=== PATIENT | male | born 1950 | race Caucasian/White ===

== ENCOUNTER 2017-06-17 11:08 | Observation (INO) | payer OTHER ==
[2017-06-17] MEDS ORDERED: LEVALBUTEROL 1.25 MG/3 ML NEB ONE (11:20)
[2017-06-17] MEDS ORDERED: FUROSEMIDE 40 MG/4 ML VIAL ONE (11:20)
[2017-06-17] MEDS ORDERED: NITROGLYCERIN 1 GM PKT TD ONE (11:33)
[2017-06-17 12:03] LABS: Absolute Lymphocytes (CBC) 1.6 K/uL (0.7-4.9); Absolute Neutrophil 8.3 K/uL (1.8-8.0); Basophils % 0.7 % (0-1.3); Eosinophils % 0.2 % (0-4.4); Hematocrit 31.6 % (39.6-49.0); Lymphocytes % 14.5 % (15.3-44.8); MCH 17.5 pg (27.0-35.0); MCV 60.8 fL (80-100); MPV 9.4 fL (7.6-11.3); Monocytes % 9.3 % (3.3-12.3); RBC Red Blood Cell Count 5.19 M/uL (4.33-5.43)
--- NOTE | 2017-06-17 12:09 | RAD REPORT ---
EXAM DESCRIPTION: RAD - Chest Single View - 06/17/2017 12:01 pm CLINICAL HISTORY: Cough, dyspnea COMPARISON: 05/03/2017 FINDINGS: Portable technique limits examination quality. Moderate pulmonary edema is present. The heart is moderately enlarged in size. Trace pleural fluid. N o displaced fractures. IMPRESSION: Moderate CHF/ volume overload.
--- NOTE | 2017-06-17 12:54 | EDPHYS ---
Physician Documentation [facility] Name: Mark Terrell Age: 66 yrs Sex: Male : 1950 Arrival Date: 06/17/2017 Time: 11:07 Bed 5 Private MD: ED Physician Ryan Vasquez HPI: 06/17 11:15 This 66 yrs old Male presents to ER via Unassigned with complaints of rn Breathing Difficulty. 11:15 The patient has shortness of breath at rest, with light activity. Onset: The rn symptoms/episode began/occurred 1 week(s) ago. Duration: The symptoms are continuous. The patient's shortness of breath is aggravated by exertion, light activity, supine position, talking, walking. Severity of symptoms: At their worst the symptoms were moderate in the emergency department the symptoms are unchanged. The patient has experienced similar episodes in the past. The patient has not recently seen a physician. States ran out of lasix 4-5 days ago, increased swelling and sob, also with COPD, no oxygen at home. . Historical: - Allergies: 11:17 Benadryl; sv 11:17 PENICILLINS; sv - Home Meds: 11:17 Albuterol Nebulizer [Active]; Lasix Oral [Active]; sv - PMHx: 11:17 Aneurysm; BRAIN; CHF; COPD; Hypertension; Prostate cancer; sv - Family history:: not pertinent. - Social history:: Smoking status: Patient uses tobacco products, smokes one pack cigarettes per day. - Hospitalizations: : No recent hospitalization is reported. ROS: 11:15 Constitutional: Negative for fever, chills, and weight loss, Eyes: Negative for injury, rn pain, redness, and discharge, Cardiovascular: Negative for chest pain, palpitations Respiratory: Negative for pleuritic chest pain Abdomen/GI: Negative for abdominal pain, nausea, vomiting, diarrhea, and constipation, Back: Negative for injury and pain, MS/Extremity: Negative for injury and deformity, Skin: Negative for injury, rash, and discoloration, Neuro: Negative for headache, numbness, tingling, and seizure. Exam: 11:15 Constitutional: This is a well developed, well nourished patient who is awake, alert, rn and in no acute distress. Sitting upright with mild tachypnea. Head/Face: Normocephalic, atraumatic. Eyes: Pupils equal round and reactive to light, extra-ocular motions intact. Lids and lashes normal. Conjunctiva and sclera are non-icteric and not injected. Cornea within normal limits. Periorbital areas with no swelling, redness, or edema. Neck: Trachea midline, no thyromegaly or masses palpated, and no cervical lymphadenopathy. Supple, full range of motion without nuchal rigidity, or vertebral point tenderness. No Meningismus. Cardiovascular: Regular rate and rhythm with a normal S1 and S2. No gallops, murmurs, or rubs. Normal PMI, no JVD. No pulse deficits. Respiratory: + coarse breath sounds bilateral bases R>L with faint wheezing, mild tachypnea Abdomen/GI: Soft, non-tender, with normal bowel sounds. No distension or tympany. No guarding or rebound. No evidence of tenderness throughout. MS/ Extremity: Pulses equal, no cyanosis. Neurovascular intact. Full, normal range of motion. Equal circumference. 3+ pitting edema to bilateral knees. Neuro: Awake and alert, GCS 15, oriented to person, place, time, and situation. Cranial nerves II-XII grossly intact. Motor strength 5/5 in all extremities. Sensory grossly intact. Cerebellar exam normal. Vital Signs: 11:11 BP 204 / 136; Pulse 98; Resp 18; Pulse Ox 96% on R/A; ag 11:15 Temp 98(O); sv 11:49 BP 182 / 125; Pulse 91; Resp 20; Pulse Ox 96% on R/A; sv 12:48 BP 171 / 110; Pulse 90; Resp 20; Pulse Ox 93% on R/A; mh5 13:42 BP 188 / 125; Pulse 99; Resp 18; Pulse Ox 100% ; sv 15:08 BP 198 / 104; Pulse 86; Resp 20; Pulse Ox 95% on R/A; sv MDM: 11:11 Patient medically screened. rn 12:52 Differential diagnosis: Anemia Anxiety Reaction Bronchitis CHF exacerbation, Chronic rn Obstructive Pulmonary Disease Myocardial Infarction Pneumothorax pulmonary edema, reactive airway disease. Data reviewed: vital signs, nurses notes, lab test result(s), EKG, radiologic studies, plain films, and as a result, I will admit patient. Counseling: I had a detailed discussion with the patient and/or guardian regarding: the historical points, exam findings, and any diagnostic results supporting the discharge/admit diagnosis, lab results, radiology results, the need for further work-up and treatment in the hospital. Response to treatment: the patient's symptoms have mildly improved after treatment, and as a result, I will admit patient. Admission orders: after a detailed discussion of the patient's condition and case, the admit orders are written by me. 06/17 11:12 Order name: Blood Culture Adult (2) rn 06/17 11:12 Order name: BMP rn 06/17 11:12 Order name: BNP rn 06/17 11:12 Order name: CBC with Diff rn 06/17 11:12 Order name: Troponin (emerg Dept Use Only) rn 06/17 11:39 Order name: Basic Metabolic Panel [facility] 06/17 11:12 Order name: XRAY CXR (1 view); Complete Time: 12:10 rn 06/17 11:39 Order name: Blood Culture [facility] 06/17 11:39 Order name: BNP B-Type Natriuretic Peptide [facility] 06/17 11:39 Order name: CBC with Automated Diff [facility] 06/17 11:39 Order name: Troponin (Emerg Dept Use Only); Complete Time: 12:41 EDMS 06/17 12:04 Order name: CBC Smear Scan [facility] 06/17 13:16 Order name: Manual Differential [facility] 06/17 11:12 Order name: EKG; Complete Time: 11:42 rn 06/17 11:12 Order name: Cardiac monitoring; Complete Time: 12:13 rn 06/17 11:12 Order name: EKG - Nurse/Tech; Complete Time: 12:13 rn 06/17 11:12 Order name: IV Saline Lock; Complete Time: 12:14 rn 06/17 11:12 Order name: Labs collected and sent; Complete Time: 12:14 rn 06/17 11:12 Order name: O2 Per Protocol; Complete Time: 12:14 rn 06/17 11:12 Order name: O2 Sat Monitoring; Complete Time: 12:14 rn Administered Medications: 11:32 Drug: Lasix 40 mg Route: IVP; Site: left antecubital; sv 12:13 Follow up: Response: No adverse reaction sv 11:32 Drug: Xopenex 1.25 mg Route: Inhalation; sv 11:32 Drug: Nitro-Bid Ointment 2 % 1 inches Route: Transdermal; Site: anterior chest wall; sv Disposition: 06/17/17 12:53 Hospitalization ordered by Bibi De León for Observation. Preliminary diagnosis are Unspecified combined systolic (congestive) and diastolic (congestive) heart failure, Chronic obstructive pulmonary disease with (acute) exacerbation, Dyspnea, unspecified. - Bed requested for Telemetry/MedSurg (observation). - Status is Observation. sv - Condition is Stable. - Problem is an acute exacerbation. - Symptoms have improved. UTI on Admission? No Signatures: Dispatcher [employer] EDMS Nati Marquez RN RN sv Woody, Diana, RN RN Ryan Vasquez MD MD corner bead operator: (The following items were deleted from the chart) 11:45 11:41 Chest Single View ordered. [facility]
--- NOTE | 2017-06-17 12:54 | ER ---
Nurse's Notes [facility] Name: Mark Terrell Age: 66 yrs Sex: Male : 1950 Arrival Date: 06/17/2017 Time: 11:07 Bed 5 Private MD: Diagnosis: Unspecified combined systolic (congestive) and diastolic (congestive) heart failure;Chronic obstructive pulmonary disease with (acute) exacerbation;Dyspnea, unspecified Presentation: 06/17 11:04 Presenting complaint: EMS states: c/o dyspnea. Pt has been out of Lasix for 4 days. 4+ sv pitting edema BLE. Rhonchi to right lung and left lung clear. A \\T\\ A treatment. BP 195/126 94% RA BS-195 Temp 98.7 20G L AC. Transition of care: patient was not received from another setting of care. Onset of symptoms was June 17, 2017. Care prior to arrival: Medication(s) given: Albuterol Neb x 1, Atrovent Neb x 1, IV initiated. 20 GA, in the right antecubital area, Glucose check: 195 Med neb given. 11:04 Method Of Arrival: EMS: [facility] sv 11:04 Acuity: ARIEL 2 sv Triage Assessment: 11:10 General: Appears uncomfortable, slender, Behavior is calm, cooperative, appropriate for sv age. Pain: Denies pain. EENT: No signs and/or symptoms were reported regarding the EENT system. Neuro: Level of Consciousness is awake, alert, obeys commands, Oriented to person, place, time, situation, Moves all extremities. Full function Speech is normal. Cardiovascular: Heart tones S1 S2 present Patient's skin is warm and dry. Pulses are 3+ in right radial artery and left radial artery Chest pain is denied. Respiratory: Reports shortness of breath at rest on exertion since "couple of days" cough that is non-productive, labored breathing Airway is patent Respiratory effort is even, labored, Respiratory pattern is symmetrical, tachypnea Breath sounds are coarse bilaterally. Onset: The symptoms/episode began/occurred "couple of days ago", the patient has moderate shortness of breath. GI: No signs and/or symptoms were reported involving the gastrointestinal system. Derm: Skin is normal. Historical: - Allergies: 11:17 Benadryl; sv 11:17 PENICILLINS; sv - Home Meds: 11:17 Albuterol Nebulizer [Active]; Lasix Oral [Active]; sv - PMHx: 11:17 Aneurysm; BRAIN; CHF; COPD; Hypertension; Prostate cancer; sv - Family history:: not pertinent. - Social history:: Smoking status: Patient uses tobacco products, smokes one pack cigarettes per day. - Hospitalizations: : No recent hospitalization is reported. Screenin:10 Abuse screen: Denies threats or abuse. Denies injuries from another. Nutritional sv screening: No deficits noted. Tuberculosis screening: No symptoms or risk factors identified. Fall Risk None identified. Assessment: 11:30 Reassessment: See triage assessment. sv 12:32 Reassessment: Patient appears in no apparent distress at this time. No changes from sv previously documented assessment. Patient and/or family updated on plan of care and expected duration. Pain level reassessed. Patient is alert, oriented x 3, equal unlabored respirations, skin warm/dry/pink. 13:23 Reassessment: Patient appears in no apparent distress at this time. No changes from sv previously documented assessment. Patient and/or family updated on plan of care and expected duration. Pain level reassessed. Patient is alert, oriented x 3, equal unlabored respirations, skin warm/dry/pink. 13:42 Reassessment: Dr De León at the bedside. sv 15:08 Reassessment: Patient appears in no apparent distress at this time. Patient and/or sv family updated on plan of care and expected duration. Pain level reassessed. Patient is alert, oriented x 3, equal unlabored respirations, skin warm/dry/pink. Angelique METZ to call back for report. Vital Signs: 11:11 BP 204 / 136; Pulse 98; Resp 18; Pulse Ox 96% on R/A; ag 11:15 Temp 98(O); sv 11:49 BP 182 / 125; Pulse 91; Resp 20; Pulse Ox 96% on R/A; sv 12:48 BP 171 / 110; Pulse 90; Resp 20; Pulse Ox 93% on R/A; mh5 13:42 BP 188 / 125; Pulse 99; Resp 18; Pulse Ox 100% ; sv 15:08 BP 198 / 104; Pulse 86; Resp 20; Pulse Ox 95% on R/A; sv ED Course: 11:04 Maintain EMS IV. Dressing intact. Good blood return noted. Site clean \\T\\ dry. Gauge \\T\\ sv site: 20G L AC. 11:07 Patient arrived in ED. sv 11:07 Nati Marquez RN is Primary Nurse. sv 11:07 Ryan Vasquez MD is Attending Physician. iw 11:10 Arm band placed on right wrist. sv 11:10 Patient has correct armband on for positive identification. Placed in gown. Bed in low sv position. Call light in reach. Side rails up X2. Pulse ox on. NIBP on. Door closed. Head of bed elevated. 11:16 Triage completed. sv 11:34 EKG done, by restoration technician. reviewed by Ryan Vasquez MD. vh 11:49 X-ray(s) taken. sv 11:54 X-ray completed. Portable x-ray completed in exam room. Patient tolerated procedure sw well. 11:57 XRAY CXR (1 view) In Process Unspecified. EDMS 12:53 Bibi De León MD is Hospitalizing Provider. rn 13:24 Awaiting bed assignment. sv 15:24 No provider procedures requiring assistance completed. Patient admitted, IV remains in sv place. intact. Administered Medications: 11:32 Drug: Lasix 40 mg Route: IVP; Site: left antecubital; sv 12:13 Follow up: Response: No adverse reaction sv 11:32 Drug: Xopenex 1.25 mg Route: Inhalation; sv 11:32 Drug: Nitro-Bid Ointment 2 % 1 inches Route: Transdermal; Site: anterior chest wall; sv Output: 12:02 Urine: 600ml (Voided); Total: 600ml. sv 12:48 Urine: 600ml (Voided); Total: 1200ml. ag 14:13 Urine: 800ml (Voided); Total: 2000ml. ag Outcome: 12:53 Decision to Hospitalize by Provider. rn 15:25 Admitted to Tele accompanied by tech, via stretcher, room 225, with chart, Report sv called to Angelique METZ 15:25 Condition: stable 15:25 Instructed on the need for admit. 15:36 Patient left the ED. sv Signatures: Dispatcher [employer] EDMS Nati Marquez RN RN sv Williams, Irene, RN RN iw Nieto, Roman, MD MD rn Harrell, Venessa Melissa Molina Shannon sw Martinez, Maria [facility] Corrections: (The following items were deleted from the chart) 13:23 11:04 Presenting complaint: EMS states: c/o dyspnea. Pt has been out of Lasix for 4 sv days. 4+ pitting edema BLE. Rhonchi to right lung and left lung clear. A \\T\\ A treatment. BP 195/126 94% RA BS-195 Temp 98.7 20G R AC sv 15:25 15:08 Reassessment: Patient appears in no apparent distress at this time. Patient sv and/or family updated on plan of care and expected duration. Pain level reassessed. Patient is alert, oriented x 3, equal unlabored respirations, skin warm/dry/pink. sv
[2017-06-17] MEDS ORDERED: ACETAMINOPHEN 500 MG TAB PO PRN (13:14)
[2017-06-17] MEDS ORDERED: ALBUTEROL 2.5 MG/3 ML NEB SOL NEB PRN (13:14)
[2017-06-17] MEDS ORDERED: ONDANSETRON 4 MG/2 ML VIAL IV PRN (13:14)
[2017-06-17] MEDS ORDERED: IPRATROPIUM BROM 0.5MG/2.5ML NEB PRN (13:14)
[2017-06-17 13:15] LABS: Platelet Estimate ADEQ
[2017-06-17 13:16] LABS: Anisocytosis 2+; Blood Morphology Comment NOTED (NOT SEEN); Elliptocytes 1+; Hypochromasia 2+
[2017-06-17 13:38] LABS: Potassium 3.6 mEq/L (3.6-5.0)
[2017-06-17] MEDS ORDERED: GLUCAGON 1 MG/VIAL IM PRN (14:21)
[2017-06-17] MEDS ORDERED: D50W 25 GM/50 ML SYRINGE IV PRN (14:21)
[2017-06-17] MEDS: INSULIN -REGULAR HUMAN 50 UNIT/0.5 ML ML SQ SCH ×2 (16:12→21:00)
[2017-06-17] MEDS: METHYLPREDNISOLONE 40 MG INJ IV SCH (16:12)
[2017-06-17] MEDS: FUROSEMIDE 40 MG/4 ML VIAL IV SCH (16:13)
--- NOTE | 2017-06-17 16:28 | EKG ---
Test Date: 2017-06-17 Test Time: 11:28:40 It Program Auditor: MARYELLEN MEASUREMENT RESULTS: Intervals: Rate: 90 MI: 142 QRSD: 112 QT: 416 QTc: 508 [place]: P: 80 MI: 142 QRS: 93 T: 49 INTERPRETIVE STATEMENTS: Sinus rhythm with occasional premature ventricular complexes Rightward axis Prolonged QT Abnormal ECG Compared to ECG 05/03/2017 06:32:45 Ventricular premature complex(es) now present Right-axis deviation now present Short MI interval no longer present Electronically Signed On 06-17-17 16:27:29 CDT by Jitendra Willams
[2017-06-17] MEDS ORDERED: ENOXAPARIN 40 MG/0.4 ML SQ SCH (17:00)
[2017-06-17 17:02] VITALS: BMI 26.9
[2017-06-17] MEDS: HYDRALAZINE HCL 20 MG/ML VIAL IV PRN ×2 (17:17→23:27)
[2017-06-17] MEDS ORDERED: POTASSIUM CL SA 10 MEQ TAB PO ONE (17:30)
[2017-06-17 18:24] LABS: Urine Appearance CLEAR; Urine Bilirubin NEGATIVE (NEG); Urine Blood TRACE (NEG); Urine Color YELLOW; Urine Glucose NEGATIVE (NEG); Urine Microscopic Reflex ORDER UMIC; Urine Protein TRACE (NEG); Urine Specific Gravity 1.015 (1.005-1.030); Urine Urobilinogen 0.2 mg/dL (0.2-1.0)
[2017-06-17 18:28] LABS: Urine Bacteria <20 /HPF (NONE SEEN); Urine Culture Reflex Order NOT NEEDED; Urine RBC <5 /HPF (NONE SEEN)
[2017-06-17] MEDS: METOPROLOL TAR 50 MG TAB PO SCH (20:24)
[2017-06-17] MEDS: MELATONIN 5 MG TABLET PO SCH (23:46)
[2017-06-18] MEDS: METHYLPREDNISOLONE 40 MG INJ IV SCH ×2 (01:00→09:16)
--- NOTE | 2017-06-18 01:12 | HP ---
Date of Admission: 06/17/2017 Primary Care Physician: HUMAIRA. Consultants: Dr. Porter, Cardiology. Code Status: Full. Chief Complaint: Shortness of breath. History Of Present Illness: The patient is a 66-year-old male with past medical history of COPD, congestive heart failure with EF 45%, systolic dysfunction, history of prostate cancer, hypertension, brain aneurysm, noncompliance, diabetes, and multiple other comorbid conditions, who was recently admitted to the [facility] and was diuresed for heart failure and discharged. The patient states that they were supposed to mail him his Lasix; however, he has run out over the past couple of weeks and since then has been short of breath. The patient also reports increased swelling of his legs. The patient denies any chest pain. The patient's symptoms are constant, moderate, and progressively worsening. The patient came into the ER for further evaluation. His stress of breath is improved with sitting up right. His workup revealed white count of 11. His chest x-ray showed moderate CHF, volume overload. The patient was then referred for admission. He was given Lasix 40 mg IV x1. When seen in the ER, the patient was awake, alert, and oriented x3, in some mild distress. Past Medical History: Diabetes, history of prostate cancer, hypertension, history of brain aneurysm, CHF, systolic dysfunction, COPD, noncompliance, coronary artery disease, GERD, anemia, and hyperlipidemia. Surgical History: Surgery for brain aneurysm, chronic stent x3 to LAD and RCA in February 2016, prostate surgery, toe surgery, right great toe when he was a child, and heart catheterization with 3 stents, LAD and RCA. Allergies: TO BENADRYL AND PENICILLIN. Medications: Reviewed. Social History: The patient smokes half a pack per day and previously was smoking 3 packs per day. The patient has been smoking for the past 50 years. No alcohol use or illicit drug use. The patient lives at home, states that there is a young couple that lives with him, mostly independent. Does not use any assistive ambulatory devices. Family History: Father had brain cancer. Mother had pancreatic cancer. Brother had lung cancer. Review of Systems: An 11-point system reviewed, negative except as per HPI. Physical Examination: Vital Signs: Temperature 98, heart rate 98, blood pressure 204/136, respirations 18, and O2 96% on room air. General: Awake, alert, and oriented x3, in some mild distress. Appears older than stated age, ill-appearing male. HEENT: Normocephalic, atraumatic. PERRLA. EOMI. Moist mucous membranes. Poor dentition. Oropharynx is clear. Conjunctivae anicteric. Neck: Supple. Trachea midline. CV: S1 and S2. Peripheral pulses are weak bilaterally. No murmurs. Respiratory: Diminished breath sounds. Some crackles heard at the bases. No wheezing. The patient is slightly tachypneic. No use of accessory muscles. Gastrointestinal: Abdomen is soft, nontender, and nondistended. Positive bowel sounds. No guarding or rigidity. Extremities: No clubbing, cyanosis. The patient does have lower extremity edema. Skin: No rashes. Normal skin turgor. Psych: Mood is okay. Affect is full. Insight and judgment are fair. Neuro: Cranial nerves 2-12 intact grossly. No focal neurological deficits. Strength is 5/5 in bilateral upper and lower extremities. Sensation intact to light touch. Laboratory Data: Sodium 137, potassium 2.6, chloride 108, CO2 20, BUN 14, creatinine 1.19, glucose 186, and calcium 8.5. Troponin 0.05. BNP 1652. WBC 11, H and H 9.1 and 31.6, and platelets 256, neutrophils 75%. Chest x-ray shows moderate CHF and volume overload, personally reviewed. Assessment: A 66-year-old male with; 1. Acute congestive heart failure exacerbation with systolic dysfunction. We will continue with congestive heart failure guidelines, IV diuresis with Lasix. We will consult Cardiology. The patient patient's last echocardiogram was in January of 2017. EF was 45-49%, showed ventricular hypertrophy and pulmonary hypertension. 2. Acute chronic obstructive pulmonary disease exacerbation. We will continue with breathing treatments and monitor oxygenation. 3. Mild elevation of troponin, likely secondary to above. 4. Microcytic hypochromic anemia, likely secondary to iron deficiency. The patient does need colonoscopy as an outpatient to rule out any sort of colon malignancy as a cause of this anemia. 5. Diabetes mellitus type 2 with hyperglycemia without long-term use of insulin. We will start him on sliding scale insulin. 6. History of prostate cancer. 7. Uncontrolled hypertension. We will resume home medications, use p.r.n. medications. 8. History of brain aneurysm, status post surgery. 9. Nicotine dependence with cigarette smoking, counseled. 10. Noncompliance. 11. Coronary artery disease, poarch artery and poarch heart, status post stents without angina. 12. Gastroesophageal reflux disease without esophagitis. Continue PPI. 13. Hyperlipidemia, statin. 14. GI and deep venous thrombosis prophylaxis addressed. Plan: Admit the patient to med-surg, place as observation. No living will or medical power of trust and estates attorney SCOTTY Voice ID: [id number] [email or web address]
[2017-06-18 02:19] VITALS: O2SAT 93
[2017-06-18 05:15] LABS: Absolute Lymphocytes (CBC) 1.1 K/uL (0.7-4.9); Absolute Monocytes 0.6 K/uL (0.1-1.3); Absolute Neutrophil 8.1 K/uL (1.8-8.0); Basophils % 0.3 % (0-1.3); Lymphocytes % 10.8 % (15.3-44.8); MCH 17.8 pg (27.0-35.0); MCV 60.5 fL (80-100); MPV 9.4 fL (7.6-11.3); Monocytes % 6.3 % (3.3-12.3); RBC Red Blood Cell Count 5.45 M/uL (4.33-5.43)
[2017-06-18 05:41] LABS: Potassium 4.9 mEq/L (3.6-5.0)
[2017-06-18] MEDS: HYDRALAZINE HCL 20 MG/ML VIAL IV PRN (05:55)
[2017-06-18] MEDS: INSULIN -REGULAR HUMAN 50 UNIT/0.5 ML ML SQ SCH (07:30)
[2017-06-18] MEDS ORDERED: CLOPIDOGREL 75 MG TABLET PO SCH (09:00)
[2017-06-18] MEDS ORDERED: ASPIRIN EC 81 MG TAB PO SCH (09:00)
[2017-06-18] MEDS ORDERED: LISINOPRIL 20 MG TAB PO SCH (09:00)
--- NOTE | 2017-06-18 09:09 | RAD REPORT ---
EXAM DESCRIPTION: RAD - Chest Pa And Lat (2 Views) - 06/18/2017 6:35 am CLINICAL HISTORY: CHF COMPARISON: 06/17/2017 FINDINGS: Since the prior study, the pulmonary edema pattern has significantly improved. Trace pleur al fluid persists. The heart is moderately enlarged in size. No displaced fractures. IMPRESSION: Significant improvement in CHF pattern since prior study.
[2017-06-18] MEDS: METOPROLOL TAR 50 MG TAB PO SCH (09:17)
[2017-06-18] MEDS: FUROSEMIDE 40 MG/4 ML VIAL IV SCH (09:17)
--- NOTE | 2017-06-18 14:37 | CON ---
Chief Complaint: Dyspnea. History Of Present Illness: Mr. Terrell spent several days in the hospital at the [facility] in [place]. Migel soliman was discharged. He was given some medicines for congestive heart failure. He was 1 of numerous ad missions, he has had for volume overload. He was given diuretics to take. He ran out of the [employer]. He does not have the means to purchase any thing, he was waiting on a mail order medicines to co me to his house. They never came, so he spent more than a week without any of the medicines he was d ischarged on, developed pulmonary edema, and came to our emergency room. This is one of numerous adm issions similar to this where Mr. Terrell be unable to obtain medicines and come to the ER for peg tannick as his only option. He is aware that some of the medicines he needs does cost a few dollars, b ut he says he has 90 cents to his name and cannot afford even 4-dollar prescriptions. Physical Examination: General: He is alert, oriented. He is breathing about 20 times per minute, not laboring. Lungs: Reveal some mild basilar crackles. Heart: Reveals a laterally displaced, apical impulse. There seems to be an S3 gallop. No significa nt murmur. Extremities: Diminished distal pulses. Laboratory Data: Chest x-ray reveals cardiomegaly, mild interstitial edema. His hemoglobin is just 9.7. He has had a troponin level of 0.04, which is not unusual with volume overload, cardiac strain conditions. I do not think it indicates an acute coronary syndrome. Recommendation: He is on no home medications. He should be on a low dose of a beta-vlad strong d iuretics, a low dose of an PAWEL inhibitor or angiotensin receptor vlad and aspirin and a statin. Migel soliman has a history of intracoronary stents, history of depressed ejection fraction. He is improving on the present medications being administered by Dr. De León. Thank you very much for your kind referral of Mr. Terrell. I will follow him with you. WAYNE/MARY ANN Voice ID: [id number] Report ID: [id number]
[2017-06-18 15:06] VITALS: BP 155/72; TEMP 98.4
--- NOTE | 2017-06-19 14:28 | DS ---
Date of Discharge: 06/18/2017 Appeals Referee: Dr. Porter with Cardiology. Discharge Diagnoses: 1. Acute congestive heart failure exacerbation, systolic dysfunction, EF 45-49 %. 2. Left ventricular hypertrophy. 3. Pulmonary hypertension. 4. Acute chronic obstructive pulmonary disease exacerbation. 5. Mild elevation of troponin. 6. Microcytic hypochromic anemia, likely secondary to iron deficiency. 7. Diabetes mellitus type 2 with hyperglycemia with long-term use of insulin. 8. History of prostate cancer. 9. Uncontrolled hypertension. 10. History of brain aneurysm status post surgery. 11. Nicotine dependence with cigarette smoking, counseled. 12. Noncompliance. 13. 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 14. Gastroesophageal reflux disease without esophagitis. 15. Hyperlipidemia, mixed. Hospital Course: The patient is a 66-year-old male who has had multiple admissions to the hospital for similar symptoms. The patient recently was discharged from the DC for similar symptoms of CHF. The patient came in with shortness of breath. He stated that he had run out of his Lasix and did not seek medical care to renew his medications. He stated that the DC was supposed to mail it to him, however, did not. The patient was found to have moderate CHF and volume overload on chest x-ray. His BNP was elevated at 1600. He was started on Lasix. He is also having some COPD exacerbation. He was started on breathing treatments and steroids. The patient's repeat chest x-ray showed significant improvement. He did have some mild troponin elevation, which was likely secondary to his CHF and COPD. The patient overall did well. His blood cultures remained negative. The patient has had an echocardiogram in January of 2017, therefore was not repeated. EF at that time was 45-49%. The patient was instructed to follow up with Cardiology on a regular basis. The patient was feeling better. His shortness of breath resolved. He was able to ambulate without any distress. The patient was discharged home. Medications: As per medication reconciliation list. Followup: Follow up with primary care physician in 2-3 days. Follow up with Cardiology, Dr. Willams in 2 weeks. Establish care with GI for outpatient screening colonoscopy. Return to ER for worsening condition. Medications: As per medication reconciliation list. Diet: Low-sodium fluid-restricted diet. Activity: Fall precautions. Physical Examination: General: Awake, alert, oriented, no acute distress. CV: S1, S2. No murmurs. Respiratory: Moving air well bilaterally. No wheezing. Abdomen: Soft, nontender, nondistended. Positive bowel sounds. Extremities: No clubbing, cyanosis. Trace pedal edema. Neurologic: Nonfocal. SA/MODL Voice ID: [id number] Report ID: [id number] [facility]
== END 2017-06-18 11:48 | disposition home or self-care (01) ==
LOC: ER 11:08 → ERHOLD 12:54 → 2ND 15:25
PROVIDERS: ADMIT Family Medicine; ATTEND Family Medicine
DX: I11.0 Hypertensive heart disease with heart failure (principal); I50.21 Acute systolic (congestive) heart failure; J44.1 Chronic obstructive pulmonary disease with (acute) exacerbation; I27.20 Pulmonary hypertension, unspecified; D50.9 Iron deficiency anemia, unspecified; E11.65 Type 2 diabetes mellitus with hyperglycemia; Z79.4 Long term (current) use of insulin; Z85.46 Personal history of malignant neoplasm of prostate; F17.210 Nicotine dependence, cigarettes, uncomplicated; Z91.19 Patient's noncompliance with other medical treatment and regimen; I25.10 Atherosclerotic heart disease of native coronary artery without angina pectoris; Z95.5 Presence of coronary angioplasty implant and graft; K21.9 Gastro-esophageal reflux disease without esophagitis; E78.2 Mixed hyperlipidemia; Z88.0 Allergy status to penicillin
CPT/HCPCS: 36415; 71045; 71046; 80048; 81003; 81015; 82962; 83880; 84484; 85025; 87040; 93005; 94760; 96374; 99285; G0378; J0360; J1650; J2920

== ENCOUNTER 2017-07-07 13:55 | Inpatient (IN) | payer OTHER ==
[2017-07-07] MEDS ORDERED: FUROSEMIDE 40 MG/4 ML VIAL ONE (14:06)
[2017-07-07] MEDS ORDERED: METHYLPREDNISOLONE 125 MG INJ ONE (14:06)
[2017-07-07] MEDS ORDERED: LEVALBUTEROL 1.25 MG/3 ML NEB ONE (14:06)
[2017-07-07] MEDS ORDERED: IPRATROPIUM BROM 0.5MG/2.5ML ONE (14:06)
[2017-07-07 14:34] LABS: Absolute Monocytes 1.9 K/uL (0.1-1.3); Absolute Neutrophil 16.6 K/uL (1.8-8.0); Basophils % 0.8 % (0-1.3); Eosinophils % 0.3 % (0-4.4); Hematocrit 31.6 % (39.6-49.0); Lymphocytes % 13.9 % (15.3-44.8); MCH 17.4 pg (27.0-35.0); MCV 60.8 fL (80-100); MPV 9.1 fL (7.6-11.3); Monocytes % 8.6 % (3.3-12.3)
[2017-07-07 14:40] LABS: Protime INR 1.74
[2017-07-07 14:43] LABS: Magnesium 1.8 mg/dL (1.8-2.5); Potassium 3.9 mEq/L (3.6-5.0)
[2017-07-07] MEDS ORDERED: Levofloxacin 750mg IV 750 MG/150 ML BAG IV ONE (15:10)
--- NOTE | 2017-07-07 15:14 | RAD REPORT ---
EXAM DESCRIPTION: RAD - Chest Single View - 07/07/2017 2:24 pm CLINICAL HISTORY: Dyspnea, shortness of breath COMPARISON: June 18 TECHNIQUE: AP portable chest image was obtained 1411 hours . FINDINGS: No focal consolidation or mass. Interstitial markings are prominent. Vasculature is increa sed over comparison. Heart size is also increased over the comparison. Heart and vascular changes are relatively mild and accentuated by the differences between current AP and prior PA technique. Trache a is midline. No measurable pleural effusion and no pneumothorax. No gross bony abnormality seen. No acute aortic findings suspected. IMPRESSION: Mild CHF/volume overload pattern.
--- NOTE | 2017-07-07 15:37 | EDPHYS ---
Physician Documentation [facility] Name: Mark Terrell Age: 66 yrs Sex: Male : 1950 Arrival Date: 07/07/2017 Time: 13:55 Bed 6 Private MD: ED Physician Ryan Vasquez HPI: 07/07 15:01 This 66 yrs old Male presents to ER via EMS with complaints of Chest Pain > rn 29 y/o. 15:01 The patient or guardian reports chest pain that is located primarily in the substernal rn area. Onset: yesterday. The pain does not radiate. Associated signs and symptoms: Pertinent positives: shortness of breath, Pertinent negatives: dizziness, lower extremity pain, lower extremity swelling, lightheadedness, nausea. The chest pain is described as a heaviness, a pressure, squeezing. Duration: The patient or guardian reports multiple episodes, that are intermittent. Modifying factors: The symptoms are alleviated by nothing. the symptoms are aggravated by nothing. Severity of pain: At its worst the pain was moderate in the emergency department the pain is unchanged. The patient has experienced similar episodes in the past. Reports sob, chest pain that began yesterday, feels like squeezing and tightness, non-radiating, intermittent but constant today. . Historical: - Allergies: 14:12 Benadryl; hb 14:12 PENICILLINS; hb - PMHx: 14:12 Aneurysm; BRAIN; Cancer; PROSTATE; CHF; COPD; Hypertension; Prostate Cancer; hb - Immunization history:: Adult Immunizations. - Family history:: not pertinent. - Social history:: Smoking status: Patient uses tobacco products, smokes one pack cigarettes per day. - Hospitalizations: : No recent hospitalization is reported. ROS: 15:01 Constitutional: Negative for fever, chills, and weight loss, Eyes: Negative for injury, rn pain, redness, and discharge, Neck: Negative for injury, pain, and swelling, Cardiovascular: + chest pain Respiratory: + sob Abdomen/GI: Negative for abdominal pain, nausea, vomiting, diarrhea, and constipation, MS/Extremity: Negative for injury and deformity, Skin: Negative for injury, rash, and discoloration, Neuro: Negative for headache, weakness, numbness, tingling, and seizure. Exam: 15:01 Constitutional: Thin male, + moderate tachypnea Head/Face: Normocephalic, atraumatic. rn Eyes: Pupils equal round and reactive to light, extra-ocular motions intact. Lids and lashes normal. Conjunctiva and sclera are non-icteric and not injected. Cornea within normal limits. Periorbital areas with no swelling, redness, or edema. ENT: dry MM Neck: Trachea midline, no thyromegaly or masses palpated, and no cervical lymphadenopathy. Supple, full range of motion without nuchal rigidity, or vertebral point tenderness. No Meningismus. Cardiovascular: tachycardic, regular Respiratory: + moderate tachypnea, + coarse bilateral breath sounds, faint exp wheezing bilaterally Abdomen/GI: Soft, non-tender, with normal bowel sounds. No distension or tympany. No guarding or rebound. No evidence of tenderness throughout. MS/ Extremity: Pulses equal, no cyanosis. Neurovascular intact. Full, normal range of motion. Equal circumference. Neuro: Awake and alert, GCS 15, oriented to person, place, time, and situation. Cranial nerves II-XII grossly intact. Motor strength 5/5 in all extremities. Sensory grossly intact. Vital Signs: 14:04 BP 157 / 97; Pulse 89; Resp 17; Temp 97.8; Pulse Ox 95% on 2 lpm NC; Weight 89.81 kg tw2 (R); Height 5 ft. 7 in. (170.18 cm); Pain 8/10; 15:14 BP 173 / 96; Pulse 81; Resp 18; Pulse Ox 96% on 2 lpm NC; jb1 16:29 BP 170 / 91; Pulse 90; Resp 18; Pulse Ox 95% on 2 lpm NC; tw2 14:04 Body Mass Index 31.01 (89.81 kg, 170.18 cm) tw2 MDM: 13:56 Patient medically screened. rn 15:35 Differential diagnosis: acute myocardial infarction, acute pericarditis, coronary rn artery disease chest wall pain, costochondritis, esophagitis, gastritis, pleurisy, pneumonia, pneumothorax, stable angina, unstable angina. The patient was given aspirin in the Emergency Department. Data reviewed: vital signs, nurses notes, lab test result(s), EKG, radiologic studies, plain films. 15:36 Counseling: I had a detailed discussion with the patient and/or guardian regarding: the rn historical points, exam findings, and any diagnostic results supporting the discharge/admit diagnosis, lab results, radiology results, the need for further work-up and treatment in the hospital. Admission orders: after a detailed discussion of the patient's condition and case, the admit orders are written by me. 07/07 14:02 Order name: Blood Culture Adult (2) rn 07/07 14:02 Order name: BMP; Complete Time: 14:44 rn 07/07 14:02 Order name: BNP; Complete Time: 15:29 rn 07/07 14:02 Order name: CBC with Diff rn 07/07 14:02 Order name: Magnesium; Complete Time: 14:44 rn 07/07 14:02 Order name: PT-INR; Complete Time: 14:44 rn 07/07 14:02 Order name: XRAY CXR (1 view); Complete Time: 15:29 rn 07/07 14:02 Order name: Ptt, Activated; Complete Time: 14:44 rn 07/07 14:02 Order name: Troponin (emerg Dept Use Only); Complete Time: 14:57 rn 07/07 16:39 Order name: Manual Differential EDMS 07/07 14:02 Order name: EKG; Complete Time: 14:03 rn 07/07 14:02 Order name: Cardiac monitoring; Complete Time: 14:11 rn 07/07 14:02 Order name: EKG - Nurse/Tech; Complete Time: 14:12 rn 07/07 14:02 Order name: IV Saline Lock; Complete Time: 14:12 rn 07/07 14:02 Order name: Labs collected and sent; Complete Time: 14:12 rn 07/07 14:02 Order name: O2 Per Protocol; Complete Time: 14:12 rn 07/07 14:02 Order name: O2 Sat Monitoring; Complete Time: 14:12 rn Administered Medications: 14:11 Drug: SOLU-Medrol 125 mg Route: IVP; Site: left antecubital; hb 15:00 Follow up: Response: No adverse reaction hb 14:11 Drug: Lasix 40 mg Route: IVP; Site: left antecubital; hb 15:00 Follow up: Response: No adverse reaction hb 14:11 Drug: Xopenex (3) 1.25 mg Route: Inhalation; hb 15:00 Follow up: Response: No adverse reaction hb 15:14 Drug: LevaQUIN 750 mg Volume: 150 ml; Route: IVPB; Infused Over: 90 mins; Site: right iw wrist; 16:40 Follow up: Response: No adverse reaction; IV Status: Completed infusion hb 15:38 Not Given (given by EMS VOLLEYBALL PLAYER): Aspirin Chewable Tablet 324 mg PO once; 81 mg tablets x 4 iw Disposition: 07/07/17 15:36 Hospitalization ordered by Dilma Michel for Inpatient Admission. Preliminary diagnosis are Unspecified combined systolic (congestive) and diastolic (congestive) heart failure, Non-ST elevation (NSTEMI) myocardial infarction, Dyspnea, unspecified, Chronic obstructive pulmonary disease with (acute) exacerbation. - Bed requested for Telemetry/MedSurg (Inpatient). - Status is Inpatient Admission. tw2 - Condition is Stable. - Problem is new. - Symptoms have improved. UTI on Admission? No Signatures: Dispatcher [employer] EDMS Lila Becker Irene, RN RN Ryan Vasquez MD MD rn Baxter, Heather, RN RN Ana M Wagner RN RN tw2 Corrections: (The following items were deleted from the chart) 16:19 15:36 Hospitalization Ordered by Dilma Michel MD for Inpatient Admission. Preliminary bd diagnosis is Unspecified combined systolic (congestive) and diastolic (congestive) heart failure; Non-ST elevation (NSTEMI) myocardial infarction; Dyspnea, unspecified; Chronic obstructive pulmonary disease with (acute) exacerbation. Bed requested for Telemetry/MedSurg (Inpatient). Status is Inpatient Admission. Condition is Stable. Problem is new. Symptoms have improved. UTI on Admission? No. rn 17:21 16:19 07/07/2017 15:36 Hospitalization Ordered by Dilma Michel MD for Inpatient tw2 Admission. Preliminary diagnosis is Unspecified combined systolic (congestive) and diastolic (congestive) heart failure; Non-ST elevation (NSTEMI) myocardial infarction; Dyspnea, unspecified; Chronic obstructive pulmonary disease with (acute) exacerbation. Bed requested for Telemetry/MedSurg (Inpatient). Status is Inpatient Admission. Condition is Stable. Problem is new. Symptoms have improved. UTI on Admission? No. bd
--- NOTE | 2017-07-07 15:37 | ER ---
Nurse's Notes [facility] Name: Mark Terrell Age: 66 yrs Sex: Male : 1950 Arrival Date: 07/07/2017 Time: 13:55 Bed 6 Private MD: Diagnosis: Unspecified combined systolic (congestive) and diastolic (congestive) heart failure;Non-ST elevation (NSTEMI) myocardial infarction;Dyspnea, unspecified;Chronic obstructive pulmonary disease with (acute) exacerbation Presentation: 07/07 13:56 Presenting complaint: EMS states: pt states yesterday he felt like somebody kicked him tw2 in the chest and he is still hurting today. 92% RA for him, hx; CHF, COPD, HTN, 160/105 which is good for him he usually runs in the 200's. Transition of care: patient was not received from another setting of care. Onset of symptoms was July 07, 2017. Care prior to arrival: IV initiated. 20 GA, in the left antecubital area. 13:56 Method Of Arrival: EMS: [facility] tw2 13:56 Acuity: ARIEL 3 tw2 14:00 Initial Sepsis Screen: Does the patient meet any 2 criteria? No. Patient's initial hb sepsis screen is negative. Does the patient have a suspected source of infection? No. Patient's initial sepsis screen is negative. Triage Assessment: 14:00 General: Appears distressed, uncomfortable, Behavior is cooperative. Pain: Pain hb currently is 8 out of 10 on a pain scale. EENT: No signs and/or symptoms were reported regarding the EENT system. Neuro: Level of Consciousness is awake, alert, obeys commands, Oriented to person, place, time, situation. Cardiovascular: Capillary refill < 3 seconds Patient's skin is warm and dry. Respiratory: Airway is patent Trachea midline Respiratory effort is even, unlabored, Respiratory pattern is regular, symmetrical, Breath sounds are clear bilaterally. GI: No signs and/or symptoms were reported involving the gastrointestinal system. : No signs and/or symptoms were reported regarding the genitourinary system. Derm: No signs and/or symptoms reported regarding the dermatologic system. Skin is pink, warm \T\ dry. Musculoskeletal: No signs and/or symptoms reported regarding the musculoskeletal system. Historical: - Allergies: 14:12 Benadryl; hb 14:12 PENICILLINS; hb - PMHx: 14:12 Aneurysm; BRAIN; Cancer; PROSTATE; CHF; COPD; Hypertension; Prostate Cancer; hb - Immunization history:: Adult Immunizations. - Family history:: not pertinent. - Social history:: Smoking status: Patient uses tobacco products, smokes one pack cigarettes per day. - Hospitalizations: : No recent hospitalization is reported. Screenin:22 Abuse screen: Denies threats or abuse. Denies injuries from another. Nutritional hb screening: No deficits noted. Tuberculosis screening: No symptoms or risk factors identified. Fall Risk None identified. Assessment: 14:05 General: SEE TRIAGE ASSESSMENT. hb 15:15 Reassessment: pt reports mild improvement in pain, respiration remain even and labored, iw 96% on 2 L NC, VSS, antibiotics infusing freely to right wrist. 16:29 Reassessment: Patient appears in no apparent distress at this time. No changes from tw2 previously documented assessment. Patient and/or family updated on plan of care and expected duration. Pain level reassessed. Patient is alert, oriented x 3, equal unlabored respirations, skin warm/dry/pink. 17:00 Reassessment: Patient appears in no apparent distress at this time. Patient and/or hb family updated on plan of care and expected duration. Pain level reassessed. Patient is alert, oriented x 3, equal unlabored respirations, skin warm/dry/pink. Vital Signs: 14:04 BP 157 / 97; Pulse 89; Resp 17; Temp 97.8; Pulse Ox 95% on 2 lpm NC; Weight 89.81 kg tw2 (R); Height 5 ft. 7 in. (170.18 cm); Pain 8/10; 15:14 BP 173 / 96; Pulse 81; Resp 18; Pulse Ox 96% on 2 lpm NC; jb1 16:29 BP 170 / 91; Pulse 90; Resp 18; Pulse Ox 95% on 2 lpm NC; tw2 14:04 Body Mass Index 31.01 (89.81 kg, 170.18 cm) tw2 ED Course: 13:55 Patient arrived in ED. tw2 13:56 Ryan Vasquez MD is Attending Physician. rn 14:00 Patient has correct armband on for positive identification. Placed in gown. Bed in low hb position. Call light in reach. Side rails up X2. electronic security technician on. Pulse ox on. BAKARIBP on. 14:04 Triage completed. tw2 14:10 Arm band placed on right wrist. hb 14:11 Meri Salcedo, RN is Primary Nurse. hb 14:14 Maintain EMS IV. Dressing intact. Good blood return noted. Site clean \T\ dry. Gauge \T\ hb site: 20g LEFT AC. 14:15 Inserted saline lock: 20 gauge in right forearm, using aseptic technique. Blood hb collected. 14:15 Initial lab(s) drawn, by me, sent to lab. First set of blood cultures drawn by me. hb 14:19 EKG done, by maintenance department technician. reviewed by Ryan Vasquez MD. at1 14:24 XRAY CXR (1 view) In Process Unspecified. EDMS 14:59 Notified ED physician of a critical lab result(s). trop=14.07. iw 15:36 Dilma Michel MD is Hospitalizing Provider. rn 17:15 No provider procedures requiring assistance completed. Patient admitted, IV remains in hb place. Oxygen administration via nasal cannula. Administered Medications: 14:11 Drug: SOLU-Medrol 125 mg Route: IVP; Site: left antecubital; hb 15:00 Follow up: Response: No adverse reaction hb 14:11 Drug: Lasix 40 mg Route: IVP; Site: left antecubital; hb 15:00 Follow up: Response: No adverse reaction hb 14:11 Drug: Xopenex (3) 1.25 mg Route: Inhalation; hb 15:00 Follow up: Response: No adverse reaction hb 15:14 Drug: LevaQUIN 750 mg Volume: 150 ml; Route: IVPB; Infused Over: 90 mins; Site: right iw wrist; 16:40 Follow up: Response: No adverse reaction; IV Status: Completed infusion hb 15:38 Not Given (given by EMS DEVELOPER ARCHITECT): Aspirin Chewable Tablet 324 mg PO once; 81 mg tablets x 4 iw Output: 16:29 Urine: 800ml (Voided); Total: 800ml. tw2 Outcome: 15:36 Decision to Hospitalize by Provider. rn 17:15 Admitted to Med/surg accompanied by venice, via stretcher, room 414, with chart. hb 17:15 Condition: stable 17:15 Instructed on the need for admit, Demonstrated understanding of instructions. 17:21 Patient left the ED. tw2 Signatures: Dispatcher [employer] EDMS Matthew Colón jb1 Sara Enrique RN RN iw Ryan Vasquez MD MD rn gonzales, Amanda, certified legal secretary specialist EKG Tat1 Meri Salcedo RN RN hb Wise, Tara, RN RN tw2 Corrections: (The following items were deleted from the chart) 19:08 19:07 General: Appears hb hb : 15:00 General: Appears distressed, uncomfortable, Behavior is cooperative, hb hb : 15:00 Pain: Pain currently is 8 out of 10 on a pain scale. hb hb : 15:00 EENT: No signs and/or symptoms were reported regarding the EENT system. hb : 15:00 Neuro: Level of Consciousness is awake, alert, obeys commands, Oriented to hb person, place, time, situation, hb : 15:00 Cardiovascular: Capillary refill < 3 seconds Patient's skin is warm and dry. hb : 15:00 Respiratory: Airway is patent Trachea midline Respiratory effort is even, hb unlabored, Respiratory pattern is regular, symmetrical, Breath sounds are clear bilaterally. hb : 15:00 GI: No signs and/or symptoms were reported involving the gastrointestinal system. hb : 15:00 : No signs and/or symptoms were reported regarding the genitourinary system. hb : 15:00 Derm: No signs and/or symptoms reported regarding the dermatologic system. Skin hb is pink, warm \T\ dry. hb : 15:00 Musculoskeletal: No signs and/or symptoms reported regarding the musculoskeletal hb system. hb
[2017-07-07] MEDS ORDERED: ONDANSETRON 4 MG/2 ML VIAL IV PRN (15:59)
[2017-07-07] MEDS ORDERED: ACETAMINOPHEN 500 MG TAB PO PRN (15:59)
[2017-07-07 16:38] LABS: Blood Morphology Comment NOTED (NOT SEEN); Hypochromasia 3+; Platelet Estimate ADEQ; Platelets, Giant 1; Polychromasia SLIGHT
--- NOTE | 2017-07-07 17:57 | EKG ---
Test Date: 2017-07-07 Test Time: 13:59:13 [facility] Dentist: AYSHA MEASUREMENT RESULTS: Intervals: Rate: 84 VA: 146 QRSD: 108 QT: 446 QTc: 527 [place]: P: 81 VA: 146 QRS: 80 T: 24 INTERPRETIVE STATEMENTS: Normal sinus rhythm Prolonged QT Abnormal ECG Compared to ECG 06/17/2017 11:28:40 Ventricular premature complex(es) no longer present Electronically Signed On 07-07-17 17:56:52 CDT by Jitendra Willams
[2017-07-07] MEDS ORDERED: ALBUTEROL INHALER 60 PUFF/8 GM IH PRN (18:39)
--- NOTE | 2017-07-07 18:43 | P.HP ---
Certification for Inpatient Patient admitted to: Inpatient With expected LOS: >2 Midnights Patient will require the following post-hospital care: None Practitioner: I am a practitioner with admitting privileges, knowledge of patient current condition, hospital course, and medical plan of care. Services: Services provided to patient in accordance with Admission requirements found in Title 42 Section 412.3 of the Code of Federal Regulations Patient History Date of Service: 07/08/17 Primary Care Provider: None Reason for admission: Chest Pain History of Present Illness: The patient is a 66-year-old male with past medical history of COPD, congestive heart failure with EF 45%, systolic dysfunction, history of prostate cancer, hypertension, brain aneurysm, noncompliance, diabetes, and multiple other comorbid conditions, who was recently admitted to the [facility] and was diuresed for heart failure and discharged. He is freqeunt flyer to the hospital due to non- compliance with medication. The patient states that they were supposed to mail him his Lasix; however, he cannot afford to pay 500 dollars and this has not filled his medication. He has been short of breath since then. The patient also reports increased swelling of his legs. The patient states he had some chest pain associated with SOB this time. The patient's symptoms are constant, moderate, and progressively worsening. The patient came into the ER for further evaluation. His stress of breath is improved with sitting up right. His workup revealed troponin of 14 and white count of 21. His chest x-ray showed moderate CHF, volume overload. The patient was then referred for admission. He was given Lasix 40 mg IV x1. When seen in the ER, the patient was awake, alert, and oriented x3, in some mild distress. Allergies diphenhydramine HCl [From Benadryl] Allergy (Mild, Verified 07/07/17 21:31) Hives Home Medications: Albuterol Inhaler [Ventolin Inhaler*] 2 puff IH Q6H PRN #1 hfa.aer.ad 06/18/17 Aspirin [Aspirin EC 81 MG] 81 mg PO DAILY #30 tablet. 06/18/17 Clopidogrel Bisulfate [Plavix*] 75 mg PO DAILY #30 tablet 06/18/17 Fluticasone/Salmeterol [Advair 250-50 Diskus] 1 each IH DAILY #30 disk.w.dev Furosemide [Lasix] 40 mg PO DAILY #30 tab 06/18/17 Lisinopril [Prinivil*] 20 mg PO DAILY #30 tab 06/18/17 Metoprolol Tartrate [Lopressor*] 50 mg PO BID #60 tab 06/18/17 Prednisone [Deltasone] 40 mg PO DAILY #5 tab 06/18/17 - Past Medical/Surgical History Has patient received pneumonia vaccine in the past: Yes Diabetic: Yes -: History of prostate cancer -: Hypertension -: History of brain aneurysm requiring surgery -: CHF, systolic dysfunction -: COPD -: Tobacco abuse -: Noncompliance -: Coronary disease, stents x3 to LAD/RCA(Feb 2016) -: Diabetes mellitus type 2 -: GERD -: anemia -: hyperlipidemia -: Prostate surgery -: Brain aneurysm surgery -: Toe surgery R. great toe/childhood -: Heart catheterization-3stents LAD/RCA Psychosocial/ Personal History: He is single, lives alone. He has no children. 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 - Family History Father -: Other (see notes) Notes: BRAIN CA Mother -: Other (see notes) Notes: PANCREATIC CANCER Brother -: Cancer Notes: lung cancer - Social History Smoking Status: Current every day smoker Alcohol use: No CD- Drugs: No Caffeine use: Yes Place of Residence: Home Review of Systems General: As per HPI Physical Examination - Vital Signs Temperature: 97.7 F Blood Pressure: 170/91 Pulse: 90 Respirations: 18 Pulse Ox (%): 96 - Physical Exam General: Alert, Oriented x3, Moderate distress HEENT: Atraumatic Neck: Supple, JVD distended Respiratory: Normal air movement, Crackles/rales Cardiovascular: Regular rate/rhythm, Normal S1 S2 Gastrointestinal: Normal bowel sounds, Soft and benign, Non-distended, No tenderness Musculoskeletal: No tenderness, Swelling Integumentary: No rashes Neurological: Normal gait, Normal speech, Normal strength at 5/5 x4 extr, Normal tone, Normal affect Lymphatics: No axilla or inguinal lymphadenopathy - Studies Laboratory Data (last 24 hrs) 07/07/17 14:15: PT 20.6 H, INR 1.74, APTT 28.3 07/07/17 14:15: WBC 21.6 H*, Hgb 9.1 L, Hct 31.6 L, Plt Count 272 07/07/17 14:15: B-Natriuretic Peptide 3733 H 07/07/17 14:15: Sodium 136, Potassium 3.9, BUN 16, Creatinine 1.25 H, Glucose 149 H, Magnesium 1.8 Assessment and Plan - Problems (Diagnosis) (1) CHF exacerbation Current Visit: No Status: Acute Plan: Acute Worsening -BNP elevated -IV lasix BID -Fluids restriction and 2g NA diet -Cards Consulted. Appreciate Reccs Qualifiers: Heart failure type: combined systolic and diastolic Qualified Code(s): I50.43 - Acute on chronic combined systolic (congestive) and diastolic ( congestive) heart failure (2) NSTEMI (non-ST elevated myocardial infarction) Onset Date: 02/17/17 Current Visit: No Status: Acute Plan: Troponin x1 elevated to 14. Higher than his baseline -Cards Consulted. -Asa, plavix and Lipitor (3) CAD (coronary artery disease) Current Visit: No Status: Chronic Qualifiers: Coronary Disease-Associated Artery/Lesion type: [place] artery [place] vs. transplanted heart: [place] heart Associated angina: with stable angina Qualified Code(s): I25.118 - Atherosclerotic heart disease of [place] coronary artery with other forms of angina pectoris (4) COPD (chronic obstructive pulmonary disease) Onset Date: 03/21/15 Current Visit: No Status: Chronic Qualifiers: COPD type: chronic bronchitis Chronic bronchitis type: mixed simple and mucopurulent Qualified Code(s): J41.8 - Mixed simple and mucopurulent chronic bronchitis (5) Chronic renal disease Onset Date: 03/31/17 Current Visit: No Status: Chronic Qualifiers: Chronic kidney disease stage: stage 3 (moderate) Qualified Code(s): N18.3 - Chronic kidney disease, stage 3 (moderate) (6) Hyperlipidemia Onset Date: 07/19/16 Current Visit: No Status: Chronic Qualifiers: Hyperlipidemia type: mixed hyperlipidemia Qualified Code(s): E78.2 - Mixed hyperlipidemia (7) Hypertension Onset Date: 02/05/16 Current Visit: No Status: Chronic Qualifiers: Hypertension type: essential hypertension Qualified Code(s): I10 - Essential (primary) hypertension (8) Nicotine dependence Onset Date: 04/03/17 Current Visit: No Status: Chronic Qualifiers: Nicotine product type: cigarettes Substance use status: unspecified nicotine-induced disorder Qualified Code(s): F17.219 - Nicotine dependence, cigarettes, with unspecified nicotine-induced disorders (9) Type 2 diabetes mellitus Onset Date: 12/10/16 Current Visit: No Status: Chronic Qualifiers: Diabetes mellitus assistant terminal manager insulin use: without assistant terminal manager use Diabetes mellitus complication status: with kidney complications Diabetes mellitus complication detail: with chronic kidney disease Chronic kidney disease stage : stage 3 (moderate) Qualified Code(s): E11.22 - Type 2 diabetes mellitus with diabetic chronic kidney disease; N18.3 - Chronic kidney disease, stage 3 ( moderate) (10) GERD (gastroesophageal reflux disease) Onset Date: 02/17/17 Current Visit: No Status: Chronic Qualifiers: Esophagitis presence: without esophagitis Qualified Code(s): K21.9 - Gastro -esophageal reflux disease without esophagitis (11) Noncompliance Onset Date: 03/18/16 Current Visit: No Status: Chronic Discharge Plan: Other Plan to discharge in: 48 Hours - Advance Directives Does patient have a Living Will: No Does patient have a Durable POA for Healthcare: No - Code Status/Comfort Care Code Status Assessed: Yes Critical Care: No
[2017-07-07 19:11] LABS: Urine Appearance CLEAR; Urine Bilirubin NEGATIVE (NEG); Urine Blood TRACE (NEG); Urine Color YELLOW; Urine Glucose NEGATIVE (NEG); Urine Protein TRACE (NEG); Urine Specific Gravity <=1.005 (1.005-1.030); Urine Urobilinogen 0.2 mg/dL (0.2-1.0)
[2017-07-07 19:30] LABS: Urine Microscopic Reflex ORDER UMIC
[2017-07-07 19:42] LABS: Urine Bacteria NONE SEEN /HPF (NONE SEEN); Urine Culture Reflex Order NOT NEEDED
[2017-07-07] MEDS: ATORVASTATIN 80 MG TAB PO SCH (21:31)
[2017-07-07] MEDS: METOPROLOL TAR 50 MG TAB PO SCH (21:31)
[2017-07-08 03:42] LABS: Absolute Lymphocytes (CBC) 1.4 K/uL (0.7-4.9); Absolute Monocytes 0.5 K/uL (0.1-1.3); Absolute Neutrophil 10.8 K/uL (1.8-8.0); Basophils % 0.1 % (0-1.3); Lymphocytes % 11.3 % (15.3-44.8); MCH 17.3 pg (27.0-35.0); MPV 9.1 fL (7.6-11.3); Monocytes % 3.9 % (3.3-12.3); RBC Red Blood Cell Count 5.42 M/uL (4.33-5.43)
[2017-07-08 04:01] LABS: Albumin 3.3 g/dL (3.2-5.5); Bilirubin Total 0.9 mg/dL (0.3-1.2); Potassium 4.9 mEq/L (3.6-5.0); Protein, Total 6.3 g/dL (6.0-8.3)
[2017-07-08] MEDS: ASPIRIN EC 81 MG TAB PO SCH (09:00)
[2017-07-08] MEDS: LISINOPRIL 20 MG TAB PO SCH (09:00)
[2017-07-08] MEDS: METOPROLOL TAR 50 MG TAB PO SCH ×2 (09:00→21:10)
[2017-07-08] MEDS: DULERA 100/5 (MOMETASONE/FORMOTEROL) INHALER IH SCH (09:00)
[2017-07-08] MEDS: FUROSEMIDE 40 MG/4 ML VIAL IV SCH ×3 (09:00→17:14)
[2017-07-08] MEDS: predniSONE 20 MG TAB PO SCH (09:00)
--- NOTE | 2017-07-08 11:55 | EKG ---
Test Date: 2017-07-08 Test Time: 08:53:24 Monotype Operator: MARYELLEN MEASUREMENT RESULTS: Intervals: Rate: 82 IN: 134 QRSD: 114 QT: 454 QTc: 530 [place]: P: 66 IN: 134 QRS: 62 T: -83 INTERPRETIVE STATEMENTS: Normal sinus rhythm Possible Inferior infarct, age undetermined ST & T wave abnormality, consider lateral ischemia Prolonged QT Abnormal ECG Compared to ECG 07/07/2017 13:59:13 Myocardial infarct finding now present ST (T wave) deviation now present Possible ischemia now present Electronically Signed On 07-08-17 11:54:02 CDT by Cyrus Porter
--- NOTE | 2017-07-08 17:44 | P.PN ---
Subjective Date of Service: 07/08/17 Primary Care Provider: None Chief Complaint: Chest Pain Patient seen and examined at bedside with RN. Chart reviewed. Case discussed with cardiology. Currently patient is scheduled for heart catheterization tomorrow. No complaints to offer states that he feels much better than before Review of Systems General: As per HPI Physical Examination - Vital Signs Temperature: 97.7 F Blood Pressure: 170/91 Pulse: 90 Respirations: 18 Pulse Ox (%): 96 - Physical Exam General: Alert, In no apparent distress HEENT: Atraumatic, PERRLA, EOMI Neck: Supple, JVD not distended Respiratory: Normal air movement, Crackles/rales Cardiovascular: Regular rate/rhythm, Normal S1 S2 Gastrointestinal: Normal bowel sounds, No tenderness Musculoskeletal: No tenderness Integumentary: No rashes Neurological: Normal speech, Normal tone, Normal affect Lymphatics: No axilla or inguinal lymphadenopathy - Studies Medications List Reviewed: Yes Assessment & Plan - Problems (Diagnosis) (1) CHF exacerbation Current Visit: No Status: Acute Plan: Acute Worsening -BNP elevated -IV lasix BID -Fluids restriction and 2g NA diet -Cards Consulted. Appreciate Reccs Qualifiers: Heart failure type: combined systolic and diastolic Qualified Code(s): I50.43 - Acute on chronic combined systolic (congestive) and diastolic ( congestive) heart failure (2) NSTEMI (non-ST elevated myocardial infarction) Onset Date: 02/17/17 Current Visit: No Status: Acute Plan: Troponin x1 elevated to 14. Higher than his baseline -Cards Consulted. Reccs appreciated -Cardiac Catherization saud -Asa, plavix and Lipitor (3) CAD (coronary artery disease) Current Visit: No Status: Chronic Qualifiers: Coronary Disease-Associated Artery/Lesion type: [place] artery [place] vs. transplanted heart: [place] heart Associated angina: with stable angina Qualified Code(s): I25.118 - Atherosclerotic heart disease of [place] coronary artery with other forms of angina pectoris (4) COPD (chronic obstructive pulmonary disease) Onset Date: 03/21/15 Current Visit: No Status: Chronic Qualifiers: COPD type: chronic bronchitis Chronic bronchitis type: mixed simple and mucopurulent Qualified Code(s): J41.8 - Mixed simple and mucopurulent chronic bronchitis (5) Chronic renal disease Onset Date: 03/31/17 Current Visit: No Status: Chronic Qualifiers: Chronic kidney disease stage: stage 3 (moderate) Qualified Code(s): N18.3 - Chronic kidney disease, stage 3 (moderate) (6) Hyperlipidemia Onset Date: 07/19/16 Current Visit: No Status: Chronic Qualifiers: Hyperlipidemia type: mixed hyperlipidemia Qualified Code(s): E78.2 - Mixed hyperlipidemia (7) Hypertension Onset Date: 02/05/16 Current Visit: No Status: Chronic Qualifiers: Hypertension type: essential hypertension Qualified Code(s): I10 - Essential (primary) hypertension (8) Nicotine dependence Onset Date: 04/03/17 Current Visit: No Status: Chronic Qualifiers: Nicotine product type: cigarettes Substance use status: unspecified nicotine-induced disorder Qualified Code(s): F17.219 - Nicotine dependence, cigarettes, with unspecified nicotine-induced disorders (9) Type 2 diabetes mellitus Onset Date: 12/10/16 Current Visit: No Status: Chronic Qualifiers: Diabetes mellitus long chain beamer insulin use: without residential use Diabetes mellitus complication status: with kidney complications Diabetes mellitus complication detail: with chronic kidney disease Chronic kidney disease stage : stage 3 (moderate) Qualified Code(s): E11.22 - Type 2 diabetes mellitus with diabetic chronic kidney disease; N18.3 - Chronic kidney disease, stage 3 ( moderate) (10) GERD (gastroesophageal reflux disease) Onset Date: 02/17/17 Current Visit: No Status: Chronic Qualifiers: Esophagitis presence: without esophagitis Qualified Code(s): K21.9 - Gastro -esophageal reflux disease without esophagitis (11) Noncompliance Onset Date: 03/18/16 Current Visit: No Status: Chronic
[2017-07-08] MEDS: ATORVASTATIN 80 MG TAB PO SCH (21:10)
[2017-07-09] MEDS ORDERED: HYDROCODONE/APAP 10/325 TAB PO ONE (03:53)
[2017-07-09 04:46] LABS: Absolute Lymphocytes (CBC) 3.2 K/uL (0.7-4.9); Absolute Monocytes 1.7 K/uL (0.1-1.3); Absolute Neutrophil 14.5 K/uL (1.8-8.0); Albumin 3.2 g/dL (3.2-5.5); Basophils % 0.2 % (0-1.3); Bilirubin Total 0.5 mg/dL (0.3-1.2); Hematocrit 32.1 % (39.6-49.0); Lymphocytes % 16.4 % (15.3-44.8); MCH 17.9 pg (27.0-35.0); MCV 60.6 fL (80-100); MPV 9.3 fL (7.6-11.3); Monocytes % 8.5 % (3.3-12.3); Potassium 5.1 mEq/L (3.6-5.0); RBC Red Blood Cell Count 5.29 M/uL (4.33-5.43)
[2017-07-09] MEDS ORDERED: NA CHLORIDE 0.9% 1,000 ML ONE (05:17)
[2017-07-09] MEDS: METOPROLOL TAR 50 MG TAB PO SCH ×2 (05:22→20:39)
[2017-07-09] MEDS: ASPIRIN EC 81 MG TAB PO SCH (05:22)
[2017-07-09] MEDS: LISINOPRIL 20 MG TAB PO SCH (05:24)
[2017-07-09] MEDS ORDERED: HEPA 1000U/500MLS 2,000 UNIT/1,000 ML BAG IV ONE (07:05)
[2017-07-09] MEDS ORDERED: LIDOCAINE 1% 20 ML MDV ONE (07:05)
[2017-07-09] MEDS ORDERED: ACETYLCYST 20% 800 MG/4 ML VIAL PO SCH (07:15)
[2017-07-09] MEDS ORDERED: HEPARIN 5000 UNIT/ML 1 ML VIAL ONE (08:00)
[2017-07-09] MEDS ORDERED: MIDAZOLAM HCL 2 MG/2 ML INJ ONE (08:01)
[2017-07-09] MEDS ORDERED: FENTANYL CITR 100 MCG/2 ML ONE (08:01)
[2017-07-09] MEDS ORDERED: NITROGLYCERIN 100 MCG/ML SYR (for cath lab use only) IV ONE (08:01)
[2017-07-09] MEDS ORDERED: NICARDIPINE HCL 25 MG/10 ML IV ONE (08:01)
[2017-07-09] MEDS ORDERED: NA CHLORIDE 0.9% 50 ML ONE (08:02)
[2017-07-09] MEDS ORDERED: ATROPINE SULF 1 MG/10 ML SYR IV ONE (08:02)
[2017-07-09] MEDS ORDERED: FLUMAZENIL 0.1 MG/ML (5 mL VIAL) IV ONE (08:14)
[2017-07-09] MEDS ORDERED: HEPA 1000U/500MLS 1,000 UNIT/500 ML BAG IV ONE (08:51)
[2017-07-09] MEDS ORDERED: PRASUGREL (EFFIENT) 10 MG TAB ONE (08:59)
[2017-07-09] MEDS: DULERA 100/5 (MOMETASONE/FORMOTEROL) INHALER IH SCH (09:00)
[2017-07-09] MEDS: FUROSEMIDE 40 MG/4 ML VIAL IV SCH (09:00)
[2017-07-09] MEDS: predniSONE 20 MG TAB PO SCH (09:00)
[2017-07-09] MEDS ORDERED: ALBUTEROL 2.5 MG/3 ML NEB SOL ONE (11:36)
[2017-07-09] MEDS ORDERED: IPRATROPIUM BROM 0.5MG/2.5ML ONE (11:37)
--- NOTE | 2017-07-09 11:37 | CON ---
Date of Consultation: 07/08/2017 History Of Present Illness: The patient is a 66-year-old, was admitted to Dr. Michel's service for ch est pain. Admission date was 07/07/2017. The patient was seen on 07/08/2017. Mr. Terrell is a 66- year-old, has a history of coronary artery disease, COPD, hypertension, dyslipidemia, nonadherence to therapy, approximately a year and half ago I put in RCA stent and LAD stent in him. Has had a coupl e of admissions to the hospital for COPD exacerbation. At this time, he comes in with chest pain [facility] for acute coronary syndrome, having troponin of 14 with BNP of 3733. His creatinine is 1.35. C hest x-rays showed some mild CHF and a white count of 21,000, most likely secondary to steroid therap y and pain, described chest pain radiating to the back and both shoulders. No nausea or vomiting. H e had diaphoresis and shortness of breath. Denied PND, orthopnea, pedal edema, palpitation, or synco pe. Past Medical History: As stated above. Allergies: NONE. Review of Systems: Negative. Social History: Positive for tobacco. Family History: Negative for heart disease. Medications: At home include prednisone, aspirin, Plavix, inhalers, Lasix, lisinopril, and metoprolo l. Physical Examination: General: He appeared in no acute distress. Vital Signs: His vital signs are stable. He was afebrile. HEENT: Negative. Neck: Supple without any bruit, lymphadenopathy, or thyromegaly. Chest: Clear to auscultation and percussion. Cardiac: Revealed a regular rhythm and rate with an S4 gallops. No murmurs or rubs. Abdomen: Benign. Extremities: Revealed trace edema. Diagnostic Data: As stated earlier. EKG is nonspecific. Impression And Plan: 1.Non-ST elevation myocardial infarction in a patient with history of coronary artery disease, statu s post LAD and RCA stent, elevated troponin, elevated BNP. He agrees to have a heart catheterization with possible intervention the next day. We will continue his present regimen otherwise. 2.Chronic obstructive pulmonary disease, on prednisone with elevated white count. 3.Nonadherence, noncompliance to therapy. 4.Hypertension. 5.Dyslipidemia. 6.We will continue to follow Mr. Terrell with Dr. Michel. NB/MARY ANN Voice ID: [id number] Report ID: [id number]
--- NOTE | 2017-07-09 13:50 | P.PN ---
Subjective Date of Service: 07/09/17 Primary Care Provider: None Chief Complaint: Chest Pain Patient seen and examined at bedside with RN. Chart reviewed. Case discussed with cardiology. Currently patient is scheduled for heart catheterization today. No complaints to offer states that he feels much better than before Review of Systems General: As per HPI Physical Examination - Vital Signs Temperature: 97.6 F Blood Pressure: 127/81 Pulse: 59 Respirations: 18 Pulse Ox (%): 98 - Physical Exam General: Alert, In no apparent distress HEENT: Atraumatic, PERRLA, EOMI Neck: Supple, JVD not distended Respiratory: Normal air movement, Crackles/rales Cardiovascular: Regular rate/rhythm, Normal S1 S2 Gastrointestinal: Normal bowel sounds, No tenderness Musculoskeletal: No tenderness Integumentary: No rashes Neurological: Normal speech, Normal tone, Normal affect Lymphatics: No axilla or inguinal lymphadenopathy - Studies Medications List Reviewed: Yes Assessment & Plan - Problems (Diagnosis) (1) CHF exacerbation Current Visit: No Status: Acute Plan: Acute Worsening. Resolved now. -Fluids restriction and 2g NA diet -Cards Consulted. Appreciate Reccs Qualifiers: Heart failure type: combined systolic and diastolic Qualified Code(s): I50.43 - Acute on chronic combined systolic (congestive) and diastolic ( congestive) heart failure (2) NSTEMI (non-ST elevated myocardial infarction) Onset Date: 02/17/17 Current Visit: No Status: Acute Plan: Troponin x1 elevated to 14. Higher than his baseline -Cards Consulted. Reccs appreciated -Cardiac Catherization today -Asa, plavix and Lipitor (3) CAD (coronary artery disease) Current Visit: No Status: Chronic Qualifiers: Coronary Disease-Associated Artery/Lesion type: [place] artery [place] vs. transplanted heart: [place] heart Associated angina: with stable angina Qualified Code(s): I25.118 - Atherosclerotic heart disease of [place] coronary artery with other forms of angina pectoris (4) COPD (chronic obstructive pulmonary disease) Onset Date: 03/21/15 Current Visit: No Status: Chronic Qualifiers: COPD type: chronic bronchitis Chronic bronchitis type: mixed simple and mucopurulent Qualified Code(s): J41.8 - Mixed simple and mucopurulent chronic bronchitis (5) Chronic renal disease Onset Date: 03/31/17 Current Visit: No Status: Chronic Qualifiers: Chronic kidney disease stage: stage 3 (moderate) Qualified Code(s): N18.3 - Chronic kidney disease, stage 3 (moderate) (6) Hyperlipidemia Onset Date: 07/19/16 Current Visit: No Status: Chronic Qualifiers: Hyperlipidemia type: mixed hyperlipidemia Qualified Code(s): E78.2 - Mixed hyperlipidemia (7) Hypertension Onset Date: 02/05/16 Current Visit: No Status: Chronic Qualifiers: Hypertension type: essential hypertension Qualified Code(s): I10 - Essential (primary) hypertension (8) Nicotine dependence Onset Date: 04/03/17 Current Visit: No Status: Chronic Qualifiers: Nicotine product type: cigarettes Substance use status: unspecified nicotine-induced disorder Qualified Code(s): F17.219 - Nicotine dependence, cigarettes, with unspecified nicotine-induced disorders (9) Type 2 diabetes mellitus Onset Date: 12/10/16 Current Visit: No Status: Chronic Qualifiers: Diabetes mellitus intermediate insulin use: without oil heaterman use Diabetes mellitus complication status: with kidney complications Diabetes mellitus complication detail: with chronic kidney disease Chronic kidney disease stage : stage 3 (moderate) Qualified Code(s): E11.22 - Type 2 diabetes mellitus with diabetic chronic kidney disease; N18.3 - Chronic kidney disease, stage 3 ( moderate) (10) GERD (gastroesophageal reflux disease) Onset Date: 02/17/17 Current Visit: No Status: Chronic Qualifiers: Esophagitis presence: without esophagitis Qualified Code(s): K21.9 - Gastro -esophageal reflux disease without esophagitis (11) Noncompliance Onset Date: 03/18/16 Current Visit: No Status: Chronic
--- NOTE | 2017-07-09 15:54 | ECHO ---
HEIGHT: 5 ft 7 in WEIGHT: 198 lb 0 oz DATE OF STUDY: 07/08/[address]: 2-DIMENSIONAL: YES M.MODE: YES DOPPLER: YES COLOR FLOW: YES TDS: NO PORTABLE: NO DEFINITY: NO BUBBLE STUDY: NO DIAGNOSIS: NON STEMI CARDIAC HISTORY: CATHERIZATION: YES SURGERY: NO PROSTHETIC VALVE: NO PACEMAKER: NO MEASUREMENTS (cm) DIASTOLIC (NORMALS) SYSTOLIC (NORMALS) IVSd 1.1 (0.6-1.2) LA Diam 4.4 (1.9-4.0) LVEF 30-35% LVIDd 6.0 (3.5-5.7) LVIDs 5.1 (2.0-3.5) %FS 13% LVPWd 1.2 (0.6-1.2) Ao Diam 3.1 (2.0-3.7) 2 DIMENSIONAL ASSESSMENT: RIGHT ATRIUM: DILATED LEFT ATRIUM: DILATED RIGHT VENTRICLE: NORMAL LEFT VENTRICLE: DILATED TRICUSPID VALVE: NORMAL MITRAL VALVE: NORMAL PULMONIC VALVE: NORMAL AORTIC VALVE: SCLEROTIC PERICARDIAL EFFUSION: NONE AORTIC ROOT: NORMAL LEFT VENTRICULAR WALL MOTION: GLOBAL HYPOKINESIS DOPPLER/COLOR FLOW: MILD MITRAL AND TRISCUSPID REGURGITATION. NO AORTIC STENOSIS OR AORTIC REGURGITATION. NORMAL RIGHT VENTRICULAR SYSTOLIC PRESSURE. COMMENTS: DEPRESSED LEFT VENTRICULAR EJECTION FRACTION. DILATED RIGHT ATRIUM, LEFT ATRIUM, AND LEFT VENTRICLE. AORTIC SCLEROSIS WITH NO AORTIC STENOSIS OR AORTIC REGURGITATION. MILD MITRAL AND TRICUSPID REGURGITATION. TECHNOLOGIST: ANTONIA NUNEZ
[2017-07-09] MEDS ORDERED: NITROGLYCERIN 0.4 MG/TAB SL PRN (16:56)
[2017-07-09] MEDS ORDERED: ACETAMINOPHEN 325 MG TABLET PO PRN (16:56)
[2017-07-09] MEDS ORDERED: NA CHLORIDE 0.9% 1,000 ML IV SCH (17:00)
[2017-07-09] MEDS ORDERED: FUROSEMIDE 40 MG/4 ML VIAL IV ONE (17:00)
--- NOTE | 2017-07-09 19:49 | OP ---
Surgeon: Jitendra Willams MD Procedures: Left heart catheterization, coronary angiogram, percutaneous coronary intervention, ball oon angioplasty of the right coronary artery in-stent restenosis, successful. Findings: The patient's LAD stent was widely patent. LAD had 50% lesions throughout it. The circum flex had 50% lesions throughout. The right coronary diffusely diseased in the mid to distal junction . There was an old stent. There is an 80% in-stent stenosis and just distal to the stenosis a 50% n arrowing. Because of Mr. Terrell's propensity to not take any of the medicines prescribed. I elect ed not to put another stent in there, but we did a balloon angioplasty and ended up with an excellent angiographic result. There is less than 10% residual stenosis of both lesions we treated in the rig ht coronary for in-stent and adjacent to the stent restenoses. There was no LV-gram done. Procedure In Detail: The patient was brought to the cath lab radiology technician in a fasting state, sedated with Versed and fentanyl. A right radial artery approach was used. He was prepared and draped in usual sterile fashion. The right radial artery was entered using a 21-gauge needle. A 0.021 inch guidewire used to cannulate the artery. We used a modified Seldinger technique to place a 6-[place] Terumo radial sh eath, flushed it, and gave a radial cocktail consisting of nicardipine, heparin, and nitroglycerin. We angiogramed all the coronary arteries using a TIG catheter. It was guided into position using flu oroscopy and a Glidewire with a short radius J-tip. At the end of the procedure, we made a decision to do an angioplasty of his right coronary, so he was loaded with Angiomax. The activated clotting t timo demonstrated to be more than 300 seconds. We used an exchange technique for each guide catheter we used. The Terumo [place] right catheter failed to engage the ostium and actually developed a twist. It was probably a faulty catheter. We then attempted to cannulate the artery with a 3DRC. This fa iled. Then we cannulated the ostium with an Amplatz AR2 with side holes. This was used to do the re st of the procedure. We used an Emerge 3.0 balloon. We loaded a [place] coronary guidewire into it, cross the lesions, dilated them multiple times up to 14 atmospheres. No stent was deployed mainly be cause we were very concerned that he would not be compliant with taking Plavix for more than a month, and secondarily because the lesion looked pretty good after the balloon angioplasty, so a stent was not clearly indicated. The angiographic result was excellent. At the end of the procedure, all cath eters, balloons, wires were withdrawn, angiograms were obtained, and the radial sheath was flushed, r emoved, and the arteriotomy closed with a TR band. Estimated Blood Loss: 20 cc. Hammer Mill Operator: Carol Bradley. Complications: None. SH/MODL Voice ID: [id number] Report ID: [id number]
[2017-07-09] MEDS: ATORVASTATIN 80 MG TAB PO SCH (20:39)
[2017-07-10 05:07] LABS: Absolute Lymphocytes (CBC) 2.8 K/uL (0.7-4.9); Absolute Monocytes 1.4 K/uL (0.1-1.3); Absolute Neutrophil 9.1 K/uL (1.8-8.0); Basophils % 0.5 % (0-1.3); Eosinophils % 3.4 % (0-4.4); Hematocrit 31.9 % (39.6-49.0); Lymphocytes % 20.1 % (15.3-44.8); MCH 17.6 pg (27.0-35.0); MPV 9.7 fL (7.6-11.3); Monocytes % 10.3 % (3.3-12.3); RBC Red Blood Cell Count 5.28 M/uL (4.33-5.43)
[2017-07-10 05:18] LABS: MCV 60.5 fL (80-100)
[2017-07-10] MEDS ORDERED: ALBUTEROL 2.5 MG/3 ML NEB SOL NEB PRN (05:21)
[2017-07-10 05:23] VITALS: BMI 27.3
[2017-07-10 05:54] LABS: Albumin 3.2 g/dL (3.2-5.5); Bilirubin Total 0.7 mg/dL (0.3-1.2)
[2017-07-10 08:04] VITALS: BP 158/89; TEMP 97
[2017-07-10] MEDS ORDERED: CLOPIDOGREL 75 MG TABLET PO SCH (09:00)
[2017-07-10 09:11] VITALS: O2SAT 94
[2017-07-10] MEDS: predniSONE 20 MG TAB PO SCH (10:01)
[2017-07-10] MEDS: METOPROLOL TAR 50 MG TAB PO SCH (10:01)
[2017-07-10] MEDS: LISINOPRIL 20 MG TAB PO SCH (10:02)
[2017-07-10] MEDS: ASPIRIN EC 81 MG TAB PO SCH (10:02)
[2017-07-10] MEDS: DULERA 100/5 (MOMETASONE/FORMOTEROL) INHALER IH SCH (10:03)
--- NOTE | 2017-07-10 14:13 | P.DS ---
Admission Date: 07/07/17 Discharge Date: 07/10/17 Primary Care Provider: Kacey Disposition: ROUTINE DISCHARGE Discharge Condition: GOOD Reason for Admission: Chest Pain Consultations: Cardiology Procedures: Heart Catherization with Balloon Angioplasty - Problems (1) CHF exacerbation Status: Acute Qualifiers: Heart failure type: combined systolic and diastolic Qualified Code(s): I50.43 - Acute on chronic combined systolic (congestive) and diastolic ( congestive) heart failure (2) NSTEMI (non-ST elevated myocardial infarction) Onset Date: 02/17/17 Status: Acute (3) CAD (coronary artery disease) Status: Chronic Qualifiers: Coronary Disease-Associated Artery/Lesion type: pokagon artery [place] vs. transplanted heart: pokagon heart Associated angina: with stable angina Qualified Code(s): I25.118 - Atherosclerotic heart disease of pokagon coronary artery with other forms of angina pectoris (4) COPD (chronic obstructive pulmonary disease) Onset Date: 03/21/15 Status: Chronic Qualifiers: COPD type: chronic bronchitis Chronic bronchitis type: mixed simple and mucopurulent Qualified Code(s): J41.8 - Mixed simple and mucopurulent chronic bronchitis (5) Chronic renal disease Onset Date: 03/31/17 Status: Chronic Qualifiers: Chronic kidney disease stage: stage 3 (moderate) Qualified Code(s): N18.3 - Chronic kidney disease, stage 3 (moderate) (6) Hyperlipidemia Onset Date: 07/19/16 Status: Chronic Qualifiers: Hyperlipidemia type: mixed hyperlipidemia Qualified Code(s): E78.2 - Mixed hyperlipidemia (7) Hypertension Onset Date: 02/05/16 Status: Chronic Qualifiers: Hypertension type: essential hypertension Qualified Code(s): I10 - Essential (primary) hypertension (8) Nicotine dependence Onset Date: 04/03/17 Status: Chronic Qualifiers: Nicotine product type: cigarettes Substance use status: unspecified nicotine-induced disorder Qualified Code(s): F17.219 - Nicotine dependence, cigarettes, with unspecified nicotine-induced disorders (9) Type 2 diabetes mellitus Onset Date: 12/10/16 Status: Chronic Qualifiers: Diabetes mellitus car cooper insulin use: without half-way use Diabetes mellitus complication status: with kidney complications Diabetes mellitus complication detail: with chronic kidney disease Chronic kidney disease stage : stage 3 (moderate) Qualified Code(s): E11.22 - Type 2 diabetes mellitus with diabetic chronic kidney disease; N18.3 - Chronic kidney disease, stage 3 ( moderate) (10) GERD (gastroesophageal reflux disease) Onset Date: 02/17/17 Status: Chronic Qualifiers: Esophagitis presence: without esophagitis Qualified Code(s): K21.9 - Gastro -esophageal reflux disease without esophagitis (11) Noncompliance Onset Date: 03/18/16 Status: Chronic Brief History of Present Illness: The patient is a 66-year-old male with past medical history of COPD, congestive heart failure with EF 45%, systolic dysfunction, history of prostate cancer, hypertension, brain aneurysm, noncompliance, diabetes, and multiple other comorbid conditions, who was recently admitted to the DC and was diuresed for heart failure and discharged. He is freqeunt flyer to the hospital due to non- compliance with medication. The patient states that they were supposed to mail him his Lasix; however, he cannot afford to pay 500 dollars and this has not filled his medication. He has been short of breath since then. The patient also reports increased swelling of his legs. The patient states he had some chest pain associated with SOB this time. The patient's symptoms are constant, moderate, and progressively worsening. The patient came into the ER for further evaluation. His stress of breath is improved with sitting up right. His workup revealed troponin of 14 and white count of 21. His chest x-ray showed moderate CHF, volume overload. The patient was then referred for admission. He was given Lasix 40 mg IV x1. When seen in the ER, the patient was awake, alert, and oriented x3, in some mild distress. Hospital Course: Overall during the hospital stay patient remained stable. Patient was initially admitted to the hospital for chest pain most likely secondary to NSTEMI. Patient had elevated troponin along with nonspecific ST changes. Cardiology was consulted who recommended the patient have a heart catheterization done here in the hospital. Patient was scheduled for heart catheterization and had a balloon angioplasty done here in the hospital as well. Patient tolerated the procedure well and had really good successful rate as well. Patient was then continued on all his home medications here in the hospital. Patient was doing much better. The 3 of hospitalization and thus was discharged home under stable condition. Patient had an no chest pain or shortness of breath and was ambulating well along with tolerating his diet well as well. It was educated extensively on medication compliance. All [facility] and patient was enrolled in a 4 dollar prescription plan. Patient was given the 1st 3 months supplies for free from the hospital and was asked to call the [facility] for refills for total of 70 dollars. Patient was told to take aspirin 81 mg, Plavix 75 mg, Lasix 40 mg, lisinopril for 20 mg, metoprolol 50 mg b.i.d. and simvastatin 40 mg daily. This 6 medications will be supplied from [facility] every 3 months. Vital Signs/Physical Exam: Temp Pulse Resp BP Pulse Ox 97.0 F 71 18 158/89 H 100 07/10/17 08:00 07/10/17 10:02 07/10/17 08:00 07/10/17 10:02 07/10/17 08:00 General: Alert, In no apparent distress HEENT: Atraumatic, PERRLA, EOMI Neck: Supple, JVD not distended Respiratory: Clear to auscultation bilaterally, Normal air movement Cardiovascular: Regular rate/rhythm, Normal S1 S2 Gastrointestinal: Normal bowel sounds, No tenderness Musculoskeletal: No tenderness Integumentary: No rashes Neurological: Normal speech, Normal tone, Normal affect Lymphatics: No axilla or inguinal lymphadenopathy Laboratory Data at Discharge: WBC 13.8 K/uL (4.3-10.9) H D 07/10/17 03:36 Hgb 9.3 g/dL (13.6-17.9) L 07/10/17 03:36 Hct 31.9 % (39.6-49.0) L 07/10/17 03:36 Plt Count 332 K/uL (152-406) 07/10/17 03:36 PT 20.6 SECONDS (9.5-12.5) H 07/07/17 14:15 INR 1.74 07/07/17 14:15 APTT 28.3 SECONDS (24.3-36.9) 07/07/17 14:15 Sodium 142 mEq/L (135-145) 07/10/17 03:36 Potassium 5.0 mEq/L (3.6-5.0) 07/10/17 03:36 BUN 30 mg/dL (6-20) H 07/10/17 03:36 Creatinine 1.45 mg/dL (0.61-1.24) H 07/10/17 03:36 Glucose 143 mg/dL (65-120) H 07/10/17 03:36 Magnesium 2.0 mg/dL (1.8-2.5) 07/08/17 03:33 Total Bilirubin 0.7 mg/dL (0.3-1.2) 07/10/17 03:36 AST 21 IU/L (10-42) 07/10/17 03:36 ALT 16 IU/L (10-60) 07/10/17 03:36 Alkaline Phosphatase 72 IU/L (42-121) 07/10/17 03:36 Troponin I 4.75 ng/mL (<0.03) H* 07/08/17 08:51 B-Natriuretic Peptide 3733 pg/ml (<=100) H 07/07/17 14:15 Home Medications: Albuterol Inhaler [Ventolin Inhaler*] 2 puff IH Q6H PRN #1 hfa.aer.ad 06/18/17 Clopidogrel Bisulfate [Plavix*] 75 mg PO DAILY #30 tablet 06/18/17 Fluticasone/Salmeterol [Advair 250-50 Diskus] 1 each IH DAILY #30 disk.w.dev Aspirin [Aspirin EC 81 MG] 81 mg PO DAILY #90 tablet. 07/10/17 Clopidogrel Bisulfate [Plavix*] 75 mg PO DAILY #90 tablet 07/10/17 Furosemide [Lasix*] 40 mg PO DAILY #90 tab 07/10/17 Lisinopril [Prinivil*] 20 mg PO DAILY 90 Days #30 tab 07/10/17 Metoprolol Tartrate [Lopressor*] 50 mg PO BID #180 tab 07/10/17 Simvastatin 40 mg PO DAILY #90 tablet 07/10/17 New Medications: Aspirin [Aspirin EC 81 MG] 81 mg PO DAILY #90 tablet. Clopidogrel Bisulfate [Plavix*] 75 mg PO DAILY #90 tablet Furosemide [Lasix*] 40 mg PO DAILY #90 tab Lisinopril [Prinivil*] 20 mg PO DAILY 90 Days #30 tab Metoprolol Tartrate [Lopressor*] 50 mg PO BID #180 tab Simvastatin 40 mg PO DAILY #90 tablet Patient Discharge Instructions: Please f/u with Dr Willams in the clinic in 1 to 2 weeks post discharge. You are to take the following medication. ASA daily. Plavix daily. Lisinopril daily. Lasix daily. Metoprolol Twice daily. Simvastatin Daily Diet: Regular Activity: Ad kim Followup: Jitendra Willams MD [ACTIVE - CAN ADMIT] -
--- NOTE | 2017-07-11 02:17 | PN ---
Date of Progress Note: 07/10/2017 Mr. Terrell had a heart catheterization yesterday and an angioplasty of an RCA in-stent restenosis. The patient did well overnight. There was no hematoma. There are no telemetry changes. No complai nts. The patient will be discharged today by Dr. Michel. We will see him in the office in the next 2 weeks. ZHEN/MARY ANN Voice ID: [id number] Report ID: [id number]
== END 2017-07-10 13:00 | disposition home or self-care (01) | DRG 250 ==
LOC: ER 13:55 → ERHOLD 15:37 → 4TH 16:43
PROVIDERS: ADMIT Family Medicine; ATTEND Family Medicine
PROC: 02703ZZ Dilation of Coronary Artery, One Artery, Percutaneous Approach (ICD-10-PCS; principal; 2017-07-09)
PROC: B201YZZ Plain Radiography of Multiple Coronary Arteries using Other Contrast (ICD-10-PCS; 2017-07-09)
DX: I21.4 Non-ST elevation (NSTEMI) myocardial infarction (principal); I50.41 Acute combined systolic (congestive) and diastolic (congestive) heart failure; I50.20 Unspecified systolic (congestive) heart failure; I13.0 Hypertensive heart and chronic kidney disease with heart failure and stage 1 through stage 4 chronic kidney disease, or unspecified chronic kidney disease; J44.9 Chronic obstructive pulmonary disease, unspecified; E11.9 Type 2 diabetes mellitus without complications; I25.10 Atherosclerotic heart disease of native coronary artery without angina pectoris; E11.22 Type 2 diabetes mellitus with diabetic chronic kidney disease; N18.3 Chronic kidney disease, stage 3 (moderate); E78.2 Mixed hyperlipidemia; F17.210 Nicotine dependence, cigarettes, uncomplicated; K21.9 Gastro-esophageal reflux disease without esophagitis; I25.119 Atherosclerotic heart disease of native coronary artery with unspecified angina pectoris; F17.200 Nicotine dependence, unspecified, uncomplicated; Z91.19 Patient's noncompliance with other medical treatment and regimen
CPT/HCPCS: 36415; 71045; 80048; 80053; 81003; 81015; 83735; 83880; 84484; 85025; 85347; 85610; 85730; 87040; 87086; 87088; 92920; 93005; 93306; 93454; 94640; 94760; 96365; 96375; 99285; C1725; C1893; J0583; J1644; J2250; J2930; J3010; J7030; J7512; J7606

== ENCOUNTER 2017-07-19 07:51 | Observation (INO) | payer OTHER ==
[2017-07-19] MEDS ORDERED: IPRATROPIUM BROM 0.5MG/2.5ML ONE (08:17)
[2017-07-19] MEDS ORDERED: ALBUTEROL 2.5 MG/3 ML NEB SOL ONE (08:17)
[2017-07-19 08:33] LABS: Protime INR 1.54
[2017-07-19 08:35] LABS: Absolute Lymphocytes (CBC) 2.6 K/uL (0.7-4.9); Absolute Monocytes 1.6 K/uL (0.1-1.3); Absolute Neutrophil 8.3 K/uL (1.8-8.0); Basophils % 0.9 % (0-1.3); Eosinophils % 3.3 % (0-4.4); Hematocrit 32.3 % (39.6-49.0); MPV 9.2 fL (7.6-11.3); Monocytes % 12.2 % (3.3-12.3); RBC Red Blood Cell Count 5.39 M/uL (4.33-5.43)
[2017-07-19 08:40] LABS: Magnesium 1.9 mg/dL (1.8-2.5); Potassium 3.7 mEq/L (3.6-5.0)
[2017-07-19] MEDS ORDERED: ENALAPRILAT 1.25 MG/ML VIAL IV ONE ×2 (09:45→11:03)
[2017-07-19] MEDS ORDERED: FUROSEMIDE 40 MG/4 ML VIAL ONE (09:45)
[2017-07-19] MEDS ORDERED: ASPIRIN 81 MG CHEWABLE TABLET ONE (09:45)
[2017-07-19 10:03] LABS: Anisocytosis 2+; Blood Morphology Comment NOTED (NOT SEEN); Hypochromasia 2+; Platelet Estimate ADEQ; Urine White Blood Cell Casts OK
[2017-07-19 10:04] LABS: Poikilocytosis 1+; Polychromasia 1+
[2017-07-19] MEDS ORDERED: ONDANSETRON 4 MG/2 ML VIAL IV PRN (10:06)
--- NOTE | 2017-07-19 10:13 | ER ---
Nurse's Notes [facility] Name: Mark Terrell Age: 66 yrs Sex: Male : 1950 Arrival Date: 07/19/2017 Time: 07:53 Bed 5 Private MD: Diagnosis: Systolic (congestive) heart failure Presentation: 07/19 07:53 Presenting complaint: EMS states: "heart racing since this morning around 0500". aa5 Transition of care: patient was not received from another setting of care. Onset of symptoms was July 19, 2017. Initial Sepsis Screen: Does the patient meet any 2 criteria? No. Patient's initial sepsis screen is negative. Does the patient have a suspected source of infection? No. Patient's initial sepsis screen is negative. Care prior to arrival: None. 07:53 Method Of Arrival: EMS: [facility] 07:53 Acuity: ARIEL 3 aa5 Triage Assessment: 08:02 General: Appears in no apparent distress. uncomfortable, Behavior is cooperative. Pain: jl7 Complains of pain in anterior aspect of left upper chest Pain does not radiate. Pain currently is 6 out of 10 on a pain scale. at worst was 9 out of 10 on a pain scale. Quality of pain is described as squeezing, Pain began 3 hours ago. Is intermittent, Also complains of shortness of breath. EENT: No signs and/or symptoms were reported regarding the EENT system. Neuro: Level of Consciousness is awake, alert, obeys commands, Oriented to person, place, time, situation. Cardiovascular: Patient's skin is warm and dry. Respiratory: Airway is patent Respiratory effort is even, unlabored, Respiratory pattern is regular, symmetrical, Breath sounds are clear bilaterally. GI: No signs and/or symptoms were reported involving the gastrointestinal system. : No signs and/or symptoms were reported regarding the genitourinary system. Derm: Skin is pink, warm \\T\\ dry. Musculoskeletal: No signs and/or symptoms reported regarding the musculoskeletal system. Historical: - Allergies: 07:55 Benadryl; aa5 07:55 PENICILLINS; aa5 - Home Meds: 08:12 simvastatin 40 mg Oral tab 1 tab once daily [Active]; furosemide 40 mg Oral tab 1 tab rv once daily [Active]; lisinopril 20 mg Oral tab 1 tab once daily [Active]; clopidogrel 75 mg oral tab 1 tab once daily [Active]; metoprolol tartrate 50 mg Oral tab 1 tab 2 times per day [Active]; aspirin 81 mg Oral TbEC 1 tab once daily [Active]; mometasone-formoterol inhalation 100mcg/5mcg inhalation [Active]; - PMHx: 07:55 Aneurysm; BRAIN; Cancer; PROSTATE; CHF; COPD; Hypertension; Prostate Cancer; Diabetes; aa5 08:02 Atrial Fib; jl7 - Immunization history:: Adult Immunizations up to date. - Social history:: Smoking status: Patient uses tobacco products, smokes one-half pack cigarettes per day. Screenin:06 Abuse screen: Denies threats or abuse. Denies injuries from another. Nutritional jl7 screening: No deficits noted. Tuberculosis screening: No symptoms or risk factors identified. Fall Risk IV access (20 points). Total Chiang Fall Scale indicates No Risk (0-24 pts). Assessment: 08:06 General: See triage assessment. jl7 08:43 Reassessment: Dr. Yoo notified of BP, ordered for pt to take home medications, wait jl7 one hour and recheck BP; administer ordered enalprilat if BP is still elevated. Home medications administered at this time. 09:40 Reassessment: Patient and/or family updated on plan of care and expected duration. Pain jl7 level reassessed. Patient is alert, oriented x 3, equal unlabored respirations, skin warm/dry/pink. 10:40 Reassessment: Patient and/or family updated on plan of care and expected duration. Pain jl7 level reassessed. Patient is alert, oriented x 3, equal unlabored respirations, skin warm/dry/pink. Vital Signs: 08:00 BP 166 / 125; Pulse 77; Resp 16 S; Temp 98(O); Pulse Ox 90% on R/A; Weight 85.73 kg jl7 (R); Height 5 ft. 11 in. (180.34 cm) (R); Pain 6/10; 08:15 BP 168 / 104; Pulse 75; Resp 16; Pulse Ox 98% on 2 lpm NC; jl7 08:42 BP 186 / 113; Pulse 78; Resp 16; Pulse Ox 96% on R/A; jl7 09:00 BP 185 / 96; Pulse 76; Resp 22; Pulse Ox 96% ; jl7 09:30 BP 163 / 116; Pulse 64; Resp 16; Pulse Ox 99% ; jl7 09:40 BP 167 / 110; Pulse 65; Resp 20; Pulse Ox 99% ; jl7 10:00 BP 170 / 109; Pulse 66; Resp 24; Pulse Ox 98% on 2 lpm NC; jl7 10:30 BP 162 / 111; Pulse 66; Resp 22; Pulse Ox 99% on 2 lpm NC; jl7 10:45 BP 171 / 104; Pulse 67; Resp 21; Pulse Ox 97% on 2 lpm NC; jl7 11:26 BP 153 / 98; Pulse 71; Resp 22; Pulse Ox 96% on 2 lpm NC; jl7 08:00 Body Mass Index 26.36 (85.73 kg, 180.34 cm) 7 ED Course: 07:53 Patient arrived in ED. aa5 07:54 Triage completed. aa5 07:54 Arm band placed on. aa5 08:00 Yaneth Bell, LASHAY is Primary Nurse. jl7 08:02 Inserted saline lock: 20 gauge in right antecubital area, using aseptic technique. rv 08:04 Placed in gown. Bed in low position. Call light in reach. Side rails up X 1. Cardiac rv monitor on. Pulse ox on. NIBP on. 08:12 Mike Yoo MD is Attending Physician. gs 08:19 X-ray completed. Portable x-ray completed in exam room. Patient tolerated procedure ml well. 08:19 Initial lab(s) drawn, by ED staff, sent to lab. EKG done, by ED staff, reviewed by jl7 Mike Yoo MD. 08:20 XRAY Chest (1 view) In Process Unspecified. EDMS 10:06 Bibi De León MD is Hospitalizing Provider. gs 11:47 No provider procedures requiring assistance completed. Patient admitted, IV remains in jl7 place. Administered Medications: 08:22 Drug: Albuterol 2.5 mg Route: Inhalation; rv 11:13 Follow up: Response: No adverse reaction jl7 08:22 Drug: AtroVENT Aerosol 0.5 mg Route: Inhalation; rv 11:14 Follow up: Response: No adverse reaction jl7 09:40 Drug: Aspirin Chewable Tablet 324 mg Route: PO; jl7 11:12 Follow up: Response: No adverse reaction jl7 09:41 Drug: Enalaprilat 1.25 mg Route: IV; Rate: calculated rate; Site: right antecubital; jl7 09:44 Follow up: IV Status: Completed infusion jl7 09:45 Drug: Lasix 40 mg Route: IVP; Site: right antecubital; jl7 11:12 Follow up: Urine output 400 ml; Response: No adverse reaction jl7 11:05 Drug: Enalaprilat 1.25 mg Route: IV; Rate: calculated rate; Site: right antecubital; jl7 11:09 Follow up: IV Status: Completed infusion jl7 Output: 11:12 Urine: 400ml; Total: 400ml. jl7 Outcome: 10:12 Decision to Hospitalize by Provider. 11:47 Admitted to Tele accompanied by tech, via wheelchair, room 420, with chart, Report jl7 called to LASHAY Powell 11:47 Condition: stable 11:47 Discharge instructions given to patient, Instructed on the need for admit, Demonstrated understanding of instructions. 11:59 Patient left the ED. jl7 Signatures: Dispatcher [employer] Annetta Briscoe Audri, RN RN aa5 Yaneth Bell RN RN jl7 Mike Yoo MD MD gs Vicente, Ronaldo RN RN rv Corrections: (The following items were deleted from the chart) 08:05 08:00 BP 166 / 125; Pulse 77bpm; Resp 16bpm; Spontaneous; Pulse Ox 90% RA; Temp 98F jl7 Oral; 85.73 kg Reported; Height 5 ft. 11 in. Reported; BMI: 26.3; jl7 08:46 08:42 Reassessment: jl7 jl
--- NOTE | 2017-07-19 10:13 | EDPHYS ---
Physician Documentation [facility] Name: Mark Terrell Age: 66 yrs Sex: Male : 1950 Arrival Date: 07/19/2017 Time: 07:53 Bed 5 Private MD: ED Physician Mike Yoo HPI: 07/19 09:44 This 66 yrs old Male presents to ER via EMS with complaints of Palpitations. gs 09:44 The patient presents with a history of irregular heart beat, heart racing. Context: The gs symptoms occur at rest. Onset: The symptoms/episode began/occurred acutely. Duration: The patient or guardian reports multiple episodes, that wax and wane. Modifying factors: The symptoms are aggravated by nothing. The symptoms are alleviated by nothing. Associated signs and symptoms: Pertinent positives: SOB. Severity of symptoms: At their worst the symptoms were severe in the emergency department the symptoms are unchanged. The patient has experienced similar episodes in the past, a few times. Historical: - Allergies: 07:55 Benadryl; aa5 07:55 PENICILLINS; aa5 - Home Meds: 08:12 simvastatin 40 mg Oral tab 1 tab once daily [Active]; furosemide 40 mg Oral tab 1 tab rv once daily [Active]; lisinopril 20 mg Oral tab 1 tab once daily [Active]; clopidogrel 75 mg oral tab 1 tab once daily [Active]; metoprolol tartrate 50 mg Oral tab 1 tab 2 times per day [Active]; aspirin 81 mg Oral TbEC 1 tab once daily [Active]; mometasone-formoterol inhalation 100mcg/5mcg inhalation [Active]; - PMHx: 07:55 Aneurysm; BRAIN; Cancer; PROSTATE; CHF; COPD; Hypertension; Prostate Cancer; Diabetes; aa5 08:02 Atrial Fib; jl7 - Immunization history:: Adult Immunizations up to date. - Social history:: Smoking status: Patient uses tobacco products, smokes one-half pack cigarettes per day. ROS: 09:44 All other systems are negative. gs Exam: 09:44 Head/Face: Normocephalic, atraumatic. Eyes: Pupils equal round and reactive to light, gs extra-ocular motions intact. Lids and lashes normal. Conjunctiva and sclera are non-icteric and not injected. Cornea within normal limits. Periorbital areas with no swelling, redness, or edema. ENT: Nares patent. No nasal discharge, no septal abnormalities noted. Tympanic membranes are normal and external auditory canals are clear. Oropharynx with no redness, swelling, or masses, exudates, or evidence of obstruction, uvula midline. Mucous membranes moist. Neck: Trachea midline, no thyromegaly or masses palpated, and no cervical lymphadenopathy. Supple, full range of motion without nuchal rigidity, or vertebral point tenderness. No Meningismus. Chest/axilla: Normal chest wall appearance and motion. Nontender with no deformity. No lesions are appreciated. 09:44 Abdomen/GI: Soft, non-tender, with normal bowel sounds. No distension or tympany. No guarding or rebound. No evidence of tenderness throughout. Back: No spinal tenderness. No costovertebral tenderness. Full range of motion. Skin: Warm, dry with normal turgor. Normal color with no rashes, no lesions, and no evidence of cellulitis. MS/ Extremity: Pulses equal, no cyanosis. Neurovascular intact. Full, normal range of motion. Neuro: Awake and alert, GCS 15, oriented to person, place, time, and situation. Cranial nerves II-XII grossly intact. Motor strength 5/5 in all extremities. Sensory grossly intact. Cerebellar exam normal. Normal gait. 09:44 Constitutional: The patient appears alert, awake. 09:44 Cardiovascular: Rate: normal, Rhythm: regular, Pulses: no pulse deficits are appreciated, Edema: is not appreciated. 09:44 ECG was reviewed by the Attending Physician. 09:44 Respiratory: mild respiratory distress is noted, Respirations: tachypnea, Breath sounds: rales, that are mild, are located in both bases. Vital Signs: 08:00 BP 166 / 125; Pulse 77; Resp 16 S; Temp 98(O); Pulse Ox 90% on R/A; Weight 85.73 kg jl7 (R); Height 5 ft. 11 in. (180.34 cm) (R); Pain 6/10; 08:15 BP 168 / 104; Pulse 75; Resp 16; Pulse Ox 98% on 2 lpm NC; jl7 08:42 BP 186 / 113; Pulse 78; Resp 16; Pulse Ox 96% on R/A; jl7 09:00 BP 185 / 96; Pulse 76; Resp 22; Pulse Ox 96% ; jl7 09:30 BP 163 / 116; Pulse 64; Resp 16; Pulse Ox 99% ; 7 09:40 BP 167 / 110; Pulse 65; Resp 20; Pulse Ox 99% ; 7 10:00 BP 170 / 109; Pulse 66; Resp 24; Pulse Ox 98% on 2 lpm NC; 7 10:30 BP 162 / 111; Pulse 66; Resp 22; Pulse Ox 99% on 2 lpm NC; 7 10:45 BP 171 / 104; Pulse 67; Resp 21; Pulse Ox 97% on 2 lpm NC; 7 11:26 BP 153 / 98; Pulse 71; Resp 22; Pulse Ox 96% on 2 lpm NC; 7 08:00 Body Mass Index 26.36 (85.73 kg, 180.34 cm) [facility] MDM: 08:12 Patient medically screened. 09:44 Data reviewed: vital signs, nurses notes, and as a result, I will admit patient. 07/19 08:13 Order name: Basic Metabolic Panel; Complete Time: 09:36 07/19 08:13 Order name: CBC with Diff 07/19 08:13 Order name: Magnesium; Complete Time: 09:36 07/19 08:13 Order name: PT-INR; Complete Time: 09:36 07/19 08:13 Order name: Troponin (emerg Dept Use Only); Complete Time: 09:36 07/19 08:13 Order name: BNP; Complete Time: 09:36 07/19 08:40 Order name: CBC Smear Scan [facility] 07/19 10:11 Order name: CBC with Automated Diff EDMS 07/19 10:11 Order name: CBC with Automated Diff EDMS 07/19 10:11 Order name: CBC with Automated Diff EDMS 07/19 10:11 Order name: CBC with Automated Diff EDMS 07/19 10:11 Order name: Comprehensive Metabolic Panel EDNM 07/19 10:11 Order name: Comprehensive Metabolic Panel EDMS 07/19 10:11 Order name: Comprehensive Metabolic Panel [facility] 07/19 08:13 Order name: XRAY Chest (1 view) 07/19 08:13 Order name: EKG; Complete Time: 08:14 07/19 08:13 Order name: Cardiac monitoring; Complete Time: 08:18 07/19 08:13 Order name: EKG - Nurse/Tech; Complete Time: 08:18 07/19 08:13 Order name: IV Saline Lock; Complete Time: 08:18 07/19 08:13 Order name: Labs collected and sent; Complete Time: 08:18 07/19 10:11 Order name: Physical Therapy Consult [facility] 07/19 10:11 Order name: Heart Healthy [facility] 07/19 10:11 Order name: Comprehensive Metabolic Panel [facility] 07/19 11:14 Order name: Urine Dipstick--Ancillary (enter results) 07/19 08:13 Order name: O2 Per Protocol; Complete Time: 08:18 07/19 08:13 Order name: O2 Sat Monitoring; Complete Time: 08:18 07/19 08:13 Order name: Urine Dipstick-Ancillary (obtain specimen); Complete Time: 11:35 gs EC:44 Rate is 78 beats/min. Rhythm is regular. LA interval is normal. QRS interval is gs prolonged. T waves are Flattened. Clinical impression: NSR w/ Non-specific ST/T Changes. Interpreted by me. Administered Medications: 08:22 Drug: Albuterol 2.5 mg Route: Inhalation; rv 11:13 Follow up: Response: No adverse reaction jl7 08:22 Drug: AtroVENT Aerosol 0.5 mg Route: Inhalation; rv 11:14 Follow up: Response: No adverse reaction jl7 09:40 Drug: Aspirin Chewable Tablet 324 mg Route: PO; jl7 11:12 Follow up: Response: No adverse reaction jl7 09:41 Drug: Enalaprilat 1.25 mg Route: IV; Rate: calculated rate; Site: right antecubital; jl7 09:44 Follow up: IV Status: Completed infusion jl7 09:45 Drug: Lasix 40 mg Route: IVP; Site: right antecubital; jl7 11:12 Follow up: Urine output 400 ml; Response: No adverse reaction jl7 11:05 Drug: Enalaprilat 1.25 mg Route: IV; Rate: calculated rate; Site: right antecubital; jl7 11:09 Follow up: IV Status: Completed infusion jl7 Disposition: 07/19/17 10:12 Hospitalization ordered by Bibi De León for Inpatient Admission. Preliminary diagnosis is Systolic (congestive) heart failure. - Bed requested for Telemetry/MedSurg (Inpatient). - Status is Inpatient Admission. jl7 - Condition is Stable. - Problem is an acute exacerbation. - Symptoms have improved. UTI on Admission? No Signatures: Dispatcher [employer] EDMS Shanthi Judd, RN RN aa5 Melissa Molina Jahala, RN RN jl7 Mike Yoo MD MD Andrew Souza RN RN rv Corrections: (The following items were deleted from the chart) 11:11 10:12 Hospitalization Ordered by Bibi De León MD for Inpatient Admission. Preliminary ag diagnosis is Systolic (congestive) heart failure. Bed requested for Telemetry/MedSurg (Inpatient). Status is Inpatient Admission. Condition is Stable. Problem is an acute exacerbation. Symptoms have improved. UTI on Admission? No. 11:59 11:11 07/19/2017 10:12 Hospitalization Ordered by Bibi De León MD for Inpatient jl7 Admission. Preliminary diagnosis is Systolic (congestive) heart failure. Bed requested for Telemetry/MedSurg (Inpatient). Status is Inpatient Admission. Condition is Stable. Problem is an acute exacerbation. Symptoms have improved. UTI on Admission? No. ag
--- NOTE | 2017-07-19 10:27 | RAD REPORT ---
EXAM DESCRIPTION: RAD - Chest Single View - 07/19/2017 8:21 am CLINICAL HISTORY: A arrhythmia, shortness of breath COMPARISON: July 07 TECHNIQUE: AP portable chest image was obtained 0819 hours . FINDINGS: Lung volumes are normal. No peripheral mass or consolidation. Cardiomegaly is similar to comparison. Vascular engorgement and interstitial thickening or edema again noted. Pattern is not substantially different. No peripheral mass or consolidation. No measurable pleural effusion and no p neumothorax. No gross bony abnormality seen. No acute aortic findings suspected. IMPRESSION: Mild failure/ volume overload pattern similar to July 07 imaging.
[2017-07-19 12:08] LABS: Urine Blood NEGATIVE (NEG); Urine Glucose NEGATIVE (NEG); Urine Protein 2+ (NEG); Urine Specific Gravity 1.015 (1.005-1.030)
[2017-07-19] MEDS ORDERED: HYDRALAZINE HCL 20 MG/ML VIAL IV PRN (12:14)
[2017-07-19 13:00] VITALS: BMI 27.6
[2017-07-19] MEDS ORDERED: DULERA 100/5 (MOMETASONE/FORMOTEROL) INHALER IH PRN (13:27)
--- NOTE | 2017-07-19 15:53 | HP ---
Date of Admission: 07/19/2017 Code Status: Full. Chief Complaint: Shortness of breath. History Of Present Illness: The patient is a 66-year-old male with past medical history of congestive heart failure, hypertension, history of brain aneurysm, COPD, tobacco abuse, noncompliance, heart disease with stents, diabetes, hyperlipidemia, comes in with shortness of breath. The patient was in his usual state of health, states that he has been eating nothing but Ramen noodles that was left over from when his house guests left and realizes that it has a significant amount of sodium in it. He is also noncompliant with this 1500 mL fluid restriction. The patient states that he has been compliant with his medications and has brought them with him. The patient does have some lower extremity swelling. Denies any chest pain, cough, sputum production, ill contacts or fever. Upon arrival to the ER, his vital signs showed a little bit of elevated blood pressure 156/125, and he was placed on 2 L of oxygen and improved to 98%. The patient was referred for admission for congestive heart failure. His symptoms are constant, moderate, progressively worsening, worsened with laying flat. When seen in the ER, he was awake, alert, oriented x3, in some mild distress. Past Medical History: Congestive heart failure, history of prostate cancer, hypertension, history of brain aneurysm requiring surgery, COPD, tobacco abuse, noncompliance, coronary artery disease status post stent to the LAD and RCA in 2016, diabetes mellitus type 2. GERD, anemia, hyperlipidemia. Surgical History: Prostate surgery, brain aneurysm surgery, toe surgery to the right great toe during childhood, heart catheterization with 3 stents in LAD and RCA. Allergies: TO DIPHENHYDRAMINE. Medications: List reviewed. Social History: The patient is a daily smoker. No alcohol use or illicit drug use. Lives at home by himself. Family History: Father had brain cancer. Mother had pancreatic cancer. Brother had lung cancer. Review of Systems: An 11-point system reviewed, negative except as per HPI. Physical Examination: Vital Signs: Temperature 98, heart rate 77, blood pressure 166/125, respirations 16, O2 90% on room air, improved to 98% on 2 L via nasal cannula. General: Awake, alert, oriented x3, in some mild respiratory distress, appears older than stated age male, somewhat unkempt, slightly ill appearing. HEENT: Normocephalic, atraumatic. PERRLA. EOMI. Poor dentition. Moist mucous membranes. Oropharynx is clear. Conjunctiva anicteric. Neck: Supple. No JVD. Trachea midline. CV: S1, S2. Peripheral pulses weak bilaterally. No murmurs. Respiratory: Diminished breath sounds. Some crackles are heard. No wheezing, stridor or use of accessory muscles. Gastrointestinal: Abdomen is soft, nontender, nondistended. Positive bowel sounds. No guarding or rigidity. Extremities: No clubbing, cyanosis, 2+ edema bilateral lower extremities. No calf tenderness. Neuro: Cranial nerves 2 through 12 intact grossly. No focal neurological deficit. Strength is 5/5 in bilateral upper and lower extremities. Sensation intact to light touch. Skin: No rashes. Normal skin turgor. Psych: Mood is okay. Affect is full. Insight and judgment are poor. Laboratory Data: Sodium 139, potassium 3.7, chloride 104, CO2 of 27, BUN 16, creatinine 1.44, glucose 135, calcium 8.7, magnesium 1.9. Troponin 0.09. BNP 2026. INR 1.54. WBC 13, H and H are 9.1 and 32.3, platelets 303, neutrophils 63%. Chest x-ray, mild failure, volume overload pattern similar to July 07 imaging. Assessment And Plan: A 66-year-old male with: 1. [place] systolic heart failure. We will continue with congestive heart failure guidelines with PAWEL inhibitor, beta vlad. We will diurese with Lasix 40 b.i.d. IV. We will obtain daily weights. Strict Is and Os, fluid restriction. The patient counseled on compliance with diet and he is told that he can no longer eat Ramen noodles, which are of very high sodium content. 2. Coronary artery disease. [place] artery and [place] heart, status post stent without angina. 3. Noncompliance, counseled. 4. Nicotine dependence with cigarette smoking, uncomplicated, counseled. 5. Chronic obstructive pulmonary disease, chronic bronchitis. We will continue with home medications. 6. History of brain aneurysm status post surgery. 7. Essential hypertension, stable. 8. History of prostate cancer. 9. Diabetes mellitus type 2. We will continue sliding scale insulin. 10. Gastroesophageal reflux disease without esophagitis. Continue PPI. 11. Chronic anemia of chronic disease. Monitor H and H. 12. Hyperlipidemia. 13. We will continue home medications. 14. Gastrointestinal and deep venous thrombosis prophylaxis with PPI and Lovenox. Plan: Admit the patient to Med-Surg, place as observation. 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
[2017-07-19] MEDS ORDERED: ENOXAPARIN 30 MG/0.3 ML SQ SCH (17:00)
[2017-07-19] MEDS: FUROSEMIDE 40 MG/4 ML VIAL IV SCH (17:32)
[2017-07-19] MEDS: ACETAMINOPHEN 500 MG TAB PO PRN (18:27)
[2017-07-19] MEDS: METOPROLOL TAR 50 MG TAB PO SCH (20:47)
[2017-07-19] MEDS: NICOTINE 14 MG/PAT TD SCH (20:47)
[2017-07-19] MEDS ORDERED: ATORVASTATIN 20 MG TAB PO SCH (21:00)
[2017-07-19] MEDS ORDERED: HOME MED 1 EA UNK (Simvastatin [Simvastatin] 40 MG) PO SCH (21:00)
[2017-07-19] MEDS ORDERED: TRAZODONE 50 MG TABLET PO ONE (21:00)
[2017-07-20] MEDS: ACETAMINOPHEN 500 MG TAB PO PRN ×2 (03:51→11:10)
[2017-07-20 05:47] LABS: Absolute Lymphocytes (CBC) 1.7 K/uL (0.7-4.9); Absolute Monocytes 1.4 K/uL (0.1-1.3); Absolute Neutrophil 9.1 K/uL (1.8-8.0); Basophils % 0.8 % (0-1.3); Lymphocytes % 13.6 % (15.3-44.8); MCH 17.1 pg (27.0-35.0); MCV 59.3 fL (80-100); MPV 9.1 fL (7.6-11.3); Monocytes % 10.8 % (3.3-12.3); RBC Red Blood Cell Count 5.23 M/uL (4.33-5.43)
[2017-07-20 05:50] LABS: Albumin 2.9 g/dL (3.2-5.5); Bilirubin Total 0.9 mg/dL (0.3-1.2); Potassium 3.8 mEq/L (3.6-5.0); Protein, Total 5.5 g/dL (6.0-8.3)
[2017-07-20 08:48] VITALS: TEMP 98
[2017-07-20] MEDS ORDERED: CLOPIDOGREL 75 MG TABLET PO SCH (09:00)
[2017-07-20] MEDS ORDERED: LISINOPRIL 20 MG TAB PO SCH (09:00)
[2017-07-20] MEDS ORDERED: ASPIRIN EC 81 MG TAB PO SCH (09:00)
[2017-07-20] MEDS ORDERED: D50W 25 GM/50 ML SYRINGE IV PRN (09:04)
[2017-07-20] MEDS ORDERED: GLUCAGON 1 MG/VIAL IM PRN (09:04)
[2017-07-20] MEDS: FUROSEMIDE 40 MG/4 ML VIAL IV SCH (09:04)
[2017-07-20] MEDS: NICOTINE 14 MG/PAT TD SCH (09:05)
[2017-07-20] MEDS: METOPROLOL TAR 50 MG TAB PO SCH (09:05)
--- NOTE | 2017-07-20 10:38 | EKG ---
Test Date: 2017-07-20 Test Time: 09:37:04 Entertainment Reporter: RASHARD MEASUREMENT RESULTS: Intervals: Rate: 66 PA: 156 QRSD: 112 QT: 472 QTc: 494 [place]: P: 69 PA: 156 QRS: 88 T: 36 INTERPRETIVE STATEMENTS: Normal sinus rhythm Minimal voltage criteria for LVH, may be normal variant Nonspecific ST and T wave abnormality Prolonged QT Abnormal ECG Compared to ECG 07/19/2017 08:13:57 Prolonged QT interval now present ST (T wave) deviation still present Electronically Signed On 07-20-17 10:38:11 CDT by Jitendra Willams
--- NOTE | 2017-07-20 10:44 | EKG ---
Test Date: 2017-07-19 Test Time: 08:13:57 Ton Cylinder Inspector: JUSTINO MEASUREMENT RESULTS: Intervals: Rate: 78 OK: 126 QRSD: 106 QT: 430 QTc: 490 [place]: P: 68 OK: 126 QRS: 76 T: 80 INTERPRETIVE STATEMENTS: Normal sinus rhythm Possible Left atrial enlargement Left ventricular hypertrophy Nonspecific ST and T wave abnormality Abnormal ECG Compared to ECG 07/08/2017 08:53:24 Left ventricular hypertrophy now present Myocardial infarct finding no longer present Possible ischemia no longer present Prolonged QT interval no longer present ST (T wave) deviation still present Electronically Signed On 07-20-17 10:43:48 CDT by Jitendra Willams
[2017-07-20] MEDS ORDERED: INSULIN -REGULAR HUMAN 50 UNIT/0.5 ML ML SQ SCH (11:30)
[2017-07-20 12:38] VITALS: BP 140/92
[2017-07-20 13:01] VITALS: O2SAT 100
--- NOTE | 2017-07-20 15:24 | DS ---
Date of Discharge: 07/20/2017 Admitting Diagnoses: 1.Acute on chronic systolic heart failure. 2.Coronary artery disease, [place] artery and [place] heart, status post stent without angina. 3.Noncompliance. 4.Nicotine dependence with cigarette smoking, uncomplicated. 5.Chronic obstructive pulmonary disease, chronic bronchitis. 6.History of brain aneurysm with status post surgery. 7.Essential hypertension. 8.History of prostate cancer. 9.Diabetes mellitus type 2. 10.Gastroesophageal reflux disease without esophagitis. 11.Anemia of chronic disease. 12.Hyperlipidemia. Discharge Diagnoses: 1.Jdwjh-tw-jgqpspn systolic heart failure, improved. 2.Coronary artery disease, [place] artery and [place] heart, status post stent without angina. 3.Noncompliance, counseled. 4.Hyperglycemia without diagnosis of diabetes. 5.Recommend diet and exercise modification. 6.Chronic obstructive pulmonary disease, chronic bronchitis, stable. 7.History of aneurysm, status post surgery. 8.Essential hypertension, stable. 9.History of prostate cancer. 10.Diabetes mellitus type 2. 11.Gastroesophageal reflux disease without esophagitis. 12.Anemia of chronic disease. 13.Hyperlipidemia. Hospital Course: The patient is a 66-year-old male with multiple recurrent episodes for CHF, who com es in again with similar symptoms of shortness of breath and no extremity edema. The patient for thi s time actually is on medications; however, has been noncompliant with his diet. The patient states that he had been eating nothing but Ramen noodles which have very high sodium content. The patient i s also noncompliant with his fluid restriction and drinks multiple cups of coffee per hour with every 7 pack of sugar. The patient was found to have a troponin of 0.09. No chest pain. No changes on E KG. BNP was 2026 and creatinine was 1.52, which is slightly above his baseline. The patient's white count was slightly elevated at 13, which improved. His UA was negative. His chest x-ray showed marla e mild failure volume overload pattern similar to previous and did not have any cough, fever, or chil ls. Did not suspect any pneumonia. The patient was treated with IV diuretics, started on CHF guidel [place], nicotine patch was put on. He also was started on nebulizer treatment. The patient was counse led regarding his diet restrictions. He voiced understanding. He was also counseled to discontinue smoking. The patient was then able to be weaned off oxygen. His room air saturations were 99% after ambulation. The patient was then cleared for discharge. Condition: Fair. Activity: As tolerated. Medications: As per medication reconciliation list. Followup: Follow up with primary care physician in 2-3 days. Follow up with horticulture instructor in 2-4 wee ks. Return to ER for worsening condition. Diet: Low-sodium fluid-restricted diet. Monitor blood glucose levels. Restrict high glycemic index foods. Medications: As per medication reconciliation list. Physical Examination: General: Awake, alert, oriented, no acute distress CV: S1, S2. Peripheral pulses present. Respiratory: Moving air well bilaterally. No wheezing. Abdomen: Abdomen is soft, nontender, nondistended. Positive bowel sounds. Extremities: No clubbing, cyanosis. Mild pedal edema. Neurologic: Nonfocal. The patient remains high risk for readmission due to his noncompliance. /MARY ANN Voice ID: [id number] Report ID: [id number]
[2017-07-21 15:48] LABS: A1c Component 0.49 mg/dL; Hemoglobin A1c 7.1 % (4-6.0)
== END 2017-07-20 13:51 | disposition home or self-care (01) ==
LOC: ER 07:51 → INTOOBSV 10:18 → ERHOLD 10:18 → 4TH 11:36
PROVIDERS: ADMIT Family Medicine; ATTEND Family Medicine
DX: I11.0 Hypertensive heart disease with heart failure (principal); I50.23 Acute on chronic systolic (congestive) heart failure; I25.10 Atherosclerotic heart disease of native coronary artery without angina pectoris; J44.9 Chronic obstructive pulmonary disease, unspecified; E78.5 Hyperlipidemia, unspecified; E11.9 Type 2 diabetes mellitus without complications; K21.9 Gastro-esophageal reflux disease without esophagitis; D64.9 Anemia, unspecified; F17.210 Nicotine dependence, cigarettes, uncomplicated; Z95.5 Presence of coronary angioplasty implant and graft; Z91.11 Patient's noncompliance with dietary regimen; Z85.46 Personal history of malignant neoplasm of prostate
CPT/HCPCS: 36415; 71045; 80048; 80053; 81003; 82962; 83036; 83735 ×2; 83880; 84484; 85025 ×2; 85610; 93005 ×2; 94760 ×3; 96374; 96375; 97163; 99285; G0378 ×2; J1650; J7606

== ENCOUNTER 2017-08-04 07:26 | Observation (INO) | payer OTHER ==
[2017-08-04] MEDS ORDERED: NA CHLORIDE 0.9% 1,000 ML ONE (07:40)
[2017-08-04] MEDS ORDERED: CLOPIDOGREL 75 MG TABLET ONE (08:14)
[2017-08-04] MEDS ORDERED: ASPIRIN 81 MG CHEWABLE TABLET ONE (08:14)
[2017-08-04] MEDS ORDERED: HYDRALAZINE HCL 20 MG/ML VIAL ONE (08:14)
[2017-08-04] MEDS ORDERED: HYDRALAZINE HCL 10 MG TABLET ONE (08:14)
[2017-08-04 08:15] LABS: Absolute Lymphocytes (CBC) 2.1 K/uL (0.7-4.9); Absolute Monocytes 1.2 K/uL (0.1-1.3); Absolute Neutrophil 5.6 K/uL (1.8-8.0); Basophils % 0.8 % (0-1.3); Hematocrit 33.7 % (39.6-49.0); Lymphocytes % 22.7 % (15.3-44.8); MCH 17.2 pg (27.0-35.0); MCV 59.4 fL (80-100); MPV 9.6 fL (7.6-11.3); Monocytes % 12.9 % (3.3-12.3); RBC Red Blood Cell Count 5.68 M/uL (4.33-5.43)
[2017-08-04] MEDS ORDERED: ENOXAPARIN 100 MG/ML SYR SQ ONE (08:15)
[2017-08-04 08:19] LABS: Protime INR 1.36
[2017-08-04 08:34] LABS: Potassium 4.4 mEq/L (3.6-5.0)
[2017-08-04 08:39] LABS: Albumin 3.8 g/dL (3.2-5.5); Bilirubin Total 0.8 mg/dL (0.3-1.2); CKMB Creatine Kinase MB 3.4 ng/ml (0.3-4.0); Magnesium 1.8 mg/dL (1.8-2.5)
[2017-08-04 08:40] LABS: Bilirubin Direct 0.2 mg/dL (0-0.2)
--- NOTE | 2017-08-04 08:54 | RAD REPORT ---
EXAM DESCRIPTION: RAD - Chest Single View - 08/04/2017 8:05 am CLINICAL HISTORY: Left-sided chest pain, dyspnea COMPARISON: July 19 TECHNIQUE: AP portable chest image was obtained 0800 hours . FINDINGS: No peripheral, focal mass or consolidation. Interstitial markings are prominent. Vasculatu re is mildly prominent. Cardiac silhouette is enlarged. Findings are similar to the prior study. Trac hea is midline. No measurable pleural effusion and no pneumothorax. No gross bony abnormality seen. N o acute aortic findings suspected. IMPRESSION: Mild CHF/volume overload pattern is present similar to the July 19 study.
[2017-08-04] MEDS ORDERED: ACETAMINOPHEN 325 MG TABLET ONE (09:05)
--- NOTE | 2017-08-04 09:48 | EKG ---
Test Date: 2017-08-04 Test Time: 07:42:10 Historical Manuscripts Curator: AYSHA MEASUREMENT RESULTS: Intervals: Rate: 84 MO: 150 QRSD: 116 QT: 408 QTc: 482 [place]: P: 84 MO: 150 QRS: 90 T: 45 INTERPRETIVE STATEMENTS: Normal sinus rhythm Left ventricular hypertrophy Nonspecific ST and T wave abnormality Abnormal ECG Compared to ECG 07/20/2017 09:37:04 no significant change from previous ECG Electronically Signed On 08-04-17 09:48:09 CDT by Jitendra Willams
--- NOTE | 2017-08-04 09:50 | EDPHYS ---
Physician Documentation [facility] Name: Mark Terrell Age: 66 yrs Sex: Male : 1950 Arrival Date: 08/04/2017 Time: 07:28 Bed 6 Private MD: None, None ED Physician Satish Catalan HPI: 08/04 07:57 This 66 yrs old Male presents to ER via Wheelchair with complaints of Chest mónica Pain, Shortness Of Breath. 07:57 The patient or guardian reports chest pain that is located primarily in the substernal mónica area. Onset: today, yesterday. The pain does not radiate. Associated signs and symptoms: Pertinent positives: abdominal pain. The chest pain is described as a pressure. Duration: The patient or guardian reports multiple episodes, with no pattern. Modifying factors: The symptoms are alleviated by nothing. Severity of pain: At its worst the pain was mild in the emergency department the pain is unchanged. Historical: - Allergies: 07:44 Benadryl; iw 07:44 PENICILLINS; iw - Home Meds: 08:05 Albuterol Inhl [Active]; aspirin 81 mg Oral TbEC 1 tab once daily [Active]; clopidogrel hb 75 mg Oral tab 1 tab once daily [Active]; furosemide 40 mg Oral tab 1 tab once daily [Active]; Lasix 20 mg oral tab once daily [Active]; metoprolol tartrate 50 mg Oral tab 1 tab 2 times per day [Active]; lisinopril 20 mg Oral tab 1 tab once daily [Active]; mometasone-formoterol 100mcg/5mcg inhalation [Active]; simvastatin 40 mg Oral tab 1 tab once daily [Active]; unk BP meds for High Blood Pressure [Active]; - PMHx: 07:44 Aneurysm; BRAIN; Atrial Fib; CHF; COPD; Hypertension; Prostate Cancer; iw 08:05 Cancer; PROSTATE; hb - PSHx: 07:44 prostate removed; Heart stents; iw - Immunization history:: Adult Immunizations unknown. - Ebola Screening: : Patient negative for fever greater than or equal to 101.5 degrees Fahrenheit, and additional compatible Ebola Virus Disease symptoms Patient denies exposure to infectious person Patient denies travel to an Ebola-affected area in the 21 days before illness onset No symptoms or risks identified at this time. - Family history:: not pertinent. - Social history:: Smoking status: Patient uses tobacco products, smokes one pack cigarettes per day. ROS: 07:57 Constitutional: Negative for fever, chills, and weight loss, Eyes: Negative for injury, mónica pain, redness, and discharge, ENT: Negative for injury, pain, and discharge, Neck: Negative for injury, pain, and swelling, Abdomen/GI: Negative for abdominal pain, nausea, vomiting, diarrhea, and constipation, Back: Negative for injury and pain, : Negative for injury, bleeding, discharge, and swelling, MS/Extremity: Negative for injury and deformity, Skin: Negative for injury, rash, and discoloration, Neuro: Negative for headache, weakness, numbness, tingling, and seizure, Psych: Negative for depression, anxiety, suicide ideation, homicidal ideation, and hallucinations, Allergy/Immunology: Negative for hives, rash, and allergies, Endocrine: Negative for neck swelling, polydipsia, polyuria, polyphagia, and marked weight changes. 07:57 Cardiovascular: Positive for chest pain. 07:57 Respiratory: Positive for cough, shortness of breath, at rest. Exam: 07:57 Constitutional: This is a well developed, well nourished patient who is awake, alert, mónica and in no acute distress. Head/Face: Normocephalic, atraumatic. Eyes: Pupils equal round and reactive to light, extra-ocular motions intact. Lids and lashes normal. Conjunctiva and sclera are non-icteric and not injected. Cornea within normal limits. Periorbital areas with no swelling, redness, or edema. ENT: Nares patent. No nasal discharge, no septal abnormalities noted. Tympanic membranes are normal and external auditory canals are clear. Oropharynx with no redness, swelling, or masses, exudates, or evidence of obstruction, uvula midline. Mucous membranes moist. Neck: Trachea midline, no thyromegaly or masses palpated, and no cervical lymphadenopathy. Supple, full range of motion without nuchal rigidity, or vertebral point tenderness. No Meningismus. Chest/axilla: Normal chest wall appearance and motion. Nontender with no deformity. No lesions are appreciated. Cardiovascular: Regular rate and rhythm with a normal S1 and S2. No gallops, murmurs, or rubs. Normal PMI, no JVD. No pulse deficits. Abdomen/GI: Soft, non-tender, with normal bowel sounds. No distension or tympany. No guarding or rebound. No evidence of tenderness throughout. Back: No spinal tenderness. No costovertebral tenderness. Full range of motion. Male : Normal genitalia with no discharge or lesions. Skin: Warm, dry with normal turgor. Normal color with no rashes, no lesions, and no evidence of cellulitis. MS/ Extremity: Pulses equal, no cyanosis. Neurovascular intact. Full, normal range of motion. Neuro: Awake and alert, GCS 15, oriented to person, place, time, and situation. Cranial nerves II-XII grossly intact. Motor strength 5/5 in all extremities. Sensory grossly intact. Cerebellar exam normal. Normal gait. Psych: Awake, alert, with orientation to person, place and time. Behavior, mood, and affect are within normal limits. 07:57 Respiratory: the patient does not display signs of respiratory distress. 08:05 Musculoskeletal/extremity: DVT Exam: No signs of deep vein thrombosis. no pain, no mónica swelling, no tenderness, negative Homans' sign noted on exam, no appreciated bluish discoloration, no erythema, no increased warmth. Vital Signs: 07:44 BP 179 / 117; Pulse 93; Resp 20 S; Temp 98.2; Pulse Ox 98% on R/A; Weight 85.73 kg (M); iw Height 5 ft. 11 in. (180.34 cm); Pain 8/10; 08:09 BP 178 / 109; Pulse 84; Resp 24; Pulse Ox 99% on 2 lpm NC; Pain 8/10; hb 08:49 BP 151 / 111; Pulse 89; Resp 20; Pulse Ox 100% on 2 lpm NC; jb1 09:32 BP 167 / 109; Pulse 81; Resp 18; Pulse Ox 99% on 2 lpm NC; hb 10:35 BP 172 / 103; Pulse 89; Resp 21; Pulse Ox 99% on 2 lpm NC; hb 11:30 BP 175 / 100; Pulse 88; Resp 19; Pulse Ox 98% on 2 lpm NC; hb 07:44 Body Mass Index 26.36 (85.73 kg, 180.34 cm) iw MDM: 07:34 Patient medically screened. [facility] 08:00 Data reviewed: vital signs, nurses notes, lab test result(s), EKG, radiologic studies, mónica plain films. 08/04 07:37 Order name: Basic Metabolic Panel; Complete Time: 09:47 mónica 08/04 07:37 Order name: BNP; Complete Time: 09:47 mónica 08/04 07:37 Order name: CBC with Diff [facility] 08/04 07:37 Order name: Ckmb; Complete Time: 09:47 mónica 08/04 07:37 Order name: CPK; Complete Time: 09:[address] [facility] 08/04 07:37 Order name: LFT's; Complete Time: 09:[address] [facility] 08/04 07:37 Order name: Magnesium; Complete Time: 09:[address] [facility] 08/04 07:37 Order name: PT-INR; Complete Time: 09:[address] [facility] 08/04 07:37 Order name: Ptt, Activated; Complete Time: 09:[address] [facility] 08/04 07:37 Order name: Troponin (emerg Dept Use Only); Complete Time: 09:[address] [facility] 08/04 07:37 Order name: Lipase; Complete Time: 09:[address] [facility] 08/04 07:37 Order name: Blood Culture Adult (2) [facility] 08/04 07:37 Order name: Urine Culture [facility] 08/04 08:54 Order name: CBC Smear Scan EDNM 08/04 07:37 Order name: XRAY Chest (1 view); Complete Time: 09:[address] [facility] 08/04 07:37 Order name: EKG; Complete Time: 07:[address] [facility] 08/04 07:37 Order name: Cardiac monitoring; Complete Time: 07:[address] [facility] 08/04 07:37 Order name: EKG - Nurse/Tech; Complete Time: 07:[address] [facility] 08/04 09:22 Order name: Urine Dipstick--Ancillary (enter results) bd 08/04 09:54 Order name: CONS Physician Consult EDNM 08/04 09:54 Order name: Echo with Doppler EDNM 08/04 09:57 Order name: Diet Regular; Complete Time: 09:57 hb 04 07:37 Order name: IV Saline Lock; Complete Time: 08:17 mónica 08/04 07:37 Order name: Labs collected and sent; Complete Time: 08:17 mónica 08/04 07:37 Order name: O2 Per Protocol; Complete Time: 07:38 mónica 08/04 07:37 Order name: O2 Sat Monitoring; Complete Time: 07:[address] [facility] 06/04 07:37 Order name: Urine Dipstick-Ancillary (obtain specimen); Complete Time: 09:23 mónica Administered Medications: Discontinued: NS 0.9% 1000 ml IV at 125 ml/hr continuous 07:45 Drug: NS 0.9% 1000 ml Route: IV; Rate: 125 ml/hr; Site: right antecubital; hb 08:16 Drug: hydrALAZINE 10 mg Route: PO; hb 09:00 Follow up: Response: No adverse reaction hb 08:16 Drug: hydrALAZINE 10 mg Route: IV; Rate: per protocol; Site: right antecubital; hb 08:16 Drug: Lovenox 1 mg/kg Route: Sub-Q; Site: abdomen; hb 09:00 Follow up: Response: No adverse reaction hb 08:16 Drug: PlaVIX 75 mg Route: PO; hb 09:00 Follow up: Response: No adverse reaction hb 08:17 Drug: Aspirin 162 mg Route: PO; hb 09:00 Follow up: Response: No adverse reaction hb 09:05 Drug: Tylenol 650 mg Route: PO; ph 09:58 Follow up: Response: No adverse reaction hb 09:57 Drug: Lasix 40 mg Route: IVP; Site: right antecubital; hb 10:30 Follow up: Response: No adverse reaction hb Disposition: 08/04/17 09:49 Hospitalization ordered by Dilma Michel for Observation. Preliminary diagnosis are Chest pain, unspecified, Unspecified combined systolic (congestive) and diastolic (congestive) heart failure, Chronic obstructive pulmonary disease with (acute) exacerbation. - Bed requested for Telemetry/MedSurg (observation). - Status is Observation. hb - Condition is Fair. - Problem is new. - Symptoms have improved. UTI on Admission? No Signatures: Dispatcher [employer] EDMS Lila Becker Corey, MD MD cha Williams, Irene, RN RN Sharon Luis RN RN Meri Salcedo RN RN Corrections: (The following items were deleted from the chart) 11:16 09:49 Hospitalization Ordered by Dilma Michel MD for Observation. Preliminary bd diagnosis is Chest pain, unspecified; Unspecified combined systolic (congestive) and diastolic (congestive) heart failure; Chronic obstructive pulmonary disease with (acute) exacerbation. Bed requested for Telemetry/MedSurg (observation). Status is Observation. Condition is Fair. Problem is new. Symptoms have improved. UTI on Admission? No. mónica 11:46 07:44 PMHx: Diabetes; iw iw 11:52 11:16 08/04/2017 09:49 Hospitalization Ordered by Dilma Michel MD for Observation. hb Preliminary diagnosis is Chest pain, unspecified; Unspecified combined systolic (congestive) and diastolic (congestive) heart failure; Chronic obstructive pulmonary disease with (acute) exacerbation. Bed requested for Telemetry/MedSurg (observation). Status is Observation. Condition is Fair. Problem is new. Symptoms have improved. UTI on Admission? No. bd
--- NOTE | 2017-08-04 09:50 | ER ---
Nurse's Notes [facility] Name: Mark Terrell Age: 66 yrs Sex: Male : 1950 Arrival Date: 08/04/2017 Time: 07:28 Bed 6 Private MD: None, None Diagnosis: Chest pain, unspecified;Unspecified combined systolic (congestive) and diastolic (congestive) heart failure;Chronic obstructive pulmonary disease with (acute) exacerbation Presentation: 08/04 07:40 Presenting complaint: Patient states: c/o left sided chest pain and difficulty iw breathing since 629 this morning, pt then rode his bicycle several miles to his friend's house to bring him to ER, pt 98% on RA. Transition of care: patient was not received from another setting of care. Onset of symptoms was August 04, 2017. Risk Assessment: Do you want to hurt yourself or someone else? Patient reports no desire to harm self or others. Initial Sepsis Screen: Does the patient meet any 2 criteria? No. Patient's initial sepsis screen is negative. Does the patient have a suspected source of infection? No. Patient's initial sepsis screen is negative. Care prior to arrival: None. 07:40 Method Of Arrival: Wheelchair iw 07:40 Acuity: ARIEL 3 iw Historical: - Allergies: 07:44 Benadryl; iw 07:44 PENICILLINS; iw - Home Meds: 08:05 Albuterol Inhl [Active]; aspirin 81 mg Oral TbEC 1 tab once daily [Active]; clopidogrel hb 75 mg Oral tab 1 tab once daily [Active]; furosemide 40 mg Oral tab 1 tab once daily [Active]; Lasix 20 mg oral tab once daily [Active]; metoprolol tartrate 50 mg Oral tab 1 tab 2 times per day [Active]; lisinopril 20 mg Oral tab 1 tab once daily [Active]; mometasone-formoterol 100mcg/5mcg inhalation [Active]; simvastatin 40 mg Oral tab 1 tab once daily [Active]; unk BP meds for High Blood Pressure [Active]; - PMHx: 07:44 Aneurysm; BRAIN; Atrial Fib; CHF; COPD; Hypertension; Prostate Cancer; iw 08:05 Cancer; PROSTATE; hb - PSHx: 07:44 prostate removed; Heart stents; iw - Immunization history:: Adult Immunizations unknown. - Ebola Screening: : Patient negative for fever greater than or equal to 101.5 degrees Fahrenheit, and additional compatible Ebola Virus Disease symptoms Patient denies exposure to infectious person Patient denies travel to an Ebola-affected area in the 21 days before illness onset No symptoms or risks identified at this time. - Family history:: not pertinent. - Social history:: Smoking status: Patient uses tobacco products, smokes one pack cigarettes per day. Screenin:46 Abuse screen: Denies threats or abuse. Denies injuries from another. Nutritional hb screening: No deficits noted. Tuberculosis screening: No symptoms or risk factors identified. Fall Risk None identified. Assessment: 08:01 General: Appears in no apparent distress. uncomfortable, Behavior is calm, cooperative. hb Pain: Complains of pain in chest Pain does not radiate. Pain currently is 8 out of 10 on a pain scale. Quality of pain is described as pressure, Pain began suddenly, 2 hours ago. Neuro: Level of Consciousness is awake, alert, obeys commands, Oriented to person, place, time, situation. Cardiovascular: Heart tones S1 S2 present Capillary refill < 3 seconds Patient's skin is warm and dry. Respiratory: Airway is patent Trachea midline Respiratory effort is even, mildly labored Breath sounds are diminished bilaterally. GI: No signs and/or symptoms were reported involving the gastrointestinal system. : No signs and/or symptoms were reported regarding the genitourinary system. EENT: No signs and/or symptoms were reported regarding the EENT system. Derm: No signs and/or symptoms reported regarding the dermatologic system. Skin is intact, is healthy with good turgor. Musculoskeletal: No signs and/or symptoms reported regarding the musculoskeletal system. 09:00 Reassessment: No changes from previously documented assessment. Patient and/or family hb updated on plan of care and expected duration. Pain level reassessed. 10:02 Reassessment: Respirations mildly labored, R22, SpO2 >96% on 2LNC. Dr. Catalan aware. Food tray ordered as requested. Admission ordered, awaiting room assignment at this time. 11:00 Reassessment: No changes from previously documented assessment. Patient and/or family hb updated on plan of care and expected duration. Pain level reassessed. Vital Signs: 07:44 BP 179 / 117; Pulse 93; Resp 20 S; Temp 98.2; Pulse Ox 98% on R/A; Weight 85.73 kg (M); iw Height 5 ft. 11 in. (180.34 cm); Pain 8/10; 08:09 BP 178 / 109; Pulse 84; Resp 24; Pulse Ox 99% on 2 lpm NC; Pain 8/10; hb 08:49 BP 151 / 111; Pulse 89; Resp 20; Pulse Ox 100% on 2 lpm NC; jb1 09:32 BP 167 / 109; Pulse 81; Resp 18; Pulse Ox 99% on 2 lpm NC; hb 10:35 BP 172 / 103; Pulse 89; Resp 21; Pulse Ox 99% on 2 lpm NC; hb 11:30 BP 175 / 100; Pulse 88; Resp 19; Pulse Ox 98% on 2 lpm NC; hb 07:44 Body Mass Index 26.36 (85.73 kg, 180.34 cm) iw ED Course: 07:28 Patient arrived in ED. mr 07:28 None, None is Private Physician. mr 07:34 Satish Catalan MD is Attending Physician. mónica 07:43 Triage completed. iw 07:44 Arm band placed on. iw 07:45 First set of blood cultures drawn by me. Inserted saline lock: 20 gauge in right hb antecubital area, using aseptic technique. Blood collected. 07:46 Patient has correct armband on for positive identification. Placed in gown. Bed in low hb position. Call light in reach. Side rails up X 1. alarm security or surveillance monitor on. Pulse ox on. NIBP on. 07:46 Oxygen administration via nasal cannula \T\ 2L/min. hb 07:58 Meri Salcedo, RN is Primary Nurse. hb 08:03 EKG done, by loom technician. reviewed by Satish Catalan MD. at1 08:05 XRAY Chest (1 view) In Process Unspecified. EDMS 09:22 Urine collected: clean catch specimen, cloudy, jonathan colored. jb1 09:49 Dilma Michel MD is Hospitalizing Provider. mónica 11:50 No provider procedures requiring assistance completed. Patient admitted, IV remains in hb place. Administered Medications: Discontinued: NS 0.9% 1000 ml IV at 125 ml/hr continuous 07:45 Drug: NS 0.9% 1000 ml Route: IV; Rate: 125 ml/hr; Site: right antecubital; hb 08:16 Drug: hydrALAZINE 10 mg Route: PO; hb 09:00 Follow up: Response: No adverse reaction hb 08:16 Drug: hydrALAZINE 10 mg Route: IV; Rate: per protocol; Site: right antecubital; hb 08:16 Drug: Lovenox 1 mg/kg Route: Sub-Q; Site: abdomen; hb 09:00 Follow up: Response: No adverse reaction hb 08:16 Drug: PlaVIX 75 mg Route: PO; hb 09:00 Follow up: Response: No adverse reaction hb 08:17 Drug: Aspirin 162 mg Route: PO; hb 09:00 Follow up: Response: No adverse reaction hb 09:05 Drug: Tylenol 650 mg Route: PO; ph 09:58 Follow up: Response: No adverse reaction hb 09:57 Drug: Lasix 40 mg Route: IVP; Site: right antecubital; hb 10:30 Follow up: Response: No adverse reaction hb Outcome: 09:49 Decision to Hospitalize by Provider. mónica 11:50 Admitted to Tele accompanied by tech, via wheelchair, room 402, with oxygen, with chart.hb 11:50 Condition: stable 11:50 Instructed on the need for admit, Demonstrated understanding of instructions. 11:52 Patient left the ED. hb Signatures: Dispatcher [employer] EDMS Matthew Colón jb1 Satish Catalan MD MD cha Rivera, Maria mr Williams, Irene, RN RN iw Liane chen, geospatial specialist EKG Tat1 Sharon Luis RN RN ph Baxter, Heather, RN RN hb Corrections: (The following items were deleted from the chart) 10:03 09:00 Reassessment: Patient appears in no apparent distress at this time. No changes hb from previously documented assessment. Patient and/or family updated on plan of care and expected duration. Pain level reassessed. Patient is alert, oriented x 3, equal unlabored respirations, skin warm/dry/pink. hb 11:46 07:44 PMHx: Diabetes; luciana chowdhury
[2017-08-04] MEDS ORDERED: FUROSEMIDE 40 MG/4 ML VIAL ONE (09:57)
[2017-08-04 10:00] LABS: Urine Blood TRACE (NEG); Urine Glucose NEGATIVE (NEG); Urine Protein 2+ (NEG); Urine Specific Gravity 1.025 (1.005-1.030); Urine pH 5.5 (5.0-7.0)
[2017-08-04] MEDS ORDERED: ONDANSETRON 4 MG/2 ML VIAL IV PRN (10:06)
[2017-08-04 10:12] LABS: Anisocytosis 3+; Blood Morphology Comment NOTED (NOT SEEN); Hypochromasia 3+; Platelet Estimate ADEQ; Poikilocytosis 2+; Urine White Blood Cell Casts OK
--- NOTE | 2017-08-04 11:10 | P.HP ---
Certification for Inpatient Patient admitted to: Observation With expected LOS: <2 Midnights Patient will require the following post-hospital care: None Practitioner: I am a practitioner with admitting privileges, knowledge of patient current condition, hospital course, and medical plan of care. Services: Services provided to patient in accordance with Admission requirements found in Title 42 Section 412.3 of the Code of Federal Regulations Patient History Date of Service: 08/04/17 Primary Care Provider: None Reason for admission: CHF exacerbation History of Present Illness: The patient is a 66-year-old male with past medical history of congestive heart failure, hypertension, history of brain aneurysm, COPD, tobacco abuse, noncompliance, heart disease with stents, diabetes, hyperlipidemia, comes in with shortness of breath and swelling in his LE. Patient has been admitted to the hospital frequently for similar symptoms in the past. Initially patient was noncompliant with medication due to cost of medication, however states now he takes medication as it was arranged for him at a lower cost. He states he was in his usual state of health, until this AM where he started feeling SOB. He biked to his friends house and was then brought to the ER for further care. Pt states that he has been eating Sonic and Ramen noodles since he was recently evacuated out of his Apartment and has no place to go and limited on the money to buy anything else. He is also noncompliant with this 1500 mL fluid restriction. The patient states that he has been compliant with his medications and has brought them with him to the motel he is in. The patient does have some lower extremity swelling as well. Denies any chest pain, cough, sputum production, ill contacts or fever. Upon arrival to the ER, his vital signs showed a elevated blood pressure 177/ 108 with O2 at 83%, he then was placed on 2 L of oxygen and improved to 98%. The patient was referred for admission for congestive heart failure. His symptoms are constant, moderate, progressively worsening, worsened with laying flat. When seen in the ER, he was awake, alert, oriented x3, in some mild distress. Allergies diphenhydramine HCl [From Benadryl] Allergy (Mild, Verified 07/07/17 21:31) Hives Home Medications: Aspirin [Aspirin EC 81 MG] 81 mg PO DAILY #90 tablet. 07/10/17 Clopidogrel Bisulfate [Plavix*] 75 mg PO DAILY #90 tablet 07/10/17 Furosemide [Lasix*] 40 mg PO DAILY #90 tab 07/10/17 Lisinopril [Prinivil*] 20 mg PO DAILY 90 Days #30 tab 07/10/17 Metoprolol Tartrate [Lopressor*] 50 mg PO BID #180 tab 07/10/17 Mometasone/Formoterol [Dulera 100 Mcg/5 Mcg Inhaler] 1 inh IH TIDP PRN 07/19/17 Simvastatin 40 mg PO BEDTIME 07/19/17 - Past Medical/Surgical History Diabetic: No -: History of prostate cancer -: Hypertension -: History of brain aneurysm requiring surgery -: CHF, systolic dysfunction -: COPD -: Tobacco abuse -: Noncompliance -: Coronary disease, stents x3 to LAD/RCA(Feb 2016) -: Diabetes mellitus type 2 -: GERD -: anemia -: hyperlipidemia -: Prostate surgery -: Brain aneurysm surgery -: Toe surgery R. great toe/childhood -: Heart catheterization-3stents LAD/RCA Psychosocial/ Personal History: He is single, lives alone. He has no children. 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 - Family History Father -: Cancer Notes: BRAIN CA Mother -: Cancer Notes: PANCREATIC CANCER Brother -: Cancer Notes: lung cancer - Social History Alcohol use: No CD- Drugs: No Caffeine use: Yes Review of Systems General: As per HPI Physical Examination - Physical Exam General: Alert, Oriented x3, Moderate distress HEENT: Atraumatic Neck: Supple, 2+ carotid pulse no bruit, JVD distended Respiratory: Normal air movement, Crackles/rales Cardiovascular: Regular rate/rhythm, Normal S1 S2 Gastrointestinal: Normal bowel sounds, Soft and benign, Non-distended, No tenderness Musculoskeletal: No tenderness, Swelling (1+ BL LE) Integumentary: No rashes Neurological: Normal speech, Normal strength at 5/5 x4 extr, Normal tone Lymphatics: No axilla or inguinal lymphadenopathy - Studies Laboratory Data (last 24 hrs) 08/04/17 07:45: PT 16.1 H, INR 1.36, APTT 28.7 08/04/17 07:45: WBC 9.3, Hgb 9.8 L, Hct 33.7 L, Plt Count 242 08/04/17 07:45: B-Natriuretic Peptide 2400 H 08/04/17 07:45: Sodium 138, Potassium 4.4, BUN 27 H, Creatinine 1.25 H, Glucose 137 H, Magnesium 1.8, Total Bilirubin 0.8, AST 19, ALT 14, Alkaline Phosphatase 88, Lipase 32 Assessment and Plan - Problems (Diagnosis) (1) CHF exacerbation Current Visit: No Status: Acute Plan: Acute on Chronic CHF exacerbation. -Recent ECHO in July 2017 with EF of 45% and dystolic dysfunction -On Metoprolol 50mg BID, Lisinopril 20mg daily and Lasix 40mg at home. -Will Start on IV lasix 40mg BID and continue BB and lisinopril at home dose. -Fluid restriction and Low sodium Diet. -Cardiology consulted. -Educated on Diet modification and need for compliance with Fluid restriction and diet. However patient voiced, it is financially not possible for patient to have diet modification as he eats whatever he can afford. Will get Social service consult to provide with resources for the patients. Qualifiers: Heart failure type: combined systolic and diastolic (2) CAD (coronary artery disease) Current Visit: No Status: Chronic Plan: Restart Home medication -Recent Stent placement after NSTEMI here in the hospital -On ASA and plavix. Will continue. Qualifiers: Coronary Disease-Associated Artery/Lesion type: [place] artery [place] vs. transplanted heart: [place] heart Associated angina: without angina Qualified Code(s): I25.10 - Atherosclerotic heart disease of [place] coronary artery without angina pectoris (3) COPD (chronic obstructive pulmonary disease) Onset Date: 03/21/15 Current Visit: No Status: Chronic Plan: PRN Nebs Qualifiers: COPD type: unspecified COPD Qualified Code(s): J44.9 - Chronic obstructive pulmonary disease, unspecified (4) Chronic renal disease Onset Date: 03/31/17 Current Visit: No Status: Chronic Plan: Currently stable. Qualifiers: Chronic kidney disease stage: stage 3 (moderate) (5) GERD (gastroesophageal reflux disease) Onset Date: 02/17/17 Current Visit: No Status: Chronic Plan: Restart Protonix Qualifiers: Esophagitis presence: without esophagitis (6) Hyperlipidemia Onset Date: 07/19/16 Current Visit: No Status: Chronic Plan: Restart home medication Simvastatin 40mg daily Qualifiers: Hyperlipidemia type: mixed hyperlipidemia (7) Hypertension Onset Date: 02/05/16 Current Visit: No Status: Chronic Plan: Restart Home medication -Currently Hypertensive due to volume overload. -Will recheck post Lasix Qualifiers: Hypertension type: essential hypertension (8) Nicotine dependence Onset Date: 04/03/17 Current Visit: No Status: Chronic Qualifiers: Nicotine product type: other Substance use status: in remission Qualified Code(s): F17.291 - Nicotine dependence, other tobacco product, in remission (9) Type 2 diabetes mellitus Onset Date: 12/10/16 Current Visit: No Status: Chronic Qualifiers: Diabetes mellitus adjunct faculty for medical terminology insulin use: without adjunct faculty for medical terminology use Diabetes mellitus complication status: without complication Qualified Code(s): E11.9 - Type 2 diabetes mellitus without complications (10) Noncompliance Onset Date: 03/18/16 Current Visit: No Status: Chronic Plan: Educated on Diet modification and need for compliance with Fluid restriction and diet. However patient voiced, it is financially not possible for patient to have diet modification as he eats whatever he can afford. Will get Social service consult to provide with resources for the patients. (11) Brain aneurysm Current Visit: No Status: Chronic Discharge Plan: Other Plan to discharge in: 48 Hours - Advance Directives Does patient have a Living Will: No Does patient have a Durable POA for Healthcare: No - Code Status/Comfort Care Code Status Assessed: Yes Critical Care: No
[2017-08-04] MEDS: FUROSEMIDE 40 MG/4 ML VIAL IV SCH (16:53)
--- NOTE | 2017-08-04 18:00 | CON ---
History Of Present Illness: Mr. Terrell is in our hospital with shortness of breath and chest pain. Mr. Terrell has a very depressed ejection fraction, chronic congestive heart failure, and he has c oronary heart disease. He has had several stents placed in his heart. Just a few weeks ago, he had a balloon angioplasty of the lesion just distal to his right coronary stent. He seemed to be doing w ell after that. When he went home, he had as usual some trouble getting his medications. He was kic ked out of his living place. 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 F or several nights, he slept in a wooded area. For the last 3 nights, he has been in a hotel room. H e has now run out of money and will not be able to stay there. Since being here in the hospital, he has had cardiac enzymes that are slightly elevated. He is feeling better. His hemoglobin is 9.8, cr eatinine 1.25, troponin 0.04, B-natriuretic peptide 2265. Physical Examination: General: Mr. Terrell appears to be older than his stated age, ill. He is alert, oriented, pleasant , not in distress. Lungs: Reveal some sparse basilar crackles. Heart: Reveals an S4 gallop. Abdomen: Soft. Extremities: Diminished distal pulses. Diagnostic Data: His electrocardiogram does not look significantly different from his older EKGs. Assessment And Plan: I believe he has stable CAD, CHF, may be slightly out of time thinking his layo ng situation has what made him have to come here. I think if we can get him back on his medicines an d there was some service that would provide for living quarters for him, perhaps he could be in [facility]. I am not sure, but he needs some kind of help, so he does not sleep in a wooded lot with medical problems like he has. WAYNE/MARY ANN Voice ID: [id number] Report ID: [id number]
[2017-08-04] MEDS: ATORVASTATIN 20 MG TAB PO SCH (20:44)
[2017-08-04] MEDS: METOPROLOL TAR 50 MG TAB PO SCH (20:44)
[2017-08-04] MEDS: ACETAMINOPHEN 500 MG TAB PO PRN (22:32)
[2017-08-05] MEDS ORDERED: MAGNESIUM SULFATE 1 gm IVPB 1 GM/100 ML BAG IV ONE
[2017-08-05] MEDS: ACETAMINOPHEN 500 MG TAB PO PRN (02:29)
[2017-08-05 04:59] LABS: Absolute Lymphocytes (CBC) 1.8 K/uL (0.7-4.9); Absolute Neutrophil 4.5 K/uL (1.8-8.0); Basophils % 1.2 % (0-1.3); Eosinophils % 9.7 % (0-4.4); Hematocrit 32.1 % (39.6-49.0); Lymphocytes % 21.6 % (15.3-44.8); MCH 17.3 pg (27.0-35.0); MPV 9.4 fL (7.6-11.3); Monocytes % 12.7 % (3.3-12.3); RBC Red Blood Cell Count 5.46 M/uL (4.33-5.43)
[2017-08-05 05:05] LABS: MCV 58.8 fL (80-100)
[2017-08-05 05:13] LABS: Albumin 3.4 g/dL (3.2-5.5); Potassium 4.2 mEq/L (3.6-5.0); Protein, Total 6.1 g/dL (6.0-8.3)
[2017-08-05 05:29] LABS: Phosphorus 4.1 mg/dL (2.5-4.3)
[2017-08-05] MEDS: FUROSEMIDE 40 MG/4 ML VIAL IV SCH ×2 (09:46→17:53)
[2017-08-05] MEDS: METOPROLOL TAR 50 MG TAB PO SCH ×2 (09:46→20:41)
[2017-08-05] MEDS: ASPIRIN EC 81 MG TAB PO SCH (09:46)
[2017-08-05] MEDS: LISINOPRIL 20 MG TAB PO SCH (09:46)
[2017-08-05] MEDS: CLOPIDOGREL 75 MG TABLET PO SCH (09:46)
--- NOTE | 2017-08-05 14:18 | P.PN ---
Subjective Date of Service: 08/05/17 Primary Care Provider: None Chief Complaint: CHF exacerbation Patient seen and examined at bedside with RN. Chart reviewed. Case discussed with cardiology. Currently patient is homeless and we are in process of finding placement for the patient at the [facility]. We a has been contacted awaiting information regarding [facility] placement for the patient. Review of Systems General: As per HPI Physical Examination - Vital Signs Temperature: 972 F Blood Pressure: 141/77 Pulse: 61 Respirations: 18 Pulse Ox (%): 98 - Physical Exam General: Alert, In no apparent distress HEENT: Atraumatic, PERRLA, EOMI Neck: Supple, JVD not distended Respiratory: Clear to auscultation bilaterally, Normal air movement Cardiovascular: Regular rate/rhythm, Normal S1 S2 Gastrointestinal: Normal bowel sounds, No tenderness Musculoskeletal: No tenderness Integumentary: No rashes Neurological: Normal speech, Normal tone, Normal affect Lymphatics: No axilla or inguinal lymphadenopathy - Studies Medications List Reviewed: Yes Assessment & Plan - Problems (Diagnosis) (1) CHF exacerbation Onset Date: 08/05/17 Current Visit: Yes Status: Acute Plan: Acute on Chronic CHF exacerbation. -Recent ECHO in July 2017 with EF of 45% and dystolic dysfunction -On Metoprolol 50mg BID, Lisinopril 20mg daily and Lasix 40mg at home. -Will Start on IV lasix 40mg BID and continue BB and lisinopril at home dose. -Fluid restriction and Low sodium Diet. -Cardiology consulted. -Educated on Diet modification and need for compliance with Fluid restriction and diet. However patient voiced, it is financially not possible for patient to have diet modification as he eats whatever he can afford. Social service consult to provide with resources for the patients. Qualifiers: Heart failure type: combined systolic and diastolic (2) CAD (coronary artery disease) Current Visit: No Status: Chronic Plan: Restart Home medication -Recent Stent placement after NSTEMI here in the hospital -On ASA and plavix. Will continue. Qualifiers: Coronary Disease-Associated Artery/Lesion type: [place] artery [place] vs. transplanted heart: [place] heart Associated angina: without angina Qualified Code(s): I25.10 - Atherosclerotic heart disease of [place] coronary artery without angina pectoris (3) COPD (chronic obstructive pulmonary disease) Onset Date: 03/21/15 Current Visit: No Status: Chronic Plan: PRN Nebs Qualifiers: COPD type: unspecified COPD Qualified Code(s): J44.9 - Chronic obstructive pulmonary disease, unspecified (4) Chronic renal disease Onset Date: 03/31/17 Current Visit: No Status: Chronic Plan: Currently stable. Qualifiers: Chronic kidney disease stage: stage 3 (moderate) (5) GERD (gastroesophageal reflux disease) Onset Date: 02/17/17 Current Visit: No Status: Chronic Plan: Restart Protonix Qualifiers: Esophagitis presence: without esophagitis (6) Hyperlipidemia Onset Date: 07/19/16 Current Visit: No Status: Chronic Plan: Restart home medication Simvastatin 40mg daily Qualifiers: Hyperlipidemia type: mixed hyperlipidemia (7) Hypertension Onset Date: 02/05/16 Current Visit: No Status: Chronic Plan: Restart Home medication -Currently Hypertensive due to volume overload. 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 However patient voiced, it is financially not possible for patient to have diet modification as he eats whatever he can afford. Will get Social service consult to provide with resources for the patients. (11) Brain aneurysm Onset Date: 08/05/17 Current Visit: Yes Status: Chronic Discharge Plan: Other Plan to discharge in: 48 Hours - Code Status/Comfort Care Code Status Assessed: Yes Critical Care: No
[2017-08-05 16:22] VITALS: O2SAT 96
[2017-08-05] MEDS: ATORVASTATIN 20 MG TAB PO SCH (20:41)
--- NOTE | 2017-08-05 23:58 | PN ---
Date of Progress Note: 08/05/2017 History: Mr. Terrell was seen by Dr. Willams yesterday for one of his multiple recurrent admissions to the hospital for CHF disease and COPD. Mr. Terrell actually he was living and works close to ___ 2003. Social work has been involved and I think the best I could do is refer him to the [facility]. He is stable from a cardiovascular standpoint and so he can leave the hospital whenever it is okay with Dr. Michel. I wish there was something more of can provide him they can avoid readmission to the hospital. No changes in his home therapy . ZHEN/MARY ANN Voice ID: [id number] Report ID: [id number]
[2017-08-06 06:09] VITALS: BMI 22.1
[2017-08-06 06:28] LABS: Absolute Lymphocytes (CBC) 2.2 K/uL (0.7-4.9); Absolute Monocytes 1.4 K/uL (0.1-1.3); Basophils % 1.1 % (0-1.3); Eosinophils % 10.1 % (0-4.4); Hematocrit 34.2 % (39.6-49.0); Lymphocytes % 26.1 % (15.3-44.8); MCH 17.2 pg (27.0-35.0); MCV 58.1 fL (80-100); MPV 9.6 fL (7.6-11.3); RBC Red Blood Cell Count 5.88 M/uL (4.33-5.43)
[2017-08-06 06:42] LABS: Albumin 3.4 g/dL (3.2-5.5); Bilirubin Total 0.8 mg/dL (0.3-1.2); Potassium 4.4 mEq/L (3.6-5.0)
[2017-08-06 07:16] LABS: Platelet Estimate ADEQ
[2017-08-06 07:17] LABS: Anisocytosis 2+; Blood Morphology Comment NOTED (NOT SEEN); Hypochromasia 2+; Poikilocytosis 2+; Target Cells 1+
[2017-08-06] MEDS: FUROSEMIDE 40 MG/4 ML VIAL IV SCH ×2 (09:14→17:31)
[2017-08-06] MEDS: ASPIRIN EC 81 MG TAB PO SCH (09:14)
[2017-08-06] MEDS: LISINOPRIL 20 MG TAB PO SCH (09:15)
[2017-08-06] MEDS: CLOPIDOGREL 75 MG TABLET PO SCH (09:15)
[2017-08-06] MEDS: METOPROLOL TAR 50 MG TAB PO SCH (09:15)
[2017-08-06 11:55] VITALS: TEMP 98.7
[2017-08-06 16:41] VITALS: BP 130/73
--- NOTE | 2017-08-14 13:00 | P.DS ---
Admission Date: 08/04/17 Discharge Date: 08/14/17 Primary Care Provider: Kacey Disposition: ROUTINE DISCHARGE Discharge Condition: GOOD Reason for Admission: CHF exacerbation Consultations: Cardiology - Problems (1) CHF exacerbation Onset Date: 08/05/17 Status: Acute Qualifiers: Heart failure type: combined systolic and diastolic (2) CAD (coronary artery disease) Status: Chronic Qualifiers: Coronary Disease-Associated Artery/Lesion type: [place] artery [place] vs. transplanted heart: [place] heart Associated angina: without angina Qualified Code(s): I25.10 - Atherosclerotic heart disease of [place] coronary artery without angina pectoris (3) COPD (chronic obstructive pulmonary disease) Onset Date: 03/21/15 Status: Chronic Qualifiers: COPD type: unspecified COPD Qualified Code(s): J44.9 - Chronic obstructive pulmonary disease, unspecified (4) Chronic renal disease Onset Date: 03/31/17 Status: Chronic Qualifiers: Chronic kidney disease stage: stage 3 (moderate) (5) GERD (gastroesophageal reflux disease) Onset Date: 02/17/17 Status: Chronic Qualifiers: Esophagitis presence: without esophagitis (6) Hyperlipidemia Onset Date: 07/19/16 Status: Chronic Qualifiers: Hyperlipidemia type: mixed hyperlipidemia (7) Hypertension Onset Date: 02/05/16 Status: Chronic Qualifiers: Hypertension type: essential hypertension (8) Nicotine dependence Onset Date: 04/03/17 Status: Chronic Qualifiers: Nicotine product type: other Substance use status: in remission Qualified Code(s): F17.291 - Nicotine dependence, other tobacco product, in remission (9) Type 2 diabetes mellitus Onset Date: 12/10/16 Status: Chronic Qualifiers: Diabetes mellitus [facility] insulin use: 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 Patient has been admitted to the hospital frequently for similar symptoms in the past. Initially patient was noncompliant with medication due to cost of medication, however states now he takes medication as it was arranged for him at a lower cost. He states he was in his usual state of health, until this AM where he started feeling SOB. He biked to his friends house and was then brought to the ER for further care. Pt states that he has been eating Sonic and Ramen noodles since he was recently evacuated out of his Apartment and has no place to go and limited on the money to buy anything else. He is also noncompliant with this 1500 mL fluid restriction. The patient states that he has been compliant with his medications and has brought them with him to the motel he is in. The patient does have some lower extremity swelling as well. Denies any chest pain, cough, sputum production, ill contacts or fever. Upon arrival to the ER, his vital signs showed a elevated blood pressure 177/ 108 with O2 at 83%, he then was placed on 2 L of oxygen and improved to 98%. The patient was referred for admission for congestive heart failure. His symptoms are constant, moderate, progressively worsening, worsened with laying flat. When seen in the ER, he was awake, alert, oriented x3, in some mild distress. Hospital Course: Overall during the hospital course patient remained stable The patient was initially admitted to the hospital for CHF exacerbation most likely secondary to noncompliance with diet. Patient is currently homeless thus it is hard for him to be compliant with diet modification required for CHF. Patient however does try it at his best. Was admitted for CHF exacerbation was given IV Lasix and had marked improvement in day 2. Patient was then discharged home under stable condition and was asked [facility] and see if they have any beds available there. Patient was also asked to compliant with fluid restriction of 1.2 L daily along with compliance with his medication. Vital Signs/Physical Exam: Temp Pulse Resp BP Pulse Ox 98.7 F 61 18 130/73 96 08/06/17 16:00 08/06/17 17:31 08/06/17 16:00 08/06/17 17:31 08/06/17 16:00 General: Alert, In no apparent distress HEENT: Atraumatic, PERRLA, EOMI Neck: Supple, JVD not distended Respiratory: Clear to auscultation bilaterally, Normal air movement Cardiovascular: Regular rate/rhythm, Normal S1 S2 Gastrointestinal: Normal bowel sounds, No tenderness Musculoskeletal: No tenderness Integumentary: No rashes Neurological: Normal speech, Normal tone, Normal affect Lymphatics: No axilla or inguinal lymphadenopathy Laboratory Data at Discharge: WBC 8.6 K/uL (4.3-10.9) 08/06/17 05:39 Hgb 10.1 g/dL (13.6-17.9) L 08/06/17 05:39 Hct 34.2 % (39.6-49.0) L 08/06/17 05:39 Plt Count 237 K/uL (152-406) 08/06/17 05:39 PT 16.1 SECONDS (9.5-12.5) H 08/04/17 07:45 INR 1.36 08/04/17 07:45 APTT 28.7 SECONDS (24.3-36.9) 08/04/17 07:45 Sodium 136 mEq/L (135-145) 08/06/17 05:39 Potassium 4.4 mEq/L (3.6-5.0) 08/06/17 05:39 BUN 22 mg/dL (6-20) H 08/06/17 05:39 Creatinine 1.50 mg/dL (0.61-1.24) H 08/06/17 05:39 Glucose 111 mg/dL (65-120) 08/06/17 05:39 Phosphorus 4.1 mg/dL (2.5-4.3) 08/05/17 04:12 Magnesium 2.0 mg/dL (1.8-2.5) 08/05/17 04:12 Total Bilirubin 0.8 mg/dL (0.3-1.2) 08/06/17 05:39 AST 16 IU/L (10-42) 08/06/17 05:39 ALT 12 IU/L (10-60) 08/06/17 05:39 Alkaline Phosphatase 69 IU/L (42-121) 08/06/17 05:39 B-Natriuretic Peptide 480 pg/ml (<=100) H 08/06/17 12:20 Lipase 32 U/L (22-51) 08/04/17 07:45 Home Medications: Aspirin [Aspirin EC 81 MG] 81 mg PO DAILY #90 tablet. 07/10/17 Clopidogrel Bisulfate [Plavix*] 75 mg PO DAILY #90 tablet 07/10/17 Furosemide [Lasix*] 40 mg PO DAILY #90 tab 07/10/17 Lisinopril [Prinivil*] 20 mg PO DAILY 90 Days #30 tab 07/10/17 Metoprolol Tartrate [Lopressor*] 50 mg PO BID #180 tab 07/10/17 Simvastatin 40 mg PO BEDTIME 07/19/17 Followup: Jitendra Willams MD [ACTIVE - CAN ADMIT] - (call office to make a follow up appointment in 2-3 weeks. )
== END 2017-08-06 20:25 | disposition home or self-care (01) ==
LOC: ER 07:26 → ERHOLD 09:52 → 4TH 11:40
PROVIDERS: ADMIT Family Medicine; ATTEND Family Medicine
DX: I13.0 Hypertensive heart and chronic kidney disease with heart failure and stage 1 through stage 4 chronic kidney disease, or unspecified chronic kidney disease (principal); I50.33 Acute on chronic diastolic (congestive) heart failure; N18.3 Chronic kidney disease, stage 3 (moderate); E11.22 Type 2 diabetes mellitus with diabetic chronic kidney disease; Z91.11 Patient's noncompliance with dietary regimen; Z59.0 Homelessness; J44.9 Chronic obstructive pulmonary disease, unspecified; I25.10 Atherosclerotic heart disease of native coronary artery without angina pectoris; K21.9 Gastro-esophageal reflux disease without esophagitis; E78.5 Hyperlipidemia, unspecified; F17.210 Nicotine dependence, cigarettes, uncomplicated; I67.1 Cerebral aneurysm, nonruptured; Z85.46 Personal history of malignant neoplasm of prostate
CPT/HCPCS: 36415; 71045; 80048; 80053; 80076; 81003; 82550; 82553; 82962; 83690; 83735; 83880; 84100; 84484; 85025; 85610; 85730; 87040; 87086; 87088; 93005; 96372; 96374; 96375; 99285; G0378; J0360; J1650; J3475; J7030

== ENCOUNTER 2017-08-16 06:31 | Emergency (ER) | payer OTHER ==
[2017-08-16] MEDS ORDERED: LEVALBUTEROL 1.25 MG/3 ML NEB ONE (06:49)
[2017-08-16] MEDS ORDERED: ASPIRIN 81 MG CHEWABLE TABLET ONE ×2 (06:49→06:50)
[2017-08-16] MEDS ORDERED: METOPROLOL TAR 50 MG TAB ONE (06:49)
[2017-08-16 07:11] LABS: Protime INR 1.17
[2017-08-16 07:19] LABS: Potassium 4.2 mEq/L (3.6-5.0)
[2017-08-16 07:20] LABS: Magnesium 1.8 mg/dL (1.8-2.5)
[2017-08-16 07:27] LABS: Absolute Lymphocytes (CBC) 2.5 K/uL (0.7-4.9); Eosinophils % 2.7 % (0-4.4)
[2017-08-16] MEDS ORDERED: NITROGLYCERIN 0.4 MG/TAB SL ONE (07:28)
[2017-08-16 07:44] LABS: Absolute Monocytes 1.3 K/uL (0.1-1.3); Basophils % 0.8 % (0-1.3); Hematocrit 30.9 % (39.6-49.0); Lymphocytes % 27.1 % (15.3-44.8); MCH 17.7 pg (27.0-35.0); MCV 58.6 fL (80-100); MPV 9.7 fL (7.6-11.3); Monocytes % 14.2 % (3.3-12.3); RBC Red Blood Cell Count 5.27 M/uL (4.33-5.43)
[2017-08-16 07:47] LABS: Platelet Estimate ADEQ; Urine White Blood Cell Casts OK
[2017-08-16 07:48] LABS: Anisocytosis 2+; Blood Morphology Comment NOTED (NOT SEEN); Hypochromasia 3+; Poikilocytosis 2+; Polychromasia 2+; Rouleau NOTED
--- NOTE | 2017-08-16 10:08 | EDPHYS ---
Physician Documentation [facility] Name: Mark Terrell Age: 66 yrs Sex: Male : 1950 Arrival Date: 08/16/2017 Time: 06:33 Bed 8 Private MD: ED Physician Jaylan Browne HPI: 08/16 08:59 This 66 yrs old Male presents to ER via EMS with complaints of Shortness Of jr8 Breath. 08:59 The patient has shortness of breath at rest. Onset: The symptoms/episode began/occurred jr8 acutely, today. Duration: The symptoms are continuous, and are unchanged since they started. The patient's shortness of breath is aggravated by walking. Associated signs and symptoms: Pertinent positives: chest pain. Severity of symptoms: At their worst the symptoms were mild in the emergency department the symptoms are unchanged. The patient has experienced similar episodes in the past, several times. The patient has not recently seen a physician. Historical: - Allergies: 06:37 Benadryl; tl2 06:37 PENICILLINS; tl2 - Home Meds: 06:37 Albuterol Inhl [Active]; aspirin 81 mg Oral TbEC 1 tab once daily [Active]; clopidogrel tl2 75 mg Oral tab 1 tab once daily [Active]; furosemide 40 mg Oral tab 1 tab once daily [Active]; Lasix 20 mg Oral tab once daily [Active]; lisinopril 20 mg Oral tab 1 tab once daily [Active]; metoprolol tartrate 50 mg Oral tab 1 tab 2 times per day [Active]; mometasone-formoterol 100mcg/5mcg inhalation [Active]; simvastatin 40 mg Oral tab 1 tab once daily [Active]; unk BP meds for High Blood Pressure [Active]; - PMHx: 06:37 Aneurysm; BRAIN; Atrial Fib; Cancer; PROSTATE; CHF; COPD; Hypertension; Prostate Cancer;tl2 - Immunization history:: Adult Immunizations up to date. - Social history:: Smoking status: Patient uses tobacco products, smokes one-half pack cigarettes per day. - Ebola Screening: : No symptoms or risks identified at this time. ROS: 08:59 Eyes: Negative for injury, pain, redness, and discharge, ENT: Negative for injury, jr8 pain, and discharge, Neck: Negative for injury, pain, and swelling, Abdomen/GI: Negative for abdominal pain, nausea, vomiting, diarrhea, and constipation, Back: Negative for injury and pain, MS/Extremity: Negative for injury and deformity, Skin: Negative for injury, rash, and discoloration, Neuro: Negative for headache, weakness, numbness, tingling, and seizure. 08:59 Cardiovascular: Positive for chest pain, Negative for edema, orthopnea, palpitations, paroxysmal nocturnal dyspnea. 08:59 Respiratory: Positive for shortness of breath. Exam: 08:59 Eyes: Pupils equal round and reactive to light, extra-ocular motions intact. Lids and jr8 lashes normal. Conjunctiva and sclera are non-icteric and not injected. Cornea within normal limits. Periorbital areas with no swelling, redness, or edema. ENT: Nares patent. No nasal discharge, no septal abnormalities noted. Tympanic membranes are normal and external auditory canals are clear. Oropharynx with no redness, swelling, or masses, exudates, or evidence of obstruction, uvula midline. Mucous membranes moist. Neck: Trachea midline, no thyromegaly or masses palpated, and no cervical lymphadenopathy. Supple, full range of motion without nuchal rigidity, or vertebral point tenderness. No Meningismus. Cardiovascular: Regular rate and rhythm with a normal S1 and S2. No gallops, murmurs, or rubs. Normal PMI, no JVD. No pulse deficits. Respiratory: Lungs have equal breath sounds bilaterally, clear to auscultation and percussion. No rales, rhonchi or wheezes noted. No increased work of breathing, no retractions or nasal flaring. Abdomen/GI: Soft, non-tender, with normal bowel sounds. No distension or tympany. No guarding or rebound. No evidence of tenderness throughout. Back: No spinal tenderness. No costovertebral tenderness. Full range of motion. Skin: Warm, dry with normal turgor. Normal color with no rashes, no lesions, and no evidence of cellulitis. MS/ Extremity: Pulses equal, no cyanosis. Neurovascular intact. Full, normal range of motion. Neuro: Awake and alert, GCS 15, oriented to person, place, time, and situation. Cranial nerves II-XII grossly intact. Motor strength 5/5 in all extremities. Sensory grossly intact. Cerebellar exam normal. Normal gait. Vital Signs: 06:35 BP 162 / 101; Pulse 82; Resp 17; Temp 98.4; Pulse Ox 98% on R/A; Weight 89.81 kg; tl2 Height 5 ft. 11 in. (180.34 cm); Pain 0/10; 07:28 BP 168 / 103; Pulse 72; Resp 18; Pulse Ox 98% on R/A; Pain 8/10; sg 07:49 BP 152 / 87; Pulse 56; Resp 17 S; Pulse Ox 98% on R/A; Pain 6/10; sg 08:30 BP 137 / 75; Pulse 69; Resp 17 S; Pulse Ox 98% on R/A; Pain 0/10; sg 09:03 BP 127 / 77; Pulse 66; Resp 16; Pulse Ox 98% on R/A; sg 06:35 Body Mass Index 27.62 (89.81 kg, 180.34 cm) tl2 MDM: 06:34 Patient medically screened. 8 10:02 Data reviewed: vital signs, nurses notes, lab test result(s), EKG, radiologic studies, jr8 plain films, and as a result, I will discharge patient. Data interpreted: Pulse oximetry: on room air is 98 %. Interpretation: normal. Counseling: I had a detailed discussion with the patient and/or guardian regarding: the historical points, exam findings, and any diagnostic results supporting the discharge/admit diagnosis, lab results, radiology results, the need for outpatient follow up, a family practitioner, to return to the emergency department if symptoms worsen or persist or if there are any questions or concerns that arise at home. 08/16 06:39 Order name: Basic Metabolic Panel; Complete Time: 07:48 08/16 06:39 Order name: BNP; Complete Time: 07:48 08/16 06:39 Order name: CBC with Diff; Complete Time: 07:49 08/16 06:39 Order name: Magnesium; Complete Time: 07:48 08/16 06:39 Order name: PT-INR; Complete Time: 07:48 08/16 06:39 Order name: Troponin (emerg Dept Use Only); Complete Time: 07:48 08/16 06:39 Order name: XRAY Chest (1 view); Complete Time: 10:24 08/16 06:39 Order name: EKG; Complete Time: 06:39 rust 08/16 07:47 Order name: CBC Smear Scan; Complete Time: 07:49 EDMO 08/16 09:20 Order name: Troponin (emerg Dept Use Only); Complete Time: 10:02 08/16 06:39 Order name: Cardiac monitoring; Complete Time: 06:48 rust 08/16 06:39 Order name: EKG - Nurse/Tech; Complete Time: 06:48 rust 08/16 06:39 Order name: IV Saline Lock; Complete Time: 06:48 rust 08/16 06:39 Order name: Labs collected and sent; Complete Time: 06:48 rust 08/16 06:39 Order name: O2 Per Protocol; Complete Time: 06:48 rust 08/16 06:39 Order name: O2 Sat Monitoring; Complete Time: 06:48 rust 08/16 08:25 Order name: Diet Regular; Complete Time: 08:26 ph Administered Medications: 06:49 Drug: Metoprolol 50 mg Route: PO; mg2 07:53 Follow up: Response: No adverse reaction; Blood pressure is lowered sg 06:50 Drug: Xopenex 1.25 mg Route: Inhalation; mg2 06:50 Drug: Aspirin Chewable Tablet 324 mg Route: PO; mg2 07:29 Follow up: Response: No adverse reaction sg 07:28 Drug: Nitroglycerin 0.4 mg Route: Sublingual; sg 07:52 Follow up: Response: No adverse reaction; Pain is decreased sg Disposition: 08/16/17 10:07 Discharged to Home. Impression: Chronic obstructive pulmonary disease with (acute) exacerbation, Chest pain, unspecified. - Condition is Stable. - Discharge Instructions: Nonspecific Chest Pain, Chronic Obstructive Pulmonary Disease. - Medication Reconciliation Form, Thank You Letter, Antibiotic Education, Prescription Opioid Use form. - Follow up: Private Physician; When: 2 - 3 days; Reason: Recheck today's complaints, Continuance of care, Re-evaluation by your physician. - Problem is new. - Symptoms have improved. Addendum: 08/18/2017 10:18 Co-signature as Attending Physician, Jaylan Browne MD I agree with the assessment and w a plan of care. Signatures: Dispatcher [employer] Keith Nelson RN RN sg Smirch, Shelby, RN RN Petar Camargo PA PA jr8 Nelia May RN RN tl2 Jaylan Browne MD MD wa Gardose, Michele, RN RN mg2 Corrections: (The following items were deleted from the chart) 08/16 10:07 10:07 08/16/2017 10:07 Discharged to Home. Impression: Chronic obstructive pulmonary jr8 disease with (acute) exacerbation. Condition is Stable. Forms are Medication Reconciliation Form, Thank You Letter, Antibiotic Education, Prescription Opioid Use. Follow up: Private Physician; When: 2 - 3 days; Reason: Recheck today's complaints, Continuance of care, Re-evaluation by your physician. Problem is new. Symptoms have improved. jr8 11:00 10:07 08/16/2017 10:07 Discharged to Home. Impression: Chronic obstructive pulmonary ss disease with (acute) exacerbation; Chest pain, unspecified. Condition is Stable. Forms are Medication Reconciliation Form, Thank You Letter, Antibiotic Education, Prescription Opioid Use. Follow up: Private Physician; When: 2 - 3 days; Reason: Recheck today's complaints, Continuance of care, Re-evaluation by your physician. Problem is new. Symptoms have improved. jr8
--- NOTE | 2017-08-16 10:08 | ER ---
Nurse's Notes [facility] Name: Mark Terrell Age: 66 yrs Sex: Male : 1950 Arrival Date: 08/16/2017 Time: 06:33 Bed 8 Private MD: Diagnosis: Chronic obstructive pulmonary disease with (acute) exacerbation;Chest pain, unspecified Presentation: 08/16 06:34 Presenting complaint: EMS states: Pt c/o shortness of breath. Pt is currently homeless tl2 and is non compliant with medications. Pt received neb treatment per EMS. Transition of care: patient was not received from another setting of care. Onset of symptoms was August 15, 2017. Risk Assessment: Do you want to hurt yourself or someone else? Patient reports no desire to harm self or others. Initial Sepsis Screen: Does the patient meet any 2 criteria? No. Patient's initial sepsis screen is negative. Does the patient have a suspected source of infection? No. Patient's initial sepsis screen is negative. Care prior to arrival: Medication(s) given: Albuterol Neb Atrovent Neb x 1. 06:34 Method Of Arrival: EMS: [facility] tl2 06:34 Acuity: ARIEL 3 tl2 Triage Assessment: 06:37 General: Appears in no apparent distress. comfortable, Behavior is calm, cooperative, tl2 appropriate for age. Pain: Denies pain. Respiratory: Reports shortness of breath Airway is patent Respiratory effort is even, unlabored, Respiratory pattern is tachypnea Onset: The symptoms/episode began/occurred yesterday, the patient has moderate shortness of breath. Historical: - Allergies: 06:37 Benadryl; tl2 06:37 PENICILLINS; tl2 - Home Meds: 06:37 Albuterol Inhl [Active]; aspirin 81 mg Oral TbEC 1 tab once daily [Active]; clopidogrel tl2 75 mg Oral tab 1 tab once daily [Active]; furosemide 40 mg Oral tab 1 tab once daily [Active]; Lasix 20 mg Oral tab once daily [Active]; lisinopril 20 mg Oral tab 1 tab once daily [Active]; metoprolol tartrate 50 mg Oral tab 1 tab 2 times per day [Active]; mometasone-formoterol 100mcg/5mcg inhalation [Active]; simvastatin 40 mg Oral tab 1 tab once daily [Active]; unk BP meds for High Blood Pressure [Active]; - PMHx: 06:37 Aneurysm; BRAIN; Atrial Fib; Cancer; PROSTATE; CHF; COPD; Hypertension; Prostate Cancer;tl2 - Immunization history:: Adult Immunizations up to date. - Social history:: Smoking status: Patient uses tobacco products, smokes one-half pack cigarettes per day. - Ebola Screening: : No symptoms or risks identified at this time. Screenin:36 Abuse screen: Denies threats or abuse. Denies injuries from another. Nutritional mg2 screening: No deficits noted. Tuberculosis screening: No symptoms or risk factors identified. Fall Risk None identified. Assessment: 06:34 General: Appears in no apparent distress. comfortable, Behavior is calm, cooperative. mg2 Pain: Denies pain. Neuro: Level of Consciousness is awake, alert, obeys commands, Oriented to person, place, time, situation. Cardiovascular: Capillary refill < 3 seconds. Respiratory: Airway is patent. GI: No signs and/or symptoms were reported involving the gastrointestinal system. : No signs and/or symptoms were reported regarding the genitourinary system. EENT: No signs and/or symptoms were reported regarding the EENT system. Derm: Skin is intact. Musculoskeletal: No signs and/or symptoms reported regarding the musculoskeletal system. 06:37 Respiratory: Breath sounds are clear bilaterally. mg2 06:37 Cardiovascular: Rhythm is regular. mg2 07:20 Reassessment: Patient appears in no apparent distress at this time. Patient and/or sg family updated on plan of care and expected duration. Pain level reassessed. Patient is alert, oriented x 3, equal unlabored respirations, skin warm/dry/pink. pt c/o substernal CP, nonradiating, a 10/10. Luis ADAMES notified, new orders received, pt medicated see EMAR. Vital Signs: 06:35 BP 162 / 101; Pulse 82; Resp 17; Temp 98.4; Pulse Ox 98% on R/A; Weight 89.81 kg; tl2 Height 5 ft. 11 in. (180.34 cm); Pain 0/10; 07:28 BP 168 / 103; Pulse 72; Resp 18; Pulse Ox 98% on R/A; Pain 8/10; sg 07:49 BP 152 / 87; Pulse 56; Resp 17 S; Pulse Ox 98% on R/A; Pain 6/10; sg 08:30 BP 137 / 75; Pulse 69; Resp 17 S; Pulse Ox 98% on R/A; Pain 0/10; sg 09:03 BP 127 / 77; Pulse 66; Resp 16; Pulse Ox 98% on R/A; sg 06:35 Body Mass Index 27.62 (89.81 kg, 180.34 cm) tl2 ED Course: 06:33 Patient arrived in ED. tl2 06:34 Petar Camargo PA is PHCP. jr8 06:34 Jaylan Browne MD is Attending Physician. jr8 06:36 Triage completed. tl2 06:36 Inserted saline lock: 20 gauge in right antecubital area, using aseptic technique. mg2 06:36 Arm band placed on right wrist. mg2 06:38 Patient has correct armband on for positive identification. Placed in gown. Bed in low mg2 position. Call light in reach. Side rails up X 1. Pulse ox on. NIBP on. 06:47 Sidney Kerr, LASHAY is Primary Nurse. mg2 07:03 XRAY Chest (1 view) In Process Unspecified. EDMS 07:20 Warm blanket given. Head of bed lowered. sg 08:36 Primary Nurse role handed off by Sidney Kerr RN sg 08:36 Keith Gonsalves, LASHAY is Primary Nurse. sg 10:45 No provider procedures requiring assistance completed. IV discontinued, intact, sg bleeding controlled, No redness/swelling at site. Pressure dressing applied. Administered Medications: 06:49 Drug: Metoprolol 50 mg Route: PO; mg2 07:53 Follow up: Response: No adverse reaction; Blood pressure is lowered sg 06:50 Drug: Xopenex 1.25 mg Route: Inhalation; mg2 06:50 Drug: Aspirin Chewable Tablet 324 mg Route: PO; mg2 07:29 Follow up: Response: No adverse reaction sg 07:28 Drug: Nitroglycerin 0.4 mg Route: Sublingual; sg 07:52 Follow up: Response: No adverse reaction; Pain is decreased sg Outcome: 10:07 Discharge ordered by . jr8 10:45 Discharged to Unknown pt reports being homeless, living in a tent like halfway for sg several months now 10:45 Condition: good 10:45 Discharge instructions given to patient, Instructed on discharge instructions, follow up and referral plans. safety practices, Demonstrated understanding of instructions, follow-up care, Prescriptions given X 11:00 Patient left the ED. ss Signatures: Dispatcher [employer] EDMS Keith Gonsalves RN RN Tayler Flynn RN RN Petar Camargo PA PA jr8 Nelia May RN RN tl2 Sidney Kerr RN RN mg2 Corrections: (The following items were deleted from the chart) 06:38 06:35 BP 162 / 101; Pulse 82bpm; Resp 17bpm; Pulse Ox 98% RA; mg2 tl2
--- NOTE | 2017-08-16 10:20 | RAD REPORT ---
EXAM DESCRIPTION: Neo Single View08/16/2017 7:05 am CLINICAL HISTORY: Shortness of breath COMPARISON: August 04 FINDINGS: Mild bilateral interstitial opacities are present within the lungs. . The heart is modera tely enlarged IMPRESSION: Mild CHF
[2017-08-16 11:10] VITALS: TEMP 98.4; O2SAT 98
[2017-08-16 11:15] VITALS: BP 127/77
--- NOTE | 2017-08-17 06:42 | EKG ---
Test Date: 2017-08-16 Test Time: 06:40:08 Technician Automated Equipment: MEASUREMENT RESULTS: Intervals: Rate: 82 RI: 150 QRSD: 116 QT: 416 QTc: 486 [place]: P: 64 RI: 150 QRS: 75 T: 50 INTERPRETIVE STATEMENTS: Normal sinus rhythm Possible Left atrial enlargement Left ventricular hypertrophy with QRS widening Prolonged QT Abnormal ECG Compared to ECG 08/04/2017 07:42:10 no significant change from previous ECG Electronically Signed On 08-17-17 06:42:11 CDT by Jitendra Willams
== END 2017-08-16 11:00 | disposition home or self-care (01) ==
LOC: ER 06:31
DX: J44.1 Chronic obstructive pulmonary disease with (acute) exacerbation (principal); F17.210 Nicotine dependence, cigarettes, uncomplicated; I10 Essential (primary) hypertension; I48.91 Unspecified atrial fibrillation; Z88.0 Allergy status to penicillin; Z88.8 Allergy status to other drugs, medicaments and biological substances; Z79.82 Long term (current) use of aspirin; Z85.46 Personal history of malignant neoplasm of prostate
CPT/HCPCS: 36415; 71045; 80048; 83735; 83880; 84484; 85025; 85610; 93005; 99284

== ENCOUNTER 2017-08-31 18:56 | Observation (INO) | payer OTHER ==
[2017-08-31] MEDS ORDERED: FUROSEMIDE 40 MG/4 ML VIAL ONE (19:23)
[2017-08-31 19:44] LABS: Absolute Neutrophil 6.6 K/uL (1.8-8.0)
[2017-08-31 19:45] LABS: Protime INR 1.69
[2017-08-31 19:56] LABS: Absolute Lymphocytes (CBC) 2.6 K/uL (0.7-4.9); Absolute Monocytes 1.5 K/uL (0.1-1.3); Basophils % 0.8 % (0-1.3); Eosinophils % 2.5 % (0-4.4); Hematocrit 32.9 % (39.6-49.0); Lymphocytes % 23.3 % (15.3-44.8); MCH 17.4 pg (27.0-35.0); MCV 58.2 fL (80-100); MPV 9.3 fL (7.6-11.3); Monocytes % 13.8 % (3.3-12.3); RBC Red Blood Cell Count 5.65 M/uL (4.33-5.43)
[2017-08-31 19:59] LABS: Albumin 3.4 g/dL (3.4-5.0); Bilirubin Direct 0.2 mg/dL (0-0.2); Bilirubin Total 0.7 mg/dL (0.2-1.0); Magnesium 2.1 mg/dL (1.8-2.4); Potassium 4.1 mmol/L (3.5-5.1); Protein, Total 6.9 g/dL (6.4-8.2)
[2017-08-31 20:21] LABS: Anisocytosis 2+; Blood Morphology Comment NOTED (NOT SEEN); Elliptocytes 1+; Hypochromasia 3+; Platelet Estimate ADEQ; Polychromasia 2+; Target Cells 1+; Urine White Blood Cell Casts OK
[2017-08-31] MEDS ORDERED: ALBUTEROL 2.5 MG/3 ML NEB SOL ONE (20:35)
--- NOTE | 2017-08-31 20:44 | RAD REPORT ---
EXAM DESCRIPTION: RAD - Chest Single View - 08/31/2017 8:15 pm CLINICAL HISTORY: DYSPNEA Chest pain. COMPARISON: Chest Single View dated 08/16/2017; Chest Single View dated 08/04/2017; Chest Single View d ated 07/19/2017; Chest Single View dated 07/07/2017 FINDINGS: Portable technique limits examination quality. Mild pulmonary edema is suspected. The heart is moderately enlarged in size. No displaced fractures. IMPRESSION: Mild CHF/ volume overload pattern.
[2017-08-31 20:56] LABS: Urine Blood TRACE (NEG); Urine Glucose NEGATIVE (NEG); Urine Protein 2+ (NEG)
[2017-08-31] MEDS ORDERED: NITROGLYCERIN 0.4 MG/TAB SL ONE (20:56)
--- NOTE | 2017-08-31 22:31 | EDPHYS ---
Physician Documentation [facility] Name: Mark Terrell Age: 66 yrs Sex: Male : 1950 Arrival Date: 08/31/2017 Time: 18:57 Bed 7 Private MD: ED Physician Mike Yoo HPI: 08/31 20:02 This 66 yrs old Male presents to ER via EMS with complaints of Shortness Of jr8 Breath. 20:02 The patient has shortness of breath at rest. Onset: The symptoms/episode began/occurred jr8 gradually, 2 day(s) ago, and became worse and became persistent. Duration: The symptoms are continuous. The patient's shortness of breath is aggravated by light activity, walking. Associated signs and symptoms: The patient has no apparent associated signs or symptoms. Severity of symptoms: At their worst the symptoms were moderate in the emergency department the symptoms have improved mildly. The patient has experienced similar episodes in the past, chronically. The patient has not recently seen a physician. Historical: - Allergies: 19:04 Benadryl; sv 19:04 PENICILLINS; sv - Home Meds: 19:04 Lasix 20 mg Oral tab once daily [Active]; Nitroglycerin SL [Active]; sv - PMHx: 19:04 Aneurysm; BRAIN; Atrial Fib; Cancer; PROSTATE; CHF; COPD; Hypertension; Prostate Cancer;sv - Immunization history:: Adult Immunizations unknown. - Ebola Screening: : No symptoms or risks identified at this time. - Social history:: Smoking status: Patient uses tobacco products, smokes one-half pack cigarettes per day. ROS: 20:02 ENT: Negative for injury, pain, and discharge, Neck: Negative for injury, pain, and jr8 swelling, Cardiovascular: Negative for chest pain, palpitations, and edema, Abdomen/GI: Negative for abdominal pain, nausea, vomiting, diarrhea, and constipation, Back: Negative for injury and pain, MS/Extremity: Negative for injury and deformity, Skin: Negative for injury, rash, and discoloration, Neuro: Negative for headache, weakness, numbness, tingling, and seizure. 20:02 Respiratory: Positive for dyspnea on exertion, shortness of breath. Exam: 20:02 Eyes: Pupils equal round and reactive to light, extra-ocular motions intact. Lids and jr8 lashes normal. Conjunctiva and sclera are non-icteric and not injected. Cornea within normal limits. Periorbital areas with no swelling, redness, or edema. ENT: Nares patent. No nasal discharge, no septal abnormalities noted. Tympanic membranes are normal and external auditory canals are clear. Oropharynx with no redness, swelling, or masses, exudates, or evidence of obstruction, uvula midline. Mucous membranes moist. Neck: Trachea midline, no thyromegaly or masses palpated, and no cervical lymphadenopathy. Supple, full range of motion without nuchal rigidity, or vertebral point tenderness. No Meningismus. Cardiovascular: Regular rate and rhythm with a normal S1 and S2. No gallops, murmurs, or rubs. Normal PMI, no JVD. No pulse deficits. Abdomen/GI: Soft, non-tender, with normal bowel sounds. No distension or tympany. No guarding or rebound. No evidence of tenderness throughout. Back: No spinal tenderness. No costovertebral tenderness. Full range of motion. Skin: Warm, dry with normal turgor. Normal color with no rashes, no lesions, and no evidence of cellulitis. MS/ Extremity: Pulses equal, no cyanosis. Neurovascular intact. Full, normal range of motion. Neuro: Awake and alert, GCS 15, oriented to person, place, time, and situation. Cranial nerves II-XII grossly intact. Motor strength 5/5 in all extremities. Sensory grossly intact. Cerebellar exam normal. Normal gait. 20:02 Respiratory: the patient does not display signs of respiratory distress, Respirations: tachypnea, that is mild, Breath sounds: decreased breath sounds, that are mild, are heard in the left posterior lower lobe, wheezing: expiratory that is mild, is heard in the right posterior upper lobe, right posterior middle lobe and right posterior lower lobe. Vital Signs: 19:00 BP 176 / 104; Pulse 85; Resp 25; Temp 97.8(O); Pulse Ox 97% on R/A; Weight 89.81 kg; sv Height 5 ft. 11 in. (180.34 cm); 20:36 BP 181 / 106; Pulse 84; Resp 28; Pulse Ox 99% on R/A; mt 21:00 BP 169 / 103; Pulse 85; Resp 29; Pulse Ox 97% on 2 lpm NC; lp1 21:35 BP 159 / 93; Pulse 98; Resp 21; Pulse Ox 96% on 2 lpm NC; lp1 22:00 BP 147 / 92; Pulse 83; Resp 27; Pulse Ox 98% on 2 lpm NC; lp1 23:00 BP 134 / 81; Pulse 80; Resp 21; Pulse Ox 97% on 2 lpm NC; lp1 23:30 BP 139 / 67; Pulse 78; Resp 26; Pulse Ox 96% on 2 lpm NC; lp1 09/01 00:39 BP 142 / 96; Pulse 80; Resp 26; Pulse Ox 97% on R/A; lp1 08/31 19:00 Body Mass Index 27.62 (89.81 kg, 180.34 cm) sv MDM: 08/31 18:57 Patient medically screened. jr8 22:29 Data reviewed: vital signs, nurses notes, lab test result(s), EKG, radiologic studies, jr8 plain films, and as a result, I will discharge patient. Data interpreted: Pulse oximetry: on room air is 94 %. Interpretation: acceptable. Counseling: I had a detailed discussion with the patient and/or guardian regarding: the historical points, exam findings, and any diagnostic results supporting the discharge/admit diagnosis, lab results, radiology results, the need for further work-up and treatment in the hospital. Physician consultation: Whit Fuentes MD was called at 22:30, was contacted at 22:30, regarding admission, to the telemetry unit. consult, patient's condition, and will see patient. 08/31 18:58 Order name: Basic Metabolic Panel [facility] 08/31 18:58 Order name: CBC with Diff [facility] 08/31 18:58 Order name: LFT's [facility] 08/31 18:58 Order name: Magnesium [facility] 08/31 18:58 Order name: NT PRO-BNP [facility] 08/31 18:58 Order name: PT-INR; Complete Time: 19:59 [facility] 08/31 18:58 Order name: Troponin (emerg Dept Use Only); Complete Time: 19:59 [facility] 08/31 18:58 Order name: Basic Metabolic Panel; Complete Time: 19:59 EDPR 08/31 18:58 Order name: CBC with Automated Diff; Complete Time: 20:47 EDMS 08/31 18:58 Order name: Liver (Hepatic) Function; Complete Time: 19:59 EDMS 08/31 18:58 Order name: Magnesium; Complete Time: 19:59 [facility] 08/31 18:58 Order name: NT PRO-BNP; Complete Time: 19:59 [facility] 08/31 20:16 Order name: CBC Smear Scan; Complete Time: 20:47 [facility] 08/31 20:19 Order name: Urine Dipstick--Ancillary (enter results); Complete Time: 21:03 08/31 18:58 Order name: XRAY Chest (1 view); Complete Time: 20:47 [facility] 08/31 18:58 Order name: EKG; Complete Time: 18:58 [facility] 08/31 18:58 Order name: Cardiac monitoring; Complete Time: 19:04 [facility] 08/31 18:58 Order name: EKG - Nurse/Tech; Complete Time: 19:04 [facility] 08/31 18:58 Order name: IV Saline Lock; Complete Time: 19:05 [facility] 08/31 18:58 Order name: Labs collected and sent; Complete Time: 19:05 [facility] 08/31 18:58 Order name: O2 Per Protocol; Complete Time: 19:05 [facility] 08/31 18:58 Order name: O2 Sat Monitoring; Complete Time: 19:05 [facility] 08/31 18:58 Order name: Urine Dipstick-Ancillary (obtain specimen); Complete Time: 20:08 [facility] Administered Medications: 19:27 Drug: Lasix 40 mg Route: IVP; Site: right forearm; lp1 20:38 Follow up: Urine output 600 ml lp1 20:38 Drug: Albuterol 2.5 mg Route: Inhalation; lp1 20:50 Drug: Albuterol 2.5 mg Route: Inhalation; lp1 20:59 Drug: Nitroglycerin 0.4 mg Route: Sublingual; lp1 21:52 Follow up: Response: Marked relief of symptoms lp1 21:15 Drug: Albuterol 2.5 mg Route: Inhalation; lp1 Disposition: 09/01 10:10 Co-signature as Attending Physician, Mike Yoo MD. Disposition: 08/31/17 22:30 Hospitalization ordered by Whit Fuentes for Observation. Preliminary diagnosis is Acute combined systolic (congestive) and diastolic (congestive) heart failure. - Bed requested for Telemetry/MedSurg (observation). - Status is Observation. lp1 - Condition is Stable. - Problem is new. - Symptoms have improved. UTI on Admission? No Signatures: Dispatcher [employer] EDMS Sri Bean RN LASHAY kl Nati Marquez RN Trisha Bran RN RN lp1 Petar Camargo PA PA jr8 Mike Yoo MD MD gs Corrections: (The following items were deleted from the chart) 00:08/31 22:30 Hospitalization Ordered by Whit Fuentes MD for Observation. Preliminary kl diagnosis is Acute combined systolic (congestive) and diastolic (congestive) heart failure. Bed requested for Telemetry/MedSurg (observation). Status is Observation. Condition is Stable. Problem is new. Symptoms have improved. UTI on Admission? No. jr8 09/01 01:04 00:22 08/31/2017 22:30 Hospitalization Ordered by Whit Fuentes MD for Observation. lp1 Preliminary diagnosis is Acute combined systolic (congestive) and diastolic (congestive) heart failure. Bed requested for Telemetry/MedSurg (observation). Status is Observation. Condition is Stable. Problem is new. Symptoms have improved. UTI on Admission? No. kl
--- NOTE | 2017-08-31 22:31 | ER ---
Nurse's Notes [facility] Name: Mark Terrell Age: 66 yrs Sex: Male : 1950 Arrival Date: 08/31/2017 Time: 18:57 Bed 7 Private MD: Diagnosis: Acute combined systolic (congestive) and diastolic (congestive) heart failure Presentation: 08/31 18:54 Presenting complaint: EMS states: SOB since yesterday. Pt was seen here in the ER sv yesterday for same complaint. Pt is homeless and was evicted from his home and his medications were thrown away. Pt given A\T\A treatment today by EMS 99% after. Pt was 93% on RA. BP 183/112. Transition of care: patient was not received from another setting of care. Onset of symptoms was August 30, 2017. Care prior to arrival: Medication(s) given: Albuterol Neb x 1, Atrovent Neb x 1. 18:54 Method Of Arrival: EMS: [facility] sv 18:54 Acuity: AREIL 3 sv 19:12 Risk Assessment: Do you want to hurt yourself or someone else? Patient reports no lp1 desire to harm self or others. Initial Sepsis Screen: Does the patient meet any 2 criteria? No. Patient's initial sepsis screen is negative. Does the patient have a suspected source of infection? No. Patient's initial sepsis screen is negative. Historical: - Allergies: 19:04 Benadryl; sv 19:04 PENICILLINS; sv - Home Meds: 19:04 Lasix 20 mg Oral tab once daily [Active]; Nitroglycerin SL [Active]; sv - PMHx: 19:04 Aneurysm; BRAIN; Atrial Fib; Cancer; PROSTATE; CHF; COPD; Hypertension; Prostate Cancer;sv - Immunization history:: Adult Immunizations unknown. - Ebola Screening: : No symptoms or risks identified at this time. - Social history:: Smoking status: Patient uses tobacco products, smokes one-half pack cigarettes per day. Screenin:12 Abuse screen: Denies threats or abuse. Denies injuries from another. Nutritional lp1 screening: No deficits noted. Tuberculosis screening: No symptoms or risk factors identified. Fall Risk None identified. Assessment: 19:09 General: Appears unkempt, Behavior is cooperative. Pain: Denies pain. Neuro: Level of lp1 Consciousness is awake, alert, obeys commands, Oriented to person, place, time, situation. Cardiovascular: Patient's skin is warm and dry. Rhythm is sinus rhythm. Respiratory: Reports shortness of breath cough that is Airway is patent Trachea midline Respiratory effort is even, labored, Respiratory pattern is regular, Breath sounds are coarse bilaterally. Onset: The symptoms/episode began/occurred gradually, the patient has moderate shortness of breath. GI: No signs and/or symptoms were reported involving the gastrointestinal system. : No signs and/or symptoms were reported regarding the genitourinary system. EENT: No signs and/or symptoms were reported regarding the EENT system. Derm: Skin is intact, with poor turgor Skin is dry, Skin is normal. Musculoskeletal: Circulation, motion, and sensation intact. 20:00 Reassessment: Patient appears in no apparent distress at this time. No changes from lp1 previously documented assessment. Patient and/or family updated on plan of care and expected duration. Pain level reassessed. 21:00 Reassessment: Patient resting, eyes closed. General: Appears in no apparent distress. lp1 22:00 Reassessment: Patient appears in no apparent distress at this time. Patient and/or lp1 family updated on plan of care and expected duration. Pain level reassessed. patient resting, eyes closed, Patient states feeling better. 23:00 Reassessment: Patient appears in no apparent distress at this time. No changes from lp1 previously documented assessment. 09/01 00:01 Reassessment: Patient and/or family updated on plan of care and expected duration. Pain lp1 level reassessed. Patient aware of waiting for room assignment. Vital Signs: 08/31 19:00 BP 176 / 104; Pulse 85; Resp 25; Temp 97.8(O); Pulse Ox 97% on R/A; Weight 89.81 kg; sv Height 5 ft. 11 in. (180.34 cm); 20:36 BP 181 / 106; Pulse 84; Resp 28; Pulse Ox 99% on R/A; mt 21:00 BP 169 / 103; Pulse 85; Resp 29; Pulse Ox 97% on 2 lpm NC; lp1 21:35 BP 159 / 93; Pulse 98; Resp 21; Pulse Ox 96% on 2 lpm NC; lp1 22:00 BP 147 / 92; Pulse 83; Resp 27; Pulse Ox 98% on 2 lpm NC; lp1 23:00 BP 134 / 81; Pulse 80; Resp 21; Pulse Ox 97% on 2 lpm NC; lp1 23:30 BP 139 / 67; Pulse 78; Resp 26; Pulse Ox 96% on 2 lpm NC; lp1 07 00:39 BP 142 / 96; Pulse 80; Resp 26; Pulse Ox 97% on R/A; lp1 08/31 19:00 Body Mass Index 27.62 (89.81 kg, 180.34 cm) sv ED Course: 08/31 18:57 Patient arrived in ED. sg 18:57 Petar Camargo PA is PHCP. jr8 18:57 Mike Yoo MD is Attending Physician. jr8 19:03 Triage completed. sv 19:08 Trisha Armando, LASHAY is Primary Nurse. lp1 19:08 Arm band placed on right wrist. lp1 19:08 Inserted saline lock: 20 gauge in right forearm, using aseptic technique. Blood lp1 collected. 19:12 Patient has correct armband on for positive identification. Placed in gown. Bed in low lp1 position. wood machine carver on. Pulse ox on. NIBP on. 20:11 X-ray completed. Portable x-ray completed in exam room. Patient tolerated procedure la2 well. 20:15 XRAY Chest (1 view) In Process Unspecified. EDMS 22:30 Whit Fuentes MD is Hospitalizing Provider. jr8 22:36 No provider procedures requiring assistance completed. Patient admitted, IV remains in lp1 place. Administered Medications: 19:27 Drug: Lasix 40 mg Route: IVP; Site: right forearm; lp1 20:38 Follow up: Urine output 600 ml lp1 20:38 Drug: Albuterol 2.5 mg Route: Inhalation; lp1 20:50 Drug: Albuterol 2.5 mg Route: Inhalation; lp1 20:59 Drug: Nitroglycerin 0.4 mg Route: Sublingual; lp1 21:52 Follow up: Response: Marked relief of symptoms lp1 21:15 Drug: Albuterol 2.5 mg Route: Inhalation; lp1 Output: 20:38 Urine: 600ml; Total: 600ml. lp1 20:39 Urine: 600ml (Voided); Total: 1200ml. lp1 21:09 Urine: 300ml (Voided); Total: 1500ml. lp1 21:48 Urine: 450ml (Voided); Total: 1950ml. lp1 09/01 00:09 Urine: 400ml (Voided); Total: 2350ml. lp1 00:30 Urine: 800ml (Voided); Total: 3150ml. lp1 Outcome: 08/31 22:30 Decision to Hospitalize by Provider. jr8 22:36 Condition: stable lp1 22:36 Instructed on the need for admit. 09/01 00:42 Admitted to Tele room 412, with oxygen, with chart, Report called to LASHAY Cunningham lp1 01:04 Patient left the ED. lp1 Signatures: Dispatcher [employer] EDNati Morin RN RN sv Gay, Steven, RN RN sg Pena, Laura, RN RN lp1 Petar Camargo, ROSANGELA Luciano, Mindy Richards mt Corrections: (The following items were deleted from the chart) 08/31 19:13 19:09 Respiratory: Airway is patent Trachea midline Respiratory effort is even, lp1 labored, Respiratory pattern is regular, Breath sounds are coarse bilaterally. Onset: The symptoms/episode began/occurred gradually, the patient has moderate shortness of breath lp1
[2017-08-31] MEDS ORDERED: HYDRALAZINE HCL 20 MG/ML VIAL IV PRN (23:25)
--- NOTE | 2017-08-31 23:32 | P.HP ---
Certification for Inpatient Patient admitted to: Observation With expected LOS: <2 Midnights Practitioner: I am a practitioner with admitting privileges, knowledge of patient current condition, hospital course, and medical plan of care. Services: Services provided to patient in accordance with Admission requirements found in Title 42 Section 412.3 of the Code of Federal Regulations Patient History Date of Service: 08/31/17 Reason for admission: CHF exacerbation History of Present Illness: Ms Terrell is a 66 years old male with multiple medical problems including COPD , chronic systolic CHF EF 30-35%, CAD, who start with progressive SOB since yesterday. He denied chest pain, nausea, vomiting, or dizziness. He is still smoking about 1ppd. He denied fever or chills. ER lab work remarkable for elevated BNP, CXR consistent with venous congestion. The patient is noncompliance with his medical treatment, he is homeless. Allergies diphenhydramine HCl [From Benadryl] Adverse Reaction (Verified 08/04/17 13:40) Hives Home medications list reviewed: Yes Home Medications: NK [No Home Meds] 08/31/17 - Past Medical/Surgical History Has patient received pneumonia vaccine in the past: Yes Diabetic: No -: History of prostate cancer -: Hypertension -: History of brain aneurysm requiring surgery -: CHF, systolic dysfunction -: COPD -: Tobacco abuse -: Noncompliance -: Coronary disease, stents x3 to LAD/RCA(Feb 2016) -: Diabetes mellitus type 2 -: GERD -: anemia -: hyperlipidemia -: Prostate surgery -: Brain aneurysm surgery -: Toe surgery R. great toe/childhood -: Heart catheterization-3stents LAD/RCA Psychosocial/ Personal History: He is single, lives alone. He has no children. 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 - Family History Father -: Cancer Notes: BRAIN CA Mother -: Cancer Notes: PANCREATIC CANCER Brother -: Cancer Notes: lung cancer - Social History Smoking Status: Current every day smoker Counseled patient to stop smoking for: less than 10 minutes Alcohol use: No CD- Drugs: No Caffeine use: Yes Place of Residence: Homeless Review of Systems 10-point ROS is otherwise unremarkable Physical Examination - Physical Exam General: Alert, In no apparent distress HEENT: Atraumatic, PERRLA, Mucous membr. moist/pink, EOMI, Sclerae nonicteric Neck: Supple, 2+ carotid pulse no bruit, No LAD, Without JVD or thyroid abnormality Respiratory: Diminished, Crackles/rales (bibasilar rales) Cardiovascular: Regular rate/rhythm, Normal S1 S2 Gastrointestinal: Normal bowel sounds, No tenderness Musculoskeletal: No tenderness, Swelling (lower extremity edema 1+ bilateral) Integumentary: No rashes Neurological: Normal speech, Normal strength at 5/5 x4 extr, Normal tone, Normal affect Lymphatics: No axilla or inguinal lymphadenopathy - Studies Laboratory Data (last 24 hrs) 08/31/17 19:05: PT 20.1 H, INR 1.69 08/31/17 19:05: WBC 11.1 H, Hgb 9.8 L, Hct 32.9 L, Plt Count 262 08/31/17 19:05: Sodium 141, Potassium 4.1, BUN 23 H, Creatinine 1.40 H, Glucose 133 H, Magnesium 2.1, Total Bilirubin 0.7, AST 27, ALT 26, Alkaline Phosphatase 112 Assessment and Plan - Problems (Diagnosis) (1) Acute on chronic systolic (congestive) heart failure Current Visit: Yes Status: Acute (2) CAD (coronary artery disease) Onset Date: 03/18/16 Current Visit: No Status: Chronic Qualifiers: Coronary Disease-Associated Artery/Lesion type: [place] artery [place] vs. transplanted heart: [place] heart Associated angina: without angina Qualified Code(s): I25.10 - Atherosclerotic heart disease of [place] coronary artery without angina pectoris (3) COPD (chronic obstructive pulmonary disease) Onset Date: 03/21/15 Current Visit: No Status: Chronic Qualifiers: COPD type: unspecified COPD Qualified Code(s): J44.9 - Chronic obstructive pulmonary disease, unspecified (4) Chronic renal disease Onset Date: 03/31/17 Current Visit: No Status: Chronic Qualifiers: Chronic kidney disease stage: stage 3 (moderate) (5) Noncompliance Onset Date: 03/18/16 Current Visit: No Status: Chronic (6) Type 2 diabetes mellitus Onset Date: 12/10/16 Current Visit: No Status: Chronic Qualifiers: Diabetes mellitus detention insulin use: without battery builder use Diabetes mellitus complication status: without complication Qualified Code(s): E11.9 - Type 2 diabetes mellitus without complications - Plan The patient will be admitted to the hospital due to acute on chronic CHF. He has COPD but there are no signs of acute exacerbation. Will order fluid restriction and IV diuretics. Encourage to be compliant with his medical treatment to avoid further admission. - Advance Directives Does patient have a Living Will: No Does patient have a Durable POA for Healthcare: No - Code Status/Comfort Care Code Status Assessed: Yes Code Status: Full Code
[2017-09-01] MEDS ORDERED: ACETAMINOPHEN 500 MG TAB PO PRN (00:53)
[2017-09-01] MEDS ORDERED: ALBUTEROL 2.5 MG/3 ML NEB SOL NEB PRN (00:53)
[2017-09-01] MEDS ORDERED: ONDANSETRON 4 MG/2 ML VIAL IV PRN (00:53)
[2017-09-01] MEDS ORDERED: IPRATROPIUM BROM 0.5MG/2.5ML NEB PRN (00:53)
[2017-09-01 01:35] VITALS: BMI 24.1
[2017-09-01 05:00] LABS: Absolute Lymphocytes (CBC) 2.5 K/uL (0.7-4.9); Absolute Monocytes 1.8 K/uL (0.1-1.3); Absolute Neutrophil 7.1 K/uL (1.8-8.0); Basophils % 0.8 % (0-1.3); Eosinophils % 2.8 % (0-4.4); Lymphocytes % 20.9 % (15.3-44.8); MCH 17.5 pg (27.0-35.0); MCV 58.1 fL (80-100); Monocytes % 15.3 % (3.3-12.3)
[2017-09-01 05:13] LABS: Potassium 3.4 mmol/L (3.5-5.1)
[2017-09-01] MEDS ORDERED: POTASSIUM 25 MEQ EFFERV TAB PO ONE (05:23)
--- NOTE | 2017-09-01 06:36 | EKG ---
Test Date: 2017-08-31 Test Time: 19:00:24 Rides Supervisor: AVELINO MEASUREMENT RESULTS: Intervals: Rate: 85 AR: 144 QRSD: 112 QT: 414 QTc: 492 [place]: P: 77 AR: 144 QRS: 85 T: 28 INTERPRETIVE STATEMENTS: Normal sinus rhythm Possible Left atrial enlargement Nonspecific ST abnormality Prolonged QT Abnormal ECG Compared to ECG 08/16/2017 06:40:08 ST (T wave) deviation now present Left ventricular hypertrophy no longer present Electronically Signed On 09-01-17 06:35:58 CDT by Jitendra Willams
[2017-09-01 08:12] VITALS: BP 158/102; TEMP 97.5
[2017-09-01] MEDS ORDERED: ENOXAPARIN 40 MG/0.4 ML SQ SCH (09:00)
[2017-09-01] MEDS ORDERED: FUROSEMIDE 40 MG/4 ML VIAL IV SCH (09:00)
[2017-09-01 11:05] VITALS: O2SAT 96
--- NOTE | 2017-09-01 14:33 | P.DS ---
Admission Date: 08/31/17 Discharge Date: 09/01/17 Disposition: ROUTINE DISCHARGE Discharge Condition: FAIR Reason for Admission: CHF exacerbation - Problems (1) Acute on chronic systolic (congestive) heart failure Onset Date: 09/01/17 Status: Acute (2) SOB (shortness of breath) Onset Date: 07/19/16 Status: Acute (3) Brain aneurysm Onset Date: 08/05/17 Status: Chronic (4) CAD (coronary artery disease) Status: Chronic Qualifiers: Coronary Disease-Associated Artery/Lesion type: [place] artery [place] vs. transplanted heart: [place] heart Associated angina: without angina Qualified Code(s): I25.10 - Atherosclerotic heart disease of [place] coronary artery without angina pectoris (5) GERD (gastroesophageal reflux disease) Onset Date: 02/17/17 Status: Chronic Qualifiers: Esophagitis presence: without esophagitis Qualified Code(s): K21.9 - Gastro -esophageal reflux disease without esophagitis (6) History of prostate cancer Status: Chronic (7) Hyperlipidemia Onset Date: 07/19/16 Status: Chronic Qualifiers: Hyperlipidemia type: mixed hyperlipidemia Qualified Code(s): E78.2 - Mixed hyperlipidemia (8) Hypertension Onset Date: 02/05/16 Status: Chronic Qualifiers: Hypertension type: essential hypertension Qualified Code(s): I10 - Essential (primary) hypertension (9) Nicotine dependence Onset Date: 04/03/17 Status: Chronic Qualifiers: Nicotine product type: other Substance use status: in remission Qualified Code(s): F17.291 - Nicotine dependence, other tobacco product, in remission (10) Noncompliance Onset Date: 03/18/16 Status: Chronic (11) Type 2 diabetes mellitus Onset Date: 12/10/16 Status: Chronic Qualifiers: Diabetes mellitus termite inspector insulin use: without [place] [facility] use Diabetes mellitus complication status: without complication Qualified Code(s): E11.9 - Type 2 diabetes mellitus without complications Brief History of Present Illness: From H and P Ms Terrell is a 66 years old male with multiple medical problems including COPD , chronic systolic CHF EF 30-35%, CAD, who start with progressive SOB since yesterday. He denied chest pain, nausea, vomiting, or dizziness. He is still smoking about 1ppd. He denied fever or chills. ER lab work remarkable for elevated BNP, CXR consistent with venous congestion. The patient is noncompliance with his medical treatment, he is homeless. Hospital Course: Patient is a 66-year-old male with past medical history of CHF who comes into the hospital multiple times for this same issue largely due to the fact that he is homeless and does not take his medications. Upon last to admission patient was graciously given his medications by the physician who care from however states that time he did not take his medications. Patient comes in again with shortness of breath related to his CHF. Patient was diuresed his oxygen levels improved he was able to be weaned off of oxygen. Patient was saturating 96% on room air. Patient's creatinine level normalized. Patient was counseled regarding compliance with his medications. Patient's symptoms improved his shortness of breath resolved. He was able to ambulate without difficulty. Patient was then cleared for discharge and was sent home in a stable condition Vital Signs/Physical Exam: Temp Pulse Resp BP Pulse Ox 97.5 F 74 18 158/102 H 100 09/01/17 08:00 09/01/17 08:49 09/01/17 08:00 09/01/17 08:49 09/01/17 08:00 General: Alert, In no apparent distress, Oriented x3 HEENT: Atraumatic, PERRLA, EOMI Neck: Supple, JVD not distended Respiratory: Clear to auscultation bilaterally, Normal air movement Cardiovascular: No edema, Regular rate/rhythm, Normal S1 S2 Gastrointestinal: Normal bowel sounds, Soft and benign, Non-distended, No tenderness Musculoskeletal: No clubbing, No tenderness Integumentary: No rashes, No erythema Neurological: Normal speech, Normal strength at 5/5 x4 extr, Normal tone, Normal affect Laboratory Data at Discharge: WBC 11.7 K/uL (4.3-10.9) H 09/01/17 04:40 Hgb 8.8 g/dL (13.6-17.9) L 09/01/17 04:40 Hct 29.0 % (39.6-49.0) L 09/01/17 04:40 Plt Count 224 K/uL (152-406) 09/01/17 04:40 PT 20.1 SECONDS (9.5-12.5) H 08/31/17 19:05 INR 1.69 08/31/17 19:05 Sodium 140 mmol/L (136-145) 09/01/17 04:40 Potassium 3.4 mmol/L (3.5-5.1) L 09/01/17 04:40 BUN 20 mg/dL (7-18) H 09/01/17 04:40 Creatinine 1.20 mg/dL (0.55-1.3) 09/01/17 04:40 Glucose 109 mg/dL (74-106) H 09/01/17 04:40 Magnesium 2.1 mg/dL (1.8-2.4) 08/31/17 19:05 Total Bilirubin 0.7 mg/dL (0.2-1.0) 08/31/17 19:05 AST 27 U/L (15-37) 08/31/17 19:05 ALT 26 U/L (12-78) 08/31/17 19:05 Alkaline Phosphatase 112 U/L (45-117) 08/31/17 19:05 Troponin I 0.03 ng/mL (0.0-0.045) 09/01/17 09:22 Home Medications: Aspirin [Aspirin EC 81 MG] 81 mg PO DAILY #30 tablet. 09/01/17 Clopidogrel Bisulfate [Plavix] 75 mg PO DAILY #30 tablet 09/01/17 Furosemide [Lasix] 40 mg PO DAILY #30 tab 09/01/17 Metoprolol Tartrate 50 mg PO BID #60 tablet 09/01/17 Potassium Chloride 20 meq PO DAILY #30 tab.er.prt 09/01/17 Simvastatin 40 mg PO DAILY #30 tablet 09/01/17 New Medications: Aspirin [Aspirin EC 81 MG] 81 mg PO DAILY #30 tablet. Clopidogrel Bisulfate [Plavix] 75 mg PO DAILY #30 tablet Furosemide [Lasix] 40 mg PO DAILY #30 tab Metoprolol Tartrate 50 mg PO BID #60 tablet Potassium Chloride 20 meq PO DAILY #30 tab.er.prt Simvastatin 40 mg PO DAILY #30 tablet Patient Discharge Instructions: f/up w PCP in 2-3 days. Return to ER for worsening condition Diet: Low sodium (1500ml Fluid restriction) Activity: Ad kim
== END 2017-09-01 12:15 | disposition home or self-care (01) ==
LOC: ER 18:56 → ERHOLD 22:40 → 4TH 09-01 00:47
PROVIDERS: ADMIT Internal Medicine; ATTEND Family Medicine
DX: I13.0 Hypertensive heart and chronic kidney disease with heart failure and stage 1 through stage 4 chronic kidney disease, or unspecified chronic kidney disease (principal); I50.23 Acute on chronic systolic (congestive) heart failure; I25.10 Atherosclerotic heart disease of native coronary artery without angina pectoris; K21.9 Gastro-esophageal reflux disease without esophagitis; Z85.46 Personal history of malignant neoplasm of prostate; E78.5 Hyperlipidemia, unspecified; J44.9 Chronic obstructive pulmonary disease, unspecified; F17.200 Nicotine dependence, unspecified, uncomplicated; Z59.0 Homelessness; Z91.14 Patient's other noncompliance with medication regimen; Z88.8 Allergy status to other drugs, medicaments and biological substances; E11.22 Type 2 diabetes mellitus with diabetic chronic kidney disease; N18.3 Chronic kidney disease, stage 3 (moderate); D64.9 Anemia, unspecified
CPT/HCPCS: 36415; 71045; 80048 ×2; 80076; 81003; 83735; 83880; 84484 ×3; 85025 ×2; 85610; 93005; 94760; 96374; 99285; G0378 ×2; J1650

== ENCOUNTER 2017-09-06 20:42 | Observation (INO) | payer OTHER ==
[2017-09-06 21:13] LABS: Absolute Lymphocytes (CBC) 2.6 K/uL (0.7-4.9); MPV 9.1 fL (7.6-11.3)
[2017-09-06 21:17] LABS: Protime INR 1.49
[2017-09-06 21:24] LABS: Absolute Neutrophil 5.6 K/uL (1.8-8.0); Basophils % 1.1 % (0-1.3); Hematocrit 32.5 % (39.6-49.0); Lymphocytes % 27.7 % (15.3-44.8); MCH 17.7 pg (27.0-35.0); MCV 59.6 fL (80-100); Monocytes % 10.4 % (3.3-12.3); RBC Red Blood Cell Count 5.45 M/uL (4.33-5.43)
--- NOTE | 2017-09-06 21:28 | RAD REPORT ---
EXAM DESCRIPTION: Neo Single View09/06/2017 9:09 pm CLINICAL HISTORY: Chest pain COMPARISON: August 31 FINDINGS: Mild bilateral interstitial lung opacities are present. . The heart is moderately enlarged IMPRESSION: Mild CHF
[2017-09-06 21:31] LABS: Albumin 3.4 g/dL (3.4-5.0); Bilirubin Direct 0.2 mg/dL (0-0.2); Bilirubin Total 0.8 mg/dL (0.2-1.0); CKMB Creatine Kinase MB 2.3 ng/mL (0.3-3.6); Magnesium 2.3 mg/dL (1.8-2.4); Protein, Total 6.7 g/dL (6.4-8.2)
[2017-09-06 21:43] LABS: Anisocytosis 2+; Blood Morphology Comment NOTED (NOT SEEN); Hypochromasia 3+; Platelet Estimate ADEQ; Poikilocytosis 2+; Polychromasia 1+; Urine White Blood Cell Casts OK
[2017-09-06] MEDS ORDERED: ALBUTEROL 2.5 MG/3 ML NEB SOL ONE (21:54)
[2017-09-06] MEDS ORDERED: IPRATROPIUM BROM 0.5MG/2.5ML ONE (21:54)
[2017-09-06] MEDS ORDERED: METOPROLOL TAR 50 MG TAB ONE (21:59)
[2017-09-06] MEDS ORDERED: ENOXAPARIN 80 MG/0.8 ML SQ ONE (22:00)
[2017-09-06] MEDS ORDERED: NITROGLYCERIN 0.4 MG/TAB SL ONE (22:00)
[2017-09-06] MEDS ORDERED: FUROSEMIDE 40 MG/4 ML VIAL ONE (22:00)
--- NOTE | 2017-09-06 23:12 | EDPHYS ---
Physician Documentation [facility] Name: Mark Terrell Age: 66 yrs Sex: Male : 1950 Arrival Date: 09/06/2017 Time: 20:48 Bed 16 Private MD: ED Physician Satish Catalan HPI: 09/06 21:45 This 66 yrs old Male presents to ER via EMS with complaints of Chest Pain. pm1 21:45 The patient or guardian reports chest pain that is located primarily in the anterior pm1 chest wall, left. 21:45 Onset: 2 hour(s) ago. The pain does not radiate. Associated signs and symptoms: pm1 Pertinent positives: palpitations, shortness of breath, Pertinent negatives: abdominal pain, cough, nausea, vomiting. The chest pain is described as aching. Duration: The patient or guardian reports a single episode, that is still ongoing. Modifying factors: The symptoms are alleviated by nothing. the symptoms are aggravated by nothing. EMS care prior to arrival includes: albuterol neb, aspirin. The patient has experienced similar episodes in the past, multiple times. The patient has been recently been admitted at [facility], was discharged last week, for similar complaints. Historical: - Allergies: 20:50 Benadryl; tl2 20:50 PENICILLINS; tl2 - Home Meds: 20:50 Lasix 20 mg Oral tab once daily [Active]; Nitroglycerin SL [Active]; tl2 - PMHx: 20:50 Aneurysm; BRAIN; Atrial Fib; Cancer; PROSTATE; CHF; COPD; Hypertension; Prostate Cancer;tl2 - Immunization history:: Adult Immunizations up to date. - Social history:: Smoking status: Patient uses tobacco products, smokes one pack cigarettes per day. - Ebola Screening: : No symptoms or risks identified at this time. ROS: 21:45 Constitutional: Negative for fever, chills, and weight loss, Eyes: Negative for injury, pm1 pain, redness, and discharge, ENT: Negative for injury, pain, and discharge, Neck: Negative for injury, pain, and swelling, Abdomen/GI: Negative for abdominal pain, nausea, vomiting, diarrhea, and constipation, Back: Negative for injury and pain. 21:45 MS/Extremity: Negative for injury and deformity, Skin: Negative for injury, rash, and discoloration, Neuro: Negative for headache, weakness, numbness, tingling, and seizure. 21:45 Cardiovascular: Positive for chest pain, Negative for edema, palpitations. 21:45 Respiratory: Positive for shortness of breath, Negative for wheezing. Exam: 21:45 Constitutional: This is a well developed, well nourished patient who is awake, alert, pm1 and in no acute distress. Head/Face: Normocephalic, atraumatic. Eyes: Pupils equal round and reactive to light, extra-ocular motions intact. Lids and lashes normal. Conjunctiva and sclera are non-icteric and not injected. Cornea within normal limits. Periorbital areas with no swelling, redness, or edema. ENT: Nares patent. No nasal discharge, no septal abnormalities noted. Tympanic membranes are normal and external auditory canals are clear. Oropharynx with no redness, swelling, or masses, exudates, or evidence of obstruction, uvula midline. Mucous membranes moist. Neck: Trachea midline, no thyromegaly or masses palpated, and no cervical lymphadenopathy. Supple, full range of motion without nuchal rigidity, or vertebral point tenderness. No Meningismus. Chest/axilla: Normal chest wall appearance and motion. Nontender with no deformity. No lesions are appreciated. Cardiovascular: Regular rate and rhythm with a normal S1 and S2. No gallops, murmurs, or rubs. No pulse deficits. 21:45 Abdomen/GI: Soft, non-tender, with normal bowel sounds. No distension or tympany. No guarding or rebound. No evidence of tenderness throughout. Back: No spinal tenderness. No costovertebral tenderness. Full range of motion. Skin: Warm, dry with normal turgor. Normal color with no rashes, no lesions, and no evidence of cellulitis. MS/ Extremity: Pulses equal, no cyanosis. Neurovascular intact. Full, normal range of motion. 21:45 Respiratory: the patient does not display signs of respiratory distress, Respirations: normal, Breath sounds: rhonchi, are heard diffusely. 21:45 Neuro: Orientation: is normal, Motor: is normal, moves all fours. 23:03 Respiratory: Lungs have equal breath sounds bilaterally, clear to auscultation and pm1 percussion. No rales, rhonchi or wheezes noted. No increased work of breathing, no retractions or nasal flaring. Vital Signs: 20:50 BP 169 / 92; Pulse 89; Resp 25; Pulse Ox 96% on R/A; Weight 86.18 kg; Height 6 ft. 0 tl2 in. (182.88 cm); Pain 5/10; 22:20 BP 183 / 120; Pulse 86; Resp 30; Pulse Ox 100% on Nebulizer Mask; tl2 23:22 BP 161 / 107; Pulse 73; Resp 27; Pulse Ox 99% on R/A; tl2 23:42 BP 157 / 95; Pulse 67; Resp 24; Pulse Ox 100% on R/A; tl2 20:50 Body Mass Index 25.77 (86.18 kg, 182.88 cm) tl2 MDM: 21:28 Patient medically screened. pm1 22:39 Data reviewed: vital signs. Data interpreted: Pulse oximetry: on room air is 100 %. pm1 Interpretation: normal. Counseling: I had a detailed discussion with the patient and/or guardian regarding: the historical points, exam findings, and any diagnostic results supporting the discharge/admit diagnosis, lab results, radiology results, the need for further work-up and treatment in the hospital. 22:39 ED course: chest pain 0/10. Resolved with nitro administered. pm1 23:26 Physician consultation: Jose Mason MD was called at 23:26, was contacted at 23:27, pm1 regarding admission, patient's condition, and will see patient. 09/06 20:57 Order name: Basic Met[facility] 09/06 20:57 Order name: CBC with Diff; Complete Time: 22:30 [facility] 09/06 20:57 Order name: Ckmb 2 09/06 20:57 Order name: CPK; Complete Time: 21:43 [facility] 09/06 20:57 Order name: LFT's; Complete Time: 21:43 [facility] 09/06 20:57 Order name: Magnesium; Complete Time: 21:43 [facility] 09/06 20:57 Order name: NT PRO-BNP; Complete Time: 21:43 [facility] 09/06 20:57 Order name: PT-INR; Complete Time: 21:29 [facility] 09/06 20:57 Order name: Ptt, Activated; Complete Time: 21:29 [facility] 09/06 20:57 Order name: Troponin (emerg Dept Use Only); Complete Time: 21:43 tl2 09/06 20:57 Order name: Basic Metabolic Panel; Complete Time: 21:43 EDMS 09/06 20:57 Order name: CKMB Creatine Kinase MB; Complete Time: 21:43 EDMS 09/06 21:27 Order name: CBC Smear Scan; Complete Time: 22:30 EDMS 09/06 22:51 Order name: Urine Dipstick--Ancillary (enter results); Complete Time: 01:38 rg2 09/06 20:57 Order name: XRAY Chest (1 view); Complete Time: 21:29 tl2 09/06 20:57 Order name: EKG; Complete Time: 20:57 tl2 09/06 20:57 Order name: Cardiac monitoring; Complete Time: 21:01 tl2 09/06 20:57 Order name: EKG - Nurse/Tech; Complete Time: 21:01 tl2 09/06 20:57 Order name: IV Saline Lock; Complete Time: 21:01 tl2 09/06 20:57 Order name: Labs collected and sent; Complete Time: 21:01 tl2 09/06 20:57 Order name: O2 Per Protocol; Complete Time: 21:01 tl2 09/06 20:57 Order name: O2 Sat Monitoring; Complete Time: 21:01 tl2 09/06 20:57 Order name: Urine Dipstick-Ancillary (obtain specimen); Complete Time: 22:50 tl2 Administered Medications: 22:13 Drug: Nitrostat 0.4 mg Route: Sublingual; tl2 22:50 Follow up: Response: No adverse reaction; Pain is decreased tl2 22:13 Drug: Lovenox 1 mg/kg Route: Sub-Q; Site: left lower abdomen; tl2 22:50 Follow up: Response: No adverse reaction tl2 22:13 Drug: Lasix 40 mg Route: IVP; Site: left antecubital; tl2 22:51 Follow up: Response: No adverse reaction; Marked relief of symptoms tl2 22:13 Drug: Lopressor (metoprolol TARTRATE) 50 mg Route: PO; tl2 22:51 Follow up: Response: No adverse reaction tl2 22:14 Drug: Albuterol - atroVENT (3:1) (2.5 mg - 0.5 mg) 3 ml Route: Nebulizer; tl2 22:50 Follow up: Response: No adverse reaction; Marked relief of symptoms tl2 Disposition: 09/06/17 23:11 Hospitalization ordered by Jose Mason for Observation. Preliminary diagnosis are Acute combined systolic (congestive) and diastolic (congestive) heart failure, Chest pain, unspecified. - Bed requested for Telemetry/MedSurg (observation). - Status is Observation. tl2 - Condition is Stable. - Problem is new. - Symptoms have improved. UTI on Admission? No Addendum: 09/08/2017 09:27 Co-signature as Attending Physician, Satish Catalan MD I agree with the assessment and c darnell plan of care. Signatures: Dispatcher [employer] EDMS Roseann Erickson RN RN Satish Catalan MD MD cha Marinas, Patrick, NP SHUTTLE FINAL INSPECTOR pm1 Nelia May RN RN tl2 Corrections: (The following items were deleted from the chart) 09/06 23:21 23:11 Hospitalization Ordered by Jose Mason MD for Inpatient Admission. Preliminary diagnosis is Acute combined systolic (congestive) and diastolic (congestive) heart failure; Chest pain, unspecified. Bed requested for Telemetry/MedSurg (Inpatient). Status is Inpatient Admission. Condition is Stable. Problem is new. Symptoms have improved. UTI on Admission? No. pm1 23:26 23:21 09/06/2017 23:11 Hospitalization Ordered by Jose Mason MD for Inpatient pm1 Admission. Preliminary diagnosis is Acute combined systolic (congestive) and diastolic (congestive) heart failure; Chest pain, unspecified. Bed requested for Telemetry/MedSurg (Inpatient). Status is Inpatient Admission. Condition is Stable. Problem is new. Symptoms have improved. UTI on Admission? No. mw 23:29 23:26 09/06/2017 23:11 Hospitalization Ordered by Jose Mason MD for Observation. mw Preliminary diagnosis is Acute combined systolic (congestive) and diastolic (congestive) heart failure; Chest pain, unspecified. Bed requested for Telemetry/MedSurg (observation). Status is Observation. Condition is Stable. Problem is new. Symptoms have improved. UTI on Admission? No. pm1 09/07 00:37 09/06 23:29 09/06/2017 23:11 Hospitalization Ordered by Jose Mason MD for tl2 Observation. Preliminary diagnosis is Acute combined systolic (congestive) and diastolic (congestive) heart failure; Chest pain, unspecified. Bed requested for Telemetry/MedSurg (observation). Status is Observation. Condition is Stable. Problem is new. Symptoms have improved. UTI on Admission? No. mw
--- NOTE | 2017-09-06 23:12 | ER ---
Nurse's Notes [facility] Name: Mark Terrell Age: 66 yrs Sex: Male : 1950 Arrival Date: 09/06/2017 Time: 20:48 Bed 16 Private MD: Diagnosis: Acute combined systolic (congestive) and diastolic (congestive) heart failure;Chest pain, unspecified Presentation: 09/06 20:48 Presenting complaint: EMS states: Pt was walking and had breathing difficulty, was tl2 going to get breathing treatment from EMS and developed chest pain so decided to be transported to ER. Transition of care: patient was not received from another setting of care. Onset of symptoms was September 06, 2017 at 20:00. Risk Assessment: Do you want to hurt yourself or someone else? Patient reports no desire to harm self or others. Initial Sepsis Screen: Does the patient meet any 2 criteria? No. Patient's initial sepsis screen is negative. Does the patient have a suspected source of infection? No. Patient's initial sepsis screen is negative. Care prior to arrival: Medication(s) given: Albuterol Neb x 3, ASA, 81 mg, x 4, Atrovent Neb x 1, IV initiated. 20 GA, in the left antecubital area. 20:48 Method Of Arrival: EMS: [facility] tl2 20:48 Acuity: ARIEL 3 tl2 Triage Assessment: 20:50 General: Appears in no apparent distress. uncomfortable, Behavior is calm, cooperative, tl2 appropriate for age. Pain: Complains of pain in chest Pain does not radiate. Neuro: Level of Consciousness is awake, alert, obeys commands, Oriented to person, place, time, situation. Cardiovascular: Chest pain is described as diffuse, quality is sharp, is located in anterior radiates. Respiratory: Reports shortness of breath cough that is Airway is patent Respiratory effort is even, unlabored, Respiratory pattern is regular, symmetrical, Breath sounds with wheezes bilaterally. GI: No signs and/or symptoms were reported involving the gastrointestinal system. Historical: - Allergies: 20:50 Benadryl; tl2 20:50 PENICILLINS; tl2 - Home Meds: 20:50 Lasix 20 mg Oral tab once daily [Active]; Nitroglycerin SL [Active]; tl2 - PMHx: 20:50 Aneurysm; BRAIN; Atrial Fib; Cancer; PROSTATE; CHF; COPD; Hypertension; Prostate Cancer;tl2 - Immunization history:: Adult Immunizations up to date. - Social history:: Smoking status: Patient uses tobacco products, smokes one pack cigarettes per day. - Ebola Screening: : No symptoms or risks identified at this time. Screenin:54 Abuse screen: Denies threats or abuse. Nutritional screening: No deficits noted. tl2 Tuberculosis screening: No symptoms or risk factors identified. Fall Risk None identified. Assessment: 20:54 General: see triage assessment. tl2 22:20 Reassessment: Patient appears in no apparent distress at this time. Patient and/or tl2 family updated on plan of care and expected duration. Pain level reassessed. Patient is alert, oriented x 3, equal unlabored respirations, skin warm/dry/pink. Pt states pain is gone and breathing is improving Patient states feeling better. 09/07 00:22 Reassessment: Report called to receiving nurse on second floor. ea 00:35 Reassessment: Patient appears in no apparent distress at this time. Patient and/or tl2 family updated on plan of care and expected duration. Pain level reassessed. Patient is alert, oriented x 3, equal unlabored respirations, skin warm/dry/pink. Pt stable and ready for transport to floor Patient states feeling better. Vital Signs: 07 20:50 BP 169 / 92; Pulse 89; Resp 25; Pulse Ox 96% on R/A; Weight 86.18 kg; Height 6 ft. 0 tl2 in. (182.88 cm); Pain 5/10; 22:20 BP 183 / 120; Pulse 86; Resp 30; Pulse Ox 100% on Nebulizer Mask; tl2 23:22 BP 161 / 107; Pulse 73; Resp 27; Pulse Ox 99% on R/A; tl2 23:42 BP 157 / 95; Pulse 67; Resp 24; Pulse Ox 100% on R/A; tl2 20:50 Body Mass Index 25.77 (86.18 kg, 182.88 cm) tl2 ED Course: 20:48 Patient arrived in ED. tl2 20:49 Triage completed. tl2 20:50 Arm band placed on right wrist. tl2 20:54 Patient has correct armband on for positive identification. color television console monitor on. Pulse tl2 ox on. NIBP on. 20:54 Maintain EMS IV. Dressing intact. Good blood return noted. Site clean \T\ dry. Gauge \T\ tl 2 site: 20 g L AC. Patient maintains SpO2 saturation greater than 95% on room air. 20:56 Nelia May RN is Primary Nurse. tl2 21:01 EKG done, by ED staff. cc 21:07 X-ray completed. Portable x-ray completed in exam room. Patient tolerated procedure la2 well. 21:09 XRAY Chest (1 view) In Process Unspecified. EDMS 21:28 jR Arnold NP is PHCP. pm1 21:28 Satish Catalan MD is Attending Physician. pm1 23:11 Jose Mason MD is Hospitalizing Provider. pm1 07 00:22 No provider procedures requiring assistance completed. Patient admitted, IV remains in ea place. Administered Medications: 07 22:13 Drug: Nitrostat 0.4 mg Route: Sublingual; tl2 22:50 Follow up: Response: No adverse reaction; Pain is decreased tl2 22:13 Drug: Lovenox 1 mg/kg Route: Sub-Q; Site: left lower abdomen; tl2 22:50 Follow up: Response: No adverse reaction tl2 22:13 Drug: Lasix 40 mg Route: IVP; Site: left antecubital; tl2 22:51 Follow up: Response: No adverse reaction; Marked relief of symptoms tl2 22:13 Drug: Lopressor (metoprolol TARTRATE) 50 mg Route: PO; tl2 22:51 Follow up: Response: No adverse reaction tl2 22:14 Drug: Albuterol - atroVENT (3:1) (2.5 mg - 0.5 mg) 3 ml Route: Nebulizer; tl2 22:50 Follow up: Response: No adverse reaction; Marked relief of symptoms tl2 Output: 22:51 Urine: 220ml (Voided); Total: 220ml. tl2 Outcome: 23:11 Decision to Hospitalize by Provider. pm1 09/07 00:00 Admitted to Med/surg accompanied by venice, room 214, Report called to Dany METZ. ea Condition: stable Instructed on the need for admit. 00:37 Patient left the ED. tl2 Signatures: Dispatcher [employer] [facility] Nevaeh Aguilar Rj Arnold NP WOOD SETTER pm1 Nelia May RN RN tl2 Ana Camacho RN RN ea Ardo[place], Leslie la2 Corrections: (The following items were deleted from the chart) 09/06 22:24 22:20 Pulse 86bpm; Resp 30bpm; Pulse Ox 100% Nebulizer Mask; tl2 tl2
[2017-09-06 23:45] LABS: Urine Blood NEGATIVE (NEG); Urine Glucose NEGATIVE (NEG); Urine Protein 2+ (NEG); Urine Specific Gravity 1.025 (1.005-1.030)
[2017-09-06] MEDS ORDERED: ONDANSETRON 4 MG/2 ML VIAL IV PRN (23:55)
[2017-09-06] MEDS ORDERED: ACETAMINOPHEN 500 MG TAB PO PRN (23:55)
[2017-09-07 00:59] VITALS: BMI 26.5
[2017-09-07] MEDS: IPRATROPIUM BROM 0.5MG/2.5ML NEB SCH ×4 (02:00→19:44)
[2017-09-07] MEDS: ALBUTEROL 2.5 MG/3 ML NEB SOL NEB SCH ×4 (02:00→19:44)
[2017-09-07 05:01] LABS: MCH 17.6 pg (27.0-35.0)
[2017-09-07 05:08] LABS: Absolute Lymphocytes (CBC) 2.4 K/uL (0.7-4.9); Absolute Monocytes 1.3 K/uL (0.1-1.3); Absolute Neutrophil 4.2 K/uL (1.8-8.0); Basophils % 0.7 % (0-1.3); Hematocrit 32.3 % (39.6-49.0); Lymphocytes % 29.4 % (15.3-44.8); MPV 9.3 fL (7.6-11.3); Monocytes % 15.8 % (3.3-12.3); RBC Red Blood Cell Count 5.44 M/uL (4.33-5.43)
[2017-09-07 05:09] LABS: MCV 59.4 fL (80-100)
[2017-09-07 05:16] LABS: Magnesium 2.2 mg/dL (1.8-2.4); Phosphorus 4.2 mg/dL (2.5-4.9); Potassium 3.7 mmol/L (3.5-5.1)
[2017-09-07] MEDS ORDERED: POTASSIUM 25 MEQ EFFERV TAB PO ONE (06:30)
--- NOTE | 2017-09-07 07:37 | P.HP ---
Certification for Inpatient Patient admitted to: Observation With expected LOS: <2 Midnights Patient will require the following post-hospital care: None Practitioner: I am a practitioner with admitting privileges, knowledge of patient current condition, hospital course, and medical plan of care. Services: Services provided to patient in accordance with Admission requirements found in Title 42 Section 412.3 of the Code of Federal Regulations Patient History Date of Service: 09/06/17 Reason for admission: Difficulty breathing/history of COPD/home less History of Present Illness: Patient is a 66-year-old gentleman who came into the hospital with difficulty breathing. Patient is had numerous admissions recently as he was kicked out of his trailer about a month ago. Since then he has been pretty much homeless. He had been using his nebulizer religiously; however, he has not been able to use his medications because he is apparently living in the [facility]. His social situation is leading to numerous admissions to the hospital. Hopefully we can figure out a good discharge plan otherwise he will continue to come back and to the emergency room for recurrent admissions. He was in severe respiratory distress was given IV diuretics and neb treatments. His clinical symptoms have improved. Will continue with current treatment with nebs, steroids, and diuresing him. Will get psychosocial rehabilitation counselor involved in his plan of care. Before slowly, we do not have a lot of options for homeless population in the [facility] area. Will talk with our psychosocial rehabilitation counselor and hopefully we can arrange for him to stay at a facility were he can take his nebulizers regularly Allergies diphenhydramine HCl [From Benadryl] Adverse Reaction (Verified 09/01/17 08:49) Hives Home Medications: Aspirin [Aspirin EC 81 MG] 81 mg PO DAILY #30 tablet.dr 09/01/17 Clopidogrel Bisulfate [Plavix] 75 mg PO DAILY #30 tablet 09/01/17 Furosemide [Lasix] 40 mg PO DAILY #30 tab 09/01/17 Potassium Chloride 20 meq PO DAILY #30 tab.er.prt 09/01/17 Simvastatin 40 mg PO DAILY #30 tablet 09/01/17 Metoprolol Tartrate 50 mg PO DAILY 09/07/17 Nitroglycerin [Nitrostat] 0.4 mg SL PRN PRN 09/07/17 - Past Medical/Surgical History Has patient received pneumonia vaccine in the past: Yes Diabetic: Yes -: History of prostate cancer -: Hypertension -: History of brain aneurysm requiring surgery -: CHF, systolic dysfunction -: COPD -: Tobacco abuse -: Noncompliance -: Coronary disease, stents x3 to LAD/RCA(Feb 2016) -: Diabetes mellitus type 2 -: GERD -: anemia -: hyperlipidemia -: Prostate surgery -: Brain aneurysm surgery -: Toe surgery R. great toe/childhood -: Heart catheterization-3stents LAD/RCA Psychosocial/ Personal History: He is single, lives alone. He has no children. 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 - Family History Father Medical History: Cancer Notes: brain CA Mother Medical History: Cancer Notes: PANCREATIC CANCER Brother Medical History: Cancer Notes: lung CA - Social History Smoking Status: Current every day smoker Alcohol use: No CD- Drugs: No Caffeine use: Yes Place of Residence: [facility] Review of Systems 10-point ROS is otherwise unremarkable Physical Examination - Vital Signs Temperature: 97.6 F Blood Pressure: 159/92 Pulse: 69 Respirations: 16 Pulse Ox (%): 97 - Physical Exam General: Alert, In no apparent distress, Oriented x3 HEENT: Atraumatic, PERRLA, Mucous membr. moist/pink, EOMI, Sclerae nonicteric Neck: Supple, 2+ carotid pulse no bruit, No LAD, Without JVD or thyroid abnormality Respiratory: Diminished, Crackles/rales, Expiratory wheezes Cardiovascular: Regular rate/rhythm, Normal S1 S2, No murmurs Gastrointestinal: Normal bowel sounds, Soft and benign, Non-distended, No tenderness Musculoskeletal: No clubbing, No swelling, No tenderness Integumentary: No rashes Neurological: Normal gait, Normal speech, Normal strength at 5/5 x4 extr, Normal tone, Sensation intact, Cranial nerves 3-12 intact, Normal affect Lymphatics: No axilla or inguinal lymphadenopathy - Studies Laboratory Data (last 24 hrs) 09/06/17 20:54: PT 17.6 H, INR 1.49, APTT 28.6 09/06/17 20:54: WBC 9.5 D, Hgb 9.6 L, Hct 32.5 L, Plt Count 251 09/06/17 20:54: Sodium 143, Potassium 4.0, BUN 18, Creatinine 1.50 H, Glucose 147 H, Magnesium 2.3, Total Bilirubin 0.8, AST 18, ALT 19, Alkaline Phosphatase 90 Assessment & Plan - Problems (Diagnosis) (1) Acute on chronic systolic (congestive) heart failure Onset Date: 09/01/17 Current Visit: No Status: Acute (2) COPD exacerbation Onset Date: 12/19/15 Current Visit: No Status: Acute (3) Dyspnea Onset Date: 06/18/17 Current Visit: No Status: Acute (4) Flash pulmonary edema Onset Date: 07/19/16 Current Visit: No Status: Acute (5) Hypoxemia Onset Date: 03/08/16 Current Visit: No Status: Acute (6) Asbestos exposure Current Visit: No Status: Chronic (7) CAD (coronary artery disease) Onset Date: 03/18/16 Current Visit: No Status: Chronic Qualifiers: (8) Chronic renal disease Onset Date: 03/31/17 Current Visit: No Status: Chronic Qualifiers: (9) History of prostate cancer Current Visit: No Status: Chronic (10) Hyperlipidemia Onset Date: 07/19/16 Current Visit: No Status: Chronic Qualifiers: (11) Hypertension Onset Date: 02/05/16 Current Visit: No Status: Chronic Qualifiers: (12) Tobacco abuse Onset Date: 02/05/16 Current Visit: No Status: Chronic (13) Type 2 diabetes mellitus Onset Date: 12/10/16 Current Visit: No Status: Chronic Qualifiers: - Plan 1. Hold IV antibiotics a less cultures are positive 2. Continue with diuresing patient 3. Repeat chest x-ray 4. Continue with nebs 5. O2 per protocol 6. Hep-Lock IV 7. Social work consultation for assistance with placement were he will be able to take his medications 8. GI and DVT prophylaxis Discharge Plan: Other Plan to discharge in: Greater than 2 days - Advance Directives Does patient have a Living Will: No Does patient have a Durable POA for Healthcare: No - Code Status/Comfort Care Code Status Assessed: Yes Code Status: Full Code Critical Care: No Time Spent Managing PTS Care (In Minutes): 50
[2017-09-07] MEDS: ENOXAPARIN 40 MG/0.4 ML SQ SCH (08:20)
--- NOTE | 2017-09-07 10:55 | EKG ---
Test Date: 2017-09-06 Test Time: 20:56:33 [place] Blind[place]ch: AURELIA MEASUREMENT RESULTS: Intervals: Rate: 86 KS: 146 QRSD: 108 QT: 426 QTc: 509 Buckner: P: 70 KS: 146 QRS: 71 T: 48 INTERPRETIVE STATEMENTS: Normal sinus rhythm Possible Left atrial enlargement Left ventricular hypertrophy Nonspecific ST and T wave abnormality Prolonged QT Abnormal ECG Compared to ECG 08/31/2017 19:00:24 Left ventricular hypertrophy now present ST (T wave) deviation still present Electronically Signed On 09-07-17 10:54:12 CDT by Jitendra Willams
[2017-09-07] MEDS ORDERED: NITROGLYCERIN 0.4 MG/TAB SL PRN (10:59)
[2017-09-07] MEDS: FUROSEMIDE 40 MG/4 ML VIAL IV SCH ×2 (11:11→16:44)
--- NOTE | 2017-09-07 11:43 | P.PN ---
Subjective Date of Service: 09/07/17 Chief Complaint: Difficulty breathing/history of COPD/home less Subjective: No new changes, No C/O voiced, Tolerating diet, Ambulating, Improving Patient seen and examined at bedside. Chart reviewed. Patient this morning continues to be short of breath on and states that he needs oxygen and has been having difficulty breathing as well. Patient was given Lasix in the ER however has not received the Lasix this morning. Patient is noncompliant with medication and has frequent admissions here in the hospital. Medications were per her chest by his provider for total of 3 months which he should be still having on toe office on questioning patient states that his medications are his stent that the chamorro but he has not been taking them. Patient also [facility] for any help in regards to placement. Review of Systems General: As per HPI Physical Examination - Vital Signs Temperature: 96.6 F Blood Pressure: 174/96 Pulse: 74 Respirations: 12 Pulse Ox (%): 97 - Physical Exam General: Alert, Oriented x3, Mild distress Neck: Supple, JVD distended Respiratory: Normal air movement, Crackles/rales Cardiovascular: Regular rate/rhythm, Normal S1 S2 Gastrointestinal: Normal bowel sounds, Soft and benign, Non-distended, No tenderness Musculoskeletal: No tenderness Integumentary: No rashes Neurological: Normal speech, Normal tone, Normal affect Lymphatics: No axilla or inguinal lymphadenopathy - Studies Laboratory Data (last 24 hrs) 09/06/17 20:54: PT 17.6 H, INR 1.49, APTT 28.6 09/06/17 20:54: WBC 9.5 D, Hgb 9.6 L, Hct 32.5 L, Plt Count 251 09/06/17 20:54: Sodium 143, Potassium 4.0, BUN 18, Creatinine 1.50 H, Glucose 147 H, Magnesium 2.3, Total Bilirubin 0.8, AST 18, ALT 19, Alkaline Phosphatase 90 Medications List Reviewed: Yes Assessment & Plan - Problems (Diagnosis) (1) Acute on chronic systolic (congestive) heart failure Onset Date: 09/01/17 Current Visit: No Status: Acute Plan: Acute on Chronic Systolic Failure due to Noncompliance with medication -IV lasix BID for now -Resume home medication -Fluid restriction and Low NA diet. -Repeat Lab in AM -DC in 24 hrs if better (2) CAD (coronary artery disease) Current Visit: No Status: Chronic Qualifiers: Coronary Disease-Associated Artery/Lesion type: [place] artery [place] vs. transplanted heart: [place]bud heart Associated angina: without angina Qualified Code(s): I25.10 - Atherosclerotic heart disease of [place] coronary artery without angina pectoris (3) COPD (chronic obstructive pulmonary disease) Onset Date: 03/21/15 Current Visit: No Status: Chronic Qualifiers: COPD type: unspecified COPD Qualified Code(s): J44.9 - Chronic obstructive pulmonary disease, unspecified (4) Chronic renal disease Onset Date: 03/31/17 Current Visit: No Status: Chronic Qualifiers: Chronic kidney disease stage: stage 3 (moderate) (5) Family history of brain aneurysm Current Visit: No Status: Chronic (6) GERD (gastroesophageal reflux disease) Onset Date: 02/17/17 Current Visit: No Status: Chronic Qualifiers: Esophagitis presence: without esophagitis Qualified Code(s): K21.9 - Gastro -esophageal reflux disease without esophagitis (7) History of prostate cancer Current Visit: No Status: Chronic (8) Hyperlipidemia Onset Date: 07/19/16 Current Visit: No Status: Chronic Qualifiers: Hyperlipidemia type: mixed hyperlipidemia (9) Hypertension Onset Date: 02/05/16 Current Visit: No Status: Chronic Qualifiers: Hypertension type: essential hypertension (10) Nicotine dependence Onset Date: 04/03/17 Current Visit: No Status: Chronic Qualifiers: Nicotine product type: other Substance use status: in remission Qualified Code(s): F17.291 - Nicotine dependence, other tobacco product, in remission (11) Type 2 diabetes mellitus Onset Date: 12/10/16 Current Visit: No Status: Chronic Qualifiers: Diabetes mellitus 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
--- NOTE | 2017-09-07 13:46 | RAD REPORT ---
EXAM DESCRIPTION: RAD - Chest Pa And Lat (2 Views) - 09/07/2017 1:22 pm CLINICAL HISTORY: sob Chest pain. COMPARISON: Chest Single View dated 09/06/2017; Chest Single View dated 08/31/2017; Chest Single View da clarita 08/16/2017; Chest Single View dated 08/04/2017 FINDINGS: The lungs are emphysematous but clear. The heart is mildly enlarged in size. No displaced fractures. IMPRESSION: COPD.
[2017-09-07] MEDS ORDERED: ATORVASTATIN 20 MG TAB PO SCH (21:00)
[2017-09-08] MEDS: IPRATROPIUM BROM 0.5MG/2.5ML NEB SCH ×2 (01:25→08:54)
[2017-09-08] MEDS: ALBUTEROL 2.5 MG/3 ML NEB SOL NEB SCH ×2 (01:25→08:54)
[2017-09-08 04:50] LABS: Potassium 4.1 mmol/L (3.5-5.1)
[2017-09-08 07:52] VITALS: BP 157/77; TEMP 97.3
[2017-09-08] MEDS ORDERED: POTASSIUM CL SA 10 MEQ TAB PO SCH (09:00)
[2017-09-08] MEDS ORDERED: ASPIRIN EC 81 MG TAB PO SCH (09:00)
[2017-09-08] MEDS ORDERED: HOME MED 1 EA UNK (Simvastatin [Simvastatin] 40 MG) PO SCH (09:00)
[2017-09-08] MEDS ORDERED: METOPROLOL TAR 50 MG TAB PO SCH (09:00)
[2017-09-08] MEDS ORDERED: CLOPIDOGREL 75 MG TABLET PO SCH (09:00)
[2017-09-08] MEDS: FUROSEMIDE 40 MG/4 ML VIAL IV SCH (09:00)
[2017-09-08 09:05] VITALS: O2SAT 98
[2017-09-08] MEDS: ENOXAPARIN 40 MG/0.4 ML SQ SCH (09:52)
--- NOTE | 2017-09-09 06:16 | DS ---
Admitting Diagnoses: 1. Acute on chronic systolic congestive heart failure. 2. Chronic obstructive pulmonary disease exacerbation. 3. Dyspnea. 4. Flash pulmonary edema. 5. Hypoxemia. 6. Asbestos exposure. 7. Coronary artery disease. 8. Chronic renal disease. 9. History of prostate cancer. 10. Hyperlipidemia. 11. Hypertension. 12. Type 2 diabetes mellitus. 13. Nicotine dependence. Discharge Diagnoses: 1. Acute on chronic systolic congestive heart failure. The patient is noncompliant, improved. 2. Coronary artery disease, [place] artery, and [place] heart without angina. 3. Chronic obstructive pulmonary disease with acute exacerbation, improved. 4. Chronic kidney disease, stage 3. 5. History of brain aneurysm. 6. Gastroesophageal reflux disease without esophagitis. 7. History of prostate cancer. 8. Mixed hyperlipidemia. 9. Essential hypertension. 10. Nicotine dependence with cigarette smoking, uncomplicated. 11. Type 2 diabetes mellitus without long-term use of insulin without any complications. 12. Noncompliance. Hospital Course: The patient is a 66-year-old male who has had numerous previous admissions for similar issues of difficulty breathing. The patient apparently is homeless, lives between a trailer and a tent. The patient [facility] go to the [facility] as [facility]. The patient was started on IV Lasix as well as breathing treatments. His condition improved. His vital signs remained stable. He was afebrile. He was saturating 97% on room air. The patient otherwise was doing well. Kidney function was around baseline. The patient's symptoms improved. He was then cleared for discharge and then sent home in stable condition. Activity: As tolerated. Medications: As per medication reconciliation list. Followup: Follow up with PCP at the [facility] in 2-3 days. Follow up with Cardiology in 2 weeks. Return to ER for worsening condition. Physical Examination: General: Awake, alert, oriented, no acute distress. CV: S1, S2. No murmurs. Respiratory: Moving air well bilaterally. No wheezing. Gastrointestinal: Abdomen is soft, nontender, and nondistended. Positive bowel sounds. Extremities: No clubbing, cyanosis, or edema. Neuro: Nonfocal. SA/MODL Voice ID: [id number] Report ID: [id number] [facility]ITAL[facility]
== END 2017-09-08 10:35 | disposition home or self-care (01) ==
LOC: ER 20:42 → ERHOLD 23:32 → 2ND 09-07 00:02
PROVIDERS: ADMIT Family Medicine; ATTEND Hospitalist
DX: I13.0 Hypertensive heart and chronic kidney disease with heart failure and stage 1 through stage 4 chronic kidney disease, or unspecified chronic kidney disease (principal); I50.23 Acute on chronic systolic (congestive) heart failure; N18.3 Chronic kidney disease, stage 3 (moderate); E11.22 Type 2 diabetes mellitus with diabetic chronic kidney disease; J44.1 Chronic obstructive pulmonary disease with (acute) exacerbation; I25.10 Atherosclerotic heart disease of native coronary artery without angina pectoris; K21.9 Gastro-esophageal reflux disease without esophagitis; Z85.46 Personal history of malignant neoplasm of prostate; E78.2 Mixed hyperlipidemia; F17.210 Nicotine dependence, cigarettes, uncomplicated; Z91.14 Patient's other noncompliance with medication regimen; Z59.0 Homelessness; Z79.82 Long term (current) use of aspirin; Z95.5 Presence of coronary angioplasty implant and graft
CPT/HCPCS: 36415 ×2; 71045; 71046; 80048 ×3; 80076; 81003; 82550; 82553; 83735 ×2; 83880 ×2; 84100; 84484 ×3; 85025 ×2; 85610; 85730; 93005; 94640 ×2; 96372; 96374; 99285; G0378 ×2; J1650 ×3

== ENCOUNTER 2017-09-18 14:33 | Observation (INO) | payer OTHER ==
[2017-09-18] MEDS ORDERED: IPRATROPIUM BROM 0.5MG/2.5ML ONE (15:03)
[2017-09-18] MEDS ORDERED: ALBUTEROL 2.5 MG/3 ML NEB SOL ONE (15:03)
[2017-09-18 15:08] LABS: Absolute Lymphocytes (CBC) 3.1 K/uL (0.7-4.9); Absolute Monocytes 1.3 K/uL (0.1-1.3); Absolute Neutrophil 3.3 K/uL (1.8-8.0); Basophils % 0.8 % (0-1.3); Eosinophils % 2.4 % (0-4.4); Lymphocytes % 39.1 % (15.3-44.8); MCH 17.5 pg (27.0-35.0); MCV 58.6 fL (80-100); MPV 8.8 fL (7.6-11.3); Monocytes % 16.4 % (3.3-12.3); RBC Red Blood Cell Count 5.29 M/uL (4.33-5.43)
[2017-09-18 15:12] LABS: Protime INR 1.51
--- NOTE | 2017-09-18 15:16 | RAD REPORT ---
EXAM DESCRIPTION: RAD - Chest Single View - 09/18/2017 3:06 pm CLINICAL HISTORY: SOB Chest pain. COMPARISON: Chest Pa And Lat (2 Views) dated 09/07/2017; Chest Single View dated 09/06/2017; Chest Singl e View dated 08/31/2017; Chest Single View dated 08/16/2017 FINDINGS: Portable technique limits examination quality. [id number] interstitial pulmonary edema. The is moderately enlarged in size. No displaced fract ures. IMPRESSION: Mild to moderate CHF/ volume overload pattern.
[2017-09-18 15:26] LABS: Albumin 3.5 g/dL (3.4-5.0); Bilirubin Direct 0.1 mg/dL (0-0.2); Bilirubin Total 0.4 mg/dL (0.2-1.0); CKMB Creatine Kinase MB 2.7 ng/mL (0.3-3.6); Magnesium 2.1 mg/dL (1.8-2.4); Potassium 3.8 mmol/L (3.5-5.1); Protein, Total 6.6 g/dL (6.4-8.2)
[2017-09-18] MEDS ORDERED: FUROSEMIDE 40 MG/4 ML VIAL ONE (15:29)
[2017-09-18] MEDS ORDERED: ASPIRIN 81 MG CHEWABLE TABLET ONE (16:14)
--- NOTE | 2017-09-18 16:17 | EDPHYS ---
Physician Documentation [facility] Name: Mark Terrell Age: 66 yrs Sex: Male : 1950 Arrival Date: 09/18/2017 Time: 14:39 Bed 13 Private MD: ED Physician Ryan Vasquez HPI: 09/18 14:44 This 66 yrs old Male presents to ER via EMS with complaints of Shortness Of jmm Breath, High Blood Pressure. 14:44 The patient has shortness of breath at rest, while exercising. Onset: The jmm symptoms/episode began/occurred today. Duration: The symptoms are continuous. Associated signs and symptoms: Pertinent positives: non-productive cough, Pertinent negatives:. The patient has experienced similar episodes in the past, several times. This is a 66 year old male with a history of CHF, COPD, A. fib, that presents to the ED with shortness of breath beginning earlier today. Patient believes he may have been over exerting himself while riding his bicycle. Patient denies chest pain. Denies fever. . Historical: - Allergies: 14:44 Benadryl; mb3 - Home Meds: 14:44 Lasix 20 mg Oral tab once daily [Active]; Nitroglycerin SL [Active]; mb3 - PMHx: 14:44 Aneurysm; BRAIN; Atrial Fib; Cancer; PROSTATE; CHF; COPD; Hypertension; Prostate Cancer;mb3 - PSHx: 14:44 brain anurism clip; mb3 - Immunization history:: Adult Immunizations up to date. - Social history:: Smoking status: Patient uses tobacco products, smokes one-half pack cigarettes per day. - Ebola Screening: : Patient denies travel to an Ebola-affected area in the 21 days before illness onset No symptoms or risks identified at this time. ROS: 14:44 Constitutional: Negative for fever, chills, and weight loss, Eyes: Negative for injury, jmm pain, redness, and discharge, ENT: Negative for injury, pain, and discharge. 14:44 Abdomen/GI: Negative for abdominal pain, nausea, vomiting, diarrhea, and constipation, Back: Negative for injury and pain, : Negative for injury, bleeding, discharge, and swelling, MS/Extremity: Negative for injury and deformity, Skin: Negative for injury, rash, and discoloration, Neuro: Negative for headache, weakness, numbness, tingling, and seizure. 14:44 Respiratory: Positive for shortness of breath. 14:44 All other systems are negative. Exam: 14:44 Head/Face: atraumatic. Chest/axilla: Normal chest wall appearance and motion. [facility] Cardiovascular: Regular rate and rhythm. No edema appreciated 14:44 Back: Normal ROM Skin: General appearance color normal MS/ Extremity: Moves all extremities, no obvious deformities appreciated, no edema noted to the lower extremities Neuro: Awake and alert, normal gait Psych: Behavior is normal, Mood is normal, Patient is cooperative and pleasant 14:44 Constitutional: The patient appears in no acute distress, alert, awake. 14:44 Respiratory: mild respiratory distress is noted, Respirations: labored breathing, that is mild, Breath sounds: decreased breath sounds, that are moderate. Vital Signs: 14:45 BP 185 / 115; Pulse 77; Resp 24; Temp 98.3; Pulse Ox 97% on R/A; Weight 89.81 kg; 3 Height 5 ft. 11 in. (180.34 cm); Pain 0/10; 16:47 BP 180 / 120; Pulse 85; Resp 20; Pulse Ox 93% on R/A; mb3 17:12 BP 195 / 97; Pulse 85; Resp 20; Pulse Ox 92% on R/A; mb3 17:53 BP 197 / 112; Pulse 80; Resp 20; Pulse Ox 95% on R/A; mb3 14:45 Body Mass Index 27.62 (89.81 kg, 180.34 cm) [facility] MDM: 15:02 Patient medically screened. [facility] 16:16 Data reviewed: vital signs, nurses notes, lab test result(s). [facility] 16:30 Data reviewed: EKG, radiologic studies, plain films. ED course: I discussed the patient [facility] with Petar Beltran PA-C whom accepted admission. Will see the patient in the ED. . 09/18 14:44 Order name: Basic Metabolic Panel [facility] 09/18 14:44 Order name: CBC with Diff; Complete Time: 15:55 [facility] 09/18 14:44 Order name: Ckmb [facility] 09/18 14:44 Order name: CPK [facility] 09/18 14:44 Order name: LFT's; Complete Time: 15:55 [facility] 09/18 14:44 Order name: Magnesium; Complete Time: 15:55 [facility] 09/18 14:44 Order name: NT PRO-BNP; Complete Time: 15:55 [facility] 09/18 14:44 Order name: PT-INR; Complete Time: 15:55 [facility] 09/18 14:44 Order name: Ptt, Activated; Complete Time: 15:55 [facility] 09/18 14:44 Order name: Troponin (emerg Dept Use Only); Complete Time: 15:55 [facility] 09/18 14:45 Order name: Basic Metabolic Panel; Complete Time: 15:55 [facility] 09/18 14:45 Order name: CKMB Creatine Kinase MB; Complete Time: 15:55 [facility] 09/18 14:45 Order name: Creatine Phosphokinase; Complete Time: 15:55 [facility] 09/18 16:26 Order name: Urine Dipstick--Ancillary (enter results); Complete Time: 17:48 09/18 14:44 Order name: XRAY Chest (1 view); Complete Time: 15:18 [facility] 09/18 14:44 Order name: EKG; Complete Time: 14:45 [facility] 09/18 14:44 Order name: Cardiac monitoring; Complete Time: 15:22 [facility] 09/18 14:44 Order name: EKG - Nurse/Tech; Complete Time: 15:22 [facility] 09/18 14:44 Order name: IV Saline Lock; Complete Time: 15:22 [facility] 09/18 14:44 Order name: Labs collected and sent; Complete Time: 15:23 [facility] 09/18 14:44 Order name: O2 Per Protocol; Complete Time: 15:23 [facility] 09/18 14:44 Order name: O2 Sat Monitoring; Complete Time: 15:23 [facility] 09/18 14:44 Order name: Urine Dipstick-Ancillary (obtain specimen); Complete Time: 18:06 [facility] Administered Medications: 15:04 Drug: DuoNeb (3:1) (2.5 mg - 0.5 mg) 3 ml Route: Nebulizer; rb1 18:00 Follow up: Response: No adverse reaction mb3 15:29 Drug: Lasix 40 mg Route: IVP; Site: right forearm; mb3 18:00 Follow up: Response: No adverse reaction mb3 16:22 Drug: Aspirin 325 mg Route: PO; mb3 18:00 Follow up: Response: No adverse reaction mb3 Disposition: 18:15 Co-signature as Attending Physician, Ryan Vasquez MD. rn Disposition: 09/18/17 16:17 Hospitalization ordered by Bibi De León for Observation. Preliminary diagnosis is Acute combined systolic (congestive) and diastolic (congestive) heart failure. - Bed requested for Telemetry/MedSurg (observation). - Status is Observation. mb3 - Condition is Stable. - Problem is an acute exacerbation. - Symptoms have improved. UTI on Admission? No Signatures: Dispatcher [employer] EDMS Jeri Ospina RN RN Jaime Evans PA PA jmm Nieto, Roman, MD MD rn Barber, Rebecca RN Maria A Virgen Mark RN RN mb3 Corrections: (The following items were deleted from the chart) 16:58 16:17 Hospitalization Ordered by Bibi De León MD for Observation. Preliminary diagnosis eb is Acute combined systolic (congestive) and diastolic (congestive) heart failure. Bed requested for Telemetry/MedSurg (observation). Status is Observation. Condition is Stable. Problem is an acute exacerbation. Symptoms have improved. UTI on Admission? No. [facility] 17:37 16:58 09/18/2017 16:17 Hospitalization Ordered by Bibi De León MD for Observation. dw Preliminary diagnosis is Acute combined systolic (congestive) and diastolic (congestive) heart failure. Bed requested for Telemetry/MedSurg (observation). Status is Observation. Condition is Stable. Problem is an acute exacerbation. Symptoms have improved. UTI on Admission? No. eb 18:07 17:37 09/18/2017 16:17 Hospitalization Ordered by Bibi De León MD for Observation. mb3 Preliminary diagnosis is Acute combined systolic (congestive) and diastolic (congestive) heart failure. Bed requested for Telemetry/MedSurg (observation). Status is Observation. Condition is Stable. Problem is an acute exacerbation. Symptoms have improved. UTI on Admission? No. dw
--- NOTE | 2017-09-18 16:17 | ER ---
Nurse's Notes [facility] Name: Mark Terrell Age: 66 yrs Sex: Male : 1950 Arrival Date: 09/18/2017 Time: 14:39 Bed 13 Private MD: Diagnosis: Acute combined systolic (congestive) and diastolic (congestive) heart failure Presentation: 09/18 14:40 Presenting complaint: EMS states: Stated patient was at [facility] and ask staff there to mb3 call ems because of shortness of breath. After ems arrived they gave him breathing treatment. Normally pt refuses to come in but his b/p was elevated so agreed to come in this time. EMS stated they have been called numerous times for the pt this year. Transition of care: patient was not received from another setting of care. Onset of symptoms is unknown. Risk Assessment: Do you want to hurt yourself or someone else? Patient reports no desire to harm self or others. Initial Sepsis Screen: Does the patient meet any 2 criteria? No. Patient's initial sepsis screen is negative. Does the patient have a suspected source of infection? No. Patient's initial sepsis screen is negative. Care prior to arrival: Medication(s) given: Albuterol Neb x 1, Atrovent Neb x 1. 14:40 Method Of Arrival: EMS: [facility] 3 14:40 Acuity: ARIEL 3 mb3 Triage Assessment: 15:21 General: Appears unkempt. General: Behavior is calm, cooperative, appropriate for age. mb3 Respiratory: Onset: The symptoms/episode began/occurred at an unknown time. Respiratory: the patient has moderate shortness of breath. Historical: - Allergies: 14:44 Benadryl; mb3 - Home Meds: 14:44 Lasix 20 mg Oral tab once daily [Active]; Nitroglycerin SL [Active]; mb3 - PMHx: 14:44 Aneurysm; BRAIN; Atrial Fib; Cancer; PROSTATE; CHF; COPD; Hypertension; Prostate Cancer;mb3 - PSHx: 14:44 brain anurism clip; mb3 - Immunization history:: Adult Immunizations up to date. - Social history:: Smoking status: Patient uses tobacco products, smokes one-half pack cigarettes per day. - Ebola Screening: : Patient denies travel to an Ebola-affected area in the 21 days before illness onset No symptoms or risks identified at this time. Screenin:19 Abuse screen: Denies threats or abuse. Nutritional screening: No deficits noted. mb3 Tuberculosis screening: No symptoms or risk factors identified. Fall Risk None identified. Assessment: 15:16 General: Appears distressed, uncomfortable, Behavior is calm, cooperative, appropriate mb3 for age. Pain: Denies pain. Neuro: Level of Consciousness is awake, alert, obeys commands, Oriented to person, place, time, situation, Appropriate for age. Cardiovascular: Heart tones present Capillary refill < 3 seconds Patient's skin is warm and dry. Pulses are all present. Rhythm is regular. Respiratory: Reports shortness of breath at rest Airway is patent Respiratory effort is even, labored, Respiratory pattern is regular, symmetrical, tachypnea Breath sounds are coarse bilaterally. Breath sounds are diminished in right middle lobe, left lower lobe, right lower lobe, left posterior lower lobe, right posterior middle lobe and right posterior lower lobe. GI: No deficits noted. No signs and/or symptoms were reported involving the gastrointestinal system. : No deficits noted. No signs and/or symptoms were reported regarding the genitourinary system. EENT: No deficits noted. No signs and/or symptoms were reported regarding the EENT system. Musculoskeletal: No deficits noted. No signs and/or symptoms reported regarding the musculoskeletal system. 16:49 Reassessment: No changes from previously documented assessment. Patient and/or family mb3 updated on plan of care and expected duration. Pain level reassessed. Patient is alert, oriented x 3, equal unlabored respirations, skin warm/dry/pink. Vital Signs: 14:45 BP 185 / 115; Pulse 77; Resp 24; Temp 98.3; Pulse Ox 97% on R/A; Weight 89.81 kg; mb3 Height 5 ft. 11 in. (180.34 cm); Pain 0/10; 16:47 BP 180 / 120; Pulse 85; Resp 20; Pulse Ox 93% on R/A; mb3 17:12 BP 195 / 97; Pulse 85; Resp 20; Pulse Ox 92% on R/A; mb3 17:53 BP 197 / 112; Pulse 80; Resp 20; Pulse Ox 95% on R/A; mb3 14:45 Body Mass Index 27.62 (89.81 kg, 180.34 cm) mb3 ED Course: 14:39 Patient arrived in ED. mb3 14:42 Triage completed. mb3 14:44 Jaime Hough PA is PHCP. m 14:44 Ryan Vasquez MD is Attending Physician. m 14:44 EKG done, by technology and engineering teacher. reviewed by Ryan Vasquez MD. sm3 15:00 Inserted saline lock: 20 gauge in right forearm, using aseptic technique. Blood mb3 collected. 15:05 XRAY Chest (1 view) In Process Unspecified. EDMS 15:15 Clive Hampton, RN is Primary Nurse. mb3 15:18 Patient has correct armband on for positive identification. Bed in low position. Call mb3 light in reach. Side rails up X 1. night monitor on. Pulse ox on. NIBP on. 15:21 Arm band placed on right wrist. mb3 16:17 Bibi De León MD is Hospitalizing Provider. m 17:45 No provider procedures requiring assistance completed. Patient admitted, IV remains in mb3 place. 18:06 Basic Metabolic Panel Sent. mb3 18:06 Ckmb Sent. mb3 18:06 CPK Sent. mb3 Administered Medications: 15:04 Drug: DuoNeb (3:1) (2.5 mg - 0.5 mg) 3 ml Route: Nebulizer; rb1 18:00 Follow up: Response: No adverse reaction mb3 15:29 Drug: Lasix 40 mg Route: IVP; Site: right forearm; mb3 18:00 Follow up: Response: No adverse reaction mb3 16:22 Drug: Aspirin 325 mg Route: PO; mb3 18:00 Follow up: Response: No adverse reaction mb3 Output: 17:12 Urine: 2000ml (Voided); Total: 2000ml. mb3 Outcome: 16:17 Decision to Hospitalize by Provider. jmm 17:45 Admitted to Med/surg accompanied by tech, via wheelchair, room 228, with chart, Report mb3 called to Satnam Shaw RN 17:45 Condition: stable 17:45 Instructed on the need for admit. 18:07 Patient left the ED. mb3 Signatures: Dispatcher [employer] EDMS Jaime Hough PA PA [facility] Mireya Liz RN RN rb1 Clive Hampton RN RN mb3 Sharri Luna 3
[2017-09-18 16:48] LABS: Urine Blood NEGATIVE (NEG); Urine Glucose NEGATIVE (NEG); Urine Protein 2+ (NEG); Urine pH 5.5 (5.0-7.0)
--- NOTE | 2017-09-18 17:18 | P.HP ---
Certification for Inpatient Patient admitted to: Observation With expected LOS: <2 Midnights Patient will require the following post-hospital care: None Practitioner: I am a practitioner with admitting privileges, knowledge of patient current condition, hospital course, and medical plan of care. Services: Services provided to patient in accordance with Admission requirements found in Title 42 Section 412.3 of the Code of Federal Regulations Patient History Date of Service: 09/18/17 Primary Care Provider: none Reason for admission: CHF Exacerbation History of Present Illness: This is a 66-year-old male who came to the ER via EMS today for acute-onset shortness of breath. Patient denies chest pain at this moment. Patient has a history of chronic kidney disease, hypertension, CHF, atrial fib, COPD. The patient currently is homeless and living outside. Patient only compliant with medicine about half the time. The patient was worked up in the ED. It was found that patient's BNP was elevated greater than 17,000, and have a troponin of 0.07. Patient no acute distress at this time upon evaluation. Patient with mild bibasilar crackles noted upon examination. Oxygen saturation on room air between 90-95%. Will admit patient for CHF exacerbation. Allergies diphenhydramine HCl [From Benadryl] Adverse Reaction (Verified 09/01/17 08:49) Hives Home Medications: Aspirin [Aspirin EC 81 MG] 81 mg PO DAILY #30 tablet. 09/01/17 Clopidogrel Bisulfate [Plavix*] 75 mg PO DAILY #30 tablet 09/01/17 Furosemide [Lasix*] 40 mg PO DAILY #30 tab 09/01/17 Potassium Chloride 20 meq PO DAILY #30 tab.er.prt 09/01/17 Simvastatin 40 mg PO DAILY #30 tablet 09/01/17 Metoprolol Tartrate 50 mg PO DAILY 09/07/17 Nitroglycerin [Nitrostat*] 0.4 mg SL PRN PRN 09/07/17 - Past Medical/Surgical History Has patient received pneumonia vaccine in the past: No Diabetic: No -: History of prostate cancer -: Hypertension -: History of brain aneurysm requiring surgery -: CHF, systolic dysfunction -: COPD -: Tobacco abuse -: Noncompliance -: Coronary disease, stents x3 to LAD/RCA(Feb 2016) -: Diabetes mellitus type 2 -: GERD -: anemia -: hyperlipidemia -: Prostate surgery -: Brain aneurysm surgery -: Toe surgery R. great toe/childhood -: Heart catheterization-3stents LAD/RCA Psychosocial/ Personal History: He is single, lives alone. He has no children. 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 - Family History Father -: Cancer Notes: brain CA Mother -: Cancer Notes: PANCREATIC CANCER Brother -: Cancer Notes: lung CA - Social History Smoking Status: Current every day smoker Counseled patient to stop smoking for: less than 10 minutes Smoking therapy provided: No Alcohol use: No CD- Drugs: No Caffeine use: Yes Review of Systems 10-point ROS is otherwise unremarkable Respiratory: Shortness of Breath, SOB with Excertion Physical Examination - Vital Signs Temperature: 98.2 F Blood Pressure: 187/107 Pulse: 85 Respirations: 18 Pulse Ox (%): 90 - Physical Exam General: Alert, In no apparent distress, Oriented x3, Cooperative HEENT: PERRLA, Mucous membr. moist/pink, EOMI Neck: Supple, 2+ carotid pulse no bruit Respiratory: Crackles/rales (Bibasilar) Cardiovascular: No edema, Normal pulses, Regular rate/rhythm, Normal S1 S2 Capillary refill: <2 Seconds Gastrointestinal: Normal bowel sounds, Soft and benign, No tenderness Musculoskeletal: No clubbing, No swelling, No contractures, No erythema, No tenderness, No warmth Integumentary: No rashes, No breakdown, No significant lesion Neurological: Normal gait, Normal speech, Normal strength at 5/5 x4 extr, Normal tone, Sensation intact, Cranial nerves 3-12 intact, Normal affect - Studies Laboratory Data (last 24 hrs) 09/18/17 14:56: PT 17.9 H, INR 1.51, APTT 28.6 09/18/17 14:56: WBC 7.9, Hgb 9.2 L, Hct 31.0 L, Plt Count 260 09/18/17 14:56: Sodium 140, Potassium 3.8, BUN 24 H, Creatinine 1.40 H, Glucose 120 H, Magnesium 2.1, Total Bilirubin 0.4, AST 22, ALT 21, Alkaline Phosphatase 83 Assessment and Plan - Problems (Diagnosis) (1) Acute on chronic systolic (congestive) heart failure Onset Date: 09/01/17 Current Visit: No Status: Acute Plan: Will decrease in patient's blood pressure. Will put patient on IV Lasix. Oxygen nasal cannula as needed. Will monitor respiratory status. Patient had an echo this past July with 30-35% EF. Angiogram also done with balloon angioplasty. No stent placed at that time. (2) Elevated troponin Onset Date: 03/31/17 Current Visit: No Status: Acute Plan: Patient has chronic renal insufficiency with congestive heart failure. Troponin elevation likely due to comorbid conditions. Will try and troponins to ensure there is no market elevation. (3) Renal insufficiency Onset Date: 03/18/16 Current Visit: No Status: Acute Plan: Patient with chronic renal insufficiency. We will diurese and monitor renal function. (4) CAD (coronary artery disease) Current Visit: No Status: Chronic Qualifiers: Coronary Disease-Associated Artery/Lesion type: [place] artery [place] vs. transplanted heart: [place] heart Associated angina: without angina Qualified Code(s): I25.10 - Atherosclerotic heart disease of [place] coronary artery without angina pectoris (5) COPD (chronic obstructive pulmonary disease) Onset Date: 03/21/15 Current Visit: No Status: Chronic Plan: Patient will continue on albuterol and Atrovent as needed for chronic COPD. Qualifiers: COPD type: unspecified COPD Qualified Code(s): J44.9 - Chronic obstructive pulmonary disease, unspecified (6) Hyperlipidemia Onset Date: 07/19/16 Current Visit: No Status: Chronic Qualifiers: Hyperlipidemia type: mixed hyperlipidemia (7) Hypertension Onset Date: 02/05/16 Current Visit: No Status: Chronic Plan: Blood pressure will be managed with medicines while in the hospital and will be discharged home with medicines as well Qualifiers: Hypertension type: essential hypertension (8) Noncompliance Onset Date: 03/18/16 Current Visit: No Status: Chronic (9) Tobacco abuse Onset Date: 02/05/16 Current Visit: No Status: Chronic (10) Acute dyspnea Onset Date: 11/15/16 Current Visit: No Status: Acute Discharge Plan: Home Plan to discharge in: 24 Hours - Advance Directives Does patient have a Living Will: No Does patient have a Durable POA for Healthcare: No
[2017-09-18] MEDS ORDERED: ALBUTEROL 2.5 MG/3 ML NEB SOL NEB PRN (18:16)
[2017-09-18] MEDS ORDERED: IPRATROPIUM BROM 0.5MG/2.5ML NEB PRN (18:16)
[2017-09-18] MEDS ORDERED: ONDANSETRON 4 MG/2 ML VIAL IV PRN (18:16)
[2017-09-18] MEDS ORDERED: ACETAMINOPHEN 500 MG TAB PO PRN (18:16)
[2017-09-18] MEDS ORDERED: NITROGLYCERIN 0.4 MG/TAB SL PRN (18:16)
[2017-09-18] MEDS: ATORVASTATIN 20 MG TAB PO SCH (20:59)
[2017-09-18] MEDS: METOPROLOL TAR 50 MG TAB PO SCH (20:59)
[2017-09-19 05:21] LABS: Absolute Lymphocytes (CBC) 2.6 K/uL (0.7-4.9); Absolute Monocytes 1.2 K/uL (0.1-1.3); Absolute Neutrophil 4.7 K/uL (1.8-8.0); Basophils % 1.1 % (0-1.3); Eosinophils % 3.2 % (0-4.4); Hematocrit 30.1 % (39.6-49.0); Lymphocytes % 29.3 % (15.3-44.8); MCH 17.8 pg (27.0-35.0); MCV 58.2 fL (80-100); MPV 9.4 fL (7.6-11.3); Monocytes % 13.5 % (3.3-12.3); RBC Red Blood Cell Count 5.17 M/uL (4.33-5.43)
[2017-09-19 05:52] LABS: Potassium 3.7 mmol/L (3.5-5.1)
--- NOTE | 2017-09-19 08:07 | EKG ---
Test Date: 2017-09-18 Test Time: 14:36:27 Lift Operator: JOHANA MEASUREMENT RESULTS: Intervals: Rate: 79 MA: 148 QRSD: 116 QT: 434 QTc: 497 [place]: P: 77 MA: 148 QRS: 80 T: 55 INTERPRETIVE STATEMENTS: Normal sinus rhythm Left ventricular hypertrophy with QRS widening Prolonged QT Abnormal ECG Compared to ECG 09/06/2017 20:56:33 ST (T wave) deviation no longer present Electronically Signed On 09-19-17 08:03:29 CDT by Cyrus Porter
[2017-09-19] MEDS: CLOPIDOGREL 75 MG TABLET PO SCH (08:33)
[2017-09-19] MEDS: METOPROLOL TAR 50 MG TAB PO SCH ×2 (08:33→21:29)
[2017-09-19] MEDS: LISINOPRIL 20 MG TAB PO SCH (08:35)
[2017-09-19] MEDS: FUROSEMIDE 40 MG/4 ML VIAL IV SCH ×2 (08:36→18:04)
[2017-09-19] MEDS: ASPIRIN 81 MG CHEWABLE TABLET PO SCH (08:36)
[2017-09-19] MEDS: POTASSIUM CL SA 10 MEQ TAB PO SCH ×2 (08:38→09:00)
[2017-09-19 09:42] LABS: Anisocytosis 1+; Blood Morphology Comment NOTED (NOT SEEN); Hypochromasia 2+; Platelet Estimate ADEQ; Poikilocytosis 2+; Urine White Blood Cell Casts OK
--- NOTE | 2017-09-19 13:35 | PN ---
Date of Progress Note: 09/19/2017 Subjective: The patient seen and examined, chart reviewed, and case discussed with RN. The patient is still complaining of some shortness of breath, especially with exertion. Edema is improved. Review of Systems: Negative except as above. Medications: List reviewed. Objective: Vital Signs: Temperature 97.6, heart rate 74, blood pressure 173/97, respirations 20, an d O2 95% on room air. General: Awake, alert, oriented x3. Elderly male, disheveled, slightly ill appearing. CV: S1, S2. No murmurs. Peripheral pulses present. Respiratory: Diminished breath sounds. Crackles heard. No wheezing. Gastrointestinal: Abdomen is soft, nontender, nondistended. Positive bowel sounds. Extremities: No clubbing, cyanosis. Lower extremity edema present. Neurologic: Nonfocal. Laboratory Data: Sodium 145, potassium 3.7, chloride 110, CO2 27, BUN 21, creatinine 1.4, glucose 10 0, and calcium 8.2. Troponin 0.07, 0.07, 0.08. BNP 12,700. WBC 8.8, H and H 9.2 and 30.1, platelet s 257, and neutrophils 52%. Code Status: Full. Assessment: The patient is a 66-year-old male with; 1.Acute on chronic systolic congestive heart failure. We will continue with IV diuresis. The patie nt now on room air. Last echo shows EF 30-35% in July. Had an angiogram done with balloon angioplast y. Continue to monitor inputs and outputs. 2.Elevated troponin level. No chest pain. No changes on EKG, likely secondary to congestive heart failure. 3.Chronic kidney injury. We will continue to monitor creatinine, around baseline. 4.Coronary artery disease, [place] artery and [place] heart without angina. 5.Chronic obstructive pulmonary disease, chronic bronchitis, not oxygen dependent. 6.Hyperlipidemia, mixed. Continue statin. 7.Essential hypertension, stable. Continue home medications. 8.Noncompliance. 9.Nicotine dependence with cigarette smoking. Counseled. 10.Apparent history of brain aneurysm, status post repair. Plan: Continue diuresis. Obtain chest x-ray. Likely discharge in the next 24 hours if continues to improve. SA/MODL Voice ID: [id number] Report ID: [id number]
--- NOTE | 2017-09-19 15:30 | RAD REPORT ---
EXAM DESCRIPTION: RAD - Chest Single View - 09/19/2017 2:53 pm CLINICAL HISTORY: Chest pain, CHF COMPARISON: September 18 TECHNIQUE: AP portable chest image was obtained 1442 hours . FINDINGS: Chronic interstitial lung disease is present. Interstitial thickening or edema pattern is diminished compared to prior day study. Cardiomegaly remains. Upper lobe vasculature has diminished s lightly in prominence. Trachea is midline. No measurable pleural effusion and no pneumothorax. No ruth ss bony abnormality seen. No acute aortic findings suspected. IMPRESSION: CHF/volume overload pattern is still present but has shown some improvement from September 18 .
[2017-09-19] MEDS: ATORVASTATIN 20 MG TAB PO SCH (21:29)
[2017-09-20 05:19] VITALS: BMI 23.6
[2017-09-20 05:31] LABS: Absolute Lymphocytes (CBC) 1.9 K/uL (0.7-4.9); Absolute Monocytes 1.4 K/uL (0.1-1.3); Absolute Neutrophil 4.7 K/uL (1.8-8.0); Basophils % 0.7 % (0-1.3); Hematocrit 30.4 % (39.6-49.0); Lymphocytes % 22.4 % (15.3-44.8); MCH 17.6 pg (27.0-35.0); MCV 58.3 fL (80-100); MPV 9.2 fL (7.6-11.3); Monocytes % 16.7 % (3.3-12.3)
[2017-09-20 08:38] VITALS: O2SAT 98
[2017-09-20] MEDS: METOPROLOL TAR 50 MG TAB PO SCH (09:29)
[2017-09-20] MEDS: POTASSIUM CL SA 10 MEQ TAB PO SCH (09:29)
[2017-09-20] MEDS: LISINOPRIL 20 MG TAB PO SCH (09:30)
[2017-09-20] MEDS: CLOPIDOGREL 75 MG TABLET PO SCH (09:30)
[2017-09-20] MEDS: FUROSEMIDE 40 MG/4 ML VIAL IV SCH (09:30)
[2017-09-20] MEDS: ASPIRIN 81 MG CHEWABLE TABLET PO SCH (09:30)
--- NOTE | 2017-09-20 11:48 | P.DS ---
Admission Date: 09/18/17 Discharge Date: 09/20/17 Primary Care Provider: venice Disposition: ROUTINE DISCHARGE Discharge Condition: FAIR Reason for Admission: CHF Exacerbation Brief History of Present Illness: Patient is 66 years of age noncompliant with his medication history of congestive heart failure admitted with an exacerbation Hospital Course: Patient's hospital course was unremarkable at the time of discharge he was alert oriented responsive cooperative vital signs stable oxygenation satisfactory on examination alert oriented responsive cooperative chest clear cardiovascular system normal patient has renal insufficiency has a reason not to use [place] inhibitors patient is noncompliant with his medication has been instructed to resume he can recall the name of falls that his medications also been instructed to restrict fluid intake Vital Signs/Physical Exam: Temp Pulse Resp BP Pulse Ox 97.2 F 60 18 142/90 H 99 09/20/17 08:00 09/20/17 08:00 09/20/17 08:00 09/20/17 08:00 09/20/17 08:00 Laboratory Data at Discharge: WBC 8.3 K/uL (4.3-10.9) 09/20/17 04:55 Hgb 9.2 g/dL (13.6-17.9) L 09/20/17 04:55 Hct 30.4 % (39.6-49.0) L 09/20/17 04:55 Plt Count 257 K/uL (152-406) 09/20/17 04:55 PT 17.9 SECONDS (9.5-12.5) H 09/18/17 14:56 INR 1.51 09/18/17 14:56 APTT 28.6 SECONDS (24.3-36.9) 09/18/17 14:56 Sodium 145 mmol/L (136-145) 09/19/17 04:55 Potassium 3.7 mmol/L (3.5-5.1) 09/19/17 04:55 BUN 21 mg/dL (7-18) H 09/19/17 04:55 Creatinine 1.40 mg/dL (0.55-1.3) H 09/19/17 04:55 Glucose 100 mg/dL (74-106) 09/19/17 04:55 Magnesium 2.1 mg/dL (1.8-2.4) 09/18/17 14:56 Total Bilirubin 0.4 mg/dL (0.2-1.0) 09/18/17 14:56 AST 22 U/L (15-37) 09/18/17 14:56 ALT 21 U/L (12-78) 09/18/17 14:56 Alkaline Phosphatase 83 U/L (45-117) 09/18/17 14:56 Troponin I 0.08 ng/mL (0.0-0.045) H 09/18/17 22:37 Home Medications: Aspirin [Aspirin EC 81 MG] 81 mg PO DAILY #30 tablet.dr 09/01/17 Clopidogrel Bisulfate [Plavix*] 75 mg PO DAILY #30 tablet 09/01/17 Furosemide [Lasix*] 40 mg PO DAILY #30 tab 09/01/17 Potassium Chloride 20 meq PO DAILY #30 tab.er.prt 09/01/17 Simvastatin 40 mg PO DAILY #30 tablet 09/01/17 Metoprolol Tartrate 50 mg PO DAILY 09/07/17 Nitroglycerin [Nitrostat*] 0.4 mg SL PRN PRN 09/07/17 Patient Discharge Instructions: Patient to restrict fluid intake to 1200 cc a day. Patient to resume all his home medications Diet: Low sodium Activity: Ad kim
[2017-09-20 12:11] VITALS: BP 130/76; TEMP 98
== END 2017-09-20 13:06 | disposition home or self-care (01) ==
LOC: ER 14:33 → ERHOLD 16:17 → 2ND 18:01
PROVIDERS: ADMIT Physician Assistant; ATTEND Family Medicine
DX: I13.0 Hypertensive heart and chronic kidney disease with heart failure and stage 1 through stage 4 chronic kidney disease, or unspecified chronic kidney disease (principal); N18.9 Chronic kidney disease, unspecified; I50.23 Acute on chronic systolic (congestive) heart failure; I25.10 Atherosclerotic heart disease of native coronary artery without angina pectoris; J44.9 Chronic obstructive pulmonary disease, unspecified; Z91.14 Patient's other noncompliance with medication regimen; E78.2 Mixed hyperlipidemia; F17.210 Nicotine dependence, cigarettes, uncomplicated; Z59.0 Homelessness
CPT/HCPCS: 36415 ×2; 71045 ×2; 80048 ×2; 80076; 81003; 82550; 82553; 83735; 83880 ×2; 84484 ×3; 85025 ×3; 85610; 85730; 93005; 94640; 96374; 99285; G0378 ×2

== ENCOUNTER 2017-09-27 21:08 | Emergency (ER) | payer OTHER ==
[2017-09-27 21:53] LABS: MCH 17.5 pg (27.0-35.0); RBC Red Blood Cell Count 5.75 M/uL (4.33-5.43)
[2017-09-27 21:58] LABS: Protime INR 1.28
[2017-09-27 22:02] LABS: Absolute Lymphocytes (CBC) 2.1 K/uL (0.7-4.9); Absolute Monocytes 1.3 K/uL (0.1-1.3); Absolute Neutrophil 4.9 K/uL (1.8-8.0); Basophils % 0.8 % (0-1.3); Eosinophils % 3.7 % (0-4.4); Hematocrit 33.8 % (39.6-49.0); MCV 58.8 fL (80-100); MPV 9.6 fL (7.6-11.3); Monocytes % 15.2 % (3.3-12.3)
[2017-09-27 22:07] LABS: Anisocytosis 1+; Blood Morphology Comment NOTED (NOT SEEN); Hypochromasia 2+; Platelet Estimate ADEQ; Urine White Blood Cell Casts OK
[2017-09-27 22:16] LABS: CKMB Creatine Kinase MB 1.6 ng/mL (0.3-3.6); Magnesium 2.3 mg/dL (1.8-2.4)
[2017-09-27 22:18] LABS: ALT/SGPT 20 U/L (12-78); AST/SGOT 23 U/L (15-37); Albumin 3.9 g/dL (3.4-5.0); Alcohol Serum/Plasma < 3 mg/dL (<3); Alkaline Phosphatase 109 U/L (45-117); BUN Blood Urea Nitrogen 20 mg/dL (7-18); Bicarbonate 29 mmol/L (21-32); Bilirubin Direct 0.2 mg/dL (0-0.2); Bilirubin Total 0.6 mg/dL (0.2-1.0); Glucose Level 98 mg/dL (74-106); Potassium 3.7 mmol/L (3.5-5.1); Protein, Total 7.6 g/dL (6.4-8.2); Sodium Level 143 mmol/L (136-145)
--- NOTE | 2017-09-27 22:32 | ER ---
Nurse's Notes [facility] Name: Mark Terrell Age: 66 yrs Sex: Male : 1950 Arrival Date: 09/27/2017 Time: 21:08 Bed 17 Private MD: Diagnosis: Major depressive disorder, recurrent;Suicidal ideations Presentation: 09/27 21:15 Presenting complaint: Patient states: Reports suicidal ideation today. Patient states aj "I want to tie a rope around my neck and tie it off and then jump off a bridge.". Transition of care: patient was not received from another setting of care. Onset of symptoms was September 27, 2017. Risk Assessment: Do you want to hurt yourself or someone else? Patient reports desire/thoughts of hurting themselves or someone else. Provider notified. Initial Sepsis Screen: Does the patient meet any 2 criteria? No. Patient's initial sepsis screen is negative. Does the patient have a suspected source of infection? No. Patient's initial sepsis screen is negative. Care prior to arrival: None. 21:15 Method Of Arrival: Ambulatory 21:15 Acuity: ARIEL 2 aj Triage Assessment: 21:17 General: Appears in no apparent distress. comfortable, Behavior is calm, cooperative, aj appropriate for age. Pain: Denies pain. Neuro: Level of Consciousness is awake, alert, obeys commands, Oriented to person, place, time, situation, Appropriate for age. Respiratory: Airway is patent Respiratory effort is even, unlabored, Respiratory pattern is regular, symmetrical. Derm: Skin is intact, is healthy with good turgor, Skin is pink, warm \\T\\ dry. normal. Historical: - Allergies: 21:17 Benadryl; aj - Home Meds: 21:17 Lasix 20 mg Oral tab once daily [Active]; Nitroglycerin SL [Active]; Metoprolol aj Tartrate Oral [Active]; - PMHx: 21:17 Aneurysm; BRAIN; Atrial Fib; Cancer; PROSTATE; CHF; COPD; Hypertension; Prostate Cancer;aj - PSHx: 21:17 brain anurism clip; aj - Immunization history:: Adult Immunizations up to date. - Social history:: Smoking status: Patient uses tobacco products, smokes one-half pack cigarettes per day. - Ebola Screening: : Patient negative for fever greater than or equal to 101.5 degrees Fahrenheit, and additional compatible Ebola Virus Disease symptoms Patient denies exposure to infectious person Patient denies travel to an Ebola-affected area in the 21 days before illness onset No symptoms or risks identified at this time. - Family history:: not pertinent. Screenin:20 Abuse screen: Denies threats or abuse. Denies injuries from another. Nutritional ao screening: No deficits noted. Tuberculosis screening: No symptoms or risk factors identified. Fall Risk None identified. Assessment: 21:20 General: Appears in no apparent distress. comfortable, Behavior is calm, cooperative, ao appropriate for age. General: Reports Suicidal Ideation with a plan to jump from a bridge or tide a road on his neck. Pain: Denies pain. Neuro: Level of Consciousness is awake, alert, obeys commands, Oriented to person, place, time, situation, Appropriate for age Moves all extremities. Speech is normal, Facial symmetry appears normal, Pupils are PERRLA. Cardiovascular: Capillary refill < 3 seconds Patient's skin is warm and dry. Respiratory: Airway is patent Respiratory effort is even, unlabored, Respiratory pattern is regular, symmetrical. GI: Abdomen is non-distended. : No signs and/or symptoms were reported regarding the genitourinary system. EENT: No signs and/or symptoms were reported regarding the EENT system. Derm: No signs and/or symptoms reported regarding the dermatologic system. Musculoskeletal: Circulation, motion, and sensation intact. Range of motion: intact in all extremities. 22:20 Reassessment: Patient appears in no apparent distress at this time. Patient and/or ao family updated on plan of care and expected duration. Pain level reassessed. Patient is alert, oriented x 3, equal unlabored respirations, skin warm/dry/pink. 23:20 Reassessment: Patient appears in no apparent distress at this time. Patient and/or ao family updated on plan of care and expected duration. Pain level reassessed. Patient is alert, oriented x 3, equal unlabored respirations, skin warm/dry/pink. Sitter at bedside. Patient under no stress. Provide with food and drink. 09/28 00:50 Reassessment: Patient appears in no apparent distress at this time. Patient and/or ao family updated on plan of care and expected duration. Pain level reassessed. Patient is alert, oriented x 3, equal unlabored respirations, skin warm/dry/pink. Sitter at bedside. Patient resting under no stress. 01:50 Reassessment: Patient appears in no apparent distress at this time. Patient and/or ao family updated on plan of care and expected duration. Pain level reassessed. Patient is alert, oriented x 3, equal unlabored respirations, skin warm/dry/pink. 03:00 Reassessment: Patient appears in no apparent distress at this time. Patient and/or aa1 family updated on plan of care and expected duration. Pain level reassessed. Patient is alert, oriented x 3, equal unlabored respirations, skin warm/dry/pink. [facility] 04[facility]30 Reassessment: Patient appears in no apparent distress at this time. Patient and/or aa1 family updated on plan of care and expected duration. Pain level reassessed. Patient is alert, oriented x 3, equal unlabored respirations, skin warm/dry/pink. Pt still [facility]. Acceptance pending. 06:30 Reassessment: Patient appears in no apparent distress at this time. Patient and/or aa1 family updated on plan of care and expected duration. Pain level reassessed. Patient is alert, oriented x 3, equal unlabored respirations, skin warm/dry/pink. Pt still [facility]. Acceptance pending. 07:15 Reassessment: Patient appears in no apparent distress at this time. Patient and/or em family updated on plan of care and expected duration. Pain level reassessed. Patient is alert, oriented x 3, equal unlabored respirations, skin warm/dry/pink. General: Appears in no apparent distress. comfortable, unkempt, Behavior is calm, cooperative, Reports has been living in the [facility] for about a month, is homeless and doesn't have anything to live for, currently is not suicidal, but maybe those thought may come back again, currently denies pain. 08:53 Reassessment: Patient appears in no apparent distress at this time. Patient and/or em family updated on plan of care and expected duration. Pain level reassessed. Patient is alert, oriented x 3, equal unlabored respirations, skin warm/dry/pink. currently eating breakfast tray, no complaints at this time. 11:21 Reassessment: Patient appears in no apparent distress at this time. Patient and/or em family updated on plan of care and expected duration. Pain level reassessed. Patient is alert, oriented x 3, equal unlabored respirations, skin warm/dry/pink. Spoke with Triston RN from [facility] in [place] due to medical and cardiac issues. 11:22 Reassessment: called [facility] and spoke with intake nurse who reports that there ss are no available [facility] beds at this time and they do not anticipate any discharge until tomorrow. 13:00 Reassessment: Patient appears in no apparent distress at this time. Patient and/or em family updated on plan of care and expected duration. Pain level reassessed. currently eating lunch breakfast. 14:23 Reassessment: Spoke with Trisha from [facility], will call back later with more em instructions/details on possible transfer. 15:11 Reassessment: Patient appears in no apparent distress at this time. Spoke with Trisha eaton from [facility], wanted us to fax over the EKG and chest X-ray results, faxed and received confirmation. 15:40 Reassessment: Patient appears in no apparent distress at this time. Spoke with Trisha eaton from [facility], pt was denied due to substance abuse, was given other resources to try and get pt transferred ([facility] and [facility]), pending transfer to other facilities. 17:11 Reassessment: Patient appears in no apparent distress at this time. Patient and/or em family updated on plan of care and expected duration. Pain level reassessed. Patient is alert, oriented x 3, equal unlabored respirations, skin warm/dry/pink. currently eating dinner tray, no complaints at this time. 18:00 Reassessment: Patient appears in no apparent distress at this time. Patient and/or em family updated on plan of care and expected duration. Pain level reassessed. Patient is alert, oriented x 3, equal unlabored respirations, skin warm/dry/pink. Spoke with Neha from [facility], will evaluate labs and get doc to doc. 18:27 Reassessment: Patient appears in no apparent distress at this time. Patient and/or em family updated on plan of care and expected duration. Pain level reassessed. Patient is alert/active/playful, equal unlabored respirations, skin warm/dry/pink. administrative approval from [facility], pending EMS transportation. 19:09 Reassessment: report given to EMS. em Psych: 09/27 21:18 Subjective: Patient's mood is sad, Delusions are denied, Hallucinations are denied aj Having thoughts of suicide. Plan for suicide is Plans to hang himself from a bridge. Objective: Patient is cooperative, Speech is normal, Affect is appropriate. 21:20 Interventions: Removed personal items and placed in bag. Patient placed in hospital ao gown. Searched person for dangerous items. Belonging list filled out. Suicide Risk Assessment: Sad Person Scale: Sex of patient: Male: Score 1 point. Age of patient: Score 1 point if patient is over 65. Depression: Score 1 point if signs of depression are present. Previous Attempt: Score 0 point if patient has not previously attempted suicide. Substance Abuse: Score 0 point if patient does not abuse alcohol or drugs. Rational Thinking: Score 0 point if patient has rational thinking. Social Support: Score 1 point if social support is lacking and/or unavailable. Organized Plan: Score 1 point if patient had a plan in place. Relationship: Score 0 point if patient has a spouse or domestic partner. Chronic Sickness: Score 0 point if patient does not have a chronic illness, debilitating, or severe disorder. TOTAL POINTS: If total points are 5-6, proposed clinical action is to strongly consider hospitalization, depending upon confidence in the follow-up arrangement. Implement suicide precautions. 21:20 Safety Checks: Personal items have been removed. Door is open. Visitors are present. Pt ao denies substance abuse. Commitment: Patient will be a voluntary commitment. Vital Signs: 21:17 BP 169 / 95; Pulse 83; Resp 17; Temp 98.4; Pulse Ox 96% on R/A; Weight 89.81 kg; Height aj 5 ft. 11 in. (180.34 cm); 22:50 BP 166 / 98; Pulse 76; Resp 18; Pulse Ox 100% on R/A; Pain 0/10; ao 09/28 00:08 BP 185 / 103; Pulse 73; Resp 18; Temp 97.8(A); Pulse Ox 97% on R/A; mw2 02:55 BP 164 / 94; Pulse 77; Resp 16; Pulse Ox 98% on R/A; Pain 0/10; ao 04:06 BP 140 / 70; Pulse 70; Resp 16; Temp 97.9(O); Pulse Ox 98% on R/A; mw2 06:41 BP 155 / 86; Pulse 77; Resp 16; Pulse Ox 95% on R/A; Pain 0/10; aa1 08:05 BP 157 / 85; Pulse 69; Resp 16; Temp 98.0(O); Pulse Ox 96% on R/A; Pain 0/10; em 12:15 BP 158 / 84; Pulse 71; Resp 18; Pulse Ox 98% on R/A; Pain 0/10; em 15:30 BP 162 / 88; Pulse 78; Resp 16; Pulse Ox 98% on R/A; em 18:00 BP 169 / 82; Pulse 76; Resp 18; Temp 98.0(O); Pulse Ox 98% on R/A; Pain 0/10; em 09/27 21:17 Body Mass Index 27.62 (89.81 kg, 180.34 cm) aj ED Course: 09/27 21:08 Patient arrived in ED. es 21:15 Satish Catalan MD is Attending Physician. mónica 21:16 Triage completed. aj 21:17 Arm band placed on left wrist. Patient placed in an exam room. aj 21:18 Placed in gown. Bed in low position. Side rails up X2. Valuables inventory done. mw2 21:30 Safety checks: Items removed: yes. Door open/sign placed on door: yes. Family/friend mw2 present: no. Sitter present: Yes. 21:42 Hemal Hart, RN is Primary Nurse. ao 21:45 Safety checks: Items removed: yes. Door open/sign placed on door: yes. Family/friend mw2 present: no. Sitter present: Yes. 21:50 Inserted saline lock: 20 gauge in right antecubital area, using aseptic technique. mw2 Blood collected. 22:00 Safety checks: Items removed: yes. Door open/sign placed on door: yes. Family/friend mw2 present: no. Sitter present: Yes. 22:15 Safety checks: Items removed: yes. Door open/sign placed on door: yes. Family/friend mw2 present: no. Sitter present: Yes. 22:30 Safety checks: Items removed: yes. Door open/sign placed on door: yes. Family/friend mw2 present: no. Sitter present: Yes. 22:32 XRAY Chest (1 view) In Process Unspecified. EDMS 22:45 Safety checks: Items removed: yes. Door open/sign placed on door: yes. Family/friend mw2 present: no. Sitter present: Yes. 23:00 Safety checks: Items removed: yes. Door open/sign placed on door: yes. Family/friend mw2 present: no. Sitter present: Yes. 23:15 Safety checks: Items removed: yes. Door open/sign placed on door: yes. Family/friend mw2 present: no. Sitter present: Yes. 23:30 Safety checks: Items removed: yes. Door open/sign placed on door: yes. Family/friend mw2 present: no. Sitter present: Yes. 23:45 Safety checks: Items removed: yes. Door open/sign placed on door: yes. Family/friend mw2 present: no. Sitter present: Yes. 09/28 00:00 Safety checks: Items removed: yes. Door open/sign placed on door: yes. Family/friend mw2 present: no. Sitter present: Yes. Safety checks: Items removed: yes. Door open/sign placed on door: yes. Family/friend present: no. Sitter present: Yes. 00:15 Safety checks: Items removed: yes. Door open/sign placed on door: yes. Family/friend mw2 present: no. Sitter present: Yes. 00:30 Safety checks: Items removed: yes. Door open/sign placed on door: yes. Family/friend mw2 present: no. Sitter present: Yes. 00:45 Safety checks: Items removed: yes. Door open/sign placed on door: yes. Family/friend mw2 present: no. Sitter present: Yes. 01:00 Safety checks: Items removed: yes. Door open/sign placed on door: yes. Family/friend mw2 present: no. Sitter present: Yes. 01:15 Safety checks: Items removed: yes. Door open/sign placed on door: yes. Family/friend mw2 present: no. Sitter present: Yes. 01:30 Safety checks: Items removed: yes. Door open/sign placed on door: yes. Family/friend mw2 present: no. Sitter present: Yes. 01:45 Safety checks: Items removed: yes. Door open/sign placed on door: yes. Family/friend mw2 present: no. Sitter present: Yes. 02:00 Safety checks: Items removed: yes. Door open/sign placed on door: yes. Family/friend mw2 present: no. Sitter present: Yes. 02:15 Safety checks: Items removed: yes. Door open/sign placed on door: yes. Family/friend mw2 present: no. Sitter present: Yes. 02:30 Safety checks: Items removed: yes. Door open/sign placed on door: yes. Family/friend mw2 present: no. Sitter present: Yes. 02:45 Safety checks: Items removed: yes. Door open/sign placed on door: yes. Family/friend mw2 present: no. Sitter present: Yes. 03:00 Safety checks: Items removed: yes. Door open/sign placed on door: yes. Family/friend mw2 present: no. Sitter present: Yes. 03:10 Report given to Marian AMANDA ao 03:15 Safety checks: Items removed: yes. Door open/sign placed on door: yes. Family/friend mw2 present: no. Sitter present: Yes. 03:30 Safety checks: Items removed: yes. Door open/sign placed on door: yes. Family/friend mw2 present: no. Sitter present: Yes. 03:45 Safety checks: Items removed: yes. Door open/sign placed on door: yes. Family/friend mw2 present: no. Sitter present: Yes. 04:00 Safety checks: Items removed: yes. Door open/sign placed on door: yes. Family/friend mw2 present: no. Sitter present: Yes. 04:15 Safety checks: Items removed: yes. Door open/sign placed on door: yes. Family/friend mw2 present: no. Sitter present: Yes. 04:30 Safety checks: Items removed: yes. Door open/sign placed on door: yes. Family/friend mw2 present: no. Sitter present: Yes. 04:45 Safety checks: Items removed: yes. Door open/sign placed on door: yes. Family/friend mw2 present: no. Sitter present: Yes. 05:00 Safety checks: Items removed: yes. Door open/sign placed on door: yes. Family/friend mw2 present: no. Sitter present: Yes. 05:15 Safety checks: Items removed: yes. Door open/sign placed on door: yes. Family/friend mw2 present: no. Sitter present: Yes. 05:30 Safety checks: Items removed: yes. Door open/sign placed on door: yes. Family/friend mw2 present: no. Sitter present: Yes. 05:45 Safety checks: Items removed: yes. Door open/sign placed on door: yes. Family/friend mw2 present: no. Sitter present: Yes. 06:00 Safety checks: Items removed: yes. Door open/sign placed on door: yes. Family/friend mw2 present: no. Sitter present: Yes. 06:15 Safety checks: Items removed: yes. Door open/sign placed on door: yes. Family/friend mw2 present: no. Sitter present: Yes. 06:30 Safety checks: Items removed: yes. Door open/sign placed on door: yes. Family/friend mw2 present: no. Sitter present: Yes. 06:45 Safety checks: Items removed: yes. Door open/sign placed on door: yes. Family/friend mw2 present: no. Sitter present: Yes. 07:00 Safety checks: Items removed: Door open/sign placed on door: Family/friend present: no. ag Sitter present: Yes. 07:15 Safety checks: Items removed: Door open/sign placed on door: yes. Family/friend ag present: no. Sitter present: Yes. 07:32 faxed the patient records and face sheet to intake at the following facilities: [facility], [facility], [facility], [facility], [facility], [facility], [facility], [facility], [facility]. 07:42 Venancio Mccabe LVN is Primary Nurse. em 07:45 Safety checks: Items removed: yes. Door open/sign placed on door: yes. Family/friend ag present: no. Sitter present: Yes. 08:00 Safety checks: Items removed: yes. Door open/sign placed on door: yes. Family/friend ag present: no. Sitter present: Yes. 08:15 Safety checks: Items removed: yes. Door open/sign placed on door: yes. Family/friend ag present: no. Sitter present: Yes. 08:25 [facility] and asked to please [facility] the urine drug screen and eb physician orders to [phone]. 08:30 Safety checks: Items removed: yes. Door open/sign placed on door: yes. Family/friend ag present: no. Sitter present: Yes. 08:37 No provider procedures requiring assistance completed. em 08:45 Safety checks: Items removed: yes. Door open/sign placed on door: yes. Family/friend ag present: no. Sitter present: Yes. 09:00 Safety checks: Items removed: yes. Door open/sign placed on door: yes. Family/friend ag present: no. Sitter present: Yes. 09:15 Safety checks: Items removed: yes. Door open/sign placed on door: yes. Family/friend ag present: no. Sitter present: Yes. 09:30 Safety checks: Items removed: yes. Door open/sign placed on door: yes. Family/friend ag present: no. Sitter present: Yes. 09:31 [facility] called and said they do not have any male beds at this time but will eb put him on a waiting list until tomorrow. 09:45 Safety checks: Items removed: yes. Door open/sign placed on door: yes. Family/friend ag present: no. Sitter present: Yes. 10:00 Safety checks: Items removed: yes. Door open/sign placed on door: yes. Family/friend ag present: no. Sitter present: Yes. 10:00 Safety checks: Items removed: yes. Door open/sign placed on door: yes. Family/friend sw3 present: no. Sitter present: Yes. 10:15 Safety checks: Items removed: yes. Door open/sign placed on door: yes. Family/friend sw3 present: no. Sitter present: Yes. 10:30 Safety checks: Items removed: yes. Door open/sign placed on door: yes. Family/friend sw3 present: no. Sitter present: Yes. 10:45 Safety checks: Items removed: yes. Door open/sign placed on door: yes. Family/friend sw3 present: no. Sitter present: Yes. 11:00 Safety checks: Items removed: yes. Door open/sign placed on door: yes. Family/friend sw3 present: no. Sitter present: Yes. 11:05 connected the Nurse from [facility] with ED Nurse for Nurse to Nurse. eb 11:15 Safety checks: Items removed: yes. Door open/sign placed on door: yes. Family/friend sw3 present: no. Sitter present: Yes. 11:17 [facility] declined transfer due to the medical needs the patients needs. eb 11:25 Paulette Monet FNP is PHCP. kav 11:30 refaxed all clinicals to [phone] at the [facility]. eb 11:30 Safety checks: Items removed: yes. Door open/sign placed on door: yes. Family/friend sw3 present: no. Sitter present: Yes. 11:45 Safety checks: Items removed: yes. Door open/sign placed on door: yes. Family/friend sw3 present: no. Sitter present: Yes. 12:00 Safety checks: Items removed: yes. Door open/sign placed on door: yes. Family/friend sw3 present: no. Sitter present: Yes. 12:15 Safety checks: Items removed: yes. Door open/sign placed on door: yes. Family/friend sw3 present: no. Sitter present: Yes. 12:30 Safety checks: Items removed: yes. Door open/sign placed on door: yes. Family/friend sw3 present: no. Sitter present: Yes. 12:45 Safety checks: Items removed: yes. Door open/sign placed on door: yes. Family/friend sw3 present: no. Sitter present: Yes. 13:00 Safety checks: Door open/sign placed on door: yes. Family/friend present: no. Sitter sw3 present: Yes. 13:15 Safety checks: Items removed: yes. Door open/sign placed on door: yes. Family/friend sw3 present: no. Sitter present: Yes. 13:16 Safety checks: Items removed: yes. Door open/sign placed on door: yes. Family/friend ag present: no. Sitter present: Yes. 13:30 Safety checks: Items removed: yes. Door open/sign placed on door: yes. Family/friend sw3 present: no. Sitter present: Yes. 13:45 Safety checks: Items removed: yes. Door open/sign placed on door: yes. Family/friend sw3 present: no. Sitter present: Yes. 13:52 Safety checks: Items removed: yes. sw3 14:00 Safety checks: Items removed: yes. Door open/sign placed on door: yes. Family/friend sw3 present: no. Sitter present: Yes. 14:15 Safety checks: Items removed: yes. Door open/sign placed on door: yes. Family/friend sw3 present: no. Sitter present: Yes. 14:30 Safety checks: Items removed: yes. Door open/sign placed on door: yes. Family/friend sw3 present: no. Sitter present: Yes. 14:45 Safety checks: Items removed: yes. Door open/sign placed on door: yes. Family/friend sw3 present: no. Sitter present: Yes. 15:00 Safety checks: Items removed: yes. Door open/sign placed on door: yes. Family/friend sw3 present: no. Sitter present: Yes. 15:13 FAXED OVER THE EKG AND XRAY REPORT TO 15:15 Safety checks: Items removed: yes. Door open/sign placed on door: yes. Family/friend sw3 present: no. Sitter present: Yes. 15:30 Safety checks: Items removed: yes. Door open/sign placed on door: yes. Family/friend sw3 present: no. Sitter present: Yes. 15:45 Safety checks: Items removed: yes. Door open/sign placed on door: yes. Family/friend sw3 present: no. Sitter present: Yes. 16:00 Safety checks: Items removed: yes. Door open/sign placed on door: yes. Family/friend sw3 present: no. Sitter present: Yes. 16:15 Safety checks: Items removed: yes. Door open/sign placed on door: yes. Family/friend sw3 present: no. Sitter present: Yes. 16:30 Safety checks: Items removed: yes. no. Reason for not removing items: Door open/sign sw3 placed on door: yes. Family/friend present: no. Sitter present: Yes. 16:45 Safety checks: Items removed: yes. Door open/sign placed on door: yes. Family/friend sw3 present: no. Sitter present: Yes. 17:00 Safety checks: Items removed: yes. Door open/sign placed on door: yes. Family/friend sw3 present: no. Sitter present: Yes. No. 17:06 called and initiated at transfer with Karen from [facility]. eb 17:15 Safety checks: Items removed: yes. Door open/sign placed on door: yes. Family/friend sw3 present: no. Sitter present: Yes. 17:30 Safety checks: Items removed: yes. Door open/sign placed on door: yes. Family/friend sw3 present: no. Sitter present: Yes. 17:35 [facility] called and said they are reviewing the patients records and call us back eb once the chart has been reviewd. 17:44 PHCP role handed off by Paulette Monet FNP pm1 17:44 Rj Arnold NP is PHCP. pm1 17:45 Safety checks: Items removed: yes. Door open/sign placed on door: yes. Family/friend sw3 present: no. Sitter present: Yes. 17:45 connected [facility] with the nurse taking care of the patient for nurse to nurse. eb 18:00 Safety checks: Items removed: yes. Door open/sign placed on door: yes. Family/friend sw3 present: no. Sitter present: Yes. 18:00 raxed the patient records again with both exclusionary forms to [facility]. eb 18:12 connected the [facility] doctor applications engineer with Rj APONTE for patient transfer eb conultation. 18:15 Safety checks: Items removed: yes. Door open/sign placed on door: yes. Family/friend sw3 present: no. Sitter present: Yes. 18:30 Safety checks: Items removed: yes. Door open/sign placed on door: yes. Family/friend sw3 present: no. Sitter present: Yes. 18:39 IV discontinued, intact, bleeding controlled, No redness/swelling at site. Pressure em dressing applied. 18:45 Safety checks: Items removed: yes. Door open/sign placed on door: yes. Family/friend sw3 present: no. Sitter present: Yes. 19:03 Safety checks: Items removed: yes. Door open/sign placed on door: yes. Family/friend ks6 present: no. Sitter present: Yes. Administered Medications: 07/28 21:36 CANCELLED (Duplicate Order): NS 0.9% 1000 ml IV at 1 bolus Per protocol; 1000 mL bolus [facility] 09/28 08:12 Drug: Lasix 20 mg Route: IVP; Site: right antecubital; 08:37 Follow up: Response: No adverse reaction em Outcome: 09/27 22:31 ER care complete, transfer ordered by . [facility] 09/28 18:39 Transferred by ground EMS to other acute care facility, Transfer form completed. X-rays em sent w/ patient. Condition: stable Instructed on the need for transfer, Demonstrated understanding of instructions. 19:10 Patient left the ED. em Signatures: Dispatcher [employer] EDMS Marian Mcpherson RN LASHAY aaLiane Cavanaugh RN Satish Borrego MD MD cha Vern, Katherine, CHERRY PITTER CHERRY PITTER yohana Abreu, Grace Mccabe, Venancio, CHEMISTRY DEPARTMENT CHAIR CHEMISTRY DEPARTMENT CHAIR em Tayler Flynn RN RN ss Gallardo, Ana ag Ortiz, Alex, RN RN ao Marinas, Patrick, NP PAVING SUPERVISOR pm1 Beba Andrade mw2 Maria A Parr Kyle ks6 Chelsi Aldrich sw3 Corrections: (The following items were deleted from the chart) 00:10 00:08 BP 185 / 103; Pulse 73bpm; Resp 18bpm; Pulse Ox 97% RA; Temp 97.8F; mw2 mw2 08:20 08:14 Bed in low position. Side rails up X2. ag ag 08:20 08:14 Bed in low position. Side rails up X2. ag ag 08:20 08:19 Safety checks: Items removed: yes. Door open/sign placed on door: yes. ag Family/friend present: no. Sitter present: Yes. ag 13:16 12:58 Safety checks: Items removed: yes. sw3 ag 17:00 16:26 Safety checks: Items removed: yes. Door open/sign placed on door: yes. sw3 Family/friend present: no. Sitter present: Yes. sw3
--- NOTE | 2017-09-27 22:32 | EDPHYS ---
Physician Documentation [facility] Name: Mark Terrell Age: 66 yrs Sex: Male : 1950 Arrival Date: 09/27/2017 Time: 21:08 Bed 17 Private MD: ED Physician Satish Catalan HPI: 09/27 21:36 This 66 yrs old Male presents to ER via Ambulatory with complaints of mónica Suicidal Ideation. 21:36 The patient presents to the emergency department with suicide ideation. Onset: The mónica symptoms/episode began/occurred 3 day(s) ago. Past psychiatric history: Prior diagnosis: no previous psychiatric diagnosis known. Associated signs and symptoms: The patient has no apparent associated signs or symptoms. Severity of symptoms: At their worst the symptoms were mild in the emergency department the symptoms are unchanged. The patient has not experienced similar symptoms in the past. Historical: - Allergies: 21:17 Benadryl; aj - Home Meds: 21:17 Lasix 20 mg Oral tab once daily [Active]; Nitroglycerin SL [Active]; Metoprolol aj Tartrate Oral [Active]; - PMHx: 21:17 Aneurysm; BRAIN; Atrial Fib; Cancer; PROSTATE; CHF; COPD; Hypertension; Prostate Cancer;aj - PSHx: 21:17 brain anurism clip; aj - Immunization history:: Adult Immunizations up to date. - Social history:: Smoking status: Patient uses tobacco products, smokes one-half pack cigarettes per day. - Ebola Screening: : Patient negative for fever greater than or equal to 101.5 degrees Fahrenheit, and additional compatible Ebola Virus Disease symptoms Patient denies exposure to infectious person Patient denies travel to an Ebola-affected area in the 21 days before illness onset No symptoms or risks identified at this time. - Family history:: not pertinent. ROS: 21:36 Constitutional: Negative for fever, chills, and weight loss, Eyes: Negative for injury, mónica pain, redness, and discharge, ENT: Negative for injury, pain, and discharge, Neck: Negative for injury, pain, and swelling, Cardiovascular: Negative for chest pain, palpitations, and edema, Respiratory: Negative for shortness of breath, cough, wheezing, and pleuritic chest pain, Abdomen/GI: Negative for abdominal pain, nausea, vomiting, diarrhea, and constipation, Back: Negative for injury and pain, : Negative for injury, bleeding, discharge, and swelling, MS/Extremity: Negative for injury and deformity, Skin: Negative for injury, rash, and discoloration, Neuro: Negative for headache, weakness, numbness, tingling, and seizure, Allergy/Immunology: Negative for hives, rash, and allergies, Endocrine: Negative for neck swelling, polydipsia, polyuria, polyphagia, and marked weight changes, Hematologic/Lymphatic: Negative for swollen nodes, abnormal bleeding, and unusual bruising. 21:36 Psych: Positive for depression, suicidal ideation. Exam: 21:36 Constitutional: This is a well developed, well nourished patient who is awake, alert, mónica and in no acute distress. Head/Face: Normocephalic, atraumatic. Eyes: Pupils equal round and reactive to light, extra-ocular motions intact. Lids and lashes normal. Conjunctiva and sclera are non-icteric and not injected. Cornea within normal limits. Periorbital areas with no swelling, redness, or edema. ENT: Nares patent. No nasal discharge, no septal abnormalities noted. Tympanic membranes are normal and external auditory canals are clear. Oropharynx with no redness, swelling, or masses, exudates, or evidence of obstruction, uvula midline. Mucous membranes moist. Neck: Trachea midline, no thyromegaly or masses palpated, and no cervical lymphadenopathy. Supple, full range of motion without nuchal rigidity, or vertebral point tenderness. No Meningismus. Chest/axilla: Normal chest wall appearance and motion. Nontender with no deformity. No lesions are appreciated. Cardiovascular: Regular rate and rhythm with a normal S1 and S2. No gallops, murmurs, or rubs. Normal PMI, no JVD. No pulse deficits. Respiratory: Lungs have equal breath sounds bilaterally, clear to auscultation and percussion. No rales, rhonchi or wheezes noted. No increased work of breathing, no retractions or nasal flaring. Abdomen/GI: Soft, non-tender, with normal bowel sounds. No distension or tympany. No guarding or rebound. No evidence of tenderness throughout. Back: No spinal tenderness. No costovertebral tenderness. Full range of motion. Male : Normal genitalia with no discharge or lesions. Skin: Warm, dry with normal turgor. Normal color with no rashes, no lesions, and no evidence of cellulitis. MS/ Extremity: Pulses equal, no cyanosis. Neurovascular intact. Full, normal range of motion. Neuro: Awake and alert, GCS 15, oriented to person, place, time, and situation. Cranial nerves II-XII grossly intact. Motor strength 5/5 in all extremities. Sensory grossly intact. Cerebellar exam normal. Normal gait. 21:36 Psych: Affect is calm, Oriented to person, place, time, Patient has no thoughts/intents to harm self or others. Judgement / Insight is normal. Memory is normal. Delusions/hallucinations are not present. Vital Signs: 21:17 BP 169 / 95; Pulse 83; Resp 17; Temp 98.4; Pulse Ox 96% on R/A; Weight 89.81 kg; Height aj 5 ft. 11 in. (180.34 cm); 22:50 BP 166 / 98; Pulse 76; Resp 18; Pulse Ox 100% on R/A; Pain 0/10; ao 09/28 00:08 BP 185 / 103; Pulse 73; Resp 18; Temp 97.8(A); Pulse Ox 97% on R/A; mw2 02:55 BP 164 / 94; Pulse 77; Resp 16; Pulse Ox 98% on R/A; Pain 0/10; ao 04:06 BP 140 / 70; Pulse 70; Resp 16; Temp 97.9(O); Pulse Ox 98% on R/A; mw2 06:41 BP 155 / 86; Pulse 77; Resp 16; Pulse Ox 95% on R/A; Pain 0/10; aa1 08:05 BP 157 / 85; Pulse 69; Resp 16; Temp 98.0(O); Pulse Ox 96% on R/A; Pain 0/10; em 12:15 BP 158 / 84; Pulse 71; Resp 18; Pulse Ox 98% on R/A; Pain 0/10; em 15:30 BP 162 / 88; Pulse 78; Resp 16; Pulse Ox 98% on R/A; em 18:00 BP 169 / 82; Pulse 76; Resp 18; Temp 98.0(O); Pulse Ox 98% on R/A; Pain 0/10; em 09/27 21:17 Body Mass Index 27.62 (89.81 kg, 180.34 cm) aj MDM: 09/27 21:15 Patient medically screened. [facility] 21:38 Data reviewed: vital signs, nurses notes, lab test result(s), EKG, radiologic studies, mónica plain films. 09/28 15:33 Awaiting: transfer to another facility, Acceptance from [facility]. 17:10 Transition of care: After a detail discussion of the patient's case, care is kav transferred to Rj Arnold NP. 18:21 Physician consultation: MD Olson was contacted at 18:30, regarding regarding pm1 transfer, patient's condition, and will see patient. 09/27 21:16 Order name: Acetaminophen; Complete Time: 22:27 [facility] 09/27 21:16 Order name: Basic Metabolic Panel; Complete Time: 22:27 [facility] 09/27 21:16 Order name: CBC with Diff; Complete Time: 22:27 [facility] 09/27 21:16 Order name: ETOH Level; Complete Time: 22:27 [facility] 09/27 21:16 Order name: Hepatic Function; Complete Time: 22:27 [facility] 09/27 21:16 Order name: PT-INR; Complete Time: 22:27 [facility] 09/27 21:16 Order name: Ptt, Activated; Complete Time: 22:27 [facility] 09/27 21:16 Order name: Salicylate; Complete Time: 22:27 [facility] 09/27 21:16 Order name: Urine Drug Screen; Complete Time: : [facility] 09/27 21:36 Order name: Ckmb; Complete Time: 22:27 [facility] 09/27 21:36 Order name: CPK; Complete Time: 22:27 [facility] 09/27 21:36 Order name: Magnesium; Complete Time: 22:27 [facility] 09/27 21:36 Order name: NT PRO-BNP; Complete Time: 22:27 [facility] 09/27 21:36 Order name: Troponin (emerg Dept Use Only); Complete Time: 22:27 [facility] 09/27 21:16 Order name: EKG; Complete Time: 21:16 [facility] 09/27 21:16 Order name: EKG - Nurse/Tech; Complete Time: 02:58 [facility] 09/27 21:16 Order name: IV Saline Lock; Complete Time: 21:43 [facility] 09/27 21:16 Order name: Labs collected and sent; Complete Time: 22:06 [facility] 09/27 21:16 Order name: Urine Dipstick-Ancillary (obtain specimen); Complete Time: 23:33 [facility] 09/27 21:36 Order name: XRAY Chest (1 view); Complete Time: 11:25 [facility] 09/27 21:36 Order name: Cardiac monitoring; Complete Time: 02:58 [facility] 09/27 21:36 Order name: O2 Per Protocol; Complete Time: 21:42 [facility] 09/27 21:36 Order name: O2 Sat Monitoring; Complete Time: 21:42 [facility] 09/27 22:07 Order name: CBC Smear Scan; Complete Time: 22:27 EDMS 09/27 23:03 Order name: Urine Dipstick--Ancillary (enter results); Complete Time: 07:29 ms 09/28 06:46 Order name: Diet Regular; Complete Time: 06:47 aa1 09/28 13:12 Order name: Diet Regular; Complete Time: 13:13 ag 09/28 13:57 Order name: Diet Regular; Complete Time: 13:58 sw3 Administered Medications: 09/27 21:36 CANCELLED (Duplicate Order): NS 0.9% 1000 ml IV at 1 bolus Per protocol; 1000 mL bolus [facility] 09/28 08:12 Drug: Lasix 20 mg Route: IVP; Site: right antecubital; 08:37 Follow up: Response: No adverse reaction em Disposition: 09/29 10:36 Co-signature as Attending Physician, Satish Catalan MD I agree with the assessment and [facility] plan of care. Disposition: 09/27/17 22:31 [facility]. Diagnosis are Major depressive disorder, recurrent, Suicidal ideations. - Reason for transfer: Specialty. - Accepting physician is To [facility]. - Condition is Stable. - Problem is new. - Symptoms have improved. Signatures: Dispatcher [employer] iLane Marte RN RN aj Anderson, Corey, MD MD cha Vern, Katherine, SOLUTION ANALYST SOLUTION ANALYST Venancio Aldridge, SKEWER UP SKEWER UP em Tayler Flynn RN RN ss Marinas, Patrick, FADI WAISTLINE JOINER OVERLOCK pm1 Corrections: (The following items were deleted from the chart) 09/27 21:36 21:16 NS 0.9% 1000 ml IV at 1 bolus Per protocol; 1000 mL bolus ordered. [facility] 09/28 18:32 07/28 22:31 09/27/2017 22:31 [facility] [place] [address] [facility]. Diagnosis is Major depressive disorder, recurrent; Suicidal ideations. Reason for transfer: Higher level of care. Accepting physician is to [facility]. Condition is Stable. Problem is new. Symptoms have improved. [facility] 09/28 19:10 18:32 09/27/2017 22:31 [facility] to [facility]. Diagnosis is Major em depressive disorder, recurrent; Suicidal ideations. Reason for transfer: Specialty. Accepting physician is To [facility]. Condition is Stable. Problem is new. Symptoms have improved. pm1
[2017-09-27 23:15] LABS: Urine Blood NEGATIVE (NEG); Urine Glucose NEGATIVE (NEG); Urine Protein 2+ (NEG); Urine Specific Gravity >1.030 (1.005-1.030); Urine pH 5.5 (5.0-7.0)
[2017-09-27 23:16] LABS: Barbiturates NEGATIVE (NEGATIVE); Benzodiazepines NEGATIVE (NEGATIVE); Cocaine NEGATIVE (NEGATIVE); METHAMPHETAM NEGATIVE (NEGATIVE); Methadone NEGATIVE (NEGATIVE); Opiates NEGATIVE (NEGATIVE); Phencyclidine NEGATIVE (NEGATIVE); THC Cannibis POSITIVE (NEGATIVE)
--- NOTE | 2017-09-28 07:34 | RAD REPORT ---
EXAM DESCRIPTION: RAD - Chest Single View - 09/27/2017 10:32 pm CLINICAL HISTORY: Cough, history of atrial fibrillation, COPD and CHF COMPARISON: September 19 TECHNIQUE: AP portable chest image was obtained 2205 hours . FINDINGS: No peripheral mass or consolidation. Interstitial markings are mildly prominent. Stable, m ild cardiomegaly. Upper lobe vasculature is mildly prominent. No measurable pleural effusion and no p neumothorax. No gross bony abnormality seen. No acute aortic findings suspected. IMPRESSION: Mild CHF/ volume overload pattern. Findings are not significantly different from September 19.
[2017-09-28] MEDS ORDERED: FUROSEMIDE 20 MG/ 2ML VIAL ONE (07:50)
--- NOTE | 2017-09-28 09:31 | EKG ---
Test Date: 2017-09-27 Test Time: 23:34:47 Accounts Receivable Executive: JASMINA MEASUREMENT RESULTS: Intervals: Rate: 70 [place]: 154 QRSD: 114 QT: 452 QTc: 488 [place]: P: 76 AZ: 154 QRS: 77 T: 63 INTERPRETIVE STATEMENTS: Normal sinus rhythm Possible Left atrial enlargement Left ventricular hypertrophy Anterior infarct, age undetermined Abnormal ECG Compared to ECG 09/18/2017 14:36:27 Myocardial infarct finding now present Prolonged QT interval no longer present Electronically Signed On 09-28-17 09:30:24 CDT by Jitendra Willams
[2017-09-28] MEDS ORDERED: ACETAMINOPHEN 325 MG TABLET ONE (19:01)
[2017-09-28 19:23] VITALS: TEMP 98
[2017-09-28 19:25] VITALS: O2SAT 98
[2017-09-28 19:27] VITALS: BP 169/82
== END 2017-09-28 19:10 ==
LOC: ER 21:08
DX: R45.851 Suicidal ideations (principal); F33.9 Major depressive disorder, recurrent, unspecified; I11.0 Hypertensive heart disease with heart failure; I50.9 Heart failure, unspecified; J44.9 Chronic obstructive pulmonary disease, unspecified; F17.210 Nicotine dependence, cigarettes, uncomplicated; Z88.8 Allergy status to other drugs, medicaments and biological substances
CPT/HCPCS: 36415; 71045; 80048; 80076; 80307 ×8; 80320; 80329 ×2; 81003; 82550; 82553; 83735; 83880; 84484; 85025; 85610; 85730; 93005; J1940; 96374; 99285

== ENCOUNTER 2017-11-16 06:11 | Observation (INO) | payer OTHER ==
--- OUTSIDE RECORDS SUMMARY | 2017-11-16 06:13 | XMS REPORT ---
:1950 [facility] [address] [place] [address] Dr. Diamond [address] [place] [id number] Care Team Providers Name Role Phone Unavailable Unavailable Unavailable Problems This patient has no known problems. Allergies, Adverse Reactions, Alerts This patient has no known allergies or adverse reactions. Medications This patient has no known medications.
[2017-11-16] MEDS ORDERED: ASPIRIN 81 MG CHEWABLE TABLET ONE (06:37)
[2017-11-16] MEDS ORDERED: METOPROLOL TARTRATE 5 MG/5 ML INJ IV ONE (06:37)
[2017-11-16] MEDS ORDERED: METOPROLOL TAR 50 MG TAB ONE (06:37)
[2017-11-16] MEDS ORDERED: ALBUTEROL 2.5 MG/3 ML NEB SOL ONE (06:48)
[2017-11-16] MEDS ORDERED: IPRATROPIUM BROM 0.5MG/2.5ML ONE (06:48)
[2017-11-16 06:52] LABS: Protime INR 1.39
[2017-11-16 06:56] LABS: Absolute Lymphocytes (CBC) 2.6 K/uL (0.7-4.9); Absolute Neutrophil 5.9 K/uL (1.8-8.0); Basophils % 0.9 % (0-1.3); Eosinophils % 1.7 % (0-4.4); Lymphocytes % 26.8 % (15.3-44.8); MCH 18.1 pg (27.0-35.0); MCV 60.5 fL (80-100); MPV 9.7 fL (7.6-11.3); Monocytes % 10.5 % (3.3-12.3); RBC Red Blood Cell Count 5.62 M/uL (4.33-5.43)
[2017-11-16 07:02] LABS: Albumin 3.6 g/dL (3.4-5.0); Bilirubin Direct 0.2 mg/dL (0-0.2); Bilirubin Total 0.7 mg/dL (0.2-1.0); CKMB Creatine Kinase MB 2.7 ng/mL (0.3-3.6); Magnesium 2.3 mg/dL (1.8-2.4); Potassium 3.9 mmol/L (3.5-5.1); Protein, Total 6.8 g/dL (6.4-8.2); Troponin (Emerg Dept Use Only) 0.06 ng/mL (0.0-0.045)
[2017-11-16] MEDS ORDERED: FUROSEMIDE 40 MG/4 ML VIAL ONE (07:17)
--- NOTE | 2017-11-16 07:52 | ER ---
Nurse's Notes [facility] Name: Mark Terrell Age: 66 yrs Sex: Male : 1950 Arrival Date: 11/16/2017 Time: 06:15 Bed 7 Private MD: Diagnosis: Unspecified combined systolic (congestive) and diastolic (congestive) heart failure;Hypertensive heart disease Presentation: 11/16 06:16 Presenting complaint: Patient states: shortness of breath x 2 hours. Reports he is aa1 supposed to be taking medicine for HTN \T\ COPD but is homeless and has not been taking them. Denies pain. NAD noted. Transition of care: patient was not received from another setting of care. Onset of symptoms was November 16, 2017. Risk Assessment: Do you want to hurt yourself or someone else? Patient reports no desire to harm self or others. Initial Sepsis Screen: Does the patient meet any 2 criteria? RR > 20 per min. Does the patient have a suspected source of infection? No. Patient's initial sepsis screen is negative. Care prior to arrival: IV initiated. 20 GA, in the right antecubital area. 06:16 Method Of Arrival: EMS: [facility] aa1 06:16 Acuity: ARIEL 3 aa1 Historical: - Allergies: 06:28 Benadryl; aa1 - Home Meds: 06:28 None [Active]; aa1 - PMHx: 06:28 Aneurysm; BRAIN; Atrial Fib; Cancer; PROSTATE; CHF; COPD; Hypertension; Prostate Cancer;aa1 - PSHx: 06:28 brain aneurysm clip; Heart stents; aa1 - Immunization history:: Pneumococcal vaccine is up to date, Flu vaccine is up to date. - Social history:: Smoking status: Patient uses tobacco products, smokes one-half pack cigarettes per day. - Ebola Screening: : Patient denies exposure to infectious person Patient denies travel to an Ebola-affected area in the 21 days before illness onset. Screenin:28 Abuse screen: Denies threats or abuse. Denies injuries from another. Nutritional aa1 screening: No deficits noted. Tuberculosis screening: No symptoms or risk factors identified. Fall Risk None identified. Assessment: 06:28 General: Appears in no apparent distress. comfortable, unkempt, Behavior is calm, aa1 cooperative, appropriate for age. Pain: Denies pain. Neuro: Level of Consciousness is awake, alert, obeys commands, Oriented to person, place, time, situation, Moves all extremities. Full function. Cardiovascular: Heart tones S1 S2 present Rhythm is regular. Respiratory: Reports shortness of breath at rest Airway is patent Respiratory effort is even, unlabored, Respiratory pattern is regular, symmetrical, Breath sounds are coarse bilaterally. GI: No signs and/or symptoms were reported involving the gastrointestinal system. : No signs and/or symptoms were reported regarding the genitourinary system. EENT: No signs and/or symptoms were reported regarding the EENT system. Derm: Skin is intact, is healthy with good turgor, Skin is pink, warm \T\ dry. Musculoskeletal: Circulation, motion, and sensation intact. Capillary refill < 3 seconds. 07:00 General: Appears in no apparent distress. uncomfortable, Behavior is calm, cooperative, jl7 appropriate for age. Pain: Denies pain. Neuro: Level of Consciousness is awake, alert, obeys commands, Oriented to person, place, time, situation. Cardiovascular: Heart tones S1 S2 present Rhythm is sinus rhythm. Respiratory: Reports shortness of breath at rest Airway is patent Respiratory effort is even, labored, Respiratory pattern is symmetrical, tachypnea Breath sounds are diminished. Derm: Skin is pink, warm \T\ dry. 08:12 Reassessment: Patient and/or family updated on plan of care and expected duration. Pain jl7 level reassessed. Patient is alert, oriented x 3, equal unlabored respirations, skin warm/dry/pink. Patient states feeling better. 09:07 Reassessment: Pt finished eating, is laying in bed with eyes closed, respirations even jl7 and unlabored, no signs of distress noted at this time. Vital Signs: 06:16 BP 189 / 120; Pulse 85; Resp 24; Temp 97.6; Pulse Ox 98% on R/A; Weight 77.11 kg; aa1 Height 5 ft. 11 in. (180.34 cm); Pain 0/10; 06:51 BP 166 / 109; Pulse 62; Resp 18; Pulse Ox 100% on Nebulizer Mask; aa1 07:18 BP 158 / 103; Pulse 63; Resp 24 S; Pulse Ox 97% on R/A; jl7 08:11 BP 148 / 94; Pulse 60; Resp 26 S; Pulse Ox 100% on R/A; jl7 09:06 BP 130 / 68; Pulse 64; Resp 20 S; Pulse Ox 95% on R/A; jl7 06:16 Body Mass Index 23.71 (77.11 kg, 180.34 cm) aa1 ED Course: 06:15 Patient arrived in ED. aa1 06:16 Arm band placed on right wrist. aa1 06:18 Triage completed. aa1 06:22 Satish Michel PA is PHCP. cp 06:22 Mike Yoo MD is Attending Physician. cp 06:28 Patient has correct armband on for positive identification. Bed in low position. Call aa1 light in reach. Pulse ox on. NIBP on. 06:28 Maintain EMS IV. Dressing intact. Site clean \T\ dry. Gauge \T\ site: 20g RAC. aa 1 06:43 X-ray completed. Portable x-ray completed in exam room. Patient tolerated procedure mh1 well. 06:46 XRAY Chest (1 view) In Process Unspecified. EDMS 06:49 Initial lab(s) drawn, by ED staff, sent to lab. EKG done, by ED staff, reviewed by aa1 Mike Yoo MD. 07:09 Yaneth Bell, LASHAY is Primary Nurse. jl7 07:50 Bibi De León MD is Hospitalizing Provider. cp 08:12 Diet tray given. jl7 08:49 Urine Dipstick--Ancillary (enter results) Sent. jl7 09:27 Warm blanket given. mb4 09:43 No provider procedures requiring assistance completed. Patient admitted, IV remains in jl7 place. intact, No redness/swelling at site. Administered Medications: 06:39 Drug: Metoprolol 5 mg Route: IVP; Site: right antecubital; ea 07:00 Follow up: Response: Blood pressure is lowered jl7 06:39 Drug: Metoprolol 50 mg Route: PO; ea 07:20 Follow up: Response: No adverse reaction jl7 06:40 Drug: Aspirin Chewable Tablet 324 mg Route: PO; ea 07:18 Follow up: Response: No adverse reaction jl7 06:46 Drug: Albuterol 2.5 mg Route: Inhalation; ea 07:00 Follow up: Response: No adverse reaction jl7 06:46 Drug: AtroVENT Aerosol 0.5 mg Route: Inhalation; ea 07:20 Follow up: Response: No adverse reaction jl7 07:17 Drug: Lasix 40 mg Route: IVP; Site: right antecubital; jl7 08:10 Follow up: Urine output 400 ml; Response: No adverse reaction jl7 Output: 08:10 Urine: 400ml; Total: 400ml. jl7 Outcome: 07:51 Decision to Hospitalize by Provider. cp 09:43 Admitted to Tele accompanied by tech, via wheelchair, room 405, with chart, Report jl7 called to LASHAY Oneill 09:43 Condition: stable 09:43 Discharge instructions given to patient, Instructed on the need for admit, Demonstrated understanding of instructions. 09:49 Patient left the ED. jl7 Signatures: Dispatcher [employer] EDMarian Byrne RN RN aa1 Roseann Aguirre mh1 Satish Michel PA PA cp Leal, Jahala, RN RN jl7 Ana Camacho RN RN ea Baxter, Mackenzie 4
--- NOTE | 2017-11-16 07:52 | EDPHYS ---
Physician Documentation [facility] Name: Mark Terrell Age: 66 yrs Sex: Male : 1950 Arrival Date: 11/16/2017 Time: 06:15 Bed 7 Private MD: ED Physician Mike Yoo HPI: 11/16 06:25 This 66 yrs old Male presents to ER via EMS with complaints of Shortness Of cp Breath. 06:25 The patient has shortness of breath at rest. Associated signs and symptoms: Pertinent cp positives: chest pain, palpitations, Pertinent negatives: productive cough, diaphoresis, fever. Severity of symptoms: in the emergency department the symptoms are unchanged despite home interventions. 06:25 Onset: The symptoms/episode began/occurred this morning, 2 hour(s) ago. Duration: The cp symptoms are continuous, and are steadily getting worse. The patient has experienced similar episodes in the past, chronically. Patient reports he has been off prescribed meds for COPD, HTN and CHF. Historical: - Allergies: 06:28 Benadryl; aa1 - Home Meds: 06:28 None [Active]; aa1 - PMHx: 06:28 Aneurysm; BRAIN; Atrial Fib; Cancer; PROSTATE; CHF; COPD; Hypertension; Prostate Cancer;aa1 - PSHx: 06:28 brain aneurysm clip; Heart stents; aa1 - Immunization history:: Pneumococcal vaccine is up to date, Flu vaccine is up to date. - Social history:: Smoking status: Patient uses tobacco products, smokes one-half pack cigarettes per day. - Ebola Screening: : Patient denies exposure to infectious person Patient denies travel to an Ebola-affected area in the 21 days before illness onset. ROS: 06:30 Constitutional: Negative for body aches, chills, fever, poor PO intake. cp 06:30 Eyes: Negative for injury, pain, redness, and discharge. cp 06:30 ENT: Negative for drainage from ear(s), ear pain, sore throat, difficulty swallowing, difficulty handling secretions. 06:30 Cardiovascular: Positive for chest pain, palpitations, Negative for edema. 06:30 Respiratory: Positive for shortness of breath, at rest. Negative for cough, hemoptysis, wheezing. 06:30 Abdomen/GI: Negative for abdominal pain, nausea, vomiting, and diarrhea, constipation, anorexia. 06:30 Back: Negative for pain at rest, pain with movement, radiated pain. 06:30 : Negative for urinary symptoms. 06:30 Skin: Negative for cellulitis, rash. 06:30 Neuro: Negative for altered mental status, headache, weakness. 06:30 All other systems are negative. Exam: 06:33 Constitutional: The patient appears in no acute distress, alert, awake, cp non-diaphoretic, non-toxic, well developed, well nourished, unkempt. 06:33 Head/Face: Normocephalic, atraumatic. Eyes: Pupils equal round and reactive to light, cp extra-ocular motions intact. Lids and lashes normal. Conjunctiva and sclera are non-icteric and not injected. Cornea within normal limits. Periorbital areas with no swelling, redness, or edema. ENT: Nares patent. No nasal discharge, no septal abnormalities noted. Tympanic membranes are normal and external auditory canals are clear. Oropharynx with no redness, swelling, or masses, exudates, or evidence of obstruction, uvula midline. Mucous membranes moist. Neck: Trachea midline, no thyromegaly or masses palpated, and no cervical lymphadenopathy. Supple, full range of motion without nuchal rigidity, or vertebral point tenderness. No Meningismus. Chest/axilla: Normal chest wall appearance and motion. Nontender with no deformity. No lesions are appreciated. 06:33 Cardiovascular: Rate: normal, Rhythm: regular, Pulses: Pulses are 2+ in right radial artery and left radial artery. Edema: ankle edema, that is very mild, JVD: is not appreciated. 06:33 Respiratory: mild respiratory distress is noted, Respirations: labored breathing, that is mild, intercostal retractions, are absent, splinting, is not noted, tachypnea, that is mild, Breath sounds: decreased breath sounds, that are mild, throughout, stridor, is not appreciated, wheezing: that is mild, is heard diffusely. 06:33 Abdomen/GI: Inspection: abdomen appears normal, Bowel sounds: active, all quadrants, Palpation: abdomen is soft and non-tender, in all quadrants, voluntary guarding, is not appreciated, involuntary guarding, is not appreciated. 06:33 Back: pain, is absent, ROM is normal. 06:33 Skin: cellulitis, is not appreciated, no rash present. 06:33 Neuro: Orientation: to person, place \T\ time. Mentation: lucid, able to follow commands, Cerebellar function: is grossly normal, Motor: moves all fours, strength is normal, Sensation: no obvious gross deficits. 06:51 ECG was reviewed by the Attending Physician. Vital Signs: 06:16 BP 189 / 120; Pulse 85; Resp 24; Temp 97.6; Pulse Ox 98% on R/A; Weight 77.11 kg; aa1 Height 5 ft. 11 in. (180.34 cm); Pain 0/10; 06:51 BP 166 / 109; Pulse 62; Resp 18; Pulse Ox 100% on Nebulizer Mask; aa1 07:18 BP 158 / 103; Pulse 63; Resp 24 S; Pulse Ox 97% on R/A; jl7 08:11 BP 148 / 94; Pulse 60; Resp 26 S; Pulse Ox 100% on R/A; jl7 09:06 BP 130 / 68; Pulse 64; Resp 20 S; Pulse Ox 95% on R/A; jl7 06:16 Body Mass Index 23.71 (77.11 kg, 180.34 cm) aa1 MDM: 06:27 Patient medically screened. cp 07:00 Differential diagnosis: CHF exacerbation, Chronic Obstructive Pulmonary Disease cp Myocardial Infarction pneumonia, pulmonary edema, Unstable Angina. 07:05 Data reviewed: vital signs, nurses notes, lab test result(s), EKG, radiologic studies, cp plain films. 07:05 Test interpretation: by ED physician or midlevel provider: ECG, plain radiologic cp studies. 07:50 Physician consultation: Bibi De León MD was called at 07:50, was contacted at 07:50, regarding admission, to the telemetry unit. patient's condition. 11/16 06:23 Order name: Basic Metabolic Panel; Complete Time: 07:04 cp 11/16 07:04 Interpretation: Normal except: GLUC 130; BUN 19; CRE 1.40; GFR 51. cp 11/16 06:23 Order name: CBC with Diff cp 11/16 06:23 Order name: Ckmb; Complete Time: 07:04 cp 11/16 06:23 Order name: CPK; Complete Time: 07:04 cp 11/16 06:23 Order name: LFT's; Complete Time: 07:04 cp 11/16 06:23 Order name: Magnesium; Complete Time: 07:04 cp 11/16 06:23 Order name: NT PRO-BNP; Complete Time: 07:04 cp 11/16 06:23 Order name: PT-INR; Complete Time: 06:55 cp 11/16 06:56 Interpretation: Abnormal: PT 16.4. cp 11/16 06:23 Order name: Ptt, Activated; Complete Time: 06:55 cp 11/16 06:56 Interpretation: PTT 32.3; Reviewed. cp 11/16 06:23 Order name: Troponin (emerg Dept Use Only); Complete Time: 07:04 cp 11/16 06:23 Order name: XRAY Chest (1 view); Complete Time: 09:16 cp 11/16 07:45 Order name: CBC Smear Scan EDMS 11/16 08:31 Order name: Urine Dipstick--Ancillary (enter results) ag 11/16 06:23 Order name: EKG; Complete Time: 06:23 cp 11/16 06:23 Order name: Cardiac monitoring; Complete Time: 06:37 cp 11/16 06:23 Order name: EKG - Nurse/Tech; Complete Time: 06:46 cp 11/16 06:23 Order name: IV Saline Lock; Complete Time: 06:37 cp 11/16 06:23 Order name: Labs collected and sent; Complete Time: 06:47 cp 11/16 06:23 Order name: O2 Per Protocol; Complete Time: 06:37 cp 11/16 06:23 Order name: O2 Sat Monitoring; Complete Time: 06:37 cp 11/16 06:23 Order name: Urine Dipstick-Ancillary (obtain specimen); Complete Time: 08:19 cp EC:51 Rate is 60 beats/min. Rhythm is regular. AL interval is normal. QRS interval is cp prolonged at 114 msec. QT interval is prolonged at 476 msec. Interpreted by me. Reviewed by me. Administered Medications: 06:39 Drug: Metoprolol 5 mg Route: IVP; Site: right antecubital; ea 07:00 Follow up: Response: Blood pressure is lowered jl7 06:39 Drug: Metoprolol 50 mg Route: PO; ea 07:20 Follow up: Response: No adverse reaction jl7 06:40 Drug: Aspirin Chewable Tablet 324 mg Route: PO; ea 07:18 Follow up: Response: No adverse reaction jl7 06:46 Drug: Albuterol 2.5 mg Route: Inhalation; ea 07:00 Follow up: Response: No adverse reaction jl7 06:46 Drug: AtroVENT Aerosol 0.5 mg Route: Inhalation; ea 07:20 Follow up: Response: No adverse reaction 07:17 Drug: Lasix 40 mg Route: IVP; Site: right antecubital; jl7 08:10 Follow up: Urine output 400 ml; Response: No adverse reaction jl7 Disposition: 11/16/17 07:51 Hospitalization ordered by Bibi De León for Observation. Preliminary diagnosis are Unspecified combined systolic (congestive) and diastolic (congestive) heart failure, Hypertensive heart disease. - Bed requested for Telemetry/MedSurg (observation). - Status is Observation. jl7 - Condition is Stable. - Problem is an acute exacerbation. - Symptoms have improved. UTI on Admission? No Signatures: Dispatcher [employer] EDMS Jeri Ospina RN RN dw Kern, Alissa, RN RN aa1 Satish Michel PA PA cp Leal, Jahala, RN RN jl7 Ana Camacho RN RN ea Corrections: (The following items were deleted from the chart) 08:49 07:51 Hospitalization Ordered by Bibi De León MD for Observation. Preliminary diagnosis dw is Unspecified combined systolic (congestive) and diastolic (congestive) heart failure; Hypertensive heart disease. Bed requested for Telemetry/MedSurg (observation). Status is Observation. Condition is Stable. Problem is an acute exacerbation. Symptoms have improved. UTI on Admission? No. cp 09:49 08:49 11/16/2017 07:51 Hospitalization Ordered by Bibi De León MD for Observation. jl7 Preliminary diagnosis is Unspecified combined systolic (congestive) and diastolic (congestive) heart failure; Hypertensive heart disease. Bed requested for Telemetry/MedSurg (observation). Status is Observation. Condition is Stable. Problem is an acute exacerbation. Symptoms have improved. UTI on Admission? No. dw
[2017-11-16] MEDS ORDERED: MORPHINE 4 MG/ML SYR IV PRN (08:28)
[2017-11-16] MEDS ORDERED: NITROGLYCERIN 0.4 MG/TAB SL PRN (08:28)
[2017-11-16] MEDS ORDERED: HYDRALAZINE HCL 20 MG/ML VIAL IV PRN (08:35)
--- NOTE | 2017-11-16 08:37 | RAD REPORT ---
EXAM DESCRIPTION: RAD - Chest Single View - 11/16/2017 6:47 am CLINICAL HISTORY: Shortness of breath COMPARISON: September 27 TECHNIQUE: AP portable chest image was obtained 0633 hours . FINDINGS: Interstitial markings are prominent. No mass or consolidation. Lung parenchymal pattern is not substantially different. A few granulomas are present. Cardiomegaly is present similar to the pr ior study. There is mild vascular engorgement. No measurable pleural effusion and no pneumothorax. No gross bony abnormality seen. No acute aortic findings suspected. IMPRESSION: Chest findings are not substantially different from the prior study but do suggest a mil d failure or volume overload.
[2017-11-16] MEDS ORDERED: ENOXAPARIN 100 MG/ML SYR SQ SCH (09:00)
[2017-11-16 10:26] VITALS: BMI 22.7
[2017-11-16] MEDS: METOPROLOL TAR 50 MG TAB PO SCH ×2 (11:17→20:15)
[2017-11-16] MEDS: ASPIRIN EC 81 MG TAB PO SCH (11:18)
[2017-11-16] MEDS: LISINOPRIL 10 MG TAB PO SCH (11:18)
[2017-11-16 13:43] LABS: Anisocytosis 2+; Blood Morphology Comment NOTED (NOT SEEN); Hypochromasia 2+; Platelet Estimate ADEQ; Urine White Blood Cell Casts OK
[2017-11-16 14:55] LABS: Urine Blood NEGATIVE (NEG); Urine Glucose NEGATIVE (NEG); Urine Protein 2+ (NEG)
[2017-11-16] MEDS ORDERED: ALBUTEROL 2.5 MG/3 ML NEB SOL NEB PRN (16:17)
[2017-11-16] MEDS: FUROSEMIDE 40 MG TABLET PO SCH (16:54)
[2017-11-16] MEDS ORDERED: POTASSIUM 25 MEQ EFFERV TAB PO ONE (18:00)
[2017-11-16] MEDS: ACETAMINOPHEN 500 MG TAB PO PRN (20:16)
[2017-11-16] MEDS ORDERED: ATORVASTATIN 40 MG TAB PO SCH (21:00)
[2017-11-16] MEDS ORDERED: FUROSEMIDE 40 MG TABLET PO SCH (21:00)
--- NOTE | 2017-11-16 22:59 | HP ---
Date of Admission: 11/16/2017 Code Status: Do not resuscitate. Chief Complaint: Chest pain, shortness of breath. Consultants: Cardiology, Dr. Porter. Please see addendum for further details /MARY ANN Voice ID: [id number] MTDD
--- NOTE | 2017-11-16 23:33 | HP ---
Date of Admission: 11/16/2017 Addendum: Chief Complaint: Chest pain. Code Status: Do not resuscitate. History Of Present Illness: The patient is a 66-year-old male with past medical history of congestiv e heart failure, coronary artery disease with recent heart catheterization on 07/09/2017 who is nonco mpliant, history of prostate cancer, history of brain aneurysm requiring surgery, COPD, high choleste rol, GERD, anemia comes in with similar complaints as previous. The patient was last seen on 018 with similar symptoms of heart failure. 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 He comes in with chest pain, BNP 78945, t roponin 0.06. No changes from previous edema on his chest x-ray. The patient's symptoms are constan t, moderate, progressively worsening. The patient says that he was recently in [place], spent a mon in the psychiatric hospital as he was suicidal and he was [facility] due to chest pain and a month later he was back in town. The patient has had almost monthly admissions o ther than for the past month due to being in [place] for similar issue. His overall situation is so cial. He needs permanent placement. Social workers have been engaged previously. He needs to eithe r go with [facility] funding versus the [employer] locally. When seen in the ER, he was awake, alert, or iented x3, complaining of some shortness of breath and chest tightness. Past Medical History: Prostate cancer, hypertension, history of brain aneurysm requiring surgery, sy stolic CHF, COPD, nicotine dependence, noncompliance, coronary artery disease with stents x3 to LAD a nd RCA in February 2016, heart catheterization in 07/09/2017, angioplasty, diabetes mellitus type 2, GE RD, anemia, hyperlipidemia, prostate surgery, brain aneurysm surgery, toe surgery of the right great toe during his childhood. Medications: List reviewed. Only taking Lasix. Allergies: TO BENADRYL, CAUSES HIVES. Family History: Father had brain cancer. Mother had pancreatic cancer. Brother had lung cancer. Social History: The patient smokes every day. No drinking or illicit drug use. The patient is home less, retired . Review of Systems: Ten-point system reviewed, negative except as per HPI. Physical Examination: Vital Signs: Temperature 99.2, heart rate 63, blood pressure 163/97, respirations 18, O2 96% on 2 L. General: Awake, alert, oriented x3. Some mild distress, appears older than stated age male. HEENT: Normocephalic, atraumatic. PERRLA. EOMI. Moist mucous membranes. Poor dentition. Orophar ynx clear. Conjunctivae anicteric. Neck: Supple. No JVD. Trachea midline. CV: S1, S2. No murmurs. Peripheral pulses present. Respiratory: Diminished breath sounds. No aircraft mechanic armament ckles are heard. No wheezing. Gastrointestinal: Abdomen is soft, nontender, nondistended. Positive bowel sounds. No guarding or rigidity. Extremities: No clubbing, cyanosis, pedal edema. Neuro: Cranial nerves 2 through 12 intact grossly. No focal neurological deficit. Speech is normal . Strength is 5/5 bilateral upper and lower extremities. Skin: No rashes. The patient does have some mild abrasions on his lower extremities. Psych: Mood is depressed. Affect is congruent with mood. Insight and judgment are fair. Imaging Studies: Chest x-ray shows mild failure of volume overload. Laboratory Data: Sodium 140, potassium 3.9, chloride 107, CO2 26, BUN 19, creatinine 1.4, glucose 13 0, calcium 9, magnesium 2.3, troponin 0.06. BNP 67765, INR 1.39. WBC 9.8, H and H 10.2-34, platelet s 189. UA pending. EKG shows some T-wave inversion in V5, V6 which is new from comparison. Assessment: A 66-year-old male with: 1.Chest pain, possible non-ST elevation myocardial infarction. Cardiac troponin is elevated. We wi ll repeat cardiac enzymes and EKG. Cardiology consultation. The patient had a recent echocardiogram . We will start on chest pain guidelines, aspirin, statin, beta-vlad, PAWEL inhibitor and therapeut ic Lovenox. 2.Acute on chronic systolic congestive heart failure. Continue IV diuresis, chest pain and congesti ve heart failure guidelines with beta-vlad, and PAWEL inhibitors. 3.Chronic obstructive pulmonary disease, chronic bronchitis. Continue albuterol p.r.n. 4.Nicotine dependence with cigarette smoking. Counseled. 5.Accelerated hypertension, poorly controlled due to noncompliance. We will add home medications an d p.r.n. medications. 6.History of prostate cancer. 7.Noncompliance. Counseled. 8.Coronary artery disease, status post stent x3. 9.Gastroesophageal reflux disease. Continue PPI. 10.Anemia, normocytic normochromic. Monitor H and H. 11.Hyperlipidemia. Continue statin. Plan: Admit the patient to Med-Surg, place on the observation. Case Management and social workers t o work on permanent placement. The patient remains high risk for readmission for similar symptoms. SCOTTY Voice ID: [id number]
[2017-11-17] MEDS: ACETAMINOPHEN 500 MG TAB PO PRN (00:42)
--- NOTE | 2017-11-17 06:53 | EKG ---
Test Date: 2017-11-16 Test Time: 06:43:25 Area Representative: LUCIUS MEASUREMENT RESULTS: Intervals: Rate: 60 DE: 156 QRSD: 114 QT: 476 QTc: 476 [place]: P: 67 DE: 156 QRS: 75 T: 88 INTERPRETIVE STATEMENTS: Normal sinus rhythm Possible Left atrial enlargement Left ventricular hypertrophy Nonspecific ST and T wave abnormality Prolonged QT Abnormal ECG Compared to ECG 09/27/2017 23:34:47 ST (T wave) deviation now present Prolonged QT interval now present Myocardial infarct finding no longer present Electronically Signed On 11-17-17 06:51:16 CDT by Cyrus Porter
[2017-11-17 07:10] LABS: Potassium 3.8 mmol/L (3.5-5.1)
[2017-11-17 07:16] LABS: Absolute Lymphocytes (CBC) 3.1 K/uL (0.7-4.9); Absolute Neutrophil 3.7 K/uL (1.8-8.0); Basophils % 0.8 % (0-1.3); Eosinophils % 3.3 % (0-4.4); Hematocrit 34.5 % (39.6-49.0); Lymphocytes % 38.1 % (15.3-44.8); MCH 18.3 pg (27.0-35.0); MPV 9.4 fL (7.6-11.3); Monocytes % 12.3 % (3.3-12.3); RBC Red Blood Cell Count 5.75 M/uL (4.33-5.43)
[2017-11-17 08:07] LABS: Anisocytosis 1+; Blood Morphology Comment NOTED (NOT SEEN); Hypochromasia 2+; Platelet Estimate ADEQ; Poikilocytosis 2+; Teardrop Cell FEW; Urine White Blood Cell Casts OK
[2017-11-17] MEDS ORDERED: ENOXAPARIN 80 MG/0.8 ML SQ SCH (09:00)
[2017-11-17] MEDS ORDERED: ASPIRIN EC 81 MG TAB PO SCH (09:00)
[2017-11-17] MEDS ORDERED: CLOPIDOGREL 75 MG TABLET PO SCH (09:00)
[2017-11-17] MEDS: LISINOPRIL 10 MG TAB PO SCH (09:59)
[2017-11-17] MEDS: FUROSEMIDE 40 MG TABLET PO SCH (09:59)
[2017-11-17] MEDS: METOPROLOL TAR 50 MG TAB PO SCH (09:59)
[2017-11-17] MEDS: ASPIRIN EC 81 MG TAB PO SCH (09:59)
[2017-11-17 11:16] VITALS: O2SAT 97
--- NOTE | 2017-11-17 12:31 | CON ---
Date of Consultation: 11/16/2017 Reason For Consultation: Chest pain. History Of Present Illness: Mr. Terrell is a 66-year-old white male, who has recurrent hospital adm issions because he has no home. He lives in the [facility]. He has coronary artery disease, status post angioplasty of RCA in July 2017. At that time, he had a patent circumflex. He had an LAD stent that was normal. He had some diffuse distal disease. He came in with a chest x-ray showing mild CHF. He has a normal rhythm now. He had an ejection fraction of 30% to 35% in July of 2017. He has a histor y of brain aneurysm, intermittent atrial fibrillation, CHF, COPD, hypertension, and prostate cancer. He is chest pain free now. His chest pain was sharp, stabbing, radiating to the back, worse with br eathing. His main complaint was really shortness of breath. His troponin was 0.06, BNP was 18,788, hemoglobin 10.2. His creatinine was 1.4. He was very hypertensive when he came in at 170/103. Allergies: HE IS ALLERGIC TO BENADRYL. Review of Systems: Negative. Social History: As stated earlier. Continues to smoke, drink. Lives in the [facility]. Medications: Include aspirin, Plavix, Lopressor, Lasix, and nitroglycerin as needed, but he does not take any of his medicine except for occasional Lasix, which helps him sleep. Physical Examination: General: Today, he was in no acute distress. Vital Signs: Stable. Afebrile. HEENT: Negative. Neck: Supple with no bruit. Chest: Revealed some rales at the bases. Cardiac exam: Revealed a regular rhythm and rate. No murmurs, gallops, or rubs. Abdomen: Benign. Extremities: Revealed trace edema. Diagnostic Data: As stated earlier. Impression And Plan: Acute exacerbation of chronic systolic congestive heart failure. Mr. Terrell' s main issue again is a social issue. He needs placement, and it is actually unbelievable that this has not been arranged for him yet. He should be able to do this through director of social services, through the [facility], through other agencies in [place]. Medications are appropriate. He should continue the bet a blockers, Lasix, aspirin, Plavix as well as nitroglycerin p.r.n. He should be on an PAWEL inhibitor. I am not so sure if he will take any of these stuff. I am not so sure he can afford it. His other issues include chronic anemia, chronic renal insufficiency, hypertension that is poorly controlled, chronic obstructive pulmonary disease, atrial fibrillation that has resolved, and a brain aneurysm is beverly that has resolved. His BNP elevation and troponin elevation are secondary to congestive heart fa ilure. No need to repeat any workup at this point. I discussed this case with Dr. De León. ZHEN/MARY ANN Voice ID: [id number] Report ID: [id number]
[2017-11-17 12:35] VITALS: BP 152/92; TEMP 97.5
--- NOTE | 2017-11-18 11:34 | DS ---
Date of Discharge: 11/17/2017 Discharge Diagnoses: 1.Chest pain, acute coronary syndrome ruled out. 2.Elevated troponin level secondary to uncontrolled blood pressure and congestive heart failure. 3.Eukas-bu-fliyekn systolic congestive heart failure exacerbation, improved. 4.Coronary artery disease, habematolel artery and habematolel heart without angina. 5.Chronic obstructive pulmonary disease, chronic bronchitis. 6.Chronic kidney disease stage 3. 7.History of brain aneurysm. 8.Gastroesophageal reflux disease without esophagitis. 9.History of prostate cancer. 10.Mixed hyperlipidemia. 11.Essential hypertension, uncontrolled. 12.Nicotine dependence with cigarette smoking and complicated, counseled. 13.Noncompliance. Hospital Course: The patient is a 66-year-old male with multiple readmissions to the hospital for si milar issues of noncompliance, shortness of breath due to CHF, and at this time, comes in with uncont rolled blood pressure and had some mild troponin leak, not thought to have ACS. The patient had rece nt heart cath in July, spoke with Dr. Porter, Cardiology, no further intervention from his standpoint . The patient's pain improved. His troponin trended down. He was diuresed with Lasix. He was coun seled regarding his cigarette smoking and regarding his placement, he was recommended to go to [facility]; however, he does not wish to go there. Unfortunately for him, there are no other options. He does not have any friends. Family vergara, he has 1 sister in [place] and 1 sister close by in [place]; however, since he is adopted, he states that she does not consider him any family membe r. The patient informed that currently he does not have resources. The patient is at high risk for readmission for similar symptoms. He has his blood pressure medications, however, does not take them , only takes his Lasix, which helps him breathe better. The patient was then discharged in a fair co ndition. Activity: As tolerated. Medications: As per medication reconciliation list. Followup: Follow up with PCP at the [facility], to the Cardiology in 2 weeks. Diet: Low-sodium, fluid-restricted diet. Physical Examination: General: Awake, alert, oriented x3. No acute distress. CV: S1, S2. No murmurs. Respiratory: Moving air well bilaterally. Abdomen: Soft, nontender, nondistended. Positive bowel sounds. Extremities: No clubbing, cyanosis, edema. Neuro: Nonfocal. SA/MODL Voice ID: [id number] Report ID: [id number]
== END 2017-11-17 12:12 | disposition home or self-care (01) ==
LOC: ER 06:11 → ERHOLD 08:02 → 4TH 09:43
PROVIDERS: ADMIT Family Medicine; ATTEND Family Medicine
DX: I13.0 Hypertensive heart and chronic kidney disease with heart failure and stage 1 through stage 4 chronic kidney disease, or unspecified chronic kidney disease (principal); N18.3 Chronic kidney disease, stage 3 (moderate); I50.23 Acute on chronic systolic (congestive) heart failure; I25.10 Atherosclerotic heart disease of native coronary artery without angina pectoris; J44.9 Chronic obstructive pulmonary disease, unspecified; K21.9 Gastro-esophageal reflux disease without esophagitis; E78.2 Mixed hyperlipidemia; F17.210 Nicotine dependence, cigarettes, uncomplicated; Z91.19 Patient's noncompliance with other medical treatment and regimen; Z85.46 Personal history of malignant neoplasm of prostate; Z66 Do not resuscitate
CPT/HCPCS: 36415; 71045; 80048 ×2; 80076; 81003; 82550; 82553; 83735; 83880; 84484 ×3; 85025 ×2; 85610; 85730; 93005; 94640; 94760 ×3; 96374; 96375; 99285; G0378 ×2; J0360; J1650 ×2

== ENCOUNTER 2017-11-24 00:43 | Emergency (ER) | payer OTHER ==
[2017-11-24] MEDS ORDERED: IPRATROPIUM BROM 0.5MG/2.5ML ONE (01:05)
[2017-11-24] MEDS ORDERED: METHYLPREDNISOLONE 125 MG INJ ONE (01:05)
[2017-11-24] MEDS ORDERED: LEVALBUTEROL 1.25 MG/3 ML NEB ONE (01:06)
[2017-11-24] MEDS ORDERED: MAGNESIUM SULFATE 1 gm IVPB 1 GM/100 ML BAG IV ONE (01:06)
[2017-11-24] MEDS ORDERED: NA CHLORIDE 0.9% 1,000 ML ONE (01:06)
[2017-11-24] MEDS ORDERED: ACETAMINOPHEN 325 MG TABLET ONE (01:31)
--- NOTE | 2017-11-24 02:24 | EDPHYS ---
Physician Documentation [facility] Name: Mark Terrell Age: 66 yrs Sex: Male : 1950 Arrival Date: 11/24/2017 Time: 00:44 Bed 5 Private MD: ED Physician Ryan Vasquez HPI: 11/24 02:17 This 66 yrs old Male presents to ER via EMS with complaints of Shortness Of rn Breath. 02:17 The patient has shortness of breath at rest, with light activity. Onset: The rn symptoms/episode began/occurred yesterday. Duration: The symptoms are continuous. The patient's shortness of breath is aggravated by light activity, talking, walking. Severity of symptoms: At their worst the symptoms were mild in the emergency department the symptoms are unchanged. The patient has experienced similar episodes in the past. The patient has not recently seen a physician. REports sob, got worse again yesterday, no fever, no new cough, + sob when walking and talking. . Historical: - Allergies: 00:51 Benadryl; lp1 - Home Meds: 00:51 None [Active]; lp1 - PMHx: 00:51 Aneurysm; BRAIN; Atrial Fib; Cancer; PROSTATE; CHF; COPD; Hypertension; Prostate Cancer;lp1 - PSHx: 00:51 Prostatectomy; cardiac stent x3; Brain aneurysm clip; lp1 - Immunization history:: Adult Immunizations unknown. - Social history:: Smoking status: Patient uses tobacco products, smokes one-half pack cigarettes per day. - Ebola Screening: : No symptoms or risks identified at this time. - Family history:: not pertinent. - Hospitalizations: : No recent hospitalization is reported. ROS: 02:17 Constitutional: Negative for fever, chills, and weight loss, Eyes: Negative for injury, rn pain, redness, and discharge, Neck: Negative for injury, pain, and swelling, Cardiovascular: Negative for palpitations, and edema, Respiratory: Negative for pleuritic chest pain, Abdomen/GI: Negative for abdominal pain, nausea, vomiting, diarrhea, and constipation, MS/Extremity: Negative for injury and deformity, Skin: Negative for injury, rash, and discoloration, Neuro: Negative for headache, weakness, numbness, tingling, and seizure. Exam: 02:17 Constitutional: This is a well developed, well nourished patient who is awake, alert, rn and in no acute distress. Head/Face: Normocephalic, atraumatic. Eyes: Pupils equal round and reactive to light, extra-ocular motions intact. Lids and lashes normal. Conjunctiva and sclera are non-icteric and not injected. Cornea within normal limits. Periorbital areas with no swelling, redness, or edema. Cardiovascular: Regular rate no murmurs, or rubs. No pulse deficits. Respiratory: faint bilateral wheezing, no crackles, no retractions, mild tachypnea Abdomen/GI: Soft, non-tender, with normal bowel sounds. No distension or tympany. No guarding or rebound. No evidence of tenderness throughout. Skin: Warm, dry, no evidence of cellulitis. MS/ Extremity: Pulses equal, no cyanosis. Neurovascular intact. Full, normal range of motion. Equal circumference. Neuro: Awake and alert, GCS 15, oriented to person, place, time, and situation. Cranial nerves II-XII grossly intact. Motor strength 5/5 in all extremities. Sensory grossly intact. Cerebellar exam normal. Normal gait. Vital Signs: 00:51 BP 157 / 107; Pulse 91; Resp 18; Pulse Ox 96% on R/A; Weight 85.73 kg; Height 5 ft. 11 lp1 in. (180.34 cm); 00:51 Body Mass Index 26.36 (85.73 kg, 180.34 cm) lp1 MDM: 00:44 Patient medically screened. rn 02:20 Differential diagnosis: asthma, Bronchitis CHF exacerbation, Chronic Obstructive rn Pulmonary Disease Myocardial Infarction pneumonia, Pneumothorax pulmonary edema. Data reviewed: vital signs, nurses notes, lab test result(s), radiologic studies, plain films, and as a result, I will discharge patient. Counseling: I had a detailed discussion with the patient and/or guardian regarding: the historical points, exam findings, and any diagnostic results supporting the discharge/admit diagnosis, lab results, radiology results, the need for outpatient follow up, to return to the emergency department if symptoms worsen or persist or if there are any questions or concerns that arise at home. Response to treatment: the patient's symptoms have markedly improved after treatment, and as a result, I will discharge patient. Special discussion: I discussed with the patient/guardian in detail that at this point there is no indication for admission to the hospital. It is understood, however, that if the symptoms persist or worsen the patient needs to return immediately for re-evaluation. ED course: Markedly improved, eating, oxygen 96%, feels better, trop neg, will dc home. . 11/24 00:45 Order name: Troponin (emerg Dept Use Only); Complete Time: 02:19 rn 11/24 00:45 Order name: XRAY Chest (1 view) rn 11/24 00:45 Order name: IV Start; Complete Time: 00:56 rn Administered Medications: 01:14 Drug: SOLU-Medrol 125 mg Route: IVP; Site: left antecubital; ak1 01:31 Follow up: Response: No adverse reaction ak1 01:14 Drug: Magnesium Sulfate 1 grams Route: IVPB; Infused Over: 1 hrs; Site: left ak1 antecubital; 02:09 Follow up: IV Status: Completed infusion ak1 01:14 Drug: NS 0.9% 500 ml Route: IV; Rate: bolus; Site: left antecubital; ak1 01:38 Follow up: IV Status: Completed infusion ak1 01:15 Drug: Xopenex (3) 1.25 mg Route: Inhalation; ak1 01:15 Drug: AtroVENT Aerosol 0.5 mg Route: Inhalation; ak1 01:28 Drug: Tylenol 650 mg Route: PO; ak1 01:38 Follow up: Response: No adverse reaction ak1 02:41 Drug: Lasix 20 mg Route: IVP; Site: right antecubital; ao 02:41 Follow up: Response: Medication administered at discharge. ao Disposition: 11/24/17 02:23 Discharged to Home. Impression: Chronic obstructive pulmonary disease with (acute) exacerbation. - Condition is Stable. - Discharge Instructions: Chronic Obstructive Pulmonary Disease. - Prescriptions for Prednisone 20 mg Oral Tablet - take 3 tablet by ORAL route once daily for 5 days; 15 tablet. Zithromax Z- Adin 250 mg Oral Tablet - take 1 tablet by ORAL route as directed for 5 days Day 1 - take two (2) tablets one time. Day 2, 3, 4 , 5 take one (1) tablet once daily.; 6 tablet. Albuterol Sulfate 90 mcg/actuation - inhale 1-2 puff by INHALATION route every 4-6 hours; 1 Inhaler. - Medication Reconciliation Form, Thank You Letter, Antibiotic Education, Prescription Opioid Use form. - Follow up: Private Physician; When: As needed; Reason: Recheck today's complaints, Re-evaluation by your physician. - Problem is an acute exacerbation. - Symptoms have improved. Signatures: Dispatcher [employer] EDMS Ryan Vasquez MD MD rn Pena, Laura RN RN lp1 Crystal Lord RN RN ak1 Hemal Hart RN RN ao Corrections: (The following items were deleted from the chart) 02:22 02:17 Constitutional: This is a well developed, well nourished patient who is awake, rn alert, and in no acute distress. rn 02:42 02:23 11/24/2017 02:23 Discharged to Home. Impression: Chronic obstructive pulmonary ao disease with (acute) exacerbation. Condition is Stable. Forms are Medication Reconciliation Form, Thank You Letter, Antibiotic Education, Prescription Opioid Use. Follow up: Private Physician; When: As needed; Reason: Recheck today's complaints, Re-evaluation by your physician. Problem is an acute exacerbation. Symptoms have improved. rn
--- NOTE | 2017-11-24 02:24 | ER ---
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 Transition of care: patient was not received from another setting of care. Onset of symptoms was November 24, 2017. Risk Assessment: Do you want to hurt yourself or someone else? Patient reports no desire to harm self or others. Initial Sepsis Screen: Does the patient meet any 2 criteria? No. Patient's initial sepsis screen is negative. Does the patient have a suspected source of infection? No. Patient's initial sepsis screen is negative. Care prior to arrival: None. 00:47 Method Of Arrival: EMS: [facility] lp1 00:47 Acuity: ARIEL 3 lp1 Triage Assessment: 01:19 General: Appears in no apparent distress. Behavior is calm, cooperative. Pain: ak1 Complains of pain in headache. EENT: No signs and/or symptoms were reported regarding the EENT system. Neuro: No deficits noted. Cardiovascular: No deficits noted. Respiratory: Reports shortness of breath at rest on exertion since "couple of days" cough that is. GI: No signs and/or symptoms were reported involving the gastrointestinal system. : No signs and/or symptoms were reported regarding the genitourinary system. Derm: No signs and/or symptoms reported regarding the dermatologic system. Musculoskeletal: No signs and/or symptoms reported regarding the musculoskeletal system. Historical: - Allergies: 00:51 Benadryl; lp1 - Home Meds: 00:51 None [Active]; lp1 - PMHx: 00:51 Aneurysm; BRAIN; Atrial Fib; Cancer; PROSTATE; CHF; COPD; Hypertension; Prostate Cancer;lp1 - PSHx: 00:51 Prostatectomy; cardiac stent x3; Brain aneurysm clip; lp1 - Immunization history:: Adult Immunizations unknown. - Social history:: Smoking status: Patient uses tobacco products, smokes one-half pack cigarettes per day. - Ebola Screening: : No symptoms or risks identified at this time. - Family history:: not pertinent. - Hospitalizations: : No recent hospitalization is reported. Screenin:52 Abuse screen: Denies threats or abuse. Denies injuries from another. Nutritional lp1 screening: No deficits noted. Tuberculosis screening: No symptoms or risk factors identified. Fall Risk None identified. Assessment: 01:20 Reassessment: Patient appears in no apparent distress at this time. No changes from ak1 previously documented assessment. see triage assessment pt c/o headache, ERP notified with new verbal orders for tylenol. . 01:40 Reassessment: Patient appears in no apparent distress at this time. No changes from ak1 previously documented assessment. Patient and/or family updated on plan of care and expected duration. Pain level reassessed. Patient is alert, oriented x 3, equal unlabored respirations, skin warm/dry/pink. Patient states symptoms have improved. pt tolerating water. pt resp even and unlabored. will continue to monitor. . 02:09 Reassessment: Patient appears in no apparent distress at this time. Patient and/or ak1 family updated on plan of care and expected duration. Pain level reassessed. Patient is alert, oriented x 3, equal unlabored respirations, skin warm/dry/pink. Patient states feeling better. Patient states symptoms have improved. Vital Signs: 00:51 BP 157 / 107; Pulse 91; Resp 18; Pulse Ox 96% on R/A; Weight 85.73 kg; Height 5 ft. 11 lp1 in. (180.34 cm); 00:51 Body Mass Index 26.36 (85.73 kg, 180.34 cm) lp1 ED Course: 00:44 Patient arrived in ED. rn 00:44 Ryan Vasquez MD is Attending Physician. rn 00:49 Crystal Lord, LASHAY is Primary Nurse. ak1 00:49 Triage completed. lp1 00:51 Arm band placed on right wrist. lp1 00:52 Patient has correct armband on for positive identification. Pulse ox on. NIBP on. lp1 00:55 Initial lab(s) drawn, by ks, sent to lab. Inserted saline lock: 20 gauge in left ak1 antecubital area, using aseptic technique. Blood collected. 01:15 XRAY Chest (1 view) Sent. ak1 01:50 XRAY Chest (1 view) In Process Unspecified. EDMS 01:51 Diet: Patient given snack. bb 02:41 No provider procedures requiring assistance completed. IV discontinued, intact, ao bleeding controlled, No redness/swelling at site. Pressure dressing applied. Administered Medications: 01:14 Drug: SOLU-Medrol 125 mg Route: IVP; Site: left antecubital; ak1 01:31 Follow up: Response: No adverse reaction ak1 01:14 Drug: Magnesium Sulfate 1 grams Route: IVPB; Infused Over: 1 hrs; Site: left ak1 antecubital; 02:09 Follow up: IV Status: Completed infusion ak1 01:14 Drug: NS 0.9% 500 ml Route: IV; Rate: bolus; Site: left antecubital; ak1 01:38 Follow up: IV Status: Completed infusion ak1 01:15 Drug: Xopenex (3) 1.25 mg Route: Inhalation; ak1 01:15 Drug: AtroVENT Aerosol 0.5 mg Route: Inhalation; ak1 01:28 Drug: Tylenol 650 mg Route: PO; ak1 01:38 Follow up: Response: No adverse reaction ak1 02:41 Drug: Lasix 20 mg Route: IVP; Site: right antecubital; ao 02:41 Follow up: Response: Medication administered at discharge. ao Outcome: 02:23 Discharge ordered by . rn 02:41 Discharged to Unknown Pt homeless ao 02:41 Condition: stable 02:41 Discharge instructions given to patient, Instructed on discharge instructions, follow up and referral plans. Demonstrated understanding of instructions, follow-up care, medications, Prescriptions given X 3. 02:42 Patient left the ED. ao Signatures: Dispatcher [employer] EDMS Myriam Roldan RN Ryan Paul MD MD rn Pena, Laura, RN RN lp1 Crystal Lord RN RN ak1 Hemal Hart RN LASHAY ao
[2017-11-24] MEDS ORDERED: FUROSEMIDE 20 MG/ 2ML VIAL ONE (02:39)
[2017-11-24 02:47] VITALS: BP 157/107; O2SAT 96
--- NOTE | 2017-11-24 08:15 | RAD REPORT ---
EXAM DESCRIPTION: RAD - Chest Single View - 11/24/2017 1:49 am CLINICAL HISTORY: Shortness of breath COMPARISON: November 16 TECHNIQUE: AP portable chest image was obtained 0106 hour . FINDINGS: No dense mass or consolidation. Lung markings are prominent but not clearly different from comparison. Patient has significant cardiomegaly similar or slightly worse than comparison. Vasculat ure is prominent. Trachea is midline. No measurable pleural effusion and no pneumothorax. No gross mateusz ny abnormality seen. No acute aortic findings suspected. IMPRESSION: Significant cardiomegaly I similar or slightly increased from prior imaging. Vasculature and lung markings are prominent. This is a stable overall pattern but probably indicates chronic failure/ volume overload.
--- OUTSIDE RECORDS SUMMARY | 2017-11-24 12:21 | XMS REPORT ---
:1950 [facility] Address [address] [place] [address] [address]. [address] [place] [address] Care Team Providers Name Role Phone Unavailable Unavailable Unavailable Problems This patient has no known problems. Allergies, Adverse Reactions, Alerts This patient has no known allergies or adverse reactions. Medications This patient has no known medications.
== END 2017-11-24 02:42 | disposition home or self-care (01) ==
LOC: ER 00:43
DX: J44.1 Chronic obstructive pulmonary disease with (acute) exacerbation (principal); Z88.8 Allergy status to other drugs, medicaments and biological substances
CPT/HCPCS: 36415; 71045; 84484; 99284; J1940; J2930; J3475; J7030

== ENCOUNTER 2017-12-03 21:01 | Observation (INO) | payer OTHER ==
--- OUTSIDE RECORDS SUMMARY | 2017-12-03 21:03 | XMS REPORT ---
:1950 [facility] [address] [place] [address] Dr. Diamond [address] [place] [id number] Care Team Providers Name Role Phone Unavailable Unavailable Unavailable Problems This patient has no known problems. Allergies, Adverse Reactions, Alerts This patient has no known allergies or adverse reactions. Medications This patient has no known medications.
[2017-12-03 22:57] LABS: Absolute Lymphocytes (CBC) 1.4 K/uL (0.7-4.9); Absolute Monocytes 1.3 K/uL (0.1-1.3); Absolute Neutrophil 9.9 K/uL (1.8-8.0); Basophils % 0.4 % (0-1.3); Eosinophils % 1.3 % (0-4.4); Hematocrit 33.3 % (39.6-49.0); Lymphocytes % 10.8 % (15.3-44.8); MCH 18.1 pg (27.0-35.0); MCV 60.5 fL (80-100); MPV 9.3 fL (7.6-11.3); Monocytes % 10.4 % (3.3-12.3)
[2017-12-03 23:06] LABS: Protime INR 1.44
[2017-12-03 23:11] LABS: Urine Blood NEGATIVE (NEG); Urine Glucose NEGATIVE (NEG); Urine Protein 3+ (NEG); Urine pH 5.5 (5.0-7.0)
[2017-12-03 23:16] LABS: ALT/SGPT 32 U/L (12-78); AST/SGOT 28 U/L (15-37); Albumin 3.3 g/dL (3.4-5.0); Alkaline Phosphatase 84 U/L (45-117); BUN Blood Urea Nitrogen 15 mg/dL (7-18); Bicarbonate 24 mmol/L (21-32); Bilirubin Direct 0.3 mg/dL (0-0.2); Bilirubin Total 0.8 mg/dL (0.2-1.0); Creatine Phosphokinase 70 U/L (39-308); Glucose Level 114 mg/dL (74-106); Lipase 91 U/L (73-393); Magnesium 1.9 mg/dL (1.8-2.4); Potassium 4.4 mmol/L (3.5-5.1); Protein, Total 6.4 g/dL (6.4-8.2); Sodium Level 140 mmol/L (136-145); Troponin (Emerg Dept Use Only) 0.06 ng/mL (0.0-0.045)
[2017-12-03 23:25] LABS: Anisocytosis 1+; Blood Morphology Comment NOTED (NOT SEEN); Hypochromasia 1+; Platelet Estimate ADEQ; Urine White Blood Cell Casts OK
[2017-12-03 23:26] LABS: Polychromasia SLIGHT; Target Cells FEW
[2017-12-03 23:29] LABS: NT PRO-BNP > 35000 pg/mL (<125)
[2017-12-04] MEDS ORDERED: FUROSEMIDE 40 MG/4 ML VIAL ONE (01:16)
[2017-12-04] MEDS ORDERED: ACETAMINOPHEN 500 MG TAB ONE (01:20)
[2017-12-04] MEDS ORDERED: HYDRALAZINE HCL 20 MG/ML VIAL ONE (01:48)
[2017-12-04] MEDS ORDERED: ALBUTEROL 2.5 MG/3 ML NEB SOL ONE (01:50)
[2017-12-04] MEDS ORDERED: IPRATROPIUM BROM 0.5MG/2.5ML ONE (01:51)
--- NOTE | 2017-12-04 02:30 | ER ---
Nurse's Notes [facility] Name: Mark Terrell Age: 66 yrs Sex: Male : 1950 Arrival Date: 12/03/2017 Time: 21:02 Bed 20 Private MD: Diagnosis: Chronic diastolic (congestive) heart failure;Hypoxemia Presentation: 12/03 21:05 Presenting complaint: EMS states: pt c/o difficulty breathing, had called EMS out two tl3 hours ago for same but only wanted a neb treatment, they gave albuterol and atrovent. [facility], possible scabies infestation. Has HX of HTN, but meds are "in the [place]" and he can not get his bile out to where they are because of water conditions. Transition of care: patient was not received from another setting of care. Onset of symptoms was December 03, 2017 at 19:00. Risk Assessment: Do you want to hurt yourself or someone else? Patient reports no desire to harm self or others. Initial Sepsis Screen: Does the patient meet any 2 criteria? Yes Does the patient have a suspected source of infection? No. Patient's initial sepsis screen is negative. Care prior to arrival: Medication(s) given: Albuterol Neb x 2, Atrovent Neb x 1. 21:05 Method Of Arrival: EMS: [facility] tl3 21:05 Acuity: ARIEL 3 tl3 Triage Assessment: 21:11 General: Appears uncomfortable, well groomed, well developed, well nourished, Behavior tl3 is calm, cooperative, appropriate for age. Pain: Complains of pain in chest with deep breathing. EENT: No signs and/or symptoms were reported regarding the EENT system. Neuro: Level of Consciousness is awake, alert, obeys commands, Oriented to person, place, time, situation, Appropriate for age. Cardiovascular: Heart tones S1 S2 present Patient's skin is warm and dry. Respiratory: Breath sounds with rhonchi in right middle lobe, right lower lobe and left posterior lower lobe. GI: : Derm: No signs and/or symptoms reported regarding the dermatologic system. Musculoskeletal: No signs and/or symptoms reported regarding the musculoskeletal system. Historical: - Allergies: 21:11 Benadryl; tl3 - PMHx: 21:11 Aneurysm; BRAIN; Atrial Fib; Cancer; PROSTATE; CHF; COPD; Hypertension; Prostate Cancer;tl3 - PSHx: 21:11 Brain aneurysm clip; Prostatectomy; cardiac stent x3; tl3 - Immunization history:: Adult Immunizations unknown. - Social history:: Smoking status: unknown. - Ebola Screening: : No symptoms or risks identified at this time. Screenin:15 Abuse screen: Denies threats or abuse. Nutritional screening: No deficits noted. tl3 Tuberculosis screening: No symptoms or risk factors identified. Fall Risk None identified. Assessment: 21:15 Reassessment: No changes from previously documented assessment. General:. tl3 23:07 Reassessment: Patient appears in no apparent distress at this time. No changes from tl3 previously documented assessment. Patient and/or family updated on plan of care and expected duration. Pain level reassessed. Patient is alert, oriented x 3, equal unlabored respirations, skin warm/dry/pink. no needs at this time. 12/04 00:25 Reassessment: Patient appears in no apparent distress at this time. No changes from tl3 previously documented assessment. Patient and/or family updated on plan of care and expected duration. Pain level reassessed. Patient is alert, oriented x 3, equal unlabored respirations, skin warm/dry/pink. pt sleeping, no needs at this time. 01:21 Reassessment: Patient appears in no apparent distress at this time. Patient and/or mg2 family updated on plan of care and expected duration. Pain level reassessed. Patient is alert, oriented x 3, equal unlabored respirations, skin warm/dry/pink. patient complains of headache. provider informed. 02:33 Reassessment: Patient returned from CT, aware of waiting for CT results. General: lp1 Appears unkempt. Respiratory: Respiratory effort is even, labored, Respiratory pattern is symmetrical, Breath sounds are coarse bilaterally. 03:19 Reassessment: Dr. Taylor at bedside. lp1 Vital Signs: 12/03 21:11 BP 169 / 99; Pulse 97; Resp 18; Pulse Ox 96% on 1 lpm NC; tl3 23:07 BP 184 / 111; Pulse 88; Resp 20; Pulse Ox 98% on R/A; tl3 12/04 00:15 BP 167 / 96; Pulse 84; Resp 19; Pulse Ox 97% on 2 lpm NC; mg2 00:25 BP 168 / 92; Pulse 81; Resp 16; Pulse Ox 98% on R/A; tl3 01:22 BP 176 / 106; Pulse 84; Resp 22; Pulse Ox 98% on 2 lpm NC; Pain 4/10; mg2 02:07 BP 154 / 84; Pulse 87; Resp 22; Pulse Ox 100% on Nebulizer Mask; Pain 2/10; mg2 02:32 BP 150 / 79; Pulse 92; Resp 26; Pulse Ox 99% on 2 lpm NC; lp1 03:18 Temp 98.8(O); Weight 89.81 kg (R); lp1 03:56 BP 167 / 72; Pulse 90; Resp 24; Pulse Ox 98% on 2 lpm NC; lp1 ED Course: 12/03 21:02 Patient arrived in ED. ds1 21:05 Chrissie Logan, LASHAY is Primary Nurse. tl3 21:10 Triage completed. tl3 21:11 Arm band placed on left wrist. tl3 21:15 Patient has correct armband on for positive identification. Pulse ox on. NIBP on. tl3 21:15 No provider procedures requiring assistance completed. tl3 22:17 Blair Kerr MD is Attending Physician. tw4 22:52 XRAY CXR (1 view) In Process Unspecified. EDMS 22:58 Inserted saline lock: 20 gauge in right antecubital area, using aseptic technique. mg2 Blood collected. 23:09 Notified ED physician of a critical lab result(s). d dimer 775. fc 23:09 Second set of blood cultures drawn by mt. tl3 12/04 02:29 Whit Fuentes MD is Hospitalizing Provider. tw4 02:35 Report received from LASHAY Kirkland. lp1 02:42 CT Chest For PE Angio In Process Unspecified. EDMS 02:43 CT completed. Patient tolerated procedure well. Patient moved to CT via stretcher. Patient moved back from CT. 03:19 Patient admitted, IV remains in place. lp1 Administered Medications: 01:12 Drug: Lasix 40 mg Route: IVP; Site: right antecubital; mg2 01:50 Follow up: Response: No adverse reaction; Marked relief of symptoms mg2 01:15 Drug: Tylenol 1000 mg Route: PO; mg2 01:50 Follow up: Response: No adverse reaction; Marked relief of symptoms mg2 01:50 Drug: hydrALAZINE 20 mg Route: IV; Rate: bolus; Site: right antecubital; mg2 02:19 Follow up: Response: No adverse reaction; IV Status: Completed infusion mg2 01:51 Drug: Albuterol - atroVENT (3:1) (2.5 mg - 0.5 mg) 3 ml Route: Nebulizer; mg2 02:19 Follow up: Response: No adverse reaction; Marked relief of symptoms mg2 03:17 Drug: Nitro-Bid Ointment 2 % 1 inches Route: Transdermal; Site: anterior chest wall; lp1 Output: 03:15 Urine: 700ml (Voided); Total: 700ml. lp1 03:57 Urine: 350ml (Voided); Total: 1050ml. lp1 Outcome: 02:30 Decision to Hospitalize by Provider. tw4 03:18 Condition: stable lp1 03:18 Instructed on the need for admit. 03:51 Admitted to Tele accompanied by tech, via wheelchair, room 407, with oxygen, with lp1 chart, Report called to LASHAY Mayberry 04:20 Patient left the ED. lp1 Signatures: Dispatcher [employer] EDOsvaldo Bar Felicia RN RN Adrienne Will ds1 Trisha Armando RN RN lp1 Blair Kerr MD MD tw4 Chrissie Logan RN RN tl3 Sidney Kerr RN RN mg2 Corrections: (The following items were deleted from the chart) 04:47 04:46 Patient left the ED. lp1 lp1
--- NOTE | 2017-12-04 02:30 | EDPHYS ---
Physician Documentation [facility] Name: Mark Terrell Age: 66 yrs Sex: Male : 1950 Arrival Date: 12/03/2017 Time: 21:02 Bed 20 Private MD: ED Physician Blair Kerr HPI: 12/04 03:14 This 66 yrs old Male presents to ER via EMS with complaints of SOB. tw4 03:14 The patient has shortness of breath with light activity. tw4 03:14 Onset: The symptoms/episode began/occurred 2 hour(s) ago. Duration: The symptoms are tw4 chronic, and have existed for years. The patient's shortness of breath is aggravated by exertion, is alleviated by rest, application of supplemental oxygen. Associated signs and symptoms: The patient has no apparent associated signs or symptoms. Severity of symptoms: At their worst the symptoms were moderate in the emergency department the symptoms are unchanged. Historical: - Allergies: 12/03 21:11 Benadryl; tl3 - PMHx: 21:11 Aneurysm; BRAIN; Atrial Fib; Cancer; PROSTATE; CHF; COPD; Hypertension; Prostate Cancer;tl3 - PSHx: 21:11 Brain aneurysm clip; Prostatectomy; cardiac stent x3; tl3 - Immunization history:: Adult Immunizations unknown. - Social history:: Smoking status: unknown. - Ebola Screening: : No symptoms or risks identified at this time. ROS: 12/04 03:14 Constitutional: Negative for fever, chills, and weight loss, Cardiovascular: Negative tw4 for chest pain, palpitations, and edema. Abdomen/GI: Negative for abdominal pain, nausea, vomiting, diarrhea, and constipation, Back: Negative for injury and pain, MS/Extremity: Negative for injury and deformity, Skin: Negative for injury, rash, and discoloration. Respiratory: Positive for dyspnea on exertion, shortness of breath, on exertion. wheezing, Negative for cough, hemoptysis, pleurisy. Exam: 03:14 Constitutional: This is a well developed, well nourished patient who is awake, alert, tw4 and in no acute distress. Eyes: Pupils equal round and reactive to light, extra-ocular motions intact. Lids and lashes normal. Conjunctiva and sclera are non-icteric and not injected. Cornea within normal limits. Periorbital areas with no swelling, redness, or edema. Chest/axilla: Normal chest wall appearance and motion. Nontender with no deformity. No lesions are appreciated. Cardiovascular: Regular rate and rhythm with a normal S1 and S2. No gallops, murmurs, or rubs. Normal PMI, no JVD. No pulse deficits. 03:14 MS/ Extremity: Pulses equal, no cyanosis. Neurovascular intact. Full, normal range of motion. Neuro: Awake and alert, GCS 15, oriented to person, place, time, and situation. Cranial nerves II-XII grossly intact. Motor strength 5/5 in all extremities. Sensory grossly intact. Cerebellar exam normal. Normal gait. 03:14 Respiratory: the patient does not display signs of respiratory distress, Respirations: normal, Breath sounds: wheezing: that is moderate, is heard diffusely. Vital Signs: 12/03 21:11 BP 169 / 99; Pulse 97; Resp 18; Pulse Ox 96% on 1 lpm NC; tl3 23:07 BP 184 / 111; Pulse 88; Resp 20; Pulse Ox 98% on R/A; tl3 12/04 00:15 BP 167 / 96; Pulse 84; Resp 19; Pulse Ox 97% on 2 lpm NC; mg2 00:25 BP 168 / 92; Pulse 81; Resp 16; Pulse Ox 98% on R/A; tl3 01:22 BP 176 / 106; Pulse 84; Resp 22; Pulse Ox 98% on 2 lpm NC; Pain 4/10; mg2 02:07 BP 154 / 84; Pulse 87; Resp 22; Pulse Ox 100% on Nebulizer Mask; Pain 2/10; mg2 02:32 BP 150 / 79; Pulse 92; Resp 26; Pulse Ox 99% on 2 lpm NC; lp1 03:18 Temp 98.8(O); Weight 89.81 kg (R); lp1 03:56 BP 167 / 72; Pulse 90; Resp 24; Pulse Ox 98% on 2 lpm NC; lp1 MDM: 12/03 22:17 Patient medically screened. tw4 12/04 03:14 Differential diagnosis: asthma, Bronchitis CHF exacerbation, pneumonia, pulmonary tw4 edema, reactive airway disease, Unstable Angina. Data reviewed: vital signs, nurses notes. Counseling: I had a detailed discussion with the patient and/or guardian regarding: the historical points, exam findings, and any diagnostic results supporting the discharge/admit diagnosis. Physician consultation: Whit Fuentes MD was contacted at 02:45, regarding admission, patient's condition, need to come to ED to see patient, and will see patient in ED. 12/03 22:36 Order name: Blood Culture Adult (2) 12/03 22:36 Order name: BMP; Complete Time: 01:03 12/03 22:36 Order name: CBC with Diff; Complete Time: :12/03 22:36 Order name: Ckmb; Complete Time: :12/03 22:36 Order name: CPK; Complete Time: :12/03 22:36 Order name: D-Dimer; Complete Time: :12/03 22:36 Order name: Hepatic Function; Complete Time: :12/03 22:36 Order name: Lipase; Complete Time: :12/03 22:36 Order name: Magnesium; Complete Time: :12/03 22:36 Order name: NT PRO-BNP; Complete Time: :12/03 22:36 Order name: PT-INR; Complete Time: :12/03 22:36 Order name: Ptt, Activated; Complete Time: :12/03 22:36 Order name: Troponin (emerg Dept Use Only); Complete Time: 01:03 12/03 22:55 Order name: Urine Dipstick--Ancillary (enter results); Complete Time: 01:03 ri 12/03 22:36 Order name: Call for Old EKG; Complete Time: 23:07 12/03 22:36 Order name: XRAY CXR (1 view) 12/03 22:36 Order name: EKG; Complete Time: 22:37 12/03 22:36 Order name: Cardiac monitoring; Complete Time: 22:44 12/03 22:36 Order name: EKG - Nurse/Tech; Complete Time: 22:44 12/03 22:36 Order name: IV Saline Lock; Complete Time: 22:44 12/03 22:36 Order name: Labs collected and sent; Complete Time: :44 12/03 23:26 Order name: CBC Smear Scan; Complete Time: 01:03 EDMS 12/04 01:06 Order name: CT Chest For PE Angio tw4 12/03 22:36 Order name: O2 Per Protocol; Complete Time: :44 tw4 12/03 22:36 Order name: O2 Sat Monitoring; Complete Time: :44 tw4 Administered Medications: 01:12 Drug: Lasix 40 mg Route: IVP; Site: right antecubital; mg2 01:50 Follow up: Response: No adverse reaction; Marked relief of symptoms mg2 01:15 Drug: Tylenol 1000 mg Route: PO; mg2 01:50 Follow up: Response: No adverse reaction; Marked relief of symptoms mg2 01:50 Drug: hydrALAZINE 20 mg Route: IV; Rate: bolus; Site: right antecubital; mg2 02:19 Follow up: Response: No adverse reaction; IV Status: Completed infusion mg2 01:51 Drug: Albuterol - atroVENT (3:1) (2.5 mg - 0.5 mg) 3 ml Route: Nebulizer; mg2 02:19 Follow up: Response: No adverse reaction; Marked relief of symptoms mg2 03:17 Drug: Nitro-Bid Ointment 2 % 1 inches Route: Transdermal; Site: anterior chest wall; lp1 Disposition: 12/04/17 02:30 Hospitalization ordered by Whit Fuentes for Observation. Preliminary diagnosis are Chronic diastolic (congestive) heart failure, Hypoxemia. - Bed requested for Telemetry/MedSurg (observation). - Status is Observation. lp1 - Condition is Fair. - Problem is an ongoing problem. - Symptoms have improved. UTI on Admission? No Signatures: Dispatcher [employer] [facility] Marisa Heller ms Trisha Armando, RN RN lp1 Blair Kerr MD MD tw4 Chrissie Logan RN RN tl3 Sidney Kerr, LASHAY RN mg2 Corrections: (The following items were deleted from the chart) 02:03 02:01 Chest For PE Angio+CT.RAD.BRZ ordered. [facility] EDDE 02:03 02:02 Chest For Pe Angio ordered. [facility] EDDE 03:41 02:30 Hospitalization Ordered by Whit Fuentes MD for Observation. Preliminary ms diagnosis is Chronic diastolic (congestive) heart failure; Hypoxemia. Bed requested for Telemetry/MedSurg (observation). Status is Observation. Condition is Fair. Problem is an ongoing problem. Symptoms have improved. UTI on Admission? No. tw4 04:46 03:41 12/04/2017 02:30 Hospitalization Ordered by Whit Fuentes MD for Observation. lp1 Preliminary diagnosis is Chronic diastolic (congestive) heart failure; Hypoxemia. Bed requested for Telemetry/MedSurg (observation). Status is Observation. Condition is Fair. Problem is an ongoing problem. Symptoms have improved. UTI on Admission? No. ms
[2017-12-04] MEDS ORDERED: NITROGLYCERIN 1 GM PKT TD ONE ×2 (03:16→05:24)
--- NOTE | 2017-12-04 03:44 | P.HP ---
Certification for Inpatient Patient admitted to: Observation With expected LOS: <2 Midnights Practitioner: I am a practitioner with admitting privileges, knowledge of patient current condition, hospital course, and medical plan of care. Services: Services provided to patient in accordance with Admission requirements found in Title 42 Section 412.3 of the Code of Federal Regulations Patient History Date of Service: 12/04/17 Reason for admission: Acute on chronic systolic CHF History of Present Illness: Mr Terrell is a 67-year-old male with history of coronary artery disease status post 3 stent placement, COPD, hypertension, diabetes mellitus types 2, chronic systolic CHF, echo shows global hypokinesis with EF about 30-35%, brain aneurism, prostate cancer, who has complicated social situation, he is homeless most of the time, recently was living in a hotel but he was evicted. He has not been taking his medication for the last month. He had presented to ER complaining of progressive shortness of breath, starting about 2:00 p.m. yesterday. He denied any chest pain, nausea, vomiting, diaphoresis or dizziness. Lab work remarkable for significant elevation of BNP, troponin I 0.06, EKG normal sinus rhythm, nonspecific ST-T abnormalities, sign of atrial enlargement. Chest-x-ray bilateral venous congestion. Allergies diphenhydramine HCl [From Benadryl] Adverse Reaction (Verified 09/01/17 08:49) Hives Home medications list reviewed: Yes Home Medications: Aspirin [Aspirin EC 81 MG] 1 tab PO DAILY 11/16/17 Clopidogrel Bisulfate [Plavix*] 1 tab PO DAILY 11/16/17 Furosemide [Lasix*] 40 mg PO DAILY 11/16/17 Metoprolol Tartrate [Lopressor*] 50 mg PO DAILY 11/16/17 Nitroglycerin [Nitrostat*] 0.4 mg SL DIRECTED PRN 11/16/17 Atorvastatin Calcium [Lipitor] 40 mg PO BEDTIME #30 tab 11/17/17 Lisinopril [Prinivil*] 10 mg PO DAILY #30 tab 11/17/17 - Past Medical/Surgical History Diabetic: Yes -: History of prostate cancer -: Hypertension -: History of brain aneurysm requiring surgery -: CHF, systolic dysfunction -: COPD -: Tobacco abuse -: Noncompliance -: Coronary disease, stents x3 to LAD/RCA(Feb 2016) -: Diabetes mellitus type 2 -: GERD -: anemia -: hyperlipidemia -: Prostate surgery -: Brain aneurysm surgery -: Toe surgery R. great toe/childhood -: Heart catheterization-3stents LAD/RCA Psychosocial/ Personal History: He is single, lives alone. He has no children. 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 - Family History Father -: Cancer Notes: brain CA Mother -: Cancer Notes: PANCREATIC CANCER Brother -: Cancer Notes: lung CA - Social History Smoking Status: Current every day smoker Counseled patient to stop smoking for: less than 10 minutes Alcohol use: No CD- Drugs: No Caffeine use: Yes Place of Residence: [facility] Review of Systems 10-point ROS is otherwise unremarkable Physical Examination - Physical Exam General: Alert, In no apparent distress HEENT: Atraumatic, PERRLA, Mucous membr. moist/pink, EOMI, Sclerae nonicteric Neck: Supple, 2+ carotid pulse no bruit, No LAD, Without JVD or thyroid abnormality Respiratory: Diminished, Crackles/rales (Bibasilar rales), Rhonchi/gurgles ( Scattered bilateral gurgles) Cardiovascular: Regular rate/rhythm, Normal S1 S2 Gastrointestinal: Normal bowel sounds, No tenderness Musculoskeletal: No tenderness Integumentary: No rashes Neurological: Normal gait, Normal speech, Normal strength at 5/5 x4 extr, Normal tone, Normal affect Lymphatics: No axilla or inguinal lymphadenopathy - Studies Laboratory Data (last 24 hrs) 12/03/17 22:40: PT 17.0 H, INR 1.44, APTT 28.9 12/03/17 22:40: WBC 12.8 H, Hgb 9.9 L, Hct 33.3 L, Plt Count 208 12/03/17 22:40: Sodium 140, Potassium 4.4, BUN 15, Creatinine 1.10, Glucose 114 H, Magnesium 1.9, Total Bilirubin 0.8, AST 28, ALT 32, Alkaline Phosphatase 84, Lipase 91 Assessment and Plan - Problems (Diagnosis) (1) Acute on chronic systolic (congestive) heart failure Onset Date: 09/01/17 Current Visit: No Status: Acute (2) Elevated troponin Onset Date: 03/31/17 Current Visit: No Status: Acute (3) CAD (coronary artery disease) Current Visit: No Status: Chronic Qualifiers: Coronary Disease-Associated Artery/Lesion type: [place] artery [place] vs. transplanted heart: [place] heart Associated angina: without angina Qualified Code(s): I25.10 - Atherosclerotic heart disease of [place] coronary artery without angina pectoris (4) COPD (chronic obstructive pulmonary disease) Onset Date: 03/21/15 Current Visit: No Status: Chronic Qualifiers: COPD type: unspecified COPD Qualified Code(s): J44.9 - Chronic obstructive pulmonary disease, unspecified (5) Hypertension Onset Date: 02/05/16 Current Visit: No Status: Chronic Qualifiers: Hypertension type: essential hypertension (6) Noncompliance Onset Date: 03/18/16 Current Visit: No Status: Chronic (7) Tobacco abuse Onset Date: 02/05/16 Current Visit: No Status: Chronic (8) Type 2 diabetes mellitus Onset Date: 12/10/16 Current Visit: No Status: Chronic Qualifiers: Diabetes mellitus long term care pharmacist insulin use: without long term care pharmacist use Diabetes mellitus complication status: without complication Qualified Code(s): E11.9 - Type 2 diabetes mellitus without complications - Plan The patient will be admitted to the hospital due to acute on chronic systolic CHF. He is hypertensive. Most likely his symptoms are secondary to be noncompliant with his medical treatment. Will order IV Lasix, nitropaste, resume PAWEL inhibitors, beta-blockers, aspirin, Plavix, statins. Consult cardiology team. Will order ADA and low-sodium diet, order SSI for diabetes controlled. - Advance Directives Does patient have a Living Will: No Does patient have a Durable POA for Healthcare: No - Code Status/Comfort Care Code Status Assessed: Yes Code Status: Full Code
[2017-12-04 05:12] VITALS: BMI 23.0
[2017-12-04] MEDS ORDERED: GLUCAGON 1 MG/VIAL IM PRN (05:24)
[2017-12-04] MEDS ORDERED: ALBUTEROL 2.5 MG/3 ML NEB SOL NEB PRN (05:24)
[2017-12-04] MEDS ORDERED: ONDANSETRON 4 MG/2 ML VIAL IV PRN (05:24)
[2017-12-04] MEDS ORDERED: D50W 25 GM/50 ML SYRINGE IV PRN (05:24)
--- NOTE | 2017-12-04 06:31 | RAD REPORT ---
EXAM DESCRIPTION: RAD - Chest Single View - 12/03/2017 10:53 pm CLINICAL HISTORY: Dyspnea COMPARISON: November 24 TECHNIQUE: AP portable chest image was obtained 2248 hours . FINDINGS: No peripheral mass or consolidation. Interstitial markings are prominent but not clearly d ifferent from prior imaging. Cardiomegaly is present with mild prominence of the vasculature. No haylie urable pleural effusion and no pneumothorax. No gross bony abnormality seen. No acute aortic findings suspected. IMPRESSION: No new or progressive finding from the November 24 study. The patient has chronic cardiomegaly, vascular engorgement and lung parenchymal prominence could yocasta [place] a chronic mild failure.
--- NOTE | 2017-12-04 06:58 | RAD REPORT ---
EXAM DESCRIPTION: CT - Chest For Pe Angio - 12/04/2017 6:30 am CLINICAL HISTORY: Chest pain, dyspnea, elevated D-dimer A preliminary report was provided at the time of the study and reviewed prior to final report. COMPARISON: Chest films same date, CT chest without contrast August 2016 TECHNIQUE: Dynamically enhanced 3 mm thick images of the chest were obtained during administration o f approximately 150mL Isovue 370 IV contrast. Coronal and oblique MIP reconstruction images were gene rated and reviewed. Exam utilizes a protocol to evaluate the pulmonary arterial tree. All CT scans are performed using dose optimization technique as appropriate and may include automated exposure control or mA/KV adjustment according to patient size. FINDINGS: No pulmonary emboli are identified. The aorta as imaged shows no acute or suspicious finding. No pericardial thickening or effusion. No focal mass or consolidation. Lung parenchyma is prominent. Minimal bilateral pleural effusions are present. Nonspecific mediastinal lymph nodes are present probably reactive. These are slightly more prominent than seen in 2017. Small hilar lymph nodes are present. No chest wall masses or abnormal axillary lym phadenopathy. Prominent cardiomegaly present increased from the CT comparison. No pericardial thickening or effusio n. Lung parenchymal and far peripheral branch assessment is limited by respiratory motion artifact. IMPRESSION: No pulmonary emboli identified. Significant cardiomegaly with small bilateral pleural effusions and prominent lung markings consisten t with an acute or chronic CHF presentation. Mediastinal and hilar lymph nodes are increased slightly from 2017, still favored to be reactive.
[2017-12-04] MEDS: INSULIN -REGULAR HUMAN 50 UNIT/0.5 ML ML SQ SCH ×4 (07:30→21:00)
[2017-12-04] MEDS: IPRATROPIUM BROM 0.5MG/2.5ML NEB PRN ×2 (08:20→19:57)
[2017-12-04] MEDS: ARFORMOTEROL TARTRATE 15 MCG/2 ML VIAL.NEB NEB SCH ×2 (08:20→20:00)
[2017-12-04] MEDS ORDERED: METOPROLOL TAR 50 MG TAB PO SCH (09:00)
[2017-12-04] MEDS: LISINOPRIL 10 MG TAB PO SCH (09:22)
[2017-12-04] MEDS: ENOXAPARIN 40 MG/0.4 ML SQ SCH (09:22)
[2017-12-04] MEDS: METOPROLOL TAR 50 MG TAB PO SCH ×2 (09:22→21:32)
[2017-12-04] MEDS: ASPIRIN EC 81 MG TAB PO SCH (09:22)
[2017-12-04] MEDS: CLOPIDOGREL 75 MG TABLET PO SCH (09:23)
[2017-12-04] MEDS: FUROSEMIDE 40 MG/4 ML VIAL IV SCH ×2 (09:23→17:50)
--- NOTE | 2017-12-04 10:33 | P.PN ---
Subjective Date of Service: 12/04/17 Primary Care Provider: None Chief Complaint: Acute on chronic systolic CHF Subjective: Improving Physical Examination - Vital Signs Temperature: 100.3 F Blood Pressure: 153/74 Pulse: 84 Respirations: 22 Pulse Ox (%): 95 - Physical Exam General: Alert, In no apparent distress, Oriented x3, Cooperative HEENT: Atraumatic Neck: Supple Respiratory: Crackles/rales Cardiovascular: Normal pulses, Regular rate/rhythm Gastrointestinal: Normal bowel sounds, Soft and benign, Non-distended, No tenderness, No masses, No rebound, No guarding Musculoskeletal: No erythema, No tenderness, No warmth Integumentary: No tenderness/swelling, No erythema, No warmth, No cyanosis Neurological: Normal speech, Normal strength at 5/5 x4 extr, Normal tone, Normal affect - Studies Laboratory Data (last 24 hrs) 12/03/17 22:40: PT 17.0 H, INR 1.44, APTT 28.9 12/03/17 22:40: WBC 12.8 H, Hgb 9.9 L, Hct 33.3 L, Plt Count 208 12/03/17 22:40: Sodium 140, Potassium 4.4, BUN 15, Creatinine 1.10, Glucose 114 H, Magnesium 1.9, Total Bilirubin 0.8, AST 28, ALT 32, Alkaline Phosphatase 84, Lipase 91 Medications List Reviewed: Yes Assessment & Plan Discharge Plan: Home Plan to discharge in: 24 Hours Physician Review Additional Text: Impression: Shortness of breath secondary to acute on chronic systolic congestive heart failure with EF of 30% with CT scan showing small bilateral pleural effusion and poor compliance with medication/follow up COPD Hypertension CAD with prior heart catheterization July 2017 showing LAD stent widely patentn. LAD had 50% stenosis throughout it. Circumflex with 50% stenosis. Right Coronary diffusely diseased in the mid to distal junction with old stent. 80% in stent stenosis just distal to the stenosis of 50% narrowing. Tobacco abuse Hyperlipidemia Diabetes mellitus type 2 diet controlled Iron deficiency anemia Small bilateral pleural effusion Non compliance with follow up and medication Plan: Shortness of breath secondary to acute on chronic systolic congestive heart failure with EF of 30% with CT scan showing small bilateral pleural effusion and poor compliance with medication/follow up: Patient with poor compliance. Will continue with diuresis-Lasix. Will teach on 1500 cc per day fluid restriction. Will talk with social work msw to help in getting assistance with medications and to establish care with a PCP to continue his care. This was addressed in detail with the patient. Patient understands and agrees. Recheck chest x-ray tomorrow. Anticipate discharge in the next 24 hr. Case discussed at length with cardiology. COPD: Will continue with COPD medication. Hypertension: Will restart blood pressure medication. Will monitor and adjust appropriately. CAD with prior heart catheterization July 2017 showing LAD stent widely patentn. LAD had 50% stenosis throughout it. Circumflex with 50% stenosis. Right Coronary diffusely diseased in the mid to distal junction with old stent. 80% in stent stenosis just distal to the stenosis of 50% narrowing: Troponin slightly elevated but improved. Patient had heart catheterization July 2017. Angioplasty was done. Compliance with medication will be vital. This was addressed in detail with the patient. He agrees. Will continue with prior medication. Tobacco abuse: Tobacco cessation addressed in detail. Patient may require nicotine patch. Hyperlipidemia: Will continue with medication. Diabetes mellitus type 2 diet controlled: Previous A1c 7.1. Patient not on medication. Will monitor Accu-Cheks. Continue with diet. Iron deficiency anemia: Will start iron supplementation Small bilateral pleural effusion secondary CHF: Continue as above Non compliance with follow up and medication: Above issues addressed with social work msw. director of medical services will provide a list of providers in the area to establish care and for assistance on medications. Time Spent Managing Pts Care (In Minutes): 55
[2017-12-04] MEDS: ACETAMINOPHEN 500 MG TAB PO PRN ×3 (11:17→23:17)
--- NOTE | 2017-12-04 13:28 | CON ---
Date of Consultation: 12/04/2017 The patient was admitted to Dr. Rodriguez on 12/04/2017. Reason For Consultation: CHF and COPD exacerbation. History Of Present Illness: Mr. Terrell is 67. He has a history of congestive heart failure that i s systolic, chronic; has a history of coronary artery disease, status post PCI; has a history of atri al fibrillation that has resolved; has a history of brain aneurysm; COPD; prostate cancer; hypertensi on; and dyslipidemia. Mr. Terrell comes to the hospital about once a month. He was just discharged with aspirin, Plavix, Lipitor, Lasix, and metoprolol, but he ran out of his medications. This is wh at he usually does. His social situation is absolutely unacceptable and that has not been resolved, although multiple attempts have been made and the patient himself has been the biggest issue in that regard. He came in was with shortness of breath that has resolved after diuresis and nebulized treat ment. Allergies: HE IS ALLERGIC TO BENADRYL. Past Medical History: As stated above. Medications: His home medications as stated above. Review of Systems: As stated earlier. Social History: As stated earlier. Family History: Noncontributory. Physical Examination: General: Today, he is pleasant, in no acute distress. Vital signs: Blood pressure is 170/80. HEENT: Negative. Neck: Supple. No bruit. Chest: Revealed wheezing throughout. No rales. Cardiac: Revealed a regular rhythm and rate without murmurs, gallops, or rubs. Abdomen: Benign. Extremities: Revealed no clubbing, cyanosis, or edema. Diagnostic Data: Hemoglobin 9.9. D-dimer was 175. BNP was 35,000. Troponin 0.06. Impression And Plan: 1.Vtotw-[id number]-cswjhuu congestive heart failure, that is systolic. 2.Chronic obstructive pulmonary disease exacerbation. 3.History of brain aneurysm. 4.Atrial fibrillation, that has resolved. 5.History of prostate cancer. 6.Hypertension, poorly controlled. 7.Dyslipidemia. 8.History of coronary artery disease, status post percutaneous coronary intervention. I agree with his present regimen. His discharge medication should be the same as he was discharged o n last time. There is no need to repeat any cardiac workup. He can go home whenever it is okay with Dr. Rodriguez. I will reiterate that the patient has a very difficult social situation. He is homeles s. It is very sad to see a patient of his age without any social help. ARBEN Voice ID: [id number] Report ID: [id number]
--- NOTE | 2017-12-04 16:48 | EKG ---
Test Date: 2017-12-03 Test Time: 22:55:43 Damage Cutter: TL MEASUREMENT RESULTS: Intervals: Rate: 85 WV: 142 QRSD: 114 QT: 408 QTc: 485 [place]: P: 83 WV: 142 QRS: 89 T: 55 INTERPRETIVE STATEMENTS: Normal sinus rhythm Minimal voltage criteria for LVH, may be normal variant Prolonged QT Abnormal ECG Compared to ECG 11/16/2017 06:43:25 ST (T wave) deviation no longer present Electronically Signed On 12-04-17 16:44:47 CDT by Cyrus Porter
[2017-12-04] MEDS ORDERED: ATORVASTATIN 40 MG TAB PO SCH (21:00)
[2017-12-04] MEDS: FERROUS SULFATE 325 MG TAB PO SCH (21:32)
[2017-12-05 06:03] LABS: Absolute Lymphocytes (CBC) 1.8 K/uL (0.7-4.9); Absolute Monocytes 1.7 K/uL (0.1-1.3); Absolute Neutrophil 5.1 K/uL (1.8-8.0); Basophils % 0.8 % (0-1.3); Eosinophils % 4.4 % (0-4.4); Hematocrit 34.7 % (39.6-49.0); Lymphocytes % 19.8 % (15.3-44.8); MCH 18.1 pg (27.0-35.0); MCV 60.3 fL (80-100); MPV 9.4 fL (7.6-11.3); Monocytes % 18.9 % (3.3-12.3); RBC Red Blood Cell Count 5.75 M/uL (4.33-5.43)
[2017-12-05 06:17] LABS: Potassium 4.4 mmol/L (3.5-5.1); Troponin I 0.04 ng/mL (0.0-0.045)
[2017-12-05] MEDS: INSULIN -REGULAR HUMAN 50 UNIT/0.5 ML ML SQ SCH ×2 (07:30→11:30)
[2017-12-05] MEDS: ARFORMOTEROL TARTRATE 15 MCG/2 ML VIAL.NEB NEB SCH (08:05)
--- NOTE | 2017-12-05 08:43 | RAD REPORT ---
EXAM DESCRIPTION: Neo Pa And Lat (2 Views)12/05/2017 6:51 am CLINICAL HISTORY: Shortness of breath COMPARISON: 12/04/2017 FINDINGS: Mild bilateral pulmonary interstitial lung opacities are unchanged. . The heart is moderat jody enlarged IMPRESSION: Mild CHF
[2017-12-05] MEDS ORDERED: FUROSEMIDE 40 MG TABLET PO SCH (09:00)
[2017-12-05] MEDS ORDERED: HYDRALAZINE HCL 25 MG TABLET PO SCH (09:00)
[2017-12-05 09:11] VITALS: O2SAT 96
--- NOTE | 2017-12-05 10:04 | P.DS ---
Admission Date: 12/04/17 Discharge Date: 12/05/17 Primary Care Provider: None(Homeless) Disposition: ROUTINE DISCHARGE Discharge Condition: GOOD Reason for Admission: Acute on chronic systolic CHF Consultations: Cardiology-Dr. Porter Procedures: CT angiogram: COMPARISON: Chest films same date, CT chest without contrast August 2016 TECHNIQUE: Dynamically enhanced 3 mm thick images of the chest were obtained during administration of approximately 150mL Isovue 370 IV contrast. Coronal and oblique MIP reconstruction images were generated and reviewed. Exam utilizes a protocol to evaluate the pulmonary arterial tree. All CT scans are performed using dose optimization technique as appropriate and may include automated exposure control or mA/KV adjustment according to patient size. FINDINGS: No pulmonary emboli are identified. The aorta as imaged shows no acute or suspicious finding. No pericardial thickening or effusion. No focal mass or consolidation. Lung parenchyma is prominent. Minimal bilateral pleural effusions are present. Nonspecific mediastinal lymph nodes are present probably reactive. These are slightly more prominent than seen in 2017. Small hilar lymph nodes are present. No chest wall masses or abnormal axillary lymphadenopathy. Prominent cardiomegaly present increased from the CT comparison. No pericardial thickening or effusion. Lung parenchymal and far peripheral branch assessment is limited by respiratory motion artifact. IMPRESSION: No pulmonary emboli identified. Significant cardiomegaly with small bilateral pleural effusions and prominent lung markings consistent with an acute or chronic CHF presentation. Mediastinal and hilar lymph nodes are increased slightly from 2017, still favored to be reactive. Impression: Shortness of breath secondary to acute on chronic systolic congestive heart failure with EF of 30% with CT scan showing small bilateral pleural effusion and poor compliance with medication/follow up COPD, stable Hypertension, stable CAD with prior heart catheterization July 2017 showing LAD stent widely patent. LAD had 50% stenosis throughout it. Circumflex with 50% stenosis. Right Coronary diffusely diseased in the mid to distal junction with old stent. 80% in stent stenosis just distal to the stenosis of 50% narrowing. Tobacco abuse Hyperlipidemia Diabetes mellitus type 2 diet controlled, A1c 6.3 Iron deficiency anemia Small bilateral pleural effusion secondary to CHF Non compliance with follow up and medication Brief History of Present Illness: 67-year-old male presented emergency room with shortness of breath. Patient with history of systolic CHF, CAD, hypertension, hyperlipidemia, diabetes mellitus and poor compliance. Patient is homeless. He ran out of medications several weeks ago. Patient evaluated the emergency room. Patient found to have acute on chronic systolic CHF. Patient admitted for treatment. Hospital Course: Patient presented with shortness of breath secondary to acute on chronic systolic congestive heart failure with EF of 30%. CT scan revealed small bilateral pleural effusions secondary to CHF. Patient with history of poor compliance with medication and follow up. Patient is homeless. Patient was treated in the hospital with diuretic therapy. Patient seen by Cardiology. No intervention was required. At discharge he will continue with Lasix 40 mg 1 pill once daily. Recommendation is to continue with a 1500 cc per day fluid restriction and low-salt diet. Social work provided information on patient assistance and a list of PCPs to establish care. Patient is to arrange for this as an outpatient. Compliance with follow up and medication addressed in detail. Patient understands. Patient with COPD. This remained stable during his stay. At discharge she will continue with Airduo one puff twice daily and Pro air puffs 3 times a day as needed for shortness of breath. Patient may follow up with pulmonology as an outpatient to further monitor. Patient has hypertension. Medications restarted. At discharge he will continue with lisinopril 10 mg 1 pill daily and metoprolol 50 mg 1 pill twice daily. Recommendation is to maintain blood pressures less 150/80. Further adjustment can be done by his PCP. Patient has history of CAD with prior heart catheterization done July 2017. Heart catheterization showed LAD stent widely patent. LAD had 50% stenosis throughout it. Circumflex with 50% stenosis. Right Coronary diffusely diseased in the mid to distal junction with old stent. 80% in stent stenosis just distal to the stenosis of 50% narrowing. Cardiology recommends no further intervention. Patient will need to continue with aspirin 81 mg daily and Plavix 75 mg daily. Recommendation is to follow up with cardiology as an outpatient to further monitor. Patient has hyperlipidemia. Patient will continue with Lipitor 40 mg 1 pill once daily. Patient has diabetes mellitus type 2, diet controlled. A1c 6.3. Patient will continue with his current diet. Recommendation is to maintain blood sugars less 140 fasting and less than 200 after meals. Further adjustment can be done by his PCP. Patient has iron deficiency anemia. Patient will continue with iron supplementation 325 mg 1 pill daily. Recommendation to recheck lab-CBC in 2-4 weeks to monitor his progress. Tobacco cessation education will be provided prior to discharge. Education on compliance with medication and follow up address in detail. senior web services developer will provide information on patient assistance and list of providers in the area to establish care. Will try to arrange for him to get affordable medication so that this can be continued and prevent further hospitalizations. Vital Signs/Physical Exam: Temp Pulse Resp BP Pulse Ox 97.6 F 60 16 146/91 H 98 12/05/17 07:53 12/05/17 07:53 12/05/17 07:53 12/05/17 07:53 12/05/17 07:53 General: Alert, In no apparent distress, Oriented x3, Cooperative HEENT: Atraumatic Neck: Supple Respiratory: Clear to auscultation bilaterally, Normal air movement Cardiovascular: Normal pulses, Regular rate/rhythm Gastrointestinal: Normal bowel sounds, Soft and benign, Non-distended, No tenderness, No masses, No rebound, No guarding Musculoskeletal: No erythema, No tenderness, No warmth Integumentary: No tenderness/swelling, No erythema, No warmth, No cyanosis Neurological: Normal speech, Normal strength at 5/5 x4 extr, Normal tone, Normal affect Laboratory Data at Discharge: WBC 9.0 K/uL (4.3-10.9) D 12/05/17 05:08 Hgb 10.4 g/dL (13.6-17.9) L 12/05/17 05:08 Hct 34.7 % (39.6-49.0) L 12/05/17 05:08 Plt Count 225 K/uL (152-406) 12/05/17 05:08 PT 17.0 SECONDS (9.5-12.5) H 12/03/17 22:40 INR 1.44 12/03/17 22:40 APTT 28.9 SECONDS (24.3-36.9) 12/03/17 22:40 Sodium 140 mmol/L (136-145) 12/05/17 05:08 Potassium 4.4 mmol/L (3.5-5.1) 12/05/17 05:08 BUN 27 mg/dL (7-18) H 12/05/17 05:08 Creatinine 1.40 mg/dL (0.55-1.3) H 12/05/17 05:08 Glucose 109 mg/dL (74-106) H 12/05/17 05:08 Magnesium 1.9 mg/dL (1.8-2.4) 12/03/17 22:40 Total Bilirubin 0.8 mg/dL (0.2-1.0) 12/03/17 22:40 AST 28 U/L (15-37) 12/03/17 22:40 ALT 32 U/L (12-78) 12/03/17 22:40 Alkaline Phosphatase 84 U/L (45-117) 12/03/17 22:40 Troponin I 0.04 ng/mL (0.0-0.045) 12/05/17 05:08 Lipase 91 U/L (73-393) 12/03/17 22:40 Home Medications: Albuterol Sulfate [Proair Hfa] 8.5 gm IH TID PRN #1 hfa.aer.ad 12/05/17 Aspirin [Aspirin EC 81 MG] 81 mg PO DAILY #90 tablet. 12/05/17 Atorvastatin Calcium [Lipitor] 40 mg PO BEDTIME #30 tab 12/05/17 Clopidogrel Bisulfate [Plavix*] 75 mg PO DAILY #30 tablet 12/05/17 Ferrous Sulfate [Ferrous Sulfate*] 325 mg PO DAILY #30 tab 12/05/17 Fluticasone/Salmeterol [Airduo Respiclick 113-14 Mcg] 1 each IH BID #1 aer.pow.ba 12/05/17 Furosemide [Lasix*] 40 mg PO DAILY #30 tab 12/05/17 Lisinopril [Prinivil*] 10 mg PO DAILY #30 tab 12/05/17 Metoprolol Tartrate [Lopressor*] 50 mg PO BID #60 tab 12/05/17 New Medications: Albuterol Sulfate [Proair Hfa] 8.5 gm IH TID PRN #1 hfa.aer.ad PRN Reason: Shortness Of Breath Aspirin [Aspirin EC 81 MG] 81 mg PO DAILY #90 tablet. Atorvastatin Calcium [Lipitor] 40 mg PO BEDTIME #30 tab Clopidogrel Bisulfate [Plavix*] 75 mg PO DAILY #30 tablet Ferrous Sulfate [Ferrous Sulfate*] 325 mg PO DAILY #30 tab Fluticasone/Salmeterol [Airduo Respiclick 113-14 Mcg] 1 each IH BID #1 aer.pow.ba Furosemide [Lasix*] 40 mg PO DAILY #30 tab Lisinopril [Prinivil*] 10 mg PO DAILY #30 tab Metoprolol Tartrate [Lopressor*] 50 mg PO BID #60 tab Patient Discharge Instructions: 1. Patient will need to establish care with a local PCP to continue his care. 2. Patient presented with shortness of breath secondary to acute on chronic systolic congestive heart failure with EF of 30%. CT scan revealed small bilateral pleural effusions secondary to CHF. Patient with history of poor compliance with medication and follow up. Patient is homeless. Patient was treated in the hospital with diuretic therapy. Patient seen by Cardiology. No intervention was required. At discharge he will continue with Lasix 40 mg 1 pill once daily. Recommendation is to continue with a 1500 cc per day fluid restriction and low-salt diet. Social work provided information on patient assistance and a list of PCPs to establish care. Patient is to arrange for this as an outpatient. Compliance with follow up and medication addressed in detail. Patient understands. 3. Patient with COPD. This remained stable during his stay. At discharge she will continue with Airduo one puff twice daily and Pro air puffs 3 times a day as needed for shortness of breath. Patient may follow up with pulmonology as an outpatient to further monitor. 4. Patient has hypertension. Medications restarted. At discharge he will continue with lisinopril 10 mg 1 pill daily and metoprolol 50 mg 1 pill twice daily. Recommendation is to maintain blood pressures less 150/ 80. Further adjustment can be done by his PCP. 5. Patient has history of CAD with prior heart catheterization done July 2017. Heart catheterization showed LAD stent widely patent. LAD had 50% stenosis throughout it. Circumflex with 50 % stenosis. Right Coronary diffusely diseased in the mid to distal junction with old stent. 80% in stent stenosis just distal to the stenosis of 50% narrowing. Cardiology recommends no further intervention. Patient will need to continue with aspirin 81 mg daily and Plavix 75 mg daily. Recommendation is to follow up with cardiology as an outpatient to further monitor. 6. Patient has hyperlipidemia. Patient will continue with Lipitor 40 mg 1 pill once daily. 7. Patient has diabetes mellitus type 2, diet controlled. A1c 6.3. Patient will continue with his current diet. Recommendation is to maintain blood sugars less 140 fasting and less than 200 after meals. Further adjustment can be done by his PCP. 8. Patient has iron deficiency anemia. Patient will continue with iron supplementation 325 mg 1 pill daily. Recommendation to recheck lab-CBC in 2-4 weeks to monitor his progress. 9. Tobacco cessation education will be provided prior to discharge. 10. Education on compliance with medication and follow up address in detail. senior web services developer will provide information on patient assistance and list of providers in the area to establish care. Will try to arrange for him to get affordable medication so that this can be continued and prevent further hospitalizations. Diet: AHA Activity: Fall precautions Time spent managing pt's care (in minutes): 55
[2017-12-05] MEDS: CLOPIDOGREL 75 MG TABLET PO SCH (10:12)
[2017-12-05] MEDS: ASPIRIN EC 81 MG TAB PO SCH (10:12)
[2017-12-05] MEDS: FERROUS SULFATE 325 MG TAB PO SCH (10:13)
[2017-12-05] MEDS: METOPROLOL TAR 50 MG TAB PO SCH (10:13)
[2017-12-05] MEDS: LISINOPRIL 10 MG TAB PO SCH (10:13)
[2017-12-05] MEDS: ENOXAPARIN 40 MG/0.4 ML SQ SCH (10:13)
[2017-12-05 10:17] LABS: Blood Morphology Comment NOTED (NOT SEEN); Platelet Estimate ADEQ; Urine White Blood Cell Casts OK
[2017-12-05 10:18] LABS: Anisocytosis 1+; Hypochromasia 2+
[2017-12-05 12:07] VITALS: BP 154/83; TEMP 97
== END 2017-12-05 13:58 | disposition home or self-care (01) ==
LOC: ER 21:01 → ERHOLD 12-04 03:13 → 4TH 12-04 03:51
PROVIDERS: ADMIT Internal Medicine; ATTEND Internal Medicine
DX: I11.0 Hypertensive heart disease with heart failure (principal); I50.23 Acute on chronic systolic (congestive) heart failure; Z59.0 Homelessness; J44.9 Chronic obstructive pulmonary disease, unspecified; I25.10 Atherosclerotic heart disease of native coronary artery without angina pectoris; E78.5 Hyperlipidemia, unspecified; E11.9 Type 2 diabetes mellitus without complications; F17.210 Nicotine dependence, cigarettes, uncomplicated; Z95.5 Presence of coronary angioplasty implant and graft; Z91.14 Patient's other noncompliance with medication regimen; D50.9 Iron deficiency anemia, unspecified; Z85.46 Personal history of malignant neoplasm of prostate
CPT/HCPCS: 36415 ×2; 71045; 71046; 71275; 80048 ×2; 80076; 81003; 82550; 82553; 82962 ×6; 83036; 83690; 83735; 83880; 84484 ×3; 85025 ×2; 85379; 85610; 85730; 87040 ×2; 87205; 93005; 94640; 94760 ×3; 96365; 96375; 99285; G0378 ×2; J0360; J1650 ×2; J7605 ×3; Q9967

== ENCOUNTER 2018-01-21 16:55 | Observation (INO) | payer OTHER ==
--- OUTSIDE RECORDS SUMMARY | 2018-01-21 16:56 | XMS REPORT ---
:1950 Author Organization [facility] Address [address] [place] [address] Care Team Providers Name Role Phone Unavailable Unavailable Unavailable Payers Payer Name Policy Type Policy Number Effective Date Expiration Date Problems This patient has no known problems. Allergies, Adverse Reactions, Alerts Allergy Name Allergy Status Severity Reaction(s) Onset Inactive Treating Comments Type Date Date Clinician diphenhydramine DA Active U 806 00:00: 00 Medications This patient has no known medications.
--- NOTE | 2018-01-21 17:46 | ER ---
Nurse's Notes [facility] Name: Mark Terrell Age: 67 yrs Sex: Male : 1950 Arrival Date: 01/21/2018 Time: 16:55 Bed 5 Private MD: None, None Diagnosis: Chest pain, unspecified;Chronic obstructive pulmonary disease with (acute) exacerbation;Unspecified combined systolic (congestive) and diastolic (congestive) heart failure;Unspecified kidney failure;Essential (primary) hypertension Presentation: 01/21 16:56 Presenting complaint: EMS states: [place], pt reports being homeless sg at this time, began experiencing CP and SOB, that started about 30 mins ago, administered Albuterol Atrovent x1, 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 Transition of care: patient was not received from another setting of care. Onset of symptoms was January 21, 2018. Risk Assessment: Do you want to hurt yourself or someone else? Patient reports no desire to harm self or others. Initial Sepsis Screen: Does the patient meet any 2 criteria? No. Patient's initial sepsis screen is negative. Does the patient have a suspected source of infection? No. Patient's initial sepsis screen is negative. Care prior to arrival: IV initiated. 20 GA, in the left antecubital area, Glucose check: 144 Med neb given. 16:56 Method Of Arrival: EMS: [facility] sg 16:56 Acuity: ARIEL 3 sg Historical: - Allergies: 17:00 Benadryl; sg - PMHx: 17:00 Aneurysm; BRAIN; Atrial Fib; Cancer; PROSTATE; CHF; COPD; Hypertension; Prostate Cancer;sg - PSHx: 17:00 Brain aneurysm clip; Prostatectomy; cardiac stent x3; sg - Immunization history:: Adult Immunizations unknown. - Social history:: Smoking status: Patient uses tobacco products, smokes one pack cigarettes per day. - Ebola Screening: : Patient negative for fever greater than or equal to 101.5 degrees Fahrenheit, and additional compatible Ebola Virus Disease symptoms Patient denies exposure to infectious person Patient denies travel to an Ebola-affected area in the 21 days before illness onset No symptoms or risks identified at this time. Screenin:10 Abuse screen: Denies threats or abuse. Denies injuries from another. Nutritional sg screening: No deficits noted. Tuberculosis screening: No symptoms or risk factors identified. Never had TB. Fall Risk None identified. Assessment: 17:10 General: Appears in no apparent distress. comfortable, well groomed, well developed, sg well nourished, Behavior is calm, cooperative, appropriate for age. Pain: Complains of pain in chest Pain does not radiate. Quality of pain is described as aching, sharp, stabbing. Neuro: Level of Consciousness is awake, alert, obeys commands, Oriented to person, place, time, situation, Hotel Baggage Handler are equal bilaterally Moves all extremities. Full function Gait is steady, Speech is normal, Facial symmetry appears normal. Cardiovascular: Patient's skin is warm and dry. Chest pain is denied. Respiratory: Airway is patent Respiratory effort is even, unlabored, Respiratory pattern is regular, symmetrical, Breath sounds with wheezes. GI: Abdomen is round non-distended, Reports normal bowel habits, tolerance of fluids, tolerance of food. : No signs and/or symptoms were reported regarding the genitourinary system. EENT: No signs and/or symptoms were reported regarding the EENT system. Derm: Skin is pink, warm \T\ dry. Musculoskeletal: Circulation, motion, and sensation intact. Range of motion: intact in all extremities, Swelling absent. 19:15 General: Appears in no apparent distress. comfortable, Behavior is calm, cooperative, rr5 appropriate for age. Pain: Denies pain. Pain:. Neuro: Level of Consciousness is awake, alert, obeys commands, Oriented to person, place, time, situation, Hotel Baggage Handler are. Cardiovascular: Capillary refill < 3 seconds Patient's skin is warm and dry. Chest pain is denied. Respiratory: Airway is patent Respiratory effort is even, unlabored, Respiratory pattern is regular, symmetrical. GI: Abdomen is Reports normal bowel habits. : No signs and/or symptoms were reported regarding the genitourinary system. EENT: No signs and/or symptoms were reported regarding the EENT system. Derm: Skin is intact, Skin is dry, Skin is pink, warm \T\ dry. Musculoskeletal: Circulation, motion, and sensation intact. Capillary refill < 3 seconds, Range of motion:. 19:15 Pain: Pain began began 1630H today. rr5 20:00 Reassessment: Patient appears in no apparent distress at this time. Patient is alert, rr5 oriented x 3, equal unlabored respirations, skin warm/dry/pink. BP 190/93mmhg dr. catalan informed with order and carried out. handover to floor, no complaints made from the patient. Vital Signs: 16:55 BP 173 / 84; Pulse 73 MON; Resp 18; Temp 97.7; Pulse Ox 100% on 100% Nebulizer Mask; sg Weight 83.91 kg (R); Height 5 ft. 9 in. (175.26 cm); Pain 8/10; 19:08 BP 171 / 86; Pulse 73; Resp 18; Pulse Ox 96% ; ea 19:57 BP 190 / 93; Pulse 73; Resp 18; Temp 98.7(TE); Pulse Ox 99% on R/A; Pain 0/10; rr5 16:55 Body Mass Index 27.32 (83.91 kg, 175.26 cm) sg 16:55 Sinus Rhythm sg ED Course: 16:55 Patient arrived in ED. sg 16:55 None, None is Private Physician. sg 16:57 Triage completed. sg 16:58 Arm band placed on. sg 17:00 EKG done, by hydrological technical officer. reviewed by Satish Catalan MD. sm3 17:21 Satish Catalan MD is Attending Physician. mónica 17:40 Arya Quiroz MD is Hospitalizing Provider. mónica 17:46 Dilma Michel MD is Hospitalizing Provider. mónica 17:53 Keith Gonsalves, LASHAY is Primary Nurse. sg 18:20 XRAY Chest (1 view) In Process Unspecified. EDMS 19:15 Patient has correct armband on for positive identification. Bed in low position. rr5 surveillance monitor on. Pulse ox on. NIBP on. 19:15 No provider procedures requiring assistance completed. Patient admitted, IV remains in rr5 place. Patient maintains SpO2 saturation greater than 95% on room air. Administered Medications: Discontinued: NS 0.9% 1000 ml IV at 125 ml/hr continuous 17:53 Drug: Xopenex 1.25 mg Route: Inhalation; sg 18:40 Follow up: Response: No adverse reaction hb 17:54 Drug: Aspirin 162 mg Route: PO; sg 18:43 Follow up: Response: No adverse reaction hb 17:54 Drug: NS 0.9% 1000 ml Route: IV; Rate: 125 ml/hr; Site: left antecubital; sg 19:32 Follow up: Response: No adverse reaction; IV Status: Order to discontinue infusion rr5 17:54 Drug: SOLU-Medrol 125 mg Route: IVP; Site: left antecubital; sg 19:04 Follow up: Response: No adverse reaction hb 19:03 Drug: Lasix 40 mg Route: IVP; Site: left antecubital; hb 19:31 Follow up: Response: No adverse reaction; Other; for admission rr5 19:03 Drug: Lovenox 1 mg/kg Route: Sub-Q; Site: abdomen; hb 19:30 Follow up: Response: No adverse reaction; Other; admitted rr5 20:05 Drug: hydrALAZINE 5 mg {Note: bp190/93.} Route: IV; Rate: per protocol; Site: left rr5 forearm; 20:13 Follow up: Response: Other; IV Status: Infusion continued upon admission; on admission rr5 20:06 Drug: Lopressor (metoprolol TARTRATE) 50 mg Route: PO; rr5 20:14 Follow up: Response: Other; follow up on admission rr5 20:06 Drug: hydrALAZINE 10 mg {Note: bp 190/93.} Route: PO; rr5 20:12 Follow up: Response: Other; medication given upon admission rr5 Intake: Outcome: 17:46 Decision to Hospitalize by Provider. mónica 20:10 Admitted to Tele accompanied by venice, via wheelchair, Report called to mariya METZ rr5 20:10 Condition: stable rr5 20:10 Instructed on the need for admit. 20:21 Patient left the ED. rr5 Signatures: Dispatcher [employer] Keith Nelson RN RN sg Anderson, Corey, MD MD cha Baxter, Heather, RN RN Ana Camacho RN RN ea Montes, Shakira [facility] Daron Garcia RN RN rr5
--- NOTE | 2018-01-21 17:46 | EDPHYS ---
Physician Documentation [facility] Name: Mark Terrell Age: 67 yrs Sex: Male : 1950 Arrival Date: 01/21/2018 Time: 16:55 Bed 5 Private MD: None, None ED Physician Satish Catalan HPI: 01/21 17:36 This 67 yrs old Male presents to ER via EMS with complaints of Chest Pain > mónica 29 y/o, Shortness Of Breath. 17:36 The patient or guardian reports chest pain that is located primarily in the substernal mónica area. Onset: just prior to arrival. The pain does not radiate. Associated signs and symptoms: The patient has no apparent associated signs or symptoms. The chest pain is described as aching. The patient has experienced similar episodes in the past, multiple times. Historical: - Allergies: 17:00 Benadryl; sg - PMHx: 17:00 Aneurysm; BRAIN; Atrial Fib; Cancer; PROSTATE; CHF; COPD; Hypertension; Prostate Cancer;sg - PSHx: 17:00 Brain aneurysm clip; Prostatectomy; cardiac stent x3; sg - Immunization history:: Adult Immunizations unknown. - Social history:: Smoking status: Patient uses tobacco products, smokes one pack cigarettes per day. - Ebola Screening: : Patient negative for fever greater than or equal to 101.5 degrees Fahrenheit, and additional compatible Ebola Virus Disease symptoms Patient denies exposure to infectious person Patient denies travel to an Ebola-affected area in the 21 days before illness onset No symptoms or risks identified at this time. ROS: 17:37 Constitutional: Negative for fever, chills, and weight loss, Eyes: Negative for injury, mónica pain, redness, and discharge, ENT: Negative for injury, pain, and discharge, Neck: Negative for injury, pain, and swelling, Abdomen/GI: Negative for abdominal pain, nausea, vomiting, diarrhea, and constipation, Back: Negative for injury and pain, : Negative for injury, bleeding, discharge, and swelling, MS/Extremity: Negative for injury and deformity, Skin: Negative for injury, rash, and discoloration, Neuro: Negative for headache, weakness, numbness, tingling, and seizure, Psych: Negative for depression, anxiety, suicide ideation, homicidal ideation, and hallucinations, Allergy/Immunology: Negative for hives, rash, and allergies, Endocrine: Negative for neck swelling, polydipsia, polyuria, polyphagia, and marked weight changes, Hematologic/Lymphatic: Negative for swollen nodes, abnormal bleeding, and unusual bruising. 17:37 Cardiovascular: Positive for chest pain. 17:37 Respiratory: Positive for cough, shortness of breath, wheezing, expiratory. Exam: 17:37 Constitutional: This is a well developed, well nourished patient who is awake, alert, mónica and in no acute distress. Head/Face: Normocephalic, atraumatic. Eyes: Pupils equal round and reactive to light, extra-ocular motions intact. Lids and lashes normal. Conjunctiva and sclera are non-icteric and not injected. Cornea within normal limits. Periorbital areas with no swelling, redness, or edema. ENT: Nares patent. No nasal discharge, no septal abnormalities noted. Tympanic membranes are normal and external auditory canals are clear. Oropharynx with no redness, swelling, or masses, exudates, or evidence of obstruction, uvula midline. Mucous membranes moist. Neck: Trachea midline, no thyromegaly or masses palpated, and no cervical lymphadenopathy. Supple, full range of motion without nuchal rigidity, or vertebral point tenderness. No Meningismus. Chest/axilla: Normal chest wall appearance and motion. Nontender with no deformity. No lesions are appreciated. Cardiovascular: Regular rate and rhythm with a normal S1 and S2. No gallops, murmurs, or rubs. Normal PMI, no JVD. No pulse deficits. Abdomen/GI: Soft, non-tender, with normal bowel sounds. No distension or tympany. No guarding or rebound. No evidence of tenderness throughout. Back: No spinal tenderness. No costovertebral tenderness. Full range of motion. Male : Normal genitalia with no discharge or lesions. Skin: Warm, dry with normal turgor. Normal color with no rashes, no lesions, and no evidence of cellulitis. MS/ Extremity: Pulses equal, no cyanosis. Neurovascular intact. Full, normal range of motion. Neuro: Awake and alert, GCS 15, oriented to person, place, time, and situation. Cranial nerves II-XII grossly intact. Motor strength 5/5 in all extremities. Sensory grossly intact. Cerebellar exam normal. Normal gait. Psych: Awake, alert, with orientation to person, place and time. Behavior, mood, and affect are within normal limits. 17:37 Respiratory: the patient does not display signs of respiratory distress, Respirations: normal, Breath sounds: decreased breath sounds, rhonchi, wheezing: expiratory 17:37 Musculoskeletal/extremity: DVT Exam: No signs of deep vein thrombosis. no pain, no swelling, no tenderness, negative Homans' sign noted on exam, no appreciated bluish discoloration, no erythema, no increased warmth. Vital Signs: 16:55 BP 173 / 84; Pulse 73 MON; Resp 18; Temp 97.7; Pulse Ox 100% on 100% Nebulizer Mask; sg Weight 83.91 kg (R); Height 5 ft. 9 in. (175.26 cm); Pain 8/10; 19:08 BP 171 / 86; Pulse 73; Resp 18; Pulse Ox 96% ; ea 19:57 BP 190 / 93; Pulse 73; Resp 18; Temp 98.7(TE); Pulse Ox 99% on R/A; Pain 0/10; rr5 16:55 Body Mass Index 27.32 (83.91 kg, 175.26 cm) sg 16:55 Sinus Rhythm sg MDM: 17:21 Patient medically screened. [facility] 17:39 Data reviewed: vital signs, nurses notes, lab test result(s), EKG, radiologic studies, mónica plain films. 01/21 17:36 Order name: Basic Metabolic Panel; Complete Time: 18:18 [facility] 01/21 17:36 Order name: CBC with Diff; Complete Time: 19:13 [facility] 01/21 17:36 Order name: LFT's; Complete Time: 18:18 [facility] 01/21 17:36 Order name: Magnesium; Complete Time: 18:19 [facility] 01/21 17:36 Order name: NT PRO-BNP; Complete Time: 18:18 [facility] 01/21 17:36 Order name: PT-INR; Complete Time: 18:18 [facility] 01/21 17:36 Order name: Troponin (emerg Dept Use Only); Complete Time: 18:19 [facility] 01/21 17:36 Order name: XRAY Chest (1 view); Complete Time: 19:13 [facility] 01/21 18:03 Order name: CBC Smear Scan; Complete Time: 19:13 EDMS 01/21 17:36 Order name: EKG; Complete Time: 17:36 [facility] 01/21 17:36 Order name: Cardiac monitoring; Complete Time: 17:39 [facility] 01/21 17:36 Order name: EKG - Nurse/Tech; Complete Time: 17:39 [facility] 01/21 17:36 Order name: IV Saline Lock; Complete Time: 17:39 [facility] 01/21 17:36 Order name: Labs collected and sent; Complete Time: 17:39 [facility] 01/21 17:36 Order name: O2 Per Protocol; Complete Time: 17:39 [facility] 01/21 17:36 Order name: O2 Sat Monitoring; Complete Time: 17:39 [facility] Administered Medications: Discontinued: NS 0.9% 1000 ml IV at 125 ml/hr continuous 17:53 Drug: Xopenex 1.25 mg Route: Inhalation; sg 18:40 Follow up: Response: No adverse reaction hb 17:54 Drug: Aspirin 162 mg Route: PO; sg 18:43 Follow up: Response: No adverse reaction hb 17:54 Drug: NS 0.9% 1000 ml Route: IV; Rate: 125 ml/hr; Site: left antecubital; sg 19:32 Follow up: Response: No adverse reaction; IV Status: Order to discontinue infusion rr5 17:54 Drug: SOLU-Medrol 125 mg Route: IVP; Site: left antecubital; sg 19:04 Follow up: Response: No adverse reaction hb 19:03 Drug: Lasix 40 mg Route: IVP; Site: left antecubital; hb 19:31 Follow up: Response: No adverse reaction; Other; for admission rr5 19:03 Drug: Lovenox 1 mg/kg Route: Sub-Q; Site: abdomen; hb 19:30 Follow up: Response: No adverse reaction; Other; admitted rr5 20:05 Drug: hydrALAZINE 5 mg {Note: bp190/93.} Route: IV; Rate: per protocol; Site: left rr5 forearm; 20:13 Follow up: Response: Other; IV Status: Infusion continued upon admission; on admission rr5 20:06 Drug: Lopressor (metoprolol TARTRATE) 50 mg Route: PO; rr5 20:14 Follow up: Response: Other; follow up on admission rr5 20:06 Drug: hydrALAZINE 10 mg {Note: bp 190/93.} Route: PO; rr5 20:12 Follow up: Response: Other; medication given upon admission rr5 Disposition: 01/21/18 17:46 Hospitalization ordered by Dilma Michel for Observation. Preliminary diagnosis are Chest pain, unspecified, Chronic obstructive pulmonary disease with (acute) exacerbation, Unspecified combined systolic (congestive) and diastolic (congestive) heart failure, Unspecified kidney failure, Essential (primary) hypertension. - Bed requested for Telemetry/MedSurg (observation). - Status is Observation. rr5 - Condition is Stable. - Problem is new. - Symptoms have improved. UTI on Admission? No Signatures: Dispatcher [employer] EDMS Jeri Ospina RN RN dw Gay, Steven, RN RN sg Anderson, Corey, MD MD cha Baxter, Heather, RN RN Daron Garcia RN RN rr5 Corrections: (The following items were deleted from the chart) 17:46 17:46 Hospitalization Ordered by Arya Quiroz MD for Observation. Preliminary diagnosis mónica is Chest pain, unspecified; Chronic obstructive pulmonary disease with (acute) exacerbation. Bed requested for Telemetry/MedSurg (observation). Status is Observation. Condition is Stable. Problem is new. Symptoms have improved. UTI on Admission? No. mónica 18:20 17:46 01/21/2018 17:46 Hospitalization Ordered by Dilma Michel MD for Observation. mónica Preliminary diagnosis is Chest pain, unspecified; Chronic obstructive pulmonary disease with (acute) exacerbation. Bed requested for Telemetry/MedSurg (observation). Status is Observation. Condition is Stable. Problem is new. Symptoms have improved. UTI on Admission? No. mónica 18:22 18:20 01/21/2018 17:46 Hospitalization Ordered by Dilma Michel MD for Observation. mónica Preliminary diagnosis is Chest pain, unspecified; Chronic obstructive pulmonary disease with (acute) exacerbation; Unspecified combined systolic (congestive) and diastolic (congestive) heart failure. Bed requested for Telemetry/MedSurg (observation). Status is Observation. Condition is Stable. Problem is new. Symptoms have improved. UTI on Admission? No. mónica 18:32 18:22 01/21/2018 17:46 Hospitalization Ordered by Dilma Michel MD for Observation. dw Preliminary diagnosis is Chest pain, unspecified; Chronic obstructive pulmonary disease with (acute) exacerbation; Unspecified combined systolic (congestive) and diastolic (congestive) heart failure; Unspecified kidney failure. Bed requested for Telemetry/MedSurg (observation). Status is Observation. Condition is Stable. Problem is new. Symptoms have improved. UTI on Admission? No. mónica 20: 18:32 01/21/2018 17:46 Hospitalization Ordered by Dilma Michel MD for Observation. mónica Preliminary diagnosis is Chest pain, unspecified; Chronic obstructive pulmonary disease with (acute) exacerbation; Unspecified combined systolic (congestive) and diastolic (congestive) heart failure; Unspecified kidney failure. Bed requested for Telemetry/MedSurg (observation). Status is Observation. Condition is Stable. Problem is new. Symptoms have improved. UTI on Admission? No. dw 20:21 20:01 01/21/2018 17:46 Hospitalization Ordered by Dilma Michel MD for Observation. rr5 Preliminary diagnosis is Chest pain, unspecified; Chronic obstructive pulmonary disease with (acute) exacerbation; Unspecified combined systolic (congestive) and diastolic (congestive) heart failure; Unspecified kidney failure; Essential (primary) hypertension. Bed requested for Telemetry/MedSurg (observation). Status is Observation. Condition is Stable. Problem is new. Symptoms have improved. UTI on Admission? No. mónica
[2018-01-21] MEDS ORDERED: METHYLPREDNISOLONE 125 MG INJ ONE (17:49)
[2018-01-21] MEDS ORDERED: ASPIRIN 81 MG CHEWABLE TABLET ONE (17:49)
[2018-01-21] MEDS ORDERED: LEVALBUTEROL 1.25 MG/3 ML NEB ONE (17:50)
[2018-01-21] MEDS ORDERED: NA CHLORIDE 0.9% 1,000 ML ONE (17:50)
[2018-01-21 17:57] LABS: Protime INR 1.14
[2018-01-21 17:58] LABS: Absolute Lymphocytes (CBC) 2.2 K/uL (0.7-4.9); Absolute Monocytes 1.5 K/uL (0.1-1.3); Basophils % 0.8 % (0-1.3); Eosinophils % 2.3 % (0-4.4); Hematocrit 32.5 % (39.6-49.0); Lymphocytes % 24.2 % (15.3-44.8); MCH 20.2 pg (27.0-35.0); MPV 9.9 fL (7.6-11.3); Monocytes % 16.8 % (3.3-12.3); RBC Red Blood Cell Count 5.24 M/uL (4.33-5.43)
[2018-01-21 18:12] LABS: ALT/SGPT 22 U/L (12-78); AST/SGOT 19 U/L (15-37); Alkaline Phosphatase 69 U/L (45-117); BUN Blood Urea Nitrogen 24 mg/dL (7-18); Bicarbonate 29 mmol/L (21-32); Bilirubin Direct < 0.1 mg/dL (0-0.2); Bilirubin Total 0.2 mg/dL (0.2-1.0); Glucose Level 123 mg/dL (74-106); Magnesium 2.2 mg/dL (1.8-2.4); NT PRO-BNP 8954 pg/mL (<125); Potassium 4.1 mmol/L (3.5-5.1); Sodium Level 142 mmol/L (136-145); Troponin (Emerg Dept Use Only) 0.06 ng/mL (0.0-0.045)
[2018-01-21 18:25] LABS: Anisocytosis 2+; Blood Morphology Comment NOTED (NOT SEEN); Hypochromasia 1+; Platelet Estimate ADEQ; Urine White Blood Cell Casts OK
--- NOTE | 2018-01-21 18:52 | RAD REPORT ---
EXAM DESCRIPTION: RAD - Chest Single View - 01/21/2018 6:20 pm CLINICAL HISTORY: Cough;COPD;Chest pain Chest pain. COMPARISON: Chest Pa And Lat (2 Views) dated 12/05/2017; Chest Single View dated 12/03/2017; Chest Sin gle View dated 11/24/2017; Chest Single View dated 11/16/2017 FINDINGS: Portable technique limits examination quality. Mild interstitial pulmonary edema suspected. The heart is mildly prominent size. No displaced fractur es. IMPRESSION: Mild CHF versus volume overload.
[2018-01-21] MEDS ORDERED: ENOXAPARIN 80 MG/0.8 ML SQ ONE (19:09)
[2018-01-21] MEDS ORDERED: FUROSEMIDE 40 MG/4 ML VIAL ONE (19:09)
[2018-01-21] MEDS ORDERED: METOPROLOL TAR 50 MG TAB ONE (20:11)
[2018-01-21] MEDS ORDERED: HYDRALAZINE HCL 20 MG/ML VIAL ONE (20:11)
[2018-01-21] MEDS ORDERED: HYDRALAZINE HCL 10 MG TABLET ONE (20:11)
[2018-01-21] MEDS ORDERED: ONDANSETRON 4 MG/2 ML VIAL IV PRN (20:41)
--- NOTE | 2018-01-21 20:55 | EKG ---
Test Date: 2018-01-21 Test Time: 16:57:25 Card Hand: JOHANA MEASUREMENT RESULTS: Intervals: Rate: 73 AZ: 144 QRSD: 102 QT: 416 QTc: 458 [place]: P: 63 AZ: 144 QRS: 56 T: 76 INTERPRETIVE STATEMENTS: Normal sinus rhythm Possible Left atrial enlargement Nonspecific ST and T wave abnormality Abnormal ECG Compared to ECG 12/03/2017 22:55:43 ST (T wave) deviation now present Left ventricular hypertrophy no longer present Prolonged QT interval no longer present Electronically Signed On 01-21-18 20:54:33 [employer] by Jitendra Willams
[2018-01-21 20:58] VITALS: BMI 22.3
[2018-01-21] MEDS: ACETAMINOPHEN 500 MG TAB PO PRN (23:00)
[2018-01-21 23:54] LABS: Urine Appearance CLEAR; Urine Bilirubin NEGATIVE (NEG); Urine Blood NEGATIVE (NEG); Urine Color YELLOW; Urine Glucose TRACE (NEG); Urine Protein NEGATIVE (NEG); Urine Specific Gravity <=1.005 (1.005-1.030); Urine Urobilinogen 0.2 mg/dL (0.2-1.0)
[2018-01-22 00:15] LABS: Urine Bacteria <20 /HPF (NONE SEEN); Urine Culture Reflex Order NOT NEEDED; Urine RBC <5 /HPF (NONE SEEN)
--- NOTE | 2018-01-22 04:23 | P.HP ---
Certification for Inpatient Patient admitted to: Inpatient With expected LOS: >2 Midnights Patient will require the following post-hospital care: None Practitioner: I am a practitioner with admitting privileges, knowledge of patient current condition, hospital course, and medical plan of care. Services: Services provided to patient in accordance with Admission requirements found in Title 42 Section 412.3 of the Code of Federal Regulations Patient History Date of Service: 01/21/18 Reason for admission: Chest pain and dyspnea History of Present Illness: Patient is a 67-year-old gentleman who came into the hospital with chest pain. Patient was having chest pain and was short of breath. Patient has history of Coronary artery disease in multiple stents placed. Patient has significant Coronary artery disease but does not take his medications regularly. Last time patient was here in July he had a cardiac catheterization which revealed a 50% lad lesion with a eat wildly patent stent a 50% circumflex lesion and a diffusely diseased right coronary artery with an 80% InStent stenosis. Patient was treated medically after the angioplasty and discharged home with medical treatment. Patient has had recurrent chest pain on an off. He has been treating himself with pain medicine as needed. His pain got so severe that he decided to come into the hospital. In the ER his troponins and EKG have been negative. He has been diurese with Lasix and symptomatically he has improved somewhat. He will need observation stay to continue treatment and be ruled out for acute coronary syndrome. Allergies diphenhydramine HCl [From Benadryl] Adverse Reaction (Verified 12/04/17 06:25) Hives Home Medications: NK [No Home Meds] 01/21/18 - Past Medical/Surgical History Diabetic: Yes -: History of prostate cancer -: Hypertension -: History of brain aneurysm requiring surgery -: CHF, systolic dysfunction -: COPD -: Tobacco abuse -: Noncompliance -: Coronary disease, stents x3 to LAD/RCA(Feb 2016) -: Diabetes mellitus type 2 -: GERD -: anemia -: hyperlipidemia -: Prostate surgery -: Brain aneurysm surgery -: Toe surgery R. great toe/childhood -: Heart catheterization-3stents LAD/RCA Psychosocial/ Personal History: He is single, lives alone. He has no children. 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 - Family History Father Medical History: Cancer Notes: brain CA Mother Medical History: Cancer Notes: PANCREATIC CANCER Brother Medical History: Cancer Notes: lung CA - Social History Smoking Status: Current every day smoker Alcohol use: No CD- Drugs: No Caffeine use: Yes Place of Residence: Homeless Review of Systems 10-point ROS is otherwise unremarkable Physical Examination - Vital Signs Temperature: 98 F Blood Pressure: 161/68 Pulse: 61 Respirations: 20 Pulse Ox (%): 95 - Physical Exam General: Alert, In no apparent distress, Oriented x3 HEENT: Atraumatic, PERRLA, Mucous membr. moist/pink, EOMI, Sclerae nonicteric Neck: Supple, 2+ carotid pulse no bruit, No LAD, Without JVD or thyroid abnormality Respiratory: Crackles/rales Cardiovascular: Regular rate/rhythm, Normal S1 S2, Systolic murmur Gastrointestinal: Normal bowel sounds, Soft and benign, Non-distended, No tenderness Musculoskeletal: No clubbing, No swelling, No tenderness Integumentary: No rashes Neurological: Normal gait, Normal speech, Normal strength at 5/5 x4 extr, Normal tone, Sensation intact, Cranial nerves 3-12 intact, Normal affect Lymphatics: No axilla or inguinal lymphadenopathy - Studies Laboratory Data (last 24 hrs) 01/21/18 17:19: PT 13.5 H, INR 1.14 01/21/18 17:19: WBC 8.9, Hgb 10.6 L, Hct 32.5 L, Plt Count 198 01/21/18 17:19: Sodium 142, Potassium 4.1, BUN 24 H, Creatinine 1.40 H, Glucose 123 H, Magnesium 2.2, Total Bilirubin 0.2, AST 19, ALT 22, Alkaline Phosphatase 69 Assessment & Plan - Problems (Diagnosis) (1) Chest pain, rule out acute myocardial infarction Current Visit: Yes Status: Acute (2) Coronary artery disease Current Visit: Yes Status: Acute (3) Acute dyspnea Onset Date: 11/15/16 Current Visit: No Status: Acute (4) Acute on chronic systolic (congestive) heart failure Onset Date: 09/01/17 Current Visit: No Status: Acute (5) COPD exacerbation Onset Date: 04/03/17 Current Visit: No Status: Acute (6) Shortness of breath Onset Date: 03/18/16 Current Visit: No Status: Acute (7) Hyperlipidemia Onset Date: 07/19/16 Current Visit: No Status: Chronic Qualifiers: Hyperlipidemia type: mixed hyperlipidemia (8) Hypertension Onset Date: 02/05/16 Current Visit: No Status: Chronic Qualifiers: Hypertension type: essential hypertension (9) Tobacco abuse Onset Date: 02/05/16 Current Visit: No Status: Chronic (10) Type 2 diabetes mellitus Onset Date: 12/10/16 Current Visit: No Status: Chronic Qualifiers: 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 Serial troponins and EKG 2. Cardiology consultation 3. Echocardiogram & further workup per Cardiology 4. Anti-platelet therapy, anti coagulation, beta-vlad, statin, and O2 as needed 5. IV morphine for pain 6. Nitro p.r.n. 7. IV Lasix 8. Repeat chest x-ray 9. Monitor renal function closely 10. GI and DVT prophylaxis Discharge Plan: Home Plan to discharge in: 48 Hours - Advance Directives Does patient have a Living Will: No Does patient have a Durable POA for Healthcare: No - Code Status/Comfort Care Code Status Assessed: Yes Code Status: Full Code Critical Care: No Time Spent Managing PTS Care (In Minutes): 50
[2018-01-22] MEDS ORDERED: HYDRALAZINE HCL 20 MG/ML VIAL IV ONE (04:31)
[2018-01-22 05:36] LABS: Absolute Monocytes 0.1 K/uL (0.1-1.3); Absolute Neutrophil 4.9 K/uL (1.8-8.0); Basophils % 0.1 % (0-1.3); Hematocrit 36.7 % (39.6-49.0); Lymphocytes % 17.2 % (15.3-44.8); MCH 18.9 pg (27.0-35.0); MPV 9.3 fL (7.6-11.3); Monocytes % 2.4 % (3.3-12.3); RBC Red Blood Cell Count 5.83 M/uL (4.33-5.43)
[2018-01-22 05:42] LABS: MCV 62.9 fL (80-100)
[2018-01-22 06:00] LABS: Albumin 3.3 g/dL (3.4-5.0); Bilirubin Total 0.3 mg/dL (0.2-1.0); Magnesium 2.2 mg/dL (1.8-2.4); Phosphorus 4.2 mg/dL (2.5-4.9); Potassium 4.5 mmol/L (3.5-5.1); Protein, Total 6.6 g/dL (6.4-8.2); Troponin I 0.02 ng/mL (0.0-0.045)
[2018-01-22] MEDS ORDERED: FUROSEMIDE 40 MG/4 ML VIAL IV SCH (06:00)
[2018-01-22] MEDS ORDERED: METOPROLOL TAR 50 MG TAB PO SCH (08:00)
[2018-01-22] MEDS: FUROSEMIDE 20 MG/ 2ML VIAL IV SCH ×2 (09:00→17:05)
[2018-01-22] MEDS: ENOXAPARIN 40 MG/0.4 ML SQ SCH (09:22)
[2018-01-22] MEDS: METOPROLOL TAR 25 MG TAB PO SCH ×2 (09:23→21:04)
[2018-01-22] MEDS: ASPIRIN EC 81 MG TAB PO SCH (09:24)
[2018-01-22] MEDS: CLOPIDOGREL 75 MG TABLET PO SCH (09:24)
[2018-01-22] MEDS: LOSARTAN POTASSIUM 50 MG TABLET PO SCH ×2 (09:24→21:04)
--- NOTE | 2018-01-22 12:58 | P.PN ---
Subjective Date of Service: 01/22/18 Chief Complaint: Chest pain and dyspnea Subjective: Tolerating diet, Ambulating, Improving, Working w/ PT, Doing well Review of Systems 10-point ROS is otherwise unremarkable Physical Examination - Vital Signs Temperature: 97.6 F Blood Pressure: 167/74 Pulse: 70 Respirations: 18 Pulse Ox (%): 97 - Physical Exam General: Alert, In no apparent distress HEENT: Atraumatic, PERRLA, EOMI Neck: Supple, JVD not distended Respiratory: Clear to auscultation bilaterally, Normal air movement Cardiovascular: Regular rate/rhythm, Normal S1 S2 Gastrointestinal: Normal bowel sounds, No tenderness Musculoskeletal: No tenderness Integumentary: No rashes Neurological: Normal speech, Normal tone, Normal affect Lymphatics: No axilla or inguinal lymphadenopathy - Studies Laboratory Data (last 24 hrs) 01/21/18 17:19: PT 13.5 H, INR 1.14 01/21/18 17:19: WBC 8.9, Hgb 10.6 L, Hct 32.5 L, Plt Count 198 01/21/18 17:19: Sodium 142, Potassium 4.1, BUN 24 H, Creatinine 1.40 H, Glucose 123 H, Magnesium 2.2, Total Bilirubin 0.2, AST 19, ALT 22, Alkaline Phosphatase 69 Medications List Reviewed: Yes Assessment And Plan - Current Problems (Diagnosis) (1) Acute on chronic systolic (congestive) heart failure Onset Date: 09/01/17 Current Visit: No Status: Acute Plan: CHF exacerbation 2/2 to noncompliance with medications patient medication and did not have the money to get it. -IV Lasix at this time. Will monitor patient closely here in the hospital. -doing well overall. -After patient is adequately diuresed will discharge patient home and will get medication assistance to help with the medication refill. (2) CAD (coronary artery disease) Current Visit: No Status: Chronic Qualifiers: Coronary Disease-Associated Artery/Lesion type: [place] artery [place] vs. transplanted heart: [place] heart Associated angina: without angina Qualified Code(s): I25.10 - Atherosclerotic heart disease of [place] coronary artery without angina pectoris (3) COPD (chronic obstructive pulmonary disease) Onset Date: 03/21/15 Current Visit: No Status: Chronic Qualifiers: COPD type: unspecified COPD Qualified Code(s): J44.9 - Chronic obstructive pulmonary disease, unspecified (4) Family history of brain aneurysm Current Visit: No Status: Chronic (5) GERD (gastroesophageal reflux disease) Onset Date: 02/17/17 Current Visit: No Status: Chronic Qualifiers: Esophagitis presence: without esophagitis Qualified Code(s): K21.9 - Gastro -esophageal reflux disease without esophagitis (6) History of prostate cancer Current Visit: No Status: Chronic (7) Hyperlipidemia Onset Date: 07/19/16 Current Visit: No Status: Chronic Qualifiers: Hyperlipidemia type: mixed hyperlipidemia (8) Hypertension Onset Date: 02/05/16 Current Visit: No Status: Chronic Qualifiers: Hypertension type: essential hypertension (9) Noncompliance Onset Date: 03/18/16 Current Visit: No Status: Chronic (10) Type 2 diabetes mellitus Onset Date: 12/10/16 Current Visit: No Status: Chronic Qualifiers: 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
[2018-01-23 05:41] LABS: Absolute Lymphocytes (CBC) 2.7 K/uL (0.7-4.9); Absolute Monocytes 1.2 K/uL (0.1-1.3); Absolute Neutrophil 6.7 K/uL (1.8-8.0); Basophils % 0.5 % (0-1.3); Eosinophils % 1.5 % (0-4.4); Hematocrit 33.4 % (39.6-49.0); Lymphocytes % 25.1 % (15.3-44.8); MCH 19.3 pg (27.0-35.0); MCV 62.1 fL (80-100); MPV 9.2 fL (7.6-11.3); Monocytes % 11.3 % (3.3-12.3); RBC Red Blood Cell Count 5.38 M/uL (4.33-5.43)
[2018-01-23 06:01] LABS: Bilirubin Total 0.3 mg/dL (0.2-1.0); Magnesium 2.3 mg/dL (1.8-2.4); Phosphorus 4.1 mg/dL (2.5-4.9); Potassium 3.8 mmol/L (3.5-5.1); Protein, Total 5.9 g/dL (6.4-8.2)
[2018-01-23] MEDS ORDERED: POTASSIUM 25 MEQ EFFERV TAB PO ONE (09:00)
[2018-01-23] MEDS: ENOXAPARIN 40 MG/0.4 ML SQ SCH (09:16)
[2018-01-23] MEDS: FUROSEMIDE 20 MG/ 2ML VIAL IV SCH (09:17)
[2018-01-23] MEDS: LOSARTAN POTASSIUM 50 MG TABLET PO SCH (09:18)
[2018-01-23] MEDS: CLOPIDOGREL 75 MG TABLET PO SCH (09:18)
[2018-01-23] MEDS: ASPIRIN EC 81 MG TAB PO SCH (09:18)
[2018-01-23] MEDS: METOPROLOL TAR 25 MG TAB PO SCH (09:18)
--- NOTE | 2018-01-23 16:12 | P.PN ---
Subjective Date of Service: 01/23/18 Chief Complaint: Chest pain and dyspnea Patient seen and examined at bedside with RN. Chart reviewed. Case discussed with patient at bedside. Currently patient's blood pressure is not elevated ranges. Patient was asked to continue taking his medication as prescribed. Patient however stated that he does not have any money for his prescription to be filled until the January 31. Patient was notified the importance of medication compliance and the need to refill his prescription. Patient demonstrated understanding and stated I would like to refill my prescription however I do not have the money and med card will not be Re loaded until January 31. Patient does complain of having some mild headaches other than that states that he is feeling better than before. Review of Systems 10-point ROS is otherwise unremarkable Physical Examination - Vital Signs Temperature: 98 F Blood Pressure: 187/107 Pulse: 64 Respirations: 20 Pulse Ox (%): 95 - Physical Exam General: Alert, In no apparent distress HEENT: Atraumatic, PERRLA, EOMI Neck: Supple, JVD not distended Respiratory: Clear to auscultation bilaterally, Normal air movement Cardiovascular: Regular rate/rhythm, Normal S1 S2 Gastrointestinal: Normal bowel sounds, No tenderness Musculoskeletal: No tenderness Integumentary: No rashes Neurological: Normal speech, Normal tone, Normal affect Lymphatics: No axilla or inguinal lymphadenopathy - Studies Medications List Reviewed: Yes Assessment And Plan - Current Problems (Diagnosis) (1) Acute on chronic systolic (congestive) heart failure Onset Date: 09/01/17 Current Visit: No Status: Acute Plan: CHF exacerbation 2/2 to noncompliance with medications patient medication and did not have the money to get it. -IV Lasix at this time. Will monitor patient closely here in the hospital. -After patient is adequately diuresed will discharge patient home and will get medication assistance to help with the medication refill. -Currently patient does not have any money for prescription refill. Patient does need his medications to be safely discharged home and did not have a readmission here in the hospital for similar complaints. Patient was educated extensively about medication compliance and was asked to fill his prescription once ready for discharge. Patient stated that he would love to refill his medication however he does not have enough funds in his card to refill any medications at this time. (2) CAD (coronary artery disease) Current Visit: No Status: Chronic Qualifiers: Coronary Disease-Associated Artery/Lesion type: [place] artery [place] vs. transplanted heart: [place] heart Associated angina: without angina Qualified Code(s): I25.10 - Atherosclerotic heart disease of [place] coronary artery without angina pectoris (3) COPD (chronic obstructive pulmonary disease) Onset Date: 03/21/15 Current Visit: No Status: Chronic Qualifiers: COPD type: unspecified COPD Qualified Code(s): J44.9 - Chronic obstructive pulmonary disease, unspecified (4) Family history of brain aneurysm Current Visit: No Status: Chronic (5) GERD (gastroesophageal reflux disease) Onset Date: 02/17/17 Current Visit: No Status: Chronic Qualifiers: Esophagitis presence: without esophagitis Qualified Code(s): K21.9 - Gastro -esophageal reflux disease without esophagitis (6) History of prostate cancer Current Visit: No Status: Chronic (7) Hyperlipidemia Onset Date: 07/19/16 Current Visit: No Status: Chronic Qualifiers: Hyperlipidemia type: mixed hyperlipidemia (8) Hypertension Onset Date: 02/05/16 Current Visit: No Status: Chronic Plan: Blood pressure is elevated today. Most likely secondary to volume overload. Will diurese patient here in the hospital and restart his home medications here is well. Qualifiers: Hypertension type: essential hypertension (9) Noncompliance Onset Date: 03/18/16 Current Visit: No Status: Chronic (10) Type 2 diabetes mellitus Onset Date: 12/10/16 Current Visit: No Status: Chronic Qualifiers: Diabetes mellitus [facility] insulin use: without manager terminal use Diabetes mellitus complication status: without complication Qualified Code(s): E11.9 - Type 2 diabetes mellitus without complications - Plan Patient is currently awaiting clinical improvement with elevated blood pressure and volume overload. Patient will need to refill his medication prior to being discharged as this is needed for his safe discharge home. Patient stated right now he does not have any medications to take at home and does not have the money to refill his prescriptions either. We will work with Case management here in the hospital to arrange for a prescription plan for the patient. Discharge Plan: Home Plan to discharge in: 48 Hours - Code Status/Comfort Care Code Status Assessed: Yes Critical Care: No
[2018-01-23] MEDS: METOPROLOL TAR 50 MG TAB PO SCH (16:53)
[2018-01-23] MEDS: FUROSEMIDE 40 MG/4 ML VIAL IV SCH (16:53)
[2018-01-23] MEDS: ACETAMINOPHEN 500 MG TAB PO PRN (20:17)
[2018-01-24] MEDS ORDERED: HYDRALAZINE HCL 20 MG/ML VIAL IV PRN (04:01)
[2018-01-24 06:04] LABS: Absolute Lymphocytes (CBC) 2.5 K/uL (0.7-4.9); Absolute Monocytes 1.1 K/uL (0.1-1.3); Absolute Neutrophil 3.8 K/uL (1.8-8.0); Basophils % 0.8 % (0-1.3); Eosinophils % 2.7 % (0-4.4); Hematocrit 35.1 % (39.6-49.0); Lymphocytes % 32.3 % (15.3-44.8); MCH 19.2 pg (27.0-35.0); MCV 62.3 fL (80-100); MPV 9.2 fL (7.6-11.3); Monocytes % 14.8 % (3.3-12.3); RBC Red Blood Cell Count 5.63 M/uL (4.33-5.43)
[2018-01-24] MEDS: METOPROLOL TAR 50 MG TAB PO SCH ×2 (06:12→17:26)
[2018-01-24 06:24] LABS: Bilirubin Total 0.3 mg/dL (0.2-1.0); Magnesium 2.3 mg/dL (1.8-2.4); Phosphorus 3.5 mg/dL (2.5-4.9)
[2018-01-24] MEDS: CLOPIDOGREL 75 MG TABLET PO SCH (09:25)
[2018-01-24] MEDS: ASPIRIN EC 81 MG TAB PO SCH (09:25)
[2018-01-24] MEDS: ENOXAPARIN 40 MG/0.4 ML SQ SCH (09:25)
[2018-01-24] MEDS: FUROSEMIDE 40 MG/4 ML VIAL IV SCH ×2 (09:25→17:27)
[2018-01-24] MEDS: LISINOPRIL 10 MG TAB PO SCH (09:25)
[2018-01-24] MEDS: HYDRALAZINE HCL 25 MG TABLET PO SCH (12:56)
--- NOTE | 2018-01-24 15:08 | P.PN ---
Subjective Date of Service: 01/24/18 Chief Complaint: Chest pain and dyspnea Patient seen and examined at bedside with RN. Chart reviewed. Case discussed with patient at bedside. Currently patient's blood pressure is not controlled on the current medication. Patient has required 2 doses of hydralazine last night and his blood pressure is still remains in the elevated range. Patient was asked to continue taking his medication as prescribed. Patient however stated that he does not have any money for his prescription to be filled until the January 31. Patient was notified the importance of medication compliance and the need to refill his prescription. Patient demonstrated understanding and stated I would like to refill my prescription however I do not have the money and my card will not be Re loaded until January 31. Patient does complain of having some mild headaches other than that states that he is feeling better than before. Review of Systems 10-point ROS is otherwise unremarkable Physical Examination - Vital Signs Temperature: 97.3 F Blood Pressure: 164/79 Pulse: 62 Respirations: 18 Pulse Ox (%): 97 - Physical Exam General: Alert, In no apparent distress HEENT: Atraumatic, PERRLA, EOMI Neck: Supple, JVD not distended Respiratory: Clear to auscultation bilaterally, Normal air movement Cardiovascular: Regular rate/rhythm, Normal S1 S2 Gastrointestinal: Normal bowel sounds, No tenderness Musculoskeletal: No tenderness Integumentary: No rashes Neurological: Normal speech, Normal tone, Normal affect Lymphatics: No axilla or inguinal lymphadenopathy - Studies Medications List Reviewed: Yes Assessment And Plan - Current Problems (Diagnosis) (1) Acute on chronic systolic (congestive) heart failure Onset Date: 09/01/17 Current Visit: No Status: Acute Plan: CHF exacerbation 2/2 to noncompliance with medications patient medication and did not have the money to get it. -IV Lasix at this time. Will monitor patient closely here in the hospital. -Currently patient does not have any money for prescription refill. Patient does need his medications to be safely discharged home and not have a readmission here in the hospital for similar complaints. Patient was educated extensively about medication compliance and was asked to fill his prescription once ready for discharge. Patient stated that he would love to refill his medication however he does not have enough funds in his card to refill any medications at this time. (2) CAD (coronary artery disease) Current Visit: No Status: Chronic Qualifiers: Coronary Disease-Associated Artery/Lesion type: [place] artery [place] vs. transplanted heart: [place] heart Associated angina: without angina Qualified Code(s): I25.10 - Atherosclerotic heart disease of [place] coronary artery without angina pectoris (3) COPD (chronic obstructive pulmonary disease) Onset Date: 03/21/15 Current Visit: No Status: Chronic Qualifiers: COPD type: unspecified COPD Qualified Code(s): J44.9 - Chronic obstructive pulmonary disease, unspecified (4) Family history of brain aneurysm Current Visit: No Status: Chronic (5) GERD (gastroesophageal reflux disease) Onset Date: 02/17/17 Current Visit: No Status: Chronic Qualifiers: Esophagitis presence: without esophagitis Qualified Code(s): K21.9 - Gastro -esophageal reflux disease without esophagitis (6) History of prostate cancer Current Visit: No Status: Chronic (7) Hyperlipidemia Onset Date: 07/19/16 Current Visit: No Status: Chronic Qualifiers: Hyperlipidemia type: mixed hyperlipidemia (8) Hypertension Onset Date: 02/05/16 Current Visit: No Status: Chronic Plan: Blood pressure is elevated today. Most likely secondary to volume overload. -Will diurese patient here in the hospital -patient required 2 doses of hydralazine last night. Will start patient on p.o. 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 Patient will need to refill his medication prior to being discharged as this is needed for his safe discharge home. Patient stated right now he does not have any medications to take at home and does not have the money to refill his prescriptions either. We will work with Case management here in the hospital to arrange for a prescription plan for the patient. Discharge Plan: Home Plan to discharge in: 48 Hours - Code Status/Comfort Care Code Status Assessed: Yes Critical Care: No
[2018-01-24] MEDS: ACETAMINOPHEN 500 MG TAB PO PRN ×3 (16:34→23:35)
[2018-01-24] MEDS ORDERED: HYDROCODONE/APAP 10/325 TAB PO PRN (23:39)
[2018-01-24] MEDS ORDERED: HYDROMORPHONE HCL 0.5 MG/0.5 ML INJ IV ONE (23:42)
[2018-01-25] MEDS: METOPROLOL TAR 50 MG TAB PO SCH ×2 (05:04→17:42)
[2018-01-25] MEDS: ENOXAPARIN 40 MG/0.4 ML SQ SCH (08:35)
[2018-01-25] MEDS: FUROSEMIDE 40 MG/4 ML VIAL IV SCH ×2 (08:35→17:42)
[2018-01-25] MEDS: ASPIRIN EC 81 MG TAB PO SCH (08:36)
[2018-01-25] MEDS: CLOPIDOGREL 75 MG TABLET PO SCH (08:37)
[2018-01-25] MEDS: HYDRALAZINE HCL 25 MG TABLET PO SCH ×2 (08:37→20:17)
[2018-01-25] MEDS: LISINOPRIL 10 MG TAB PO SCH (08:37)
--- NOTE | 2018-01-25 13:28 | P.PN ---
Subjective Date of Service: 01/25/18 Chief Complaint: Chest pain and dyspnea Patient seen and examined at bedside with RN. Chart reviewed. Case discussed with patient at bedside. Currently patient's blood pressure is not controlled on the current medication. Adjusted and Added new BP medication. Patient was asked to continue taking his medication as prescribed. Patient however stated that he does not have any money for his prescription to be filled until the January 31. Patient was notified the importance of medication compliance and the need to refill his prescription. Patient demonstrated understanding and stated I would like to refill my prescription however I do not have the money and my card will not be Re loaded until January 31. Patient does complain of having some mild headaches other than that states that he is feeling better than before. Review of Systems 10-point ROS is otherwise unremarkable Physical Examination - Vital Signs Temperature: 97.9 F Blood Pressure: 140/65 Pulse: 53 Respirations: 16 Pulse Ox (%): 98 - Physical Exam General: Alert, In no apparent distress HEENT: Atraumatic, PERRLA, EOMI Neck: Supple, JVD not distended Respiratory: Clear to auscultation bilaterally, Normal air movement Cardiovascular: Regular rate/rhythm, Normal S1 S2 Gastrointestinal: Normal bowel sounds, No tenderness Musculoskeletal: No tenderness Integumentary: No rashes Neurological: Normal speech, Normal tone, Normal affect Lymphatics: No axilla or inguinal lymphadenopathy - Studies Medications List Reviewed: Yes Assessment And Plan - Current Problems (Diagnosis) (1) Acute on chronic systolic (congestive) heart failure Onset Date: 09/01/17 Current Visit: No Status: Acute Plan: CHF exacerbation 2/2 to noncompliance with medications patient medication and did not have the money to get it. -IV Lasix at this time. Will monitor patient closely here in the hospital. -Currently patient does not have any money for prescription refill. Patient does need his medications to be safely discharged home and not have a readmission here in the hospital for similar complaints. Patient was educated extensively about medication compliance and was asked to fill his prescription once ready for discharge. Patient stated that he would love to refill his medication however he does not have enough funds in his card to refill any medications at this time. (2) CAD (coronary artery disease) Current Visit: No Status: Chronic Qualifiers: Coronary Disease-Associated Artery/Lesion type: [place] artery [place] vs. transplanted heart: [place] heart Associated angina: without angina Qualified Code(s): I25.10 - Atherosclerotic heart disease of [place] coronary artery without angina pectoris (3) COPD (chronic obstructive pulmonary disease) Onset Date: 03/21/15 Current Visit: No Status: Chronic Qualifiers: COPD type: unspecified COPD Qualified Code(s): J44.9 - Chronic obstructive pulmonary disease, unspecified (4) Family history of brain aneurysm Current Visit: No Status: Chronic (5) GERD (gastroesophageal reflux disease) Onset Date: 02/17/17 Current Visit: No Status: Chronic Qualifiers: Esophagitis presence: without esophagitis Qualified Code(s): K21.9 - Gastro -esophageal reflux disease without esophagitis (6) History of prostate cancer Current Visit: No Status: Chronic (7) Hyperlipidemia Onset Date: 07/19/16 Current Visit: No Status: Chronic Qualifiers: Hyperlipidemia type: mixed hyperlipidemia (8) Hypertension Onset Date: 02/05/16 Current Visit: No Status: Chronic Plan: Blood pressure is elevated today. Most likely secondary to volume overload. -Will diurese patient here in the hospital -Started patient on p.o. hydralazine in AM. Now Changed to BID today here in the hospital -Monitor for BP change. 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 Patient will need to refill his medication prior to being discharged as this is needed for his safe discharge home. Patient stated right now he does not have any medications to take at home and does not have the money to refill his prescriptions either. We will work with Case management here in the hospital to arrange for a prescription plan for the patient or Placement Discharge Plan: Home Plan to discharge in: 48 Hours - Code Status/Comfort Care Code Status Assessed: Yes Critical Care: No
[2018-01-25] MEDS: ACETAMINOPHEN 500 MG TAB PO PRN (20:17)
[2018-01-26] MEDS: ACETAMINOPHEN 500 MG TAB PO PRN (00:20)
[2018-01-26] MEDS: METOPROLOL TAR 50 MG TAB PO SCH (05:25)
[2018-01-26] MEDS: LISINOPRIL 10 MG TAB PO SCH (09:15)
[2018-01-26] MEDS: ASPIRIN EC 81 MG TAB PO SCH (09:16)
[2018-01-26] MEDS: HYDRALAZINE HCL 25 MG TABLET PO SCH (09:16)
[2018-01-26] MEDS: CLOPIDOGREL 75 MG TABLET PO SCH (09:16)
[2018-01-26] MEDS: FUROSEMIDE 40 MG/4 ML VIAL IV SCH (09:16)
[2018-01-26] MEDS: ENOXAPARIN 40 MG/0.4 ML SQ SCH (09:16)
--- NOTE | 2018-01-26 13:40 | P.DS ---
Admission Date: 01/21/18 Discharge Date: 01/26/18 Primary Care Provider: none Disposition: ROUTINE DISCHARGE Discharge Condition: GOOD Reason for Admission: Chest pain and dyspnea Consultations: none Procedures: Medical Problem List: Chest pain, shortness of breath secondary to acute on chronic systolic congestive heart failure with ejection fraction of 30% complicated with COPD exacerbation and noncompliance with medication and follow up Hypertension, uncontrolled now stable CAD with prior heart catheterization with July 2017 showing LAD stent widely patent. LAD had 50% stenosis throughout. Circumflex with 50% stenosis. Right Coronary artery diffusely diseased in the mid to distal junction with old stent. 80% in stent stenosis just distal to the stenosis of 50% narrowing. Tobacco abuse Hyperlipidemia Diabetes mellitus type 2, diet controlled Iron-deficiency anemia Chronic renal disease, stage II Brief History of Present Illness: 67-year-old male presented emergency room with chest pain and shortness of breath. Patient with poor compliance with follow up and medication. Patient found to have acute on chronic systolic CHF exacerbation with COPD exacerbation. Patient admitted for further treatment. Hospital Course: Patient presented with chest pain and shortness of breath. Patient found to have acute on chronic systolic congestive heart failure with ejection fraction of 30%. This was complicated with COPD exacerbation. Patient non compliant with medication and follow up. Patient was treated during the course of his stay. Patient improved. At discharge he is without any significant chest pain or shortness of breath. No need for home oxygen. Patient understands compliance will be important in the future to maintain his health. Patient desires to follow up at the [facility]. Patient can be considered for chronic placement if he he works with the [facility] to help with this as an outpatient. At discharge medications will be provided for 3 months supply. Administration will pay for his medications to prevent readmission. This was addressed in detail with the patient. Patient understands this. At discharge patient will continue with aspirin 81 mg daily, Plavix 75 mg 1 pill daily, hydralazine 50 mg 1 pill twice daily, lisinopril 10 mg 1 pill once daily, metoprolol 50 mg 1 pill twice daily, Lasix 40 mg 1 pill twice daily, Lipitor 40 mg 1 pill once daily, iron 325 mg 1 pill daily, Pro air 2 puffs 3 times a day as needed for shortness of breath and Symbicort 160 mcg 2 puffs twice daily. Patient presented with acute on chronic systolic CHF. Ejection fraction 30%. At discharge patient without significant shortness of breath. At discharge he will continue with a 1500 cc per day fluid restriction. At discharge he will continue with Lasix 40 mg 1 pill twice daily. He is to monitor his weight daily. If his weight increases by more than 5 lb he is to contact his PCP for further recommendation. Patient plans to follow up at the [facility] to continue his care. Patient has CAD with prior heart catheterization. Previous heart catheterization reviewed. At discharge he will continue with aspirin 81 mg daily and Plavix 75 mg daily. Recommendation for the patient follow up at the [facility] to further monitor and address. Patient has hypertension. This was uncontrolled during his stay. Additional medication was required. At discharge he will continue with hydralazine 50 mg 1 pill twice daily, lisinopril 10 mg 1 pill once daily, and metoprolol 50 mg 1 pill twice daily. Recommendation is to maintain blood pressures less 150/80. Further adjustment can be done by his PCP. Patient will follow up at the [facility] to further address. Patient has hyperlipidemia. At discharge he will continue with Lipitor 40 mg 1 pill once daily. Patient with diabetes mellitus type 2, diet controlled. Patient will continue with diet control. Recommendation is to maintain blood sugars less 140 fasting and less than 200 after meals. Further adjustment can be done by his PCP. Patient has iron deficiency anemia. At discharge he will continue with iron 325 mg 1 pill once daily. Patient has tobacco abuse. Tobacco cessation education will be provided. Patient has COPD. Patient came in with acute exacerbation. Patient stable at discharge. At discharge he will continue with Pro air 2 puffs 3 times a day as needed for shortness of breath and Symbicort 160 mcg 2 puffs twice daily. Education on COPD will be provided. Patient has chronic renal disease, stage II. Recommendation to recheck lab-BMP in 1 week to monitor his progress. Vital Signs/Physical Exam: Temp Pulse Resp BP Pulse Ox 97.6 F 54 24 H 171/82 H 100 01/26/18 08:00 01/26/18 09:16 01/26/18 08:00 01/26/18 09:16 01/26/18 08:00 General: Alert, In no apparent distress, Oriented x3, Cooperative HEENT: Atraumatic Neck: Supple Respiratory: Clear to auscultation bilaterally, Normal air movement Cardiovascular: Normal pulses, Regular rate/rhythm Gastrointestinal: Normal bowel sounds, Soft and benign, Non-distended, No tenderness, No masses, No rebound, No guarding Musculoskeletal: No erythema, No tenderness, No warmth Integumentary: No tenderness/swelling, No erythema, No warmth, No cyanosis Neurological: Normal speech, Normal strength at 5/5 x4 extr, Normal tone, Normal affect Lymphatics: No axilla or inguinal lymphadenopathy Laboratory Data at Discharge: WBC 7.6 K/uL (4.3-10.9) D 01/24/18 05:28 Hgb 10.8 g/dL (13.6-17.9) L 01/24/18 05:28 Hct 35.1 % (39.6-49.0) L 01/24/18 05:28 Plt Count 199 K/uL (152-406) 01/24/18 05:28 PT 13.5 SECONDS (9.5-12.5) H 01/21/18 17:19 INR 1.14 01/21/18 17:19 Sodium 141 mmol/L (136-145) 01/24/18 05:28 Potassium 4.0 mmol/L (3.5-5.1) 01/24/18 05:28 BUN 22 mg/dL (7-18) H 01/24/18 05:28 Creatinine 1.10 mg/dL (0.55-1.3) 01/24/18 05:28 Glucose 112 mg/dL (74-106) H 01/24/18 05:28 Phosphorus 3.5 mg/dL (2.5-4.9) 01/24/18 05:28 Magnesium 2.3 mg/dL (1.8-2.4) 01/24/18 05:28 Total Bilirubin 0.3 mg/dL (0.2-1.0) 01/24/18 05:28 AST 13 U/L (15-37) L 01/24/18 05:28 ALT 17 U/L (12-78) 01/24/18 05:28 Alkaline Phosphatase 66 U/L (45-117) 01/24/18 05:28 Troponin I 0.03 ng/mL (0.0-0.045) 01/22/18 13:00 Home Medications: Albuterol Sulfate [Proair Hfa] 8.5 gm IH TID PRN #3 hfa.aer.ad 01/26/18 Aspirin [Aspirin EC 81 MG] 81 mg PO DAILY #90 tablet. 01/26/18 Atorvastatin Calcium [Lipitor] 40 mg PO DAILY #90 tablet 01/26/18 Budesonide/Formoterol Fumarate [Symbicort 160-4.5 Mcg Inhaler] 2 puff IH BID #3 hfa.aer.ad 01/26/18 Clopidogrel Bisulfate [Plavix*] 75 mg PO DAILY #90 tablet 01/26/18 Furosemide [Lasix] 40 mg PO BIDL #180 tab 01/26/18 Hydralazine [Apresoline*] 50 mg PO BID #360 tab 01/26/18 Lisinopril [Prinivil*] 10 mg PO DAILY #90 tab 01/26/18 Metoprolol Tartrate [Lopressor*] 50 mg PO BID 6AM 6PM #180 tab 01/26/18 New Medications: Albuterol Sulfate [Proair Hfa] 8.5 gm IH TID PRN #3 hfa.aer.ad PRN Reason: Shortness Of Breath Aspirin [Aspirin EC 81 MG] 81 mg PO DAILY #90 tablet. Atorvastatin Calcium [Lipitor] 40 mg PO DAILY #90 tablet Budesonide/Formoterol Fumarate [Symbicort 160-4.5 Mcg Inhaler] 2 puff IH BID #3 hfa.aer.ad Clopidogrel Bisulfate [Plavix*] 75 mg PO DAILY #90 tablet Furosemide [Lasix] 40 mg PO BIDL #180 tab Hydralazine [Apresoline*] 50 mg PO BID #360 tab Lisinopril [Prinivil*] 10 mg PO DAILY #90 tab Metoprolol Tartrate [Lopressor*] 50 mg PO BID 6AM 6PM #180 tab Patient Discharge Instructions: 1. Patient will need to establish care with a PCP after this hospitalization. [facility] and [facility] his treatment. 2. Patient presented with chest pain and shortness of breath. Patient found to have acute on chronic systolic congestive heart failure with ejection fraction of 30%. This was complicated with COPD exacerbation. Patient non compliant with medication and follow up. Patient was treated during the course of his stay. Patient improved. At discharge he is without any significant chest pain or shortness of breath. No need for home oxygen. Patient understands compliance will be important in the future to maintain his health. Patient desires to follow up at [facility]. Patient can be considered for chronic placement if he he works with the [facility] to help with this as an outpatient. At discharge medications will be provided for 3 months supply. Administration will pay for his medications to prevent readmission. This was addressed in detail with the patient. Patient understands this. At discharge patient will continue with aspirin 81 mg daily, Plavix 75 mg 1 pill daily, hydralazine 50 mg 1 pill twice daily, lisinopril 10 mg 1 pill once daily, metoprolol 50 mg 1 pill twice daily, Lasix 40 mg 1 pill twice daily, Lipitor 40 mg 1 pill once daily, iron 325 mg 1 pill daily, Pro air 2 puffs 3 times a day as needed for shortness of breath and Symbicort 160 mcg 2 puffs twice daily. 3. Patient presented with acute on chronic systolic CHF. Ejection fraction 30%. At discharge patient without significant shortness of breath. At discharge he will continue with a 1500 cc per day fluid restriction. At discharge he will continue with Lasix 40 mg 1 pill twice daily. He is to monitor his weight daily. If his weight increases by more than 5 lb he is to contact his PCP for further recommendation. Patient plans to follow up at the [facility] to continue his care. 4. Patient has CAD with prior heart catheterization. Previous heart catheterization reviewed. At discharge he will continue with aspirin 81 mg daily and Plavix 75 mg daily. Recommendation for the patient follow up at the [facility] to further monitor and address. 5. Patient has hypertension. This was uncontrolled during his stay. Additional medication was required. At discharge he will continue with hydralazine 50 mg 1 pill twice daily, lisinopril 10 mg 1 pill once daily, and metoprolol 50 mg 1 pill twice daily. Recommendation is to maintain blood pressures less 150/80. Further adjustment can be done by his PCP. Patient will follow up at the [facility] to further address. 6. Patient has hyperlipidemia. At discharge he will continue with Lipitor 40 mg 1 pill once daily. 7. Patient with diabetes mellitus type 2, diet controlled. Patient will continue with diet control. Recommendation is to maintain blood sugars less 140 fasting and less than 200 after meals. Further adjustment can be done by his PCP. 8. Patient has iron deficiency anemia. At discharge he will continue with iron 325 mg 1 pill once daily. 9. Patient has tobacco abuse. Tobacco cessation education will be provided. 10. Patient has COPD. Patient came in with acute exacerbation. Patient stable at discharge. At discharge he will continue with Pro air 2 puffs 3 times a day as needed for shortness of breath and Symbicort 160 mcg 2 puffs twice daily. Education on COPD will be provided. 11. Patient has chronic renal disease, stage II. Recommendation to recheck lab-BMP in 1 week to monitor his progress. Diet: Regular Activity: Ad kim Followup: Cyrus Porter MD [ACTIVE - CAN ADMIT] - 1 Week Time spent managing pt's care (in minutes): 55
[2018-01-26 14:25] VITALS: BP 128/59; TEMP 98.2
[2018-01-26 14:30] VITALS: O2SAT 96
== END 2018-01-26 15:38 | disposition home or self-care (01) ==
LOC: ER 16:55 → ERHOLD 17:43 → 4TH 20:12
PROVIDERS: ADMIT Family Medicine; ATTEND Hospitalist
DX: I13.0 Hypertensive heart and chronic kidney disease with heart failure and stage 1 through stage 4 chronic kidney disease, or unspecified chronic kidney disease (principal); E11.22 Type 2 diabetes mellitus with diabetic chronic kidney disease; N18.2 Chronic kidney disease, stage 2 (mild); I50.23 Acute on chronic systolic (congestive) heart failure; J44.1 Chronic obstructive pulmonary disease with (acute) exacerbation; I25.10 Atherosclerotic heart disease of native coronary artery without angina pectoris; E11.9 Type 2 diabetes mellitus without complications; E78.5 Hyperlipidemia, unspecified; F17.210 Nicotine dependence, cigarettes, uncomplicated; K21.9 Gastro-esophageal reflux disease without esophagitis; Z91.14 Patient's other noncompliance with medication regimen; D50.9 Iron deficiency anemia, unspecified; Z95.5 Presence of coronary angioplasty implant and graft; Z85.46 Personal history of malignant neoplasm of prostate
CPT/HCPCS: 36415 ×3; 71045; 80048; 80053 ×3; 80076; 81001; 83735 ×4; 83880; 84100 ×3; 84484 ×4; 85025 ×4; 85610; 93005; 94760 ×10; 96361; 96372; 96374; 96375; 99285; G0378 ×2; J0360 ×3; J1170; J1650 ×6; J1940 ×10; J2930; J7030

== ENCOUNTER 2018-02-24 20:24 | Emergency (ER) | payer OTHER ==
--- OUTSIDE RECORDS SUMMARY | 2018-02-24 20:26 | XMS REPORT ---
:1950 Author Organization [facility] Address [address] [place] [address] Care Team Providers Name Role Phone Unavailable Unavailable Unavailable Payers Payer Name Policy Type Policy Number Effective Date Expiration Date Problems This patient has no known problems. Allergies, Adverse Reactions, Alerts Allergy Name Allergy Status Severity Reaction(s) Onset Inactive Treating Comments Type Date Date Clinician diphenhydramine DA Active U 2017-10-06 00:00: 00 Medications This patient has no known medications.
[2018-02-24 21:07] LABS: Absolute Lymphocytes (CBC) 2.3 K/uL (0.7-4.9); Absolute Monocytes 1.3 K/uL (0.1-1.3); Absolute Neutrophil 6.5 K/uL (1.8-8.0); Basophils % 0.8 % (0-1.3); Eosinophils % 2.4 % (0-4.4); Hematocrit 36.6 % (39.6-49.0); Lymphocytes % 22.1 % (15.3-44.8); MPV 9.3 fL (7.6-11.3); Monocytes % 12.7 % (3.3-12.3); RBC Red Blood Cell Count 5.39 M/uL (4.33-5.43)
[2018-02-24 21:10] LABS: Protime INR 1.27
[2018-02-24 21:26] LABS: Bilirubin Direct 0.2 mg/dL (0-0.2); Bilirubin Total 0.8 mg/dL (0.2-1.0); Magnesium 2.2 mg/dL (1.8-2.4); Potassium 3.3 mmol/L (3.5-5.1); Protein, Total 6.7 g/dL (6.4-8.2); Troponin (Emerg Dept Use Only) 0.04 ng/mL (0.0-0.045)
[2018-02-24] MEDS ORDERED: FUROSEMIDE 40 MG/4 ML VIAL ONE (21:46)
[2018-02-24] MEDS ORDERED: predniSONE 20 MG TAB ONE (21:46)
--- NOTE | 2018-02-24 21:54 | RAD REPORT ---
EXAM DESCRIPTION: Neo Single View02/24/2018 9:17 pm CLINICAL HISTORY: Shortness of breath COMPARISON: January 2018 FINDINGS: Mild bilateral pulmonary opacities. Heart is mildly to moderately enlarged IMPRESSION: Mild CHF
--- NOTE | 2018-02-24 21:56 | RAD REPORT ---
EXAM DESCRIPTION: RAD - Shoulder Left 2 View - 02/24/2018 9:09 pm CLINICAL HISTORY: Left shoulder pain status post fall FINDINGS: No fracture or dislocation is seen.
[2018-02-24 22:13] LABS: Anisocytosis 1+; Blood Morphology Comment NOTED (NOT SEEN); Hypochromasia 1+; Platelet Estimate ADEQ; Urine White Blood Cell Casts OK
[2018-02-24] MEDS ORDERED: POTASSIUM CL SA 10 MEQ TAB PO ONE (22:32)
[2018-02-24] MEDS ORDERED: METOPROLOL XL 50 MG TAB PO ONE (23:19)
[2018-02-24] MEDS ORDERED: LISINOPRIL 10 MG TAB ONE (23:19)
[2018-02-24] MEDS ORDERED: METOPROLOL TAR 50 MG TAB ONE (23:20)
--- NOTE | 2018-02-25 00:17 | ER ---
Nurse's Notes [facility] Name: Mark Terrell Age: 67 yrs Sex: Male : 1950 Arrival Date: 02/24/2018 Time: 20:29 Bed 8 Private MD: Diagnosis: Chronic obstructive pulmonary disease with (acute) exacerbation Presentation: 02/24 20:29 Presenting complaint: Patient states: c/o shortness of breath since this morning. Fell tl2 yesterday on left side and c/o left shoulder pain. Pt also c/o of chest pain but was relieved by breathing treatment per EMS. Transition of care: patient was not received from another setting of care. Onset of symptoms was February 24, 2018. Risk Assessment: Do you want to hurt yourself or someone else? Patient reports no desire to harm self or others. Initial Sepsis Screen: Does the patient meet any 2 criteria? No. Patient's initial sepsis screen is negative. Does the patient have a suspected source of infection? No. Patient's initial sepsis screen is negative. Care prior to arrival: Medication(s) given: Albuterol Neb x 1, Atrovent Neb x 1, IV initiated. 20 GA, in the left forearm, Glucose check: 86. 20:29 Method Of Arrival: EMS: [facility] tl2 20:29 Acuity: ARIEL 3 tl2 Triage Assessment: 20:33 General: Appears in no apparent distress. uncomfortable, Behavior is calm, cooperative, tl2 appropriate for age. Pain: Complains of pain in anterior aspect of left shoulder Pain does not radiate. Neuro: Level of Consciousness is awake, alert, obeys commands, Oriented to person, place, time, situation. Cardiovascular: Denies chest pain. Respiratory: Reports shortness of breath cough that is Airway is patent Respiratory effort is even, unlabored, Respiratory pattern is regular, symmetrical, Onset: The symptoms/episode began/occurred today, the patient has mild shortness of breath. GI: No signs and/or symptoms were reported involving the gastrointestinal system. Derm: Skin is pink, warm \T\ dry. Historical: - Allergies: 20:33 Benadryl; tl2 - Home Meds: 20:33 None [Active]; tl2 - PMHx: 20:33 Aneurysm; BRAIN; Atrial Fib; Cancer; PROSTATE; CHF; COPD; Hypertension; Prostate Cancer;tl2 - Immunization history:: Adult Immunizations up to date. - Social history:: Smoking status: Patient uses tobacco products, smokes one pack cigarettes per day. - Ebola Screening: : No symptoms or risks identified at this time. Screenin:37 Abuse screen: Denies threats or abuse. Nutritional screening: No deficits noted. tl2 Tuberculosis screening: No symptoms or risk factors identified. Fall Risk Assessment: 20:36 General: see triage assessment. Cardiovascular: Rhythm is sinus rhythm. Respiratory: tl2 Airway is patent Respiratory effort is even, labored, Respiratory pattern is regular, symmetrical, Breath sounds are coarse bilaterally. 22:57 Reassessment: Patient appears in no apparent distress at this time. Patient and/or tl2 family updated on plan of care and expected duration. Pain level reassessed. Patient is alert, oriented x 3, equal unlabored respirations, skin warm/dry/pink. Manual BP continues to be high, GEOCHEMIST notified. Awaiting further orders Patient denies pain at this time. 22:57 Reassessment: Patient appears in no apparent distress at this time. Patient and/or tl2 family updated on plan of care and expected duration. Pain level reassessed. Patient is alert, oriented x 3, equal unlabored respirations, skin warm/dry/pink. Pt resting, no complaints or concerns at this time. 02/25 00:58 Reassessment: Patient appears in no apparent distress at this time. Patient and/or tl2 family updated on plan of care and expected duration. Pain level reassessed. Patient is alert, oriented x 3, equal unlabored respirations, skin warm/dry/pink. Pt verbalized understanding of discharge instructions, need for follow up and prescription usage. Vital Signs: 02/24 20:33 BP 185 / 111; Pulse 84; Resp 22; Pulse Ox 96% on R/A; Weight 68.04 kg; Height 5 ft. 9 tl2 in. (175.26 cm); Pain 5/10; 21:40 BP 218 / 110; Pulse 93; Resp 24; Pulse Ox 96% on R/A; tl2 22:21 Pulse 78; Resp 22; Pulse Ox 96% on R/A; tl2 22:56 BP 210 / 104 (man/); Pulse 88; Resp 19; Pulse Ox 96% on R/A; tl2 23:15 BP 235 / 115; Pulse 86; Resp 20; Pulse Ox 96% on R/A; tl2 02/25 00:07 BP 181 / 97; Pulse 72; Resp 18; Pulse Ox 95% on R/A; tl2 02/24 20:33 Body Mass Index 22.15 (68.04 kg, 175.26 cm) tl2 Vitals: 02/24 22:21 Cardiac Rhythm Assessment Sinus rhythm W/unifocal PVC's. tl2 ED Course: 20:29 Patient arrived in ED. tl2 20:31 Triage completed. tl2 20:33 Arm band placed on right wrist. tl2 20:37 Maintain EMS IV. Dressing intact. Good blood return noted. Site clean \T\ dry. Gauge \T\ tl 2 site: 20 g L FA. 20:40 Rj Arnold NP is PHCP. pm1 20:40 Jonathon Chin MD is Attending Physician. pm1 21:06 Nelia May RN is Primary Nurse. tl2 21:07 Shoulder Left (2 View) XRAY In Process Unspecified. EDMS 21:07 XRAY Chest (1 view) In Process Unspecified. EDMS 22:27 Patient has correct armband on for positive identification. Placed in gown. Bed in low tl2 position. Call light in reach. Side rails up X 1. 02/25 00:58 No provider procedures requiring assistance completed. IV discontinued, intact, tl2 bleeding controlled, No redness/swelling at site. Pressure dressing applied. Administered Medications: 02/24 21:40 Drug: Lasix 40 mg Route: IVP; Site: left antecubital; tl2 23:39 Follow up: Response: No adverse reaction; Marked relief of symptoms tl2 21:40 Drug: predniSONE 60 mg Route: PO; tl2 23:40 Follow up: Response: No adverse reaction; Marked relief of symptoms tl2 22:28 Drug: Potassium Chloride 40 mEq Route: PO; tl2 23:40 Follow up: Response: No adverse reaction tl2 23:15 Drug: Lisinopril 10 mg Route: PO; tl2 02/25 00:30 Follow up: Response: No adverse reaction ak1 01:00 Follow up: Response: No adverse reaction; Blood pressure is lowered tl2 02/24 23:15 Drug: Metoprolol 50 mg Route: PO; tl2 02/25 00:30 Follow up: Response: No adverse reaction ak1 01:01 Follow up: Response: No adverse reaction; Blood pressure is lowered tl2 Output: 02/24 22:21 Urine: 800ml (Voided); Total: 800ml. tl2 23:40 Urine: 400ml (Voided); Total: 1200ml. tl2 Outcome: 02/25 00:16 Discharge ordered by MD. pm1 00:58 Discharged to home ambulatory. tl2 00:58 Condition: stable 00:58 Discharge instructions given to patient, Instructed on discharge instructions, follow up and referral plans. medication usage, Demonstrated understanding of instructions, follow-up care, medications, Prescriptions given X 3. 01:02 Patient left the ED. tl2 Signatures: Dispatcher [employer] EDMS Crystal Lord RN RN ak1 Rj Arnold, FADI GEOCHEMIST pm1 Nelia May RN RN tl2
--- NOTE | 2018-02-25 00:17 | EDPHYS ---
Physician Documentation [facility] Name: Mark Terrell Age: 67 yrs Sex: Male : 1950 Arrival Date: 02/24/2018 Time: 20:29 Bed 8 Private MD: ED Physician Jonathon Chin HPI: 02/24 22:00 This 67 yrs old Male presents to ER via EMS with complaints of Shortness Of pm1 Breath. 22:00 The patient has shortness of breath at rest. Onset: The symptoms/episode began/occurred pm1 today. Duration: The symptoms are continuous. The patient's shortness of breath is alleviated by nebulizer treatment, prior to arrival . Associated signs and symptoms: Pertinent positives: non-productive cough, Pertinent negatives: chest pain, diaphoresis, dizziness, fever, nausea, vomiting. Severity of symptoms: Pain is currently a 0 / 10. The patient has not experienced similar symptoms in the past. The patient has not recently seen a physician. Historical: - Allergies: 20:33 Benadryl; tl2 - Home Meds: 20:33 None [Active]; tl2 - PMHx: 20:33 Aneurysm; BRAIN; Atrial Fib; Cancer; PROSTATE; CHF; COPD; Hypertension; Prostate Cancer;tl2 - Immunization history:: Adult Immunizations up to date. - Social history:: Smoking status: Patient uses tobacco products, smokes one pack cigarettes per day. - Ebola Screening: : No symptoms or risks identified at this time. ROS: 22:00 Constitutional: Negative for fever, chills, and weight loss, Eyes: Negative for injury, pm1 pain, redness, and discharge, ENT: Negative for injury, pain, and discharge, Neck: Negative for injury, pain, and swelling, Cardiovascular: Negative for chest pain, palpitations, and edema, Abdomen/GI: Negative for abdominal pain, nausea, vomiting, diarrhea, and constipation, Back: Negative for injury and pain, : Negative for injury, bleeding, discharge, and swelling, MS/Extremity: Negative for injury and deformity, Skin: Negative for injury, rash, and discoloration. 22:00 Neuro: Negative for headache, weakness, numbness, tingling, and seizure. 22:00 Respiratory: Positive for shortness of breath, Negative for sputum production, wheezing. Exam: 22:00 Constitutional: This is a well developed, well nourished patient who is awake, alert, pm1 and in no acute distress. Head/Face: Normocephalic, atraumatic. Eyes: Pupils equal round and reactive to light, extra-ocular motions intact. Lids and lashes normal. Conjunctiva and sclera are non-icteric and not injected. Cornea within normal limits. Periorbital areas with no swelling, redness, or edema. ENT: Nares patent. No nasal discharge, no septal abnormalities noted. Tympanic membranes are normal and external auditory canals are clear. Oropharynx with no redness, swelling, or masses, exudates, or evidence of obstruction, uvula midline. Mucous membranes moist. Neck: Trachea midline, no thyromegaly or masses palpated, and no cervical lymphadenopathy. Supple, full range of motion without nuchal rigidity, or vertebral point tenderness. No Meningismus. Chest/axilla: Normal chest wall appearance and motion. Nontender with no deformity. No lesions are appreciated. Cardiovascular: Regular rate and rhythm with a normal S1 and S2. No gallops, murmurs, or rubs. Normal PMI, no JVD. No pulse deficits. 22:00 Abdomen/GI: Soft, non-tender, with normal bowel sounds. No distension or tympany. No guarding or rebound. No evidence of tenderness throughout. Back: No spinal tenderness. No costovertebral tenderness. Full range of motion. Skin: Warm, dry with normal turgor. Normal color with no rashes, no lesions, and no evidence of cellulitis. MS/ Extremity: Pulses equal, no cyanosis. Neurovascular intact. Full, normal range of motion. 22:00 Respiratory: the patient does not display signs of respiratory distress, Respirations: normal, Breath sounds: are clear throughout. 22:00 Neuro: Orientation: is normal, Motor: is normal, moves all fours, Sensation: is normal, no obvious gross deficits. Vital Signs: 20:33 BP 185 / 111; Pulse 84; Resp 22; Pulse Ox 96% on R/A; Weight 68.04 kg; Height 5 ft. 9 tl2 in. (175.26 cm); Pain 5/10; 21:40 BP 218 / 110; Pulse 93; Resp 24; Pulse Ox 96% on R/A; tl2 22:21 Pulse 78; Resp 22; Pulse Ox 96% on R/A; tl2 22:56 BP 210 / 104 (man/); Pulse 88; Resp 19; Pulse Ox 96% on R/A; tl2 23:15 BP 235 / 115; Pulse 86; Resp 20; Pulse Ox 96% on R/A; tl2 02/25 00:07 BP 181 / 97; Pulse 72; Resp 18; Pulse Ox 95% on R/A; tl2 02/24 20:33 Body Mass Index 22.15 (68.04 kg, 175.26 cm) tl2 MDM: 02/24 20:40 Patient medically screened. pm1 21:00 ED course: Shortness of breath resolved by EMS in route with breathing treatment. pm1 22:35 Data reviewed: vital signs. Data interpreted: Pulse oximetry: on room air is 96 %. pm1 Interpretation: normal. Counseling: I had a detailed discussion with the patient and/or guardian regarding: the historical points, exam findings, and any diagnostic results supporting the discharge/admit diagnosis, lab results, radiology results, the need for outpatient follow up, to return to the emergency department if symptoms worsen or persist or if there are any questions or concerns that arise at home. 02/24 20:46 Order name: Basic Metabolic Panel; Complete Time: 21:29 pm1 02/24 20:46 Order name: CBC with Diff; Complete Time: 22:23 pm1 02/24 20:46 Order name: LFT's; Complete Time: 21:29 pm1 02/24 20:46 Order name: Magnesium; Complete Time: 21:29 pm1 02/24 20:46 Order name: NT PRO-BNP; Complete Time: 21:29 pm1 02/24 20:46 Order name: PT-INR; Complete Time: 21:51 pm1 02/24 20:45 Order name: Shoulder Left (2 View) XRAY; Complete Time: 21:58 pm1 02/24 20:46 Order name: Troponin (emerg Dept Use Only); Complete Time: 21:29 pm1 02/24 20:46 Order name: XRAY Chest (1 view); Complete Time: 21:58 pm1 02/24 22:14 Order name: CBC Smear Scan; Complete Time: 22:23 EDMS 02/24 20:46 Order name: EKG; Complete Time: 20:47 pm1 02/24 20:46 Order name: Cardiac monitoring; Complete Time: 20:47 pm1 02/24 20:46 Order name: EKG - Nurse/Tech; Complete Time: 21:06 pm1 02/24 20:46 Order name: IV Saline Lock; Complete Time: 20:47 pm1 02/24 20:46 Order name: Labs collected and sent; Complete Time: 20:53 pm1 02/24 20:46 Order name: O2 Per Protocol; Complete Time: 20:47 pm1 02/24 20:46 Order name: O2 Sat Monitoring; Complete Time: 20:47 pm1 Administered Medications: 21:40 Drug: Lasix 40 mg Route: IVP; Site: left antecubital; tl2 23:39 Follow up: Response: No adverse reaction; Marked relief of symptoms tl2 21:40 Drug: predniSONE 60 mg Route: PO; tl2 23:40 Follow up: Response: No adverse reaction; Marked relief of symptoms tl2 22:28 Drug: Potassium Chloride 40 mEq Route: PO; tl2 23:40 Follow up: Response: No adverse reaction tl2 23:15 Drug: Lisinopril 10 mg Route: PO; tl2 02/25 00:30 Follow up: Response: No adverse reaction ak1 01:00 Follow up: Response: No adverse reaction; Blood pressure is lowered tl2 02/24 23:15 Drug: Metoprolol 50 mg Route: PO; tl2 02/25 00:30 Follow up: Response: No adverse reaction ak1 01:01 Follow up: Response: No adverse reaction; Blood pressure is lowered tl2 Disposition: 01:07 Co-signature as Attending Physician, Jonathon Chin MD. pkl Disposition: 02/25/18 00:16 Discharged to Home. Impression: Chronic obstructive pulmonary disease with (acute) exacerbation. - Condition is Stable. - Discharge Instructions: How to Use an Inhaler, Chronic Obstructive Pulmonary Disease Exacerbation. - Prescriptions for Prednisone 20 mg Oral Tablet - take 3 tablet by ORAL route once daily for 5 days; 15 tablet. Zithromax Z- Adin 250 mg Oral Tablet - take 1 tablet by ORAL route as directed for 5 days Day 1 - take two (2) tablets one time. Day 2, 3, 4 , 5 take one (1) tablet once daily.; 6 tablet. Albuterol Sulfate 90 mcg/actuation - inhale 1-2 puff by INHALATION route every 4-6 hours; 1 Inhaler. - Medication Reconciliation Form, Thank You Letter, Antibiotic Education, Prescription Opioid Use form. - Follow up: Emergency Department; When: As needed; Reason: Worsening of condition. Follow up: Private Physician; When: 2 - 3 days; Reason: Recheck today's complaints, Continuance of care, Re-evaluation by your physician. - Problem is new. - Symptoms have improved. Signatures: Dispatcher [employer] EDMS Jonathon Chin MD MD pkl Marinas, Patrick, [employer] pm1 Nelia May RN RN tl2 Crystal Lord RN ak1 Corrections: (The following items were deleted from the chart) 01:02 00:16 02/25/2018 00:16 Discharged to Home. Impression: Chronic obstructive pulmonary tl2 disease with (acute) exacerbation. Condition is Stable. Forms are Medication Reconciliation Form, Thank You Letter, Antibiotic Education, Prescription Opioid Use. Follow up: Emergency Department; When: As needed; Reason: Worsening of condition. Follow up: Private Physician; When: 2 - 3 days; Reason: Recheck today's complaints, Continuance of care, Re-evaluation by your physician. Problem is new. Symptoms have improved. pm1
[2018-02-25] MEDS ORDERED: ACETAMINOPHEN 500 MG TAB ONE (00:51)
[2018-02-25 03:16] VITALS: BP 181/97; O2SAT 95
--- NOTE | 2018-02-25 14:38 | EKG ---
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: AURELIA MEASUREMENT RESULTS: Intervals: Rate: 83 [place]: 158 QRSD: 118 QT: 434 QTc: 509 [place]: P: 69 [place]: 158 QRS: 44 T: 60 INTERPRETIVE STATEMENTS: Sinus rhythm with occasional premature ventricular complexes Possible Left atrial enlargement Left ventricular hypertrophy with QRS widening Cannot rule out Inferior infarct, age undetermined Prolonged QT Abnormal ECG Compared to ECG 01/21/2018 16:57:25 Ventricular premature complex(es) now present Left ventricular hypertrophy now present Myocardial infarct finding now present Prolonged QT interval now present ST (T wave) deviation no longer present Electronically Signed On 02-25-18 14:36:02 ASSISTANT COUNSEL by Cyrus Porter
== END 2018-02-25 01:02 | disposition home or self-care (01) ==
LOC: ER 20:24
DX: J44.1 Chronic obstructive pulmonary disease with (acute) exacerbation (principal); I11.0 Hypertensive heart disease with heart failure; I50.9 Heart failure, unspecified; I48.91 Unspecified atrial fibrillation; I49.1 Atrial premature depolarization; I45.81 Long QT syndrome; F17.210 Nicotine dependence, cigarettes, uncomplicated; Z85.46 Personal history of malignant neoplasm of prostate
CPT/HCPCS: 36415; 71045; 80048; 80076; 83735; 83880; 84484; 85025; 85610; 93005; 96374; 99284; J1940; J7512

== ENCOUNTER 2018-03-07 22:56 | Observation (INO) | payer OTHER ==
--- OUTSIDE RECORDS SUMMARY | 2018-03-07 22:58 | XMS REPORT ---
:1950 [facility] [address] [place] [address] Care Team Providers Name Role Phone Unavailable Unavailable Unavailable Payers Payer Name Policy Type Policy Number Effective Date Expiration Date Problems This patient has no known problems. Allergies, Adverse Reactions, Alerts Allergy Name Allergy Status Severity Reaction(s) Onset Inactive Treating Comments Type Date Date Clinician diphenhydramine DA Active U 2017- 806 00:00: 00 Medications This patient has no known medications.
[2018-03-07] MEDS ORDERED: IPRATROPIUM BROM 0.5MG/2.5ML ONE (23:36)
[2018-03-07] MEDS ORDERED: ALBUTEROL 2.5 MG/3 ML NEB SOL ONE (23:36)
[2018-03-07] MEDS ORDERED: ASPIRIN 81 MG CHEWABLE TABLET ONE (23:36)
[2018-03-08 00:11] LABS: Absolute Lymphocytes (CBC) 2.2 K/uL (0.7-4.9); Absolute Monocytes 1.3 K/uL (0.1-1.3); Absolute Neutrophil 6.1 K/uL (1.8-8.0); Basophils % 0.8 % (0-1.3); Eosinophils % 2.8 % (0-4.4); Hematocrit 33.2 % (39.6-49.0); Lymphocytes % 22.2 % (15.3-44.8); MPV 9.1 fL (7.6-11.3); Monocytes % 12.7 % (3.3-12.3); RBC Red Blood Cell Count 5.01 M/uL (4.33-5.43)
[2018-03-08 00:19] LABS: Protime INR 1.35
[2018-03-08 00:27] LABS: ALT/SGPT 22 U/L (12-78); AST/SGOT 20 U/L (15-37); Albumin 3.3 g/dL (3.4-5.0); Alkaline Phosphatase 111 U/L (45-117); BUN Blood Urea Nitrogen 19 mg/dL (7-18); Bicarbonate 27 mmol/L (21-32); Bilirubin Direct < 0.1 mg/dL (0-0.2); Bilirubin Total 0.3 mg/dL (0.2-1.0); Glucose Level 126 mg/dL (74-106); Magnesium 2.3 mg/dL (1.8-2.4); NT PRO-BNP 7868 pg/mL (<125); Potassium 3.7 mmol/L (3.5-5.1); Protein, Total 6.6 g/dL (6.4-8.2); Sodium Level 143 mmol/L (136-145); Troponin (Emerg Dept Use Only) 0.08 ng/mL (0.0-0.045)
[2018-03-08 01:11] LABS: Anisocytosis 2+; Blood Morphology Comment NOTED (NOT SEEN); Hypochromasia 1+; Ovalocytes 1+; Platelet Estimate ADEQ; Urine White Blood Cell Casts OK
[2018-03-08] MEDS ORDERED: METOPROLOL TAR 25 MG TAB ONE (01:46)
--- NOTE | 2018-03-08 01:48 | ER ---
Nurse's Notes [facility] Name: Mark Terrell Age: 67 yrs Sex: Male : 1950 Arrival Date: 03/07/2018 Time: 22:58 Bed 15 Private MD: Diagnosis: Chest pain, unspecified Presentation: 03/07 23:02 Presenting complaint: EMS states: they were toned out for report of pt having shortness bb of breath with chest pain. Transition of care: patient was not received from another setting of care. Onset of symptoms was March 07, 2018 at 16:00. Risk Assessment: Do you want to hurt yourself or someone else? Patient reports no desire to harm self or others. Initial Sepsis Screen: Does the patient meet any 2 criteria? No. Patient's initial sepsis screen is negative. Does the patient have a suspected source of infection? No. Patient's initial sepsis screen is negative. Care prior to arrival: Medication(s) given: Albuterol Neb x 1, Atrovent Neb x 1. 23:02 Method Of Arrival: EMS: [facility] bb 23:02 Acuity: ARIEL 3 bb Triage Assessment: 23:12 General: Appears comfortable, unkempt, Behavior is calm, cooperative, appropriate for cc3 age. Pain: Complains of pain in chest. Historical: - Allergies: 23:03 Benadryl; bb - Home Meds: 23:03 Unable to obtain [Active]; bb - PMHx: 23:03 Aneurysm; BRAIN; Atrial Fib; Cancer; PROSTATE; CHF; COPD; Hypertension; Prostate Cancer;bb - PSHx: 23:03 surgery for brain aneurysm; bb - Immunization history:: Adult Immunizations unknown. - Social history:: Smoking status: Patient uses tobacco products, smokes one-half pack cigarettes per day, Patient/guardian denies using alcohol, street drugs. - Ebola Screening: : No symptoms or risks identified at this time. Screenin:12 Abuse screen: Denies threats or abuse. Denies injuries from another. Nutritional cc3 screening: No deficits noted. Tuberculosis screening: No symptoms or risk factors identified. Fall Risk Ambulatory Aid- None/Bed Rest/Nurse Assist (0 pts). Gait- Normal/Bed Rest/Wheelchair (0 pts) Mental Status- Oriented to own ability (0 pts). Assessment: 23:12 General: see triage assessment. cc3 03/08 00:13 Reassessment: Patient appears in no apparent distress at this time. Patient and/or cc3 family updated on plan of care and expected duration. Pain level reassessed. Patient is alert, oriented x 3, equal unlabored respirations, skin warm/dry/pink. 01:25 Reassessment: Patient appears in no apparent distress at this time. Patient and/or cc3 family updated on plan of care and expected duration. Pain level reassessed. Patient is alert, oriented x 3, equal unlabored respirations, skin warm/dry/pink. 02:21 Reassessment: Patient appears in no apparent distress at this time. Patient and/or cc3 family updated on plan of care and expected duration. Pain level reassessed. Patient is alert, oriented x 3, equal unlabored respirations, skin warm/dry/pink. 02:50 Reassessment: Patient for admission to room 223, report called and handed over to RN katey Gómez for continuity of care. 03:05 Reassessment: Patient appears in no apparent distress at this time. Patient and/or cc3 family updated on plan of care and expected duration. Pain level reassessed. Patient is alert, oriented x 3, equal unlabored respirations, skin warm/dry/pink. Patient left ER for admission vitally stable by wheelchair [facility]. Vital Signs: 03/07 23:03 BP 174 / 98; Pulse 89; Resp 20 S; Temp 98.2(O); Pulse Ox 99% on R/A; Weight 85.73 kg bb (R); Height 5 ft. 11 in. (180.34 cm) (R); 03/08 00:28 BP 168 / 94; Pulse 85; Resp 19 S; Pulse Ox 97% on R/A; cc3 01:34 BP 163 / 82; Pulse 83; Resp 18 S; Pulse Ox 96% on R/A; cc3 02:07 BP 157 / 90; Pulse 82; Resp 21 S; Pulse Ox 99% on R/A; cc3 03:02 BP 155 / 97; Pulse 71; Resp 20 S; Pulse Ox 97% on R/A; cc3 03/07 23:03 Body Mass Index 26.36 (85.73 kg, 180.34 cm) ED Course: 03/07 22:58 Patient arrived in ED. em1 23:02 Triage completed. bb 23:03 Arm band placed on Patient placed in an exam room, on a stretcher, on conveyor monitor, bb on pulse oximetry. EKG completed in triage. Results shown to MD. 23:07 Satish Michel PA is PHCP. cp 23:07 Jaylan Browne MD is Attending Physician. cp 23:12 Maria De Jesus Mckee is Primary Nurse. cc3 23:12 Patient has correct armband on for positive identification. Bed in low position. Call cc3 light in reach. Side rails up X2. night monitor on. Pulse ox on. NIBP on. 23:31 X-ray completed. Portable x-ray completed in exam room. Patient tolerated procedure sg4 well. 23:32 XRAY Chest (1 view) In Process Unspecified. EDMS 23:45 Inserted saline lock: 20 gauge in right antecubital area, using aseptic technique. cc3 Blood collected. 03/08 01:48 Jose Mason MD is Hospitalizing Provider. cp 02:50 No provider procedures requiring assistance completed. Patient admitted, IV remains in cc3 place. Administered Medications: 03/07 23:30 Drug: Aspirin Chewable Tablet 324 mg Route: PO; cc3 23:30 Follow up: Response: No adverse reaction cc3 23:31 Drug: Albuterol 2.5 mg Route: Inhalation; cc3 23:31 Drug: AtroVENT Aerosol 0.5 mg Route: Inhalation; cc3 03/08 01:35 Drug: Metoprolol 25 mg Route: PO; cc3 02:07 Follow up: Response: No adverse reaction; Blood pressure is lowered cc3 02:00 Drug: Lasix 20 mg Route: IVP; Site: right forearm; cc3 02:30 Follow up: Response: No adverse reaction cc3 02:06 Drug: Lovenox 40 mg Route: Sub-Q; Site: left lower abdomen; cc3 02:30 Follow up: Response: No adverse reaction cc3 Outcome: 01:48 Decision to Hospitalize by Provider. cp 02:50 Admitted to Med/surg accompanied by venice, via wheelchair, room 223, with chart, Report cc3 called to LASHAY Gmóez 02:50 Condition: stable 02:50 Instructed on the need for admit, Demonstrated understanding of instructions. 03:10 Patient left the ED. cc3 Signatures: Dispatcher [employer] Myriam Kevin, RN RN Hoang Ibrahim em1 Satish Michel PA PA cp Cordel, Charlene cc3 Sridevi Metzger sg4
--- NOTE | 2018-03-08 01:49 | EDPHYS ---
Physician Documentation [facility] Name: Mark Terrell Age: 67 yrs Sex: Male : 1950 Arrival Date: 03/07/2018 Time: 22:58 Bed 15 Private MD: ED Physician Jaylan Browne HPI: 03/07 23:20 This 67 yrs old Male presents to ER via EMS with complaints of chest pain, cp shortness of breath. Historical: - Allergies: 23:03 Benadryl; bb - Home Meds: 23:03 Unable to obtain [Active]; bb - PMHx: 23:03 Aneurysm; BRAIN; Atrial Fib; Cancer; PROSTATE; CHF; COPD; Hypertension; Prostate Cancer;bb - PSHx: 23:03 surgery for brain aneurysm; bb - Immunization history:: Adult Immunizations unknown. - Social history:: Smoking status: Patient uses tobacco products, smokes one-half pack cigarettes per day, Patient/guardian denies using alcohol, street drugs. - Ebola Screening: : No symptoms or risks identified at this time. ROS: 23:25 Constitutional: Negative for body aches, chills, fever, poor PO intake. cp 23:25 Eyes: Negative for injury, pain, redness, and discharge. cp Exam: 23:10 ECG was reviewed by the Attending Physician. cp 23:30 Constitutional: The patient appears in no acute distress, alert, awake, cp non-diaphoretic, non-toxic, well developed, unkempt. 23:30 Head/Face: Normocephalic, atraumatic. cp Vital Signs: 23:03 BP 174 / 98; Pulse 89; Resp 20 S; Temp 98.2(O); Pulse Ox 99% on R/A; Weight 85.73 kg bb (R); Height 5 ft. 11 in. (180.34 cm) (R); 03/08 00:28 BP 168 / 94; Pulse 85; Resp 19 S; Pulse Ox 97% on R/A; cc3 01:34 BP 163 / 82; Pulse 83; Resp 18 S; Pulse Ox 96% on R/A; cc3 02:07 BP 157 / 90; Pulse 82; Resp 21 S; Pulse Ox 99% on R/A; cc3 03:02 BP 155 / 97; Pulse 71; Resp 20 S; Pulse Ox 97% on R/A; cc3 03/07 23:03 Body Mass Index 26.36 (85.73 kg, 180.34 cm) bb MDM: 03/07 23:07 Patient medically screened. cp 03/08 01:45 Data reviewed: vital signs, nurses notes, lab test result(s), EKG, radiologic studies, cp plain films. Test interpretation: by ED physician or midlevel provider: ECG, plain radiologic studies. Physician consultation: Jose Mason MD was called at 01:46, was contacted at 01:46, regarding admission, to the telemetry unit. patient's condition. 03/07 23:20 Order name: Basic Metabolic Panel; Complete Time: 00:56 cp 03/08 00:56 Interpretation: Normal except: CL 108; GLUC 126; BUN 19; CRE 1.41; GFR 50; CA 8.2. cp 03/07 23:20 Order name: CBC with Diff; Complete Time: 01:47 cp 03/08 00:56 Interpretation: Normal except: HGB 10.2; HCT 33.2; MCV 66.3; MCH 20.4; MCHC 30.7; PLT cp 280; RDW 22.8; MN% 12.7. 03/07 23:20 Order name: LFT's; Complete Time: 00:56 cp 03/08 01:11 Interpretation: Normal except: ALB 3.3; A/G 1.0. cp 03/07 23:20 Order name: Magnesium; Complete Time: 00:56 cp 03/07 23:20 Order name: NT PRO-BNP; Complete Time: 00:56 cp 03/08 00:56 Interpretation: Abnormal: NT PRO-BNP 7868. cp 03/07 23:20 Order name: PT-INR; Complete Time: 00:56 cp 03/08 01:11 Interpretation: Abnormal: PT 16.0. cp 03/07 23:20 Order name: Troponin (emerg Dept Use Only); Complete Time: 00:56 cp 03/08 01:11 Interpretation: Abnormal: TROPED 0.08. cp 03/08 00:16 Order name: CBC Smear Scan; Complete Time: 01:47 EDMS 03/08 02:37 Order name: Basic Metabolic Panel EDMS 03/08 02:37 Order name: Basic Metabolic Panel EDMS 03/08 02:37 Order name: CBC with Automated Diff EDMS 03/08 02:37 Order name: CBC with Automated Diff EDMS 03/08 02:37 Order name: Lipid Profile EDMS 03/08 02:37 Order name: Lipid Profile EDMS 03/07 23:20 Order name: XRAY Chest (1 view) cp 03/07 23:20 Order name: EKG; Complete Time: 23:21 cp 03/07 23:20 Order name: Cardiac monitoring; Complete Time: 23:22 cp 03/08 02:37 Order name: CONS Physician Consult EDMS 03/08 02:37 Order name: Heart Healthy EDMS 03/08 02:37 Order name: EKG Electrocardiogram EDMS 03/08 02:37 Order name: EKG Electrocardiogram EDMS 03/08 02:37 Order name: Troponin I EDMS 03/08 02:37 Order name: Troponin I EDMS 03/08 02:37 Order name: Troponin I EDMS 03/07 23:20 Order name: EKG - Nurse/Tech; Complete Time: 23:22 cp 03/07 23:20 Order name: IV Saline Lock; Complete Time: 23:22 cp 03/07 23:20 Order name: Labs collected and sent; Complete Time: 00:20 cp 03/07 23:20 Order name: O2 Per Protocol; Complete Time: 23:22 cp 03/07 23:20 Order name: O2 Sat Monitoring; Complete Time: 23:22 cp EC/05 23:10 Rate is 81 beats/min. Rhythm is regular. AL interval is normal. QRS interval is cp prolonged at 118 msec. QT interval is prolonged. T waves are Flattened in lead aVL. Interpreted by me. Reviewed by me. Administered Medications: 23:30 Drug: Aspirin Chewable Tablet 324 mg Route: PO; cc3 23:30 Follow up: Response: No adverse reaction cc3 23:31 Drug: Albuterol 2.5 mg Route: Inhalation; cc3 23:31 Drug: AtroVENT Aerosol 0.5 mg Route: Inhalation; cc3 03/08 01:35 Drug: Metoprolol 25 mg Route: PO; cc3 02:07 Follow up: Response: No adverse reaction; Blood pressure is lowered cc3 02:00 Drug: Lasix 20 mg Route: IVP; Site: right forearm; cc3 02:30 Follow up: Response: No adverse reaction cc3 02:06 Drug: Lovenox 40 mg Route: Sub-Q; Site: left lower abdomen; cc3 02:30 Follow up: Response: No adverse reaction cc3 Disposition: 21:27 Co-signature as Attending Physician, Jaylan Browne MD I agree with the assessment and wa plan of care. Disposition: 03/08/18 01:48 Hospitalization ordered by Jose Mason for Observation. Preliminary diagnosis is Chest pain, unspecified. - Bed requested for Telemetry/MedSurg (observation). - Status is Observation. cc3 - Condition is Stable. - Problem is an ongoing problem. - Symptoms have improved. UTI on Admission? No Signatures: Dispatcher [employer] EDMyriam Garza RN RN Satish Rodriguez PA PA cp Garcia, Cindy, RN RN Jaylan Browne MD MD wa Cordel, Charlene cc3 Corrections: (The following items were deleted from the chart) 00:56 00:56 Normal except: CL 108; GLUC 126; BUN 19; CRE 1.41; GFR 50. cp cp 02:40 01:48 Hospitalization Ordered by Jose Mason MD for Observation. Preliminary cg diagnosis is Chest pain, unspecified. Bed requested for Telemetry/MedSurg (observation). Status is Observation. Condition is Stable. Problem is an ongoing problem. Symptoms have improved. UTI on Admission? No. cp 03:10 02:40 03/08/2018 01:48 Hospitalization Ordered by Jose Mason MD for Observation. cc3 Preliminary diagnosis is Chest pain, unspecified. Bed requested for Telemetry/MedSurg (observation). Status is Observation. Condition is Stable. Problem is an ongoing problem. Symptoms have improved. UTI on Admission? No. cg
[2018-03-08] MEDS ORDERED: FUROSEMIDE 20 MG/ 2ML VIAL ONE (02:08)
[2018-03-08] MEDS ORDERED: ENOXAPARIN 40 MG/0.4 ML SQ ONE (02:09)
[2018-03-08] MEDS ORDERED: ACETAMINOPHEN 500 MG TAB PO PRN (02:33)
[2018-03-08 07:50] VITALS: BMI 22.9
[2018-03-08] MEDS: LISINOPRIL 10 MG TAB PO SCH (08:31)
[2018-03-08] MEDS: METOPROLOL TAR 50 MG TAB PO SCH ×2 (08:32→20:23)
[2018-03-08] MEDS: ENOXAPARIN 40 MG/0.4 ML SQ SCH (08:33)
[2018-03-08] MEDS: MORPHINE 4 MG/ML SYR IV PRN ×2 (08:33→20:24)
--- NOTE | 2018-03-08 08:38 | P.HP ---
Certification for Inpatient Patient admitted to: Observation With expected LOS: <2 Midnights Patient will require the following post-hospital care: None Practitioner: I am a practitioner with admitting privileges, knowledge of patient current condition, hospital course, and medical plan of care. Services: Services provided to patient in accordance with Admission requirements found in Title 42 Section 412.3 of the Code of Federal Regulations Patient History Date of Service: 03/08/18 Reason for admission: Chest pain rule out acute coronary syndrome History of Present Illness: Patient is a 67-year-old who was admitted to the hospital because of chest pain. Patient's pain started after he fell. He said he hit his left shoulder. He was having severe pain. Patient is currently homeless and lives under a tarp. He does not really do well taking care of himself most probably because of his financial situation. He would be better off living in a long term especially with the weather changing so often. Decision was made to admit the patient to the hospital for further evaluation. In ED x-rays to make sure there is not a fracture. Continue with current medications and plan of care. He did have a heart catheterization last year. The findings as mentioned below: The patient's LAD stent was widely patent. LAD had 50% lesions throughout it. The circumflex had 50% lesions throughout. The right coronary diffusely diseased in the mid to distal junction. There was an old stent. There is an 80% in-stent stenosis and just distal to the stenosis a 50% narrowing. A balloon angioplasty performed in the right coronary artery and there is less than 10% residual stenosis of both lesions. There was no LV-gram done. Allergies diphenhydramine HCl [From Benadryl] Adverse Reaction (Verified 12/04/17 06:25) Hives Home Medications: Aspirin [Aspirin EC 81 MG] 81 mg PO DAILY #90 tablet. 01/26/18 Acetaminophen [Tylenol Extra Strength] 500 mg PO Q4HP PRN 03/08/18 - Past Medical/Surgical History Has patient received pneumonia vaccine in the past: No Diabetic: Yes -: History of prostate cancer -: Hypertension -: History of brain aneurysm requiring surgery -: CHF, systolic dysfunction -: COPD -: Tobacco abuse -: Noncompliance -: Coronary disease, stents x3 to LAD/RCA(Feb 2016) -: Diabetes mellitus type 2 -: GERD -: anemia -: hyperlipidemia -: Prostate surgery -: Brain aneurysm surgery -: Toe surgery R. great toe/childhood -: Heart catheterization-3stents LAD/RCA Psychosocial/ Personal History: He is single, lives alone. He has no children. 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 - Family History Father Medical History: Cancer Notes: brain CA Mother Medical History: Cancer Notes: PANCREATIC CANCER Brother Medical History: Cancer Notes: lung CA - Social History Smoking Status: Current every day smoker Alcohol use: No CD- Drugs: No Caffeine use: Yes Place of Residence: [facility] Review of Systems 10-point ROS is otherwise unremarkable Physical Examination - Vital Signs Temperature: 97.2 F Blood Pressure: 176/86 Pulse: 72 Respirations: 20 Pulse Ox (%): 93 - Physical Exam General: Alert, In no apparent distress, Oriented x3 HEENT: Atraumatic, PERRLA, Mucous membr. moist/pink, EOMI, Sclerae nonicteric Neck: Supple, 2+ carotid pulse no bruit, No LAD, Without JVD or thyroid abnormality Respiratory: Clear to auscultation bilaterally, Normal air movement Cardiovascular: Regular rate/rhythm, Normal S1 S2, Systolic murmur Gastrointestinal: Normal bowel sounds, Soft and benign, Non-distended, No tenderness Musculoskeletal: No clubbing, No swelling, No tenderness Integumentary: No rashes Neurological: Normal gait, Normal speech, Normal strength at 5/5 x4 extr, Normal tone, Sensation intact, Cranial nerves 3-12 intact, Normal affect Lymphatics: No axilla or inguinal lymphadenopathy - Studies Laboratory Data (last 24 hrs) 03/07/18 23:45: PT 16.0 H, INR 1.35 03/07/18 23:45: WBC 9.9, Hgb 10.2 L, Hct 33.2 L, Plt Count 280 D 03/07/18 23:45: Sodium 143, Potassium 3.7, BUN 19 H, Creatinine 1.41 H, Glucose 126 H, Magnesium 2.3, Total Bilirubin 0.3, AST 20, ALT 22, Alkaline Phosphatase 111 Assessment & Plan - Problems (Diagnosis) (1) Acute on chronic systolic (congestive) heart failure Onset Date: 09/01/17 Current Visit: No Status: Acute (2) COPD exacerbation Onset Date: 12/19/15 Current Visit: No Status: Acute (3) Coronary artery disease Onset Date: 01/26/18 Current Visit: No Status: Acute (4) Hypoxemia Onset Date: 03/08/16 Current Visit: No Status: Acute (5) Asbestos exposure Onset Date: 09/08/17 Current Visit: No Status: Chronic (6) CAD (coronary artery disease) Current Visit: No Status: Chronic Qualifiers: Coronary Disease-Associated Artery/Lesion type: [place] artery [place] vs. transplanted heart: [place] heart Associated angina: without angina Qualified Code(s): I25.10 - Atherosclerotic heart disease of [place] coronary artery without angina pectoris (7) History of prostate cancer Current Visit: No Status: Chronic (8) Hyperlipidemia Onset Date: 07/19/16 Current Visit: No Status: Chronic Qualifiers: Hyperlipidemia type: mixed hyperlipidemia (9) Hypertension Onset Date: 02/05/16 Current Visit: No Status: Chronic Qualifiers: Hypertension type: essential hypertension (10) Nicotine dependence Onset Date: 04/03/17 Current Visit: No Status: Chronic Qualifiers: Nicotine product type: other Substance use status: in remission Qualified Code(s): F17.291 - Nicotine dependence, other tobacco product, in remission (11) Type 2 diabetes mellitus Onset Date: 12/10/16 Current Visit: No Status: Chronic Qualifiers: Diabetes mellitus retirement insulin use: without shutdown coordinator use Diabetes mellitus complication status: without complication Qualified Code(s): E11.9 - Type 2 diabetes mellitus without complications - Plan 1. Serial troponins and EKG 2. Cardiology consultation 3. Recent heart catheterization as detailed in HPI 4. Anti-platelet therapy, anti coagulation, beta-vlad, statin, and O2 as needed 5. IV morphine for pain 6. Nitro p.r.n. 7. Left shoulder x-ray 8. Social service 9. GI/DVT prophylaxis Discharge Plan: Home Plan to discharge in: 48 Hours - Advance Directives Does patient have a Living Will: No Does patient have a Durable POA for Healthcare: No - Code Status/Comfort Care Code Status Assessed: Yes Code Status: Full Code Critical Care: No Time Spent Managing PTS Care (In Minutes): 55
[2018-03-08] MEDS ORDERED: ASPIRIN EC 81 MG TAB PO SCH (09:00)
--- NOTE | 2018-03-08 09:58 | RAD REPORT ---
EXAM DESCRIPTION: RAD - Shoulder Left 2 View - 03/08/2018 9:52 am CLINICAL HISTORY: s/p fall and injury COMPARISON: Shoulder Left 2 View dated 02/24/2018 FINDINGS: No fracture or dislocation of the left shoulder is seen. Mildly displaced left posterior r ib fractures are present involving ribs number 4, 5, 6 and 7.
--- NOTE | 2018-03-08 10:22 | RAD REPORT ---
EXAM DESCRIPTION: RAD - Chest Single View - 03/07/2018 11:34 pm CLINICAL HISTORY: SOB Chest pain. COMPARISON: Chest Single View dated 02/24/2018; Chest Single View dated 01/21/2018; Chest Pa And Lat (2 Views) dated 12/05/2017; Chest Single View dated 12/03/2017; Shoulder Left 2 View dated 03/08/2018 FINDINGS: Portable technique limits examination quality. Mild pulmonary edema is seen. The heart is moderately enlarged in size. Recently detected left regulatory affairs analyst ior rib fractures on the left shoulder series are not well discerned on portable chest radiograph. IMPRESSION: Mild CHF versus volume overload.
[2018-03-08 11:16] LABS: Urine Appearance CLEAR; Urine Bilirubin NEGATIVE (NEG); Urine Blood NEGATIVE (NEG); Urine Color YELLOW; Urine Glucose NEGATIVE (NEG); Urine Protein 2+ (NEG); Urine Specific Gravity 1.025 (1.005-1.030); Urine Urobilinogen 0.2 mg/dL (0.2-1.0)
[2018-03-08 11:40] LABS: Urine Microscopic Reflex ORDER UMIC
[2018-03-08 11:41] LABS: Urine Amorphous Sediment 1+ /HPF (NONE SEEN); Urine Bacteria NONE SEEN /HPF (NONE SEEN); Urine Culture Reflex Order NOT NEEDED; Urine RBC NONE SEEN /HPF (NONE SEEN)
--- NOTE | 2018-03-08 13:32 | EKG ---
Test Date: 2018-03-07 Test Time: 23:03:33 Wrap Turner: SHILPI MEASUREMENT RESULTS: Intervals: Rate: 81 FL: 150 QRSD: 118 QT: 426 QTc: 494 [place]: P: 75 FL: 150 QRS: 69 T: 61 INTERPRETIVE STATEMENTS: Normal sinus rhythm Possible Left atrial enlargement Left ventricular hypertrophy with QRS widening Cannot rule out Inferior infarct, age undetermined Abnormal ECG Compared to ECG 02/24/2018 21:01:57 Ventricular premature complex(es) no longer present Prolonged QT interval no longer present Myocardial infarct finding still present Electronically Signed On 03-08-18 13:21:43 SIGNAL MAINTAINER HELPER by Cyrus Porter
[2018-03-08] MEDS ORDERED: ATORVASTATIN 20 MG TAB PO SCH (21:00)
--- NOTE | 2018-03-08 22:22 | CON ---
Date of Consultation: 03/08/2018 Reason For Consultation: Chest pain. History Of Present Illness: Mr. Terrell is a 67-year-old white male, very well known to us from pre vious admissions. He has a history of hypertension, brain aneurysm, prostate cancer, atrial fibrilla tion, congestive heart failure, COPD, hypertension, dyslipidemia. He has a history of coronary arter y disease, status post multiple stents in July of 2017. He underwent an angioplasty of in-stent reste nosis in the RCA. At that time, he had a circumflex and LAD stent that were patent. He has diffuse disease and diffuse plaquing distally in all his vessels. He has an ejection fraction of 30% to 35%. He came in after a fall, was found to have multiple posterior rib fractures. Chest x-ray showed CH F. He is pain free now. Denied PND, orthopnea, pedal edema, palpitations, or syncope. Allergies: HE IS ALLERGIC TO BENADRYL. Medications: The only medicine he takes at home is Tylenol and occasional aspirin. Review of Systems: Negative. Social History: Positive for tobacco, alcohol, and the fact that he lives in the [facility]. He re ceived some finances from the [place], but not enough for him to live in a house. This has been a chronic issue, and we have had Social Work see him in that regard. Physical Examination: Vital Signs: His blood pressure was 176/86. HEENT: Negative. Neck: Supple with no bruit, lymphadenopathy, JVD, or thyromegaly. Chest: Revealed some rales at both bases. Cardiac: Revealed a regular rhythm and rate with an S3 gallop. No murmurs or rubs. Abdomen: Benign. Extremities: Revealed 1+ edema. No clubbing, no cyanosis. Skin: Dry and intact. Pulses were present distally in the dorsalis pedis and posterior tibial bilat erally. Diagnostic Data: His troponin was 0.08 x2. BNP was 7868. Hemoglobin 10.2. Creatinine is 1.41. EK G is nonspecific. Chest x-ray showed CHF and posterior rib fractures. Impression And Plan: 1.Chronic systolic congestive heart failure with acute exacerbation. 2.Rib fractures. 3.Moderate renal insufficiency stage 2. 4.Anemia. 5.Elevated troponin and BNP secondary to elevated creatinine and chronic congestive heart failure an d chronic coronary artery disease. No acute coronary syndrome going on. 6.Coronary artery disease, status post multiple stents in the circumflex, left anterior descending, and angioplasty of an in-stent restenosis in the RCA in July of 2017. 7.Other issues include history of prostate cancer, brain aneurysm, hypertension that is poorly contr olled, atrial fibrillation that has resolved, dyslipidemia, chronic obstructive pulmonary disease. Mr. Terrell needs to have his present issues treated with medications. As with every consultation, we recommend that he gets on aspirin, metoprolol, Lasix, and then lisinopril, all of which are cheap to buy, but somehow, Mr. Terrell never takes his medication, no matter what we do with him. Again, Social Work consultation is always suggested. I have no plan to do any cardiac workup on him at this point. ZHEN/MARY ANN Voice ID: [id number] Report ID: [id number]
[2018-03-09] MEDS: MORPHINE 4 MG/ML SYR IV PRN (01:01)
[2018-03-09] MEDS ORDERED: METHYLPREDNISOLONE 125 MG INJ IV ONE (04:13)
[2018-03-09] MEDS ORDERED: ALBUTEROL 2.5 MG/3 ML NEB SOL NEB ONE (04:13)
[2018-03-09] MEDS ORDERED: IPRATROPIUM BROM 0.5MG/2.5ML NEB ONE (04:13)
[2018-03-09] MEDS ORDERED: FUROSEMIDE 20 MG/ 2ML VIAL IV ONE (05:04)
[2018-03-09 05:52] LABS: Absolute Lymphocytes (CBC) 2.6 K/uL (0.7-4.9); Absolute Monocytes 1.3 K/uL (0.1-1.3); Absolute Neutrophil 5.3 K/uL (1.8-8.0); Basophils % 0.8 % (0-1.3); Eosinophils % 2.8 % (0-4.4); Hematocrit 33.7 % (39.6-49.0); MPV 9.2 fL (7.6-11.3); Monocytes % 13.3 % (3.3-12.3); RBC Red Blood Cell Count 5.04 M/uL (4.33-5.43)
[2018-03-09 05:55] LABS: Potassium 4.4 mmol/L (3.5-5.1)
[2018-03-09 06:23] LABS: Anisocytosis 2+; Blood Morphology Comment NOTED (NOT SEEN); Hypochromasia 1+; Platelet Estimate ADEQ; Urine White Blood Cell Casts OK
[2018-03-09] MEDS: ALBUTEROL 2.5 MG/3 ML NEB SOL NEB SCH ×2 (08:34→13:45)
[2018-03-09] MEDS: IPRATROPIUM BROM 0.5MG/2.5ML NEB SCH ×2 (08:34→13:45)
[2018-03-09] MEDS: METOPROLOL TAR 50 MG TAB PO SCH (08:50)
[2018-03-09] MEDS: LISINOPRIL 10 MG TAB PO SCH (08:51)
[2018-03-09] MEDS: ENOXAPARIN 40 MG/0.4 ML SQ SCH (08:51)
--- NOTE | 2018-03-09 08:54 | RAD REPORT ---
EXAM DESCRIPTION: Neo Single View03/09/2018 5:32 am CLINICAL HISTORY: Shortness of breath COMPARISON: March 07, 2018 FINDINGS: Partial resolution in bilateral pulmonary opacities. The heart remains enlarged IMPRESSION: Improvement in mild CHF
[2018-03-09] MEDS ORDERED: ASPIRIN EC 81 MG TAB PO SCH (09:00)
[2018-03-09] MEDS ORDERED: LIDOCAINE 5% PATCH TOP SCH (09:00)
[2018-03-09 12:08] VITALS: BP 150/80
[2018-03-09 12:10] VITALS: O2SAT 95
--- NOTE | 2018-03-09 12:52 | EKG ---
Test Date: 2018-03-09 Test Time: 08:18:49 Rn Staff: AYSHA MEASUREMENT RESULTS: Intervals: Rate: 84 MT: 152 QRSD: 116 QT: 432 QTc: 510 [place]: P: 65 MT: 152 QRS: 72 T: 56 INTERPRETIVE STATEMENTS: Normal sinus rhythm Possible Left atrial enlargement Nonspecific T wave abnormality Prolonged QT Abnormal ECG Compared to ECG 03/07/2018 23:03:33 T-wave abnormality now present Prolonged QT interval now present Left ventricular hypertrophy no longer present Myocardial infarct finding no longer present Electronically Signed On 03-09-18 12:51:24 SIGN BOARD ERECTOR by Jitendra Willams
[2018-03-09 14:02] VITALS: TEMP 98.1
--- NOTE | 2018-03-09 17:04 | P.SSS ---
Patient History Date of Service: 03/09/18 Reason for admission: Chest pain rule out acute coronary syndrome History of Present Illness: Patient is a 67-year-old who was admitted to the hospital because of chest pain. Patient's pain started after he fell. He said he hit his left shoulder. He was having severe pain. Patient is currently homeless and lives under a tarp. He does not really do well taking care of himself most probably because of his financial situation. He would be better off living in a snf especially with the weather changing so often. Decision was made to admit the patient to the hospital for further evaluation. In ED x-rays to make sure there is not a fracture. Continue with current medications and plan of care. Allergies diphenhydramine HCl [From Benadryl] Adverse Reaction (Verified 12/04/17 06:25) Hives Home Medications: Aspirin [Aspirin EC 81 MG] 81 mg PO DAILY #90 tablet. 01/26/18 Acetaminophen [Tylenol Extra Strength] 500 mg PO Q4HP PRN 03/08/18 Atorvastatin Calcium [Lipitor*] 20 mg PO BEDTIME #30 tab 03/09/18 Lisinopril [Prinivil*] 10 mg PO DAILY #30 tab 03/09/18 Metoprolol Tartrate [Lopressor*] 50 mg PO BID #60 tab 03/09/18 - Past Medical/Surgical History Has patient received pneumonia vaccine in the past: No Diabetic: Yes -: History of prostate cancer -: Hypertension -: History of brain aneurysm requiring surgery -: CHF, systolic dysfunction -: COPD -: Tobacco abuse -: Noncompliance -: Coronary disease, stents x3 to LAD/RCA(Feb 2016) -: Diabetes mellitus type 2 -: GERD -: anemia -: hyperlipidemia -: Prostate surgery -: Brain aneurysm surgery -: Toe surgery R. great toe/childhood -: Heart catheterization-3stents LAD/RCA Psychosocial/ Personal History: He is single, lives alone. He has no children. 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 - Family History Father -: Cancer Notes: brain CA Mother -: Cancer Notes: PANCREATIC CANCER Brother -: Cancer Notes: lung CA - Social History Smoking Status: Current every day smoker Alcohol use: No CD- Drugs: No Caffeine use: Yes Place of Residence: Homeless Review of Systems 10-point ROS is otherwise unremarkable Physical Examination - Vital Signs Temperature: 98.1 F Blood Pressure: 150/80 Pulse: 70 Respirations: 20 Pulse Ox (%): 95 - Physical Exam General: Alert, In no apparent distress, Oriented x3 HEENT: Atraumatic, PERRLA, Mucous membr. moist/pink, EOMI, Sclerae nonicteric Neck: Supple, 2+ carotid pulse no bruit, No LAD, Without JVD or thyroid abnormality Respiratory: Clear to auscultation bilaterally, Normal air movement Cardiovascular: Regular rate/rhythm, Normal S1 S2 Gastrointestinal: Normal bowel sounds, No tenderness Musculoskeletal: No tenderness Integumentary: No rashes Neurological: Normal gait, Normal speech, Normal strength at 5/5 x4 extr, Normal tone, Normal affect Lymphatics: No axilla or inguinal lymphadenopathy Treatment Summary: Patient was admitted, antiplatelet therapy, anticoagulation, beta vlad, statin and oxygen were started as needed. Patient stated that he has not been taking any medications outside of the hospital and likely will not be getting any medications after discharge. Patient symptomatically improved, chest x-ray with improvement in CHF, troponins trending down. Patient asymptomatic, going down to smoke and with no complaints at this time. Inversions printed and given to patient so he could picker medications, though stated that he will likely will not get the medications. - Disposition Condition: GOOD Diet: AHA Activity: Ad kim Physician Review: Patient Assessed, Agree with Above Assessment and Plan Time Spent Managing Pts Care (In Minutes): 55
== END 2018-03-09 19:00 | disposition home or self-care (01) ==
LOC: ER 22:56 → ERHOLD 03-08 02:43 → 2ND 03-08 02:57
PROVIDERS: ADMIT Family Medicine; ATTEND Hospitalist
DX: I11.0 Hypertensive heart disease with heart failure (principal); I50.23 Acute on chronic systolic (congestive) heart failure; J44.1 Chronic obstructive pulmonary disease with (acute) exacerbation; I25.10 Atherosclerotic heart disease of native coronary artery without angina pectoris; R09.02 Hypoxemia; Z59.0 Homelessness; Z77.090 Contact with and (suspected) exposure to asbestos; E78.5 Hyperlipidemia, unspecified; F17.210 Nicotine dependence, cigarettes, uncomplicated; E11.9 Type 2 diabetes mellitus without complications; Z95.5 Presence of coronary angioplasty implant and graft; Z85.46 Personal history of malignant neoplasm of prostate; S22.49XA Multiple fractures of ribs, unspecified side, initial encounter for closed fracture; W19.XXXA Unspecified fall, initial encounter; Y92.9 Unspecified place or not applicable
CPT/HCPCS: 36415 ×2; 71045 ×2; 73030; 80048 ×2; 80061; 80076; 83735; 83880; 84484 ×3; 85025 ×2; 85610; 93005 ×2; 94640; 96372; 96374; 99285; G0378 ×2; J1650 ×3; J1940 ×2; J2930; 81003; 81015

== ENCOUNTER 2018-03-10 20:42 | Emergency (ER) | payer OTHER ==
--- OUTSIDE RECORDS SUMMARY | 2018-03-10 20:45 | XMS REPORT ---
:1950 Author Organization [facility] Address [address] [place] [address] Care Team Providers Name Role Phone Unavailable [...]
[2018-03-10] MEDS ORDERED: cloNIDine HCl 0.1 MG TAB ONE (21:06)
[2018-03-10] MEDS ORDERED: IPRATROPIUM BROM 0.5MG/2.5ML ONE (21:07)
[2018-03-10] MEDS ORDERED: LEVALBUTEROL 1.25 MG/3 ML NEB ONE (21:07)
[2018-03-10] MEDS ORDERED: HYDROCODONE/APAP 10/325 TAB ONE (21:07)
--- NOTE | 2018-03-10 21:19 | RAD REPORT ---
EXAM DESCRIPTION: Neo Single View03/10/2018 9:02 pm CLINICAL HISTORY: Chest pain FINDINGS: Mild bilateral pulmonary opacities are present likely representing interstitial pulmonary edema Heart is mildly to moderately enlarged. Subacute nondisplaced and mildly displaced left posterolateral rib fractures are noted. A pneumothora x is not seen
--- NOTE | 2018-03-10 22:15 | ER ---
Nurse's Notes [facility] Name: Mark Terrell Age: 67 yrs Sex: Male : 1950 Arrival Date: 03/10/2018 Time: 20:46 Bed 5 Private MD: Diagnosis: Chronic obstructive pulmonary disease, unspecified;Multiple fractures of ribs, left side Presentation: 03/10 20:46 Presenting complaint: EMS states: "He has left rib pain after breaking 3 ribs on jd3 [place] sunita. He is requesting pain medications for his broken ribs and a night stay. he say he doesn't have money for medications so he hasn't been taking any medications.". Transition of care: patient was not received from another setting of care. Onset of symptoms was March 10, 2018. Risk Assessment: Do you want to hurt yourself or someone else? Patient reports no desire to harm self or others. Initial Sepsis Screen: Does the patient meet any 2 criteria? RR > 20 per min. HR > 90 bpm. Yes Does the patient have a suspected source of infection? No. Patient's initial sepsis screen is negative. Care prior to arrival: None. 20:46 Method Of Arrival: EMS: [facility] j 20:46 Acuity: ARIEL 3 jd3 Historical: - Allergies: 20:49 Benadryl; jd3 - Home Meds: 20:49 None [Active]; jd3 - PMHx: 20:49 Aneurysm; BRAIN; Atrial Fib; Cancer; PROSTATE; CHF; COPD; Hypertension; Prostate Cancer;jd3 - PSHx: 20:49 surgery for brain aneurysm; jd3 - Immunization history:: Adult Immunizations up to date. - Social history:: Smoking status: Patient uses tobacco products, smokes one-half pack cigarettes per day. - Ebola Screening: : Patient negative for fever greater than or equal to 101.5 degrees Fahrenheit, and additional compatible Ebola Virus Disease symptoms. Screenin:52 Abuse screen: Denies threats or abuse. Nutritional screening: No deficits noted. jd3 Tuberculosis screening: No symptoms or risk factors identified. Fall Risk Fall in past 12 months (25 points). Ambulatory Aid- None/Bed Rest/Nurse Assist (0 pts). Gait- Normal/Bed Rest/Wheelchair (0 pts) Mental Status- Oriented to own ability (0 pts). Total Chiang Fall Scale indicates Low Risk Score (25-44 pts). Fall prevention measures have been instituted. Side Rails Up X 2 Placed close to Nursing Station Frequent Obs/Assesments occuring. Assessment: 21:14 General: Appears in no apparent distress. unkempt, Behavior is calm, cooperative, tl1 appropriate for age. Pain: Complains of pain in anterior aspect of left upper chest Pain does not radiate. Neuro: Level of Consciousness is awake, alert, obeys commands, Oriented to person, place, time, situation. Cardiovascular: Denies chest pain. Respiratory: Reports shortness of breath cough that is Airway is patent Trachea midline Respiratory effort is even, unlabored, Breath sounds with wheezes bilaterally. GI: Abdomen is non-distended, Bowel sounds present X 4 quads. Abd is soft and non tender X 4 quads. : No signs and/or symptoms were reported regarding the genitourinary system. EENT: No signs and/or symptoms were reported regarding the EENT system. Musculoskeletal: Reports pain in anterior aspect of left upper chest. Vital Signs: 20:52 BP 217 / 119; Pulse 103; Resp 26 S; Temp 98.0(O); Pulse Ox 95% on R/A; Weight 77.11 kg jd3 (R); Height 5 ft. 11 in. (180.34 cm) (R); Pain 9/10; 21:35 BP 188 / 101; Pulse 90; Resp 26; Pulse Ox 100% on Nebulizer Mask; tl1 21:52 BP 177 / 88; Pulse 91; Resp 20; Pulse Ox 95% on R/A; tl1 22:25 BP 168 / 98; Pulse 95; Resp 18; Pulse Ox 94% on R/A; lp1 20:52 Body Mass Index 23.71 (77.11 kg, 180.34 cm) jd3 ED Course: 20:46 Patient arrived in ED. jd3 20:49 [facility] kb 20:49 Satish Catalan MD is Attending Physician. kb 20:49 Triage completed. jd3 20:52 Arm band placed on. jd3 20:53 Patient has correct armband on for positive identification. Placed in gown. Bed in low jd3 position. Call light in reach. Side rails up X 1. 20:58 X-ray completed. Portable x-ray completed in exam room. Patient tolerated procedure bb2 well. 20:59 Chest Single View XRAY In Process Unspecified. EDMS 21:12 Jasmine Torres, RN is Primary Nurse. tl1 22:06 No provider procedures requiring assistance completed. Patient did not have IV access tl1 during this emergency room visit. Administered Medications: 21:02 Drug: [place] 10 mg-325 mg 1 tabs Route: PO; tl1 22:09 Follow up: Response: No adverse reaction; Marked relief of symptoms; Pain is decreased tl1 21:02 Drug: cloNIDine 0.2 mg Route: PO; tl1 22:09 Follow up: Response: No adverse reaction; Marked relief of symptoms; Blood pressure is tl1 lowered 21:02 Drug: Xopenex (3) 1.25 mg Route: Inhalation; tl1 22:09 Follow up: Response: No adverse reaction; Marked relief of symptoms tl1 21:02 Drug: AtroVENT Aerosol 0.5 mg Route: Inhalation; tl1 22:09 Follow up: Response: No adverse reaction; Marked relief of symptoms tl1 Outcome: 22:15 Discharge ordered by . katy 22:25 Discharged to home ambulatory. lp1 22:25 Condition: good 22:25 Discharge instructions given to patient, Instructed on discharge instructions, follow up and referral plans. Demonstrated understanding of instructions, follow-up care. 22:30 Patient left the ED. lp1 Signatures: Dispatcher [employer] EDPR Era Leung, POLLY-C SYSTEMS INTEGRATOR-Trisha Barnett RN RN lp1 Jasmine Torres, RN RN tl1 Anatoliy Carter RN RN jd3 Colleen Nolen bb2 Corrections: (The following items were deleted from the chart) 20:52 20:46 Presenting complaint: EMS states: "He has left rib pain after breaking 3 ribs on jd3 [place] sunita. He is requesting pain medications for his broken ribs and a night stay." jd3
--- NOTE | 2018-03-10 22:16 | EDPHYS ---
Physician Documentation [facility] Name: Mark Terrell Age: 67 yrs Sex: Male : 1950 Arrival Date: 03/10/2018 Time: 20:46 Bed 5 Private MD: ED Physician Satish Catalan HPI: 03/10 21:06 This 67 yrs old Male presents to ER via EMS with complaints of rib pain, kb wheezing. 21:06 The patient or guardian reports chest pain that is located primarily in the anterior kb aspect of left upper chest. Onset: The symptoms/episode began/occurred 2 week(s) ago. The pain does not radiate. Associated signs and symptoms: Pertinent positives: shortness of breath. The chest pain is described as aching. Duration: The patient or guardian reports a single episode, that is still ongoing. Modifying factors: The symptoms are alleviated by nothing. the symptoms are aggravated by cough, deep breath, movement, palpation of area. Severity of pain: At its worst the pain was moderate in the emergency department the pain is unchanged. The patient has experienced similar episodes in the past. The patient has been recently been admitted at [facility], was discharged yesterday. Pt states he fell on [place] and fractured three ribs. States he wasn't given anything for pain and it is still hurting. States he also has shortness of breath and cough from COPD. States he doesn't take his blood pressure medications. Pt is current smoker. EMS reports he requested a room to stay the night and some Morphine for pain. Historical: - Allergies: 20:49 Benadryl; jd3 - Home Meds: 20:49 None [Active]; jd3 - PMHx: 20:49 Aneurysm; BRAIN; Atrial Fib; Cancer; PROSTATE; CHF; COPD; Hypertension; Prostate Cancer;jd3 - PSHx: 20:49 surgery for brain aneurysm; jd3 - Immunization history:: Adult Immunizations up to date. - Social history:: Smoking status: Patient uses tobacco products, smokes one-half pack cigarettes per day. - Ebola Screening: : Patient negative for fever greater than or equal to 101.5 degrees Fahrenheit, and additional compatible Ebola Virus Disease symptoms. ROS: 21:05 Constitutional: Negative for fever, chills, and weight loss, ENT: Negative for injury, kb pain, and discharge, Neck: Negative for injury, pain, and swelling, Abdomen/GI: Negative for abdominal pain, nausea, vomiting, diarrhea, and constipation, Back: Negative for injury and pain, : Negative for injury, bleeding, discharge, and swelling, MS/Extremity: Negative for injury and deformity, Skin: Negative for injury, rash, and discoloration, Neuro: Negative for headache, weakness, numbness, tingling, and seizure. 21:05 Cardiovascular: Positive for chest pain, with movement, secondary to rib fractures. 21:05 Respiratory: Positive for shortness of breath, wheezing. Exam: 21:05 Constitutional: This is a well developed, well nourished patient who is awake, alert, kb and in no acute distress. Head/Face: Normocephalic, atraumatic. ENT: Nares patent. No nasal discharge, no septal abnormalities noted. Tympanic membranes are normal and external auditory canals are clear. Oropharynx with no redness, swelling, or masses, exudates, or evidence of obstruction, uvula midline. Mucous membranes moist. Neck: Trachea midline, no thyromegaly or masses palpated, and no cervical lymphadenopathy. Supple, full range of motion without nuchal rigidity, or vertebral point tenderness. No Meningismus. Chest/axilla: Normal chest wall appearance and motion. Nontender with no deformity. No lesions are appreciated. Cardiovascular: Regular rate and rhythm with a normal S1 and S2. No gallops, murmurs, or rubs. Normal PMI, no JVD. No pulse deficits. Abdomen/GI: Soft, non-tender, with normal bowel sounds. No distension or tympany. No guarding or rebound. No evidence of tenderness throughout. Back: No spinal tenderness. No costovertebral tenderness. Full range of motion. Skin: Warm, dry with normal turgor. Normal color with no rashes, no lesions, and no evidence of cellulitis. MS/ Extremity: Pulses equal, no cyanosis. Neurovascular intact. Full, normal range of motion. Neuro: Awake and alert, GCS 15, oriented to person, place, time, and situation. Cranial nerves II-XII grossly intact. Motor strength 5/5 in all extremities. Sensory grossly intact. Cerebellar exam normal. Normal gait. 21:05 Respiratory: the patient does not display signs of respiratory distress, Respirations: normal, Breath sounds: wheezing: expiratory that is mild, that is moderate, is scattered. Vital Signs: 20:52 BP 217 / 119; Pulse 103; Resp 26 S; Temp 98.0(O); Pulse Ox 95% on R/A; Weight 77.11 kg jd3 (R); Height 5 ft. 11 in. (180.34 cm) (R); Pain 9/10; 21:35 BP 188 / 101; Pulse 90; Resp 26; Pulse Ox 100% on Nebulizer Mask; tl1 21:52 BP 177 / 88; Pulse 91; Resp 20; Pulse Ox 95% on R/A; tl1 22:25 BP 168 / 98; Pulse 95; Resp 18; Pulse Ox 94% on R/A; lp1 20:52 Body Mass Index 23.71 (77.11 kg, 180.34 cm) jd3 MDM: 20:49 Patient medically screened. kb 21:06 Data reviewed: vital signs, nurses notes. Data interpreted: Pulse oximetry: on room air kb is 95 %. Interpretation: normal. 22:14 Counseling: I had a detailed discussion with the patient and/or guardian regarding: the kb historical points, exam findings, and any diagnostic results supporting the discharge/admit diagnosis, radiology results, the need for outpatient follow up, a family practitioner, to return to the emergency department if symptoms worsen or persist or if there are any questions or concerns that arise at home. 03/10 20:50 Order name: Chest Single View XRAY; Complete Time: 21:23 kb Administered Medications: 21:02 Drug: [place] 10 mg-325 mg 1 tabs Route: PO; tl1 22:09 Follow up: Response: No adverse reaction; Marked relief of symptoms; Pain is decreased tl1 21:02 Drug: cloNIDine 0.2 mg Route: PO; tl1 22:09 Follow up: Response: No adverse reaction; Marked relief of symptoms; Blood pressure is tl1 lowered 21:02 Drug: Xopenex (3) 1.25 mg Route: Inhalation; tl1 22:09 Follow up: Response: No adverse reaction; Marked relief of symptoms tl1 21:02 Drug: AtroVENT Aerosol 0.5 mg Route: Inhalation; tl1 22:09 Follow up: Response: No adverse reaction; Marked relief of symptoms tl1 Disposition: 03/11 07:48 Co-signature as Attending Physician, Satish Catalan MD I agree with the assessment and mónica plan of care. Disposition: 03/10/18 22:15 Discharged to Home. Impression: Chronic obstructive pulmonary disease, unspecified, Multiple fractures of ribs, left side. - Condition is Stable. - Discharge Instructions: Chronic Obstructive Pulmonary Disease, Rib Fracture, [id number]. - Medication Reconciliation Form, Thank You Letter, Antibiotic Education, Prescription Opioid Use form. - Follow up: Emergency Department; When: As needed; Reason: Worsening of condition. Follow up: Private Physician; When: 2 - 3 days; Reason: Recheck today's complaints, Continuance of care, Re-evaluation by your physician. Signatures: Dispatcher [employer] EDMS Era Leung, AIR CONDITIONER INSTALLER HELPER-C AIR CONDITIONER INSTALLER HELPER-Satish Villegas MD MD cha Pena, Laura, RN RN lp1 Jasmine Torres RN RN tl1 Anatoliy Carter RN RN jd3 Corrections: (The following items were deleted from the chart) 03/10 22:30 22:15 03/10/2018 22:15 Discharged to Home. Impression: Chronic obstructive pulmonary lp1 disease, unspecified; Multiple fractures of ribs, left side. Condition is Stable. Forms are Medication Reconciliation Form, Thank You Letter, Antibiotic Education, Prescription Opioid Use. Follow up: Emergency Department; When: As needed; Reason: Worsening of condition. Follow up: Private Physician; When: 2 - 3 days; Reason: Recheck today's complaints, Continuance of care, Re-evaluation by your physician. kb
[2018-03-10 22:34] VITALS: TEMP 98
[2018-03-10 22:38] VITALS: BP 168/98; O2SAT 94
== END 2018-03-10 22:30 | disposition home or self-care (01) ==
LOC: ER 20:42
DX: J44.9 Chronic obstructive pulmonary disease, unspecified (principal); S22.42XD Multiple fractures of ribs, left side, subsequent encounter for fracture with routine healing; W19.XXXD Unspecified fall, subsequent encounter; I11.0 Hypertensive heart disease with heart failure; I50.9 Heart failure, unspecified; I48.91 Unspecified atrial fibrillation; F17.210 Nicotine dependence, cigarettes, uncomplicated; Z85.46 Personal history of malignant neoplasm of prostate
CPT/HCPCS: 71045; 99284

== ENCOUNTER 2018-03-20 21:47 | Emergency (ER) | payer OTHER ==
--- OUTSIDE RECORDS SUMMARY | 2018-03-20 21:48 | XMS REPORT ---
:1950 Author Organization [facility] Address [address] [place] [address] Care Team Providers Name Role Phone Unavailable [...]
[2018-03-20] MEDS ORDERED: cloNIDine HCl 0.1 MG TAB ONE (22:19)
[2018-03-20] MEDS ORDERED: IPRATROPIUM BROM 0.5MG/2.5ML ONE (22:19)
[2018-03-20] MEDS ORDERED: LEVALBUTEROL 1.25 MG/3 ML NEB ONE (22:19)
--- NOTE | 2018-03-21 00:15 | EDPHYS ---
Physician Documentation [facility] Name: Mark Terrell Age: 67 yrs Sex: Male : 1950 Arrival Date: 03/20/2018 Time: 21:49 Bed 2 Private MD: ED Physician Mike Yoo HPI: 03/21 00:10 This 67 yrs old Male presents to ER via EMS with complaints of shortness of kb breath. 00:10 The patient has shortness of breath at rest, and the patient has a history of COPD, kb CHF. Onset: The symptoms/episode began/occurred this morning. Duration: The symptoms are continuous. The patient's shortness of breath is aggravated by nothing, is alleviated by nothing. Associated signs and symptoms: The patient has no apparent associated signs or symptoms. Severity of symptoms: At their worst the symptoms were mild in the emergency department the symptoms are unchanged. The patient has experienced similar episodes in the past, chronically. The patient has been recently seen at the [facility] Emergency Department, this week. Pt states his COPD or CHF is acting up. States he came to the ER because the cold front coming this weekend and it will be so cold his bones will hurt so he needs a place to stay.. Historical: - Allergies: 03/20 21:51 Benadryl; bb - PMHx: 21:51 Aneurysm; BRAIN; Atrial Fib; Cancer; PROSTATE; CHF; COPD; Hypertension; Prostate Cancer;bb - PSHx: 21:51 surgery for brain aneurysm; bb - Immunization history:: Adult Immunizations unknown. - Social history:: Smoking status: Patient uses tobacco products, smokes one-half pack cigarettes per day. - Ebola Screening: : No symptoms or risks identified at this time. ROS: 03/21 00:10 Constitutional: Negative for fever, chills, and weight loss, Cardiovascular: Negative kb for chest pain, palpitations, and edema, Abdomen/GI: Negative for abdominal pain, nausea, vomiting, diarrhea, and constipation, Back: Negative for injury and pain, MS/Extremity: Negative for injury and deformity, Skin: Negative for injury, rash, and discoloration, Neuro: Negative for headache, weakness, numbness, tingling, and seizure. Respiratory: Positive for shortness of breath, Negative for cough, dyspnea on exertion, hemoptysis, orthopnea, pleurisy, sputum production, wheezing. Exam: 00:10 Constitutional: This is a well developed, well nourished patient who is awake, alert, kb and in no acute distress. Head/Face: Normocephalic, atraumatic. ENT: Nares patent. No nasal discharge, no septal abnormalities noted. Tympanic membranes are normal and external auditory canals are clear. Oropharynx with no redness, swelling, or masses, exudates, or evidence of obstruction, uvula midline. Mucous membranes moist. Neck: Trachea midline, no thyromegaly or masses palpated, and no cervical lymphadenopathy. Supple, full range of motion without nuchal rigidity, or vertebral point tenderness. No Meningismus. Chest/axilla: Normal chest wall appearance and motion. Nontender with no deformity. No lesions are appreciated. Cardiovascular: Regular rate and rhythm with a normal S1 and S2. No gallops, murmurs, or rubs. Normal PMI, no JVD. No pulse deficits. Respiratory: Lungs have equal breath sounds bilaterally, clear to auscultation and percussion. No rales, rhonchi or wheezes noted. No increased work of breathing, no retractions or nasal flaring. Abdomen/GI: Soft, non-tender, with normal bowel sounds. No distension or tympany. No guarding or rebound. No evidence of tenderness throughout. Back: No spinal tenderness. No costovertebral tenderness. Full range of motion. Skin: Warm, dry with normal turgor. Normal color with no rashes, no lesions, and no evidence of cellulitis. MS/ Extremity: Pulses equal, no cyanosis. Neurovascular intact. Full, normal range of motion. Neuro: Awake and alert, GCS 15, oriented to person, place, time, and situation. Cranial nerves II-XII grossly intact. Motor strength 5/5 in all extremities. Sensory grossly intact. Cerebellar exam normal. Normal gait. Vital Signs: 03/20 21:51 BP 185 / 106; Pulse 90; Resp 20 S; Temp 98(O); Pulse Ox 94% on R/A; Weight 186 kg (R); bb Height 5 ft. 11 in. (180.34 cm) (R); 22:18 BP 172 / 113; Pulse 87; Resp 20; Pulse Ox 100% on Nebulizer Mask; ak1 23:35 BP 166 / 105; Pulse 85; Resp 18; Pulse Ox 91% on R/A; ak1 21:51 Body Mass Index 57.19 (186.00 kg, 180.34 cm) bb MDM: 21:52 Patient medically screened. kb 03/21 00:13 Data reviewed: vital signs, nurses notes. Data reviewed: I have discussed the patient's kb presentation/case with the attending Emergency Department Physician;. Data interpreted: Pulse oximetry: on room air is 94 %. Interpretation: acceptable. Counseling: I had a detailed discussion with the patient and/or guardian regarding: the historical points, exam findings, and any diagnostic results supporting the discharge/admit diagnosis, radiology results, the need for outpatient follow up, a family practitioner, to return to the emergency department if symptoms worsen or persist or if there are any questions or concerns that arise at home. 03/20 22:07 Order name: Chest Single View XRAY kb Administered Medications: 03/20 22:17 Drug: AtroVENT Aerosol 0.5 mg Route: Inhalation; ak1 22:17 Drug: cloNIDine 0.2 mg Route: PO; ak1 23:22 Follow up: Response: No adverse reaction ak1 :18 Drug: Xopenex (3) 1.25 mg Route: Inhalation; ak1 Disposition: 03/21/18 00:14 Discharged to Home. Impression: Chronic obstructive pulmonary disease with (acute) exacerbation, Essential (primary) hypertension. - Condition is Stable. - Discharge Instructions: Chronic Obstructive Pulmonary Disease, Hypertension, [id number]. - Medication Reconciliation Form, Thank You Letter, Antibiotic Education, Prescription Opioid Use form. - Follow up: Emergency Department; When: As needed; Reason: Worsening of condition. Follow up: Private Physician; When: 2 - 3 days; Reason: Recheck today's complaints, Continuance of care, Re-evaluation by your physician. Addendum: 03/28/2018 03:27 Co-signature as Attending Physician, Mike Yoo MD. g s Signatures: Dispatcher [employer] EDEra Bledsoe, POLLY-C POLLY-Myriam Mckeon, RN RN Crystal Dash RN RN ak iMke Yoo MD MD Corrections: (The following items were deleted from the chart) 03/21 00:40 00:14 03/21/2018 00:14 Discharged to Home. Impression: Chronic obstructive pulmonary ak1 disease with (acute) exacerbation; Essential (primary) hypertension. Condition is Stable. Forms are Medication Reconciliation Form, Thank You Letter, Antibiotic Education, Prescription Opioid Use. Follow up: Emergency Department; When: As needed; Reason: Worsening of condition. Follow up: Private Physician; When: 2 - 3 days; Reason: Recheck today's complaints, Continuance of care, Re-evaluation by your physician. kb
--- NOTE | 2018-03-21 00:15 | ER ---
Nurse's Notes [facility] Name: Mark Terrell Age: 67 yrs Sex: Male : 1950 Arrival Date: 03/20/2018 Time: 21:49 Bed 2 Private MD: Diagnosis: Chronic obstructive pulmonary disease with (acute) exacerbation;Essential (primary) hypertension Presentation: 03/20 21:50 Presenting complaint: EMS states: they were toned out for report of pt having SOB bb stating he "wants to be admitted". Transition of care: patient was not received from another setting of care. Onset of symptoms was March 20, 2018. Risk Assessment: Do you want to hurt yourself or someone else? Patient reports no desire to harm self or others. Initial Sepsis Screen: Does the patient meet any 2 criteria? No. Patient's initial sepsis screen is negative. Does the patient have a suspected source of infection? No. Patient's initial sepsis screen is negative. Care prior to arrival: None. 21:50 Method Of Arrival: EMS: [facility] bb 21:50 Acuity: ARIEL 3 bb Historical: - Allergies: 21:51 Benadryl; bb - PMHx: 21:51 Aneurysm; BRAIN; Atrial Fib; Cancer; PROSTATE; CHF; COPD; Hypertension; Prostate Cancer;bb - PSHx: 21:51 surgery for brain aneurysm; bb - Immunization history:: Adult Immunizations unknown. - Social history:: Smoking status: Patient uses tobacco products, smokes one-half pack cigarettes per day. - Ebola Screening: : No symptoms or risks identified at this time. Screenin:18 Abuse screen: Denies threats or abuse. Denies injuries from another. Nutritional ak1 screening: No deficits noted. Tuberculosis screening: Possible symptoms: cough for more than 2 weeks. Fall Risk None identified. Assessment: 22:18 General: Appears in no apparent distress. unkempt, Behavior is calm, cooperative. Pain: ak1 Denies pain. Neuro: No deficits noted. Cardiovascular: No deficits noted. Respiratory: Reports shortness of breath at rest cough that is non-productive, since 25 years ago per pt from start of smoking. GI: No signs and/or symptoms were reported involving the gastrointestinal system. : No signs and/or symptoms were reported regarding the genitourinary system. EENT: No signs and/or symptoms were reported regarding the EENT system. Derm: No signs and/or symptoms reported regarding the dermatologic system. Musculoskeletal: No signs and/or symptoms reported regarding the musculoskeletal system. 23:22 Reassessment: Patient appears in no apparent distress at this time. No changes from ak1 previously documented assessment. Patient and/or family updated on plan of care and expected duration. Pain level reassessed. Patient is alert, oriented x 3, equal unlabored respirations, skin warm/dry/pink. Patient states symptoms have improved. Vital Signs: 21:51 BP 185 / 106; Pulse 90; Resp 20 S; Temp 98(O); Pulse Ox 94% on R/A; Weight 186 kg (R); bb Height 5 ft. 11 in. (180.34 cm) (R); 22:18 BP 172 / 113; Pulse 87; Resp 20; Pulse Ox 100% on Nebulizer Mask; ak1 23:35 BP 166 / 105; Pulse 85; Resp 18; Pulse Ox 91% on R/A; ak1 21:51 Body Mass Index 57.19 (186.00 kg, 180.34 cm) bb ED Course: 21:49 Patient arrived in ED. ag3 21:51 Triage completed. bb 21:51 Arm band placed on Patient placed in an exam room, on a stretcher, on pulse oximetry. bb 21:52 Era Leung FNP-C [facility]. kb 21:52 Mike Yoo MD is Attending Physician. kb 22:17 Crystal Lord, RN is Primary Nurse. ak1 22:18 Patient has correct armband on for positive identification. Bed in low position. Side ak1 rails up X2. Pulse ox on. NIBP on. Door closed. Lights dimmed. Warm blanket given. PO fluids given. 22:55 Chest Single View XRAY In Process Unspecified. EDMS 03/21 00:23 No provider procedures requiring assistance completed. Patient did not have IV access ak1 during this emergency room visit. Administered Medications: 03/20 22:17 Drug: AtroVENT Aerosol 0.5 mg Route: Inhalation; ak1 22:17 Drug: cloNIDine 0.2 mg Route: PO; ak1 23:22 Follow up: Response: No adverse reaction ak1 22:18 Drug: Xopenex (3) 1.25 mg Route: Inhalation; ak1 Outcome: 03/21 00:14 Discharge ordered by MD. burns 00:23 Discharged to home ak1 00:23 Condition: stable 00:23 Discharge instructions given to patient, Instructed on discharge instructions, follow up and referral plans. Demonstrated understanding of instructions, follow-up care. 00:40 Patient left the ED. ak1 Signatures: Dispatcher [employer] EDEra Bledsoe, POLLY-C POLLY-Myriam Mckeon RN RN Crystal Dash RN RN ak1 Nisa Cintron3
[2018-03-21 01:36] VITALS: TEMP 98
[2018-03-21 01:39] VITALS: BP 166/105; O2SAT 91
--- NOTE | 2018-03-21 10:25 | RAD REPORT ---
EXAM DESCRIPTION: Neo Single View03/20/2018 10:55 pm CLINICAL HISTORY: Shortness of breath COMPARISON: March 10, 2017 FINDINGS: Mild to moderate left and mild right pulmonary opacities are present. The heart is modera tely enlarged IMPRESSION: Bilateral pulmonary opacities probably represent pulmonary edema. Pneumonia is less like ly
== END 2018-03-21 00:40 | disposition home or self-care (01) ==
LOC: ER 21:47
DX: J44.1 Chronic obstructive pulmonary disease with (acute) exacerbation (principal); I10 Essential (primary) hypertension; Z88.8 Allergy status to other drugs, medicaments and biological substances
CPT/HCPCS: 71045

== ENCOUNTER 2018-03-25 03:19 | Inpatient (IN) | payer OTHER ==
--- OUTSIDE RECORDS SUMMARY | 2018-03-25 03:21 | XMS REPORT ---
:1950 [facility] Address [address] [place] [address] Care Team Providers Name Role Phone Unavailable [...]
[2018-03-25] MEDS ORDERED: IPRATROPIUM BROM 0.5MG/2.5ML ONE (03:45)
[2018-03-25] MEDS ORDERED: ALBUTEROL 2.5 MG/3 ML NEB SOL ONE (03:45)
[2018-03-25 04:10] LABS: Absolute Lymphocytes (CBC) 2.5 K/uL (0.7-4.9); Absolute Monocytes 1.8 K/uL (0.1-1.3); Hematocrit 33.2 % (39.6-49.0); Lymphocytes % 23.2 % (15.3-44.8); MPV 9.4 fL (7.6-11.3); Monocytes % 16.4 % (3.3-12.3); RBC Red Blood Cell Count 5.08 M/uL (4.33-5.43)
[2018-03-25 04:14] LABS: Bilirubin Direct 0.2 mg/dL (0-0.2); Bilirubin Total 0.6 mg/dL (0.2-1.0); Blood Morphology Comment NOTED (NOT SEEN); CKMB Creatine Kinase MB 5.8 ng/mL (0.3-3.6); Platelet Estimate ADEQ; Potassium 3.4 mmol/L (3.5-5.1); Protein, Total 5.8 g/dL (6.4-8.2); Troponin (Emerg Dept Use Only) 0.08 ng/mL (0.0-0.045); Urine White Blood Cell Casts OK
[2018-03-25 04:15] LABS: Anisocytosis 1+; Hypochromasia 1+; Polychromasia SLIGHT
[2018-03-25] MEDS ORDERED: HYDRALAZINE HCL 20 MG/ML VIAL ONE (04:33)
[2018-03-25] MEDS ORDERED: ENOXAPARIN 80 MG/0.8 ML SQ ONE (04:38)
--- NOTE | 2018-03-25 04:50 | EDPHYS ---
Physician Documentation [facility] Name: Mark Terrell Age: 67 yrs Sex: Male : 1950 Arrival Date: 03/25/2018 Time: 03:21 Bed 8 Private MD: ED Physician Blair Kerr HPI: 03/25 04:38 This 67 yrs old Male presents to ER via EMS with complaints of Shortness Of tw4 Breath. 04:38 The patient has shortness of breath at rest. Onset: The symptoms/episode began/occurred tw4 today. Duration: The symptoms are chronic, are continuous, and are unchanged since they started. The patient's shortness of breath is aggravated by exertion, is alleviated by rest, application of supplemental oxygen. Associated signs and symptoms: The patient has no apparent associated signs or symptoms. The patient has not experienced similar symptoms in the past. Historical: - Allergies: 03:24 Benadryl; tl1 - Home Meds: 03:24 None [Active]; tl1 - PMHx: 03:24 Aneurysm; BRAIN; Atrial Fib; Cancer; PROSTATE; CHF; COPD; Hypertension; Prostate Cancer;tl1 - Immunization history:: Adult Immunizations not up to date. - Social history:: Smoking status: Patient uses tobacco products, smokes one-half pack cigarettes per day. - Ebola Screening: : Patient negative for fever greater than or equal to 101.5 degrees Fahrenheit, and additional compatible Ebola Virus Disease symptoms Patient denies exposure to infectious person Patient denies travel to an Ebola-affected area in the 21 days before illness onset. ROS: 04:38 Constitutional: Negative for fever, chills, and weight loss, Eyes: Negative for injury, tw4 pain, redness, and discharge, Cardiovascular: Negative for chest pain, palpitations, and edema, Abdomen/GI: Negative for abdominal pain, nausea, vomiting, diarrhea, and constipation, Back: Negative for injury and pain, MS/Extremity: Negative for injury and deformity, Skin: Negative for injury, rash, and discoloration, Neuro: Negative for headache, weakness, numbness, tingling, and seizure. 04:38 Respiratory: Positive for cough, shortness of breath, wheezing, Negative for dyspnea on exertion, hemoptysis, orthopnea. Exam: 04:38 Constitutional: This is a well developed, well nourished patient who is awake, alert, tw4 and in no acute distress. Head/Face: Normocephalic, atraumatic. Chest/axilla: Normal chest wall appearance and motion. Nontender with no deformity. No lesions are appreciated. Cardiovascular: Regular rate and rhythm with a normal S1 and S2. No gallops, murmurs, or rubs. Normal PMI, no JVD. No pulse deficits. Abdomen/GI: Soft, non-tender, with normal bowel sounds. No distension or tympany. No guarding or rebound. No evidence of tenderness throughout. MS/ Extremity: Pulses equal, no cyanosis. Neurovascular intact. Full, normal range of motion. Neuro: Awake and alert, GCS 15, oriented to person, place, time, and situation. Cranial nerves II-XII grossly intact. Motor strength 5/5 in all extremities. Sensory grossly intact. Cerebellar exam normal. Normal gait. 04:38 Respiratory: the patient does not display signs of respiratory distress, Respirations: normal, Breath sounds: wheezing: expiratory is scattered. Vital Signs: 03:25 BP 177 / 110; Pulse 89; Resp 20; Temp 98.1; Pulse Ox 93% on R/A; Weight 81.65 kg; tl1 Height 5 ft. 11 in. (180.34 cm); Pain 4/10; 03:56 BP 177 / 126; Pulse 87; Resp 20; Pulse Ox 100% on Nebulizer Mask; tl1 04:23 BP 177 / 117; Pulse 84; Resp 20; Pulse Ox 99% on 2 lpm NC; aa1 04:31 BP 164 / 82; Pulse 87; Resp 19; Pulse Ox 96% on R/A; tl1 05:27 BP 163 / 80; Pulse 86; Resp 21; Pulse Ox 96% on R/A; tl1 05:38 BP 152 / 80; Pulse 88; Resp 20; Temp 98.2; Pulse Ox 96% on R/A; Pain 0/10; tl1 03:25 Body Mass Index 25.10 (81.65 kg, 180.34 cm) tl1 MDM: 03:21 Patient medically screened. tw4 05:03 Differential diagnosis: Anemia Anxiety Reaction CHF exacerbation, Chronic Obstructive tw4 Pulmonary Disease Myocardial Infarction pneumonia, Pneumothorax pulmonary edema, Pulmonary Embolism reactive airway disease. Antibiotic administration: Not indicated. Data reviewed: vital signs, nurses notes. 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 Test interpretation: by ED physician or midlevel provider: ECG. Counseling: I had a detailed discussion with the patient and/or guardian regarding: the historical points, exam findings, and any diagnostic results supporting the discharge/admit diagnosis, lab results, radiology results. Physician consultation: Whit Fuentes MD was called at 05:25, and will see patient in ED. Admission orders: after a detailed discussion of the patient's condition and case, the admit orders are written by me. 03/25 03:33 Order name: BMP; Complete Time: 04:14 03/25 04:14 Interpretation: Normal except: K 3.4; CL 109; GLUC 125; BUN 26; CRE 1.43; GFR 49. 03/25 03:33 Order name: CBC with Diff; Complete Time: 05:02 03/25 04:15 Interpretation: Normal except: HGB 10.2; HCT 33.2; MCH 20.0; MCHC 30.7; MCV 65.3; RDW tw4 20.9. 03/25 03:33 Order name: Ckmb; Complete Time: 04:15 03/25 04:15 Interpretation: Normal except: CKMB 5.8. 03/25 03:33 Order name: CPK; Complete Time: 05:02 03/25 03:33 Order name: D-Dimer; Complete Time: 04:15 03/25 04:15 Interpretation: Normal except: D-DIMER 2277. 03/25 03:33 Order name: Hepatic Function; Complete Time: 04:15 03/25 04:15 Interpretation: Normal except: AST 182; ALT 236; ALK 133; TP 5.8; ALB 3.0. 03/25 03:33 Order name: Lipase; Complete Time: 05:02 03/25 03:33 Order name: NT PRO-BNP; Complete Time: 04:15 03/25 04:15 Interpretation: Normal except: NT PRO-BNP 70048. 03/25 03:33 Order name: Troponin (emerg Dept Use Only); Complete Time: 04:15 03/25 04:16 Interpretation: Normal except: TROPED 0.08. 03/25 04:14 Order name: Chest Single View XRAY 03/25 04:15 Order name: CBC Smear Scan; Complete Time: 05:02 EDMS 03/25 03:33 Order name: EKG; Complete Time: 03:34 03/25 03:33 Order name: Cardiac monitoring; Complete Time: 03:48 03/25 03:33 Order name: EKG - Nurse/Tech; Complete Time: 03:48 03/25 03:33 Order name: IV Saline Lock; Complete Time: 03:48 03/25 03:33 Order name: Labs collected and sent; Complete Time: 03:48 03/25 03:33 Order name: O2 Per Protocol; Complete Time: 03:48 03/25 03:33 Order name: O2 Sat Monitoring; Complete Time: 03:48 EC:03 Rate is 82 beats/min. Rhythm is regular. QRS [place] is Normal. VT interval is normal. QRS tw4 interval is normal. QT interval is normal. No Q waves. T waves are Normal. No ST changes noted. Clinical impression: Abnormal EKG without significant change. Interpreted by me. Reviewed by me. Administered Medications: 03:47 Drug: DuoNeb (3:1) (2.5 mg - 0.5 mg) 3 ml Route: Nebulizer; aa1 04:22 Follow up: Response: No adverse reaction; Marked relief of symptoms aa1 04:30 Follow up: Response: No adverse reaction; Marked relief of symptoms tl1 04:27 Drug: hydrALAZINE 20 mg Route: IV; Rate: bolus; Site: left antecubital; tl1 04:32 Follow up: IV Status: Completed infusion tl1 04:30 Drug: Lovenox 80 mg Route: Sub-Q; Site: abdomen; tl1 05:19 Follow up: Response: No adverse reaction; No change in condition tl1 05:18 Drug: Nitro-Bid Ointment 2 % 1 inches Route: Transdermal; Site: anterior chest wall; tl1 05:19 Drug: Lasix 40 mg Route: IVP; Infused Over: 4 mins; Site: left antecubital; tl1 05:39 Follow up: Response: No adverse reaction; Marked relief of symptoms; Blood pressure is tl1 lowered Disposition: 03/25/18 04:49 Hospitalization ordered by Whit Fuentes for Inpatient Admission. Preliminary diagnosis are Acute combined systolic (congestive) and diastolic (congestive) heart failure, Hypoxemia. - Bed requested for Telemetry/MedSurg (Inpatient). - Status is Inpatient Admission. tl1 - Condition is Stable. - Problem is new. - Symptoms have improved. UTI on Admission? No Signatures: Dispatcher [employer] EDMS Roseann Erickson RN RN Marian Mcpherson RN RN 1 Adrienne Augustine [facility] Jasmine Torres RN RN tl1 Blair Kerr MD MD tw4 Corrections: (The following items were deleted from the chart) 04:58 04:49 Hospitalization Ordered by Whit Fuentes MD for Inpatient Admission. Preliminary diagnosis is Acute combined systolic (congestive) and diastolic (congestive) heart failure; Hypoxemia. Bed requested for Telemetry/MedSurg (Inpatient). Status is Inpatient Admission. Condition is Stable. Problem is new. Symptoms have improved. UTI on Admission? No. tw4 05:03 04:58 03/25/2018 04:49 Hospitalization Ordered by Whit Fuentes MD for Inpatient ds1 Admission. Preliminary diagnosis is Acute combined systolic (congestive) and diastolic (congestive) heart failure; Hypoxemia. Bed requested for Telemetry/MedSurg (Inpatient). Status is Inpatient Admission. Condition is Stable. Problem is new. Symptoms have improved. UTI on Admission? No. mw 06:12 05:03 03/25/2018 04:49 Hospitalization Ordered by Whit Fuentes MD for Inpatient tl1 Admission. Preliminary diagnosis is Acute combined systolic (congestive) and diastolic (congestive) heart failure; Hypoxemia. Bed requested for Telemetry/MedSurg (Inpatient). Status is Inpatient Admission. Condition is Stable. Problem is new. Symptoms have improved. UTI on Admission? No. ds1
--- NOTE | 2018-03-25 04:50 | ER ---
Nurse's Notes [facility] Name: Mark Terrell Age: 67 yrs Sex: Male : 1950 Arrival Date: 03/25/2018 Time: 03:21 Bed 8 Private MD: Diagnosis: Acute combined systolic (congestive) and diastolic (congestive) heart failure;Hypoxemia Presentation: 03/25 03:22 Presenting complaint: EMS states: Patient called from [facility] and stated he was tl1 having trouble breathing. Patient also states he is suppose to be taking blood pressure medicines but he lives in the [facility] and home and forgets to take them. Transition of care: patient was not received from another setting of care. Onset of symptoms was March 25, 2018. Risk Assessment: Do you want to hurt yourself or someone else? Patient reports no desire to harm self or others. Initial Sepsis Screen: Does the patient meet any 2 criteria? No. Patient's initial sepsis screen is negative. Does the patient have a suspected source of infection? No. Patient's initial sepsis screen is negative. Care prior to arrival: None. 03:22 Method Of Arrival: EMS: [facility] tl1 03:22 Acuity: ARIEL 3 tl1 Triage Assessment: 05:28 General: Appears in no apparent distress. unkempt, Behavior is cooperative, appropriate tl1 for age. Respiratory: Onset: The symptoms/episode began/occurred gradually, the patient has mild shortness of breath. Historical: - Allergies: 03:24 Benadryl; tl1 - Home Meds: 03:24 None [Active]; tl1 - PMHx: 03:24 Aneurysm; BRAIN; Atrial Fib; Cancer; PROSTATE; CHF; COPD; Hypertension; Prostate Cancer;tl1 - Immunization history:: Adult Immunizations not up to date. - Social history:: Smoking status: Patient uses tobacco products, smokes one-half pack cigarettes per day. - Ebola Screening: : Patient negative for fever greater than or equal to 101.5 degrees Fahrenheit, and additional compatible Ebola Virus Disease symptoms Patient denies exposure to infectious person Patient denies travel to an Ebola-affected area in the 21 days before illness onset. Screenin:26 Abuse screen: Denies threats or abuse. Denies injuries from another. Nutritional tl1 screening: No deficits noted. Tuberculosis screening: No symptoms or risk factors identified. Fall Risk IV access (20 points). Assessment: 03:27 General: Appears in no apparent distress. Behavior is calm, cooperative, appropriate tl1 for age. Pain: Complains of pain in left lateral anterior chest Quality of pain is described as aching. Neuro: Level of Consciousness is awake, alert, obeys commands, Oriented to person, place, time, situation. Cardiovascular: Reports shortness of breath, Denies chest pain, Rhythm is regular. Respiratory: Reports shortness of breath cough that is Airway is patent Respiratory effort is even, unlabored, Breath sounds are clear bilaterally. GI: Abdomen is non-distended, Bowel sounds present X 4 quads. Abd is soft and non tender X 4 quads. : No signs and/or symptoms were reported regarding the genitourinary system. EENT: No signs and/or symptoms were reported regarding the EENT system. Derm: No signs and/or symptoms reported regarding the dermatologic system. 05:29 Reassessment: Patient and/or family updated on plan of care and expected duration. Pain tl1 level reassessed. Patient is alert, oriented x 3, equal unlabored respirations, skin warm/dry/pink. Patient states feeling better. Patient states symptoms have improved. Vital Signs: 03:25 BP 177 / 110; Pulse 89; Resp 20; Temp 98.1; Pulse Ox 93% on R/A; Weight 81.65 kg; tl1 Height 5 ft. 11 in. (180.34 cm); Pain 4/10; 03:56 BP 177 / 126; Pulse 87; Resp 20; Pulse Ox 100% on Nebulizer Mask; tl1 04:23 BP 177 / 117; Pulse 84; Resp 20; Pulse Ox 99% on 2 lpm NC; aa1 04:31 BP 164 / 82; Pulse 87; Resp 19; Pulse Ox 96% on R/A; tl1 05:27 BP 163 / 80; Pulse 86; Resp 21; Pulse Ox 96% on R/A; tl1 05:38 BP 152 / 80; Pulse 88; Resp 20; Temp 98.2; Pulse Ox 96% on R/A; Pain 0/10; tl1 03:25 Body Mass Index 25.10 (81.65 kg, 180.34 cm) tl1 ED Course: 03:21 Patient arrived in ED. tl1 03:21 Blair Kerr MD is Attending Physician. tw4 03:21 Jasmine Torres, LASHAY is Primary Nurse. tl1 03:24 Triage completed. tl1 03:25 Arm band placed on right wrist. tl1 03:25 Patient has correct armband on for positive identification. Placed in gown. Bed in low aa1 position. Call light in reach. Side rails up X2. alarm security or surveillance monitor on. Pulse ox on. NIBP on. Warm blanket given. 03:26 Oxygen administration via nasal cannula \T\ 2L/min. tl1 03:30 Initial lab(s) drawn, by me, sent to lab. Inserted saline lock: 20 gauge in left aa1 forearm, using aseptic technique. Blood collected. 03:48 EKG done, by ED staff, reviewed by Blair Kerr MD. aa1 04:41 Chest Single View XRAY In Process Unspecified. EDMS 04:45 Whit Fuentes MD is Hospitalizing Provider. tw4 05:28 No provider procedures requiring assistance completed. Patient admitted, IV remains in tl1 place. Administered Medications: 03:47 Drug: DuoNeb (3:1) (2.5 mg - 0.5 mg) 3 ml Route: Nebulizer; aa1 04:22 Follow up: Response: No adverse reaction; Marked relief of symptoms aa1 04:30 Follow up: Response: No adverse reaction; Marked relief of symptoms tl1 04:27 Drug: hydrALAZINE 20 mg Route: IV; Rate: bolus; Site: left antecubital; tl1 04:32 Follow up: IV Status: Completed infusion tl1 04:30 Drug: Lovenox 80 mg Route: Sub-Q; Site: abdomen; tl1 05:19 Follow up: Response: No adverse reaction; No change in condition tl1 05:18 Drug: Nitro-Bid Ointment 2 % 1 inches Route: Transdermal; Site: anterior chest wall; tl1 05:19 Drug: Lasix 40 mg Route: IVP; Infused Over: 4 mins; Site: left antecubital; tl1 05:39 Follow up: Response: No adverse reaction; Marked relief of symptoms; Blood pressure is tl1 lowered Outcome: 04:49 Decision to Hospitalize by Provider. tw4 06:11 Admitted to Tele accompanied by nurse, via wheelchair, with chart, Report called to tl1 Eduar METZ 06:11 Condition: improved 06:11 Instructed on the need for admit. 06:12 Patient left the ED. tl1 Signatures: Dispatcher [employer] Marian Carroll RN RN aa1 Jasmine Torres RN RN tl1 Blair Kerr MD MD tw4
[2018-03-25] MEDS ORDERED: NITROGLYCERIN 1 GM PKT TD ONE (05:22)
[2018-03-25] MEDS ORDERED: FUROSEMIDE 40 MG/4 ML VIAL ONE (05:22)
--- NOTE | 2018-03-25 05:27 | P.HP ---
Certification for Inpatient Patient admitted to: Inpatient With expected LOS: >2 Midnights Practitioner: I am a practitioner with admitting privileges, knowledge of patient current condition, hospital course, and medical plan of care. Services: Services provided to patient in accordance with Admission requirements found in Title 42 Section 412.3 of the Code of Federal Regulations Patient History Date of Service: 03/25/18 Reason for admission: CHF exacerbation History of Present Illness: Mr Terrell is a 67 years old male with history of CAD s/p stent placement, chronic systolic CHF with EF 30-35%, HTN, non-compliant with his medical treatment, homeless, who came to ED complaining of SOB. His symptoms starting about 2 AM, he was coming from [facility]. He denied chest pain, cough, nausea, vomiting, or abdominal pain. No history of fever or chills either. At arrival, BP was 177/110, O2 Sat 93% on RA. Lab work shows normal WBC count, elevated D-dimer, elevated tropoinin I, elevated ProBNP, abnormal liver and renal function. CXR bilateral infiltrate consistent with CHF. EKG SR at 80 bpm, without new ST-T abnormalities. At my encounter, he was still dyspneic and hypertensive. Allergies diphenhydramine HCl [From Benadryl] Adverse Reaction (Verified 12/04/17 06:25) Hives Home medications list reviewed: Yes Home Medications: Aspirin [Aspirin EC 81 MG] 81 mg PO DAILY #90 tablet. 01/26/18 Acetaminophen [Tylenol Extra Strength] 500 mg PO Q4HP PRN 03/08/18 Atorvastatin Calcium [Lipitor*] 20 mg PO BEDTIME #30 tab 03/09/18 Lisinopril [Prinivil*] 10 mg PO DAILY #30 tab 03/09/18 Metoprolol Tartrate [Lopressor*] 50 mg PO BID #60 tab 03/09/18 - Past Medical/Surgical History Diabetic: Yes -: History of prostate cancer -: Hypertension -: History of brain aneurysm requiring surgery -: CHF, systolic dysfunction -: COPD -: Tobacco abuse -: Noncompliance -: Coronary disease, stents x3 to LAD/RCA(Feb 2016) -: Diabetes mellitus type 2 -: GERD -: anemia -: hyperlipidemia -: Prostate surgery -: Brain aneurysm surgery -: Toe surgery R. great toe/childhood -: Heart catheterization-3stents LAD/RCA Psychosocial/ Personal History: He is single, lives alone. He has no children. 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 - Family History Father -: Cancer Notes: brain CA Mother -: Cancer Notes: PANCREATIC CANCER Brother -: Cancer Notes: lung CA - Social History Smoking Status: Current every day smoker Counseled patient to stop smoking for: less than 10 minutes Alcohol use: No CD- Drugs: No Caffeine use: Yes Place of Residence: [facility] Review of Systems 10-point ROS is otherwise unremarkable Physical Examination - Physical Exam General: Alert, In no apparent distress HEENT: Atraumatic, PERRLA, Mucous membr. moist/pink, EOMI, Sclerae nonicteric Neck: Supple, 2+ carotid pulse no bruit, No LAD, Without JVD or thyroid abnormality Respiratory: Normal air movement, Crackles/rales (bibasilar rales) Cardiovascular: Regular rate/rhythm, Normal S1 S2 Gastrointestinal: Normal bowel sounds, No tenderness Musculoskeletal: No tenderness, Swelling (bilateral LE edema 1+) Integumentary: No rashes Neurological: Normal speech, Normal strength at 5/5 x4 extr, Normal tone, Normal affect Lymphatics: No axilla or inguinal lymphadenopathy - Studies Laboratory Data (last 24 hrs) 03/25/18 03:39: WBC 10.6, Hgb 10.2 L, Hct 33.2 L, Plt Count 302 03/25/18 03:39: Sodium 139, Potassium 3.4 L, BUN 26 H, Creatinine 1.43 H, Glucose 125 H, Total Bilirubin 0.6, AST 182 H, ALT 236 H, Alkaline Phosphatase 133 H, Lipase 100 Assessment and Plan - Problems (Diagnosis) (1) Acute on chronic systolic (congestive) heart failure Onset Date: 09/01/17 Current Visit: No Status: Acute (2) Coronary artery disease Onset Date: 01/26/18 Current Visit: No Status: Acute Qualifiers: Coronary Disease-Associated Artery/Lesion type: [place] artery [place] vs. transplanted heart: [place] heart Associated angina: without angina Qualified Code(s): I25.10 - Atherosclerotic heart disease of [place] coronary artery without angina pectoris (3) Elevated troponin Onset Date: 03/31/17 Current Visit: No Status: Acute (4) Flash pulmonary edema Onset Date: 07/19/16 Current Visit: No Status: Acute (5) Renal insufficiency Onset Date: 03/18/16 Current Visit: No Status: Acute (6) Brain aneurysm Onset Date: 08/05/17 Current Visit: No Status: Chronic (7) COPD (chronic obstructive pulmonary disease) Onset Date: 03/21/15 Current Visit: No Status: Chronic Qualifiers: COPD type: unspecified COPD Qualified Code(s): J44.9 - Chronic obstructive pulmonary disease, unspecified (8) Hypertension Onset Date: 02/05/16 Current Visit: No Status: Chronic Qualifiers: Hypertension type: essential hypertension (9) Noncompliance Onset Date: 03/18/16 Current Visit: No Status: Chronic (10) Tobacco abuse Onset Date: 02/05/16 Current Visit: No Status: Chronic - Plan The patient will be admitted to the hospital due to acute on chronic systolic CHF exacerbation. Due to his clinical presentation, this is most likely flash pulmonary edema. Abnormal liver function possible due to congestive liver. Will order IV lasix, Nitro paste and PRN hydralazine. I doubt the patient has PE despite elevated D-Dimer, due to clinical presentation. He may need a VQ scan due to abnormal renal function if PE is suspected down the road. - Advance Directives Does patient have a Living Will: No Does patient have a Durable POA for Healthcare: No - Code Status/Comfort Care Code Status Assessed: Yes Code Status: Full Code
[2018-03-25] MEDS ORDERED: ONDANSETRON 4 MG/2 ML VIAL IV PRN (07:18)
--- NOTE | 2018-03-25 08:34 | RAD REPORT ---
EXAM DESCRIPTION: Neo Single View03/25/2018 4:43 am CLINICAL HISTORY: Chest pain COMPARISON: March 20 FINDINGS: Bilateral pulmonary opacities have partially resolved. Heart is moderately enlarged IMPRESSION: Partial resolution in bilateral pulmonary opacities probably representing pulmonary bienvenido a
[2018-03-25] MEDS ORDERED: POTASSIUM CL SA 10 MEQ TAB PO ONE ×2 (09:00→16:59)
[2018-03-25] MEDS: NITROGLYCERIN 1 GM PKT TD SCH ×3 (09:47→17:14)
[2018-03-25] MEDS: FUROSEMIDE 40 MG/4 ML VIAL IV SCH ×2 (09:48→17:13)
[2018-03-25] MEDS: ENOXAPARIN 30 MG/0.3 ML SQ SCH (09:48)
[2018-03-25] MEDS ORDERED: ALBUTEROL IH SCH (14:45)
--- NOTE | 2018-03-25 16:31 | PN ---
Date of Progress Note: 03/25/2018 Subjective: Patient seen and examined. Chart reviewed and case discussed with RN. The patient remains homeless, lives in the [facility]. No access to medicine. States that he is having some shortness of breath, was at [facility] prior to admission. Medications: List reviewed. Code status: Full Physical Examination: Vital Signs: Temperature 98.3, heart rate 84, blood pressure 132/75, respirations 18, O2 92% on room air. General: Awake, alert, oriented x3. Elderly male. CV: S1, S2. Regular rate and rhythm. No murmurs. Peripheral pulses present. Respiratory: Diminished breath sounds. Some crackles heard. Gastrointestinal: Abdomen is soft, nontender, nondistended. Positive bowel sounds. Extremities: No clubbing, cyanosis. Patient has some peripheral edema. Neurologic: Nonfocal. Laboratory Data: Sodium 139, potassium 2.4, chloride 109, CO2 22, BUN 26, creatinine 1.43, glucose 125, calcium 7.7, AST 182, ALT 236. Troponin 0.08. BNP 16,163. D-dimer 2277. WBC 10.6, H and H 10.2/33.2, platelets 302. Chest x-ray personally reviewed, shows partial resolution in bilateral primary opacities, probably representing pulmonary edema compared to March 20. Assessment: A 67-year-old male with, 1. Lyefw-gv-xenejmx systolic congestive heart failure. 2. Coronary artery disease, [place]ro[place] artery and iroquois heart without angina. 3. Elevated troponin level, likely due to demand mismatch. 4. Flash pulmonary edema. 5. Renal insufficiency. 6. History of brain aneurysm status post surgery. 7. Chronic obstructive pulmonary disease, chronic bronchitis. 8. Essential hypertension. 9. Noncompliance. 10. Nicotine dependence with cigarette smoking. 11. Elevated liver enzymes, unclear etiology may be due to passive congestion from congestive heart failure. Plan: 1. Continue congestive heart failure guidelines and continue with Lasix for diuresis. Monitor I's and O's strictly, daily weights. Repeat chest x-ray if not clinically improving. The patient is not tachycardic, low risk for pulmonary embolism despite elevated D-dimer. We will continue to monitor closely. Likely discharge in the next 24-48 hours depending on clinical response. /MARY ANN Voice ID: [id number] Report ID: [id number] [email or web address]
[2018-03-25] MEDS: METOPROLOL TAR 25 MG TAB PO SCH (17:14)
[2018-03-25] MEDS: ACETAMINOPHEN 500 MG TAB PO PRN (18:09)
--- NOTE | 2018-03-25 19:48 | EKG ---
Test Date: 2018-03-25 Test Time: 03:44:31 Windows Admin: MEASUREMENT RESULTS: Intervals: Rate: 82 WY: 144 QRSD: 122 QT: 430 QTc: 502 [place]: P: 71 WY: 144 QRS: 76 T: 31 INTERPRETIVE STATEMENTS: Normal sinus rhythm Possible Left atrial enlargement Nonspecific intraventricular conduction delay Borderline ECG Compared to ECG 03/09/2018 08:18:49 Intraventricular conduction delay now present T-wave abnormality no longer present Prolonged QT interval no longer present Electronically Signed On 03-25-18 19:45:48 LOOPING MACHINE OPERATOR by Cyrus Porter
[2018-03-25] MEDS: ATORVASTATIN 40 MG TAB PO SCH (20:32)
[2018-03-25] MEDS: HYDRALAZINE HCL 25 MG TABLET PO SCH (20:32)
[2018-03-25] MEDS ORDERED: HOME MED 1 EA UNK (Fluticasone/Salmeterol [Fluticasone-Salmeterol 113-14] 1 PUFF) IH SCH (21:00)
[2018-03-26] MEDS ORDERED: POTASSIUM CL SA 10 MEQ TAB PO ONE ×2 (00:30→06:38)
[2018-03-26] MEDS: ACETAMINOPHEN 500 MG TAB PO PRN ×2 (00:41→22:47)
[2018-03-26] MEDS: NITROGLYCERIN 1 GM PKT TD SCH ×4 (00:42→17:22)
[2018-03-26] MEDS ORDERED: ACETAMINOPHEN 500 MG TAB PO ONE (04:00)
[2018-03-26 04:53] LABS: Urine Appearance CLEAR; Urine Bilirubin NEGATIVE (NEG); Urine Blood NEGATIVE (NEG); Urine Color YELLOW; Urine Glucose NEGATIVE (NEG); Urine Protein 1+ (NEG)
[2018-03-26 05:12] LABS: Urine Microscopic Reflex ORDER UMIC
[2018-03-26 05:40] LABS: Urine Bacteria <20 /HPF (NONE SEEN); Urine Culture Reflex Order NOT NEEDED; Urine RBC NONE SEEN /HPF (NONE SEEN)
[2018-03-26] MEDS: METOPROLOL TAR 25 MG TAB PO SCH ×2 (06:08→17:23)
[2018-03-26 06:16] LABS: Absolute Monocytes 1.4 K/uL (0.1-1.3); Absolute Neutrophil 5.2 K/uL (1.8-8.0); Basophils % 0.9 % (0-1.3); Eosinophils % 4.7 % (0-4.4); Hematocrit 35.6 % (39.6-49.0); Lymphocytes % 21.9 % (15.3-44.8); MPV 9.1 fL (7.6-11.3); Monocytes % 15.7 % (3.3-12.3); RBC Red Blood Cell Count 5.44 M/uL (4.33-5.43)
[2018-03-26 06:29] LABS: Magnesium 2.3 mg/dL (1.8-2.4); Potassium 3.9 mmol/L (3.5-5.1)
[2018-03-26] MEDS: HYDRALAZINE HCL 25 MG TABLET PO SCH ×2 (08:26→21:56)
[2018-03-26] MEDS: CLOPIDOGREL 75 MG TABLET PO SCH (08:26)
[2018-03-26] MEDS: FUROSEMIDE 40 MG/4 ML VIAL IV SCH ×2 (08:27→17:23)
[2018-03-26] MEDS: ENOXAPARIN 30 MG/0.3 ML SQ SCH (08:27)
[2018-03-26] MEDS: ASPIRIN EC 81 MG TAB PO SCH (08:28)
[2018-03-26] MEDS: FERROUS GLUCONATE 300 MG TAB PO SCH (08:28)
[2018-03-26] MEDS ORDERED: LISINOPRIL 10 MG TAB PO SCH (09:00)
[2018-03-26] MEDS ORDERED: HOME MED 1 EA UNK (Lisinopril [Lisinopril] 30 MG) PO SCH (09:00)
[2018-03-26] MEDS ORDERED: LISINOPRIL 20 MG TAB PO SCH ×2 (09:00)
[2018-03-26] MEDS ORDERED: HOME MED 1 EA UNK (Ferrous Gluconate [Ferrous Gluconate] 1 TAB) PO SCH (09:00)
[2018-03-26] MEDS ORDERED: LABETALOL 20 MG/4ML SYRINGE IV PRN (14:33)
--- NOTE | 2018-03-26 19:17 | PN ---
Date of Progress Note: 03/26/2018 Subjective: Patient seen and examined. Chart reviewed and case discussed with RN. The patient over all is doing better. The blood pressure, however, still out of control. Medications: List reviewed. Physical Examination: Vital Signs: Temperature 98.7, heart rate 89, blood pressure 165/103, respirations 18, O2 95% on christina m air. General: Awake, alert, oriented x3. Some mild distress. Elderly male, appears older than stated ag e. CV: S1, S2. Regular rate and rhythm. Pulses present. Respiratory: Diminished breath sounds. Crackles heard. Gastrointestinal: Abdomen is soft, nontender, nondistended. Positive bowel sounds. Extremities: No clubbing, cyanosis. No pedal edema. Neurologic: Nonfocal. Laboratory Data: Sodium 143, potassium 3.9, chloride 108, CO2 28, BUN 24, creatinine 1.24, glucose 1 07, calcium 8.2, magnesium 2.3. WBC 9.1, H and H 10.8/35.6, platelets 310, neutrophils 56%. Assessment: A 67-year-old male with: 1.Zhfle-rm-asnbiyf systolic congestive heart failure. Last echocardiogram was in July of 2017. We w ill repeat echocardiogram, continue with diuretics, and monitor I's and O's. Continue fluid restrict ed diet. 2.Coronary artery disease, [place] artery and [place] heart without angina. Continue aspirin and Plav ix. 3.Elevated troponin level, likely due to demand mismatch and uncontrolled blood pressure. 4.Flash pulmonary edema, resolving. 5.Renal insufficiency. 6.History of brain aneurysm status post surgery. 7.Chronic obstructive pulmonary disease, chronic bronchitis. 8.Essential hypertension, uncontrolled. We will adjust medications. 9.Noncompliance. 10.Nicotine dependence with cigarette smoking, counseled. 11.Elevated liver enzymes, may be due to passive liver congestion. 12.Hypokalemia, replaced. Plan: Obtain echocardiogram, adjust medications to improve blood pressure control. [facility] [employer] [facility] nsulted for placement. The patient is homeless. May need to go back to [place]. Likely disc harge in the next 24 hours if continues to improve. SA/MODL Voice ID: [id number] Report ID: [id number]
[2018-03-26] MEDS: ATORVASTATIN 40 MG TAB PO SCH (21:56)
[2018-03-27] MEDS: NITROGLYCERIN 1 GM PKT TD SCH ×3 (00:38→12:14)
[2018-03-27] MEDS: METOPROLOL TAR 25 MG TAB PO SCH (05:03)
[2018-03-27 05:42] VITALS: BMI 23.1
[2018-03-27 06:36] LABS: Potassium 3.8 mmol/L (3.5-5.1)
[2018-03-27 08:45] VITALS: O2SAT 93
[2018-03-27] MEDS ORDERED: LISINOPRIL 20 MG TAB PO SCH (09:00)
[2018-03-27] MEDS ORDERED: POTASSIUM CL SA 10 MEQ TAB PO ONE (09:00)
[2018-03-27] MEDS: ENOXAPARIN 30 MG/0.3 ML SQ SCH (09:00)
[2018-03-27] MEDS: FUROSEMIDE 40 MG/4 ML VIAL IV SCH (10:10)
[2018-03-27] MEDS: HYDRALAZINE HCL 25 MG TABLET PO SCH (10:11)
[2018-03-27] MEDS: FERROUS GLUCONATE 300 MG TAB PO SCH (10:12)
[2018-03-27] MEDS: ASPIRIN EC 81 MG TAB PO SCH (10:12)
[2018-03-27] MEDS: CLOPIDOGREL 75 MG TABLET PO SCH (10:12)
--- NOTE | 2018-03-27 12:26 | ECHO ---
HEIGHT: 5 ft 11 in WEIGHT: 165 lb 6.4 oz DATE OF STUDY: 03/27/[address]: Bibi De León MD 2-DIMENSIONAL: YES M.MODE: YES DOPPLER: YES COLOR FLOW: YES TDS: NO PORTABLE: NO DEFINITY: NO BUBBLE STUDY: NO DIAGNOSIS: CONGESTIVE HEART FAILURE CARDIAC HISTORY: CATHERIZATION: YES SURGERY: NO PROSTHETIC VALVE: NO PACEMAKER: NO MEASUREMENTS (cm) DIASTOLIC (NORMALS) SYSTOLIC (NORMALS) IVSd 1.7 (0.6-1.2) LA Diam 4.5 (1.9-4.0) LVEF 40% LVIDd 5.7 (3.5-5.7) LVIDs 4.7 (2.0-3.5) %FS 20% LVPWd 1.3 (0.6-1.2) Ao Diam 3.2 (2.0-3.7) 2 DIMENSIONAL ASSESSMENT: RIGHT ATRIUM: NORMAL LEFT ATRIUM: DILATED RIGHT VENTRICLE: NORMAL LEFT VENTRICLE: NORMAL SIZE TRICUSPID VALVE: NORMAL MITRAL VALVE: NORMAL PULMONIC VALVE: NORMAL AORTIC VALVE: SCLEROSIS PERICARDIAL EFFUSION: NONE AORTIC ROOT: NORMAL LEFT VENTRICULAR WALL MOTION: MILD GLOBAL HYPOKINESIS. DOPPLER/COLOR FLOW: MILD TRICUSPID REGURGITATION. COMMENTS: MILD TRICUSPID REGURGITATION. MILD GLOBAL HYPOKINESIS. EJECTION FRACTION 40-45%. AORTIC SCLEROSIS. LEFT ATRIAL ENLARGEMENT. TECHNOLOGIST: MITCHELL RENDON
[2018-03-27 12:39] VITALS: BP 156/79; TEMP 99.6
--- NOTE | 2018-03-28 03:09 | DS ---
Date of Discharge: 03/27/2018 Admitting Diagnoses: 1.Tnfrc-wq-ntdqexk systolic heart failure. 2.Coronary artery disease, [place] artery and [place] heart, without angina. 3.Elevated troponin level. 4.Flash pulmonary edema. 5.Renal insufficiency. 6.Brain aneurysm, status post surgery. 7.Chronic obstructive pulmonary disease, chronic bronchitis. 8.Essential hypertension. 9.Noncompliance, intentional. 10.Nicotine dependence with cigarette smoking, continuous. Discharge Diagnoses: 1.Orjny-zl-reboglr systolic congestive heart failure. Ejection fraction on recent echocardiogram sh ows 40%, improving. 2.Coronary artery disease, [place] artery and omaha heart, without angina. 3.Elevated troponin level due to demand mismatch for uncontrolled blood pressure. 4.Flash pulmonary edema, resolving. 5.Renal insufficiency. 6.History of brain aneurysm, status post surgery. 7.Chronic obstructive pulmonary disease, chronic bronchitis. 8.Essential hypertension, uncontrolled. 9.Noncompliance, intentional. 10.Nicotine dependence with cigarette smoking, continuous. 11.Elevated liver enzymes due to passive liver congestion. 12.Hypokalemia, corrected. Hospital Course: The patient is a 67-year-old male with past medical history of COPD, heart disease, CHF, systolic dysfunction, who has had multiple readmissions to the hospital for shortness of breath related to heart failure. The patient is homeless and prefers to live in the [facility]. States he is n oncompliant with his medications and does not wish to take his medications. He has even been given m edications paid for by another hospitalist and did not take his medications. He does go to the [employer] off and on. However, he states that he does not get along with people and prefers to be al one. The patient is noncompliant with his diet as well and came in with shortness of breath. He was found to have flash pulmonary edema. His blood pressure was not well controlled. His medications w ere adjusted. IV medications were implemented. The patient was started on IV Lasix. The patient di d have a good response to diuretics. His fluid balance was negative. The patient again was noncompl iant with his diet in the hospital, getting food from the gift shop, not following fluid restriction. Echocardiogram was repeated. The patient's last echocardiogram was in July of 2017. EF showed 40% with some mild global hypokinesis. The patient's symptoms improved. His edema resolved. He was abl e to be weaned off oxygen. Therefore, the patient was discharged in a stable condition. Social Work was also involved, and resources were given to him in terms of shelters. However, the patient clear ly stated that he preferred to stay out in the [place] by himself and was not interested in any detention s. He states that he does not have any family or friends whom he can return to. The patient was the n discharged in a stable condition. Activity: As tolerated. Medications: As per medication reconciliation list. Diet: Low-sodium, fluid-restricted diet. Followup: Follow up with PCP. Establish care with PCP in 1 to 2 weeks. Return to ER for worsening condition. Physical Examination: General: Awake, alert, oriented x3. No acute distress. Elderly male. Appears older than stated ag e. CV: S1, S2. Peripheral pulses present. Respiratory: Moving air well bilaterally. Gastrointestinal: Abdomen is soft, nontender, nondistended. Positive bowel sounds. Extremities: No clubbing, cyanosis, or edema. Neurologic: Nonfocal. Total time spent discharging the patient was 33 minutes. /MARY ANN Voice ID: [id number] Report ID: [id number]
== END 2018-03-27 13:57 | disposition home or self-care (01) | DRG 293 ==
LOC: ER 03:19 → ERHOLD 05:28 → 4TH 05:50
PROVIDERS: ADMIT Internal Medicine; ATTEND Family Medicine
DX: I50.23 Acute on chronic systolic (congestive) heart failure (principal); E87.6 Hypokalemia; I25.10 Atherosclerotic heart disease of native coronary artery without angina pectoris; I10 Essential (primary) hypertension; J44.9 Chronic obstructive pulmonary disease, unspecified; E11.9 Type 2 diabetes mellitus without complications; K21.9 Gastro-esophageal reflux disease without esophagitis; E78.5 Hyperlipidemia, unspecified; F17.210 Nicotine dependence, cigarettes, uncomplicated; Z59.0 Homelessness; Z91.19 Patient's noncompliance with other medical treatment and regimen
CPT/HCPCS: 36415; 71045; 80048; 80076; 81003; 81015; 82550; 82553; 83690; 83735; 83880; 84132; 84484; 85025; 85379; 93005; 93306; 94640; 94760; 96372; 96374; 96375; 97162; 99285; J0360; J1650; J1940

== ENCOUNTER 2018-03-29 17:16 | Inpatient (IN) | payer OTHER ==
--- OUTSIDE RECORDS SUMMARY | 2018-03-29 17:19 | XMS REPORT ---
:1950 [facility] [address] [place] [address] Care Team Providers Name Role Phone Unavailable [...]
[2018-03-29] MEDS ORDERED: ALBUTEROL 2.5 MG/3 ML NEB SOL ONE (17:48)
[2018-03-29] MEDS ORDERED: IPRATROPIUM BROM 0.5MG/2.5ML ONE (17:49)
[2018-03-29 17:56] LABS: Protime INR 1.24
[2018-03-29 18:02] LABS: Absolute Lymphocytes (CBC) 2.2 K/uL (0.7-4.9); Absolute Monocytes 2.2 K/uL (0.1-1.3); Absolute Neutrophil 8.8 K/uL (1.8-8.0); Basophils % 0.6 % (0-1.3); Eosinophils % 2.9 % (0-4.4); Hematocrit 36.1 % (39.6-49.0); MPV 9.2 fL (7.6-11.3); Monocytes % 16.2 % (3.3-12.3)
[2018-03-29 18:12] LABS: Albumin 3.3 g/dL (3.4-5.0); Bilirubin Direct 0.2 mg/dL (0-0.2); Bilirubin Total 0.5 mg/dL (0.2-1.0); Magnesium 2.2 mg/dL (1.8-2.4); Potassium 4.6 mmol/L (3.5-5.1); Protein, Total 6.7 g/dL (6.4-8.2); Troponin (Emerg Dept Use Only) 0.08 ng/mL (0.0-0.045)
--- NOTE | 2018-03-29 19:00 | RAD REPORT ---
EXAM DESCRIPTION: Neo Single View03/29/2018 5:58 pm CLINICAL HISTORY: Shortness of breath COMPARISON: March 25 FINDINGS: Mild bilateral interstitial lung opacities are present. The heart is mildly to moderately enlarged IMPRESSION: Mild CHF
--- NOTE | 2018-03-29 19:32 | EDPHYS ---
Physician Documentation [facility] Name: Mark Terrell Age: 67 yrs Sex: Male : 1950 Arrival Date: 03/29/2018 Time: 17:21 Bed 24 Private MD: ED Physician Ryan Vasquez HPI: 03/29 17:28 This 67 yrs old Male presents to ER via EMS with complaints of Shortness Of jmm Breath. 17:28 The patient has shortness of breath at rest. Onset: The symptoms/episode began/occurred jmm gradually, today. Duration: The symptoms are continuous. The patient's shortness of breath is aggravated by nothing, is alleviated by nothing. Associated signs and symptoms: Pertinent negatives: fever. This is a 67 yea rold male with a history of a. fib, COPD, CHF that presents to the ED with complains of shortness of breath, wheezing beginning earlier today the patient believes may be a COPD flare. Patient was recently discharged from inpatient care due to CHF exacerbation. . Historical: - Allergies: 17:26 Benadryl; aj1 - PMHx: 17:26 Aneurysm; BRAIN; Atrial Fib; Cancer; PROSTATE; CHF; COPD; Prostate Cancer; Hypertension;aj1 - Immunization history:: Flu vaccine is not up to date. - Social history:: Smoking status: Patient uses tobacco products. - Ebola Screening: : Patient denies travel to an Ebola-affected area in the 21 days before illness onset. ROS: 17:28 Constitutional: Negative for fever, chills, and weight loss, Cardiovascular: Negative jmm for chest pain, palpitations, and edema. 17:28 Neuro: Negative for headache, weakness, numbness, tingling, and seizure. 17:28 Respiratory: Positive for cough, shortness of breath, wheezing. 17:28 All other systems are negative. Exam: 17:28 Head/Face: atraumatic. Eyes: EOMI, no conjunctival erythema appreciated Chest/axilla: jmm Normal chest wall appearance and motion. 17:28 Abdomen/GI: Non distended, soft Back: Normal ROM Skin: General appearance color normal MS/ Extremity: Moves all extremities, no obvious deformities appreciated, no edema noted to the lower extremities Neuro: Awake and alert, normal gait Psych: Behavior is normal, Mood is normal, Patient is cooperative and pleasant 17:28 Constitutional: The patient appears alert, awake, uncomfortable. 17:28 Cardiovascular: Rate: normal, Rhythm: regular. 17:28 Respiratory: mild respiratory distress is noted, Respirations: labored breathing, that is mild, Breath sounds: wheezing: that is moderate, is scattered. Vital Signs: 17:26 BP 184 / 96; Pulse 104; Resp 28; Temp 98.7; Pulse Ox 98% on R/A; aj1 18:30 BP 175 / 101; Pulse 103; Resp 30; Pulse Ox 96% on R/A; aj1 19:15 BP 158 / 104; Pulse 108; Resp 28; Pulse Ox 95% on R/A; aj1 20:30 BP 177 / 83; Pulse 104; Resp 32; Pulse Ox 97% on R/A; aj1 21:06 BP 181 / 97; Pulse 105; Resp 31; Temp 98.7(O); Pulse Ox 97% on R/A; aj1 MDM: 17:28 Patient medically screened. [facility] 19:27 Data reviewed: vital signs, nurses notes, lab test result(s), EKG, radiologic studies, [facility] plain films. Data interpreted: Pulse oximetry: on room air is 98 %. Interpretation: normal. Counseling: I had a detailed discussion with the patient and/or guardian regarding: the historical points, exam findings, and any diagnostic results supporting the discharge/admit diagnosis, lab results, radiology results, the need for further work-up and treatment in the hospital. ED course: I discussed the patient with Dr. Fuentes whom accepted admission. . 03/29 17:34 Order name: Basic Metabolic Panel; Complete Time: 18:24 [facility] 03/29 17:34 Order name: CBC with Diff; Complete Time: 20:17 [facility] 03/29 17:34 Order name: LFT's; Complete Time: 18:24 [facility] 03/29 17:34 Order name: Magnesium; Complete Time: 18:24 [facility] 03/29 17:34 Order name: NT PRO-BNP; Complete Time: 18:24 [facility] 03/29 17:34 Order name: PT-INR; Complete Time: 18:24 [facility] 03/29 17:34 Order name: Troponin (emerg Dept Use Only); Complete Time: 18:24 [facility] 03/29 17:34 Order name: XRAY Chest (1 view); Complete Time: 19:02 [facility] 03/29 17:34 Order name: EKG; Complete Time: 17:35 [facility] 03/29 18:05 Order name: CBC Smear Scan; Complete Time: 20:17 [facility] 03/29 19:52 Order name: CT Chest For PE Angio; Complete Time: 20:36 [facility] 03/29 20:01 Order name: Lactate [facility] 03/29 20:01 Order name: Procalcitonin; Complete Time: 21:52 [facility] 03/29 17:34 Order name: Cardiac monitoring; Complete Time: 17:34 [facility] 03/29 17:34 Order name: EKG - Nurse/Tech; Complete Time: 18:02 [facility] 03/29 17:34 Order name: IV Saline Lock; Complete Time: 18:03 [facility] 03/29 17:34 Order name: Labs collected and sent; Complete Time: 18:03 [facility] 03/29 17:34 Order name: O2 Per Protocol; Complete Time: 17:34 [facility] 03/29 17:34 Order name: O2 Sat Monitoring; Complete Time: 17:34 [facility] Administered Medications: 17:45 Drug: DuoNeb (3:1) (2.5 mg - 0.5 mg) 3 ml Route: Nebulizer; rv 21:17 Follow up: Response: No adverse reaction aj1 Disposition: 03/29/18 19:31 Hospitalization ordered by Whit Fuentes for Observation. Preliminary diagnosis is Acute on chronic combined systolic (congestive) and diastolic (congestive) heart failure. - Bed requested for Telemetry/MedSurg (observation). - Status is Observation. aj1 - Condition is Stable. - Problem is an acute exacerbation. - Symptoms are unchanged. UTI on Admission? No Addendum: 03/31/2018 20:00 Co-signature as Attending Physician, Ryan Vasquez MD. r n Signatures: Dispatcher [employer] EDMS Daisy Quiñones RN RN aj1 Sri Bean RN RN kl Mickail, Joel, PA PA Ryan Blake MD MD rn Vicente, Ronaldo, RN RN rv Corrections: (The following items were deleted from the chart) 03/29 20:48 19:31 Hospitalization Ordered by Whit Fuentes MD for Observation. Preliminary kl diagnosis is Acute on chronic combined systolic (congestive) and diastolic (congestive) heart failure. Bed requested for Telemetry/MedSurg (observation). Status is Observation. Condition is Stable. Problem is an acute exacerbation. Symptoms are unchanged. UTI on Admission? No. jmm 21:56 20:48 03/29/2018 19:31 Hospitalization Ordered by Whit Fuentes MD for Observation. aj1 Preliminary diagnosis is Acute on chronic combined systolic (congestive) and diastolic (congestive) heart failure. Bed requested for Telemetry/MedSurg (observation). Status is Observation. Condition is Stable. Problem is an acute exacerbation. Symptoms are unchanged. UTI on Admission? No. kl
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
[2018-03-29 20:04] LABS: Anisocytosis 1+; Blood Morphology Comment NOTED (NOT SEEN); Hypochromasia 2+; Ovalocytes 1+; Platelet Estimate ADEQ; Polychromasia 1+; Urine White Blood Cell Casts OK
--- NOTE | 2018-03-29 20:34 | RAD REPORT ---
EXAM DESCRIPTION: CT - Chest For Pe Angio - 03/29/2018 8:13 pm CLINICAL HISTORY: Chest pain COMPARISON: December 2017 TECHNIQUE: Dynamically enhanced axial 3 mm thick images of the chest were obtained during administra tion of <100> mL Isovue 370 IV contrast. Coronal and oblique reconstruction images were generated and reviewed. Exam utilizes a protocol for optimal evaluation of pulmonary arterial tree. Maximum intensity projections 3D imaging was utilized All CT scans are performed using dose optimization technique as appropriate and may include automated exposure control or mA/KV adjustment according to patient size. FINDINGS: A pulmonary embolus is not seen. A thoracic aortic aneurysm is not noted. A pleural effusion is not seen. A pericardial effusion is not seen. A lung consolidation is not present. Paraseptal and centrilobular emphysema is present. Subacute fractures involve left fourth through ninth posterior ribs. Fractures are mostly moderately displaced. A pneumothorax is not seen The heart is enlarged IMPRESSION: Negative for a pulmonary embolism.
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
[2018-03-29] MEDS: AZITHROMYCIN IV 500 MG in NA CHLORIDE 0.9% 250 ML IVPB SCH (23:00)
[2018-03-29] MEDS ORDERED: CEFTRIAXONE 1 GM/NS 50 ML 1 GM/50 ML BAG IV SCH (23:00)
[2018-03-29] MEDS ORDERED: CEFTRIAXONE 1000 MG/VIAL ONE (23:30)
[2018-03-29] MEDS ORDERED: NA CHLORIDE 0.9% 50 ML ONE (23:30)
[2018-03-29] MEDS: ACETAMINOPHEN 500 MG TAB PO PRN (23:34)
[2018-03-30] MEDS ORDERED: AZITHROMYCIN 500 MG/250 ML BAG ONE (00:05)
[2018-03-30] MEDS: FUROSEMIDE 40 MG/4 ML VIAL IV SCH ×3 (00:22→18:43)
[2018-03-30 01:08] LABS: Urine Appearance CLEAR; Urine Bilirubin NEGATIVE (NEG); Urine Blood NEGATIVE (NEG); Urine Color YELLOW; Urine Glucose TRACE (NEG); Urine Protein 1+ (NEG); Urine Specific Gravity >=1.030 (1.005-1.030); Urine Urobilinogen 0.2 mg/dL (0.2-1.0)
[2018-03-30 01:24] LABS: Urine Microscopic Reflex ORDER UMIC
[2018-03-30 02:08] LABS: Urine Bacteria <20 /HPF (NONE SEEN); Urine Culture Reflex Order NOT NEEDED; Urine RBC <5 /HPF (NONE SEEN)
--- NOTE | 2018-03-30 07:58 | EKG ---
Test Date: 2018-03-29 Test Time: 17:55:42 Swimmer: MEASUREMENT RESULTS: Intervals: Rate: 102 MD: 142 QRSD: 110 QT: 360 QTc: 469 [place]: P: 69 MD: 142 QRS: 87 T: 54 INTERPRETIVE STATEMENTS: Sinus tachycardia Possible Left atrial enlargement Left ventricular hypertrophy Abnormal ECG Compared to ECG 03/25/2018 03:44:31 Left ventricular hypertrophy now present Sinus rhythm no longer present Intraventricular conduction delay no longer present Electronically Signed On 03-30-18 07:53:19 BARREL RACER by Cyrus Porter
[2018-03-30] MEDS: ENOXAPARIN 40 MG/0.4 ML SQ SCH (09:50)
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
[2018-03-30] MEDS ORDERED: CEFTRIAXONE/SWI 1gm 1 GM/10 ML SYR IV SCH (21:00)
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
[2018-03-30] MEDS: ALBUTEROL 2.5 MG/3 ML NEB SOL NEB SCH (21:09)
[2018-03-30] MEDS: AZITHROMYCIN IV 500 MG in NA CHLORIDE 0.9% 250 ML IVPB SCH (22:28)
[2018-03-31] MEDS: FUROSEMIDE 40 MG/4 ML VIAL IV SCH ×3 (00:40→18:10)
[2018-03-31] MEDS: ACETAMINOPHEN 500 MG TAB PO PRN ×2 (00:57→22:59)
[2018-03-31] MEDS: ALBUTEROL 2.5 MG/3 ML NEB SOL NEB SCH ×4 (02:00→20:00)
[2018-03-31 06:40] LABS: Absolute Lymphocytes (CBC) 2.1 K/uL (0.7-4.9); Absolute Monocytes 1.6 K/uL (0.1-1.3); Basophils % 1.4 % (0-1.3); Eosinophils % 6.1 % (0-4.4); Hematocrit 35.6 % (39.6-49.0); Lymphocytes % 22.4 % (15.3-44.8); MPV 9.2 fL (7.6-11.3); Monocytes % 17.2 % (3.3-12.3); RBC Red Blood Cell Count 5.42 M/uL (4.33-5.43)
[2018-03-31 06:45] VITALS: BMI 21.9
[2018-03-31] MEDS: ENOXAPARIN 40 MG/0.4 ML SQ SCH (10:46)
[2018-03-31] MEDS: LIDOCAINE 5% PATCH TOP SCH (10:46)
--- NOTE | 2018-03-31 17:46 | P.PN ---
Subjective Date of Service: 03/31/18 Chief Complaint: acute on chronc systolic CHF Subjective: No C/O voiced, Improving Patient seen and examined at bedside. No family at bedside. Chart reviewed and case discussed with nursing staff. Reports improved breathing. Denies any chest pain. Ambulating without any concerns Review of Systems 10-point ROS is otherwise unremarkable Physical Examination - Vital Signs Temperature: 99.4 F Blood Pressure: 161/92 Pulse: 85 Respirations: 18 Pulse Ox (%): 97 - Physical Exam General: Alert, In no apparent distress, Oriented x3 HEENT: Atraumatic, PERRLA, EOMI Neck: Supple, JVD not distended Respiratory: Clear to auscultation bilaterally, Normal air movement Cardiovascular: Regular rate/rhythm, Normal S1 S2 Gastrointestinal: Normal bowel sounds, No tenderness Musculoskeletal: No tenderness Integumentary: No rashes Neurological: Normal speech, Normal tone, Normal affect Lymphatics: No axilla or inguinal lymphadenopathy Assessment And Plan - Plan This is a 59-year-old male with: Acute respiratory distress with hypoxia Improving Likely secondary to CHF as well as the fractures? Continue IV Lasix Subacute left 4th overnight for fractures, likely secondary to fall General surgery consulted. No surgical intervention planned at this time. Continue medical management. Patient denies any pain at this time. May use lidocaine patch if needed Acute on chronic systolic congestive heart Recent echo on previous hospitalization with ejection fraction 40% with global hypokinesis Continue IV diuresis. Patient does not take any medications when he is not in the hospital as he states that he cannot afford them. Elevated troponin Likely secondary to demand mismatch Coronary artery disease, without angina Chronic obstructive pulmonary disease Chronic bronchitis Continue breathing treatments Nicotine dependence a cigarette smoking Counseled on smoking cessation. Patient not interested at this time. DVT prophylaxis: Lovenox GI prophylaxis: None Diet: heart healthy/fluid restriction Disposition: Pending symptomatic improvement. Likely discharge in the next 24- 48 hr Time Spent Managing PTS Care (In Minutes): 35
[2018-04-01] MEDS: FUROSEMIDE 40 MG/4 ML VIAL IV SCH ×2 (00:03→08:52)
[2018-04-01] MEDS: ALBUTEROL 2.5 MG/3 ML NEB SOL NEB SCH ×2 (03:00→08:30)
[2018-04-01 06:08] LABS: Absolute Lymphocytes (CBC) 1.6 K/uL (0.7-4.9); Absolute Monocytes 1.5 K/uL (0.1-1.3); Absolute Neutrophil 4.8 K/uL (1.8-8.0); Basophils % 1.3 % (0-1.3); Eosinophils % 5.9 % (0-4.4); Hematocrit 37.9 % (39.6-49.0); Lymphocytes % 18.4 % (15.3-44.8); MPV 9.3 fL (7.6-11.3); Monocytes % 17.8 % (3.3-12.3); RBC Red Blood Cell Count 5.76 M/uL (4.33-5.43)
[2018-04-01] MEDS: ACETAMINOPHEN 500 MG TAB PO PRN (06:18)
[2018-04-01 07:54] LABS: Anisocytosis 1+; Blood Morphology Comment NOTED (NOT SEEN); Hypochromasia 1+; Platelet Estimate ADEQ; Platelets, Giant PRESENT; Target Cells 1+; Urine White Blood Cell Casts OK
[2018-04-01 07:55] LABS: Ovalocytes 2+
[2018-04-01] MEDS: ENOXAPARIN 40 MG/0.4 ML SQ SCH (08:52)
[2018-04-01] MEDS: LIDOCAINE 5% PATCH TOP SCH (08:52)
--- NOTE | 2018-04-01 11:14 | P.PN ---
Subjective Date of Service: 04/01/18 Chief Complaint: acute on chronc systolic CHF Subjective: Improving (no SOB, doing well, ambulatory down to hospital lobby) Physical Examination - Vital Signs Temperature: 98.1 F Blood Pressure: 146/70 Pulse: 82 Respirations: 20 Pulse Ox (%): 98 - Physical Exam General: Alert, In no apparent distress, Cooperative Respiratory: Clear to auscultation bilaterally, Normal air movement Assessment And Plan - Current Problems (Diagnosis) (1) Acute dyspnea Onset Date: 11/15/16 Current Visit: No Status: Acute Plan: Patient pain and breathing are improved, and he is appropriate for discharge at this time
[2018-04-01 12:41] VITALS: O2SAT 97
[2018-04-01 14:18] VITALS: BP 141/78; TEMP 98.3
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
== END 2018-04-01 12:53 | disposition home or self-care (01) | DRG 871 ==
LOC: ER 17:16 → ERHOLD 20:11 → 2ND 21:32 → OBSVTOIN 03-31 23:05
PROVIDERS: ADMIT Internal Medicine; ATTEND Family Medicine
DX: A41.9 Sepsis, unspecified organism (principal); J96.21 Acute and chronic respiratory failure with hypoxia; I50.23 Acute on chronic systolic (congestive) heart failure; S22.42XA Multiple fractures of ribs, left side, initial encounter for closed fracture; R65.20 Severe sepsis without septic shock; I11.0 Hypertensive heart disease with heart failure; I25.10 Atherosclerotic heart disease of native coronary artery without angina pectoris; J44.9 Chronic obstructive pulmonary disease, unspecified; E11.9 Type 2 diabetes mellitus without complications; Z91.14 Patient's other noncompliance with medication regimen; Z85.46 Personal history of malignant neoplasm of prostate; Z95.5 Presence of coronary angioplasty implant and graft; F17.210 Nicotine dependence, cigarettes, uncomplicated; K21.9 Gastro-esophageal reflux disease without esophagitis; E78.5 Hyperlipidemia, unspecified; D64.9 Anemia, unspecified; V19.88XA Pedal cyclist (driver) (passenger) injured in other specified transport accidents, initial encounter; Y93.55 Activity, bike riding; Y92.410 Unspecified street and highway as the place of occurrence of the external cause; R79.89 Other specified abnormal findings of blood chemistry; Z59.0 Homelessness
CPT/HCPCS: 36415; 71045; 71275; 80048; 80076; 81003; 81015; 83605; 83735; 83880; 84145; 84484; 85025; 85610; 87040; 93005; 94640; 94760; 99285; G0378; J0456; J0696; J1650; J1940; Q9967

== ENCOUNTER 2018-04-17 15:36 | Observation (INO) | payer OTHER ==
--- OUTSIDE RECORDS SUMMARY | 2018-04-17 15:37 | XMS REPORT ---
:1950 [facility] Address [address] [place] [address] Care Team Providers Name Role Phone Unavailable [...]
--- NOTE | 2018-04-17 16:19 | EKG ---
Test Date: 2018-04-17 Test Time: 15:59:53 Mechanical Inspector: JOHANA MEASUREMENT RESULTS: Intervals: Rate: 91 ME: 142 QRSD: 116 QT: 410 QTc: 504 [place]: P: 74 ME: 142 QRS: 81 T: 39 INTERPRETIVE STATEMENTS: Sinus rhythm with occasional premature ventricular complexes Possible Left atrial enlargement Prolonged QT Abnormal ECG Compared to ECG 03/29/2018 17:55:42 Ventricular premature complex(es) now present Prolonged QT interval now present Sinus tachycardia no longer present Left ventricular hypertrophy no longer present Electronically Signed On 04-17-18 16:18:01 HAT BRIM CURLER by Cyrus Porter
[2018-04-17 16:24] LABS: Protime INR 1.95
[2018-04-17] MEDS ORDERED: IPRATROPIUM BROM 0.5MG/2.5ML ONE (16:28)
[2018-04-17] MEDS ORDERED: predniSONE 20 MG TAB ONE (16:28)
[2018-04-17] MEDS ORDERED: ALBUTEROL 2.5 MG/3 ML NEB SOL ONE (16:28)
[2018-04-17 16:32] LABS: Hematocrit 31.7 % (39.6-49.0); MPV 8.8 fL (7.6-11.3)
--- NOTE | 2018-04-17 16:48 | RAD REPORT ---
EXAM DESCRIPTION: Neo Single View04/17/2018 4:16 pm CLINICAL HISTORY: Chest pain COMPARISON: March 2018 FINDINGS: Mild chronic appearing lung opacities. COPD The lungs appear clear of acute infiltrate. The heart is moderately enlarged IMPRESSION: No acute abnormalities displayed
[2018-04-17 16:49] LABS: Albumin 3.1 g/dL (3.4-5.0); Bilirubin Direct 0.3 mg/dL (0-0.2); Magnesium 1.9 mg/dL (1.8-2.4); Potassium 3.9 mmol/L (3.5-5.1); Protein, Total 5.8 g/dL (6.4-8.2); Troponin (Emerg Dept Use Only) 0.06 ng/mL (0.0-0.045)
[2018-04-17 17:46] LABS: Anisocytosis SLIGHT; Blood Morphology Comment NOTED (NOT SEEN); Hypochromasia 1+
[2018-04-17 17:47] LABS: Poikilocytosis 1+; Target Cells FEW
[2018-04-17 17:48] LABS: Platelet Estimate ADEQ
[2018-04-17] MEDS ORDERED: FUROSEMIDE 40 MG/4 ML VIAL ONE (18:10)
--- NOTE | 2018-04-17 18:12 | EDPHYS ---
Physician Documentation [facility] Name: Mark Terrell Age: 67 yrs Sex: Male : 1950 Arrival Date: 04/17/2018 Time: 15:41 Bed 7 Private MD: ED Physician Satish Catalan HPI: 04/17 16:05 This 67 yrs old Male presents to ER via EMS with complaints of Chest Pain > pm1 29 y/o. 16:05 The patient or guardian reports chest pain that is located primarily in the anterior pm1 aspect of left upper chest and mid-sternal area. Onset: 1 hour prior to arrival. The pain does not radiate. Associated signs and symptoms: Pertinent positives: cough, shortness of breath, Pertinent negatives: abdominal pain, diaphoresis, nausea, vomiting, fever, chills. The chest pain is described as sharp, Was told that he has some broken ribs from a fall that give him some occasional chest pain. Duration: The patient or guardian reports a single episode, that is still ongoing. Modifying factors: The symptoms are alleviated by nothing. the symptoms are aggravated by nothing. The patient has experienced similar episodes in the past, multiple times. The patient has not recently seen a physician. Patient noncompliant with his medications. Is currently only taking tylenol for chest/rib pain. Historical: - Allergies: 15:48 Benadryl; aj - Home Meds: 15:48 None [Active]; aj - PMHx: 15:48 Aneurysm; BRAIN; Cancer; PROSTATE; CHF; COPD; Hypertension; Prostate Cancer; aj - Immunization history:: Adult Immunizations up to date. - Social history:: Smoking status: Patient uses tobacco products, smokes one pack cigarettes per day. - Ebola Screening: : Patient negative for fever greater than or equal to 101.5 degrees Fahrenheit, and additional compatible Ebola Virus Disease symptoms Patient denies exposure to infectious person Patient denies travel to an Ebola-affected area in the 21 days before illness onset No symptoms or risks identified at this time. ROS: 16:05 Constitutional: Negative for fever, chills, and weight loss, Eyes: Negative for injury, pm1 pain, redness, and discharge, ENT: Negative for injury, pain, and discharge, Neck: Negative for injury, pain, and swelling. 16:05 Abdomen/GI: Negative for abdominal pain, nausea, vomiting, diarrhea, and constipation, Back: Negative for injury and pain, : Negative for injury, bleeding, discharge, and swelling, MS/Extremity: Negative for injury and deformity, Skin: Negative for injury, rash, and discoloration, Neuro: Negative for headache, weakness, numbness, tingling, and seizure. 16:05 Cardiovascular: Positive for chest pain, Negative for edema, palpitations. 16:05 Respiratory: Positive for cough, shortness of breath, Negative for sputum production, wheezing. Exam: 16:05 Constitutional: This is a well developed, well nourished patient who is awake, alert, pm1 and in no acute distress. Head/Face: Normocephalic, atraumatic. Eyes: Pupils equal round and reactive to light, extra-ocular motions intact. Lids and lashes normal. Conjunctiva and sclera are non-icteric and not injected. Cornea within normal limits. Periorbital areas with no swelling, redness, or edema. ENT: Nares patent. No nasal discharge, no septal abnormalities noted. Tympanic membranes are normal and external auditory canals are clear. Oropharynx with no redness, swelling, or masses, exudates, or evidence of obstruction, uvula midline. Mucous membranes moist. Neck: Trachea midline, no thyromegaly or masses palpated, and no cervical lymphadenopathy. Supple, full range of motion without nuchal rigidity, or vertebral point tenderness. No Meningismus. Chest/axilla: Normal chest wall appearance and motion. Nontender with no deformity. No lesions are appreciated. Cardiovascular: Regular rate and rhythm with a normal S1 and S2. No gallops, murmurs, or rubs. Normal PMI, no JVD. No pulse deficits. 16:05 Abdomen/GI: Soft, non-tender, with normal bowel sounds. No distension or tympany. No guarding or rebound. No evidence of tenderness throughout. Back: No spinal tenderness. No costovertebral tenderness. Full range of motion. Skin: Warm, dry with normal turgor. Normal color with no rashes, no lesions, and no evidence of cellulitis. MS/ Extremity: Pulses equal, no cyanosis. Neurovascular intact. Full, normal range of motion. 16:05 Respiratory: the patient does not display signs of respiratory distress, Respirations: normal, Breath sounds: decreased breath sounds, are located in both bases. 16:05 Neuro: Orientation: is normal, Motor: is normal, moves all fours, Sensation: is normal, no obvious gross deficits. Vital Signs: 15:48 BP 161 / 102; Pulse 91; Resp 25; Temp 98.4; Pulse Ox 96% on 2 lpm NC; Weight 72.57 kg; aj Height 5 ft. 11 in. (180.34 cm); 17:38 BP 177 / 95; Pulse 97; Resp 24; Pulse Ox 97% on R/A; aj 19:43 BP 159 / 80; Pulse 87; Resp 22; Pulse Ox 96% ; Pain 0/10; tl1 20:19 BP 181 / 96; Pulse 90; Resp 22; Pulse Ox 96% on R/A; Pain 0/10; tl1 15:48 Body Mass Index 22.31 (72.57 kg, 180.34 cm) aj MDM: 15:55 Patient medically screened. pm1 18:00 Counseling: I had a detailed discussion with the patient and/or guardian regarding: the pm1 historical points, exam findings, and any diagnostic results supporting the discharge/admit diagnosis, lab results, radiology results, the need for further work-up and treatment in the hospital. 18:00 Physician consultation: Arya Quiroz MD was called at 18:10, was contacted at 18:10, pm1 regarding admission, patient's condition, and will see patient. 18:09 Data reviewed: vital signs. pm1 04/17 16:03 Order name: Basic Metabolic Panel; Complete Time: 17:41 pm04/17 16:03 Order name: CBC with Diff; Complete Time: 17:51 pm04/17 16:03 Order name: LFT's; Complete Time: 17:41 pm04/17 16:03 Order name: Magnesium; Complete Time: 17:41 pm1 04/17 16:03 Order name: NT PRO-BNP; Complete Time: 17:41 pm1 04/17 16:03 Order name: PT-INR; Complete Time: 16:51 pm1 04/17 16:03 Order name: Troponin (emerg Dept Use Only); Complete Time: 17:41 pm1 04/17 16:03 Order name: XRAY Chest (1 view); Complete Time: 16:51 pm04/17 16:03 Order name: EKG; Complete Time: 16:04 pm1 04/17 16:03 Order name: Cardiac monitoring; Complete Time: 16:29 pm1 04/17 16:48 Order name: Manual Differential; Complete Time: 17:51 EDMS 04/17 16:03 Order name: EKG - Nurse/Tech; Complete Time: 16:29 pm1 04/17 16:03 Order name: IV Saline Lock; Complete Time: 16:29 pm1 04/17 16:03 Order name: Labs collected and sent; Complete Time: 16:30 pm1 04/17 16:03 Order name: O2 Per Protocol; Complete Time: 16:30 pm1 04/17 16:03 Order name: O2 Sat Monitoring; Complete Time: 16:30 pm1 Administered Medications: 16:26 Drug: predniSONE 60 mg Route: PO; aj 17:40 Follow up: Response: No adverse reaction aj 17:10 Drug: Albuterol - atroVENT (3:1) (2.5 mg - 0.5 mg) 3 ml Route: Nebulizer; jl7 17:39 Follow up: Response: No adverse reaction aj 18:23 Drug: Lasix 40 mg Route: IVP; Site: right antecubital; aj 19:20 Follow up: Response: No adverse reaction jd3 Disposition: 04/17/18 18:11 Hospitalization ordered by Arya Quiroz for Observation. Preliminary diagnosis are Chronic obstructive pulmonary disease with (acute) exacerbation, Unspecified combined systolic (congestive) and diastolic (congestive) heart failure. - Bed requested for Telemetry/MedSurg (observation). - Status is Observation. jd3 - Condition is Stable. - Problem is new. - Symptoms have improved. UTI on Admission? No Addendum: 04/20/2018 05:47 Co-signature as Attending Physician, Satish Catalan MD I agree with the assessment and c darnell plan of care. Signatures: Dispatcher [employer] EDMO Roseann Erickson RN RN mw Myers, Amanda, RN RN aj Anderson, Corey, MD MD cha Marinas, Patrick, SMALL BOAT ENGINEER SMALL BOAT ENGINEER pm1 Yaneth Bell RN RN jl7 Anatoliy Carter RN RN jd3 Corrections: (The following items were deleted from the chart) 04/17 18:12 18:11 Hospitalization Ordered by Arya Quiroz MD for Observation. Preliminary diagnosis pm1 is Chronic obstructive pulmonary disease with (acute) exacerbation. Bed requested for Telemetry/MedSurg (observation). Status is Observation. Condition is Stable. Problem is new. Symptoms have improved. UTI on Admission? No. pm1 19:31 18:12 04/17/2018 18:11 Hospitalization Ordered by Arya Quiroz MD for Observation. mw Preliminary diagnosis is Chronic obstructive pulmonary disease with (acute) exacerbation; Unspecified combined systolic (congestive) and diastolic (congestive) heart failure. Bed requested for Telemetry/MedSurg (observation). Status is Observation. Condition is Stable. Problem is new. Symptoms have improved. UTI on Admission? No. pm1 20:24 19:31 04/17/2018 18:11 Hospitalization Ordered by Arya Quiroz MD for Observation. jd3 Preliminary diagnosis is Chronic obstructive pulmonary disease with (acute) exacerbation; Unspecified combined systolic (congestive) and diastolic (congestive) heart failure. Bed requested for Telemetry/MedSurg (observation). Status is Observation. Condition is Stable. Problem is new. Symptoms have improved. UTI on Admission? No. mw
--- NOTE | 2018-04-17 18:12 | ER ---
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 Transition of care: patient was not received from another setting of care. Onset of symptoms was April 17, 2018. Risk Assessment: Do you want to hurt yourself or someone else? Patient reports no desire to harm self or others. Initial Sepsis Screen: Does the patient meet any 2 criteria? No. Patient's initial sepsis screen is negative. Does the patient have a suspected source of infection? No. Patient's initial sepsis screen is negative. 15:42 Method Of Arrival: EMS: [facility] 15:42 Acuity: ARIEL 3 aj 15:51 Care prior to arrival: Medication(s) given: ASA, 81 mg, x 4, Nitroglycerin, 0.4 mg SL x aj 1, IV initiated. 20 GA, in the right antecubital area, Glucose check: 98. Triage Assessment: 15:48 General: Appears in no apparent distress. comfortable, Behavior is calm, cooperative, aj appropriate for age. Pain: Complains of pain in chest. Neuro: Level of Consciousness is awake, alert, obeys commands, Oriented to person, place, time, situation, Appropriate for age. Cardiovascular: Reports chest pain, shortness of breath, Capillary refill < 3 seconds in bilateral fingers Patient's skin is warm and dry. Respiratory: Airway is patent Respiratory effort is even, unlabored, Respiratory pattern is regular, symmetrical. GI: Abdomen is round non-distended. Derm: Skin is intact, is healthy with good turgor, Skin is pink, warm \\T\\ dry. normal. Historical: - Allergies: 15:48 Benadryl; aj - Home Meds: 15:48 None [Active]; aj - PMHx: 15:48 Aneurysm; BRAIN; Cancer; PROSTATE; CHF; COPD; Hypertension; Prostate Cancer; aj - Immunization history:: Adult Immunizations up to date. - Social history:: Smoking status: Patient uses tobacco products, smokes one pack cigarettes per day. - Ebola Screening: : Patient negative for fever greater than or equal to 101.5 degrees Fahrenheit, and additional compatible Ebola Virus Disease symptoms Patient denies exposure to infectious person Patient denies travel to an Ebola-affected area in the 21 days before illness onset No symptoms or risks identified at this time. Screenin:27 Abuse screen: Denies threats or abuse. Denies injuries from another. Nutritional aj screening: No deficits noted. Tuberculosis screening: No symptoms or risk factors identified. 20:11 Fall Risk Ambulatory Aid- None/Bed Rest/Nurse Assist (0 pts). Gait- Normal/Bed jd3 Rest/Wheelchair (0 pts) Mental Status- Oriented to own ability (0 pts). Total Chiang Fall Scale indicates No Risk (0-24 pts). Assessment: 16:26 Reassessment: Patient appears in no apparent distress at this time. No changes from aj previously documented assessment. Patient and/or family updated on plan of care and expected duration. Pain level reassessed. Patient is alert, oriented x 3, equal unlabored respirations, skin warm/dry/pink. Provided with food per patient request Patient denies pain at this time. Patient states feeling better. Patient states symptoms have improved. 20:11 Pain: Pain does not radiate. jd3 20:11 Pain: Pain began gradually. jd3 20:15 Reassessment: Patient appears in no apparent distress at this time. No changes from jd3 previously documented assessment. Patient and/or family updated on plan of care and expected duration. Pain level reassessed. Patient is alert, oriented x 3, equal unlabored respirations, skin warm/dry/pink. report called to Sebastián METZ. Vital Signs: 15:48 BP 161 / 102; Pulse 91; Resp 25; Temp 98.4; Pulse Ox 96% on 2 lpm NC; Weight 72.57 kg; aj Height 5 ft. 11 in. (180.34 cm); 17:38 BP 177 / 95; Pulse 97; Resp 24; Pulse Ox 97% on R/A; aj 19:43 BP 159 / 80; Pulse 87; Resp 22; Pulse Ox 96% ; Pain 0/10; tl1 20:19 BP 181 / 96; Pulse 90; Resp 22; Pulse Ox 96% on R/A; Pain 0/10; tl1 15:48 Body Mass Index 22.31 (72.57 kg, 180.34 cm) aj ED Course: 15:41 Patient arrived in ED. aj 15:47 Triage completed. aj 15:48 Arm band placed on left wrist. Patient placed in an exam room, on a stretcher, on aj oxygen, on data entry technician, on pulse oximetry. 15:53 Rj Arnold NP is PHCP. pm1 15:53 Satish Catalan MD is Attending Physician. pm1 16:03 EKG done, by technical producer. reviewed by Rj Arnold NP. sm3 16:14 XRAY Chest (1 view) In Process Unspecified. EDMS 16:15 Liane Morataya, LASHAY is Primary Nurse. aj 18:11 Arya Quiroz MD is Hospitalizing Provider. pm1 20:09 Patient has correct armband on for positive identification. professor of latin american studies on. Pulse jd3 ox on. NIBP on. 20:10 No provider procedures requiring assistance completed. Patient admitted, IV remains in jd3 place. Patient maintains SpO2 saturation greater than 95% on room air. 20:11 IV is patent, is intact, day shift IV maintained in place upon admit.. jd3 Administered Medications: 16:26 Drug: predniSONE 60 mg Route: PO; aj 17:40 Follow up: Response: No adverse reaction aj 17:10 Drug: Albuterol - atroVENT (3:1) (2.5 mg - 0.5 mg) 3 ml Route: Nebulizer; jl7 17:39 Follow up: Response: No adverse reaction aj 18:23 Drug: Lasix 40 mg Route: IVP; Site: right antecubital; aj 19:20 Follow up: Response: No adverse reaction jd3 Output: 20:06 Urine: 900ml (Voided); Total: 900ml. tl1 20:19 Urine: 700ml (Voided); Total: 1600ml. tl1 Outcome: 18:11 Decision to Hospitalize by Provider. pm1 20:14 Admitted to Med/surg accompanied by tech, via wheelchair, room 211, with chart, Report jd3 called to Sebastián METZ 20:14 Condition: stable 20:14 Instructed on the need for admit, Demonstrated understanding of instructions. 20:24 Patient left the ED. jd3 Signatures: Dispatcher [employer] EDMS Morataya Liane, LASHAY RN aj Jasmine Torres RN RN tl1 Rj Arnold, FADI GRADE SETTER pm1 Yaneth Bell RN RN jl7 Anatoliy Carter RN RN jd3 Sharri Luna sm3 Corrections: (The following items were deleted from the chart) 15:51 15:48 BP 161 / 102; Pulse 91bpm; Resp 25bpm; Pulse Ox 96% 2 lpm; Temp 98.4F; 72.57 kg; aj Height 5 ft. 11 in.; BMI: 22.3; aj 15:52 15:42 Care prior to arrival: None. aj aj 19:46 19:43 Pulse 119bpm; Resp 24bpm; Pulse Ox 100%; Temp 98.7F Axillary; Pain 0/10; tl1 tl1
--- NOTE | 2018-04-17 19:03 | P.HP ---
Certification for Inpatient Patient admitted to: Observation With expected LOS: <2 Midnights Practitioner: I am a practitioner with admitting privileges, knowledge of patient current condition, hospital course, and medical plan of care. Services: Services provided to patient in accordance with Admission requirements found in Title 42 Section 412.3 of the Code of Federal Regulations Patient History Date of Service: 04/17/18 History of Present Illness: Mr Terrell is a 67 years old male with history of multiple medical problems including CAD, HTN, COPD, DM II, who was recently admitted to the hospital due to CHF exacerbation. Last ECHO shows EF 40% with global hypokinesia. The patient is well known for our service and he is a non-compliant with his medication. Today, he started with shortness of breath on. He was wheezing. He came to the ER. In the ER, he was hypertensive with oxygen saturation of 90 + percent on room air. Chest x-ray consistent with pulmonary edema. Lab work with leukocytosis elevated pro BNP and troponin. Initially did have some chest pain which resolved with IV Lasix that he received in the ER. Allergies diphenhydramine HCl [From Benadryl] Adverse Reaction (Intermediate, Verified 22:44) Hives Home Medications: NK [No Home Meds] 03/29/18 - Past Medical/Surgical History Diabetic: Yes -: History of prostate cancer -: Hypertension -: History of brain aneurysm requiring surgery -: CHF, systolic dysfunction -: COPD -: Tobacco abuse -: Noncompliance -: Coronary disease, stents x3 to LAD/RCA(Feb 2016) -: Diabetes mellitus type 2 -: GERD -: anemia -: hyperlipidemia -: Prostate surgery -: Brain aneurysm surgery -: Toe surgery R. great toe/childhood -: Heart catheterization-3stents LAD/RCA Psychosocial/ Personal History: He is single, lives alone. He has no children. 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 - Family History Father -: Cancer Notes: brain CA Mother -: Cancer Notes: PANCREATIC CANCER Brother -: Cancer Notes: lung CA - Social History Alcohol use: No CD- Drugs: No Caffeine use: Yes Review of Systems 10-point ROS is otherwise unremarkable Physical Examination - Physical Exam General: Alert, In no apparent distress, Oriented x3 HEENT: Atraumatic, PERRLA, Mucous membr. moist/pink, EOMI, Sclerae nonicteric Neck: Supple, 2+ carotid pulse no bruit, No LAD, Without JVD or thyroid abnormality Respiratory: Dull, Crackles/rales Cardiovascular: Regular rate/rhythm, Normal S1 S2 Gastrointestinal: Normal bowel sounds, No tenderness Musculoskeletal: No tenderness Integumentary: No rashes Neurological: Normal gait, Normal speech, Normal strength at 5/5 x4 extr, Normal tone, Normal affect Lymphatics: No axilla or inguinal lymphadenopathy - Studies Laboratory Data (last 24 hrs) 04/17/18 16:09: PT 22.4 H, INR 1.95 04/17/18 16:09: WBC 9.9, Hgb 9.6 L, Hct 31.7 L, Plt Count 330 04/17/18 16:09: Sodium 142, Potassium 3.9, BUN 21 H, Creatinine 1.08, Glucose 99 , Magnesium 1.9, Total Bilirubin 1.0, AST 242 H, ALT 579 H*, Alkaline Phosphatase 118 H Assessment and Plan - Problems (Diagnosis) (1) Acute dyspnea Onset Date: 11/15/16 Current Visit: No Status: Acute (2) Acute on chronic systolic (congestive) heart failure Onset Date: 09/01/17 Current Visit: No Status: Acute (3) Elevated troponin Onset Date: 03/31/17 Current Visit: No Status: Acute (4) Respiratory failure Onset Date: 09/04/16 Current Visit: No Status: Acute Qualifiers: (5) CAD (coronary artery disease) Current Visit: No Status: Chronic Qualifiers: (6) COPD (chronic obstructive pulmonary disease) Onset Date: 03/21/15 Current Visit: No Status: Chronic Qualifiers: (7) Noncompliance Onset Date: 03/18/16 Current Visit: No Status: Chronic (8) Tobacco abuse Onset Date: 02/05/16 Current Visit: No Status: Chronic (9) Type 2 diabetes mellitus Onset Date: 12/10/16 Current Visit: No Status: Chronic Qualifiers: - Plan Will admit the patient to the hospital due to acute on chronic respiratory failure due to acute on chronic systolic CHF exacerbation. Will order IV lasix, close monitor of body fluid balance. - Advance Directives Does patient have a Living Will: No Does patient have a Durable POA for Healthcare: No
[2018-04-17] MEDS ORDERED: ALBUTEROL 2.5 MG/3 ML NEB SOL NEB PRN (20:34)
[2018-04-17] MEDS ORDERED: IPRATROPIUM BROM 0.5MG/2.5ML NEB PRN (20:34)
[2018-04-18 05:34] LABS: Absolute Lymphocytes (CBC) 1.4 K/uL (0.7-4.9); Absolute Monocytes 0.5 K/uL (0.1-1.3); Absolute Neutrophil 4.2 K/uL (1.8-8.0); Basophils % 0.1 % (0-1.3); Hematocrit 31.7 % (39.6-49.0); Lymphocytes % 23.6 % (15.3-44.8); Monocytes % 7.5 % (3.3-12.3); RBC Red Blood Cell Count 4.97 M/uL (4.33-5.43)
[2018-04-18 05:56] LABS: Bilirubin Total 0.7 mg/dL (0.2-1.0); Potassium 3.8 mmol/L (3.5-5.1); Protein, Total 5.7 g/dL (6.4-8.2)
[2018-04-18] MEDS: FUROSEMIDE 20 MG/ 2ML VIAL IV SCH ×2 (08:22→16:09)
[2018-04-18] MEDS: ENOXAPARIN 40 MG/0.4 ML SQ SCH (08:22)
[2018-04-18 08:46] LABS: Urine Appearance CLEAR; Urine Bilirubin NEGATIVE (NEG); Urine Blood NEGATIVE (NEG); Urine Color YELLOW; Urine Glucose 3+ (NEG); Urine Protein 2+ (NEG); Urine pH 5.5 (5.0-7.0)
[2018-04-18 08:53] LABS: Urine Bacteria NONE SEEN /HPF (NONE SEEN); Urine Culture Reflex Order NOT NEEDED; Urine RBC NONE SEEN /HPF (NONE SEEN)
[2018-04-18] MEDS ORDERED: POTASSIUM 25 MEQ EFFERV TAB PO ONE (09:00)
[2018-04-18 09:33] LABS: Anisocytosis 1+; Blood Morphology Comment NOTED (NOT SEEN); Platelet Estimate ADEQ; Poikilocytosis 1+
--- NOTE | 2018-04-18 12:49 | P.PN ---
Subjective Date of Service: 04/18/18 Chief Complaint: Shortness of breath Subjective: No C/O voiced, Improving Patient seen and examined at bedside. No family at bedside. Chart reviewed and case discussed with nursing staff. No complaints this morning. Reports improved breathing, though not back to baseline. Review of Systems 10-point ROS is otherwise unremarkable Physical Examination - Vital Signs Temperature: 98.6 F Blood Pressure: 165/79 Pulse: 85 Respirations: 16 Pulse Ox (%): 93 - Physical Exam General: Alert, In no apparent distress, Oriented x3 HEENT: Atraumatic, PERRLA, EOMI Neck: Supple, JVD not distended Respiratory: Dull, Expiratory wheezes Cardiovascular: Regular rate/rhythm, Normal S1 S2 Gastrointestinal: Normal bowel sounds, No tenderness Musculoskeletal: No tenderness Integumentary: No rashes Neurological: Normal speech, Normal tone, Normal affect Lymphatics: No axilla or inguinal lymphadenopathy - Studies Laboratory Data (last 24 hrs) 04/17/18 16:09: PT 22.4 H, INR 1.95 04/17/18 16:09: WBC 9.9, Hgb 9.6 L, Hct 31.7 L, Plt Count 330 04/17/18 16:09: Sodium 142, Potassium 3.9, BUN 21 H, Creatinine 1.08, Glucose 99 , Magnesium 1.9, Total Bilirubin 1.0, AST 242 H, ALT 579 H*, Alkaline Phosphatase 118 H Assessment And Plan - Current Problems (Diagnosis) (1) Acute dyspnea Onset Date: 11/15/16 Current Visit: No Status: Acute (2) Acute on chronic systolic (congestive) heart failure Onset Date: 09/01/17 Current Visit: No Status: Acute (3) Elevated troponin Onset Date: 03/31/17 Current Visit: No Status: Acute (4) Respiratory failure Onset Date: 09/04/16 Current Visit: No Status: Acute Qualifiers: (5) CAD (coronary artery disease) Current Visit: No Status: Chronic Qualifiers: (6) COPD (chronic obstructive pulmonary disease) Onset Date: 03/21/15 Current Visit: No Status: Chronic Qualifiers: (7) Noncompliance Onset Date: 03/18/16 Current Visit: No Status: Chronic (8) Tobacco abuse Onset Date: 02/05/16 Current Visit: No Status: Chronic (9) Type 2 diabetes mellitus Onset Date: 12/10/16 Current Visit: No Status: Chronic Qualifiers: (10) Elevated LFTs Current Visit: Yes Status: Acute - Plan We will continue to monitor patient on the floor for acute on chronic respiratory failure due to acute on chronic systolic CHF exacerbation. Continue with IV lasix, close monitor of body fluid balance. We will continue to monitor the LFTs. If not trending down, will get an abdominal ultrasound. Likely discharge home in the next 24 hr
[2018-04-18] MEDS ORDERED: METOPROLOL TAR 50 MG TAB PO ONE (22:08)
[2018-04-19 05:15] VITALS: O2SAT 96
[2018-04-19 05:25] VITALS: BMI 24.9
[2018-04-19 05:37] LABS: Potassium 3.8 mmol/L (3.5-5.1)
[2018-04-19] MEDS ORDERED: POTASSIUM CL SA 10 MEQ TAB PO ONE (08:00)
[2018-04-19] MEDS: FUROSEMIDE 20 MG/ 2ML VIAL IV SCH (09:11)
[2018-04-19] MEDS: ENOXAPARIN 40 MG/0.4 ML SQ SCH (09:11)
--- NOTE | 2018-04-19 11:24 | P.SSS ---
Patient History Date of Service: 04/19/18 Reason for admission: Shortness of breath History of Present Illness: Mr Terrell is a 67 years old male with history of multiple medical problems including CAD, HTN, COPD, DM II, who was recently admitted to the hospital due to CHF exacerbation. Last ECHO shows EF 40% with global hypokinesia. The patient is well known for our service and he is a non-compliant with his medication. Today, he started with shortness of breath on. He was wheezing. He came to the ER. In the ER, he was hypertensive with oxygen saturation of 90 + percent on room air. Chest x-ray consistent with pulmonary edema. Lab work with leukocytosis elevated pro BNP and troponin. Initially did have some chest pain which resolved with IV Lasix that he received in the ER. Allergies diphenhydramine HCl [From Benadryl] Adverse Reaction (Intermediate, Verified 21:41) Hives Home Medications: NK [No Home Meds] 03/29/18 - Past Medical/Surgical History Has patient received pneumonia vaccine in the past: Yes Diabetic: No -: History of prostate cancer -: Hypertension -: History of brain aneurysm requiring surgery -: CHF, systolic dysfunction -: COPD -: Tobacco abuse -: hyperlipidemia -: Coronary disease, stents x3 to LAD/RCA(Feb 2016) -: anemia -: GERD -: anemia -: hyperlipidemia -: Prostate surgery -: Brain aneurysm surgery -: Toe surgery R. great toe/childhood -: Heart catheterization-3stents LAD/RCA Psychosocial/ Personal History: He is single, lives alone. He has no children. 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 - Family History Father -: Cancer Notes: brain cancer Mother -: Cancer Notes: pancreatic can cer Brother -: Cancer Notes: lung cancer - Social History Smoking Status: Current every day smoker Alcohol use: No CD- Drugs: No Caffeine use: Yes Place of Residence: [facility] Review of Systems 10-point ROS is otherwise unremarkable Physical Examination - Vital Signs Temperature: 98.6 F Blood Pressure: 161/101 Pulse: 78 Respirations: 20 Pulse Ox (%): 96 - Physical Exam General: Alert, In no apparent distress, Oriented x3 HEENT: Atraumatic, PERRLA, Mucous membr. moist/pink, EOMI, Sclerae nonicteric Neck: Supple, 2+ carotid pulse no bruit, No LAD, Without JVD or thyroid abnormality Respiratory: Clear to auscultation bilaterally, Normal air movement Cardiovascular: Regular rate/rhythm, Normal S1 S2 Gastrointestinal: Normal bowel sounds, No tenderness Musculoskeletal: No tenderness Integumentary: No rashes Neurological: Normal gait, Normal speech, Normal strength at 5/5 x4 extr, Normal tone, Normal affect Lymphatics: No axilla or inguinal lymphadenopathy - Diagnosis (Problem(s)) (1) Acute dyspnea Onset Date: 11/15/16 Current Visit: No Status: Acute (2) Acute on chronic systolic (congestive) heart failure Onset Date: 09/01/17 Current Visit: No Status: Acute (3) Elevated troponin Onset Date: 03/31/17 Current Visit: No Status: Acute (4) Respiratory failure Onset Date: 09/04/16 Current Visit: No Status: Acute Qualifiers: (5) CAD (coronary artery disease) Current Visit: No Status: Chronic Qualifiers: (6) COPD (chronic obstructive pulmonary disease) Onset Date: 03/21/15 Current Visit: No Status: Chronic Qualifiers: (7) Noncompliance Onset Date: 03/18/16 Current Visit: No Status: Chronic (8) Tobacco abuse Onset Date: 02/05/16 Current Visit: No Status: Chronic (9) Type 2 diabetes mellitus Onset Date: 12/10/16 Current Visit: No Status: Chronic Qualifiers: (10) Elevated LFTs Current Visit: Yes Status: Acute Treatment Summary: The patient is a 67-year-old male with past medical history of COPD, heart disease, CHF, systolic dysfunction, who has had multiple readmissions to the hospital for shortness of breath related to heart failure. The patient is homeless and prefers to live in the [facility]. States he is noncompliant with his medications and does not wish to take his medications. He has even been given medications paid for by another hospitalist and did not take his medications. He does go to the [employer] off and on. However, he states that he does not get along with people and prefers to be alone. The patient is noncompliant with his diet as well and came in with shortness of breath. He was found to have flash pulmonary edema. His blood pressure was not well controlled. His medications were adjusted. IV medications were implemented. The patient was started on IV Lasix. The patient did have a good response to diuretics. His fluid balance was negative. The patient again was noncompliant with his diet in the hospital, getting food from the gift shop, not following fluid restriction. The patient's last echocardiogram was in July of 2017. EF showed 40 % with some mild global hypokinesis. The patient's symptoms improved. His edema resolved. He was able to be weaned off oxygen. Therefore, the patient was discharged in a stable condition. - Disposition Disposition: ROUTINE DISCHARGE Diet: Low sodium Activity: Ad kim Time Spent Managing Pts Care (In Minutes): 45
[2018-04-19 14:31] VITALS: BP 161/101; TEMP 98.6
== END 2018-04-19 16:30 | disposition home or self-care (01) ==
LOC: ER 15:36 → ERHOLD 18:13 → 2ND 20:16
PROVIDERS: ADMIT Family Medicine; ATTEND Family Medicine
DX: I11.0 Hypertensive heart disease with heart failure (principal); I50.23 Acute on chronic systolic (congestive) heart failure; J96.10 Chronic respiratory failure, unspecified whether with hypoxia or hypercapnia; I25.10 Atherosclerotic heart disease of native coronary artery without angina pectoris; E11.9 Type 2 diabetes mellitus without complications; J44.9 Chronic obstructive pulmonary disease, unspecified; Z91.14 Patient's other noncompliance with medication regimen; Z85.46 Personal history of malignant neoplasm of prostate; Z95.5 Presence of coronary angioplasty implant and graft; F17.210 Nicotine dependence, cigarettes, uncomplicated; E78.5 Hyperlipidemia, unspecified; Z59.0 Homelessness
CPT/HCPCS: 36415 ×2; 71045; 80048 ×2; 80053; 80076; 81001; 83735; 83880; 84484; 85025 ×2; 85610; 87070; 87077; 87186; 87205; 93005; 94640; 94760 ×3; 96374; 99285; G0378 ×2; J1650 ×2; J1940 ×4; J7512

== ENCOUNTER 2018-04-20 20:51 | Observation (INO) | payer OTHER ==
--- OUTSIDE RECORDS SUMMARY | 2018-04-20 20:53 | XMS REPORT ---
:1950 [facility] Address [address] [place] [address] Care Team Providers Name Role Phone Unavailable [...]
[2018-04-20] MEDS ORDERED: METHYLPREDNISOLONE 125 MG INJ ONE (21:29)
[2018-04-20] MEDS ORDERED: IPRATROPIUM BROM 0.5MG/2.5ML ONE (21:30)
[2018-04-20] MEDS ORDERED: ALBUTEROL 2.5 MG/3 ML NEB SOL ONE (21:30)
[2018-04-20] MEDS ORDERED: FUROSEMIDE 40 MG/4 ML VIAL ONE (21:30)
[2018-04-20 21:48] LABS: Protime INR 1.34
[2018-04-20 22:04] LABS: Albumin 3.2 g/dL (3.4-5.0); Bilirubin Direct 0.3 mg/dL (0-0.2); Bilirubin Total 0.7 mg/dL (0.2-1.0); CKMB Creatine Kinase MB 3.7 ng/mL (0.3-3.6); Magnesium 2.2 mg/dL (1.8-2.4); Potassium 3.8 mmol/L (3.5-5.1); Protein, Total 6.2 g/dL (6.4-8.2); Troponin (Emerg Dept Use Only) 0.06 ng/mL (0.0-0.045)
[2018-04-20] MEDS ORDERED: Levofloxacin 750mg IV 750 MG/150 ML BAG IV ONE (22:19)
[2018-04-20 22:32] LABS: Absolute Lymphocytes (CBC) 2.2 K/uL (0.7-4.9); Absolute Monocytes 1.5 K/uL (0.1-1.3); Absolute Neutrophil 4.3 K/uL (1.8-8.0); Basophils % 0.8 % (0-1.3); Eosinophils % 4.6 % (0-4.4); Hematocrit 33.7 % (39.6-49.0); Lymphocytes % 26.1 % (15.3-44.8); RBC Red Blood Cell Count 5.19 M/uL (4.33-5.43)
[2018-04-20 23:14] LABS: Blood Morphology Comment NOTED (NOT SEEN); Hypochromasia 2+; Platelet Estimate ADEQ; Polychromasia 1+
--- NOTE | 2018-04-20 23:51 | ER ---
Nurse's Notes [facility] Name: Mark Terrell Age: 67 yrs Sex: Male : 1950 Arrival Date: 04/20/2018 Time: 20:53 Bed 6 Private MD: Diagnosis: Acute combined systolic (congestive) and diastolic (congestive) heart failure Presentation: 04/20 20:56 Presenting complaint: EMS states: Shortness of breath that began 1 hour ago; hx of lp1 COPD; Per EMS, patient at 95% on RA, 18 respirations per minute. Transition of care: patient was not received from another setting of care. Onset of symptoms was April 20, 2018 at 20:00. Risk Assessment: Do you want to hurt yourself or someone else? Patient reports no desire to harm self or others. Initial Sepsis Screen:. Care prior to arrival: None. 20:56 Method Of Arrival: EMS: [facility] lp1 20:56 Acuity: ARIEL 3 lp1 21:00 Initial Sepsis Screen: Does the patient meet any 2 criteria? No. Patient's initial lp1 sepsis screen is negative. Does the patient have a suspected source of infection? No. Patient's initial sepsis screen is negative. Historical: - Allergies: 21:00 Benadryl; lp1 - Home Meds: 21:00 None [Active]; lp1 - PMHx: 21:00 Aneurysm; BRAIN; Atrial Fib; Cancer; PROSTATE; CHF; COPD; Hypertension; Prostate Cancer;lp1 - PSHx: 21:00 Prostatectomy; lp1 - Immunization history:: Adult Immunizations unknown. - Social history:: Smoking status: Patient uses tobacco products, smokes one-half pack cigarettes per day, Patient/guardian denies using alcohol, street drugs, The patient lives with family. - Ebola Screening: : No symptoms or risks identified at this time. - Family history:: not pertinent. - Hospitalizations: : No recent hospitalization is reported. Screenin:01 Abuse screen: Denies threats or abuse. Denies injuries from another. Nutritional lp1 screening: No deficits noted. Tuberculosis screening: No symptoms or risk factors identified. Fall Risk None identified. Assessment: 21:00 General: Appears uncomfortable, Behavior is appropriate for age. Pain: Denies pain. lp1 Neuro: Level of Consciousness is awake, alert, obeys commands, Oriented to person, place, time, situation. Cardiovascular: Patient's skin is warm and dry. Rhythm is sinus rhythm. Respiratory: Reports shortness of breath at rest Airway is patent Trachea midline Respiratory effort is even, labored, Respiratory pattern is regular, Breath sounds are coarse bilaterally. Onset: The symptoms/episode began/occurred gradually, the patient has moderate shortness of breath. GI: Abdomen is flat. : No signs and/or symptoms were reported regarding the genitourinary system. EENT: No signs and/or symptoms were reported regarding the EENT system. Derm: Skin is intact, with poor turgor Skin is dry, Skin is normal. Musculoskeletal: Circulation, motion, and sensation intact. 22:00 Reassessment: Patient appears in no apparent distress at this time. Patient and/or lp1 family updated on plan of care and expected duration. Pain level reassessed. Patient appears calm, watching TV in room Patient states feeling better. Respiratory: Respiratory effort is even, unlabored, Respiratory pattern is regular. 23:00 Reassessment: Patient appears in no apparent distress at this time. Patient and/or lp1 family updated on plan of care and expected duration. Pain level reassessed. Patient resting, eyes closed, respirations unlabored Patient states symptoms have improved. Vital Signs: 20:59 BP 175 / 98; Pulse 87; Resp 24; Temp 98.3(O); Pulse Ox 98% on R/A; Weight 76.2 kg; lp1 Height 5 ft. 11 in. (180.34 cm); Pain 0/10; 21:30 BP 160 / 100; Pulse 94; Resp 24; Pulse Ox 97% on R/A; lp1 22:00 BP 170 / 104; Pulse 86; Resp 26; Pulse Ox 100% on Nebulizer Mask; lp1 22:45 BP 168 / 100; Pulse 94; Resp 24; Pulse Ox 99% on R/A; lp1 23:06 BP 162 / 94; Pulse 99; Resp 23; Pulse Ox 95% on R/A; Pain 0/10; ed1 23:40 BP 152 / 84; Pulse 96; Resp 26; Pulse Ox 94% on R/A; lp1 04/21 00:33 BP 174 / 72; Pulse 92; Resp 20; Pulse Ox 95% on 2 lpm NC; Pain 0/10; ed1 00:45 BP 139 / 61; ed1 0218 20:59 Body Mass Index 23.43 (76.20 kg, 180.34 cm) lp1 ED Course: 04/20 20:53 Patient arrived in ED. aa1 20:55 Jose Huitron MD is Attending Physician. ma2 20:59 Triage completed. lp1 20:59 Arm band placed on left wrist. lp1 21:01 Patient has correct armband on for positive identification. Placed in gown. Bed in low lp1 position. Call light in reach. surveillance monitor on. Pulse ox on. NIBP on. 21:25 Inserted saline lock: 20 gauge in right forearm, using aseptic technique. Blood lp1 collected. 21:25 First set of blood cultures drawn by me. lp1 22:03 Notified ED physician of a critical lab result(s). D-Dimer 1335 Dr Weems notified. bb 22:[address] via stretcher. vm2 22:20 CT completed. Patient tolerated procedure well. Patient moved back from CT. vm2 22:35 CT Chest For PE Angio In Process Unspecified. EDMS 22:36 XRAY CXR (1 view) In Process Unspecified. EDMS 22:45 Trisha Armando, LASHAY is Primary Nurse. lp1 23:49 Whit Fuentes MD is Hospitalizing Provider. ma2 23:52 No provider procedures requiring assistance completed. Patient admitted, IV remains in lp1 place. Administered Medications: 21:20 Drug: Albuterol 2.5 mg Route: Inhalation; lp1 21:20 Drug: AtroVENT Aerosol 0.5 mg Route: Inhalation; lp1 21:30 Drug: SOLU-Medrol 125 mg Route: IVP; Site: right forearm; lp1 22:41 Follow up: Response: No adverse reaction lp1 21:30 Drug: Lasix 40 mg Route: IVP; Site: right forearm; lp1 22:41 Follow up: Urine output 800 ml; Response: No adverse reaction lp1 21:40 Drug: Albuterol 2.5 mg Route: Inhalation; lp1 21:40 Drug: AtroVENT Aerosol 0.5 mg Route: Inhalation; lp1 22:10 Drug: Albuterol 2.5 mg Route: Inhalation; lp1 22:10 Drug: AtroVENT Aerosol 0.5 mg Route: Inhalation; lp1 22:41 Drug: LevaQUIN 750 mg Volume: 150 ml; Route: IVPB; Infused Over: 90 mins; Site: right lp1 forearm; 04/21 00:43 Follow up: Response: No adverse reaction; IV Status: Completed infusion; IV Intake: ed1 150ml 00:43 Not Given (Hemodynamic Parameters): Lasix 40 mg IVP once ed1 Intake: 00:43 IV: 150ml; Total: 150ml. ed1 Output: 04/20 22:41 Urine: 800ml; Total: 800ml. lp1 22:42 Urine: 800ml (Voided); Total: 1600ml. lp1 22:53 Urine: 500ml (Voided); Total: 2100ml. lp1 23:51 Urine: 900ml (Voided); Total: 3000ml. lp1 04/21 00:45 Urine: 900ml (Voided); Total: 3900ml. lp1 Outcome: 04/20 23:50 Decision to Hospitalize by Provider. ma2 23:52 Condition: stable lp1 23:52 Instructed on the need for admit. 04/21 01:06 Admitted to Med/surg accompanied by tech, via wheelchair, with oxygen, with chart, ed1 Report called to LASHAY Hernandez Condition: stable Discharge instructions given to patient, Instructed on the need for admit, Demonstrated understanding of instructions. 01:07 Patient left the ED. ed1 Signatures: Dispatcher [employer] EDMS Marian Mcpherson RN RN aa1 Myriam Roldan RN RN bb Riggs, Erika, RN RN ed1 Trisha Armando RN RN 1 Vesta Valdes [facility] Jose Huitron MD MD ok2 Corrections: (The following items were deleted from the chart) 04/20 22:44 21:00 Respiratory: Airway is patent Trachea midline Respiratory effort is even, lp1 labored, Respiratory pattern is regular, Breath sounds are coarse bilaterally. Onset: The symptoms/episode began/occurred gradually, the patient has moderate shortness of breath lp1 04/21 00:42 00:33 BP 174 / 72; Pulse 92bpm; Resp 20bpm; Pulse Ox 95% RA; Pain 0/10; ed1 ed1
--- NOTE | 2018-04-20 23:51 | EDPHYS ---
Physician Documentation [facility] Name: Mark Terrell Age: 67 yrs Sex: Male : 1950 Arrival Date: 04/20/2018 Time: 20:53 Bed 6 Private MD: ED Physician Jose uHitron HPI: 04/20 22:38 This 67 yrs old Male presents to ER via EMS with complaints of Shortness Of ma2 Breath. 22:38 The patient has shortness of breath with light activity. Onset: The symptoms/episode ma2 began/occurred gradually, 2 day(s) ago. Duration: The symptoms are chronic. Associated signs and symptoms: Pertinent positives: productive cough, Pertinent negatives: diaphoresis, dizziness, hemoptysis, loss of consciousness, nausea. Severity of symptoms: At their worst the symptoms were moderate in the emergency department the symptoms are unchanged. The patient has not experienced similar symptoms in the past. Historical: - Allergies: 21:00 Benadryl; lp1 - Home Meds: 21:00 None [Active]; lp1 - PMHx: 21:00 Aneurysm; BRAIN; Atrial Fib; Cancer; PROSTATE; CHF; COPD; Hypertension; Prostate Cancer;lp1 - PSHx: 21:00 Prostatectomy; lp1 - Immunization history:: Adult Immunizations unknown. - Social history:: Smoking status: Patient uses tobacco products, smokes one-half pack cigarettes per day, Patient/guardian denies using alcohol, street drugs, The patient lives with family. - Ebola Screening: : No symptoms or risks identified at this time. - Family history:: not pertinent. - Hospitalizations: : No recent hospitalization is reported. ROS: 22:38 Constitutional: Negative for fever, chills, and weight loss, Cardiovascular: Negative ma2 for chest pain, palpitations, and edema, Abdomen/GI: Negative for abdominal pain, nausea, diarrhea, and constipation, MS/Extremity: Negative for injury and deformity. 22:38 Respiratory: Positive for cough, dyspnea on exertion, Negative for orthopnea, shortness of breath, sputum production. 22:38 All other systems are negative. Exam: 22:38 Constitutional: This is a well developed, well nourished patient who is awake, alert, ma2 and in no acute distress. Chest/axilla: Normal chest wall appearance and motion. Nontender with no deformity. No lesions are appreciated. Cardiovascular: Regular rate and rhythm with a normal S1 and S2. No gallops, murmurs, or rubs. Normal PMI, no JVD. No pulse deficits. Abdomen/GI: Soft, non-tender, with normal bowel sounds. No distension or tympany. No guarding or rebound. No evidence of tenderness throughout. Back: No spinal tenderness. No costovertebral tenderness. Full range of motion. MS/ Extremity: Pulses equal, no cyanosis. Neurovascular intact. Full, normal range of motion. Neuro: Awake and alert, GCS 15, oriented to person, place, time, and situation. Cranial nerves II-XII grossly intact. Motor strength 5/5 in all extremities. Sensory grossly intact. Cerebellar exam normal. Normal gait. 22:38 Respiratory: moderate respiratory distress is noted, Respirations: labored breathing, Breath sounds: rhonchi. Vital Signs: 20:59 BP 175 / 98; Pulse 87; Resp 24; Temp 98.3(O); Pulse Ox 98% on R/A; Weight 76.2 kg; lp1 Height 5 ft. 11 in. (180.34 cm); Pain 0/10; 21:30 BP 160 / 100; Pulse 94; Resp 24; Pulse Ox 97% on R/A; lp1 22:00 BP 170 / 104; Pulse 86; Resp 26; Pulse Ox 100% on Nebulizer Mask; lp1 22:45 BP 168 / 100; Pulse 94; Resp 24; Pulse Ox 99% on R/A; lp1 23:06 BP 162 / 94; Pulse 99; Resp 23; Pulse Ox 95% on R/A; Pain 0/10; ed1 23:40 BP 152 / 84; Pulse 96; Resp 26; Pulse Ox 94% on R/A; lp1 04/21 00:33 BP 174 / 72; Pulse 92; Resp 20; Pulse Ox 95% on 2 lpm NC; Pain 0/10; ed1 00:45 BP 139 / 61; ed1 04/20 20:59 Body Mass Index 23.43 (76.20 kg, 180.34 cm) lp1 MDM: 04/20 20:55 Patient medically screened. ma2 22:38 Differential diagnosis: Bronchitis CHF exacerbation, Chronic Obstructive Pulmonary ma2 Disease reactive airway disease. Antibiotic administration: The patient is discharged and will get outpatient antibiotics. 23:49 Data reviewed: vital signs, nurses notes. Counseling: I had a detailed discussion with [facility] the patient and/or guardian regarding: the historical points, exam findings, and any diagnostic results supporting the discharge/admit diagnosis, the presence of at least one elevated blood pressure reading (>120/80) during this emergency department visit, the need for further work-up and treatment in the hospital. Response to treatment: the patient's symptoms have markedly improved after treatment. ED course: discussed with dr. soto . 04/20 21:03 Order name: Blood Culture Adult (2) sc04/20 21:03 Order name: BMP; Complete Time: 22:57 [facility] 04/20 21:03 Order name: CBC with Diff; Complete Time: 23:32 sc2 04/20 21:03 Order name: Ckmb; Complete Time: 22:57 sc2 04/20 21:03 Order name: CPK; Complete Time: 22:57 [facility] 04/20 21:03 Order name: D-Dimer; Complete Time: 22:57 [facility] 04/20 21:03 Order name: Hepatic Function; Complete Time: 22:57 sc2 04/20 21:03 Order name: Lipase; Complete Time: 22:57 [facility] 04/20 21:03 Order name: Magnesium; Complete Time: 22:57 sc2 04/20 21:03 Order name: NT PRO-BNP; Complete Time: 22:57 sc2 04/20 21:03 Order name: PT-INR; Complete Time: 22:57 [facility] 04/20 21:03 Order name: Ptt, Activated; Complete Time: 22:57 [facility] 04/20 21:03 Order name: Troponin (emerg Dept Use Only); Complete Time: 22:57 [facility] 04/20 23:14 Order name: Manual Differential; Complete Time: 23:32 EDMS 04/20 21:03 Order name: XRAY CXR (1 view) sc04/20 21:03 Order name: EKG; Complete Time: 21:04 sc2 04/20 21:03 Order name: Cardiac monitoring; Complete Time: 21:42 sc2 04/20 21:03 Order name: EKG - Nurse/Tech; Complete Time: 21:42 sc2 04/20 21:03 Order name: IV Saline Lock; Complete Time: 21:42 sc2 04/20 21:03 Order name: Labs collected and sent; Complete Time: 21:42 sc2 04/20 21:03 Order name: O2 Per Protocol; Complete Time: 21:42 sc2 04/20 21:03 Order name: O2 Sat Monitoring; Complete Time: 21:44 sc2 04/20 22:02 Order name: CT Chest For PE Angio ma2 Administered Medications: 21:20 Drug: Albuterol 2.5 mg Route: Inhalation; lp1 21:20 Drug: AtroVENT Aerosol 0.5 mg Route: Inhalation; lp1 21:30 Drug: SOLU-Medrol 125 mg Route: IVP; Site: right forearm; lp1 22:41 Follow up: Response: No adverse reaction lp1 21:30 Drug: Lasix 40 mg Route: IVP; Site: right forearm; lp1 22:41 Follow up: Urine output 800 ml; Response: No adverse reaction lp1 21:40 Drug: Albuterol 2.5 mg Route: Inhalation; lp1 21:40 Drug: AtroVENT Aerosol 0.5 mg Route: Inhalation; lp1 22:10 Drug: Albuterol 2.5 mg Route: Inhalation; lp1 22:10 Drug: AtroVENT Aerosol 0.5 mg Route: Inhalation; lp1 22:41 Drug: LevaQUIN 750 mg Volume: 150 ml; Route: IVPB; Infused Over: 90 mins; Site: right lp1 forearm; 04/21 00:43 Follow up: Response: No adverse reaction; IV Status: Completed infusion; IV Intake: ed1 150ml 00:43 Not Given (Hemodynamic Parameters): Lasix 40 mg IVP once ed1 Disposition: 04/20/18 23:50 Hospitalization ordered by Whit Soto for Observation. Preliminary diagnosis is Acute combined systolic (congestive) and diastolic (congestive) heart failure. - Bed requested for Telemetry/MedSurg (Inpatient). - Status is Observation. ed1 - Condition is Stable. - Problem is new. - Symptoms are unchanged. UTI on Admission? No Signatures: Dispatcher [employer] EDMS Roseann Erickson RN RN Susan Tracy RN RN ed1 Trisha Armando RN RN lp1 Jose Huitron MD MD ma2 Corrections: (The following items were deleted from the chart) 00:23 04/20 23:50 Hospitalization Ordered by Whit Soto MD for Observation. Preliminary mw diagnosis is Acute combined systolic (congestive) and diastolic (congestive) heart failure. Bed requested for Telemetry/MedSurg (Inpatient). Status is Observation. Condition is Stable. Problem is new. Symptoms are unchanged. UTI on Admission? No. ma2 04/21 01:07 00:23 04/20/2018 23:50 Hospitalization Ordered by Whit Soto MD for Observation. ed1 Preliminary diagnosis is Acute combined systolic (congestive) and diastolic (congestive) heart failure. Bed requested for Telemetry/MedSurg (Inpatient). Status is Observation. Condition is Stable. Problem is new. Symptoms are unchanged. UTI on Admission? No. mw
--- NOTE | 2018-04-21 00:31 | P.HP ---
Certification for Inpatient Patient admitted to: Observation With expected LOS: <2 Midnights Practitioner: I am a practitioner with admitting privileges, knowledge of patient current condition, hospital course, and medical plan of care. Services: Services provided to patient in accordance with Admission requirements found in Title 42 Section 412.3 of the Code of Federal Regulations Patient History Date of Service: 04/21/18 Reason for admission: flash pulmonary edema History of Present Illness: Mr Terrell is a 67 years old male, homeless, well known by our service due to multiple admission secondary to CHF exacerbation due to medication non- compliance. He has history of COPD still smoking, HTN, CAD, chronic systolic CHF. At this time he came to ED complaining of SOB, started about 3 HR ago. He called 911, EMS found the patient tachypneic, O2 Sat 95% on RA. No history of chest pain, fever ,chills, or cough. At arrival, BP was 175/98. proBNP 13K (his baseline is elevated about this level), trop I 0.06, transaminases elevated, ( lower compared with the last time), CXR bilateral infiltrate consistent with pulmonary edema. Allergies diphenhydramine HCl [From Benadryl] Adverse Reaction (Intermediate, Verified 21:41) Hives Home Medications: NK [No Home Meds] 03/29/18 - Past Medical/Surgical History Has patient received pneumonia vaccine in the past: Yes Diabetic: No -: History of prostate cancer -: Hypertension -: History of brain aneurysm requiring surgery -: CHF, systolic dysfunction -: COPD -: Tobacco abuse -: hyperlipidemia -: Coronary disease, stents x3 to LAD/RCA(Feb 2016) -: anemia -: GERD -: anemia -: hyperlipidemia -: Prostate surgery -: Brain aneurysm surgery -: Toe surgery R. great toe/childhood -: Heart catheterization-3stents LAD/RCA Psychosocial/ Personal History: He is single, lives alone. He has no children. 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 - Family History Father -: Cancer Notes: brain cancer Mother -: Cancer Notes: pancreatic can cer Brother -: Cancer Notes: lung cancer - Social History Smoking Status: Current every day smoker Counseled patient to stop smoking for: less than 10 minutes Alcohol use: No CD- Drugs: No Caffeine use: Yes Place of Residence: Home Review of Systems 10-point ROS is otherwise unremarkable Physical Examination - Physical Exam General: Alert, In no apparent distress HEENT: Atraumatic, PERRLA, Mucous membr. moist/pink, EOMI, Sclerae nonicteric Neck: Supple, 2+ carotid pulse no bruit, No LAD, Without JVD or thyroid abnormality Respiratory: Diminished, Crackles/rales (bibasilar rales) Cardiovascular: Normal S1 S2, No gallops Gastrointestinal: Normal bowel sounds, No tenderness Musculoskeletal: No tenderness Integumentary: No rashes Neurological: Normal speech, Normal strength at 5/5 x4 extr, Normal tone, Normal affect Lymphatics: No axilla or inguinal lymphadenopathy - Studies Laboratory Data (last 24 hrs) 04/20/18 21:25: PT 15.6 H, INR 1.34, APTT 29.0 04/20/18 21:25: WBC 8.6 D, Hgb 9.9 L, Hct 33.7 L, Plt Count 309 04/20/18 21:25: Sodium 143, Potassium 3.8, BUN 23 H, Creatinine 1.33 H, Glucose 141 H, Magnesium 2.2, Total Bilirubin 0.7, AST 110 H, ALT 401 H* D, Alkaline Phosphatase 98, Lipase 125 Assessment and Plan - Problems (Diagnosis) (1) Acute on chronic systolic (congestive) heart failure Onset Date: 09/01/17 Current Visit: No Status: Acute (2) Elevated LFTs Current Visit: No Status: Acute (3) Elevated troponin Onset Date: 03/31/17 Current Visit: No Status: Acute (4) Flash pulmonary edema Onset Date: 07/19/16 Current Visit: No Status: Acute (5) Hypertension Onset Date: 02/05/16 Current Visit: No Status: Chronic Qualifiers: Hypertension type: essential hypertension (6) Noncompliance Onset Date: 03/18/16 Current Visit: No Status: Chronic (7) Tobacco abuse Onset Date: 02/05/16 Current Visit: No Status: Chronic - Plan The patient will be admitted due to flash pulmonary edema due to medication non- compliance. Will continue with IV lasxi, Nitro paste, PRN med for hypertension. He may be discharge in AM if symptoms improves. - Advance Directives Does patient have a Living Will: No Does patient have a Durable POA for Healthcare: No - Code Status/Comfort Care Code Status Assessed: Yes Code Status: Full Code
[2018-04-21] MEDS ORDERED: ONDANSETRON 4 MG/2 ML VIAL IV PRN (00:54)
[2018-04-21] MEDS ORDERED: ACETAMINOPHEN 500 MG TAB PO PRN (00:54)
[2018-04-21] MEDS ORDERED: HYDRALAZINE HCL 20 MG/ML VIAL IV PRN (00:54)
[2018-04-21] MEDS: FUROSEMIDE 40 MG/4 ML VIAL IV SCH ×3 (01:43→18:44)
[2018-04-21] MEDS: NITROGLYCERIN 1 GM PKT TD SCH ×4 (06:02→23:42)
[2018-04-21 06:22] LABS: Potassium 3.7 mmol/L (3.5-5.1)
[2018-04-21 06:25] LABS: Absolute Lymphocytes (CBC) 0.6 K/uL (0.7-4.9); Absolute Monocytes 0.2 K/uL (0.1-1.3); Absolute Neutrophil 5.8 K/uL (1.8-8.0); Basophils % 0.1 % (0-1.3); Hematocrit 31.8 % (39.6-49.0); Lymphocytes % 8.5 % (15.3-44.8); MPV 9.3 fL (7.6-11.3); Monocytes % 3.3 % (3.3-12.3); RBC Red Blood Cell Count 4.92 M/uL (4.33-5.43)
[2018-04-21] MEDS ORDERED: POTASSIUM 25 MEQ EFFERV TAB PO ONE (06:27)
--- NOTE | 2018-04-21 08:15 | RAD REPORT ---
EXAM DESCRIPTION: RAD - Chest Single View - 04/20/2018 10:37 pm CLINICAL HISTORY: COPD Chest pain. COMPARISON: Chest Single View dated 04/17/2018; Chest Single View dated 03/29/2018; Chest Single View dated 03/25/2018; Chest Single View dated 03/20/2018 FINDINGS: Portable technique limits examination quality. Mild interstitial pulmonary edema suspected. The heart is moderately enlarged. No displaced fractures . IMPRESSION: Mild CHF versus volume overload.
--- NOTE | 2018-04-21 08:48 | EKG ---
Test Date: 2018-04-20 Test Time: 21:25:43 Corporate Planning Manager: TYE MEASUREMENT RESULTS: Intervals: Rate: 87 IN: 146 QRSD: 110 QT: 418 QTc: 502 [place]: P: 72 IN: 146 QRS: 83 T: 41 INTERPRETIVE STATEMENTS: Normal sinus rhythm Possible Left atrial enlargement Prolonged QT Abnormal ECG Compared to ECG 04/17/2018 15:59:53 Ventricular premature complex(es) no longer present Electronically Signed On 04-21-18 08:46:02 BALL THREAD MACHINE TENDER by Cyrus Porter
[2018-04-21] MEDS: ENOXAPARIN 40 MG/0.4 ML SQ SCH (09:37)
[2018-04-21] MEDS: ASPIRIN EC 81 MG TAB PO SCH (09:38)
--- NOTE | 2018-04-21 09:46 | P.DS ---
Admission Date: 04/21/18 Discharge Date: 04/21/18 Primary Care Provider: None Disposition: ROUTINE DISCHARGE Discharge Condition: GOOD Reason for Admission: flash pulmonary edema Consultations: None Procedures: CXR: COMPARISON: Chest Single View dated 04/17/2018; Chest Single View dated 2018; Chest Single View dated 03/25/2018; Chest Single View dated 03/20/2018 FINDINGS: Portable technique limits examination quality. Mild interstitial pulmonary edema suspected. The heart is moderately enlarged. No displaced fractures. IMPRESSION: Mild CHF versus volume overload. Follow up CXR: COMPARISON: Chest Single View dated 04/20/2018; Chest Single View dated 2018; Chest Single View dated 03/29/2018; Chest Single View dated 03/25/2018; Chest For Pe Angio dated 04/20/2018 FINDINGS: Mild improvement in the CHF/volume overload pattern. Small left pleural effusion persists. The heart is mildly enlarged in size. No displaced fractures. IMPRESSION: Mild improvement lung aeration since comparative study. Medical Problem List: Acute on chronic systolic CHF with flash pulmonary edema complicated with noncompliance of medication and follow up Hypertension COPD Tobacco abuse Elevated liver function Chronic renal disease, stage 3 Brief History of Present Illness: 67-year-old male presented to emergency room with shortness of breath. Patient with history of CHF, COPD, hypertension and noncompliance with follow up and medication. Patient found to have pulmonary edema on x-ray. Oxygen saturations above 90%. Patient was admitted for treatment. Hospital Course: Patient presented with acute on chronic systolic CHF with flash pulmonary edema. O2 saturations 90% upon admission. Patient slightly tachypneic. Patient responded well to IV Lasix. Patient admits noncompliance with medication and follow up. At discharge patient doing well. Patient off oxygen. Repeat x-ray shows improvement. Prior discharge sr. social media & mobile manager to help in possibly providing medications at discharge. At discharge he will continue with a 1500 cc per day fluid restriction. He will continue with Lasix 40 mg 1 pill twice daily. He is to monitor his weight daily. If his weight increases by more than 5 lb further adjustment in medication may be required. Recommend for patient to follow up with a PCP to establish care and continue to monitor his medications. Patient with hypertension. Medications restarted in the hospital. Patient will continue with metoprolol 25 mg 1 pill twice daily. Recommend to maintain blood pressures less 150/80. Further adjustment can be done by his PCP. Patient with underlying COPD. Patient may continue with Dulera 2 puffs twice daily and Pro air 2 puffs 3 times a day as needed for shortness of breath. Further adjustment can be done by his PCP. Tobacco cessation addressed in detail. Education provided. Patient with elevated liver function. This has been addressed in the past. Will obtain hepatitis panel and HIV screen. This can be followed up by his PCP. Patient with chronic renal disease, stage III. Overall stable. This can be monitored closely as an outpatient. Patient may benefit with nephrology consultation as an outpatient to further monitor. Recommend no further use of nonsteroidal anti-inflammatories will need to be renally dosed. Vital Signs/Physical Exam: Temp Pulse Resp BP Pulse Ox 98.2 F 93 H 17 169/79 H 91 04/21/18 08:00 04/21/18 09:37 04/21/18 08:00 04/21/18 09:37 04/21/18 08:00 General: Alert, In no apparent distress, Oriented x3, Cooperative HEENT: Atraumatic Neck: Supple Respiratory: Clear to auscultation bilaterally, Normal air movement Cardiovascular: Normal pulses, Regular rate/rhythm Gastrointestinal: Normal bowel sounds, Soft and benign, Non-distended, No tenderness, No masses, No rebound, No guarding Musculoskeletal: No erythema, No tenderness, No warmth Integumentary: No tenderness/swelling, No erythema, No warmth, No cyanosis Neurological: Normal speech, Normal strength at 5/5 x4 extr, Normal tone, Normal affect Laboratory Data at Discharge: WBC 6.6 K/uL (4.3-10.9) D 04/21/18 05:37 Hgb 9.6 g/dL (13.6-17.9) L 04/21/18 05:37 Hct 31.8 % (39.6-49.0) L 04/21/18 05:37 Plt Count 287 K/uL (152-406) 04/21/18 05:37 PT 15.6 SECONDS (9.5-12.5) H 04/20/18 21:25 INR 1.34 04/20/18 21:25 APTT 29.0 SECONDS (24.3-36.9) 04/20/18 21:25 Sodium 140 mmol/L (136-145) 04/21/18 05:31 Potassium 3.7 mmol/L (3.5-5.1) 04/21/18 05:31 BUN 26 mg/dL (7-18) H 04/21/18 05:31 Creatinine 1.52 mg/dL (0.55-1.3) H 04/21/18 05:31 Glucose 373 mg/dL (74-106) H 04/21/18 05:31 Magnesium 2.2 mg/dL (1.8-2.4) 04/20/18 21:25 Total Bilirubin 0.7 mg/dL (0.2-1.0) 04/20/18 21:25 AST 110 U/L (15-37) H 04/20/18 21:25 ALT 401 U/L (12-78) H* D 04/20/18 21:25 Alkaline Phosphatase 98 U/L (45-117) 04/20/18 21:25 Troponin I 0.05 ng/mL (0.0-0.045) H 04/21/18 01:09 Lipase 125 U/L (73-393) 04/20/18 21:25 Home Medications: Albuterol Inhaler [Ventolin Inhaler*] 2 puff IH Q6H PRN #1 hfa.aer.ad 04/21/18 Furosemide [Lasix] 40 mg PO BIDL #60 tab 04/21/18 Metoprolol Tartrate [Lopressor*] 25 mg PO BID 6AM 6PM #60 tab 04/21/18 Mometasone/Formoterol [Dulera 200 Mcg/5 Mcg Inhaler] 2 puff IH BID #1 inhaler New Medications: Albuterol Inhaler [Ventolin Inhaler*] 2 puff IH Q6H PRN #1 hfa.aer.ad PRN Reason: Shortness Of Breath Furosemide [Lasix] 40 mg PO BIDL #60 tab Metoprolol Tartrate [Lopressor*] 25 mg PO BID 6AM 6PM #60 tab Mometasone/Formoterol [Dulera 200 Mcg/5 Mcg Inhaler] 2 puff IH BID #1 inhaler Patient Discharge Instructions: 1. Patient will need to establish care with a PCP to address his medications and current conditions. 2. Patient presented with acute on chronic systolic CHF with flash pulmonary edema. O2 saturations 90 % upon admission. Patient slightly tachypneic. Patient responded well to IV Lasix. Patient admits noncompliance with medication and follow up. At discharge patient doing well. Patient off oxygen. Repeat x-ray shows improvement. Prior to discharge sr. social media & mobile manager to help in possibly providing medications at discharge. At discharge he will continue with a 1500 cc per day fluid restriction. He will continue with Lasix 40 mg 1 pill twice daily. He is to monitor his weight daily. If his weight increases by more than 5 lb further adjustment in medication may be required. Recommend for patient to follow up with a PCP to establish care and continue to monitor his medications. 3. Patient with hypertension. Medications restarted in the hospital. Patient will continue with metoprolol 25 mg 1 pill twice daily. Recommend to maintain blood pressures less 150/80. Further adjustment can be done by his PCP. 4. Patient with underlying COPD. Patient may continue with Dulera 2 puffs twice daily and Pro air 2 puffs 3 times a day as needed for shortness of breath. Further adjustment can be done by his PCP. 5. Tobacco cessation addressed in detail. Education provided. 6. Patient with elevated liver function. This has been addressed in the past. Will obtain hepatitis panel and HIV screen. This can be followed up by his PCP. 7. Patient with chronic renal disease, stage III. Overall stable. This can be monitored closely as an outpatient. Patient may benefit with nephrology consultation as an outpatient to further monitor. Recommend no further use of nonsteroidal anti- inflammatories will need to be renally dosed. Diet: AHA Activity: Fall precautions Time spent managing pt's care (in minutes): 55
[2018-04-21] MEDS ORDERED: ALBUTEROL INHALER 60 PUFF/8 GM IH PRN (10:32)
--- NOTE | 2018-04-21 11:29 | RAD REPORT ---
EXAM DESCRIPTION: RAD - Chest Pa And Lat (2 Views) - 04/21/2018 11:24 am CLINICAL HISTORY: follow up pulmonary edema Chest pain. COMPARISON: Chest Single View dated 04/20/2018; Chest Single View dated 04/17/2018; Chest Single View dated 03/29/2018; Chest Single View dated 03/25/2018; Chest For Pe Angio dated 04/20/2018 FINDINGS: Mild improvement in the CHF/volume overload pattern. Small left pleural effusion persists. The heart is mildly enlarged in size. No displaced fractures. IMPRESSION: Mild improvement lung aeration since comparative study.
--- NOTE | 2018-04-21 13:39 | RAD REPORT ---
EXAM DESCRIPTION: Chest For Pe Angio CLINICAL HISTORY: 67 years Male, CONGESTION COMPARISON: None. TECHNIQUE: 3.0 mm axial images of the thorax were obtained along with coronal and sagittal reformatted images. This exam was performed according to our departmental dose-optimization program, which includes autom ated exposure control, adjustment of the mA and/or kV according to patient size and/or less of iterat angella reconstruction technique. FINDINGS: Lung means: There is moderately severe centrilobular emphysematous lung disease in the upper lobes bilaterally. Mediastinal structures: There is moderately severe cardiomegaly. There is extensive atherosclerotic disease about the thoracic aorta and coronary arteries. There is no adenopathy. There is no pericardial effusion. Pulmonary arteries: No evidence of pulmonary embolus. Pleural space: Moderate size left pleural effusion which demonstrates evidence of probable lobulation. There is a sm all right pleural effusion. Axillae: No adenopathy. Upper abdomen: No acute abnormalities. Bony structures: No suspicious lesions. IMPRESSION: 1. No evidence pulmonary embolus. 2. Moderate-sized left pleural effusion which may be loculated. 3. Moderate severe cardiomegaly. 4. Extensive atherosclerotic disease. 5. Emphysematous lung disease. Electronically signed by Sam Huang MD 04/20/2018 10:45 PM BARN WORKER Due to temporary technical issues with the PACS/Fluency reporting system, reports are being signed by the in house radiologist as a courtesy to ensure prompt reporting. The interpreting radiologist is f ully responsible for the content of the report.
[2018-04-21] MEDS: METOPROLOL TAR 25 MG TAB PO SCH (18:44)
[2018-04-21] MEDS ORDERED: ATORVASTATIN 40 MG TAB PO SCH (21:00)
[2018-04-21] MEDS: DULERA 200/5 (MOMETASONE/FORMOTEROL) INHALER IH SCH (21:23)
[2018-04-22 04:39] VITALS: BP 160/93; TEMP 97.9
[2018-04-22] MEDS: METOPROLOL TAR 25 MG TAB PO SCH (04:58)
[2018-04-22 05:00] VITALS: BMI 23.2
[2018-04-22] MEDS: NITROGLYCERIN 1 GM PKT TD SCH (05:11)
[2018-04-22 05:33] LABS: Urine Appearance CLEAR; Urine Bilirubin NEGATIVE (NEG); Urine Blood NEGATIVE (NEG); Urine Color YELLOW; Urine Glucose NEGATIVE (NEG); Urine Protein 1+ (NEG); Urine pH 5.5 (5.0-7.0)
[2018-04-22 05:40] LABS: Urine Microscopic Reflex ORDER UMIC
[2018-04-22 06:14] LABS: Urine Bacteria <20 /HPF (NONE SEEN); Urine Culture Reflex Order NOT NEEDED; Urine RBC NONE SEEN /HPF (NONE SEEN)
[2018-04-22 06:28] LABS: Absolute Lymphocytes (CBC) 2.8 K/uL (0.7-4.9); Absolute Monocytes 1.4 K/uL (0.1-1.3); Absolute Neutrophil 14.6 K/uL (1.8-8.0); Basophils % 0.2 % (0-1.3); Eosinophils % 1.3 % (0-4.4); Lymphocytes % 14.5 % (15.3-44.8); MPV 9.1 fL (7.6-11.3); Monocytes % 7.6 % (3.3-12.3); RBC Red Blood Cell Count 4.99 M/uL (4.33-5.43)
[2018-04-22 06:30] VITALS: O2SAT 91
[2018-04-22 06:37] LABS: Potassium 4.2 mmol/L (3.5-5.1)
[2018-04-22] MEDS: ASPIRIN EC 81 MG TAB PO SCH (08:21)
[2018-04-22] MEDS: ENOXAPARIN 40 MG/0.4 ML SQ SCH (08:21)
[2018-04-22] MEDS: DULERA 200/5 (MOMETASONE/FORMOTEROL) INHALER IH SCH (09:00)
[2018-04-22] MEDS ORDERED: FUROSEMIDE 40 MG TABLET PO SCH (09:00)
[2018-04-23 17:23] LABS: HIV AG/AB 4TH GEN Non-reactive (Non-reactive)
[2018-04-24 13:41] LABS: HBsAG Nonreactive (Nonreactive); Hepatitis A IgM Antibody Nonreactive
== END 2018-04-22 11:04 | disposition home or self-care (01) ==
LOC: ER 20:51 → 2ND 04-21 00:46
PROVIDERS: ADMIT Internal Medicine; ATTEND Internal Medicine
DX: I13.0 Hypertensive heart and chronic kidney disease with heart failure and stage 1 through stage 4 chronic kidney disease, or unspecified chronic kidney disease (principal); I50.23 Acute on chronic systolic (congestive) heart failure; N18.3 Chronic kidney disease, stage 3 (moderate); J44.9 Chronic obstructive pulmonary disease, unspecified; F17.210 Nicotine dependence, cigarettes, uncomplicated; R94.5 Abnormal results of liver function studies; Z91.14 Patient's other noncompliance with medication regimen
CPT/HCPCS: 36415 ×2; 71045; 71046; 71275; 80048 ×3; 80074; 80076; 82550; 82553; 83690; 83735; 83880; 84484 ×4; 85025 ×3; 85379; 85610; 85730; 87040 ×2; 87389; 93005; 94760 ×3; 96365; 96366; 96375; 99285; G0378; G0379; J0360; J1650 ×2; J1940 ×4; J2930; Q9967; 81003; 81015; J7606

== ENCOUNTER 2018-04-25 21:33 | Observation (INO) | payer OTHER ==
--- OUTSIDE RECORDS SUMMARY | 2018-04-25 21:35 | XMS REPORT ---
:1950 [facility] Address [address] [place] [address] Care Team Providers Name Role Phone Unavailable [...]
[2018-04-25] MEDS ORDERED: LEVALBUTEROL 1.25 MG/3 ML NEB ONE (21:55)
[2018-04-25] MEDS ORDERED: METHYLPREDNISOLONE 125 MG INJ ONE (22:03)
[2018-04-25 22:15] LABS: Absolute Monocytes 1.5 K/uL (0.1-1.3); Absolute Neutrophil 3.9 K/uL (1.8-8.0); Basophils % 0.7 % (0-1.3); Eosinophils % 6.1 % (0-4.4); Hematocrit 32.5 % (39.6-49.0); Lymphocytes % 33.3 % (15.3-44.8); Monocytes % 16.3 % (3.3-12.3); RBC Red Blood Cell Count 5.06 M/uL (4.33-5.43)
[2018-04-25 22:36] LABS: Potassium 3.9 mmol/L (3.5-5.1); Troponin (Emerg Dept Use Only) 0.07 ng/mL (0.0-0.045)
[2018-04-25] MEDS ORDERED: cloNIDine HCl 0.1 MG TAB ONE (22:59)
[2018-04-25 23:14] LABS: Blood Morphology Comment NOTED (NOT SEEN); Hypochromasia 1+; Platelet Estimate ADEQ; Polychromasia SLIGHT; Urine White Blood Cell Casts OK
--- NOTE | 2018-04-26 00:36 | ER ---
Nurse's Notes [facility] Name: Mark Terrell Age: 67 yrs Sex: Male : 1950 Arrival Date: 04/25/2018 Time: 21:37 Bed 30 Private MD: Diagnosis: Dyspnea, unspecified;Pulmonary edema Presentation: 04/25 21:37 Presenting complaint: EMS states: Pt has had SOB for the last two hours, reports being la1 admitted about a week ago for "fluid on his lungs". Transition of care: patient was not received from another setting of care. Onset of symptoms was April 25, 2018. Risk Assessment: Do you want to hurt yourself or someone else? Patient reports no desire to harm self or others. Initial Sepsis Screen: Does the patient meet any 2 criteria? No. Patient's initial sepsis screen is negative. Does the patient have a suspected source of infection? No. Patient's initial sepsis screen is negative. Care prior to arrival: Medication(s) given: Albuterol Neb x 1, Atrovent Neb x 1. 21:37 Method Of Arrival: EMS: [facility] la1 21:37 Acuity: ARIEL 3 la1 Historical: - Allergies: 21:39 Benadryl; la1 - PMHx: 21:39 Aneurysm; BRAIN; Atrial Fib; CHF; COPD; Cancer; PROSTATE; Hypertension; Prostate Cancer;la1 - Immunization history:: Adult Immunizations up to date. - Social history:: Smoking status: Patient uses tobacco products, smokes one pack cigarettes per day. - Ebola Screening: : No symptoms or risks identified at this time. - Family history:: not pertinent. - Hospitalizations: : No recent hospitalization is reported. Screenin:25 Abuse screen: Denies threats or abuse. Denies injuries from another. Nutritional la1 screening: No deficits noted. Tuberculosis screening: No symptoms or risk factors identified. Fall Risk None identified. Assessment: 22:24 General: Appears uncomfortable, Behavior is calm, cooperative. Pain: Denies pain. la1 Neuro: Level of Consciousness is awake, alert, obeys commands, Oriented to person, place, time, situation. Cardiovascular: Capillary refill < 3 seconds. Respiratory: Breath sounds with wheezes bilaterally. GI: No signs and/or symptoms were reported involving the gastrointestinal system. : No signs and/or symptoms were reported regarding the genitourinary system. EENT: No signs and/or symptoms were reported regarding the EENT system. Derm: Skin is intact. Musculoskeletal: No signs and/or symptoms reported regarding the musculoskeletal system. 04/26 00:41 Reassessment: Patient appears in no apparent distress at this time. Patient and/or rv family updated on plan of care and expected duration. Pain level reassessed. Patient is alert, oriented x 3, equal unlabored respirations, skin warm/dry/pink. 01:21 Reassessment: Patient appears in no apparent distress at this time. Patient and/or rv family updated on plan of care and expected duration. Pain level reassessed. Patient is alert, oriented x 3, equal unlabored respirations, skin warm/dry/pink. Vital Signs: 04/25 21:39 BP 190 / 118; Pulse 84; Resp 18; Pulse Ox 98% on R/A; la1 22:30 BP 208 / 121; Pulse 94; Resp 20 S; Pulse Ox 96% on R/A; rv 23:02 BP 194 / 119; Pulse 94; Resp 18 S; Pulse Ox 96% on R/A; rv 23:30 BP 177 / 131; Pulse 94; Resp 19 S; Pulse Ox 95% on R/A; rv 04/26 00:00 BP 135 / 77; Pulse 85; Resp 18 S; Pulse Ox 91% on R/A; rv 00:30 BP 146 / 85; Pulse 84; Resp 18 S; Pulse Ox 95% on R/A; rv 01:00 BP 161 / 79; Pulse 83; Resp 17; Pulse Ox 95% on R/A; rv ED Course: 04/25 21:37 Patient arrived in ED. ds1 21:38 Triage completed. la1 21:39 Arm band placed on left wrist. la1 21:40 Ryan Vasquez MD is Attending Physician. rn 21:45 Inserted saline lock: 18 gauge in right forearm, using aseptic technique. rv 22:24 Flu Sent. la1 22:25 Patient has correct armband on for positive identification. Bed in low position. Call la1 light in reach. Side rails up X 1. electronic device monitor on. Pulse ox on. NIBP on. 04/26 00:34 Whit Fuentes MD is Hospitalizing Provider. rn 02:43 No provider procedures requiring assistance completed. Patient admitted, IV remains in rv place. intact. Administered Medications: 04/25 21:35 Drug: Xopenex (3) 1.25 mg Route: Inhalation; la1 21:45 Drug: SOLU-Medrol 125 mg Route: IVP; Site: right forearm; la1 22:50 Drug: cloNIDine 0.2 mg Route: PO; rv 04/26 00:06 Follow up: Response: Blood sugar is lowered la1 00:33 Drug: Lasix 40 mg Route: IVP; Site: right forearm; rv 01:57 Follow up: Response: No adverse reaction rv 00:39 Drug: Nitro-Bid Ointment 2 % 1 inches Route: Transdermal; Site: anterior chest wall; rv 01:57 Follow up: Response: Marked relief of symptoms rv Output: 01:21 Urine: 1000ml; Total: 1000ml. rv 01:57 Urine: 850ml (Voided); Total: 1850ml. rv 02:42 Urine: 600ml (Voided); Total: 2450ml. rv Outcome: 00:35 Decision to Hospitalize by Provider. rn 02:43 Admitted to Med/surg accompanied by tech, via wheelchair, room 217, with chart, Report rv called to JOSE MARIA METZ 02:43 Condition: good 02:43 Instructed on the need for admit, Demonstrated understanding of instructions. 03:02 Patient left the ED. Signatures: Armida Hyde RN LASHAY Adrienne Augustine ds1 Ryan Vasquez MD MD rn Attema, Lee, RN RN laAndrew Luther RN RN rv
--- NOTE | 2018-04-26 00:37 | EDPHYS ---
Physician Documentation [facility] Name: Mark Terrell Age: 67 yrs Sex: Male : 1950 Arrival Date: 04/25/2018 Time: 21:37 Bed 30 Private MD: ED Physician Ryan Vasquez HPI: 04/25 22:44 This 67 yrs old Male presents to ER via EMS with complaints of Shortness Of rn Breath. 22:44 The patient has shortness of breath at rest, with light activity. Onset: The rn symptoms/episode began/occurred 1 hour(s) ago. Duration: The symptoms are intermittent. The patient's shortness of breath is aggravated by nothing, is alleviated by nothing. Severity of symptoms: At their worst the symptoms were mild in the emergency department the symptoms are unchanged. The patient has experienced similar episodes in the past. The patient has not recently seen a physician. Historical: - Allergies: 21:39 Benadryl; la1 - PMHx: 21:39 Aneurysm; BRAIN; Atrial Fib; CHF; COPD; Cancer; PROSTATE; Hypertension; Prostate Cancer;la1 - Immunization history:: Adult Immunizations up to date. - Social history:: Smoking status: Patient uses tobacco products, smokes one pack cigarettes per day. - Ebola Screening: : No symptoms or risks identified at this time. - Family history:: not pertinent. - Hospitalizations: : No recent hospitalization is reported. ROS: 22:44 Constitutional: Negative for fever, chills, and weight loss, Eyes: Negative for injury, rn pain, redness, and discharge, Neck: Negative for injury, pain, and swelling, Cardiovascular: Negative for chest pain, palpitations, and edema, Respiratory: + sob and cough Abdomen/GI: Negative for abdominal pain, nausea, vomiting, diarrhea, and constipation, MS/Extremity: Negative for injury and deformity, Skin: Negative for injury, rash, and discoloration, Neuro: Negative for headache, weakness, numbness, tingling, and seizure. Exam: 22:44 Constitutional: This is a well developed, well nourished patient who is awake, alert, rn and in no acute distress. Head/Face: Normocephalic, atraumatic. Eyes: Pupils equal round and reactive to light, extra-ocular motions intact. Lids and lashes normal. Conjunctiva and sclera are non-icteric and not injected. Cornea within normal limits. Periorbital areas with no swelling, redness, or edema. ENT: Nares patent. No nasal discharge, no septal abnormalities noted. Tympanic membranes are normal and external auditory canals are clear. Oropharynx with no redness, swelling, or masses, exudates, or evidence of obstruction, uvula midline. Mucous membranes moist. Cardiovascular: Regular rate and rhythm with a normal S1 and S2. No gallops, murmurs, or rubs. Normal PMI, no JVD. No pulse deficits. Respiratory: Faint exp wheezing, no retractions Abdomen/GI: Soft, non-tender MS/ Extremity: Pulses equal, no cyanosis. Neurovascular intact. Full, normal range of motion. Equal circumference. Neuro: Awake and alert, GCS 15, oriented to person, place, time, and situation. Cranial nerves II-XII grossly intact. Motor strength 5/5 in all extremities. Sensory grossly intact. Cerebellar exam normal. Normal gait. Vital Signs: 21:39 BP 190 / 118; Pulse 84; Resp 18; Pulse Ox 98% on R/A; la1 22:30 BP 208 / 121; Pulse 94; Resp 20 S; Pulse Ox 96% on R/A; rv 23:02 BP 194 / 119; Pulse 94; Resp 18 S; Pulse Ox 96% on R/A; rv 23:30 BP 177 / 131; Pulse 94; Resp 19 S; Pulse Ox 95% on R/A; rv 04/26 00:00 BP 135 / 77; Pulse 85; Resp 18 S; Pulse Ox 91% on R/A; rv 00:30 BP 146 / 85; Pulse 84; Resp 18 S; Pulse Ox 95% on R/A; rv 01:00 BP 161 / 79; Pulse 83; Resp 17; Pulse Ox 95% on R/A; rv MDM: 04/25 21:40 Patient medically screened. rn 04/26 00:32 Differential diagnosis: CHF exacerbation, Chronic Obstructive Pulmonary Disease rn Myocardial Infarction. Data reviewed: vital signs, nurses notes, lab test result(s), EKG, radiologic studies, plain films, and as a result, I will admit patient. Counseling: I had a detailed discussion with the patient and/or guardian regarding: the historical points, exam findings, and any diagnostic results supporting the discharge/admit diagnosis, lab results, radiology results, the need for further work-up and treatment in the hospital. Admission orders: after a detailed discussion of the patient's condition and case, the admit orders are written by me. ED course: Pt with elevated BNP, troponin, + pulmonary edema on CXR, patient still reports dyspnea, is stable, will obs to Dr. Aden for further diuresis and management.. 04/25 21:44 Order name: Blood Culture Adult (2) rn 04/25 21:44 Order name: BMP rn 04/25 21:44 Order name: CBC with Diff rn 04/25 21:44 Order name: NT PRO-BNP rn 04/25 21:44 Order name: Troponin (emerg Dept Use Only) rn 04/25 21:44 Order name: Procalcitonin rn 04/25 21:44 Order name: Flu rn 04/25 22:27 Order name: CBC with Automated Diff; Complete Time: 00:24 EDMS 04/25 22:36 Order name: Basic Metabolic Panel; Complete Time: 00:24 EDWY 04/25 22:36 Order name: Troponin (Emerg Dept Use Only); Complete Time: 00:24 EDMS 04/25 22:36 Order name: NT PRO-BNP; Complete Time: 00:24 EDMS 04/25 22:51 Order name: Influenza Screen (A ; Complete Time: 00:24 EDMS 04/25 22:56 Order name: Procalcitonin; Complete Time: 00:24 EDMS 04/25 23:14 Order name: CBC Smear Scan; Complete Time: 00:24 EDWY 04/25 21:44 Order name: IV Start; Complete Time: 22:24 rn 04/25 21:44 Order name: XRAY CXR (1 view) rn 04/25 21:44 Order name: EKG; Complete Time: 21:45 rn 04/25 21:44 Order name: Cardiac monitoring; Complete Time: 22: rn 04/25 21:44 Order name: EKG - Nurse/Tech; Complete Time: 22: rn 04/25 21:44 Order name: Labs collected and sent; Complete Time: 22: rn 04/25 21:44 Order name: O2 Per Protocol; Complete Time: 22: rn 04/25 21:44 Order name: O2 Sat Monitoring; Complete Time: 22:24 rn 04/26 01:09 Order name: Urine Dipstick--Ancillary (enter results) fc 04/26 01:13 Order name: Urine Dipstick-Ancillary EDMS Administered Medications: 04/25 21:35 Drug: Xopenex (3) 1.25 mg Route: Inhalation; la1 21:45 Drug: SOLU-Medrol 125 mg Route: IVP; Site: right forearm; la1 22:50 Drug: cloNIDine 0.2 mg Route: PO; rv 04/26 00:06 Follow up: Response: Blood sugar is lowered la1 00:33 Drug: Lasix 40 mg Route: IVP; Site: right forearm; rv 01:57 Follow up: Response: No adverse reaction rv 00:39 Drug: Nitro-Bid Ointment 2 % 1 inches Route: Transdermal; Site: anterior chest wall; rv 01:57 Follow up: Response: Marked relief of symptoms rv Disposition: 04/26/18 00:35 Hospitalization ordered by Whit Fuentes for Observation. Preliminary diagnosis are Dyspnea, unspecified, Pulmonary edema. - Bed requested for Telemetry/MedSurg (observation). - Status is Observation. fc - Condition is Stable. - Problem is new. - Symptoms have improved. UTI on Admission? No Signatures: Dispatcher [employer] EDMS Armida Hyde RN RN fc Ryan Vasquez MD MD rn Attema, Lee, RN RN la1 Andrew Souza RN RN rv Corrections: (The following items were deleted from the chart) 02:35 00:35 Hospitalization Ordered by Whit Fuentes MD for Observation. Preliminary fc diagnosis is Dyspnea, unspecified; Pulmonary edema. Bed requested for Telemetry/MedSurg (observation). Status is Observation. Condition is Stable. Problem is new. Symptoms have improved. UTI on Admission? No. rn 03:02 02:35 04/26/2018 00:35 Hospitalization Ordered by Whit Fuentes MD for Observation. fc Preliminary diagnosis is Dyspnea, unspecified; Pulmonary edema. Bed requested for Telemetry/MedSurg (observation). Status is Observation. Condition is Stable. Problem is new. Symptoms have improved. UTI on Admission? No. fc
[2018-04-26] MEDS ORDERED: FUROSEMIDE 40 MG/4 ML VIAL ONE (00:40)
[2018-04-26] MEDS ORDERED: NITROGLYCERIN 1 GM PKT TD ONE (00:40)
[2018-04-26 01:13] LABS: Urine Blood NEGATIVE (NEG); Urine Glucose NEGATIVE (NEG); Urine Protein 2+ (NEG)
[2018-04-26] MEDS ORDERED: ALBUTEROL 2.5 MG/3 ML NEB SOL NEB PRN (01:34)
[2018-04-26] MEDS ORDERED: IPRATROPIUM BROM 0.5MG/2.5ML NEB PRN (01:34)
[2018-04-26] MEDS ORDERED: ONDANSETRON 4 MG/2 ML VIAL IV PRN (01:34)
--- NOTE | 2018-04-26 01:44 | P.HP ---
Certification for Inpatient Patient admitted to: Observation With expected LOS: <2 Midnights Practitioner: I am a practitioner with admitting privileges, knowledge of patient current condition, hospital course, and medical plan of care. Services: Services provided to patient in accordance with Admission requirements found in Title 42 Section 412.3 of the Code of Federal Regulations Patient History Date of Service: 04/26/18 Reason for admission: flash pulmonary edema History of Present Illness: Mr Terrell is a 67 years old male with history of of chronic combined systolic and diastolic CHF, HTN, COPD, medication non-compliant, multiple admissions for CHF exacerbation, at this time came to ED complaining of SOB, started 2 hours prior to arrive. He denieed any chest pain. His BP was elevated 190/118, as use to, consistent with flash pulmonary edema. CXR shows bilateral infiltrate ( similar to previous CXR) consistent with chronic CHF. No history of fever or chills. No nausea or vomiting. Lab work remarkable for normal WBC count, elevated ProBNP and trop I. He had received medication to lower his BP and diuretics. Currently he feels better and is resting in his bed without stress. Allergies diphenhydramine HCl [From Benadryl] Adverse Reaction (Intermediate, Verified 21:41) Hives Home medications list reviewed: Yes Home Medications: Albuterol Inhaler [Ventolin Inhaler*] 2 puff IH Q6H PRN #1 hfa.aer.ad 04/21/18 Furosemide [Lasix] 40 mg PO BIDL #60 tab 04/21/18 Metoprolol Tartrate [Lopressor*] 25 mg PO BID 6AM 6PM #60 tab 04/21/18 Mometasone/Formoterol [Dulera 200 Mcg/5 Mcg Inhaler] 2 puff IH BID #1 inhaler Lisinopril 10 mg PO DAILY #30 tablet 04/22/18 - Past Medical/Surgical History Diabetic: No -: History of prostate cancer -: Hypertension -: History of brain aneurysm requiring surgery -: CHF, systolic dysfunction -: COPD -: Tobacco abuse -: hyperlipidemia -: Coronary disease, stents x3 to LAD/RCA(Feb 2016) -: anemia -: GERD -: anemia -: hyperlipidemia -: Prostate surgery -: Brain aneurysm surgery -: Toe surgery R. great toe/childhood -: Heart catheterization-3stents LAD/RCA Psychosocial/ Personal History: He is single, lives alone. He has no children. 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 - Family History Father -: Cancer Notes: brain cancer Mother -: Cancer Notes: pancreatic cancer Brother -: Cancer Notes: lung cancer - Social History Smoking Status: Current every day smoker Counseled patient to stop smoking for: less than 10 minutes Alcohol use: No CD- Drugs: No Caffeine use: Yes Place of Residence: Home ([facility]) Review of Systems 10-point ROS is otherwise unremarkable Physical Examination - Physical Exam General: Alert, In no apparent distress HEENT: Atraumatic, PERRLA, Mucous membr. moist/pink, EOMI, Sclerae nonicteric Neck: Supple, 2+ carotid pulse no bruit, No LAD, Without JVD or thyroid abnormality Respiratory: Diminished, Crackles/rales (bibasilar rales) Cardiovascular: Normal S1 S2, No gallops Gastrointestinal: Normal bowel sounds, No tenderness Musculoskeletal: No tenderness Integumentary: No rashes Neurological: Normal speech, Normal strength at 5/5 x4 extr, Normal tone, Normal affect Lymphatics: No axilla or inguinal lymphadenopathy - Studies Laboratory Data (last 24 hrs) 04/25/18 21:45: WBC 9.0 D, Hgb 9.7 L, Hct 32.5 L, Plt Count 233 D 04/25/18 21:45: Sodium 144, Potassium 3.9, BUN 23 H, Creatinine 1.30, Glucose 122 H Microbiology Data (last 24 hrs): 04/25/18 22:02 Nasopharnyx Influenza Type A Antigen Screen - Final 04/25/18 22:02 Nasopharnyx Influenza Type B Antigen Screen - Final Assessment and Plan - Problems (Diagnosis) (1) Flash pulmonary edema Onset Date: 07/19/16 Current Visit: No Status: Acute (2) COPD (chronic obstructive pulmonary disease) Onset Date: 03/21/15 Current Visit: No Status: Chronic Qualifiers: COPD type: unspecified COPD Qualified Code(s): J44.9 - Chronic obstructive pulmonary disease, unspecified (3) Noncompliance Onset Date: 03/18/16 Current Visit: No Status: Chronic (4) Tobacco abuse Onset Date: 02/05/16 Current Visit: No Status: Chronic (5) Acute on chronic combined systolic and diastolic CHF (congestive heart failure) Onset Date: 03/31/17 Current Visit: No Status: Resolved - Plan The patient will be admitted to the hospital due to flash pulmonary edema, once again due to medication noncompliance. Will continue with diuretics nitro paste. Will resume home medication after verification. - Advance Directives Does patient have a Living Will: No Does patient have a Durable POA for Healthcare: No - Code Status/Comfort Care Code Status Assessed: Yes Code Status: Full Code
[2018-04-26 03:38] VITALS: BMI 22.7
[2018-04-26 04:29] VITALS: BP 164/71; TEMP 98.2
[2018-04-26] MEDS ORDERED: NITROGLYCERIN 1 GM PKT TD SCH (06:00)
--- NOTE | 2018-04-26 06:17 | EKG ---
Test Date: 2018-04-25 Test Time: 21:42:11 [employer]: LMT MEASUREMENT RESULTS: Intervals: Rate: 82 VA: 144 QRSD: 116 QT: 430 QTc: 502 [place]: P: 80 VA: 144 QRS: 88 T: 36 INTERPRETIVE STATEMENTS: Sinus rhythm with occasional premature ventricular complexes Possible Left atrial enlargement Left ventricular hypertrophy with QRS widening Prolonged QT Abnormal ECG Compared to ECG 04/20/2018 21:25:43 Ventricular premature complex(es) now present Left ventricular hypertrophy now present Electronically Signed On 04-26-18 06:17:04 [employer] by Jitendra Willams
[2018-04-26 06:23] LABS: Magnesium 2.1 mg/dL (1.8-2.4); Potassium 3.8 mmol/L (3.5-5.1)
[2018-04-26 06:39] LABS: Absolute Lymphocytes (CBC) 0.7 K/uL (0.7-4.9); Absolute Monocytes 0.1 K/uL (0.1-1.3); Absolute Neutrophil 5.5 K/uL (1.8-8.0); Basophils % 0.1 % (0-1.3); Hematocrit 32.6 % (39.6-49.0); Lymphocytes % 11.6 % (15.3-44.8); Monocytes % 1.2 % (3.3-12.3)
[2018-04-26] MEDS ORDERED: ALBUTEROL INHALER 60 PUFF/8 GM IH PRN (08:47)
--- NOTE | 2018-04-26 08:56 | P.DS ---
Admission Date: 04/26/18 Discharge Date: 04/26/18 Primary Care Provider: None(Homeless) Disposition: ROUTINE DISCHARGE Discharge Condition: GOOD Reason for Admission: flash pulmonary edema Consultations: none Procedures: Medical problem list: Acute on chronic systolic CHF with flash pulmonary edema complicated with noncompliance of medication and follow up Hypertension COPD Chronic renal disease, stage III Tobacco abuse Brief History of Present Illness: 67-year-old male presented to the emergency room with shortness of breath. Patient with history of systolic CHF, COPD, hypertension and noncompliance with follow up and medication. Patient was recently hospitalized for acute on chronic systolic CHF. Patient was given IV Lasix. Patient was discharged. Since his discharge he reports that he has not been able to get his medication. He was given money to help with his medication but instead he used to to buy food. He came in with shortness of breath and was observed. Hospital Course: Patient presented with acute on chronic systolic CHF with flash pulmonary edema. Patient was tachypneic and shortness of breath. Patient was given diuretic treatment. Patient improved. Patient without the need for oxygen at discharge. Compliance with medication and follow up were addressed in detail. Patient understands. Patient without significant shortness of breath and appears to be at his baseline. At discharge he will continue with a 1500 cc per day fluid restriction and low-salt diet. He will continue with Lasix 40 mg 1 pill twice daily. He is to monitor his weight daily. If his weight increases by more than 5 lb, further adjustment in his Lasix may be required. Will check to see if patient can be given help to get his medications. Otherwise patient will follow up with a PCP to establish care and monitor his meds. Patient with hypertension. Medication restarted. Patient will continue with metoprolol 25 mg 1 pill twice daily. Recommended maintain blood pressures less 150/80. Further adjustment can be done by his PCP. Patient with chronic renal disease, stage III. This remained stable. Recommend no further use of nonsteroidal anti-inflammatories. Future medications will need to be renally dosed. Recommend to recheck lab-BMP in 2-4 weeks to monitor his progress. Patient may follow up with nephrology as an outpatient to further monitor. Patient with underlying COPD. Patient will continue with Dulera 2 puffs twice daily and Pro air 2 puffs 3 times a day as needed for shortness of breath. Patient may follow up with his PCP to further evaluate. Tobacco cessation addressed in detail. Education provided. Vital Signs/Physical Exam: Temp Pulse Resp BP Pulse Ox 98.2 F 75 20 164/71 H 94 04/26/18 04:00 04/26/18 07:42 04/26/18 04:00 04/26/18 07:42 04/26/18 04:00 General: Alert, In no apparent distress, Oriented x3, Cooperative HEENT: Atraumatic Neck: Supple Respiratory: Clear to auscultation bilaterally, Normal air movement Cardiovascular: Normal pulses, Regular rate/rhythm Gastrointestinal: Normal bowel sounds, Soft and benign, Non-distended, No tenderness, No masses, No rebound, No guarding Musculoskeletal: No erythema, No tenderness, No warmth Integumentary: No tenderness/swelling, No erythema, No warmth, No cyanosis Neurological: Normal speech, Normal strength at 5/5 x4 extr, Normal tone, Normal affect Laboratory Data at Discharge: WBC 6.3 K/uL (4.3-10.9) D 04/26/18 05:37 Hgb 9.7 g/dL (13.6-17.9) L 04/26/18 05:37 Hct 32.6 % (39.6-49.0) L 04/26/18 05:37 Plt Count 214 K/uL (152-406) 04/26/18 05:37 Sodium 143 mmol/L (136-145) 04/26/18 05:37 Potassium 3.8 mmol/L (3.5-5.1) 04/26/18 05:37 BUN 22 mg/dL (7-18) H 04/26/18 05:37 Creatinine 1.45 mg/dL (0.55-1.3) H 04/26/18 05:37 Glucose 251 mg/dL (74-106) H 04/26/18 05:37 Magnesium 2.1 mg/dL (1.8-2.4) 04/26/18 05:37 Troponin I 0.04 ng/mL (0.0-0.045) 04/26/18 05:37 Home Medications: Albuterol Inhaler [Ventolin Inhaler*] 2 puff IH TID PRN #1 hfa.aer.ad 04/26/18 Furosemide [Lasix*] 40 mg PO BIDL #60 tab 04/26/18 Metoprolol Tartrate [Lopressor*] 25 mg PO BID 6AM 6PM #60 tab 04/26/18 Mometasone/Formoterol [Dulera 200 Mcg/5 Mcg Inhaler] 2 puff IH BID #1 inhaler New Medications: Albuterol Inhaler [Ventolin Inhaler*] 2 puff IH TID PRN #1 hfa.aer.ad PRN Reason: Shortness Of Breath Furosemide [Lasix*] 40 mg PO BIDL #60 tab Metoprolol Tartrate [Lopressor*] 25 mg PO BID 6AM 6PM #60 tab Mometasone/Formoterol [Dulera 200 Mcg/5 Mcg Inhaler] 2 puff IH BID #1 inhaler Patient Discharge Instructions: 1. Patient will need to establish care with a PCP to follow up this hospitalization. 2. Patient presented with acute on chronic systolic CHF with flash pulmonary edema. Patient was tachypneic and shortness of breath. Patient was given diuretic treatment. Patient improved. Patient without the need for oxygen at discharge. Compliance with medication and follow up were addressed in detail. Patient understands. Patient without significant shortness of breath and appears to be at his baseline. At discharge he will continue with a 1500 cc per day fluid restriction and low- salt diet. He will continue with Lasix 40 mg 1 pill twice daily. He is to monitor his weight daily. If his weight increases by more than 5 lb, further adjustment in his Lasix may be required. Will check to see if patient can be given help to get his medications. Otherwise patient will follow up with a PCP to establish care and monitor his meds. 3. Patient with hypertension. Medication restarted. Patient will continue with metoprolol 25 mg 1 pill twice daily. Recommended maintain blood pressures less 150/80. Further adjustment can be done by his PCP. 4. Patient with chronic renal disease, stage III. This remained stable. Recommend no further use of nonsteroidal anti- inflammatories. Future medications will need to be renally dosed. Recommend to recheck lab-BMP in 2-4 weeks to monitor his progress. Patient may follow up with nephrology as an outpatient to further monitor. 5. Patient with underlying COPD. Patient will continue with Dulera 2 puffs twice daily and Pro air 2 puffs 3 times a day as needed for shortness of breath. Patient may follow up with his PCP to further evaluate. 6. Tobacco cessation addressed in detail. Education provided. Diet: AHA Activity: Fall precautions Time spent managing pt's care (in minutes): 55
[2018-04-26] MEDS ORDERED: FUROSEMIDE 40 MG TABLET PO SCH (09:00)
[2018-04-26] MEDS ORDERED: FUROSEMIDE 40 MG/4 ML VIAL IV SCH (09:00)
[2018-04-26] MEDS ORDERED: ENOXAPARIN 40 MG/0.4 ML SQ SCH (09:00)
[2018-04-26] MEDS ORDERED: DULERA 200/5 (MOMETASONE/FORMOTEROL) INHALER IH SCH (09:00)
[2018-04-26] MEDS ORDERED: POTASSIUM CL SA 10 MEQ TAB PO ONE (09:00)
[2018-04-26 09:16] VITALS: O2SAT 95
[2018-04-26] MEDS ORDERED: METOPROLOL TAR 25 MG TAB PO SCH (10:00)
--- NOTE | 2018-04-26 10:00 | RAD REPORT ---
EXAM DESCRIPTION: Neo Single View04/25/2018 10:06 pm CLINICAL HISTORY: Cough COMPARISON: April 21 FINDINGS: Mild to moderate bilateral pulmonary opacities unchanged. Heart remains enlarged. Small le ft pleural effusion IMPRESSION: No significant change in CHF
== END 2018-04-26 12:30 | disposition home or self-care (01) ==
LOC: ER 21:33 → ERHOLD 04-26 01:53 → 2ND 04-26 02:54
PROVIDERS: ADMIT Internal Medicine; ATTEND Internal Medicine
DX: I13.0 Hypertensive heart and chronic kidney disease with heart failure and stage 1 through stage 4 chronic kidney disease, or unspecified chronic kidney disease (principal); I50.23 Acute on chronic systolic (congestive) heart failure; N18.3 Chronic kidney disease, stage 3 (moderate); J44.9 Chronic obstructive pulmonary disease, unspecified; I25.10 Atherosclerotic heart disease of native coronary artery without angina pectoris; Z95.5 Presence of coronary angioplasty implant and graft; Z91.14 Patient's other noncompliance with medication regimen; Z85.46 Personal history of malignant neoplasm of prostate; F17.210 Nicotine dependence, cigarettes, uncomplicated
CPT/HCPCS: 93005; 87040 ×2; 85025 ×2; 80048 ×2; 36415; 83735; 81003; 84484 ×2; 84145; 83880; 87804 ×2; 71045; 94760; 96375; 96374; 99285; J1940 ×2; J1650; J2930; G0378 ×2

== ENCOUNTER 2018-05-05 10:41 | Emergency (ER) | payer OTHER ==
--- OUTSIDE RECORDS SUMMARY | 2018-05-05 10:43 | XMS REPORT ---
:1950 [facility] [address] [place] [address] Care Team Providers Name Role Phone Unavailable [...]
[2018-05-05] MEDS ORDERED: LEVALBUTEROL 1.25 MG/3 ML NEB ONE (11:23)
[2018-05-05] MEDS ORDERED: METHYLPREDNISOLONE 125 MG INJ ONE (11:23)
[2018-05-05 11:35] LABS: Absolute Lymphocytes (CBC) 2.3 K/uL (0.7-4.9); Absolute Monocytes 1.2 K/uL (0.1-1.3); Basophils % 0.9 % (0-1.3); Eosinophils % 1.1 % (0-4.4); Hematocrit 35.2 % (39.6-49.0); Lymphocytes % 21.3 % (15.3-44.8); MPV 9.2 fL (7.6-11.3); Monocytes % 11.3 % (3.3-12.3); RBC Red Blood Cell Count 5.55 M/uL (4.33-5.43)
--- NOTE | 2018-05-05 11:43 | RAD REPORT ---
EXAM DESCRIPTION: Neo Single View05/05/2018 11:35 am CLINICAL HISTORY: Shortness of breath COMPARISON: April 25 FINDINGS: Mild bilateral pulmonary opacities. The heart remains enlarged IMPRESSION: CHF
[2018-05-05 11:50] LABS: Potassium 4.1 mmol/L (3.5-5.1)
[2018-05-05] MEDS ORDERED: FUROSEMIDE 40 MG/4 ML VIAL ONE (12:12)
[2018-05-05 12:30] LABS: Anisocytosis 2+; Blood Morphology Comment NOTED (NOT SEEN); Hypochromasia 2+; Platelet Estimate ADEQ; Poikilocytosis 1+; Polychromasia 1+; Urine White Blood Cell Casts OK
--- NOTE | 2018-05-05 13:37 | ER ---
Nurse's Notes [facility] Name: Mark Terrell Age: 67 yrs Sex: Male : 1950 Arrival Date: 05/05/2018 Time: 10:43 Bed 13 Private MD: Diagnosis: Chronic obstructive pulmonary disease with (acute) exacerbation;Unspecified combined systolic (congestive) and diastolic (congestive) heart failure Presentation: 05/05 10:44 Presenting complaint: Patient states: shortness of breath since this morning. ss Transition of care: patient was not received from another setting of care. Onset of symptoms was May 05, 2018. Risk Assessment: Do you want to hurt yourself or someone else? Patient reports no desire to harm self or others. Initial Sepsis Screen: Does the patient meet any 2 criteria? RR > 20 per min. HR > 90 bpm. Does the patient have a suspected source of infection? No. Patient's initial sepsis screen is negative. Care prior to arrival: None. 10:44 Method Of Arrival: Ambulatory ss 10:44 Acuity: ARIEL 3 ss Triage Assessment: 10:46 Pain: Denies pain. rb1 Historical: - Allergies: 10:45 Benadryl; ss - PMHx: 10:45 Aneurysm; BRAIN; Atrial Fib; Cancer; PROSTATE; CHF; COPD; Hypertension; Prostate Cancer;ss - Immunization history:: Adult Immunizations up to date. - Social history:: Smoking status: Patient uses tobacco products, "I'm down to 5 cigarettes/ day". - Ebola Screening: : Patient denies exposure to infectious person Patient denies travel to an Ebola-affected area in the 21 days before illness onset. - Family history:: not pertinent. - Hospitalizations: : The patient was recently seen at [facility]. Screenin:46 Abuse screen: Denies threats or abuse. Nutritional screening: No deficits noted. rb1 Tuberculosis screening: No symptoms or risk factors identified. Fall Risk None identified. Assessment: 10:46 General: Appears unkempt, Behavior is calm, cooperative, Denies fever. Neuro: Level of rb1 Consciousness is awake, alert, obeys commands, Oriented to person, place, time, situation. Cardiovascular: Capillary refill < 3 seconds is brisk in bilateral fingers. Respiratory: Reports shortness of breath Airway is patent Respiratory effort is even, unlabored, Respiratory pattern is regular, symmetrical. GI: No signs and/or symptoms were reported involving the gastrointestinal system. : No signs and/or symptoms were reported regarding the genitourinary system. Derm: Skin is pink, warm \\T\\ dry. 10:46 Pain: Denies pain. rb1 11:45 Reassessment: Patient appears in no apparent distress at this time. No changes from rb1 previously documented assessment. 12:45 Reassessment: Patient appears in no apparent distress at this time. Patient and/or rb1 family updated on plan of care and expected duration. Pain level reassessed. Patient is alert, oriented x 3, equal unlabored respirations, skin warm/dry/pink. Gave the pt. a food tray. 13:30 Reassessment: Patient appears in no apparent distress at this time. No changes from rb1 previously documented assessment. 14:10 Reassessment: Patient appears in no apparent distress at this time. Patient and/or rb1 family updated on plan of care and expected duration. Pain level reassessed. Patient is alert, oriented x 3, equal unlabored respirations, skin warm/dry/pink. Vital Signs: 10:45 BP 167 / 109; Pulse 105; Resp 35; Temp 97.1(TE); Pulse Ox 96% on R/A; Weight 77.11 kg; ss Height 5 ft. 11 in. (180.34 cm); Pain 0/10; 11:45 BP 182 / 99; Pulse 96; Resp 19; Pulse Ox 100% on R/A; rb1 12:45 BP 184 / 106; Pulse 100; Resp 20; Pulse Ox 95% on R/A; Pain 0/10; rb1 13:45 BP 181 / 106; Pulse 95; Resp 19; Pulse Ox 98% on R/A; Pain 0/10; rb1 10:45 Body Mass Index 23.71 (77.11 kg, 180.34 cm) ED Course: 10:43 Patient arrived in ED. bd 10:43 Ryan Vasquez MD is Attending Physician. rn 10:45 Triage completed. ss 10:45 Arm band placed on right wrist. ss 10:53 Mireya Liz, LASHAY is Primary Nurse. rb1 11:00 Missed attempt(s): 22 gauge in right antecubital area. rb1 11:01 EKG done, by clinical technologist. reviewed by Ryan Vasquez MD. at1 11:05 Missed attempt(s): 22 gauge in right antecubital area. rb1 11:18 Initial lab(s) drawn, by nh, sent to lab. Inserted saline lock: 20 gauge in left [facility] antecubital area, using aseptic technique. Blood collected. 11:19 Patient has correct armband on for positive identification. Bed in low position. Call [facility] light in reach. Side rails up X 1. executive personal assistant on. Pulse ox on. NIBP on. 11:19 CBC with Diff Sent. mh5 11:19 Basic Metabolic Panel Sent. mh5 11:19 Flu Sent. 5 11:19 Procalcitonin Sent. mh5 11:35 XRAY Chest (1 view) In Process Unspecified. EDMS 14:12 No provider procedures requiring assistance completed. IV discontinued, intact, rb1 bleeding controlled, No redness/swelling at site. Pressure dressing applied. Administered Medications: 10:46 Drug: Xopenex (3) 1.25 mg Route: Inhalation; rb1 11:19 Drug: SOLU-Medrol 125 mg Route: IVP; Site: left antecubital; rb1 11:40 Follow up: Response: No adverse reaction rb1 12:06 Drug: Lasix 40 mg Route: IVP; Site: left antecubital; rb1 12:30 Follow up: Response: No adverse reaction rb1 Output: 12:45 Urine: 700ml (Voided); Total: 700ml. rb1 13:38 Urine: 750ml (Voided); Total: 1450ml. rb1 Outcome: 13:36 Discharge ordered by . rn 14:12 Discharged to home ambulatory. rb1 14:12 Condition: stable 14:12 Discharge instructions given to patient, Instructed on discharge instructions, follow up and referral plans. medication usage, Demonstrated understanding of instructions, follow-up care, medications, Prescriptions given X 2. 14:20 Patient left the ED. rb1 Signatures: Dispatcher [employer] EDMS Lila Becker Roman, MD MD rn Smirch, Shelby, RN RN Liane Bradley, blue line hanger EKG Tat1 Mireya Liz, RN RN rb1 Marisa Allison 5 Corrections: (The following items were deleted from the chart) 14:59 14:58 Patient left the ED. rb1 rb1
--- NOTE | 2018-05-05 13:37 | EDPHYS ---
Physician Documentation [facility] Name: Mark Terrell Age: 67 yrs Sex: Male : 1950 Arrival Date: 05/05/2018 Time: 10:43 Bed 13 Private MD: ED Physician Ryan Vasquez HPI: 05/05 10:45 This 67 yrs old Male presents to ER via Ambulatory with complaints of sob. rn 10:45 The patient has shortness of breath with light activity, during heavy activity. Onset: rn The symptoms/episode began/occurred this morning. Duration: The symptoms are intermittent. The patient's shortness of breath is aggravated by exertion. Severity of symptoms: At their worst the symptoms were mild in the emergency department the symptoms are unchanged. The patient has experienced similar episodes in the past. The patient has not recently seen a physician. REports sob that began this morning, no fever, + worse with exertion, reports was riding bicycle to [facility], stopped here because got more winded, no chest pain.. Historical: - Allergies: 10:45 Benadryl; ss - PMHx: 10:45 Aneurysm; BRAIN; Atrial Fib; Cancer; PROSTATE; CHF; COPD; Hypertension; Prostate Cancer;ss - Immunization history:: Adult Immunizations up to date. - Social history:: Smoking status: Patient uses tobacco products, "I'm down to 5 cigarettes/ day". - Ebola Screening: : Patient denies exposure to infectious person Patient denies travel to an Ebola-affected area in the 21 days before illness onset. - Family history:: not pertinent. - Hospitalizations: : The patient was recently seen at [facility]. ROS: 10:47 Constitutional: Negative for fever, chills, and weight loss, Eyes: Negative for injury, rn pain, redness, and discharge, Neck: Negative for injury, pain, and swelling, Cardiovascular: Negative for chest pain, palpitations Respiratory: + sob and cough Abdomen/GI: Negative for abdominal pain, nausea, vomiting, diarrhea, and constipation, MS/Extremity: Negative for injury and deformity, Skin: Negative for injury, rash, and discoloration, Neuro: + generalized weakness Exam: 10:47 Constitutional: This is a well developed, well nourished patient who is awake, alert, rn rode his bike here, + tachypnea Head/Face: Normocephalic, atraumatic. Eyes: Pupils equal round and reactive to light, extra-ocular motions intact. Cardiovascular: tachycardic, irregular, no murmur Respiratory: + mild tachypnea, no retractions, + mild bilateral wheezing noted Abdomen/GI: soft, non-tender Skin: warm, dry MS/ Extremity: Pulses equal, no cyanosis. Neuro: Awake and alert, GCS 15, oriented to person, place, time, and situation. Cranial nerves II-XII grossly intact. Motor strength 5/5 in all extremities. Sensory grossly intact. Cerebellar exam normal. Normal gait. Vital Signs: 10:45 BP 167 / 109; Pulse 105; Resp 35; Temp 97.1(TE); Pulse Ox 96% on R/A; Weight 77.11 kg; ss Height 5 ft. 11 in. (180.34 cm); Pain 0/10; 11:45 BP 182 / 99; Pulse 96; Resp 19; Pulse Ox 100% on R/A; rb1 12:45 BP 184 / 106; Pulse 100; Resp 20; Pulse Ox 95% on R/A; Pain 0/10; rb1 13:45 BP 181 / 106; Pulse 95; Resp 19; Pulse Ox 98% on R/A; Pain 0/10; rb1 10:45 Body Mass Index 23.71 (77.11 kg, 180.34 cm) ss MDM: 10:43 Patient medically screened. rn 13:35 Differential diagnosis: CHF exacerbation, Chronic Obstructive Pulmonary Disease rn pneumonia, Pneumothorax pulmonary edema. Data reviewed: vital signs, nurses notes, lab test result(s), radiologic studies, plain films, and as a result, I will discharge patient. Counseling: I had a detailed discussion with the patient and/or guardian regarding: the historical points, exam findings, and any diagnostic results supporting the discharge/admit diagnosis, lab results, radiology results, the need for outpatient follow up, to return to the emergency department if symptoms worsen or persist or if there are any questions or concerns that arise at home. Response to treatment: the patient's symptoms have markedly improved after treatment, and as a result, I will discharge patient. Special discussion: I discussed with the patient/guardian in detail that at this point there is no indication for admission to the hospital. It is understood, however, that if the symptoms persist or worsen the patient needs to return immediately for re-evaluation. ED course: Pt markedly improved, watching tv and laying flat comfortably. . 05/05 10:44 Order name: CBC with Diff; Complete Time: 12:31 rn 05/05 10:44 Order name: Basic Metabolic Panel; Complete Time: 12:23 rn 05/05 10:44 Order name: Procalcitonin; Complete Time: 12:23 rn 05/05 10:44 Order name: Flu; Complete Time: 11:37 rn 05/05 10:44 Order name: N-Terminal Pro-brain Natriuretic Peptide; Complete Time: 12:23 rn 05/05 11:37 Order name: CBC Smear Scan; Complete Time: 12:31 EDMS 05/05 10:44 Order name: IV Start; Complete Time: 11:19 rn 05/05 10:44 Order name: XRAY Chest (1 view); Complete Time: 11:45 rn 05/05 10:44 Order name: EKG; Complete Time: 10:45 rn 05/05 10:44 Order name: EKG - Nurse/Tech; Complete Time: 13:38 rn Administered Medications: 10:46 Drug: Xopenex (3) 1.25 mg Route: Inhalation; rb1 11:19 Drug: SOLU-Medrol 125 mg Route: IVP; Site: left antecubital; rb1 11:40 Follow up: Response: No adverse reaction rb1 12:06 Drug: Lasix 40 mg Route: IVP; Site: left antecubital; rb1 12:30 Follow up: Response: No adverse reaction rb1 Disposition: 05/05/18 13:36 Discharged to Home. Impression: Chronic obstructive pulmonary disease with (acute) exacerbation, Unspecified combined systolic (congestive) and diastolic (congestive) heart failure. - Condition is Stable. - Discharge Instructions: Heart Failure, Chronic Obstructive Pulmonary Disease Exacerbation. - Prescriptions for Prednisone 20 mg Oral Tablet - take 3 tablet by ORAL route once daily for 5 days; 15 tablet. Albuterol Sulfate 90 mcg/actuation - inhale 1-2 puff by INHALATION route every 4-6 hours; 1 Inhaler. - Medication Reconciliation Form, Thank You Letter, Antibiotic Education, Prescription Opioid Use form. - Follow up: Private Physician; When: As needed; Reason: Recheck today's complaints, Re-evaluation by your physician. - Problem is an acute exacerbation. - Symptoms have improved. Signatures: Dispatcher [employer] Ryan Augustine MD MD rn Smirch, Shelby, RN RN ss Mireya Liz RN RN rb1 Corrections: (The following items were deleted from the chart) 14:58 13:36 05/05/2018 13:36 Discharged to Home. Impression: Chronic obstructive pulmonary rb1 disease with (acute) exacerbation; Unspecified combined systolic (congestive) and diastolic (congestive) heart failure. Condition is Stable. Forms are Medication Reconciliation Form, Thank You Letter, Antibiotic Education, Prescription Opioid Use. Follow up: Private Physician; When: As needed; Reason: Recheck today's complaints, Re-evaluation by your physician. Problem is an acute exacerbation. Symptoms have improved. rn
[2018-05-05 15:33] VITALS: TEMP 97.1
[2018-05-05 15:36] VITALS: BP 181/106; O2SAT 98
--- NOTE | 2018-05-06 06:07 | EKG ---
Test Date: 2018-05-05 Test Time: 10:52:10 Certified Appliance Service Technician: AYSHA MEASUREMENT RESULTS: Intervals: Rate: 97 AL: 150 QRSD: 116 QT: 424 QTc: 538 [place]: P: 77 AL: 150 QRS: 109 T: 10 INTERPRETIVE STATEMENTS: Normal sinus rhythm Right atrial enlargement Rightward axis Left ventricular hypertrophy with QRS widening Cannot rule out Anterior infarct, age undetermined Prolonged QT Abnormal ECG Compared to ECG 04/25/2018 21:42:11 Right-axis deviation now present Myocardial infarct finding now present Ventricular premature complex(es) no longer present Electronically Signed On 05-06-18 06:04:37 FITNESS STUDIES TEACHER by Cyrus Porter
== END 2018-05-05 14:58 | disposition home or self-care (01) ==
LOC: ER 10:41
DX: J44.1 Chronic obstructive pulmonary disease with (acute) exacerbation (principal); I11.0 Hypertensive heart disease with heart failure; I50.42 Chronic combined systolic (congestive) and diastolic (congestive) heart failure; I48.91 Unspecified atrial fibrillation; C61 Malignant neoplasm of prostate; Z88.8 Allergy status to other drugs, medicaments and biological substances
CPT/HCPCS: 93005; 85025; 80048; 36415; 84145; 83880; 87804 ×2; 71045; 96375; 96374; 99285; J1940; J2930

== ENCOUNTER 2018-05-05 16:44 | Emergency (ER) | payer OTHER ==
--- OUTSIDE RECORDS SUMMARY | 2018-05-05 16:46 | XMS REPORT ---
:1950 [facility] [address] [place] [address] Care Team Providers Name Role Phone Unavailable [...]
[2018-05-05] MEDS ORDERED: FUROSEMIDE 40 MG/4 ML VIAL ONE (17:09)
[2018-05-05] MEDS ORDERED: cloNIDine HCl 0.1 MG TAB ONE (17:42)
[2018-05-05] MEDS ORDERED: LEVALBUTEROL 1.25 MG/3 ML NEB ONE (17:44)
--- NOTE | 2018-05-05 17:58 | ER ---
Nurse's Notes [facility] Name: Mark Terrell Age: 67 yrs Sex: Male : 1950 Arrival Date: 05/05/2018 Time: 16:46 Bed 17 Private MD: Diagnosis: Hypertension;Unspecified combined systolic (congestive) and diastolic (congestive) heart failure Presentation: 05/05 16:47 Presenting complaint: EMS states: Pt was at the [facility] for medication refill and was jl7 hypertensive and short of breath so they called us. His bicycle will be locked up in the front of the hospital. Transition of care: patient was received from another setting of care (ambulatory primary care physician practice), [facility]. Onset of symptoms was May 05, 2018. Risk Assessment: Do you want to hurt yourself or someone else? Patient reports no desire to harm self or others. Initial Sepsis Screen: Does the patient meet any 2 criteria? No. Patient's initial sepsis screen is negative. Does the patient have a suspected source of infection? No. Patient's initial sepsis screen is negative. Care prior to arrival: None. 16:47 Method Of Arrival: EMS: [facility] 7 16:47 Acuity: ARIEL 3 jl7 Triage Assessment: 16:51 General: Appears in no apparent distress. uncomfortable, Behavior is calm, cooperative. jl7 Pain: Denies pain. EENT: No signs and/or symptoms were reported regarding the EENT system. Neuro: Level of Consciousness is awake, alert, obeys commands. Cardiovascular: Patient's skin is warm and dry. Respiratory: Airway is patent Respiratory effort is even, unlabored, Respiratory pattern is regular, symmetrical. GI: No signs and/or symptoms were reported involving the gastrointestinal system. : No signs and/or symptoms were reported regarding the genitourinary system. Derm: Skin is pink, warm \T\ dry. Musculoskeletal: No signs and/or symptoms reported regarding the musculoskeletal system. Historical: - Allergies: 16:51 Benadryl; jl7 - PMHx: 16:51 Aneurysm; BRAIN; Atrial Fib; Cancer; PROSTATE; CHF; COPD; Hypertension; Prostate Cancer;jl7 - Immunization history:: Adult Immunizations up to date. - Social history:: Smoking status: Patient uses tobacco products, smokes one-half pack cigarettes per day. - Ebola Screening: : No symptoms or risks identified at this time. - Family history:: not pertinent. - Hospitalizations: : No recent hospitalization is reported. Screenin:53 Abuse screen: Denies threats or abuse. Denies injuries from another. Nutritional jl7 screening: No deficits noted. Tuberculosis screening: No symptoms or risk factors identified. Fall Risk None identified. Assessment: 16:53 General: See triage assessment. jl7 18:00 Reassessment: Patient appears in no apparent distress at this time. Patient and/or jl7 family updated on plan of care and expected duration. Pain level reassessed. Patient is alert, oriented x 3, equal unlabored respirations, skin warm/dry/pink. Patient states feeling better. Patient states symptoms have improved. Vital Signs: 16:51 BP 189 / 105; Pulse 92; Resp 18; Pulse Ox 96% on R/A; jl7 18:00 BP 180 / 95; Pulse 89; Resp 16 S; Pulse Ox 98% on R/A; jl7 ED Course: 16:46 Patient arrived in ED. ss 16:47 Yaneth Bell RN is Primary Nurse. jl7 16:49 Triage completed. jl7 16:51 Arm band placed on right wrist. jl7 16:52 Ryan Vasquez MD is Attending Physician. rn 16:53 Patient has correct armband on for positive identification. Bed in low position. Call jl7 light in reach. Side rails up X 1. engine monitor on. Pulse ox on. NIBP on. 17:00 EKG done, by office technologist. reviewed by Ryan Vasquez MD. 3 17:08 Inserted saline lock: 22 gauge in right hand, using aseptic technique. jl7 18:00 No provider procedures requiring assistance completed. jl7 18:15 IV discontinued, intact, bleeding controlled, No redness/swelling at site. Pressure jl7 dressing applied. Administered Medications: 17:08 Drug: Lasix 40 mg Route: IVP; Site: right hand; jl7 18:00 Follow up: Response: No adverse reaction jl7 17:38 Drug: cloNIDine 0.2 mg Route: PO; jl7 18:00 Follow up: Response: No adverse reaction jl7 17:38 Drug: Xopenex 1.25 mg Route: Inhalation; jl7 18:00 Follow up: Response: No adverse reaction jl7 Outcome: 17:57 Discharge ordered by . rn 18:15 Discharged to home ambulatory. jl7 18:15 Condition: stable 18:15 Discharge instructions given to patient, Instructed on discharge instructions, follow up and referral plans. Demonstrated understanding of instructions, follow-up care. 18:16 Patient left the ED. jl7 Signatures: Ryan Vasquez MD MD rn Smirch, Shelby, RN RN ss Leal, Jahala, RN RN jl7 Sharri Luna 3 Corrections: (The following items were deleted from the chart) 18:15 18:00 IV discontinued, intact, bleeding controlled, No redness/swelling at site. jl7 Pressure dressing applied, jl7
--- NOTE | 2018-05-05 17:58 | EDPHYS ---
Physician Documentation [facility] Name: Mark Terrell Age: 67 yrs Sex: Male : 1950 Arrival Date: 05/05/2018 Time: 16:46 Bed 17 Private MD: ED Physician Ryan Vasquez HPI: 05/05 17:27 This 67 yrs old Male presents to ER via EMS with complaints of High Blood rn Pressure. 17:27 The patient has elevated blood pressure and discovered this at a physician's office. rn Onset: The symptoms/episode began/occurred at an unknown time. Modifying factors: The symptoms are aggravated by discontinuation of meds. Severity of symptoms: At its worst the blood pressure was moderate, in the emergency department the blood pressure is unchanged. The patient has experienced similar episodes in the past. Historical: - Allergies: 16:51 Benadryl; jl7 - PMHx: 16:51 Aneurysm; BRAIN; Atrial Fib; Cancer; PROSTATE; CHF; COPD; Hypertension; Prostate Cancer;jl7 - Immunization history:: Adult Immunizations up to date. - Social history:: Smoking status: Patient uses tobacco products, smokes one-half pack cigarettes per day. - Ebola Screening: : No symptoms or risks identified at this time. - Family history:: not pertinent. - Hospitalizations: : No recent hospitalization is reported. ROS: 17:28 Constitutional: Negative for fever, chills, and weight loss, Eyes: Negative for injury, rn pain, redness, and discharge, Neck: Negative for injury, pain, and swelling, Cardiovascular: Negative for chest pain, palpitations Respiratory: + mild sob and cough Abdomen/GI: Negative for abdominal pain, nausea, vomiting, diarrhea, and constipation, MS/Extremity: Negative for injury and deformity, Skin: Negative for injury, rash, and discoloration, Neuro: Negative for weakness, numbness, tingling, and seizure. Exam: 17:28 Constitutional: This is a well developed, well nourished patient who is awake, alert, rn and in no acute distress. Head/Face: Normocephalic, atraumatic. ENT: dry MM Cardiovascular: Regular rate. No pulse deficits. Respiratory: Diminished breath sounds at bases, with intermittent and faint wheezing. No increased work of breathing, no retractions or nasal flaring. Abdomen/GI: Soft, non-tender, with normal bowel sounds. No distension or tympany. No guarding or rebound. No evidence of tenderness throughout. MS/ Extremity: Pulses equal, no cyanosis. Neurovascular intact. Full, normal range of motion. Equal circumference. Neuro: Awake and alert, GCS 15, oriented to person, place, time, and situation. Cranial nerves II-XII grossly intact. Motor strength 5/5 in all extremities. Sensory grossly intact. Vital Signs: 16:51 BP 189 / 105; Pulse 92; Resp 18; Pulse Ox 96% on R/A; jl7 18:00 BP 180 / 95; Pulse 89; Resp 16 S; Pulse Ox 98% on R/A; jl7 MDM: 16:52 Patient medically screened. rn 17:55 Differential diagnosis: hypertensive crisis, Malignant HTN. Data reviewed: vital signs, rn nurses notes, old medical records, and as a result, I will discharge patient. Counseling: I had a detailed discussion with the patient and/or guardian regarding: the historical points, exam findings, and any diagnostic results supporting the discharge/admit diagnosis, lab results, radiology results, the need for outpatient follow up, to return to the emergency department if symptoms worsen or persist or if there are any questions or concerns that arise at home. Special discussion: I discussed with the patient/guardian in detail that at this point there is no indication for admission to the hospital. It is understood, however, that if the symptoms persist or worsen the patient needs to return immediately for re-evaluation. Based on the history and exam findings, there is no indication for further emergent testing or inpatient evaluation. I discussed with the patient/guardian the need to see the primary care provider for further evaluation of the symptoms. ED course: Pt improved, another full urinal of fluid out, eating steak and potatoes, obviously not adhering to CHF diet, states doesn't know how else to get his meds, does not have money until Friday, spent his current money on rent, plans to go back to [place] and return if worsens again. No indication for admission at this point. Patient always hypertensive and has not been on his meds for some time. No focal neurological finding or complaint. . 17:58 Counseling: I had a detailed discussion with the patient and/or guardian regarding: the rn presence of at least one elevated blood pressure reading (>120/80) during this emergency department visit. Special discussion: I have referred the patient to see his PCP for further evaluation of high blood pressure. 05/05 16:55 Order name: IV Start; Complete Time: 17: rn 05/05 17:49 Order name: EKG Electrocardiogram EDMS Administered Medications: 17: Drug: Lasix 40 mg Route: IVP; Site: right hand; jl7 18:00 Follow up: Response: No adverse reaction jl7 17:38 Drug: cloNIDine 0.2 mg Route: PO; jl7 18:00 Follow up: Response: No adverse reaction jl7 17:38 Drug: Xopenex 1.25 mg Route: Inhalation; jl7 18:00 Follow up: Response: No adverse reaction jl7 Disposition: 05/05/18 17:57 Discharged to Home. Impression: Hypertension, Unspecified combined systolic (congestive) and diastolic (congestive) heart failure. - Condition is Stable. - Discharge Instructions: Heart Failure, Hypertension, Managing Your Hypertension. - Medication Reconciliation Form, Thank You Letter, Antibiotic Education, Prescription Opioid Use form. - Follow up: Private Physician; When: As needed; Reason: Recheck today's complaints, Re-evaluation by your physician. - Problem is chronic. - Symptoms have improved. Signatures: Dispatcher [employer] EDMS Ryan Vasquez MD MD rn Leal, Jahala, RN RN jl7 Corrections: (The following items were deleted from the chart) 18:16 17:57 05/05/2018 17:57 Discharged to Home. Impression: Hypertension; Unspecified jl7 combined systolic (congestive) and diastolic (congestive) heart failure. Condition is Stable. Forms are Medication Reconciliation Form, Thank You Letter, Antibiotic Education, Prescription Opioid Use. Follow up: Private Physician; When: As needed; Reason: Recheck today's complaints, Re-evaluation by your physician. Problem is chronic. Symptoms have improved. rn
[2018-05-05 18:34] VITALS: BP 180/95; O2SAT 98
--- NOTE | 2018-05-06 06:04 | EKG ---
Test Date: 2018-05-05 Test Time: 16:50:19 Tip Finisher: JOHANA MEASUREMENT RESULTS: Intervals: Rate: 94 OR: 144 QRSD: 112 QT: 408 QTc: 510 [place]: P: 82 OR: 144 QRS: 126 T: -1 INTERPRETIVE STATEMENTS: Normal sinus rhythm Right atrial enlargement Right axis deviation Pulmonary disease pattern Voltage criteria for left ventricular hypertrophy Nonspecific ST and T wave abnormality Prolonged QT Abnormal ECG Compared to ECG 05/05/2018 10:52:10 ST (T wave) deviation now present Myocardial infarct finding no longer present Electronically Signed On 05-06-18 06:04:11 MUD JACK NOZZLE WORKER by Cyrus Porter
== END 2018-05-05 18:16 | disposition home or self-care (01) ==
LOC: ER 16:44
DX: I10 Essential (primary) hypertension (principal); I50.40 Unspecified combined systolic (congestive) and diastolic (congestive) heart failure; F17.210 Nicotine dependence, cigarettes, uncomplicated; Z85.46 Personal history of malignant neoplasm of prostate; Z88.8 Allergy status to other drugs, medicaments and biological substances
CPT/HCPCS: 93005; 96374; 99285; J1940

== ENCOUNTER 2018-05-09 02:30 | Emergency (ER) | payer OTHER ==
--- OUTSIDE RECORDS SUMMARY | 2018-05-09 02:33 | XMS REPORT ---
:1950 [facility] Address [address] [place] [address] Care Team Providers Name Role Phone Unavailable [...]
[2018-05-09] MEDS ORDERED: cloNIDine HCl 0.1 MG TAB ONE ×2 (02:58→04:05)
[2018-05-09] MEDS ORDERED: ALBUTEROL 2.5 MG/3 ML NEB SOL ONE (04:05)
[2018-05-09] MEDS ORDERED: NITROGLYCERIN 0.4 MG/TAB SL ONE (05:17)
--- NOTE | 2018-05-09 05:19 | EDPHYS ---
Physician Documentation [facility] Name: Mark Terrell Age: 67 yrs Sex: Male : 1950 Arrival Date: 05/09/2018 Time: 02:33 Bed 19 Private MD: ED Physician Mike Yoo HPI: 05/09 05:23 This 67 yrs old Male presents to ER via EMS with complaints of Shortness Of gs Breath. 05:23 Onset: The symptoms/episode began/occurred yesterday. Duration: The symptoms are gs intermittent. The patient's shortness of breath is aggravated by nothing, is alleviated by nothing. Associated signs and symptoms: Pertinent negatives: chest pain. Severity of symptoms: At their worst the symptoms were moderate in the emergency department the symptoms are unchanged. The patient has experienced similar episodes in the past, chronically. The patient has been recently seen at the [facility], last week. Historical: - Allergies: 02:38 Benadryl; ak1 - Home Meds: 02:38 None [Active]; ak1 - PMHx: 02:38 Aneurysm; BRAIN; Atrial Fib; Cancer; PROSTATE; CHF; Prostate Cancer; Hypertension; COPD;ak1 - Immunization history:: Adult Immunizations unknown. - Social history:: Smoking status: unknown. - Ebola Screening: : No symptoms or risks identified at this time. ROS: 05:23 All other systems are negative. gs Exam: 05:23 Head/Face: Normocephalic, atraumatic. Eyes: Pupils equal round and reactive to light, gs extra-ocular motions intact. Lids and lashes normal. Conjunctiva and sclera are non-icteric and not injected. Cornea within normal limits. Periorbital areas with no swelling, redness, or edema. ENT: Nares patent. No nasal discharge, no septal abnormalities noted. Tympanic membranes are normal and external auditory canals are clear. Oropharynx with no redness, swelling, or masses, exudates, or evidence of obstruction, uvula midline. Mucous membranes moist. Neck: Trachea midline, no thyromegaly or masses palpated, and no cervical lymphadenopathy. Supple, full range of motion without nuchal rigidity, or vertebral point tenderness. No Meningismus. Chest/axilla: Normal chest wall appearance and motion. Nontender with no deformity. No lesions are appreciated. Cardiovascular: Regular rate and rhythm with a normal S1 and S2. No gallops, murmurs, or rubs. Normal PMI, no JVD. No pulse deficits. Respiratory: Lungs have equal breath sounds bilaterally, clear to auscultation and percussion. No rales, rhonchi or wheezes noted. No increased work of breathing, no retractions or nasal flaring. Abdomen/GI: Soft, non-tender, with normal bowel sounds. No distension or tympany. No guarding or rebound. No evidence of tenderness throughout. Back: No spinal tenderness. No costovertebral tenderness. Full range of motion. Skin: Warm, dry with normal turgor. Normal color with no rashes, no lesions, and no evidence of cellulitis. MS/ Extremity: Pulses equal, no cyanosis. Neurovascular intact. Full, normal range of motion. Neuro: Awake and alert, GCS 15, oriented to person, place, time, and situation. Cranial nerves II-XII grossly intact. Motor strength 5/5 in all extremities. Sensory grossly intact. Cerebellar exam normal. Normal gait. 05:23 Constitutional: The patient appears alert, awake. 05:23 ECG was reviewed by the Attending Physician. Vital Signs: 02:34 BP 200 / 119; Pulse 96; Resp 22; Temp 98.1(O); Pulse Ox 100% on R/A; Weight 77.11 kg ak1 (R); Height 5 ft. 11 in. (180.34 cm) (R); Pain 0/10; 02:49 BP 182 / 125; Pulse 90; Resp 20; Pulse Ox 100% on R/A; ak1 04:01 BP 187 / 103; Pulse 85; Resp 20; Pulse Ox 100% on R/A; ak1 05:01 BP 181 / 105; Pulse 84; Resp 18; Pulse Ox 100% on R/A; ak1 05:21 BP 154 / 129; Pulse 84; Resp 18; Temp 98.3; Pulse Ox 100% on R/A; ak1 02:34 Body Mass Index 23.71 (77.11 kg, 180.34 cm) ak1 MDM: 03:30 Patient medically screened. 05:23 Data reviewed: vital signs, nurses notes. ED course: pt non compliant. 05/09 02:37 Order name: EKG - Nurse/Tech; Complete Time: 03:05 EC:23 Rate is 89 beats/min. Rhythm is regular. VA interval is normal. QRS interval is gs prolonged. QT interval is prolonged. T waves are Flattened. Clinical impression: NSR w/ Non-specific ST/T Changes. Interpreted by me. Administered Medications: 02:49 Drug: cloNIDine 0.2 mg Route: PO; ak1 03:57 Follow up: Response: No adverse reaction ak1 23:25 Follow up: Response: No adverse reaction ak1 03:57 Drug: cloNIDine 0.1 mg Route: PO; ak1 03:58 Follow up: Response: No adverse reaction ak1 23:25 Follow up: Response: No adverse reaction ak1 03:57 Drug: Albuterol 2.5 mg Route: Inhalation; ak1 05:08 Drug: Nitroglycerin 0.4 mg Route: Sublingual; ak1 05:26 Follow up: Response: No adverse reaction ak1 23:25 Follow up: Response: No adverse reaction ak1 Disposition: 05/09/18 05:18 Discharged to Home. Impression: Hypertensive heart disease. - Condition is Stable. - Discharge Instructions: Hypertension. - Medication Reconciliation Form, Thank You Letter, Antibiotic Education, Prescription Opioid Use form. - Follow up: Private Physician; When: 2 - 3 days; Reason: Re-evaluation by your physician. Signatures: Crystal Lord RN RN ak1 Mike Yoo MD MD Corrections: (The following items were deleted from the chart) 05:25 05:18 05/09/2018 05:18 Discharged to Home. Impression: Hypertensive heart disease. ak1 Condition is Stable. Forms are Medication Reconciliation Form, Thank You Letter, Antibiotic Education, Prescription Opioid Use. Follow up: Private Physician; When: 2 - 3 days; Reason: Re-evaluation by your physician. gs
--- NOTE | 2018-05-09 05:19 | ER ---
Nurse's Notes [facility] Name: Mark Terrell Age: 67 yrs Sex: Male : 1950 Arrival Date: 05/09/2018 Time: 02:33 Bed 19 Private MD: Diagnosis: Hypertensive heart disease Presentation: 05/09 02:35 Presenting complaint: EMS states: pt c/o SOB X1 day. pt ambulated with steady gait and ak1 even unlabored resp from ambulance bay to ER19. Transition of care: patient was not received from another setting of care. Onset of symptoms was May 08, 2018. Risk Assessment: Do you want to hurt yourself or someone else? Patient reports no desire to harm self or others. Initial Sepsis Screen: Does the patient meet any 2 criteria? No. Patient's initial sepsis screen is negative. Does the patient have a suspected source of infection? No. Patient's initial sepsis screen is negative. Care prior to arrival: None. 02:35 Method Of Arrival: EMS: [facility] ak1 02:35 Acuity: ARIEL 3 ak1 Triage Assessment: 02:38 General: Appears in no apparent distress. Behavior is calm, cooperative. Pain: Denies ak1 pain. EENT: No signs and/or symptoms were reported regarding the EENT system. Neuro: No deficits noted. Cardiovascular: No deficits noted. Respiratory: Reports shortness of breath at rest since yesterday Airway is patent Onset: The symptoms/episode began/occurred yesterday, the patient has mild shortness of breath. GI: No signs and/or symptoms were reported involving the gastrointestinal system. : No signs and/or symptoms were reported regarding the genitourinary system. Derm: No signs and/or symptoms reported regarding the dermatologic system. Musculoskeletal: No signs and/or symptoms reported regarding the musculoskeletal system. Historical: - Allergies: 02:38 Benadryl; ak1 - Home Meds: 02:38 None [Active]; ak1 - PMHx: 02:38 Aneurysm; BRAIN; Atrial Fib; Cancer; PROSTATE; CHF; Prostate Cancer; Hypertension; COPD;ak1 - Immunization history:: Adult Immunizations unknown. - Social history:: Smoking status: unknown. - Ebola Screening: : No symptoms or risks identified at this time. Screenin:41 Abuse screen: Denies threats or abuse. Denies injuries from another. Nutritional ak1 screening: No deficits noted. Tuberculosis screening: No symptoms or risk factors identified. Fall Risk None identified. Assessment: 02:40 Cardiovascular: Rhythm is regular. Respiratory: Respiratory effort is even, unlabored. ak1 03:59 Reassessment: pt requesting a neb treatment, Dr. Yoo notified and verbal orders given ak1 for albuterol treatment and 0.1mg clonidine PO. General:. Respiratory: Airway is patent. 05:14 Reassessment: Patient appears in no apparent distress at this time. No changes from ak1 previously documented assessment. Patient and/or family updated on plan of care and expected duration. Pain level reassessed. 05:23 Reassessment: pt stated "if you aren't going to do anything else I need to catch the ak1 bus" Dr. Yoo notified, pt discharged. Vital Signs: 02:34 BP 200 / 119; Pulse 96; Resp 22; Temp 98.1(O); Pulse Ox 100% on R/A; Weight 77.11 kg ak1 (R); Height 5 ft. 11 in. (180.34 cm) (R); Pain 0/10; 02:49 BP 182 / 125; Pulse 90; Resp 20; Pulse Ox 100% on R/A; ak1 04:01 BP 187 / 103; Pulse 85; Resp 20; Pulse Ox 100% on R/A; ak1 05:01 BP 181 / 105; Pulse 84; Resp 18; Pulse Ox 100% on R/A; ak1 05:21 BP 154 / 129; Pulse 84; Resp 18; Temp 98.3; Pulse Ox 100% on R/A; ak1 02:34 Body Mass Index 23.71 (77.11 kg, 180.34 cm) ak1 ED Course: 02:33 Patient arrived in ED. ak1 02:36 Triage completed. ak1 02:37 Mike Yoo MD is Attending Physician. 02:38 Arm band placed on Patient placed in an exam room, on a stretcher, on pulse oximetry, ak1 Patient notified of wait time. 02:41 Patient has correct armband on for positive identification. Bed in low position. Call ak1 light in reach. Side rails up X 1. Pulse ox on. NIBP on. 02:42 Krenek, Crystal, RN is Primary Nurse. ak1 05:22 No provider procedures requiring assistance completed. Patient did not have IV access ak1 during this emergency room visit. Administered Medications: 02:49 Drug: cloNIDine 0.2 mg Route: PO; ak1 03:57 Follow up: Response: No adverse reaction ak1 23:25 Follow up: Response: No adverse reaction ak1 03:57 Drug: cloNIDine 0.1 mg Route: PO; ak1 03:58 Follow up: Response: No adverse reaction ak1 23:25 Follow up: Response: No adverse reaction ak1 03:57 Drug: Albuterol 2.5 mg Route: Inhalation; ak1 05:08 Drug: Nitroglycerin 0.4 mg Route: Sublingual; ak1 05:26 Follow up: Response: No adverse reaction ak1 23:25 Follow up: Response: No adverse reaction ak1 Outcome: 05:18 Discharge ordered by . 05:22 Discharged to home ambulatory. ak1 05:22 Condition: stable 05:22 Discharge instructions given to patient, Instructed on discharge instructions, follow up and referral plans. Demonstrated understanding of instructions, follow-up care. 05:25 Patient left the ED. ak1 Signatures: Crystal Lord RN RN ak1 Mike Yoo MD MD
[2018-05-09 05:28] VITALS: O2SAT 100
[2018-05-09 05:33] VITALS: BP 154/129; TEMP 98.3
--- NOTE | 2018-05-10 21:47 | EKG ---
Test Date: 2018-05-09 Test Time: 02:58:16 Computer Hardware Designer: TYE MEASUREMENT RESULTS: Intervals: Rate: 89 [place]: 144 QRSD: 118 QT: 428 QTc: 520 [place]: P: 78 ND: 144 QRS: 88 T: 49 INTERPRETIVE STATEMENTS: Sinus rhythm with premature atrial complexes Possible Left atrial enlargement Nonspecific intraventricular conduction delay Left ventricular hypertrophy Prolonged QT Abnormal ECG Compared to ECG 05/05/2018 16:50:19 Atrial premature complex(es) now present Intraventricular conduction delay now present Right-axis deviation no longer present Electronically Signed On 05-10-18 21:46:27 CDT by Jitendra Willams
== END 2018-05-09 05:25 | disposition home or self-care (01) ==
LOC: ER 02:30
DX: I11.9 Hypertensive heart disease without heart failure (principal); I10 Essential (primary) hypertension; Z85.46 Personal history of malignant neoplasm of prostate; Z88.8 Allergy status to other drugs, medicaments and biological substances
CPT/HCPCS: 93005; 99284

== ENCOUNTER 2018-05-12 08:13 | Emergency (ER) | payer OTHER ==
--- OUTSIDE RECORDS SUMMARY | 2018-05-12 08:14 | XMS REPORT ---
:1950 [facility] Address [address] [place] [address] Care Team Providers Name Role Phone Unavailable [...]
[2018-05-12] MEDS ORDERED: METHYLPREDNISOLONE 40 MG INJ ONE (08:36)
[2018-05-12] MEDS ORDERED: IPRATROPIUM BROM 0.5MG/2.5ML ONE (08:36)
[2018-05-12] MEDS ORDERED: ALBUTEROL 2.5 MG/3 ML NEB SOL ONE (08:36)
[2018-05-12 08:52] LABS: Absolute Lymphocytes (CBC) 2.7 K/uL (0.7-4.9); Absolute Monocytes 1.5 K/uL (0.1-1.3); Absolute Neutrophil 7.1 K/uL (1.8-8.0); Eosinophils % 0.9 % (0-4.4); Hematocrit 34.3 % (39.6-49.0); MPV 9.4 fL (7.6-11.3); Monocytes % 13.1 % (3.3-12.3); RBC Red Blood Cell Count 5.53 M/uL (4.33-5.43)
[2018-05-12 08:57] LABS: Magnesium 2.1 mg/dL (1.8-2.4); Potassium 4.4 mmol/L (3.5-5.1)
[2018-05-12 10:02] LABS: Anisocytosis 2+; Blood Morphology Comment NOTED (NOT SEEN); Hypochromasia 2+; Platelet Estimate INCR; Polychromasia 2+
[2018-05-12 10:03] LABS: Ovalocytes 2+; Target Cells 1+
[2018-05-12] MEDS ORDERED: ASPIRIN 81 MG CHEWABLE TABLET ONE (10:04)
[2018-05-12] MEDS ORDERED: FUROSEMIDE 20 MG/ 2ML VIAL ONE (10:04)
[2018-05-12] MEDS ORDERED: METOPROLOL XL 50 MG TAB PO ONE (10:05)
--- NOTE | 2018-05-12 10:07 | RAD REPORT ---
EXAM DESCRIPTION: RAD - Chest Single View - 05/12/2018 8:52 am CLINICAL HISTORY: Shortness of breath COMPARISON: May 05 TECHNIQUE: AP portable chest image was obtained 0848 hours . FINDINGS: No peripheral mass or consolidation. Interstitial markings are prominent but not clearly d ifferent. Vasculature is decreased compared to the prior study. Cardiomegaly is similar to the prior exam. Trachea is midline. No measurable pleural effusion and no pneumothorax. No acute bony abnormali ty seen. No acute aortic findings suspected. IMPRESSION: Cardiomegaly is present similar to comparison. Vasculature has decreased in prominence. Patient has prominent interstitial markings that are not substantially different. A minimal failure o r volume overload is possible with findings less prominent than seen May 05.
[2018-05-12] MEDS ORDERED: cloNIDine HCl 0.1 MG TAB ONE (11:02)
--- NOTE | 2018-05-12 11:21 | EDPHYS ---
Physician Documentation [facility] Name: Mark Terrell Age: 67 yrs Sex: Male : 1950 Arrival Date: 05/12/2018 Time: 08:14 Bed 17 Private MD: ED Physician Ryan Vasquez HPI: 05/12 08:25 This 67 yrs old Male presents to ER via EMS with complaints of shortness of cp breath. 08:25 The patient has shortness of breath at rest. cp 08:25 Onset: The symptoms/episode began/occurred yesterday. The patient's shortness of breath cp is aggravated by light activity. Associated signs and symptoms: Pertinent negatives: chest pain, productive cough, diaphoresis, fever, hemoptysis, vomiting. Severity of symptoms: in the emergency department the symptoms are unchanged despite home interventions. Historical: - Allergies: 08:17 Benadryl; tw2 - PMHx: 08:17 Prostate Cancer; Hypertension; COPD; CHF; Cancer; PROSTATE; Atrial Fib; Aneurysm; BRAIN;tw2 - Immunization history:: Adult Immunizations. - Social history:: Smoking status: Patient uses tobacco products, smokes one pack cigarettes per day. - Ebola Screening: : Patient denies travel to an Ebola-affected area in the 21 days before illness onset. ROS: 08:30 Constitutional: Negative for body aches, chills, fever, poor PO intake. cp 08:30 Eyes: Negative for injury, pain, redness, and discharge. cp 08:30 ENT: Negative for drainage from ear(s), ear pain, sore throat, difficulty swallowing, difficulty handling secretions. 08:30 Cardiovascular: Negative for chest pain, palpitations. 08:30 Respiratory: Positive for shortness of breath, at rest. Negative for hemoptysis. 08:30 Abdomen/GI: Negative for abdominal pain, nausea, vomiting, and diarrhea, black/tarry stool, rectal bleeding. 08:30 Back: Negative for pain at rest, pain with movement. 08:30 : Negative for urinary symptoms. 08:30 Skin: Negative for cellulitis, rash. 08:30 Neuro: Negative for altered mental status, dizziness, headache, syncope, weakness. 08:30 All other systems are negative. Exam: 08:40 Constitutional: The patient appears in no acute distress, alert, awake, cp non-diaphoretic, non-toxic, well developed, well nourished, unkempt. 08:40 Head/Face: Normocephalic, atraumatic. cp 08:40 Eyes: Periorbital structures: appear normal, Conjunctiva: normal, no exudate, no cp injection, Sclera: no appreciated abnormality, Lids and lashes: appear normal, bilaterally. 08:40 ENT: External ear(s): are unremarkable, Ear canal(s): are normal, clear, TM's: bulging, is not appreciated, bilaterally, dullness, bilaterally, erythema, is not appreciated, bilaterally, Nose: is normal, Mouth: Lips: moist, Oral mucosa: pink and intact, moist, Posterior pharynx: Airway: no evidence of obstruction, patent, Tonsils: are normal in appearance, Uvula: midline, swelling, is not appreciated, erythema, is not appreciated, exudate, is not appreciated, Voice: is normal. 08:40 Neck: ROM/movement: is normal, is supple, without pain, no range of motions cp limitations, no meningismus, no nuchal rigidity. 08:40 Chest/axilla: Inspection: normal, Palpation: is normal, no crepitus, no tenderness. 08:40 Cardiovascular: Rate: normal, Rhythm: regular, Edema: ankle edema, that is mild, JVD: is not appreciated. 08:40 Respiratory: the patient does not display signs of respiratory distress, Respirations: labored breathing, is not present, Breath sounds: decreased breath sounds, that are mild, throughout, stridor, is not appreciated, wheezing: that is mild, is heard diffusely. 08:40 Abdomen/GI: Inspection: abdomen appears normal, Palpation: abdomen is soft and non-tender, in all quadrants. 08:40 Skin: cellulitis, is not appreciated, no rash present. 08:40 Neuro: Orientation: to person, place \T\ time. Mentation: is normal, Cerebellar function: is grossly normal, Motor: moves all fours, strength is normal, Sensation: is normal. 08:50 ECG was reviewed by the Attending Physician. cp Vital Signs: 08:15 BP 174 / 107; Pulse 95; Resp 19; Temp 97.9(TE); Pulse Ox 97% on R/A; Pain 0/10; tw2 09:30 BP 171 / 110; Pulse 95; Resp 17; Pulse Ox 97% on R/A; tw2 10:02 BP 177 / 104; Pulse 94; Resp 19; Pulse Ox 95% on R/A; tw2 11:46 BP 167 / 110; Pulse 94; Resp 17; Pulse Ox 97% on R/A; tw2 MDM: 08:17 Patient medically screened. 11:20 Data reviewed: vital signs, nurses notes, lab test result(s), EKG, radiologic studies, cp plain films. 11:20 Test interpretation: by ED physician or midlevel provider: ECG, plain radiologic cp studies. Counseling: I had a detailed discussion with the patient and/or guardian regarding: the historical points, exam findings, and any diagnostic results supporting the discharge/admit diagnosis, the presence of at least one elevated blood pressure reading (>120/80) during this emergency department visit, lab results, radiology results, the need for outpatient follow up, for definitive care, an glass sander, to return to the emergency department if symptoms worsen or persist or if there are any questions or concerns that arise at home. Response to treatment: the patient's symptoms have markedly improved after treatment, and as a result, I will discharge patient. 05/12 08:21 Order name: CBC with Diff; Complete Time: 10:07 05/12 09:38 Interpretation: Normal except: WBC 11.5; RBC 5.53; HGB 10.0; HCT 34.3; MCV 62.0; MCH cp 18.1; MCHC 29.2; PLT 440; RDW 19.4; MN% 13.1; MNA 1.5. 05/12 08:21 Order name: BMP; Complete Time: 09:37 cp 05/12 09:37 Interpretation: Normal except: CL 108; BUN 28; CRE 1.54; GFR 45. cp 05/12 08:21 Order name: Magnesium; Complete Time: 09:37 cp 05/12 09:39 Interpretation: MG 2.1; Reviewed. 05/12 08:36 Order name: XRAY Chest (1 view); Complete Time: 10:08 cp 05/12 10:08 Interpretation: Report review. 05/12 09:00 Order name: Manual Differential; Complete Time: 10:07 EDMS 05/12 10:07 Interpretation: Normal except: LYM 8; MONO 12. cp 05/12 08:21 Order name: IV; Complete Time: 08:38 cp 05/12 08:21 Order name: EKG; Complete Time: 08:21 cp 05/12 08:21 Order name: EKG - Nurse/Tech; Complete Time: 08:38 cp EC:50 Rate is 94 beats/min. Rhythm is regular. [place] interval is normal. QRS interval is cp prolonged at 110 msec. QT interval is normal. Interpreted by me. Reviewed by me. Administered Medications: 08:38 Drug: SOLU-Medrol 80 mg Route: IVP; Site: right antecubital; tw2 09:51 Follow up: Response: No adverse reaction tw2 08:38 Drug: Albuterol - atroVENT (3:1) (2.5 mg - 0.5 mg) 3 ml Route: Nebulizer; tw2 09:51 Follow up: Response: No adverse reaction tw2 09:59 Drug: Aspirin Chewable Tablet 162 mg Route: PO; tw2 09:59 Follow up: Response: No adverse reaction tw2 09:59 Drug: Metoprolol TARTRATE (Lopressor) 50 mg Route: PO; tw2 11:01 Follow up: Response: No adverse reaction tw2 09:59 Drug: Lasix 20 mg Route: IVP; Site: right antecubital; tw2 09:59 Follow up: Response: No adverse reaction tw2 11:01 Drug: cloNIDine 0.2 mg Route: PO; tw2 11:47 Follow up: Response: No adverse reaction; No change in condition tw2 Disposition: 14:48 Co-signature as Attending Physician, Ryan Vasquez MD. rn Disposition: 05/12/18 11:20 Discharged to Home. Impression: Hypertensive heart disease, Chronic obstructive pulmonary disease with (acute) exacerbation, Unspecified combined systolic (congestive) and diastolic (congestive) heart failure. - Condition is Stable. - Discharge Instructions: Hypertension, Chronic Obstructive Pulmonary Disease Exacerbation, Managing Your Hypertension. - Prescriptions for Metoprolol Tartrate 25 mg Oral Tablet - take 1 tablet by ORAL route 2 times per day with a meal; 30 tablet. Prednisone 20 mg Oral Tablet - take 2 tablet by ORAL route once daily for 5 days; 10 tablet. Albuterol Sulfate 90 mcg/actuation - inhale 1-2 puff by INHALATION route every 4-6 hours; 1 Inhaler. - Medication Reconciliation Form, Thank You Letter, Antibiotic Education, Prescription Opioid Use form. - Follow up: Private Physician; When: 1 - 2 days; Reason: Recheck today's complaints. - Problem is chronic. - Symptoms have improved. Signatures: Dispatcher [employer] EDRyan Castillo MD MD rn Satish Michel PA PA cp Wise, Tara, RN RN tw2 Corrections: (The following items were deleted from the chart) 11:47 11:20 05/12/2018 11:20 Discharged to Home. Impression: Hypertensive heart disease; tw2 Chronic obstructive pulmonary disease with (acute) exacerbation; Unspecified combined systolic (congestive) and diastolic (congestive) heart failure. Condition is Stable. Forms are Medication Reconciliation Form, Thank You Letter, Antibiotic Education, Prescription Opioid Use. Follow up: Private Physician; When: 1 - 2 days; Reason: Recheck today's complaints. Problem is chronic. Symptoms have improved. cp
--- NOTE | 2018-05-12 11:21 | ER ---
Nurse's Notes [facility] Name: Mark Terrell Age: 67 yrs Sex: Male : 1950 Arrival Date: 05/12/2018 Time: 08:14 Bed 17 Private MD: Diagnosis: Hypertensive heart disease;Chronic obstructive pulmonary disease with (acute) exacerbation;Unspecified combined systolic (congestive) and diastolic (congestive) heart failure Presentation: 05/12 08:14 Presenting complaint: EMS states: pt called us last night for sob, we gave breathing tw2 treatment he was told of wait time in ER and he refused treatment, called us again this morning for same complaint, he is talking nonstop without difficulties, he is non compliant with his medication, bp 182/116, 97%. Transition of care: patient was not received from another setting of care. Onset of symptoms was May 12, 2018. Risk Assessment: Do you want to hurt yourself or someone else? Patient reports no desire to harm self or others. Initial Sepsis Screen: Does the patient meet any 2 criteria? No. Patient's initial sepsis screen is negative. Does the patient have a suspected source of infection? No. Patient's initial sepsis screen is negative. Care prior to arrival: None. 08:14 Method Of Arrival: EMS: [facility] tw2 08:14 Acuity: ARIEL 4 tw2 Triage Assessment: 08:18 General: Appears in no apparent distress. Behavior is calm, cooperative, appropriate tw2 for age. Pain: Denies pain. EENT: No signs and/or symptoms were reported regarding the EENT system. Neuro: Level of Consciousness is awake, alert, obeys commands, Oriented to person, place, time, situation. Cardiovascular: Heart tones S1 S2 Capillary refill < 3 seconds Patient's skin is warm and dry. Respiratory: Reports shortness of breath Airway is patent Respiratory effort is even, unlabored, Respiratory pattern is regular, symmetrical, Breath sounds are clear bilaterally. GI: No signs and/or symptoms were reported involving the gastrointestinal system. : No signs and/or symptoms were reported regarding the genitourinary system. Derm: No signs and/or symptoms reported regarding the dermatologic system. Musculoskeletal: Range of motion: intact in all extremities. Historical: - Allergies: 08:17 Benadryl; tw2 - PMHx: 08:17 Prostate Cancer; Hypertension; COPD; CHF; Cancer; PROSTATE; Atrial Fib; Aneurysm; BRAIN;tw2 - Immunization history:: Adult Immunizations. - Social history:: Smoking status: Patient uses tobacco products, smokes one pack cigarettes per day. - Ebola Screening: : Patient denies travel to an Ebola-affected area in the 21 days before illness onset. Screenin:42 Abuse screen: Denies threats or abuse. Nutritional screening: No deficits noted. tw2 Tuberculosis screening: No symptoms or risk factors identified. Fall Risk None identified. Assessment: 08:38 Reassessment: see triage assessment. tw2 10:02 Reassessment: Patient appears in no apparent distress at this time. No changes from tw2 previously documented assessment. Patient and/or family updated on plan of care and expected duration. Pain level reassessed. Patient is alert, oriented x 3, equal unlabored respirations, skin warm/dry/pink. 11:46 Reassessment: Patient appears in no apparent distress at this time. No changes from tw2 previously documented assessment. Patient and/or family updated on plan of care and expected duration. Pain level reassessed. Patient is alert, oriented x 3, equal unlabored respirations, skin warm/dry/pink. Vital Signs: 08:15 BP 174 / 107; Pulse 95; Resp 19; Temp 97.9(TE); Pulse Ox 97% on R/A; Pain 0/10; tw2 09:30 BP 171 / 110; Pulse 95; Resp 17; Pulse Ox 97% on R/A; tw2 10:02 BP 177 / 104; Pulse 94; Resp 19; Pulse Ox 95% on R/A; tw2 11:46 BP 167 / 110; Pulse 94; Resp 17; Pulse Ox 97% on R/A; tw2 ED Course: 08:14 Patient arrived in ED. tw2 08:14 Ryan Vasquez MD is Attending Physician. tw2 08:14 Satish Michel PA is PHCP. cp 08:15 Bed in low position. Call light in reach. bus monitor on. Pulse ox on. NIBP on. tw2 08:16 Triage completed. tw2 08:17 Arm band placed on. tw2 08:21 Ana M Wagenr RN is Primary Nurse. tw2 08:38 Inserted saline lock: 22 gauge in right forearm, using aseptic technique. Blood tw2 collected. Missed attempt(s): 20 gauge in right antecubital area. Bleeding controlled, band aid applied, catheter tip intact. 08:52 XRAY Chest (1 view) In Process Unspecified. EDMS 11:46 No provider procedures requiring assistance completed. IV discontinued, intact, tw2 bleeding controlled, No redness/swelling at site. Pressure dressing applied. Administered Medications: 08:38 Drug: SOLU-Medrol 80 mg Route: IVP; Site: right antecubital; tw2 09:51 Follow up: Response: No adverse reaction tw2 08:38 Drug: Albuterol - atroVENT (3:1) (2.5 mg - 0.5 mg) 3 ml Route: Nebulizer; tw2 09:51 Follow up: Response: No adverse reaction tw2 09:59 Drug: Aspirin Chewable Tablet 162 mg Route: PO; tw2 09:59 Follow up: Response: No adverse reaction tw2 09:59 Drug: Metoprolol TARTRATE (Lopressor) 50 mg Route: PO; tw2 11:01 Follow up: Response: No adverse reaction tw2 09:59 Drug: Lasix 20 mg Route: IVP; Site: right antecubital; tw2 09:59 Follow up: Response: No adverse reaction tw2 11:01 Drug: cloNIDine 0.2 mg Route: PO; tw2 11:47 Follow up: Response: No adverse reaction; No change in condition tw2 Outcome: 11:20 Discharge ordered by . garcia 11:46 Discharged to home ambulatory. tw2 11:46 Condition: stable 11:46 Discharge instructions given to patient, Instructed on discharge instructions, follow up and referral plans. medication usage, Demonstrated understanding of instructions, follow-up care, medications, Prescriptions given X 3. 11:47 Patient left the ED. tw2 Signatures: Dispatcher [employer] EDMS Satish Michel PA PA cp Wise, Tara, RN RN tw2
[2018-05-12 11:58] VITALS: BP 167/110; O2SAT 97
--- NOTE | 2018-05-14 10:27 | EKG ---
Test Date: 2018-05-12 Test Time: 08:39:34 Educational Aide: AYSHA MEASUREMENT RESULTS: Intervals: Rate: 94 OR: 146 QRSD: 110 QT: 410 QTc: 512 [place]: P: 70 OR: 146 QRS: 78 T: 32 INTERPRETIVE STATEMENTS: Normal sinus rhythm Prolonged QT Abnormal ECG Compared to ECG 05/09/2018 02:58:16 Atrial premature complex(es) no longer present Intraventricular conduction delay no longer present Left ventricular hypertrophy no longer present Electronically Signed On 05-12-18 12:39:59 CDT by Jitendra Willams
== END 2018-05-12 11:47 | disposition home or self-care (01) ==
LOC: ER 08:13
DX: I11.0 Hypertensive heart disease with heart failure (principal); I50.40 Unspecified combined systolic (congestive) and diastolic (congestive) heart failure; J44.1 Chronic obstructive pulmonary disease with (acute) exacerbation; C61 Malignant neoplasm of prostate; I48.91 Unspecified atrial fibrillation; F17.210 Nicotine dependence, cigarettes, uncomplicated
CPT/HCPCS: 93005; 85025; 80048; 36415; 83735; 71045; 94640; 96375; 96374; 99285; J1940; J2920

== ENCOUNTER 2018-05-15 19:54 | Observation (INO) | payer OTHER ==
--- OUTSIDE RECORDS SUMMARY | 2018-05-15 19:56 | XMS REPORT ---
:1950 Author Organization [facility] Address [address] [place] [address] Care Team Providers Name Role Phone Unavailable [...]
[2018-05-15] MEDS ORDERED: predniSONE 20 MG TAB ONE (21:16)
[2018-05-15] MEDS ORDERED: METOPROLOL TARTRATE 5 MG/5 ML INJ IV ONE (21:17)
[2018-05-15] MEDS ORDERED: LEVALBUTEROL 1.25 MG/3 ML NEB ONE (21:44)
[2018-05-15 21:52] LABS: Protime INR 1.79
[2018-05-15 22:04] LABS: Absolute Lymphocytes (CBC) 3.5 K/uL (0.7-4.9); Absolute Monocytes 1.4 K/uL (0.1-1.3); Absolute Neutrophil 6.9 K/uL (1.8-8.0); Basophils % 1.2 % (0-1.3); Eosinophils % 1.8 % (0-4.4); Hematocrit 36.2 % (39.6-49.0); Lymphocytes % 28.8 % (15.3-44.8); MPV 9.1 fL (7.6-11.3); Monocytes % 11.6 % (3.3-12.3); RBC Red Blood Cell Count 5.76 M/uL (4.33-5.43)
[2018-05-15 22:11] LABS: Albumin 3.5 g/dL (3.4-5.0); Bilirubin Direct 0.4 mg/dL (0-0.2); Bilirubin Total 1.5 mg/dL (0.2-1.0); Magnesium 2.1 mg/dL (1.8-2.4); Potassium 4.3 mmol/L (3.5-5.1); Protein, Total 6.5 g/dL (6.4-8.2); Troponin (Emerg Dept Use Only) 0.12 ng/mL (0.0-0.045)
[2018-05-15 22:37] LABS: Anisocytosis 1+; Blood Morphology Comment NOTED (NOT SEEN); Hypochromasia 2+; Platelet Estimate INCR; Poikilocytosis 1+; Polychromasia 1+
--- NOTE | 2018-05-15 23:06 | ER ---
Nurse's Notes [facility] Name: Mark Terrell Age: 67 yrs Sex: Male : 1950 Arrival Date: 05/15/2018 Time: 20:00 Bed 7 Private MD: Diagnosis: COPD Exacerbatioin, CHF, SOB Presentation: 05/15 20:00 Presenting complaint: EMS states: "we were called for a pt with difficulty breathing. jd3 when we arrived he was standing at the door waiting for us. he ambulated to the truck with no problem. he asked us to take him to the hospital fot get a breathing treatment so we gave him a breathing treatment. He said he felt better, but he insisted he still needed to come to the hospital.". Transition of care: patient was not received from another setting of care. Onset of symptoms was May 15, 2018. Risk Assessment: Do you want to hurt yourself or someone else? Patient reports no desire to harm self or others. Initial Sepsis Screen: Does the patient meet any 2 criteria? No. Patient's initial sepsis screen is negative. Does the patient have a suspected source of infection? No. Patient's initial sepsis screen is negative. Care prior to arrival: Medication(s) given: Albuterol Neb. 20:00 Method Of Arrival: EMS: [facility] jd3 20:00 Acuity: ARIEL 3 jd3 Historical: - Allergies: 20:10 Benadryl; jd3 - Home Meds: 20:10 None [Active]; jd3 - PMHx: 20:10 Aneurysm; BRAIN; Atrial Fib; Cancer; PROSTATE; CHF; COPD; Hypertension; Prostate Cancer;jd3 - PSHx: 20:10 brain; prostate; jd3 - Immunization history:: Adult Immunizations unknown. - Social history:: Smoking status: Patient uses tobacco products, smokes one-half pack cigarettes per day. - Ebola Screening: : Patient negative for fever greater than or equal to 101.5 degrees Fahrenheit, and additional compatible Ebola Virus Disease symptoms. Screenin:14 Abuse screen: Denies threats or abuse. Nutritional screening: No deficits noted. jd3 Tuberculosis screening: No symptoms or risk factors identified. Fall Risk Ambulatory Aid- None/Bed Rest/Nurse Assist (0 pts). Gait- Normal/Bed Rest/Wheelchair (0 pts) Mental Status- Oriented to own ability (0 pts). Total Chiang Fall Scale indicates No Risk (0-24 pts). Assessment: 20:18 General: Appears in no apparent distress. Behavior is calm, cooperative. Pain: Denies ak1 pain. Neuro: No deficits noted. Cardiovascular: No deficits noted. Respiratory: Reports shortness of breath Airway is patent Onset: The symptoms/episode began/occurred yesterday. GI: No signs and/or symptoms were reported involving the gastrointestinal system. : No signs and/or symptoms were reported regarding the genitourinary system. EENT: No signs and/or symptoms were reported regarding the EENT system. Derm: No signs and/or symptoms reported regarding the dermatologic system. Musculoskeletal: No signs and/or symptoms reported regarding the musculoskeletal system. 21:26 Reassessment: Patient appears in no apparent distress at this time. No changes from ak1 previously documented assessment. Patient and/or family updated on plan of care and expected duration. Pain level reassessed. Patient is alert, oriented x 3, equal unlabored respirations, skin warm/dry/pink. pt eating a sandwich, resp even unlabored, skin warm and day. pt given ice water, pillow and blanket. pt informed of wait for lab results. will continue to monitor. 21:29 Reassessment: urinal at bedside. . ak1 23:28 Reassessment: pt informed of wait for bed assignment. pt eating another sandwich. no ak1 resp distress noted at this time. Vital Signs: 20:10 BP 191 / 120; Pulse 100; Resp 24 S; Temp 97.5(O); Pulse Ox 96% on R/A; Weight 77.11 kg jd3 (R); Height 5 ft. 11 in. (180.34 cm) (R); Pain 8/10; 20:18 BP 187 / 127; Pulse 98; Resp 22; Pulse Ox 97% on R/A; Pain 0/10; ak1 21:25 BP 153 / 99; Pulse 83; Resp 20; Pulse Ox 99% on R/A; ak1 22:00 BP 153 / 116; Pulse 82; Resp 24; Pulse Ox 99% on R/A; ak1 23:26 BP 150 / 100; Pulse 94; Resp 24; Pulse Ox 94% on R/A; ak1 05/16 00:12 BP 166 / 104; Pulse 95; Resp 22; Temp 97.7(O); Pulse Ox 94% on R/A; Pain 0/10; ak1 05/15 20:10 Body Mass Index 23.71 (77.11 kg, 180.34 cm) jd3 ED Course: 05/15 20:00 Patient arrived in ED. jd3 20:05 Triage completed. jd3 20:14 Arm band placed on. jd3 20:14 Patient has correct armband on for positive identification. Bed in low position. Call jd3 light in reach. Side rails up X2. 20:16 Puma Chi MD is Attending Physician. kdr 20:18 Crystal Lord, RN is Primary Nurse. ak1 20:18 Pulse ox on. NIBP on. ak1 21:13 XRAY Chest (1 view) In Process Unspecified. EDMS 21:27 Initial lab(s) drawn, by me, sent to lab. EKG done, by ED staff, reviewed by Puma Chi MD X-ray(s) taken. Inserted saline lock: 20 gauge in right antecubital area, using aseptic technique. Blood collected. 23:04 Jose Mason MD is Hospitalizing Provider. kdr 05/16 00:13 Patient admitted, IV remains in place. ak1 00:41 No provider procedures requiring assistance completed. ak1 Administered Medications: 05/15 21:25 Drug: Lopressor 5 mg Route: IVP; Site: right antecubital; ak1 21:31 Follow up: Response: No adverse reaction; Blood pressure is lowered ak1 21:25 Drug: predniSONE 60 mg Route: PO; ak1 21:31 Follow up: Response: No adverse reaction ak1 21:47 Drug: Xopenex 1.25 mg Route: Inhalation; ak1 Outcome: 23:06 Decision to Hospitalize by Provider. kdr 05/16 00:13 Condition: stable ak1 Instructed on the need for admit. 00:41 Admitted to Med/surg accompanied by tech, via wheelchair, room 206, with chart, Report ak1 called to Diane METZ 00:41 Patient left the ED. ak1 Signatures: Dispatcher [employer] EDPA Puma Chi MD MD kdr Crystal Lord, RN RN ak1 Carter, Anatoliy, RN RN jd3
--- NOTE | 2018-05-15 23:06 | EDPHYS ---
Physician Documentation [facility] Name: Mark Terrell Age: 67 yrs Sex: Male : 1950 Arrival Date: 05/15/2018 Time: 20:00 Bed 7 Private MD: ED Physician Puma Chi HPI: 05/15 20:44 This 67 yrs old Male presents to ER via EMS with complaints of SOB. kdr 20:44 The patient is seen here often for SOB as recent as two days ago. EMS was called to his kdr home where he reportedly met them at the door c/o SOB. That gave him a neb treatment and he felt better but insisted that he be brought to the hospital. On arrival, he is in no acute distress and talking without apparent breathing difficulty.. Onset: The symptoms/episode began/occurred gradually, today. Severity of symptoms: At their worst the symptoms were mild in the emergency department the symptoms have improved mildly. The patient has experienced similar episodes in the past, chronically. The patient has been recently seen by a physician: 2 day(s) ago, The patient has been recently seen at the [facility] Emergency Department, this week. Historical: - Allergies: 20:10 Benadryl; jd3 - Home Meds: 20:10 None [Active]; jd3 - PMHx: 20:10 Aneurysm; BRAIN; Atrial Fib; Cancer; PROSTATE; CHF; COPD; Hypertension; Prostate Cancer;jd3 - PSHx: 20:10 brain; prostate; jd3 - Immunization history:: Adult Immunizations unknown. - Social history:: Smoking status: Patient uses tobacco products, smokes one-half pack cigarettes per day. - Ebola Screening: : Patient negative for fever greater than or equal to 101.5 degrees Fahrenheit, and additional compatible Ebola Virus Disease symptoms. ROS: 20:44 Constitutional: Negative for fever, chills, and weight loss, Eyes: Negative for injury, kdr pain, redness, and discharge, ENT: Negative for injury, pain, and discharge, Neck: Negative for injury, pain, and swelling, Cardiovascular: Negative for chest pain, palpitations, and edema, Abdomen/GI: Negative for abdominal pain, nausea, vomiting, diarrhea, and constipation, Back: Negative for injury and pain, : Negative for injury, bleeding, discharge, and swelling, MS/Extremity: Negative for injury and deformity, Skin: Negative for injury, rash, and discoloration, Neuro: Negative for headache, weakness, numbness, tingling, and seizure activity. Psych: Negative for depression, anxiety, suicide ideation, homicidal ideation, and hallucinations, Allergy/Immunology: Negative for hives, rash, and allergies, Endocrine: Negative for neck swelling, polydipsia, polyuria, polyphagia, and marked weight changes, Hematologic/Lymphatic: Negative for swollen nodes, abnormal bleeding, and unusual bruising. 20:44 Respiratory: Positive for dyspnea on exertion, shortness of breath, at rest. wheezing, inspiratory. Exam: 20:44 Constitutional: This is a well developed, well nourished patient who is awake, alert, kdr and in no acute distress. Head/Face: Normocephalic, atraumatic. Eyes: Pupils equal round and reactive to light, extra-ocular motions intact. Lids and lashes normal. Conjunctiva and sclera are non-icteric and not injected. Cornea within normal limits. Periorbital areas with no swelling, redness, or edema. Neck: Trachea midline, no thyromegaly or masses palpated, and no cervical lymphadenopathy. Supple, full range of motion without nuchal rigidity, or vertebral point tenderness. No Meningismus. Chest/axilla: Normal chest wall appearance and motion. Nontender with no deformity. No lesions are appreciated. Cardiovascular: Regular rate and rhythm with a normal S1 and S2. No gallops, murmurs, or rubs. Normal PMI, no JVD. No pulse deficits. Abdomen/GI: Soft, non-tender, with normal bowel sounds. No distension or tympany. No guarding or rebound. No evidence of tenderness throughout. Back: No spinal tenderness. No costovertebral tenderness. Full range of motion. Skin: Warm, dry with normal turgor. Normal color with no rashes, no lesions, and no evidence of cellulitis. MS/ Extremity: Pulses equal, no cyanosis. Neurovascular intact. Full, normal range of motion. Neuro: Awake and alert, GCS 15, oriented to person, place, time, and situation. Cranial nerves II-XII grossly intact. Motor strength 5/5 in all extremities. Sensory grossly intact. Cerebellar exam normal. Normal gait. Psych: Awake, alert, with orientation to person, place and time. Behavior, mood, and affect are within normal limits. 20:44 Respiratory: the patient does not display signs of respiratory distress, mild respiratory distress is noted, Respirations: shallow respirations, Breath sounds: wheezing: inspiratory that is mild. Vital Signs: 20:10 BP 191 / 120; Pulse 100; Resp 24 S; Temp 97.5(O); Pulse Ox 96% on R/A; Weight 77.11 kg jd3 (R); Height 5 ft. 11 in. (180.34 cm) (R); Pain 8/10; 20:18 BP 187 / 127; Pulse 98; Resp 22; Pulse Ox 97% on R/A; Pain 0/10; ak1 21:25 BP 153 / 99; Pulse 83; Resp 20; Pulse Ox 99% on R/A; ak1 22:00 BP 153 / 116; Pulse 82; Resp 24; Pulse Ox 99% on R/A; ak1 23:26 BP 150 / 100; Pulse 94; Resp 24; Pulse Ox 94% on R/A; ak1 05/16 00:12 BP 166 / 104; Pulse 95; Resp 22; Temp 97.7(O); Pulse Ox 94% on R/A; Pain 0/10; ak1 03 20:10 Body Mass Index 23.71 (77.11 kg, 180.34 cm) jd3 MDM: 05/15 20:44 Data reviewed: vital signs, nurses notes, lab test result(s), EKG, radiologic studies. kdr Counseling: I had a detailed discussion with the patient and/or guardian regarding: the historical points, exam findings, and any diagnostic results supporting the discharge/admit diagnosis, lab results, radiology results. 23:06 Patient medically screened. kdr 05/15 20:44 Order name: Basic Metabolic Panel; Complete Time: 22:56 kdr 05/15 20:44 Order name: CBC with Diff; Complete Time: 22:56 kdr 05/15 20:44 Order name: LFT's; Complete Time: 22:56 kdr 05/15 20:44 Order name: Magnesium; Complete Time: 22:56 kdr 05/15 20:44 Order name: NT PRO-BNP; Complete Time: 22:56 kdr 05/15 20:44 Order name: PT-INR; Complete Time: 22:56 kdr 05/15 20:44 Order name: Troponin (emerg Dept Use Only); Complete Time: 22:56 [facility] 05/15 22:37 Order name: Manual Differential; Complete Time: 22:56 EDID 05/16 00:03 Order name: Comprehensive Metabolic Panel [facility] 05/16 00:03 Order name: Magnesium EDID 05/16 00:03 Order name: Phosphorus EDID 05/16 00:03 Order name: NT PRO-BNP EDID 05/16 00:03 Order name: Troponin I [facility] 05/16 00:05 Order name: CBC with Automated Diff EDID 05/15 20:44 Order name: XRAY Chest (1 view) [facility] 05/15 20:44 Order name: EKG; Complete Time: 20:44 [facility] 05/15 20:44 Order name: Cardiac monitoring; Complete Time: 21:25 [facility] 05/15 20:44 Order name: EKG - Nurse/Tech; Complete Time: 21:25 [facility] 05/15 20:44 Order name: IV Saline Lock; Complete Time: 21:25 [facility] 05/15 20:44 Order name: Labs collected and sent; Complete Time: 21:25 [facility] 05/15 20:44 Order name: O2 Per Protocol; Complete Time: 21:01 [facility] 05/15 20:44 Order name: O2 Sat Monitoring; Complete Time: 21:01 [facility] 05/16 00:03 Order name: CONS Physician Consult [facility] 05/16 00:05 Order name: Heart Healthy EDID Administered Medications: 21:25 Drug: Lopressor 5 mg Route: IVP; Site: right antecubital; ak1 21:31 Follow up: Response: No adverse reaction; Blood pressure is lowered ak1 21:25 Drug: predniSONE 60 mg Route: PO; ak1 21:31 Follow up: Response: No adverse reaction ak1 21:47 Drug: Xopenex 1.25 mg Route: Inhalation; ak1 Disposition: 05/15/18 23:06 Hospitalization ordered by Jose Mason for Observation. Preliminary diagnosis is COPD Exacerbatioin, CHF, SOB. - Bed requested for Telemetry/MedSurg (observation). - Status is Observation. ak1 - Condition is Fair. - Problem is an acute exacerbation. - Symptoms have improved. UTI on Admission? No Signatures: Dispatcher [employer] [facility] Roseann Erickson RN RN Puma Chi MD MD [facility] Crystal Lord RN RN ak1 Anatoliy Carter RN RN jd3 Corrections: (The following items were deleted from the chart) 05/16 00:08 05/15 23:06 Hospitalization Ordered by Jose Mason MD for Observation. Preliminary mw diagnosis is COPD Exacerbatioin, CHF, SOB. Bed requested for Telemetry/MedSurg (observation). Status is Observation. Condition is Fair. Problem is an acute exacerbation. Symptoms have improved. UTI on Admission? No. kdr 05/16 00:41 00:08 05/15/2018 23:06 Hospitalization Ordered by Jose Mason MD for Observation. ak1 Preliminary diagnosis is COPD Exacerbatioin, CHF, SOB. Bed requested for Telemetry/MedSurg (observation). Status is Observation. Condition is Fair. Problem is an acute exacerbation. Symptoms have improved. UTI on Admission? No. mw
[2018-05-15] MEDS ORDERED: POTASSIUM CL 40 MEQ in NA CHLORIDE 0.9% 500 ML IV SCH (23:45)
[2018-05-15] MEDS ORDERED: MAGNESIUM HYDROXIDE 8% 30 ML PO PRN (23:56)
[2018-05-15] MEDS ORDERED: ONDANSETRON 4 MG/2 ML VIAL IV PRN (23:56)
[2018-05-16 00:59] VITALS: BMI 25.4
[2018-05-16] MEDS ORDERED: METOPROLOL TARTRATE 5 MG/5 ML INJ IV STA (01:41)
[2018-05-16 06:31] LABS: Albumin 3.4 g/dL (3.4-5.0); Bilirubin Total 1.1 mg/dL (0.2-1.0); Magnesium 2.1 mg/dL (1.8-2.4); Potassium 3.9 mmol/L (3.5-5.1); Protein, Total 6.2 g/dL (6.4-8.2); Troponin I 0.08 ng/mL (0.0-0.045)
[2018-05-16 06:32] LABS: Absolute Lymphocytes (CBC) 2.4 K/uL (0.7-4.9); Absolute Monocytes 0.3 K/uL (0.1-1.3); Absolute Neutrophil 6.3 K/uL (1.8-8.0); Basophils % 0.2 % (0-1.3); Hematocrit 34.3 % (39.6-49.0); Lymphocytes % 26.6 % (15.3-44.8); Monocytes % 2.9 % (3.3-12.3); RBC Red Blood Cell Count 5.57 M/uL (4.33-5.43)
[2018-05-16] MEDS ORDERED: cloNIDine HCl 0.1 MG TAB PO ONE (06:36)
[2018-05-16] MEDS ORDERED: METHYLPREDNISOLONE 125 MG INJ IV ONE (06:37)
[2018-05-16] MEDS: FUROSEMIDE 40 MG/4 ML VIAL IV SCH ×4 (07:18→16:42)
--- NOTE | 2018-05-16 08:26 | P.HP ---
Certification for Inpatient Patient admitted to: Observation With expected LOS: <2 Midnights Patient will require the following post-hospital care: None Practitioner: I am a practitioner with admitting privileges, knowledge of patient current condition, hospital course, and medical plan of care. Services: Services provided to patient in accordance with Admission requirements found in Title 42 Section 412.3 of the Code of Federal Regulations Patient History Date of Service: 05/16/18 Reason for admission: Shortness of breath History of Present Illness: Patient is a 67-year-old gentleman who has recurrent admissions for difficulty breathing. Patient is a history of COPD, CHF, tobacco abuse, type 2 diabetes, hypertension, coronary artery disease with stent placement. He has been in and out of the ER over the last few weeks. He really has not turned all the way around so decision was made to admit him to the hospital for further evaluation. Patient has been diuresed extensively. Patient also has been started on nebs and steroids. He states he is feeling better. However, his blood pressure is poorly controlled. He will be admitted to the hospital for further evaluation. Allergies diphenhydramine HCl [From Benadryl] Adverse Reaction (Intermediate, Verified 03:35) Hives Home Medications: NK [No Home Meds] 05/16/18 - Past Medical/Surgical History Has patient received pneumonia vaccine in the past: Yes Diabetic: No -: History of prostate cancer -: Hypertension -: History of brain aneurysm requiring surgery -: CHF, systolic dysfunction -: COPD -: Tobacco abuse -: hyperlipidemia -: Coronary disease, stents x3 to LAD/RCA(Feb 2016) -: anemia -: GERD -: anemia -: hyperlipidemia -: Prostate surgery -: Brain aneurysm surgery -: Toe surgery R. great toe/childhood -: Heart catheterization-3stents LAD/RCA Psychosocial/ Personal History: He is single, lives alone. He has no children. 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 - Family History Father Medical History: Cancer Notes: brain cancer Mother Medical History: Cancer Notes: pancreatic cancer Brother Medical History: Cancer Notes: lung cancer - Social History Smoking Status: Current every day smoker Alcohol use: No CD- Drugs: No Caffeine use: Yes Place of Residence: [facility] Review of Systems 10-point ROS is otherwise unremarkable Physical Examination - Vital Signs Temperature: 98 F Blood Pressure: 175/110 Pulse: 101 Respirations: 20 Pulse Ox (%): 93 - Physical Exam General: Alert, In no apparent distress, Oriented x3 HEENT: Atraumatic, Normocephalic Neck: Supple, 2+ carotid pulse no bruit, JVD not distended, No Thyromegaly, No LAD Respiratory: Crackles/rales, Expiratory wheezes Cardiovascular: Regular rate/rhythm, Normal S1 S2, Systolic murmur Gastrointestinal: Normal bowel sounds, Hypoactive, Soft and benign, Non- distended Musculoskeletal: No clubbing, No swelling Integumentary: No breakdown, No significant lesion, No erythema Neurological: Normal gait, Normal speech, Normal strength at 5/5 x4 extr, Normal tone, Sensation intact, Cranial nerves 3-12 intact - Studies Laboratory Data (last 24 hrs) 05/15/18 21:14: PT 20.6 H, INR 1.79 05/15/18 21:14: WBC 12.2 H, Hgb 10.5 L, Hct 36.2 L, Plt Count 493 H 05/15/18 21:14: Sodium 141, Potassium 4.3, BUN 27 H, Creatinine 1.30, Glucose 140 H, Magnesium 2.1, Total Bilirubin 1.5 H, AST 58 H, ALT 85 H, Alkaline Phosphatase 117 Assessment & Plan - Problems (Diagnosis) (1) Acute on chronic systolic (congestive) heart failure Onset Date: 09/01/17 Current Visit: No Status: Acute (2) COPD exacerbation Onset Date: 12/19/15 Current Visit: No Status: Acute (3) Coronary artery disease Onset Date: 01/26/18 Current Visit: No Status: Acute Qualifiers: (4) CAD (coronary artery disease) Onset Date: 03/18/16 Current Visit: No Status: Chronic Qualifiers: (5) History of prostate cancer Current Visit: No Status: Chronic (6) Hyperlipidemia Onset Date: 07/19/16 Current Visit: No Status: Chronic Qualifiers: (7) Hypertension Onset Date: 02/05/16 Current Visit: No Status: Chronic Qualifiers: (8) Nicotine dependence Onset Date: 04/03/17 Current Visit: No Status: Chronic Qualifiers: (9) Tobacco abuse Onset Date: 02/05/16 Current Visit: No Status: Chronic (10) Type 2 diabetes mellitus Onset Date: 12/10/16 Current Visit: No Status: Chronic Qualifiers: (11) Hypertensive urgency Onset Date: 11/15/16 Current Visit: No Status: Resolved - Plan 1. Echocardiogram 2. Continue on medication for strict blood pressure control; continue IV Lasix and will give angiotensin receptor vlad. Will also give a 1 time dose of clonidine to get the blood pressure controlled 3. We will start patient on a Beta vlad 4. Cardiology consultation 5. Gentle diuresis 6. Strict I's and O's 7. Repeat CXR 8. Daily weights 9. Monitor oxygen saturation 10. Counseled regarding tobacco cessation 11. Education regarding diet and treatment of congestive heart failure Discharge Plan: Home Plan to discharge in: 48 Hours - Advance Directives Does patient have a Living Will: No Does patient have a Durable POA for Healthcare: No - Code Status/Comfort Care Code Status Assessed: Yes Code Status: Full Code Critical Care: No Time Spent Managing PTS Care (In Minutes): 45
[2018-05-16] MEDS: LOSARTAN POTASSIUM 50 MG TABLET PO SCH ×3 (09:00→21:47)
[2018-05-16] MEDS ORDERED: POTASSIUM CL SA 10 MEQ TAB PO ONE (09:00)
--- NOTE | 2018-05-16 09:22 | EKG ---
Test Date: 2018-05-15 Test Time: 21:16:36 Car Storer: OLESYA MEASUREMENT RESULTS: Intervals: Rate: 83 NM: 136 QRSD: 116 QT: 424 QTc: 498 [place]: P: 77 NM: 136 QRS: 85 T: 45 INTERPRETIVE STATEMENTS: Normal sinus rhythm Possible Left atrial enlargement Prolonged QT Abnormal ECG Compared to ECG 05/12/2018 08:39:34 No significant changes Electronically Signed On 05-16-18 09:21:17 CDT by Cyrus Porter
[2018-05-16] MEDS: CLOPIDOGREL 75 MG TABLET PO SCH (11:06)
[2018-05-16] MEDS: ASPIRIN EC 81 MG TAB PO SCH (11:06)
[2018-05-16] MEDS: METOPROLOL TAR 50 MG TAB PO SCH ×2 (11:06→21:47)
[2018-05-16] MEDS: ENOXAPARIN 40 MG/0.4 ML SQ SCH (11:09)
--- NOTE | 2018-05-16 11:26 | RAD REPORT ---
EXAM DESCRIPTION: RAD - Chest Single View - 05/15/2018 9:20 pm CLINICAL HISTORY: COPD;Cough Chest pain. COMPARISON: Chest Single View dated 05/12/2018; Chest Single View dated 05/05/2018; Chest Single View d ated 04/25/2018; Chest Pa And Lat (2 Views) dated 04/21/2018 FINDINGS: Portable technique limits examination quality. Mild to moderate pulmonary edema is noted. The heart is moderately enlarged in size. Several old post erosuperior left rib fractures noted. IMPRESSION: Moderate CHF.
--- NOTE | 2018-05-16 20:38 | CON ---
Date of Consultation: 05/16/[address] Mason's service on 05/16/2018, I saw the patient on 05/16/2018. Reason For Consultation: Congestive heart failure. History Of Present Illness: Mr. Terrell is 67 years old, has had multiple admissions to the [facility] because of the same scenario. Mr. Terrell has congestive heart failure with an ejection fraction of 40% as of March of 2018. In 2016, he had an abnormal stress test. In July of 2017, he underwent an angioplasty of the RCA, has a patent LAD stent. He also had diffuse 50% stenosis along the LAD a nd the circumflex. His main problem is noncompliance with any medical regimen that he gets. He dustin austin lives in the [facility]. He came in with CHF as usual. Denied any chest pain, palpitations, or syncope . Past Medical History: Include history of brain aneurysm, hypertension, coronary artery disease statu s post stent in LAD, history of chronic systolic congestive heart failure, COPD, hypertension, and pr ostate cancer. Allergies: HE IS ALLERGIC TO BENADRYL. Review of Systems: Negative. Social History: Positive for tobacco or alcohol use and noncompliance. Family History: Positive for heart disease. Medications: He takes no medications at home. Physical Examination: Vital Signs: His blood pressure was 175/110. He was lethargic, but alert and oriented, when he awak es, he was in sinus rhythm. HEENT: Negative. Neck: Supple without any bruit, lymphadenopathy, JVD, or thyromegaly. Chest: Reveals rales bilaterally. Cardiac: Reveals a regular rhythm and rate with S3 gallops. No murmurs or rubs. Abdomen: Benign with good bowel sounds. Extremities: Revealed no clubbing, cyanosis. He had 1+ edema. Distally, the pulses were present bi laterally. Skin: Dry and intact. Neurologic: He was nonfocal. Diagnostic Data: [place] BNP was 59070, troponin 0.12. Creatinine is 1.33, hemoglobin 10.4, glucose was 254. Impression And Plan: 1.Acute exacerbation of chronic systolic congestive heart failure. 2.History of brain aneurysm that has resolved. 3.Hypertension, poorly controlled. 4.Noncompliance. 5.History of prostate cancer that is cured. 6.History of coronary artery disease, status post left anterior descending stent with known disease in the left anterior descending and circumflex of 30, 40, 50%. 7.Chronic obstructive pulmonary disease. I agree with Mr. Terrell's present regimen. He needs to be on beta-blockers, Lasix, aspirin, PAWEL in hibitors. His troponin and BNP elevation are secondary to CHF. 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 Case was discussed with Dr. Quiroz. ZHEN/MARY ANN Voice ID: [id number] Report ID: [id number]
[2018-05-17] MEDS: ALBUTEROL 2.5 MG/3 ML NEB SOL NEB PRN ×2 (01:57→22:55)
[2018-05-17] MEDS: IPRATROPIUM BROM 0.5MG/2.5ML NEB PRN ×2 (01:58→22:55)
[2018-05-17] MEDS: FUROSEMIDE 40 MG/4 ML VIAL IV SCH ×3 (06:28→17:00)
[2018-05-17 06:49] LABS: Potassium 3.9 mmol/L (3.5-5.1)
[2018-05-17] MEDS: ASPIRIN EC 81 MG TAB PO SCH (08:29)
[2018-05-17] MEDS: METOPROLOL TAR 50 MG TAB PO SCH ×2 (08:29→20:44)
[2018-05-17] MEDS: LOSARTAN POTASSIUM 50 MG TABLET PO SCH ×2 (08:29→20:44)
[2018-05-17] MEDS: CLOPIDOGREL 75 MG TABLET PO SCH (08:29)
[2018-05-17] MEDS: ENOXAPARIN 40 MG/0.4 ML SQ SCH (08:29)
[2018-05-17] MEDS ORDERED: POTASSIUM CL SA 10 MEQ TAB PO ONE (09:00)
--- NOTE | 2018-05-17 09:22 | RAD REPORT ---
EXAM DESCRIPTION: Neo Single View05/17/2018 7:14 am CLINICAL HISTORY: Shortness of breath COMPARISON: May 15 FINDINGS: Small bilateral pleural effusions left greater than right Mild bilateral pulmonary opacities The heart remains enlarged. Old rib fracture IMPRESSION: Mild CHF
--- NOTE | 2018-05-17 15:30 | P.PN ---
Subjective Date of Service: 05/17/18 Chief Complaint: Shortness of breath Subjective: No C/O voiced, Improving Patient seen and examined at bedside. No family at bedside. Chart reviewed and case discussed with nursing staff. Review of Systems 10-point ROS is otherwise unremarkable Physical Examination - Vital Signs Temperature: 98.2 F Blood Pressure: 143/74 Pulse: 67 Respirations: 17 Pulse Ox (%): 96 - Physical Exam General: Alert, In no apparent distress HEENT: Atraumatic, PERRLA, EOMI Neck: Supple, JVD not distended Respiratory: Clear to auscultation bilaterally, Normal air movement Cardiovascular: Regular rate/rhythm, Normal S1 S2 Gastrointestinal: Normal bowel sounds, No tenderness Musculoskeletal: No tenderness Integumentary: No rashes Neurological: Normal speech, Normal tone, Normal affect Lymphatics: No axilla or inguinal lymphadenopathy Assessment And Plan - Plan (1) Acute on chronic systolic (congestive) heart failure Onset Date: 09/01/17 Current Visit: No Status: Acute (2) COPD exacerbation Onset Date: 12/19/15 Current Visit: No Status: Acute (3) Coronary artery disease Onset Date: 01/26/18 Current Visit: No Status: Acute Qualifiers: (4) CAD (coronary artery disease) Onset Date: 03/18/16 Current Visit: No Status: Chronic Qualifiers: (5) History of prostate cancer Current Visit: No Status: Chronic (6) Hyperlipidemia Onset Date: 07/19/16 Current Visit: No Status: Chronic Qualifiers: (7) Hypertension Onset Date: 02/05/16 Current Visit: No Status: Chronic Qualifiers: (8) Nicotine dependence Onset Date: 04/03/17 Current Visit: No Status: Chronic Qualifiers: (9) Tobacco abuse Onset Date: 02/05/16 Current Visit: No Status: Chronic (10) Type 2 diabetes mellitus Onset Date: 12/10/16 Current Visit: No Status: Chronic Qualifiers: (11) Hypertensive urgency Onset Date: 11/15/16 Current Visit: No Status: Resolved - Plan 1. Continue on medication for strict blood pressure control; continue IV Lasix and will give angiotensin receptor vlad. 3. We will start patient on a Beta vlad 4. Cardiology consultation, recommendations appreciated 5. Gentle diuresis 6. Strict I's and O's 7. Daily weights 8. Monitor oxygen saturation 9. Counseled regarding tobacco cessation 10. Education regarding diet and treatment of congestive heart failure
[2018-05-17] MEDS: ACETAMINOPHEN 500 MG TAB PO PRN (20:49)
[2018-05-18] MEDS: ACETAMINOPHEN 500 MG TAB PO PRN (03:56)
[2018-05-18 06:41] LABS: Potassium 3.6 mmol/L (3.5-5.1)
[2018-05-18] MEDS: LOSARTAN POTASSIUM 50 MG TABLET PO SCH (08:36)
[2018-05-18] MEDS: FUROSEMIDE 40 MG/4 ML VIAL IV SCH (08:36)
[2018-05-18] MEDS: ASPIRIN EC 81 MG TAB PO SCH (08:36)
[2018-05-18] MEDS: METOPROLOL TAR 50 MG TAB PO SCH (08:36)
[2018-05-18] MEDS: CLOPIDOGREL 75 MG TABLET PO SCH (08:37)
[2018-05-18] MEDS: ENOXAPARIN 40 MG/0.4 ML SQ SCH (08:37)
[2018-05-18] MEDS ORDERED: POTASSIUM CL SA 10 MEQ TAB PO ONE (09:00)
[2018-05-18 09:11] VITALS: O2SAT 94
[2018-05-18 10:11] VITALS: BP 167/92; TEMP 97.6
== END 2018-05-18 11:28 | disposition home or self-care (01) ==
LOC: ER 19:54 → ERHOLD 05-16 00:11 → 2ND 05-16 00:26
PROVIDERS: ADMIT Hospitalist; ATTEND Hospitalist
DX: I11.0 Hypertensive heart disease with heart failure (principal); I50.23 Acute on chronic systolic (congestive) heart failure; E11.9 Type 2 diabetes mellitus without complications; I25.10 Atherosclerotic heart disease of native coronary artery without angina pectoris; J44.9 Chronic obstructive pulmonary disease, unspecified; E78.5 Hyperlipidemia, unspecified; F17.210 Nicotine dependence, cigarettes, uncomplicated; Z85.46 Personal history of malignant neoplasm of prostate; Z95.5 Presence of coronary angioplasty implant and graft; Z91.19 Patient's noncompliance with other medical treatment and regimen
CPT/HCPCS: 93005; 85025 ×2; 80048 ×3; 36415 ×3; 83735 ×2; 84100; 85610; 80076; 84484 ×2; 80053; 83880 ×3; 71045 ×2; 96374; 99285; J1940 ×6; J1650 ×3; J2930; G0378 ×2; J7512

== ENCOUNTER 2018-05-19 17:11 | Observation (INO) | payer OTHER ==
--- OUTSIDE RECORDS SUMMARY | 2018-05-19 17:13 | XMS REPORT ---
:1950 [facility] Address [address] [place] [address] Care Team Providers Name Role Phone Unavailable [...]
[2018-05-19 18:39] LABS: Arterial Blood Carboxyhemoglob 2.1 % (0-1.5); Blood Gas Oxyhemoglobin 94.1 % (94-97); Blood O2 Saturation 97.1 % (92-98.5)
[2018-05-19] MEDS ORDERED: IPRATROPIUM BROM 0.5MG/2.5ML ONE (18:49)
[2018-05-19] MEDS ORDERED: predniSONE 20 MG TAB ONE (18:49)
[2018-05-19] MEDS ORDERED: ALBUTEROL 2.5 MG/3 ML NEB SOL ONE (18:49)
[2018-05-19] MEDS ORDERED: METHYLPREDNISOLONE 125 MG INJ ONE (18:49)
[2018-05-19] MEDS ORDERED: FAMOTIDINE 20 MG/2 ML VIAL IV ONE (18:50)
[2018-05-19] MEDS ORDERED: Levofloxacin500mg IV 500 MG/100 ML BAG IV ONE (18:50)
[2018-05-19 18:54] LABS: Protime INR 1.35
[2018-05-19 19:06] LABS: Albumin 3.2 g/dL (3.4-5.0); Bilirubin Direct 0.2 mg/dL (0-0.2); Bilirubin Total 0.6 mg/dL (0.2-1.0); Magnesium 2.1 mg/dL (1.8-2.4); Troponin (Emerg Dept Use Only) 0.1 ng/mL (0.0-0.045)
--- NOTE | 2018-05-19 19:28 | EDPHYS ---
Physician Documentation [facility] Name: Mark Terrell Age: 67 yrs Sex: Male : 1950 Arrival Date: 05/19/2018 Time: 17:13 Bed 27 Private MD: None, None ED Physician Satish Catalan HPI: 05/19 18:07 This 67 yrs old Male presents to ER via Wheelchair with complaints of mónica Breathing Difficulty. 18:07 The patient has shortness of breath at rest, with light activity. Onset: The mónica symptoms/episode began/occurred 3 day(s) ago. Duration: The symptoms are continuous, and are steadily getting worse. The patient's shortness of breath has no apparent modifying factors. Associated signs and symptoms: Pertinent positives: non-productive cough, nausea. Severity of symptoms: At their worst the symptoms were mild moderate in the emergency department the symptoms have improved mildly. Historical: - Allergies: 17:20 Benadryl; sv - PMHx: 17:20 Aneurysm; BRAIN; Atrial Fib; Cancer; PROSTATE; CHF; COPD; Hypertension; Prostate Cancer;sv - PSHx: 17:20 brain; prostate; sv - Immunization history:: Flu vaccine is up to date. - Social history:: Smoking status: Patient uses tobacco products, smokes one-half pack cigarettes per day. - Ebola Screening: : No symptoms or risks identified at this time. ROS: 18:08 Constitutional: Negative for fever, chills, and weight loss, Eyes: Negative for injury, mónica pain, redness, and discharge, ENT: Negative for injury, pain, and discharge, Neck: Negative for injury, pain, and swelling, Abdomen/GI: Negative for abdominal pain, nausea, vomiting, diarrhea, and constipation, Back: Negative for injury and pain, : Negative for injury, bleeding, discharge, and swelling, MS/Extremity: Negative for injury and deformity, Skin: Negative for injury, rash, and discoloration, Psych: Negative for depression, anxiety, suicide ideation, homicidal ideation, and hallucinations, Allergy/Immunology: Negative for hives, rash, and allergies, Endocrine: Negative for neck swelling, polydipsia, polyuria, polyphagia, and marked weight changes, Hematologic/Lymphatic: Negative for swollen nodes, abnormal bleeding, and unusual bruising. 18:08 Cardiovascular: Positive for palpitations. 18:08 Respiratory: Positive for cough, shortness of breath, wheezing, expiratory. Exam: 18:08 Constitutional: This is a well developed, well nourished patient who is awake, alert, mónica and in no acute distress. Head/Face: Normocephalic, atraumatic. Eyes: Pupils equal round and reactive to light, extra-ocular motions intact. Lids and lashes normal. Conjunctiva and sclera are non-icteric and not injected. Cornea within normal limits. Periorbital areas with no swelling, redness, or edema. ENT: Nares patent. No nasal discharge, no septal abnormalities noted. Tympanic membranes are normal and external auditory canals are clear. Oropharynx with no redness, swelling, or masses, exudates, or evidence of obstruction, uvula midline. Mucous membranes moist. Neck: Trachea midline, no thyromegaly or masses palpated, and no cervical lymphadenopathy. Supple, full range of motion without nuchal rigidity, or vertebral point tenderness. No Meningismus. Chest/axilla: Normal chest wall appearance and motion. Nontender with no deformity. No lesions are appreciated. Abdomen/GI: Soft, non-tender, with normal bowel sounds. No distension or tympany. No guarding or rebound. No evidence of tenderness throughout. Back: No spinal tenderness. No costovertebral tenderness. Full range of motion. Male : Normal genitalia with no discharge or lesions. Skin: Warm, dry with normal turgor. Normal color with no rashes, no lesions, and no evidence of cellulitis. MS/ Extremity: Pulses equal, no cyanosis. Neurovascular intact. Full, normal range of motion. Psych: Awake, alert, with orientation to person, place and time. Behavior, mood, and affect are within normal limits. 18:08 Cardiovascular: Rate: tachycardic, Rhythm: regular, Pulses: Pulses are 4+ in bilateral radial, brachial, femoral, popliteal, posterior tibial and and dorsalis pedis arteries.. Heart sounds: normal, Edema: is not appreciated, JVD: is not appreciated. 18:08 Respiratory: mild respiratory distress is noted, Respirations: labored breathing, that is mild, Breath sounds: bronchial sounds, decreased breath sounds, rhonchi, wheezing: expiratory that is mild, that is moderate, is heard diffusely, Respiratory rate: 36 18:10 Musculoskeletal/extremity: DVT Exam: No signs of deep vein thrombosis. no pain, no mónica swelling, no tenderness, negative Homans' sign noted on exam, no appreciated bluish discoloration, no erythema, no increased warmth. Vital Signs: 17:20 BP 193 / 111; Pulse 101; Resp 36; Temp 98; Pulse Ox 96% ; Weight 75.75 kg; Height 5 ft. sv 11 in. (180.34 cm); 18:53 Pulse 94; Resp 18; Pulse Ox 98% on 2 lpm NC; mg2 17:20 Body Mass Index 23.29 (75.75 kg, 180.34 cm) sv MDM: 17:25 Patient medically screened. [facility] 18:10 Data reviewed: vital signs, nurses notes, lab test result(s), EKG, radiologic studies, [facility] plain films. 05/19 18:07 Order name: Basic Metabolic Panel; Complete Time: 19:21 [facility] 05/19 18:07 Order name: CBC with Diff [facility] 05/19 18:07 Order name: LFT's; Complete Time: 19:21 [facility] 05/19 18:07 Order name: Magnesium; Complete Time: 19:21 [facility] 05/19 18:07 Order name: NT PRO-BNP; Complete Time: 19:21 [facility] 05/19 18:07 Order name: PT-INR; Complete Time: 19:21 [facility] 05/19 18:07 Order name: Troponin (emerg Dept Use Only); Complete Time: 19:21 [facility] 05/19 18:07 Order name: XRAY Chest (1 view) [facility] 05/19 18:07 Order name: Blood Culture Adult (2) [facility] 05/19 18:07 Order name: Flu [facility] 05/19 18:07 Order name: ABG; Complete Time: 18:57 [facility] 05/19 20:15 Order name: Urine Dipstick--Ancillary (enter results) mw2 05/19 21:07 Order name: Urine Dipstick-Ancillary EDMS 05/19 18:07 Order name: EKG; Complete Time: 18:08 [facility] 05/19 18:07 Order name: Cardiac monitoring; Complete Time: 19:54 [facility] 05/19 18:07 Order name: EKG - Nurse/Tech; Complete Time: 19:54 [facility] 05/19 18:07 Order name: IV Saline Lock; Complete Time: 19:54 [facility] 05/19 18:07 Order name: Labs collected and sent; Complete Time: 19:54 [facility] 05/19 18:07 Order name: O2 Per Protocol; Complete Time: 19:54 [facility] 05/19 18:07 Order name: O2 Sat Monitoring; Complete Time: 19:54 [facility] 05/19 19:16 Order name: Labs - recollect needed; Complete Time: 19:51 mw2 Administered Medications: 18:14 Drug: predniSONE 20 mg Route: PO; ca1 18:15 Drug: Albuterol - atroVENT (3:1) (2.5 mg - 0.5 mg) 3 ml Route: Nebulizer; ca1 18:20 Drug: SOLU-Medrol 125 mg Route: IVP; Site: right antecubital; ca1 18:22 Drug: levofloxacin 500 mg Volume: 100 ml; Route: IVPB; Infused Over: 60 mins; Site: ca1 right antecubital; 18:25 Drug: Pepcid 20 mg Route: IVP; Site: right antecubital; ca1 19:32 Drug: Nitro-Bid Ointment 2 % 1 inches Route: Transdermal; Site: anterior chest wall; ca1 19:40 Drug: Lopressor (metoprolol TARTRATE) 50 mg Route: PO; ca1 19:40 Drug: Lovenox 70 mg Route: Sub-Q; Site: left lower abdomen; ca1 19:40 Drug: Aspirin 81 mg Route: PO; ca1 19:45 Drug: Lasix 40 mg Route: IVP; Site: right antecubital; ca1 Disposition: 05/19/18 19:27 Hospitalization ordered by Whit Fuentes for Inpatient Admission. Preliminary diagnosis are Cardiomegaly, Chronic obstructive pulmonary disease with (acute) exacerbation, Unspecified combined systolic (congestive) and diastolic (congestive) heart failure, Essential (primary) hypertension, Unspecified kidney failure, Anemia, unspecified. - Bed requested for Telemetry/MedSurg (Inpatient). - Status is Inpatient Admission. ca1 - Condition is Fair. - Problem is new. - Symptoms have improved. UTI on Admission? No Signatures: Dispatcher [employer] Nati Metzger RN RN Roseann Erickson RN RN mw Anderson, Corey, MD MD cha [place]brook, MyKena mw2 Sameera Contreras RN RN ca1 Corrections: (The following items were deleted from the chart) 20:31 19:27 Hospitalization Ordered by Whit Fuentes MD for Inpatient Admission. Preliminary mw diagnosis is Cardiomegaly; Chronic obstructive pulmonary disease with (acute) exacerbation; Unspecified combined systolic (congestive) and diastolic (congestive) heart failure; Essential (primary) hypertension; Unspecified kidney failure; Anemia, unspecified. Bed requested for Telemetry/MedSurg (Inpatient). Status is Inpatient Admission. Condition is Fair. Problem is new. Symptoms have improved. UTI on Admission? No. mónica 21:29 20:31 05/19/2018 19:27 Hospitalization Ordered by Whit Fuentes MD for Inpatient ca1 Admission. Preliminary diagnosis is Cardiomegaly; Chronic obstructive pulmonary disease with (acute) exacerbation; Unspecified combined systolic (congestive) and diastolic (congestive) heart failure; Essential (primary) hypertension; Unspecified kidney failure; Anemia, unspecified. Bed requested for Telemetry/MedSurg (Inpatient). Status is Inpatient Admission. Condition is Fair. Problem is new. Symptoms have improved. UTI on Admission? No. mw
--- NOTE | 2018-05-19 19:28 | ER ---
Nurse's Notes [facility] Name: Mark Terrell Age: 67 yrs Sex: Male : 1950 Arrival Date: 05/19/2018 Time: 17:13 Bed 27 Private MD: None, None Diagnosis: Cardiomegaly;Chronic obstructive pulmonary disease with (acute) exacerbation;Unspecified combined systolic (congestive) and diastolic (congestive) heart failure;Essential (primary) hypertension;Unspecified kidney failure;Anemia, unspecified Presentation: 05/19 17:18 Presenting complaint: Patient states: SOB started about 1.5 hrs ago. Transition of sv care: patient was not received from another setting of care. Onset of symptoms was May 19, 2018. Care prior to arrival: None. 17:18 Method Of Arrival: Wheelchair sv 17:18 Acuity: ARIEL 2 sv 17:30 Risk Assessment: Do you want to hurt yourself or someone else? Patient reports no ca1 desire to harm self or others. 17:30 Initial Sepsis Screen: Does the patient meet any 2 criteria? RR > 20 per min. Does the ca1 patient have a suspected source of infection? Yes: Productive cough/pneumonia. Triage Assessment: 17:18 General: Appears in no apparent distress. unkempt, Behavior is calm, cooperative, sv appropriate for age. Neuro: Level of Consciousness is awake, alert, obeys commands, Oriented to person, place, time, situation, Moves all extremities. Full function Gait is steady. Respiratory: Reports shortness of breath at rest on exertion since 1.5 hrs ago Airway is patent Respiratory effort is even, labored, Respiratory pattern is symmetrical, tachypnea Onset: The symptoms/episode began/occurred suddenly, the patient has moderate shortness of breath. Historical: - Allergies: 17:20 Benadryl; sv - PMHx: 17:20 Aneurysm; BRAIN; Atrial Fib; Cancer; PROSTATE; CHF; COPD; Hypertension; Prostate Cancer;sv - PSHx: 17:20 brain; prostate; sv - Immunization history:: Flu vaccine is up to date. - Social history:: Smoking status: Patient uses tobacco products, smokes one-half pack cigarettes per day. - Ebola Screening: : No symptoms or risks identified at this time. Screenin:30 Abuse screen: Denies threats or abuse. Denies injuries from another. Nutritional ca1 screening: No deficits noted. Tuberculosis screening: No symptoms or risk factors identified. Fall Risk IV access (20 points). Assessment: 17:30 General: Appears in no apparent distress. uncomfortable, ill, unkempt, Behavior is ca1 calm, cooperative, appropriate for age. Pain: Denies pain. Neuro: Level of Consciousness is awake, alert, obeys commands, Oriented to person, place, time, situation. Cardiovascular: Heart tones S1 S2 present Capillary refill < 3 seconds Patient's skin is warm and dry. Rhythm is sinus rhythm. Respiratory: Reports shortness of breath Airway is patent Respiratory effort is even, unlabored, Respiratory pattern is regular, symmetrical, Breath sounds with wheezes bilaterally. Onset: The symptoms/episode began/occurred yesterday, the patient has moderate shortness of breath. GI: Abdomen is round non-distended, Bowel sounds present X 4 quads. Abd is soft and non tender X 4 quads. : No deficits noted. No signs and/or symptoms were reported regarding the genitourinary system. EENT: No deficits noted. No signs and/or symptoms were reported regarding the EENT system. Derm: Skin is intact, is healthy with good turgor, Skin is pink, warm \T\ dry. Musculoskeletal: Circulation, motion, and sensation intact. Capillary refill < 3 seconds. 18:25 Reassessment: Patient appears in no apparent distress at this time. Patient and/or ca1 family updated on plan of care and expected duration. Pain level reassessed. Patient is alert, oriented x 3, equal unlabored respirations, skin warm/dry/pink. 19:30 Reassessment: Patient appears in no apparent distress at this time. Patient and/or ca1 family updated on plan of care and expected duration. Pain level reassessed. Patient is alert, oriented x 3, equal unlabored respirations, skin warm/dry/pink. 20:25 Reassessment: Patient appears in no apparent distress at this time. Patient and/or ca1 family updated on plan of care and expected duration. Pain level reassessed. Patient is alert, oriented x 3, equal unlabored respirations, skin warm/dry/pink. 21:00 Reassessment: Patient appears in no apparent distress at this time. Patient and/or ca1 family updated on plan of care and expected duration. Pain level reassessed. Patient is alert, oriented x 3, equal unlabored respirations, skin warm/dry/pink. 21:40 Reassessment: pt transferred to room 204 via wheelchair on oxygen bedside report given bb to Maria De Jesus METZ. Vital Signs: 17:20 BP 193 / 111; Pulse 101; Resp 36; Temp 98; Pulse Ox 96% ; Weight 75.75 kg; Height 5 ft. sv 11 in. (180.34 cm); 18:53 Pulse 94; Resp 18; Pulse Ox 98% on 2 lpm NC; mg2 17:20 Body Mass Index 23.29 (75.75 kg, 180.34 cm) sv ED Course: 17:13 Patient arrived in ED. mr 17:14 None, None is Private Physician. mr 17:20 Triage completed. sv 17:21 Arm band placed on. sv 17:25 Satish Catalan MD is Attending Physician. mónica 17:25 Sameera Contreras, LASHAY is Primary Nurse. ca1 17:30 Patient has correct armband on for positive identification. Placed in gown. Bed in low ca1 position. Call light in reach. Side rails up X2. potline monitor on. Pulse ox on. NIBP on. Warm blanket given. 18:11 EKG done, by technical services coordinator. reviewed by Satish Catalan MD. sm3 18:15 Inserted saline lock: 20 gauge in right antecubital area, using aseptic technique. ca1 Blood collected. 19:08 X-ray completed. Portable x-ray completed in exam room. Patient tolerated procedure ml well. 19:10 XRAY Chest (1 view) In Process Unspecified. EDMS 19:25 Whit Fuentes MD is Hospitalizing Provider. mónica 21:20 No provider procedures requiring assistance completed. ca1 21:20 Patient admitted, IV remains in place. ca1 Administered Medications: 18:14 Drug: predniSONE 20 mg Route: PO; ca1 18:15 Drug: Albuterol - atroVENT (3:1) (2.5 mg - 0.5 mg) 3 ml Route: Nebulizer; ca1 18:20 Drug: SOLU-Medrol 125 mg Route: IVP; Site: right antecubital; ca1 18:22 Drug: levofloxacin 500 mg Volume: 100 ml; Route: IVPB; Infused Over: 60 mins; Site: ca1 right antecubital; 18:25 Drug: Pepcid 20 mg Route: IVP; Site: right antecubital; ca1 19:32 Drug: Nitro-Bid Ointment 2 % 1 inches Route: Transdermal; Site: anterior chest wall; ca1 19:40 Drug: Lopressor (metoprolol TARTRATE) 50 mg Route: PO; ca1 19:40 Drug: Lovenox 70 mg Route: Sub-Q; Site: left lower abdomen; ca1 19:40 Drug: Aspirin 81 mg Route: PO; ca1 19:45 Drug: Lasix 40 mg Route: IVP; Site: right antecubital; ca1 Output: 21:00 Urine: 1600ml (Voided); Total: 1600ml. ca1 Outcome: 19:27 Decision to Hospitalize by Provider. [facility] 21:20 Admitted to Med/surg accompanied by nurse, via wheelchair, room 204, with oxygen, on ca1 monitor, with chart, Report called to given by Ms. Miguel at bedside in the 2nd floor 21:20 Condition: stable ca1 21:20 Instructed on the need for admit. 21:29 Patient left the ED. ca1 Signatures: Dispatcher [employer] EDMS Nati Marquez, RN Satish French MD MD cha Rivera, Myriam Chaudhari, RN Annetta Cuenca Michele, RN RN mg2 Montes, Shakira [facility] Sameera Contreras RN RN ca1 Corrections: (The following items were deleted from the chart) 17:21 17:18 Acuity: ARIEL 4 sv sv 20:11 20:06 General: Appears in no apparent distress. comfortable, unkempt, Behavior is calm, ca1 cooperative, appropriate for age, ca1 20:11 20:06 Pain: Denies pain. ca1 ca1 20:15 18:30 Inserted saline lock: 20 gauge in right antecubital area, using aseptic ca1 technique. Blood collected. ca1 23:48 23:47 No provider procedures requiring assistance completed. ca1 ca1 23:50 21:20 Admitted to Med/surg accompanied by nurse, via wheelchair, room 221, with oxygen, ca1 on monitor, with chart, Report called to given by Ms. Miguel at bedside in the 2nd floor ca1
[2018-05-19] MEDS ORDERED: FUROSEMIDE 40 MG/4 ML VIAL IV ONE (19:37)
[2018-05-19] MEDS ORDERED: NITROGLYCERIN 1 GM PKT TD ONE (19:37)
--- NOTE | 2018-05-19 19:37 | RAD REPORT ---
EXAM DESCRIPTION: Neo Single View05/19/2018 7:10 pm CLINICAL HISTORY: Shortness of breath COMPARISON: May 2018 FINDINGS: Bilateral pulmonary opacities left greater than right are seen. The heart is moderately e nlarged IMPRESSION: These findings probably represent mild to moderate CHF
[2018-05-19] MEDS ORDERED: ASPIRIN EC 81 MG TAB PO ONE (19:49)
[2018-05-19] MEDS ORDERED: METOPROLOL TAR 50 MG TAB ONE (19:50)
[2018-05-19] MEDS ORDERED: ENOXAPARIN 80 MG/0.8 ML SQ ONE (19:51)
--- NOTE | 2018-05-19 19:53 | P.HP ---
Certification for Inpatient Patient admitted to: Inpatient With expected LOS: >2 Midnights Practitioner: I am a practitioner with admitting privileges, knowledge of patient current condition, hospital course, and medical plan of care. Services: Services provided to patient in accordance with Admission requirements found in Title 42 Section 412.3 of the Code of Federal Regulations Patient History Date of Service: 05/19/18 Reason for admission: pulmonary edema History of Present Illness: Mr Terrell is a 67 years old male, with multiple medical problems, including HTN, chronic combined systolic and diastolic CHF, COPD, tobacco abuse, well known for our service due to recurrent admission for CHF exacerbation secondary to non-compliance with his medical treatment, who start this morning with progressive SOB. He denied fever or chills, no more cough than usual, no chest pain. At arrival to ED, he was significantly dyspneic, his RR was 39, O2 sat 96 % on RA, most of the lab is still pending, CXR remarkable for pulmonary edema. Afebrile in ED. Allergies diphenhydramine HCl [From Benadryl] Adverse Reaction (Intermediate, Verified 03:35) Hives Home medications list reviewed: Yes Home Medications: NK [No Home Meds] 05/16/18 - Past Medical/Surgical History Diabetic: No -: History of prostate cancer -: Hypertension -: History of brain aneurysm requiring surgery -: CHF, systolic dysfunction -: COPD -: Tobacco abuse -: hyperlipidemia -: Coronary disease, stents x3 to LAD/RCA(Feb 2016) -: anemia -: GERD -: anemia -: hyperlipidemia -: Prostate surgery -: Brain aneurysm surgery -: Toe surgery R. great toe/childhood -: Heart catheterization-3stents LAD/RCA Psychosocial/ Personal History: He is single, lives alone. He has no children. 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 - Family History Father -: Cancer Notes: brain cancer Mother -: Cancer Notes: pancreatic cancer Brother -: Cancer Notes: lung cancer - Social History Smoking Status: Current every day smoker Counseled patient to stop smoking for: less than 10 minutes Smoking therapy provided: Yes Patient receptive to therapy: Yes Alcohol use: No CD- Drugs: No Caffeine use: Yes Place of Residence: Home (hotel) Review of Systems 10-point ROS is otherwise unremarkable Physical Examination - Physical Exam General: Alert, In no apparent distress HEENT: Atraumatic, PERRLA, Mucous membr. moist/pink, EOMI, Sclerae nonicteric Neck: Supple, 2+ carotid pulse no bruit, No LAD, Without JVD or thyroid abnormality Respiratory: Diminished, Crackles/rales (bibasilar rales) Cardiovascular: Normal S1 S2, No gallops Gastrointestinal: Normal bowel sounds, No tenderness Musculoskeletal: No tenderness, Swelling (bilateral LE edema 2+) Integumentary: No rashes Neurological: Normal speech, Normal strength at 5/5 x4 extr, Normal tone, Normal affect Lymphatics: No axilla or inguinal lymphadenopathy - Studies Laboratory Data (last 24 hrs) 05/19/18 18:23: PT 15.7 H, INR 1.35 05/19/18 18:23: Sodium 144, Potassium 4.0, BUN 29 H, Creatinine 1.36 H, Glucose 147 H, Magnesium 2.1, Total Bilirubin 0.6, AST 22, ALT 37, Alkaline Phosphatase 112 Microbiology Data (last 24 hrs): 05/19/18 18:23 Nasopharnyx Influenza Type A Antigen Screen - Final 05/19/18 18:23 Nasopharnyx Influenza Type B Antigen Screen - Final Assessment and Plan - Problems (Diagnosis) (1) Pulmonary edema Current Visit: Yes Status: Acute Qualifiers: Chronicity: acute Qualified Code(s): J81.0 - Acute pulmonary edema (2) Acute on chronic systolic (congestive) heart failure Onset Date: 09/01/17 Current Visit: No Status: Acute (3) CAD (coronary artery disease) Current Visit: No Status: Chronic Qualifiers: Coronary Disease-Associated Artery/Lesion type: [place] artery [place] vs. transplanted heart: hoopa heart Associated angina: without angina Qualified Code(s): I25.10 - Atherosclerotic heart disease of [place] coronary artery without angina pectoris (4) COPD (chronic obstructive pulmonary disease) Onset Date: 03/21/15 Current Visit: No Status: Chronic Qualifiers: COPD type: unspecified COPD Qualified Code(s): J44.9 - Chronic obstructive pulmonary disease, unspecified (5) Hypertension Onset Date: 02/05/16 Current Visit: No Status: Chronic Qualifiers: Hypertension type: essential hypertension (6) Noncompliance Onset Date: 03/18/16 Current Visit: No Status: Chronic (7) Tobacco abuse Onset Date: 02/05/16 Current Visit: No Status: Chronic - Plan The patient will be admitted to the hospital due to pulmonary edema, secondary to non-compliance with medical treatment. No chest pain, normal trop I, EKG no acute ST-T changes. Will transfer the patient to ICU for close monitoring, start IV Lasix, Nitropaste, will resume his home medication when verified. Close monitoring of his body fluid balance. - Advance Directives Does patient have a Living Will: No Does patient have a Durable POA for Healthcare: No - Code Status/Comfort Care Code Status Assessed: Yes Code Status: Full Code
[2018-05-19 21:06] LABS: Urine Blood NEGATIVE (NEG); Urine Glucose NEGATIVE (NEG); Urine Protein 2+ (NEG)
[2018-05-19] MEDS ORDERED: HYDRALAZINE HCL 20 MG/ML VIAL IV PRN (21:37)
[2018-05-19] MEDS ORDERED: NICOTINE 21 MG/PAT TD PRN (21:37)
[2018-05-19] MEDS ORDERED: ONDANSETRON 4 MG/2 ML VIAL IV PRN (21:37)
[2018-05-19 21:41] LABS: Anisocytosis 2+; Blood Morphology Comment NOTED (NOT SEEN); Hypochromasia 2+; Platelet Estimate ADEQ
[2018-05-19 21:42] LABS: Ovalocytes 1+; Rouleau NOTED
[2018-05-19 22:00] VITALS: BMI 23.7
[2018-05-20] MEDS: NITROGLYCERIN 1 GM PKT TD SCH ×2 (00:37→05:53)
[2018-05-20] MEDS ORDERED: FUROSEMIDE 40 MG/4 ML VIAL IV SCH ×2 (01:00→09:00)
[2018-05-20 06:41] LABS: Hematocrit 33.3 % (39.6-49.0)
[2018-05-20 06:55] LABS: Potassium 3.4 mmol/L (3.5-5.1)
[2018-05-20] MEDS ORDERED: IPRATROPIUM BROM 0.5MG/2.5ML NEB PRN (07:06)
[2018-05-20] MEDS ORDERED: ALBUTEROL INHALER 60 PUFF/8 GM IH PRN (07:14)
--- NOTE | 2018-05-20 07:44 | EKG ---
Test Date: 2018-05-19 Test Time: 17:41:09 Crowd Controller: JOHANA MEASUREMENT RESULTS: Intervals: Rate: 98 WY: 140 QRSD: 118 QT: 392 QTc: 500 [place]: P: 76 WY: 140 QRS: 92 T: 31 INTERPRETIVE STATEMENTS: Normal sinus rhythm Rightward axis Nonspecific intraventricular conduction delay Prolonged QT Abnormal ECG Compared to ECG 05/15/2018 21:16:36 Right-axis deviation now present Intraventricular conduction delay now present Electronically Signed On 05-20-18 07:43:49 CDT by Jitendra Willams
--- NOTE | 2018-05-20 08:42 | RAD REPORT ---
EXAM DESCRIPTION: Neo Estrada And Lat (2 Views)05/20/2018 8:11 am CLINICAL HISTORY: Shortness of breath COMPARISON: May 19 FINDINGS: No significant change in the [id number] bilateral pulmonary opacities. Small left p leural effusion Heart remains enlarged Subacute left rib fractures noted IMPRESSION: No significant change in mild to moderate pulmonary edema
[2018-05-20] MEDS ORDERED: ENOXAPARIN 40 MG/0.4 ML SQ SCH (09:00)
[2018-05-20] MEDS ORDERED: POTASSIUM 25 MEQ EFFERV TAB PO ONE (09:00)
[2018-05-20] MEDS ORDERED: LISINOPRIL 10 MG TAB PO SCH (09:00)
[2018-05-20] MEDS ORDERED: DULERA 200/5 (MOMETASONE/FORMOTEROL) INHALER IH SCH (09:00)
--- NOTE | 2018-05-20 09:00 | P.DS ---
Admission Date: 05/19/18 Discharge Date: 05/20/18 Primary Care Provider: none Disposition: ROUTINE DISCHARGE Discharge Condition: GOOD Reason for Admission: pulmonary edema Consultations: none Procedures: CXR: FINDINGS: Bilateral pulmonary opacities left greater than right are seen. The heart is moderately enlarged IMPRESSION: These findings probably represent mild to moderate CHF Medical Problem List: Acute on chronic systolic CHF with pulmonary edema complicated with noncompliance of medication and follow up Hypertension COPD Chronic renal disease, stage III Tobacco abuse Anemia of chronic disease Poor social situation Brief History of Present Illness: 67-year-old male presents to the emergency room with shortness of breath. Patient was tachypneic. Room-air saturations stable. Patient with history of chronic CHF, COPD, hypertension, tobacco abuse and noncompliance with follow-up and medication. Patient with multiple prior admissions for acute on chronic systolic CHF. Patient admits not taking his medication. He is homeless and lives in the [facility]. He has not followed up with any PCP. BNP and troponin elevated due to acute on chronic CHF. Patient was admitted for treatment Hospital Course: Patient presents with shortness of breath secondary to acute on chronic systolic CHF with pulmonary edema. Patient was tachypneic. He was given diuretic treatment with significant improvement. At discharge he is without any significant shortness of breath. He does not require oxygen at this time. Patient no longer with tachypnea. Compliance with medication and follow up addressed in detail with the patient. Patient understands this. He understands the risks of poor follow up and not taking his medications. He will try to make arrangements. Social work consulted to help with follow up with a PCP and with possible help of his medications. At discharge patient will continue with aspirin 81 mg daily, Lasix 40 mg 1 pill twice daily. Patient will need to continue with a 1500 cc per day fluid restriction and low- salt diet. He is to monitor his weight daily. If his weight increases by more than 5 lb further adjustment in Lasix may be required. Again compliance with medication and follow up addressed with patient. Patient with COPD. This has remained stable. Patient will continue with Dulera 2 puffs twice daily and Pro air 2 puffs 3 times a day as needed for shortness of breath. Compliance with medication addressed Patient with hypertension. As recommended in the past medication was started. Patient will continue with metoprolol 25 mg 1 pill twice daily and lisinopril 10 mg daily. Recommend to maintain blood pressures less 150/80. Further adjustment can be done by his PCP. Compliance with Medication addressed. Patient with tobacco abuse. Tobacco cessation addressed in detail. Patient with chronic renal disease, stage III. This has remained stable. Recommend no further use of nonsteroidal anti-inflammatories. Future medications will need to be renally dose. Recommend to recheck lab-BMP in 2-4 weeks to monitor his progress. Patient may benefit with nephrology evaluation as an outpatient to further monitor. Vital Signs/Physical Exam: Temp Pulse Resp BP Pulse Ox 97.4 F 88 18 187/90 H 98 05/20/18 08:00 05/20/18 08:49 05/20/18 08:00 05/20/18 08:49 05/20/18 08:00 General: Alert, In no apparent distress, Oriented x3, Cooperative HEENT: Atraumatic, Mucous membr. moist/pink Neck: Supple Respiratory: Clear to auscultation bilaterally (Anteriorly), Other (Minimal crackles to the bases. Patient ambulating without significant shortness of breath.) Cardiovascular: Normal pulses, Regular rate/rhythm Gastrointestinal: Normal bowel sounds, Soft and benign, Non-distended, No tenderness, No masses, No rebound, No guarding Musculoskeletal: No erythema, No tenderness, No warmth Integumentary: No tenderness/swelling, No erythema, No warmth, No cyanosis Neurological: Normal speech, Normal strength at 5/5 x4 extr, Normal tone, Normal affect Laboratory Data at Discharge: WBC 7.5 K/uL (4.3-10.9) D 05/20/18 06:04 Hgb 9.9 g/dL (13.6-17.9) L 05/20/18 06:04 Hct 33.3 % (39.6-49.0) L 05/20/18 06:04 Plt Count 359 K/uL (152-406) 05/20/18 06:04 PT 15.7 SECONDS (9.5-12.5) H 05/19/18 18:23 INR 1.35 05/19/18 18:23 Sodium 142 mmol/L (136-145) 05/20/18 06:04 Potassium 3.4 mmol/L (3.5-5.1) L 05/20/18 06:04 BUN 28 mg/dL (7-18) H 05/20/18 06:04 Creatinine 1.32 mg/dL (0.55-1.3) H 05/20/18 06:04 Glucose 269 mg/dL (74-106) H 05/20/18 06:04 Magnesium 2.1 mg/dL (1.8-2.4) 05/19/18 18:23 Total Bilirubin 0.6 mg/dL (0.2-1.0) 05/19/18 18:23 AST 22 U/L (15-37) 05/19/18 18:23 ALT 37 U/L (12-78) 05/19/18 18:23 Alkaline Phosphatase 112 U/L (45-117) 05/19/18 18:23 Home Medications: Albuterol Inhaler [Ventolin Inhaler*] 2 puff IH TID PRN #1 hfa.aer.ad 05/20/18 Aspirin [Aspirin EC 81 MG] 81 mg PO DAILY #30 tablet. 05/20/18 Furosemide [Lasix] 40 mg PO BIDL #60 tab 05/20/18 Lisinopril [Prinivil*] 10 mg PO DAILY #30 tab 05/20/18 Metoprolol Tartrate [Lopressor*] 25 mg PO BID 6AM 6PM #60 tab 05/20/18 Mometasone/Formoterol [Dulera 200 Mcg/5 Mcg Inhaler] 2 puff IH BID #1 inhaler New Medications: Albuterol Inhaler [Ventolin Inhaler*] 2 puff IH TID PRN #1 hfa.aer.ad PRN Reason: Shortness Of Breath Aspirin [Aspirin EC 81 MG] 81 mg PO DAILY #30 tablet. Furosemide [Lasix] 40 mg PO BIDL #60 tab Lisinopril [Prinivil*] 10 mg PO DAILY #30 tab Metoprolol Tartrate [Lopressor*] 25 mg PO BID 6AM 6PM #60 tab Mometasone/Formoterol [Dulera 200 Mcg/5 Mcg Inhaler] 2 puff IH BID #1 inhaler Patient Discharge Instructions: 1. Patient will need to establish care with a PCP to follow up this hospitalization. 2. Patient presents with shortness of breath secondary to acute on chronic systolic CHF with pulmonary edema. Patient was tachypneic. He was given diuretic treatment with significant improvement. At discharge he is without any significant shortness of breath. He does not require oxygen at this time. Patient no longer with tachypnea. Compliance with medication and follow up addressed in detail with the patient. Patient understands this. He understands the risks of poor follow up and not taking his medications. He will try to make arrangements. Social work consulted to help with follow up with a PCP and with possible help of his medications. At discharge patient will continue with aspirin 81 mg daily, Lasix 40 mg 1 pill twice daily. Patient will need to continue with a 1500 cc per day fluid restriction and low-salt diet. He is to monitor his weight daily. If his weight increases by more than 5 lb further adjustment in Lasix may be required. Again compliance with medication and follow up addressed with patient. 3. Patient with COPD. This has remained stable. Patient will continue with Dulera 2 puffs twice daily and Pro air 2 puffs 3 times a day as needed for shortness of breath. Compliance with medication addressed. 4. Patient with hypertension. As recommended in the past medication was started. Patient will continue with metoprolol 25 mg 1 pill twice daily and lisinopril 10 mg daily. Recommend to maintain blood pressures less 150/80. Further adjustment can be done by his PCP. Compliance with Medication addressed. 5. Patient with tobacco abuse. Tobacco cessation addressed in detail. 6. Patient with chronic renal disease, stage III. This has remained stable. Recommend no further use of nonsteroidal anti-inflammatories. Future medications will need to be renally dose. Recommend to recheck lab-BMP in 2-4 weeks to monitor his progress. Patient may benefit with nephrology evaluation as an outpatient to further monitor. Diet: 1500 cc per day fluid restriction Activity: Fall precautions Time spent managing pt's care (in minutes): 55
[2018-05-20 10:30] VITALS: O2SAT 98
[2018-05-20 10:48] LABS: Platelet Estimate ADEQ
[2018-05-20 10:49] LABS: Anisocytosis 2+; Blood Morphology Comment NOTED (NOT SEEN); Hypochromasia 2+; Poikilocytosis 1+
[2018-05-20 12:01] VITALS: BP 171/85; TEMP 98.3
[2018-05-20] MEDS ORDERED: METOPROLOL TAR 25 MG TAB PO SCH (18:00)
== END 2018-05-20 12:30 | disposition home or self-care (01) ==
LOC: ER 17:11 → ERHOLD 19:44 → INTOOBSV 19:44 → 2ND 21:40
PROVIDERS: ADMIT Internal Medicine; ATTEND Internal Medicine
DX: I13.0 Hypertensive heart and chronic kidney disease with heart failure and stage 1 through stage 4 chronic kidney disease, or unspecified chronic kidney disease (principal); I50.23 Acute on chronic systolic (congestive) heart failure; N18.3 Chronic kidney disease, stage 3 (moderate); J44.9 Chronic obstructive pulmonary disease, unspecified; D63.1 Anemia in chronic kidney disease; F17.210 Nicotine dependence, cigarettes, uncomplicated; Z91.14 Patient's other noncompliance with medication regimen; Z59.0 Homelessness; Z85.46 Personal history of malignant neoplasm of prostate; Z95.5 Presence of coronary angioplasty implant and graft
CPT/HCPCS: 93005; 87040 ×2; 85025 ×2; 80048 ×2; 36415; 83735; 85610; 80076; 81003; 84484; 83880; 87804 ×2; 71045; 71046; 94640; 82805; 94760; 96375; 96372; 96374; 99285; J0360; J1940 ×3; J1650 ×2; J2930; G0378 ×2; J7512; J7606

== ENCOUNTER 2018-05-26 16:22 | Emergency (ER) | payer OTHER ==
--- OUTSIDE RECORDS SUMMARY | 2018-05-26 16:24 | XMS REPORT ---
:1950 Author Organization [facility] Address [address] [place] [address] Care Team Providers Name Role Phone Unavailable [...]
[2018-05-26] MEDS ORDERED: LEVALBUTEROL 1.25 MG/3 ML NEB ONE (17:54)
--- NOTE | 2018-05-26 18:11 | RAD REPORT ---
EXAM DESCRIPTION: Neo Single View05/26/2018 5:58 pm CLINICAL HISTORY: Shortness of breath COMPARISON: May 20, 2018 FINDINGS: Mild bilateral pulmonary opacities. The heart is moderately enlarged IMPRESSION: Mild CHF
[2018-05-26 18:18] LABS: Albumin 3.6 g/dL (3.4-5.0); Bilirubin Direct 0.3 mg/dL (0-0.2); Bilirubin Total 0.9 mg/dL (0.2-1.0); Magnesium 2.1 mg/dL (1.8-2.4); Potassium 3.6 mmol/L (3.5-5.1); Protein, Total 6.6 g/dL (6.4-8.2); Troponin (Emerg Dept Use Only) 0.06 ng/mL (0.0-0.045)
[2018-05-26 20:12] LABS: Absolute Lymphocytes (CBC) 2.2 K/uL (0.7-4.9); Absolute Monocytes 1.1 K/uL (0.1-1.3); Absolute Neutrophil 5.7 K/uL (1.8-8.0); Basophils % 0.7 % (0-1.3); Eosinophils % 1.4 % (0-4.4); Hematocrit 31.4 % (39.6-49.0); Lymphocytes % 24.3 % (15.3-44.8); MPV 9.1 fL (7.6-11.3); Monocytes % 11.7 % (3.3-12.3); RBC Red Blood Cell Count 5.05 M/uL (4.33-5.43)
[2018-05-26 20:14] LABS: Protime INR 1.35
[2018-05-26 20:49] LABS: Anisocytosis 1+; Blood Morphology Comment NOTED (NOT SEEN); Hypochromasia 3+; Platelet Estimate ADEQ; Polychromasia SLIGHT; Target Cells FEW; Urine White Blood Cell Casts OK
--- NOTE | 2018-05-26 21:30 | EDPHYS ---
Physician Documentation [facility] Name: Mark Terrell Age: 67 yrs Sex: Male : 1950 Arrival Date: 05/26/2018 Time: 16:27 Bed 17 Private MD: ED Physician Eric Ochoa HPI: 05/26 17:35 This 67 yrs old Male presents to ER via EMS with complaints of Shortness Of jmm Breath. 17:35 The patient has shortness of breath at rest. Onset: The symptoms/episode began/occurred jmm gradually, 1 hour(s) ago. Duration: The symptoms are continuous. This is a 67 year old male with a history of chf, copd that presents to the ED with complaints of CHF, COPD, HTN that presents to the ED with complaints of mild shortness of breath beginning approx 1 hour prior to arrival. Patient denies chest pain. . Historical: - Allergies: 16:29 Benadryl; hb - PMHx: 16:29 Aneurysm; BRAIN; Atrial Fib; Cancer; PROSTATE; CHF; COPD; Hypertension; Prostate Cancer;hb - PSHx: 16:29 brain; prostate; hb - Immunization history:: Adult Immunizations up to date. - Social history:: Smoking status: Patient uses tobacco products, smokes one-half pack cigarettes per day. - Ebola Screening: : No symptoms or risks identified at this time. ROS: 17:35 Constitutional: Negative for fever, chills, and weight loss, Cardiovascular: Negative jmm for chest pain, palpitations, and edema. 17:35 Abdomen/GI: Negative for abdominal pain, nausea, vomiting, diarrhea, and constipation, Back: Negative for injury and pain, Neuro: Negative for headache, weakness, numbness, tingling, and seizure. 17:35 Respiratory: Positive for shortness of breath. 17:35 All other systems are negative. Exam: 17:35 Constitutional: This is a well developed, well nourished patient who is awake, alert, jmm and in no acute distress. Head/Face: atraumatic. Eyes: EOMI, no conjunctival erythema appreciated ENT: Moist Mucus Membranes Neck: Trachea midline, Supple Chest/axilla: Normal chest wall appearance and motion. 17:35 Back: Normal ROM Skin: General appearance color normal MS/ Extremity: Moves all extremities, no obvious deformities appreciated, no edema noted to the lower extremities Neuro: Awake and alert, normal gait Psych: Behavior is normal, Mood is normal, Patient is cooperative and pleasant 17:35 Cardiovascular: Rate: normal, Rhythm: regular, Pulses: no pulse deficits are appreciated. 17:35 Respiratory: the patient does not display signs of respiratory distress, Respirations: normal, Breath sounds: are clear throughout. 17:35 Abdomen/GI: Inspection: abdomen appears normal, Bowel sounds: normal, Palpation: abdomen is soft and non-tender. Vital Signs: 16:29 BP 177 / 109; Pulse 88; Resp 20; Temp 98.6; Pulse Ox 98% on R/A; Pain 2/10; hb 17:30 BP 173 / 105; Pulse 105; Resp 20; Pulse Ox 97% on Nebulizer Mask; hb 18:30 BP 173 / 112; Pulse 90; Resp 18; Pulse Ox 99% on R/A; hb 19:53 BP 172 / 88; Pulse 95; Resp 18; Pulse Ox 93% on R/A; ed1 21:01 BP 183 / 92; Pulse 92; Resp 18; Pulse Ox 96% on R/A; Pain 3/10; ed1 MDM: 17:35 Patient medically screened. [facility] 21:28 Data reviewed: vital signs, nurses notes. Test interpretation: by ED physician or [facility] midlevel provider: ECG. Counseling: I had a detailed discussion with the patient and/or guardian regarding: the historical points, exam findings, and any diagnostic results supporting the discharge/admit diagnosis, lab results, radiology results, the need for outpatient follow up, to return to the emergency department if symptoms worsen or persist or if there are any questions or concerns that arise at home. 21:28 Data reviewed: lab test result(s), EKG, radiologic studies, plain films. [facility] 21:28 Data interpreted: Pulse oximetry: on room air is 96 %. Interpretation: normal. ED [facility] course: Patient is alert and non toxic in appearance in the ED. Patient shows no signs of respiratory distress. Patient states he feels much better after neb treatment. Troponin levels appear consistent with previous evaluations. I do not currently suspect ACS. patient given strict return precautions. patient understood and agrees with the plan of care. . 05/26 17:38 Order name: Basic Metabolic Panel; Complete Time: 18:53 [facility] 05/26 17:38 Order name: CBC with Diff; Complete Time: 20:51 [facility] 05/26 17:38 Order name: LFT's; Complete Time: 18:53 [facility] 05/26 17:38 Order name: Magnesium; Complete Time: 18:53 [facility] 05/26 17:38 Order name: NT PRO-BNP; Complete Time: 18:53 [facility] 05/26 17:38 Order name: PT-INR; Complete Time: 20:32 [facility] 05/26 17:38 Order name: Troponin (emerg Dept Use Only); Complete Time: 18:53 [facility] 05/26 17:38 Order name: XRAY Chest (1 view); Complete Time: 18:15 [facility] 05/26 17:38 Order name: EKG; Complete Time: 17:38 [facility] 05/26 17:38 Order name: Cardiac monitoring; Complete Time: 17:39 [facility] 05/26 17:38 Order name: EKG - Nurse/Tech; Complete Time: 17:50 [facility] 05/26 20:32 Order name: CBC Smear Scan; Complete Time: 20:51 [facility] 05/26 17:38 Order name: IV Saline Lock; Complete Time: 17:50 [facility] 05/26 17:38 Order name: Labs collected and sent; Complete Time: 17:50 [facility] 05/26 17:38 Order name: O2 Per Protocol; Complete Time: 17:40 [facility] 05/26 17:38 Order name: O2 Sat Monitoring; Complete Time: 17:40 jmm Administered Medications: 18:00 Drug: Xopenex (3) 1.25 mg Route: Inhalation; hb 21:59 Not Given (Patient Refused): Decadron - Dexamethasone 10 mg IVP once ed1 Disposition: 05/26/18 21:29 Discharged to Home. Impression: Chronic obstructive pulmonary disease, unspecified. - Condition is Stable. - Discharge Instructions: Chronic Obstructive Pulmonary Disease. - Prescriptions for Medrol (Adin) 4 mg Oral Tablets, Dose Pack - take 1 tablet by ORAL route as directed - follow package instructions; 1 packet. Albuterol Sulfate 90 mcg/actuation - inhale 1-2 puff by INHALATION route every 4-6 hours; 1 Inhaler. - Medication Reconciliation Form, Thank You Letter, Antibiotic Education, Prescription Opioid Use form. - Follow up: Private Physician; When: 2 - 3 days; Reason: Recheck today's complaints, Continuance of care, Re-evaluation by your physician. Signatures: Dispatcher [employer] EDMS Jaime Hough PA PA jmm Riggs, Erika RN RN ed1 Meri Salcedo RN RN Corrections: (The following items were deleted from the chart) 22:02 21:29 05/26/2018 21:29 Discharged to Home. Impression: Chronic obstructive pulmonary ed1 disease, unspecified. Condition is Stable. Forms are Medication Reconciliation Form, Thank You Letter, Antibiotic Education, Prescription Opioid Use. Follow up: Private Physician; When: 2 - 3 days; Reason: Recheck today's complaints, Continuance of care, Re-evaluation by your physician. dawood
--- NOTE | 2018-05-26 21:30 | ER ---
Nurse's Notes [facility] Name: Mark Terrell Age: 67 yrs Sex: Male : 1950 Arrival Date: 05/26/2018 Time: 16:27 Bed 17 Private MD: Diagnosis: Chronic obstructive pulmonary disease, unspecified Presentation: 05/26 16:27 Presenting complaint: EMS states: SOB x 1 hr. Transition of care: patient was not hb received from another setting of care. Onset of symptoms was May 26, 2018. Risk Assessment: Do you want to hurt yourself or someone else? Patient reports no desire to harm self or others. Care prior to arrival: None. 16:27 Method Of Arrival: EMS: [facility] 16:27 Acuity: ARIEL 3 hb 16:30 Initial Sepsis Screen: Does the patient meet any 2 criteria? No. Patient's initial hb sepsis screen is negative. Does the patient have a suspected source of infection? No. Patient's initial sepsis screen is negative. Triage Assessment: 16:45 General: Appears in no apparent distress. Behavior is calm, cooperative. Pain: Denies hb pain. EENT: No signs and/or symptoms were reported regarding the EENT system. Neuro: Level of Consciousness is awake, alert, obeys commands, Oriented to person, place, time, situation. Cardiovascular: Capillary refill < 3 seconds Patient's skin is warm and dry. Respiratory: Reports shortness of breath at rest Airway is patent Respiratory effort is even, labored, Respiratory pattern is regular, symmetrical, Breath sounds are coarse bilaterally. Onset: The symptoms/episode began/occurred today, the patient has mild shortness of breath. GI: No signs and/or symptoms were reported involving the gastrointestinal system. : No signs and/or symptoms were reported regarding the genitourinary system. Derm: Skin is intact, is healthy with good turgor. Musculoskeletal: No signs and/or symptoms reported regarding the musculoskeletal system. Historical: - Allergies: 16:29 Benadryl; hb - PMHx: 16:29 Aneurysm; BRAIN; Atrial Fib; Cancer; PROSTATE; CHF; COPD; Hypertension; Prostate Cancer;hb - PSHx: 16:29 brain; prostate; hb - Immunization history:: Adult Immunizations up to date. - Social history:: Smoking status: Patient uses tobacco products, smokes one-half pack cigarettes per day. - Ebola Screening: : No symptoms or risks identified at this time. Screenin:30 Abuse screen: Denies threats or abuse. Denies injuries from another. Nutritional hb screening: No deficits noted. Tuberculosis screening: No symptoms or risk factors identified. Fall Risk None identified. Assessment: 16:45 General: see triage assessment. hb 17:30 Reassessment: Patient appears in no apparent distress at this time. Patient and/or hb family updated on plan of care and expected duration. Pain level reassessed. Patient is alert, oriented x 3, equal unlabored respirations, skin warm/dry/pink. 18:30 Reassessment: Patient appears in no apparent distress at this time. Patient and/or hb family updated on plan of care and expected duration. Pain level reassessed. Patient is alert, oriented x 3, equal unlabored respirations, skin warm/dry/pink. 19:53 Reassessment: Patient appears in no apparent distress at this time. Patient and/or ed1 family updated on plan of care and expected duration. Pain level reassessed. Patient is alert, oriented x 3, equal unlabored respirations, skin warm/dry/pink. Cardiovascular: Rhythm is regular. 21:01 Reassessment: Patient appears in no apparent distress at this time. Patient and/or ed1 family updated on plan of care and expected duration. Pain level reassessed. Patient is alert, oriented x 3, equal unlabored respirations, skin warm/dry/pink. 22:00 Reassessment: Pt refused IV Decadron stating "I don't like that stuff.". ed1 Vital Signs: 16:29 BP 177 / 109; Pulse 88; Resp 20; Temp 98.6; Pulse Ox 98% on R/A; Pain 2/10; hb 17:30 BP 173 / 105; Pulse 105; Resp 20; Pulse Ox 97% on Nebulizer Mask; hb 18:30 BP 173 / 112; Pulse 90; Resp 18; Pulse Ox 99% on R/A; hb 19:53 BP 172 / 88; Pulse 95; Resp 18; Pulse Ox 93% on R/A; ed1 21:01 BP 183 / 92; Pulse 92; Resp 18; Pulse Ox 96% on R/A; Pain 3/10; ed1 ED Course: 16:27 Patient arrived in ED. hb 16:27 Triage completed. hb 16:28 Arm band placed on. hb 16:36 Meri Salcedo, RN is Primary Nurse. hb 16:46 EKG done, by environmental sampling technician. reviewed by Jaylan Browne MD. 3 17:10 Jaime Hough PA is PHCP. dawood 17:10 Eric Ochoa MD is Attending Physician. [facility] 17:30 Patient has correct armband on for positive identification. Bed in low position. Call hb light in reach. Side rails up X 1. 17:30 Inserted saline lock: 20 gauge in right antecubital area, using aseptic technique. hb Blood collected. 17:58 X-ray completed. Portable x-ray completed in exam room. Patient tolerated procedure ml well. 17:58 XRAY Chest (1 view) In Process Unspecified. EDMS 19:05 Primary Nurse role handed off by Meri Salcedo RN ed1 19:05 Susan Tracy RN is Primary Nurse. ed1 19:55 Awaiting: Notified by lab of recollect needed. Lab called to assist in draw. ed1 20:17 EKG done, by ED staff, reviewed by Eric Ochoa MD. ed1 22:00 No provider procedures requiring assistance completed. IV discontinued, intact, ed1 bleeding controlled, No redness/swelling at site. Pressure dressing applied. Administered Medications: 18:00 Drug: Xopenex (3) 1.25 mg Route: Inhalation; hb 21:59 Not Given (Patient Refused): Decadron - Dexamethasone 10 mg IVP once ed1 Outcome: 21:29 Discharge ordered by . [facility] 22:00 Discharged to home ambulatory. ed1 22:00 Condition: good 22:00 Discharge instructions given to patient, Instructed on discharge instructions, follow up and referral plans. medication usage, Demonstrated understanding of instructions, follow-up care, medications, Prescriptions given X 2. 22:02 Patient left the ED. ed1 Signatures: Dispatcher [employer] EDMS Jaime Hough PA PA jmm Lopez, Melissa ml Riggs, Erika, RN RN ed1 Meri Salcedo, LASHAY RN Sharri Nunez 3 Corrections: (The following items were deleted from the chart) 16:36 16:29 BP 174 / 117; Pulse 88bpm; Resp 20bpm; Pulse Ox 98% RA; Temp 98.6F; Pain 2/10; hb hb
--- NOTE | 2018-05-26 22:06 | EKG ---
Test Date: 2018-05-26 Test Time: 16:27:47 Quick Service Technician: JOHANA MEASUREMENT RESULTS: Intervals: Rate: 93 AK: 148 QRSD: 114 QT: 406 QTc: 504 [place]: P: 79 AK: 148 QRS: 91 T: 35 INTERPRETIVE STATEMENTS: Normal sinus rhythm with sinus arrhythmia Rightward axis Moderate voltage criteria for LVH, may be normal variant Nonspecific ST and T wave abnormality Prolonged QT Abnormal ECG Compared to ECG 05/19/2018 17:41:09 Left ventricular hypertrophy now present ST (T wave) deviation now present Electronically Signed On 05-26-18 22:06:27 CDT by Jitendra Willams
[2018-05-26 23:51] VITALS: TEMP 98.6
[2018-05-26 23:56] VITALS: BP 183/92; O2SAT 96
--- NOTE | 2018-05-27 11:37 | EKG ---
Test Date: 2018-05-26 Test Time: 20:13:00 Pump Oiler: MARIANO MEASUREMENT RESULTS: Intervals: Rate: 94 W[place]: 146 QRSD: 114 QT: 404 QTc: 505 [place]: P: 74 W[place]: 146 QRS: 89 T: 41 INTERPRETIVE STATEMENTS: Normal sinus rhythm Voltage criteria for left ventricular hypertrophy Nonspecific ST and T wave abnormality Prolonged QT Abnormal ECG Compared to ECG 05/26/2018 16:27:47 Sinus arrhythmia no longer present Right-axis deviation no longer present ST (T wave) deviation still present Electronically Signed On 05-27-18 11:37:21 CDT by Jitendra Willams
== END 2018-05-26 22:02 | disposition home or self-care (01) ==
LOC: ER 16:22
DX: J44.9 Chronic obstructive pulmonary disease, unspecified (principal); I11.0 Hypertensive heart disease with heart failure; I50.9 Heart failure, unspecified; C61 Malignant neoplasm of prostate; I48.91 Unspecified atrial fibrillation; F17.210 Nicotine dependence, cigarettes, uncomplicated
CPT/HCPCS: 36415; 71045; 80048; 80076; 83735; 83880; 84484; 85025; 85610; 93005; 99285

== ENCOUNTER 2018-05-31 14:46 | Observation (INO) | payer OTHER ==
--- OUTSIDE RECORDS SUMMARY | 2018-05-31 14:48 | XMS REPORT ---
:1950 [facility] Address [address] [place] [address] Care Team Providers Name Role Phone Unavailable [...]
[2018-05-31] MEDS ORDERED: LEVALBUTEROL 1.25 MG/3 ML NEB ONE (15:10)
[2018-05-31] MEDS ORDERED: MAGNESIUM SULFATE 1 gm IVPB 1 GM/100 ML BAG IV ONE (15:10)
[2018-05-31] MEDS ORDERED: FUROSEMIDE 40 MG/4 ML VIAL ONE (15:10)
[2018-05-31] MEDS ORDERED: METHYLPREDNISOLONE 125 MG INJ ONE (15:10)
[2018-05-31 15:40] LABS: RBC Red Blood Cell Count 5.59 M/uL (4.33-5.43)
[2018-05-31 15:41] LABS: Absolute Lymphocytes (CBC) 3.9 K/uL (0.7-4.9); Absolute Monocytes 1.5 K/uL (0.1-1.3); Absolute Neutrophil 6.7 K/uL (1.8-8.0); Eosinophils % 1.1 % (0-4.4); Hematocrit 34.1 % (39.6-49.0); Lymphocytes % 31.7 % (15.3-44.8); MPV 8.8 fL (7.6-11.3); Monocytes % 12.1 % (3.3-12.3)
--- NOTE | 2018-05-31 15:44 | RAD REPORT ---
EXAM DESCRIPTION: RAD - Chest Single View - 05/31/2018 3:25 pm CLINICAL HISTORY: Chest pain, difficulty breathing COMPARISON: May 26 TECHNIQUE: AP portable chest image was obtained 1521 hours . FINDINGS: Patient has chronic interstitial lung disease. Mild cardiomegaly is present and stable. Th ere is mild vascular engorgement present. No focal consolidation. No measurable pleural effusion and no pneumothorax. No acute bony abnormality seen. No acute aortic findings suspected. IMPRESSION: Mild CHF/volume overload pattern similar to comparison.
[2018-05-31 15:45] LABS: Potassium 4.7 mmol/L (3.5-5.1); Troponin (Emerg Dept Use Only) 0.06 ng/mL (0.0-0.045)
--- NOTE | 2018-05-31 15:52 | EDPHYS ---
Physician Documentation [facility] Name: Mark Terrell Age: 67 yrs Sex: Male : 1950 Arrival Date: 05/31/2018 Time: 14:45 Bed 6 Private MD: ED Physician Ryan Vasquez HPI: 05/31 15:07 This 67 yrs old Male presents to ER via EMS with complaints of Breathing rn Difficulty, Chest Pain. 15:07 The patient has shortness of breath at rest. Onset: The symptoms/episode began/occurred rn at an unknown time. Duration: The symptoms are continuous. The patient's shortness of breath is aggravated by exertion, light activity, supine position, talking, walking. Severity of symptoms: At their worst the symptoms were moderate in the emergency department the symptoms are unchanged. The patient has experienced similar episodes in the past. The patient has been recently seen by a physician:. Reports last 2-3 days has been rough, sob, + cough, + chest pain and leg swelling. Reports not taking his lasix due to financial reasons. Seen recently, felt better, sent home, now got worse again. . Historical: - Allergies: 14:50 Benadryl; hj - PMHx: 14:50 Aneurysm; BRAIN; Atrial Fib; Cancer; PROSTATE; CHF; COPD; Hypertension; Prostate Cancer;hj - PSHx: 14:50 brain; prostate; hj - Immunization history:: Adult Immunizations not up to date. - Social history:: Smoking status: Patient uses tobacco products, Patient uses alcohol. - Ebola Screening: : Patient negative for fever greater than or equal to 101.5 degrees Fahrenheit, and additional compatible Ebola Virus Disease symptoms Patient denies exposure to infectious person Patient denies travel to an Ebola-affected area in the 21 days before illness onset. - Family history:: not pertinent. - Hospitalizations: : No recent hospitalization is reported. ROS: 15:07 Constitutional: Negative for fever, chills, and weight loss, Eyes: Negative for injury, rn pain, redness, and discharge, Neck: Negative for injury, pain, and swelling, Cardiovascular: Negative for chest pain, palpitations, + edema Respiratory: Negative for pleuritic chest pain, Abdomen/GI: Negative for abdominal pain, nausea, vomiting, diarrhea, and constipation, MS/Extremity: Negative for injury and deformity, Skin: Negative for injury, rash, and discoloration, Neuro: Negative for headache, numbness, tingling, and seizure. Exam: 15:07 Constitutional: This is a well developed, well nourished patient who is awake, alert, rn + mild respiratory distress Head/Face: Normocephalic, atraumatic. ENT: dry MM, no stridor Cardiovascular: Regular rate and rhythm, no murmur Respiratory: + bilateral crackles with wheezing, no retractions, speaking 3 word sentences Abdomen/GI: Soft, non-tender, No evidence of tenderness throughout. MS/ Extremity: Pulses equal, no cyanosis. Neurovascular intact. Full, normal range of motion. Equal circumference. 2+ pitting bilateral edema. Neuro: Awake and alert, GCS 15, oriented to person, place, time, and situation. Cranial nerves II-XII grossly intact. Motor strength 5/5 in all extremities. Sensory grossly intact. Vital Signs: 14:52 BP 199 / 127; Pulse 98; Resp 18; Temp 97.5(O); Pulse Ox 100% on Nebulizer Mask; Weight hj 77.11 kg; Height 5 ft. 11 in. (180.34 cm); Pain 5/10; 15:28 BP 175 / 121; Pulse 97; Resp 22; Pulse Ox 100% on Nebulizer Mask; hj 14:52 Body Mass Index 23.71 (77.11 kg, 180.34 cm) MDM: 14:48 Patient medically screened. rn 15:50 Differential diagnosis: Bronchitis CHF exacerbation, Chronic Obstructive Pulmonary rn Disease Myocardial Infarction pneumonia, Pneumothorax pulmonary edema. Data reviewed: vital signs, nurses notes, lab test result(s), EKG, radiologic studies, plain films, and as a result, I will admit patient. Counseling: I had a detailed discussion with the patient and/or guardian regarding: the historical points, exam findings, and any diagnostic results supporting the discharge/admit diagnosis, lab results, radiology results, the need for further work-up and treatment in the hospital. Response to treatment: the patient's symptoms have mildly improved after treatment, and as a result, I will admit patient. Admission orders: after a detailed discussion of the patient's condition and case, the admit orders are written by me. 05/31 14:49 Order name: Blood Culture Adult (2) rn 05/31 14:49 Order name: BMP; Complete Time: 15:46 rn 05/31 14:49 Order name: CBC with Diff rn 05/31 14:49 Order name: NT PRO-BNP; Complete Time: 15:46 rn 05/31 14:49 Order name: Troponin (emerg Dept Use Only); Complete Time: 15:46 rn 05/31 16:07 Order name: Manual Differential EDMS 05/31 14:49 Order name: XRAY CXR (1 view); Complete Time: 15:46 rn 05/31 14:49 Order name: EKG; Complete Time: 14:50 rn 05/31 14:49 Order name: Cardiac monitoring; Complete Time: 14:56 rn 05/31 14:49 Order name: EKG - Nurse/Tech; Complete Time: 15:20 rn 05/31 14:49 Order name: IV Saline Lock; Complete Time: 15:20 rn 05/31 14:49 Order name: Labs collected and sent; Complete Time: 15:20 rn 05/31 14:49 Order name: O2 Per Protocol; Complete Time: 14:56 rn 05/31 14:49 Order name: O2 Sat Monitoring; Complete Time: 14:56 rn Administered Medications: 15:00 Drug: Xopenex (3) 1.25 mg Route: Inhalation; hj 15:27 Follow up: Response: No adverse reaction; Wheezing diminished hj 15:15 Drug: SOLU-Medrol 125 mg Route: IVP; Site: left forearm; hj 15:27 Follow up: Response: No adverse reaction hj 15:15 Drug: Magnesium Sulfate 1 grams Route: IVPB; Infused Over: 1 hrs; Site: left forearm; hj 15:27 Follow up: IV Status: Completed infusion hj 15:15 Drug: Lasix 40 mg Route: IVP; Site: left forearm; hj 15:27 Follow up: Response: No adverse reaction hj Disposition: 15:50 Critical Care:. rn Disposition: 05/31/18 15:51 Hospitalization ordered by Arya Quiroz for Inpatient Admission. Preliminary diagnosis are Chronic obstructive pulmonary disease with (acute) exacerbation, Unspecified combined systolic (congestive) and diastolic (congestive) heart failure, Dyspnea, unspecified. - Bed requested for Telemetry/MedSurg (Inpatient). - Status is Inpatient Admission. iw - Condition is Stable. - Problem is an acute exacerbation. - Symptoms have improved. UTI on Admission? No Critical care time excluding procedures: 15:50 Critical care time: Bedside Care: 25 minutes, Consultation: 5 minutes. Total time: 30 rn minutes Signatures: Dispatcher [employer] EDJeri Albrecht RN RN dw Williams, Irene, RN RN iw Nieto, Roman, MD MD rn Joaquin, Henry, RN RN hj Botello, Elizabeth eb Corrections: (The following items were deleted from the chart) 15:58 15:51 Hospitalization Ordered by Arya Quiroz MD for Inpatient Admission. Preliminary eb diagnosis is Chronic obstructive pulmonary disease with (acute) exacerbation; Unspecified combined systolic (congestive) and diastolic (congestive) heart failure; Dyspnea, unspecified. Bed requested for Telemetry/MedSurg (Inpatient). Status is Inpatient Admission. Condition is Stable. Problem is an acute exacerbation. Symptoms have improved. UTI on Admission? No. rn 16:37 15:58 05/31/2018 15:51 Hospitalization Ordered by Arya Quiroz MD for Inpatient dw Admission. Preliminary diagnosis is Chronic obstructive pulmonary disease with (acute) exacerbation; Unspecified combined systolic (congestive) and diastolic (congestive) heart failure; Dyspnea, unspecified. Bed requested for Telemetry/MedSurg (Inpatient). Status is Inpatient Admission. Condition is Stable. Problem is an acute exacerbation. Symptoms have improved. UTI on Admission? No. eb 17:00 16:37 05/31/2018 15:51 Hospitalization Ordered by Arya Quiroz MD for Inpatient iw Admission. Preliminary diagnosis is Chronic obstructive pulmonary disease with (acute) exacerbation; Unspecified combined systolic (congestive) and diastolic (congestive) heart failure; Dyspnea, unspecified. Bed requested for Telemetry/MedSurg (Inpatient). Status is Inpatient Admission. Condition is Stable. Problem is an acute exacerbation. Symptoms have improved. UTI on Admission? No. dw
--- NOTE | 2018-05-31 15:52 | ER ---
Nurse's Notes [facility] Name: Mark Terrell Age: 67 yrs Sex: Male : 1950 Arrival Date: 05/31/2018 Time: 14:45 Bed 6 Private MD: Diagnosis: Chronic obstructive pulmonary disease with (acute) exacerbation;Unspecified combined systolic (congestive) and diastolic (congestive) heart failure;Dyspnea, unspecified Presentation: 05/31 14:46 Presenting complaint: EMS states: from home, complaining of difficulty breathing and hj chest pain for one day; per EMS, lung means diminished; denies fever, O2 sat 91-92% on RA; A/A breathing tx O2 sat increases to 100%; 20 g L AC; BP- 200/120; aspirin 81 mg x 4 given;. Transition of care: patient was not received from another setting of care. Onset of symptoms was May 31, 2018. Risk Assessment: Do you want to hurt yourself or someone else? Patient reports no desire to harm self or others. Initial Sepsis Screen: Does the patient meet any 2 criteria? No. Patient's initial sepsis screen is negative. Does the patient have a suspected source of infection? No. Patient's initial sepsis screen is negative. Care prior to arrival: None. 14:46 Method Of Arrival: EMS: [facility] 14:46 Acuity: ARIEL 2 hj Triage Assessment: 14:50 General: Appears in no apparent distress. Behavior is calm, cooperative, appropriate hj for age. Pain: Complains of pain in chest. Respiratory: Reports shortness of breath labored breathing Onset: The symptoms/episode began/occurred yesterday, the patient has moderate shortness of breath. Historical: - Allergies: 14:50 Benadryl; hj - PMHx: 14:50 Aneurysm; BRAIN; Atrial Fib; Cancer; PROSTATE; CHF; COPD; Hypertension; Prostate Cancer;hj - PSHx: 14:50 brain; prostate; hj - Immunization history:: Adult Immunizations not up to date. - Social history:: Smoking status: Patient uses tobacco products, Patient uses alcohol. - Ebola Screening: : Patient negative for fever greater than or equal to 101.5 degrees Fahrenheit, and additional compatible Ebola Virus Disease symptoms Patient denies exposure to infectious person Patient denies travel to an Ebola-affected area in the 21 days before illness onset. - Family history:: not pertinent. - Hospitalizations: : No recent hospitalization is reported. Screenin:51 Abuse screen: Denies threats or abuse. Denies injuries from another. Nutritional hj screening: No deficits noted. Tuberculosis screening: No symptoms or risk factors identified. Fall Risk Fall in past 12 months (25 points). Assessment: 14:51 Cardiovascular: Rhythm is. Respiratory: Airway is patent Respiratory effort is labored, hj Respiratory pattern is regular, symmetrical, Breath sounds are diminished. 14:51 General: Appears in no apparent distress. uncomfortable, Behavior is calm, cooperative, hj appropriate for age. Pain: Complains of pain in chest. Neuro: Level of Consciousness is awake, alert, obeys commands, Oriented to person, place, time, situation, Appropriate for age. Cardiovascular: Reports chest pain, Heart tones S1 S2 present Capillary refill < 3 seconds Patient's skin is warm and dry. GI: Abdomen is round. : No signs and/or symptoms were reported regarding the genitourinary system. EENT: No signs and/or symptoms were reported regarding the EENT system. Derm: No signs and/or symptoms reported regarding the dermatologic system. Musculoskeletal: No signs and/or symptoms reported regarding the musculoskeletal system. 15:40 Reassessment: Patient and/or family updated on plan of care and expected duration. Pain hj level reassessed. Patient is alert, oriented x 3, equal unlabored respirations, skin warm/dry/pink. awaiting results and POC;. Vital Signs: 14:52 BP 199 / 127; Pulse 98; Resp 18; Temp 97.5(O); Pulse Ox 100% on Nebulizer Mask; Weight hj 77.11 kg; Height 5 ft. 11 in. (180.34 cm); Pain 5/10; 15:28 BP 175 / 121; Pulse 97; Resp 22; Pulse Ox 100% on Nebulizer Mask; hj 14:52 Body Mass Index 23.71 (77.11 kg, 180.34 cm) ED Course: 14:45 Patient arrived in ED. hj 14:48 Ryan Vasquez MD is Attending Physician. rn 14:49 Triage completed. hj 14:51 Arm band placed on left wrist. hj 14:55 Satnam Shaw RN is Primary Nurse. hj 14:55 Patient has correct armband on for positive identification. Placed in gown. Bed in low hj position. Call light in reach. Side rails up X 1. 15:15 Initial lab(s) drawn, by me, sent to lab. Inserted saline lock: 22 gauge in left hj forearm, using aseptic technique. Blood collected. 15:22 XRAY CXR (1 view) In Process Unspecified. EDMS 15:51 Arya Quiroz MD is Hospitalizing Provider. rn 17:01 No provider procedures requiring assistance completed. Patient admitted, IV remains in hj place. Administered Medications: 15:00 Drug: Xopenex (3) 1.25 mg Route: Inhalation; hj 15:27 Follow up: Response: No adverse reaction; Wheezing diminished hj 15:15 Drug: SOLU-Medrol 125 mg Route: IVP; Site: left forearm; hj 15:27 Follow up: Response: No adverse reaction hj 15:15 Drug: Magnesium Sulfate 1 grams Route: IVPB; Infused Over: 1 hrs; Site: left forearm; hj 15:27 Follow up: IV Status: Completed infusion hj 15:15 Drug: Lasix 40 mg Route: IVP; Site: left forearm; hj 15:27 Follow up: Response: No adverse reaction hj Outcome: 15:51 Decision to Hospitalize by Provider. rn 17:00 Patient left the ED. iw 17:02 Admitted to Tele accompanied by tech, via wheelchair, room 408, with chart, Report hj called to LASHAY Kim 17:02 Condition: stable 17:02 Instructed on the need for admit, Demonstrated understanding of instructions. Signatures: Dispatcher [employer] Sara Dorado RN RN iw Nieto, Roman, MD MD rn Joaquin, Henry, RN RN hj
[2018-05-31 16:08] LABS: Anisocytosis 1+; Blood Morphology Comment NOTED (NOT SEEN); Macrocytosis 2+; Platelet Estimate DECR; Platelets, Giant PRESENT
[2018-05-31 16:09] LABS: Hypochromasia 3+
[2018-05-31] MEDS: METOPROLOL TAR 25 MG TAB PO SCH (18:27)
[2018-05-31 19:04] LABS: Urine Appearance CLEAR; Urine Bilirubin NEGATIVE (NEG); Urine Blood NEGATIVE (NEG); Urine Color YELLOW; Urine Glucose NEGATIVE (NEG); Urine Microscopic Reflex NO UMIC; Urine Protein NEGATIVE (NEG); Urine Specific Gravity <=1.005 (1.005-1.030); Urine Urobilinogen 0.2 mg/dL (0.2-1.0)
--- NOTE | 2018-05-31 19:10 | P.HP ---
Certification for Inpatient Patient admitted to: Observation With expected LOS: <2 Midnights Practitioner: I am a practitioner with admitting privileges, knowledge of patient current condition, hospital course, and medical plan of care. Services: Services provided to patient in accordance with Admission requirements found in Title 42 Section 412.3 of the Code of Federal Regulations Patient History Date of Service: 05/31/18 Primary Care Provider: None Reason for admission: Shortness of breath History of Present Illness: Mr Terrell is a 67 years old male, with multiple medical problems, including HTN, chronic combined systolic and diastolic CHF, COPD, tobacco abuse, well known for our service due to recurrent admission for CHF exacerbation secondary to non-compliance with his medical treatment, who start this morning with progressive SOB. He denied fever or chills, no more cough than usual, no chest pain. At arrival to ED, he was significantly dyspneic and tachycardic. His chest x-ray was positive for mild CHF/volume overload. His lab work was remarkable for what WBC count of 12.3 and a creatinine of 1.42. His troponins were also slightly elevated to 0.06. His BNP was 15,856. He was given Lasix IV times 40 mg, steroids and Xopenex breathing treatment. At the time of my exam, patient was alert oriented x3, symptom-free and hemodynamically stable. His blood pressure was still elevated. Allergies poison chandana extract Allergy (Intermediate, Verified 05/31/18 17:41) Hives diphenhydramine HCl [From Benadryl] Adverse Reaction (Intermediate, Verified 22:44) Hives Home Medications: Albuterol Inhaler [Ventolin Inhaler*] 2 puff IH TID PRN #1 hfa.aer.ad 05/20/18 Aspirin [Aspirin EC 81 MG] 81 mg PO DAILY #30 tablet. 05/20/18 Lisinopril [Prinivil*] 10 mg PO DAILY #30 tab 05/20/18 Metoprolol Tartrate [Lopressor*] 25 mg PO BID 6AM 6PM #60 tab 05/20/18 Mometasone/Formoterol [Dulera 200 Mcg/5 Mcg Inhaler] 2 puff IH BID #1 inhaler - Past Medical/Surgical History Has patient received pneumonia vaccine in the past: Yes Diabetic: No -: History of prostate cancer -: Hypertension -: History of brain aneurysm requiring surgery -: CHF, systolic dysfunction -: COPD -: Tobacco abuse -: hyperlipidemia -: Coronary disease, stents x3 to LAD/RCA(Feb 2016) -: anemia -: GERD -: anemia -: hyperlipidemia -: Prostate surgery -: Brain aneurysm surgery -: Toe surgery R. great toe/childhood -: Heart catheterization-3stents LAD/RCA Psychosocial/ Personal History: He is single, lives alone. He has no children. 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 - Family History Father -: Cancer Notes: brain cancer Mother -: Cancer Notes: pancreatic cancer Brother -: Cancer Notes: lung cancer - Social History Smoking Status: Current every day smoker Alcohol use: No CD- Drugs: No Caffeine use: Yes Place of Residence: [facility] Review of Systems 10-point ROS is otherwise unremarkable Physical Examination - Vital Signs Temperature: 97.8 F Blood Pressure: 175/107 Pulse: 98 Respirations: 18 Pulse Ox (%): 96 - Physical Exam General: Alert, In no apparent distress, Oriented x3 HEENT: Atraumatic, PERRLA, Mucous membr. moist/pink, EOMI, Sclerae nonicteric Neck: Supple, 2+ carotid pulse no bruit, No LAD, Without JVD or thyroid abnormality Respiratory: Diminished, Crackles/rales Cardiovascular: Regular rate/rhythm, Normal S1 S2 Gastrointestinal: Normal bowel sounds, No tenderness Musculoskeletal: No tenderness Integumentary: No rashes Neurological: Normal gait, Normal speech, Normal strength at 5/5 x4 extr, Normal tone, Normal affect Lymphatics: No axilla or inguinal lymphadenopathy - Studies Laboratory Data (last 24 hrs) 05/31/18 15:15: WBC 12.3 H D, Hgb 11.2 L, Hct 34.1 L, Plt Count 134 L 05/31/18 15:15: Sodium 141, Potassium 4.7, BUN 31 H, Creatinine 1.42 H, Glucose 110 H Assessment and Plan - Problems (Diagnosis) (1) Acute dyspnea Onset Date: 11/15/16 Current Visit: No Status: Acute (2) Acute on chronic systolic (congestive) heart failure Onset Date: 09/01/17 Current Visit: No Status: Acute (3) COPD exacerbation Onset Date: 12/19/15 Current Visit: No Status: Acute (4) Elevated troponin Onset Date: 03/31/17 Current Visit: No Status: Acute (5) Hyperlipidemia Onset Date: 07/19/16 Current Visit: No Status: Chronic Qualifiers: (6) Hypertension Onset Date: 02/05/16 Current Visit: No Status: Chronic Qualifiers: (7) Noncompliance Onset Date: 03/18/16 Current Visit: No Status: Chronic - Plan Admit patient to the floor with tele for acute shortness of breath/pulmonary edema, secondary to non-compliance with medical treatment. Start IV Lasix 40 mg b.i.d., steroids, breathing treatments with Xopenex and Atrovent. Start beta-vlad, PAWEL-inhibitor, aspirin, statin. Continue to monitor vital signs. Monitor via labs in the morning. Strict I&O's Daily weight checks DVT prophylaxis: Lovenox GI prophylaxis: None Diet: Heart healthy, fluid restriction Disposition: Admit to floor with tele. Pending symptomatic improvement - Advance Directives Does patient have a Living Will: No Does patient have a Durable POA for Healthcare: No Time Spent Managing Pts Care (In Minutes): 45
[2018-05-31] MEDS: LEVALBUTEROL 1.25 MG/3 ML NEB NEB SCH (20:00)
[2018-05-31] MEDS: IPRATROPIUM BROM 0.5MG/2.5ML NEB SCH (20:00)
[2018-06-01] MEDS: METHYLPREDNISOLONE 40 MG INJ IV SCH ×3 (01:28→18:13)
[2018-06-01] MEDS: IPRATROPIUM BROM 0.5MG/2.5ML NEB SCH ×4 (02:00→19:35)
[2018-06-01] MEDS: LEVALBUTEROL 1.25 MG/3 ML NEB NEB SCH ×4 (02:00→19:35)
[2018-06-01] MEDS: METOPROLOL TAR 25 MG TAB PO SCH ×2 (06:21→18:13)
[2018-06-01 06:31] VITALS: BMI 25.0
[2018-06-01 07:09] LABS: Hematocrit 33.2 % (39.6-49.0); MPV 9.6 fL (7.6-11.3); RBC Red Blood Cell Count 5.43 M/uL (4.33-5.43)
[2018-06-01 07:11] LABS: Albumin 3.3 g/dL (3.4-5.0); Bilirubin Total 0.9 mg/dL (0.2-1.0); Magnesium 2.1 mg/dL (1.8-2.4); Phosphorus 3.3 mg/dL (2.5-4.9); Potassium 4.6 mmol/L (3.5-5.1); Protein, Total 6.1 g/dL (6.4-8.2)
[2018-06-01] MEDS: ASPIRIN EC 81 MG TAB PO SCH (08:19)
[2018-06-01] MEDS: LISINOPRIL 10 MG TAB PO SCH (08:19)
[2018-06-01] MEDS: FUROSEMIDE 40 MG/4 ML VIAL IV SCH ×2 (08:20→18:13)
[2018-06-01 08:44] LABS: Anisocytosis 2+; Blood Morphology Comment NOTED (NOT SEEN); Hypochromasia 2+; Platelet Estimate ADEQ; Poikilocytosis 2+
--- NOTE | 2018-06-01 19:25 | P.PN ---
Subjective Date of Service: 06/01/18 Primary Care Provider: None Chief Complaint: Shortness of breath Subjective: Improving Patient seen and examined at bedside. No family at bedside. Chart reviewed and case discussed with nursing staff. Reports improvement in breathing. Off of oxygen. Ambulating without any concerns, tolerating oral diet Denies any chest pain, headache, dizziness, syncope/presyncope. Review of Systems 10-point ROS is otherwise unremarkable Physical Examination - Vital Signs Temperature: 97.9 F Blood Pressure: 160/80 Pulse: 76 Respirations: 18 Pulse Ox (%): 100 - Physical Exam General: Alert, In no apparent distress HEENT: Atraumatic, PERRLA, EOMI Neck: Supple, JVD not distended Respiratory: Clear to auscultation bilaterally, Normal air movement Cardiovascular: Regular rate/rhythm, Normal S1 S2 Gastrointestinal: Normal bowel sounds, No tenderness Musculoskeletal: No tenderness Integumentary: No rashes Neurological: Normal speech, Normal tone, Normal affect Lymphatics: No axilla or inguinal lymphadenopathy Assessment And Plan - Current Problems (Diagnosis) (1) Acute dyspnea Onset Date: 11/15/16 Current Visit: No Status: Acute (2) Acute on chronic systolic (congestive) heart failure Onset Date: 09/01/17 Current Visit: No Status: Acute (3) COPD exacerbation Onset Date: 12/19/15 Current Visit: No Status: Acute (4) Elevated troponin Onset Date: 03/31/17 Current Visit: No Status: Acute (5) Hyperlipidemia Onset Date: 07/19/16 Current Visit: No Status: Chronic Qualifiers: (6) Hypertension Onset Date: 02/05/16 Current Visit: No Status: Chronic Qualifiers: (7) Noncompliance Onset Date: 03/18/16 Current Visit: No Status: Chronic - Plan Improved his symptoms. Continue IV Lasix 40 mg b.i.d., steroids, breathing treatments with Xopenex and Atrovent. Continue beta-vlad, PAWEL-inhibitor, aspirin, statin. Continue to monitor vital signs. Monitor via labs in the morning. Strict I&O's Daily weight checks DVT prophylaxis: Lovenox GI prophylaxis: None Diet: Heart healthy, fluid restriction Disposition: ending symptomatic improvement. Possible discharge tomorrow. Patient still refuses to take medications once discharged from the hospital.
[2018-06-02] MEDS: METHYLPREDNISOLONE 40 MG INJ IV SCH ×2 (01:13→09:03)
[2018-06-02] MEDS: LEVALBUTEROL 1.25 MG/3 ML NEB NEB SCH ×2 (01:25→07:38)
[2018-06-02] MEDS: IPRATROPIUM BROM 0.5MG/2.5ML NEB SCH ×2 (01:25→07:39)
[2018-06-02] MEDS ORDERED: ACETAMINOPHEN 500 MG TAB PO PRN (04:40)
[2018-06-02] MEDS: METOPROLOL TAR 25 MG TAB PO SCH (05:03)
[2018-06-02 08:52] VITALS: BP 156/81; TEMP 99.2
[2018-06-02] MEDS: FUROSEMIDE 40 MG/4 ML VIAL IV SCH (09:03)
[2018-06-02] MEDS: ASPIRIN EC 81 MG TAB PO SCH (09:03)
[2018-06-02] MEDS: LISINOPRIL 10 MG TAB PO SCH (09:04)
[2018-06-02 09:08] VITALS: O2SAT 96
--- NOTE | 2018-06-03 06:25 | DS ---
Date of Discharge: 06/02/2018 Admitting Diagnoses: 1.Acute on chronic systolic heart failure exacerbation. 2.Acute dyspnea. 3.Acute COPD exacerbation. 4.Elevated troponin level. 5.Mixed hyperlipidemia. 6.Essential hypertension. 7.Noncompliance. Discharge Diagnoses: 1.Acute dyspnea. 2.Acute on chronic systolic congestive heart failure. 3.Acute COPD exacerbation. 4.Elevated troponin. 5.Mixed hyperlipidemia. 6.Essential hypertension. 7.Noncompliance. Hospital Course: The patient is a 67-year-old male, who is homeless, has multiple medical problems i ncluding hypertension, CHF, COPD, continues to smoke, and is a frequent flyer to the hospital with mu ltiple readmissions to our service for CHF exacerbation due to noncompliance with medical treatment. The patient has been given every opportunity including purchasing medications for him by physician ramona cohen took care of him previously along with assistance to go to [facility]. However, the patient h as refused and does not have any family that he is in contact with and prefers to "live alone." The patient comes in with shortness of breath, similar symptoms as previous workup showed volume overload . White count of 12.3, creatinine of 1.42. Troponin was slightly elevated at 0.06 with an elevated BNP of 15,000. The patient was started on IV Lasix, steroids, and breathing treatments. The patient did have significant improvement. He diuresed well. His blood pressure remained stable. He was af ebrile. The patient had good urinary output. His kidney function slightly increased to 1.72. The p atient did not complain of any chest pain. His troponin levels were likely secondary to his CHF exac erbation. White count normalized. The patient's blood cultures were not drawn as his chest x-ray on ly showed CHF. The patient was then cleared for discharge. He was on room air. Dyspnea had signifi cantly improved. He was no longer short of breath while ambulating. The patient was then discharged in a stable condition. Activity: As tolerated. Medications: As per medication reconciliation list. Establish care with PCP in 2-3 days. Establish care with Cardiology in 2 weeks. Return to ER for wo rsening condition. Diet: Low-sodium, fluid-restricted diet. Physical Examination: General: Awake, alert, oriented x3. No acute distress. CV: S1, S2. No murmurs. Respiratory: Moving air well bilaterally. Abdomen: Soft, nontender, nondistended. Positive bowel sounds. Extremities: No clubbing, cyanosis. Trace pedal edema. Neuro: Nonfocal. The patient unfortunately remains high risk for readmission due to his noncompliance, homelessness, a connie other social issues. /MARY ANN Voice ID: [id number] Report ID: [id number]
--- NOTE | 2018-06-09 10:59 | EKG ---
Test Date: 2018-05-31 Test Time: 15:01:18 Director Broadcast: BASIM MEASUREMENT RESULTS: Intervals: Rate: 96 NE: 144 QRSD: 112 QT: 386 QTc: 487 Seltzer: P: 61 NE: 144 QRS: 69 T: 51 INTERPRETIVE STATEMENTS: Sinus rhythm with occasional premature ventricular complexes Prolonged QT Abnormal ECG Compared to ECG 05/26/2018 20:13:00 Ventricular premature complex(es) now present Left ventricular hypertrophy no longer present ST (T wave) deviation no longer present Electronically Signed On 06-01-18 06:06:06 CDT by Jitendra Willams
--- NOTE | 2018-06-09 11:01 | EKG ---
Test Date: 2018-05-31 Test Time: 17:13:42 Contracts Advisor: MEASUREMENT RESULTS: Intervals: Rate: 99 MA: 152 QRSD: 122 QT: 398 QTc: 510 Bow: P: 81 MA: 152 QRS: 115 T: 11 INTERPRETIVE STATEMENTS: Sinus rhythm with occasional premature ventricular complexes Right atrial enlargement Right axis deviation Pulmonary disease pattern Right ventricular hypertrophy Compared to ECG 05/31/2018 15:01:18 Atrial abnormality now present Right ventricular hypertrophy and Right axis deviation are now present Electronically Signed On 06-01-18 12:02:52 CDT by Jitendra Willams
== END 2018-06-02 12:13 | disposition home or self-care (01) ==
LOC: ER 14:46 → ERHOLD 16:15 → 4TH 16:53
PROVIDERS: ADMIT Family Medicine; ATTEND Family Medicine
DX: I50.23 Acute on chronic systolic (congestive) heart failure (principal); J44.1 Chronic obstructive pulmonary disease with (acute) exacerbation; E78.2 Mixed hyperlipidemia; I11.0 Hypertensive heart disease with heart failure; F17.210 Nicotine dependence, cigarettes, uncomplicated; Z91.09 Other allergy status, other than to drugs and biological substances; Z88.8 Allergy status to other drugs, medicaments and biological substances; Z91.14 Patient's other noncompliance with medication regimen; Z59.0 Homelessness
CPT/HCPCS: 93005 ×2; 85025 ×2; 80048; 36415; 83735; 84100; 81003; 84484 ×3; 80053; 83880; 71045; 94760 ×6; 96375; 96374; 99285; J1940 ×4; J3475; J2930; J2920 ×5; G0378 ×2

== ENCOUNTER 2018-06-05 02:17 | Emergency (ER) | payer OTHER ==
--- OUTSIDE RECORDS SUMMARY | 2018-06-05 02:19 | XMS REPORT ---
:1950 Author Organization [facility] Address [address] [place] [address] Care Team Providers Name Role Phone Unavailable [...]
[2018-06-05 02:44] LABS: Blood Gas Oxyhemoglobin 89.9 % (94-97); Blood O2 Saturation 92.4 % (92-98.5)
[2018-06-05] MEDS ORDERED: METHYLPREDNISOLONE 125 MG INJ ONE (03:11)
[2018-06-05] MEDS ORDERED: IPRATROPIUM BROM 0.5MG/2.5ML ONE (03:11)
[2018-06-05] MEDS ORDERED: LEVALBUTEROL 1.25 MG/3 ML NEB ONE (03:12)
[2018-06-05] MEDS ORDERED: ACETAMINOPHEN 500 MG TAB ONE (03:12)
[2018-06-05 03:19] LABS: Protime INR 1.15
[2018-06-05 03:22] LABS: Absolute Lymphocytes (CBC) 0.6 K/uL (0.7-4.9); Absolute Monocytes 1.5 K/uL (0.1-1.3); Absolute Neutrophil 10.8 K/uL (1.8-8.0); Basophils % 0.8 % (0-1.3); Eosinophils % 3.2 % (0-4.4); Hematocrit 33.4 % (39.6-49.0); Lymphocytes % 4.2 % (15.3-44.8); MPV 9.1 fL (7.6-11.3); Monocytes % 11.1 % (3.3-12.3); RBC Red Blood Cell Count 5.43 M/uL (4.33-5.43)
[2018-06-05 03:31] LABS: Albumin 3.3 g/dL (3.4-5.0); Bilirubin Direct 0.3 mg/dL (0-0.2); CKMB Creatine Kinase MB 3.9 ng/mL (0.3-3.6); Magnesium 2.1 mg/dL (1.8-2.4); Potassium 4.9 mmol/L (3.5-5.1); Troponin (Emerg Dept Use Only) 0.09 ng/mL (0.0-0.045)
[2018-06-05] MEDS ORDERED: FUROSEMIDE 40 MG/4 ML VIAL ONE (03:33)
[2018-06-05] MEDS ORDERED: NITROGLYCERIN 1 GM PKT TD ONE (03:33)
--- NOTE | 2018-06-05 03:52 | ER ---
Nurse's Notes [facility] Name: Mark Terrell Age: 67 yrs Sex: Male : 1950 Arrival Date: 06/05/2018 Time: 02:23 Bed 28 Private MD: Diagnosis: Chronic obstructive pulmonary disease, unspecified Presentation: 06/05 02:23 Presenting complaint: EMS states: "He was reporting shortness if breath for 30 min jd3 prior to our arrival.". Transition of care: patient was not received from another setting of care. Onset of symptoms was June 05, 2018. Risk Assessment: Do you want to hurt yourself or someone else? Patient reports no desire to harm self or others. Initial Sepsis Screen: Does the patient meet any 2 criteria? No. Patient's initial sepsis screen is negative. Does the patient have a suspected source of infection? No. Patient's initial sepsis screen is negative. 02:23 Method Of Arrival: EMS: [facility] jd3 02:23 Acuity: ARIEL 2 jd3 02:26 Care prior to arrival: Medication(s) given: Albuterol Neb Atrovent Neb. jd3 Historical: - Allergies: 02:28 Benadryl; jd3 - Home Meds: 02:28 None [Active]; jd3 - PMHx: 02:28 Aneurysm; BRAIN; Atrial Fib; Cancer; PROSTATE; CHF; COPD; Hypertension; Prostate Cancer;jd3 - PSHx: 02:28 brain; prostate; jd3 - Immunization history:: Adult Immunizations up to date. - Social history:: Smoking status: Patient uses tobacco products, smokes one-half pack cigarettes per day, Patient/guardian denies using alcohol, street drugs, The patient lives with family. - Ebola Screening: : Patient negative for fever greater than or equal to 101.5 degrees Fahrenheit, and additional compatible Ebola Virus Disease symptoms. - Family history:: not pertinent. Screenin:37 Abuse screen: Pt is homeless. No abuse noted. Nutritional screening: No deficits noted. jl3 Tuberculosis screening: No symptoms or risk factors identified. Fall Risk None identified. Assessment: 03:39 General: Pt homeless, c/o SOB, dyspnea, respiratory distress. States difficulty jl3 breathing. States "I used ot have a nebulizer machine" but lost it when evicted from home. . General: Appears distressed, uncomfortable, slender, unkempt, Behavior is cooperative, agitated. Pain: Denies pain. Neuro: No deficits noted. Cardiovascular: Heart tones S1 S2 Rhythm is sinus tachycardia. Respiratory: Reports shortness of breath at rest since SOB last 24-48 hours. GI: No deficits noted. : No deficits noted. EENT: No deficits noted. Vital Signs: 02:30 BP 183 / 112; Pulse 105; Resp 32 S; Temp 98.0(O); Pulse Ox 97% on R/A; Weight 77.11 kg jd3 (R); Height 5 ft. 11 in. (180.34 cm) (R); Pain 8/10; 02:30 Body Mass Index 23.71 (77.11 kg, 180.34 cm) jd3 ED Course: 02:23 Patient arrived in ED. jd3 02:25 Triage completed. jd3 02:27 Jose Huitron MD is Attending Physician. ma2 02:30 Arm band placed on. jd3 02:46 X-ray completed. Portable x-ray completed in exam room. Patient tolerated procedure kw well. 02:47 XRAY CXR (1 view) In Process Unspecified. EDMS 02:50 Inserted saline lock: 20 gauge in left antecubital area, using aseptic technique. Blood jd3 collected. 02:55 Matthew Boland, RN is Primary Nurse. jl3 03:22 Notified ED physician of a critical lab result(s). D dimer of 807. fc 04:38 No provider procedures requiring assistance completed. IV discontinued, intact, jl3 bleeding controlled, No redness/swelling at site. Pressure dressing applied. 04:39 Patient has correct armband on for positive identification. jl3 Administered Medications: 03:17 Drug: Tylenol 1000 mg Route: PO; cg 03:18 Drug: Xopenex 1.25 mg Route: Inhalation; jl3 03:18 Drug: AtroVENT Aerosol 0.5 mg Route: Inhalation; jl3 03:18 Drug: SOLU-Medrol 125 mg Route: IVP; Site: right antecubital; jl3 03:38 Drug: Nitro-Bid Ointment 2 % 1 inches Route: Transdermal; Site: anterior chest wall; jl3 04:35 Follow up: Response: No adverse reaction jl3 03:38 Drug: Lasix 40 mg Route: IVP; Site: right antecubital; jl3 04:35 Follow up: Response: No adverse reaction jl3 04:36 CANCELLED (Duplicate Order): NS 0.9% 1000 ml IV at 125 ml/hr continuous jl3 04:37 Drug: Metoprolol TARTRATE (Lopressor) 50 mg Route: PO; jl3 04:56 Follow up: Response: No adverse reaction; Blood pressure is lowered jl3 04:37 CANCELLED (Duplicate Order): NS 0.9% 1000 ml IV at 1000 ml once jl3 Outcome: 03:51 Discharge ordered by . [email or web address] 04:39 Discharged to home ambulatory. jl3 04:39 Condition: stable 04:39 Discharge instructions given to patient. 04:57 Patient left the ED. jl3 Signatures: Dispatcher [employer] EDArmida Bazzi RN RN fc Whitley, Kimberlee kw Lowman, John, RN RN jl3 Adeline Metzger RN RN cg Davies, Jonathon, RN RN jd3 Jose Huitron MD MD [email or web address]
--- NOTE | 2018-06-05 03:52 | EDPHYS ---
Physician Documentation [facility] Name: Mark Terrell Age: 67 yrs Sex: Male : 1950 Arrival Date: 06/05/2018 Time: 02:23 Bed 28 Private MD: ED Physician Jose Huitron HPI: 06/05 03:47 This 67 yrs old Male presents to ER via EMS with complaints of sob. ma2 03:47 Onset: The symptoms/episode began/occurred gradually, 2 day(s) ago. Duration: The ma2 symptoms are chronic. Associated signs and symptoms: Pertinent positives: sob, Pertinent negatives: non-productive cough, diaphoresis, fever. Severity of symptoms: At their worst the symptoms were moderate in the emergency department the symptoms are unchanged. The patient has experienced similar episodes in the past. has hx of copd and chf nstemi here with worsening of his baseline sob and wheezes no chest pain or worsening le bienvenido a. Historical: - Allergies: 02:28 Benadryl; jd3 - Home Meds: 02:28 None [Active]; jd3 - PMHx: 02:28 Aneurysm; BRAIN; Atrial Fib; Cancer; PROSTATE; CHF; COPD; Hypertension; Prostate Cancer;jd3 - PSHx: 02:28 brain; prostate; jd3 - Immunization history:: Adult Immunizations up to date. - Social history:: Smoking status: Patient uses tobacco products, smokes one-half pack cigarettes per day, Patient/guardian denies using alcohol, street drugs, The patient lives with family. - Ebola Screening: : Patient negative for fever greater than or equal to 101.5 degrees Fahrenheit, and additional compatible Ebola Virus Disease symptoms. - Family history:: not pertinent. ROS: 03:47 Constitutional: Negative for fever, chills, and weight loss, Eyes: Negative for injury, ma2 pain, redness, and discharge. 03:47 Cardiovascular: Negative for edema, palpitations. 03:47 Respiratory: Positive for shortness of breath, wheezing, Negative for cough, orthopnea. 03:47 All other systems are negative. Exam: 03:47 Constitutional: This is a well developed, well nourished patient who is awake, alert, ma2 and in no acute distress. Head/Face: Normocephalic, atraumatic. Chest/axilla: Normal chest wall appearance and motion. Nontender with no deformity. No lesions are appreciated. Cardiovascular: Regular rate and rhythm with a normal S1 and S2. No gallops, murmurs, or rubs. Normal PMI, no JVD. No pulse deficits. Abdomen/GI: Soft, non-tender, with normal bowel sounds. No distension or tympany. No guarding or rebound. No evidence of tenderness throughout. 03:47 Neck: Trachea midline, no thyromegaly or masses palpated, and no cervical lymphadenopathy. Supple, full range of motion without nuchal rigidity, or vertebral point tenderness. No Meningismus. 03:47 Respiratory: Breath sounds: wheezing: that is moderate, is heard diffusely. Vital Signs: 02:30 BP 183 / 112; Pulse 105; Resp 32 S; Temp 98.0(O); Pulse Ox 97% on R/A; Weight 77.11 kg jd3 (R); Height 5 ft. 11 in. (180.34 cm) (R); Pain 8/10; 02:30 Body Mass Index 23.71 (77.11 kg, 180.34 cm) jd3 MDM: 02:27 Patient medically screened. ma2 03:47 Differential diagnosis: Anemia Bronchitis Chronic Obstructive Pulmonary Disease ma2 reactive airway disease. Data reviewed: vital signs, nurses notes. Counseling: I had a detailed discussion with the patient and/or guardian regarding: the historical points, exam findings, and any diagnostic results supporting the discharge/admit diagnosis, the presence of at least one elevated blood pressure reading (>120/80) during this emergency department visit, the need for outpatient follow up. ED course: lab although abnormal including troponin and bnp it is unchanged from baseline, patient feels better after breathing treatment and want to be discharged home, his symptoms resolved . 06/05 02:26 Order name: ABG; Complete Time: 03:07 06/05 02:26 Order name: Blood Culture Adult (2) 06/05 02:26 Order name: BMP; Complete Time: 03:45 06/05 02:26 Order name: CBC with Diff; Complete Time: 04:27 06/05 02:26 Order name: Ckmb; Complete Time: 03:45 06/05 02:26 Order name: CPK; Complete Time: 03:45 06/05 02:26 Order name: D-Dimer; Complete Time: 03:45 ma2 06/05 02:26 Order name: Hepatic Function; Complete Time: 03:45 ma2 06/05 02:26 Order name: Lipase; Complete Time: 03:45 ma2 06/05 02:26 Order name: Magnesium; Complete Time: 03:45 ma2 06/05 02:26 Order name: NT PRO-BNP; Complete Time: 03:45 ma2 06/05 02:26 Order name: PT-INR; Complete Time: 03:45 ma2 06/05 02:26 Order name: Ptt, Activated; Complete Time: 03:45 ma2 06/05 02:26 Order name: Troponin (emerg Dept Use Only); Complete Time: 03:45 ma2 06/05 02:26 Order name: XRAY CXR (1 view) ma2 06/05 02:26 Order name: EKG; Complete Time: 02:27 ma2 06/05 02:26 Order name: Cardiac monitoring; Complete Time: 02:55 ma2 06/05 02:26 Order name: EKG - Nurse/Tech; Complete Time: 02:55 ma2 06/05 02:26 Order name: IV Saline Lock; Complete Time: 02:55 ma2 06/05 02:26 Order name: Labs collected and sent; Complete Time: 02:55 ma2 06/05 03:24 Order name: Manual Differential; Complete Time: 04:27 EDMS 06/05 02:26 Order name: O2 Per Protocol; Complete Time: 02:55 ma2 06/05 02:26 Order name: O2 Sat Monitoring; Complete Time: 02:55 ma2 Administered Medications: 03:17 Drug: Tylenol 1000 mg Route: PO; cg 03:18 Drug: Xopenex 1.25 mg Route: Inhalation; jl3 03:18 Drug: AtroVENT Aerosol 0.5 mg Route: Inhalation; jl3 03:18 Drug: SOLU-Medrol 125 mg Route: IVP; Site: right antecubital; jl3 03:38 Drug: Nitro-Bid Ointment 2 % 1 inches Route: Transdermal; Site: anterior chest wall; jl3 04:35 Follow up: Response: No adverse reaction jl3 03:38 Drug: Lasix 40 mg Route: IVP; Site: right antecubital; jl3 04:35 Follow up: Response: No adverse reaction jl3 04:36 CANCELLED (Duplicate Order): NS 0.9% 1000 ml IV at 125 ml/hr continuous jl3 04:37 Drug: Metoprolol TARTRATE (Lopressor) 50 mg Route: PO; jl3 04:56 Follow up: Response: No adverse reaction; Blood pressure is lowered jl3 04:37 CANCELLED (Duplicate Order): NS 0.9% 1000 ml IV at 1000 ml once jl3 Disposition: 06/05/18 03:51 Discharged to Home. Impression: Chronic obstructive pulmonary disease, unspecified. - Condition is Stable. - Discharge Instructions: Chronic Obstructive Pulmonary Disease Exacerbation. - Medication Reconciliation Form, Thank You Letter, Antibiotic Education, Prescription Opioid Use form. - Follow up: Private Physician; When: Tomorrow; Reason: Continuance of care. Signatures: Dispatcher [employer] EDMatthew Hernandez RN RN jl3 Adeline Metzger RN RN cg Davies, Jonathon, RN RN jd3 Jose Huitron MD MD ma2 Corrections: (The following items were deleted from the chart) 04:36 04:36 NS 0.9% 1000 ml IV at 125 ml/hr continuous ordered. 3 jl3 04:37 04:36 NS 0.9% 1000 ml IV at 1000 ml once ordered. 3 3 04:57 03:51 06/05/2018 03:51 Discharged to Home. Impression: Chronic obstructive pulmonary jl3 disease, unspecified. Condition is Stable. Forms are Medication Reconciliation Form, Thank You Letter, Antibiotic Education, Prescription Opioid Use. Follow up: Private Physician; When: Tomorrow; Reason: Continuance of care. ma2
[2018-06-05 04:05] LABS: Anisocytosis 1+; Blood Morphology Comment NOTED (NOT SEEN); Hypochromasia 3+; Ovalocytes 1+; Platelet Estimate ADEQ; Target Cells 2+
[2018-06-05] MEDS ORDERED: METOPROLOL TAR 50 MG TAB ONE (04:44)
[2018-06-05 05:02] VITALS: BP 183/112; TEMP 98; O2SAT 97
--- NOTE | 2018-06-05 08:19 | RAD REPORT ---
EXAM DESCRIPTION: Neo Single View06/05/2018 2:49 am CLINICAL HISTORY: Shortness of breath COMPARISON: May 2018 FINDINGS: Mild bilateral pulmonary opacities. The heart is moderately enlarged. IMPRESSION: Mild CHF
== END 2018-06-05 04:57 | disposition home or self-care (01) ==
LOC: ER 02:17
DX: J44.9 Chronic obstructive pulmonary disease, unspecified (principal); R06.02 Shortness of breath; I48.91 Unspecified atrial fibrillation; C61 Malignant neoplasm of prostate; I10 Essential (primary) hypertension; F17.210 Nicotine dependence, cigarettes, uncomplicated
CPT/HCPCS: 93005; 87040 ×2; 85025; 80048; 36415; 83735; 82550; 85610; 85379; 80076; 85730; 84484; 82553; 83690; 83880; 71045; 82805; 96375; 96374; 99285; J1940; J2930

== ENCOUNTER 2018-06-07 06:05 | Observation (INO) | payer OTHER ==
--- OUTSIDE RECORDS SUMMARY | 2018-06-07 06:07 | XMS REPORT ---
:1950 [facility] Address [address] [place] [address] Care Team Providers Name Role Phone Unavailable [...]
[2018-06-07] MEDS ORDERED: NITROGLYCERIN 1 GM PKT TD ONE (06:33)
[2018-06-07] MEDS ORDERED: FUROSEMIDE 40 MG/4 ML VIAL ONE ×2 (06:33→07:00)
[2018-06-07 06:45] LABS: Protime INR 1.35
[2018-06-07] MEDS ORDERED: ACETAMINOPHEN 325 MG TABLET ONE (06:53)
[2018-06-07 07:03] LABS: Albumin 3.4 g/dL (3.4-5.0); Bilirubin Direct 0.3 mg/dL (0-0.2); Bilirubin Total 0.9 mg/dL (0.2-1.0); Magnesium 2.2 mg/dL (1.8-2.4); Potassium 4.4 mmol/L (3.5-5.1); Protein, Total 6.2 g/dL (6.4-8.2); Troponin (Emerg Dept Use Only) 0.09 ng/mL (0.0-0.045)
[2018-06-07 07:29] LABS: Hematocrit 34.1 % (39.6-49.0); MPV 9.1 fL (7.6-11.3); RBC Red Blood Cell Count 5.56 M/uL (4.33-5.43)
--- NOTE | 2018-06-07 07:36 | EDPHYS ---
Physician Documentation [facility] Name: Mark Terrell Age: 67 yrs Sex: Male : 1950 Arrival Date: 06/07/2018 Time: 06:06 Bed 3 Private MD: ED Physician Mike Yoo HPI: 06/07 06:23 This 67 yrs old Male presents to ER via EMS with complaints of Shortness Of snw Breath. 06:23 The patient has shortness of breath at rest. Onset: The symptoms/episode began/occurred snw gradually, 1 week(s) ago, and became worse and became persistent. Duration: The symptoms are continuous. The patient's shortness of breath is aggravated by exertion, is alleviated by nothing. Severity of symptoms: At their worst the symptoms were moderate severe. The patient has experienced similar episodes in the past, chronically. The patient has been recently seen by a physician: The patient has been recently seen at the [facility] Emergency Department, for similar complaints. pt is apparently homeless and does not take his medications. frequently hospitalized for same s/s. Historical: - Allergies: 06:10 Benadryl; ak1 - Home Meds: 06:10 None [Active]; ak1 - PMHx: 06:10 Aneurysm; BRAIN; Atrial Fib; Cancer; PROSTATE; CHF; COPD; Prostate Cancer; Hypertension;ak1 - PSHx: 06:10 brain; prostate; ak1 - Immunization history:: Adult Immunizations unknown. - Social history:: Smoking status: Patient uses tobacco products, smokes one-half pack cigarettes per day. - Ebola Screening: : No symptoms or risks identified at this time. ROS: 06:18 Constitutional: Negative for fever, chills, and weight loss, Eyes: Negative for injury, snw pain, redness, and discharge, ENT: Negative for injury, pain, and discharge, Neck: Negative for injury, pain, and swelling. 06:18 Abdomen/GI: Negative for abdominal pain, nausea, vomiting, diarrhea, and constipation, Back: Negative for injury and pain, : Negative for injury, bleeding, discharge, and swelling, MS/Extremity: Negative for injury and deformity, Skin: Negative for injury, rash, and discoloration, Neuro: Negative for headache, weakness, numbness, tingling, and seizure. 06:18 Cardiovascular: Positive for chest pain, edema. 06:18 Respiratory: Positive for shortness of breath, at rest. Exam: 06:18 Head/Face: Normocephalic, atraumatic. Eyes: Pupils equal round and reactive to light, snw extra-ocular motions intact. Lids and lashes normal. Conjunctiva and sclera are non-icteric and not injected. Cornea within normal limits. Periorbital areas with no swelling, redness, or edema. ENT: Nares patent. No nasal discharge, no septal abnormalities noted. Tympanic membranes are normal and external auditory canals are clear. Oropharynx with no redness, swelling, or masses, exudates, or evidence of obstruction, uvula midline. Mucous membranes moist. Neck: Trachea midline, no thyromegaly or masses palpated, and no cervical lymphadenopathy. Supple, full range of motion without nuchal rigidity, or vertebral point tenderness. No Meningismus. Chest/axilla: Normal chest wall appearance and motion. Nontender with no deformity. No lesions are appreciated. 06:18 Abdomen/GI: Soft, non-tender, with normal bowel sounds. No distension or tympany. No guarding or rebound. No evidence of tenderness throughout. Back: No spinal tenderness. No costovertebral tenderness. Full range of motion. Skin: Warm, dry with normal turgor. Normal color with no rashes, no lesions, and no evidence of cellulitis. MS/ Extremity: Pulses equal, no cyanosis. Neurovascular intact. Full, normal range of motion. Neuro: Awake and alert, GCS 15, oriented to person, place, time, and situation. Cranial nerves II-XII grossly intact. Motor strength 5/5 in all extremities. Sensory grossly intact. Cerebellar exam normal. Normal gait. Psych: Awake, alert, with orientation to person, place and time. Behavior, mood, and affect are within normal limits. 06:18 Constitutional: The patient appears alert, restless, uncomfortable. 06:18 Cardiovascular: Rate: tachycardic, Rhythm: regular, Pulses: no pulse deficits are appreciated, Heart sounds: gallop, Edema: 3+ edema to level of left midcalf, left ankle, left foot, right midcalf, right ankle and right foot. 06:18 Respiratory: mild respiratory distress is noted, Respirations: accessory muscle usage, intercostal retractions, shallow respirations, tachypnea, Breath sounds: are clear throughout. 06:20 ECG was reviewed by the Attending Physician. snw Vital Signs: 06:06 BP 186 / 141; Pulse 110; Resp 20; Temp 97.7(TE); Pulse Ox 95% on R/A; Weight 77.11 kg ak1 (R); Height 5 ft. 11 in. (180.34 cm) (R); Pain 8/10; 06:30 BP 188 / 142; Pulse 103; Resp 20; Pulse Ox 97% on 2 lpm NC; ak1 06:46 BP 190 / 121; Pulse 103; Resp 27; Pulse Ox 96% on 2 lpm NC; ak1 07:40 BP 198 / 121; Pulse 102; Resp 18; Pulse Ox 98% on 2 lpm NC; la1 08:36 BP 151 / 86; Pulse 111; Resp 16; Pulse Ox 99% on R/A; la1 09:53 BP 169 / 99; Pulse 110; Resp 20; Pulse Ox 97% on 2 lpm NC; la1 10:20 BP 166 / 92; Pulse 95; Resp 20 S; Pulse Ox 99% on R/A; Pain 0/10; iw 06:06 Body Mass Index 23.71 (77.11 kg, 180.34 cm) ak1 MDM: 06:07 Patient medically screened. snw 06:54 Data reviewed: vital signs, nurses notes. Data interpreted: Pulse oximetry: on room air snw is 96 %. Interpretation: acceptable. Counseling: I had a detailed discussion with the patient and/or guardian regarding: the historical points, exam findings, and any diagnostic results supporting the discharge/admit diagnosis, the presence of at least one elevated blood pressure reading (>120/80) during this emergency department visit, lab results, radiology results, the need for further work-up and treatment in the hospital, smoking cessation. Physician consultation: Ayan Rodriguez DO was called at 06:55, was contacted at 06:55, regarding admission, to the telemetry unit. would like medications started, additional Lasix 40mg now. 08:00 Other consultation: Dr. Catalan - regarding admit to Obs. snw 09:15 Transition of care: After a detail discussion of the patient's case, care is snw transferred to Ayan Rodriguez DO. 06/07 06:13 Order name: Basic Metabolic Panel; Complete Time: 07:19 snw 06/07 06:13 Order name: CBC with Diff; Complete Time: 08:33 snw 06/07 06:13 Order name: LFT's; Complete Time: 07:19 snw 06/07 06:13 Order name: Magnesium; Complete Time: 07:19 snw 06/07 06:13 Order name: NT PRO-BNP; Complete Time: 07:19 snw 06/07 06:13 Order name: PT-INR; Complete Time: 07:19 snw 06/07 06:13 Order name: Troponin (emerg Dept Use Only); Complete Time: 07:19 snw 06/07 06:13 Order name: XRAY Chest (1 view) snw 06/07 07:33 Order name: Manual Differential; Complete Time: 08:33 EDMS 06/07 06:13 Order name: EKG; Complete Time: 06:13 snw 06/07 06:13 Order name: Cardiac monitoring; Complete Time: 06:16 snw 06/07 06:13 Order name: EKG - Nurse/Tech; Complete Time: 06:29 snw 06/07 06:13 Order name: IV Saline Lock; Complete Time: 06:30 snw 06/07 06:13 Order name: Labs collected and sent; Complete Time: 06:29 snw 06/07 06:13 Order name: O2 Per Protocol; Complete Time: 06:15 snw 06/07 06:13 Order name: O2 Sat Monitoring; Complete Time: 06:16 snw 06/07 07:23 Order name: Diet Heart Healthy; Complete Time: 07:23 dh3 Administered Medications: 06:28 Drug: Lasix 40 mg Route: IVP; Site: left antecubital; ak1 06:33 Follow up: Response: No adverse reaction ak1 06:28 Drug: Nitro-Bid Ointment 2 % 1 inches Route: Transdermal; Site: anterior chest wall; ak1 06:33 Follow up: Response: No adverse reaction ak1 06:45 Drug: Tylenol 650 mg Route: PO; ak1 06:45 Follow up: Response: No adverse reaction ak1 06:57 Drug: Lasix 40 mg Route: IVP; Site: left antecubital; ak1 06:57 Follow up: Response: No adverse reaction ak1 07:41 Drug: hydrALAZINE 10 mg Route: IV; Rate: calculated rate; Site: left antecubital; la1 07:42 Follow up: IV Status: Completed infusion la1 08:20 Drug: hydrALAZINE 10 mg Route: IV; Rate: calculated rate; Site: left antecubital; sg 08:44 Follow up: Response: Blood pressure is lowered; IV Status: Completed infusion la1 Disposition: 19:21 Co-signature as Attending Physician, Mike Yoo MD. Disposition: 06/07/18 07:35 Hospitalization ordered by Ayan Rodriguez for Inpatient Admission. Preliminary diagnosis are Unspecified combined systolic (congestive) and diastolic (congestive) heart failure, Hypertensive heart disease, Hypertensive chronic kidney disease with stage 1 through stage 4 chronic kidney disease, or unspecified chronic kidney disease. - Bed requested for Telemetry/MedSurg (observation). - Status is Inpatient Admission. iw - Condition is Stable. - Problem is an acute exacerbation. - Symptoms have worsened. UTI on Admission? No Signatures: Dispatcher [employer] EDMS Lila Becker Steven RN LASHAY sg Deanne Dutta, DENTAL OFFICE COORDINATOR-C DENTAL OFFICE COORDINATOR-Csnw Sara Enrique RN RN Dilip Jimenez RN RN la1 Crystal Lord RN LASHAY [facility] Mike Yoo MD MD Corrections: (The following items were deleted from the chart) 09:16 07:35 Hospitalization Ordered by Ayan Rodriguez DO for Inpatient Admission. Preliminary snw diagnosis is Unspecified combined systolic (congestive) and diastolic (congestive) heart failure; Hypertensive heart disease; Hypertensive chronic kidney disease with stage 1 through stage 4 chronic kidney disease, or unspecified chronic kidney disease. Bed requested for Telemetry/MedSurg (Inpatient). Status is Inpatient Admission. Condition is Stable. Problem is an acute exacerbation. Symptoms have worsened. UTI on Admission? No. snw 09:20 09:16 Physician consultation: regarding snw snw 10:17 09:16 06/07/2018 07:35 Hospitalization Ordered by Ayan Rodriguez DO for Inpatient bd Admission. Preliminary diagnosis is Unspecified combined systolic (congestive) and diastolic (congestive) heart failure; Hypertensive heart disease; Hypertensive chronic kidney disease with stage 1 through stage 4 chronic kidney disease, or unspecified chronic kidney disease. Bed requested for Telemetry/MedSurg (observation). Status is Inpatient Admission. Condition is Stable. Problem is an acute exacerbation. Symptoms have worsened. UTI on Admission? No. snw 10:50 10:17 06/07/2018 07:35 Hospitalization Ordered by Ayan Rodriguez DO for Inpatient iw Admission. Preliminary diagnosis is Unspecified combined systolic (congestive) and diastolic (congestive) heart failure; Hypertensive heart disease; Hypertensive chronic kidney disease with stage 1 through stage 4 chronic kidney disease, or unspecified chronic kidney disease. Bed requested for Telemetry/MedSurg (observation). Status is Inpatient Admission. Condition is Stable. Problem is an acute exacerbation. Symptoms have worsened. UTI on Admission? No. bd
--- NOTE | 2018-06-07 07:36 | ER ---
Nurse's Notes [facility] Name: Mark Terrell Age: 67 yrs Sex: Male : 1950 Arrival Date: 06/07/2018 Time: 06:06 Bed 3 Private MD: Diagnosis: Unspecified combined systolic (congestive) and diastolic (congestive) heart failure;Hypertensive heart disease;Hypertensive chronic kidney disease with stage 1 through stage 4 chronic kidney disease, or unspecified chronic kidney disease Presentation: 06/07 06:08 Presenting complaint: EMS states: pt picked up from [facility] with Chest pain, SOB. ak1 EMS was called at 0100 and gave pt A\T\A treatment with refusal to transport. pt seen and treated at ER 06/06/18 for same s/s. no resp distress noted at this time. Transition of care: patient was not received from another setting of care. Onset of symptoms is unknown. Risk Assessment: Do you want to hurt yourself or someone else? Patient reports no desire to harm self or others. Initial Sepsis Screen: Does the patient have a suspected source of infection?. Care prior to arrival: A\T\A neb treatment. 06:08 Method Of Arrival: EMS: [facility] ak1 06:08 Acuity: ARIEL 2 ak1 10:00 Initial Sepsis Screen: Does the patient meet any 2 criteria? No. Patient's initial iw sepsis screen is negative. Triage Assessment: 06:10 General: Appears in no apparent distress. Behavior is calm, cooperative. Pain: ak1 Complains of pain in chest. EENT: No signs and/or symptoms were reported regarding the EENT system. Neuro: No deficits noted. Cardiovascular: Reports chest pain, shortness of breath. Respiratory: Reports shortness of breath Onset: The symptoms/episode began/occurred at an unknown time. the patient has mild shortness of breath. GI: No signs and/or symptoms were reported involving the gastrointestinal system. : No signs and/or symptoms were reported regarding the genitourinary system. Derm: No signs and/or symptoms reported regarding the dermatologic system. Musculoskeletal: No signs and/or symptoms reported regarding the musculoskeletal system. Historical: - Allergies: 06:10 Benadryl; ak1 - Home Meds: 06:10 None [Active]; ak1 - PMHx: 06:10 Aneurysm; BRAIN; Atrial Fib; Cancer; PROSTATE; CHF; COPD; Prostate Cancer; Hypertension;ak1 - PSHx: 06:10 brain; prostate; ak1 - Immunization history:: Adult Immunizations unknown. - Social history:: Smoking status: Patient uses tobacco products, smokes one-half pack cigarettes per day. - Ebola Screening: : No symptoms or risks identified at this time. Screenin:12 Abuse screen: Denies threats or abuse. Denies injuries from another. Nutritional ak1 screening: No deficits noted. Tuberculosis screening: No symptoms or risk factors identified. Fall Risk None identified. Assessment: 06:13 Cardiovascular: Rhythm is sinus tachycardia. Respiratory: Airway is patent Respiratory ak1 effort is labored. 06:30 Respiratory: Breath sounds with wheezes. ak1 06:59 Reassessment: Patient appears in no apparent distress at this time. No changes from ak1 previously documented assessment. Patient is alert, oriented x 3, equal unlabored respirations, skin warm/dry/pink. pt placed on LifePack per ERP request. report given to Dilip Washington RN. 08:43 General: Appears in no apparent distress. unkempt, Behavior is calm, cooperative. la1 Neuro: Level of Consciousness is awake, alert, obeys commands, Oriented to person, place, time, situation. Cardiovascular: Capillary refill < 3 seconds Patient's skin is warm and dry. Rhythm is sinus tachycardia. Respiratory: Airway is patent Trachea midline Respiratory effort is even, unlabored, Breath sounds with wheezes. GI: No signs and/or symptoms were reported involving the gastrointestinal system. : No signs and/or symptoms were reported regarding the genitourinary system. Vital Signs: 06:06 BP 186 / 141; Pulse 110; Resp 20; Temp 97.7(TE); Pulse Ox 95% on R/A; Weight 77.11 kg ak1 (R); Height 5 ft. 11 in. (180.34 cm) (R); Pain 8/10; 06:30 BP 188 / 142; Pulse 103; Resp 20; Pulse Ox 97% on 2 lpm NC; ak1 06:46 BP 190 / 121; Pulse 103; Resp 27; Pulse Ox 96% on 2 lpm NC; ak1 07:40 BP 198 / 121; Pulse 102; Resp 18; Pulse Ox 98% on 2 lpm NC; la1 08:36 BP 151 / 86; Pulse 111; Resp 16; Pulse Ox 99% on R/A; la1 09:53 BP 169 / 99; Pulse 110; Resp 20; Pulse Ox 97% on 2 lpm NC; la1 10:20 BP 166 / 92; Pulse 95; Resp 20 S; Pulse Ox 99% on R/A; Pain 0/10; iw 06:06 Body Mass Index 23.71 (77.11 kg, 180.34 cm) ak1 ED Course: 06:06 Patient arrived in ED. ak1 06:07 [facility] D[facility]-C [facility] snw 06:07 Mike Yoo MD is Attending Physician. snw 06:09 Triage completed. ak1 06:10 Arm band placed on Patient placed in an exam room, on a stretcher, on cardiac cath technician, ak1 on pulse oximetry, Patient notified of wait time. 06:12 Patient has correct armband on for positive identification. Bed in low position. Call ak1 light in reach. Side rails up X2. form building supervisor on. Pulse ox on. NIBP on. 06:25 Inserted saline lock: 20 gauge in left antecubital area, using aseptic technique. Blood lp1 collected. By Patricia Bishop, Student Nurse; Observed by Trisha Armando RN. 06:41 XRAY Chest (1 view) In Process Unspecified. EDMS 07:05 Dilip Jimenez, RN is Primary Nurse. la1 07:34 Ayan Rodriguez DO is Hospitalizing Provider. snw 10:33 No provider procedures requiring assistance completed. Patient admitted, IV remains in iw place. Administered Medications: 06:28 Drug: Lasix 40 mg Route: IVP; Site: left antecubital; ak1 06:33 Follow up: Response: No adverse reaction ak1 06:28 Drug: Nitro-Bid Ointment 2 % 1 inches Route: Transdermal; Site: anterior chest wall; ak1 06:33 Follow up: Response: No adverse reaction ak1 06:45 Drug: Tylenol 650 mg Route: PO; ak1 06:45 Follow up: Response: No adverse reaction ak1 06:57 Drug: Lasix 40 mg Route: IVP; Site: left antecubital; ak1 06:57 Follow up: Response: No adverse reaction ak1 07:41 Drug: hydrALAZINE 10 mg Route: IV; Rate: calculated rate; Site: left antecubital; la1 07:42 Follow up: IV Status: Completed infusion la1 08:20 Drug: hydrALAZINE 10 mg Route: IV; Rate: calculated rate; Site: left antecubital; sg 08:44 Follow up: Response: Blood pressure is lowered; IV Status: Completed infusion la1 Output: 06:41 Urine: 350ml (Voided); Total: 350ml. lp1 07:08 Urine: 800ml (Voided); Total: 1150ml. la1 07:28 Urine: 800ml (Voided); Total: 1950ml. la1 Outcome: 07:35 Decision to Hospitalize by Provider. snw 10:33 Admitted to Tele accompanied by tech, via wheelchair, room 405, with oxygen, with iw chart, Report called to Emily 10:33 Condition: good 10:33 Discharge instructions given to patient, Instructed on the need for admit, Demonstrated understanding of instructions. 10:50 Patient left the ED. iw Signatures: Dispatcher [employer] EDMS Keith Gonsalves, RN RN sg Deanne Dutta, COMPUTER AIDED DRAFTER-C COMPUTER AIDED DRAFTER-Csnw Sara Enrique RN LASHAY iw Trisha Armando RN RN lp1 Dilip Jimenez RN RN la1 Crystal Lord RN RN ak1
[2018-06-07] MEDS ORDERED: HYDRALAZINE HCL 20 MG/ML VIAL ONE ×2 (07:49→08:28)
[2018-06-07 08:28] LABS: Anisocytosis 1+; Blood Morphology Comment NOTED (NOT SEEN); Macrocytosis 1+
[2018-06-07 08:29] LABS: Platelet Estimate ADEQ
--- NOTE | 2018-06-07 10:02 | P.HP ---
Certification for Inpatient Patient admitted to: Observation With expected LOS: <2 Midnights Patient will require the following post-hospital care: None Practitioner: I am a practitioner with admitting privileges, knowledge of patient current condition, hospital course, and medical plan of care. Services: Services provided to patient in accordance with Admission requirements found in Title 42 Section 412.3 of the Code of Federal Regulations Patient History Date of Service: 06/07/18 Primary Care Provider: None Reason for admission: Shortness of breath, edema to the lower extremities History of Present Illness: 67-year-old male presented to the emergency room with shortness of breath and edema to the lower extremities. Patient with history of chronic systolic CHF, hypertension, chronic renal disease, and noncompliance with medications. He is homeless. Patient reports increasing edema to the lower extremities over the past several days. Shortness of breath got worse today. He reported some mild chest pain. In the ER patient found to have acute on chronic CHF. Patient given IV Lasix and nitroglycerin. Patient has improved but still short of breath with edema to the lower extremities. Patient admitted for further evaluation and treatment. In the ER when I saw the patient, he remained on nasal cannula. Edema to the lower extremities noted. Patient reports noncompliance with his medication. Patient remains homeless at this time. Patient has had multiple admissions for CHF. Allergies poison chandana extract Allergy (Intermediate, Verified 05/31/18 17:41) Hives diphenhydramine HCl [From Benadryl] Adverse Reaction (Intermediate, Verified 22:44) Hives Home medications list reviewed: Yes Home Medications: Albuterol Inhaler [Ventolin Inhaler*] 2 puff IH TID PRN #1 hfa.aer.ad 05/20/18 Aspirin [Aspirin EC 81 MG] 81 mg PO DAILY #30 tablet. 05/20/18 Lisinopril [Prinivil*] 10 mg PO DAILY #30 tab 05/20/18 Metoprolol Tartrate [Lopressor*] 25 mg PO BID 6AM 6PM #60 tab 05/20/18 Mometasone/Formoterol [Dulera 200 Mcg/5 Mcg Inhaler] 2 puff IH BID #1 inhaler Furosemide [Lasix] 40 mg PO DAILY #30 tablet 06/02/18 Methylprednisolone [Medrol dosepack] 4 mg PO DIRECTED #1 leonila 06/02/18 - Past Medical/Surgical History Diabetic: No -: History of prostate cancer -: Hypertension -: History of brain aneurysm requiring surgery -: CHF, systolic dysfunction -: COPD -: Tobacco abuse -: Hyper low -: Coronary disease, stents x3 to LAD/RCA(Feb 2016) -: Anemia of chronic disease -: GERD -: Prostate surgery -: Brain aneurysm surgery -: Toe surgery R. great toe/childhood -: Heart catheterization-3stents LAD/RCA Psychosocial/ Personal History: Patient is homeless. He is single. He has no children. 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 - Family History Father -: Cancer Notes: brain cancer Mother -: Cancer Notes: pancreatic cancer Brother -: Cancer Notes: lung cancer - Social History Smoking Status: Light Tobacco smoker (1-9 cigarettes/day) Counseled patient to stop smoking for: less than 10 minutes Smoking therapy provided: Yes Patient receptive to therapy: Yes Alcohol use: No CD- Drugs: No Caffeine use: Yes Place of Residence: Homeless Review of Systems General: Weakness, As per HPI Eyes: Unremarkable ENT: Unremarkable Respiratory: Shortness of Breath, SOB with Excertion, As per HPI Cardiovascular: Chest Pain, Edema, As per HPI Gastrointestinal: Unremarkable Genitourinary: Unremarkable Musculoskeletal: Pedal edema Integumentary: Unremarkable Neurological: Unremarkable Lymphatics: Unremarkable Physical Examination - Physical Exam General: Alert, In no apparent distress, Oriented x3, Cooperative HEENT: Atraumatic Neck: Supple Respiratory: Crackles/rales (Crackles to the bases bilateral) Cardiovascular: Abnormal pulses (Mild sinus tachycardia) Gastrointestinal: Normal bowel sounds, Soft and benign, Non-distended, No ascites, No tenderness, No masses, No rebound, No guarding Musculoskeletal: No tenderness, No warmth, Other (Edema to the lower extremities bilateral 1 to 2+) Neurological: Normal speech, Normal strength at 5/5 x4 extr, Normal tone, Normal affect - Studies Laboratory Data (last 24 hrs) 06/07/18 06:25: PT 15.8 H, INR 1.35 06/07/18 06:25: WBC 13.5 H, Hgb 9.8 L, Hct 34.1 L, Plt Count 228 D 06/07/18 06:25: Sodium 143, Potassium 4.4, BUN 35 H, Creatinine 1.38 H, Glucose 165 H, Magnesium 2.2, Total Bilirubin 0.9, AST 39 H, ALT 60, Alkaline Phosphatase 108 Assessment and Plan - Plan Impression: Shortness of breath, edema to the lower extremity and chest pain secondary to acute on chronic systolic CHF complicated with noncompliance with medication and follow up Hypertension COPD Chronic renal disease, stage III Tobacco abuse Anemia of chronic disease Poor social situation Plan: Shortness of breath, edema to the lower extremity and chest pain secondary to acute on chronic systolic CHF complicated with noncompliance with medication and follow up: Patient will be admitted for treatment and observation. Will continue IV Lasix 40 mg twice daily. Will maintain sats above 90%. Will wean off oxygen. Will provide DVT prophylaxis-Lovenox. Will recheck chest x-ray tomorrow. Will have respiratory continue to follow closely. Will also provide medication for hypertension, COPD. Anticipate discharge in the next 24 hr. Compliance with medication and follow up addressed in detail. Advanced directives addressed. Patient wishes to be DNR. Will check with social work coordinator to see what options the patient has in order to help patient get medication and follow up. If provided with help multiple readmissions could be avoided. I will turn the service over to the hospital team tomorrow. I will go over the plan of care with them. Hypertension: Restart metoprolol 25 mg 1 pill twice daily and lisinopril 10 mg daily. Will adjust accordingly. COPD: Will provide Advair and COPD medication. Will wean off oxygen. Will maintain sats above 90%. Respiratory consulted to help in this process. Chronic renal disease, stage III: Will monitor closely. This has remained stable. Tobacco abuse: Will provide nicotine patch. Patient counseled on tobacco cessation. Anemia of chronic disease: Overall stable. Will monitor closely. Poor social situation: Will check with social work coordinator to see if they can help with his current homeless situation. Discharge Plan: Home Plan to discharge in: 24 Hours - Advance Directives Does patient have a Living Will: No Does patient have a Durable POA for Healthcare: No - Code Status/Comfort Care Code Status Assessed: Yes (Patient is DNR) Time Spent Managing Pts Care (In Minutes): 55
[2018-06-07] MEDS ORDERED: ONDANSETRON 4 MG/2 ML VIAL IV PRN (10:50)
[2018-06-07] MEDS ORDERED: ALBUTEROL 2.5 MG/3 ML NEB SOL NEB PRN (10:50)
[2018-06-07] MEDS ORDERED: IPRATROPIUM BROM 0.5MG/2.5ML NEB PRN (10:50)
[2018-06-07] MEDS ORDERED: ACETAMINOPHEN 500 MG TAB PO PRN (10:50)
[2018-06-07] MEDS ORDERED: NITROGLYCERIN 0.4 MG/TAB SL PRN (10:50)
--- NOTE | 2018-06-07 11:48 | RAD REPORT ---
EXAM DESCRIPTION: RAD - Chest Single View - 06/07/2018 6:41 am CLINICAL HISTORY: CHEST PAIN Chest pain. COMPARISON: Chest Single View dated 06/05/2018; Chest Single View dated 05/31/2018; Chest Single View d ated 05/26/2018; Chest Pa And Lat (2 Views) dated 05/20/2018 FINDINGS: Portable technique limits examination quality. Mild to moderate interstitial pulmonary edema is seen. The heart is moderately enlarged in size. Nasrin ral healing posterior left rib fracture seen. IMPRESSION: Mild of moderate CHF versus volume overload pattern.
[2018-06-07] MEDS: ENOXAPARIN 40 MG/0.4 ML SQ SCH (11:51)
[2018-06-07] MEDS: NICOTINE 21 MG/PAT TD SCH (11:51)
[2018-06-07 12:04] LABS: Urine Appearance CLEAR; Urine Bilirubin NEGATIVE (NEG); Urine Blood NEGATIVE (NEG); Urine Color YELLOW; Urine Glucose 1+ (NEG); Urine Protein NEGATIVE (NEG); Urine Specific Gravity <=1.005 (1.005-1.030); Urine Urobilinogen 0.2 mg/dL (0.2-1.0); Urine pH 7.5 (5.0-7.0)
[2018-06-07 12:17] LABS: Urine Microscopic Reflex NO UMIC
[2018-06-07] MEDS: FUROSEMIDE 40 MG/4 ML VIAL IV SCH (17:08)
[2018-06-07] MEDS: METOPROLOL TAR 25 MG TAB PO SCH (17:08)
[2018-06-07] MEDS: HYDRALAZINE HCL 20 MG/ML VIAL IV PRN (18:29)
[2018-06-07 19:31] LABS: CKMB Creatine Kinase MB 4.3 ng/mL (0.3-3.6); Troponin I 0.1 ng/mL (0.0-0.045)
[2018-06-07] MEDS: FAMOTIDINE 20 MG TAB PO SCH (20:07)
[2018-06-07] MEDS ORDERED: DULERA 200/5 (MOMETASONE/FORMOTEROL) INHALER IH SCH (21:00)
[2018-06-07] MEDS ORDERED: ATORVASTATIN 40 MG TAB PO SCH (21:00)
[2018-06-07] MEDS ORDERED: DULERA 100/5 (MOMETASONE/FORMOTEROL) INHALER IH SCH (21:00)
[2018-06-08 04:53] VITALS: TEMP 99
[2018-06-08 05:01] LABS: Absolute Monocytes 1.3 K/uL (0.1-1.3); Absolute Neutrophil 5.6 K/uL (1.8-8.0); Basophils % 0.3 % (0-1.3); Eosinophils % 2.7 % (0-4.4); Lymphocytes % 29.5 % (15.3-44.8); MPV 9.6 fL (7.6-11.3); Monocytes % 13.1 % (3.3-12.3)
[2018-06-08 05:06] VITALS: BMI 24.5
[2018-06-08 05:18] LABS: Magnesium 2.3 mg/dL (1.8-2.4); Potassium 3.7 mmol/L (3.5-5.1)
[2018-06-08] MEDS: HYDRALAZINE HCL 20 MG/ML VIAL IV PRN (05:29)
[2018-06-08] MEDS: METOPROLOL TAR 25 MG TAB PO SCH (05:29)
--- NOTE | 2018-06-08 07:55 | RAD REPORT ---
EXAM DESCRIPTION: RAD - Chest Pa And Lat (2 Views) - 06/08/2018 6:31 am CLINICAL HISTORY: CHF COMPARISON: June 07 TECHNIQUE: PA and lateral views of the chest were obtained. FINDINGS: The lungs are normal volume. Vasculature and lung markings have decreased significantly i n prominence. Heart size has decreased. No new mass or consolidation. Heart size is normal and centra l vasculature is within normal limits. No pleural effusion or pneumothorax seen. No acute bony find ing noted. No aortic abnormality. IMPRESSION: Significant improvement in the CHF/ volume overload pattern from prior day.
[2018-06-08] MEDS: NICOTINE 21 MG/PAT TD SCH (08:55)
[2018-06-08] MEDS: ENOXAPARIN 40 MG/0.4 ML SQ SCH (08:56)
[2018-06-08] MEDS: FUROSEMIDE 40 MG/4 ML VIAL IV SCH (08:56)
[2018-06-08] MEDS: FAMOTIDINE 20 MG TAB PO SCH (08:57)
[2018-06-08 08:58] VITALS: BP 177/100
[2018-06-08] MEDS ORDERED: POTASSIUM 25 MEQ EFFERV TAB PO ONE (09:00)
[2018-06-08] MEDS ORDERED: FOLIC ACID 1 MG TABLET PO SCH (09:00)
[2018-06-08] MEDS ORDERED: LISINOPRIL 10 MG TAB PO SCH (09:00)
[2018-06-08] MEDS ORDERED: ASPIRIN EC 81 MG TAB PO SCH (09:00)
[2018-06-08] MEDS ORDERED: THIAMINE HCL 100 MG TABLET PO SCH (09:00)
[2018-06-08 10:13] VITALS: O2SAT 96
--- NOTE | 2018-06-08 17:33 | P.SSS ---
Patient History Date of Service: 06/08/18 Primary Care Provider: None Reason for admission: Shortness of breath, edema to the lower extremities History of Present Illness: 67-year-old male admitted to the hospital for CHF exacerbation Allergies poison chandana extract Allergy (Intermediate, Verified 05/31/18 17:41) Hives diphenhydramine HCl [From Benadryl] Adverse Reaction (Intermediate, Verified 22:44) Hives Home Medications: Albuterol Inhaler [Ventolin Inhaler*] 2 puff IH TID PRN #1 hfa.aer.ad 05/20/18 Aspirin [Aspirin EC 81 MG] 81 mg PO DAILY #30 tablet. 05/20/18 Lisinopril [Prinivil*] 10 mg PO DAILY #30 tab 05/20/18 Metoprolol Tartrate [Lopressor*] 25 mg PO BID 6AM 6PM #60 tab 05/20/18 Mometasone/Formoterol [Dulera 200 Mcg/5 Mcg Inhaler] 2 puff IH BID #1 inhaler Furosemide [Lasix] 40 mg PO DAILY #30 tablet 06/02/18 - Past Medical/Surgical History Has patient received pneumonia vaccine in the past: Yes Diabetic: No -: History of prostate cancer -: Hypertension -: History of brain aneurysm requiring surgery -: CHF, systolic dysfunction -: COPD -: Tobacco abuse -: Hyper low -: Coronary disease, stents x3 to LAD/RCA(Feb 2016) -: Anemia of chronic disease -: GERD -: Prostate surgery -: Brain aneurysm surgery -: Toe surgery R. great toe/childhood -: Heart catheterization-3stents LAD/RCA Psychosocial/ Personal History: Patient is homeless. He is single. He has no children. 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 - Family History Father -: Cancer Notes: brain cancer Mother -: Cancer Notes: pancreatic cancer Brother -: Cancer Notes: lung cancer - Social History Smoking Status: Light Tobacco smoker (1-9 cigarettes/day) Alcohol use: No CD- Drugs: No Caffeine use: Yes Place of Residence: Homeless Review of Systems 10-point ROS is otherwise unremarkable Physical Examination - Vital Signs Temperature: 99 F Blood Pressure: 177/100 Pulse: 86 Respirations: 22 Pulse Ox (%): 96 - Physical Exam General: Alert, In no apparent distress HEENT: Atraumatic, PERRLA, Mucous membr. moist/pink, EOMI, Sclerae nonicteric Neck: Supple, 2+ carotid pulse no bruit, No LAD, Without JVD or thyroid abnormality Respiratory: Clear to auscultation bilaterally, Normal air movement Cardiovascular: Regular rate/rhythm, Normal S1 S2 Gastrointestinal: Normal bowel sounds, No tenderness Musculoskeletal: No tenderness Integumentary: No rashes Neurological: Normal gait, Normal speech, Normal strength at 5/5 x4 extr, Normal tone, Normal affect Lymphatics: No axilla or inguinal lymphadenopathy - Diagnosis (Problem(s)) (1) Acute on chronic systolic (congestive) heart failure Onset Date: 09/01/17 Status: Acute (2) COPD exacerbation Onset Date: 12/19/15 Status: Acute (3) Coronary artery disease Onset Date: 01/26/18 Status: Chronic Qualifiers: Coronary Disease-Associated Artery/Lesion type: [place] artery [place] vs. transplanted heart: [place] heart Associated angina: without angina Qualified Code(s): I25.10 - Atherosclerotic heart disease of [place] coronary artery without angina pectoris (4) Chronic renal disease Onset Date: 03/31/17 Status: Chronic Qualifiers: Chronic kidney disease stage: stage 3 (moderate) (5) GERD (gastroesophageal reflux disease) Onset Date: 02/17/17 Status: Chronic Qualifiers: Esophagitis presence: without esophagitis Qualified Code(s): K21.9 - Gastro -esophageal reflux disease without esophagitis (6) History of prostate cancer Status: Chronic (7) Hyperlipidemia Onset Date: 07/19/16 Status: Chronic Qualifiers: (8) Hypertension Onset Date: 02/05/16 Status: Chronic Qualifiers: (9) Nicotine dependence Onset Date: 04/03/17 Status: Chronic Qualifiers: (10) Noncompliance Onset Date: 03/18/16 Status: Chronic (11) Tobacco abuse Onset Date: 02/05/16 Status: Chronic (12) Type 2 diabetes mellitus Onset Date: 12/10/16 Status: Chronic Qualifiers: Treatment Summary: The patient is a 67-year-old male, who is homeless, has multiple medical problems including hypertension, CHF, COPD, continues to smoke, and is a frequent flyer to the hospital with multiple readmissions to our service for CHF exacerbation due to noncompliance with medical treatment. The patient has been given every opportunity including purchasing medications for him by physician who took care of him previously along with assistance to go to [employer]. However, the patient has refused. The patient comes in with shortness of breath, similar symptoms as previous workup showed volume overload. The patient was started on IV Lasix, steroids, and breathing treatments. The patient did have significant improvement. He diuresed well. His blood pressure remained stable. He was afebrile. The patient had good urinary output. The patient was then cleared for discharge. He was on room air. Dyspnea had significantly improved. He was no longer short of breath while ambulating. The patient was then discharged in a stable condition. - Disposition Disposition: ROUTINE DISCHARGE Condition: FAIR Diet: Regular Activity: Ad kim
== END 2018-06-08 11:42 | disposition home or self-care (01) ==
LOC: ER 06:05 → ERHOLD 09:47 → 4TH 10:37
PROVIDERS: ADMIT Family Medicine; ATTEND Family Medicine
DX: I50.23 Acute on chronic systolic (congestive) heart failure (principal); J44.1 Chronic obstructive pulmonary disease with (acute) exacerbation; I13.0 Hypertensive heart and chronic kidney disease with heart failure and stage 1 through stage 4 chronic kidney disease, or unspecified chronic kidney disease; N18.3 Chronic kidney disease, stage 3 (moderate); D63.1 Anemia in chronic kidney disease; E11.22 Type 2 diabetes mellitus with diabetic chronic kidney disease; E78.5 Hyperlipidemia, unspecified; F17.210 Nicotine dependence, cigarettes, uncomplicated; K21.9 Gastro-esophageal reflux disease without esophagitis; Z59.0 Homelessness; Z91.14 Patient's other noncompliance with medication regimen; Z95.5 Presence of coronary angioplasty implant and graft; Z85.46 Personal history of malignant neoplasm of prostate
CPT/HCPCS: 96365; 85025 ×2; 80048 ×2; 36415; 83735 ×2; 82550; 85610; 82962; 80076; 81003; 84484 ×2; 82553; 83880; 71045; 71046; 96375; 99285; J0360 ×3; J1940 ×4; J1650 ×2; G0378 ×2; J7606

== ENCOUNTER 2018-06-10 20:26 | Inpatient (IN) | payer OTHER ==
--- OUTSIDE RECORDS SUMMARY | 2018-06-10 20:28 | XMS REPORT ---
:1950 [facility] Address [address] [place] [address] Care Team Providers Name Role Phone Unavailable [...]
[2018-06-10] MEDS ORDERED: IPRATROPIUM BROM 0.5MG/2.5ML ONE (20:57)
[2018-06-10] MEDS ORDERED: METHYLPREDNISOLONE 125 MG INJ ONE (21:26)
[2018-06-10] MEDS ORDERED: FUROSEMIDE 20 MG/ 2ML VIAL ONE ×2 (21:27→22:26)
[2018-06-10] MEDS ORDERED: LEVALBUTEROL 1.25 MG/3 ML NEB ONE (21:27)
[2018-06-10] MEDS ORDERED: METOPROLOL TAR 50 MG TAB ONE (21:27)
[2018-06-10] MEDS ORDERED: ACETAMINOPHEN 325 MG TABLET ONE (21:28)
[2018-06-10] MEDS ORDERED: MORPHINE 2 MG/ML SYR ONE (21:28)
[2018-06-10] MEDS ORDERED: ONDANSETRON 4 MG/2 ML VIAL ONE (21:28)
[2018-06-10 21:30] LABS: Protime INR 1.19
[2018-06-10 21:37] LABS: Absolute Lymphocytes (CBC) 2.8 K/uL (0.7-4.9); Absolute Monocytes 1.8 K/uL (0.1-1.3); Absolute Neutrophil 7.6 K/uL (1.8-8.0); Basophils % 1.2 % (0-1.3); Eosinophils % 2.5 % (0-4.4); Hematocrit 32.6 % (39.6-49.0); MPV 9.3 fL (7.6-11.3); Monocytes % 14.2 % (3.3-12.3); RBC Red Blood Cell Count 5.36 M/uL (4.33-5.43)
[2018-06-10 21:49] LABS: Albumin 3.2 g/dL (3.4-5.0); Bilirubin Direct 0.2 mg/dL (0-0.2); Bilirubin Total 0.6 mg/dL (0.2-1.0); Magnesium 2.3 mg/dL (1.8-2.4); Potassium 4.1 mmol/L (3.5-5.1); Protein, Total 6.2 g/dL (6.4-8.2); Troponin (Emerg Dept Use Only) 0.11 ng/mL (0.0-0.045)
--- NOTE | 2018-06-10 22:02 | ER ---
Nurse's Notes [facility] Name: Mark Terrell Age: 67 yrs Sex: Male : 1950 Arrival Date: 06/10/2018 Time: 20:27 Bed 30 Private MD: Diagnosis: Unspecified combined systolic (congestive) and diastolic (congestive) heart failure;Essential (primary) hypertension;Chronic obstructive pulmonary disease, unspecified;Dyspnea Presentation: 06/10 20:34 Presenting complaint: Patient states: Shortness of breath that began 1 hour ago; States lp1 "I feel like I can't catch my breath". Transition of care: patient was not received from another setting of care. Onset of symptoms was June 10, 2018. Risk Assessment: Do you want to hurt yourself or someone else? Patient reports no desire to harm self or others. Initial Sepsis Screen: Does the patient meet any 2 criteria? RR > 20 per min. HR > 90 bpm. Yes. Care prior to arrival: None. 20:34 Method Of Arrival: Wheelchair lp1 20:34 Acuity: ARIEL 3 lp1 20:56 Initial Sepsis Screen: Does the patient have a suspected source of infection? Yes: lp1 Productive cough/pneumonia If YES to both, name of provider notified: Satish Catalan MD. Triage Assessment: 20:37 General: Appears uncomfortable. Respiratory: Respiratory effort is labored, Respiratory lp1 pattern is symmetrical. 20:55 General: Appears Behavior is calm, cooperative. Respiratory: Reports shortness of rv breath at rest labored breathing Onset: The symptoms/episode began/occurred today, the patient has moderate shortness of breath. Historical: - Allergies: 20:36 Benadryl; lp1 - Home Meds: 20:36 None [Active]; lp1 - PMHx: 20:36 Aneurysm; BRAIN; Atrial Fib; Cancer; PROSTATE; CHF; COPD; Hypertension; Prostate Cancer;lp1 - Immunization history:: Adult Immunizations unknown. - Social history:: Smoking status: Patient uses tobacco products, smokes one-half pack cigarettes per day. - Ebola Screening: : No symptoms or risks identified at this time. - Family history:: not pertinent. Screenin:37 Abuse screen: Denies threats or abuse. Denies injuries from another. Nutritional lp1 screening: No deficits noted. Tuberculosis screening: No symptoms or risk factors identified. 20:56 Fall Risk None identified. rv Assessment: 20:53 General: Appears in no apparent distress. uncomfortable, ill, Behavior is calm, rv cooperative. Pain: Denies pain. Neuro: Level of Consciousness is awake, alert, obeys commands, Oriented to person, place, time, situation. Cardiovascular: Capillary refill < 3 seconds Rhythm is sinus rhythm with unifocal PVCs. Respiratory: Airway is patent Breath sounds with crackles bilaterally. GI: No signs and/or symptoms were reported involving the gastrointestinal system. : No signs and/or symptoms were reported regarding the genitourinary system. EENT: No signs and/or symptoms were reported regarding the EENT system. Derm: Skin is intact. Musculoskeletal: No signs and/or symptoms reported regarding the musculoskeletal system. 23:02 Reassessment: Patient appears in no apparent distress at this time. Patient and/or rv family updated on plan of care and expected duration. Pain level reassessed. Patient is alert, oriented x 3, equal unlabored respirations, skin warm/dry/pink. Patient states symptoms have improved. Vital Signs: 20:36 BP 193 / 114; Pulse 101; Resp 26; Temp 98.4(O); Pulse Ox 97% on R/A; Weight 78.02 kg; lp1 Height 5 ft. 11 in. (180.34 cm); 21:00 BP 188 / 112; Pulse 93; Resp 29 S; Pulse Ox 99% on Nebulizer Mask; rv 21:30 BP 177 / 117 RA; Pulse 95; Resp 35 S; Pulse Ox 100% on Nebulizer Mask; rv 22:00 BP 188 / 117 LA Supine; Pulse 98; Resp 29 S; Pulse Ox 100% 2 lpm ; rv 22:30 BP 148 / 110 LA Supine; Pulse 85; Resp 26 S; Pulse Ox 96% on R/A; rv 20:36 Body Mass Index 23.99 (78.02 kg, 180.34 cm) lp1 ED Course: 20:27 Patient arrived in ED. do 20:36 Triage completed. lp1 20:36 Arm band placed on. lp1 20:50 Inserted saline lock: 20 gauge in right forearm, using aseptic technique. Blood rv collected. 20:50 First set of blood cultures drawn by me. rv 20:53 Harley, Andrew, RN is Primary Nurse. rv 20:53 Satish Catalan MD is Attending Physician. mónica 20:55 Patient has correct armband on for positive identification. Placed in gown. Bed in low rv position. Call light in reach. Side rails up X 1. dissolver operator on. Pulse ox on. NIBP on. 21:28 X-ray completed. Portable x-ray completed in exam room. Patient tolerated procedure ls3 well. 21:29 XRAY Chest (1 view) In Process Unspecified. EDMS 21:35 First set of blood cultures drawn Second set of blood cultures drawn by me. rv 21:59 Jose Mason MD is Hospitalizing Provider. mónica 06/11 00:32 No provider procedures requiring assistance completed. Patient admitted, IV remains in rv place. Administered Medications: 06/10 21:00 Drug: AtroVENT Aerosol 0.5 mg Route: Inhalation; rv 22:58 Follow up: Response: Marked relief of symptoms rv 21:22 Drug: Lasix 20 mg Route: IVP; Site: right forearm; rv 23:00 Follow up: Response: No adverse reaction rv 21:22 Drug: Lopressor (metoprolol TARTRATE) 50 mg Route: PO; rv 22:59 Follow up: Response: Blood pressure is lowered rv 21:22 Drug: Xopenex 2.5 mg Route: Inhalation; rv 22:58 Follow up: Response: Marked relief of symptoms rv 21:23 Drug: Tylenol 650 mg Route: PO; rv 23:00 Follow up: Response: Temperature is decreased rv 21:24 Drug: SOLU-Medrol 125 mg Route: IVP; Site: right forearm; rv 23:01 Follow up: Response: Marked relief of symptoms rv 21:24 Drug: morphine 2 mg Route: IVP; Site: right forearm; rv 23:00 Follow up: Response: Marked relief of symptoms rv 21:24 Drug: Zofran 4 mg Route: IVP; Site: right forearm; rv 23:00 Follow up: Response: No adverse reaction rv 22:19 Drug: Lasix 20 mg Route: IVP; Site: right forearm; rv 22:57 Follow up: Response: PATIENT URINATED 400ML rv 22:19 Drug: Aspirin 162 mg Route: PO; rv 22:57 Follow up: Response: No adverse reaction rv 22:20 Drug: Nitro-Bid Ointment 2 % 1 inches Route: Transdermal; Site: anterior chest wall; rv 22:58 Follow up: Response: Marked relief of symptoms rv Outcome: 22:02 Decision to Hospitalize by Provider. mónica 06/11 00:33 Admitted to Med/surg accompanied by tech, via wheelchair, room 2223, with chart, Report rv called to SHAMIKA METZ Condition: good Instructed on the need for admit, Demonstrated understanding of instructions. 00:37 Patient left the ED. rv Signatures: Dispatcher [employer] Satish Johnson MD MD mónica Trisha Armando RN RN lp1 Brianna Torres Ronaldo RN RN rv Kathy Reis ls3 Corrections: (The following items were deleted from the chart) 01:06/10 20:34 Initial Sepsis Screen: Does the patient meet any 2 criteria? RR > 20 per lp1 min. HR > 90 bpm. lp1 06/11 01:11 06/10 20:56 Initial Sepsis Screen: Does the patient have a suspected source of lp1 infection? No. Patient's initial sepsis screen is negative. rv 06/11 01:12 06/10 20:56 Initial Sepsis Screen: Does the patient have a suspected source of lp1 infection? No. Patient's initial sepsis screen is negative. lp1
--- NOTE | 2018-06-10 22:02 | EDPHYS ---
Physician Documentation [facility] Name: Mark Terrell Age: 67 yrs Sex: Male : 1950 Arrival Date: 06/10/2018 Time: 20:27 Bed 30 Private MD: ED Physician Satish Catalan HPI: 06/10 21:12 This 67 yrs old Male presents to ER via Wheelchair with complaints of mónica Breathing Difficulty. 21:12 The patient has shortness of breath at rest, with light activity. Onset: The mónica symptoms/episode began/occurred today. Duration: The symptoms are continuous, and are steadily getting worse. The patient's shortness of breath is aggravated by exertion, light activity, supine position, is alleviated by rest, sitting up, application of supplemental oxygen. Associated signs and symptoms: Pertinent positives: non-productive cough. Severity of symptoms: At their worst the symptoms were moderate. The patient has not experienced similar symptoms in the past. Historical: - Allergies: 20:36 Benadryl; lp1 - Home Meds: 20:36 None [Active]; lp1 - PMHx: 20:36 Aneurysm; BRAIN; Atrial Fib; Cancer; PROSTATE; CHF; COPD; Hypertension; Prostate Cancer;lp1 - Immunization history:: Adult Immunizations unknown. - Social history:: Smoking status: Patient uses tobacco products, smokes one-half pack cigarettes per day. - Ebola Screening: : No symptoms or risks identified at this time. - Family history:: not pertinent. ROS: 21:12 Constitutional: Negative for fever, chills, and weight loss, Eyes: Negative for injury, mónica pain, redness, and discharge, ENT: Negative for injury, pain, and discharge, Neck: Negative for injury, pain, and swelling, Cardiovascular: Negative for chest pain, palpitations, and edema, Abdomen/GI: Negative for abdominal pain, nausea, vomiting, diarrhea, and constipation, Back: Negative for injury and pain, : Negative for injury, bleeding, discharge, and swelling, MS/Extremity: Negative for injury and deformity, Skin: Negative for injury, rash, and discoloration, Neuro: Negative for headache, weakness, numbness, tingling, and seizure. 21:12 Respiratory: Positive for cough, shortness of breath, at rest. Exam: 21:12 Constitutional: This is a well developed, well nourished patient who is awake, alert, mónica and in no acute distress. Head/Face: Normocephalic, atraumatic. Eyes: Pupils equal round and reactive to light, extra-ocular motions intact. Lids and lashes normal. Conjunctiva and sclera are non-icteric and not injected. Cornea within normal limits. Periorbital areas with no swelling, redness, or edema. ENT: Nares patent. No nasal discharge, no septal abnormalities noted. Tympanic membranes are normal and external auditory canals are clear. Oropharynx with no redness, swelling, or masses, exudates, or evidence of obstruction, uvula midline. Mucous membranes moist. Neck: Trachea midline, no thyromegaly or masses palpated, and no cervical lymphadenopathy. Supple, full range of motion without nuchal rigidity, or vertebral point tenderness. No Meningismus. Chest/axilla: Normal chest wall appearance and motion. Nontender with no deformity. No lesions are appreciated. Abdomen/GI: Soft, non-tender, with normal bowel sounds. No distension or tympany. No guarding or rebound. No evidence of tenderness throughout. Back: No spinal tenderness. No costovertebral tenderness. Full range of motion. Male : Normal genitalia with no discharge or lesions. Skin: Warm, dry with normal turgor. Normal color with no rashes, no lesions, and no evidence of cellulitis. Neuro: Awake and alert, GCS 15, oriented to person, place, time, and situation. Cranial nerves II-XII grossly intact. Motor strength 5/5 in all extremities. Sensory grossly intact. Cerebellar exam normal. Normal gait. Psych: Awake, alert, with orientation to person, place and time. Behavior, mood, and affect are within normal limits. 21:12 Cardiovascular: Rate: tachycardic, Rhythm: regular, Pulses: Pulses are 4+ in bilateral radial, brachial, femoral, popliteal, posterior tibial and and dorsalis pedis arteries.. Heart sounds: normal, Edema: 2+ edema to level of left midcalf and right midcalf, JVD: is not appreciated. Vital Signs: 20:36 BP 193 / 114; Pulse 101; Resp 26; Temp 98.4(O); Pulse Ox 97% on R/A; Weight 78.02 kg; lp1 Height 5 ft. 11 in. (180.34 cm); 21:00 BP 188 / 112; Pulse 93; Resp 29 S; Pulse Ox 99% on Nebulizer Mask; rv 21:30 BP 177 / 117 RA; Pulse 95; Resp 35 S; Pulse Ox 100% on Nebulizer Mask; rv 22:00 BP 188 / 117 LA Supine; Pulse 98; Resp 29 S; Pulse Ox 100% 2 lpm ; rv 22:30 BP 148 / 110 LA Supine; Pulse 85; Resp 26 S; Pulse Ox 96% on R/A; rv 20:36 Body Mass Index 23.99 (78.02 kg, 180.34 cm) lp1 MDM: 20:53 Patient medically screened. [facility] 21:14 Data reviewed: vital signs, nurses notes, lab test result(s), EKG, radiologic studies, mónica plain films. 06/10 21:09 Order name: Basic Metabolic Panel; Complete Time: 21:58 [facility] 06/10 21:09 Order name: CBC with Diff [facility] 06/10 21:09 Order name: LFT's; Complete Time: 21:58 [facility] 06/10 21:09 Order name: Magnesium; Complete Time: 21:58 [facility] 06/10 21:09 Order name: NT PRO-BNP; Complete Time: 21:58 [facility] 06/10 21:09 Order name: PT-INR; Complete Time: 21:58 [facility] 06/10 21:09 Order name: Troponin (emerg Dept Use Only); Complete Time: 21:58 [facility] 06/10 21:12 Order name: Blood Culture Adult (2) [facility] 06/10 21:12 Order name: Procalcitonin [facility] 06/10 21:45 Order name: CBC Smear Scan EDIN 06/10 23:08 Order name: CBC with Automated Diff EDMS 06/10 23:08 Order name: CBC with Automated Diff EDMS 06/10 23:08 Order name: Comprehensive Metabolic Panel EDMS 06/10 23:08 Order name: Comprehensive Metabolic Panel EDMS 06/10 21:09 Order name: XRAY Chest (1 view) [facility] 06/10 23:08 Order name: Magnesium EDMS 06/10 23:08 Order name: Magnesium EDMS 06/10 23:08 Order name: Phosphorus EDMS 06/10 23:08 Order name: Phosphorus EDMS 06/10 23:08 Order name: NT PRO-BNP EDMS 06/10 23:08 Order name: NT PRO-BNP EDMS 06/10 21:09 Order name: EKG; Complete Time: 21:10 [facility] 06/10 21:09 Order name: Cardiac monitoring; Complete Time: 21:33 [facility] 06/10 21:09 Order name: EKG - Nurse/Tech; Complete Time: 21:34 [facility] 06/10 21:09 Order name: IV Saline Lock; Complete Time: 21:34 [facility] 06/10 21:09 Order name: Labs collected and sent; Complete Time: 21:34 [facility] 06/10 21:09 Order name: O2 Per Protocol; Complete Time: 21:34 [facility] 06/10 21:09 Order name: O2 Sat Monitoring; Complete Time: 21:34 [facility] 06/10 23:08 Order name: Heart Healthy EDMS Administered Medications: 21:00 Drug: AtroVENT Aerosol 0.5 mg Route: Inhalation; rv 22:58 Follow up: Response: Marked relief of symptoms rv 21:22 Drug: Lasix 20 mg Route: IVP; Site: right forearm; rv 23:00 Follow up: Response: No adverse reaction rv 21:22 Drug: Lopressor (metoprolol TARTRATE) 50 mg Route: PO; rv 22:59 Follow up: Response: Blood pressure is lowered rv 21:22 Drug: Xopenex 2.5 mg Route: Inhalation; rv 22:58 Follow up: Response: Marked relief of symptoms rv 21:23 Drug: Tylenol 650 mg Route: PO; rv 23:00 Follow up: Response: Temperature is decreased rv 21:24 Drug: SOLU-Medrol 125 mg Route: IVP; Site: right forearm; rv 23:01 Follow up: Response: Marked relief of symptoms rv 21:24 Drug: morphine 2 mg Route: IVP; Site: right forearm; rv 23:00 Follow up: Response: Marked relief of symptoms rv 21:24 Drug: Zofran 4 mg Route: IVP; Site: right forearm; rv 23:00 Follow up: Response: No adverse reaction rv 22:19 Drug: Lasix 20 mg Route: IVP; Site: right forearm; rv 22:57 Follow up: Response: PATIENT URINATED 400ML rv 22:19 Drug: Aspirin 162 mg Route: PO; rv 22:57 Follow up: Response: No adverse reaction rv 22:20 Drug: Nitro-Bid Ointment 2 % 1 inches Route: Transdermal; Site: anterior chest wall; rv 22:58 Follow up: Response: Marked relief of symptoms rv Disposition: 06/10/18 22:02 Hospitalization ordered by Jose Mason for Inpatient Admission. Preliminary diagnosis are Unspecified combined systolic (congestive) and diastolic (congestive) heart failure, Essential (primary) hypertension, Chronic obstructive pulmonary disease, unspecified, Dyspnea. - Bed requested for Telemetry/MedSurg (Inpatient). - Status is Inpatient Admission. rv - Condition is Fair. - Problem is new. - Symptoms have improved. UTI on Admission? No Signatures: Dispatcher [employer] EDMS Satish Catalan MD MD cha Pena, Laura, RN RN lp1 Beba Andrade mw2 Andrew Souza, RN RN rv Corrections: (The following items were deleted from the chart) 23:43 22:02 Hospitalization Ordered by Jose Mason MD for Inpatient Admission. Preliminary mw2 diagnosis is Unspecified combined systolic (congestive) and diastolic (congestive) heart failure; Essential (primary) hypertension; Chronic obstructive pulmonary disease, unspecified; Dyspnea. Bed requested for Telemetry/MedSurg (Inpatient). Status is Inpatient Admission. Condition is Fair. Problem is new. Symptoms have improved. UTI on Admission? No. mónica 06/11 00:37 06/10 23:43 06/10/2018 22:02 Hospitalization Ordered by Jose Mason MD for Inpatient rv Admission. Preliminary diagnosis is Unspecified combined systolic (congestive) and diastolic (congestive) heart failure; Essential (primary) hypertension; Chronic obstructive pulmonary disease, unspecified; Dyspnea. Bed requested for Telemetry/MedSurg (Inpatient). Status is Inpatient Admission. Condition is Fair. Problem is new. Symptoms have improved. UTI on Admission? No. mw2
[2018-06-10] MEDS ORDERED: ASPIRIN 81 MG CHEWABLE TABLET ONE (22:26)
[2018-06-10] MEDS ORDERED: NITROGLYCERIN 1 GM PKT TD ONE (22:26)
[2018-06-10 23:00] LABS: Anisocytosis 1+; Blood Morphology Comment NOTED (NOT SEEN); Hypochromasia 2+; Platelet Estimate ADEQ; Urine White Blood Cell Casts OK
[2018-06-10] MEDS ORDERED: ONDANSETRON 4 MG/2 ML VIAL IV PRN (23:02)
[2018-06-10] MEDS ORDERED: MAGNESIUM HYDROXIDE 8% 30 ML PO PRN (23:02)
[2018-06-11] MEDS: FUROSEMIDE 40 MG/4 ML VIAL IV SCH ×3 (01:00→16:15)
[2018-06-11 01:25] VITALS: BMI 24.0
[2018-06-11 04:37] LABS: Hematocrit 33.6 % (39.6-49.0); MPV 9.2 fL (7.6-11.3); RBC Red Blood Cell Count 5.55 M/uL (4.33-5.43)
[2018-06-11 05:03] LABS: Albumin 3.2 g/dL (3.4-5.0); Bilirubin Total 0.6 mg/dL (0.2-1.0); Magnesium 2.4 mg/dL (1.8-2.4); Phosphorus 4.1 mg/dL (2.5-4.9); Potassium 4.9 mmol/L (3.5-5.1); Protein, Total 6.4 g/dL (6.4-8.2)
[2018-06-11 05:16] LABS: Anisocytosis 1+; Blood Morphology Comment NOTED (NOT SEEN); Howell-Jolly Bodies NOTED; Hypochromasia 1+; Ovalocytes 1+; Platelet Estimate ADEQ; Platelets, Giant FEW; Poikilocytosis 1+; Polychromasia 1+
--- NOTE | 2018-06-11 08:18 | EKG ---
Test Date: 2018-06-10 Test Time: 20:41:48 Supervisor Wound: MEASUREMENT RESULTS: Intervals: Rate: 95 NC: 142 QRSD: 108 QT: 392 QTc: 492 Hooks: P: 73 NC: 142 QRS: 88 T: 46 INTERPRETIVE STATEMENTS: Sinus rhythm with premature supraventricular complexes Minimal voltage criteria for LVH, may be normal variant Prolonged QT Abnormal ECG Compared to ECG 06/07/2018 06:05:56 Atrial premature complex(es) now present Left ventricular hypertrophy now present Prolonged QT interval now present Sinus tachycardia no longer present Ventricular premature complex(es) no longer present Right-axis deviation no longer present Electronically Signed On 06-11-18 07:51:11 CDT by Jitendra Willams
--- NOTE | 2018-06-11 08:29 | RAD REPORT ---
EXAM DESCRIPTION: RAD - Chest Single View - 06/10/2018 9:29 pm CLINICAL HISTORY: Cough;Dyspnea Chest pain. COMPARISON: Chest Pa And Lat (2 Views) dated 06/08/2018; Chest Single View dated 06/07/2018; Chest Singl e View dated 06/05/2018; Chest Single View dated 05/31/2018 FINDINGS: Portable technique limits examination quality. Since 06/08/2018, mild worsening in bilateral pulmonary opacities noted most compatible with mild wor sening in pulmonary edema. The heart is moderately enlarged in size. No displaced fractures. IMPRESSION: Mild worsening in CHF/ volume overload pattern.
[2018-06-11] MEDS: ENOXAPARIN 40 MG/0.4 ML SQ SCH (08:31)
--- NOTE | 2018-06-11 10:45 | P.HP ---
Certification for Inpatient Patient admitted to: Observation With expected LOS: <2 Midnights Patient will require the following post-hospital care: None Practitioner: I am a practitioner with admitting privileges, knowledge of patient current condition, hospital course, and medical plan of care. Services: Services provided to patient in accordance with Admission requirements found in Title 42 Section 412.3 of the Code of Federal Regulations Patient History Date of Service: 06/11/18 Reason for admission: SHORTNESS OF BREATH History of Present Illness: Patient is a 67-year-old gentleman who came to the hospital with shortness of breath. Patient comes into the emergency room multiple times every month with shortness of breath. He is not really compliant with his medication. I believe he is homeless and really is unable to take take his medications away his prescribed. The pt comes in repeatedly for recurrent admissions. He was here just a few days ago with similar complaints. At that time he was found to have CHF exacerbation. His chest x-ray from today also reveals worsening fluid overload. Patient will be admitted to the hospital for an acute CHF exacerbation. He does need to get with bilingual social worker and see if there is anything we can provide for him. He his living situation unfortunately dictates that he will not be compliant with his treatment. His long-term prognosis remains poor. Allergies poison chandana extract Allergy (Intermediate, Verified 06/11/18 00:39) Hives diphenhydramine HCl [From Benadryl] Adverse Reaction (Intermediate, Verified 01/19 00:39) Hives Home Medications: NK [No Home Meds] 06/11/18 - Past Medical/Surgical History Has patient received pneumonia vaccine in the past: Yes Diabetic: No -: History of prostate cancer -: Hypertension -: History of brain aneurysm requiring surgery -: CHF, systolic dysfunction -: COPD -: Tobacco abuse -: Hyper low -: Coronary disease, stents x3 to LAD/RCA(Feb 2016) -: Anemia of chronic disease -: GERD -: anemia -: hyperlipidemia -: Prostate surgery -: Brain aneurysm surgery -: Toe surgery R. great toe/childhood -: Heart catheterization-3stents LAD/RCA Psychosocial/ Personal History: Patient is homeless. He is single. He has no children. 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 - Family History Father Medical History: Cancer Notes: brain cancer Mother Medical History: Cancer Notes: pancreatic cancer Brother Medical History: Cancer Notes: lung cancer - Social History Smoking Status: Current every day smoker Alcohol use: No CD- Drugs: No Caffeine use: Yes Place of Residence: Homeless Review of Systems 10-point ROS is otherwise unremarkable Physical Examination - Vital Signs Temperature: 97 F Blood Pressure: 187/107 Pulse: 77 Respirations: 20 Pulse Ox (%): 91 - Physical Exam General: Alert, In no apparent distress, Oriented x3 HEENT: Atraumatic, PERRLA, Mucous membr. moist/pink, EOMI, Sclerae nonicteric Neck: Supple, 2+ carotid pulse no bruit, JVD distended Respiratory: Diminished, Crackles/rales Cardiovascular: Regular rate/rhythm, Normal S1 S2, Systolic murmur Gastrointestinal: Normal bowel sounds, Soft and benign, Non-distended, No tenderness Musculoskeletal: No clubbing, No tenderness, Swelling Integumentary: No rashes, Tenderness/swelling Neurological: Normal gait, Normal speech, Normal strength at 5/5 x4 extr, Normal tone, Sensation intact, Cranial nerves 3-12 intact, Normal affect Lymphatics: No axilla or inguinal lymphadenopathy - Studies Laboratory Data (last 24 hrs) 06/10/18 20:50: PT 13.9 H, INR 1.19 06/10/18 20:50: WBC 12.6 H D, Hgb 9.3 L, Hct 32.6 L, Plt Count 228 06/10/18 20:50: Sodium 143, Potassium 4.1, BUN 21 H, Creatinine 1.18, Glucose 166 H, Magnesium 2.3, Total Bilirubin 0.6, AST 22, ALT 33, Alkaline Phosphatase 105 Assessment & Plan - Problems (Diagnosis) (1) Acute dyspnea Onset Date: 11/15/16 Current Visit: No Status: Acute (2) Acute on chronic systolic (congestive) heart failure Onset Date: 09/01/17 Current Visit: No Status: Acute (3) COPD exacerbation Onset Date: 04/03/17 Current Visit: No Status: Acute (4) Coronary artery disease Onset Date: 01/26/18 Current Visit: No Status: Chronic Qualifiers: (5) Family history of brain aneurysm Current Visit: No Status: Chronic (6) GERD (gastroesophageal reflux disease) Onset Date: 02/17/17 Current Visit: No Status: Chronic Qualifiers: (7) History of prostate cancer Current Visit: No Status: Chronic (8) Type 2 diabetes mellitus Onset Date: 12/10/16 Current Visit: No Status: Chronic Qualifiers: - Plan Plan: 1. Aggressive IV diuresing 2. Cardiac meds 3. Strict I's & O's 4. social work evaluation for possible assistance 5. repeat chest x-ray in 24 hr 6. Long-term prognosis remains poor unless patient is able to get some kind of assistance going forward Discharge Plan: Home Plan to discharge in: 48 Hours - Advance Directives Does patient have a Living Will: No Does patient have a Durable POA for Healthcare: No - Code Status/Comfort Care Code Status Assessed: Yes Code Status: Full Code Critical Care: No Time Spent Managing PTS Care (In Minutes): 40
[2018-06-12] MEDS: FUROSEMIDE 40 MG/4 ML VIAL IV SCH ×3 (00:07→16:46)
[2018-06-12] MEDS: ENOXAPARIN 40 MG/0.4 ML SQ SCH (09:20)
--- NOTE | 2018-06-12 13:28 | P.PN ---
Subjective Date of Service: 06/12/18 Chief Complaint: SHORTNESS OF BREATH Subjective: Other (C/o SOB and Chest Discomfort. States he does not know if he has his medication at home or not and is unable to fill it at thsi time.) Review of Systems 10-point ROS is otherwise unremarkable Physical Examination - Vital Signs Temperature: 98.5 F Blood Pressure: 143/90 Pulse: 58 Respirations: 18 Pulse Ox (%): 98 - Physical Exam General: Alert, Oriented x2, Mild distress Neck: Supple, JVD not distended Respiratory: Normal air movement, Crackles/rales Cardiovascular: Regular rate/rhythm, Normal S1 S2, Edema Gastrointestinal: Normal bowel sounds, No tenderness Musculoskeletal: Swelling (2+ BL LE) Integumentary: No rashes Neurological: Normal speech, Normal tone, Normal affect Lymphatics: No axilla or inguinal lymphadenopathy - Studies Medications List Reviewed: Yes Assessment And Plan - Current Problems (Diagnosis) (1) Acute on chronic systolic (congestive) heart failure Onset Date: 09/01/17 Current Visit: No Status: Acute Plan: Acute on Chronic CHF due to noncompliance with Medication and Diet. -IV lasix for now. Still volume overloaded with BL LE swelling and Crackles on PE -Daily weight, I&O and Fluid restriction -Educated on Diet and medication compliance. -Will talk to CM regarding medication for home. (2) CAD (coronary artery disease) Current Visit: No Status: Chronic Qualifiers: Coronary Disease-Associated Artery/Lesion type: [place] artery [place] vs. transplanted heart: [place] heart Associated angina: without angina Qualified Code(s): I25.10 - Atherosclerotic heart disease of [place] coronary artery without angina pectoris (3) COPD (chronic obstructive pulmonary disease) Onset Date: 03/21/15 Current Visit: No Status: Chronic Qualifiers: COPD type: unspecified COPD Qualified Code(s): J44.9 - Chronic obstructive pulmonary disease, unspecified (4) GERD (gastroesophageal reflux disease) Onset Date: 02/17/17 Current Visit: No Status: Chronic Qualifiers: (5) History of prostate cancer Current Visit: No Status: Chronic (6) Hyperlipidemia Onset Date: 07/19/16 Current Visit: No Status: Chronic Qualifiers: (7) Hypertension Onset Date: 02/05/16 Current Visit: No Status: Chronic Qualifiers: (8) Noncompliance Onset Date: 03/18/16 Current Visit: No Status: Chronic (9) Type 2 diabetes mellitus Onset Date: 12/10/16 Current Visit: No Status: Chronic Qualifiers: Discharge Plan: Home Plan to discharge in: Greater than 2 days - Code Status/Comfort Care Code Status Assessed: Yes Critical Care: No
[2018-06-12] MEDS: ACETAMINOPHEN 500 MG TAB PO PRN (18:27)
[2018-06-13] MEDS: FUROSEMIDE 40 MG/4 ML VIAL IV SCH ×3 (00:53→16:34)
[2018-06-13] MEDS: ACETAMINOPHEN 500 MG TAB PO PRN ×2 (05:32→17:35)
[2018-06-13] MEDS: ENOXAPARIN 40 MG/0.4 ML SQ SCH (07:46)
--- NOTE | 2018-06-13 13:41 | P.PN ---
Subjective Date of Service: 06/13/18 Chief Complaint: SHORTNESS OF BREATH Subjective: Tolerating diet, Improving, C/O voiced (Feels Weak and havign SOB.) Review of Systems 10-point ROS is otherwise unremarkable Physical Examination - Vital Signs Temperature: 97.6 F Blood Pressure: 155/88 Pulse: 89 Respirations: 16 Pulse Ox (%): 94 - Physical Exam General: Alert, In no apparent distress HEENT: Atraumatic, PERRLA, EOMI Neck: Supple, JVD not distended Respiratory: Normal air movement, Crackles/rales, Rhonchi/gurgles Cardiovascular: Regular rate/rhythm, Normal S1 S2, Edema Gastrointestinal: Normal bowel sounds, No tenderness Musculoskeletal: Swelling (2+ ) Integumentary: No rashes Neurological: Normal speech, Normal tone, Normal affect Lymphatics: No axilla or inguinal lymphadenopathy - Studies Medications List Reviewed: Yes Assessment And Plan - Current Problems (Diagnosis) (1) Acute on chronic systolic (congestive) heart failure Onset Date: 09/01/17 Current Visit: No Status: Acute Plan: Acute on Chronic CHF due to noncompliance with Medication and Diet. -IV lasix for now. Still volume overloaded with BL LE swelling and Crackles on PE. Improving but slowly -Daily weight, I&O and Fluid restriction -Educated on Diet and medication compliance. -Will talk to CM regarding medication for home. (2) CAD (coronary artery disease) Current Visit: No Status: Chronic Qualifiers: Coronary Disease-Associated Artery/Lesion type: [place] artery [place] vs. transplanted heart: [place] heart Associated angina: without angina Qualified Code(s): I25.10 - Atherosclerotic heart disease of [place] coronary artery without angina pectoris (3) COPD (chronic obstructive pulmonary disease) Onset Date: 03/21/15 Current Visit: No Status: Chronic Qualifiers: COPD type: unspecified COPD Qualified Code(s): J44.9 - Chronic obstructive pulmonary disease, unspecified (4) GERD (gastroesophageal reflux disease) Onset Date: 02/17/17 Current Visit: No Status: Chronic Qualifiers: (5) History of prostate cancer Current Visit: No Status: Chronic (6) Hyperlipidemia Onset Date: 07/19/16 Current Visit: No Status: Chronic Qualifiers: (7) Hypertension Onset Date: 02/05/16 Current Visit: No Status: Chronic Qualifiers: (8) Noncompliance Onset Date: 03/18/16 Current Visit: No Status: Chronic (9) Type 2 diabetes mellitus Onset Date: 12/10/16 Current Visit: No Status: Chronic Qualifiers: Discharge Plan: Home Plan to discharge in: 48 Hours - Code Status/Comfort Care Code Status Assessed: Yes Critical Care: No
[2018-06-14] MEDS: FUROSEMIDE 40 MG/4 ML VIAL IV SCH ×3 (00:09→16:55)
[2018-06-14] MEDS: ENOXAPARIN 40 MG/0.4 ML SQ SCH (09:21)
--- NOTE | 2018-06-14 11:53 | P.PN ---
Subjective Date of Service: 06/14/18 Chief Complaint: SHORTNESS OF BREATH Subjective: Tolerating diet, Ambulating, Improving, Working w/ PT, Doing well Review of Systems 10-point ROS is otherwise unremarkable Physical Examination - Vital Signs Temperature: 97.4 F Blood Pressure: 151/90 Pulse: 98 Respirations: 18 Pulse Ox (%): 94 - Physical Exam General: Alert, In no apparent distress HEENT: Atraumatic, PERRLA, EOMI Neck: Supple, JVD not distended Respiratory: Normal air movement, Crackles/rales Cardiovascular: Regular rate/rhythm, Normal S1 S2 Gastrointestinal: Normal bowel sounds, No tenderness Musculoskeletal: No tenderness, Swelling (2+) Integumentary: No rashes Neurological: Normal speech, Normal tone, Normal affect Lymphatics: No axilla or inguinal lymphadenopathy - Studies Medications List Reviewed: Yes Assessment And Plan - Current Problems (Diagnosis) (1) Acute on chronic systolic (congestive) heart failure Onset Date: 09/01/17 Current Visit: No Status: Acute Plan: Acute on Chronic CHF due to noncompliance with Medication and Diet. -IV lasix for now. Still volume overloaded with BL LE swelling and Crackles on PE. Improving during the hospital -Daily weight, I&O and Fluid restriction -Educated on Diet and medication compliance. -Will talk to CM regarding medication for home. (2) CAD (coronary artery disease) Current Visit: No Status: Chronic Qualifiers: Coronary Disease-Associated Artery/Lesion type: [place] artery [place] vs. transplanted heart: [place] heart Associated angina: without angina Qualified Code(s): I25.10 - Atherosclerotic heart disease of [place] coronary artery without angina pectoris (3) COPD (chronic obstructive pulmonary disease) Onset Date: 03/21/15 Current Visit: No Status: Chronic Qualifiers: COPD type: unspecified COPD Qualified Code(s): J44.9 - Chronic obstructive pulmonary disease, unspecified (4) GERD (gastroesophageal reflux disease) Onset Date: 02/17/17 Current Visit: No Status: Chronic Qualifiers: (5) History of prostate cancer Current Visit: No Status: Chronic (6) Hyperlipidemia Onset Date: 07/19/16 Current Visit: No Status: Chronic Qualifiers: (7) Hypertension Onset Date: 02/05/16 Current Visit: No Status: Chronic Qualifiers: (8) Noncompliance Onset Date: 03/18/16 Current Visit: No Status: Chronic (9) Type 2 diabetes mellitus Onset Date: 12/10/16 Current Visit: No Status: Chronic Qualifiers: - Plan Pending clinical improvement at this time. Will continue with 1 more day of IV Lasix. If patient has marked improvement on physical exam under clinical status patient then can be switched over to p.o. Lasix and discharged home. Case management consulted for home medication. Discharge Plan: Other Plan to discharge in: Greater than 2 days - Code Status/Comfort Care Code Status Assessed: Yes Critical Care: No
[2018-06-14] MEDS: ACETAMINOPHEN 500 MG TAB PO PRN (18:01)
[2018-06-15] MEDS: FUROSEMIDE 40 MG/4 ML VIAL IV SCH ×2 (00:01→08:20)
[2018-06-15 03:31] VITALS: O2SAT 94
[2018-06-15] MEDS: ACETAMINOPHEN 500 MG TAB PO PRN (05:13)
[2018-06-15] MEDS ORDERED: PANTOPRAZOLE 40MG TABLET PO SCH (06:30)
[2018-06-15] MEDS: ENOXAPARIN 40 MG/0.4 ML SQ SCH (08:20)
--- NOTE | 2018-06-15 14:17 | P.DS ---
Admission Date: 06/12/18 Discharge Date: 06/15/18 Primary Care Provider: None, Patient is homeless Disposition: ROUTINE DISCHARGE Discharge Condition: GOOD Reason for Admission: SHORTNESS OF BREATH Consultations: none Procedures: CXR: COMPARISON: Chest Pa And Lat (2 Views) dated 06/08/2018; Chest Single View dated 06/07/2018; Chest Single View dated 06/05/2018; Chest Single View dated 05/31/2018 FINDINGS: Portable technique limits examination quality. Since 06/08/2018, mild worsening in bilateral pulmonary opacities noted most compatible with mild worsening in pulmonary edema. The heart is moderately enlarged in size. No displaced fractures. IMPRESSION: Mild worsening in CHF/ volume overload pattern. Medical Problem list: Brief History of Present Illness: 59-year-old male presented emergency room with increasing shortness of breath. Patient with multiple admissions for acute on chronic CHF. Patient found to have acute on chronic systolic CHF. Patient was admitted for treatment. Hospital Course: Patient presented with acute on chronic systolic CHF. Patient is homeless and has had multiple admissions for acute on chronic systolic CHF. Patient has poor compliance and follow up. Patient admits not taking his medications. He also admits not following up with a PCP to establish care. The patient was treated during his stay will IV Lasix and fluid restriction. Patient responded well to therapy. At discharge patient is without any significant shortness of breath. Edema has significantly improved to the lower extremities. Room-air saturations within normal range. At discharge patient will continue with Lasix 80 mg 1 pill twice daily. Patient will continue with a 1500 cc per day fluid restriction and low-salt diet. Recommend to follow up with a PCP to establish care and follow up his medical problems. Patient understands the importance of follow up and taking his medications. This is to help prevent recurrent admissions. Will check to see if public health social worker can help arrange for patient to obtain his medication as compliance and follow up is difficult as the patient is homeless. Patient with hypertension. This has remained stable. Recommend to continue with metoprolol 25 mg 1 pill twice daily and lisinopril 10 mg daily. Recommend to maintain blood pressures less 150/80. Further adjustment can be done by his PCP. Patient with COPD. This has remained stable. At discharge patient will continue with Dulera 1 puff twice daily and Pro air 2 puffs 3 times a day as needed for shortness of breath. Patient with tobacco abuse. Tobacco cessation addressed in detail. Cessation education will be provided. Patient with chronic renal failure stage 3. Renal function remained stable at this time. Recommend no further use of nonsteroidal anti-inflammatories. Recommend to recheck lab-BMP in 1-2 weeks to monitor his progress. Vital Signs/Physical Exam: Temp Pulse Resp BP Pulse Ox 98.1 F 81 20 153/81 H 94 06/15/18 08:00 06/15/18 08:20 06/15/18 08:00 06/15/18 08:20 06/15/18 08:00 General: Alert, In no apparent distress, Oriented x3, Cooperative HEENT: Atraumatic Neck: Supple Respiratory: Clear to auscultation bilaterally, Normal air movement Cardiovascular: Normal pulses, Regular rate/rhythm Gastrointestinal: Normal bowel sounds, Soft and benign, Non-distended, No tenderness, No masses, No rebound, No guarding Musculoskeletal: No erythema, No tenderness, No warmth Integumentary: No tenderness/swelling, No erythema, No warmth, No cyanosis Neurological: Normal speech, Normal strength at 5/5 x4 extr, Normal tone Laboratory Data at Discharge: WBC 10.5 K/uL (4.3-10.9) D 06/11/18 04:03 Hgb 9.7 g/dL (13.6-17.9) L 06/11/18 04:03 Hct 33.6 % (39.6-49.0) L 06/11/18 04:03 Plt Count 239 K/uL (152-406) 06/11/18 04:03 PT 13.9 SECONDS (9.5-12.5) H 06/10/18 20:50 INR 1.19 06/10/18 20:50 Sodium 140 mmol/L (136-145) 06/11/18 04:03 Potassium 4.9 mmol/L (3.5-5.1) 06/11/18 04:03 BUN 24 mg/dL (7-18) H 06/11/18 04:03 Creatinine 1.47 mg/dL (0.55-1.3) H 06/11/18 04:03 Glucose 284 mg/dL (74-106) H 06/11/18 04:03 Phosphorus 4.1 mg/dL (2.5-4.9) 06/11/18 04:03 Magnesium 2.4 mg/dL (1.8-2.4) 06/11/18 04:03 Total Bilirubin 0.6 mg/dL (0.2-1.0) 06/11/18 04:03 AST 21 U/L (15-37) 06/11/18 04:03 ALT 34 U/L (12-78) 06/11/18 04:03 Alkaline Phosphatase 94 U/L (45-117) 06/11/18 04:03 Home Medications: Albuterol Sulfate [Proair Hfa] 2 puff IH TID PRN #1 hfa.aer.ad 06/15/18 Aspirin [Aspirin EC 81 MG] 81 mg PO DAILY #90 tablet. 06/15/18 Furosemide [Lasix] 80 mg PO BID #60 tablet 06/15/18 Lisinopril 10 mg PO DAILY #30 tablet 06/15/18 Metoprolol Tartrate [Lopressor*] 25 mg PO BID #60 tab 06/15/18 Mometasone/Formoterol [Dulera 200 Mcg/5 Mcg Inhaler] 1 puff IH BID #1 inhaler New Medications: Albuterol Sulfate [Proair Hfa] 2 puff IH TID PRN #1 hfa.aer.ad PRN Reason: Shortness Of Breath Aspirin [Aspirin EC 81 MG] 81 mg PO DAILY #90 tablet. Furosemide [Lasix] 80 mg PO BID #60 tablet Lisinopril 10 mg PO DAILY #30 tablet Metoprolol Tartrate [Lopressor*] 25 mg PO BID #60 tab Mometasone/Formoterol [Dulera 200 Mcg/5 Mcg Inhaler] 1 puff IH BID #1 inhaler Patient Discharge Instructions: 1. Patient will need to establish care with a PCP to follow up this hospitalization. 2. Patient presented with acute on chronic systolic CHF. Patient with poor compliance and follow up. Patient required IV Lasix and fluid restriction. At discharge patient is without any significant shortness of breath. Room-air saturations within normal range. At discharge patient will continue with Lasix 80 mg 1 pill twice daily. Patient will continue with a 1500 cc per day fluid restriction and low-salt diet. Recommend to follow up with a PCP to follow up his care. Will check to see if public health social worker can help arrange for patient to obtain his medication as compliance and follow up is difficult as the patient is homeless. 3. Patient with hypertension. This has remained stable. Recommend to continue with metoprolol 25 mg 1 pill twice daily and lisinopril 10 mg daily. Recommend to maintain blood pressures less 150/80. Further adjustment can be done by his PCP. 4. Patient with COPD. This has remained stable. At discharge patient will continue with Dulera 1 puff twice daily and Pro air 2 puffs 3 times a day as needed for shortness of breath. 5. Patient with tobacco abuse. Tobacco cessation addressed in detail. Cessation education will be provided. 6. Patient with chronic renal failure stage 3. Recommend no further use of nonsteroidal anti-inflammatories. Recommend to recheck lab-BMP in 1-2 weeks to monitor his progress. Diet: AHA Activity: Fall precautions Time spent managing pt's care (in minutes): 55
[2018-06-15 14:26] VITALS: BP 146/87; TEMP 97.9
== END 2018-06-15 13:42 | disposition home or self-care (01) | DRG 291 ==
LOC: ER 20:26 → ERHOLD 23:12 → 2ND 06-11 00:08 → OBSVTOIN 06-12 13:53
PROVIDERS: ADMIT Hospitalist; ATTEND Hospitalist
DX: I13.0 Hypertensive heart and chronic kidney disease with heart failure and stage 1 through stage 4 chronic kidney disease, or unspecified chronic kidney disease (principal); I50.23 Acute on chronic systolic (congestive) heart failure; N18.3 Chronic kidney disease, stage 3 (moderate); E11.22 Type 2 diabetes mellitus with diabetic chronic kidney disease; J44.9 Chronic obstructive pulmonary disease, unspecified; I25.10 Atherosclerotic heart disease of native coronary artery without angina pectoris; E78.5 Hyperlipidemia, unspecified; Z59.0 Homelessness; K21.9 Gastro-esophageal reflux disease without esophagitis; F17.210 Nicotine dependence, cigarettes, uncomplicated; Z91.19 Patient's noncompliance with other medical treatment and regimen; Z85.46 Personal history of malignant neoplasm of prostate; Z95.5 Presence of coronary angioplasty implant and graft
CPT/HCPCS: 36415; 71045; 80048; 80053; 80076; 83735; 83880; 84100; 84145; 84484; 85025; 85610; 87040; 93005; 96374; 96375; 99285; G0378; J1650; J1940; J2270; J2405; J2930

== ENCOUNTER 2018-06-20 21:45 | Emergency (ER) | payer OTHER ==
--- OUTSIDE RECORDS SUMMARY | 2018-06-20 21:47 | XMS REPORT ---
:1950 [facility] [address] [place] [address] Care Team Providers Name Role Phone Unavailable [...]
[2018-06-20] MEDS ORDERED: METHYLPREDNISOLONE 125 MG INJ ONE (22:21)
[2018-06-20] MEDS ORDERED: ALBUTEROL 2.5 MG/3 ML NEB SOL ONE (22:21)
[2018-06-20] MEDS ORDERED: IPRATROPIUM BROM 0.5MG/2.5ML ONE (22:21)
[2018-06-20] MEDS ORDERED: FUROSEMIDE 40 MG/4 ML VIAL ONE (22:22)
[2018-06-20 22:39] LABS: Absolute Lymphocytes (CBC) 1.9 K/uL (0.7-4.9); Absolute Monocytes 1.8 K/uL (0.1-1.3); Absolute Neutrophil 4.6 K/uL (1.8-8.0); Basophils % 1.4 % (0-1.3); Eosinophils % 1.4 % (0-4.4); Hematocrit 34.3 % (39.6-49.0); Lymphocytes % 22.6 % (15.3-44.8); MPV 9.2 fL (7.6-11.3); Monocytes % 20.8 % (3.3-12.3); RBC Red Blood Cell Count 5.71 M/uL (4.33-5.43)
[2018-06-20 22:43] LABS: Protime INR 1.34
[2018-06-20 22:58] LABS: Albumin 3.5 g/dL (3.4-5.0); Bilirubin Direct 0.2 mg/dL (0-0.2); Bilirubin Total 0.7 mg/dL (0.2-1.0); Magnesium 2.1 mg/dL (1.8-2.4); Potassium 4.7 mmol/L (3.5-5.1); Protein, Total 6.7 g/dL (6.4-8.2); Troponin (Emerg Dept Use Only) 0.1 ng/mL (0.0-0.045)
[2018-06-20 23:42] LABS: Anisocytosis 1+; Blood Morphology Comment NOTED (NOT SEEN); Hypochromasia 1+; Platelet Estimate ADEQ; Urine White Blood Cell Casts OK
[2018-06-20 23:45] LABS: Urine Blood NEGATIVE (NEG); Urine Glucose NEGATIVE (NEG); Urine Protein 1+ (NEG); Urine Specific Gravity 1.015 (1.005-1.030); Urine pH 5.5 (5.0-7.0)
--- NOTE | 2018-06-21 02:04 | ER ---
Nurse's Notes [facility] [place] Name: Mark Terrell Age: 67 yrs Sex: Male : 1950 Arrival Date: 06/20/2018 Time: 21:46 Bed 19 Private MD: Diagnosis: Unspecified combined systolic (congestive) and diastolic (congestive) heart failure Presentation: 06/20 21:48 Presenting complaint: EMS states: shortness of breath and chest pain. Transition of cc3 care: patient was not received from another setting of care. Onset of symptoms was June 20, 2018. Risk Assessment: Do you want to hurt yourself or someone else? Patient reports no desire to harm self or others. Initial Sepsis Screen: Does the patient meet any 2 criteria? No. Patient's initial sepsis screen is negative. Does the patient have a suspected source of infection? No. Patient's initial sepsis screen is negative. Care prior to arrival: None. 21:48 Method Of Arrival: EMS: [facility] cc3 21:48 Acuity: ARIEL 3 cc3 Triage Assessment: 21:48 General: Appears in no apparent distress. uncomfortable, unkempt, Behavior is calm, cc3 cooperative. Pain: Complains of pain in chest. Pain: Pain does not radiate. EENT: No signs and/or symptoms were reported regarding the EENT system. Neuro: Level of Consciousness is awake, alert, obeys commands, Oriented to person, place, time, situation, Appropriate for age. Cardiovascular: Patient's skin is warm and dry. Respiratory: Airway is patent Respiratory effort is even, unlabored, Respiratory pattern is regular, symmetrical. GI: Abdomen is round non-distended. : No signs and/or symptoms were reported regarding the genitourinary system. Derm: No signs and/or symptoms reported regarding the dermatologic system. Musculoskeletal: Circulation, motion, and sensation intact. Range of motion: intact in all extremities. Historical: - Allergies: 21:48 Benadryl; cc3 - PMHx: 21:48 Aneurysm; BRAIN; Atrial Fib; Cancer; PROSTATE; CHF; Hypertension; COPD; Prostate Cancer;cc3 - PSHx: 21:48 aneurysm clip; prostate surgery; cc3 - Immunization history:: Adult Immunizations up to date. - Social history:: Smoking status: Patient uses tobacco products, 5 cigars a day. - Ebola Screening: : No symptoms or risks identified at this time. Screenin:48 Abuse screen: Denies threats or abuse. Denies injuries from another. Nutritional cc3 screening: No deficits noted. Tuberculosis screening: No symptoms or risk factors identified. Fall Risk Ambulatory Aid- None/Bed Rest/Nurse Assist (0 pts). Gait- Normal/Bed Rest/Wheelchair (0 pts) Mental Status- Oriented to own ability (0 pts). Assessment: 21:48 General: see triage assessment. cc3 22:25 Reassessment: Patient appears in no apparent distress at this time. Patient and/or cc3 family updated on plan of care and expected duration. Pain level reassessed. Patient is alert, oriented x 3, equal unlabored respirations, skin warm/dry/pink. 23:30 Reassessment: Patient appears in no apparent distress at this time. Patient and/or cc3 family updated on plan of care and expected duration. Pain level reassessed. Patient is alert, oriented x 3, equal unlabored respirations, skin warm/dry/pink. 04 00:47 Reassessment: Patient appears in no apparent distress at this time. Patient and/or cc3 family updated on plan of care and expected duration. Pain level reassessed. Patient is alert, oriented x 3, equal unlabored respirations, skin warm/dry/pink. 01:30 Reassessment: Patient appears in no apparent distress at this time. Patient and/or cc3 family updated on plan of care and expected duration. Pain level reassessed. Patient is alert, oriented x 3, equal unlabored respirations, skin warm/dry/pink. 02:03 Reassessment: Patient appears in no apparent distress at this time. Patient and/or cc3 family updated on plan of care and expected duration. Pain level reassessed. Patient is alert, oriented x 3, equal unlabored respirations, skin warm/dry/pink. FADI Arnold discharged the patient home but since the patient is homeless and he still wants to sleep FADI De La Rosa said the patient can still stay in his room to sleep, charge nurse Myriam informed and said to keep the patient until daylight. 03:15 Reassessment: Patient appears in no apparent distress at this time. Patient and/or cc3 family updated on plan of care and expected duration. Pain level reassessed. Patient comfortably sleeping. 04:06 Reassessment: Patient appears in no apparent distress at this time. Patient and/or cc3 family updated on plan of care and expected duration. Pain level reassessed. Patient is alert, oriented x 3, equal unlabored respirations, skin warm/dry/pink. 05:38 Reassessment: Patient appears in no apparent distress at this time. Patient comfortably cc3 sleeping, no complaints noted. 06:30 Reassessment: Patient appears in no apparent distress at this time. Patient and/or cc3 family updated on plan of care and expected duration. Pain level reassessed. Vital Signs: 06/20 21:48 BP 154 / 95; Pulse 84; Resp 25 S; Temp 98.5(O); Pulse Ox 100% on R/A; Weight 77.11 kg cc3 (R); Height 5 ft. 11 in. (180.34 cm) (R); 22:45 BP 159 / 86; Pulse 76; Resp 28 S; Pulse Ox 100% on Nebulizer Mask; cc3 23:30 BP 167 / 91; Pulse 108; Resp 25 S; Pulse Ox 96% on R/A; cc3 06/21 00:15 BP 160 / 98; Pulse 108; Resp 30 S; Pulse Ox 97% on 2 lpm NC; cc3 01:05 BP 163 / 93; Pulse 102; Resp 32 S; Pulse Ox 90% on R/A; cc3 01:45 BP 149 / 97; Pulse 103; Resp 26 S; Pulse Ox 93% on R/A; cc3 02:00 BP 138 / 84; Pulse 101; Resp 27 S; Pulse Ox 92% on R/A; cc3 03:30 BP 144 / 91; Pulse 97; Resp 25 S; Pulse Ox 93% on R/A; cc3 05:30 BP 164 / 89; Pulse 93; Resp 26 S; Pulse Ox 96% on R/A; cc3 06:13 BP 145 / 74; Pulse 95; Resp 26 S; Pulse Ox 92% on R/A; cc3 06/20 21:48 Body Mass Index 23.71 (77.11 kg, 180.34 cm) 3 06/20 22:45 ongoing neb treatment 3 ED Course: 21:46 Patient arrived in ED. bb 21:48 Arm band placed on right wrist. Patient notified of wait time. EKG completed in triage. cc3 Results shown to MD. 21:48 Patient has correct armband on for positive identification. Placed in gown. Bed in low cc3 position. Call light in reach. Side rails up X 1. telephone directory distributor driver on. Pulse ox on. NIBP on. 21:51 Rj Arnold NP is PHCP. pm1 21:51 Mike Yoo MD is Attending Physician. pm1 22:05 Maria De Jesus Mckee is Primary Nurse. cc3 22:10 Inserted saline lock: 20 gauge in right antecubital area, using aseptic technique. cc3 Blood collected. 22:30 XRAY Chest (1 view) In Process Unspecified. EDMS 22:45 Triage completed. cc3 06/21 03:00 No provider procedures requiring assistance completed. IV discontinued, intact, cc3 bleeding controlled, No redness/swelling at site. Pressure dressing applied. 07:00 Report given to JASMIN Craft. cc3 Administered Medications: 06/20 22:10 Drug: Albuterol - atroVENT (3:1) (2.5 mg - 0.5 mg) 3 ml Route: Nebulizer; cc3 23:04 Follow up: Response: No adverse reaction; Marked relief of symptoms cc3 22:25 Drug: Lasix 40 mg Route: IVP; Site: right antecubital; cc3 23:04 Follow up: Response: No adverse reaction cc3 22:30 Drug: SOLU-Medrol 125 mg Route: IVP; Site: right antecubital; cc3 23:04 Follow up: Response: No adverse reaction; Marked relief of symptoms cc3 Outcome: 06/21 02:03 Discharge ordered by MD. pm1 07:38 Discharged to home ambulatory. em 07:38 Condition: good 07:38 Discharge instructions given to patient, Instructed on discharge instructions, follow up and referral plans. medication usage, Demonstrated understanding of instructions, follow-up care, medications, Prescriptions given X 1. 07:40 Patient left the ED. em Signatures: Dispatcher [employer] EDVT Venancio Mccabe, JASMIN [employer] em Myriam Roldan RN RN bb Rj Arnold NP TRAFFIC CHECKER pm1 Maria De Jesus Mckee cc3 Corrections: (The following items were deleted from the chart) 06/20 22:49 21:48 BP 154 / 95; Pulse 84bpm; Resp 20bpm; Spontaneous; Pulse Ox 100% RA; Temp 98.5F cc3 Oral; 77.11 kg Reported; Height 5 ft. 11 in. Reported; BMI: 23.7; cc3 06/21 02:30 02:03 Reassessment: Patient appears in no apparent distress at this time. Patient cc3 and/or family updated on plan of care and expected duration. Pain level reassessed. Patient is alert, oriented x 3, equal unlabored respirations, skin warm/dry/pink. FADI Arnold discharged the patient home but since the patient is homeless and he still wants to sleep FADI De La Rosa said the patient can still stay in his room to sleep, charge nurse Myriam informed. cc3 07:40 07:38 Discharge instructions given to patient, Instructed on discharge instructions, em follow up and referral plans. Demonstrated understanding of instructions, follow-up care, em
--- NOTE | 2018-06-21 02:04 | EDPHYS ---
Physician Documentation [facility] Name: Mark Terrell Age: 67 yrs Sex: Male : 1950 Arrival Date: 06/20/2018 Time: 21:46 Bed 19 Private MD: ED Physician Mike Yoo HPI: 06/20 22:05 This 67 yrs old Male presents to ER via EMS with complaints of Shortness of pm1 breath. 22:05 The patient has shortness of breath at rest. Onset: The symptoms/episode began/occurred pm1 yesterday. Duration: The symptoms are chronic, and have existed for years, are continuous. The patient's shortness of breath is aggravated by not taking his Lasix, is alleviated by nothing. Associated signs and symptoms: Pertinent negatives: chest pain, non-productive cough, productive cough, diaphoresis, dizziness, fever, nausea, vomiting. Severity of symptoms: in the emergency department the symptoms are worse. The patient has experienced similar episodes in the past, chronically, and the symptoms today are exactly the same, to previous COPD or CHF exacerbation . Historical: - Allergies: 21:48 Benadryl; cc3 - PMHx: 21:48 Aneurysm; BRAIN; Atrial Fib; Cancer; PROSTATE; CHF; Hypertension; COPD; Prostate Cancer;cc3 - PSHx: 21:48 aneurysm clip; prostate surgery; cc3 - Immunization history:: Adult Immunizations up to date. - Social history:: Smoking status: Patient uses tobacco products, 5 cigars a day. - Ebola Screening: : No symptoms or risks identified at this time. ROS: 22:05 Constitutional: Negative for fever, chills, and weight loss, Eyes: Negative for injury, pm1 pain, redness, and discharge, ENT: Negative for injury, pain, and discharge, Neck: Negative for injury, pain, and swelling, Cardiovascular: Negative for chest pain, palpitations, and edema. 22:05 Abdomen/GI: Negative for abdominal pain, nausea, vomiting, diarrhea, and constipation, Back: Negative for injury and pain, : Negative for injury, bleeding, discharge, and swelling, MS/Extremity: Negative for injury and deformity, Skin: Negative for injury, rash, and discoloration, Neuro: Negative for headache, weakness, numbness, tingling, and seizure. 22:05 Respiratory: Positive for shortness of breath, Negative for cough, sputum production. Exam: 22:05 Constitutional: This is a well developed, well nourished patient who is awake, alert, pm1 and in no acute distress. Head/Face: Normocephalic, atraumatic. Eyes: Pupils equal round and reactive to light, extra-ocular motions intact. Lids and lashes normal. Conjunctiva and sclera are non-icteric and not injected. Cornea within normal limits. Periorbital areas with no swelling, redness, or edema. ENT: Nares patent. No nasal discharge, no septal abnormalities noted. Tympanic membranes are normal and external auditory canals are clear. Oropharynx with no redness, swelling, or masses, exudates, or evidence of obstruction, uvula midline. Mucous membranes moist. Neck: Trachea midline, no thyromegaly or masses palpated, and no cervical lymphadenopathy. Supple, full range of motion without nuchal rigidity, or vertebral point tenderness. No Meningismus. Chest/axilla: Normal chest wall appearance and motion. Nontender with no deformity. No lesions are appreciated. Cardiovascular: Regular rate and rhythm with a normal S1 and S2. No gallops, murmurs, or rubs. Normal PMI, no JVD. No pulse deficits. 22:05 Abdomen/GI: Soft, non-tender, with normal bowel sounds. No distension or tympany. No guarding or rebound. No evidence of tenderness throughout. Back: No spinal tenderness. No costovertebral tenderness. Full range of motion. Skin: Warm, dry with normal turgor. Normal color with no rashes, no lesions, and no evidence of cellulitis. MS/ Extremity: Pulses equal, no cyanosis. Neurovascular intact. Full, normal range of motion. 22:05 Respiratory: the patient does not display signs of respiratory distress, Respirations: normal, Breath sounds: rhonchi, are heard diffusely. 22:05 Neuro: Orientation: is normal, Motor: is normal, moves all fours. Vital Signs: 21:48 BP 154 / 95; Pulse 84; Resp 25 S; Temp 98.5(O); Pulse Ox 100% on R/A; Weight 77.11 kg cc3 (R); Height 5 ft. 11 in. (180.34 cm) (R); 22:45 BP 159 / 86; Pulse 76; Resp 28 S; Pulse Ox 100% on Nebulizer Mask; cc3 23:30 BP 167 / 91; Pulse 108; Resp 25 S; Pulse Ox 96% on R/A; cc3 06/21 00:15 BP 160 / 98; Pulse 108; Resp 30 S; Pulse Ox 97% on 2 lpm NC; cc3 01:05 BP 163 / 93; Pulse 102; Resp 32 S; Pulse Ox 90% on R/A; cc3 01:45 BP 149 / 97; Pulse 103; Resp 26 S; Pulse Ox 93% on R/A; cc3 02:00 BP 138 / 84; Pulse 101; Resp 27 S; Pulse Ox 92% on R/A; cc3 03:30 BP 144 / 91; Pulse 97; Resp 25 S; Pulse Ox 93% on R/A; cc3 05:30 BP 164 / 89; Pulse 93; Resp 26 S; Pulse Ox 96% on R/A; cc3 06:13 BP 145 / 74; Pulse 95; Resp 26 S; Pulse Ox 92% on R/A; cc3 06/20 21:48 Body Mass Index 23.71 (77.11 kg, 180.34 cm) cc3 06/20 22:45 ongoing neb treatment cc3 MDM: 21:53 Patient medically screened. pm1 06/21 00:48 Data reviewed: vital signs. pm1 01:05 Physician consultation: Whit Fuentes MD was contacted at 01:05, regarding consult, pm1 patient's condition, Knows the patient well. Patient is noncompliant with his medications. Give the patient Lasix in the ER and if his shortness of breath improves he may go home. If no improvement he can be admitted to the hospital. His troponin is around his baseline and I do not suspect this is ACS. 01:57 Medication response: Lasix effective in improving patient's symptoms with increased pm1 urine output. Breath sounds clear and equal bilaterally. Patient's shortness of breath resolved and patient is no sleeping in bed comfortably. Will discharge patient home. 01:58 Counseling: I had a detailed discussion with the patient and/or guardian regarding: the pm1 historical points, exam findings, and any diagnostic results supporting the discharge/admit diagnosis, lab results, radiology results, the need for outpatient follow up, to return to the emergency department if symptoms worsen or persist or if there are any questions or concerns that arise at home. 06/20 21:57 Order name: Basic Metabolic Panel; Complete Time: 23:25 pm1 06/20 21:57 Order name: CBC with Diff; Complete Time: 23:58 pm1 06/20 21:57 Order name: LFT's; Complete Time: 23:25 pm1 06/20 21:57 Order name: Magnesium; Complete Time: 23:25 pm1 06/20 21:57 Order name: PT-INR; Complete Time: 22:54 pm1 06/20 21:57 Order name: Troponin (emerg Dept Use Only); Complete Time: 23:25 pm1 06/20 21:57 Order name: XRAY Chest (1 view) pm1 06/20 21:57 Order name: EKG; Complete Time: 21:58 pm1 06/20 21:57 Order name: Cardiac monitoring; Complete Time: 22:06 pm1 06/20 23:38 Order name: Urine Dipstick--Ancillary (enter results); Complete Time: 23:58 mw2 06/20 23:42 Order name: CBC Smear Scan; Complete Time: 23:58 EDMS 06/20 21:57 Order name: EKG - Nurse/Tech; Complete Time: 22:06 pm1 06/20 21:57 Order name: IV Saline Lock; Complete Time: 22:38 pm1 06/20 21:57 Order name: Labs collected and sent; Complete Time: 22:38 pm1 06/20 21:57 Order name: O2 Per Protocol; Complete Time: 22:06 pm1 06/20 21:57 Order name: O2 Sat Monitoring; Complete Time: 22:06 pm1 Administered Medications: 06/20 22:10 Drug: Albuterol - atroVENT (3:1) (2.5 mg - 0.5 mg) 3 ml Route: Nebulizer; cc3 23:04 Follow up: Response: No adverse reaction; Marked relief of symptoms cc3 22:25 Drug: Lasix 40 mg Route: IVP; Site: right antecubital; cc3 23:04 Follow up: Response: No adverse reaction cc3 22:30 Drug: SOLU-Medrol 125 mg Route: IVP; Site: right antecubital; cc3 23:04 Follow up: Response: No adverse reaction; Marked relief of symptoms cc3 Disposition: 06/21/18 02:03 Discharged to Home. Impression: Unspecified combined systolic (congestive) and diastolic (congestive) heart failure. - Condition is Stable. - Discharge Instructions: Heart Failure. - Prescriptions for Lasix 40 mg Oral Tablet - take 1 tablet by ORAL route once daily for 30 days; 30 tablet. - Medication Reconciliation Form, Thank You Letter, Antibiotic Education, Prescription Opioid Use form. - Follow up: Emergency Department; When: As needed; Reason: Worsening of condition. Follow up: Private Physician; When: 2 - 3 days; Reason: Recheck today's complaints, Continuance of care, Re-evaluation by your physician. - Problem is new. - Symptoms have improved. Addendum: 06/23/2018 01:28 Co-signature as Attending Physician, Mike Yoo MD. g s Signatures: Dispatcher [employer] EDMS Venancio Mccabe, FLEECE TIER FLEECE TIER em Rj Arnold, SALES REPRESENTATIVE FACILITY SERVICES SALES REPRESENTATIVE FACILITY SERVICES pm1 Mike Yoo MD MD gs Cordel, Charlene cc3 Corrections: (The following items were deleted from the chart) 06/21 07:40 02:03 06/21/2018 02:03 Discharged to Home. Impression: Unspecified combined systolic em (congestive) and diastolic (congestive) heart failure. Condition is Stable. Forms are Medication Reconciliation Form, Thank You Letter, Antibiotic Education, Prescription Opioid Use. Follow up: Emergency Department; When: As needed; Reason: Worsening of condition. Follow up: Private Physician; When: 2 - 3 days; Reason: Recheck today's complaints, Continuance of care, Re-evaluation by your physician. Problem is new. Symptoms have improved. pm1
[2018-06-21 07:46] VITALS: TEMP 98.5
[2018-06-21 07:56] VITALS: BP 145/74; O2SAT 92
--- NOTE | 2018-06-21 09:30 | RAD REPORT ---
EXAM DESCRIPTION: Neo Single View06/20/2018 10:31 pm CLINICAL HISTORY: Shortness of breath COMPARISON: New FINDINGS: [id number] bilateral pulmonary opacities. Heart is moderately have partially IMPRESSION: [id number] bilateral pulmonary opacities probably represent pulmonary edema
--- NOTE | 2018-06-22 07:49 | EKG ---
Test Date: 2018-06-20 Test Time: 21:58:49 Muffler Hand: MARY MEASUREMENT RESULTS: Intervals: Rate: 101 FL: 142 QRSD: 112 QT: 384 QTc: 497 Preemption: P: 68 FL: 142 QRS: 62 T: 48 INTERPRETIVE STATEMENTS: Sinus tachycardia with occasional premature ventricular complexes Minimal voltage criteria for LVH, may be normal variant Borderline ECG Compared to ECG 06/10/2018 20:41:48 Ventricular premature complex(es) now present Sinus rhythm no longer present Atrial premature complex(es) no longer present Prolonged QT interval no longer present Electronically Signed On 06-22-18 07:48:06 CDT by Jitendra Willams
== END 2018-06-21 07:40 | disposition home or self-care (01) ==
LOC: ER 21:45
DX: I11.0 Hypertensive heart disease with heart failure (principal); I50.40 Unspecified combined systolic (congestive) and diastolic (congestive) heart failure; I48.91 Unspecified atrial fibrillation; C61 Malignant neoplasm of prostate; J44.9 Chronic obstructive pulmonary disease, unspecified; F17.290 Nicotine dependence, other tobacco product, uncomplicated
CPT/HCPCS: 93005; 85025; 80048; 36415; 83735; 85610; 80076; 81003; 84484; 71045; 94640; 96375; 96374; 99285; J1940; J2930

== ENCOUNTER 2018-06-22 15:29 | Inpatient (IN) | payer OTHER ==
--- OUTSIDE RECORDS SUMMARY | 2018-06-22 15:33 | XMS REPORT ---
:1950 [facility] [address] [place] [address] Care Team Providers Name Role Phone Unavailable [...]
--- NOTE | 2018-06-22 16:17 | RAD REPORT ---
EXAM DESCRIPTION: RAD - Chest Single View - 06/22/2018 4:06 pm CLINICAL HISTORY: SOB Chest pain. COMPARISON: Chest Single View dated 06/20/2018; Chest Single View dated 06/10/2018; Chest Pa And Lat ( 2 Views) dated 06/08/2018; Chest Single View dated 06/07/2018 FINDINGS: Portable technique limits examination quality. Mild pulmonary edema is noted. The heart is moderately enlarged in size. Multiple healed left posteri or rib fractures.
[2018-06-22 16:31] LABS: Absolute Lymphocytes (CBC) 2.5 K/uL (0.7-4.9); Absolute Monocytes 1.4 K/uL (0.1-1.3); Basophils % 0.6 % (0-1.3); Eosinophils % 0.3 % (0-4.4); Hematocrit 32.7 % (39.6-49.0); Lymphocytes % 22.5 % (15.3-44.8); MPV 9.2 fL (7.6-11.3); Monocytes % 13.1 % (3.3-12.3); RBC Red Blood Cell Count 5.49 M/uL (4.33-5.43)
[2018-06-22 16:37] LABS: Protime INR 1.41
[2018-06-22] MEDS ORDERED: NITROGLYCERIN 0.4 MG/TAB SL ONE (16:50)
[2018-06-22] MEDS ORDERED: ASPIRIN 81 MG CHEWABLE TABLET ONE (16:50)
[2018-06-22 16:52] LABS: Albumin 3.4 g/dL (3.4-5.0); Bilirubin Direct 0.2 mg/dL (0-0.2); Bilirubin Total 0.8 mg/dL (0.2-1.0); Magnesium 2.1 mg/dL (1.8-2.4); Potassium 3.7 mmol/L (3.5-5.1); Protein, Total 6.4 g/dL (6.4-8.2); Troponin (Emerg Dept Use Only) 0.11 ng/mL (0.0-0.045)
[2018-06-22] MEDS ORDERED: METOPROLOL TAR 25 MG TAB ONE (16:55)
[2018-06-22] MEDS ORDERED: AZITHROMYCIN IV 500 MG in NA CHLORIDE 0.9% 250 ML IVPB ONE (17:00)
[2018-06-22] MEDS ORDERED: CEFTRIAXONE/SWI 2gm 2 GM/20 ML SYR IVP ONE (17:00)
[2018-06-22 17:17] LABS: Platelet Estimate ADEQ; Urine White Blood Cell Casts OK
[2018-06-22 17:18] LABS: Anisocytosis 3+; Blood Morphology Comment NOTED (NOT SEEN); Macrocytosis 1+; Ovalocytes 1+; Stomatocytes 1+
--- NOTE | 2018-06-22 17:57 | ER ---
Nurse's Notes [facility] Name: Mark Terrell Age: 67 yrs Sex: Male : 1950 Arrival Date: 06/22/2018 Time: 15:27 Bed 5 Private MD: Diagnosis: Acute dyspnea;Acute CHF exacerbation;Acute NSTEMI Presentation: 06/22 15:28 Presenting complaint: EMS states: pt is homeless, been living [place], called EMS hj for difficulty breathing, on scene, O2 sat 94% RA; A/A breathing tx x 1 given, O2 sat up to 100%; A\T\O x 4; BP- 159/100;. Transition of care: patient was not received from another setting of care. Onset of symptoms was June 22, 2018. Risk Assessment: Do you want to hurt yourself or someone else? Patient reports no desire to harm self or others. Initial Sepsis Screen: Does the patient meet any 2 criteria? No. Patient's initial sepsis screen is negative. Does the patient have a suspected source of infection? No. Patient's initial sepsis screen is negative. Care prior to arrival: None. 15:28 Method Of Arrival: EMS: [facility] 15:28 Acuity: ARIEL 3 hj Triage Assessment: 15:33 General: Appears in no apparent distress. uncomfortable, unkempt, malnourished, hj Behavior is calm, cooperative, appropriate for age. Respiratory: Reports shortness of breath labored breathing Onset: The symptoms/episode began/occurred the patient has mild shortness of breath. Historical: - Allergies: 15:31 Benadryl; hj - PMHx: 15:31 Aneurysm; BRAIN; Atrial Fib; Cancer; PROSTATE; CHF; COPD; Hypertension; Prostate Cancer;hj - PSHx: 15:31 aneurysm clip; prostate surgery; hj - Immunization history:: Adult Immunizations unknown. - Social history:: Smoking status: Patient uses tobacco products, Patient uses alcohol. - Ebola Screening: : Patient negative for fever greater than or equal to 101.5 degrees Fahrenheit, and additional compatible Ebola Virus Disease symptoms Patient denies exposure to infectious person Patient denies travel to an Ebola-affected area in the 21 days before illness onset. - Family history:: not pertinent. - Hospitalizations: : No recent hospitalization is reported. Screenin:32 Abuse screen: Denies threats or abuse. Denies injuries from another. Nutritional hj screening: No deficits noted. Tuberculosis screening: No symptoms or risk factors identified. Fall Risk None identified. Assessment: 15:32 Pain: Denies pain. Cardiovascular: Rhythm is. Respiratory: Airway is patent Respiratory hj effort is even, unlabored, 15:32 General: Appears in no apparent distress. uncomfortable, Behavior is calm, cooperative, hj appropriate for age. Neuro: Level of Consciousness is awake, alert, obeys commands, Oriented to person, place, time, situation, Appropriate for age. GI: No signs and/or symptoms were reported involving the gastrointestinal system. : No signs and/or symptoms were reported regarding the genitourinary system. EENT: No signs and/or symptoms were reported regarding the EENT system. Derm: No signs and/or symptoms reported regarding the dermatologic system. Musculoskeletal: No signs and/or symptoms reported regarding the musculoskeletal system. 16:32 Reassessment: provided with sandwhich and drinks; awaiting results and POC;. hj 17:11 Reassessment: Patient appears in no apparent distress at this time. Patient and/or iw family updated on plan of care and expected duration. Pain level reassessed. Patient is alert, oriented x 3, equal unlabored respirations, skin warm/dry/pink. 18:00 Reassessment: ADMIT MD AT B/S. ADMIT IN PROCESS. bp Vital Signs: 15:32 BP 165 / 69; Pulse 109; Resp 18; Temp 97.8(TE); Pulse Ox 95% on R/A; Weight 70.31 kg; hj Height 5 ft. 11 in. (180.34 cm); 16:29 BP 162 / 88; Pulse 115; Resp 18; Temp 98.6(O); Pulse Ox 100% on 2 lpm NC; hj 17:22 BP 164 / 92; Pulse 94; Resp 20 S; Pulse Ox 98% on 2 lpm NC; iw 18:15 BP 109 / 88; Pulse 80; Resp 14; Pulse Ox 99% ; bp 19:14 BP 118 / 77; Pulse 80; Resp 18; Pulse Ox 98% on R/A; tl2 15:32 Body Mass Index 21.62 (70.31 kg, 180.34 cm) ED Course: 15:27 Patient arrived in ED. hj 15:30 Triage completed. hj 15:33 Arm band placed on right wrist. hj 15:34 Satnam Shaw, RN is Primary Nurse. hj 15:34 Patient has correct armband on for positive identification. Placed in gown. Bed in low hj position. Call light in reach. Side rails up X 1. 15:46 Jaylan Browne MD is Attending Physician. wa 15:50 EKG done, by nursing techn. reviewed by Jaylan Browne MD. 3 16:00 Initial lab(s) drawn, by wa, sent to lab. Inserted saline lock: 20 gauge in right hj antecubital area, using aseptic technique. Blood collected. 16:07 XRAY CXR (1 view) In Process Unspecified. EDMS 17:55 Bibi De León MD is Hospitalizing Provider. wa 18:15 Inserted saline lock: 18 gauge in right forearm, using aseptic technique. IV bp discontinued, intact, bleeding controlled, No redness/swelling at site. Administered Medications: 16:36 Drug: Nitroglycerin 0.4 mg Route: Sublingual; hj 16:40 Follow up: Response: No adverse reaction hj 16:36 Drug: Aspirin Chewable Tablet 324 mg Route: PO; hj 16:41 Follow up: Response: No adverse reaction hj 16:38 Drug: Metoprolol 25 mg Route: PO; hj 16:44 Follow up: Response: No adverse reaction hj 17:00 Drug: Rocephin - (cefTRIAXone) 2 grams {Note: given as push, per protocol .} Route: iw IVPB; Infused Over: 3 mins; Site: right antecubital; 17:30 Follow up: IV Status: Completed infusion; IV Intake: 20ml bp 17:10 Drug: Zithromax 500 mg Route: IVPB; Infused Over: 1 hrs; Site: right antecubital; iw 18:05 Drug: Lovenox 40 mg Route: Sub-Q; Site: left lower abdomen; bp 18:21 Follow up: Response: No adverse reaction bp Intake: 17:30 IV: 20ml; Total: 20ml. bp Outcome: 17:57 Decision to Hospitalize by Provider. wa 20:46 Patient left the ED. ea Signatures: Dispatcher [employer] EDNH Sara Enrique RN RN Satnam Shaw RN RN Nelia May RN RN checo2 Ana Camacho RN RN ea Jaylan Browne MD MD wa Peltier, Brian, RN RN bp Sharri Luna 3 Corrections: (The following items were deleted from the chart) 16:31 15:32 BP 165 / 69; Pulse 54bpm; Resp 18bpm; Pulse Ox 95% RA; Temp 97.8F Temporal; 70.31 hj kg; Height 5 ft. 11 in.; BMI: 21.6; hj 16:31 16:29 BP 162 / 88; Pulse 115bpm; Resp 18bpm; Pulse Ox 100% 2 lpm Nasal Cannula; hj hj
--- NOTE | 2018-06-22 17:57 | EDPHYS ---
Physician Documentation [facility] Name: Mark Terrell Age: 67 yrs Sex: Male : 1950 Arrival Date: 06/22/2018 Time: 15:27 Bed 5 Private MD: ED Physician Jaylan Browne HPI: 06/22 16:39 This 67 yrs old Male presents to ER via EMS with complaints of Breathing wa Difficulty. 16:39 The patient has shortness of breath at rest. Onset: The symptoms/episode began/occurred wa yesterday. Duration: The symptoms are continuous, and are steadily getting worse. The patient's shortness of breath is aggravated by nothing, is alleviated by nothing. Associated signs and symptoms: Pertinent positives: productive cough, Pertinent negatives: chest pain, fever, hemoptysis, vomiting. Severity of symptoms: At their worst the symptoms were moderate in the emergency department the symptoms are unchanged. The patient has experienced similar episodes in the past, multiple times. The patient has not recently seen a physician. pt states he's homeless and has been living in the [facility]. Historical: - Allergies: 15:31 Benadryl; hj - PMHx: 15:31 Aneurysm; BRAIN; Atrial Fib; Cancer; PROSTATE; CHF; COPD; Hypertension; Prostate Cancer;hj - PSHx: 15:31 aneurysm clip; prostate surgery; hj - Immunization history:: Adult Immunizations unknown. - Social history:: Smoking status: Patient uses tobacco products, Patient uses alcohol. - Ebola Screening: : Patient negative for fever greater than or equal to 101.5 degrees Fahrenheit, and additional compatible Ebola Virus Disease symptoms Patient denies exposure to infectious person Patient denies travel to an Ebola-affected area in the 21 days before illness onset. - Family history:: not pertinent. - Hospitalizations: : No recent hospitalization is reported. ROS: 16:41 Constitutional: Negative for fever, chills, and weight loss, Eyes: Negative for injury, wa pain, redness, and discharge, ENT: Negative for injury, pain, and discharge, Neck: Negative for injury, pain, and swelling, Abdomen/GI: Negative for abdominal pain, nausea, vomiting, diarrhea, and constipation, Back: Negative for injury and pain, : Negative for injury, bleeding, discharge, and swelling, MS/Extremity: Negative for injury and deformity, Skin: Negative for injury, rash, and discoloration, Neuro: Negative for headache, weakness, numbness, tingling, and seizure, Psych: Negative for depression, anxiety, suicide ideation, homicidal ideation, and hallucinations. 16:41 Cardiovascular: Negative for chest pain, edema, orthopnea, palpitations, paroxysmal nocturnal dyspnea. 16:41 Respiratory: Positive for cough, shortness of breath, at rest. Negative for hemoptysis, orthopnea, pleurisy. 16:41 All other systems are negative. Exam: 16:41 Constitutional: This is a well developed, well nourished patient who is awake, alert, wa and in no acute distress. Head/Face: Normocephalic, atraumatic. Eyes: Pupils equal round and reactive to light, extra-ocular motions intact. Lids and lashes normal. Conjunctiva and sclera are non-icteric and not injected. Cornea within normal limits. Periorbital areas with no swelling, redness, or edema. ENT: Nares patent. No nasal discharge, no septal abnormalities noted. Tympanic membranes are normal and external auditory canals are clear. Oropharynx with no redness, swelling, or masses, exudates, or evidence of obstruction, uvula midline. Mucous membranes moist. Neck: Trachea midline, no thyromegaly or masses palpated, and no cervical lymphadenopathy. Supple, full range of motion without nuchal rigidity, or vertebral point tenderness. No Meningismus. Chest/axilla: Normal chest wall appearance and motion. Nontender with no deformity. No lesions are appreciated. Abdomen/GI: Soft, non-tender, with normal bowel sounds. No distension or tympany. No guarding or rebound. No evidence of tenderness throughout. Back: No spinal tenderness. No costovertebral tenderness. Full range of motion. Skin: Warm, dry with normal turgor. Normal color with no rashes, no lesions, and no evidence of cellulitis. MS/ Extremity: Pulses equal, no cyanosis. Neurovascular intact. Full, normal range of motion. Neuro: Awake and alert, GCS 15, oriented to person, place, time, and situation. Cranial nerves II-XII grossly intact. Motor strength 5/5 in all extremities. Sensory grossly intact. Cerebellar exam normal. Normal gait. Psych: Awake, alert, with orientation to person, place and time. Behavior, mood, and affect are within normal limits. 16:41 Cardiovascular: Rate: tachycardic, Rhythm: regular, Pulses: no pulse deficits are appreciated, Heart sounds: normal, Edema: is not appreciated, JVD: is not appreciated. 16:41 Respiratory: the patient does not display signs of respiratory distress, Respirations: normal, Breath sounds: coarse bilaterally, Respiratory rate: nl Vital Signs: 15:32 BP 165 / 69; Pulse 109; Resp 18; Temp 97.8(TE); Pulse Ox 95% on R/A; Weight 70.31 kg; hj Height 5 ft. 11 in. (180.34 cm); 16:29 BP 162 / 88; Pulse 115; Resp 18; Temp 98.6(O); Pulse Ox 100% on 2 lpm NC; hj 17:22 BP 164 / 92; Pulse 94; Resp 20 S; Pulse Ox 98% on 2 lpm NC; iw 18:15 BP 109 / 88; Pulse 80; Resp 14; Pulse Ox 99% ; bp 19:14 BP 118 / 77; Pulse 80; Resp 18; Pulse Ox 98% on R/A; tl2 15:32 Body Mass Index 21.62 (70.31 kg, 180.34 cm) hj MDM: 15:46 Patient medically screened. ms 16:42 Differential diagnosis: Bronchitis CHF exacerbation, Chronic Obstructive Pulmonary wa Disease Myocardial Infarction pneumonia, pulmonary edema, Pulmonary Embolism reactive airway disease, Unstable Angina. Data reviewed: vital signs, nurses notes. 17:50 Test interpretation: by ED physician or midlevel provider: EKG: interp by ut: HR 105. wa sinu stach. multiple PVC's. note LVH. diffuse ST-T changes, non-specific. CXR: pulm edema. labs noted for elevated BUN/Cr with GFR of 47. elevated wbc 10.9. noted anemia 9.7/32[place] [address]. elevated troponin-I 0.11. . Physician consultation: Bibi De León MD. ED course: received ASA, metoprolol, nitro. will give a dose fo lovenox. . 06/22 15:47 Order name: BMP; Complete Time: 17:45 ms 06/22 15:47 Order name: CBC with Diff; Complete Time: 17:45 06/22 15:47 Order name: CPK; Complete Time: 17:46 06/22 15:47 Order name: Hepatic Function; Complete Time: 17:46 ms 06/22 15:47 Order name: Magnesium; Complete Time: 17:46 06/22 15:47 Order name: NT PRO-BNP; Complete Time: 17:46 06/22 15:47 Order name: XRAY CXR (1 view); Complete Time: 16:35 ms 06/22 15:47 Order name: PT-INR; Complete Time: 17:46 06/22 15:47 Order name: Ptt, Activated; Complete Time: 17:46 ms 06/22 15:47 Order name: Troponin (emerg Dept Use Only); Complete Time: 17:46 ms 06/22 16:36 Order name: CBC Smear Scan; Complete Time: 17:45 EDCO 06/22 15:47 Order name: EKG; Complete Time: 15:48 06/22 15:47 Order name: Cardiac monitoring; Complete Time: 15:49 ms 06/22 15:47 Order name: EKG - Nurse/Tech; Complete Time: 16:31 06/22 15:47 Order name: IV Saline Lock; Complete Time: 16:31 ms 06/22 15:47 Order name: Labs collected and sent; Complete Time: 16:31 06/22 15:47 Order name: O2 Per Protocol; Complete Time: 15:50 06/22 15:47 Order name: O2 Sat Monitoring; Complete Time: 15:50 ms Administered Medications: 16:36 Drug: Nitroglycerin 0.4 mg Route: Sublingual; hj 16:40 Follow up: Response: No adverse reaction hj 16:36 Drug: Aspirin Chewable Tablet 324 mg Route: PO; hj 16:41 Follow up: Response: No adverse reaction hj 16:38 Drug: Metoprolol 25 mg Route: PO; hj 16:44 Follow up: Response: No adverse reaction hj 17:00 Drug: Rocephin - (cefTRIAXone) 2 grams {Note: given as push, per protocol .} Route: iw IVPB; Infused Over: 3 mins; Site: right antecubital; 17:30 Follow up: IV Status: Completed infusion; IV Intake: 20ml bp 17:10 Drug: Zithromax 500 mg Route: IVPB; Infused Over: 1 hrs; Site: right antecubital; iw 18:05 Drug: Lovenox 40 mg Route: Sub-Q; Site: left lower abdomen; bp 18:21 Follow up: Response: No adverse reaction bp Disposition: 17:55 Critical Care:. wa Disposition: 06/22/18 17:57 Hospitalization ordered by Bibi De León for Observation. Preliminary diagnosis are Acute dyspnea, Acute CHF exacerbation, Acute NSTEMI. - Bed requested for Telemetry/MedSurg (observation). - Status is Observation. ea - Condition is Stable. - Problem is an acute exacerbation. - Symptoms have improved. UTI on Admission? No Critical care time excluding procedures: 17:55 Critical care time: Bedside Care: 15 minutes, Consultation: 5 minutes, Family wa Intervention: 10 minutes. Total time: 30 minutes Signatures: Dispatcher [employer] EDMS Lila Becker Irene, RN Satnam Houser RN Iveth Toribio RN RN df Antunez, Elena, RN RN ea Appiah, William, MD MD wa Peltier, Brian RN RN bp Corrections: (The following items were deleted from the chart) 18:30 17:57 Hospitalization Ordered by Bibi De León MD for Observation. Preliminary diagnosis bd is Acute dyspnea; Acute CHF exacerbation; Acute NSTEMI. Bed requested for Telemetry/MedSurg (observation). Status is Observation. Condition is Stable. Problem is an acute exacerbation. Symptoms have improved. UTI on Admission? No. wa 18:31 18:30 06/22/2018 17:57 Hospitalization Ordered by Bibi De León MD for Observation. df Preliminary diagnosis is Acute dyspnea; Acute CHF exacerbation; Acute NSTEMI. Bed requested for Telemetry/MedSurg (observation). Status is Observation. Condition is Stable. Problem is an acute exacerbation. Symptoms have improved. UTI on Admission? No. bd 20:46 18:31 06/22/2018 17:57 Hospitalization Ordered by Bibi De León MD for Observation. ea Preliminary diagnosis is Acute dyspnea; Acute CHF exacerbation; Acute NSTEMI. Bed requested for Telemetry/MedSurg (observation). Status is Observation. Condition is Stable. Problem is an acute exacerbation. Symptoms have improved. UTI on Admission? No. df
[2018-06-22] MEDS ORDERED: ENOXAPARIN 40 MG/0.4 ML SQ ONE (18:27)
[2018-06-22] MEDS ORDERED: ONDANSETRON 4 MG/2 ML VIAL IV PRN (20:15)
[2018-06-22] MEDS: ENOXAPARIN 40 MG/0.4 ML SQ SCH (21:23)
[2018-06-22] MEDS: METOPROLOL TAR 50 MG TAB PO SCH (21:23)
[2018-06-22] MEDS: ALBUTEROL 2.5 MG/3 ML NEB SOL NEB PRN (22:10)
[2018-06-23] MEDS: ACETAMINOPHEN 500 MG TAB PO PRN ×4 (03:36→21:29)
[2018-06-23] MEDS: ALBUTEROL 2.5 MG/3 ML NEB SOL NEB PRN (04:45)
--- NOTE | 2018-06-23 05:16 | HP ---
Date of Admission: 06/22/2018 Primary Care Physician: None. Chief Complaint: Shortness of breath. Code Status: Full. History Of Present Illness: The patient is a 67-year-old male with past medical history of congestiv e heart failure, hypertension, history of prostate cancer, history of brain aneurysm requiring surger y, COPD, nicotine dependence, who is homeless, who has had multiple admissions for similar episodes o f shortness of breath, most recently on 06/11/2018. The patient states that he is having some shortn ess of breath. Denies any chest pain. No cough, fever, chills. The patient actually states that he has been taking his medications. His symptoms are constant, moderate, and progressively worsening. His workup revealed elevated BNP of 10,000, he had a troponin bump of 0.11. Creatinine was elevated above baseline at 1.5. His chest x-ray showed mild pulmonary edema. The patient was treated in the ER, and referred for admission. Past Medical History: Congestive heart failure, hypertension, history of prostate cancer, history of brain aneurysm requiring surgery, COPD, coronary artery disease status post stents to the LAD and RC A x3, February 2016, anemia of chronic disease, GERD, hyperlipidemia. Past Surgical History: Cardiac stents, surgery for brain aneurysm, toe surgery, right great toe duri ng childhood, prostate surgery. Allergies: POISON ROCAEL AND DIPHENHYDRAMINE. Medications: As per medication reconciliation list. Social History: The patient is homeless, single, no children. 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 Smokes cigarettes daily. No illicit drug use or alcohol use. Family History: Father had brain cancer. Mother had pancreatic cancer and brother had lung cancer. Review of Systems: An 11-point system reviewed, negative except as per HPI. Physical Examination: Vital Signs: Blood pressure 165/69, pulse 109, respirations 18, temperature 97.8, O2 95% on room air . General: Awake, alert, oriented x3. Elderly male, appears older than stated age. Disheveled, some m ild distress. HEENT: Normocephalic, atraumatic. PERRLA. EOMI. Moist mucous membranes. Oropharynx is clear. Co njunctivae anicteric. Neck: Supple. Trachea midline. CV: S1 and S2. Regular rate and rhythm. Peripheral pulses present Respiratory: Diminished breath sounds. Crackles present. No wheezing or stridor. No use of accessory muscles. Gastrointestinal: Abdomen is soft, nontender, nondistended. Positive bowel sounds. No guarding or rigidity. Extremities: No clubbing or cyanosis. Trace pedal edema. No calf tenderness. Neuro: Cranial nerves 2 through 12 intact grossly. No focal neurological deficit. Speech is normal . Laboratory Data: Sodium 142, potassium 3.7 chloride 104, CO2 of 28, BUN 24, creatinine 1.5, glucose 103, calcium 8.8, magnesium 2.1. Troponin 0.11. BNP is 10,121. WBC 10.9, H and H 9.7, 32.7, platele ts 227. INR 1.41. Chest x-ray, personally reviewed, shows mild pulmonary edema. Heart moderately enlarged. Multiple h ealed left posterior rib fractures. Assessment And Plan: A 67-year-old male with: 1.Acute dyspnea secondary to acute on chronic congestive heart failure. 2.Acute on chronic congestive heart failure, systolic EF is 40%. We will continue on congestive hea rt failure guidelines. 3.Elevated troponin level, likely due to acute congestive heart failure. Denies any chest pain. We will continue to monitor. 4.Chronic obstructive pulmonary disease, chronic bronchitis. We will continue albuterol p.r.n. 5.Coronary artery disease. [place] artery and [place] heart without angina, status post stent. 6.History of brain aneurysm, status post clipping. 7.Gastroesophageal reflux disease without esophagitis. 8.History of prostate cancer. 9.Deep venous thrombosis prophylaxis with Lovenox. Plan: 1.Admit the patient to Med/Surg, place as observation. 2.We will continue diuretics. 3.Strict monitoring of I's and O's, daily weights. 4.The patient needs long-term assistance due to his homelessness. We will consult social work for a ssistance. /MARY ANN Voice ID: [id number]
[2018-06-23 06:35] LABS: RBC Red Blood Cell Count 5.53 M/uL (4.33-5.43)
[2018-06-23 06:36] LABS: Absolute Lymphocytes (CBC) 2.8 K/uL (0.7-4.9); Absolute Monocytes 1.6 K/uL (0.1-1.3); Absolute Neutrophil 8.5 K/uL (1.8-8.0); Basophils % 0.9 % (0-1.3); Eosinophils % 0.1 % (0-4.4); Lymphocytes % 21.4 % (15.3-44.8); MPV 9.2 fL (7.6-11.3); Monocytes % 12.3 % (3.3-12.3)
[2018-06-23 06:45] LABS: Albumin 3.4 g/dL (3.4-5.0); Bilirubin Total 0.7 mg/dL (0.2-1.0); Potassium 3.6 mmol/L (3.5-5.1); Protein, Total 6.4 g/dL (6.4-8.2)
[2018-06-23] MEDS: ASPIRIN EC 81 MG TAB PO SCH (08:05)
[2018-06-23] MEDS: FUROSEMIDE 40 MG/4 ML VIAL IV SCH ×2 (08:05→15:59)
[2018-06-23] MEDS: ENOXAPARIN 40 MG/0.4 ML SQ SCH (08:05)
[2018-06-23] MEDS: LISINOPRIL 10 MG TAB PO SCH (08:06)
[2018-06-23] MEDS: METOPROLOL TAR 50 MG TAB PO SCH ×2 (08:07→21:29)
[2018-06-23] MEDS: DULERA 200/5 (MOMETASONE/FORMOTEROL) INHALER IH SCH ×2 (09:00→21:27)
--- NOTE | 2018-06-23 11:51 | P.PN ---
Subjective Date of Service: 06/23/18 Chief Complaint: Shortness of breath Subjective: Improving Patient seen and examined at bedside. No family at bedside. Chart reviewed and case discussed with nursing staff. Reports improvement, though still seems to have increased work of breathing. No acute events noted overnight Denies any other complaints or concerns this morning. Review of Systems 10-point ROS is otherwise unremarkable Physical Examination - Vital Signs Temperature: 100 F Blood Pressure: 146/102 Pulse: 88 Respirations: 18 Pulse Ox (%): 97 - Physical Exam General: Alert, Oriented x3, Cooperative, Mild distress (Respiratory) HEENT: Atraumatic, PERRLA, EOMI Neck: Supple, JVD not distended Respiratory: Expiratory wheezes (Generalized), Inspiratory wheezes Cardiovascular: Regular rate/rhythm, Normal S1 S2 Gastrointestinal: Normal bowel sounds, No tenderness Musculoskeletal: No tenderness Integumentary: No rashes Neurological: Normal speech, Normal tone, Normal affect Lymphatics: No axilla or inguinal lymphadenopathy - Studies Laboratory Data (last 24 hrs) 06/22/18 16:00: PT 16.4 H, INR 1.41, APTT 25.2 06/22/18 16:00: WBC 10.9 D, Hgb 9.7 L, Hct 32.7 L, Plt Count 227 06/22/18 16:00: Sodium 142, Potassium 3.7, BUN 24 H, Creatinine 1.50 H, Glucose 103, Magnesium 2.1, Total Bilirubin 0.8, AST 27, ALT 23, Alkaline Phosphatase 73 Assessment And Plan - Current Problems (Diagnosis) (1) Acute dyspnea Onset Date: 11/15/16 Current Visit: No Status: Acute (2) Acute on chronic systolic (congestive) heart failure Onset Date: 09/01/17 Current Visit: No Status: Acute (3) COPD exacerbation Onset Date: 12/19/15 Current Visit: No Status: Acute (4) Elevated troponin Onset Date: 03/31/17 Current Visit: No Status: Acute (5) Hyperlipidemia Onset Date: 07/19/16 Current Visit: No Status: Chronic Qualifiers: (6) Hypertension Onset Date: 02/05/16 Current Visit: No Status: Chronic Qualifiers: (7) Nicotine dependence Onset Date: 04/03/17 Current Visit: No Status: Chronic Qualifiers: (8) Noncompliance Onset Date: 03/18/16 Current Visit: No Status: Chronic (9) Type 2 diabetes mellitus Onset Date: 12/10/16 Current Visit: No Status: Chronic Qualifiers: (10) History of prostate cancer Current Visit: No Status: Chronic - Plan Continue aggressive IV diuresis. Strict monitoring of input and output, daily weights. Continue heart healthy diet with fluid restriction Patient does need long-term assistance due to his homelessness. Patient refuses to limited assisted. States that he prefers to be homeless as he does not like to be around people. He continues to not pickle sorter his medications due to financial restraints. Social work was consulted, on board. Continue monitoring and supportive care with oxygen as needed. Disposition: Possible discharge home in the next 24-48 hr.
[2018-06-23] MEDS ORDERED: ALBUTEROL 2.5 MG/3 ML NEB SOL NEB PRN (17:00)
[2018-06-24] MEDS: ACETAMINOPHEN 500 MG TAB PO PRN ×3 (07:39→20:49)
--- NOTE | 2018-06-24 08:03 | RAD REPORT ---
EXAM DESCRIPTION: Neo Single View06/24/2018 6:34 am CLINICAL HISTORY: sob COMPARISON: 06/20/2018 FINDINGS: Overall no significant change in mild to moderate bilateral pulmonary opacities. The heart remains enlarged IMPRESSION: No significant change in bilateral pulmonary opacities probably representing pulmonary edema
[2018-06-24] MEDS: METOPROLOL TAR 50 MG TAB PO SCH ×2 (08:32→20:48)
[2018-06-24] MEDS: DULERA 200/5 (MOMETASONE/FORMOTEROL) INHALER IH SCH ×2 (08:32→20:50)
[2018-06-24] MEDS: ASPIRIN EC 81 MG TAB PO SCH (08:33)
[2018-06-24] MEDS: LISINOPRIL 10 MG TAB PO SCH (08:34)
[2018-06-24] MEDS: ENOXAPARIN 40 MG/0.4 ML SQ SCH (08:34)
[2018-06-24] MEDS: FUROSEMIDE 40 MG/4 ML VIAL IV SCH ×2 (08:34→16:56)
[2018-06-24 10:25] LABS: Absolute Lymphocytes (CBC) 1.9 K/uL (0.7-4.9); Absolute Monocytes 1.3 K/uL (0.1-1.3); Absolute Neutrophil 8.3 K/uL (1.8-8.0); Basophils % 0.6 % (0-1.3); Eosinophils % 0.1 % (0-4.4); Hematocrit 33.8 % (39.6-49.0); Lymphocytes % 16.6 % (15.3-44.8); MPV 9.2 fL (7.6-11.3); Monocytes % 11.2 % (3.3-12.3)
[2018-06-24 10:57] LABS: Albumin 3.1 g/dL (3.4-5.0); Bilirubin Total 0.6 mg/dL (0.2-1.0); Potassium 4.1 mmol/L (3.5-5.1); Protein, Total 6.2 g/dL (6.4-8.2)
[2018-06-24] MEDS ORDERED: AZITHROMYCIN 250 MG TAB PO ONE (10:57)
--- NOTE | 2018-06-24 11:01 | P.PN ---
Subjective Date of Service: 06/24/18 Chief Complaint: Shortness of breath Patient seen and examined at bedside. No family at bedside. Chart reviewed and case discussed with nursing staff. Reports improvement, though still seems to have increased work of breathing. T-max of 103.4 at 8:00 a.m. this morning. Complaints of chills. Denies any chest pain, respiratory distress, abdominal pain, GI or complaints. Review of Systems 10-point ROS is otherwise unremarkable General: Fever, Chills Physical Examination - Vital Signs Temperature: 103.4 F Blood Pressure: 135/78 Pulse: 85 Respirations: 28 Pulse Ox (%): 92 - Physical Exam General: Alert, In no apparent distress, Oriented x3 HEENT: Atraumatic, PERRLA, EOMI Neck: Supple, JVD not distended Respiratory: Clear to auscultation bilaterally, Normal air movement Cardiovascular: Regular rate/rhythm, Normal S1 S2 Gastrointestinal: Normal bowel sounds, No tenderness Musculoskeletal: No tenderness Integumentary: No rashes Neurological: Normal speech, Normal tone, Normal affect Lymphatics: No axilla or inguinal lymphadenopathy Assessment And Plan - Current Problems (Diagnosis) (1) Acute dyspnea Onset Date: 11/15/16 Current Visit: No Status: Acute (2) Acute on chronic systolic (congestive) heart failure Onset Date: 09/01/17 Current Visit: No Status: Acute (3) COPD exacerbation Onset Date: 12/19/15 Current Visit: No Status: Acute (4) Elevated troponin Onset Date: 03/31/17 Current Visit: No Status: Acute (5) Hyperlipidemia Onset Date: 07/19/16 Current Visit: No Status: Chronic Qualifiers: (6) Hypertension Onset Date: 02/05/16 Current Visit: No Status: Chronic Qualifiers: (7) Nicotine dependence Onset Date: 04/03/17 Current Visit: No Status: Chronic Qualifiers: (8) Noncompliance Onset Date: 03/18/16 Current Visit: No Status: Chronic (9) Type 2 diabetes mellitus Onset Date: 12/10/16 Current Visit: No Status: Chronic Qualifiers: (10) History of prostate cancer Current Visit: No Status: Chronic - Plan Continue aggressive IV diuresis. Start oral azithromycin. 500 mg tablet x1, 250 mg daily x5 days afterwards. Strict monitoring of input and output, daily weights. Continue heart healthy diet with fluid restriction Patient does need long-term assistance due to his homelessness. Patient refuses to fpc. States that he prefers to be homeless as he does not like to be around people. He continues to not tack picker his medications due to financial restraints. Social work was consulted, on board. Continue monitoring and supportive care with oxygen as needed. Disposition: As patient was febrile overnight, will continue to monitor. Start antibiotics. Lactate, blood cultures, flu swab pending.
[2018-06-25 06:04] VITALS: BMI 22.6
[2018-06-25] MEDS: LISINOPRIL 10 MG TAB PO SCH (08:48)
[2018-06-25] MEDS: ENOXAPARIN 40 MG/0.4 ML SQ SCH (08:48)
[2018-06-25] MEDS: DULERA 200/5 (MOMETASONE/FORMOTEROL) INHALER IH SCH (08:48)
[2018-06-25] MEDS: FUROSEMIDE 40 MG/4 ML VIAL IV SCH (08:49)
[2018-06-25] MEDS: METOPROLOL TAR 50 MG TAB PO SCH (08:49)
[2018-06-25] MEDS: ASPIRIN EC 81 MG TAB PO SCH (08:49)
[2018-06-25] MEDS ORDERED: AZITHROMYCIN 250 MG TAB PO SCH (09:00)
[2018-06-25 09:39] LABS: Absolute Lymphocytes (CBC) 2.3 K/uL (0.7-4.9); Absolute Monocytes 0.9 K/uL (0.1-1.3); Absolute Neutrophil 4.4 K/uL (1.8-8.0); Basophils % 0.4 % (0-1.3); Eosinophils % 1.1 % (0-4.4); Hematocrit 35.5 % (39.6-49.0); Lymphocytes % 29.6 % (15.3-44.8); MPV 9.1 fL (7.6-11.3); Monocytes % 11.9 % (3.3-12.3); RBC Red Blood Cell Count 5.84 M/uL (4.33-5.43)
[2018-06-25 09:45] LABS: Potassium 4.3 mmol/L (3.5-5.1)
--- NOTE | 2018-06-25 10:54 | P.DS ---
Admission Date: 06/22/18 Discharge Date: 06/25/18 Disposition: ROUTINE DISCHARGE Discharge Condition: FAIR Reason for Admission: Shortness of breath - Problems (1) Acute dyspnea Onset Date: 11/15/16 Current Visit: No Status: Acute (2) Acute on chronic systolic (congestive) heart failure Onset Date: 09/01/17 Current Visit: No Status: Acute (3) COPD exacerbation Onset Date: 12/19/15 Current Visit: No Status: Acute (4) Elevated troponin Onset Date: 03/31/17 Current Visit: No Status: Acute (5) Hyperlipidemia Onset Date: 07/19/16 Current Visit: No Status: Chronic Qualifiers: (6) Hypertension Onset Date: 02/05/16 Current Visit: No Status: Chronic Qualifiers: (7) Nicotine dependence Onset Date: 04/03/17 Current Visit: No Status: Chronic Qualifiers: (8) Noncompliance Onset Date: 03/18/16 Current Visit: No Status: Chronic (9) Type 2 diabetes mellitus Onset Date: 12/10/16 Current Visit: No Status: Chronic Qualifiers: (10) History of prostate cancer Current Visit: No Status: Chronic Brief History of Present Illness: The patient is a 67-year-old male with past medical history of congestive heart failure, hypertension, history of prostate cancer, history of brain aneurysm requiring surgery, COPD, nicotine dependence, who is homeless, who has had multiple admissions for similar episodes of shortness of breath, most recently on 06/11/2018. The patient states that he is having some shortness of breath. Denies any chest pain. No cough, fever, chills. The patient actually states that he has been taking his medications. His symptoms are constant, moderate, and progressively worsening. His workup revealed elevated BNP of 10,000, he had a troponin bump of 0.11. Creatinine was elevated above baseline at 1.5. His chest x-ray showed mild pulmonary edema. The patient was treated in the ER , and referred for admission. Hospital Course: Patient was admitted for acute dyspnea, likely secondary to his CHF and COPD exacerbation. Patient had had multiple admissions to the hospital for similar complaints. He was started on CHF guidelines and diuresed wiht IV lasix. He did have elevated troponins, though this is likely secondary to his CHF. He declined any chest pain through out the stay. He was started on breathing treatments. He was instructed, educated and re-educated on fluid restriction. He continued to ask if we could lift his fluid restrictions. His urine output remained good throughout the stay. His stay was complicated by a fever, he was started on azihtromycin though he did not have any evidence of sepsis. His lacate was normal, blood cultures negative x24 hrs, WBC levels normal and he otherwise remained hemodynamically stable. Unsure if patient had drank something hot, was under blankets, etc. He remained afebrile overnight, prior to discharge. He was provided oxygen as needed and prior to discharge, he was satting well on room air. He is homeless, by choice. He has declined multiple attempts for [facility] placement as he prefers to live in the [facility]. He has a tent out in the [facility]. There have been a few times where his medications have been paid for by hospital but he has not picked them up from the pharmacy. He does need long- term assistance but he has declined multiple previous attempts. Prior to discharge this time, I did discuss and re-discussed the importance of picking up his medications and fluid restriction. if he does not, this will continue to happen and can worsen each time. He stated that he would just come back in but said that he will get pain on the 1st and he will see if he can crop picker the medications at that time. Vital Signs/Physical Exam: Temp Pulse Resp BP Pulse Ox 99.0 F 86 32 H 134/80 90 L 06/25/18 08:00 06/25/18 08:49 06/25/18 08:00 06/25/18 08:49 06/25/18 08:00 General: Alert, In no apparent distress, Oriented x3 HEENT: Atraumatic, PERRLA, EOMI Neck: Supple, JVD not distended Respiratory: Normal air movement, Expiratory wheezes (at bilateral bases) Cardiovascular: Regular rate/rhythm, Normal S1 S2 Gastrointestinal: Normal bowel sounds, No tenderness Musculoskeletal: No tenderness Integumentary: No rashes Laboratory Data at Discharge: WBC 7.7 K/uL (4.3-10.9) D 06/25/18 09:15 Hgb 10.3 g/dL (13.6-17.9) L 06/25/18 09:15 Hct 35.5 % (39.6-49.0) L 06/25/18 09:15 Plt Count 241 K/uL (152-406) 06/25/18 09:15 PT 16.4 SECONDS (9.5-12.5) H 06/22/18 16:00 INR 1.41 06/22/18 16:00 APTT 25.2 SECONDS (24.3-36.9) 06/22/18 16:00 Sodium 142 mmol/L (136-145) 06/25/18 09:16 Potassium 4.3 mmol/L (3.5-5.1) 06/25/18 09:16 BUN 19 mg/dL (7-18) H 06/25/18 09:16 Creatinine 1.36 mg/dL (0.55-1.3) H 06/25/18 09:16 Glucose 203 mg/dL (74-106) H 06/25/18 09:16 Magnesium 2.1 mg/dL (1.8-2.4) 06/22/18 16:00 Total Bilirubin 0.6 mg/dL (0.2-1.0) 06/24/18 10:05 AST 139 U/L (15-37) H 06/24/18 10:05 ALT 156 U/L (12-78) H 06/24/18 10:05 Alkaline Phosphatase 80 U/L (45-117) 06/24/18 10:05 Home Medications: Albuterol Sulfate [Proair Hfa] 1 puff IH TID 06/22/18 Aspirin [Aspirin EC 81 MG] 81 mg PO DAILY 06/22/18 Mometasone/Formoterol [Dulera 200 Mcg/5 Mcg Inhaler] 1 puff IH BID 06/22/18 Furosemide [Lasix] 80 mg PO BID #60 tablet 06/25/18 Lisinopril 10 mg PO DAILY #30 tablet 06/25/18 Metoprolol Tartrate 25 mg PO BID #60 tablet 06/25/18 New Medications: Furosemide [Lasix] 80 mg PO BID #60 tablet Lisinopril 10 mg PO DAILY #30 tablet Metoprolol Tartrate 25 mg PO BID #60 tablet Patient Discharge Instructions: Please crop picker your medications from the pharmacy. Pelase return to the Emergency room for worsening symtpoms. Diet: Fluid restriction Activity: Ad kim Time spent managing pt's care (in minutes): 55
[2018-06-25 12:51] VITALS: O2SAT 94
[2018-06-25 12:53] VITALS: BP 121/65; TEMP 99.3
== END 2018-06-25 13:39 | disposition home or self-care (01) | DRG 292 ==
LOC: ER 15:29 → ERHOLD 18:03 → 4TH 19:46 → OBSVTOIN 06-24 17:14
PROVIDERS: ADMIT Family Medicine; ATTEND Family Medicine
DX: I11.0 Hypertensive heart disease with heart failure (principal); J44.1 Chronic obstructive pulmonary disease with (acute) exacerbation; I50.23 Acute on chronic systolic (congestive) heart failure; I25.10 Atherosclerotic heart disease of native coronary artery without angina pectoris; K21.9 Gastro-esophageal reflux disease without esophagitis; F17.210 Nicotine dependence, cigarettes, uncomplicated; Z91.14 Patient's other noncompliance with medication regimen; E78.5 Hyperlipidemia, unspecified; Z59.0 Homelessness; Z85.46 Personal history of malignant neoplasm of prostate; Z95.5 Presence of coronary angioplasty implant and graft
CPT/HCPCS: 36415; 71045; 80048; 80053; 80076; 82550; 83605; 83735; 83880; 84484; 85025; 85610; 85730; 87040; 87804; 93005; 94640; 94760; 96365; 96372; 96375; 99284; G0378; J0456; J0696; J1650; J1940; J2405; J7606

== ENCOUNTER 2018-06-27 21:46 | Observation (INO) | payer OTHER ==
--- OUTSIDE RECORDS SUMMARY | 2018-06-27 21:48 | XMS REPORT ---
:1950 [facility] Address [address] [place] [address] Care Team Providers Name Role Phone Unavailable Unavailable Unavailable Payers Payer Name Policy Type Policy Number Effective Date Expiration Date Problems This patient has no known problems. Allergies, Adverse Reactions, Alerts Allergy Name Allergy Status Severity Reaction(s) Onset Inactive Treating Comments Type Date Date Clinician diphenhydramine DA Active U 2017- 8 00:00: 00 Medications This patient has no known medications.
[2018-06-27] MEDS ORDERED: IPRATROPIUM BROM 0.5MG/2.5ML ONE (22:42)
[2018-06-27] MEDS ORDERED: METHYLPREDNISOLONE 125 MG INJ ONE (22:42)
[2018-06-27] MEDS ORDERED: LEVALBUTEROL 1.25 MG/3 ML NEB ONE (22:42)
[2018-06-27 22:50] LABS: Absolute Lymphocytes (CBC) 2.4 K/uL (0.7-4.9); Absolute Monocytes 1.2 K/uL (0.1-1.3); Absolute Neutrophil 4.5 K/uL (1.8-8.0); Basophils % 1.2 % (0-1.3); Hematocrit 34.1 % (39.6-49.0); Lymphocytes % 28.4 % (15.3-44.8); MPV 9.2 fL (7.6-11.3); Monocytes % 13.7 % (3.3-12.3); RBC Red Blood Cell Count 5.69 M/uL (4.33-5.43)
[2018-06-27 22:52] LABS: Protime INR 1.27
[2018-06-27 23:05] LABS: Albumin 3.2 g/dL (3.4-5.0); Bilirubin Direct 0.2 mg/dL (0-0.2); Bilirubin Total 0.8 mg/dL (0.2-1.0); Potassium 3.6 mmol/L (3.5-5.1); Protein, Total 6.6 g/dL (6.4-8.2); Troponin (Emerg Dept Use Only) 0.11 ng/mL (0.0-0.045)
--- NOTE | 2018-06-27 23:35 | ER ---
Nurse's Notes [facility] Name: Mark Terrell Age: 67 yrs Sex: Male : 1950 Arrival Date: 06/27/2018 Time: 21:52 Bed 27 Private MD: Diagnosis: Chronic obstructive pulmonary disease with (acute) exacerbation;Unspecified combined systolic (congestive) and diastolic (congestive) heart failure;Tobacco abuse counseling;Tobacco use;Anemia, unspecified Presentation: 06/27 21:59 Presenting complaint: EMS states: patient has mild difficulty breathing and cough for mg2 almost 2 weeks now. blood pressure on scene was high 204/119 but denies any pain or dizziness. the last time he took his bp meds was the other day. Transition of care: patient was not received from another setting of care. Onset of symptoms was June 2018. Risk Assessment: Do you want to hurt yourself or someone else? Patient reports no desire to harm self or others. Initial Sepsis Screen: Does the patient meet any 2 criteria? No. Patient's initial sepsis screen is negative. Does the patient have a suspected source of infection? No. Patient's initial sepsis screen is negative. Care prior to arrival: None. 21:59 Method Of Arrival: EMS: [facility] mg2 21:59 Acuity: ARIEL 3 mg2 Triage Assessment: 23:38 Pain: Denies pain. mg2 06/28 00:31 General: Appears in no apparent distress. Behavior is calm, cooperative. EENT: No mg2 deficits noted. Neuro: Level of Consciousness is awake, alert, obeys commands, Oriented to person, place, time, situation. Cardiovascular: Capillary refill < 3 seconds Patient's skin is warm and dry. Respiratory: Airway is patent Respiratory effort is even, unlabored, Respiratory pattern is regular, symmetrical, Breath sounds with rhonchi bilaterally. in right upper lobe and left upper lobe. GI: No signs and/or symptoms were reported involving the gastrointestinal system. : No signs and/or symptoms were reported regarding the genitourinary system. Derm: Skin is intact, is healthy with good turgor, Skin is pink, warm \T\ dry. normal. Musculoskeletal: Circulation, motion, and sensation intact. Capillary refill < 3 seconds. Historical: - Allergies: 06/27 22:04 Benadryl; mg2 - Home Meds: 22:04 Metoprolol Tartrate Oral [Active]; mg2 - PMHx: 22:04 Aneurysm; BRAIN; Atrial Fib; Cancer; PROSTATE; CHF; COPD; Hypertension; Prostate Cancer;mg2 - PSHx: 22:04 prostatectomy; aneurysm repair; mg2 - Immunization history:: Flu vaccine is up to date. - Social history:: Smoking status: Patient uses tobacco products, cigars, 4 sticks a day, Patient/guardian denies using alcohol, street drugs, IV drugs. - Ebola Screening: : No symptoms or risks identified at this time. - Family history:: not pertinent. Screenin:37 Abuse screen: Denies threats or abuse. Denies injuries from another. Nutritional mg2 screening: No deficits noted. Tuberculosis screening: No symptoms or risk factors identified. Fall Risk IV access (20 points). Assessment: 22:53 General: Appears in no apparent distress. comfortable, Behavior is calm, cooperative. mg2 Vital Signs: 22:02 BP 178 / 130; Pulse 104; Resp 20; Temp 97.8; Pulse Ox 95% on R/A; Weight 75.75 kg; mg2 Height 5 ft. 11 in. (180.34 cm); Pain 0/10; 23:02 BP 154 / 110; Pulse 98; Resp 18; Pulse Ox 100% on R/A; mg2 06/28 00:14 BP 159 / 89; Pulse 98; Resp 25; Temp 98(O); Pulse Ox 93% on R/A; Pain 0/10; mg2 06/27 22:02 Body Mass Index 23.29 (75.75 kg, 180.34 cm) mg2 ED Course: 06/27 21:52 Patient arrived in ED. mg2 21:53 Satish Catalan MD is Attending Physician. mónica 21:53 Rj Arnold NP is PHCP. pm1 22:02 Triage completed. mg2 22:05 Arm band placed on. mg2 22:25 Sidney Kerr RN is Primary Nurse. mg2 22:54 XRAY Chest (1 view) In Process Unspecified. EDMS 23:32 Jose Mason MD is Hospitalizing Provider. mónica 23:37 Patient has correct armband on for positive identification. practice architect on. Pulse mg2 ox on. NIBP on. Door closed. 23:37 No provider procedures requiring assistance completed. Inserted saline lock: 22 gauge mg2 in right antecubital area, using aseptic technique. Blood collected. by RONAL Hernández. 06/28 00:32 Patient did not have IV access during this emergency room visit. mg2 Administered Medications: 06/27 22:38 Drug: SOLU-Medrol 125 mg Route: IVP; Site: right antecubital; mg2 23:27 Follow up: Response: No adverse reaction; Marked relief of symptoms mg2 22:38 Drug: Xopenex 3.75 mg Route: Inhalation; mg2 23:27 Follow up: Response: No adverse reaction; Marked relief of symptoms mg2 22:38 Drug: AtroVENT Aerosol 0.5 mg Route: Inhalation; mg2 23:27 Follow up: Response: No adverse reaction; Marked relief of symptoms mg2 23:36 Drug: Lasix 40 mg Route: IVP; Site: right antecubital; mg2 06/28 00:14 Follow up: Response: No adverse reaction; patient urineated 300 ml of urine mg2 06/27 23:36 Drug: levofloxacin 500 mg Volume: 100 ml; Route: IVPB; Infused Over: 60 mins; Site: mg2 right antecubital; 06/28 00:13 Follow up: Response: No adverse reaction; IV Status: Infusion continued upon admission mg2 00:13 Drug: Pepcid 20 mg Route: IVP; Site: right antecubital; mg2 00:14 Follow up: Response: No adverse reaction mg2 00:13 Drug: Aspirin 162 mg Route: PO; mg2 00:14 Follow up: Response: No adverse reaction mg2 00:13 Drug: Lovenox 1 mg/kg Route: Sub-Q; Site: right lower abdomen; mg2 00:14 Follow up: Response: No adverse reaction mg2 00:13 Drug: Lopressor 25 mg Route: PO; mg2 00:14 Follow up: Response: No adverse reaction mg2 Intake: Output: 00:45 Urine: 900ml (Voided); Total: 900ml. mg2 Outcome: 06/27 23:34 Decision to Hospitalize by Provider. mónica 06/28 00:32 Admitted to Med/surg accompanied by tech, via stretcher, room 219, with oxygen, with mg2 chart, Report called to LASHAY Contreras Condition: stable Discharge instructions given to patient, Instructed on the need for admit, Demonstrated understanding of instructions. 00:58 Patient left the ED. mg2 Signatures: Dispatcher [employer] Satish Johnson MD MD cha Marinas, Rj, SEWING TEACHER SEWING TEACHER pm1 Sidney Kerr, RN RN mg2
--- NOTE | 2018-06-27 23:35 | EDPHYS ---
Physician Documentation [facility] Name: Mark Terrell Age: 67 yrs Sex: Male : 1950 Arrival Date: 06/27/2018 Time: 21:52 Bed 27 Private MD: ED Physician Satish Catalan HPI: 06/27 23:25 This 67 yrs old Male presents to ER via EMS with complaints of sob and cough. mónica 23:25 The patient has shortness of breath at rest, with light activity. Onset: The mónica symptoms/episode began/occurred 2 day(s) ago. The patient's shortness of breath has no apparent modifying factors. The patient or guardian reports airway noise, cough, difficulty breathing. Modifying factors: The symptoms are alleviated by nothing. the symptoms are aggravated by activity, lying flat. Associated signs and symptoms: The patient has no apparent associated signs or symptoms. Historical: - Allergies: 22:04 Benadryl; mg2 - Home Meds: 22:04 Metoprolol Tartrate Oral [Active]; mg2 - PMHx: 22:04 Aneurysm; BRAIN; Atrial Fib; Cancer; PROSTATE; CHF; COPD; Hypertension; Prostate Cancer;mg2 - PSHx: 22:04 prostatectomy; aneurysm repair; mg2 - Immunization history:: Flu vaccine is up to date. - Social history:: Smoking status: Patient uses tobacco products, cigars, 4 sticks a day, Patient/guardian denies using alcohol, street drugs, IV drugs. - Ebola Screening: : No symptoms or risks identified at this time. - Family history:: not pertinent. ROS: 23:25 Constitutional: Negative for fever, chills, and weight loss, Eyes: Negative for injury, mónica pain, redness, and discharge, ENT: Negative for injury, pain, and discharge, Neck: Negative for injury, pain, and swelling, Cardiovascular: Negative for chest pain, palpitations, and edema, Abdomen/GI: Negative for abdominal pain, nausea, vomiting, diarrhea, and constipation, Back: Negative for injury and pain, : Negative for injury, bleeding, discharge, and swelling, MS/Extremity: Negative for injury and deformity, Skin: Negative for injury, rash, and discoloration, Neuro: Negative for headache, weakness, numbness, tingling, and seizure, Psych: Negative for depression, anxiety, suicide ideation, homicidal ideation, and hallucinations, Allergy/Immunology: Negative for hives, rash, and allergies, Endocrine: Negative for neck swelling, polydipsia, polyuria, polyphagia, and marked weight changes, Hematologic/Lymphatic: Negative for swollen nodes, abnormal bleeding, and unusual bruising. 23:25 Respiratory: Positive for cough, dyspnea on exertion, shortness of breath, wheezing, inspiratory, expiratory. Exam: 23:25 Constitutional: This is a well developed, well nourished patient who is awake, alert, mónica and in no acute distress. Head/Face: Normocephalic, atraumatic. Eyes: Pupils equal round and reactive to light, extra-ocular motions intact. Lids and lashes normal. Conjunctiva and sclera are non-icteric and not injected. Cornea within normal limits. Periorbital areas with no swelling, redness, or edema. ENT: Nares patent. No nasal discharge, no septal abnormalities noted. Tympanic membranes are normal and external auditory canals are clear. Oropharynx with no redness, swelling, or masses, exudates, or evidence of obstruction, uvula midline. Mucous membranes moist. Neck: Trachea midline, no thyromegaly or masses palpated, and no cervical lymphadenopathy. Supple, full range of motion without nuchal rigidity, or vertebral point tenderness. No Meningismus. Chest/axilla: Normal chest wall appearance and motion. Nontender with no deformity. No lesions are appreciated. Cardiovascular: Regular rate and rhythm with a normal S1 and S2. No gallops, murmurs, or rubs. Normal PMI, no JVD. No pulse deficits. Abdomen/GI: Soft, non-tender, with normal bowel sounds. No distension or tympany. No guarding or rebound. No evidence of tenderness throughout. Back: No spinal tenderness. No costovertebral tenderness. Full range of motion. Male : Normal genitalia with no discharge or lesions. Skin: Warm, dry with normal turgor. Normal color with no rashes, no lesions, and no evidence of cellulitis. 23:25 Respiratory: mild respiratory distress is noted, moderate respiratory distress is noted, Respirations: labored breathing, that is mild, Breath sounds: bronchial sounds, decreased breath sounds, rhonchi, wheezing: expiratory Vital Signs: 22:02 BP 178 / 130; Pulse 104; Resp 20; Temp 97.8; Pulse Ox 95% on R/A; Weight 75.75 kg; mg2 Height 5 ft. 11 in. (180.34 cm); Pain 0/10; 23:02 BP 154 / 110; Pulse 98; Resp 18; Pulse Ox 100% on R/A; mg2 06/28 00:14 BP 159 / 89; Pulse 98; Resp 25; Temp 98(O); Pulse Ox 93% on R/A; Pain 0/10; mg2 06/27 22:02 Body Mass Index 23.29 (75.75 kg, 180.34 cm) mg2 MDM: 06/27 21:54 Patient medically screened. [facility] 23:32 Data reviewed: vital signs, nurses notes, lab test result(s), EKG, radiologic studies, [facility] plain films. 06/27 21:55 Order name: Basic Metabolic Panel; Complete Time: 23:24 [facility] 06/27 21:55 Order name: CBC with Diff [facility] 06/27 21:55 Order name: LFT's; Complete Time: 23:24 [facility] 06/27 21:55 Order name: Magnesium; Complete Time: 23:24 [facility] 06/27 21:55 Order name: NT PRO-BNP; Complete Time: 23:24 [facility] 06/27 21:55 Order name: PT-INR; Complete Time: 23:24 [facility] 06/27 21:55 Order name: Troponin (emerg Dept Use Only); Complete Time: 23:24 [facility] 06/27 21:55 Order name: Lipase; Complete Time: 23:24 [facility] 06/27 21:55 Order name: Blood Culture Adult (2) [facility] 06/27 21:55 Order name: Procalcitonin [facility] 06/27 21:55 Order name: UDS [facility] 06/27 22:54 Order name: CBC Smear Scan [facility] 06/28 00:18 Order name: Urine Dipstick--Ancillary (enter results) ar5 06/28 00:25 Order name: Lactate [facility] 06/27 21:55 Order name: XRAY Chest (1 view) [facility] 06/28 00:25 Order name: Lactate [facility] 06/28 00:25 Order name: NT PRO-BNP [facility] 06/28 00:25 Order name: NT PRO-BNP [facility] 06/28 00:25 Order name: Troponin I [facility] 06/28 00:25 Order name: Troponin I [facility] 06/28 00:25 Order name: Troponin I [facility] 06/28 00:26 Order name: Urinalysis [facility] 06/27 21:55 Order name: EKG; Complete Time: 21:56 [facility] 06/27 21:55 Order name: Cardiac monitoring; Complete Time: 22:38 [facility] 06/27 21:55 Order name: EKG - Nurse/Tech; Complete Time: 22:38 [facility] 06/27 21:55 Order name: IV Saline Lock; Complete Time: 22:38 [facility] 06/27 21:55 Order name: Labs collected and sent; Complete Time: 22:38 [facility] 06/27 21:55 Order name: O2 Per Protocol; Complete Time: 22:39 [facility] 06/27 21:55 Order name: O2 Sat Monitoring; Complete Time: 22:39 [facility] 06/27 21:55 Order name: Urine Dipstick-Ancillary (obtain specimen); Complete Time: 00:15 [facility] 06/28 00:25 Order name: Heart Healthy EDCA Administered Medications: 22:38 Drug: SOLU-Medrol 125 mg Route: IVP; Site: right antecubital; mg2 23:27 Follow up: Response: No adverse reaction; Marked relief of symptoms mg2 22:38 Drug: Xopenex 3.75 mg Route: Inhalation; mg2 23:27 Follow up: Response: No adverse reaction; Marked relief of symptoms mg2 22:38 Drug: AtroVENT Aerosol 0.5 mg Route: Inhalation; mg2 23:27 Follow up: Response: No adverse reaction; Marked relief of symptoms mg2 23:36 Drug: Lasix 40 mg Route: IVP; Site: right antecubital; mg2 06/28 00:14 Follow up: Response: No adverse reaction; patient urineated 300 ml of urine mg2 06/27 23:36 Drug: levofloxacin 500 mg Volume: 100 ml; Route: IVPB; Infused Over: 60 mins; Site: mg2 right antecubital; 06/28 00:13 Follow up: Response: No adverse reaction; IV Status: Infusion continued upon admission mg2 00:13 Drug: Pepcid 20 mg Route: IVP; Site: right antecubital; mg2 00:14 Follow up: Response: No adverse reaction mg2 00:13 Drug: Aspirin 162 mg Route: PO; mg2 00:14 Follow up: Response: No adverse reaction mg2 00:13 Drug: Lovenox 1 mg/kg Route: Sub-Q; Site: right lower abdomen; mg2 00:14 Follow up: Response: No adverse reaction mg2 00:13 Drug: Lopressor 25 mg Route: PO; mg2 00:14 Follow up: Response: No adverse reaction mg2 Disposition: 06/27/18 23:34 Hospitalization ordered by Jose Mason for Inpatient Admission. Preliminary diagnosis are Chronic obstructive pulmonary disease with (acute) exacerbation, Unspecified combined systolic (congestive) and diastolic (congestive) heart failure, Tobacco abuse counseling, Tobacco use, Anemia, unspecified. - Bed requested for Telemetry/MedSurg (Inpatient). - Status is Inpatient Admission. mg2 - Condition is Fair. - Problem is new. - Symptoms have improved. UTI on Admission? No Signatures: Dispatcher [employer] EDRoseann Winter RN RN mw Anderson, Corey, MD MD cha Gardose, Michele, RN RN mg2 Corrections: (The following items were deleted from the chart) 06/27 23:35 23:34 Hospitalization Ordered by Jose Mason MD for Inpatient Admission. Preliminary mónica diagnosis is Chronic obstructive pulmonary disease with (acute) exacerbation; Unspecified combined systolic (congestive) and diastolic (congestive) heart failure; Tobacco abuse counseling; Tobacco use. Bed requested for Telemetry/MedSurg (Inpatient). Status is Inpatient Admission. Condition is Fair. Problem is new. Symptoms have improved. UTI on Admission? No. mónica 23:51 23:35 06/27/2018 23:34 Hospitalization Ordered by Jose Mason MD for Inpatient mw Admission. Preliminary diagnosis is Chronic obstructive pulmonary disease with (acute) exacerbation; Unspecified combined systolic (congestive) and diastolic (congestive) heart failure; Tobacco abuse counseling; Tobacco use; Anemia, unspecified. Bed requested for Telemetry/MedSurg (Inpatient). Status is Inpatient Admission. Condition is Fair. Problem is new. Symptoms have improved. UTI on Admission? No. mónica 06/28 00:58 06/27 23:51 06/27/2018 23:34 Hospitalization Ordered by Jose Mason MD for Inpatient mg2 Admission. Preliminary diagnosis is Chronic obstructive pulmonary disease with (acute) exacerbation; Unspecified combined systolic (congestive) and diastolic (congestive) heart failure; Tobacco abuse counseling; Tobacco use; Anemia, unspecified. Bed requested for Telemetry/MedSurg (Inpatient). Status is Inpatient Admission. Condition is Fair. Problem is new. Symptoms have improved. UTI on Admission? No. mw
[2018-06-27] MEDS ORDERED: FUROSEMIDE 40 MG/4 ML VIAL ONE (23:42)
[2018-06-27] MEDS ORDERED: Levofloxacin500mg IV 500 MG/100 ML BAG IV ONE (23:42)
[2018-06-27 23:58] LABS: Anisocytosis 2+; Blood Morphology Comment NOTED (NOT SEEN); Hypochromasia 3+; Ovalocytes 2+; Platelet Estimate ADEQ
[2018-06-27 23:59] LABS: Urine White Blood Cell Casts OK
[2018-06-27] MEDS ORDERED: ASPIRIN EC 81 MG TAB PO ONE (23:59)
[2018-06-27] MEDS ORDERED: METOPROLOL TAR 25 MG TAB ONE (23:59)
[2018-06-28] MEDS ORDERED: ENOXAPARIN 80 MG/0.8 ML SQ ONE
[2018-06-28] MEDS ORDERED: FAMOTIDINE 20 MG/2 ML VIAL IV ONE
[2018-06-28] MEDS ORDERED: ACETAMINOPHEN 500 MG TAB PO PRN (00:20)
[2018-06-28] MEDS ORDERED: ONDANSETRON 4 MG/2 ML VIAL IV PRN (00:20)
[2018-06-28 01:00] LABS: Urine Blood NEGATIVE (NEG); Urine Glucose NEGATIVE (NEG); Urine Protein 2+ (NEG); Urine Specific Gravity 1.015 (1.005-1.030)
[2018-06-28 01:18] LABS: Barbiturates NEGATIVE (NEGATIVE); Benzodiazepines NEGATIVE (NEGATIVE); Cocaine NEGATIVE (NEGATIVE); METHAMPHETAM NEGATIVE (NEGATIVE); Methadone NEGATIVE (NEGATIVE); Opiates NEGATIVE (NEGATIVE); Phencyclidine NEGATIVE (NEGATIVE); THC Cannibis NEGATIVE (NEGATIVE)
[2018-06-28] MEDS: ALBUTEROL 2.5 MG/3 ML NEB SOL NEB SCH ×4 (02:00→20:00)
[2018-06-28] MEDS: IPRATROPIUM BROM 0.5MG/2.5ML NEB SCH ×4 (02:00→20:00)
[2018-06-28] MEDS: FUROSEMIDE 40 MG/4 ML VIAL IV SCH ×3 (02:19→16:30)
[2018-06-28] MEDS ORDERED: Magnesium Sulfate 2gm IVPB 2 G/50 ML BAG IV ONE (04:03)
[2018-06-28 05:05] LABS: Urine Appearance CLEAR; Urine Bilirubin NEGATIVE (NEG); Urine Blood NEGATIVE (NEG); Urine Color YELLOW; Urine Glucose 2+ (NEG); Urine Protein NEGATIVE (NEG); Urine Urobilinogen 0.2 mg/dL (0.2-1.0)
[2018-06-28 05:08] LABS: Urine Microscopic Reflex NO UMIC
[2018-06-28 05:16] LABS: Troponin I 0.08 ng/mL (0.0-0.045)
[2018-06-28] MEDS: METHYLPREDNISOLONE 125 MG INJ IV SCH ×3 (05:53→16:39)
--- NOTE | 2018-06-28 07:48 | EKG ---
Test Date: 2018-06-27 Test Time: 22:50:47 [employer] Team: TERESA MEASUREMENT RESULTS: Intervals: Rate: 95 SC: 146 QRSD: 116 QT: 412 QTc: 517 [place]: P: 72 SC: 146 QRS: 76 T: 70 INTERPRETIVE STATEMENTS: Undetermined rhythm Prolonged QT Abnormal ECG Compared to ECG 06/22/2018 15:43:39 Prolonged QT interval now present Sinus tachycardia no longer present Ventricular premature complex(es) no longer present Left ventricular hypertrophy no longer present Electronically Signed On 06-28-18 07:46:39 CDT by Cyrus Porter
--- NOTE | 2018-06-28 08:00 | P.HP ---
Certification for Inpatient Patient admitted to: Observation With expected LOS: <2 Midnights Patient will require the following post-hospital care: None Practitioner: I am a practitioner with admitting privileges, knowledge of patient current condition, hospital course, and medical plan of care. Services: Services provided to patient in accordance with Admission requirements found in Title 42 Section 412.3 of the Code of Federal Regulations Patient History Date of Service: 06/28/18 Reason for admission: Shortness of breath History of Present Illness: Patient is a 67-year-old gentleman who came to the hospital with shortness of breath. Patient comes into the emergency room multiple times every month with shortness of breath. He is not really compliant with his medication. Patient does not take his medicines as prescribed because of his current living situation. He wants to stay in the hospital until the of the month but he will get his paycheck but I spoke to him that it really depends home will we fine while we are working him up. He normally gets admitted with CHF exacerbation. His chest x-ray from today also reveals worsening fluid overload. Patient will be admitted to the hospital for an acute CHF exacerbation. We came up to the floor he also had a small episode where his rhythm had the appearance of torsades. I gave an extra dose of magnesium to assist. Case management consultation once again. His long-term prognosis remains poor mainly because of his long-term issues with compliance. Allergies poison chandana extract Allergy (Intermediate, Verified 06/28/18 01:19) Hives diphenhydramine HCl [From Benadryl] Adverse Reaction (Intermediate, Verified 01:19) Hives Home Medications: NK [No Home Meds] 06/28/18 - Past Medical/Surgical History Has patient received pneumonia vaccine in the past: Yes Diabetic: No -: History of prostate cancer -: Hypertension -: History of brain aneurysm requiring surgery -: CHF, systolic dysfunction -: COPD -: Tobacco abuse -: Hyper low -: Coronary disease, stents x3 to LAD/RCA(Feb 2016) -: Anemia of chronic disease -: GERD -: anemia -: hyperlipidemia -: Prostate surgery -: Brain aneurysm surgery -: Toe surgery R. great toe/childhood -: Heart catheterization-3stents LAD/RCA Psychosocial/ Personal History: Patient is homeless. He is single. He has no children. 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 - Family History Father Medical History: Cancer Notes: brain cancer Mother Medical History: Cancer Notes: pancreatic cancer Brother Medical History: Cancer Notes: lung cancer - Social History Smoking Status: Current every day smoker Alcohol use: No CD- Drugs: No Caffeine use: Yes Place of Residence: Homeless Review of Systems 10-point ROS is otherwise unremarkable Physical Examination - Vital Signs Temperature: 98 F Blood Pressure: 159/89 Pulse: 98 Respirations: 25 Pulse Ox (%): 85 - Physical Exam General: Alert, In no apparent distress, Oriented x3 HEENT: Atraumatic, PERRLA, Mucous membr. moist/pink, EOMI, Sclerae nonicteric Neck: Supple, 2+ carotid pulse no bruit, No LAD, Without JVD or thyroid abnormality Respiratory: Crackles/rales Cardiovascular: Regular rate/rhythm, Normal S1 S2, Systolic murmur Gastrointestinal: Normal bowel sounds, Hypoactive, Soft and benign, No tenderness, Distended Musculoskeletal: No clubbing, No tenderness, Swelling Integumentary: No rashes Neurological: Normal gait, Normal speech, Normal tone, Sensation intact, Cranial nerves 3-12 intact, Normal affect, Abnormal strength (4/5) Lymphatics: No axilla or inguinal lymphadenopathy - Studies Laboratory Data (last 24 hrs) 06/27/18 22:25: PT 14.9 H, INR 1.27 06/27/18 22:25: WBC 8.6, Hgb 10.0 L, Hct 34.1 L, Plt Count 288 06/27/18 22:25: Sodium 143, Potassium 3.6, BUN 13, Creatinine 1.22, Glucose 98, Magnesium 2.0, Total Bilirubin 0.8, AST 61 H, ALT 181 H, Alkaline Phosphatase 78 , Lipase 69 L Assessment & Plan - Problems (Diagnosis) (1) Acute dyspnea Onset Date: 11/15/16 Current Visit: No Status: Acute (2) Acute on chronic systolic (congestive) heart failure Onset Date: 09/01/17 Current Visit: No Status: Acute (3) COPD exacerbation Onset Date: 12/19/15 Current Visit: No Status: Acute (4) Congestive heart failure with left ventricular diastolic dysfunction Onset Date: 12/10/16 Current Visit: No Status: Acute Qualifiers: (5) Flash pulmonary edema Onset Date: 07/19/16 Current Visit: No Status: Acute (6) Hypoxemia Onset Date: 03/08/16 Current Visit: No Status: Acute (7) NSTEMI (non-ST elevated myocardial infarction) Onset Date: 02/17/17 Current Visit: No Status: Acute (8) CAD (coronary artery disease) Current Visit: No Status: Chronic Qualifiers: (9) History of prostate cancer Current Visit: No Status: Chronic (10) Hyperlipidemia Onset Date: 07/19/16 Current Visit: No Status: Chronic Qualifiers: (11) Hypertension Onset Date: 02/05/16 Current Visit: No Status: Chronic Qualifiers: (12) Noncompliance Onset Date: 03/18/16 Current Visit: No Status: Chronic (13) Tobacco abuse Onset Date: 02/05/16 Current Visit: No Status: Chronic (14) Type 2 diabetes mellitus Onset Date: 12/10/16 Current Visit: No Status: Chronic Qualifiers: - Plan 1. Echocardiogram 2. Resume cardiac medications 3. Cousel regarding tobacco cessation 4. Cardiology consultation 5. Aggressive diuresis 6. Strict I's and O's 7. Repeat CXR 8. Daily weights 9. Education regarding diet and treatment of congestive heart failure - Advance Directives Does patient have a Living Will: No Does patient have a Durable POA for Healthcare: No
[2018-06-28] MEDS: ENOXAPARIN 40 MG/0.4 ML SQ SCH (10:11)
--- NOTE | 2018-06-28 11:29 | RAD REPORT ---
EXAM DESCRIPTION: RAD - Chest Single View - 06/27/2018 10:54 pm CLINICAL HISTORY: COPD;Cough;Chest pain Chest pain. COMPARISON: <Comparisons> FINDINGS: Portable technique limits examination quality. Bilateral pulmonary opacities are again noted, appearing stable since the comparative study. The hear t is moderately enlarged in size. No displaced fractures. IMPRESSION: Stable chest since 06/24/2018 study.
[2018-06-28] MEDS ORDERED: ALBUTEROL 2.5 MG/3 ML NEB SOL NEB PRN (20:22)
[2018-06-28] MEDS ORDERED: IPRATROPIUM BROM 0.5MG/2.5ML NEB PRN (20:22)
[2018-06-28] MEDS: FAMOTIDINE 20 MG TAB PO SCH (20:48)
[2018-06-28 21:37] VITALS: O2SAT 94
[2018-06-29] MEDS: FUROSEMIDE 40 MG/4 ML VIAL IV SCH ×2 (00:40→08:12)
[2018-06-29] MEDS: METHYLPREDNISOLONE 125 MG INJ IV SCH ×3 (00:43→11:57)
[2018-06-29 05:33] VITALS: BMI 22.7
[2018-06-29] MEDS ORDERED: METOPROLOL TAR 25 MG TAB PO SCH (06:00)
[2018-06-29 06:20] LABS: Bilirubin Total 0.6 mg/dL (0.2-1.0); Potassium 3.6 mmol/L (3.5-5.1); Protein, Total 5.9 g/dL (6.4-8.2)
[2018-06-29 06:26] LABS: Absolute Lymphocytes (CBC) 1.1 K/uL (0.7-4.9); Absolute Monocytes 0.6 K/uL (0.1-1.3); Absolute Neutrophil 10.5 K/uL (1.8-8.0); Hematocrit 30.4 % (39.6-49.0); Lymphocytes % 9.3 % (15.3-44.8); MPV 9.2 fL (7.6-11.3); Monocytes % 4.7 % (3.3-12.3); RBC Red Blood Cell Count 5.16 M/uL (4.33-5.43)
[2018-06-29] MEDS: ENOXAPARIN 40 MG/0.4 ML SQ SCH (08:12)
[2018-06-29] MEDS: FAMOTIDINE 20 MG TAB PO SCH (08:13)
--- NOTE | 2018-06-29 12:29 | P.DS ---
Admission Date: 06/28/18 Discharge Date: 06/29/18 Primary Care Provider: none Disposition: ROUTINE DISCHARGE Discharge Condition: GOOD Reason for Admission: Shortness of breath Consultations: none Procedures: CXR: FINDINGS: Portable technique limits examination quality. Bilateral pulmonary opacities are again noted, appearing stable since the comparative study. The heart is moderately enlarged in size. No displaced fractures. IMPRESSION: Stable chest since 06/24/2018 study. Medical Problem List: Shortness of breath secondary to acute on chronic systolic CHF complicated with poor compliance and follow up Hypertension COPD Brief History of Present Illness: 67-year-old male presented with shortness of breath. Patient with multiple admissions for noncompliance with his CHF. Patient found to be with acute on chronic systolic CHF. Patient admitted for treatment. Hospital Course: Patient presents with acute on chronic systolic CHF complicated with poor compliance of medication and follow up. Patient is homeless. Patient was treated during the course of his stay. His condition improved. At discharge he is without any significant shortness of breath. Room-air saturations within normal range. Case discussed with social human services assistants to help arrange for him to get his medications as he has had multiple admissions due to noncompliance. At discharge patient will continue with Lasix 80 mg 1 pill twice daily. Patient will continue with a 1500 cc per day fluid restriction and low-salt diet. He is to monitor his weight daily. Compliance with medication and follow up address in detail. Patient will continue with beta-vlad and PAWEL-inhibitor therapy for his CHF. Patient may also continue with aspirin 81 mg daily. Patient with underlying hypertension. At discharge he will continue with metoprolol 25 mg 1 pill twice daily and lisinopril 10 mg 1 pill daily. Recommend to maintain blood pressures less 150/80. Further adjustment can be done by his PCP. Patient with underlying COPD. At discharge he will continue with Dulera 1 puff twice daily and Pro air 2 puffs 3 times a day as needed for shortness of breath. Vital Signs/Physical Exam: Temp Pulse Resp BP Pulse Ox 97.1 F 87 20 163/87 H 92 06/29/18 08:00 06/29/18 08:12 06/29/18 08:00 06/29/18 08:12 06/29/18 08:00 General: Alert, In no apparent distress, Oriented x3, Cooperative HEENT: Atraumatic Neck: Supple Respiratory: Clear to auscultation bilaterally, Normal air movement Cardiovascular: Normal pulses, Regular rate/rhythm Gastrointestinal: Normal bowel sounds, Soft and benign, Non-distended, No tenderness, No masses, No rebound, No guarding Musculoskeletal: No erythema, No tenderness, No warmth Integumentary: No tenderness/swelling, No erythema, No warmth, No cyanosis Neurological: Normal speech, Normal strength at 5/5 x4 extr, Normal tone, Normal affect Laboratory Data at Discharge: WBC 12.2 K/uL (4.3-10.9) H D 06/29/18 05:40 Hgb 9.1 g/dL (13.6-17.9) L 06/29/18 05:40 Hct 30.4 % (39.6-49.0) L 06/29/18 05:40 Plt Count 260 K/uL (152-406) 06/29/18 05:40 PT 14.9 SECONDS (9.5-12.5) H 06/27/18 22:25 INR 1.27 06/27/18 22:25 Sodium 142 mmol/L (136-145) 06/29/18 05:40 Potassium 3.6 mmol/L (3.5-5.1) 06/29/18 05:40 BUN 23 mg/dL (7-18) H 06/29/18 05:40 Creatinine 1.19 mg/dL (0.55-1.3) 06/29/18 05:40 Glucose 247 mg/dL (74-106) H 06/29/18 05:40 Magnesium 2.0 mg/dL (1.8-2.4) 06/27/18 22:25 Total Bilirubin 0.6 mg/dL (0.2-1.0) 06/29/18 05:40 AST 19 U/L (15-37) 06/29/18 05:40 ALT 114 U/L (12-78) H 06/29/18 05:40 Alkaline Phosphatase 81 U/L (45-117) 06/29/18 05:40 Troponin I 0.08 ng/mL (0.0-0.045) H 06/29/18 01:04 Lipase 69 U/L (73-393) L 06/27/18 22:25 Home Medications: Albuterol Sulfate [Proair Hfa] 2 puff IH TID PRN #1 hfa.aer.ad 06/29/18 Furosemide [Lasix] 80 mg PO BID #60 tablet 06/29/18 Lisinopril 10 mg PO DAILY #30 tablet 06/29/18 Metoprolol Tartrate [Lopressor*] 25 mg PO BID 6AM 6PM #60 tab 06/29/18 Mometasone/Formoterol [Dulera 100 Mcg/5 Mcg Inhaler] 1 puff IH BID #1 inhaler New Medications: Albuterol Sulfate [Proair Hfa] 2 puff IH TID PRN #1 hfa.aer.ad PRN Reason: Shortness Of Breath Furosemide [Lasix] 80 mg PO BID #60 tablet Lisinopril 10 mg PO DAILY #30 tablet Metoprolol Tartrate [Lopressor*] 25 mg PO BID 6AM 6PM #60 tab Mometasone/Formoterol [Dulera 100 Mcg/5 Mcg Inhaler] 1 puff IH BID #1 inhaler Patient Discharge Instructions: 1. Patient will follow up with a PCP to establish care and continue his medication. 2. Patient presents with acute on chronic systolic CHF complicated with poor compliance of medication and follow up. Patient is homeless. Patient was treated during the course of his stay. His condition improved. At discharge he is without any significant shortness of breath. Room-air saturations within normal range. Case discussed with social human services assistants to help arrange for him to get his medications as he has had multiple admissions due to noncompliance. At discharge patient will continue with Lasix 80 mg 1 pill twice daily. Patient will continue with a 1500 cc per day fluid restriction and low-salt diet. He is to monitor his weight daily. Compliance with medication and follow up address in detail. Patient will continue with beta-vlad and PAWEL-inhibitor therapy for his CHF. Patient may also continue with aspirin 81 mg daily. 3. Patient with underlying hypertension. At discharge he will continue with metoprolol 25 mg 1 pill twice daily and lisinopril 10 mg 1 pill daily. Recommend to maintain blood pressures less 150/80. Further adjustment can be done by his PCP. 4. Patient with underlying COPD. At discharge he will continue with Dulera 1 puff twice daily and Pro air 2 puffs 3 times a day as needed for shortness of breath. Diet: AHA Activity: Fall precautions Time spent managing pt's care (in minutes): 55
[2018-06-29 13:44] VITALS: BP 158/79; TEMP 97.9
== END 2018-06-29 13:45 | disposition home or self-care (01) ==
LOC: ER 21:46 → ERHOLD 06-28 00:40 → 2ND 06-28 00:47
PROVIDERS: ADMIT Hospitalist; ATTEND Hospitalist
DX: I11.0 Hypertensive heart disease with heart failure (principal); I50.23 Acute on chronic systolic (congestive) heart failure; Z91.14 Patient's other noncompliance with medication regimen; J44.9 Chronic obstructive pulmonary disease, unspecified; Z59.0 Homelessness; Z85.46 Personal history of malignant neoplasm of prostate; I25.10 Atherosclerotic heart disease of native coronary artery without angina pectoris; Z95.5 Presence of coronary angioplasty implant and graft
CPT/HCPCS: 96365; 93005; 87040 ×2; 85025 ×2; 80048; 36415 ×2; 83735; 85610; 80076; 80307 ×8; 83605 ×2; 81003 ×2; 84484 ×3; 83690; 80053; 84145; 83880 ×2; 71045; 96375; 96372; 99285; J1940 ×6; J1650; J3475; J2930 ×7; G0378 ×2

== ENCOUNTER 2018-07-03 18:04 | Observation (INO) | payer OTHER ==
--- NOTE | 2018-07-03 19:02 | RAD REPORT ---
EXAM DESCRIPTION: RAD - Chest Single View - 07/03/2018 6:53 pm CLINICAL HISTORY: SOB Chest pain. COMPARISON: Chest Single View dated 06/27/2018; Chest Single View dated 06/24/2018; Chest Single View dated 06/22/2018; Chest Single View dated 06/20/2018 FINDINGS: Portable technique limits examination quality. Moderate bilateral pulmonary opacities are noted, likely representing pulmonary edema or pneumonia. T he heart is moderately enlarged in size. No displaced fractures. IMPRESSION: Moderate CHF versus pneumonia.
[2018-07-03] MEDS ORDERED: LEVALBUTEROL 1.25 MG/3 ML NEB ONE (19:12)
[2018-07-03 19:23] LABS: Albumin 3.2 g/dL (3.4-5.0); Bilirubin Direct 0.2 mg/dL (0-0.2); Bilirubin Total 0.8 mg/dL (0.2-1.0); Magnesium 2.1 mg/dL (1.8-2.4); Potassium 3.9 mmol/L (3.5-5.1); Protein, Total 6.4 g/dL (6.4-8.2); Troponin (Emerg Dept Use Only) 0.08 ng/mL (0.0-0.045)
[2018-07-03] MEDS ORDERED: CEFTRIAXONE/SWI 1gm 1 GM/10 ML SYR ONE (19:23)
[2018-07-03 19:27] LABS: Absolute Lymphocytes (CBC) 2.5 K/uL (0.7-4.9); Absolute Monocytes 1.4 K/uL (0.1-1.3); Absolute Neutrophil 7.9 K/uL (1.8-8.0); Basophils % 0.5 % (0-1.3); Eosinophils % 1.2 % (0-4.4); Lymphocytes % 20.5 % (15.3-44.8); MPV 9.3 fL (7.6-11.3); Monocytes % 11.3 % (3.3-12.3); RBC Red Blood Cell Count 5.84 M/uL (4.33-5.43)
[2018-07-03 19:37] LABS: Protime INR 1.27
--- OUTSIDE RECORDS SUMMARY | 2018-07-03 19:51 | XMS REPORT ---
:1950 [facility] Address [address] [place] [address] Care Team Providers Name Role Phone Unavailable [...]
[2018-07-03 19:54] LABS: Anisocytosis 2+; Blood Morphology Comment NOTED (NOT SEEN); Platelet Estimate ADEQ; Urine White Blood Cell Casts OK
[2018-07-03] MEDS ORDERED: FUROSEMIDE 40 MG/4 ML VIAL ONE (20:13)
[2018-07-03] MEDS ORDERED: NITROGLYCERIN 1 GM PKT TD ONE (20:37)
--- NOTE | 2018-07-03 21:49 | ER ---
Nurse's Notes [facility] Name: Mark Terrell Age: 67 yrs Sex: Male : 1950 Arrival Date: 07/03/2018 Time: 18:07 Bed 7 Private MD: Diagnosis: Acute on chronic combined systolic (congestive) and diastolic (congestive) heart failure Presentation: 07/03 18:07 Presenting complaint: EMS states: SOB x 3 days. Transition of care: patient was not hb received from another setting of care. Onset of symptoms was July 01, 2018. Risk Assessment: Do you want to hurt yourself or someone else? Patient reports no desire to harm self or others. Care prior to arrival: Medication(s) given: Albuterol Neb x 1, Atrovent Neb x 1. 18:07 Method Of Arrival: EMS: [facility] 18:07 Acuity: ARIEL 2 hb 22:57 Initial Sepsis Screen: Does the patient meet any 2 criteria? RR > 20 per min. HR > 90 tl1 bpm. Does the patient have a suspected source of infection? No. Patient's initial sepsis screen is negative. Triage Assessment: 22:58 General: Appears in no apparent distress. Respiratory: Reports shortness of breath. tl1 Respiratory: Onset: The symptoms/episode began/occurred gradually, the patient has mild shortness of breath. Historical: - Allergies: 18:09 Benadryl; hb - Home Meds: 18:09 Metoprolol Tartrate Oral [Active]; hb - PMHx: 18:09 Atrial Fib; Cancer; PROSTATE; CHF; Aneurysm; BRAIN; COPD; Hypertension; Prostate Cancer;hb - PSHx: 18:09 prostatectomy; aneurysm repair; hb - Immunization history:: Adult Immunizations up to date. - Social history:: Smoking status: Patient uses tobacco products, smokes one pack cigarettes per day. - Ebola Screening: : No symptoms or risks identified at this time. Screenin:53 Abuse screen: Denies threats or abuse. Denies injuries from another. Nutritional tl1 screening: No deficits noted. Tuberculosis screening: No symptoms or risk factors identified. Fall Risk IV access (20 points). Assessment: 19:16 General: Appears distressed, Behavior is calm, cooperative, appropriate for age. Pain: tl1 Denies pain. Neuro: Level of Consciousness is awake, alert, obeys commands, Oriented to person, place, time, situation. Cardiovascular: Denies chest pain, Rhythm is sinus tachycardia. Respiratory: Airway is patent Trachea midline Respiratory effort is even, labored, Respiratory pattern is tachypnea Breath sounds are coarse Breath sounds with rhonchi bilaterally. GI: No signs and/or symptoms were reported involving the gastrointestinal system. : No signs and/or symptoms were reported regarding the genitourinary system. EENT: No signs and/or symptoms were reported regarding the EENT system. Derm: No deficits noted. Musculoskeletal: No signs and/or symptoms reported regarding the musculoskeletal system. Vital Signs: 18:07 BP 168 / 110; Pulse 100; Resp 24; Temp 99.5(TE); Pulse Ox 96% on R/A; Pain 0/10; hb 19:15 BP 165 / 113; Pulse 106; Resp 33; Pulse Ox 100% on Nebulizer Mask; Pain 0/10; tl1 21:11 BP 163 / 106; Pulse 102; Resp 22; Pulse Ox 94% on 2 lpm NC; Pain 0/10; tl1 21:34 BP 172 / 116; Pulse 104; Resp 20; Pulse Ox 91% on R/A; Pain 0/10; tl1 21:43 BP 151 / 112; Pulse 101; Resp 22; Pulse Ox 89% on R/A; Pain 0/10; tl1 21:59 BP 161 / 100; Pulse 103; Resp 21; Pulse Ox 95% on 2 lpm NC; Pain 0/10; tl1 22:41 BP 166 / 115; Pulse 98; Resp 20; Temp 98.9; Pulse Ox 96% on 2 lpm NC; Pain 0/10; tl1 ED Course: 18:07 Patient arrived in ED. hb 18:08 Triage completed. hb 18:09 Arm band placed on. EKG completed in triage. Results shown to MD. EKG completed in hb triage. Results shown to MD. 18:35 Jaime Hough PA is PHCP. jmm 18:35 Ryan Vasquez MD is Attending Physician. jmm 18:48 Inserted saline lock: 20 gauge in right forearm, using aseptic technique. Blood hb collected. 18:51 XRAY Chest (1 view) In Process Unspecified. EDMS 19:15 Jasmine Torres, RN is Primary Nurse. tl1 21:48 Whit Fuentes MD is Hospitalizing Provider. [facility] 22:01 Patient has correct armband on for positive identification. Bed in low position. Call tl1 light in reach. Side rails up X 1. Diet: Patient given a heart healthy meal tray. Patient given ice chips. Patient given water. Tolerated well. 22:57 No provider procedures requiring assistance completed. Patient admitted, IV remains in tl1 place. Administered Medications: 19:05 Drug: Xopenex (3) 1.25 mg Route: Inhalation; hb 19:47 Follow up: Response: No adverse reaction; Marked relief of symptoms; Wheezing diminishedtl1 19:14 Drug: Rocephin - (cefTRIAXone) 1 grams {Note: given slow IVP over 5 minutes.} Route: tl1 IVPB; Infused Over: 30 mins; Site: right forearm; 19:20 Follow up: IV Status: Completed infusion tl1 20:04 Drug: Lasix 40 mg Route: IVP; Site: right antecubital; jd3 22:00 Follow up: Response: No adverse reaction; Marked relief of symptoms tl1 20:29 Drug: Nitroglycerin Ointment 2 % 1 inches Route: Transdermal; Site: anterior chest wall;tl1 22:00 Follow up: Response: No adverse reaction; Marked relief of symptoms; Blood pressure is tl1 lowered Output: 21:23 Urine: 700ml (Voided); Total: 700ml. tl1 21:59 Urine: 500ml (Voided); Total: 1200ml. tl1 23:11 Urine: 700ml (Voided); Total: 1900ml. tl1 Outcome: 21:48 Decision to Hospitalize by Provider. [facility] 22:58 Admitted to Tele accompanied by tech, via wheelchair, with oxygen, Report called to tl1 Marisa METZ 22:58 Condition: stable 22:58 Instructed on the need for admit. 23:11 Patient left the ED. 1 Signatures: Dispatcher [employer] EDMS Jaime Hough PA PA jmm Lasagna, Tonya, RN RN tl1 Meri Salcedo RN RN Anatoliy Carter RN RN [id number]
--- NOTE | 2018-07-03 21:49 | EDPHYS ---
Physician Documentation [facility] Name: Mark Terrell Age: 67 yrs Sex: Male : 1950 Arrival Date: 07/03/2018 Time: 18:07 Bed 7 Private MD: ED Physician Ryan Vasquez HPI: 07/03 18:36 This 67 yrs old Male presents to ER via EMS with complaints of Shortness Of jmm Breath. 18:36 The patient has shortness of breath at rest. Onset: The symptoms/episode began/occurred jmm gradually, today. Duration: The symptoms are continuous. The patient has experienced similar episodes in the past, several times. This is a 67 year old male with a history of CHF that presents to the ED with complaints of cough, shortness of breath beginning earlier today consistent with similar episodes. Denies fever, chills, or or chest pain. . Historical: - Allergies: 18:09 Benadryl; hb - Home Meds: 18:09 Metoprolol Tartrate Oral [Active]; hb - PMHx: 18:09 Atrial Fib; Cancer; PROSTATE; CHF; Aneurysm; BRAIN; COPD; Hypertension; Prostate Cancer;hb - PSHx: 18:09 prostatectomy; aneurysm repair; hb - Immunization history:: Adult Immunizations up to date. - Social history:: Smoking status: Patient uses tobacco products, smokes one pack cigarettes per day. - Ebola Screening: : No symptoms or risks identified at this time. ROS: 18:36 Constitutional: Negative for fever, chills, and weight loss, Cardiovascular: Negative jmm for chest pain, palpitations, and edema. 18:36 Respiratory: Positive for cough, shortness of breath. 18:36 All other systems are negative. Exam: 18:36 Constitutional: This is a well developed, well nourished patient who is awake, alert, jmm and in no acute distress. Head/Face: atraumatic. Eyes: EOMI, no conjunctival erythema appreciated ENT: Moist Mucus Membranes Neck: Trachea midline, Supple Chest/axilla: Normal chest wall appearance and motion. Cardiovascular: Regular rate and rhythm. No edema appreciated 18:36 Back: Normal ROM Skin: General appearance color normal MS/ Extremity: Moves all extremities, no obvious deformities appreciated, no edema noted to the lower extremities Neuro: Awake and alert, normal gait Psych: Behavior is normal, Mood is normal, Patient is cooperative and pleasant 18:36 Respiratory: the patient does not display signs of respiratory distress, Respirations: normal, Breath sounds: wheezing: that is moderate, is heard diffusely. Vital Signs: 18:07 BP 168 / 110; Pulse 100; Resp 24; Temp 99.5(TE); Pulse Ox 96% on R/A; Pain 0/10; hb 19:15 BP 165 / 113; Pulse 106; Resp 33; Pulse Ox 100% on Nebulizer Mask; Pain 0/10; tl1 21:11 BP 163 / 106; Pulse 102; Resp 22; Pulse Ox 94% on 2 lpm NC; Pain 0/10; tl1 21:34 BP 172 / 116; Pulse 104; Resp 20; Pulse Ox 91% on R/A; Pain 0/10; tl1 21:43 BP 151 / 112; Pulse 101; Resp 22; Pulse Ox 89% on R/A; Pain 0/10; tl1 21:59 BP 161 / 100; Pulse 103; Resp 21; Pulse Ox 95% on 2 lpm NC; Pain 0/10; tl1 22:41 BP 166 / 115; Pulse 98; Resp 20; Temp 98.9; Pulse Ox 96% on 2 lpm NC; Pain 0/10; tl1 MDM: 18:55 Patient medically screened. [facility] 19:56 Data reviewed: vital signs, nurses notes. Counseling: I had a detailed discussion with [facility] the patient and/or guardian regarding: the historical points, exam findings, and any diagnostic results supporting the discharge/admit diagnosis, lab results, radiology results, the need for further work-up and treatment in the hospital. 21:46 ED course: I discussed the patient with Dr. Fuentes whom accepted admission. . [facility] 07/03 18:36 Order name: Basic Metabolic Panel; Complete Time: 19:47 [facility] 07/03 18:36 Order name: CBC with Diff; Complete Time: 19:56 [facility] 07/03 18:36 Order name: LFT's; Complete Time: 19:47 [facility] 07/03 18:36 Order name: Magnesium; Complete Time: 19:47 [facility] 07/03 18:36 Order name: NT PRO-BNP; Complete Time: 19:47 [facility] 07/03 18:36 Order name: PT-INR; Complete Time: 19:47 [facility] 07/03 18:36 Order name: Troponin (emerg Dept Use Only); Complete Time: 19:47 [facility] 07/03 18:36 Order name: XRAY Chest (1 view); Complete Time: 19:05 [facility] 07/03 19:06 Order name: Blood Culture Adult (2) [facility] 07/03 19:06 Order name: Procalcitonin; Complete Time: 21:03 [facility] 07/03 19:29 Order name: CBC Smear Scan; Complete Time: 19:56 [facility] 07/03 19:51 Order name: Flu; Complete Time: 12:13 [facility] 07/03 19:56 Order name: Lactate; Complete Time: 21:03 [facility] 07/03 18:36 Order name: EKG; Complete Time: 18:38 [facility] 07/03 18:36 Order name: Cardiac monitoring; Complete Time: 19:06 [facility] 07/03 18:36 Order name: EKG - Nurse/Tech; Complete Time: 19:06 [facility] 07/03 18:36 Order name: IV Saline Lock; Complete Time: 19:06 [facility] 07/03 18:36 Order name: Labs collected and sent; Complete Time: 19:06 [facility] 07/03 18:36 Order name: O2 Per Protocol; Complete Time: 19:06 [facility] 07/03 18:36 Order name: O2 Sat Monitoring; Complete Time: 19:06 [facility] Administered Medications: 19:05 Drug: Xopenex (3) 1.25 mg Route: Inhalation; hb 19:47 Follow up: Response: No adverse reaction; Marked relief of symptoms; Wheezing diminishedtl1 19:14 Drug: Rocephin - (cefTRIAXone) 1 grams {Note: given slow IVP over 5 minutes.} Route: tl1 IVPB; Infused Over: 30 mins; Site: right forearm; 19:20 Follow up: IV Status: Completed infusion tl1 20:04 Drug: Lasix 40 mg Route: IVP; Site: right antecubital; jd3 22:00 Follow up: Response: No adverse reaction; Marked relief of symptoms tl1 20:29 Drug: Nitroglycerin Ointment 2 % 1 inches Route: Transdermal; Site: anterior chest wall;tl1 22:00 Follow up: Response: No adverse reaction; Marked relief of symptoms; Blood pressure is tl1 lowered Disposition: 07/04 22:56 Co-signature as Attending Physician, Ryan Vasquez MD. rn Disposition: 07/03/18 21:48 Hospitalization ordered by Whit Fuentes for Inpatient Admission. Preliminary diagnosis is Acute on chronic combined systolic (congestive) and diastolic (congestive) heart failure. - Bed requested for Telemetry/MedSurg (Inpatient). - Status is Inpatient Admission. tl1 - Condition is Stable. - Problem is an acute exacerbation. - Symptoms are unchanged. UTI on Admission? No Signatures: Dispatcher [employer] EDMS Jaime Hough, ROSANGELA PA Ryan Blake MD MD rn Lasagna, Tonya RN RN tl1 Adeline Metzger RN RN Meri Salcedo RN RN Anatoliy Carter RN RN jd3 Corrections: (The following items were deleted from the chart) 07/03 22:32 21:48 Hospitalization Ordered by Whit Fuentes MD for Inpatient Admission. Preliminary cg diagnosis is Acute on chronic combined systolic (congestive) and diastolic (congestive) heart failure. Bed requested for Telemetry/MedSurg (Inpatient). Status is Inpatient Admission. Condition is Stable. Problem is an acute exacerbation. Symptoms are unchanged. UTI on Admission? No. [facility] 23:11 22:32 07/03/2018 21:48 Hospitalization Ordered by Whit Fuentes MD for Inpatient tl1 Admission. Preliminary diagnosis is Acute on chronic combined systolic (congestive) and diastolic (congestive) heart failure. Bed requested for Telemetry/MedSurg (Inpatient). Status is Inpatient Admission. Condition is Stable. Problem is an acute exacerbation. Symptoms are unchanged. UTI on Admission? No. cg
--- NOTE | 2018-07-03 22:25 | P.HP ---
Certification for Inpatient Patient admitted to: Observation With expected LOS: <2 Midnights Practitioner: I am a practitioner with admitting privileges, knowledge of patient current condition, hospital course, and medical plan of care. Services: Services provided to patient in accordance with Admission requirements found in Title 42 Section 412.3 of the Code of Federal Regulations Patient History Date of Service: 07/03/18 Reason for admission: pulmonary edema History of Present Illness: Mr Terrell is a 67 years old male with history DM II, HTN, COPD, chronic systolic CHF, medication uncompliance, recurrent admission to the hospital due to CHF exacerbation, came to ED complaining of progressive SOB, starting this morning. He denied fever or chills. He has productive cough with clear secretions which is chronic for him, without changes lately. Lab work shows leukocytosis 12K, no fever, normal lactate and procalcitonin. Trop I is elevated with context of CHF exacerbation. CXR consistent with pulmonary edema. Allergies poison chandana extract Allergy (Intermediate, Verified 06/28/18 01:19) Hives diphenhydramine HCl [From Benadryl] Adverse Reaction (Intermediate, Verified 01:19) Hives Home medications list reviewed: Yes Home Medications: Albuterol Sulfate [Proair Hfa] 2 puff IH TID PRN #1 hfa.aer.ad 06/29/18 Furosemide [Lasix] 80 mg PO BID #60 tablet 06/29/18 Lisinopril 10 mg PO DAILY #30 tablet 06/29/18 Metoprolol Tartrate [Lopressor*] 25 mg PO BID 6AM 6PM #60 tab 06/29/18 Mometasone/Formoterol [Dulera 100 Mcg/5 Mcg Inhaler] 1 puff IH BID #1 inhaler - Past Medical/Surgical History Has patient received pneumonia vaccine in the past: Yes Diabetic: No -: History of prostate cancer -: Hypertension -: History of brain aneurysm requiring surgery -: CHF, systolic dysfunction -: COPD -: Tobacco abuse -: Hyper low -: Coronary disease, stents x3 to LAD/RCA(Feb 2016) -: Anemia of chronic disease -: GERD -: anemia -: hyperlipidemia -: Prostate surgery -: Brain aneurysm surgery -: Toe surgery R. great toe/childhood -: Heart catheterization-3stents LAD/RCA Psychosocial/ Personal History: Patient is homeless. He is single. He has no children. 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 - Family History Father -: Cancer Notes: brain cancer Mother -: Cancer Notes: pancreatic cancer Brother -: Cancer Notes: lung cancer - Social History Smoking Status: Current every day smoker Counseled patient to stop smoking for: less than 10 minutes Alcohol use: No CD- Drugs: No Caffeine use: Yes Place of Residence: Homeless Review of Systems 10-point ROS is otherwise unremarkable Physical Examination - Physical Exam General: Alert, In no apparent distress HEENT: Atraumatic, PERRLA, Mucous membr. moist/pink, EOMI, Sclerae nonicteric Neck: Supple, 2+ carotid pulse no bruit, No LAD, Without JVD or thyroid abnormality Respiratory: Normal air movement, Crackles/rales (bibasilar rales) Cardiovascular: Regular rate/rhythm, Normal S1 S2 Gastrointestinal: Normal bowel sounds, No tenderness Musculoskeletal: No tenderness Integumentary: No rashes Neurological: Normal speech, Normal strength at 5/5 x4 extr, Normal tone, Normal affect Lymphatics: No axilla or inguinal lymphadenopathy - Studies Laboratory Data (last 24 hrs) 07/03/18 18:55: PT 14.8 H, INR 1.27 07/03/18 18:55: WBC 12.0 H, Hgb 10.0 L, Hct 35.0 L D, Plt Count 273 07/03/18 18:55: Sodium 142, Potassium 3.9, BUN 22 H, Creatinine 1.27, Glucose 118 H, Magnesium 2.1, Total Bilirubin 0.8, AST 24, ALT 53, Alkaline Phosphatase 85 Assessment and Plan - Problems (Diagnosis) (1) Elevated troponin Onset Date: 03/31/17 Current Visit: No Status: Acute (2) Pulmonary edema Current Visit: No Status: Acute Qualifiers: Chronicity: acute Qualified Code(s): J81.0 - Acute pulmonary edema (3) Coronary artery disease Onset Date: 01/26/18 Current Visit: No Status: Chronic Qualifiers: Coronary Disease-Associated Artery/Lesion type: [place] artery Circle vs. transplanted heart: [place] heart Associated angina: without angina Qualified Code(s): I25.10 - Atherosclerotic heart disease of [place] coronary artery without angina pectoris (4) Nicotine dependence Onset Date: 04/03/17 Current Visit: No Status: Chronic Qualifiers: Nicotine product type: cigarettes Substance use status: uncomplicated Qualified Code(s): F17.210 - Nicotine dependence, cigarettes, uncomplicated (5) Type 2 diabetes mellitus Onset Date: 12/10/16 Current Visit: No Status: Chronic Qualifiers: Diabetes mellitus long-term insulin use: without dynamometer tester engine use Diabetes mellitus complication status: with unspecified complications Qualified Code(s) : E11.8 - Type 2 diabetes mellitus with unspecified complications (6) Acute on chronic combined systolic and diastolic CHF (congestive heart failure) Onset Date: 03/31/17 Current Visit: No Status: Resolved - Plan Will admit the patient under observation due to pulmonary edema, secondary to medication non-compliance. Will continue with IV lasix, nitro paste, fluid restriction, and strict body fluid balance monitor. - Advance Directives Does patient have a Living Will: No Does patient have a Durable POA for Healthcare: No - Code Status/Comfort Care Code Status Assessed: Yes Code Status: Full Code
[2018-07-03 23:54] VITALS: BMI 23.4
[2018-07-03] MEDS ORDERED: D50W 25 GM/50 ML SYRINGE IV PRN (23:54)
[2018-07-03] MEDS ORDERED: ONDANSETRON 4 MG/2 ML VIAL IV PRN (23:54)
[2018-07-03] MEDS ORDERED: ALBUTEROL 2.5 MG/3 ML NEB SOL NEB PRN (23:54)
[2018-07-03] MEDS ORDERED: GLUCAGON 1 MG/VIAL IM PRN (23:54)
[2018-07-03] MEDS ORDERED: IPRATROPIUM BROM 0.5MG/2.5ML NEB PRN (23:54)
[2018-07-04] MEDS ORDERED: ACETAMINOPHEN 500 MG TAB PO PRN (00:42)
[2018-07-04] MEDS ORDERED: HYDRALAZINE HCL 20 MG/ML VIAL IV PRN (04:43)
[2018-07-04 05:19] LABS: Absolute Lymphocytes (CBC) 2.4 K/uL (0.7-4.9); Absolute Monocytes 1.5 K/uL (0.1-1.3); Absolute Neutrophil 7.4 K/uL (1.8-8.0); Basophils % 0.2 % (0-1.3); Eosinophils % 1.1 % (0-4.4); Hematocrit 33.8 % (39.6-49.0); Lymphocytes % 21.1 % (15.3-44.8); MPV 9.2 fL (7.6-11.3); Monocytes % 12.9 % (3.3-12.3); RBC Red Blood Cell Count 5.64 M/uL (4.33-5.43)
[2018-07-04 05:29] LABS: Potassium 3.4 mmol/L (3.5-5.1)
[2018-07-04] MEDS ORDERED: POTASSIUM 25 MEQ EFFERV TAB PO ONE (06:01)
--- NOTE | 2018-07-04 06:47 | EKG ---
Test Date: 2018-07-03 Test Time: 19:09:11 Leather Belt Maker: SHILPI MEASUREMENT RESULTS: Intervals: Rate: 103 [place]: 138 QRSD: 116 QT: 384 QTc: 503 [place]: P: 76 [place]: 138 QRS: 86 T: 46 INTERPRETIVE STATEMENTS: Sinus tachycardia Biatrial enlargement Abnormal ECG Compared to ECG 06/27/2018 22:50:47 Atrial abnormality now present Prolonged QT interval no longer present Electronically Signed On 07-04-18 06:47:00 CDT by Jitendra Willams
[2018-07-04 07:52] LABS: Potassium 4.1 mmol/L (3.5-5.1)
[2018-07-04 08:54] VITALS: O2SAT 96
[2018-07-04] MEDS ORDERED: FUROSEMIDE 40 MG TABLET PO SCH (09:00)
[2018-07-04] MEDS ORDERED: DULERA 100/5 (MOMETASONE/FORMOTEROL) INHALER IH SCH (09:00)
[2018-07-04] MEDS ORDERED: ENOXAPARIN 40 MG/0.4 ML SQ SCH (09:00)
[2018-07-04] MEDS ORDERED: LISINOPRIL 10 MG TAB PO SCH (09:00)
--- NOTE | 2018-07-04 09:02 | RAD REPORT ---
EXAM DESCRIPTION: Neo Pa And Lat (2 Views)07/04/2018 7:54 am CLINICAL HISTORY: Cough COMPARISON: July 03, 2018 FINDINGS: Mild improvement in the bilateral pulmonary opacities. Heart remains enlarged. Subacute left rib fractures IMPRESSION: Mild improvement in mild to moderate pulmonary edema
[2018-07-04 09:09] VITALS: BP 157/92
[2018-07-04] MEDS: INSULIN -REGULAR HUMAN 50 UNIT/0.5 ML ML SQ SCH ×2 (09:14→11:30)
[2018-07-04 09:39] VITALS: TEMP 98
--- NOTE | 2018-07-04 09:45 | P.DS ---
Admission Date: 07/03/18 Discharge Date: 07/04/18 Primary Care Provider: homeless Disposition: ROUTINE DISCHARGE Discharge Condition: GOOD Reason for Admission: pulmonary edema Consultations: none Procedures: Follow up CXR: COMPARISON: July 03, 2018 FINDINGS: Mild improvement in the bilateral pulmonary opacities. Heart remains enlarged. Subacute left rib fractures IMPRESSION: Mild improvement in mild to moderate pulmonary edema Medical Problem List: Shortness of breath secondary to acute on chronic recurrent systolic CHF with poor compliance of medication and follow up Hypertension COPD Chronic Renal disease, stage 3 Anemia of chronic disease Brief History of Present Illness: 67-year-old male presented to the emergency room with shortness of breath. Patient with history of systolic CHF, hypertension, chronic renal disease, and COPD. Patient with recurrent admissions for acute on chronic systolic CHF due to poor compliance with medication and follow up. Patient was evaluated the emergency room. Patient admitted for acute on chronic CHF. Hospital Course: Patient presented with shortness of breast secondary to acute on chronic recurrent systolic CHF complicated with poor compliance of medication and follow up. Patient was admitted for treatment. Patient improved. At discharge patient with room-air saturations within normal range. No significant edema to the lower extremities noted. Patient is homeless. On the last admission, his medication was paid for. The patient admits he did not get his medication. Will confirm with pharmacy that way if medication has been paid for, he may be able to get it today. If transportation is an issue, will check to see if medication can be obtained for him prior to discharge. At discharge patient without any significant shortness of breath. Patient back to baseline. Compliance with medication and follow up addressed in detail. At discharge patient will continue with Lasix 40 mg 1 pill twice daily. Recommend to continue with a 1500 cc per day fluid restriction and low-salt diet. Patient is to monitor his weight daily. If his weight increases by more than 5 lb he is to contact his PCP. Recommend to establish care with a PCP in the area to continue care. Compliance education will be provided. Patient with hypertension. At discharge he will continue with metoprolol 25 mg 1 pill twice daily and lisinopril 10 mg daily. Recommend to maintain blood pressures less 150/80. Further adjustment can be done by his PCP. Compliance with medication again addressed in detail. Patient with underlying COPD. Patient will be given Dulera 1 puff twice daily. Patient may continue with albuterol 2 puffs 3 times a day as needed for shortness of breath. Patient with chronic renal disease, stage III. This has remained stable. Recommend future medications to be renally dosed. Recommend to recheck lab-BMP within 1 month to monitor his progress. Patient with anemia of chronic disease. Patient may continue with multi vitamin at discharge. Vital Signs/Physical Exam: Temp Pulse Resp BP Pulse Ox 97.5 F 90 18 157/92 H 95 07/04/18 04:00 07/04/18 09:00 07/04/18 04:00 07/04/18 09:00 07/04/18 04:00 General: Alert, In no apparent distress, Oriented x3, Cooperative HEENT: Atraumatic Neck: Supple Respiratory: Clear to auscultation bilaterally, Normal air movement Cardiovascular: Normal pulses, Regular rate/rhythm Gastrointestinal: Normal bowel sounds, Soft and benign, Non-distended, No masses , No rebound, No guarding Musculoskeletal: No erythema, No tenderness, No warmth Integumentary: No tenderness/swelling, No erythema, No warmth, No cyanosis Neurological: Normal speech, Normal strength at 5/5 x4 extr, Normal tone, Normal affect Laboratory Data at Discharge: WBC 11.5 K/uL (4.3-10.9) H 07/04/18 04:38 Hgb 9.9 g/dL (13.6-17.9) L 07/04/18 04:38 Hct 33.8 % (39.6-49.0) L 07/04/18 04:38 Plt Count 295 K/uL (152-406) 07/04/18 04:38 PT 14.8 SECONDS (9.5-12.5) H 07/03/18 18:55 INR 1.27 07/03/18 18:55 Sodium 144 mmol/L (136-145) 07/04/18 07:15 Potassium 4.1 mmol/L (3.5-5.1) 07/04/18 07:15 BUN 27 mg/dL (7-18) H 07/04/18 07:15 Creatinine 1.35 mg/dL (0.55-1.3) H 07/04/18 07:15 Glucose 157 mg/dL (74-106) H 07/04/18 07:15 Magnesium 2.1 mg/dL (1.8-2.4) 07/03/18 18:55 Total Bilirubin 0.8 mg/dL (0.2-1.0) 07/03/18 18:55 AST 24 U/L (15-37) 07/03/18 18:55 ALT 53 U/L (12-78) 07/03/18 18:55 Alkaline Phosphatase 85 U/L (45-117) 07/03/18 18:55 Home Medications: Albuterol Sulfate [Proair Hfa] 2 puff IH TID PRN #1 hfa.aer.ad 07/04/18 Furosemide [Lasix*] 40 mg PO BIDL #60 tab 07/04/18 Lisinopril [Prinivil*] 10 mg PO DAILY #30 tab 07/04/18 Metoprolol Tartrate [Lopressor*] 25 mg PO BID 6AM 6PM #60 tab 07/04/18 Mometasone/Formoterol [Dulera 100 Mcg/5 Mcg Inhaler] 2 puff IH BID #1 inhaler New Medications: Albuterol Sulfate [Proair Hfa] 2 puff IH TID PRN #1 hfa.aer.ad PRN Reason: Shortness Of Breath Furosemide [Lasix*] 40 mg PO BIDL #60 tab Lisinopril [Prinivil*] 10 mg PO DAILY #30 tab Metoprolol Tartrate [Lopressor*] 25 mg PO BID 6AM 6PM #60 tab Mometasone/Formoterol [Dulera 100 Mcg/5 Mcg Inhaler] 2 puff IH BID #1 inhaler Patient Discharge Instructions: 1. Patient will need to establish care with a PCP to follow up this hospitalization. 2. Patient presented with shortness of breast secondary to acute on chronic recurrent systolic CHF complicated with poor compliance of medication and follow up. Patient was admitted for treatment. Patient improved. At discharge patient with room-air saturations within normal range. No significant edema to the lower extremities noted. Patient is homeless. On the last admission, his medication was paid for. The patient admits he did not get his medication. Will confirm with pharmacy that way if medication has been paid for, he may be able to get it today. If transportation is an issue, will check to see if medication can be obtained for him prior to discharge. At discharge patient without any significant shortness of breath. Patient back to baseline. Compliance with medication and follow up addressed in detail. At discharge patient will continue with Lasix 40 mg 1 pill twice daily. Recommend to continue with a 1500 cc per day fluid restriction and low-salt diet. Patient is to monitor his weight daily. If his weight increases by more than 5 lb he is to contact his PCP. Recommend to establish care with a PCP in the area to continue care. Compliance education will be provided. 3. Patient with hypertension. At discharge he will continue with metoprolol 25 mg 1 pill twice daily and lisinopril 10 mg daily. Recommend to maintain blood pressures less 150/80. Further adjustment can be done by his PCP. Compliance with medication again addressed in detail. 4. Patient with underlying COPD. Patient will be given Dulera 1 puff twice daily. Patient may continue with albuterol 2 puffs 3 times a day as needed for shortness of breath. 5. Patient with chronic renal disease, stage III. This has remained stable. Recommend future medications to be renally dosed. Recommend to recheck lab-BMP within 1 month to monitor his progress. 6. Patient with anemia of chronic disease. Patient may continue with multi vitamin at discharge. Diet: AHA Activity: Fall precautions Time spent managing pt's care (in minutes): 55
[2018-07-04] MEDS ORDERED: FUROSEMIDE 40 MG/4 ML VIAL IV ONE (12:30)
[2018-07-04] MEDS ORDERED: METOPROLOL TAR 25 MG TAB PO SCH (18:00)
== END 2018-07-04 12:57 | disposition home or self-care (01) ==
LOC: ER 18:04 → ERHOLD 22:25 → 2ND 22:55
PROVIDERS: ADMIT Internal Medicine; ATTEND Internal Medicine
DX: I13.0 Hypertensive heart and chronic kidney disease with heart failure and stage 1 through stage 4 chronic kidney disease, or unspecified chronic kidney disease (principal); I50.23 Acute on chronic systolic (congestive) heart failure; N18.3 Chronic kidney disease, stage 3 (moderate); Z91.14 Patient's other noncompliance with medication regimen; Z59.0 Homelessness; I25.10 Atherosclerotic heart disease of native coronary artery without angina pectoris; Z95.5 Presence of coronary angioplasty implant and graft; F17.210 Nicotine dependence, cigarettes, uncomplicated; J44.9 Chronic obstructive pulmonary disease, unspecified; D64.9 Anemia, unspecified
CPT/HCPCS: 93005; 87040 ×2; 85025 ×2; 80048 ×3; 36415; 83735; 85610; 82962; 80076; 83605; 84484; 84145; 83880; 87804 ×2; 71045; 71046; 94760 ×2; 99285; J0360; J1940 ×2; J1650 ×2; J0696; G0378 ×2; J7606

== ENCOUNTER 2018-07-04 21:40 | Emergency (ER) | payer OTHER ==
--- OUTSIDE RECORDS SUMMARY | 2018-07-04 21:41 | XMS REPORT ---
:1950 [facility] Address [address] [place] [address] Care Team Providers Name Role Phone Unavailable [...]
[2018-07-04] MEDS ORDERED: METHYLPREDNISOLONE 125 MG INJ ONE (22:11)
[2018-07-04] MEDS ORDERED: FUROSEMIDE 40 MG/4 ML VIAL ONE (22:11)
[2018-07-04] MEDS ORDERED: LEVALBUTEROL 1.25 MG/3 ML NEB ONE (22:11)
--- NOTE | 2018-07-04 22:30 | RAD REPORT ---
EXAM DESCRIPTION: Neo Single View07/04/2018 10:05 pm CLINICAL HISTORY: cough COMPARISON: July 04 FINDINGS: The bilateral pulmonary opacities have partially resolved. The heart remains enlarged IMPRESSION: Improvement in mild CHF
--- NOTE | 2018-07-04 23:41 | ER ---
Nurse's Notes [facility] Name: Mark Terrell Age: 67 yrs Sex: Male : 1950 Arrival Date: 07/04/2018 Time: 21:41 Bed 24 Private MD: Diagnosis: Unspecified combined systolic (congestive) and diastolic (congestive) heart failure;Pulmonary edema Presentation: 07/04 21:43 Presenting complaint: Patient states: I was kicked out last night and I just rode my ed1 bike here from [place] and I can't breathe. Transition of care: patient was not received from another setting of care. Onset of symptoms was July 04, 2018. Risk Assessment: Do you want to hurt yourself or someone else? Patient reports no desire to harm self or others. Initial Sepsis Screen: Does the patient meet any 2 criteria? No. Patient's initial sepsis screen is negative. Does the patient have a suspected source of infection? No. Patient's initial sepsis screen is negative. Care prior to arrival: None. 21:43 Method Of Arrival: Ambulatory ed1 21:43 Acuity: ARIEL 2 ed1 Triage Assessment: 21:44 General: Appears distressed, Behavior is calm, cooperative. Pain: Complains of pain in ed1 head Pain currently is 7 out of 10 on a pain scale. Respiratory: Reports shortness of breath at rest Onset: The symptoms/episode began/occurred just prior to arrival, the patient has moderate shortness of breath. Historical: - Allergies: 21:44 Benadryl; ed1 - PMHx: 21:44 Aneurysm; BRAIN; Atrial Fib; Cancer; PROSTATE; CHF; COPD; Hypertension; Prostate Cancer;ed1 - PSHx: 21:44 prostatectomy; aneurysm repair; ed1 - Immunization history:: Adult Immunizations unknown. - Social history:: Smoking status: Patient uses tobacco products, smokes one-half pack cigarettes per day. - Ebola Screening: : Patient negative for fever greater than or equal to 101.5 degrees Fahrenheit, and additional compatible Ebola Virus Disease symptoms Patient denies exposure to infectious person Patient denies travel to an Ebola-affected area in the 21 days before illness onset No symptoms or risks identified at this time. - Family history:: not pertinent. - Hospitalizations: : No recent hospitalization is reported. Screenin:30 Abuse screen: Denies threats or abuse. Denies injuries from another. Nutritional rv screening: No deficits noted. Tuberculosis screening: No symptoms or risk factors identified. Fall Risk None identified. Assessment: 23:27 General: Appears in no apparent distress. uncomfortable, Behavior is calm, cooperative. rv Pain: Denies pain. Neuro: Level of Consciousness is awake, alert, obeys commands, Oriented to person, place, time, situation. Cardiovascular: Rhythm is regular. Respiratory: Airway is patent Respiratory effort is labored. GI: No signs and/or symptoms were reported involving the gastrointestinal system. : No signs and/or symptoms were reported regarding the genitourinary system. EENT: No signs and/or symptoms were reported regarding the EENT system. Derm: Skin is intact. Musculoskeletal: No signs and/or symptoms reported regarding the musculoskeletal system. 23:30 Respiratory: Breath sounds with wheezes. rv Vital Signs: 21:44 BP 172 / 102; Pulse 103; Resp 24; Temp 98.5; Pulse Ox 96% on R/A; Weight 75.3 kg; ed1 Height 5 ft. 11 in. (180.34 cm); Pain 7/10; 23:29 BP 164 / 108; Pulse 101; Resp 19; Pulse Ox 97% ; rv 23:59 BP 145 / 96 LA Supine; Pulse 99; Resp 21 S; Pulse Ox 96% on R/A; rv 21:44 Body Mass Index 23.15 (75.30 kg, 180.34 cm) ed1 ED Course: 21:41 Patient arrived in ED. as 21:43 Triage completed. ed1 21:45 Arm band placed on right wrist. ed1 21:49 Andrew Souza, LASHAY is Primary Nurse. rv 21:49 Ryan Vasquez MD is Attending Physician. rn 22:05 XRAY Chest (1 view) In Process Unspecified. EDMS 23:00 Inserted saline lock: 20 gauge in left forearm, using aseptic technique. rv 23:30 Patient has correct armband on for positive identification. Bed in low position. Call rv light in reach. Side rails up X 1. Adult w/ patient. Pulse ox on. NIBP on. 07/05 00:00 No provider procedures requiring assistance completed. rv 00:03 IV discontinued, intact, bleeding controlled, No redness/swelling at site. Pressure rv dressing applied. Administered Medications: 07/04 22:07 Drug: SOLU-Medrol 125 mg Route: IVP; Site: left forearm; rv 07/05 00:03 Follow up: Response: No adverse reaction; Marked relief of symptoms rv 07/04 22:07 Drug: Xopenex (3) 1.25 mg Route: Inhalation; rv 07/05 00:02 Follow up: Response: No adverse reaction; Marked relief of symptoms rv 07/04 22:07 Drug: Lasix 40 mg Route: IVP; Site: left forearm; rv 07/05 00:02 Follow up: Response: Marked relief of symptoms rv Outcome: 07/04 23:40 Discharge ordered by . rn 07/05 00:01 Discharged to home ambulatory. rv Condition: good Discharge instructions given to patient, Instructed on discharge instructions, follow up and referral plans. Demonstrated understanding of instructions, follow-up care. 00:03 Patient left the ED. rv Signatures: Dispatcher [employer] EDShaylee Copeland Roman, MD MD rn Riggs, Erika, RN RN ed1 Andrew Souza, RN RN rv
--- NOTE | 2018-07-04 23:41 | EDPHYS ---
Physician Documentation [facility] Name: Mark Terrell Age: 67 yrs Sex: Male : 1950 Arrival Date: 07/04/2018 Time: 21:41 Bed 24 Private MD: ED Physician Ryan Vasquez HPI: 07/04 21:59 This 67 yrs old Male presents to ER via Ambulatory with complaints of rn Breathing Difficulty. 21:59 The patient has shortness of breath during heavy activity. Onset: The symptoms/episode rn began/occurred today. Duration: The symptoms are continuous. The patient's shortness of breath is aggravated by exertion. Severity of symptoms: At their worst the symptoms were moderate in the emergency department the symptoms have improved. The patient has experienced similar episodes in the past, chronically. Just discharged from hospital today, states rode his bike and got short of breath, no new symptoms, no fever. Didn't fill any of his medication from discharge. . Historical: - Allergies: 21:44 Benadryl; ed1 - PMHx: 21:44 Aneurysm; BRAIN; Atrial Fib; Cancer; PROSTATE; CHF; COPD; Hypertension; Prostate Cancer;ed1 - PSHx: 21:44 prostatectomy; aneurysm repair; ed1 - Immunization history:: Adult Immunizations unknown. - Social history:: Smoking status: Patient uses tobacco products, smokes one-half pack cigarettes per day. - Ebola Screening: : Patient negative for fever greater than or equal to 101.5 degrees Fahrenheit, and additional compatible Ebola Virus Disease symptoms Patient denies exposure to infectious person Patient denies travel to an Ebola-affected area in the 21 days before illness onset No symptoms or risks identified at this time. - Family history:: not pertinent. - Hospitalizations: : No recent hospitalization is reported. ROS: 21:59 Constitutional: Negative for fever, chills, and weight loss, Eyes: Negative for injury, rn pain, redness, and discharge, Neck: Negative for injury, pain, and swelling, Cardiovascular: Negative for chest pain, palpitations Respiratory: Negative for pleuritic chest pain Abdomen/GI: Negative for abdominal pain, nausea, vomiting, diarrhea, and constipation, MS/Extremity: Negative for injury and deformity, Skin: Negative for injury, rash, and discoloration, Neuro: Negative for headache, weakness, numbness, tingling, and seizure. Exam: 21:59 Constitutional: This is a well developed, well nourished patient who is awake, alert, rn and in no acute distress. Watching tv Head/Face: Normocephalic, atraumatic. Eyes: Periorbital areas with no swelling, redness, or edema. ENT: MMM, no stridor Cardiovascular: Tachycardic, no murmur Respiratory: + tachypnea with faint exp wheezing, no retractions Abdomen/GI: soft, non-tender MS/ Extremity: Pulses equal, no cyanosis. Neurovascular intact. Full, normal range of motion. Equal circumference. 2+ pitting edema bilateral Neuro: Awake and alert, GCS 15, oriented to person, place, time, and situation. Cranial nerves II-XII grossly intact. Motor strength 5/5 in all extremities. Sensory grossly intact. Vital Signs: 21:44 BP 172 / 102; Pulse 103; Resp 24; Temp 98.5; Pulse Ox 96% on R/A; Weight 75.3 kg; ed1 Height 5 ft. 11 in. (180.34 cm); Pain 7/10; 23:29 BP 164 / 108; Pulse 101; Resp 19; Pulse Ox 97% ; rv 23:59 BP 145 / 96 LA Supine; Pulse 99; Resp 21 S; Pulse Ox 96% on R/A; rv 21:44 Body Mass Index 23.15 (75.30 kg, 180.34 cm) ed1 MDM: 21:49 Patient medically screened. rn 23:39 Differential diagnosis: CHF exacerbation. Data reviewed: vital signs, nurses notes, rn radiologic studies, and as a result, I will discharge patient. Counseling: I had a detailed discussion with the patient and/or guardian regarding: the historical points, exam findings, and any diagnostic results supporting the discharge/admit diagnosis, radiology results, the need for outpatient follow up, to return to the emergency department if symptoms worsen or persist or if there are any questions or concerns that arise at home. Response to treatment: the patient's symptoms have markedly improved after treatment, and as a result, I will discharge patient. ED course: Laying comfortably, improved CXR, given lasix with improvement, and ate dinner.. 07/04 21:51 Order name: XRAY Chest (1 view); Complete Time: 22:36 rn 07/04 21:51 Order name: IV Start; Complete Time: 22:07 rn Administered Medications: 22: Drug: SOLU-Medrol 125 mg Route: IVP; Site: left forearm; rv 07/05 00:03 Follow up: Response: No adverse reaction; Marked relief of symptoms rv 07/04 22:07 Drug: Xopenex (3) 1.25 mg Route: Inhalation; rv 07/05 00:02 Follow up: Response: No adverse reaction; Marked relief of symptoms rv 07/04 22:07 Drug: Lasix 40 mg Route: IVP; Site: left forearm; rv 07/05 00:02 Follow up: Response: Marked relief of symptoms rv Disposition: 07/04/18 23:40 Discharged to Home. Impression: Unspecified combined systolic (congestive) and diastolic (congestive) heart failure, Pulmonary edema. - Condition is Stable. - Discharge Instructions: Heart Failure, Pulmonary Edema. - Medication Reconciliation Form, Thank You Letter, Antibiotic Education, Prescription Opioid Use form. - Follow up: Private Physician; When: As needed; Reason: Recheck today's complaints, Re-evaluation by your physician. - Problem is an acute exacerbation. - Symptoms have improved. Signatures: Dispatcher [employer] EDMS Ryan Vasquez MD MD rn Riggs, Erika, RN RN ed1 Andrew Souza RN RN rv Corrections: (The following items were deleted from the chart) 00:03 07/04 23:40 07/04/2018 23:40 Discharged to Home. Impression: Unspecified combined rv systolic (congestive) and diastolic (congestive) heart failure; Pulmonary edema. Condition is Stable. Forms are Medication Reconciliation Form, Thank You Letter, Antibiotic Education, Prescription Opioid Use. Follow up: Private Physician; When: As needed; Reason: Recheck today's complaints, Re-evaluation by your physician. Problem is an acute exacerbation. Symptoms have improved. rn
[2018-07-05 01:08] VITALS: TEMP 98.5
[2018-07-05 01:11] VITALS: BP 145/96; O2SAT 96
== END 2018-07-05 00:03 | disposition home or self-care (01) ==
LOC: ER 21:40
DX: I50.40 Unspecified combined systolic (congestive) and diastolic (congestive) heart failure (principal); Z88.8 Allergy status to other drugs, medicaments and biological substances
CPT/HCPCS: 71045; 96375; 96374; 99284; J1940; J2930

== ENCOUNTER 2018-07-07 20:20 | Emergency (ER) | payer OTHER ==
--- OUTSIDE RECORDS SUMMARY | 2018-07-07 20:22 | XMS REPORT ---
:1950 [facility] Address [address] [place] [address] Care Team Providers Name Role Phone Unavailable [...]
[2018-07-07] MEDS ORDERED: ALBUTEROL 2.5 MG/3 ML NEB SOL ONE (21:07)
--- NOTE | 2018-07-07 22:28 | EDPHYS ---
Physician Documentation [facility] Name: Mark Terrell Age: 67 yrs Sex: Male : 1950 Arrival Date: 07/07/2018 Time: 20:21 Bed 17 Private MD: ED Physician Blair Kerr HPI: 07/07 21:56 This 67 yrs old Male presents to ER via Ambulatory with complaints of jr8 Shortness Of Breath, Breathing Difficulty. 21:56 The patient has shortness of breath at rest. Onset: The symptoms/episode began/occurred jr8 acutely, today. Duration: The symptoms are continuous. The patient's shortness of breath is aggravated by exertion, walking. Associated signs and symptoms: Pertinent positives: non-productive cough. Severity of symptoms: At their worst the symptoms were mild in the emergency department the symptoms are unchanged. The patient has experienced similar episodes in the past, several times. The patient has not recently seen a physician. Historical: - Allergies: 20:26 Benadryl; ed1 - Home Meds: 20:26 None [Active]; ed1 - PMHx: 20:26 Aneurysm; BRAIN; Atrial Fib; Cancer; PROSTATE; CHF; COPD; Hypertension; Prostate Cancer;ed1 - PSHx: 20:26 prostatectomy; aneurysm repair; ed1 - Immunization history:: Adult Immunizations not up to date. - Social history:: Smoking status: Patient uses tobacco products, smokes one-half pack cigarettes per day. - Ebola Screening: : Patient negative for fever greater than or equal to 101.5 degrees Fahrenheit, and additional compatible Ebola Virus Disease symptoms Patient denies exposure to infectious person Patient denies travel to an Ebola-affected area in the 21 days before illness onset No symptoms or risks identified at this time. ROS: 21:56 Eyes: Negative for injury, pain, redness, and discharge, ENT: Negative for injury, jr8 pain, and discharge, Neck: Negative for injury, pain, and swelling, Cardiovascular: Negative for chest pain, palpitations, and edema, Abdomen/GI: Negative for abdominal pain, nausea, vomiting, diarrhea, and constipation, Back: Negative for injury and pain, MS/Extremity: Negative for injury and deformity, Skin: Negative for injury, rash, and discoloration, Neuro: Negative for headache, weakness, numbness, tingling, and seizure. 21:56 Respiratory: Positive for cough, shortness of breath. Exam: 21:56 Eyes: Pupils equal round and reactive to light, extra-ocular motions intact. Lids and jr8 lashes normal. Conjunctiva and sclera are non-icteric and not injected. Cornea within normal limits. Periorbital areas with no swelling, redness, or edema. ENT: Nares patent. No nasal discharge, no septal abnormalities noted. Tympanic membranes are normal and external auditory canals are clear. Oropharynx with no redness, swelling, or masses, exudates, or evidence of obstruction, uvula midline. Mucous membranes moist. Neck: Trachea midline, no thyromegaly or masses palpated, and no cervical lymphadenopathy. Supple, full range of motion without nuchal rigidity, or vertebral point tenderness. No Meningismus. Cardiovascular: Regular rate and rhythm with a normal S1 and S2. No gallops, murmurs, or rubs. Normal PMI, no JVD. No pulse deficits. Abdomen/GI: Soft, non-tender, with normal bowel sounds. No distension or tympany. No guarding or rebound. No evidence of tenderness throughout. Back: No spinal tenderness. No costovertebral tenderness. Full range of motion. Skin: Warm, dry with normal turgor. Normal color with no rashes, no lesions, and no evidence of cellulitis. MS/ Extremity: Pulses equal, no cyanosis. Neurovascular intact. Full, normal range of motion. Neuro: Awake and alert, GCS 15, oriented to person, place, time, and situation. Cranial nerves II-XII grossly intact. Motor strength 5/5 in all extremities. Sensory grossly intact. Cerebellar exam normal. Normal gait. 21:56 Respiratory: the patient does not display signs of respiratory distress, Respirations: normal, symetrical, no use of accessory muscles, no grunting, no evidence of nasal flaring, no prolonged exhalations, no pursed lip breathing, no retractions, no shallow respirations, no splinting, no tachypnea, Breath sounds: wheezing: expiratory that is mild, is heard in the left posterior lower lobe, right posterior middle lobe and right posterior lower lobe. Vital Signs: 20:26 BP 162 / 79; Pulse 72; Resp 20; Temp 97.5(TE); Pulse Ox 98% on R/A; Weight 75.3 kg; ed1 Height 5 ft. 11 in. (180.34 cm); Pain 8/10; 21:00 BP 133 / 92; Pulse 75; Resp 19; Temp 97.6; Pulse Ox 99% on Nebulizer Mask; Pain 0/10; rr5 22:00 BP 130 / 80; Pulse 70; Resp 17; Temp 98; Pulse Ox 99% ; rr5 23:00 BP 131 / 75; Pulse 75; Resp 19; Temp 98.1; Pulse Ox 99% on R/A; Pain 0/10; rr5 07/08 00:00 BP 129 / 70; Pulse 69; Resp 18; Pulse Ox 98% ; rr5 07/07 20:26 Body Mass Index 23.15 (75.30 kg, 180.34 cm) ed1 MDM: 07/07 20:29 Patient medically screened. tw4 22:02 Data reviewed: vital signs, nurses notes, old medical records, lab test result(s). Data jr8 interpreted: Pulse oximetry: on room air is 99 %. Interpretation: normal. Counseling: I had a detailed discussion with the patient and/or guardian regarding: the historical points, exam findings, and any diagnostic results supporting the discharge/admit diagnosis, the need for outpatient follow up, a dialysis chief equipment technician, a family practitioner, to return to the emergency department if symptoms worsen or persist or if there are any questions or concerns that arise at home. ED course: Patient has been seen three times including admission within the last 4 days. No new findings on physical exam today. Did not come in with acute respiratory distress. VS stable. Improved after breathing treatment. Was given sandwich and something to drink. Feeling well now. Administered Medications: 20:59 Drug: Albuterol 2.5 mg Route: Inhalation; rr5 22:00 Follow up: Response: No adverse reaction rr5 Disposition: 07/08 04:45 Co-signature as Attending Physician, Blair Kerr MD I agree with the assessment and tw4 plan of care. Disposition: 07/07/18 22:27 Discharged to Home. Impression: Chronic obstructive pulmonary disease with (acute) exacerbation. - Condition is Stable. - Discharge Instructions: Chronic Obstructive Pulmonary Disease. - Medication Reconciliation Form, Thank You Letter, Antibiotic Education, Prescription Opioid Use form. - Follow up: Private Physician; When: 2 - 3 days; Reason: Recheck today's complaints, Continuance of care, Re-evaluation by your physician. - Problem is new. - Symptoms are resolved. Signatures: Susan Tracy RN RN ed1 Petar Camargo PA PA jr8 Blair Kerr MD MD tw4 Daron Garcia RN RN rr5 Corrections: (The following items were deleted from the chart) 01:13 07/07 22:27 07/07/2018 22:27 Discharged to Home. Impression: Chronic obstructive rr5 pulmonary disease with (acute) exacerbation. Condition is Stable. Forms are Medication Reconciliation Form, Thank You Letter, Antibiotic Education, Prescription Opioid Use. Follow up: Private Physician; When: 2 - 3 days; Reason: Recheck today's complaints, Continuance of care, Re-evaluation by your physician. Problem is new. Symptoms are resolved. jr8
--- NOTE | 2018-07-07 22:28 | ER ---
Nurse's Notes [facility] Name: Mark Terrell Age: 67 yrs Sex: Male : 1950 Arrival Date: 07/07/2018 Time: 20:21 Bed 17 Private MD: Diagnosis: Chronic obstructive pulmonary disease with (acute) exacerbation Presentation: 07/07 20:24 Presenting complaint: Patient states: I started having shortness of breath about an ed1 hour and half ago. Transition of care: patient was not received from another setting of care. Onset of symptoms was July 07, 2018. Risk Assessment: Do you want to hurt yourself or someone else? Patient reports no desire to harm self or others. Initial Sepsis Screen: Does the patient meet any 2 criteria? No. Patient's initial sepsis screen is negative. Does the patient have a suspected source of infection? No. Patient's initial sepsis screen is negative. Care prior to arrival: None. 20:24 Method Of Arrival: Ambulatory ed1 20:24 Acuity: ARIEL 3 ed1 Triage Assessment: 20:26 General: Appears uncomfortable, Behavior is calm, cooperative. Pain: Complains of pain ed1 in head Pain currently is 8 out of 10 on a pain scale. Respiratory: Reports shortness of breath at rest Onset: The symptoms/episode began/occurred just prior to arrival, the patient has mild shortness of breath. Historical: - Allergies: 20:26 Benadryl; ed1 - Home Meds: 20:26 None [Active]; ed1 - PMHx: 20:26 Aneurysm; BRAIN; Atrial Fib; Cancer; PROSTATE; CHF; COPD; Hypertension; Prostate Cancer;ed1 - PSHx: 20:26 prostatectomy; aneurysm repair; ed1 - Immunization history:: Adult Immunizations not up to date. - Social history:: Smoking status: Patient uses tobacco products, smokes one-half pack cigarettes per day. - Ebola Screening: : Patient negative for fever greater than or equal to 101.5 degrees Fahrenheit, and additional compatible Ebola Virus Disease symptoms Patient denies exposure to infectious person Patient denies travel to an Ebola-affected area in the 21 days before illness onset No symptoms or risks identified at this time. Screenin:49 Abuse screen: Denies threats or abuse. Denies injuries from another. Nutritional rr5 screening: No deficits noted. Tuberculosis screening: No symptoms or risk factors identified. Fall Risk None identified. Total Chiang Fall Scale indicates No Risk (0-24 pts). Assessment: 20:30 General: Appears in no apparent distress. comfortable, Behavior is calm, cooperative, rr5 appropriate for age. Pain: Denies pain. Neuro: Level of Consciousness is awake, alert, obeys commands, Oriented to person, place, time, situation, Appropriate for age. Cardiovascular: Capillary refill < 3 seconds Patient's skin is warm and dry. Rhythm is atrial fibrillation. 20:30 Respiratory: Reports shortness of breath Airway is patent Respiratory effort is rr5 even, unlabored, Respiratory pattern is regular, symmetrical, Breath sounds are clear. GI: No signs and/or symptoms were reported involving the gastrointestinal system. : No signs and/or symptoms were reported regarding the genitourinary system. EENT: No signs and/or symptoms were reported regarding the EENT system. Derm: Skin is intact, Skin temperature is warm. Musculoskeletal: Capillary refill < 3 seconds, Range of motion: intact in all extremities. 21:37 Reassessment: Patient appears in no apparent distress at this time. Patient is alert, rr5 oriented x 3, equal unlabored respirations, skin warm/dry/pink. Patient states feeling better. Patient states symptoms have improved. 22:25 Reassessment: Patient appears in no apparent distress at this time. Patient is alert, rr5 oriented x 3, equal unlabored respirations, skin warm/dry/pink. asleep on bed comfortably. Patient states symptoms have improved. 07/08 00:00 Reassessment: Patient appears in no apparent distress at this time. Patient is alert, rr5 oriented x 3, equal unlabored respirations, skin warm/dry/pink. discharge instruction given and explained without complaints made. Patient denies pain at this time. Patient states feeling better. Patient states symptoms have improved. Vital Signs: 07/07 20:26 BP 162 / 79; Pulse 72; Resp 20; Temp 97.5(TE); Pulse Ox 98% on R/A; Weight 75.3 kg; ed1 Height 5 ft. 11 in. (180.34 cm); Pain 8/10; 21:00 BP 133 / 92; Pulse 75; Resp 19; Temp 97.6; Pulse Ox 99% on Nebulizer Mask; Pain 0/10; rr5 22:00 BP 130 / 80; Pulse 70; Resp 17; Temp 98; Pulse Ox 99% ; rr5 23:00 BP 131 / 75; Pulse 75; Resp 19; Temp 98.1; Pulse Ox 99% on R/A; Pain 0/10; rr5 07/08 00:00 BP 129 / 70; Pulse 69; Resp 18; Pulse Ox 98% ; rr5 07/07 20:26 Body Mass Index 23.15 (75.30 kg, 180.34 cm) ed1 ED Course: 07/07 20:21 Patient arrived in ED. am2 20:25 Triage completed. ed1 20:26 Arm band placed on right wrist. ed1 20:30 Daron Garcia RN is Primary Nurse. rr5 20:31 Petar Camargo PA is PHCP. jr8 20:31 Blair Kerr MD is Attending Physician. jr8 20:49 Patient has correct armband on for positive identification. Placed in gown. Bed in low rr5 position. Call light in reach. Side rails up X2. Pulse ox on. NIBP on. Diet: Patient given snack. Patient given ice chips. Patient given water. Tolerated well. 21:00 Warm blanket given. Pillow given. rr5 21:00 Initial Neb Treatment Given as ordered Patient was instructed and evaluated on rr5 procedure Patient tolerated procedure well without adverse effect. 22:30 Head of bed Turned to right side. rr5 07/08 01:00 No provider procedures requiring assistance completed. Patient did not have IV access rr5 during this emergency room visit. Administered Medications: 07/07 20:59 Drug: Albuterol 2.5 mg Route: Inhalation; rr5 22:00 Follow up: Response: No adverse reaction rr5 Outcome: 22:27 Discharge ordered by . jr8 07/08 01:00 Discharged to home ambulatory. rr5 Condition: stable Discharge instructions given to patient, Instructed on discharge instructions, follow up and referral plans. Demonstrated understanding of instructions, follow-up care. 01:13 Patient left the ED. rr5 Signatures: Susan Tracy RN RN ed1 Petar Camargo PA PA jr8 Liane Armas am2 Daron Garcia RN RN rr5
[2018-07-08 01:30] VITALS: TEMP 98.1
[2018-07-08 01:31] VITALS: BP 129/70; O2SAT 98
== END 2018-07-08 01:13 | disposition home or self-care (01) ==
LOC: ER 20:20
DX: J44.1 Chronic obstructive pulmonary disease with (acute) exacerbation (principal); I10 Essential (primary) hypertension; F17.210 Nicotine dependence, cigarettes, uncomplicated; Z85.46 Personal history of malignant neoplasm of prostate; Z88.8 Allergy status to other drugs, medicaments and biological substances
CPT/HCPCS: 99284

== ENCOUNTER 2018-07-10 11:15 | Emergency (ER) | payer OTHER ==
--- OUTSIDE RECORDS SUMMARY | 2018-07-10 11:19 | XMS REPORT ---
:1950 [facility] Address [address] [place] [address] Care Team Providers Name Role Phone Unavailable [...]
[2018-07-10] MEDS ORDERED: predniSONE 20 MG TAB ONE (11:48)
[2018-07-10] MEDS ORDERED: FUROSEMIDE 40 MG TABLET ONE (11:48)
--- NOTE | 2018-07-10 13:50 | ER ---
Nurse's Notes [facility] Name: Mark Terrell Age: 67 yrs Sex: Male : 1950 Arrival Date: 07/10/2018 Time: 11:18 Bed 25 Private MD: Diagnosis: Chronic obstructive pulmonary disease with (acute) exacerbation Presentation: 07/10 11:24 Presenting complaint: Patient states: shortness of breath. Better after A\T\A treatment. ss Transition of care: patient was not received from another setting of care. Onset of symptoms is unknown. Risk Assessment: Do you want to hurt yourself or someone else? Patient reports no desire to harm self or others. Initial Sepsis Screen: Does the patient meet any 2 criteria? No. Patient's initial sepsis screen is negative. Does the patient have a suspected source of infection? No. Patient's initial sepsis screen is negative. Care prior to arrival: None. 11:24 Method Of Arrival: EMS: [facility] 11:24 Acuity: ARIEL 3 ss Historical: - Allergies: 11:26 Benadryl; ss - PMHx: 11:26 Aneurysm; BRAIN; Atrial Fib; Cancer; PROSTATE; CHF; COPD; Hypertension; Prostate Cancer;ss - PSHx: 11:26 prostatectomy; aneurysm repair; ss - Immunization history:: Adult Immunizations unknown. - Social history:: Smoking status: Patient uses tobacco products, smokes one-half pack cigarettes per day. - Ebola Screening: : Patient denies exposure to infectious person Patient denies travel to an Ebola-affected area in the 21 days before illness onset. Screenin:28 Abuse screen: Denies threats or abuse. Denies injuries from another. Nutritional ss screening: No deficits noted. Tuberculosis screening: Never had TB. Fall Risk None identified. Assessment: 11:26 General: Appears uncomfortable, Behavior is calm, cooperative, Denies fever, feeling ss ill, fatigue, chills. General: Appears unkempt. Pain: Denies pain. Neuro: Level of Consciousness is awake, alert, obeys commands, Oriented to person, place, time, situation, Speech is normal. Respiratory: Reports shortness of breath at rest on exertion Airway is patent Respiratory effort is even, labored, Respiratory pattern is regular, symmetrical, tachypnea Breath sounds with wheezes bilaterally. GI: Patient currently denies abdominal pain, diarrhea, nausea, vomiting. EENT: Oral mucosa is moist. Derm: Skin is pink, warm \T\ dry. Musculoskeletal: Circulation, motion, and sensation intact. Range of motion: intact in all extremities, Swelling absent. 13:38 Reassessment: Patient appears in no apparent distress at this time. Patient and/or ss family updated on plan of care and expected duration. Pain level reassessed. Patient is alert, oriented x 3, equal unlabored respirations, skin warm/dry/pink. 13:38 Reassessment: Patient denies pain at this time. Patient states feeling better. Patient ss states symptoms have improved. Cardiovascular: Capillary refill < 3 seconds is brisk in bilateral fingers. Respiratory: Breath sounds are clear in right upper lobe, left upper lobe, left posterior upper lobe and right posterior upper lobe Breath sounds are diminished in right posterior lower lobe Breath sounds with wheezes in left posterior lower lobe. Vital Signs: 11:23 BP 175 / 114; Pulse 94; Resp 34; Temp 97.9(O); Pulse Ox 98% on R/A; Weight 75.3 kg; ss Height 5 ft. 11 in. (180.34 cm); Pain 0/10; 11:37 BP 172 / 112; Pulse 90; Resp 30; Pulse Ox 96% on R/A; ss 12:13 BP 141 / 77; Pulse 95; Resp 32; Pulse Ox 96% on R/A; ss 13:07 BP 161 / 118; Pulse 95; Resp 33; Temp 97.7(TE); Pulse Ox 99% on R/A; ca1 13:38 Pulse 90; Resp 23; Pulse Ox 97% on R/A; ss 11:23 Body Mass Index 23.15 (75.30 kg, 180.34 cm) ED Course: 11:18 Patient arrived in ED. iw 11:23 Tayler Flynn, LASHAY is Primary Nurse. ss 11:23 Arm band placed on right wrist. ss 11:24 Rj Arnold NP is PHCP. pm1 11:24 Puma Chi MD is Attending Physician. pm1 11:25 Triage completed. ss 11:28 Patient has correct armband on for positive identification. Bed in low position. Call ss light in reach. Side rails up X 1. hall monitor on. Pulse ox on. NIBP on. 11:28 Patient maintains SpO2 saturation greater than 95% on room air. ss 14:00 No provider procedures requiring assistance completed. Patient did not have IV access ss during this emergency room visit. Administered Medications: 11:36 Drug: LaSIX 40 mg Route: PO; ss 13:39 Follow up: Response: No adverse reaction; Marked relief of symptoms; No adverse ss reaction, output increased 11:37 Drug: predniSONE 60 mg Route: PO; ss 13:40 Follow up: Response: No adverse reaction; Marked relief of symptoms; Wheezing diminishedss Outcome: 13:50 Discharge ordered by MD. pm1 14:00 Discharged to home ambulatory. ss 14:00 Condition: improved 14:00 Discharge instructions given to patient, Instructed on discharge instructions, follow up and referral plans. medication usage, Demonstrated understanding of instructions, follow-up care, medications, Prescriptions given X 3. 14:00 Patient left the ED. ss Signatures: Sara Enrique, RN LASHAY Tayler Flynn RN RN Rj Arnold, MULTI PUNCH OPERATOR MULTI PUNCH OPERATOR pm1 Sameera Contreras RN RN ca1
--- NOTE | 2018-07-10 13:50 | EDPHYS ---
Physician Documentation [facility] Name: Mark Terrell Age: 67 yrs Sex: Male : 1950 Arrival Date: 07/10/2018 Time: 11:18 Bed 25 Private MD: ED Physician Puma Chi HPI: 07/10 13:49 This 67 yrs old Male presents to ER via EMS with complaints of Shortness Of pm1 Breath. 13:49 The patient has shortness of breath at rest. Onset: The symptoms/episode began/occurred pm1 2 day(s) ago. Duration: The symptoms are chronic, are continuous. The patient's shortness of breath is aggravated by nothing, is alleviated by breathing treatment in route by EMS. Associated signs and symptoms: Pertinent negatives: chest pain, non-productive cough, productive cough, fever, nausea, vomiting. Severity of symptoms: in the emergency department the symptoms have improved Pain is currently a 0 / 10. The patient has experienced similar episodes in the past, chronically. Patient's shortness of breath resolved with breathing treatment prior to arrival. 13:49 Patient with history of noncompliance with Lasix and breathing treatments for COPD and pm1 CHF. Historical: - Allergies: 11:26 Benadryl; ss - PMHx: 11:26 Aneurysm; BRAIN; Atrial Fib; Cancer; PROSTATE; CHF; COPD; Hypertension; Prostate Cancer;ss - PSHx: 11:26 prostatectomy; aneurysm repair; ss - Immunization history:: Adult Immunizations unknown. - Social history:: Smoking status: Patient uses tobacco products, smokes one-half pack cigarettes per day. - Ebola Screening: : Patient denies exposure to infectious person Patient denies travel to an Ebola-affected area in the 21 days before illness onset. ROS: 13:49 Constitutional: Negative for fever, chills, and weight loss, Eyes: Negative for injury, pm1 pain, redness, and discharge, ENT: Negative for injury, pain, and discharge, Neck: Negative for injury, pain, and swelling, Cardiovascular: Negative for chest pain, palpitations, and edema, Abdomen/GI: Negative for abdominal pain, nausea, vomiting, diarrhea, and constipation, Back: Negative for injury and pain, : Negative for injury, bleeding, discharge, and swelling, MS/Extremity: Negative for injury and deformity. 13:49 Skin: Negative for injury, rash, and discoloration, Neuro: Negative for headache, weakness, numbness, tingling, and seizure. 13:49 Respiratory: Positive for shortness of breath, Negative for cough, sputum production. Exam: 13:49 Constitutional: This is a well developed, well nourished patient who is awake, alert, pm1 and in no acute distress. Head/Face: Normocephalic, atraumatic. Eyes: Pupils equal round and reactive to light, extra-ocular motions intact. Lids and lashes normal. Conjunctiva and sclera are non-icteric and not injected. Cornea within normal limits. Periorbital areas with no swelling, redness, or edema. ENT: Nares patent. No nasal discharge, no septal abnormalities noted. Tympanic membranes are normal and external auditory canals are clear. Oropharynx with no redness, swelling, or masses, exudates, or evidence of obstruction, uvula midline. Mucous membranes moist. Neck: Trachea midline, no thyromegaly or masses palpated, and no cervical lymphadenopathy. Supple, full range of motion without nuchal rigidity, or vertebral point tenderness. No Meningismus. Chest/axilla: Normal chest wall appearance and motion. Nontender with no deformity. No lesions are appreciated. Cardiovascular: Regular rate and rhythm with a normal S1 and S2. No gallops, murmurs, or rubs. Normal PMI, no JVD. No pulse deficits. 13:49 Abdomen/GI: Soft, non-tender, with normal bowel sounds. No distension or tympany. No guarding or rebound. No evidence of tenderness throughout. Back: No spinal tenderness. No costovertebral tenderness. Full range of motion. Skin: Warm, dry with normal turgor. Normal color with no rashes, no lesions, and no evidence of cellulitis. MS/ Extremity: Pulses equal, no cyanosis. Neurovascular intact. Full, normal range of motion. 13:49 Respiratory: the patient does not display signs of respiratory distress, Respirations: normal, Breath sounds: are clear throughout. 13:49 Neuro: Orientation: is normal, Motor: is normal, moves all fours. Vital Signs: 11:23 BP 175 / 114; Pulse 94; Resp 34; Temp 97.9(O); Pulse Ox 98% on R/A; Weight 75.3 kg; ss Height 5 ft. 11 in. (180.34 cm); Pain 0/10; 11:37 BP 172 / 112; Pulse 90; Resp 30; Pulse Ox 96% on R/A; ss 12:13 BP 141 / 77; Pulse 95; Resp 32; Pulse Ox 96% on R/A; ss 13:07 BP 161 / 118; Pulse 95; Resp 33; Temp 97.7(TE); Pulse Ox 99% on R/A; ca1 13:38 Pulse 90; Resp 23; Pulse Ox 97% on R/A; ss 11:23 Body Mass Index 23.15 (75.30 kg, 180.34 cm) ss MDM: 11:25 Patient medically screened. pm1 13:49 Data reviewed: vital signs. Data interpreted: Pulse oximetry: on room air is 97 %. pm1 Interpretation: normal. Counseling: I had a detailed discussion with the patient and/or guardian regarding: the historical points, exam findings, and any diagnostic results supporting the discharge/admit diagnosis, the need for outpatient follow up, to return to the emergency department if symptoms worsen or persist or if there are any questions or concerns that arise at home. Administered Medications: 11:36 Drug: LaSIX 40 mg Route: PO; ss 13:39 Follow up: Response: No adverse reaction; Marked relief of symptoms; No adverse ss reaction, output increased 11:37 Drug: predniSONE 60 mg Route: PO; ss 13:40 Follow up: Response: No adverse reaction; Marked relief of symptoms; Wheezing diminishedss Disposition: 07/10/18 13:50 Discharged to Home. Impression: Chronic obstructive pulmonary disease with (acute) exacerbation. - Condition is Stable. - Discharge Instructions: How to Use an Inhaler, Chronic Obstructive Pulmonary Disease Exacerbation. - Prescriptions for Prednisone 20 mg Oral Tablet - take 3 tablet by ORAL route once daily for 5 days; 15 tablet. Lasix 40 mg Oral Tablet - take 1 tablet by ORAL route once daily for 30 days; 30 tablet. Albuterol Sulfate 90 mcg/actuation - inhale 1-2 puff by INHALATION route every 4-6 hours; 1 Inhaler. - Medication Reconciliation Form, Thank You Letter, Antibiotic Education, Prescription Opioid Use form. - Follow up: Emergency Department; When: As needed; Reason: Worsening of condition. Follow up: Private Physician; When: 2 - 3 days; Reason: Recheck today's complaints, Continuance of care, Re-evaluation by your physician. - Problem is new. - Symptoms have improved. Addendum: 07/11/2018 19:26 Co-signature as Attending Physician, Puma Chi MD I agree with the assessment and k dr plan of care. Signatures: Puma Chi MD MD [facility] Tayler Flynn, RN RN ss Rj Arnold, FADI ADVERTISING VICE PRESIDENT pm1 Corrections: (The following items were deleted from the chart) 07/10 13:50 13:50 07/10/2018 13:50 Discharged to Home. Impression: Chronic obstructive pulmonary pm1 disease, unspecified. Condition is Stable. Forms are Medication Reconciliation Form, Thank You Letter, Antibiotic Education, Prescription Opioid Use. Follow up: Emergency Department; When: As needed; Reason: Worsening of condition. Follow up: Private Physician; When: 2 - 3 days; Reason: Recheck today's complaints, Continuance of care, Re-evaluation by your physician. Problem is new. Symptoms have improved. pm1 14:00 13:50 07/10/2018 13:50 Discharged to Home. Impression: Chronic obstructive pulmonary ss disease with (acute) exacerbation. Condition is Stable. Forms are Medication Reconciliation Form, Thank You Letter, Antibiotic Education, Prescription Opioid Use. Follow up: Emergency Department; When: As needed; Reason: Worsening of condition. Follow up: Private Physician; When: 2 - 3 days; Reason: Recheck today's complaints, Continuance of care, Re-evaluation by your physician. Problem is new. Symptoms have improved. pm1
[2018-07-10 16:26] VITALS: BP 161/118; TEMP 97.7
[2018-07-10 16:28] VITALS: O2SAT 97
== END 2018-07-10 14:00 | disposition home or self-care (01) ==
LOC: ER 11:15
DX: J44.1 Chronic obstructive pulmonary disease with (acute) exacerbation (principal); C61 Malignant neoplasm of prostate; I48.91 Unspecified atrial fibrillation; I11.0 Hypertensive heart disease with heart failure; I50.9 Heart failure, unspecified; F17.210 Nicotine dependence, cigarettes, uncomplicated
CPT/HCPCS: 99285; J7512

== ENCOUNTER 2018-07-17 20:05 | Emergency (ER) | payer OTHER ==
--- OUTSIDE RECORDS SUMMARY | 2018-07-17 20:07 | XMS REPORT ---
:1950 [facility] Address [address] [place] [address] Care Team Providers Name Role Phone Unavailable Unavailable Unavailable Payers Payer Name Policy Type Policy Number Effective Date Expiration Date Problems This patient has no known problems. Allergies, Adverse Reactions, Alerts Allergy Name Allergy Status Severity Reaction(s) Onset Inactive Treating Comments Type Date Date Clinician diphenhydramine DA Active U 806 00:00: 00 Medications This patient has no known medications. Results Test Description Test Time Test Comments Text Results Atomic Results Result Comments XR Chest 1 View 2017-12-22 23:14:17 Patient: JOSTIN BURTON [facility] Date/Time12/22/2017 22:58 CDTReason for ExamCHF (Congestive Heart Failure), knownReportPortable chest one view.HISTORY: CHFLocation R 16COMMENT: No comparison. Vascular interstitial markings are mildly prominent.. The cardiac silhouette is magnified. No pleural effusion. Mild thoracic spondylosis.IMPRESSION:1. Possible mild pulmonary vascular congestion. Correlate clinically. Final Dictated by: MD Waddell Daniel RDictated DT/TM: 12/22/2017 11:12 pmSigned by: MD Waddell Daniel RSigned (Electronic Signature): 12/22/2017 11:14 pm
--- NOTE | 2018-07-17 20:41 | EDPHYS ---
Physician Documentation [facility] Name: Mark Terrell Age: 67 yrs Sex: Male : 1950 Arrival Date: 07/17/2018 Time: 20:06 Bed 24 Private MD: ED Physician Blair Kerr HPI: 07/17 21:36 This 67 yrs old Male presents to ER via EMS with complaints of Shortness Of pm1 Breath. 21:36 The patient has shortness of breath during heavy activity. Onset: The symptoms/episode pm1 began/occurred just prior to arrival. Duration: The symptoms are continuous. The patient's shortness of breath is alleviated by nebulizer treatment, in route by EMS. Associated signs and symptoms: Pertinent negatives: chest pain, non-productive cough, productive cough, nausea, vomiting. Severity of symptoms: in the emergency department the symptoms have resolved Pain is currently a 0 / 10. The patient has experienced similar episodes in the past, multiple times. Patient biked to his friends house and got short of breath at arrival there. Patient has been taking Lasix daily, however he does not have an inhaler. His shortness of breath was resolved with the breathing treatment given by the EMS prior to arrival. Historical: - Allergies: 20:20 Benadryl; ls4 - Home Meds: 20:20 Metoprolol Tartrate Oral [Active]; ls4 - PMHx: 20:20 Aneurysm; BRAIN; Atrial Fib; Cancer; PROSTATE; CHF; COPD; Hypertension; Prostate Cancer;ls4 - PSHx: 20:20 prostatectomy; aneurysm repair; ls4 - Immunization history:: Adult Immunizations unknown. - Social history:: Smoking status: Patient uses tobacco products, smokes one pack cigarettes per day. - Ebola Screening: : Patient negative for fever greater than or equal to 101.5 degrees Fahrenheit, and additional compatible Ebola Virus Disease symptoms Patient denies exposure to infectious person Patient denies travel to an Ebola-affected area in the 21 days before illness onset No symptoms or risks identified at this time. ROS: 21:36 Constitutional: Negative for fever, chills, and weight loss, Eyes: Negative for injury, pm1 pain, redness, and discharge, ENT: Negative for injury, pain, and discharge, Neck: Negative for injury, pain, and swelling, Cardiovascular: Negative for chest pain, palpitations, and edema. 21:36 Abdomen/GI: Negative for abdominal pain, nausea, vomiting, diarrhea, and constipation, Back: Negative for injury and pain, : Negative for injury, bleeding, discharge, and swelling, MS/Extremity: Negative for injury and deformity, Skin: Negative for injury, rash, and discoloration, Neuro: Negative for headache, weakness, numbness, tingling, and seizure. 21:36 Respiratory: Positive for shortness of breath, Negative for cough. Exam: 21:36 Constitutional: This is a well developed, well nourished patient who is awake, alert, pm1 and in no acute distress. Head/Face: Normocephalic, atraumatic. Eyes: Pupils equal round and reactive to light, extra-ocular motions intact. Lids and lashes normal. Conjunctiva and sclera are non-icteric and not injected. Cornea within normal limits. Periorbital areas with no swelling, redness, or edema. ENT: Nares patent. No nasal discharge, no septal abnormalities noted. Tympanic membranes are normal and external auditory canals are clear. Oropharynx with no redness, swelling, or masses, exudates, or evidence of obstruction, uvula midline. Mucous membranes moist. Neck: Trachea midline, no thyromegaly or masses palpated, and no cervical lymphadenopathy. Supple, full range of motion without nuchal rigidity, or vertebral point tenderness. No Meningismus. Chest/axilla: Normal chest wall appearance and motion. Nontender with no deformity. No lesions are appreciated. Cardiovascular: Regular rate and rhythm with a normal S1 and S2. No gallops, murmurs, or rubs. Normal PMI, no JVD. No pulse deficits. Respiratory: Lungs have equal breath sounds bilaterally, clear to auscultation and percussion. No rales, rhonchi or wheezes noted. No increased work of breathing, no retractions or nasal flaring. Abdomen/GI: Soft, non-tender, with normal bowel sounds. No distension or tympany. No guarding or rebound. No evidence of tenderness throughout. Back: No spinal tenderness. No costovertebral tenderness. Full range of motion. Skin: Warm, dry with normal turgor. Normal color with no rashes, no lesions, and no evidence of cellulitis. MS/ Extremity: Pulses equal, no cyanosis. Neurovascular intact. Full, normal range of motion. 21:36 Neuro: Orientation: is normal, Motor: is normal, moves all fours, Sensation: is normal, no obvious gross deficits. Vital Signs: 20:20 BP 168 / 110; Pulse 92; Resp 27; Temp 98.2(O); Pulse Ox 98% on R/A; Pain 0/10; ls4 MDM: 20:34 Patient medically screened. pm1 20:39 Data reviewed: vital signs. Data interpreted: Pulse oximetry: on room air is 98 %. pm1 Interpretation: normal. Counseling: I had a detailed discussion with the patient and/or guardian regarding: the historical points, exam findings, and any diagnostic results supporting the discharge/admit diagnosis, the need for outpatient follow up, to return to the emergency department if symptoms worsen or persist or if there are any questions or concerns that arise at home. Administered Medications: 21:01 Drug: predniSONE 60 mg Route: PO; ls4 21:16 Follow up: Response: No adverse reaction ls4 Disposition: 07/17/18 20:40 Discharged to Home. Impression: Chronic obstructive pulmonary disease with (acute) exacerbation. - Condition is Stable. - Discharge Instructions: Chronic Obstructive Pulmonary Disease Exacerbation. - Prescriptions for Prednisone 20 mg Oral Tablet - take 3 tablet by ORAL route once daily for 5 days; 15 tablet. Lasix 40 mg Oral Tablet - take 1 tablet by ORAL route once daily for 30 days; 30 tablet. Albuterol Sulfate 90 mcg/actuation - inhale 1-2 puff by INHALATION route every 4-6 hours; 1 Inhaler. - Medication Reconciliation Form, Thank You Letter, Antibiotic Education, Prescription Opioid Use form. - Follow up: Emergency Department; When: As needed; Reason: Worsening of condition. Follow up: Private Physician; When: 2 - 3 days; Reason: Recheck today's complaints, Continuance of care, Re-evaluation by your physician. - Problem is new. - Symptoms have improved. Addendum: 07/20/2018 06:39 Co-signature as Attending Physician, Blair Kerr MD I agree with the assessment and t w4 plan of care. Signatures: Rj Arnold, CODING ADVISOR CODING ADVISOR pm1 Blair Kerr MD MD tw4 Mary Dueñas RN RN ls4 Corrections: (The following items were deleted from the chart) 07/17 21:17 20:40 07/17/2018 20:40 Discharged to Home. Impression: Chronic obstructive pulmonary ls4 disease with (acute) exacerbation. Condition is Stable. Forms are Medication Reconciliation Form, Thank You Letter, Antibiotic Education, Prescription Opioid Use. Follow up: Emergency Department; When: As needed; Reason: Worsening of condition. Follow up: Private Physician; When: 2 - 3 days; Reason: Recheck today's complaints, Continuance of care, Re-evaluation by your physician. Problem is new. Symptoms have improved. pm1
--- NOTE | 2018-07-17 20:41 | ER ---
Nurse's Notes [facility] Name: Mark Terrell Age: 67 yrs Sex: Male : 1950 Arrival Date: 07/17/2018 Time: 20:06 Bed 24 Private MD: Diagnosis: Chronic obstructive pulmonary disease with (acute) exacerbation Presentation: 07/17 20:16 Presenting complaint: Patient states: shortbness of breath while riding bike to friends ls4 house. denies chest pain. Transition of care: patient was not received from another setting of care. Onset of symptoms was July 17, 2018 at 19:15. Risk Assessment: Do you want to hurt yourself or someone else? Patient reports no desire to harm self or others. Initial Sepsis Screen: Does the patient meet any 2 criteria? No. Patient's initial sepsis screen is negative. Does the patient have a suspected source of infection? No. Patient's initial sepsis screen is negative. Care prior to arrival: Medication(s) given: Albuterol Neb x 1, Atrovent Neb x 1. 20:16 Method Of Arrival: EMS: [facility] 4 20:16 Acuity: ARIEL 3 ls4 Triage Assessment: 20:20 General: Appears in no apparent distress. unkempt, Behavior is calm, cooperative. Pain: ls4 Denies pain. Respiratory: Reports shortness of breath at rest on exertion since one hour ago Onset: The symptoms/episode began/occurred today, the patient has mild shortness of breath. Historical: - Allergies: 20:20 Benadryl; ls4 - Home Meds: 20:20 Metoprolol Tartrate Oral [Active]; ls4 - PMHx: 20:20 Aneurysm; BRAIN; Atrial Fib; Cancer; PROSTATE; CHF; COPD; Hypertension; Prostate Cancer;ls4 - PSHx: 20:20 prostatectomy; aneurysm repair; ls4 - Immunization history:: Adult Immunizations unknown. - Social history:: Smoking status: Patient uses tobacco products, smokes one pack cigarettes per day. - Ebola Screening: : Patient negative for fever greater than or equal to 101.5 degrees Fahrenheit, and additional compatible Ebola Virus Disease symptoms Patient denies exposure to infectious person Patient denies travel to an Ebola-affected area in the 21 days before illness onset No symptoms or risks identified at this time. Screenin:22 Abuse screen: Denies threats or abuse. Denies injuries from another. Nutritional ls4 screening: No deficits noted. Tuberculosis screening: No symptoms or risk factors identified. Fall Risk None identified. Assessment: 20:23 Cardiovascular: Rhythm is regular. Respiratory: Airway is patent Respiratory effort is ls4 even, unlabored, Breath sounds are clear bilaterally. Vital Signs: 20:20 BP 168 / 110; Pulse 92; Resp 27; Temp 98.2(O); Pulse Ox 98% on R/A; Pain 0/10; ls4 ED Course: 20:06 Patient arrived in ED. ds1 20:10 Mary Dueñas, RN is Primary Nurse. ls4 20:13 Rj Arnold NP is PHCP. pm1 20:13 Blair Kerr MD is Attending Physician. pm1 20:18 Triage completed. ls4 20:20 Arm band placed on right wrist. ls4 20:23 No provider procedures requiring assistance completed. ls4 20:24 Patient has correct armband on for positive identification. Bed in low position. Call ls4 light in reach. Side rails up X 1. panel monitor on. Pulse ox on. NIBP on. Administered Medications: 21:01 Drug: predniSONE 60 mg Route: PO; ls4 21:16 Follow up: Response: No adverse reaction ls4 Outcome: 20:40 Discharge ordered by . pm1 21:17 Patient left the ED. ls4 Signatures: Adrienne Augustine ds1 Rj Arnold NP HAND PROFILER pm1 Mary Dueñas, RN RN ls4
[2018-07-17] MEDS ORDERED: predniSONE 20 MG TAB ONE (21:01)
[2018-07-17 21:37] VITALS: BP 168/110; TEMP 98.2; O2SAT 98
== END 2018-07-17 21:17 | disposition home or self-care (01) ==
LOC: ER 20:05
DX: J44.1 Chronic obstructive pulmonary disease with (acute) exacerbation (principal); F17.210 Nicotine dependence, cigarettes, uncomplicated; I10 Essential (primary) hypertension; Z88.8 Allergy status to other drugs, medicaments and biological substances; Z85.46 Personal history of malignant neoplasm of prostate
CPT/HCPCS: 99284; J7512

== ENCOUNTER 2018-07-28 00:57 | Emergency (ER) | payer OTHER ==
--- OUTSIDE RECORDS SUMMARY | 2018-07-28 01:00 | XMS REPORT ---
:1950 [facility] [address] [place] [address] Care Team Providers Name Role Phone Unavailable [...] 1 View 2017-12-22 23:14:17 Patient: JOSTIN BURTON [facility] Date/Time12/22/2017 22:58 CDTReason for ExamCHF (Congestive [...]
[2018-07-28] MEDS ORDERED: IPRATROPIUM BROM 0.5MG/2.5ML ONE ×2 (01:35→03:17)
[2018-07-28] MEDS ORDERED: predniSONE 20 MG TAB ONE (01:35)
[2018-07-28] MEDS ORDERED: ALBUTEROL 2.5 MG/3 ML NEB SOL ONE ×2 (01:35→03:17)
[2018-07-28] MEDS ORDERED: FUROSEMIDE 40 MG TABLET ONE (01:35)
[2018-07-28] MEDS ORDERED: METOPROLOL TAR 50 MG TAB ONE (02:25)
[2018-07-28 04:01] LABS: Arterial Blood Carboxyhemoglob 1.9 % (0-1.5); Blood Gas Oxyhemoglobin 86.3 % (94-97); Blood O2 Saturation 88.6 % (92-98.5)
--- NOTE | 2018-07-28 04:18 | ER ---
Nurse's Notes [facility] Name: Mark Terrell Age: 67 yrs Sex: Male : 1950 Arrival Date: 07/28/2018 Time: 01:05 Bed 15 Private MD: Diagnosis: Chronic obstructive pulmonary disease with (acute) exacerbation;Heart failure Presentation: 07/28 00:56 Initial Sepsis Screen: Does the patient meet any 2 criteria? RR > 20 per min. HR > 90 jb4 bpm. Yes Does the patient have a suspected source of infection? Yes: No. Patient's initial sepsis screen is negative. 00:56 Presenting complaint: EMS states: Pt reports having shortness of breath. Transition of jb4 care: patient was not received from another setting of care. Onset of symptoms was July 28, 2018. Risk Assessment: Do you want to hurt yourself or someone else? Patient reports no desire to harm self or others. Care prior to arrival: Medication(s) given: Albuterol Neb x 1, Atrovent Neb x 1. 00:56 Method Of Arrival: EMS: [facility] jb4 00:56 Acuity: ARIEL 3 jb4 Historical: - Allergies: 00:56 Benadryl; jb4 - Home Meds: 00:56 Metoprolol Tartrate Oral [Active]; jb4 - PMHx: 00:56 Aneurysm; BRAIN; Atrial Fib; Cancer; PROSTATE; CHF; COPD; Hypertension; Prostate Cancer;jb4 - PSHx: 00:56 prostate removal; jb4 - Immunization history:: Adult Immunizations up to date. - Social history:: Smoking status: Patient uses tobacco products, Patient/guardian denies using alcohol. - Ebola Screening: : No symptoms or risks identified at this time. Screenin:56 Abuse screen: Denies threats or abuse. Nutritional screening: No deficits noted. jb4 Tuberculosis screening: No symptoms or risk factors identified. Fall Risk None identified. Assessment: 00:56 General: Appears distressed, uncomfortable, Behavior is calm, cooperative, appropriate jb4 for age. Pain: Denies pain. Neuro: Level of Consciousness is awake, alert, obeys commands, Oriented to person, place, time, situation. Cardiovascular: Patient's skin is warm and dry. Respiratory: Airway is patent Respiratory effort is even, labored, Respiratory pattern is symmetrical, tachypnea Breath sounds with rhonchi bilaterally. GI: No signs and/or symptoms were reported involving the gastrointestinal system. : No signs and/or symptoms were reported regarding the genitourinary system. EENT: No signs and/or symptoms were reported regarding the EENT system. Derm: Skin is intact, Skin is pink, warm \T\ dry. Musculoskeletal: Circulation, motion, and sensation intact. 02:00 Reassessment: Patient appears in no apparent distress at this time. Patient and/or jb4 family updated on plan of care and expected duration. Pain level reassessed. Patient is alert, oriented x 3, equal unlabored respirations, skin warm/dry/pink. 02:00 Respiratory: Airway is patent Respiratory effort is even, unlabored, Respiratory jb4 pattern is symmetrical, tachypnea Breath sounds with rhonchi bilaterally. 02:57 Reassessment: Patient appears in no apparent distress at this time. Patient and/or jb4 family updated on plan of care and expected duration. Pain level reassessed. Respiratory: Airway is patent Respiratory effort is even, labored, Respiratory pattern is symmetrical, tachypnea. 03:07 Respiratory: Airway is patent Respiratory effort is even, labored, Respiratory pattern jb4 is symmetrical, tachypnea Breath sounds are clear bilaterally. 04:10 Reassessment: Patient appears in no apparent distress at this time. Patient and/or jb4 family updated on plan of care and expected duration. Pain level reassessed. Patient is alert, oriented x 3, equal unlabored respirations, skin warm/dry/pink. 04:28 Reassessment: PT discharged to [facility]. No s/s of distress or pain noted, jb4 respirations even and unlabored. symptoms improved. pt feeling better, a\T\o x4, no IV access during this visit. Vital Signs: 00:56 BP 155 / 120; Pulse 96; Resp 36; Temp 97.8(O); Pulse Ox 100% on R/A; Weight 75.3 kg jb4 (R); Height 5 ft. 11 in. (180.34 cm) (R); Pain 0/10; 02:00 BP 171 / 115; Pulse 100; Resp 32; Pulse Ox 96% on R/A; jb4 02:57 BP 130 / 94; Pulse 75; Resp 36; Pulse Ox 100% on R/A; jb4 04:10 BP 135 / 90; Pulse 75; Resp 20; Pulse Ox 100% on R/A; jb4 00:56 Body Mass Index 23.15 (75.30 kg, 180.34 cm) jb4 ED Course: 00:56 Arm band placed on right wrist. jb4 00:56 Patient has correct armband on for positive identification. Bed in low position. Call jb4 light in reach. Side rails up X 1. Pulse ox on. NIBP on. 01:05 Patient arrived in ED. jb4 01:05 Mike Yoo MD is Attending Physician. 01:06 Triage completed. jb4 01:15 Curtis Strauss, RN is Primary Nurse. jb4 04:14 X-ray completed. Portable x-ray completed in exam room. Patient tolerated procedure kw well. 04:18 XRAY Chest (1 view) In Process Unspecified. EDMS 04:28 No provider procedures requiring assistance completed. Patient did not have IV access jb4 during this emergency room visit. Administered Medications: 01:23 Drug: predniSONE 40 mg Route: PO; jb4 04:15 Follow up: Response: No adverse reaction jb4 01:23 Drug: LaSIX 40 mg Route: PO; jb4 04:16 Follow up: Response: No adverse reaction jb4 01:24 Drug: Albuterol 2.5 mg Route: Inhalation; jb4 01:45 Follow up: Response: No adverse reaction jb4 01:24 Drug: AtroVENT Aerosol 0.5 mg Route: Inhalation; jb4 01:45 Follow up: Response: No adverse reaction jb4 02:11 Drug: Metoprolol 50 mg Route: PO; jb4 04:14 Follow up: Response: No adverse reaction; Blood pressure is lowered jb4 03:06 Drug: Albuterol 2.5 mg Route: Inhalation; jb4 03:06 Drug: AtroVENT Aerosol 0.5 mg Route: Inhalation; jb4 Outcome: 04:18 Discharge ordered by . 04:28 Discharged to home via wheelchair. jb4 04:28 Condition: stable 04:28 Discharge instructions given to patient, Instructed on discharge instructions, follow up and referral plans. Demonstrated understanding of instructions, follow-up care. 04:29 Patient left the ED. jb4 Signatures: Dispatcher [employer] Kaye, Curtis Jarquin, RN RN jb4 Mike Yoo MD MD gs Corrections: (The following items were deleted from the chart) 01:15 00:56 Care prior to arrival: None. jb4 jb4 02:27 02:00 Reassessment: Patient appears in no apparent distress at this time. No changes jb4 from previously documented assessment. Patient and/or family updated on plan of care and expected duration. Pain level reassessed. jb4
--- NOTE | 2018-07-28 04:19 | EDPHYS ---
Physician Documentation [facility] Name: Mark Terrell Age: 67 yrs Sex: Male : 1950 Arrival Date: 07/28/2018 Time: 01:05 Bed 15 Private MD: ED Physician Mike Yoo HPI: 07/28 04:14 This 67 yrs old Male presents to ER via EMS with complaints of cough sob. gs 04:14 The patient has shortness of breath at rest. Onset: The symptoms/episode began/occurred gs gradually, 3 day(s) ago. Duration: The symptoms are intermittent. The patient's shortness of breath is alleviated by prescription meds. Associated signs and symptoms: Pertinent positives: non-productive cough, Pertinent negatives: chest pain. Severity of symptoms: At their worst the symptoms were severe in the emergency department the symptoms are unchanged. The patient has experienced similar episodes in the past, chronically, medication noncompliant. Historical: - Allergies: 00:56 Benadryl; jb4 - Home Meds: 00:56 Metoprolol Tartrate Oral [Active]; jb4 - PMHx: 00:56 Aneurysm; BRAIN; Atrial Fib; Cancer; PROSTATE; CHF; COPD; Hypertension; Prostate Cancer;jb4 - PSHx: 00:56 prostate removal; jb4 - Immunization history:: Adult Immunizations up to date. - Social history:: Smoking status: Patient uses tobacco products, Patient/guardian denies using alcohol. - Ebola Screening: : No symptoms or risks identified at this time. ROS: 04:14 All other systems are negative. gs Exam: 04:14 Head/Face: Normocephalic, atraumatic. Eyes: Pupils equal round and reactive to light, gs extra-ocular motions intact. Lids and lashes normal. Conjunctiva and sclera are non-icteric and not injected. Cornea within normal limits. Periorbital areas with no swelling, redness, or edema. ENT: Nares patent. No nasal discharge, no septal abnormalities noted. Tympanic membranes are normal and external auditory canals are clear. Oropharynx with no redness, swelling, or masses, exudates, or evidence of obstruction, uvula midline. Mucous membranes moist. Neck: Trachea midline, no thyromegaly or masses palpated, and no cervical lymphadenopathy. Supple, full range of motion without nuchal rigidity, or vertebral point tenderness. No Meningismus. Chest/axilla: Normal chest wall appearance and motion. Nontender with no deformity. No lesions are appreciated. Cardiovascular: Regular rate and rhythm with a normal S1 and S2. No gallops, murmurs, or rubs. Normal PMI, no JVD. No pulse deficits. 04:14 Abdomen/GI: Soft, non-tender, with normal bowel sounds. No distension or tympany. No guarding or rebound. No evidence of tenderness throughout. Back: No spinal tenderness. No costovertebral tenderness. Full range of motion. Skin: Warm, dry with normal turgor. Normal color with no rashes, no lesions, and no evidence of cellulitis. MS/ Extremity: Pulses equal, no cyanosis. Neurovascular intact. Full, normal range of motion. Neuro: Awake and alert, GCS 15, oriented to person, place, time, and situation. Cranial nerves II-XII grossly intact. Motor strength 5/5 in all extremities. Sensory grossly intact. Cerebellar exam normal. Normal gait. 04:14 Constitutional: The patient appears alert, awake. 04:14 Respiratory: moderate respiratory distress is noted, Respirations: tachypnea, that is moderate, Breath sounds: rales, are located in both bases. Vital Signs: 00:56 BP 155 / 120; Pulse 96; Resp 36; Temp 97.8(O); Pulse Ox 100% on R/A; Weight 75.3 kg jb4 (R); Height 5 ft. 11 in. (180.34 cm) (R); Pain 0/10; 02:00 BP 171 / 115; Pulse 100; Resp 32; Pulse Ox 96% on R/A; jb4 02:57 BP 130 / 94; Pulse 75; Resp 36; Pulse Ox 100% on R/A; jb4 04:10 BP 135 / 90; Pulse 75; Resp 20; Pulse Ox 100% on R/A; jb4 00:56 Body Mass Index 23.15 (75.30 kg, 180.34 cm) jb4 MDM: 01:10 Patient medically screened. 04:14 Differential diagnosis: CHF exacerbation, Chronic Obstructive Pulmonary Disease gs reactive airway disease. Data reviewed: vital signs, nurses notes, lab test result(s), radiologic studies. Counseling: I had a detailed discussion with the patient and/or guardian regarding: the historical points, exam findings, and any diagnostic results supporting the discharge/admit diagnosis. Response to treatment: the patient's symptoms have markedly improved after treatment, the patient's condition has returned to base line, and as a result, I will discharge patient. 04:19 ED course: pt has rx given on multiple visits this month encouraged to get those filled. 07/28 03:41 Order name: Basic Metabolic Panel 07/28 03:41 Order name: LFT's 07/28 03:41 Order name: Magnesium 07/28 03:41 Order name: NT PRO-BNP 07/28 03:41 Order name: XRAY Chest (1 view) 07/28 03:41 Order name: ABG; Complete Time: 04:14 Administered Medications: 01:23 Drug: predniSONE 40 mg Route: PO; jb4 04:15 Follow up: Response: No adverse reaction jb4 01:23 Drug: LaSIX 40 mg Route: PO; jb4 04:16 Follow up: Response: No adverse reaction jb4 01:24 Drug: Albuterol 2.5 mg Route: Inhalation; jb4 01:45 Follow up: Response: No adverse reaction jb4 01:24 Drug: AtroVENT Aerosol 0.5 mg Route: Inhalation; jb4 01:45 Follow up: Response: No adverse reaction jb4 02:11 Drug: Metoprolol 50 mg Route: PO; jb4 04:14 Follow up: Response: No adverse reaction; Blood pressure is lowered jb4 03:06 Drug: Albuterol 2.5 mg Route: Inhalation; jb4 03:06 Drug: AtroVENT Aerosol 0.5 mg Route: Inhalation; jb4 Disposition: 07/28/18 04:18 Discharged to Home. Impression: Chronic obstructive pulmonary disease with (acute) exacerbation, Heart failure. - Condition is Stable. - Discharge Instructions: Chronic Obstructive Pulmonary Disease, Heart Failure, [id number]. - Medication Reconciliation Form, Thank You Letter, Antibiotic Education, Prescription Opioid Use form. - Follow up: Private Physician; When: 2 - 3 days; Reason: Re-evaluation by your physician. Signatures: Dispatcher [facility] Curtis Swift RN RN jb4 Mike Yoo MD MD gs Corrections: (The following items were deleted from the chart) 04:13 03:42 Cardiac monitoring ordered. jb4 04:13 03:42 EKG - Nurse/Tech ordered. jb4 04:13 03:42 IV Saline Lock ordered. jb4 04:13 03:42 Labs collected and sent ordered. jb4 04:14 03:42 Oxygen Per Protocol ordered. jb4 04:14 03:42 O2 Sat Monitoring ordered. jb4 04:16 03:42 Basic Metabolic Panel ordered. EDUT EDMS 04:16 03:42 Liver (Hepatic) Function ordered. EDMS EDMS 04:16 03:42 Magnesium ordered. EDMS EDMS 04:16 03:42 NT PRO-BNP ordered. EDMS EDMS 04:16 03:42 CBC+H.LAB.BRZ ordered. EDMS EDMS 04:16 03:42 PROTIME (+INR)+COAG.LAB.BRZ ordered. EDMS EDMS 04:16 03:42 TROPONIN (EMERG DEPT USE ONLY)+C.LAB.BRZ ordered. EDUT EDMS 04:16 04:14 NT PRO-BNP reviewed. EDMS 04:29 04:18 07/28/2018 04:18 Discharged to Home. Impression: Chronic obstructive pulmonary jb4 disease with (acute) exacerbation; Heart failure. Condition is Stable. Forms are Medication Reconciliation Form, Thank You Letter, Antibiotic Education, Prescription Opioid Use. Follow up: Private Physician; When: 2 - 3 days; Reason: Re-evaluation by your physician.
[2018-07-28 04:34] VITALS: O2SAT 100
[2018-07-28 04:36] VITALS: BP 135/90
--- NOTE | 2018-07-28 08:27 | RAD REPORT ---
EXAM DESCRIPTION: RAD - Chest Single View - 07/28/2018 4:17 am CLINICAL HISTORY: COPD, shortness of breath COMPARISON: July 04, 2018 TECHNIQUE: AP portable chest image was obtained 0403 hours . FINDINGS: No peripheral mass or consolidation. Scarring changes are present in the left midlung fiel d in the patient has an overall prominent interstitial pattern. The lung pattern is stable or less pr ominent than seen back on July 04. Cardiac silhouette is enlarged but stable from prior imaging. No s ignificant upper lung field vascular engorgement. No measurable pleural effusion and no pneumothorax. No acute bony abnormality seen. Multiple old rib fractures noted on the left No acute aortic finding s suspected. IMPRESSION: Chronic interstitial lung disease showing no suspicious change from comparison. Cardiomegaly similar to comparison. Significant failure or volume overload are not suspected. Multiple old rib fractures on the left. Rib detail is limited.
== END 2018-07-28 04:29 | disposition home or self-care (01) ==
LOC: ER 00:57
DX: J44.1 Chronic obstructive pulmonary disease with (acute) exacerbation (principal); I11.0 Hypertensive heart disease with heart failure; I50.9 Heart failure, unspecified; I48.91 Unspecified atrial fibrillation; C61 Malignant neoplasm of prostate; Z72.0 Tobacco use
CPT/HCPCS: 71045; 82805; 99284; J7512

== ENCOUNTER 2018-07-28 04:40 | Emergency (ER) | payer OTHER ==
--- OUTSIDE RECORDS SUMMARY | 2018-07-28 04:41 | XMS REPORT ---
:1950 [facility] Address [address] [place] [address] Care Team Providers Name Role Phone Unavailable [...] 1 View 2017-12-22 23:14:17 Patient: JOSTIN BURTON [facility] Date/Time12/22/2017 22:58 CDTReason for ExamCHF (Congestive [...]
--- NOTE | 2018-07-28 05:08 | ER ---
Nurse's Notes [facility] Name: Mark Terrell Age: 67 yrs Sex: Male : 1950 Arrival Date: 07/28/2018 Time: 04:42 Bed Waiting Private MD: Diagnosis: Malingerer [conscious simulation] Presentation: 07/28 04:47 Presenting complaint: pt was discharged 15 mins ago from this facility but reports he aa1 is still feeling short of breath. Had normal ABG and CXR and discharge vitals at time of release. Transition of care: patient was not received from another setting of care. Onset of symptoms was July 28, 2018. Risk Assessment: Do you want to hurt yourself or someone else? Patient reports no desire to harm self or others. Initial Sepsis Screen: Does the patient meet any 2 criteria? No. Patient's initial sepsis screen is negative. Does the patient have a suspected source of infection? No. Patient's initial sepsis screen is negative. Care prior to arrival: None. 04:47 Method Of Arrival: Ambulatory aa1 04:47 Acuity: ARIEL 5 aa1 Triage Assessment: 04:50 General: Appears in no apparent distress. comfortable, unkempt, Behavior is calm, aa1 cooperative, appropriate for age. Pain: Denies pain. 04:50 Respiratory: Airway is patent Respiratory effort is even, unlabored, Respiratory aa1 pattern is regular, symmetrical. Derm: Skin is pink, warm \T\ dry. Historical: - Allergies: 04:50 Benadryl; aa1 - Home Meds: 04:50 Metoprolol Tartrate Oral [Active]; aa1 - PMHx: 04:50 Aneurysm; BRAIN; Atrial Fib; Cancer; PROSTATE; CHF; COPD; Hypertension; Prostate Cancer;aa1 - PSHx: 04:50 prostate removal; aa1 - Immunization history:: Flu vaccine is up to date. - Social history:: Smoking status: Patient uses tobacco products, smokes one-half pack cigarettes per day. - Ebola Screening: : No symptoms or risks identified at this time. Screenin:06 Abuse screen: Denies threats or abuse. Denies injuries from another. Nutritional aa1 screening: No deficits noted. Tuberculosis screening: No symptoms or risk factors identified. Fall Risk None identified. Assessment: 04:58 Reassessment: Pt seen by Dr. Yoo and evaluated in triage. aa1 05:04 General: Appears in no apparent distress. comfortable, unkempt, Behavior is calm, aa1 cooperative, appropriate for age. Pain: Denies pain. Neuro: Level of Consciousness is awake, alert, obeys commands, Oriented to person, place, time, situation, Gait is steady, Speech is normal. Cardiovascular: Heart tones S1 S2 present Rhythm is regular. Respiratory: Reports shortness of breath at rest Airway is patent Respiratory effort is even, unlabored, Respiratory pattern is regular, symmetrical, Breath sounds are clear bilaterally. Respiratory: Reports. Derm: Skin is pink, warm \T\ dry. Vital Signs: 04:50 BP 149 / 91; Pulse 76; Resp 20; Temp 98.0; Pulse Ox 98% on R/A; aa1 05:05 Pulse 78; Resp 20; Pulse Ox 100% on R/A; aa1 ED Course: 04:42 Patient arrived in ED. es 04:50 Triage completed. aa1 04:50 Arm band placed on right wrist. Patient placed in waiting room, Patient notified of aa1 wait time. 05:05 Mike Yoo MD is Attending Physician. gs 05:06 Patient has correct armband on for positive identification. aa1 05:06 No provider procedures requiring assistance completed. Patient did not have IV access aa1 during this emergency room visit. Administered Medications: No medications were administered Outcome: 05:08 Discharge ordered by . gs 05:17 Discharged to home ambulatory. aa1 05:17 Condition: good 05:17 Discharge instructions given to patient, Instructed on discharge instructions, follow up and referral plans. Demonstrated understanding of instructions, follow-up care. 05:17 Patient left the ED. aa1 Signatures: Marian Rangel RN RN aa1 Grace Abreu Gregory, MD MD
--- NOTE | 2018-07-28 05:08 | EDPHYS ---
Physician Documentation [facility] Name: Mark Terrell Age: 67 yrs Sex: Male : 1950 Arrival Date: 07/28/2018 Time: 04:42 Bed Waiting Private MD: ED Physician Mike Yoo HPI: 07/28 05:05 pt check back in after being discharged pt has stable vital signs exam unchanged pt has gs no where to go so wants to come back to be admitted notified he did not meet condition, pt is stable and condition unchanged from discharge 15 minutes ago. Historical: - Allergies: 04:50 Benadryl; aa1 - Home Meds: 04:50 Metoprolol Tartrate Oral [Active]; aa1 - PMHx: 04:50 Aneurysm; BRAIN; Atrial Fib; Cancer; PROSTATE; CHF; COPD; Hypertension; Prostate Cancer;aa1 - PSHx: 04:50 prostate removal; aa1 - Immunization history:: Flu vaccine is up to date. - Social history:: Smoking status: Patient uses tobacco products, smokes one-half pack cigarettes per day. - Ebola Screening: : No symptoms or risks identified at this time. Exam: 05:05 Cardiovascular: Regular rate and rhythm with a normal S1 and S2. No gallops, murmurs, gs or rubs. Normal PMI, no JVD. No pulse deficits. Respiratory: Lungs have equal breath sounds bilaterally, clear to auscultation and percussion. No rales, rhonchi or wheezes noted. No increased work of breathing, no retractions or nasal flaring. Skin: Warm, dry with normal turgor. Normal color with no rashes, no lesions, and no evidence of cellulitis. Neuro: Awake and alert, GCS 15, oriented to person, place, time, and situation. Cranial nerves II-XII grossly intact. Motor strength 5/5 in all extremities. Sensory grossly intact. Cerebellar exam normal. Normal gait. 05:05 Constitutional: The patient appears in no acute distress, alert, awake. Vital Signs: 04:50 BP 149 / 91; Pulse 76; Resp 20; Temp 98.0; Pulse Ox 98% on R/A; aa1 05:05 Pulse 78; Resp 20; Pulse Ox 100% on R/A; aa1 MDM: 05:05 Data reviewed: vital signs, nurses notes. 05:08 Patient medically screened. Administered Medications: No medications were administered Disposition: 07/28/18 05:08 Discharged to Home. Impression: Malingerer [conscious simulation]. - Condition is Stable. - Medication Reconciliation Form, Thank You Letter, Antibiotic Education, Prescription Opioid Use form. - Follow up: Private Physician; When: 2 - 3 days; Reason: Re-evaluation by your physician. Signatures: Marian Rangel RN RN aa1 Mike Yoo MD MD Corrections: (The following items were deleted from the chart) 05:17 05:08 07/28/2018 05:08 Discharged to Home. Impression: Malingerer [conscious aa1 simulation]. Condition is Stable. Forms are Medication Reconciliation Form, Thank You Letter, Antibiotic Education, Prescription Opioid Use. Follow up: Private Physician; When: 2 - 3 days; Reason: Re-evaluation by your physician.
[2018-07-28 05:23] VITALS: BP 149/91; TEMP 98
[2018-07-28 05:24] VITALS: O2SAT 100
== END 2018-07-28 05:17 | disposition home or self-care (01) ==
LOC: ER 04:40
DX: I50.43 Acute on chronic combined systolic (congestive) and diastolic (congestive) heart failure (principal); C61 Malignant neoplasm of prostate; J44.9 Chronic obstructive pulmonary disease, unspecified; I48.91 Unspecified atrial fibrillation; E78.5 Hyperlipidemia, unspecified; E11.9 Type 2 diabetes mellitus without complications; Z72.0 Tobacco use
CPT/HCPCS: 99281

== ENCOUNTER 2018-07-30 23:48 | Emergency (ER) | payer OTHER ==
--- OUTSIDE RECORDS SUMMARY | 2018-07-30 23:50 | XMS REPORT ---
:1950 Author Organization [facility] Address [address] [place] [address] Care Team Providers Name Role Phone Unavailable [...] 1 View 2017-12-22 23:14:17 Patient: JOSTIN BURTON [facility] Date/Time12/22/2017 22:58 CDTReason for ExamCHF (Congestive [...]
[2018-07-31] MEDS ORDERED: FUROSEMIDE 40 MG/4 ML VIAL ONE (00:31)
[2018-07-31] MEDS ORDERED: MAGNESIUM SULFATE 1 gm IVPB 1 GM/100 ML BAG IV ONE (00:31)
[2018-07-31] MEDS ORDERED: METHYLPREDNISOLONE 125 MG INJ ONE (00:31)
[2018-07-31] MEDS ORDERED: LEVALBUTEROL 1.25 MG/3 ML NEB ONE ×3 (00:31→03:38)
[2018-07-31 00:42] LABS: Absolute Lymphocytes (CBC) 2.3 K/uL (0.7-4.9); Absolute Monocytes 1.4 K/uL (0.1-1.3); Absolute Neutrophil 6.6 K/uL (1.8-8.0); Hematocrit 33.9 % (39.6-49.0); Lymphocytes % 21.4 % (15.3-44.8); MPV 9.1 fL (7.6-11.3); Monocytes % 13.5 % (3.3-12.3); RBC Red Blood Cell Count 5.71 M/uL (4.33-5.43)
[2018-07-31 00:56] LABS: Potassium 3.8 mmol/L (3.5-5.1)
[2018-07-31 01:34] LABS: Anisocytosis 1+; Blood Morphology Comment NOTED (NOT SEEN); Hypochromasia 1+; Platelet Estimate ADEQ; Urine White Blood Cell Casts OK
[2018-07-31] MEDS ORDERED: FUROSEMIDE 20 MG/ 2ML VIAL ONE (02:23)
--- NOTE | 2018-07-31 03:14 | ER ---
Nurse's Notes [facility] Name: Mark Terrell Age: 67 yrs Sex: Male : 1950 Arrival Date: 07/30/2018 Time: 23:53 Bed 25 Private MD: Diagnosis: Chronic obstructive pulmonary disease with (acute) exacerbation;Pulmonary edema Presentation: 07/30 23:54 Presenting complaint: EMS states: Patient complaint of shortness of breath; Hx of COPD, lp1 unable to get inhalers; Respirations labored, O2 94% on RA; Breathing treatment given with relief. Transition of care: patient was not received from another setting of care. Onset of symptoms was July 30, 2018. Risk Assessment: Do you want to hurt yourself or someone else? Patient reports no desire to harm self or others. Initial Sepsis Screen: Does the patient meet any 2 criteria? No. Patient's initial sepsis screen is negative. Does the patient have a suspected source of infection? No. Patient's initial sepsis screen is negative. Care prior to arrival: Medication(s) given: Albuterol Neb x 1, Atrovent Neb x 1. 23:54 Method Of Arrival: EMS: [facility] lp1 23:54 Acuity: ARIEL 3 lp1 Triage Assessment: 23:59 General: Appears unkempt, Behavior is cooperative. Neuro: Reports headache. lp1 Cardiovascular: Edema is 3+ to left foot and right foot. Respiratory: Reports shortness of breath Respiratory effort is labored, Onset: The symptoms/episode began/occurred gradually, the patient has mild shortness of breath. Historical: - Allergies: 23:58 Benadryl; lp1 - Home Meds: 23:58 None [Active]; lp1 - PMHx: 23:58 Aneurysm; BRAIN; Atrial Fib; Cancer; PROSTATE; CHF; COPD; Hypertension; Prostate Cancer;lp1 - PSHx: 23:58 Prostate removal; lp1 - Immunization history:: Adult Immunizations unknown. - Social history:: Smoking status: Patient uses tobacco products, denies chronic smoking, but will smoke occasionally. - Ebola Screening: : No symptoms or risks identified at this time. - Family history:: not pertinent. - Hospitalizations: : No recent hospitalization is reported. Screenin:58 Abuse screen: Denies threats or abuse. Denies injuries from another. Nutritional lp1 screening: No deficits noted. Tuberculosis screening: No symptoms or risk factors identified. Fall Risk None identified. Assessment: 23:55 General: Appears in no apparent distress. comfortable, Behavior is calm, cooperative, ca1 appropriate for age. Pain: Complains of pain in right foot and left foot Pain does not radiate. Pain currently is 7 out of 10 on a pain scale. Neuro: Level of Consciousness is awake, alert, obeys commands, Oriented to person, place, time, situation. Cardiovascular: Heart tones S1 S2 present Capillary refill < 3 seconds Patient's skin is warm and dry. Rhythm is sinus rhythm. Respiratory: Reports shortness of breath Airway is patent Respiratory effort is even, unlabored, Respiratory pattern is regular, symmetrical, Breath sounds are clear bilaterally. GI: Abdomen is flat, non-distended, Bowel sounds present X 4 quads. Abd is soft and non tender X 4 quads. : No deficits noted. No signs and/or symptoms were reported regarding the genitourinary system. EENT: No deficits noted. No signs and/or symptoms were reported regarding the EENT system. Derm: Skin is intact, is healthy with good turgor, Skin is pink, warm \T\ dry. Musculoskeletal: Circulation, motion, and sensation intact. Capillary refill < 3 seconds, Swelling present in right leg and left leg. 07/31 00:50 Reassessment: Patient appears in no apparent distress at this time. Patient and/or ca1 family updated on plan of care and expected duration. Pain level reassessed. Patient is alert, oriented x 3, equal unlabored respirations, skin warm/dry/pink. 02:42 Reassessment: Patient appears in no apparent distress at this time. Patient and/or mg2 family updated on plan of care and expected duration. Pain level reassessed. Patient is alert, oriented x 3, equal unlabored respirations, skin warm/dry/pink. Patient states feeling better. Vital Signs: 07/30 23:55 BP 159 / 96; Pulse 96; Resp 22; Temp 97.7(O); Pulse Ox 96% on R/A; Weight 75.3 kg; lp1 Height 5 ft. 11 in. (180.34 cm); Pain 7/10; 07/31 00:50 BP 149 / 113; Pulse 94; Resp 22; Temp 98(O); Pulse Ox 97% on R/A; ca1 01:44 BP 150 / 110; Pulse 95; Resp 18; Temp 98; Pulse Ox 95% on 2 lpm NC; mg2 02:12 BP 152 / 93; Pulse 95; Resp 18; Temp 98; Pulse Ox 98% on 2 lpm NC; Pain 0/10; mg2 02:40 BP 151 / 87; Pulse 95; Resp 19; Temp 98.1(O); Pulse Ox 95% on 2 lpm NC; Pain 0/10; mg2 03:37 BP 158 / 89; Pulse 90; Resp 18; Temp 98.2; Pulse Ox 96% on R/A; mg2 07/30 23:55 Body Mass Index 23.15 (75.30 kg, 180.34 cm) lp1 ED Course: 07/30 00:03 No provider procedures requiring assistance completed. Inserted saline lock: 20 gauge ca1 in right antecubital area, using aseptic technique. Blood collected. 23:53 Patient arrived in ED. lp1 23:55 Triage completed. lp1 23:55 Arm band placed on left wrist. lp1 23:57 Ryan Vasquez MD is Attending Physician. rn 07/31 00:00 Patient has correct armband on for positive identification. Placed in gown. Bed in low lp1 position. gasoline tester on. Pulse ox on. NIBP on. 00:12 Sameera Contreras, LASHAY is Primary Nurse. ca1 00:17 X-ray completed. Portable x-ray completed in exam room. Patient tolerated procedure kw well. 00:20 XRAY Chest (1 view) In Process Unspecified. EDMS 03:37 IV discontinued, intact, bleeding controlled, No redness/swelling at site. Pressure mg2 dressing applied. Administered Medications: 00:05 Drug: SOLU-Medrol 125 mg Route: IVP; Site: right antecubital; ca1 01:02 Follow up: Response: No adverse reaction ca1 00:05 Drug: Xopenex (3) 1.25 mg Route: Inhalation; ca1 00:10 Drug: Lasix 40 mg Route: IVP; Site: right antecubital; ca1 01:01 Follow up: Urine output 550 ml; Response: No adverse reaction ca1 00:15 Drug: Magnesium Sulfate 1 grams Route: IVPB; Infused Over: 1 hrs; Site: right ca1 antecubital; 03:25 Follow up: Response: No adverse reaction; IV Status: Completed infusion mg2 02:12 Drug: Lasix 20 mg Route: IVP; Site: right antecubital; mg2 03:25 Follow up: Response: No adverse reaction; Marked relief of symptoms mg2 03:25 Drug: Xopenex 1.25 mg Route: Inhalation; mg2 03:37 Follow up: Response: No adverse reaction; Marked relief of symptoms mg2 03:25 Drug: AtroVENT Aerosol 0.5 mg Route: Inhalation; mg2 03:37 Follow up: Response: No adverse reaction; Marked relief of symptoms mg2 Output: 00:50 Urine: 550ml (Voided); Total: 550ml. ca1 01:01 Urine: 550ml; Total: 1100ml. ca1 01:34 Urine: 500ml (Voided); Total: 1600ml. mg2 02:12 Urine: 600ml (Voided); Total: 2200ml. mg2 02:41 Urine: 950ml (Voided); Total: 3150ml. mg2 03:30 Urine: 1200ml (Voided); Total: 4350ml. mg2 Outcome: 03:13 Discharge ordered by . rn 03:38 Discharged to home ambulatory. mg2 03:38 Condition: stable 03:38 Discharge instructions given to patient, Instructed on discharge instructions, follow up and referral plans. medication usage, Demonstrated understanding of instructions, follow-up care, medications, Prescriptions given X 2. 03:38 Patient left the ED. mg2 Signatures: Dispatcher [employer] EDMS Ryan Vasquez MD MD rn Whitley, Kimberlee kw Pena, Laura, RN RN lp1 Sidney Kerr RN RN mg2 Sameera Contreras RN RN ca1 Corrections: (The following items were deleted from the chart) 00:28 00:01 Lasix 40 mg IVP in right antecubital ca1 ca1 00:29 00:05 Lasix 40 mg IVP in right antecubital ca1 ca1 00:50 05/30 23:55 Musculoskeletal: Circulation, motion, and sensation intact. Capillary ca1 refill < 3 seconds, ca1
--- NOTE | 2018-07-31 03:14 | EDPHYS ---
Physician Documentation [facility] Name: Mark Terrell Age: 67 yrs Sex: Male : 1950 Arrival Date: 07/30/2018 Time: 23:53 Bed 25 Private MD: ED Physician Ryan Vasquez HPI: 07/31 00:16 This 67 yrs old Male presents to ER via EMS with complaints of Shortness Of rn Breath. 00:16 The patient has shortness of breath with light activity. Onset: The symptoms/episode rn began/occurred at an unknown time. Duration: The symptoms are intermittent. The patient's shortness of breath is aggravated by exertion, light activity. Severity of symptoms: At their worst the symptoms were mild in the emergency department the symptoms are unchanged. The patient has experienced similar episodes in the past. The patient has not recently seen a physician. REports began with sob and non-productive cough, takes medication only intermittently, no fever, + swelling of legs. No chest pain.. Historical: - Allergies: 07/30 23:58 Benadryl; lp1 - Home Meds: 23:58 None [Active]; lp1 - PMHx: 23:58 Aneurysm; BRAIN; Atrial Fib; Cancer; PROSTATE; CHF; COPD; Hypertension; Prostate Cancer;lp1 - PSHx: 23:58 Prostate removal; lp1 - Immunization history:: Adult Immunizations unknown. - Social history:: Smoking status: Patient uses tobacco products, denies chronic smoking, but will smoke occasionally. - Ebola Screening: : No symptoms or risks identified at this time. - Family history:: not pertinent. - Hospitalizations: : No recent hospitalization is reported. ROS: 07/31 00:16 Constitutional: Negative for fever, chills, and weight loss, Eyes: Negative for injury, rn pain, redness, and discharge, Neck: Negative for injury, pain, and swelling, Cardiovascular: Negative for chest pain, palpitations, + edema Respiratory: Negative for wheezing, and pleuritic chest pain, + sob and non-productive cough Abdomen/GI: Negative for abdominal pain, nausea, vomiting, diarrhea, and constipation, MS/Extremity: Negative for injury and deformity, Skin: Negative for injury, rash, and discoloration, Neuro: Negative for headache, weakness, numbness, tingling, and seizure. Exam: 00:16 Constitutional: This is a well developed, well nourished patient who is awake, alert, rn smiling and joking, not in respiratory distress Head/Face: Normocephalic, atraumatic. ENT: MMM, no stridor Cardiovascular: Regular rate and rhythm, distal pulses equal Respiratory: + mild tachypnea, speaking full sentences, + exp wheezing noted bialterally. NO retractions. Abdomen/GI: soft, non-tender MS/ Extremity: Pulses equal, no cyanosis. Neurovascular intact. Full, normal range of motion. Equal circumference. 2+ pitting edema bilateral lower ext. Neuro: Awake and alert, GCS 15, oriented to person, place, time, and situation. Cranial nerves II-XII grossly intact. Motor strength 5/5 in all extremities. Sensory grossly intact. Cerebellar exam normal. Vital Signs: 07/30 23:55 BP 159 / 96; Pulse 96; Resp 22; Temp 97.7(O); Pulse Ox 96% on R/A; Weight 75.3 kg; lp1 Height 5 ft. 11 in. (180.34 cm); Pain 7/10; 07/31 00:50 BP 149 / 113; Pulse 94; Resp 22; Temp 98(O); Pulse Ox 97% on R/A; ca1 01:44 BP 150 / 110; Pulse 95; Resp 18; Temp 98; Pulse Ox 95% on 2 lpm NC; mg2 02:12 BP 152 / 93; Pulse 95; Resp 18; Temp 98; Pulse Ox 98% on 2 lpm NC; Pain 0/10; mg2 02:40 BP 151 / 87; Pulse 95; Resp 19; Temp 98.1(O); Pulse Ox 95% on 2 lpm NC; Pain 0/10; mg2 03:37 BP 158 / 89; Pulse 90; Resp 18; Temp 98.2; Pulse Ox 96% on R/A; mg2 07/30 23:55 Body Mass Index 23.15 (75.30 kg, 180.34 cm) lp1 MDM: 07/30 23:57 Patient medically screened. rn 07/31 03:08 Differential diagnosis: CHF exacerbation, Chronic Obstructive Pulmonary Disease rn pulmonary edema. Data reviewed: vital signs, nurses notes, lab test result(s), radiologic studies, and as a result, I will discharge patient. Counseling: I had a detailed discussion with the patient and/or guardian regarding: the historical points, exam findings, and any diagnostic results supporting the discharge/admit diagnosis, lab results, radiology results, the need for outpatient follow up, to return to the emergency department if symptoms worsen or persist or if there are any questions or concerns that arise at home. Response to treatment: the patient's symptoms have markedly improved after treatment, and as a result, I will discharge patient. Special discussion: I discussed with the patient/guardian in detail that at this point there is no indication for admission to the hospital. It is understood, however, that if the symptoms persist or worsen the patient needs to return immediately for re-evaluation. 03:16 ED course: States has lasix, just hasn't been taking regularly. . rn 07/30 23:58 Order name: CBC with Diff; Complete Time: 01:53 rn 07/30 23:58 Order name: Basic Metabolic Panel; Complete Time: 01:53 rn 07/30 23:58 Order name: XRAY Chest (1 view) rn 07/30 23:58 Order name: N-Terminal Pro-brain Natriuretic Peptide; Complete Time: 01:53 rn 07/31 01:35 Order name: CBC Smear Scan; Complete Time: 01:53 EDMS 07/30 23:58 Order name: IV Start; Complete Time: 00:26 rn 07/30 23:58 Order name: EKG; Complete Time: 23:59 rn 07/30 23:58 Order name: EKG - Nurse/Tech; Complete Time: 00:45 rn Administered Medications: 00:05 Drug: SOLU-Medrol 125 mg Route: IVP; Site: right antecubital; ca1 01:02 Follow up: Response: No adverse reaction ca1 00:05 Drug: Xopenex (3) 1.25 mg Route: Inhalation; ca1 00:10 Drug: Lasix 40 mg Route: IVP; Site: right antecubital; ca1 01:01 Follow up: Urine output 550 ml; Response: No adverse reaction ca1 00:15 Drug: Magnesium Sulfate 1 grams Route: IVPB; Infused Over: 1 hrs; Site: right ca1 antecubital; 03:25 Follow up: Response: No adverse reaction; IV Status: Completed infusion mg2 02:12 Drug: Lasix 20 mg Route: IVP; Site: right antecubital; mg2 03:25 Follow up: Response: No adverse reaction; Marked relief of symptoms mg2 03:25 Drug: Xopenex 1.25 mg Route: Inhalation; mg2 03:37 Follow up: Response: No adverse reaction; Marked relief of symptoms mg2 03:25 Drug: AtroVENT Aerosol 0.5 mg Route: Inhalation; mg2 03:37 Follow up: Response: No adverse reaction; Marked relief of symptoms mg2 Disposition: 07/31/18 03:13 Discharged to Home. Impression: Chronic obstructive pulmonary disease with (acute) exacerbation, Pulmonary edema. - Condition is Stable. - Discharge Instructions: Pulmonary Edema, Chronic Obstructive Pulmonary Disease Exacerbation. - Prescriptions for Prednisone 20 mg Oral Tablet - take 3 tablet by ORAL route once daily for 5 days; 15 tablet. Albuterol Sulfate 90 mcg/actuation - inhale 1-2 puff by INHALATION route every 4-6 hours; 1 Inhaler. - Medication Reconciliation Form, Thank You Letter, Antibiotic Education, Prescription Opioid Use form. - Follow up: Private Physician; When: As needed; Reason: Recheck today's complaints, Re-evaluation by your physician. - Problem is an acute exacerbation. - Symptoms have improved. Signatures: Dispatcher [employer] EDMS Ryan Vasquez MD MD rn Pena, Laura, RN RN lp1 Sidney Kerr RN RN mg2 Sameera Contreras RN RN ca1 Corrections: (The following items were deleted from the chart) 03:38 03:13 07/31/2018 03:13 Discharged to Home. Impression: Chronic obstructive pulmonary mg2 disease with (acute) exacerbation; Pulmonary edema. Condition is Stable. Forms are Medication Reconciliation Form, Thank You Letter, Antibiotic Education, Prescription Opioid Use. Follow up: Private Physician; When: As needed; Reason: Recheck today's complaints, Re-evaluation by your physician. Problem is an acute exacerbation. Symptoms have improved. rn
[2018-07-31] MEDS ORDERED: IPRATROPIUM BROM 0.5MG/2.5ML ONE (03:38)
[2018-07-31] MEDS ORDERED: DICYCLOMINE HCL 10 MG CAP ONE (03:55)
[2018-07-31 04:07] VITALS: BP 158/89; TEMP 98.2; O2SAT 96
--- NOTE | 2018-07-31 08:38 | EKG ---
Test Date: 2018-07-31 Test Time: 00:43:13 Teacher Home Therapy: [facility] MEASUREMENT RESULTS: Intervals: Rate: 94 NM: 150 QRSD: 112 QT: 402 QTc: 502 [place]: P: 75 NM: 150 QRS: 87 T: 25 INTERPRETIVE STATEMENTS: Sinus rhythm with occasional premature ventricular complexes Prolonged QT Abnormal ECG Compared to ECG 07/03/2018 19:09:11 Ventricular premature complex(es) now present Prolonged QT interval now present Sinus tachycardia no longer present Atrial abnormality no longer present Electronically Signed On 07-31-18 08:37:16 CDT by Jitendra Willams
--- NOTE | 2018-07-31 08:48 | RAD REPORT ---
EXAM DESCRIPTION: RAD - Chest Single View - 07/31/2018 12:20 am CLINICAL HISTORY: Cough;Dyspnea Chest pain. COMPARISON: Chest Single View dated 07/28/2018; Chest Single View dated 07/04/2018; Chest Pa And Lat (2 Views) dated 07/04/2018; Chest Single View dated 07/03/2018 FINDINGS: Portable technique limits examination quality. Mild interstitial pulmonary edema. The heart is moderately enlarged. Left posterior rib fractures, he aled. IMPRESSION: Mild CHF.
== END 2018-07-31 03:38 | disposition home or self-care (01) ==
LOC: ER 23:48
DX: J44.1 Chronic obstructive pulmonary disease with (acute) exacerbation (principal); J81.1 Chronic pulmonary edema; I10 Essential (primary) hypertension; Z72.0 Tobacco use; Z85.46 Personal history of malignant neoplasm of prostate
CPT/HCPCS: 96365; 93005; 85025; 80048; 36415; 83880; 71045; 96375; 99285; 96366; J1940 ×2; J3475; J2930

== ENCOUNTER 2018-08-02 17:02 | Emergency (ER) | payer OTHER ==
--- OUTSIDE RECORDS SUMMARY | 2018-08-02 17:04 | XMS REPORT ---
:1950 Author Organization [facility] Address [address] [place] [address] Care Team Providers Name Role Phone Unavailable [...] 1 View 2017-12-22 23:14:17 Patient: JOSTIN BURTON [facility] Date/Time12/22/2017 22:58 CDTReason for ExamCHF (Congestive Heart [...]
[2018-08-02 17:32] LABS: Protime INR 1.3
[2018-08-02] MEDS ORDERED: FUROSEMIDE 40 MG/4 ML VIAL ONE ×2 (17:34→19:19)
[2018-08-02] MEDS ORDERED: LEVALBUTEROL 1.25 MG/3 ML NEB ONE (17:34)
[2018-08-02 17:40] LABS: Absolute Lymphocytes (CBC) 2.6 K/uL (0.7-4.9); Absolute Monocytes 1.4 K/uL (0.1-1.3); Absolute Neutrophil 8.1 K/uL (1.8-8.0); Basophils % 0.7 % (0-1.3); Eosinophils % 2.4 % (0-4.4); Hematocrit 34.1 % (39.6-49.0); Lymphocytes % 20.9 % (15.3-44.8); MPV 9.2 fL (7.6-11.3); Monocytes % 11.3 % (3.3-12.3); RBC Red Blood Cell Count 5.78 M/uL (4.33-5.43)
[2018-08-02 17:48] LABS: Albumin 3.2 g/dL (3.4-5.0); Bilirubin Direct 0.3 mg/dL (0-0.2); Bilirubin Total 0.7 mg/dL (0.2-1.0); Potassium 4.3 mmol/L (3.5-5.1); Protein, Total 6.2 g/dL (6.4-8.2); Troponin (Emerg Dept Use Only) 0.07 ng/mL (0.0-0.045)
--- NOTE | 2018-08-02 17:49 | RAD REPORT ---
EXAM DESCRIPTION: Neo Single View08/02/2018 5:38 pm CLINICAL HISTORY: Shortness of breath COMPARISON: July 31 FINDINGS: [id number] bilateral pulmonary opacities. Heart moderately enlarged Subacute left rib fractures IMPRESSION: Mild to moderate CHF
[2018-08-02 18:04] LABS: Urine White Blood Cell Casts OK
[2018-08-02 18:05] LABS: Anisocytosis 1+; Blood Morphology Comment NOTED (NOT SEEN); Hypochromasia 1+; Platelet Estimate ADEQ
[2018-08-02 18:38] LABS: Arterial Blood Carboxyhemoglob 1.9 % (0-1.5); Blood O2 Saturation 88.2 % (92-98.5)
[2018-08-02] MEDS ORDERED: IPRATROPIUM BROM 0.5MG/2.5ML ONE (20:14)
[2018-08-02] MEDS ORDERED: ALBUTEROL 2.5 MG/3 ML NEB SOL ONE (20:14)
[2018-08-02] MEDS ORDERED: NITROGLYCERIN 1 GM PKT TD ONE (20:31)
--- NOTE | 2018-08-02 21:48 | P.CNS ---
Date of Consult: 08/02/18 Reason for Consult: dyspnea Requesting Physician: Jaime Hough Chief Complaint: SOB History of Present Illness: Mr Terrell is a 67 years old male with multiple medical problems, including HTN , DM II, COPD, CAD, chronic combined systolic and diastolic CHF, non-compliance with his treatment, frequent visit to ER due to dyspnea. Came once again, complaining of progressive SOB. No history of fever, chills or increasing cough. He denied chest pain, dizziness or diaphoresis. At arrival, he was tacypneic, RR 34, HR 103, BP 157/105, afebrile, O2 sat 96% on RA. CXR bilateral infiltrate consistent with mild to moderate CHF. Allergies poison chandana extract Allergy (Intermediate, Verified 06/28/18 01:19) Hives diphenhydramine HCl [From Benadryl] Adverse Reaction (Intermediate, Verified 01:19) Hives Home medications list reviewed: Yes (non-compiance) Home Medications: Albuterol Sulfate [Proair Hfa] 2 puff IH TID PRN #1 [id number].[email or web address] 07/04/18 Furosemide [Lasix*] 40 mg PO BIDL #60 tab 07/04/18 Lisinopril [Prinivil*] 10 mg PO DAILY #30 tab 07/04/18 Metoprolol Tartrate [Lopressor*] 25 mg PO BID 6AM 6PM #60 tab 07/04/18 Mometasone/Formoterol [Dulera 100 Mcg/5 Mcg Inhaler] 2 puff IH BID #1 inhaler - Past Medical/Surgical History Diabetic: Yes -: History of prostate cancer -: Hypertension -: History of brain aneurysm requiring surgery -: CHF, systolic dysfunction -: COPD -: Tobacco abuse -: DM 2 -: Coronary disease, stents x3 to LAD/RCA(Feb 2016) -: Anemia of chronic disease -: GERD -: Hyperlipidemia -: hyperlipidemia -: Prostate surgery -: Brain aneurysm surgery -: Toe surgery R. great toe/childhood -: Heart catheterization-3stents LAD/RCA Psychosocial/ Personal History: Patient is homeless. He is single. He has no children. 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 - Family History Father Medical History: Cancer Notes: brain cancer Mother Medical History: Cancer Notes: pancreatic cancer Brother Medical History: Cancer Notes: lung cancer - Social History Smoking Status: Current some day smoker Alcohol use: No CD- Drugs: No Caffeine use: Yes Place of Residence: [facility] Review of Systems 10-point ROS is otherwise unremarkable Physical Examination General: Alert, In no apparent distress HEENT: Atraumatic, PERRLA, Mucous membr. moist/pink, EOMI, Sclerae nonicteric Neck: Supple, 2+ carotid pulse no bruit, No LAD, Without JVD or thyroid abnormality Respiratory: Diminished, Crackles/rales (bibasilar rales) Cardiovascular: Normal S1 S2, No gallops Gastrointestinal: Normal bowel sounds, No tenderness Musculoskeletal: No tenderness Integumentary: No rashes Neurological: Normal speech, Normal tone, Normal affect Lymphatics: No axilla or inguinal lymphadenopathy Laboratory Data (last 24 hrs) 08/02/18 17:05: PT 15.2 H, INR 1.30 08/02/18 17:05: WBC 12.5 H D, Hgb 9.7 L, Hct 34.1 L, Plt Count 181 08/02/18 17:05: Sodium 140, Potassium 4.3, BUN 29 H, Creatinine 1.24, Glucose 153 H, Magnesium 2.0, Total Bilirubin 0.7, AST 22, ALT 27, Alkaline Phosphatase 101 - Problems (1) Elevated troponin Onset Date: 03/31/17 Current Visit: No Status: Acute (2) CAD (coronary artery disease) Current Visit: No Status: Chronic Qualifiers: Coronary Disease-Associated Artery/Lesion type: bypass graft, autologous vein Associated angina: without angina Qualified Code(s): I25.810 - Atherosclerosis of coronary artery bypass graft(s) without angina pectoris (3) Tobacco abuse Onset Date: 02/05/16 Current Visit: No Status: Chronic (4) Type 2 diabetes mellitus Onset Date: 12/10/16 Current Visit: No Status: Chronic Qualifiers: Diabetes mellitus [facility] insulin use: without ad terminal makeup operator use Diabetes mellitus complication status: with unspecified complications Qualified Code(s) : E11.8 - Type 2 diabetes mellitus with unspecified complications (5) Acute on chronic combined systolic and diastolic CHF (congestive heart failure) Onset Date: 03/31/17 Current Visit: No Status: Resolved Conclusions/Impression: The patient was treated with IV Furosemide, Nitro Patch and was placed on BiPAP. Gradually his symptoms have improved. He is actually at his baseline. Once again, recommend to be compliance with his medical treatment in order to avoid frequent visits to ER. He is clinically stable to be discharge. Thanks for the consult. Critical Care: No Time Spent Managing Pts care (In Minutes): 60
--- NOTE | 2018-08-02 21:55 | ER ---
Nurse's Notes [facility] Name: Mark Terrell Age: 67 yrs Sex: Male : 1950 Arrival Date: 08/02/2018 Time: 17:03 Bed Treatment Private MD: Diagnosis: Acute on chronic combined systolic (congestive) and diastolic (congestive) heart failure Presentation: 08/02 17:01 Presenting complaint: EMS states: called out for SOB and wheezing. EMS gave A\T\A tx, BP sv 185/127, HR-105 96% RA. Transition of care: patient was not received from another setting of care. Onset of symptoms was August 02, 2018. Risk Assessment: Do you want to hurt yourself or someone else? Patient reports no desire to harm self or others. Initial Sepsis Screen: Does the patient meet any 2 criteria? RR > 20 per min. HR > 90 bpm. Yes Does the patient have a suspected source of infection? Yes: Productive cough/pneumonia If YES to both, name of provider notified: Jaime ADAMES. Care prior to arrival: Medication(s) given: Albuterol Neb x 1, Atrovent Neb x 1. 17:01 Method Of Arrival: EMS: [facility] sv 17:01 Acuity: ARIEL 2 sv Triage Assessment: 17:01 General: Appears in no apparent distress. uncomfortable, unkempt, Behavior is sv cooperative, appropriate for age, anxious. Pain: Denies pain. Neuro: Level of Consciousness is awake, alert, obeys commands, Oriented to person, place, time, situation, Moves all extremities. Full function Speech is normal. Cardiovascular: Patient's skin is warm and dry. Pulses are 2+ in right radial artery and left radial artery Rhythm is sinus tachycardia. Respiratory: Reports shortness of breath at rest on exertion labored breathing Airway is patent Respiratory effort is labored, shallow, Respiratory pattern is symmetrical, tachypnea Breath sounds with wheezes bilaterally. the patient has moderate shortness of breath. Derm: Skin is normal. Historical: - Allergies: 17:32 Benadryl; sv - PMHx: 17:32 Aneurysm; BRAIN; Atrial Fib; Cancer; PROSTATE; CHF; COPD; Hypertension; Prostate Cancer;sv - PSHx: 17:32 Prostate removal; sv - Immunization history:: Adult Immunizations up to date. - Ebola Screening: : No symptoms or risks identified at this time. - Social history:: Smoking status: Patient uses tobacco products, smokes one-half pack cigarettes per day. Screenin:32 Abuse screen: Denies threats or abuse. Denies injuries from another. Nutritional sv screening: No deficits noted. Tuberculosis screening: No symptoms or risk factors identified. Fall Risk None identified. Assessment: 17:11 Reassessment: code sepsis called. ss 17:47 Reassessment: Pt wanting BIPAP off because it is giving him a headache. BIPAP removed, sv O2 sat at 95%. Informed Jaime ADAMES. 17:58 Reassessment: Patient appears in no apparent distress at this time. No changes from sv previously documented assessment. Patient and/or family updated on plan of care and expected duration. Pain level reassessed. Patient is alert, oriented x 3, equal unlabored respirations, skin warm/dry/pink. 19:10 General: Appears in no apparent distress. comfortable, Behavior is calm, cooperative, tl2 appropriate for age. General: Pt is 98% on RA, RR even and unlabored. . Pain: Denies pain. Neuro: Level of Consciousness is awake, alert, obeys commands, Oriented to person, place, time, situation. Cardiovascular: Denies chest pain. Respiratory: Reports shortness of breath cough that is Airway is patent Respiratory effort is even, relaxed, Respiratory pattern is regular, symmetrical, Breath sounds with wheezes bilaterally. GI: No signs and/or symptoms were reported involving the gastrointestinal system. : No signs and/or symptoms were reported regarding the genitourinary system. Derm: Skin is pink, warm \T\ dry. 20:10 Reassessment: Patient appears in no apparent distress at this time. Patient and/or tl2 family updated on plan of care and expected duration. Pain level reassessed. Patient is alert, oriented x 3, equal unlabored respirations, skin warm/dry/pink. Dr. Aden at bedside, stated he would like to observe pt for 2 more hours. 21:02 Reassessment: Patient appears in no apparent distress at this time. Patient and/or tl2 family updated on plan of care and expected duration. Pain level reassessed. Patient is alert, oriented x 3, equal unlabored respirations, skin warm/dry/pink. Patient states symptoms have improved. 21:42 Reassessment: Patient appears in no apparent distress at this time. Patient and/or tl2 family updated on plan of care and expected duration. Pain level reassessed. Patient is alert, oriented x 3, equal unlabored respirations, skin warm/dry/pink. Patient states feeling better. Patient states symptoms have improved. 22:13 Reassessment: pt is homeless and does not have family. Will keep in room 11 until bus tl2 comes in the morning. Pt verbalized understanding of discharge instructions and need for follow up and prescription usage. Vital Signs: 17:20 BP 157 / 108; Pulse 103; Resp 34; Temp 98.4; Pulse Ox 98% on R/A; Weight 80 kg (R); sv Height 5 ft. 11 in. (180.34 cm); Pain 0/10; 17:57 BP 172 / 119; Pulse 117; Resp 30; Pulse Ox 99% on R/A; sv 18:50 BP 170 / 116; Pulse 108; Resp 18; Pulse Ox 99% on R/A; sv 19:07 BP 163 / 117; Pulse 113; Resp 22; Pulse Ox 100% on R/A; tl2 19:43 BP 148 / 96; Pulse 105; Resp 27; Pulse Ox 99% on R/A; tl2 20:36 BP 167 / 96; Pulse 106; Resp 22; Pulse Ox 100% on Nebulizer Mask; tl2 22:00 BP 139 / 81; Pulse 100; Resp 22; Temp 97.6(O); Pulse Ox 98% on R/A; tl2 17:20 Body Mass Index 24.60 (80.00 kg, 180.34 cm) sv Vitals: 19:07 Cardiac Rhythm Assessment Sinus rhythm W/unifocal PVC's. tl2 ED Course: 17:03 Patient arrived in ED. la1 17:05 Jaime Hough PA is PHCP. dawood 17:05 Satish Catalan MD is Attending Physician. dawood 17:05 First set of blood cultures drawn by ED staff. Inserted saline lock: 18 gauge in left ss antecubital area, using aseptic technique. ,using aseptic technique. insertion by Nati Marquez RN Blood collected. 17:05 Patient has correct armband on for positive identification. Placed in gown. Bed in low sv position. Call light in reach. Side rails up X2. computational biologist on. Pulse ox on. NIBP on. 17:15 Nati Marquez, LASHAY is Primary Nurse. sv 17:23 Second set of blood cultures drawn. ss 17:31 Triage completed. sv 17:31 X-ray(s) taken. sv 17:32 Arm band placed on. sv 17:38 XRAY Chest (1 view) In Process Unspecified. EDMS 17:58 Awaiting lab results, Awaiting radiology results. sv 17:58 CBC Smear Scan Sent. sv 17:58 BIPAP Sent. sv 17:59 Lactate Sent. sv 17:59 ABG Sent. sv 18:57 Report given to Nelia METZ. sv 19:08 Primary Nurse role handed off by Nati Marquez RN sv 19:21 Nelia May RN is Primary Nurse. tl2 21:18 PHCP role handed off by Jaime Hough PA pm1 21:18 Rj Arnold NP is PHCP. pm1 22:13 No provider procedures requiring assistance completed. IV discontinued, intact, tl2 bleeding controlled, No redness/swelling at site. Pressure dressing applied. Administered Medications: 17:20 Drug: Lasix 40 mg Route: IVP; Site: left antecubital; sv 17:59 Follow up: Response: No adverse reaction sv 17:20 Drug: Xopenex (3) 1.25 mg Route: Inhalation; sv 19:22 Drug: Lasix 40 mg Route: IVP; Site: left antecubital; tl2 20:00 Follow up: Response: No adverse reaction tl2 20:02 Drug: DuoNeb (3:1) (2.5 mg - 0.5 mg) 3 ml Route: Nebulizer; tl2 22:16 Follow up: Response: No adverse reaction tl2 20:23 Drug: Nitroglycerin Ointment 2 % 1 inches Route: Transdermal; Site: anterior chest wall;tl2 Output: 18:02 Urine: 500ml (Voided); Total: 500ml. sv 19:10 Urine: 400ml (Voided); Total: 900ml. tl2 20:03 Urine: 700ml (Voided); Total: 1600ml. tl2 Outcome: 21:55 Discharge ordered by . pm1 22:13 Discharged to Room 11 tl2 22:13 Condition: stable 22:13 Discharge instructions given to patient. 08/03 01:44 Patient left the ED. bb Signatures: Dispatcher [employer] EDMS Nati Marquez RN RN Jaime Rivera PA PA jmm Ballard, Brenda, RN RN bb Tayler Flynn RN RN ss Attema, Lee, RN RN la1 Rj Arnold, HYDRAULIC BILLET MAKER HYDRAULIC BILLET MAKER pm1 Nelia May RN RN tl2 Corrections: (The following items were deleted from the chart) 08/02 17:34 17:20 BP 157 / 108; Pulse 103bpm; Resp 34bpm; Pulse Ox 98% RA; Temp 98.4F; Pain 0/10; svsv 20:38 20:36 Pulse 106bpm; Resp 22bpm; Pulse Ox 100% Nebulizer Mask; tl2 tl2
--- NOTE | 2018-08-02 21:56 | EDPHYS ---
Physician Documentation [facility] Name: Mark Terrell Age: 67 yrs Sex: Male : 1950 Arrival Date: 08/02/2018 Time: 17:03 Bed Treatment Private MD: ED Physician Satish Catalan HPI: 08/02 17:05 This 67 yrs old Male presents to ER via EMS with complaints of Shortness Of jmm Breath. 17:05 The patient has shortness of breath at rest. Onset: The symptoms/episode began/occurred jmm today. Duration: The symptoms are continuous. The patient's shortness of breath is aggravated by nothing, is alleviated by nothing. Associated signs and symptoms: Pertinent positives:. This is a 67 year old male with a history of chf, copd, atrial fibrillation that presents to the ED with complaints of shortness of breath, cough, wheezing worsening today. Patient states he has not taken his prescribed lasix recently. . Historical: - Allergies: 17:32 Benadryl; sv - PMHx: 17:32 Aneurysm; BRAIN; Atrial Fib; Cancer; PROSTATE; CHF; COPD; Hypertension; Prostate Cancer;sv - PSHx: 17:32 Prostate removal; sv - Immunization history:: Adult Immunizations up to date. - Ebola Screening: : No symptoms or risks identified at this time. - Social history:: Smoking status: Patient uses tobacco products, smokes one-half pack cigarettes per day. ROS: 17:05 Constitutional: Negative for fever, chills, and weight loss, Cardiovascular: Negative jmm for chest pain, palpitations, and edema. 17:05 Abdomen/GI: Negative for abdominal pain, nausea, vomiting, diarrhea, and constipation, Back: Negative for injury and pain, Skin: Negative for injury, rash, and discoloration, Neuro: Negative for headache, weakness, numbness, tingling, and seizure. 17:05 Respiratory: Positive for shortness of breath. 17:05 All other systems are negative. Exam: 17:05 Head/Face: atraumatic. Eyes: EOMI, no conjunctival erythema appreciated ENT: Moist jmm Mucus Membranes Neck: Trachea midline, Supple Chest/axilla: Normal chest wall appearance and motion. 17:05 Abdomen/GI: Non distended, soft Back: Normal ROM Skin: General appearance color normal MS/ Extremity: Moves all extremities, no obvious deformities appreciated, no edema noted to the lower extremities Neuro: Awake and alert, normal gait Psych: Behavior is normal, Mood is normal, Patient is cooperative and pleasant 17:05 Constitutional: The patient appears alert, awake, uncomfortable. 17:05 Cardiovascular: Rate: normal, Rhythm: regular, Pulses: no pulse deficits are appreciated. 17:05 Respiratory: mild respiratory distress is noted, Respirations: labored breathing, that is mild, Breath sounds: wheezing: Vital Signs: 17:20 BP 157 / 108; Pulse 103; Resp 34; Temp 98.4; Pulse Ox 98% on R/A; Weight 80 kg (R); sv Height 5 ft. 11 in. (180.34 cm); Pain 0/10; 17:57 BP 172 / 119; Pulse 117; Resp 30; Pulse Ox 99% on R/A; sv 18:50 BP 170 / 116; Pulse 108; Resp 18; Pulse Ox 99% on R/A; sv 19:07 BP 163 / 117; Pulse 113; Resp 22; Pulse Ox 100% on R/A; tl2 19:43 BP 148 / 96; Pulse 105; Resp 27; Pulse Ox 99% on R/A; tl2 20:36 BP 167 / 96; Pulse 106; Resp 22; Pulse Ox 100% on Nebulizer Mask; tl2 22:00 BP 139 / 81; Pulse 100; Resp 22; Temp 97.6(O); Pulse Ox 98% on R/A; tl2 17:20 Body Mass Index 24.60 (80.00 kg, 180.34 cm) sv MDM: 17:05 Patient medically screened. [facility] 20:56 Data reviewed: vital signs, nurses notes, lab test result(s), radiologic studies, plain [facility] films. ED course: I discussed the patient with Dr. Fuentes whom visited with the patient. Recommends nitro paste and reevaluation at 10 pm for final disposition. I reevaluated the patient at 2049. Lungs CTA. patient states he is feeling better. I discussed the patient's case with Rj Arnold whom will reevaluate the patient for final disposition. . 21:05 Transition of care: After a detail discussion of the patient's case, care is [facility] transferred to Rj Arnold SINGING MESSENGER. 21:54 Counseling: I had a detailed discussion with the patient and/or guardian regarding: the pm1 historical points, exam findings, and any diagnostic results supporting the discharge/admit diagnosis, lab results, radiology results, the need for outpatient follow up, to return to the emergency department if symptoms worsen or persist or if there are any questions or concerns that arise at home. 08/02 17:08 Order name: Basic Metabolic Panel; Complete Time: 17:55 [facility] 08/02 17:08 Order name: CBC with Diff; Complete Time: 18:10 [facility] 08/02 17:08 Order name: LFT's; Complete Time: 17:55 [facility] 08/02 17:08 Order name: Magnesium; Complete Time: 17:55 [facility] 08/02 17:08 Order name: NT PRO-BNP; Complete Time: 17:55 [facility] 08/02 17:08 Order name: PT-INR; Complete Time: 17:41 [facility] 08/02 17:08 Order name: Troponin (emerg Dept Use Only); Complete Time: 17:55 [facility] 08/02 17:08 Order name: XRAY Chest (1 view); Complete Time: 17:55 [facility] 08/02 17:11 Order name: Blood Culture Adult (2) [facility] 08/02 17:16 Order name: Lactate sv 08/02 17:17 Order name: Procalcitonin; Complete Time: 18:10 [facility] 08/02 17:18 Order name: Lactate; Complete Time: 17:55 [facility] 08/02 17:45 Order name: CBC Smear Scan; Complete Time: 18:10 [facility] 08/02 17:57 Order name: ABG; Complete Time: 18:42 [facility] 08/02 17:08 Order name: EKG; Complete Time: 17:10 [facility] 08/02 17:08 Order name: Cardiac monitoring; Complete Time: 17:16 [facility] 08/02 17:08 Order name: EKG - Nurse/Tech; Complete Time: 17:28 [facility] 08/02 17:08 Order name: IV Saline Lock; Complete Time: 17:16 [facility] 08/02 17:08 Order name: Labs collected and sent; Complete Time: 17:16 [facility] 08/02 17:08 Order name: O2 Per Protocol; Complete Time: 17:16 [facility] 08/02 17:08 Order name: O2 Sat Monitoring; Complete Time: 17:16 [facility] 08/02 17:11 Order name: CIERA seay Administered Medications: 17:20 Drug: Lasix 40 mg Route: IVP; Site: left antecubital; sv 17:59 Follow up: Response: No adverse reaction sv 17:20 Drug: Xopenex (3) 1.25 mg Route: Inhalation; sv 19:22 Drug: Lasix 40 mg Route: IVP; Site: left antecubital; tl2 20:00 Follow up: Response: No adverse reaction tl2 20:02 Drug: DuoNeb (3:1) (2.5 mg - 0.5 mg) 3 ml Route: Nebulizer; tl2 22:16 Follow up: Response: No adverse reaction tl2 20:23 Drug: Nitroglycerin Ointment 2 % 1 inches Route: Transdermal; Site: anterior chest wall;tl2 Disposition: 08/03 07:49 Co-signature as Attending Physician, Satish Catalan MD I agree with the assessment and mónica plan of care. Disposition: 08/02/18 21:55 Discharged to Home. Impression: Acute on chronic combined systolic (congestive) and diastolic (congestive) heart failure. - Condition is Stable. - Discharge Instructions: Heart Failure. - Prescriptions for Lasix 20 mg Oral Tablet - take 1 tablet by ORAL route 2 times per day; 60 tablet. - Medication Reconciliation Form, Thank You Letter, Antibiotic Education, Prescription Opioid Use form. - Follow up: Private Physician; When: 2 - 3 days; Reason: Recheck today's complaints, Continuance of care, Re-evaluation by your physician. Signatures: Dispatcher [employer] Nati Metzger RN RN sv Anderson, Corey, MD MD cha Mickail, Joel, PA PA jmm Ballard, Brenda, RN RN bb Marinas, Patrick, SINGING MESSENGER SINGING MESSENGER pm1 Nelia May, RN RN tl2 Corrections: (The following items were deleted from the chart) 01:44 08/02 21:55 08/02/2018 21:55 Discharged to Home. Impression: Acute on chronic combined bb systolic (congestive) and diastolic (congestive) heart failure. Condition is Stable. Discharge Instructions: Heart Failure. Prescriptions for Lasix 20 mg Oral Tablet - take 1 tablet by ORAL route 2 times per day; 60 tablet. and Forms are Medication Reconciliation Form, Thank You Letter, Antibiotic Education, Prescription Opioid Use. Follow up: Private Physician; When: 2 - 3 days; Reason: Recheck today's complaints, Continuance of care, Re-evaluation by your physician. pm1
[2018-08-03 03:27] VITALS: BP 139/81; TEMP 97.6; O2SAT 98
--- NOTE | 2018-08-03 07:57 | EKG ---
Test Date: 2018-08-02 Test Time: 17:27:08 Sanitary Plumber: VICTOR MANUEL MEASUREMENT RESULTS: Intervals: Rate: 101 NC: 148 QRSD: 106 QT: 364 QTc: 471 [place]: P: 54 NC: 148 QRS: 104 T: 34 INTERPRETIVE STATEMENTS: Sinus tachycardia Rightward axis Minimal voltage criteria for LVH, may be normal variant Nonspecific ST and T wave abnormality Abnormal ECG Compared to ECG 07/31/2018 00:43:13 Right-axis deviation now present Left ventricular hypertrophy now present ST (T wave) deviation now present Sinus rhythm no longer present Ventricular premature complex(es) no longer present Prolonged QT interval no longer present Electronically Signed On 08-03-18 07:56:59 CDT by Jitendra Willams
== END 2018-08-03 01:44 | disposition home or self-care (01) ==
LOC: ER 17:02
DX: I50.43 Acute on chronic combined systolic (congestive) and diastolic (congestive) heart failure (principal); J44.9 Chronic obstructive pulmonary disease, unspecified; I10 Essential (primary) hypertension; F17.210 Nicotine dependence, cigarettes, uncomplicated; Z85.46 Personal history of malignant neoplasm of prostate; Z88.8 Allergy status to other drugs, medicaments and biological substances
CPT/HCPCS: 93005; 87040 ×2; 85025; 80048; 36415; 83735; 85610; 80076; 83605; 84484; 84145; 83880; 71045; 94640; 82805; 94660; 96374; 99285; J1940 ×2

== ENCOUNTER 2018-08-04 18:44 | Emergency (ER) | payer OTHER ==
--- OUTSIDE RECORDS SUMMARY | 2018-08-04 18:46 | XMS REPORT ---
:1950 [facility] Address [address] [place] [address] Care Team Providers Name Role Phone Unavailable [...] 1 View 2017-12-22 23:14:17 Patient: JOSTIN BURTON [facility] Date/Time12/22/2017 22:58 CDTReason for ExamCHF [...]
--- NOTE | 2018-08-04 19:37 | RAD REPORT ---
EXAM DESCRIPTION: RAD - Chest Single View - 08/04/2018 7:26 pm CLINICAL HISTORY: DYSPNEA Chest pain. COMPARISON: Chest Single View dated 08/02/2018; Chest Single View dated 07/31/2018; Chest Single View d ated 07/28/2018; Chest Single View dated 07/04/2018 FINDINGS: Portable technique limits examination quality. Mild interstitial pulmonary edema seen. The heart is moderately enlarged in size. No displaced fractu res. IMPRESSION: Mild CHF.
[2018-08-04] MEDS ORDERED: ALBUTEROL 2.5 MG/3 ML NEB SOL ONE (19:40)
[2018-08-04] MEDS ORDERED: IPRATROPIUM BROM 0.5MG/2.5ML ONE (19:40)
[2018-08-04] MEDS ORDERED: predniSONE 20 MG TAB ONE (19:40)
[2018-08-04 19:53] LABS: Absolute Lymphocytes (CBC) 3.6 K/uL (0.7-4.9); Absolute Monocytes 1.3 K/uL (0.1-1.3); Absolute Neutrophil 6.5 K/uL (1.8-8.0); Basophils % 1.3 % (0-1.3); Lymphocytes % 30.5 % (15.3-44.8); MPV 9.4 fL (7.6-11.3); Monocytes % 11.2 % (3.3-12.3); RBC Red Blood Cell Count 5.58 M/uL (4.33-5.43)
[2018-08-04 20:01] LABS: Hematocrit 29.5 % (39.6-49.0)
[2018-08-04 20:10] LABS: Potassium 4.4 mmol/L (3.5-5.1); Troponin (Emerg Dept Use Only) 0.06 ng/mL (0.0-0.045)
[2018-08-04 20:17] LABS: Platelet Estimate ADEQ
[2018-08-04 20:18] LABS: Blood Morphology Comment NOTED (NOT SEEN); Hypochromasia 3+; Ovalocytes SLIGHT
[2018-08-04] MEDS ORDERED: FUROSEMIDE 20 MG/ 2ML VIAL ONE (21:16)
[2018-08-04] MEDS ORDERED: FUROSEMIDE 40 MG/4 ML VIAL ONE (21:17)
--- NOTE | 2018-08-04 22:59 | EDPHYS ---
Physician Documentation [facility] Name: Mark Terrell Age: 67 yrs Sex: Male : 1950 Arrival Date: 08/04/2018 Time: 18:46 Bed 30 Private MD: ED Physician Mike Yoo HPI: 08/04 22:40 This 67 yrs old Male presents to ER via EMS with complaints of SOB. gs 22:40 Onset: The symptoms/episode began/occurred today. Duration: The symptoms are gs continuous. The patient's shortness of breath is aggravated by NOT TAKING MEDS, is alleviated by TAKING HIS MEDS. Associated signs and symptoms: Pertinent positives: non-productive cough. Severity of symptoms: At their worst the symptoms were moderate in the emergency department the symptoms are unchanged. The patient has experienced similar episodes in the past, chronically, PT IS VERY NONCOMPLIANT. Historical: - Allergies: 18:50 Benadryl; rv - Home Meds: 18:50 None [Active]; rv - PMHx: 18:50 Aneurysm; BRAIN; Atrial Fib; Cancer; PROSTATE; CHF; COPD; Hypertension; Prostate Cancer;rv - PSHx: 18:50 None; rv - Immunization history:: Adult Immunizations up to date. - Social history:: Smoking status: Patient uses tobacco products, 2 cigarettes a day. - Ebola Screening: : No symptoms or risks identified at this time. ROS: 22:40 All other systems are negative. gs Exam: 22:40 Head/Face: Normocephalic, atraumatic. Eyes: Pupils equal round and reactive to light, gs extra-ocular motions intact. Lids and lashes normal. Conjunctiva and sclera are non-icteric and not injected. Cornea within normal limits. Periorbital areas with no swelling, redness, or edema. ENT: Nares patent. No nasal discharge, no septal abnormalities noted. Tympanic membranes are normal and external auditory canals are clear. Oropharynx with no redness, swelling, or masses, exudates, or evidence of obstruction, uvula midline. Mucous membranes moist. Neck: Trachea midline, no thyromegaly or masses palpated, and no cervical lymphadenopathy. Supple, full range of motion without nuchal rigidity, or vertebral point tenderness. No Meningismus. Chest/axilla: Normal chest wall appearance and motion. Nontender with no deformity. No lesions are appreciated. Cardiovascular: Regular rate and rhythm with a normal S1 and S2. No gallops, murmurs, or rubs. Normal PMI, no JVD. No pulse deficits. 22:40 Abdomen/GI: Soft, non-tender, with normal bowel sounds. No distension or tympany. No guarding or rebound. No evidence of tenderness throughout. Back: No spinal tenderness. No costovertebral tenderness. Full range of motion. Skin: Warm, dry with normal turgor. Normal color with no rashes, no lesions, and no evidence of cellulitis. MS/ Extremity: Pulses equal, no cyanosis. Neurovascular intact. Full, normal range of motion. Neuro: Awake and alert, GCS 15, oriented to person, place, time, and situation. Cranial nerves II-XII grossly intact. Motor strength 5/5 in all extremities. Sensory grossly intact. Cerebellar exam normal. Normal gait. 22:40 Constitutional: The patient appears alert, awake. 22:40 Respiratory: the patient does not display signs of respiratory distress, Respirations: tachypnea, that is mild, Breath sounds: wheezing: expiratory that is mild, is scattered. Vital Signs: 18:52 BP 160 / 111; Pulse 101; Resp 38; Temp 98.1; Pulse Ox 97% on 3 lpm NC; rv 19:00 BP 149 / 105; Pulse 97; Resp 26; Pulse Ox 99% ; rv 19:30 BP 151 / 105; Pulse 98; Resp 13; Pulse Ox 97% ; rv 20:30 BP 184 / 101; Pulse 105; Resp 24; Pulse Ox 97% 3 lpm ; rv 21:30 BP 163 / 107; Pulse 103; Resp 23; Pulse Ox 97% 3 lpm ; rv 21:39 BP 148 / 110; Pulse 100; Resp 28; Pulse Ox 100% on 3 lpm NC; rv 22:30 BP 163 / 109; Pulse 101; Resp 30; Pulse Ox 96% ; rv 23:10 BP 159 / 107; Pulse 103; Resp 21; Temp 98; Pulse Ox 96% ; rv MDM: 20:27 Patient medically screened. gs 22:55 Differential diagnosis: Bronchitis CHF exacerbation, Chronic Obstructive Pulmonary gs Disease Myocardial Infarction. Data reviewed: vital signs, nurses notes, old medical records, lab test result(s), EKG, radiologic studies. Counseling: I had a detailed discussion with the patient and/or guardian regarding: the historical points, exam findings, and any diagnostic results supporting the discharge/admit diagnosis. Response to treatment: the patient's condition has returned to base line, WANTS TO GO HOME SAYS WILL GET HIS MEDS AND GO BACK TO HIS MOTEL ROOM. 08/04 19:08 Order name: Basic Metabolic Panel; Complete Time: 20:36 gs 08/04 19:08 Order name: CBC with Diff; Complete Time: 20:36 gs 08/04 19:08 Order name: Troponin (emerg Dept Use Only); Complete Time: 20:36 gs 08/04 19:08 Order name: XRAY Chest (1 view); Complete Time: 20:36 gs 08/04 20:02 Order name: Manual Differential; Complete Time: 20:36 EDMS 08/04 19:08 Order name: EKG; Complete Time: 19:10 gs 08/04 19:08 Order name: Cardiac monitoring; Complete Time: 19:54 gs 08/04 19:08 Order name: EKG - Nurse/Tech; Complete Time: 19:54 gs 08/04 19:08 Order name: IV Saline Lock; Complete Time: 19:54 gs 08/04 19:08 Order name: Labs collected and sent; Complete Time: 19:54 gs 04 19:08 Order name: O2 Per Protocol; Complete Time: 19:55 gs 04 19:08 Order name: O2 Sat Monitoring; Complete Time: 19:55 gs Administered Medications: 19:30 Drug: Albuterol 2.5 mg Route: Inhalation; rv 20:41 Follow up: Response: Marked relief of symptoms rv 19:30 Drug: AtroVENT Aerosol 0.5 mg Route: Inhalation; rv 20:41 Follow up: Response: Marked relief of symptoms rv 19:30 Drug: predniSONE 40 mg Route: PO; rv 20:41 Follow up: Response: Marked relief of symptoms rv 21:04 Drug: Lasix 60 mg Route: IVP; Site: right antecubital; rv 21:39 Follow up: BP 148 / 110; Pulse 100 bpm; Resp 28 bpm; Pulse Ox 100% 3 lpm Nasal Cannula rv Disposition: 08/04/18 22:58 Discharged to Home. Impression: Heart failure, Chronic obstructive pulmonary disease with (acute) exacerbation, Patient's noncompliance with medical treatment and regimen. - Condition is Stable. - Discharge Instructions: Chronic Obstructive Pulmonary Disease, Steps to Quit Smoking, Managing Your Hypertension. - Medication Reconciliation Form, Thank You Letter, Antibiotic Education, Prescription Opioid Use form. - Follow up: Private Physician; When: 2 - 3 days; Reason: Re-evaluation by your physician. Signatures: Dispatcher [employer] Mike Sifuentes MD MD Andrew Souza RN RN rv Corrections: (The following items were deleted from the chart) 22:58 22:58 08/04/2018 22:58 Discharged to Home. Impression: Heart failure; Chronic gs obstructive pulmonary disease with (acute) exacerbation. Condition is Stable. Forms are Medication Reconciliation Form, Thank You Letter, Antibiotic Education, Prescription Opioid Use. Follow up: Private Physician; When: 2 - 3 days; Reason: Re-evaluation by your physician. 23:14 22:58 08/04/2018 22:58 Discharged to Home. Impression: Heart failure; Chronic rv obstructive pulmonary disease with (acute) exacerbation; Patient's noncompliance with medical treatment and regimen. Condition is Stable. Forms are Medication Reconciliation Form, Thank You Letter, Antibiotic Education, Prescription Opioid Use. Follow up: Private Physician; When: 2 - 3 days; Reason: Re-evaluation by your physician.
--- NOTE | 2018-08-04 22:59 | ER ---
Nurse's Notes [facility] Name: Mark Terrell Age: 67 yrs Sex: Male : 1950 Arrival Date: 08/04/2018 Time: 18:46 Bed 30 Private MD: Diagnosis: Heart failure;Chronic obstructive pulmonary disease with (acute) exacerbation;Patient's noncompliance with medical treatment and regimen Presentation: 08/04 18:46 Presenting complaint: EMS states: patient is SOB. 90-91% sats at room air. gave him rv Albuterol and Atrovent, hooked him in oxygen at 6 lpm. sats came up to 96-97%. Transition of care: patient was not received from another setting of care. Onset of symptoms was August 04, 2018 at 18:30. Risk Assessment: Do you want to hurt yourself or someone else? Patient reports no desire to harm self or others. Initial Sepsis Screen: Does the patient meet any 2 criteria? No. Patient's initial sepsis screen is negative. Does the patient have a suspected source of infection? No. Patient's initial sepsis screen is negative. Care prior to arrival: None. 18:46 Method Of Arrival: EMS: [facility] rv 18:46 Acuity: ARIEL 3 rv Triage Assessment: 18:51 General: Appears in no apparent distress. uncomfortable, Behavior is calm, cooperative. rv Pain: Complains of pain in chest. EENT: No signs and/or symptoms were reported regarding the EENT system. Neuro: Level of Consciousness is awake, alert, obeys commands, Oriented to person, place, time, situation. Cardiovascular: Patient's skin is warm and dry. Respiratory: Breath sounds with wheezes bilaterally. GI: No signs and/or symptoms were reported involving the gastrointestinal system. : No signs and/or symptoms were reported regarding the genitourinary system. Derm: Skin is intact. Musculoskeletal: No signs and/or symptoms reported regarding the musculoskeletal system. Historical: - Allergies: 18:50 Benadryl; rv - Home Meds: 18:50 None [Active]; rv - PMHx: 18:50 Aneurysm; BRAIN; Atrial Fib; Cancer; PROSTATE; CHF; COPD; Hypertension; Prostate Cancer;rv - PSHx: 18:50 None; rv - Immunization history:: Adult Immunizations up to date. - Social history:: Smoking status: Patient uses tobacco products, 2 cigarettes a day. - Ebola Screening: : No symptoms or risks identified at this time. Screenin:52 Abuse screen: Denies threats or abuse. Denies injuries from another. Nutritional rv screening: No deficits noted. Tuberculosis screening: No symptoms or risk factors identified. Fall Risk None identified. Assessment: 21:00 Reassessment: Patient appears in no apparent distress at this time. Patient and/or rv family updated on plan of care and expected duration. Pain level reassessed. Patient is alert, oriented x 3, equal unlabored respirations, skin warm/dry/pink. Patient states feeling better. 22:30 Reassessment: Patient appears in no apparent distress at this time. Patient and/or rv family updated on plan of care and expected duration. Pain level reassessed. Patient is alert, oriented x 3, equal unlabored respirations, skin warm/dry/pink. Patient denies pain at this time. Patient states feeling better. Patient states symptoms have improved. Vital Signs: 18:52 BP 160 / 111; Pulse 101; Resp 38; Temp 98.1; Pulse Ox 97% on 3 lpm NC; rv 19:00 BP 149 / 105; Pulse 97; Resp 26; Pulse Ox 99% ; rv 19:30 BP 151 / 105; Pulse 98; Resp 13; Pulse Ox 97% ; rv 20:30 BP 184 / 101; Pulse 105; Resp 24; Pulse Ox 97% 3 lpm ; rv 21:30 BP 163 / 107; Pulse 103; Resp 23; Pulse Ox 97% 3 lpm ; rv 21:39 BP 148 / 110; Pulse 100; Resp 28; Pulse Ox 100% on 3 lpm NC; rv 22:30 BP 163 / 109; Pulse 101; Resp 30; Pulse Ox 96% ; rv 23:10 BP 159 / 107; Pulse 103; Resp 21; Temp 98; Pulse Ox 96% ; rv ED Course: 18:46 Patient arrived in ED. rv 18:49 Triage completed. rv 18:53 Patient has correct armband on for positive identification. Bed in low position. Call rv light in reach. Side rails up X 1. bus monitor on. Pulse ox on. NIBP on. 18:53 Arm band placed on right wrist. Patient placed in an exam room, on a stretcher, on rv oxygen, on playground monitor, on pulse oximetry, Patient notified of wait time. 19:05 Andrew Souza, RN is Primary Nurse. rv 19:06 Mike Yoo MD is Attending Physician. gs 19:28 XRAY Chest (1 view) In Process Unspecified. EDMS 23:13 No provider procedures requiring assistance completed. IV discontinued, intact, rv bleeding controlled, No redness/swelling at site. Pressure dressing applied. Administered Medications: 19:30 Drug: Albuterol 2.5 mg Route: Inhalation; rv 20:41 Follow up: Response: Marked relief of symptoms rv 19:30 Drug: AtroVENT Aerosol 0.5 mg Route: Inhalation; rv 20:41 Follow up: Response: Marked relief of symptoms rv 19:30 Drug: predniSONE 40 mg Route: PO; rv 20:41 Follow up: Response: Marked relief of symptoms rv 21:04 Drug: Lasix 60 mg Route: IVP; Site: right antecubital; rv 21:39 Follow up: BP 148 / 110; Pulse 100 bpm; Resp 28 bpm; Pulse Ox 100% 3 lpm Nasal Cannula rv Outcome: 22:58 Discharge ordered by . gs 23:13 Discharged to home ambulatory. rv 23:13 Condition: good 23:13 Discharge instructions given to patient, Instructed on discharge instructions, follow up and referral plans. Demonstrated understanding of instructions, follow-up care. 23:14 Patient left the ED. rv Signatures: Dispatcher [employer] EDMS Mike Yoo MD MD Andrew Souza, RN RN rv
[2018-08-04 23:27] VITALS: O2SAT 96
[2018-08-04 23:28] VITALS: BP 159/107; TEMP 98
--- NOTE | 2018-08-05 07:38 | EKG ---
Test Date: 2018-08-04 Test Time: 19:16:03 Supervisor Laundry: SUE MEASUREMENT RESULTS: Intervals: Rate: 99 CT: 144 QRSD: 106 QT: 390 QTc: 500 [place]: P: 70 CT: 144 QRS: 75 T: 35 INTERPRETIVE STATEMENTS: Sinus rhythm with occasional premature ventricular complexes Possible Left atrial enlargement Prolonged QT Abnormal ECG Compared to ECG 08/02/2018 17:27:08 Ventricular premature complex(es) now present Prolonged QT interval now present Sinus tachycardia no longer present Right-axis deviation no longer present Left ventricular hypertrophy no longer present ST (T wave) deviation no longer present Electronically Signed On 08-05-18 07:36:59 CDT by Jitendra Willams
== END 2018-08-04 23:14 | disposition home or self-care (01) ==
LOC: ER 18:44
DX: J44.1 Chronic obstructive pulmonary disease with (acute) exacerbation (principal); Z91.19 Patient's noncompliance with other medical treatment and regimen; I10 Essential (primary) hypertension; Z72.0 Tobacco use; Z85.46 Personal history of malignant neoplasm of prostate; Z88.8 Allergy status to other drugs, medicaments and biological substances
CPT/HCPCS: 93005; 85025; 80048; 36415; 84484; 71045; 96374; 99285; J1940 ×2; J7512

== ENCOUNTER 2018-08-06 15:45 | Emergency (ER) | payer OTHER ==
[2018-08-06] MEDS ORDERED: predniSONE 20 MG TAB ONE (16:37)
[2018-08-06] MEDS ORDERED: ALBUTEROL 2.5 MG/3 ML NEB SOL ONE (16:37)
[2018-08-06] MEDS ORDERED: FUROSEMIDE 40 MG TABLET ONE (16:37)
--- OUTSIDE RECORDS SUMMARY | 2018-08-06 17:14 | XMS REPORT ---
:1950 [facility] [address] [place] [address] Care Team Providers Name Role Phone Unavailable [...] 1 View 2017-12-22 23:14:17 Patient: JOSTIN BURTON Date/Time12/22/2017 22:58 CDTReason for ExamCHF (Congestive Heart [...]
--- NOTE | 2018-08-06 17:36 | EDPHYS ---
Physician Documentation [facility] Name: Mark Terrell Age: 67 yrs Sex: Male : 1950 Arrival Date: 08/06/2018 Time: 15:51 Bed 20 Private MD: ED Physician Satish Catalan HPI: 08/06 16:35 This 67 yrs old Male presents to ER via EMS with complaints of Shortness Of pm1 Breath. 16:35 The patient has shortness of breath at rest. pm1 16:35 Onset: The symptoms/episode began/occurred today. Duration: The symptoms are pm1 continuous. The patient's shortness of breath is aggravated by prescription of Lasix ran out a few days ago, is alleviated by nebulizer treatment, by EMS. Associated signs and symptoms: Pertinent negatives: chest pain, dizziness, fever, nausea, vomiting. Severity of symptoms: Pain is currently a 0 / 10. The patient has experienced similar episodes in the past, chronically. The patient has been recently seen at the [facility] Emergency Department, this week, for similar complaints labs were performed, X-rays were performed, discharged, improved with lasix and breathing treatments. Historical: - Allergies: 15:54 Benadryl; bp - Home Meds: 15:54 None [Active]; bp - PMHx: 15:54 CHF; COPD; Hypertension; Prostate Cancer; bp - Immunization history:: Adult Immunizations up to date. - Social history:: Smoking status: Patient uses tobacco products, smokes two packs cigarettes per day. - Ebola Screening: : No symptoms or risks identified at this time. ROS: 16:35 Constitutional: Negative for fever, chills, and weight loss, Eyes: Negative for injury, pm1 pain, redness, and discharge, ENT: Negative for injury, pain, and discharge, Neck: Negative for injury, pain, and swelling, Cardiovascular: Negative for chest pain, palpitations, and edema. 16:35 Abdomen/GI: Negative for abdominal pain, nausea, vomiting, diarrhea, and constipation, Back: Negative for injury and pain, : Negative for injury, bleeding, discharge, and swelling, MS/Extremity: Negative for injury and deformity, Skin: Negative for injury, rash, and discoloration, Neuro: Negative for headache, weakness, numbness, tingling, and seizure. 16:35 Respiratory: Positive for shortness of breath, wheezing, Negative for cough, sputum production. Exam: 16:35 Constitutional: This is a well developed, well nourished patient who is awake, alert, pm1 and in no acute distress. Head/Face: Normocephalic, atraumatic. Eyes: Pupils equal round and reactive to light, extra-ocular motions intact. Lids and lashes normal. Conjunctiva and sclera are non-icteric and not injected. Cornea within normal limits. Periorbital areas with no swelling, redness, or edema. ENT: Nares patent. No nasal discharge, no septal abnormalities noted. Tympanic membranes are normal and external auditory canals are clear. Oropharynx with no redness, swelling, or masses, exudates, or evidence of obstruction, uvula midline. Mucous membranes moist. Neck: Trachea midline, no thyromegaly or masses palpated, and no cervical lymphadenopathy. Supple, full range of motion without nuchal rigidity, or vertebral point tenderness. No Meningismus. Chest/axilla: Normal chest wall appearance and motion. Nontender with no deformity. No lesions are appreciated. Cardiovascular: Regular rate and rhythm with a normal S1 and S2. No gallops, murmurs, or rubs. Normal PMI, no JVD. No pulse deficits. 16:35 Abdomen/GI: Soft, non-tender, with normal bowel sounds. No distension or tympany. No guarding or rebound. No evidence of tenderness throughout. Back: No spinal tenderness. No costovertebral tenderness. Full range of motion. Skin: Warm, dry with normal turgor. Normal color with no rashes, no lesions, and no evidence of cellulitis. MS/ Extremity: Pulses equal, no cyanosis. Neurovascular intact. Full, normal range of motion. 16:35 Respiratory: the patient does not display signs of respiratory distress, Respirations: normal, Breath sounds: are clear throughout, no bronchial sounds, no decreased breath sounds, no rales, rhonchi, no stridor, no wheezing. 16:35 Neuro: Orientation: is normal, Motor: is normal, moves all fours, Sensation: is normal, no obvious gross deficits, Gait: is steady, at a normal pace, without difficulty. Vital Signs: 15:51 BP 158 / 95; Pulse 99; Resp 20; Temp 98; Pulse Ox 99% ; Weight 90.72 kg; bp 16:46 BP 142 / 89; Pulse 81; Resp 18; Temp 98.1(O); Pulse Ox 100% on R/A; mh5 17:14 BP 146 / 87; Pulse 100; Resp 20; Pulse Ox 100% ; bp MDM: 16:00 Patient medically screened. pm1 16:18 Data reviewed: vital signs. Data interpreted: Pulse oximetry: on room air is 99 %. pm1 Interpretation: normal. 17:30 Counseling: I had a detailed discussion with the patient and/or guardian regarding: the pm1 historical points, exam findings, and any diagnostic results supporting the discharge/admit diagnosis, the need for outpatient follow up, to return to the emergency department if symptoms worsen or persist or if there are any questions or concerns that arise at home. Administered Medications: 16:33 Drug: LaSIX 40 mg Route: PO; bp 17:16 Follow up: Response: No adverse reaction bp 16:33 Drug: predniSONE 60 mg Route: PO; bp 17:16 Follow up: Response: No adverse reaction bp 16:33 Drug: Albuterol 2.5 mg Route: Inhalation; bp Disposition: 08/07 07:13 Co-signature as Attending Physician, Satish Catalan MD I agree with the assessment and mónica plan of care. Disposition: 08/06/18 17:34 Discharged to Home. Impression: Chronic obstructive pulmonary disease with (acute) exacerbation, Patient's other noncompliance with medication regimen, Heart failure. - Condition is Stable. - Discharge Instructions: Chronic Obstructive Pulmonary Disease, Heart Failure, How to Use an Inhaler, Chronic Obstructive Pulmonary Disease Exacerbation. - Prescriptions for Prednisone 20 mg Oral Tablet - take 3 tablet by ORAL route once daily for 5 days; 15 tablet. Albuterol Sulfate 90 mcg/actuation - inhale 1-2 puff by INHALATION route every 4-6 hours; 1 Inhaler. Lasix 40 mg Oral Tablet - take 1 tablet by ORAL route once daily for 30 days; 30 tablet. - Medication Reconciliation Form, Thank You Letter, Antibiotic Education, Prescription Opioid Use form. - Follow up: Emergency Department; When: As needed; Reason: Worsening of condition. Follow up: Private Physician; When: 2 - 3 days; Reason: Recheck today's complaints, Continuance of care, Re-evaluation by your physician. - Problem is new. - Symptoms have improved. Signatures: Satish Catalan MD MD cha Marinas, Patrick, JANITOR JANITOR pm1 Joe Domingo, RN RN bp Corrections: (The following items were deleted from the chart) 08/06 17:16 15:54 PMHx: Aneurysm; BRAIN; bp bp 17:16 15:54 PMHx: Atrial Fib; bp bp 17:16 15:54 PMHx: Cancer; PROSTATE; bp bp 18:19 17:34 08/06/2018 17:34 Discharged to Home. Impression: Chronic obstructive pulmonary bp disease with (acute) exacerbation; Patient's other noncompliance with medication regimen; Heart failure. Condition is Stable. Discharge Instructions: Chronic Obstructive Pulmonary Disease, How to Use an Inhaler, Chronic Obstructive Pulmonary Disease Exacerbation. Forms are Medication Reconciliation Form, Thank You Letter, Antibiotic Education, Prescription Opioid Use. Follow up: Emergency Department; When: As needed; Reason: Worsening of condition. Follow up: Private Physician; When: 2 - 3 days; Reason: Recheck today's complaints, Continuance of care, Re-evaluation by your physician. Problem is new. Symptoms have improved. pm1
--- NOTE | 2018-08-06 17:36 | ER ---
Nurse's Notes [facility] Name: Mark Terrell Age: 67 yrs Sex: Male : 1950 Arrival Date: 08/06/2018 Time: 15:51 Bed 20 Private MD: Diagnosis: Chronic obstructive pulmonary disease with (acute) exacerbation;Patient's other noncompliance with medication regimen;Heart failure Presentation: 08/06 15:51 Presenting complaint: EMS states: SAME SHORTNESS OF BREATH. Transition of care: patient bp was not received from another setting of care. Onset of symptoms is unknown. Risk Assessment: Do you want to hurt yourself or someone else? Patient reports no desire to harm self or others. Initial Sepsis Screen: Does the patient meet any 2 criteria? No. Patient's initial sepsis screen is negative. Does the patient have a suspected source of infection? No. Patient's initial sepsis screen is negative. Care prior to arrival: Medication(s) given: Albuterol Neb x 1, Atrovent Neb x 1. 15:51 Method Of Arrival: EMS: [facility] bp 15:51 Acuity: ARIEL 2 bp Triage Assessment: 15:51 General: Appears in no apparent distress. comfortable, unkempt, Behavior is calm, bp cooperative, appropriate for age, Smells of CIGARETTES AND URINE. Pain: Denies pain. EENT: No deficits noted. Neuro: Level of Consciousness is awake, alert, obeys commands, Oriented to person, place, time, situation, Appropriate for age. Cardiovascular: No deficits noted. Respiratory: Reports shortness of breath Onset: The symptoms/episode began/occurred CHRONIC, the patient has mild shortness of breath. GI: No signs and/or symptoms were reported involving the gastrointestinal system. : No signs and/or symptoms were reported regarding the genitourinary system. Derm: No deficits noted. Musculoskeletal: Circulation, motion, and sensation intact. Range of motion: intact in all extremities. Historical: - Allergies: 15:54 Benadryl; bp - Home Meds: 15:54 None [Active]; bp - PMHx: 15:54 CHF; COPD; Hypertension; Prostate Cancer; bp - Immunization history:: Adult Immunizations up to date. - Social history:: Smoking status: Patient uses tobacco products, smokes two packs cigarettes per day. - Ebola Screening: : No symptoms or risks identified at this time. Screenin:10 Abuse screen: Denies threats or abuse. Denies injuries from another. Nutritional bp screening: No deficits noted. Tuberculosis screening: No symptoms or risk factors identified. Fall Risk None identified. Assessment: 15:51 General: SEE TRIAGE NOTE. Cardiovascular: Rhythm is sinus rhythm. Respiratory: Airway bp is patent Respiratory effort is even, labored, Breath sounds are coarse. 17:14 Reassessment: ALL CURRENT ORDERS COMPLETED, AWAITING PROVIDER FOR DISPO. bp 18:18 Reassessment: PT D/C HOME AMBULATORY, DX WITH COPD. bp Vital Signs: 15:51 BP 158 / 95; Pulse 99; Resp 20; Temp 98; Pulse Ox 99% ; Weight 90.72 kg; bp 16:46 BP 142 / 89; Pulse 81; Resp 18; Temp 98.1(O); Pulse Ox 100% on R/A; mh5 17:14 BP 146 / 87; Pulse 100; Resp 20; Pulse Ox 100% ; bp ED Course: 15:51 Patient arrived in ED. bp 15:52 Triage completed. bp 15:55 Rj Arnold, FADI is PHCP. pm1 15:56 Satish Catalan MD is Attending Physician. pm1 16:05 Joe Domingo, LASHAY is Primary Nurse. bp 16:06 Arm band placed on. bp 16:10 Patient has correct armband on for positive identification. Bed in low position. Call bp light in reach. Side rails up X2. 16:45 Warm blanket given. residential monitor on. Pulse ox on. NIBP on. mh5 18:18 No provider procedures requiring assistance completed. Patient did not have IV access bp during this emergency room visit. Administered Medications: 16:33 Drug: LaSIX 40 mg Route: PO; bp 17:16 Follow up: Response: No adverse reaction bp 16:33 Drug: predniSONE 60 mg Route: PO; bp 17:16 Follow up: Response: No adverse reaction bp 16:33 Drug: Albuterol 2.5 mg Route: Inhalation; bp Outcome: 17:34 Discharge ordered by . pm1 18:18 Discharged to home ambulatory. bp 18:18 Condition: stable 18:18 Discharge instructions given to patient, Instructed on discharge instructions, follow up and referral plans. medication usage, Demonstrated understanding of instructions, follow-up care, medications, Prescriptions given X 3. 18:19 Patient left the ED. bp Signatures: Rj Arnold NP AGRICULTURAL SYSTEMS SPECIALIST pm1 Marisa Allison 5 Joe Domingo, RN RN bp Corrections: (The following items were deleted from the chart) 17:16 15:54 PMHx: Aneurysm; BRAIN; bp bp 17:16 15:54 PMHx: Atrial Fib; bp bp 17:16 15:54 PMHx: Cancer; PROSTATE; bp bp
[2018-08-06 20:43] VITALS: TEMP 98.1; O2SAT 100
[2018-08-06 20:44] VITALS: BP 146/87
== END 2018-08-06 18:19 | disposition home or self-care (01) ==
LOC: ER 15:45
DX: J44.1 Chronic obstructive pulmonary disease with (acute) exacerbation (principal); I11.0 Hypertensive heart disease with heart failure; I50.9 Heart failure, unspecified; Z91.19 Patient's noncompliance with other medical treatment and regimen; C61 Malignant neoplasm of prostate; F17.210 Nicotine dependence, cigarettes, uncomplicated
CPT/HCPCS: 99285; J7512

== ENCOUNTER 2018-08-09 11:51 | Emergency (ER) | payer OTHER ==
--- OUTSIDE RECORDS SUMMARY | 2018-08-09 11:53 | XMS REPORT ---
:1950 [facility] [address] [place] [address] Care Team Providers Name Role Phone Unavailable [...] View 2017-12-22 23:14:17 Patient: JOSTIN BURTON [facility] Date/Time12/22/2017 22:58 CDTReason for ExamCHF [...]
[2018-08-09 12:13] LABS: Absolute Lymphocytes (CBC) 2.7 K/uL (0.7-4.9); Absolute Monocytes 1.3 K/uL (0.1-1.3); Absolute Neutrophil 6.3 K/uL (1.8-8.0); Basophils % 1.6 % (0-1.3); Lymphocytes % 25.8 % (15.3-44.8); RBC Red Blood Cell Count 5.86 M/uL (4.33-5.43)
[2018-08-09] MEDS ORDERED: ALBUTEROL 2.5 MG/3 ML NEB SOL ONE (12:26)
[2018-08-09] MEDS ORDERED: IPRATROPIUM BROM 0.5MG/2.5ML ONE (12:26)
[2018-08-09] MEDS ORDERED: METOPROLOL TAR 50 MG TAB ONE (12:26)
[2018-08-09] MEDS ORDERED: predniSONE 20 MG TAB ONE (12:27)
[2018-08-09 12:32] LABS: Albumin 3.3 g/dL (3.4-5.0); Bilirubin Direct 0.8 mg/dL (0-0.2); Bilirubin Total 2.5 mg/dL (0.2-1.0); Magnesium 2.1 mg/dL (1.8-2.4); Potassium 3.8 mmol/L (3.5-5.1); Protein, Total 6.1 g/dL (6.4-8.2)
[2018-08-09 13:42] LABS: Anisocytosis 2+; Blood Morphology Comment NOTED (NOT SEEN); Platelet Estimate ADEQ
[2018-08-09 13:43] LABS: Elliptocytes 1+; Hypochromasia 1+; Poikilocytosis 2+; Polychromasia 1+; Target Cells 1+
--- NOTE | 2018-08-09 13:54 | RAD REPORT ---
EXAM DESCRIPTION: RAD - Chest Single View - 08/09/2018 1:02 pm CLINICAL HISTORY: Shortness of breath COMPARISON: August 04 TECHNIQUE: AP portable chest image was obtained 1236 hour . FINDINGS: Chronic interstitial opacification present similar to comparison. No focal consolidation o r mass. Cardiomegaly is present similar to comparison. Mild vascular engorgement is present. No pneum othorax or measurable pleural effusion. Old rib trauma noted on the left. No acute aortic findings moore spected. IMPRESSION: Cardiomegaly and vascular engorgement consistent with mild or chronic CHF.
[2018-08-09] MEDS ORDERED: ASPIRIN 81 MG CHEWABLE TABLET ONE (13:57)
[2018-08-09] MEDS ORDERED: FUROSEMIDE 20 MG/ 2ML VIAL ONE (13:57)
--- NOTE | 2018-08-09 16:52 | ER ---
Nurse's Notes [facility] Name: Mark Terrell Age: 67 yrs Sex: Male : 1950 Arrival Date: 08/09/2018 Time: 11:53 Bed 7 Private MD: Diagnosis: Chronic obstructive pulmonary disease with (acute) exacerbation;Unspecified combined systolic (congestive) and diastolic (congestive) heart failure Presentation: 08/09 11:53 Presenting complaint: Patient states: SOB and increased swelling in lower extremities la1 for the last hour. Transition of care: patient was not received from another setting of care. Onset of symptoms was August 09, 2018. Risk Assessment: Do you want to hurt yourself or someone else? Patient reports no desire to harm self or others. Initial Sepsis Screen: Does the patient meet any 2 criteria? No. Patient's initial sepsis screen is negative. Does the patient have a suspected source of infection? No. Patient's initial sepsis screen is negative. Care prior to arrival: None. 11:53 Method Of Arrival: EMS: [facility] la1 11:53 Acuity: ARIEL 2 la1 Historical: - Allergies: 11:55 Benadryl; la1 - PMHx: 11:55 CHF; COPD; Hypertension; Prostate Cancer; la1 - Immunization history:: Adult Immunizations up to date. - Social history:: Smoking status: Patient uses tobacco products, smokes one pack cigarettes per day. - Ebola Screening: : No symptoms or risks identified at this time. Screenin:57 Abuse screen: Denies threats or abuse. Abuse screen: Denies injuries from another. la1 Nutritional screening: No deficits noted. Tuberculosis screening: No symptoms or risk factors identified. Fall Risk None identified. Assessment: 11:55 General: Appears unkempt, malnourished, Behavior is cooperative. Pain: Denies pain. la1 Neuro: Level of Consciousness is awake, alert, obeys commands, Oriented to person, place, time, situation. Cardiovascular: Capillary refill < 3 seconds Patient's skin is warm and dry. Rhythm is sinus rhythm. Cardiovascular: Edema is 2+ to left midcalf, left ankle, right midcalf and right ankle pitting to left midcalf, left ankle, right midcalf and right ankle. Respiratory: Airway is patent Respiratory effort is even, unlabored, Respiratory pattern is regular, symmetrical, Breath sounds are coarse bilaterally. Respiratory: the patient has mild shortness of breath. GI: No signs and/or symptoms were reported involving the gastrointestinal system. : No signs and/or symptoms were reported regarding the genitourinary system. 13:36 Reassessment: Patient appears in no apparent distress at this time. No changes from la1 previously documented assessment. Patient and/or family updated on plan of care and expected duration. Pain level reassessed. Patient is alert, oriented x 3, equal unlabored respirations, skin warm/dry/pink. 15:34 Reassessment: Patient appears in no apparent distress at this time. No changes from la1 previously documented assessment. Patient and/or family updated on plan of care and expected duration. Pain level reassessed. Patient is alert, oriented x 3, equal unlabored respirations, skin warm/dry/pink. 16:41 Reassessment: Patient appears in no apparent distress at this time. No changes from la1 previously documented assessment. Patient and/or family updated on plan of care and expected duration. Pain level reassessed. Patient is alert, oriented x 3, equal unlabored respirations, skin warm/dry/pink. Vital Signs: 11:55 BP 174 / 116; Pulse 89; Resp 28; Temp 97.8; Pulse Ox 96% on R/A; la1 12:09 BP 159 / 94; Pulse 98; Resp 28; Pulse Ox 96% on R/A; la1 13:35 BP 159 / 94; Pulse 97; Resp 30; Pulse Ox 98% on R/A; la1 14:28 BP 128 / 88; Pulse 98; Resp 24; Pulse Ox 96% on R/A; la1 15:33 BP 115 / 79; Pulse 74; Resp 28; Pulse Ox 98% on R/A; la1 ED Course: 11:30 EKG done, by ED staff, reviewed by Satish ADAMES. 3 11:53 Patient arrived in ED. la1 11:54 Satish Michel PA is PHCP. cp 11:54 Ryan Vasquez MD is Attending Physician. cp 11:54 Triage completed. la1 11:55 Arm band placed on right wrist. la1 11:57 Call light in reach. Side rails up X 1. Pulse ox on. NIBP on. la1 12:10 Tony, Maxime, RN is Primary Nurse. tr5 13:03 XRAY Chest (1 view) In Process Unspecified. EDMS 17:00 Diet: Patient given a regular meal tray. Tolerated well. jp3 17:00 Diet tray given. jp3 Administered Medications: 12:20 Drug: Albuterol - atroVENT (3:1) (2.5 mg - 0.5 mg) 3 ml Route: Nebulizer; la1 13:37 Follow up: Response: No adverse reaction la1 12:20 Drug: Metoprolol 50 mg Route: PO; la1 13:37 Follow up: Response: No adverse reaction la1 12:20 Drug: predniSONE 60 mg Route: PO; la1 13:37 Follow up: Response: No adverse reaction la1 13:51 Drug: Lasix 40 mg Route: IVP; Site: right forearm; la1 15:52 Follow up: Response: pt voided 400cc in urinal la1 13:51 Drug: Aspirin Chewable Tablet 324 mg Route: PO; la1 15:51 Follow up: Response: No adverse reaction la1 Outcome: 16:52 Discharge ordered by . garcia 17:32 Patient left the ED. hb Signatures: Dispatcher [employer] EDMS Dilip Jimenez RN RN la1 Satish Michel PA PA cp Baxter, Heather, RN RN Kelly Meade 3 Tolu Yoder 3 Maxime Jimenez, LASHAY RN tr5 Corrections: (The following items were deleted from the chart) 13:52 11:55 BP 174 / 116; Pulse 89bpm; Resp 18bpm; Pulse Ox 96% RA; Temp 97.8F; la1 la1 13:52 12:09 BP 159 / 94; Pulse 98bpm; Resp 16bpm; Pulse Ox 96% RA; la1 la1 13:52 13:35 BP 159 / 94; Pulse 97bpm; Resp 20bpm; Pulse Ox 98% RA; la1 la1 14:29 14:28 BP 128 / 88; Pulse 98bpm; Resp 16bpm; Pulse Ox 96% RA; la1 la1
--- NOTE | 2018-08-09 16:52 | EDPHYS ---
Physician Documentation [facility] Name: Mark Terrell Age: 67 yrs Sex: Male : 1950 Arrival Date: 08/09/2018 Time: 11:53 Bed 7 Private MD: ED Physician Ryan Vasquez HPI: 08/09 12:05 This 67 yrs old Male presents to ER via EMS with complaints of Shortness Of cp Breath. 12:05 The patient has shortness of breath at rest. cp 12:05 Onset: The symptoms/episode began/occurred today. Duration: The symptoms are cp continuous. Associated signs and symptoms: Pertinent positives: swelling in lower legs, Pertinent negatives: chest pain, productive cough, fever, hemoptysis, vomiting. Severity of symptoms: in the emergency department the symptoms are unchanged. The patient has experienced similar episodes in the past, chronically. Patient admits to being noncompliant with prescribed meds and has not taking any medications since last ED visit. Historical: - Allergies: 11:55 Benadryl; la1 - PMHx: 11:55 CHF; COPD; Hypertension; Prostate Cancer; la1 - Immunization history:: Adult Immunizations up to date. - Social history:: Smoking status: Patient uses tobacco products, smokes one pack cigarettes per day. - Ebola Screening: : No symptoms or risks identified at this time. ROS: 12:10 Constitutional: Negative for body aches, chills, fever, poor PO intake. cp 12:10 Eyes: Negative for injury, pain, redness, and discharge. cp 12:10 ENT: Negative for drainage from ear(s), ear pain, sore throat, difficulty swallowing, difficulty handling secretions. 12:10 Cardiovascular: Positive for edema, Negative for chest pain, palpitations. 12:10 Respiratory: Positive for shortness of breath, at rest. Negative for cough, hemoptysis. 12:10 Abdomen/GI: Negative for abdominal pain, nausea, vomiting, and diarrhea, black/tarry stool, rectal bleeding. 12:10 Back: Negative for pain at rest, pain with movement. 12:10 : Negative for urinary symptoms. 12:10 Skin: Negative for cellulitis, rash. 12:10 Neuro: Negative for altered mental status, headache, syncope, weakness. 12:10 All other systems are negative. Exam: 12:15 ECG was reviewed by the Attending Physician. cp 12:17 Constitutional: The patient appears in no acute distress, alert, awake, cp non-diaphoretic, non-toxic, well developed, well nourished. 12:17 Head/Face: Normocephalic, atraumatic. cp 12:17 Eyes: Periorbital structures: appear normal, Pupils: equal, round, and reactive to light and accomodation, Extraocular movements: intact throughout, Conjunctiva: normal, no exudate, no injection, Sclera: no appreciated abnormality, Lids and lashes: appear normal, bilaterally. 12:17 ENT: External ear(s): are unremarkable, Ear canal(s): are normal, clear, TM's: dullness, bilaterally, Nose: is normal, Mouth: is normal, Posterior pharynx: is normal, airway is patent, no erythema, no exudate. 12:17 Neck: ROM/movement: is normal, is supple, without pain, no range of motions limitations, no meningismus, no nuchal rigidity. 12:17 Chest/axilla: Inspection: normal, Palpation: is normal, no crepitus, no tenderness. 12:17 Cardiovascular: Rate: normal, Rhythm: regular, Edema: ankle edema, that is mild, JVD: is not appreciated. 12:17 Respiratory: the patient does not display signs of respiratory distress, Respirations: labored breathing, that is mild, intercostal retractions, are absent, shallow respirations, are not present, splinting, is not noted, tachypnea, that is mild, Breath sounds: decreased breath sounds, are not appreciated, stridor, is not appreciated, wheezing: that is mild, is heard diffusely. 12:17 Abdomen/GI: Inspection: abdomen appears normal, Bowel sounds: active, all quadrants, Palpation: abdomen is soft and non-tender, in all quadrants, rebound tenderness, is not appreciated, voluntary guarding, is not appreciated, involuntary guarding, is not appreciated. 12:17 Back: pain, is absent, ROM is normal. 12:17 Skin: cellulitis, is not appreciated. 12:17 Neuro: Orientation: to person, place \T\ time. Mentation: is normal, Cerebellar function: is grossly normal, Motor: moves all fours, strength is normal, Sensation: no obvious gross deficits. 16:09 ECG was reviewed by the Attending Physician. Vital Signs: 11:55 BP 174 / 116; Pulse 89; Resp 28; Temp 97.8; Pulse Ox 96% on R/A; la1 12:09 BP 159 / 94; Pulse 98; Resp 28; Pulse Ox 96% on R/A; la1 13:35 BP 159 / 94; Pulse 97; Resp 30; Pulse Ox 98% on R/A; la1 14:28 BP 128 / 88; Pulse 98; Resp 24; Pulse Ox 96% on R/A; la1 15:33 BP 115 / 79; Pulse 74; Resp 28; Pulse Ox 98% on R/A; la1 MDM: 11:59 Patient medically screened. cp 12:00 Differential diagnosis: Bronchitis CHF exacerbation, Chronic Obstructive Pulmonary cp Disease Myocardial Infarction pneumonia, pulmonary edema, Pulmonary Embolism Unstable Angina. 16:51 Antibiotic administration: Not indicated, the patient does not have an appreciated cp infiltrate. 16:51 Data reviewed: vital signs, nurses notes, lab test result(s), EKG, radiologic studies, cp plain films. Test interpretation: by ED physician or midlevel provider: ECG, plain radiologic studies. Counseling: I had a detailed discussion with the patient and/or guardian regarding: the historical points, exam findings, and any diagnostic results supporting the discharge/admit diagnosis, lab results, radiology results, the need for outpatient follow up, an profiling machine set up operator tool, to return to the emergency department if symptoms worsen or persist or if there are any questions or concerns that arise at home. Response to treatment: the patient's symptoms have markedly improved after treatment, VSS. Symptoms markedly improved. Patient never hypoxic while being monitored in ED. Patient encouraged to take meds as prescribed and f/u with primary physician. 08/09 11:55 Order name: Basic Metabolic Panel cp 08/09 11:55 Order name: CBC with Diff; Complete Time: 14:01 cp 08/09 11:55 Order name: LFT's; Complete Time: 13:10 08/09 13:10 Interpretation: Normal except: BILIT 2.5; BILID 0.8; TP 6.1; ALB 3.3. cp 08/09 11:55 Order name: Magnesium; Complete Time: 13:10 08/09 11:55 Order name: NT PRO-BNP; Complete Time: 13:10 cp 08/09 11:56 Order name: Basic Metabolic Panel; Complete Time: 13:10 EDMS 08/09 13:12 Interpretation: Normal except: GLUC 108; BUN 29; CRE 1.59; GFR 44. cp 08/09 11:55 Order name: XRAY Chest (1 view); Complete Time: 14:01 cp 08/09 11:59 Order name: Troponin I; Complete Time: 13:10 cp 08/09 13:11 Interpretation: Abnormal: TROP 0.06. cp 08/09 12:55 Order name: Manual Differential; Complete Time: 14:01 EDMS 08/09 15:19 Order name: Troponin I; Complete Time: 16:50 cp 08/09 16:50 Interpretation: Abnormal: TROP 0.05. cp 08/09 11:55 Order name: EKG; Complete Time: 11:57 cp 08/09 11:55 Order name: Cardiac monitoring; Complete Time: 12:08 cp 08/09 11:55 Order name: EKG - Nurse/Tech; Complete Time: 12:08 cp 08/09 11:55 Order name: IV Saline Lock; Complete Time: 12:08 cp 08/09 11:55 Order name: Labs collected and sent; Complete Time: 12:08 cp 08/09 11:55 Order name: O2 Per Protocol; Complete Time: 12:08 cp 08/09 11:55 Order name: O2 Sat Monitoring; Complete Time: 12:09 cp 08/09 12:08 Order name: Diet High Fiber; Complete Time: 12:08 ag 08/09 12:08 Order name: Diet Heart Healthy; Complete Time: 12:09 ag 08/09 15:19 Order name: EKG; Complete Time: 15:22 cp 08/09 15:19 Order name: EKG - Nurse/Tech; Complete Time: 16:03 cp EC:15 Rate is 99 beats/min. Rhythm is regular. OK interval is normal. QRS interval is cp prolonged at 108 msec. QT interval is prolonged at 410 msec. Interpreted by me. Reviewed by me. 16:09 Rate is 75 beats/min. Rhythm is regular. OK interval is normal. QRS interval is cp prolonged at 112 msec. QT interval is prolonged. T waves are Inverted in leads V5, V6. Interpreted by me. Reviewed by me. Administered Medications: 12:20 Drug: Albuterol - atroVENT (3:1) (2.5 mg - 0.5 mg) 3 ml Route: Nebulizer; la1 13:37 Follow up: Response: No adverse reaction la1 12:20 Drug: Metoprolol 50 mg Route: PO; la1 13:37 Follow up: Response: No adverse reaction la1 12:20 Drug: predniSONE 60 mg Route: PO; la1 13:37 Follow up: Response: No adverse reaction la1 13:51 Drug: Lasix 40 mg Route: IVP; Site: right forearm; la1 15:52 Follow up: Response: pt voided 400cc in urinal la1 13:51 Drug: Aspirin Chewable Tablet 324 mg Route: PO; la1 15:51 Follow up: Response: No adverse reaction la1 Disposition: 18:35 Co-signature as Attending Physician, Ryan Vasquez MD. rn Disposition: 08/09/18 16:52 Discharged to Home. Impression: Chronic obstructive pulmonary disease with (acute) exacerbation, Unspecified combined systolic (congestive) and diastolic (congestive) heart failure. - Condition is Stable. - Discharge Instructions: Heart Failure, Chronic Obstructive Pulmonary Disease Exacerbation. - Prescriptions for Prednisone 20 mg Oral Tablet - take 2 tablet by ORAL route once daily for 5 days; 10 tablet. Albuterol Sulfate 90 mcg/actuation - inhale 1-2 puff by INHALATION route every 4-6 hours; 1 Inhaler. Metoprolol Tartrate 50 mg Oral Tablet - take 1 tablet by ORAL route 2 times per day take with meal; 30 tablet. - Medication Reconciliation Form, Thank You Letter, Antibiotic Education, Prescription Opioid Use form. - Follow up: Private Physician; When: 1 - 2 days; Reason: Recheck today's complaints. - Problem is an acute exacerbation. - Symptoms have improved. Signatures: Dispatcher [employer] EDMS Ryan Vasquez MD MD rn Attema, Lee, RN RN la1 Satish Michel PA PA cp Baxter, Heather, RN RN hb Corrections: (The following items were deleted from the chart) 17:32 16:52 08/09/2018 16:52 Discharged to Home. Impression: Chronic obstructive pulmonary hb disease with (acute) exacerbation; Unspecified combined systolic (congestive) and diastolic (congestive) heart failure. Condition is Stable. Forms are Medication Reconciliation Form, Thank You Letter, Antibiotic Education, Prescription Opioid Use. Follow up: Private Physician; When: 1 - 2 days; Reason: Recheck today's complaints. Problem is an acute exacerbation. Symptoms have improved. cp
[2018-08-09 17:44] VITALS: TEMP 97.8
[2018-08-09 17:49] VITALS: BP 115/79; O2SAT 98
--- NOTE | 2018-08-10 09:55 | EKG ---
Test Date: 2018-08-09 Test Time: 16:07:44 Supervisor [employer]: ZEFERINO MEASUREMENT RESULTS: Intervals: Rate: 75 WY: 146 QRSD: 112 QT: 504 QTc: 562 Jbphh: P: 73 WY: 146 QRS: 95 T: 90 INTERPRETIVE STATEMENTS: Sinus rhythm with occasional premature ventricular complexes Rightward axis ST & T wave abnormality, consider lateral ischemia Prolonged QT Abnormal ECG Compared to ECG 08/09/2018 12:06:32 ST (T wave) deviation now present Possible ischemia now present Atrial premature complex(es) no longer present Electronically Signed On 08-10-18 09:54:41 CDT by Jitendra Willams
--- NOTE | 2018-08-10 09:57 | EKG ---
Test Date: 2018-08-09 Test Time: 12:06:32 Inspector Process: ZEFERINO MEASUREMENT RESULTS: Intervals: Rate: 99 MD: 150 QRSD: 108 QT: 410 QTc: 526 [place]: P: 74 MD: 150 QRS: 93 T: 25 INTERPRETIVE STATEMENTS: Sinus rhythm with occasional premature ventricular complexes and premature atrial complexes Rightward axis Prolonged QT Abnormal ECG Compared to ECG 08/04/2018 19:16:03 Atrial premature complex(es) now present Right-axis deviation now present Electronically Signed On 08-10-18 09:55:25 CDT by Jitendra Willams
== END 2018-08-09 17:32 | disposition home or self-care (01) ==
LOC: ER 11:51
DX: J44.1 Chronic obstructive pulmonary disease with (acute) exacerbation (principal); I50.40 Unspecified combined systolic (congestive) and diastolic (congestive) heart failure; I10 Essential (primary) hypertension; F17.210 Nicotine dependence, cigarettes, uncomplicated; Z85.46 Personal history of malignant neoplasm of prostate; Z88.8 Allergy status to other drugs, medicaments and biological substances
CPT/HCPCS: 93005 ×2; 85025; 80048; 36415; 83735; 80076; 84484 ×2; 83880; 71045; 94640; 96374; 99285; J1940; J7512

== ENCOUNTER 2018-08-11 04:16 | Emergency (ER) | payer OTHER ==
--- OUTSIDE RECORDS SUMMARY | 2018-08-11 04:18 | XMS REPORT ---
:1950 [facility] Address [address] [place] [address] Care Team Providers Name Role Phone Unavailable [...] 1 View 2017-12-22 23:14:17 Patient: JOSTIN BURTON [facility] Date/Time12/22/2017 22:58 CDTReason for ExamCHF (Congestive [...]
--- NOTE | 2018-08-11 04:29 | ER ---
Nurse's Notes [facility] Name: Mark Terrell Age: 67 yrs Sex: Male : 1950 Arrival Date: 08/11/2018 Time: 04:19 Bed 19 [facility] MD: Diagnosis: Chronic obstructive pulmonary disease with (acute) exacerbation Presentation: 08/11 04:19 Presenting complaint: EMS states: EMS reports he stated he was SOB. Pt sating 100% room ea air upon EMS arrival. Pt given Albuterol per EMS. Transition of care: patient was not received from another setting of care. Onset of symptoms was August 11, 2018. Risk Assessment: Do you want to hurt yourself or someone else? Patient reports no desire to harm self or others. Initial Sepsis Screen: Does the patient meet any 2 criteria? No. Patient's initial sepsis screen is negative. Does the patient have a suspected source of infection? No. Patient's initial sepsis screen is negative. Care prior to arrival: Medication(s) given: Albuterol Neb x 1. 04:19 Method Of Arrival: EMS: [facility] ea 04:19 Acuity: ARIEL 3 ea Triage Assessment: 04:27 General: Appears in no apparent distress. Respiratory: Reports shortness of breath at ea rest Onset: The symptoms/episode began/occurred this morning, the patient has mild shortness of breath. Historical: - Allergies: 04:25 Benadryl; ea - PMHx: 04:25 CHF; COPD; Hypertension; Prostate Cancer; ea - Immunization history:: Adult Immunizations up to date. - Social history:: Smoking status: Patient/guardian denies using tobacco, Patient/guardian denies using alcohol, street drugs, The patient lives with family. - Ebola Screening: : No symptoms or risks identified at this time. - Family history:: not pertinent. Screenin:24 Abuse screen: Denies threats or abuse. Nutritional screening: No deficits noted. ea Tuberculosis screening: No symptoms or risk factors identified. Fall Risk None identified. Assessment: 04:26 General: Appears in no apparent distress. Behavior is calm, cooperative, appropriate ea for age. Pain: Denies pain. Neuro: Level of Consciousness is awake, alert, obeys commands, Oriented to person, place, time, situation. Cardiovascular: Patient's skin is warm and dry. Respiratory: Airway is patent Respiratory effort is even, unlabored, Respiratory pattern is regular, symmetrical, Breath sounds are diminished bilaterally. Derm: Skin is pink, warm \T\ dry. Musculoskeletal: Circulation, motion, and sensation intact. 04:30 Cardiovascular: Rhythm is regular. cc3 05:25 Reassessment: Patient appears in no apparent distress at this time. Patient and/or cc3 family updated on plan of care and expected duration. Pain level reassessed. Patient is alert, oriented x 3, equal unlabored respirations, skin warm/dry/pink. Dr. Huitron discharged the patient home, no prescription given. No IV cannula in situ. Patient left ER vitally stable and ambulatory. Patient denies pain at this time. Patient states feeling better. Patient states symptoms have improved. Vital Signs: 04:23 BP 150 / 112; Pulse 98; Resp 20; Temp 98.4; Pulse Ox 98% on R/A; Weight 74.39 kg; ea Height 5 ft. 11 in. (180.34 cm); 05:15 BP 143 / 97; Pulse 96; Resp 20 S; Temp 98.3(O); Pulse Ox 97% on R/A; cc3 04:23 Body Mass Index 22.87 (74.39 kg, 180.34 cm) ea ED Course: 04:19 Patient arrived in ED. ea 04:23 Triage completed. ea 04:23 Jose Huitron MD is Attending Physician. ma2 04:25 Patient has correct armband on for positive identification. Bed in low position. Call ea light in reach. Side rails up X2. 04:26 Arm band placed on right wrist. Patient placed in an exam room, on a stretcher, on ea pulse oximetry. 05:25 No provider procedures requiring assistance completed. Patient did not have IV access cc3 during this emergency room visit. Administered Medications: 04:31 Drug: Albuterol - atroVENT (3:1) (2.5 mg - 0.5 mg) 3 ml Route: Nebulizer; ea 05:15 Follow up: Response: No adverse reaction; Marked relief of symptoms cc3 Outcome: 04:28 Discharge ordered by . ma2 05:25 Discharged to home ambulatory. cc3 05:25 Condition: stable 05:25 Discharge instructions given to patient, Instructed on discharge instructions, follow up and referral plans. Demonstrated understanding of instructions, follow-up care. 05:31 Patient left the ED. cc3 Signatures: Ana Camacho RN RN Jose Robertson MD MD il2 Maria De Jesus Mckee cc3
--- NOTE | 2018-08-11 04:29 | EDPHYS ---
Physician Documentation [facility] Name: Mark Terrell Age: 67 yrs Sex: Male : 1950 Arrival Date: 08/11/2018 Time: 04:19 Bed 19 Private MD: ED Physician Jose Huitron HPI: 08/11 04:26 This 67 yrs old Male presents to ER via EMS with complaints of Shortness Of ma2 Breath. 04:26 Onset: The symptoms/episode began/occurred gradually. Duration: The symptoms are ma2 chronic. Associated signs and symptoms: Pertinent negatives: diaphoresis, fever, nausea, visual changes. Severity of symptoms: At their worst the symptoms were mild in the emergency department the symptoms are unchanged. The patient has experienced similar episodes in the past. Historical: - Allergies: 04:25 Benadryl; ea - PMHx: 04:25 CHF; COPD; Hypertension; Prostate Cancer; ea - Immunization history:: Adult Immunizations up to date. - Social history:: Smoking status: Patient/guardian denies using tobacco, Patient/guardian denies using alcohol, street drugs, The patient lives with family. - Ebola Screening: : No symptoms or risks identified at this time. - Family history:: not pertinent. ROS: 04:26 Constitutional: Negative for fever, chills, and weight loss. ma2 04:26 Respiratory: Positive for cough, Negative for shortness of breath. 04:26 All other systems are negative. Exam: 04:26 Constitutional: This is a well developed, well nourished patient who is awake, alert, ma2 and in no acute distress. Chest/axilla: Normal chest wall appearance and motion. Nontender with no deformity. No lesions are appreciated. Cardiovascular: Regular rate and rhythm with a normal S1 and S2. No gallops, murmurs, or rubs. Normal PMI, no JVD. No pulse deficits. Respiratory: Lungs have equal breath sounds bilaterally, clear to auscultation and percussion. No rales, rhonchi or wheezes noted. No increased work of breathing, no retractions or nasal flaring. Abdomen/GI: Soft, non-tender, with normal bowel sounds. No distension or tympany. No guarding or rebound. No evidence of tenderness throughout. MS/ Extremity: Pulses equal, no cyanosis. Neurovascular intact. Full, normal range of motion. Neuro: Awake and alert, GCS 15, oriented to person, place, time, and situation. Cranial nerves II-XII grossly intact. Motor strength 5/5 in all extremities. Sensory grossly intact. Cerebellar exam normal. Normal gait. Psych: Awake, alert, with orientation to person, place and time. Behavior, mood, and affect are within normal limits. Vital Signs: 04:23 BP 150 / 112; Pulse 98; Resp 20; Temp 98.4; Pulse Ox 98% on R/A; Weight 74.39 kg; ea Height 5 ft. 11 in. (180.34 cm); 05:15 BP 143 / 97; Pulse 96; Resp 20 S; Temp 98.3(O); Pulse Ox 97% on R/A; cc3 04:23 Body Mass Index 22.87 (74.39 kg, 180.34 cm) ea MDM: 04:23 Patient medically screened. ma2 04:26 Differential diagnosis: CHF exacerbation, Psychogenic reactive airway disease. Data ma2 reviewed: vital signs, nurses notes. Counseling: I had a detailed discussion with the patient and/or guardian regarding: the historical points, exam findings, and any diagnostic results supporting the discharge/admit diagnosis, the presence of at least one elevated blood pressure reading (>120/80) during this emergency department visit, the need for outpatient follow up. Response to treatment: the patient's symptoms have markedly improved after treatment. Administered Medications: 04:31 Drug: Albuterol - atroVENT (3:1) (2.5 mg - 0.5 mg) 3 ml Route: Nebulizer; ea 05:15 Follow up: Response: No adverse reaction; Marked relief of symptoms cc3 Disposition: 08/11/18 04:28 Discharged to Home. Impression: Chronic obstructive pulmonary disease with (acute) exacerbation. - Condition is Stable. - Discharge Instructions: Chronic Obstructive Pulmonary Disease. - Medication Reconciliation Form, Thank You Letter, Antibiotic Education, Prescription Opioid Use form. - Follow up: Private Physician; When: Tomorrow; Reason: If symptoms return. Signatures: Ana Camacho RN RN ea Alzahri, Mohammad, MD MD ma2 Maria De Jesus Mckee cc3 Corrections: (The following items were deleted from the chart) 05:31 04:28 08/11/2018 04:28 Discharged to Home. Impression: Chronic obstructive pulmonary cc3 disease with (acute) exacerbation. Condition is Stable. Forms are Medication Reconciliation Form, Thank You Letter, Antibiotic Education, Prescription Opioid Use. Follow up: Private Physician; When: Tomorrow; Reason: If symptoms return. ma2
[2018-08-11] MEDS ORDERED: IPRATROPIUM BROM 0.5MG/2.5ML ONE (04:45)
[2018-08-11] MEDS ORDERED: ALBUTEROL 2.5 MG/3 ML NEB SOL ONE (04:45)
[2018-08-11 09:07] VITALS: BP 150/112; TEMP 98.4; O2SAT 98
== END 2018-08-11 05:31 | disposition home or self-care (01) ==
LOC: ER 04:16
DX: J44.1 Chronic obstructive pulmonary disease with (acute) exacerbation (principal); I10 Essential (primary) hypertension; Z85.46 Personal history of malignant neoplasm of prostate; Z88.8 Allergy status to other drugs, medicaments and biological substances
CPT/HCPCS: 94640; 99284

== ENCOUNTER 2018-08-12 17:20 | Emergency (ER) | payer OTHER ==
--- OUTSIDE RECORDS SUMMARY | 2018-08-12 17:22 | XMS REPORT ---
:1950 [facility] [address] [place] [address] Care Team Providers Name Role Phone Unavailable [...] 1 View 2017-12-22 23:14:17 Patient: JOSTIN BURTON [facility] Date/Time12/22/2017 22:58 CDTReason for ExamCHF (Congestive [...]
--- NOTE | 2018-08-12 18:22 | RAD REPORT ---
EXAM DESCRIPTION: RAD - Chest Pa And Lat (2 Views) - 08/12/2018 5:57 pm CLINICAL HISTORY: Dyspnea, shortness of breath COMPARISON: August 09 TECHNIQUE: PA and lateral views of the chest were obtained. FINDINGS: The lungs are normal volume. Chronic interstitial lung pattern has not clearly changed fro m comparison. Cardiomegaly matches prior study. Upper lobe vasculature similar or less pronounced. Left costophrenic angle blunting is present. No pneumothorax. No right-sided pleural effusion. No acu te bony finding noted. No aortic abnormality. IMPRESSION: Chronic interstitial lung disease not substantially different from comparison. This coul d potentially mask early edema or infiltrate. Minimal left pleural effusion.
--- NOTE | 2018-08-12 18:26 | ER ---
Nurse's Notes [facility] Name: Mark Terrell Age: 67 yrs Sex: Male : 1950 Arrival Date: 08/12/2018 Time: 17:24 Bed 20 Private MD: Diagnosis: Chronic obstructive pulmonary disease, unspecified Presentation: 08/12 17:24 Presenting complaint: EMS states: pt c/o SOB x 1 hour ago, vs stable, A\T\A x1 done. tw2 Transition of care: patient was not received from another setting of care. Onset of symptoms was August 12, 2018. Risk Assessment: Do you want to hurt yourself or someone else? Patient reports no desire to harm self or others. Initial Sepsis Screen: Does the patient meet any 2 criteria? No. Patient's initial sepsis screen is negative. Does the patient have a suspected source of infection? No. Patient's initial sepsis screen is negative. Care prior to arrival: None. 17:24 Method Of Arrival: EMS: [facility] tw2 17:24 Acuity: ARIEL 3 tw2 Triage Assessment: 17:25 General: Appears in no apparent distress. unkempt, Behavior is calm, cooperative, tw2 appropriate for age. Pain: Denies pain. Respiratory: Reports shortness of breath at rest Onset: The symptoms/episode began/occurred 1 hour ago, the patient has mild shortness of breath. Historical: - Allergies: 17:28 Benadryl; tw2 - PMHx: 17:28 Prostate Cancer; Hypertension; COPD; CHF; tw2 - Immunization history:: Adult Immunizations. - Social history:: Smoking status: . - Ebola Screening: : Patient denies travel to an Ebola-affected area in the 21 days before illness onset. Screenin:29 Abuse screen: Denies threats or abuse. Nutritional screening: No deficits noted. tw2 Tuberculosis screening: No symptoms or risk factors identified. Fall Risk None identified. Assessment: 17:29 General: Appears in no apparent distress. unkempt, Behavior is calm, cooperative, tw2 appropriate for age. Neuro: Level of Consciousness is awake, alert, obeys commands, Oriented to person, place, time, situation. Cardiovascular: Heart tones S1 S2 Patient's skin is warm and dry. Rhythm is regular. Cardiovascular: Edema is 2+ to left midcalf, left ankle, right midcalf and right ankle. Respiratory: Airway is patent Respiratory effort is even, unlabored, Respiratory pattern is regular, symmetrical, Breath sounds are clear bilaterally. GI: No signs and/or symptoms were reported involving the gastrointestinal system. Abdomen is round non-distended, Bowel sounds present X 4 quads. : No signs and/or symptoms were reported regarding the genitourinary system. EENT: No signs and/or symptoms were reported regarding the EENT system. Derm: No signs and/or symptoms reported regarding the dermatologic system. Musculoskeletal: Range of motion: intact in all extremities. 18:22 Reassessment: Patient appears in no apparent distress at this time. No changes from tw2 previously documented assessment. Patient and/or family updated on plan of care and expected duration. Pain level reassessed. Patient is alert, oriented x 3, equal unlabored respirations, skin warm/dry/pink. Vital Signs: 17:26 BP 141 / 88; Pulse 79; Resp 19; Temp 98.2(TE); Pulse Ox 99% on R/A; Pain 0/10; tw2 18:21 BP 145 / 69; Pulse 72; Resp 18; Pulse Ox 99% on R/A; tw2 ED Course: 17:24 Patient arrived in ED. tw2 17:24 Bed in low position. Call light in reach. compliance monitor on. Pulse ox on. NIBP on. tw2 17:25 Triage completed. tw2 17:25 Era Leung FNP-C is [facility]. kb 17:25 Eric Ochoa MD is Attending Physician. kb 17:25 Arm band placed on. tw2 17:30 Ana M Wagner RN is Primary Nurse. tw2 17:58 Chest Pa And Lat (2 Views) XRAY In Process Unspecified. EDMS 18:31 No provider procedures requiring assistance completed. Patient did not have IV access tw2 during this emergency room visit. Administered Medications: No medications were administered Outcome: 18:25 Discharge ordered by . kb 18:31 Discharged to home ambulatory. tw2 18:31 Condition: stable 18:31 Discharge instructions given to patient, Instructed on discharge instructions, follow up and referral plans. Demonstrated understanding of instructions, follow-up care. 18:32 Patient left the ED. tw2 Signatures: Dispatcher [employer] EDMS Era Leung FNP-C LEARN TO SWIM INSTRUCTOR-Ckb Ana M Wagner, RN RN tw2
--- NOTE | 2018-08-12 18:26 | EDPHYS ---
Physician Documentation [facility] Name: Mark Terrell Age: 67 yrs Sex: Male : 1950 Arrival Date: 08/12/2018 Time: 17:24 Bed 20 Private MD: ED Physician Eric Ochoa HPI: 08/12 17:26 This 67 yrs old Male presents to ER via EMS with complaints of Shortness Of kb Breath. 17:26 The patient has shortness of breath at rest, and the patient has a history of COPD, kb CHF. Onset: The symptoms/episode began/occurred 1.5 hour(s) ago. Duration: The symptoms are chronic. The patient's shortness of breath is aggravated by nothing, is alleviated by nothing. Associated signs and symptoms: Pertinent positives: non-productive cough, Pertinent negatives: chest pain, productive cough, diaphoresis, dizziness, fever, hemoptysis, loss of consciousness, nausea, numbness in extremities, visual changes, vomiting. Severity of symptoms: At their worst the symptoms were moderate in the emergency department the symptoms have improved. The patient has experienced similar episodes in the past, chronically. The patient has been recently seen at the [facility] Emergency Department, yesterday, this week, last week, a couple of weeks ago, last month, for similar complaints labs were performed, X-rays were performed. Pt reports he started having shortness of breath 1.5 hours ago. Reports history of COPD and CHF. Pt still smokes cigarettes. Denies chest pain, fever. Historical: - Allergies: 17:28 Benadryl; tw2 - PMHx: 17:28 Prostate Cancer; Hypertension; COPD; CHF; tw2 - Immunization history:: Adult Immunizations. - Social history:: Smoking status: . - Ebola Screening: : Patient denies travel to an Ebola-affected area in the 21 days before illness onset. ROS: 17:26 Constitutional: Negative for fever, chills, and weight loss, ENT: Negative for injury, kb pain, and discharge, Neck: Negative for injury, pain, and swelling, Cardiovascular: Negative for chest pain, palpitations, and edema, Abdomen/GI: Negative for abdominal pain, nausea, vomiting, diarrhea, and constipation, Back: Negative for injury and pain, MS/Extremity: Negative for injury and deformity, Skin: Negative for injury, rash, and discoloration, Neuro: Negative for headache, weakness, numbness, tingling, and seizure. 17:26 Respiratory: Positive for shortness of breath, wheezing, Negative for cough, dyspnea on exertion, hemoptysis, orthopnea, pleurisy. Exam: 17:26 Constitutional: This is a well developed, well nourished patient who is awake, alert, kb and in no acute distress. Head/Face: Normocephalic, atraumatic. Chest/axilla: Normal chest wall appearance and motion. Nontender with no deformity. No lesions are appreciated. Cardiovascular: Regular rate and rhythm with a normal S1 and S2. No gallops, murmurs, or rubs. Normal PMI, no JVD. No pulse deficits. Respiratory: Lungs have equal breath sounds bilaterally, clear to auscultation and percussion. No rales, rhonchi or wheezes noted. No increased work of breathing, no retractions or nasal flaring. Abdomen/GI: Soft, non-tender, with normal bowel sounds. No distension or tympany. No guarding or rebound. No evidence of tenderness throughout. Back: No spinal tenderness. No costovertebral tenderness. Full range of motion. Skin: Warm, dry with normal turgor. Normal color with no rashes, no lesions, and no evidence of cellulitis. MS/ Extremity: Pulses equal, no cyanosis. Neurovascular intact. Full, normal range of motion. Neuro: Awake and alert, GCS 15, oriented to person, place, time, and situation. Cranial nerves II-XII grossly intact. Motor strength 5/5 in all extremities. Sensory grossly intact. Cerebellar exam normal. Normal gait. 17:26 Cardiovascular: Edema: pedal edema, that is mild. Vital Signs: 17:26 BP 141 / 88; Pulse 79; Resp 19; Temp 98.2(TE); Pulse Ox 99% on R/A; Pain 0/10; tw2 18:21 BP 145 / 69; Pulse 72; Resp 18; Pulse Ox 99% on R/A; tw2 MDM: 17:25 Patient medically screened. kb 17:29 Data reviewed: vital signs, nurses notes. Data interpreted: Pulse oximetry: on room air kb is 99 %. Interpretation: normal. ED course: EMS reports pt's O2 sat was 95% and pt was wheezing bilaterally prior to neb treatment. Pt now 98% on room air, lungs clear bilaterally. 18:24 Counseling: I had a detailed discussion with the patient and/or guardian regarding: the kb historical points, exam findings, and any diagnostic results supporting the discharge/admit diagnosis, radiology results, the need for outpatient follow up, a family practitioner, to return to the emergency department if symptoms worsen or persist or if there are any questions or concerns that arise at home. 08/12 17:25 Order name: Chest Pa And Lat (2 Views) XRAY; Complete Time: 18:24 kb Administered Medications: No medications were administered Disposition: 08/12/18 18:25 Discharged to Home. Impression: Chronic obstructive pulmonary disease, unspecified. - Condition is Stable. - Discharge Instructions: Chronic Obstructive Pulmonary Disease. - Medication Reconciliation Form, Thank You Letter, Antibiotic Education, Prescription Opioid Use form. - Follow up: Emergency Department; When: As needed; Reason: Worsening of condition. Follow up: Private Physician; When: 2 - 3 days; Reason: Recheck today's complaints, Continuance of care, Re-evaluation by your physician. Signatures: Dispatcher [employer] EDRI Era Lueng, HEALTH PROMOTION SPECIALIST-C HEALTH PROMOTION SPECIALIST-Ana M Landin RN RN tw2 Corrections: (The following items were deleted from the chart) 18:32 18:25 08/12/2018 18:25 Discharged to Home. Impression: Chronic obstructive pulmonary tw2 disease, unspecified. Condition is Stable. Forms are Medication Reconciliation Form, Thank You Letter, Antibiotic Education, Prescription Opioid Use. Follow up: Emergency Department; When: As needed; Reason: Worsening of condition. Follow up: Private Physician; When: 2 - 3 days; Reason: Recheck today's complaints, Continuance of care, Re-evaluation by your physician. kb
[2018-08-12 18:45] VITALS: TEMP 98.2; O2SAT 99
[2018-08-13 02:44] VITALS: BP 145/69
== END 2018-08-12 18:32 | disposition home or self-care (01) ==
LOC: ER 17:20
DX: J44.9 Chronic obstructive pulmonary disease, unspecified (principal); I10 Essential (primary) hypertension; F17.210 Nicotine dependence, cigarettes, uncomplicated; Z85.46 Personal history of malignant neoplasm of prostate; Z88.8 Allergy status to other drugs, medicaments and biological substances
CPT/HCPCS: 71046; 99284

== ENCOUNTER 2018-08-15 11:28 | Emergency (ER) | payer OTHER ==
--- OUTSIDE RECORDS SUMMARY | 2018-08-15 11:32 | XMS REPORT ---
:1950 [facility] [address] [place] [address] Care Team Providers Name Role Phone Unavailable [...] 1 View 2017-12-22 23:14:17 Patient: JOSTIN BURTON [facility] Date/Time12/22/2017 22:58 CDTReason for ExamCHF (Congestive [...]
[2018-08-15] MEDS ORDERED: FUROSEMIDE 100 MG/10 ML VIAL IV ONE (12:17)
--- NOTE | 2018-08-15 13:18 | ER ---
Nurse's Notes [facility] Name: Mark Terrell Age: 67 yrs Sex: Male : 1950 Arrival Date: 08/15/2018 Time: 11:30 Bed 2 Private MD: Diagnosis: Chronic obstructive pulmonary disease with (acute) exacerbation;Heart failure Presentation: 08/15 11:31 Presenting complaint: EMS states: SHORTNESS OF BREATH. Transition of care: patient was bp not received from another setting of care. Onset of symptoms is unknown. Risk Assessment: Do you want to hurt yourself or someone else? Patient reports no desire to harm self or others. Initial Sepsis Screen: Does the patient meet any 2 criteria? No. Patient's initial sepsis screen is negative. Does the patient have a suspected source of infection? No. Patient's initial sepsis screen is negative. Care prior to arrival: Medication(s) given: Albuterol Neb x 1, Atrovent Neb x 1. 11:31 Method Of Arrival: EMS: [facility] bp 11:31 Acuity: ARIEL 3 bp Triage Assessment: 11:33 General: Appears in no apparent distress. comfortable, unkempt, Behavior is calm, bp appropriate for age. Pain: Denies pain. EENT: No deficits noted. Neuro: Level of Consciousness is awake, alert, obeys commands, Oriented to person, place, time, situation, Appropriate for age. Cardiovascular: No deficits noted. Respiratory: Reports shortness of breath on exertion Onset: The symptoms/episode began/occurred CHRONIC, the patient has mild shortness of breath. GI: No signs and/or symptoms were reported involving the gastrointestinal system. : No signs and/or symptoms were reported regarding the genitourinary system. Derm: No deficits noted. Musculoskeletal: Circulation, motion, and sensation intact. Range of motion: intact in all extremities. Historical: - Allergies: 11:33 Benadryl; bp - Home Meds: 11:33 NON-COMPLIANT [Active]; bp - PMHx: 11:33 CHF; COPD; Hypertension; Prostate Cancer; bp - Immunization history:: Adult Immunizations up to date. - Social history:: Smoking status: Patient uses tobacco products, smokes one pack cigarettes per day. - Ebola Screening: : No symptoms or risks identified at this time. Screenin:35 Abuse screen: Denies threats or abuse. Denies injuries from another. Nutritional bp screening: No deficits noted. Tuberculosis screening: No symptoms or risk factors identified. Fall Risk None identified. Assessment: 11:35 General: SEE TRIAGE NOTE. Cardiovascular: Rhythm is sinus rhythm. Respiratory: Airway bp is patent Respiratory effort is even, labored, Breath sounds are coarse bilaterally. 12:29 Reassessment: ALL CURRENT ORDERS COMPLETED, PT BEGINNING TO DIURESE. bp 13:16 Reassessment: ALL CURRENT ORDERS COMPLETED, DISPO PENDING. bp Vital Signs: 11:33 BP 165 / 116; Pulse 106; Resp 22; Temp 98; Pulse Ox 92% on R/A; Weight 90.72 kg; bp 12:27 BP 178 / 128; Pulse 108; Resp 24; Pulse Ox 100% on 10 lpm Nebulizer Mask; bp 13:15 BP 150 / 118; Pulse 100; Resp 23; Pulse Ox 93% on R/A; bp ED Course: 11:30 Patient arrived in ED. bp 11:30 Mike Yoo MD is Attending Physician. bp 11:32 Triage completed. bp 11:33 Satish Michel PA is PHCP. cp 11:34 Arm band placed on. bp 11:35 Patient has correct armband on for positive identification. Bed in low position. Call bp light in reach. Side rails up X2. 11:35 Maintain EMS IV. Dressing intact. Good blood return noted. Site clean \T\ dry. Gauge \T\ bp site: 20 GAUGE LEFT AC. 11:40 Joe Domingo, RN is Primary Nurse. bp 12:59 EKG done, by ED staff, reviewed by Mike Yoo MD. kj1 13:39 No provider procedures requiring assistance completed. IV discontinued, intact, iw bleeding controlled, No redness/swelling at site. Pressure dressing applied. Administered Medications: 11:45 Drug: Lasix 80 mg Route: IVP; Site: left antecubital; bp 12:48 Follow up: Response: No adverse reaction bp 12:50 Drug: Metoprolol TARTRATE (Lopressor) 50 mg Route: PO; bp 13:21 Follow up: Response: No adverse reaction bp 12:50 Drug: Enalaprilat 1.25 mg Route: IV; Rate: calculated rate; Site: left antecubital; bp 12:55 Follow up: IV Status: Completed infusion iw Outcome: 13:17 Discharge ordered by . gs 13:40 Discharged to home ambulatory. iw 13:40 Condition: good 13:40 Discharge instructions given to patient, Instructed on discharge instructions, follow up and referral plans. Demonstrated understanding of instructions, follow-up care. 13:40 Patient left the ED. iw Signatures: Sara Enrique RN RN iw Satish Michel PA PA cp Starr, Gregory, MD MD gs Peltier, Brian, RN RN Helene Leung kj1 Corrections: (The following items were deleted from the chart) 12:29 12:27 Pulse 108bpm; Resp 24bpm; Pulse Ox 99% Nebulizer Mask; bp bp
--- NOTE | 2018-08-15 13:18 | EDPHYS ---
Physician Documentation [facility] Name: Mark Terrell Age: 67 yrs Sex: Male : 1950 Arrival Date: 08/15/2018 Time: 11:30 Bed 2 Private MD: ED Physician Mike Yoo HPI: 08/15 13:32 This 67 yrs old Male presents to ER via EMS with complaints of Shortness Of gs Breath. 13:32 The patient has shortness of breath at rest. Onset: The symptoms/episode began/occurred gs 6 month(s) ago. Duration: The symptoms are intermittent. The patient's shortness of breath is aggravated by never taking his medications for copd and chf. Severity of symptoms: At their worst the symptoms were moderate in the emergency department the symptoms are unchanged. The patient has experienced similar episodes in the past, chronically. Historical: - Allergies: 11:33 Benadryl; bp - Home Meds: 11:33 NON-COMPLIANT [Active]; bp - PMHx: 11:33 CHF; COPD; Hypertension; Prostate Cancer; bp - Immunization history:: Adult Immunizations up to date. - Social history:: Smoking status: Patient uses tobacco products, smokes one pack cigarettes per day. - Ebola Screening: : No symptoms or risks identified at this time. ROS: 13:32 All other systems are negative. gs Exam: 13:32 Constitutional: The patient appears alert, awake. gs 13:40 Head/Face: Normocephalic, atraumatic. Eyes: Pupils equal round and reactive to light, gs extra-ocular motions intact. Lids and lashes normal. Conjunctiva and sclera are non-icteric and not injected. Cornea within normal limits. Periorbital areas with no swelling, redness, or edema. ENT: Nares patent. No nasal discharge, no septal abnormalities noted. Tympanic membranes are normal and external auditory canals are clear. Oropharynx with no redness, swelling, or masses, exudates, or evidence of obstruction, uvula midline. Mucous membranes moist. Neck: Trachea midline, no thyromegaly or masses palpated, and no cervical lymphadenopathy. Supple, full range of motion without nuchal rigidity, or vertebral point tenderness. No Meningismus. Chest/axilla: Normal chest wall appearance and motion. Nontender with no deformity. No lesions are appreciated. 13:40 Respiratory: Lungs have equal breath sounds bilaterally, clear to auscultation and percussion. No rales, rhonchi or wheezes noted. No increased work of breathing, no retractions or nasal flaring. Abdomen/GI: Soft, non-tender, with normal bowel sounds. No distension or tympany. No guarding or rebound. No evidence of tenderness throughout. Back: No spinal tenderness. No costovertebral tenderness. Full range of motion. Skin: Warm, dry with normal turgor. Normal color with no rashes, no lesions, and no evidence of cellulitis. MS/ Extremity: Pulses equal, no cyanosis. Neurovascular intact. Full, normal range of motion. Neuro: Awake and alert, GCS 15, oriented to person, place, time, and situation. Cranial nerves II-XII grossly intact. Motor strength 5/5 in all extremities. Sensory grossly intact. Cerebellar exam normal. Normal gait. 13:40 Cardiovascular: Rate: tachycardic, Rhythm: regular, Pulses: no pulse deficits are appreciated. 13:40 ECG was reviewed by the Attending Physician. 13:40 Cardiovascular: Edema: 2+ edema to level of left midcalf and right midcalf. Vital Signs: 11:33 BP 165 / 116; Pulse 106; Resp 22; Temp 98; Pulse Ox 92% on R/A; Weight 90.72 kg; bp 12:27 BP 178 / 128; Pulse 108; Resp 24; Pulse Ox 100% on 10 lpm Nebulizer Mask; bp 13:15 BP 150 / 118; Pulse 100; Resp 23; Pulse Ox 93% on R/A; bp MDM: 11:31 Patient medically screened. 13:40 Differential diagnosis: CHF exacerbation, Chronic Obstructive Pulmonary Disease. Data gs reviewed: vital signs, nurses notes. Response to treatment: the patient's symptoms have markedly improved after treatment, and as a result, I will discharge patient. 08/15 11:35 Order name: EKG - Nurse/Tech; Complete Time: 12:13 08/15 12:17 Order name: Vital Signs; Complete Time: 12:24 EC:40 Clinical impression: Abnormal EKG without significant change. Interpreted by me. Administered Medications: 11:45 Drug: Lasix 80 mg Route: IVP; Site: left antecubital; bp 12:48 Follow up: Response: No adverse reaction bp 12:50 Drug: Metoprolol TARTRATE (Lopressor) 50 mg Route: PO; bp 13:21 Follow up: Response: No adverse reaction bp 12:50 Drug: Enalaprilat 1.25 mg Route: IV; Rate: calculated rate; Site: left antecubital; bp 12:55 Follow up: IV Status: Completed infusion iw Disposition: 08/15/18 13:17 Discharged to Home. Impression: Chronic obstructive pulmonary disease with (acute) exacerbation, Heart failure. - Condition is Stable. - Medication Reconciliation Form, Thank You Letter, Antibiotic Education, Prescription Opioid Use form. - Follow up: Private Physician; When: 2 - 3 days; Reason: Re-evaluation by your physician. Signatures: Sara Enrique RN RN Satish Michel PA PA cp Starr, Gregory, MD MD gs Peltier, Brian, RN RN bp Corrections: (The following items were deleted from the chart) 13:40 13:17 08/15/2018 13:17 Discharged to Home. Impression: Chronic obstructive pulmonary iw disease with (acute) exacerbation; Heart failure. Condition is Stable. Forms are Medication Reconciliation Form, Thank You Letter, Antibiotic Education, Prescription Opioid Use. Follow up: Private Physician; When: 2 - 3 days; Reason: Re-evaluation by your physician. gs
[2018-08-15] MEDS ORDERED: METOPROLOL TAR 50 MG TAB ONE (13:20)
[2018-08-15] MEDS ORDERED: ENALAPRILAT 1.25 MG/ML VIAL IV ONE (13:21)
[2018-08-15 13:46] VITALS: TEMP 98
[2018-08-15 13:49] VITALS: BP 150/118; O2SAT 93
--- NOTE | 2018-08-16 10:38 | EKG ---
Test Date: 2018-08-15 Test Time: 11:47:14 Radio [employer]r Domestic: VICTOR MANUEL MEASUREMENT RESULTS: Intervals: Rate: 104 UT: 142 QRSD: 110 QT: 382 QTc: 502 [place]: P: 75 UT: 142 QRS: 85 T: 40 INTERPRETIVE STATEMENTS: Sinus tachycardia with occasional premature ventricular complexes Otherwise normal ECG Compared to ECG 08/09/2018 16:07:44 Sinus rhythm no longer present Right-axis deviation no longer present ST (T wave) deviation no longer present Possible ischemia no longer present Prolonged QT interval no longer present Electronically Signed On 08-16-18 10:37:34 CDT by Jitendra Willams
== END 2018-08-15 13:40 | disposition home or self-care (01) ==
LOC: ER 11:28
DX: J44.1 Chronic obstructive pulmonary disease with (acute) exacerbation (principal); I11.0 Hypertensive heart disease with heart failure; I50.9 Heart failure, unspecified; C61 Malignant neoplasm of prostate; F17.210 Nicotine dependence, cigarettes, uncomplicated
CPT/HCPCS: 93005; 96374; 96375; 99284

== ENCOUNTER 2018-08-18 15:17 | Emergency (ER) | payer OTHER ==
--- OUTSIDE RECORDS SUMMARY | 2018-08-18 15:19 | XMS REPORT ---
:1950 [facility] [address] [place] [address] Care Team Providers Name Role Phone Unavailable [...] 1 View 2017-12-22 23:14:17 Patient: JOSTIN BURTON [facility] Date/Time12/22/2017 22:58 CDTReason for ExamCHF (Congestive [...]
--- NOTE | 2018-08-18 15:42 | RAD REPORT ---
EXAM DESCRIPTION: RAD - Chest Single View - 08/18/2018 3:36 pm CLINICAL HISTORY: chest pain, shortness of breath Chest pain. COMPARISON: Chest Pa And Lat (2 Views) dated 08/12/2018; Chest Single View dated 08/09/2018; Chest Sing le View dated 08/04/2018; Chest Single View dated 08/02/2018 FINDINGS: Portable technique limits examination quality. Mild interstitial pulmonary edema is seen. Trace pleural effusions. The heart is moderately enlarged. No displaced fractures. IMPRESSION: Mild CHF versus volume overload pattern.
[2018-08-18] MEDS ORDERED: LEVALBUTEROL 1.25 MG/3 ML NEB ONE (15:44)
[2018-08-18] MEDS ORDERED: FUROSEMIDE 40 MG/4 ML VIAL ONE (15:44)
[2018-08-18 16:01] LABS: Absolute Lymphocytes (CBC) 2.1 K/uL (0.7-4.9); Basophils % 0.5 % (0-1.3); Eosinophils % 1.3 % (0-4.4); Hematocrit 32.6 % (39.6-49.0); Lymphocytes % 17.2 % (15.3-44.8); RBC Red Blood Cell Count 5.69 M/uL (4.33-5.43)
[2018-08-18 16:04] LABS: Protime INR 1.51
--- NOTE | 2018-08-18 16:28 | EKG ---
Test Date: 2018-08-18 Test Time: 15:53:25 Soft Crab Shedder: JOHANA MEASUREMENT RESULTS: Intervals: Rate: 103 AK: 138 QRSD: 106 QT: 366 QTc: 479 [place]: P: 67 AK: 138 QRS: 91 T: 34 INTERPRETIVE STATEMENTS: Sinus tachycardia with occasional premature ventricular complexes Rightward axis Nonspecific ST and T wave abnormality Abnormal ECG Compared to ECG 08/15/2018 11:47:14 Right-axis deviation now present ST (T wave) deviation now present Electronically Signed On 08-18-18 16:27:09 CDT by Cyrus Porter
[2018-08-18 16:36] LABS: Albumin 2.9 g/dL (3.4-5.0); Bilirubin Direct 0.4 mg/dL (0-0.2); Bilirubin Total 0.9 mg/dL (0.2-1.0); Magnesium 2.2 mg/dL (1.8-2.4); Potassium 4.2 mmol/L (3.5-5.1); Protein, Total 5.8 g/dL (6.4-8.2); Troponin (Emerg Dept Use Only) 0.09 ng/mL (0.0-0.045)
--- NOTE | 2018-08-18 16:51 | RAD REPORT ---
EXAM DESCRIPTION: US - Extremity Venous Uni Ltd - 08/18/2018 4:17 pm CLINICAL HISTORY: swelling, pain, redness Leg swelling and edema. COMPARISON: <Comparisons> FINDINGS: Left lower extremity venous system was interrogated with Doppler technique. Normal flow, c ompressibility and augmentation was noted. There is no DVT present. IMPRESSION: No evidence of left lower extremity deep venous thrombosis.
[2018-08-18 17:27] LABS: Anisocytosis 1+; Blood Morphology Comment NOTED (NOT SEEN); Platelet Estimate ADEQ; Urine White Blood Cell Casts OK
[2018-08-18 17:28] LABS: Hypochromasia 1+; Ovalocytes 1+
--- NOTE | 2018-08-18 17:42 | EDPHYS ---
Physician Documentation [facility] Name: Mark Terrell Age: 67 yrs Sex: Male : 1950 Arrival Date: 08/18/2018 Time: 15:20 Bed 17 Private MD: ED Physician Puma Chi HPI: 08/18 15:25 This 67 yrs old Male presents to ER via EMS with complaints of Shortness Of jmm Breath. 15:25 The patient has shortness of breath at rest. Onset: The symptoms/episode began/occurred jmm today. Duration: The symptoms are continuous. The patient's shortness of breath has no apparent modifying factors. Associated signs and symptoms: Pertinent positives: chest pain. This is a 67 year old male with a history of chf, copd that presents to the ED with complaints of shortness of breath, wheezing worsening today. Patient also complains of chest pain with increased swelling and pain to his left leg. . Historical: - Allergies: 15:25 Benadryl; tw2 - Home Meds: 15:25 NON-COMPLIANT [Active]; tw2 - PMHx: 15:25 Prostate Cancer; Hypertension; COPD; CHF; tw2 - Immunization history:: Adult Immunizations unknown. - Social history:: Smoking status: Patient uses tobacco products, smokes one pack cigarettes per day. - Ebola Screening: : Patient denies travel to an Ebola-affected area in the 21 days before illness onset. ROS: 15:25 Constitutional: Negative for fever, chills, and weight loss. jmm 15:25 Cardiovascular: Positive for chest pain. 15:25 Respiratory: Positive for shortness of breath, wheezing. 15:25 MS/extremity: Positive for swelling. 15:25 All other systems are negative. Exam: 15:25 Constitutional: This is a well developed, well nourished patient who is awake, alert, jmm and in no acute distress. Head/Face: atraumatic. Eyes: EOMI, no conjunctival erythema appreciated ENT: Moist Mucus Membranes Neck: Trachea midline, Supple Chest/axilla: Normal chest wall appearance and motion. 15:25 Skin: General appearance color normal MS/ Extremity: Moves all extremities, no obvious deformities appreciated, no edema noted to the lower extremities Neuro: Awake and alert, normal gait Psych: Behavior is normal, Mood is normal, Patient is cooperative and pleasant 15:25 Cardiovascular: Rate: normal, Rhythm: regular. 15:25 Respiratory: mild respiratory distress is noted, Respirations: Breath sounds: wheezing: that is mild. 16:21 ECG was reviewed by the Attending Physician. [facility] Vital Signs: 15:22 BP 176 / 107; Pulse 105; Resp 20; Temp 98.8(O); Pulse Ox 100% on Nebulizer Mask, pt has tw2 axa tx going at this time; Pain 0/10; 16:13 BP 158 / 96; Pulse 103; Resp 20; Pulse Ox 100% on Nebulizer Mask; tw2 17:13 BP 175 / 98; Pulse 104; Resp 21; Pulse Ox 99% on R/A; tw2 17:45 BP 163 / 93; Pulse 104; Resp 20; Pulse Ox 99% on R/A; tw2 MDM: 15:20 Patient medically screened. [facility] 17:40 Data reviewed: vital signs, nurses notes. Counseling: I had a detailed discussion with [facility] the patient and/or guardian regarding: the historical points, exam findings, and any diagnostic results supporting the discharge/admit diagnosis, lab results, radiology results, the need for outpatient follow up, to return to the emergency department if symptoms worsen or persist or if there are any questions or concerns that arise at home. ED course: Patient states feeling much better in the ED. Patient has no chest pain on discharge. Patient is advised to follow up with pcp and to take medication as directed. Patient otherwise given strict return precautions. Patient understood and agrees with the plan of care. . 08/18 15:21 Order name: Basic Metabolic Panel; Complete Time: 17:09 [facility] 08/18 15:21 Order name: CBC with Diff; Complete Time: 17:33 [facility] 08/18 15:21 Order name: LFT's; Complete Time: 17:09 [facility] 08/18 15:21 Order name: Magnesium; Complete Time: 17:09 [facility] 08/18 15:21 Order name: NT PRO-BNP; Complete Time: 17:09 [facility] 08/18 15:21 Order name: PT-INR; Complete Time: 16:11 [facility] 08/18 15:21 Order name: Troponin (emerg Dept Use Only); Complete Time: 17:09 [facility] 08/18 15:21 Order name: XRAY Chest (1 view); Complete Time: 15:47 jmm 08/18 15:21 Order name: EKG; Complete Time: 15:25 jm 08/18 15:21 Order name: Cardiac monitoring; Complete Time: 15:27 jm 08/18 15:23 Order name: US Extremity Venous Unilateral Ltd; Complete Time: 17:09 jm 08/18 16:19 Order name: CBC Smear Scan; Complete Time: 17:33 EDME 08/18 15:21 Order name: EKG - Nurse/Tech; Complete Time: 16:44 jmm 08/18 15:21 Order name: IV Saline Lock; Complete Time: 15:45 jm 08/18 15:21 Order name: Labs collected and sent; Complete Time: 15:45 jm 08/18 15:21 Order name: O2 Per Protocol; Complete Time: 15:27 jm 08/18 15:21 Order name: O2 Sat Monitoring; Complete Time: 15:27 jmm EC:21 Rate is 103 beats/min. Rhythm is regular. Right axis deviation noted. ID interval is jmm normal. QRS interval is normal. QT interval is normal. T waves are Flattened in leads aVL, aVR. No ST changes noted. Administered Medications: 15:35 Drug: Xopenex (3) 1.25 mg Route: Inhalation; tw2 15:42 Drug: Lasix 40 mg Route: IVP; Site: right hand; tw2 16:44 Follow up: Response: No adverse reaction tw2 Disposition: 08/19 07:38 Co-signature as Attending Physician, Puma Chi MD I agree with the assessment and [facility] plan of care. Disposition: 08/18/18 17:41 Discharged to Home. Impression: Acute on chronic combined systolic (congestive) and diastolic (congestive) heart failure. - Condition is Stable. - Discharge Instructions: Heart Failure. - Prescriptions for Lasix 20 mg Oral Tablet - take 1 tablet by ORAL route once daily; 20 tablet. - Medication Reconciliation Form, Thank You Letter, Antibiotic Education, Prescription Opioid Use form. - Follow up: Private Physician; When: 2 - 3 days; Reason: Recheck today's complaints, Continuance of care, Re-evaluation by your physician. Signatures: Dispatcher [employer] Satish Johnson MD MD cha Rittger, Kevin, MD MD kdr Mickail, Joel, PA PA [facility] Wagner, Ana M, RN RN tw2 Corrections: (The following items were deleted from the chart) 08/18 17:51 17:41 08/18/2018 17:41 Discharged to Home. Impression: Acute on chronic combined tw2 systolic (congestive) and diastolic (congestive) heart failure. Condition is Stable. Forms are Medication Reconciliation Form, Thank You Letter, Antibiotic Education, Prescription Opioid Use. Follow up: Private Physician; When: 2 - 3 days; Reason: Recheck today's complaints, Continuance of care, Re-evaluation by your physician. [place]
--- NOTE | 2018-08-18 17:42 | ER ---
Nurse's Notes [facility] Name: Mark Terrell Age: 67 yrs Sex: Male : 1950 Arrival Date: 08/18/2018 Time: 15:20 Bed 17 Private MD: Diagnosis: Acute on chronic combined systolic (congestive) and diastolic (congestive) heart failure Presentation: 08/18 15:20 Presenting complaint: EMS states: pt reports being SOB for 2 hours, 98% room air, tw2 hypertensive at 170/100's. Transition of care: patient was not received from another setting of care. Onset of symptoms was August 18, 2018. Risk Assessment: Do you want to hurt yourself or someone else? Patient reports no desire to harm self or others. Initial Sepsis Screen: Does the patient meet any 2 criteria? Does the patient have a suspected source of infection? No. Patient's initial sepsis screen is negative. Care prior to arrival: None. 15:20 Method Of Arrival: EMS: [facility] tw2 15:20 Acuity: ARIEL 3 tw2 Triage Assessment: 15:22 General: Appears in no apparent distress. unkempt, Behavior is cooperative. Pain: tw2 Denies pain. EENT: No signs and/or symptoms were reported regarding the EENT system. Neuro: Level of Consciousness is awake, alert, obeys commands, Oriented to person, place, time, situation. Cardiovascular: Heart tones S1 S2 Patient's skin is warm and dry. Cardiovascular: Edema is 2+ to left midcalf, left ankle, right midcalf and right ankle. Respiratory: Reports shortness of breath at rest on exertion Airway is patent Respiratory effort is even, unlabored, Respiratory pattern is regular, symmetrical, Breath sounds are clear bilaterally. Onset: The symptoms/episode began/occurred 2 hours ago, the patient has mild shortness of breath. GI: No signs and/or symptoms were reported involving the gastrointestinal system. Abdomen is flat, Bowel sounds present X 4 quads. : No signs and/or symptoms were reported regarding the genitourinary system. Derm: Skin is dry, Skin is jaundiced. Musculoskeletal: Range of motion: intact in all extremities. Historical: - Allergies: 15:25 Benadryl; tw2 - Home Meds: 15:25 NON-COMPLIANT [Active]; tw2 - PMHx: 15:25 Prostate Cancer; Hypertension; COPD; CHF; tw2 - Immunization history:: Adult Immunizations unknown. - Social history:: Smoking status: Patient uses tobacco products, smokes one pack cigarettes per day. - Ebola Screening: : Patient denies travel to an Ebola-affected area in the 21 days before illness onset. Screenin:26 Abuse screen: Denies threats or abuse. Nutritional screening: No deficits noted. tw2 Tuberculosis screening: No symptoms or risk factors identified. Fall Risk Secondary diagnosis (15 points) impaired mobility. Assessment: 15:24 Reassessment: see triage assessment. Cardiovascular: Rhythm is regular. tw2 16:13 Reassessment: Patient appears in no apparent distress at this time. No changes from tw2 previously documented assessment. Patient and/or family updated on plan of care and expected duration. Pain level reassessed. Patient is alert, oriented x 3, equal unlabored respirations, skin warm/dry/pink. 17:12 Reassessment: Patient appears in no apparent distress at this time. No changes from tw2 previously documented assessment. Patient and/or family updated on plan of care and expected duration. Pain level reassessed. Patient is alert, oriented x 3, equal unlabored respirations, skin warm/dry/pink. Vital Signs: 15:22 BP 176 / 107; Pulse 105; Resp 20; Temp 98.8(O); Pulse Ox 100% on Nebulizer Mask, pt has tw2 axa tx going at this time; Pain 0/10; 16:13 BP 158 / 96; Pulse 103; Resp 20; Pulse Ox 100% on Nebulizer Mask; tw2 17:13 BP 175 / 98; Pulse 104; Resp 21; Pulse Ox 99% on R/A; tw2 17:45 BP 163 / 93; Pulse 104; Resp 20; Pulse Ox 99% on R/A; tw2 ED Course: 15:20 Patient arrived in ED. tw2 15:20 Jaime Hough PA is PHCP. dawood 15:20 Satish Catalan MD is Attending Physician. dawood 15:20 Bed in low position. Call light in reach. Side rails up X2. developer evangelist on. Pulse tw2 ox on. NIBP on. 15:21 Triage completed. tw2 15:21 Arm band placed on. tw2 15:33 X-ray completed. Portable x-ray completed in exam room. Patient tolerated procedure ml well. 15:37 XRAY Chest (1 view) In Process Unspecified. EDMS 15:40 Inserted saline lock: 22 gauge in right hand, using aseptic technique. Blood collected. tw2 Missed attempt(s): 20 gauge in right antecubital area. Bleeding controlled, band aid applied, catheter tip intact. Missed attempt(s): 22 gauge in right antecubital area. Bleeding controlled, band aid applied, catheter tip intact. 15:45 Ana M Wagner, RN is Primary Nurse. tw2 16:02 EKG done, by wind commissioning technician. reviewed by Jaime ADAMES. sm3 16:18 US Extremity Venous Unilateral Ltd In Process Unspecified. EDMS 17:33 Attending Physician role handed off by Satish Catalan MD [facility] 17:33 Puma Chi MD is Attending Physician. kdr 17:50 No provider procedures requiring assistance completed. IV discontinued, intact, tw2 bleeding controlled, No redness/swelling at site. Pressure dressing applied. Administered Medications: 15:35 Drug: Xopenex (3) 1.25 mg Route: Inhalation; tw2 15:42 Drug: Lasix 40 mg Route: IVP; Site: right hand; tw2 16:44 Follow up: Response: No adverse reaction tw2 Output: 17:45 Urine: 2500ml (Voided); Total: 2500ml. tw2 Outcome: 17:41 Discharge ordered by . [facility] 17:50 Discharged to home ambulatory. tw2 17:50 Condition: stable 17:50 Discharge instructions given to patient, Instructed on discharge instructions, follow up and referral plans. medication usage, Demonstrated understanding of instructions, follow-up care, medications, Prescriptions given X 1. 17:51 Patient left the ED. tw2 Signatures: Dispatcher [employer] EDMS Puma Chi MD MD kdr Jaime Hough PA PA jmm Lopez, Melissa ml Wise, Tara, LASHAY RN tw2 Sharri Luna 3
[2018-08-18 18:22] VITALS: TEMP 98.8
[2018-08-18 18:25] VITALS: O2SAT 99
[2018-08-18 18:27] VITALS: BP 163/93
== END 2018-08-18 17:51 | disposition home or self-care (01) ==
LOC: ER 15:17
DX: I11.0 Hypertensive heart disease with heart failure (principal); I50.43 Acute on chronic combined systolic (congestive) and diastolic (congestive) heart failure; C61 Malignant neoplasm of prostate; J44.9 Chronic obstructive pulmonary disease, unspecified; F17.210 Nicotine dependence, cigarettes, uncomplicated
CPT/HCPCS: 93005; 85025; 80048; 36415; 83735; 85610; 80076; 84484; 83880; 71045; 93971; 96374; 99285; J1940

== ENCOUNTER 2018-08-19 16:00 | Emergency (ER) | payer OTHER ==
--- OUTSIDE RECORDS SUMMARY | 2018-08-19 16:10 | XMS REPORT ---
:1950 [facility] [address] [place] [address] Care Team Providers Name Role Phone Unavailable [...] 1 View 2017-12-22 23:14:17 Patient: JOSTIN BURTON [facility] [place] Date/Time12/22/2017 22:58 CDTReason for ExamCHF (Congestive Heart [...]
[2018-08-19] MEDS ORDERED: predniSONE 20 MG TAB ONE (17:12)
[2018-08-19] MEDS ORDERED: FUROSEMIDE 40 MG TABLET ONE (17:12)
--- NOTE | 2018-08-19 18:12 | EDPHYS ---
Physician Documentation [facility] Name: Mark Terrell Age: 67 yrs Sex: Male : 1950 Arrival Date: 08/19/2018 Time: 16:05 Bed 27 Private MD: ED Physician Puma Chi HPI: 08/19 16:47 This 67 yrs old Male presents to ER via EMS with complaints of Shortness Of pm1 Breath. 16:47 The patient has shortness of breath at rest. Onset: The symptoms/episode began/occurred pm1 1 hour prior to arrival. Duration: The symptoms are continuous. The patient's shortness of breath is aggravated by nothing, is alleviated by nebulizer treatment, in route. Associated signs and symptoms: Pertinent positives: chest pain, non-productive cough, Pertinent negatives: fever, nausea, vomiting. Severity of symptoms: in the emergency department the symptoms have resolved Pain is currently a 0 / 10. The patient has experienced similar episodes in the past, multiple times. The patient has been recently seen at the [facility] Emergency Department, yesterday, for same complaint and discharged home. 16:47 Patient has not been taking his Lasix at home because he ran out. Patient's main pm1 complaint is increased swelling to lower bilateral extremities that is greater than his normal baseline. Historical: - Allergies: 16:09 Benadryl; aj1 - Home Meds: 16:09 NON-COMPLIANT [Active]; aj1 - PMHx: 16:09 CHF; COPD; Hypertension; Prostate Cancer; aj1 - Immunization history:: Flu vaccine is not up to date. - Social history:: Smoking status: Patient uses tobacco products, 5 cigarettes per day. - Ebola Screening: : Patient denies travel to an Ebola-affected area in the 21 days before illness onset. ROS: 16:47 Constitutional: Negative for fever, chills, and weight loss, Eyes: Negative for injury, pm1 pain, redness, and discharge, ENT: Negative for injury, pain, and discharge, Neck: Negative for injury, pain, and swelling, Abdomen/GI: Negative for abdominal pain, nausea, vomiting, diarrhea, and constipation. 16:47 Back: Negative for injury and pain, : Negative for injury, bleeding, discharge, and swelling, MS/Extremity: Negative for injury and deformity, Skin: Negative for injury, rash, and discoloration. 16:47 Neuro: Negative for headache, weakness, numbness, tingling, and seizure. 16:47 Cardiovascular: Positive for chest pain, edema, Negative for palpitations. 16:47 Respiratory: Positive for shortness of breath, Negative for sputum production. Exam: 16:47 Constitutional: This is a well developed, well nourished patient who is awake, alert, pm1 and in no acute distress. Head/Face: Normocephalic, atraumatic. Eyes: Pupils equal round and reactive to light, extra-ocular motions intact. Lids and lashes normal. Conjunctiva and sclera are non-icteric and not injected. Cornea within normal limits. Periorbital areas with no swelling, redness, or edema. ENT: Nares patent. No nasal discharge, no septal abnormalities noted. Tympanic membranes are normal and external auditory canals are clear. Oropharynx with no redness, swelling, or masses, exudates, or evidence of obstruction, uvula midline. Mucous membranes moist. Neck: Trachea midline, no thyromegaly or masses palpated, and no cervical lymphadenopathy. Supple, full range of motion without nuchal rigidity, or vertebral point tenderness. No Meningismus. Chest/axilla: Normal chest wall appearance and motion. Nontender with no deformity. No lesions are appreciated. Cardiovascular: Regular rate and rhythm with a normal S1 and S2. No gallops, murmurs, or rubs. Normal PMI, no JVD. No pulse deficits. Respiratory: Lungs have equal breath sounds bilaterally, clear to auscultation and percussion. No rales, rhonchi or wheezes noted. No increased work of breathing, no retractions or nasal flaring. Abdomen/GI: Soft, non-tender, with normal bowel sounds. No distension or tympany. No guarding or rebound. No evidence of tenderness throughout. Back: No spinal tenderness. No costovertebral tenderness. Full range of motion. Skin: Warm, dry with normal turgor. Normal color with no rashes, no lesions, and no evidence of cellulitis. MS/ Extremity: Pulses equal, no cyanosis. Neurovascular intact. Full, normal range of motion. 16:47 Neuro: Orientation: is normal, Motor: is normal, Sensation: is normal, no obvious gross deficits. Vital Signs: 16:09 BP 148 / 104; Pulse 99; Resp 18; Temp 98.2; Pulse Ox 94% on R/A; Weight 76.2 kg (R); aj1 Height 5 ft. 11 in. (180.34 cm) (R); Pain 6/10; 17:18 BP 156 / 105; Pulse 102; Resp 22; Pulse Ox 97% on R/A; aj1 18:05 BP 133 / 108; Pulse 106; Resp 20; Pulse Ox 96% on R/A; aj1 16:09 Body Mass Index 23.43 (76.20 kg, 180.34 cm) aj1 MDM: 16:11 Patient medically screened. pm1 16:37 Data reviewed: vital signs. pm1 18:06 Data interpreted: Pulse oximetry: on room air is 96 %. Interpretation: normal. pm1 18:07 Counseling: I had a detailed discussion with the patient and/or guardian regarding: the pm1 historical points, exam findings, and any diagnostic results supporting the discharge/admit diagnosis, the need for outpatient follow up, to return to the emergency department if symptoms worsen or persist or if there are any questions or concerns that arise at home. Administered Medications: 17:10 Drug: LaSIX 40 mg Route: PO; mg2 18:33 Follow up: Response: No adverse reaction aj 17:10 Drug: predniSONE 60 mg Route: PO; mg2 18:33 Follow up: Response: No adverse reaction aj Disposition: 08/20 07:27 Co-signature as Attending Physician, Puma Chi MD I agree with the assessment and kdr plan of care. Disposition: 08/19/18 18:10 Discharged to Home. Impression: Chronic obstructive pulmonary disease, unspecified, Congestive heart failure, Patient's other noncompliance with medication regimen. - Condition is Stable. - Discharge Instructions: Chronic Obstructive Pulmonary Disease, Heart Failure, How to Use an Inhaler. - Prescriptions for Lasix 40 mg Oral Tablet - take 1 tablet by ORAL route once daily for 30 days; 30 tablet. Prednisone 20 mg Oral Tablet - take 3 tablet by ORAL route once daily for 5 days; 15 tablet. Albuterol Sulfate 90 mcg/actuation - inhale 1-2 puff by INHALATION route every 4-6 hours; 1 Inhaler. - Medication Reconciliation Form, Thank You Letter, Antibiotic Education, Prescription Opioid Use form. - Follow up: Emergency Department; When: As needed; Reason: Worsening of condition. Follow up: Private Physician; When: 2 - 3 days; Reason: Recheck today's complaints, Continuance of care, Re-evaluation by your physician. - Problem is new. - Symptoms have improved. Signatures: Daisy Quiñones RN RN aj1 Puma Chi MD MD kdr Rj Arnold NP EAP COUNSELOR pm1 Sidney Kerr RN RN mg2 Corrections: (The following items were deleted from the chart) 08/19 18:11 18:10 08/19/2018 18:10 Discharged to Home. Impression: Chronic obstructive pulmonary pm1 disease, unspecified; Congestive heart failure. Condition is Stable. Forms are Medication Reconciliation Form, Thank You Letter, Antibiotic Education, Prescription Opioid Use. Follow up: Emergency Department; When: As needed; Reason: Worsening of condition. Follow up: Private Physician; When: 2 - 3 days; Reason: Recheck today's complaints, Continuance of care, Re-evaluation by your physician. Problem is new. Symptoms have improved. pm1 18:33 18:11 08/19/2018 18:10 Discharged to Home. Impression: Chronic obstructive pulmonary aj1 disease, unspecified; Congestive heart failure; Patient's other noncompliance with medication regimen. Condition is Stable. Discharge Instructions: Chronic Obstructive Pulmonary Disease, Heart Failure, How to Use an Inhaler. Forms are Medication Reconciliation Form, Thank You Letter, Antibiotic Education, Prescription Opioid Use. Follow up: Emergency Department; When: As needed; Reason: Worsening of condition. Follow up: Private Physician; When: 2 - 3 days; Reason: Recheck today's complaints, Continuance of care, Re-evaluation by your physician. Problem is new. Symptoms have improved. pm1
--- NOTE | 2018-08-19 18:12 | ER ---
Nurse's Notes [facility] Name: Mark Terrell Age: 67 yrs Sex: Male : 1950 Arrival Date: 08/19/2018 Time: 16:05 Bed 27 Private MD: Diagnosis: Chronic obstructive pulmonary disease, unspecified;Congestive heart failure;Patient's other noncompliance with medication regimen Presentation: 08/19 16:06 Presenting complaint: Patient states: He started to have some shortness of breath and aj1 palpitations about an hour ago. Patient also reports that his legs are more swollen than usual. Patient also reports chest pain. States that he was seen at this ER yesterday for the same complaint. Transition of care: patient was not received from another setting of care. Onset of symptoms was August 19, 2018. Risk Assessment: Do you want to hurt yourself or someone else? Patient reports no desire to harm self or others. Initial Sepsis Screen: Does the patient meet any 2 criteria? No. Patient's initial sepsis screen is negative. Does the patient have a suspected source of infection? No. Patient's initial sepsis screen is negative. Care prior to arrival: None. 16:06 Method Of Arrival: EMS: [facility] aj1 16:06 Acuity: ARIEL 3 aj1 Triage Assessment: 16:09 General: Appears in no apparent distress. uncomfortable, Behavior is calm, cooperative, aj1 appropriate for age. Pain: Complains of pain in chest. Respiratory: Reports shortness of breath at rest Onset: The symptoms/episode began/occurred suddenly, the patient has mild shortness of breath. Historical: - Allergies: 16:09 Benadryl; aj1 - Home Meds: 16:09 NON-COMPLIANT [Active]; aj1 - PMHx: 16:09 CHF; COPD; Hypertension; Prostate Cancer; aj1 - Immunization history:: Flu vaccine is not up to date. - Social history:: Smoking status: Patient uses tobacco products, 5 cigarettes per day. - Ebola Screening: : Patient denies travel to an Ebola-affected area in the 21 days before illness onset. Screenin:15 Abuse screen: Denies threats or abuse. Denies injuries from another. Nutritional aj1 screening: No deficits noted. Tuberculosis screening: No symptoms or risk factors identified. 18:29 Fall Risk None identified. aj1 Assessment: 16:15 General: Appears in no apparent distress. uncomfortable, Behavior is calm, cooperative, aj1 appropriate for age. Pain: Complains of pain in chest Pain does not radiate. Quality of pain is described as sharp, Pain began 1 hour ago. Neuro: Level of Consciousness is awake, alert, obeys commands, Oriented to person, place, time, situation. Cardiovascular: Reports chest pain, palpitations, shortness of breath, Heart tones S1 S2 present Patient's skin is warm and dry. Edema to bilateral lower legs Rhythm is sinus rhythm. Respiratory: Reports shortness of breath Airway is patent Respiratory effort is even, unlabored, Respiratory pattern is regular, symmetrical, Breath sounds with wheezes bilaterally. GI: No signs and/or symptoms were reported involving the gastrointestinal system. : No signs and/or symptoms were reported regarding the genitourinary system. EENT: No signs and/or symptoms were reported regarding the EENT system. Derm: No signs and/or symptoms reported regarding the dermatologic system. Skin is pink, warm \T\ dry. normal. Musculoskeletal: No signs and/or symptoms reported regarding the musculoskeletal system. Circulation, motion, and sensation intact. 17:17 Reassessment: Patient appears in no apparent distress at this time. No changes from aj1 previously documented assessment. Patient and/or family updated on plan of care and expected duration. Pain level reassessed. Patient is alert, oriented x 3, equal unlabored respirations, skin warm/dry/pink. 18:05 Reassessment: Patient appears in no apparent distress at this time. No changes from aj1 previously documented assessment. Patient and/or family updated on plan of care and expected duration. Pain level reassessed. Patient is alert, oriented x 3, equal unlabored respirations, skin warm/dry/pink. Patient provided a turkey sandwich, per patient request. 18:15 Reassessment: Patient is requesting a taxi voucher for a ride home. Notified house [facility] spring assembler supervisor, who will come to ER to speak to the patient. 18:29 Reassessment: Patient is requesting to be wheeled to the [facility], states he will wait to [facility] talk to the greenhouse transplanter there. Patient was transported to [facility] via wheelchair. securities supervisor notified that patient will be waiting in ER [facility]. Vital Signs: 16:09 BP 148 / 104; Pulse 99; Resp 18; Temp 98.2; Pulse Ox 94% on R/A; Weight 76.2 kg (R); aj1 Height 5 ft. 11 in. (180.34 cm) (R); Pain 6/10; 17:18 BP 156 / 105; Pulse 102; Resp 22; Pulse Ox 97% on R/A; aj1 18:05 BP 133 / 108; Pulse 106; Resp 20; Pulse Ox 96% on R/A; aj1 16:09 Body Mass Index 23.43 (76.20 kg, 180.34 cm) aj1 ED Course: 16:05 Patient arrived in ED. aj1 16:08 Triage completed. aj1 16:09 Rj Arnold NP is PHCP. pm1 16:09 Puma Chi MD is Attending Physician. pm1 16:09 Arm band placed on. aj1 16:15 Daisy Quiñones RN is Primary Nurse. aj1 16:15 Patient has correct armband on for positive identification. Bed in low position. Call aj1 light in reach. Side rails up X 1. 16:15 No provider procedures requiring assistance completed. aj1 18:28 Patient did not have IV access during this emergency room visit. aj1 Administered Medications: 17:10 Drug: LaSIX 40 mg Route: PO; mg2 18:33 Follow up: Response: No adverse reaction aj1 17:10 Drug: predniSONE 60 mg Route: PO; mg2 18:33 Follow up: Response: No adverse reaction aj Outcome: 18:10 Discharge ordered by MD. pm1 18:33 Discharged to home via wheelchair. aj1 18:33 Condition: stable 18:33 Discharge instructions given to patient, Instructed on discharge instructions, follow up and referral plans. medication usage, Demonstrated understanding of instructions, follow-up care, medications, Prescriptions given X 3. 18:33 Patient left the ED. aj1 Signatures: Daisy Quiñones, LASHAY RN aj1 Rj Arnold NP REGULATORY PROCESS MANAGER pm1 Sidney Kerr RN RN mg2
[2018-08-19 20:23] VITALS: TEMP 98.2
[2018-08-19 20:26] VITALS: BP 133/108; O2SAT 96
== END 2018-08-19 18:33 | disposition home or self-care (01) ==
LOC: ER 16:00
DX: J44.9 Chronic obstructive pulmonary disease, unspecified (principal); I11.0 Hypertensive heart disease with heart failure; I50.9 Heart failure, unspecified; Z91.14 Patient's other noncompliance with medication regimen; C61 Malignant neoplasm of prostate; Z72.0 Tobacco use; Z88.8 Allergy status to other drugs, medicaments and biological substances
CPT/HCPCS: 99284; J7512

== ENCOUNTER 2018-08-26 19:31 | Emergency (ER) | payer OTHER ==
--- OUTSIDE RECORDS SUMMARY | 2018-08-26 19:34 | XMS REPORT ---
:1950 [facility] [address] [place] [address] Care Team Providers Name Role Phone Unavailable [...] 1 View 2017-12-22 23:14:17 Patient: JOSTIN BURTON [facility] Date/Time12/22/2017 22:58 CDTReason for ExamCHF (Congestive [...]
[2018-08-26] MEDS ORDERED: METOPROLOL TARTRATE 5 MG/5 ML INJ IV ONE (20:19)
[2018-08-26] MEDS ORDERED: FUROSEMIDE 40 MG/4 ML VIAL ONE (20:19)
[2018-08-26 20:22] LABS: Absolute Lymphocytes (CBC) 2.6 K/uL (0.7-4.9); Basophils % 0.7 % (0-1.3); Eosinophils % 1.4 % (0-4.4); Hematocrit 35.7 % (39.6-49.0); Lymphocytes % 14.7 % (15.3-44.8); Monocytes % 7.5 % (3.3-12.3); RBC Red Blood Cell Count 6.25 M/uL (4.33-5.43)
[2018-08-26 20:38] LABS: Potassium 4.1 mmol/L (3.5-5.1)
--- NOTE | 2018-08-26 21:24 | EDPHYS ---
Physician Documentation [facility] Name: Mark Terrell Age: 67 yrs Sex: Male : 1950 Arrival Date: 08/26/2018 Time: 19:33 Bed 7 Private MD: ED Physician Ryan Vasquez HPI: 08/26 21:00 This 67 yrs old Male presents to ER via EMS with complaints of Breathing jr8 Difficulty. 21:00 The patient has shortness of breath at rest. Onset: The symptoms/episode began/occurred jr8 acutely, today. Duration: The symptoms are continuous. The patient's shortness of breath is aggravated by exertion. Associated signs and symptoms: The patient has no apparent associated signs or symptoms. Severity of symptoms: At their worst the symptoms were moderate in the emergency department the symptoms have improved moderately. The patient has experienced similar episodes in the past, multiple times, chronically. The patient has been recently seen by a physician:. Patient is a non compliant gentleman who came in with shortness of breath. Has been seen several times this month for same symptoms but refuses to take his medications once discharged. Denies any other symptoms other then shortness of breath . Historical: - Allergies: 19:42 Benadryl; bb - Home Meds: 19:42 NON-COMPLIANT [Active]; bb - PMHx: 19:42 CHF; COPD; Hypertension; Prostate Cancer; bb - Immunization history:: Adult Immunizations up to date. - Social history:: Smoking status: Patient uses tobacco products, smokes one-half pack cigarettes per day. - Ebola Screening: : No symptoms or risks identified at this time. ROS: 21:00 Eyes: Negative for injury, pain, redness, and discharge, ENT: Negative for injury, jr8 pain, and discharge, Neck: Negative for injury, pain, and swelling, Cardiovascular: Negative for chest pain, palpitations, and edema, Abdomen/GI: Negative for abdominal pain, nausea, vomiting, diarrhea, and constipation, Back: Negative for injury and pain, MS/Extremity: Negative for injury and deformity, Skin: Negative for injury, rash, and discoloration, Neuro: Negative for headache, weakness, numbness, tingling, and seizure. 21:00 Respiratory: Positive for dyspnea on exertion, shortness of breath. Exam: 21:00 Eyes: Pupils equal round and reactive to light, extra-ocular motions intact. Lids and jr8 lashes normal. Conjunctiva and sclera are non-icteric and not injected. Cornea within normal limits. Periorbital areas with no swelling, redness, or edema. ENT: Nares patent. No nasal discharge, no septal abnormalities noted. Tympanic membranes are normal and external auditory canals are clear. Oropharynx with no redness, swelling, or masses, exudates, or evidence of obstruction, uvula midline. Mucous membranes moist. Neck: Trachea midline, no thyromegaly or masses palpated, and no cervical lymphadenopathy. Supple, full range of motion without nuchal rigidity, or vertebral point tenderness. No Meningismus. Abdomen/GI: Soft, non-tender, with normal bowel sounds. No distension or tympany. No guarding or rebound. No evidence of tenderness throughout. Back: No spinal tenderness. No costovertebral tenderness. Full range of motion. Skin: Warm, dry with normal turgor. Normal color with no rashes, no lesions, and no evidence of cellulitis. MS/ Extremity: Pulses equal, no cyanosis. Neurovascular intact. Full, normal range of motion. Neuro: Awake and alert, GCS 15, oriented to person, place, time, and situation. Cranial nerves II-XII grossly intact. Motor strength 5/5 in all extremities. Sensory grossly intact. Cerebellar exam normal. Normal gait. 21:20 Cardiovascular: Rate: tachycardic, Rhythm: regular, Pulses: Pulses are 2+ in right jr8 radial artery and left radial artery. Heart sounds: normal, normal S1and S2, no S3 or S4, no murmur, no rub, no gallop, Edema: 1+ edema to level of left midcalf, left ankle, right midcalf and right ankle, JVD: is not appreciated. 21:20 Respiratory: the patient does not display signs of respiratory distress, Respirations: tachypnea, that is mild, Breath sounds: are clear throughout, no bronchial sounds, no decreased breath sounds, no rales, rhonchi, no stridor, no wheezing. Vital Signs: 19:42 BP 146 / 108; Pulse 107; Resp 26 S; Temp 97.9(O); Pulse Ox 100% on R/A; Weight 74.84 kg bb (R); Height 5 ft. 11 in. (180.34 cm) (R); Pain 6/10; 21:36 BP 145 / 110; Pulse 87; Resp 22; Pulse Ox 98% on R/A; bb 19:42 Body Mass Index 23.01 (74.84 kg, 180.34 cm) bb MDM: 19:34 Patient medically screened. snw 21:20 Data reviewed: vital signs, nurses notes, lab test result(s), EKG, radiologic studies, [facility] plain films. Data interpreted: Pulse oximetry: on room air is 100 %. Interpretation: normal. Counseling: I had a detailed discussion with the patient and/or guardian regarding: the historical points, exam findings, and any diagnostic results supporting the discharge/admit diagnosis, lab results, radiology results, the need for outpatient follow up, a family practitioner, to return to the emergency department if symptoms worsen or persist or if there are any questions or concerns that arise at home. 21:23 Response to treatment: the patient's symptoms have resolved after treatment. [facility] 08/26 19:53 Order name: CBC with Diff [facility] 08/26 19:53 Order name: Basic Metabolic Panel; Complete Time: 21:20 [facility] 08/26 19:53 Order name: IV; Complete Time: 20:15 [facility] 08/26 20:31 Order name: XRAY Chest (1 view) [facility] 08/26 20:00 Order name: EKG - Nurse/Tech; Complete Time: 20:15 [facility] Administered Medications: 20:36 Drug: Lasix 40 mg Route: IVP; Site: left antecubital; bb 21:30 Follow up: Response: No adverse reaction bb 20:37 Drug: Metoprolol 5 mg Route: IVP; Site: left antecubital; bb 21:30 Follow up: Response: No adverse reaction bb Disposition: 08/27 00:17 Co-signature as Attending Physician, Ryan Vasquez MD. rn Disposition: 08/26/18 21:23 Discharged to Home. Impression: Chronic obstructive pulmonary disease with (acute) exacerbation, Acute combined systolic (congestive) and diastolic (congestive) heart failure. - Condition is Stable. - Discharge Instructions: Chronic Obstructive Pulmonary Disease, Heart Failure. - Medication Reconciliation Form, Thank You Letter, Antibiotic Education, Prescription Opioid Use form. - Follow up: Private Physician; When: 2 - 3 days; Reason: Recheck today's complaints, Continuance of care, Re-evaluation by your physician. - Problem is new. - Symptoms have improved. Signatures: Dispatcher [employer] EDMS Luzmaria, Deanne, POLLY-C CLINICAL SERVICES DIRECTOR-Csnw Myriam Roldan RN RN bb Nieto, Roman, MD MD rn Roszak, Josh, PA PA jr8 Corrections: (The following items were deleted from the chart) 08/26 21:21 21:00 Eyes: Pupils equal round and reactive to light, extra-ocular motions intact. Lids jr8 and lashes normal. Conjunctiva and sclera are non-icteric and not injected. Cornea within normal limits. Periorbital areas with no swelling, redness, or edema. ENT: Nares patent. No nasal discharge, no septal abnormalities noted. Tympanic membranes are normal and external auditory canals are clear. Oropharynx with no redness, swelling, or masses, exudates, or evidence of obstruction, uvula midline. Mucous membranes moist. Neck: Trachea midline, no thyromegaly or masses palpated, and no cervical lymphadenopathy. Supple, full range of motion without nuchal rigidity, or vertebral point tenderness. No Meningismus. Abdomen/GI: Soft, non-tender, with normal bowel sounds. No distension or tympany. No guarding or rebound. No evidence of tenderness throughout. Back: No spinal tenderness. No costovertebral tenderness. Full range of motion. Skin: Warm, dry with normal turgor. Normal color with no rashes, no lesions, and no evidence of cellulitis. MS/ Extremity: Pulses equal, no cyanosis. Neurovascular intact. Full, normal range of motion. Neuro: Awake and alert, GCS 15, oriented to person, place, time, and situation. Cranial nerves II-XII grossly intact. Motor strength 5/5 in all extremities. Sensory grossly intact. Cerebellar exam normal. Normal gait. jr8 22:04 21:23 08/26/2018 21:23 Discharged to Home. Impression: Chronic obstructive pulmonary bb disease with (acute) exacerbation; Acute combined systolic (congestive) and diastolic (congestive) heart failure. Condition is Stable. Forms are Medication Reconciliation Form, Thank You Letter, Antibiotic Education, Prescription Opioid Use. Follow up: Private Physician; When: 2 - 3 days; Reason: Recheck today's complaints, Continuance of care, Re-evaluation by your physician. Problem is new. Symptoms have improved. jr8
--- NOTE | 2018-08-26 21:24 | ER ---
Nurse's Notes [facility] Name: Mark Terrell Age: 67 yrs Sex: Male : 1950 Arrival Date: 08/26/2018 Time: 19:33 Bed 7 Private MD: Diagnosis: Chronic obstructive pulmonary disease with (acute) exacerbation;Acute combined systolic (congestive) and diastolic (congestive) heart failure Presentation: 08/26 19:40 Presenting complaint: EMS states: they were toned out for report of pt having SOB. bb Transition of care: patient was not received from another setting of care. Onset of symptoms was August 26, 2018. Risk Assessment: Do you want to hurt yourself or someone else? Patient reports no desire to harm self or others. Initial Sepsis Screen: Does the patient meet any 2 criteria? No. Patient's initial sepsis screen is negative. Does the patient have a suspected source of infection? No. Patient's initial sepsis screen is negative. Care prior to arrival: Medication(s) given: Albuterol Neb x 1, Atrovent Neb x 1. 19:40 Method Of Arrival: EMS: [facility] bb 19:40 Acuity: ARIEL 3 bb Triage Assessment: 19:42 General: Appears uncomfortable, unkempt, Behavior is calm, cooperative. Pain: Complains bb of pain in chest Pain currently is 6 out of 10 on a pain scale. Pain began 2 hours ago. Neuro: Level of Consciousness is awake, alert, obeys commands, Oriented to person, place, time, situation. Cardiovascular: Heart tones S1 S2 present Capillary refill < 3 seconds Patient's skin is warm and dry. Pulses are all present. Edema is 3+ to left ankle, left foot, right ankle and right foot. Respiratory: Reports shortness of breath Airway is patent Respiratory effort is labored, Respiratory pattern is tachypnea Breath sounds are clear in right upper lobe, left upper lobe, left posterior upper lobe and right posterior upper lobe Breath sounds are diminished in left posterior lower lobe Onset: The symptoms/episode began/occurred today, the patient has mild shortness of breath. GI: Abdomen is non-distended, Abd is soft and non tender X 4 quads. Derm: Skin is dry, Skin temperature is warm. Musculoskeletal: Circulation, motion, and sensation intact. Historical: - Allergies: 19:42 Benadryl; bb - Home Meds: 19:42 NON-COMPLIANT [Active]; bb - PMHx: 19:42 CHF; COPD; Hypertension; Prostate Cancer; bb - Immunization history:: Adult Immunizations up to date. - Social history:: Smoking status: Patient uses tobacco products, smokes one-half pack cigarettes per day. - Ebola Screening: : No symptoms or risks identified at this time. Screenin:48 Abuse screen: Denies threats or abuse. Nutritional screening: No deficits noted. bb Tuberculosis screening: No symptoms or risk factors identified. Fall Risk Secondary diagnosis (15 points) impaired mobility, IV access (20 points). Ambulatory Aid- None/Bed Rest/Nurse Assist (0 pts). Mental Status- Overestimates/Forgets Limitations (15 pts.). Total Chiang Fall Scale indicates High Risk Score (45 or more points). Fall prevention measures have been instituted. Side Rails Up X 2 Placed Close to Nursing Station As available patient and family educated on Fall Prevention Program and Strategies. Assessment: 19:48 Reassessment: No changes from previously documented assessment. see triage assessment. bb 21:00 Reassessment: pt is A\T\O x 4, resp labored, tachypneic, clear to auscultation, bb diminished left lower lung, pt awaiting results, IV site intact with no erythema or edema noted. 21:00 Cardiovascular: Rhythm is sinus tachycardia. bb 22:02 Reassessment: Patient and/or family updated on plan of care and expected duration. Pain bb level reassessed. Pt is A\T\O x 4, resp tachypneic, verbalized understanding of and agrees to plan of care discharge instructions given. Pt ambulated with steady gait to exit. Vital Signs: 19:42 BP 146 / 108; Pulse 107; Resp 26 S; Temp 97.9(O); Pulse Ox 100% on R/A; Weight 74.84 kg bb (R); Height 5 ft. 11 in. (180.34 cm) (R); Pain 6/10; 21:36 BP 145 / 110; Pulse 87; Resp 22; Pulse Ox 98% on R/A; bb 19:42 Body Mass Index 23.01 (74.84 kg, 180.34 cm) bb ED Course: 19:33 Patient arrived in ED. am2 19:34 Deanne Dutta FNP-C is PHCP. snw 19:34 Ryan Vasquez MD is Attending Physician. snw 19:40 Myriam Roldan, RN is Primary Nurse. bb 19:41 Triage completed. bb 19:42 Arm band placed on Patient placed in an exam room, on a stretcher, on front desk monitor, bb on pulse oximetry. EKG completed in triage. Results shown to MD. 19:48 Patient has correct armband on for positive identification. Placed in gown. Bed in low bb position. Call light in reach. Side rails up X2. satellite project site monitor on. Pulse ox on. NIBP on. 19:48 No provider procedures requiring assistance completed. bb 19:49 PHCP role handed off by Deanne Dutta FNP-C snw 19:49 Petar Camargo PA is PHCP. snw 21:11 XRAY Chest (1 view) In Process Unspecified. EDMS 21:39 Diet tray given. PO fluids given. jd3 22:04 IV discontinued, intact, bleeding controlled, No redness/swelling at site. Pressure bb dressing applied. Administered Medications: 20:36 Drug: Lasix 40 mg Route: IVP; Site: left antecubital; bb 21:30 Follow up: Response: No adverse reaction bb 20:37 Drug: Metoprolol 5 mg Route: IVP; Site: left antecubital; bb 21:30 Follow up: Response: No adverse reaction bb Outcome: 21:23 Discharge ordered by MD. horta 22:04 Discharged to home ambulatory. bb 22:04 Condition: stable 22:04 Discharge instructions given to patient, Instructed on discharge instructions, follow up and referral plans. Demonstrated understanding of instructions, follow-up care. 22:04 Patient left the ED. bb Signatures: Dispatcher [employer] EDMS Deanne Dutta FNP-C BLOCK OUT MACHINE OPERATOR-Csnw Myriam Roldan, RN RN bb Petar Camargo PA PA jr8 Liane Armas Jonathon, RN RN jd3
[2018-08-26 22:31] LABS: Anisocytosis 2+; Blood Morphology Comment NOTED (NOT SEEN); Platelet Estimate ADEQ
[2018-08-26 22:32] LABS: Hypochromasia 2+; Ovalocytes 1+; Poikilocytosis 1+; Polychromasia 2+
[2018-08-27 00:29] VITALS: BP 145/110; TEMP 97.9; O2SAT 98
--- NOTE | 2018-08-27 08:38 | RAD REPORT ---
EXAM DESCRIPTION: RAD - Chest Single View - 08/26/2018 9:11 pm CLINICAL HISTORY: Shortness of breath COMPARISON: August 18 TECHNIQUE: AP portable chest image was obtained 2100 hours . FINDINGS: No focal mass or consolidation. There is a mild prominence of the interstitial markings ac centuated in part due to shallow inspiration. Cardiomegaly is present. No measurable pleural effusion and no pneumothorax. No acute bony abnormality seen. No acute aortic findings suspected. IMPRESSION: Cardiomegaly with mild prominence of the interstitial markings. Findings suggest a mild failure or volume overload. No focal consolidation to suspect infiltrate.
== END 2018-08-26 22:04 | disposition home or self-care (01) ==
LOC: ER 19:31
DX: J44.1 Chronic obstructive pulmonary disease with (acute) exacerbation (principal); I11.0 Hypertensive heart disease with heart failure; I50.41 Acute combined systolic (congestive) and diastolic (congestive) heart failure; C61 Malignant neoplasm of prostate; F17.210 Nicotine dependence, cigarettes, uncomplicated; Z88.8 Allergy status to other drugs, medicaments and biological substances
CPT/HCPCS: 85025; 80048; 36415; 71045; 96375; 96374; 99284; J1940

== ENCOUNTER 2018-08-31 11:10 | Emergency (ER) | payer OTHER ==
[2011-11-09 14:47] VITALS: BP 158/83
--- OUTSIDE RECORDS SUMMARY | 2018-08-31 11:12 | XMS REPORT ---
:1950 [facility] [address] [place] [address] Care Team Providers Name Role Phone Unavailable [...] 1 View 2017-12-22 23:14:17 Patient: JOSTIN BURTON [facility] Date/Time12/22/2017 22:58 CDTReason for ExamCHF (Congestive [...]
--- NOTE | 2018-08-31 12:11 | ER ---
Nurse's Notes [facility] Name: Mark Terrell Age: 67 yrs Sex: Male : 1950 Arrival Date: 08/31/2018 Time: 11:12 Bed 25 Private MD: Diagnosis: Encounter for general adult medical examination;Chronic obstructive pulmonary disease, unspecified Presentation: 08/31 11:16 Presenting complaint: Patient states: Shortness of breath and chest pain for the past 4 aj1 to 5 hours. Patient is 95% on room air. States that he was not able to fill his Rx for diruetics after his last ER visit. Edema noted to bilateral lower legs, patient states that his legs have been weeping now, and the swelling is worse than last week. Albuterol neb treatment given en route. Transition of care: patient was not received from another setting of care. Onset of symptoms was August 31, 2018 at 06:00. Risk Assessment: Do you want to hurt yourself or someone else? Patient reports no desire to harm self or others. Initial Sepsis Screen: Does the patient meet any 2 criteria? No. Patient's initial sepsis screen is negative. Does the patient have a suspected source of infection? No. Patient's initial sepsis screen is negative. Care prior to arrival: None. 11:16 Method Of Arrival: EMS: [facility] aj1 11:16 Acuity: ARIEL 3 aj1 Triage Assessment: 11:19 General: Appears in no apparent distress. comfortable, Behavior is calm, cooperative, aj1 appropriate for age. Pain: Complains of pain in mid-sternal area. Respiratory: Reports shortness of breath at rest Onset: The symptoms/episode began/occurred today, the patient has mild shortness of breath. Historical: - Allergies: 11:19 Benadryl; aj1 - Home Meds: 11:19 NON-COMPLIANT [Active]; aj1 - PMHx: 11:19 CHF; COPD; Hypertension; Prostate Cancer; aj1 - Immunization history:: Flu vaccine is up to date. - Social history:: Smoking status: Patient uses tobacco products, smokes one-half pack cigarettes per day. - Ebola Screening: : Patient denies travel to an Ebola-affected area in the 21 days before illness onset. Screenin:20 Abuse screen: Denies threats or abuse. Denies injuries from another. Nutritional aj1 screening: No deficits noted. Tuberculosis screening: No symptoms or risk factors identified. 12:44 Fall Risk None identified. aj1 Assessment: 11:20 General: Appears in no apparent distress. comfortable, Behavior is calm, cooperative, aj1 appropriate for age. Pain: Complains of pain in mid-sternal area Pain does not radiate. Pain currently is 6 out of 10 on a pain scale. Quality of pain is described as "tapping" Pain began 4-5 hours ago. Neuro: Level of Consciousness is awake, alert, obeys commands, Oriented to person, place, time, situation, Speech is normal. Cardiovascular: Reports chest pain, palpitations, shortness of breath, Heart tones S1 S2 present Patient's skin is warm and dry. Edema to bilateral lower legs Rhythm is sinus rhythm. Respiratory: Reports shortness of breath at rest Airway is patent Respiratory effort is even, unlabored, Respiratory pattern is regular, symmetrical, Breath sounds are clear bilaterally. GI: No signs and/or symptoms were reported involving the gastrointestinal system. : No signs and/or symptoms were reported regarding the genitourinary system. EENT: No signs and/or symptoms were reported regarding the EENT system. Derm: No signs and/or symptoms reported regarding the dermatologic system. Skin is pink, warm \\T\\ dry. normal. Musculoskeletal: No signs and/or symptoms reported regarding the musculoskeletal system. Circulation, motion, and sensation intact. 12:42 Reassessment: Patient appears in no apparent distress at this time. No changes from aj1 previously documented assessment. Patient and/or family updated on plan of care and expected duration. Pain level reassessed. Patient is alert, oriented x 3, equal unlabored respirations, skin warm/dry/pink. Vital Signs: 11:19 BP 145 / 91; Pulse 98; Resp 17; Temp 98.0; Pulse Ox 95% on R/A; Weight 77.11 kg (R); aj1 Height 5 ft. 11 in. (180.34 cm) (R); Pain 6/10; 12:43 BP 142 / 87; Pulse 92; Resp 20; Pulse Ox 96% on R/A; aj1 11:19 Body Mass Index 23.71 (77.11 kg, 180.34 cm) aj1 ED Course: 11:12 Patient arrived in ED. ss 11:16 Ishmael, Daisy, RN is Primary Nurse. aj1 11:18 Triage completed. aj1 11:19 Arm band placed on. aj1 11:20 Patient has correct armband on for positive identification. Bed in low position. Call jp3 light in reach. Side rails up X 1. Side rails up X2. Warm blanket given. Pillow given. Verbal reassurance given. bus monitor on. Pulse ox on. NIBP on. 11:20 No provider procedures requiring assistance completed. aj1 11:20 Maintain EMS IV. Dressing intact. Site clean \\T\\ dry. Gauge \\T\\ site: 20g right AC. aj 1 11:21 EKG done, by ekg technician. reviewed by Eric Ochoa MD. at1 11:29 Eric Ochoa MD is Attending Physician. ps1 11:40 Diet: Patient given ice chips. Patient given water. Tolerated well. jp3 12:12 CXR XRAY In Process Unspecified. EDMS 12:21 X-ray completed. Portable x-ray completed in exam room. Patient tolerated procedure jb2 well. 12:43 IV discontinued, intact, bleeding controlled, No redness/swelling at site. Pressure aj1 dressing applied. Administered Medications: No medications were administered Outcome: 12:11 Discharge ordered by . ps1 12:43 Discharged to home via wheelchair. aj1 12:43 Condition: good 12:43 Discharge instructions given to patient, Instructed on discharge instructions, follow up and referral plans. Demonstrated understanding of instructions, follow-up care. 12:44 Patient left the ED. aj1 Signatures: Dispatcher [employer] EDMD Daisy Quiñones, RN RN aj1 Jagdish Castanon jb2 Tayler Flynn, LASHAY METZ Liane Bradley, outpatient case manager EKG Tat1 Eric Ochoa MD MD ps1 Tolu Yoder jp3
--- NOTE | 2018-08-31 12:12 | EDPHYS ---
Physician Documentation [facility] Name: Mark Terrell Age: 67 yrs Sex: Male : 1950 Arrival Date: 08/31/2018 Time: 11:12 Bed 25 Private MD: ED Physician Eric Ochoa HPI: 08/31 11:38 This 67 yrs old Male presents to ER via EMS with complaints of Shortness Of ps1 Breath. 11:38 patient is homeless and hx of COPD. Was in front of [employer] restaurant and EMS was ps1 called on him. He states that he is in [place] with typical COPD symptoms that are long standing and was essentially brought by EMS in which he did not call, however he did not refuse transport. He is stating that he is thirsty because it is hot outside. . Historical: - Allergies: 11:19 Benadryl; aj1 - Home Meds: 11:19 NON-COMPLIANT [Active]; aj1 - PMHx: 11:19 CHF; COPD; Hypertension; Prostate Cancer; aj1 - Immunization history:: Flu vaccine is up to date. - Social history:: Smoking status: Patient uses tobacco products, smokes one-half pack cigarettes per day. - Ebola Screening: : Patient denies travel to an Ebola-affected area in the 21 days before illness onset. ROS: 11:38 Constitutional: Negative for fever, chills, and weight loss, Eyes: Negative for injury, ps1 pain, redness, and discharge, Cardiovascular: Negative for chest pain, palpitations, and edema, Abdomen/GI: Negative for abdominal pain, nausea, vomiting, diarrhea, and constipation, Back: Negative for injury and pain, MS/Extremity: Negative for injury and deformity, Skin: Negative for injury, rash, and discoloration, Neuro: Negative for headache, weakness, numbness, tingling, and seizure. 11:38 Respiratory: Positive for wheezing, expiratory, Negative for sputum production, acute changes. Exam: 11:41 Constitutional: This is a well developed, well nourished patient who is awake, alert, ps1 and in no acute distress. Head/Face: Normocephalic, atraumatic. Eyes: Pupils equal round and reactive to light, extra-ocular motions intact. Lids and lashes normal. Conjunctiva and sclera are non-icteric and not injected. Chest/axilla: Normal chest wall appearance and motion. Nontender with no deformity. No lesions are appreciated. Cardiovascular: Regular rate and rhythm. No gallops, murmurs, or rubs. Normal PMI, no JVD. No pulse deficits. Respiratory: Lungs have equal breath sounds bilaterally, clear to auscultation and percussion. No rales, rhonchi or wheezes noted. No increased work of breathing, no retractions or nasal flaring. Abdomen/GI: Soft, non-tender, with normal bowel sounds. No distension or tympany. No guarding or rebound. No evidence of tenderness throughout. Skin: Warm, dry with normal turgor. Normal color with no rashes, no lesions, and no evidence of cellulitis. MS/ Extremity: Pulses equal, no cyanosis. Neurovascular intact. Full, normal range of motion. Neuro: Awake and alert, GCS 15, oriented to person, place, time, and situation. Cranial nerves II-XII grossly intact. Sensory grossly intact. Psych: Awake, alert, with orientation to person, place and time. Behavior, mood, and affect are within normal limits. Vital Signs: 11:19 BP 145 / 91; Pulse 98; Resp 17; Temp 98.0; Pulse Ox 95% on R/A; Weight 77.11 kg (R); aj1 Height 5 ft. 11 in. (180.34 cm) (R); Pain 6/10; 12:43 BP 142 / 87; Pulse 92; Resp 20; Pulse Ox 96% on R/A; aj1 11:19 Body Mass Index 23.71 (77.11 kg, 180.34 cm) [facility] MDM: 11:43 Patient medically screened. ps1 12:12 Data reviewed: vital signs, nurses notes. Counseling: I had a detailed discussion with ps1 the patient and/or guardian regarding: the historical points, exam findings, and any diagnostic results supporting the discharge/admit diagnosis, radiology results, the need for outpatient follow up, to return to the emergency department if symptoms worsen or persist or if there are any questions or concerns that arise at home. 08/31 11:43 Order name: CXR XRAY; Complete Time: 12:19 ps1 EC:21 Rate is 96 beats/min. Rhythm is regular. QRS Virgil is Normal. RI interval is normal. QRS ps1 interval is normal. QT interval is prolonged at 512 msec. No Q waves. T waves are Flattened in leads III, aVF. No ST changes noted. Clinical impression: NSR w/ Non-specific ST/T Changes. Interpreted by me. Administered Medications: No medications were administered Disposition: 08/31/18 12:11 Discharged to Home. Impression: Encounter for general adult medical examination, Chronic obstructive pulmonary disease, unspecified. - Condition is Stable. - Discharge Instructions: Chronic Obstructive Pulmonary Disease Exacerbation. - Medication Reconciliation Form, Thank You Letter, Antibiotic Education, Prescription Opioid Use form. - Follow up: Private Physician; When: As needed; Reason: Further diagnostic work-up, Recheck today's complaints, Continuance of care, Re-evaluation by your physician. Follow up: Emergency Department; When: As needed; Reason: Worsening of condition. - Problem is chronic. - Symptoms are unchanged. Signatures: Dispatcher [employer] EDDaisy Eisenberg RN RN aj1 Eric Ochoa MD MD ps1 Corrections: (The following items were deleted from the chart) 12:44 12:11 08/31/2018 12:11 Discharged to Home. Impression: Encounter for general adult aj1 medical examination; Chronic obstructive pulmonary disease, unspecified. Condition is Stable. Forms are Medication Reconciliation Form, Thank You Letter, Antibiotic Education, Prescription Opioid Use. Follow up: Private Physician; When: As needed; Reason: Further diagnostic work-up, Recheck today's complaints, Continuance of care, Re-evaluation by your physician. Follow up: Emergency Department; When: As needed; Reason: Worsening of condition. Problem is chronic. Symptoms are unchanged. ps1
--- NOTE | 2018-08-31 12:18 | RAD REPORT ---
EXAM DESCRIPTION: RAD - Chest Single View - 08/31/2018 12:11 pm CLINICAL HISTORY: COPD, chest pain, shortness of breath COMPARISON: Portable August 26 TECHNIQUE: AP portable chest image was obtained 1207 hours . FINDINGS: No new mass or consolidation. Interstitial and alveolar opacities are present. Pattern is not substantially different from comparison. Cardiomegaly remains. Vascular engorgement remains. No m easurable pleural effusion and no pneumothorax. No acute bony abnormality seen. No acute aortic findi ngs suspected. IMPRESSION: CHF/volume overload pattern similar to August 26 imaging.
--- NOTE | 2018-08-31 19:43 | EKG ---
Test Date: 2018-08-31 Test Time: 11:21:33 Lead Nurse: AYSHA MEASUREMENT RESULTS: Intervals: Rate: 96 MA: 138 QRSD: 112 QT: 406 QTc: 512 [place]: P: 63 MA: 138 QRS: 85 T: 32 INTERPRETIVE STATEMENTS: Normal sinus rhythm Nonspecific ST and T wave abnormality Prolonged QT Abnormal ECG Compared to ECG 08/18/2018 15:53:25 Prolonged QT interval now present Sinus tachycardia no longer present Ventricular premature complex(es) no longer present Right-axis deviation no longer present ST (T wave) deviation still present Electronically Signed On 08-31-18 19:40:29 CDT by Cyrus Porter
== END 2018-08-31 12:44 | disposition home or self-care (01) ==
LOC: ER 11:10
DX: J44.9 Chronic obstructive pulmonary disease, unspecified (principal); Z00.00 Encounter for general adult medical examination without abnormal findings; F17.210 Nicotine dependence, cigarettes, uncomplicated; I50.9 Heart failure, unspecified; I10 Essential (primary) hypertension; Z88.8 Allergy status to other drugs, medicaments and biological substances; Z85.46 Personal history of malignant neoplasm of prostate
CPT/HCPCS: 71045; 93005; 99284

== ENCOUNTER 2018-09-02 12:52 | Emergency (ER) | payer OTHER ==
--- OUTSIDE RECORDS SUMMARY | 2018-09-02 12:54 | XMS REPORT ---
:1950 [facility] [address] [place] [address] Care Team Providers Name Role Phone Unavailable [...] 1 View 2017-12-22 23:14:17 Patient: JOSTIN BURTON [facility] Date/Time12/22/2017 22:58 CDTReason for ExamCHF (Congestive [...]
[2018-09-02] MEDS ORDERED: FUROSEMIDE 40 MG TABLET ONE (13:29)
[2018-09-02] MEDS ORDERED: LEVALBUTEROL 1.25 MG/3 ML NEB ONE ×2 (13:29→15:08)
--- NOTE | 2018-09-02 13:46 | RAD REPORT ---
EXAM DESCRIPTION: RAD - Chest Single View - 09/02/2018 1:16 pm CLINICAL HISTORY: Shortness of breath, difficulty breathing COMPARISON: August 31, 2018 TECHNIQUE: AP portable chest image was obtained 1309 hours . FINDINGS: No dense mass or consolidations seen. Interstitial markings are prominent appearing fracti onally improved from August 31. Cardiomegaly is present. Upper lobe vasculature is prominent. No measura ble pleural effusion and no pneumothorax. No acute bone findings seen. Old rib trauma noted on the le ft. No acute aortic findings suspected. IMPRESSION: Mild CHF/ volume overload pattern less prominent than seen August 31.
[2018-09-02] MEDS ORDERED: METOPROLOL TAR 50 MG TAB ONE (16:09)
--- NOTE | 2018-09-02 16:23 | ER ---
Nurse's Notes [facility] Name: Mark Terrell Age: 67 yrs Sex: Male : 1950 Arrival Date: 09/02/2018 Time: 12:55 Bed 24 Private MD: Diagnosis: Chronic combined systolic (congestive) and diastolic (congestive) heart failure Presentation: 09/02 13:02 Presenting complaint: EMS states: pt c/o shortness of breath and difficulty breathing. ca1 SPO2 at is at 97%. BP at 178/122, 176/126. Transition of care: patient was not received from another setting of care. Onset of symptoms was September 02, 2018. Risk Assessment: Do you want to hurt yourself or someone else? Patient reports no desire to harm self or others. Initial Sepsis Screen: Does the patient meet any 2 criteria? No. Patient's initial sepsis screen is negative. Does the patient have a suspected source of infection? No. Patient's initial sepsis screen is negative. Care prior to arrival: Medication(s) given: Albuterol Neb x 1, Atrovent Neb x 1. 13:02 Method Of Arrival: EMS: [facility] ca1 13:02 Acuity: ARIEL 3 ca1 Triage Assessment: 13:06 General: Appears in no apparent distress. uncomfortable, Behavior is calm, cooperative, ca1 appropriate for age. Pain: Denies pain. Respiratory: Reports shortness of breath at rest since an hour and half ago Onset: The symptoms/episode began/occurred gradually, the patient has mild shortness of breath. Historical: - Allergies: 13:06 Benadryl; ca1 - Home Meds: 13:06 NON-COMPLIANT [Active]; ca1 - PMHx: 13:06 CHF; COPD; Hypertension; Prostate Cancer; Aneurysm; ca1 - PSHx: 13:06 Prostatectomy; ca1 - Immunization history:: Flu vaccine is up to date. - Social history:: Smoking status: Patient uses tobacco products, 5 cigarettes a day. - Ebola Screening: : Patient negative for fever greater than or equal to 101.5 degrees Fahrenheit, and additional compatible Ebola Virus Disease symptoms Patient denies exposure to infectious person Patient denies travel to an Ebola-affected area in the 21 days before illness onset No symptoms or risks identified at this time. Screenin:08 Abuse screen: Denies threats or abuse. Denies injuries from another. Nutritional ca1 screening: No deficits noted. Tuberculosis screening: No symptoms or risk factors identified. Fall Risk None identified. Assessment: 13:08 General: Appears in no apparent distress. comfortable, Behavior is calm, cooperative, ca1 appropriate for age. Pain: Denies pain. Neuro: Level of Consciousness is awake, alert, obeys commands, Oriented to person, place, time, situation. Cardiovascular: Heart tones S1 S2 present Capillary refill < 3 seconds Patient's skin is warm and dry. Pulses are all present. Edema is 2+ to left midcalf, left ankle, left foot, left toes, right midcalf, right ankle, right foot and right toes Rhythm is sinus tachycardia. Respiratory: Reports shortness of breath at rest since 1.5 hours ago Airway is patent Respiratory effort is even, unlabored, Respiratory pattern is regular, symmetrical, Breath sounds are clear bilaterally. GI: Abdomen is round non-distended, Bowel sounds present X 4 quads. Abd is soft and non tender X 4 quads. : No deficits noted. No signs and/or symptoms were reported regarding the genitourinary system. EENT: No deficits noted. No signs and/or symptoms were reported regarding the EENT system. Derm: Skin is intact, is healthy with good turgor, Skin is pink, warm \T\ dry. Musculoskeletal: Circulation, motion, and sensation intact. Capillary refill < 3 seconds, Range of motion: intact in all extremities. 14:06 Reassessment: Patient appears in no apparent distress at this time. Patient and/or ca1 family updated on plan of care and expected duration. Pain level reassessed. Patient is alert, oriented x 3, equal unlabored respirations, skin warm/dry/pink. 14:46 Reassessment: Patient appears in no apparent distress at this time. Patient is alert, ca1 oriented x 3, equal unlabored respirations, skin warm/dry/pink. Eating sandwich on bed. 15:48 Reassessment: Patient appears in no apparent distress at this time. Patient is alert, ca1 oriented x 3, equal unlabored respirations, skin warm/dry/pink. 16:23 Reassessment: Patient appears in no apparent distress at this time. Patient is alert, ca1 oriented x 3, equal unlabored respirations, skin warm/dry/pink. Vital Signs: 13:06 BP 164 / 113; Pulse 106; Resp 16; Temp 98(O); Pulse Ox 96% on R/A; Weight 77.11 kg (R); ca1 Height 5 ft. 7 in. (170.18 cm) (R); Pain 0/10; 13:30 BP 164 / 101; Pulse 104; Resp 21 S; Pulse Ox 98% on Non-rebreather mask; ca1 14:00 BP 161 / 89; Pulse 110; Resp 24; Pulse Ox 94% on R/A; ca1 14:30 BP 168 / 119; Pulse 109; Resp 24 S; Pulse Ox 99% on R/A; ca1 15:04 BP 164 / 111; Pulse 106; Resp 27; Pulse Ox 100% on Nebulizer Mask; ca1 15:48 BP 179 / 99; Pulse 111; Resp 21 S; Pulse Ox 91% on R/A; ca1 16:21 BP 162 / 110; Pulse 105; Resp 28; Temp 98; Pulse Ox 97% on R/A; rv 16:31 BP 146 / 97; Pulse 106; Resp 21 S; Pulse Ox 97% on R/A; ca1 13:06 Body Mass Index 26.63 (77.11 kg, 170.18 cm) ca1 ED Course: 12:55 Patient arrived in ED. ca1 12:55 Jaime Hough PA is PHCP. [facility] 12:55 Ryan Vasquez MD is Attending Physician. [facility] 13:04 Triage completed. ca1 13:08 Arm band placed on right wrist. ca1 13:08 Patient has correct armband on for positive identification. Bed in low position. Call ca1 light in reach. Side rails up X2. monitoring tech on. Pulse ox on. NIBP on. Warm blanket given. Head of bed elevated. 13:08 No provider procedures requiring assistance completed. ca1 13:11 Sameera Contreras, RN is Primary Nurse. ca1 13:14 X-ray completed. Portable x-ray completed in exam room. Patient tolerated procedure mh1 well. 13:17 Chest Single View XRAY In Process Unspecified. EDMS 14:11 EKG done, by microbiological laboratory technician. reviewed by Jaime ADAMES. dt2 14:27 PO fluids given. em1 16:34 Patient did not have IV access during this emergency room visit. ca1 Administered Medications: 13:17 Drug: LaSIX 40 mg Route: PO; ca1 14:51 Follow up: Urine output 300 ml; Response: No adverse reaction ca1 13:17 Drug: Xopenex (3) 1.25 mg Route: Inhalation; ca1 14:57 Drug: Xopenex (3) 1.25 mg Route: Inhalation; ca1 15:52 Drug: Metoprolol 50 mg Route: PO; ca1 16:23 Follow up: Response: No adverse reaction; Blood pressure is lowered ca1 Output: 14:46 Urine: 300ml (Voided); Total: 300ml. ca1 14:51 Urine: 300ml; Total: 600ml. ca1 14:57 Urine: 220ml (Voided); Total: 820ml. ca1 Outcome: 16:22 Discharge ordered by . dawood 16:33 Discharged to home via wheelchair. ca1 16:33 Condition: stable 16:33 Discharge instructions given to patient, Instructed on discharge instructions, follow up and referral plans. medication usage, Demonstrated understanding of instructions, follow-up care, medications, Prescriptions given X 1. 16:34 Patient left the ED. ca1 Signatures: Dispatcher [employer] EDMS Jaime Hough PA PA jmm Harvey, Martha mh1 Hoang Allison1 Brianna Summers dt2 Andrew Souza RN RN rv Acob, Cheryl, RN RN ca1
--- NOTE | 2018-09-02 16:23 | EDPHYS ---
Physician Documentation [facility] Name: Mark Terrell Age: 67 yrs Sex: Male : 1950 Arrival Date: 09/02/2018 Time: 12:55 Bed 24 Private MD: ED Physician Ryan Vasquez HPI: 09/02 13:44 This 67 yrs old Male presents to ER via EMS with complaints of Shortness Of jmm Breath. 13:44 The patient has shortness of breath at rest. Onset: The symptoms/episode began/occurred jmm today. Duration: The symptoms are chronic, are continuous. The patient's shortness of breath has no apparent modifying factors. Associated signs and symptoms: Pertinent negatives: chest pain. This is a 67 year old male with a history of CHF that presents to the ED with complaints of shortness of breath today. patient is non complaint with home lasix. Patient is currently comfortable and non toxic in appearance in the ED. . Historical: - Allergies: 13:06 Benadryl; ca1 - Home Meds: 13:06 NON-COMPLIANT [Active]; ca1 - PMHx: 13:06 CHF; COPD; Hypertension; Prostate Cancer; Aneurysm; ca1 - PSHx: 13:06 Prostatectomy; ca1 - Immunization history:: Flu vaccine is up to date. - Social history:: Smoking status: Patient uses tobacco products, 5 cigarettes a day. - Ebola Screening: : Patient negative for fever greater than or equal to 101.5 degrees Fahrenheit, and additional compatible Ebola Virus Disease symptoms Patient denies exposure to infectious person Patient denies travel to an Ebola-affected area in the 21 days before illness onset No symptoms or risks identified at this time. ROS: 13:44 Constitutional: Negative for fever, chills, and weight loss, Cardiovascular: Negative jmm for chest pain, palpitations, and edema. 13:44 Respiratory: Positive for cough, shortness of breath, wheezing. 13:44 All other systems are negative. Exam: 13:44 Constitutional: This is a well developed, well nourished patient who is awake, alert, jmm and in no acute distress. Head/Face: atraumatic. Eyes: EOMI, no conjunctival erythema appreciated ENT: Moist Mucus Membranes Neck: Trachea midline, Supple Chest/axilla: Normal chest wall appearance and motion. 13:44 Abdomen/GI: Non distended, soft Back: Normal ROM Skin: General appearance color normal MS/ Extremity: Moves all extremities, no obvious deformities appreciated, no edema noted to the lower extremities Neuro: Awake and alert, normal gait Psych: Behavior is normal, Mood is normal, Patient is cooperative and pleasant 13:44 Cardiovascular: Rate: tachycardic, Rhythm: regular. 13:44 Respiratory: the patient does not display signs of respiratory distress, Respirations: normal, Breath sounds: wheezing: that is mild, is scattered. Vital Signs: 13:06 BP 164 / 113; Pulse 106; Resp 16; Temp 98(O); Pulse Ox 96% on R/A; Weight 77.11 kg (R); ca1 Height 5 ft. 7 in. (170.18 cm) (R); Pain 0/10; 13:30 BP 164 / 101; Pulse 104; Resp 21 S; Pulse Ox 98% on Non-rebreather mask; ca1 14:00 BP 161 / 89; Pulse 110; Resp 24; Pulse Ox 94% on R/A; ca1 14:30 BP 168 / 119; Pulse 109; Resp 24 S; Pulse Ox 99% on R/A; ca1 15:04 BP 164 / 111; Pulse 106; Resp 27; Pulse Ox 100% on Nebulizer Mask; ca1 15:48 BP 179 / 99; Pulse 111; Resp 21 S; Pulse Ox 91% on R/A; ca1 16:21 BP 162 / 110; Pulse 105; Resp 28; Temp 98; Pulse Ox 97% on R/A; rv 16:31 BP 146 / 97; Pulse 106; Resp 21 S; Pulse Ox 97% on R/A; ca1 13:06 Body Mass Index 26.63 (77.11 kg, 170.18 cm) ca1 MDM: 13:06 Patient medically screened. [facility] 16:20 Data reviewed: vital signs, nurses notes. Counseling: I had a detailed discussion with dawood the patient and/or guardian regarding: the historical points, exam findings, and any diagnostic results supporting the discharge/admit diagnosis, radiology results, the need for outpatient follow up, to return to the emergency department if symptoms worsen or persist or if there are any questions or concerns that arise at home. ED course: Patient is alert and non toxic in appearance on discharge. Patient has non labored respirations with normal VS on discharge. Patient advised to follow up with pcp and otherwise given strict return precautions. Patient understood and agrees with the plan of care. . 09/02 12:58 Order name: Chest Single View XRAY; Complete Time: 13:51 [facility] 09/02 16:08 Order name: Diet Regular; Complete Time: 16:09 09/02 12:58 Order name: EKG - Nurse/Tech; Complete Time: 13:52 [facility] 09/02 16:24 Order name: EKG Electrocardiogram EDMS Administered Medications: 13:17 Drug: LaSIX 40 mg Route: PO; ca1 14:51 Follow up: Urine output 300 ml; Response: No adverse reaction ca1 13:17 Drug: Xopenex (3) 1.25 mg Route: Inhalation; ca1 14:57 Drug: Xopenex (3) 1.25 mg Route: Inhalation; ca1 15:52 Drug: Metoprolol 50 mg Route: PO; ca1 16:23 Follow up: Response: No adverse reaction; Blood pressure is lowered ca1 Disposition: 17:02 Co-signature as Attending Physician, Ryan Vasquez MD. rn Disposition: 09/02/18 16:22 Discharged to Home. Impression: Chronic combined systolic (congestive) and diastolic (congestive) heart failure. - Condition is Stable. - Discharge Instructions: Heart Failure. - Prescriptions for Lasix 20 mg Oral Tablet - take 1 tablet by ORAL route once daily; 20 tablet. - Medication Reconciliation Form, Thank You Letter, Antibiotic Education, Prescription Opioid Use form. - Follow up: Private Physician; When: 2 - 3 days; Reason: Recheck today's complaints, Continuance of care, Re-evaluation by your physician. Signatures: Dispatcher [employer] EDMS Jaime Hough PA PA jmm Nieto, Roman, MD MD rn Acob, LASHAY Brasher RN ca1 Corrections: (The following items were deleted from the chart) 16:34 16:22 09/02/2018 16:22 Discharged to Home. Impression: Chronic combined systolic ca1 (congestive) and diastolic (congestive) heart failure. Condition is Stable. Forms are Medication Reconciliation Form, Thank You Letter, Antibiotic Education, Prescription Opioid Use. Follow up: Private Physician; When: 2 - 3 days; Reason: Recheck today's complaints, Continuance of care, Re-evaluation by your physician. dawood
[2018-09-02 21:55] VITALS: BP 146/97; TEMP 98; O2SAT 97
--- NOTE | 2018-09-03 07:04 | EKG ---
Test Date: 2018-09-02 Test Time: 13:55:44 Printing Agent: [place] MEASUREMENT RESULTS: Intervals: Rate: 110 [place]: 148 QRSD: 110 QT: 372 QTc: 503 [place]: P: 69 WA: 148 QRS: 98 T: 39 INTERPRETIVE STATEMENTS: Sinus tachycardia with premature supraventricular complexes with occasional premature ventricular complexes Possible Left atrial enlargement Rightward axis Borderline ECG Compared to ECG 08/31/2018 11:21:33 Atrial premature complex(es) now present Ventricular premature complex(es) now present Right-axis deviation now present Sinus rhythm no longer present ST (T wave) deviation no longer present Prolonged QT interval no longer present Electronically Signed On 09-03-18 07:02:28 CDT by Cyrus Porter
== END 2018-09-02 16:34 | disposition home or self-care (01) ==
LOC: ER 12:52
DX: I10 Essential (primary) hypertension (principal); Z72.0 Tobacco use; Z85.46 Personal history of malignant neoplasm of prostate; Z88.8 Allergy status to other drugs, medicaments and biological substances
CPT/HCPCS: 71045; 93005; 99285

== ENCOUNTER 2018-09-06 22:25 | Observation (INO) | payer OTHER ==
--- OUTSIDE RECORDS SUMMARY | 2018-09-06 22:28 | XMS REPORT ---
:1950 [facility] [address] [place] [address] Care Team Providers Name Role Phone Unavailable [...] 1 View 2017-12-22 23:14:17 Patient: JOSTIN BURTON [facility] Date/Time12/22/2017 22:58 CDTReason for ExamCHF (Congestive [...]
[2018-09-06] MEDS ORDERED: NITROGLYCERIN 0.4 MG/TAB SL ONE (23:30)
[2018-09-06] MEDS ORDERED: ASPIRIN 81 MG CHEWABLE TABLET ONE (23:30)
[2018-09-06 23:44] LABS: Protime INR 1.74
[2018-09-06 23:49] LABS: Absolute Lymphocytes (CBC) 1.7 K/uL (0.7-4.9); Basophils % 0.8 % (0-1.3); Eosinophils % 1.4 % (0-4.4); Hematocrit 36.1 % (39.6-49.0); Lymphocytes % 14.1 % (15.3-44.8); MPV 9.6 fL (7.6-11.3); Monocytes % 9.9 % (3.3-12.3); RBC Red Blood Cell Count 6.35 M/uL (4.33-5.43)
[2018-09-06 23:58] LABS: Albumin 3.1 g/dL (3.4-5.0); Bilirubin Direct 0.6 mg/dL (0-0.2); Bilirubin Total 1.8 mg/dL (0.2-1.0); CKMB Creatine Kinase MB 3.6 ng/mL (0.3-3.6); Magnesium 2.2 mg/dL (1.8-2.4); Protein, Total 6.2 g/dL (6.4-8.2); Troponin (Emerg Dept Use Only) 0.07 ng/mL (0.0-0.045)
[2018-09-07 00:40] LABS: Anisocytosis 2+; Blood Morphology Comment NOTED (NOT SEEN); Hypochromasia 3+; Ovalocytes 2+; Platelet Estimate ADEQ; Target Cells 1+; Urine White Blood Cell Casts OK
[2018-09-07] MEDS ORDERED: FUROSEMIDE 40 MG/4 ML VIAL ONE (01:15)
--- NOTE | 2018-09-07 01:25 | EDPHYS ---
Physician Documentation [facility] Name: Mark Terrell Age: 67 yrs Sex: Male : 1950 Arrival Date: 09/06/2018 Time: 22:26 Bed 5 Private MD: ED Physician Jaylan Browne HPI: 09/07 03:15 This 67 yrs old Male presents to ER via EMS with complaints of SOB. wa 03:15 The patient has shortness of breath at rest, with light activity. Onset: The wa symptoms/episode began/occurred 3 day(s) ago. Duration: The symptoms are continuous, and are steadily getting worse. The patient's shortness of breath is aggravated by exertion, light activity, is alleviated by nothing. Associated signs and symptoms: Pertinent positives: LE edema, Pertinent negatives: chest pain, dizziness, fever, hemoptysis. Severity of symptoms: At their worst the symptoms were moderate in the emergency department the symptoms are worse moderately. The patient has experienced similar episodes in the past, multiple times. The patient has not recently seen a physician. h/o COPD and CHF. pt homeless. states worsening SOB x 3 days. pr does not have medication. Usually comes to ED for treatment. Historical: - Allergies: 09/06 22:38 Benadryl; ch - Home Meds: 22:38 NON-COMPLIANT [Active]; ch - PMHx: 22:38 Aneurysm; CHF; COPD; Hypertension; Prostate Cancer; homeless; ch - PSHx: 22:38 Prostatectomy; ch - Immunization history:: Adult Immunizations up to date. - Social history:: Smoking status: Patient uses tobacco products, smokes one-half pack cigarettes per day. - Ebola Screening: : Patient negative for fever greater than or equal to 101.5 degrees Fahrenheit, and additional compatible Ebola Virus Disease symptoms Patient denies exposure to infectious person Patient denies travel to an Ebola-affected area in the 21 days before illness onset No symptoms or risks identified at this time. - Family history:: not pertinent. - Hospitalizations: : No recent hospitalization is reported. ROS: 09/07 03:17 Constitutional: Negative for fever, chills, and weight loss, Eyes: Negative for injury, wa pain, redness, and discharge, ENT: Negative for injury, pain, and discharge, Neck: Negative for injury, pain, and swelling, Abdomen/GI: Negative for abdominal pain, nausea, vomiting, diarrhea, and constipation, Back: Negative for injury and pain, : Negative for injury, bleeding, discharge, and swelling, Skin: Negative for injury, rash, and discoloration, Neuro: Negative for headache, weakness, numbness, tingling, and seizure, Psych: Negative for depression, anxiety, suicide ideation, homicidal ideation, and hallucinations. Cardiovascular: Positive for edema, orthopnea, Negative for chest pain. Respiratory: Positive for shortness of breath, at rest. Negative for cough. Exam: 03:19 Constitutional: This is a well developed, well nourished patient who is awake, alert, wa and in no acute distress. Head/Face: Normocephalic, atraumatic. Eyes: Pupils equal round and reactive to light, extra-ocular motions intact. Lids and lashes normal. Conjunctiva and sclera are non-icteric and not injected. Cornea within normal limits. Periorbital areas with no swelling, redness, or edema. ENT: Nares patent. No nasal discharge, no septal abnormalities noted. Tympanic membranes are normal and external auditory canals are clear. Oropharynx with no redness, swelling, or masses, exudates, or evidence of obstruction, uvula midline. Mucous membranes moist. Neck: Trachea midline, no thyromegaly or masses palpated, and no cervical lymphadenopathy. Supple, full range of motion without nuchal rigidity, or vertebral point tenderness. No Meningismus. Chest/axilla: Normal chest wall appearance and motion. Nontender with no deformity. No lesions are appreciated. Abdomen/GI: Soft, non-tender, with normal bowel sounds. No distension or tympany. No guarding or rebound. No evidence of tenderness throughout. Back: No spinal tenderness. No costovertebral tenderness. Full range of motion. Skin: Warm, dry with normal turgor. Normal color with no rashes, no lesions, and no evidence of cellulitis. Neuro: Awake and alert, GCS 15, oriented to person, place, time, and situation. Cranial nerves II-XII grossly intact. Motor strength 5/5 in all extremities. Sensory grossly intact. Cerebellar exam normal. Normal gait. Psych: Awake, alert, with orientation to person, place and time. Behavior, mood, and affect are within normal limits. 03:19 Cardiovascular: Rate: tachycardic, Rhythm: regular, Pulses: no pulse deficits are appreciated, Heart sounds: normal, Edema: 3+ edema to level of bilateral LE. 03:19 ECG was reviewed by the Attending Physician. 03:19 Respiratory: mild respiratory distress is noted, Respirations: normal, Breath sounds: bilateral crackles noted , Respiratory rate: tachypneic Vital Signs: 09/06 22:40 BP 153 / 112; Pulse 112; Resp 38; Temp 98.8; Pulse Ox 94% on R/A; Pain 0/10; ch 23:40 BP 159 / 129; Pulse 120; Resp 45; Temp 98.8; Pulse Ox 99% on R/A; Pain 0/10; ch 09/07 00:44 BP 162 / 109; Pulse 107; Resp 35; Pulse Ox 98% on 3 lpm NC; ch 01:30 BP 179 / 89; Pulse 104; Resp 24; Pulse Ox 94% on 3 lpm NC; lp1 02:36 BP 155 / 102; Pulse 111; Resp 34; Pulse Ox 99% on 3 lpm NC; Pain 0/10; ch 03:10 BP 166 / 107; Pulse 111; Resp 29; Pulse Ox 100% on 2 lpm NC; ch 04:30 BP 142 / 86; Pulse 103; Resp 25; Pulse Ox 100% on 2 lpm NC; ch 05:50 BP 168 / 120; Pulse 105; Resp 26; Pulse Ox 99% on R/A; Pain 0/10; ch MDM: 09/06 22:26 Patient medically screened. nm 09/07 03:20 Differential diagnosis: Bronchitis CHF exacerbation, Chronic Obstructive Pulmonary wa Disease Myocardial Infarction pneumonia, pulmonary edema, Unstable Angina. 03:21 Data reviewed: vital signs, nurses notes, lab test result(s), EKG, radiologic studies. nm Test interpretation: by ED physician or midlevel provider: labs noted for elevated BNP. elevated wbc. elevated T.bili. decreased GFR. CXR noted for pulm edema. 03:23 ED course: improved with nitro SL and lasix IV in ED. will admit for further eval. wa noted with mild elevation troponin. 03:53 Test interpretation: by ED physician or midlevel provider: EKG: interp by ok: HR 105. wa rightward axis. multiple PVCs. diffuse ST-T changes. Response to treatment: the patient's symptoms have mildly improved after treatment. Physician consultation: Whit Fuentes MD. 09/06 23:03 Order name: Blood Culture Adult (2) nm 09/06 23:03 Order name: BMP nm 09/06 23:03 Order name: CBC with Diff nm 09/06 23:03 Order name: Ckmb nm 09/06 23:03 Order name: CPK; Complete Time: 00:52 nm 09/06 23:03 Order name: D-Dimer; Complete Time: 00:51 nm 09/06 23:03 Order name: Hepatic Function; Complete Time: 00:51 nm 09/06 23:03 Order name: Lipase; Complete Time: 00:52 nm 09/06 23:03 Order name: PT-INR; Complete Time: 00:52 nm 09/06 23:04 Order name: Blood Culture EDRI 09/06 23:04 Order name: Basic Metabolic Panel; Complete Time: 00:52 EDMS 09/06 23:03 Order name: XRAY CXR (1 view) nm 09/06 23:03 Order name: EKG; Complete Time: 23:06 nm 09/06 23:03 Order name: Cardiac monitoring; Complete Time: 23:07 nm 09/06 23:03 Order name: EKG - Nurse/Tech; Complete Time: 23:19 nm 09/06 23:03 Order name: IV Saline Lock; Complete Time: 23:40 nm 09/06 23:03 Order name: Labs collected and sent; Complete Time: 23:40 nm 09/06 23:03 Order name: O2 Per Protocol; Complete Time: 23:20 nm 09/06 23:04 Order name: CBC with Automated Diff; Complete Time: 00:52 EDMS 09/06 23:04 Order name: CKMB Creatine Kinase MB; Complete Time: 00:52 EDMS 09/06 23:44 Order name: Troponin (Emerg Dept Use Only); Complete Time: 00:52 EDMS 09/06 23:44 Order name: NT PRO-BNP; Complete Time: 00:52 EDMS 09/06 23:44 Order name: Magnesium; Complete Time: 00:52 EDMS 09/06 23:55 Order name: CBC Smear Scan; Complete Time: 00:51 EDMS 09/06 23:03 Order name: O2 Sat Monitoring; Complete Time: 23:20 wa Administered Medications: 09/06 23:10 Drug: Aspirin Chewable Tablet 324 mg Route: PO; ch 23:40 Follow up: Response: No adverse reaction 23:19 Drug: Nitroglycerin 0.4 mg Route: Sublingual; ch 23:39 Follow up: Response: No adverse reaction; Marked relief of symptoms 09/07 01:00 Drug: Lasix 40 mg Route: IVP; Site: right forearm; ch 03:10 Follow up: Response: No adverse reaction Disposition: 09/07/18 01:25 Hospitalization ordered by Whit Fuentes for Observation. Preliminary diagnosis are acute shortness of breath, acute CHF exacerbation. - Bed requested for [facility] ER HOLD. - Status is Observation. ss - Condition is Stable. - Problem is new. - Symptoms have improved. UTI on Admission? No Signatures: Dispatcher [employer] EDMS Arti Gao RN LASHAY Roseann Erickson RN RN mw Smirch, Shelby, RN RN Jaylan Browne MD MD wa Corrections: (The following items were deleted from the chart) 09/06 23:43 23:05 MAGNESIUM+C.LAB.BRZ ordered. EDRI EDMS 23:43 23:05 PROBNP+C.LAB.BRZ ordered. EDRI EDMS 23:43 23:05 TROPONIN (EMERG DEPT USE ONLY)+C.LAB.BRZ ordered. EDRI EDMS 09/07 01:50 01:25 Hospitalization Ordered by Whit Fuentes MD for Observation. Preliminary mw diagnosis is acute shortness of breath; acute CHF exacerbation. Bed requested for Telemetry/MedSurg (observation). Status is Observation. Condition is Stable. Problem is new. Symptoms have improved. UTI on Admission? No. wa 02:35 01:50 09/07/2018 01:25 Hospitalization Ordered by Whit Fuentes MD for Observation. mw Preliminary diagnosis is acute shortness of breath; acute CHF exacerbation. Bed requested for Telemetry/MedSurg (observation). Status is Observation. Condition is Stable. Problem is new. Symptoms have improved. UTI on Admission? No. mw 10:34 02:35 09/07/2018 01:25 Hospitalization Ordered by Whit Fuentes MD for Observation. ss Preliminary diagnosis is acute shortness of breath; acute CHF exacerbation. Bed requested for [facility] ER HOLD. Status is Observation. Condition is Stable. Problem is new. Symptoms have improved. UTI on Admission? No. mw
--- NOTE | 2018-09-07 01:25 | ER ---
Nurse's Notes [facility] Name: Mark Terrell Age: 67 yrs Sex: Male : 1950 Arrival Date: 09/06/2018 Time: 22:26 Bed 5 Private MD: Diagnosis: acute shortness of breath;acute CHF exacerbation Presentation: 09/06 22:35 Presenting complaint: Patient states: I cant breathe. pt c/o SOB, chronic. swelling of ch legs chronic. states he cannot afford his medications so he doesn't take any. states he is homeless. called 911 several times this week, usually just gets a neb treatment, today states he wanted to come to the ER. Transition of care: patient was not received from another setting of care. Onset of symptoms was 2009. Risk Assessment: Do you want to hurt yourself or someone else? Patient reports no desire to harm self or others. Initial Sepsis Screen: Does the patient meet any 2 criteria? No. Patient's initial sepsis screen is negative. Does the patient have a suspected source of infection? No. Patient's initial sepsis screen is negative. Care prior to arrival: Medication(s) given: Albuterol Neb Atrovent Neb. 22:35 Method Of Arrival: EMS: [facility] 22:35 Acuity: ARIEL 3 Triage Assessment: 22:38 General: Appears in no apparent distress. uncomfortable, unkempt, Behavior is ch cooperative. Pain: Denies pain. Neuro: No deficits noted. Respiratory: Reports shortness of breath at rest since months ago, worse the past week. Airway is patent Respiratory effort is even, labored, Respiratory pattern is regular, Breath sounds are diminished bilaterally. 22:40 EENT: No signs and/or symptoms were reported regarding the EENT system. Cardiovascular: Heart tones S1 S2 present Capillary refill is > 3 seconds in bilateral Clubbing of nail beds is present Pulses are all present. Edema is 3+ to right upper arm, right elbow, right forearm, right wrist, right hand, waist, pubic area, left upper thigh, left lower thigh, left knee, left midcalf, left ankle, left foot, left upper arm, left elbow, left forearm, left wrist, left hand, right upper thigh, right lower thigh, right knee, right midcalf, right ankle and right foot Rhythm is sinus rhythm with unifocal PVCs. GI: No signs and/or symptoms were reported involving the gastrointestinal system. Abdomen is round non-distended, pt has edema in abdomen. : Swelling noted on scrotum. Derm: Skin is jaundiced, pt skin has some sores on it, skin is taught from edema, leathery texture. Historical: - Allergies: 22:38 Benadryl; - Home Meds: 22:38 NON-COMPLIANT [Active]; - PMHx: 22:38 Aneurysm; CHF; COPD; Hypertension; Prostate Cancer; homeless; - PSHx: 22:38 Prostatectomy; - Immunization history:: Adult Immunizations up to date. - Social history:: Smoking status: Patient uses tobacco products, smokes one-half pack cigarettes per day. - Ebola Screening: : Patient negative for fever greater than or equal to 101.5 degrees Fahrenheit, and additional compatible Ebola Virus Disease symptoms Patient denies exposure to infectious person Patient denies travel to an Ebola-affected area in the 21 days before illness onset No symptoms or risks identified at this time. - Family history:: not pertinent. - Hospitalizations: : No recent hospitalization is reported. Screenin:58 Abuse screen: Denies threats or abuse. Denies injuries from another. Nutritional screening: No deficits noted. Tuberculosis screening: No symptoms or risk factors identified. Fall Risk None identified. Assessment: 22:58 Reassessment: Patient appears in no apparent distress at this time. Patient and/or family updated on plan of care and expected duration. Pain level reassessed. pt oob to restroom, states "I gotta take a dump.". pt has small sore on sacrum, approx dime sized raw area with non blanching redness on it. pt returned to bed. pt requests water, food, and states he thinks he needs to be admitted. pt educated on need to wait for physician assessment, which has been delayed to take pt to restroom. 23:40 Reassessment: Patient appears in no apparent distress at this time. No changes from previously documented assessment. Patient and/or family updated on plan of care and expected duration. Pain level reassessed. 09/07 00:44 Reassessment: Patient appears in no apparent distress at this time. pt is asleep in ch room, no s/s of distress, pt rr decreased some, physician reviewing lab results prior to giving lasix. 01:35 Reassessment: Patient appears in no apparent distress at this time. No changes from previously documented assessment. Patient and/or family updated on plan of care and expected duration. Pain level reassessed. Dr. Camp states do not send pt to the floor, pt non compliant with his medications and follow up care. states after pt urinates and RR improves, he will be discharged. 02:31 Reassessment: Patient appears in no apparent distress at this time. Patient and/or ch family updated on plan of care and expected duration. Pain level reassessed. pt has urinated 1L out. pt requests more Lasix. awaiting pt to urinate at least another Liter. pt states he feels like he can breath better. 03:09 Reassessment: Patient appears in no apparent distress at this time. Patient and/or ch family updated on plan of care and expected duration. Pain level reassessed. pt urinates another 300mL. 04:30 Reassessment: Patient appears in no apparent distress at this time. No changes from previously documented assessment. Patient and/or family updated on plan of care and expected duration. Pain level reassessed. 04:30 Respiratory: Reports shortness of breath Airway is patent Respiratory effort is even, ch labored, Breath sounds are diminished bilaterally. 05:30 Reassessment: Patient appears in no apparent distress at this time. pt has urinated a ch total of 2400 mL till now. pt has been oob to urinate several times. Dr. Camp notified of pt urination by Grace. pt still c/o shortness of breath. pt rr decreased. 10:09 Reassessment: pt requesting discharge orders updated pt that the dc orders have not sg been entered into the system, awaiting them from , pt stated understanding. Vital Signs: 09/06 22:40 BP 153 / 112; Pulse 112; Resp 38; Temp 98.8; Pulse Ox 94% on R/A; Pain 0/10; ch 23:40 BP 159 / 129; Pulse 120; Resp 45; Temp 98.8; Pulse Ox 99% on R/A; Pain 0/10; ch 09/07 00:44 BP 162 / 109; Pulse 107; Resp 35; Pulse Ox 98% on 3 lpm NC; ch 01:30 BP 179 / 89; Pulse 104; Resp 24; Pulse Ox 94% on 3 lpm NC; lp1 02:36 BP 155 / 102; Pulse 111; Resp 34; Pulse Ox 99% on 3 lpm NC; Pain 0/10; ch 03:10 BP 166 / 107; Pulse 111; Resp 29; Pulse Ox 100% on 2 lpm NC; ch 04:30 BP 142 / 86; Pulse 103; Resp 25; Pulse Ox 100% on 2 lpm NC; ch 05:50 BP 168 / 120; Pulse 105; Resp 26; Pulse Ox 99% on R/A; Pain 0/10; ch ED Course: 09/06 22:26 Patient arrived in ED. ds1 22:26 Jaylan Browne MD is Attending Physician. wa 22:35 Arti Gao, LASHAY is Primary Nurse. ch 22:37 Triage completed. ch 22:40 Arm band placed on left wrist. Patient placed in an exam room, on a stretcher, on cardiac tech, on pulse oximetry. 22:46 LASHAY Chi took patient to the restroom. ag4 22:58 No apparent distress. Resting quietly. ch 22:58 Patient has correct armband on for positive identification. Placed in gown. Bed in low ch position. Call light in reach. Side rails up X 1. pvc monitor on. Pulse ox on. NIBP on. 22:58 No provider procedures requiring assistance completed. ch 23:20 Inserted saline lock: 20 gauge in right forearm, using aseptic technique. Blood ch collected. 23:25 XRAY CXR (1 view) In Process Unspecified. EDMS 09/07 00:31 Patient was given a sandwich with a cup of ice. ag4 00:44 Warm blanket given. Pillow given. Diet tray given. PO fluids given. ch 01:24 Whit Fuentes MD is Hospitalizing Provider. wa 02:30 Patient admitted, IV remains in place. lp1 Administered Medications: 09/06 23:10 Drug: Aspirin Chewable Tablet 324 mg Route: PO; ch 23:40 Follow up: Response: No adverse reaction ch 23:19 Drug: Nitroglycerin 0.4 mg Route: Sublingual; ch 23:39 Follow up: Response: No adverse reaction; Marked relief of symptoms 09/07 01:00 Drug: Lasix 40 mg Route: IVP; Site: right forearm; ch 03:10 Follow up: Response: No adverse reaction ch Outcome: 01:25 Decision to Hospitalize by Provider. ct 05:00 Admitted to ER Hold. Please see [facility] for further documentation. lp1 05:00 Condition: stable 05:00 Instructed on the need for admit. 10:34 Patient left the ED. Signatures: Dispatcher [employer] EDArti Hines RN RN Keith Gonsalves RN RN Adrienne Augustine ds1 Tayler Flynn RN RN Trisha Armando RN RN lp1 Jaylan Browne MD MD wa Guzman, Adan ag4 Corrections: (The following items were deleted from the chart) 05:47 03:00 Condition: stable lp1 lp1 05:47 03:00 Instructed on the need for admit, lp1 lp1 05:47 03:00 Admitted to ER Hold. Please see [facility] for further documentation. lp1 lp1 06:09 09/06 22:38 Respiratory: Airway is patent Respiratory effort is even, unlabored, ch ch
--- NOTE | 2018-09-07 03:36 | P.HP ---
Certification for Inpatient Patient admitted to: Observation With expected LOS: <2 Midnights Practitioner: I am a practitioner with admitting privileges, knowledge of patient current condition, hospital course, and medical plan of care. Services: Services provided to patient in accordance with Admission requirements found in Title 42 Section 412.3 of the Code of Federal Regulations Patient History Date of Service: 09/07/18 Reason for admission: aucte on chrnic systolic CHF History of Present Illness: Mr Terrell is a 67 years old male, well known for our service due to recurrent visit to ED and frequent admissions due to CHF, since the patient is not compliant with his medication. He came to ER several times last week due to SOB , he usually is able to improve with ER initial treatment and is released without admission, however, today the patient remain dyspneic, despite diuretics and nitro patch. He was lower extremity edema, CXR consistent with volume overload, no fever, he is tachycardic, hypertensive and tachypneic. Lab work Allergies poison chandana extract Allergy (Intermediate, Verified 06/28/18 01:19) Hives diphenhydramine HCl [From Benadryl] Adverse Reaction (Intermediate, Verified 01:19) Hives Home Medications: Albuterol Sulfate [Proair Hfa] 2 puff IH TID PRN #1 [email or web address] 07/04/18 Furosemide [Lasix*] 40 mg PO BIDL #60 tab 07/04/18 Lisinopril [Prinivil*] 10 mg PO DAILY #30 tab 07/04/18 Metoprolol Tartrate [Lopressor*] 25 mg PO BID 6AM 6PM #60 tab 07/04/18 Mometasone/Formoterol [Dulera 100 Mcg/5 Mcg Inhaler] 2 puff IH BID #1 inhaler - Past Medical/Surgical History Diabetic: Yes -: History of prostate cancer -: Hypertension -: History of brain aneurysm requiring surgery -: CHF, systolic dysfunction -: COPD -: Tobacco abuse -: Coronary disease, stents x3 to LAD/RCA(Feb 2016) -: Anemia of chronic disease -: GERD -: Hyperlipidemia -: hyperlipidemia -: Prostate surgery -: Brain aneurysm surgery -: Toe surgery R. great toe/childhood -: Heart catheterization-3stents LAD/RCA Psychosocial/ Personal History: Patient is homeless. He is single. He has no children. 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 - Family History Father -: Cancer Notes: brain cancer Mother -: Cancer Notes: pancreatic cancer Brother -: Cancer Notes: lung cancer - Social History Smoking Status: Current every day smoker Counseled patient to stop smoking for: less than 10 minutes Alcohol use: No CD- Drugs: No Caffeine use: Yes Place of Residence: Homeless Review of Systems 10-point ROS is otherwise unremarkable Physical Examination - Physical Exam General: Alert, In no apparent distress HEENT: Atraumatic, PERRLA, Mucous membr. moist/pink, EOMI, Sclerae nonicteric Neck: Supple, 2+ carotid pulse no bruit, No LAD, Without JVD or thyroid abnormality Respiratory: Diminished, Crackles/rales (bibasilar rales) Cardiovascular: Regular rate/rhythm, Normal S1 S2 Gastrointestinal: Normal bowel sounds, No tenderness Musculoskeletal: No tenderness, Swelling (2+ bilateral lower extremity) Integumentary: No rashes Neurological: Normal speech, Normal strength at 5/5 x4 extr, Normal tone, Normal affect Lymphatics: No axilla or inguinal lymphadenopathy - Studies Laboratory Data (last 24 hrs) 09/06/18 23:15: PT 20.1 H, INR 1.74 09/06/18 23:15: WBC 12.2 H D, Hgb 10.1 L, Hct 36.1 L, Plt Count 194 D 09/06/18 23:15: Sodium 143, Potassium 4.0, BUN 19 H, Creatinine 1.39 H, Glucose 135 H, Magnesium 2.2, Total Bilirubin 1.8 H, AST 20, ALT 21, Alkaline Phosphatase 93, Lipase 59 L 09/06/18 23:03: Magnesium Cancelled Assessment and Plan - Problems (Diagnosis) (1) Acute on chronic systolic (congestive) heart failure Onset Date: 09/01/17 Current Visit: No Status: Acute (2) CAD (coronary artery disease) Onset Date: 03/18/16 Current Visit: No Status: Chronic Qualifiers: Coronary Disease-Associated Artery/Lesion type: [place] artery [place] vs. transplanted heart: [place] heart Associated angina: without angina Qualified Code(s): I25.10 - Atherosclerotic heart disease of [place] coronary artery without angina pectoris (3) COPD (chronic obstructive pulmonary disease) Onset Date: 03/21/15 Current Visit: No Status: Chronic Qualifiers: COPD type: unspecified COPD Qualified Code(s): J44.9 - Chronic obstructive pulmonary disease, unspecified (4) Noncompliance Onset Date: 03/18/16 Current Visit: No Status: Chronic (5) Tobacco abuse Onset Date: 02/05/16 Current Visit: No Status: Chronic - Plan Will admit the patient to continue IV diuretics, order fluid restriction low sodium diet, counseled again to be compliance with his medical treatment, follow up clinical progress, he may go home in AM. - Advance Directives Does patient have a Living Will: No Does patient have a Durable POA for Healthcare: No - Code Status/Comfort Care Code Status Assessed: Yes Code Status: Full Code
[2018-09-07] MEDS ORDERED: ONDANSETRON 4 MG/2 ML VIAL IV PRN (05:31)
[2018-09-07 05:52] VITALS: BMI 26.5
--- NOTE | 2018-09-07 08:52 | RAD REPORT ---
EXAM DESCRIPTION: RAD - Chest Single View - 09/06/2018 11:27 pm CLINICAL HISTORY: Dyspnea COMPARISON: September 03, September 02 TECHNIQUE: AP portable chest image was obtained 2322 hours . FINDINGS: No focal mass or consolidation. Interstitial markings are prominent. Cardiomegaly is prese nt and stable. Vascular engorgement is similar or slightly diminished from September 03. Trachea is midline . No measurable pleural effusion and no pneumothorax. Old rib trauma noted on the left. No acute aort ic findings suspected. IMPRESSION: Mild CHF/volume overload pattern similar or slightly less than seen September 03.
[2018-09-07] MEDS ORDERED: FUROSEMIDE 40 MG/4 ML VIAL IV SCH (09:00)
[2018-09-07 10:41] VITALS: TEMP 98.8
[2018-09-07 10:51] VITALS: BP 168/120; O2SAT 99
--- NOTE | 2018-09-07 12:52 | EKG ---
Test Date: 2018-09-06 Test Time: 23:10:08 Thermostat Machine Tender: ALON MEASUREMENT RESULTS: Intervals: Rate: 105 ID: [id number] QRSD: 112 QT: 394 QTc: 520 [place]: P: 71 ID: [id number] QRS: 94 T: 19 INTERPRETIVE STATEMENTS: Sinus tachycardia with frequent premature ventricular complexes Possible Left atrial enlargement Rightward axis Prolonged QT Abnormal ECG Compared to ECG 09/02/2018 13:55:44 Prolonged QT interval now present Atrial premature complex(es) no longer present Electronically Signed On 09-07-18 12:49:38 CDT by Cyrus Porter
--- NOTE | 2018-09-07 13:50 | P.DS ---
Admission Date: 09/07/18 Discharge Date: 09/07/18 Primary Care Provider: homeless Disposition: ROUTINE DISCHARGE Discharge Condition: GOOD Reason for Admission: aucte on chrnic systolic CHF Consultations: none Procedures: Medical Problem List: Shortness of breath secondary to acute on chronic systolic CHF complicated with poor compliance of follow up and medication Hypertension COPD Tobacco abuse Brief History of Present Illness: 59-year-old male presented to the emergency room with shortness of breath and edema to the lower extremity. Patient found to have acute on chronic systolic CHF. The patient was admitted for treatment. Patient with history of noncompliance with medication and follow up. Hospital Course: Patient presents with acute on chronic systolic CHF complicated with poor compliance of medication and follow up. Patient is homeless. Patient was treated during the course of his stay. His condition improved. At discharge he is without any significant shortness of breath. Room-air saturations within normal range. Case discussed with adoption social worker to help arrange for him to get his medications as he has had multiple admissions due to noncompliance. At discharge patient will continue with Lasix 80 mg 1 pill twice daily. Patient will continue with a 1500 cc per day fluid restriction and low-salt diet. He is to monitor his weight daily. Compliance with medication and follow up address in detail. Patient will continue with beta-vlad and PAWEL-inhibitor therapy for his CHF. Patient may also continue with aspirin 81 mg daily. Patient with underlying hypertension. At discharge he will continue with metoprolol 25 mg 1 pill twice daily and lisinopril 10 mg 1 pill daily. Recommend to maintain blood pressures less 150/80. Further adjustment can be done by his PCP. Patient with underlying COPD. At discharge he will continue with Dulera 2 puff twice daily and Pro air 2 puffs 3 times a day as needed for shortness of breath. Vital Signs/Physical Exam: Temp Pulse Resp BP Pulse Ox 98.8 F 105 H 26 H 168/120 H 09/06/18 23:40 09/07/18 05:50 09/07/18 05:50 09/07/18 05:50 General: Alert, In no apparent distress, Oriented x3, Cooperative HEENT: Atraumatic Neck: Supple Respiratory: Clear to auscultation bilaterally, Normal air movement Cardiovascular: Normal pulses, Regular rate/rhythm Gastrointestinal: Normal bowel sounds, Soft and benign, Non-distended, No masses , No rebound, No guarding Musculoskeletal: No erythema, No tenderness, No warmth Integumentary: Other (Mild pitting edema to the lower extremities bilateral) Neurological: Normal speech, Normal strength at 5/5 x4 extr, Normal tone Laboratory Data at Discharge: WBC 12.2 K/uL (4.3-10.9) H D 09/06/18 23:15 Hgb 10.1 g/dL (13.6-17.9) L 09/06/18 23:15 Hct 36.1 % (39.6-49.0) L 09/06/18 23:15 Plt Count 194 K/uL (152-406) D 09/06/18 23:15 PT 20.1 SECONDS (9.5-12.5) H 09/06/18 23:15 INR 1.74 09/06/18 23:15 Sodium 143 mmol/L (136-145) 09/06/18 23:15 Potassium 4.0 mmol/L (3.5-5.1) 09/06/18 23:15 BUN 19 mg/dL (7-18) H 09/06/18 23:15 Creatinine 1.39 mg/dL (0.55-1.3) H 09/06/18 23:15 Glucose 135 mg/dL (74-106) H 09/06/18 23:15 Magnesium 2.2 mg/dL (1.8-2.4) 09/06/18 23:15 Total Bilirubin 1.8 mg/dL (0.2-1.0) H 09/06/18 23:15 AST 20 U/L (15-37) 09/06/18 23:15 ALT 21 U/L (12-78) 09/06/18 23:15 Alkaline Phosphatase 93 U/L (45-117) 09/06/18 23:15 Lipase 59 U/L (73-393) L 09/06/18 23:15 Home Medications: Albuterol Sulfate [Proair Hfa] 2 puff IH TID PRN #1 hfa.aer.ad 09/07/18 Furosemide [Lasix] 80 mg PO BID #60 tablet 09/07/18 Lisinopril 10 mg PO DAILY #30 tablet 09/07/18 Metoprolol Tartrate [Lopressor*] 25 mg PO BID #60 tab 09/07/18 Mometasone/Formoterol [Dulera 100 Mcg/5 Mcg Inhaler] 2 puff IH BID #1 inhaler New Medications: Albuterol Sulfate [Proair Hfa] 2 puff IH TID PRN #1 hfa.aer.ad PRN Reason: Shortness Of Breath Furosemide [Lasix] 80 mg PO BID #60 tablet Lisinopril 10 mg PO DAILY #30 tablet Metoprolol Tartrate [Lopressor*] 25 mg PO BID #60 tab Mometasone/Formoterol [Dulera 100 Mcg/5 Mcg Inhaler] 2 puff IH BID #1 inhaler Patient Discharge Instructions: 1. Patient will follow up with a PCP to establish care and continue his medication. 2. Patient presents with acute on chronic systolic CHF complicated with poor compliance of medication and follow up. Patient is homeless. Patient was treated during the course of his stay. His condition improved. At discharge he is without any significant shortness of breath. Room-air saturations within normal range. Case discussed with adoption social worker to help arrange for him to get his medications as he has had multiple admissions due to noncompliance. At discharge patient will continue with Lasix 80 mg 1 pill twice daily. Patient will continue with a 1500 cc per day fluid restriction and low-salt diet. He is to monitor his weight daily. Compliance with medication and follow up address in detail. Patient will continue with beta-vlad and PAWEL-inhibitor therapy for his CHF. Patient may also continue with aspirin 81 mg daily. 3. Patient with underlying hypertension. At discharge he will continue with metoprolol 25 mg 1 pill twice daily and lisinopril 10 mg 1 pill daily. Recommend to maintain blood pressures less 150/80. Further adjustment can be done by his PCP. 4. Patient with underlying COPD. At discharge he will continue with Dulera 2 puff twice daily and Pro air 2 puffs 3 times a day as needed for shortness of breath. Diet: AHA Activity: Ad kim Time spent managing pt's care (in minutes): 55
== END 2018-09-07 10:30 | disposition home or self-care (01) ==
LOC: ER 22:25 → ERHOLD 09-07 04:09
PROVIDERS: ADMIT Internal Medicine; ATTEND Internal Medicine
DX: I11.0 Hypertensive heart disease with heart failure (principal); I50.23 Acute on chronic systolic (congestive) heart failure; I25.10 Atherosclerotic heart disease of native coronary artery without angina pectoris; K21.9 Gastro-esophageal reflux disease without esophagitis; J44.9 Chronic obstructive pulmonary disease, unspecified; E78.5 Hyperlipidemia, unspecified; F17.210 Nicotine dependence, cigarettes, uncomplicated; Z59.0 Homelessness; Z91.14 Patient's other noncompliance with medication regimen; Z95.5 Presence of coronary angioplasty implant and graft; Z85.46 Personal history of malignant neoplasm of prostate
CPT/HCPCS: 93005; 87040 ×2; 85025; 80048; 36415; 83735; 82550; 85610; 85379; 80076; 84484; 82553; 83690; 83880; 71045; 96374; 99285; J1940

== ENCOUNTER 2018-09-07 13:46 | Emergency (ER) | payer OTHER ==
--- OUTSIDE RECORDS SUMMARY | 2018-09-07 13:49 | XMS REPORT ---
:1950 [facility] [address] [place] [address] Care Team Providers Name Role Phone Unavailable Unavailable Unavailable Payers Payer Name Policy Type Policy Number Effective Date Expiration Date Problems This patient has no known problems. Allergies, Adverse Reactions, Alerts Allergy Name Allergy Status Severity Reaction(s) Onset Inactive Treating Comments Type Date Date Clinician diphenhydramine DA Active U 06 00:00: 00 Medications This patient has no known medications. Results Test Description Test Time Test Comments Text Results Atomic Results Result Comments XR Chest 1 View 2017-12-22 23:14:17 Patient: JOSTIN BURTON [facility] Date/Time12/22/2017 22:58 CDTReason for ExamCHF (Congestive [...]
--- NOTE | 2018-09-07 14:08 | ER ---
Nurse's Notes [facility] Name: Mark Terrell Age: 67 yrs Sex: Male : 1950 Arrival Date: 09/07/2018 Time: 13:49 Bed 16 Private MD: Diagnosis: Homelessness;COPD Presentation: 09/07 13:49 Presenting complaint: EMS states: Reports SOB that is chronic. Patient seen in this ER aj and discharged this AM. NAD. Transition of care: patient was not received from another setting of care. Onset of symptoms was September 07, 2018. Risk Assessment: Do you want to hurt yourself or someone else? Patient reports no desire to harm self or others. Initial Sepsis Screen: Does the patient meet any 2 criteria? No. Patient's initial sepsis screen is negative. Does the patient have a suspected source of infection? No. Patient's initial sepsis screen is negative. Care prior to arrival: None. 13:49 Method Of Arrival: EMS: [facility] 13:49 Acuity: ARIEL 3 aj Triage Assessment: 13:51 General: Appears in no apparent distress. comfortable, Behavior is calm, cooperative, aj appropriate for age. Pain: Denies pain. Neuro: Level of Consciousness is awake, alert, obeys commands, Oriented to person, place, time, situation, Appropriate for age. Respiratory: Airway is patent Respiratory effort is even, unlabored, Respiratory pattern is regular, symmetrical. Derm: Skin is intact, is healthy with good turgor, Skin is pink, warm \T\ dry. normal. Historical: - Allergies: 13:51 Benadryl; aj - Home Meds: 13:51 NON-COMPLIANT [Active]; aj - PMHx: 13:51 Aneurysm; CHF; COPD; homeless; Hypertension; Prostate Cancer; aj - PSHx: 13:51 Prostatectomy; aj - Immunization history:: Adult Immunizations up to date. - Social history:: Smoking status: Patient uses tobacco products, smokes one-half pack cigarettes per day. - Ebola Screening: : Patient negative for fever greater than or equal to 101.5 degrees Fahrenheit, and additional compatible Ebola Virus Disease symptoms Patient denies exposure to infectious person Patient denies travel to an Ebola-affected area in the 21 days before illness onset No symptoms or risks identified at this time. Screenin:14 Abuse screen: Denies threats or abuse. Denies injuries from another. Nutritional bp screening: No deficits noted. Tuberculosis screening: No symptoms or risk factors identified. Fall Risk None identified. Assessment: 13:52 Reassessment: No changes from previously documented assessment. aj 14:45 Reassessment: PT D/C HOME AMBULATORY, DX WITH HOMELESSNESS. bp Vital Signs: 13:51 BP 159 / 79; Pulse 51; Resp 20; Temp 98.1; Pulse Ox 95% on R/A; Weight 72.57 kg; Height aj 5 ft. 8 in. (172.72 cm); 13:51 Body Mass Index 24.33 (72.57 kg, 172.72 cm) aj ED Course: 13:49 Patient arrived in ED. aj 13:50 Triage completed. aj 13:50 Eric Ochoa MD is Attending Physician. ps1 13:51 Arm band placed on left wrist. Patient placed in an exam room, on a stretcher, on aj oxygen, on pulse oximetry. 13:59 Liane Morataya, RN is Primary Nurse. aj 14:14 Patient has correct armband on for positive identification. Bed in low position. Call bp light in reach. Side rails up X2. 14:45 No provider procedures requiring assistance completed. Patient did not have IV access bp during this emergency room visit. Administered Medications: No medications were administered Outcome: 14:08 Discharge ordered by . ps1 14:45 Discharged to home ambulatory. bp 14:45 Condition: stable 14:45 Discharge instructions given to patient, Instructed on discharge instructions, follow up and referral plans. Demonstrated understanding of instructions, follow-up care. 14:47 Patient left the ED. bp Signatures: Liane Morataya, RN Joe Sadler RN Eric Colon MD MD ps1
--- NOTE | 2018-09-07 14:08 | EDPHYS ---
Physician Documentation [facility] Name: Mark Terrell Age: 67 yrs Sex: Male : 1950 Arrival Date: 09/07/2018 Time: 13:49 Bed 16 Private MD: ED Physician Eric Ochoa HPI: 09/07 13:59 This 67 yrs old Male presents to ER via EMS with complaints of shortness of ps1 breath. 13:59 patient was seen and evaluated a couple of hours ago and discharged by hospitalist. ps1 Well known to the ED, with over 80 visits. EMS was dispatched to another patient [place] bus [place] and patient said that he needed to go to the ED for SOB. Patient has no new complaints with stable COPD. He is speaking in full sentences and in NAD. VSS. . Historical: - Allergies: 13:51 Benadryl; aj - Home Meds: 13:51 NON-COMPLIANT [Active]; aj - PMHx: 13:51 Aneurysm; CHF; COPD; homeless; Hypertension; Prostate Cancer; aj - PSHx: 13:51 Prostatectomy; aj - Immunization history:: Adult Immunizations up to date. - Social history:: Smoking status: Patient uses tobacco products, smokes one-half pack cigarettes per day. - Ebola Screening: : Patient negative for fever greater than or equal to 101.5 degrees Fahrenheit, and additional compatible Ebola Virus Disease symptoms Patient denies exposure to infectious person Patient denies travel to an Ebola-affected area in the 21 days before illness onset No symptoms or risks identified at this time. ROS: 13:59 Constitutional: Negative for fever, chills, and weight loss, Eyes: Negative for injury, ps1 pain, redness, and discharge, Cardiovascular: Negative for chest pain, palpitations, and edema, Abdomen/GI: Negative for abdominal pain, nausea, vomiting, diarrhea, and constipation, MS/Extremity: Negative for injury and deformity, Skin: Negative for injury, rash, and discoloration, Neuro: Negative for headache, weakness, numbness, tingling, and seizure. 13:59 Respiratory: Positive for shortness of breath. Exam: 13:59 Constitutional: This is a well developed, well nourished patient who is awake, alert, ps1 and in no acute distress. Head/Face: Normocephalic, atraumatic. Eyes: Pupils equal round and reactive to light, extra-ocular motions intact. Lids and lashes normal. Conjunctiva and sclera are non-icteric and not injected. Chest/axilla: Normal chest wall appearance and motion. Nontender with no deformity. No lesions are appreciated. Cardiovascular: Regular rate and rhythm. No gallops, murmurs, or rubs. Normal PMI, no JVD. No pulse deficits. Respiratory: Lungs have equal breath sounds bilaterally, clear to auscultation and percussion. No rales, rhonchi or wheezes noted. No increased work of breathing, no retractions or nasal flaring. Abdomen/GI: Soft, non-tender, with normal bowel sounds. No distension or tympany. No guarding or rebound. No evidence of tenderness throughout. Back: No spinal tenderness. No costovertebral tenderness. Full range of motion. MS/ Extremity: Pulses equal, no cyanosis. Neurovascular intact. Full, normal range of motion. Neuro: Awake and alert, GCS 15, oriented to person, place, time, and situation. Cranial nerves II-XII grossly intact. Sensory grossly intact. Psych: Awake, alert, with orientation to person, place and time. Behavior, mood, and affect are within normal limits. Vital Signs: 13:51 BP 159 / 79; Pulse 51; Resp 20; Temp 98.1; Pulse Ox 95% on R/A; Weight 72.57 kg; Height aj 5 ft. 8 in. (172.72 cm); 13:51 Body Mass Index 24.33 (72.57 kg, 172.72 cm) aj MDM: 13:59 Data reviewed: and as a result, I will discharge patient. ED course: Patient was seen ps1 and evaluated. I personally saw the patient a couple of hours ago. He is in no acute distress. No respiratory distress. Speaking in full sentences. Asking for water. Labs and imaging reviewed. CXR improved from previous. 95%. Not hypoxic. stable for discharge. . 14:08 Patient medically screened. ps1 Administered Medications: No medications were administered Disposition: 09/07/18 14:08 Discharged to Home. Impression: Homelessness, COPD. - Condition is Stable. - Discharge Instructions: Chronic Obstructive Pulmonary Disease. - Medication Reconciliation Form, Thank You Letter, Antibiotic Education, Prescription Opioid Use form. - Follow up: Private Physician; When: As needed; Reason: Recheck today's complaints, Continuance of care, Re-evaluation by your physician. Follow up: Emergency Department; When: As needed; Reason: Fever > 102 F, Worsening of condition. - Problem is chronic. - Symptoms are unchanged. Signatures: Liane Morataya RN RN Joe Rose RN RN Eric Clement MD MD ps1 Corrections: (The following items were deleted from the chart) 14:47 14:08 09/07/2018 14:08 Discharged to Home. Impression: Homelessness; COPD. Condition is bp Stable. Forms are Medication Reconciliation Form, Thank You Letter, Antibiotic Education, Prescription Opioid Use. Follow up: Private Physician; When: As needed; Reason: Recheck today's complaints, Continuance of care, Re-evaluation by your physician. Follow up: Emergency Department; When: As needed; Reason: Fever > 102 F, Worsening of condition. Problem is chronic. Symptoms are unchanged. ps1
[2018-09-07 16:17] VITALS: BP 159/79; TEMP 98.1; O2SAT 95
== END 2018-09-07 14:47 | disposition home or self-care (01) ==
LOC: ER 13:46
DX: Z59.0 Homelessness (principal); J44.9 Chronic obstructive pulmonary disease, unspecified; I11.0 Hypertensive heart disease with heart failure; I50.9 Heart failure, unspecified; C61 Malignant neoplasm of prostate; F17.210 Nicotine dependence, cigarettes, uncomplicated
CPT/HCPCS: 99284

== ENCOUNTER 2018-09-12 12:44 | Emergency (ER) | payer OTHER ==
--- OUTSIDE RECORDS SUMMARY | 2018-09-12 12:46 | XMS REPORT ---
:1950 [facility] [address] [place] [address] Care Team Providers Name Role Phone Unavailable [...] XR Chest 1 View 2017-12-22 23:14:17 Patient: [facility]IN [facility] Date/Time12/22/2017 22:58 CDTReason for ExamCHF (Congestive [...]
[2018-09-12] MEDS ORDERED: FUROSEMIDE 40 MG TABLET ONE (13:26)
[2018-09-12] MEDS ORDERED: IPRATROPIUM BROM 0.5MG/2.5ML ONE (13:26)
[2018-09-12] MEDS ORDERED: ALBUTEROL 2.5 MG/3 ML NEB SOL ONE (13:26)
[2018-09-12] MEDS ORDERED: predniSONE 20 MG TAB ONE (13:27)
--- NOTE | 2018-09-12 13:49 | RAD REPORT ---
EXAM DESCRIPTION: CT - [id number] - 09/12/2018 1:39 pm CLINICAL HISTORY: Trauma, head and neck injury. PAIN COMPARISON: CT HEAD CSPINE MPR WO CONTRAST dated 11/09/2011 TECHNIQUE: Axial 5 mm thick images of the head were obtained. Axial 2 mm thick images of the cervical spine were obtained with sagittal and coronal reconstruction images generated and reviewed. All CT scans are performed using dose optimization technique as appropriate and may include automated exposure control or mA/KV adjustment according to patient size. FINDINGS: CT HEAD WITHOUT CONTRAST: No acute hemorrhage, hydrocephalus or extra-axial collection is identified.Aneurysm clips are seen in the right sellar region. Gliosis is present involving the right temporal lobe. The paranasal sinuses and mastoids are clear.Mild vertebral atherosclerosis.Right craniotomy changes are present. CT CERVICAL SPINE WITHOUT CONTRAST: No fracture or subluxation.Mild spondylosis is noted lower cervical levels.No prevertebral soft tissu es swelling is identified. Bilateral pleural effusions incidentally noted in upper lung means. IMPRESSION: No acute intracranial or cervical spine findings. Bilateral pleural effusions.
--- NOTE | 2018-09-12 14:09 | RAD REPORT ---
EXAM DESCRIPTION: RAD - Elbow Right 3 View - 09/12/2018 2:02 pm CLINICAL HISTORY: PAIN Trauma, pain COMPARISON: <Comparisons> FINDINGS: No acute fracture or dislocation seen. Mild soft tissue swelling along the medial aspect o f the elbow.
--- NOTE | 2018-09-12 14:09 | RAD REPORT ---
EXAM DESCRIPTION: RAD - Chest Single View - 09/12/2018 2:02 pm CLINICAL HISTORY: SOB Chest pain. COMPARISON: <Comparisons> FINDINGS: Portable technique limits examination quality. Mild interstitial pulmonary edema suspected. The heart is moderately enlarged in size. Several old le ft posterior rib fracture seen. IMPRESSION: Mild CHF.
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
[2018-09-12 15:08] VITALS: TEMP 97.1
[2018-09-12 15:10] VITALS: BP 159/99; O2SAT 94
--- NOTE | 2018-09-13 06:02 | EKG ---
Test Date: 2018-09-12 Test Time: 13:23:47 Field Cashier: ROSET MEASUREMENT RESULTS: Intervals: Rate: 93 RI: 148 QRSD: 118 QT: 410 QTc: 509 [place]: P: RI: 148 QRS: 118 T: -41 INTERPRETIVE STATEMENTS: Sinus rhythm with occasional premature ventricular complexes Right axis deviation Intraventricular conduction delay Non specific ST and T abnormality Abnormal ECG Compared to ECG 09/06/2018 23:10:08 Sinus tachycardia no longer present Electronically Signed On 09-13-18 06:01:17 CDT by Jitendra Willams
== END 2018-09-12 14:55 | disposition home or self-care (01) ==
LOC: ER 12:44
DX: S00.90XA Unspecified superficial injury of unspecified part of head, initial encounter (principal); S50.01XA Contusion of right elbow, initial encounter; I50.9 Heart failure, unspecified; Z91.14 Patient's other noncompliance with medication regimen; V18.0XXA Pedal cycle driver injured in noncollision transport accident in nontraffic accident, initial encounter; I10 Essential (primary) hypertension; F17.210 Nicotine dependence, cigarettes, uncomplicated; Z88.8 Allergy status to other drugs, medicaments and biological substances; Z85.46 Personal history of malignant neoplasm of prostate; Z59.0 Homelessness
CPT/HCPCS: 70450; 71045; 72125; 93005; 94640; 99285; J7512

== ENCOUNTER 2018-09-14 15:09 | Emergency (ER) | payer OTHER ==
--- OUTSIDE RECORDS SUMMARY | 2018-09-14 15:11 | XMS REPORT ---
:1950 [facility] [address] [place] [address] Care Team Providers Name Role Phone Unavailable [...] 1 View 2017-12-22 23:14:17 Patient: JOSTIN BURTON [facility] Date/Time12/22/2017 22:58 CDTReason for ExamCHF [...]
[2018-09-14] MEDS ORDERED: ALBUTEROL 2.5 MG/3 ML NEB SOL ONE (16:04)
[2018-09-14] MEDS ORDERED: FUROSEMIDE 20 MG TABLET ONE (16:04)
[2018-09-14] MEDS ORDERED: FUROSEMIDE 40 MG TABLET ONE (16:05)
[2018-09-14] MEDS ORDERED: IPRATROPIUM BROM 0.5MG/2.5ML ONE (16:05)
--- NOTE | 2018-09-14 17:17 | ER ---
Nurse's Notes [facility] Name: Mark Terrell Age: 67 yrs Sex: Male : 1950 Arrival Date: 09/14/2018 Time: 15:12 Bed 26 Private MD: Diagnosis: Chronic obstructive pulmonary disease, unspecified Presentation: 09/14 15:12 Presenting complaint: EMS states: pt c/o of shortness of breath. Pt SPO2 at 97% RA. ca1 Transition of care: patient was not received from another setting of care. Onset of symptoms was September 14, 2018. Risk Assessment: Do you want to hurt yourself or someone else? Patient reports no desire to harm self or others. Risk Assessment: Do you want to hurt yourself or someone else? Patient reports no desire to harm self or others. Initial Sepsis Screen: Does the patient meet any 2 criteria? No. Patient's initial sepsis screen is negative. Does the patient have a suspected source of infection? No. Patient's initial sepsis screen is negative. Care prior to arrival: None. 15:12 Method Of Arrival: EMS: [facility] ca1 15:12 Acuity: ARIEL 3 ca1 Triage Assessment: 15:16 General: Appears in no apparent distress. unkempt, Behavior is calm, cooperative, ca1 appropriate for age. Pain: Denies pain. Historical: - Allergies: 15:16 Benadryl; ca1 - Home Meds: 15:16 NON-COMPLIANT [Active]; ca1 - PMHx: 15:16 Aneurysm; CHF; COPD; homeless; Hypertension; Prostate Cancer; ca1 - PSHx: 15:16 None; ca1 - Immunization history:: Adult Immunizations not up to date. - Social history:: Smoking status: Patient uses tobacco products, smokes one-half pack cigarettes per day. - Ebola Screening: : Patient negative for fever greater than or equal to 101.5 degrees Fahrenheit, and additional compatible Ebola Virus Disease symptoms Patient denies exposure to infectious person Patient denies travel to an Ebola-affected area in the 21 days before illness onset No symptoms or risks identified at this time. Screenin:30 Abuse screen: Denies threats or abuse. Denies injuries from another. Nutritional ca1 screening: No deficits noted. Tuberculosis screening: No symptoms or risk factors identified. Fall Risk None identified. Assessment: 15:30 General: Appears in no apparent distress. unkempt, Behavior is calm, cooperative, ca1 appropriate for age. Pain: Denies pain. Neuro: Level of Consciousness is awake, alert, obeys commands, Oriented to person, place, time, situation. Cardiovascular: Heart tones S1 S2 present Capillary refill < 3 seconds Patient's skin is warm and dry. Pulses are all present. Cardiovascular: Rhythm is sinus rhythm. Respiratory: Airway. Respiratory: Reports shortness of breath Airway is patent Respiratory effort is even, unlabored, Respiratory pattern is regular, symmetrical, Breath sounds are clear bilaterally. GI: Abdomen is round non-distended, Bowel sounds present X 4 quads. Abd is soft and non tender X 4 quads. : No deficits noted. No signs and/or symptoms were reported regarding the genitourinary system. EENT: No deficits noted. No signs and/or symptoms were reported regarding the EENT system. Derm: Skin is intact, is healthy with good turgor, Skin is pink, warm \T\ dry. Musculoskeletal: Circulation, motion, and sensation intact. Capillary refill < 3 seconds, Range of motion: intact in all extremities. 16:26 Reassessment: Patient appears in no apparent distress at this time. Patient and/or ca1 family updated on plan of care and expected duration. Pain level reassessed. Patient is alert, oriented x 3, equal unlabored respirations, skin warm/dry/pink. Pt given turkey sandwich and juice. 17:53 Reassessment: Patient appears in no apparent distress at this time. Patient and/or ca1 family updated on plan of care and expected duration. Pain level reassessed. Patient is alert, oriented x 3, equal unlabored respirations, skin warm/dry/pink. Patient states feeling better. Vital Signs: 15:16 BP 138 / 86; Pulse 90; Resp 20 S; Temp 97.9(O); Pulse Ox 94% ; Weight 79.38 kg (R); ca1 Height 5 ft. 11 in. (180.34 cm) (R); Pain 0/10; 16:26 BP 145 / 95; Pulse 99; Resp 22 S; Pulse Ox 94% on R/A; ca1 17:30 BP 147 / 89; Pulse 93; Resp 23 S; Temp 98(O); Pulse Ox 95% on R/A; ca1 15:16 Body Mass Index 24.41 (79.38 kg, 180.34 cm) ca1 ED Course: 15:12 Patient arrived in ED. ca1 15:15 Triage completed. ca1 15:16 Arm band placed on right wrist. ca1 15:17 Rj Arnold NP is PHCP. pm1 15:17 Puma Chi MD is Attending Physician. pm1 15:30 Patient has correct armband on for positive identification. Bed in low position. Call ca1 light in reach. Side rails up X2. campus monitor on. Pulse ox on. NIBP on. Warm blanket given. 15:30 No provider procedures requiring assistance completed. Patient did not have IV access ca1 during this emergency room visit. 15:43 Sameera Contreras, RN is Primary Nurse. ca1 Administered Medications: 15:45 Drug: Albuterol 2.5 mg Route: Inhalation; ca1 15:45 Drug: AtroVENT Aerosol 0.5 mg Route: Inhalation; ca1 15:45 Drug: predniSONE 60 mg Route: PO; ca1 17:49 Follow up: Urine output 420 ml; Response: No adverse reaction ca1 Output: 17:49 Urine: 420ml; Total: 420ml. ca1 Outcome: 17:16 Discharge ordered by . pm1 17:54 Discharged to home ambulatory. aj 17:54 Condition: good 17:54 Discharge instructions given to patient, Instructed on discharge instructions, follow up and referral plans. medication usage, Demonstrated understanding of instructions, follow-up care, medications, Prescriptions given X 2. 17:55 Patient left the ED. aj Signatures: Liane Morataya RN RN aj Marinas, Patrick, NP AP[employer]URE M[employer] ETCHER pm1 Sameera Contreras RN RN ca1
--- NOTE | 2018-09-14 17:17 | EDPHYS ---
Physician Documentation [facility] Name: Mark Terrell Age: 67 yrs Sex: Male : 1950 Arrival Date: 09/14/2018 Time: 15:12 Bed 26 Private MD: ED Physician Puma Chi HPI: 09/14 16:09 This 67 yrs old Male presents to ER via EMS with complaints of Shortness of pm1 breath. 16:09 The patient has shortness of breath at rest. Onset: The symptoms/episode began/occurred pm1 today. Duration: The symptoms are continuous. The patient's shortness of breath is aggravated by nothing, is alleviated by nothing. Associated signs and symptoms: Pertinent negatives: chest pain, non-productive cough, productive cough, diaphoresis, fever, nausea, vomiting. Severity of symptoms: in the emergency department the symptoms are unchanged Pain is currently a 0 / 10. The patient has experienced similar episodes in the past, multiple times, same complaint addressed in the ER that usually resolves with breathing treatments and steroids. Patient with history of COPD and CHF. Patient has filled his Lasix from last visit to the ER 2 days ago. Does not use inhaler of breathing treatments. Did not fill steroids from last treatment. Smokes 1/2 ppd. The patient has been recently seen at the [facility] Emergency Department, for similar complaints 2 days ago. Given prescription for Lasix, steroids, and inhaler. Patient only filled Lasix prescription. Patient was not given any treatments in route by EMS. Historical: - Allergies: 15:16 Benadryl; ca1 - Home Meds: 15:16 NON-COMPLIANT [Active]; ca1 - PMHx: 15:16 Aneurysm; CHF; COPD; homeless; Hypertension; Prostate Cancer; ca1 - PSHx: 15:16 None; ca1 - Immunization history:: Adult Immunizations not up to date. - Social history:: Smoking status: Patient uses tobacco products, smokes one-half pack cigarettes per day. - Ebola Screening: : Patient negative for fever greater than or equal to 101.5 degrees Fahrenheit, and additional compatible Ebola Virus Disease symptoms Patient denies exposure to infectious person Patient denies travel to an Ebola-affected area in the 21 days before illness onset No symptoms or risks identified at this time. ROS: 16:09 Constitutional: Negative for fever, chills, and weight loss, Eyes: Negative for injury, pm1 pain, redness, and discharge, ENT: Negative for injury, pain, and discharge, Neck: Negative for injury, pain, and swelling, Cardiovascular: Negative for chest pain, palpitations, and edema. 16:09 Abdomen/GI: Negative for abdominal pain, nausea, vomiting, diarrhea, and constipation, Back: Negative for injury and pain, MS/Extremity: Negative for injury and deformity, Skin: Negative for injury, rash, and discoloration, Neuro: Negative for headache, weakness, numbness, tingling, and seizure. 16:09 Respiratory: Positive for shortness of breath, Negative for cough, sputum production, wheezing. Exam: 16:09 Constitutional: This is a well developed, well nourished patient who is awake, alert, pm1 and in no acute distress. Head/Face: Normocephalic, atraumatic. Neck: Trachea midline, no thyromegaly or masses palpated, and no cervical lymphadenopathy. Supple, full range of motion without nuchal rigidity, or vertebral point tenderness. No Meningismus. Chest/axilla: Normal chest wall appearance and motion. Nontender with no deformity. No lesions are appreciated. Cardiovascular: Regular rate and rhythm with a normal S1 and S2. No gallops, murmurs, or rubs. No pulse deficits. Respiratory: Lungs have equal breath sounds bilaterally, clear to auscultation and percussion. No rales, rhonchi or wheezes noted. No increased work of breathing, no retractions or nasal flaring. Abdomen/GI: Soft, non-tender, with normal bowel sounds. No distension or tympany. No guarding or rebound. No evidence of tenderness throughout. Back: No spinal tenderness. No costovertebral tenderness. Full range of motion. Skin: Warm, dry with normal turgor. Normal color with no rashes, no lesions, and no evidence of cellulitis. MS/ Extremity: Pulses equal, no cyanosis. Neurovascular intact. Full, normal range of motion. 16:09 Neuro: Orientation: is normal, Motor: is normal, moves all fours. Vital Signs: 15:16 BP 138 / 86; Pulse 90; Resp 20 S; Temp 97.9(O); Pulse Ox 94% ; Weight 79.38 kg (R); ca1 Height 5 ft. 11 in. (180.34 cm) (R); Pain 0/10; 16:26 BP 145 / 95; Pulse 99; Resp 22 S; Pulse Ox 94% on R/A; ca1 17:30 BP 147 / 89; Pulse 93; Resp 23 S; Temp 98(O); Pulse Ox 95% on R/A; ca1 15:16 Body Mass Index 24.41 (79.38 kg, 180.34 cm) ca1 MDM: 15:19 Patient medically screened. pm1 17:13 Data reviewed: vital signs. pm1 17:14 Counseling: I had a detailed discussion with the patient and/or guardian regarding: the pm1 historical points, exam findings, and any diagnostic results supporting the discharge/admit diagnosis, the need for outpatient follow up, to return to the emergency department if symptoms worsen or persist or if there are any questions or concerns that arise at home. Administered Medications: 15:45 Drug: Albuterol 2.5 mg Route: Inhalation; ca1 15:45 Drug: AtroVENT Aerosol 0.5 mg Route: Inhalation; ca1 15:45 Drug: predniSONE 60 mg Route: PO; ca1 17:49 Follow up: Urine output 420 ml; Response: No adverse reaction ca1 Disposition: 09/15 07:08 Co-signature as Attending Physician, Puma Chi MD I agree with the assessment and kdr plan of care. Disposition: 09/14/18 17:16 Discharged to Home. Impression: Chronic obstructive pulmonary disease, unspecified. - Condition is Stable. - Discharge Instructions: Chronic Obstructive Pulmonary Disease, How to Use an Inhaler, Steps to Quit Smoking. - Prescriptions for Prednisone 20 mg Oral Tablet - take 3 tablet by ORAL route once daily for 5 days; 15 tablet. Albuterol Sulfate 90 mcg/actuation - inhale 1-2 puff by INHALATION route every 4-6 hours; 1 Inhaler. - Medication Reconciliation Form, Thank You Letter, Antibiotic Education, Prescription Opioid Use form. - Follow up: Emergency Department; When: As needed; Reason: Worsening of condition. Follow up: Private Physician; When: 2 - 3 days; Reason: Recheck today's complaints, Continuance of care, Re-evaluation by your physician. - Problem is new. - Symptoms have improved. Signatures: Liane Morataya RN RN aj Rittger, Kevin, MD MD kdr Marinas, Patrick, MANAGER GOLF MANAGER GOLF pm1 Sameera Contreras RN RN ca1 Corrections: (The following items were deleted from the chart) 09/14 17:55 17:16 09/14/2018 17:16 Discharged to Home. Impression: Chronic obstructive pulmonary aj disease, unspecified. Condition is Stable. Forms are Medication Reconciliation Form, Thank You Letter, Antibiotic Education, Prescription Opioid Use. Follow up: Emergency Department; When: As needed; Reason: Worsening of condition. Follow up: Private Physician; When: 2 - 3 days; Reason: Recheck today's complaints, Continuance of care, Re-evaluation by your physician. Problem is new. Symptoms have improved. pm1
[2018-09-14 18:49] VITALS: BP 147/89; TEMP 98; O2SAT 95
== END 2018-09-14 17:55 | disposition home or self-care (01) ==
LOC: ER 15:09
DX: J44.9 Chronic obstructive pulmonary disease, unspecified (principal); I10 Essential (primary) hypertension; F17.210 Nicotine dependence, cigarettes, uncomplicated; Z59.0 Homelessness; Z85.46 Personal history of malignant neoplasm of prostate
CPT/HCPCS: 99285

== ENCOUNTER 2018-09-15 02:00 | Emergency (ER) | payer OTHER ==
--- OUTSIDE RECORDS SUMMARY | 2018-09-15 02:04 | XMS REPORT ---
:1950 [facility] [address] [place] [address] Care Team Providers Name Role Phone Unavailable [...] 1 View 2017-12-22 23:14:17 Patient: JOSTIN BURTON [facility] Date/Time12/22/2017 22:58 CDTReason for ExamCHF (Congestive [...]
--- NOTE | 2018-09-15 02:11 | ER ---
Nurse's Notes [facility] Name: Mark Terrell Age: 67 yrs Sex: Male : 1950 Arrival Date: 09/15/2018 Time: 02:04 Bed 6 Private MD: Diagnosis: Medication non-compliance;Homelessness;Stable CHF;COPD Presentation: 09/15 02:06 Presenting complaint: EMS states: Pt complaining of shortness of breath, EMS reports ea dexter lower wheezing, albuterol treatment x 1 administered, pt O2 sat increased from 92% RA to 100%. Transition of care: patient was not received from another setting of care. Onset of symptoms was September 15, 2018. Risk Assessment: Do you want to hurt yourself or someone else? Patient reports no desire to harm self or others. Initial Sepsis Screen: Does the patient meet any 2 criteria? No. Patient's initial sepsis screen is negative. Does the patient have a suspected source of infection? No. Patient's initial sepsis screen is negative. Care prior to arrival: Medication(s) given: Albuterol Neb x 1. 02:06 Method Of Arrival: EMS: [facility] ea 02:06 Acuity: ARIEL 3 ea Triage Assessment: 02:10 General: Appears in no apparent distress. Behavior is calm, cooperative, appropriate ea for age. Pain: Denies pain. Neuro: Level of Consciousness is awake, alert, obeys commands, Oriented to person, place, time, situation. Cardiovascular: Patient's skin is warm and dry. Respiratory: Reports shortness of breath at rest Breath sounds are diminished bilaterally. Onset: The symptoms/episode began/occurred suddenly, the patient reports symptoms have resolved. GI: No signs and/or symptoms were reported involving the gastrointestinal system. Derm: Skin is pink, warm \T\ dry. Historical: - Allergies: 02:11 Benadryl; ea - Home Meds: 02:11 Lasix Oral [Active]; ea - PMHx: 02:11 Aneurysm; CHF; homeless; Hypertension; Prostate Cancer; COPD; ea - PSHx: 02:11 None; ea - Immunization history:: Adult Immunizations up to date. - Social history:: Smoking status: Patient uses tobacco products, denies chronic smoking, but will smoke occasionally. - Ebola Screening: : No symptoms or risks identified at this time. Screenin:11 Abuse screen: Denies threats or abuse. Nutritional screening: No deficits noted. ea Tuberculosis screening: No symptoms or risk factors identified. Fall Risk None identified. Assessment: 02:12 General: Appears in no apparent distress. Behavior is calm, cooperative, appropriate ea for age. Pain: Denies pain. Neuro: Level of Consciousness is awake, alert, obeys commands, Oriented to person, place, time, situation. Cardiovascular: Patient's skin is warm and dry. Respiratory: Airway is patent Respiratory effort is even, unlabored, Respiratory pattern is regular, symmetrical, Breath sounds are diminished bilaterally. GI: No signs and/or symptoms were reported involving the gastrointestinal system. Derm: Skin is pink, warm \T\ dry. Musculoskeletal: Circulation, motion, and sensation intact. 02:15 Reassessment: Patient and/or family updated on plan of care and expected duration. Pain ea level reassessed. Patient is alert, oriented x 3, equal unlabored respirations, skin warm/dry/pink. Discharge instruction given to patient verbalized the understanding of instruction. Pt left ED ambulatory, reports he would wait in the [facility] for [facility]. Vital Signs: 02:09 BP 134 / 76; Pulse 89; Resp 18; Temp 97.5(O); Pulse Ox 97% on R/A; Weight 79.38 kg; ea Height 5 ft. 11 in. (180.34 cm); 02:09 Body Mass Index 24.41 (79.38 kg, 180.34 cm) ea ED Course: 02:04 Patient arrived in ED. tl2 02:04 Eric Ochoa MD is Attending Physician. ps1 02:09 Triage completed. ea 02:10 Patient has correct armband on for positive identification. Bed in low position. Call ea light in reach. Side rails up X2. 02:12 Arm band placed on right wrist. Patient placed in an exam room, on a stretcher, on ea pulse oximetry. 02:17 No provider procedures requiring assistance completed. Patient did not have IV access ea during this emergency room visit. Administered Medications: No medications were administered Outcome: 02:10 Discharge ordered by . ps1 02:17 Discharged to [facility], pt left ED ambulatory, tolerating well ea 02:17 Condition: stable 02:17 Discharge instructions given to patient, Instructed on discharge instructions, follow up and referral plans. Demonstrated understanding of instructions, follow-up care. 02:20 Patient left the ED. ea Signatures: Nelia May RN RN tl2 Aan Camacho RN RN ea Eric Ochoa MD MD ps1
--- NOTE | 2018-09-15 02:11 | EDPHYS ---
Physician Documentation [facility] Name: Mark Terrell Age: 67 yrs Sex: Male : 1950 Arrival Date: 09/15/2018 Time: 02:04 Bed 6 Private MD: ED Physician Eric Ochoa HPI: 09/15 02:05 This 67 yrs old Male presents to ER via Unassigned with complaints of ps1 Breathing Difficulty. 02:05 patient has unchanged COPD and CHF. Patient was in [place] and PD checked on him and he ps1 c/o shortness of breath. EMS called and gave him AA BRICK TESTER. Patient appears to be in USOH. Has lower extremity edema. Breathing normally. Speaking in full sentences. NAD. Normal VS. . Historical: - Allergies: 02:11 Benadryl; ea - Home Meds: 02:11 Lasix Oral [Active]; ea - PMHx: 02:11 Aneurysm; CHF; homeless; Hypertension; Prostate Cancer; COPD; ea - PSHx: 02:11 None; ea - Immunization history:: Adult Immunizations up to date. - Social history:: Smoking status: Patient uses tobacco products, denies chronic smoking, but will smoke occasionally. - Ebola Screening: : No symptoms or risks identified at this time. ROS: 02:05 Constitutional: Negative for fever, chills, and weight loss, Eyes: Negative for injury, ps1 pain, redness, and discharge, Cardiovascular: Negative for chest pain, palpitations, and edema, Abdomen/GI: Negative for abdominal pain, nausea, vomiting, diarrhea, and constipation, MS/Extremity: Negative for injury and deformity, Neuro: Negative for headache, weakness, numbness, tingling, and seizure. 02:05 Respiratory: Positive for orthopnea, wheezing. 02:05 Skin: Positive for bilat lower extremity edema. Exam: 02:05 Constitutional: This is a well developed, well nourished patient who is awake, alert, ps1 and in no acute distress. Head/Face: Normocephalic, atraumatic. Eyes: Pupils equal round and reactive to light, extra-ocular motions intact. Lids and lashes normal. Conjunctiva and sclera are non-icteric and not injected. Cardiovascular: Regular rate and rhythm. No gallops, murmurs, or rubs. Normal PMI, no JVD. No pulse deficits. Respiratory: Lungs have equal breath sounds bilaterally, clear to auscultation and percussion. No rales, rhonchi or wheezes noted. No increased work of breathing, no retractions or nasal flaring. Abdomen/GI: Soft, non-tender, with normal bowel sounds. No distension or tympany. No guarding or rebound. No evidence of tenderness throughout. MS/ Extremity: Pulses equal, no cyanosis. Neurovascular intact. Full, normal range of motion. 02:05 Skin: bilateral lower extremity edema 2+.. Vital Signs: 02:09 BP 134 / 76; Pulse 89; Resp 18; Temp 97.5(O); Pulse Ox 97% on R/A; Weight 79.38 kg; ea Height 5 ft. 11 in. (180.34 cm); 02:09 Body Mass Index 24.41 (79.38 kg, 180.34 cm) ea MDM: 02:05 Data reviewed: vital signs, nurses notes, and as a result, I will discharge patient. ED ps1 course: Patient is in USOH. Well known to me and ED. He has stable CHF and COPD. NAD. Pt stable for discharge. . 02:10 Patient medically screened. ps1 Administered Medications: No medications were administered Disposition: 09/15/18 02:10 Discharged to Home. Impression: Homelessness, Medication non-compliance, Stable CHF, COPD. - Condition is Stable. - Discharge Instructions: Heart Failure, [id number]. - Medication Reconciliation Form, Thank You Letter, Antibiotic Education, Prescription Opioid Use form. - Follow up: Private Physician; When: As needed; Reason: Recheck today's complaints, Continuance of care, Re-evaluation by your physician. Follow up: Emergency Department; When: As needed; Reason: Trouble breathing, Worsening of condition. Signatures: Ana Camacho RN RN Eric Patterson MD MD ps1 Corrections: (The following items were deleted from the chart) 02:20 02:10 09/15/2018 02:10 Discharged to Home. Impression: HomelessnessMedication ea non-compliance; Stable CHF; COPD. Condition is Stable. Forms are Medication Reconciliation Form, Thank You Letter, Antibiotic Education, Prescription Opioid Use. Follow up: Private Physician; When: As needed; Reason: Recheck today's complaints, Continuance of care, Re-evaluation by your physician. Follow up: Emergency Department; When: As needed; Reason: Trouble breathing, Worsening of condition. ps1
[2018-09-15 02:48] VITALS: BP 134/76; TEMP 97.5; O2SAT 97
== END 2018-09-15 02:20 | disposition home or self-care (01) ==
LOC: ER 02:00
DX: J44.9 Chronic obstructive pulmonary disease, unspecified (principal); Z59.0 Homelessness; Z91.14 Patient's other noncompliance with medication regimen; I11.0 Hypertensive heart disease with heart failure; I50.9 Heart failure, unspecified; C61 Malignant neoplasm of prostate; Z72.0 Tobacco use
CPT/HCPCS: 99283

== ENCOUNTER 2018-09-16 08:41 | Emergency (ER) | payer OTHER ==
--- OUTSIDE RECORDS SUMMARY | 2018-09-16 08:45 | XMS REPORT ---
:1950 [facility] Address [address] [place] [address] Care Team Providers Name Role Phone Unavailable [...] 1 View 2017-12-22 23:14:17 Patient: JOSTIN BURTON [facility] Date/Time12/22/2017 22:58 CDTReason for ExamCHF [...]
[2018-09-16] MEDS ORDERED: FUROSEMIDE 100 MG/10 ML VIAL IV ONE (10:13)
[2018-09-16 10:20] LABS: Absolute Lymphocytes (CBC) 1.6 K/uL (0.7-4.9); Eosinophils % 1.7 % (0-4.4); Lymphocytes % 17.6 % (15.3-44.8); MPV 9.4 fL (7.6-11.3); Monocytes % 17.2 % (3.3-12.3); RBC Red Blood Cell Count 6.15 M/uL (4.33-5.43)
[2018-09-16 10:24] LABS: Protime INR 1.56
[2018-09-16 10:33] LABS: Hematocrit 30.3 % (39.6-49.0)
[2018-09-16 10:42] LABS: Magnesium 1.8 mg/dL (1.8-2.4); Potassium 3.3 mmol/L (3.5-5.1)
[2018-09-16 10:46] LABS: Platelet Estimate ADEQ
[2018-09-16 10:47] LABS: Anisocytosis 1+; Blood Morphology Comment NOTED (NOT SEEN); Hypochromasia 3+; Platelets, Giant PRESENT
--- NOTE | 2018-09-16 11:02 | RAD REPORT ---
EXAM DESCRIPTION: RAD - Chest Single View - 09/16/2018 10:47 am CLINICAL HISTORY: DYSPNEA Chest pain. COMPARISON: Chest Single View dated 09/12/2018; Chest Single View dated 09/06/2018; Chest Single View d ated 09/03/2018; Chest Single View dated 09/02/2018 FINDINGS: Portable technique limits examination quality. Mild interstitial pulmonary edema seen. The heart is moderately enlarged. Trace pleural effusion.Left posterior rib fractures noted. IMPRESSION: Mild CHF.
--- NOTE | 2018-09-16 11:35 | ER ---
Nurse's Notes [facility] Name: Mark Terrell Age: 67 yrs Sex: Male : 1950 Arrival Date: 09/16/2018 Time: 08:49 Bed 17 Private MD: Diagnosis: Chronic obstructive pulmonary disease with (acute) exacerbation;Chronic combined systolic (congestive) and diastolic (congestive) heart failure Presentation: 09/16 09:05 Presenting complaint: Patient states: pain to my L big toe, some bleeding for the past ch couple days. Transition of care: patient was not received from another setting of care. Onset of symptoms was September 14, 2018. Risk Assessment: Do you want to hurt yourself or someone else? Patient reports no desire to harm self or others. Initial Sepsis Screen: Does the patient meet any 2 criteria? No. Patient's initial sepsis screen is negative. Does the patient have a suspected source of infection? No. Patient's initial sepsis screen is negative. Care prior to arrival: None. 09:05 Method Of Arrival: Ambulatory 09:05 Acuity: ARIEL 4 ch 09:43 Acuity: ARIEL 3 iw Triage Assessment: 09:06 General: Appears in no apparent distress. Behavior is cooperative, appropriate for age. ch Pain: Complains of pain in left foot. Historical: - Allergies: 09:06 Benadryl; - Home Meds: 09:54 NON-COMPLIANT [Active]; tw2 - PMHx: 09:06 Aneurysm; CHF; COPD; homeless; Hypertension; Prostate Cancer; ch - Immunization history:: Adult Immunizations up to date. - Social history:: Smoking status: Patient uses tobacco products, smokes one pack cigarettes per day. - Ebola Screening: : Patient negative for fever greater than or equal to 101.5 degrees Fahrenheit, and additional compatible Ebola Virus Disease symptoms Patient denies exposure to infectious person Patient denies travel to an Ebola-affected area in the 21 days before illness onset No symptoms or risks identified at this time. Screenin:43 Abuse screen: Denies threats or abuse. Denies injuries from another. Nutritional aj screening: No deficits noted. Tuberculosis screening: No symptoms or risk factors identified. Fall Risk None identified. Assessment: 09:43 General: Appears in no apparent distress. uncomfortable. Pain: Complains of pain in aj left foot. Neuro: Level of Consciousness is awake, alert, obeys commands, Oriented to person, place, time, situation, Appropriate for age. Cardiovascular: Edema is 4+ to left upper thigh, left lower thigh, left knee, left midcalf, left foot, right upper thigh, right lower thigh, right knee, right midcalf and right foot. Respiratory: Airway is patent Respiratory effort is even, unlabored, Respiratory pattern is symmetrical, tachypnea. Respiratory: Reports shortness of breath Derm: Skin is intact, is healthy with good turgor, Skin is pink, warm \T\ dry. normal. 11:56 Reassessment: Patient appears in no apparent distress at this time. No changes from previously documented assessment. Patient and/or family updated on plan of care and expected duration. Pain level reassessed. Patient is alert, oriented x 3, equal unlabored respirations, skin warm/dry/pink. Patient states symptoms have improved. Vital Signs: 09:06 BP 182 / 74; Pulse 98; Resp 28; Temp 98.4; Pulse Ox 96% on R/A; Weight 79.38 kg; Height 5 ft. 8 in. (172.72 cm); Pain 8/10; 10:09 BP 137 / 101; Pulse 102; Resp 18; Pulse Ox 98% on 2 lpm NC; tw2 10:39 BP 129 / 93; Pulse 100; Resp 23; Pulse Ox 97% on R/A; aj 09:06 Body Mass Index 26.61 (79.38 kg, 172.72 cm) ED Course: 08:49 Patient arrived in ED. as 09:05 Missed attempt(s): 20 gauge in right antecubital area. Bleeding controlled, band aid tw2 applied, catheter tip intact. Missed attempt(s): 22 gauge in right antecubital area. blood collected. Bleeding controlled, band aid applied, catheter tip intact. 09:06 Triage completed. 09:06 Arm band placed on left wrist. Patient placed in waiting room. 09:36 Petar Camargo PA is PHCP. jr8 09:36 Ryan Vasquez MD is Attending Physician. jr8 09:41 Liane Morataya RN is Primary Nurse. aj 09:43 Patient has correct armband on for positive identification. Bed in low position. Side aj rails up X 1. 10:29 Inserted saline lock: 22 gauge in right hand, using aseptic technique. aj 10:47 XRAY Chest (1 view) In Process Unspecified. EDMS 11:56 No provider procedures requiring assistance completed. IV discontinued, intact, aj bleeding controlled, No redness/swelling at site. Pressure dressing applied. Administered Medications: 10:13 Drug: Lasix 80 mg Route: IVP; Site: right hand; aj 11:57 Follow up: Urine output 900 ml; Response: No adverse reaction aj 11:33 CANCELLED (Physician Discretion): Xopenex (3) 1.25 mg Inhalation once jr8 11:33 CANCELLED (Physician Discretion): SOLU-Medrol 125 mg IVP once jr8 11:35 Drug: SOLU-Medrol 125 mg Route: IVP; Site: right hand; aj 11:58 Follow up: Response: No adverse reaction aj 11:35 Drug: Xopenex (3) 1.25 mg Route: Inhalation; aj Output: 11:57 Urine: 900ml; Total: 900ml. aj Outcome: 11:33 Discharge ordered by . jr 11:56 Discharged to home via wheelchair. aj 11:56 Condition: good 11:56 Discharge instructions given to patient, Instructed on discharge instructions, follow up and referral plans. Demonstrated understanding of instructions, follow-up care. 11:58 Patient left the ED. aj Signatures: Dispatcher [employer] EDMS Arti Gao, RN Liane Hardy ch, RN RN aj Martinez, Amelia as Williams, Irene, RN Petar Yin PA PA jr8 Ana M Wagner RN RN tw2
--- NOTE | 2018-09-16 11:35 | EDPHYS ---
Physician Documentation [facility] Name: Mark Terrell Age: 67 yrs Sex: Male : 1950 Arrival Date: 09/16/2018 Time: 08:49 Bed 17 Private MD: ED Physician Ryan Vasquez HPI: 09/16 11:06 This 67 yrs old Male presents to ER via Ambulatory with complaints of Toe jr8 Pain. 11:06 Patient presents to ED with toe pain and shortness of breath. History of COPD and CHF. jr8 Non compliant . Onset: The symptoms/episode began/occurred chronic. Severity of symptoms: At their worst the symptoms were moderate in the emergency department the symptoms are unchanged. The patient has experienced similar episodes in the past, chronically. The patient has been recently seen by a physician:. Historical: - Allergies: 09:06 Benadryl; ch - Home Meds: 09:54 NON-COMPLIANT [Active]; tw2 - PMHx: 09:06 Aneurysm; CHF; COPD; homeless; Hypertension; Prostate Cancer; ch - Immunization history:: Adult Immunizations up to date. - Social history:: Smoking status: Patient uses tobacco products, smokes one pack cigarettes per day. - Ebola Screening: : Patient negative for fever greater than or equal to 101.5 degrees Fahrenheit, and additional compatible Ebola Virus Disease symptoms Patient denies exposure to infectious person Patient denies travel to an Ebola-affected area in the 21 days before illness onset No symptoms or risks identified at this time. ROS: 11:06 Eyes: Negative for injury, pain, redness, and discharge, ENT: Negative for injury, jr8 pain, and discharge, Neck: Negative for injury, pain, and swelling, Cardiovascular: Negative for chest pain, palpitations, and edema, Abdomen/GI: Negative for abdominal pain, nausea, vomiting, diarrhea, and constipation, Back: Negative for injury and pain, Skin: Negative for injury, rash, and discoloration, Neuro: Negative for headache, weakness, numbness, tingling, and seizure. 11:06 Respiratory: Positive for shortness of breath. 11:06 MS/extremity: Positive for pain, of the right great toe. Exam: 11:06 Eyes: Pupils equal round and reactive to light, extra-ocular motions intact. Lids and jr8 lashes normal. Conjunctiva and sclera are non-icteric and not injected. Cornea within normal limits. Periorbital areas with no swelling, redness, or edema. ENT: Nares patent. No nasal discharge, no septal abnormalities noted. Tympanic membranes are normal and external auditory canals are clear. Oropharynx with no redness, swelling, or masses, exudates, or evidence of obstruction, uvula midline. Mucous membranes moist. Neck: Trachea midline, no thyromegaly or masses palpated, and no cervical lymphadenopathy. Supple, full range of motion without nuchal rigidity, or vertebral point tenderness. No Meningismus. Cardiovascular: Regular rate and rhythm with a normal S1 and S2. No gallops, murmurs, or rubs. Normal PMI, no JVD. No pulse deficits. Abdomen/GI: Soft, non-tender, with normal bowel sounds. No distension or tympany. No guarding or rebound. No evidence of tenderness throughout. Back: No spinal tenderness. No costovertebral tenderness. Full range of motion. Skin: Warm, dry with normal turgor. Normal color with no rashes, no lesions, and no evidence of cellulitis. Neuro: Awake and alert, GCS 15, oriented to person, place, time, and situation. Cranial nerves II-XII grossly intact. Motor strength 5/5 in all extremities. Sensory grossly intact. Cerebellar exam normal. Normal gait. 11:06 Respiratory: mild respiratory distress is noted, Respirations: tachypnea, that is mild, Breath sounds: wheezing: expiratory that is mild. 11:06 Musculoskeletal/extremity: Extremities: grossly normal except: noted in the right great toe: Patient has pain to toe with water blister present. No erythema, discharge, or cellulitis, ROM: intact in all extremities, Circulation is intact in all extremities. Sensation intact. Vital Signs: 09:06 BP 182 / 74; Pulse 98; Resp 28; Temp 98.4; Pulse Ox 96% on R/A; Weight 79.38 kg; Height ch 5 ft. 8 in. (172.72 cm); Pain 8/10; 10:09 BP 137 / 101; Pulse 102; Resp 18; Pulse Ox 98% on 2 lpm NC; tw2 10:39 BP 129 / 93; Pulse 100; Resp 23; Pulse Ox 97% on R/A; aj 09:06 Body Mass Index 26.61 (79.38 kg, 172.72 cm) ch MDM: 09:36 Patient medically screened. 11:32 Data reviewed: vital signs, nurses notes, lab test result(s), EKG, radiologic studies, jr8 plain films. Data interpreted: Pulse oximetry: on room air is 96 %. Interpretation: normal. 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 Response to treatment: the patient's symptoms have markedly improved after treatment. 09/16 09:56 Order name: Basic Metabolic Panel; Complete Time: 11:05 09/16 09:56 Order name: CBC with Diff; Complete Time: 11:09/16 09:56 Order name: Magnesium; Complete Time: 11:09/16 09:56 Order name: NT PRO-BNP; Complete Time: 11:09/16 09:56 Order name: PT-INR; Complete Time: 11:09/16 10:31 Order name: Manual Differential; Complete Time: 11:05 [facility] 09/16 09:56 Order name: XRAY Chest (1 view); Complete Time: 11:05 09/16 09:56 Order name: EKG; Complete Time: 09:57 09/16 09:56 Order name: Cardiac monitoring; Complete Time: 09:56 09/16 09:56 Order name: EKG - Nurse/Tech; Complete Time: 10:58 09/16 09:56 Order name: IV Saline Lock; Complete Time: 10:09 09/16 09:56 Order name: Labs collected and sent; Complete Time: 10:09 09/16 09:56 Order name: O2 Per Protocol; Complete Time: 09:56 09/16 09:56 Order name: O2 Sat Monitoring; Complete Time: 09:56 Administered Medications: 10:13 Drug: Lasix 80 mg Route: IVP; Site: right hand; aj 11:57 Follow up: Urine output 900 ml; Response: No adverse reaction aj 11:33 CANCELLED (Physician Discretion): Xopenex (3) 1.25 mg Inhalation once jr8 11:33 CANCELLED (Physician Discretion): SOLU-Medrol 125 mg IVP once jr8 11:35 Drug: SOLU-Medrol 125 mg Route: IVP; Site: right hand; 11:58 Follow up: Response: No adverse reaction 11:35 Drug: Xopenex (3) 1.25 mg Route: Inhalation; Disposition: 15:57 Co-signature as Attending Physician, Ryan Vasquez MD. rn Disposition: 09/16/18 11:33 Discharged to Home. Impression: Chronic obstructive pulmonary disease with (acute) exacerbation, Chronic combined systolic (congestive) and diastolic (congestive) heart failure. - Condition is Stable. - Discharge Instructions: Chronic Obstructive Pulmonary Disease, Heart Failure. - Medication Reconciliation Form, Thank You Letter, Antibiotic Education, Prescription Opioid Use form. - Follow up: Private Physician; When: 2 - 3 days; Reason: Recheck today's complaints, Continuance of care, Re-evaluation by your physician. - Problem is new. - Symptoms have improved. Signatures: Dispatcher [employer] EDMS Arti Gao RN Liane Hardy ch, RN RN aj Nieto, Roman, MD MD rn Roszak, Josh, PA PA jr8 Ana M Wagner RN RN tw2 Corrections: (The following items were deleted from the chart) 11:33 11:33 Xopenex (3) 1.25 mg Inhalation once ordered. jr8 jr8 11:33 11:33 SOLU-Medrol 125 mg IVP once ordered. [facility] jr8 11:58 11:33 09/16/2018 11:33 Discharged to Home. Impression: Chronic obstructive pulmonary aj disease with (acute) exacerbation; Chronic combined systolic (congestive) and diastolic (congestive) heart failure. Condition is Stable. Forms are Medication Reconciliation Form, Thank You Letter, Antibiotic Education, Prescription Opioid Use. Follow up: Private Physician; When: 2 - 3 days; Reason: Recheck today's complaints, Continuance of care, Re-evaluation by your physician. Problem is new. Symptoms have improved. jr8
[2018-09-16] MEDS ORDERED: LEVALBUTEROL 1.25 MG/3 ML NEB ONE (11:44)
[2018-09-16] MEDS ORDERED: METHYLPREDNISOLONE 125 MG INJ ONE (11:44)
[2018-09-16 12:20] VITALS: TEMP 98.4
[2018-09-16 12:23] VITALS: BP 129/93; O2SAT 97
--- NOTE | 2018-09-17 07:22 | EKG ---
Test Date: 2018-09-16 Test Time: 10:19:12 Blood Bank Order Control Clerk: AYSHA MEASUREMENT RESULTS: Intervals: Rate: 99 LA: 136 QRSD: 120 QT: 402 QTc: 515 [place]: P: 77 LA: 136 QRS: 90 T: -21 INTERPRETIVE STATEMENTS: Sinus rhythm with sinus arrhythmia with frequent premature ventricular complexes Rightward axis Nonspecific intraventricular conduction delay T wave abnormality, consider lateral ischemia Abnormal ECG Compared to ECG 09/12/2018 13:23:47 Possible ischemia now present T-wave abnormality still present Electronically Signed On 09-17-18 07:20:46 CDT by Cyrus Porter
== END 2018-09-16 11:58 | disposition home or self-care (01) ==
LOC: ER 08:41
DX: J44.1 Chronic obstructive pulmonary disease with (acute) exacerbation (principal); I11.0 Hypertensive heart disease with heart failure; I50.42 Chronic combined systolic (congestive) and diastolic (congestive) heart failure; M79.676 Pain in unspecified toe(s); C61 Malignant neoplasm of prostate; F17.210 Nicotine dependence, cigarettes, uncomplicated
CPT/HCPCS: 93005; 85025; 80048; 36415; 83735; 85610; 83880; 71045; 96375; 96374; 99284; J2930

== ENCOUNTER 2018-09-18 07:20 | Emergency (ER) | payer OTHER ==
--- OUTSIDE RECORDS SUMMARY | 2018-09-18 07:22 | XMS REPORT ---
:1950 [facility] [address] [place] [address] Care Team Providers Name Role Phone Unavailable [...] 1 View 2017-12-22 23:14:17 Patient: JOSTIN BURTON [facility] Date/Time12/22/2017 22:58 CDTReason for ExamCHF [...]
[2018-09-18] MEDS ORDERED: METHYLPREDNISOLONE 125 MG INJ ONE (08:07)
[2018-09-18] MEDS ORDERED: FUROSEMIDE 40 MG/4 ML VIAL ONE (08:08)
--- NOTE | 2018-09-18 08:59 | ER ---
Nurse's Notes [facility] Name: Mark Terrell Age: 67 yrs Sex: Male : 1950 Arrival Date: 09/18/2018 Time: 07:27 Bed 8 Private MD: Diagnosis: Chronic obstructive pulmonary disease, unspecified;Patient's noncompliance with medical treatment and regimen;Congestive heart failure Presentation: 09/18 07:28 Presenting complaint: EMS states: Called for c/o SOB, SPo2 84% RA, hx COPD, other VSS, ph neb tx administered, improved 100% on neb. Transition of care: patient was not received from another setting of care. Onset of symptoms was September 18, 2018. Risk Assessment: Do you want to hurt yourself or someone else? Patient reports no desire to harm self or others. Initial Sepsis Screen: Does the patient meet any 2 criteria? No. Patient's initial sepsis screen is negative. Does the patient have a suspected source of infection? No. Patient's initial sepsis screen is negative. Care prior to arrival: None. 07:28 Method Of Arrival: EMS: [facility] 07:28 Acuity: ARIEL 3 ph Historical: - Allergies: 07:34 Benadryl; ph - Home Meds: 07:34 NON-COMPLIANT [Active]; Furosemide Oral [Active]; ph - PMHx: 07:34 Aneurysm; CHF; COPD; homeless; Hypertension; Prostate Cancer; ph - Immunization history:: Adult Immunizations unknown. - Social history:: Smoking status: Patient uses tobacco products, " 4 cigarettes a day". - Ebola Screening: : No symptoms or risks identified at this time. Screenin:36 Abuse screen: Denies threats or abuse. Denies injuries from another. Nutritional ph screening: No deficits noted. Tuberculosis screening: No symptoms or risk factors identified. Fall Risk None identified. Assessment: 07:39 General: Appears in no apparent distress. comfortable, unkempt, Behavior is calm, ph cooperative, appropriate for age, Denies fever. Pain: Denies pain. Neuro: Level of Consciousness is awake, alert, obeys commands, Oriented to person, place, time, situation. Cardiovascular: Reports shortness of breath, Denies chest pain, nausea, palpitations, vomiting, Capillary refill < 3 seconds in bilateral fingers Patient's skin is warm and dry. Edema is 2+ to left midcalf, left ankle, right midcalf and right ankle pitting to left midcalf and right midcalf Rhythm is regular. Respiratory: Reports shortness of breath at rest Airway is patent Respiratory effort is even, unlabored, Respiratory pattern is tachypnea Breath sounds are clear bilaterally. Derm: Skin is intact, is healthy with good turgor, Skin is pink, warm \\T\\ dry. Musculoskeletal: Circulation, motion, and sensation intact. Range of motion: intact in all extremities. 08:30 Reassessment: Patient appears in no apparent distress at this time. Patient and/or ph family updated on plan of care and expected duration. Pain level reassessed. Patient is alert, oriented x 3, equal unlabored respirations, skin warm/dry/pink. 09:24 Reassessment: Patient appears in no apparent distress at this time. Patient and/or ph family updated on plan of care and expected duration. Pain level reassessed. Patient is alert, oriented x 3, equal unlabored respirations, skin warm/dry/pink. Vital Signs: 07:31 BP 152 / 98; Pulse 59; Resp 24; Temp 97.6; Pulse Ox 91% on R/A; Weight 79.38 kg; Height ph 5 ft. 11 in. (180.34 cm); Pain 0/10; 08:30 BP 141 / 89; Pulse 54; Resp 16; Pulse Ox 93% on R/A; ph 09:25 BP 132 / 87; Pulse 51; Resp 18; Temp 97.5; Pulse Ox 94% on R/A; ph 07:31 Body Mass Index 24.41 (79.38 kg, 180.34 cm) ph ED Course: 07:27 Patient arrived in ED. ph 07:28 Rj Arnold NP is PHCP. pm1 07:28 Mike Yoo MD is Attending Physician. pm1 07:30 Triage completed. ph 07:36 Arm band placed on. ph 07:38 Patient has correct armband on for positive identification. Placed in gown. Bed in low ph position. Call light in reach. Side rails up X 1. Pulse ox on. NIBP on. Door closed. Noise minimized. Warm blanket given. Pillow given. 07:45 Inserted saline lock: 22 gauge in right forearm, using aseptic technique. ph 07:47 Sharon Luis RN is Primary Nurse. ph 09:26 No provider procedures requiring assistance completed. IV discontinued, intact, ph bleeding controlled, No redness/swelling at site. Administered Medications: 08:00 Drug: Lasix 40 mg Route: IVP; Site: right forearm; ph 09:26 Follow up: Urine output 1300 ml; Response: No adverse reaction ph 08:00 Drug: SOLU-Medrol 125 mg Route: IVP; Site: right forearm; ph 09:25 Follow up: Response: No adverse reaction ph Output: 09:26 Urine: 1300ml; Total: 1300ml. ph Outcome: 08:58 Discharge ordered by MD. pm1 09:26 Discharged to home via wheelchair. ph 09:26 Condition: improved 09:26 Discharge instructions given to patient, Instructed on discharge instructions, follow up and referral plans. Demonstrated understanding of instructions, follow-up care. 09:27 Patient left the ED. ph Signatures: Sharon Luis RN RN ph Rj Arnold, FADI TECHNICIAN INVENTORY SPECIALIST pm1
--- NOTE | 2018-09-18 08:59 | EDPHYS ---
Physician Documentation [facility] Name: Mark Terrell Age: 67 yrs Sex: Male : 1950 Arrival Date: 09/18/2018 Time: 07:27 Bed 8 Private MD: ED Physician Mike Yoo HPI: 09/18 07:55 This 67 yrs old Male presents to ER via EMS with complaints of Shortness Of pm1 Breath. 07:55 The patient has shortness of breath at rest. Onset: The symptoms/episode began/occurred pm1 this morning. Duration: The symptoms are continuous. The patient's shortness of breath is aggravated by nothing, is alleviated by nebulizer treatment. Associated signs and symptoms: Pertinent negatives: chest pain, non-productive cough, productive cough, fever, nausea, vomiting. Severity of symptoms: in the emergency department the symptoms have improved Markedly with breathing treatment in route. The patient has experienced similar episodes in the past, multiple times. The patient has been recently seen at the [facility] Emergency Department, this week, for similar complaints. Historical: - Allergies: 07:34 Benadryl; ph - Home Meds: 07:34 NON-COMPLIANT [Active]; Furosemide Oral [Active]; ph - PMHx: 07:34 Aneurysm; CHF; COPD; homeless; Hypertension; Prostate Cancer; ph - Immunization history:: Adult Immunizations unknown. - Social history:: Smoking status: Patient uses tobacco products, " 4 cigarettes a day". - Ebola Screening: : No symptoms or risks identified at this time. ROS: 07:55 Constitutional: Negative for fever, chills, and weight loss, Eyes: Negative for injury, pm1 pain, redness, and discharge, ENT: Negative for injury, pain, and discharge, Neck: Negative for injury, pain, and swelling, Cardiovascular: Negative for chest pain, palpitations, and edema. 07:55 Abdomen/GI: Negative for abdominal pain, nausea, vomiting, diarrhea, and constipation, Back: Negative for injury and pain, : Negative for injury, bleeding, discharge, and swelling, MS/Extremity: Negative for injury and deformity, Skin: Negative for injury, rash, and discoloration, Neuro: Negative for headache, weakness, numbness, tingling, and seizure. 07:55 Respiratory: Positive for shortness of breath, Negative for sputum production, wheezing. Exam: 07:55 Constitutional: This is a well developed, well nourished patient who is awake, alert, pm1 and in no acute distress. Head/Face: Normocephalic, atraumatic. Neck: Trachea midline, no thyromegaly or masses palpated, and no cervical lymphadenopathy. Supple, full range of motion without nuchal rigidity, or vertebral point tenderness. No Meningismus. Chest/axilla: Normal chest wall appearance and motion. Nontender with no deformity. No lesions are appreciated. Respiratory: Lungs have equal breath sounds bilaterally, clear to auscultation and percussion. No rales, rhonchi or wheezes noted. No increased work of breathing, no retractions or nasal flaring. Abdomen/GI: Soft, non-tender, with normal bowel sounds. No distension or tympany. No guarding or rebound. No evidence of tenderness throughout. Back: No spinal tenderness. No costovertebral tenderness. Full range of motion. Skin: Warm, dry with normal turgor. Normal color with no rashes, no lesions, and no evidence of cellulitis. MS/ Extremity: Pulses equal, no cyanosis. Neurovascular intact. Full, normal range of motion. 07:55 Cardiovascular: Rate: normal, Rhythm: regular, Pulses: no pulse deficits are appreciated, Edema: pedal edema, that is mild. 07:55 Neuro: Orientation: is normal, Motor: is normal. Vital Signs: 07:31 BP 152 / 98; Pulse 59; Resp 24; Temp 97.6; Pulse Ox 91% on R/A; Weight 79.38 kg; Height ph 5 ft. 11 in. (180.34 cm); Pain 0/10; 08:30 BP 141 / 89; Pulse 54; Resp 16; Pulse Ox 93% on R/A; ph 09:25 BP 132 / 87; Pulse 51; Resp 18; Temp 97.5; Pulse Ox 94% on R/A; ph 07:31 Body Mass Index 24.41 (79.38 kg, 180.34 cm) ph MDM: 07:40 Patient medically screened. pm1 08:55 Data reviewed: vital signs. Counseling: I had a detailed discussion with the patient pm1 and/or guardian regarding: the historical points, exam findings, and any diagnostic results supporting the discharge/admit diagnosis, the need for outpatient follow up, to return to the emergency department if symptoms worsen or persist or if there are any questions or concerns that arise at home. 09/18 07:46 Order name: IV Saline Lock; Complete Time: 08:00 pm1 Administered Medications: 08:00 Drug: Lasix 40 mg Route: IVP; Site: right forearm; ph 09:26 Follow up: Urine output 1300 ml; Response: No adverse reaction ph 08:00 Drug: SOLU-Medrol 125 mg Route: IVP; Site: right forearm; ph 09:25 Follow up: Response: No adverse reaction ph Disposition: 09/18/18 08:58 Discharged to Home. Impression: Chronic obstructive pulmonary disease, unspecified, Patient's noncompliance with medical treatment and regimen, Congestive heart failure. - Condition is Stable. - Medication Reconciliation Form, Thank You Letter, Antibiotic Education, Prescription Opioid Use form. - Follow up: Emergency Department; When: As needed; Reason: Worsening of condition. Follow up: Private Physician; When: 2 - 3 days; Reason: Recheck today's complaints, Continuance of care, Re-evaluation by your physician. - Problem is new. - Symptoms have improved. Addendum: 09/19/2018 17:57 Co-signature as Attending Physician, Mike Yoo MD. g s Signatures: Sharon Luis RN RN ph Rj Arnold, FADI DONOR RECRUITMENT MANAGER pm1 Mike Yoo MD MD Corrections: (The following items were deleted from the chart) 09/18 09:27 08:58 09/18/2018 08:58 Discharged to Home. Impression: Chronic obstructive pulmonary ph disease, unspecified; Patient's noncompliance with medical treatment and regimen; Congestive heart failure. Condition is Stable. Forms are Medication Reconciliation Form, Thank You Letter, Antibiotic Education, Prescription Opioid Use. Follow up: Emergency Department; When: As needed; Reason: Worsening of condition. Follow up: Private Physician; When: 2 - 3 days; Reason: Recheck today's complaints, Continuance of care, Re-evaluation by your physician. Problem is new. Symptoms have improved. pm1
[2018-09-18 09:38] VITALS: BP 132/87; TEMP 97.5; O2SAT 94
== END 2018-09-18 09:27 | disposition home or self-care (01) ==
LOC: ER 07:20
DX: J44.9 Chronic obstructive pulmonary disease, unspecified (principal); Z91.14 Patient's other noncompliance with medication regimen; I50.9 Heart failure, unspecified; Z72.0 Tobacco use; I10 Essential (primary) hypertension; Z85.46 Personal history of malignant neoplasm of prostate; Z88.8 Allergy status to other drugs, medicaments and biological substances; Z59.0 Homelessness
CPT/HCPCS: 96375; 96374; 99284; J1940; J2930

== ENCOUNTER 2018-09-19 21:43 | Emergency (ER) | payer OTHER ==
--- OUTSIDE RECORDS SUMMARY | 2018-09-19 21:45 | XMS REPORT ---
:1950 [facility] Address [address] [place] [address] Care Team Providers Name Role Phone Unavailable [...]
[2018-09-19] MEDS ORDERED: ALBUTEROL 2.5 MG/3 ML NEB SOL ONE (22:24)
[2018-09-19] MEDS ORDERED: METHYLPREDNISOLONE 125 MG INJ ONE (22:24)
[2018-09-19] MEDS ORDERED: IPRATROPIUM BROM 0.5MG/2.5ML ONE (22:24)
[2018-09-19 22:27] LABS: Absolute Lymphocytes (CBC) 2.6 K/uL (0.7-4.9); Basophils % 0.5 % (0-1.3); Hematocrit 34.2 % (39.6-49.0); Lymphocytes % 20.3 % (15.3-44.8); MPV 9.6 fL (7.6-11.3); Monocytes % 11.3 % (3.3-12.3); RBC Red Blood Cell Count 6.02 M/uL (4.33-5.43)
[2018-09-19 22:42] LABS: Albumin 3.1 g/dL (3.4-5.0); Bilirubin Direct 0.5 mg/dL (0-0.2); CKMB Creatine Kinase MB 2.2 ng/mL (0.3-3.6); Magnesium 2.1 mg/dL (1.8-2.4); Potassium 3.1 mmol/L (3.5-5.1); Protein, Total 6.5 g/dL (6.4-8.2); Troponin (Emerg Dept Use Only) 0.07 ng/mL (0.0-0.045)
[2018-09-19 23:53] LABS: Protime INR 1.35
[2018-09-19 23:56] LABS: Blood Morphology Comment NOTED (NOT SEEN); Hypochromasia 3+
[2018-09-19 23:57] LABS: Anisocytosis 2+; Ovalocytes 2+; Target Cells 1+
[2018-09-19 23:58] LABS: Platelet Estimate ADEQ; Urine White Blood Cell Casts OK
--- NOTE | 2018-09-20 01:30 | ER ---
Nurse's Notes [facility] Name: Mark Terrell Age: 67 yrs Sex: Male : 1950 Arrival Date: 09/19/2018 Time: 21:52 Bed 8 Private MD: Diagnosis: Chronic obstructive pulmonary disease, unspecified;Chronic combined systolic (congestive) and diastolic (congestive) heart failure Presentation: 09/19 21:40 Presenting complaint: EMS states: "Shortness of breath since an hour ago. The patient cc3 is homeless we just picked him up near the [employer]". Transition of care: patient was not received from another setting of care. Onset of symptoms was September 19, 2018. Risk Assessment: Do you want to hurt yourself or someone else? Patient reports no desire to harm self or others. Initial Sepsis Screen: Does the patient meet any 2 criteria? RR > 20 per min. HR > 90 bpm. Yes Does the patient have a suspected source of infection? Yes: Other: known case of COPD. Care prior to arrival: None. 21:40 Method Of Arrival: EMS: [facility] cc3 21:40 Acuity: ARIEL 3 cc3 Triage Assessment: 21:40 General: Appears distressed, uncomfortable, Behavior is cooperative. Pain: Denies pain. cc3 EENT: No signs and/or symptoms were reported regarding the EENT system. Neuro: Level of Consciousness is awake, alert, obeys commands, Oriented to person, place, time, situation, Appropriate for age. Cardiovascular: Denies chest pain, Capillary refill < 3 seconds Patient's skin is warm and dry. Respiratory: Reports shortness of breath at rest on exertion since an hour ago Onset: The symptoms/episode began/occurred suddenly, the patient has moderate shortness of breath. GI: Abdomen is round. : No signs and/or symptoms were reported regarding the genitourinary system. Derm: Skin is fragile, has skin tears on bilateral upper arms. Musculoskeletal: Circulation, motion, and sensation intact. Range of motion: intact in all extremities. Historical: - Allergies: 21:40 Benadryl; cc3 - Home Meds: 21:40 Furosemide Oral [Active]; NON-COMPLIANT [Active]; cc3 - PMHx: 21:40 Aneurysm; CHF; COPD; homeless; Hypertension; Prostate Cancer; cc3 - Immunization history:: Adult Immunizations not up to date. - Social history:: Smoking status: Patient uses tobacco products, smokes one-half pack cigarettes per day. - Ebola Screening: : No symptoms or risks identified at this time. Screenin:40 Abuse screen: Denies threats or abuse. Denies injuries from another. Nutritional cc3 screening: No deficits noted. Tuberculosis screening: No symptoms or risk factors identified. Fall Risk Ambulatory Aid- None/Bed Rest/Nurse Assist (0 pts). Gait- Normal/Bed Rest/Wheelchair (0 pts) Mental Status- Oriented to own ability (0 pts). Assessment: 21:40 Cardiovascular: Rhythm is sinus tachycardia. Respiratory: Airway is patent Respiratory cc3 effort is even, unlabored, Respiratory pattern is tachypnea Breath sounds with crackles bilaterally. Breath sounds are diminished bilaterally. 22:18 Reassessment: Patient appears in no apparent distress at this time. Patient and/or cc3 family updated on plan of care and expected duration. Pain level reassessed. Patient is alert, oriented x 3, equal unlabored respirations, skin warm/dry/pink. 23:25 Reassessment: Patient appears in no apparent distress at this time. Patient and/or cc3 family updated on plan of care and expected duration. Pain level reassessed. Patient is alert, oriented x 3, equal unlabored respirations, skin warm/dry/pink. 09/20 00:24 Reassessment: Patient appears in no apparent distress at this time. Patient and/or cc3 family updated on plan of care and expected duration. Pain level reassessed. Patient is alert, oriented x 3, equal unlabored respirations, skin warm/dry/pink. 01:55 Reassessment: Patient appears in no apparent distress at this time. Patient and/or cc3 family updated on plan of care and expected duration. Pain level reassessed. Patient is alert, oriented x 3, equal unlabored respirations, skin warm/dry/pink. Dr. Kerr discharged the patient home with prescriptions given. IV cannula removed. Patient left ER vitally stable. No valuables left in ER. Patient denies pain at this time. Patient states feeling better. Patient states symptoms have improved. Vital Signs: 09/19 21:40 BP 137 / 108; Pulse 107; Resp 25 S; Temp 97.5(O); Pulse Ox 97% on R/A; Weight 79.38 kg cc3 (R); Height 5 ft. 11 in. (180.34 cm) (R); 22:00 BP 135 / 85; Pulse 106; Resp 27 S; Pulse Ox 99% on R/A; cc3 23:30 BP 147 / 97; Pulse 114; Resp 27 S; Pulse Ox 97% on R/A; cc3 09/20 00:30 BP 159 / 119; Pulse 109; Resp 25 S; Pulse Ox 93% on 1 lpm NC; cc3 01:30 BP 166 / 132; Pulse 112; Resp 20 S; Pulse Ox 94% on 1 lpm NC; cc3 09/19 21:40 Body Mass Index 24.41 (79.38 kg, 180.34 cm) cc3 ED Course: 09/19 21:40 Arm band placed on right wrist. EKG completed in triage. Results shown to MD. cc3 21:40 Patient has correct armband on for positive identification. Placed in gown. Bed in low cc3 position. Call light in reach. Side rails up X2. hall monitor on. Pulse ox on. NIBP on. 21:52 Patient arrived in ED. am2 21:56 Blair Kerr MD is Attending Physician. tw4 21:57 Maria De Jesus Mckee is Primary Nurse. cc3 22:00 Inserted saline lock: 20 gauge in right antecubital area, using aseptic technique. cc3 Blood collected. 22:04 Triage completed. cc3 22:08 XRAY CXR (1 view) In Process Unspecified. EDMS 09/20 01:55 No provider procedures requiring assistance completed. IV discontinued, intact, cc3 bleeding controlled, No redness/swelling at site. Pressure dressing applied. Administered Medications: 09/19 22:10 Drug: SOLU-Medrol 125 mg Route: IVP; Site: right antecubital; cc3 22:30 Follow up: Response: No adverse reaction; Marked relief of symptoms cc3 22:10 Drug: Albuterol 2.5 mg Route: Inhalation; cc3 22:10 Drug: AtroVENT Aerosol 0.5 mg Route: Inhalation; cc3 22:30 Follow up: Response: No adverse reaction; Marked relief of symptoms cc3 22:35 Drug: Albuterol 2.5 mg Route: Inhalation; cc3 23:00 Drug: Albuterol 2.5 mg Route: Inhalation; cc3 09/20 01:00 Drug: Lasix 40 mg Route: IVP; Site: right antecubital; cc3 01:15 Follow up: Response: No adverse reaction cc3 Outcome: 01:30 Discharge ordered by . david 01:55 Discharged to home via wheelchair[facility] 01:[facility] Condition: stable 01:55 Discharge instructions given to patient, Instructed on discharge instructions, follow up and referral plans. medication usage, Demonstrated understanding of instructions, follow-up care, medications, Prescriptions given X 3. 02:09 Patient left the ED. cc3 Signatures: Dispatcher [employer] Liane Hanks am2 Blair Kerr MD MD twMaria De Jesus Salvador cc3
[2018-09-20] MEDS ORDERED: FUROSEMIDE 40 MG/4 ML VIAL ONE (01:31)
--- NOTE | 2018-09-20 01:31 | EDPHYS ---
Physician Documentation [facility] Name: Mark Terrell Age: 67 yrs Sex: Male : 1950 Arrival Date: 09/19/2018 Time: 21:52 Bed 8 Private MD: ED Physician Blair Kerr HPI: 09/20 05:55 This 67 yrs old Male presents to ER via EMS with complaints of Breathing tw4 Difficulty. 05:55 The patient has shortness of breath at rest. Onset: The symptoms/episode began/occurred tw4 today. Duration: The symptoms are continuous, and are unchanged since they started. The patient's shortness of breath has no apparent modifying factors. Associated signs and symptoms: The patient has no apparent associated signs or symptoms. 05:58 Severity of symptoms: At their worst the symptoms were mild in the emergency department tw4 the symptoms are unchanged. The patient has experienced similar episodes in the past, several times, multiple times, chronically. Historical: - Allergies: 09/19 21:40 Benadryl; cc3 - Home Meds: 21:40 Furosemide Oral [Active]; NON-COMPLIANT [Active]; cc3 - PMHx: 21:40 Aneurysm; CHF; COPD; homeless; Hypertension; Prostate Cancer; cc3 - Immunization history:: Adult Immunizations not up to date. - Social history:: Smoking status: Patient uses tobacco products, smokes one-half pack cigarettes per day. - Ebola Screening: : No symptoms or risks identified at this time. ROS: 09/20 05:55 Constitutional: Negative for fever, chills, and weight loss, Eyes: Negative for injury, tw4 pain, redness, and discharge, Abdomen/GI: Negative for abdominal pain, nausea, vomiting, diarrhea, and constipation. Cardiovascular: Negative for chest pain, palpitations, and edema, Back: Negative for injury and pain, MS/Extremity: Negative for injury and deformity, Skin: Negative for injury, rash, and discoloration, Neuro: Negative for headache, weakness, numbness, tingling, and seizure. Respiratory: Positive for dyspnea on exertion, shortness of breath, on exertion. Negative for cough. Exam: 05:55 Constitutional: This is a well developed, well nourished patient who is awake, alert, tw4 and in no acute distress. Head/Face: Normocephalic, atraumatic. Cardiovascular: Regular rate and rhythm with a normal S1 and S2. No gallops, murmurs, or rubs. Normal PMI, no JVD. No pulse deficits. Respiratory: Lungs have equal breath sounds bilaterally, clear to auscultation and percussion. No rales, rhonchi or wheezes noted. No increased work of breathing, no retractions or nasal flaring. Abdomen/GI: Soft, non-tender, with normal bowel sounds. No distension or tympany. No guarding or rebound. No evidence of tenderness throughout. Back: No spinal tenderness. No costovertebral tenderness. Full range of motion. MS/ Extremity: Pulses equal, no cyanosis. Neurovascular intact. Full, normal range of motion. Neuro: Awake and alert, GCS 15, oriented to person, place, time, and situation. Cranial nerves II-XII grossly intact. Motor strength 5/5 in all extremities. Sensory grossly intact. Cerebellar exam normal. Normal gait. Vital Signs: 09/19 21:40 BP 137 / 108; Pulse 107; Resp 25 S; Temp 97.5(O); Pulse Ox 97% on R/A; Weight 79.38 kg cc3 (R); Height 5 ft. 11 in. (180.34 cm) (R); 22:00 BP 135 / 85; Pulse 106; Resp 27 S; Pulse Ox 99% on R/A; cc3 23:30 BP 147 / 97; Pulse 114; Resp 27 S; Pulse Ox 97% on R/A; cc3 09/20 00:30 BP 159 / 119; Pulse 109; Resp 25 S; Pulse Ox 93% on 1 lpm NC; cc3 01:30 BP 166 / 132; Pulse 112; Resp 20 S; Pulse Ox 94% on 1 lpm NC; cc3 09/19 21:40 Body Mass Index 24.41 (79.38 kg, 180.34 cm) cc3 MDM: 09/19 21:56 Patient medically screened. tw4 09/20 05:55 Differential diagnosis: Anemia. Data reviewed: vital signs, nurses notes. Counseling: I tw4 had a detailed discussion with the patient and/or guardian regarding: the historical points, exam findings, and any diagnostic results supporting the discharge/admit diagnosis. Special discussion: I discussed with the patient/guardian in detail that at this point there is no indication for admission to the hospital. It is understood, however, that if the symptoms persist or worsen the patient needs to return immediately for re-evaluation. 09/19 21:58 Order name: Blood Culture Adult (2) 09/19 21:58 Order name: BMP; Complete Time: 00:26 09/20 00:26 Interpretation: Normal except: K 3.1; GLUC 209; BUN 24; CRE 1.44; GFR 49. 09/19 21:58 Order name: CBC with Diff 09/19 21:58 Order name: Ckmb; Complete Time: 23:28 09/19 23:28 Interpretation: Within normal limits: CKMB 2.2. 09/19 21:58 Order name: CPK; Complete Time: 00:26 09/20 00:26 Interpretation: Normal except: CPK 37. 09/19 21:58 Order name: D-Dimer 09/19 21:58 Order name: Hepatic Function; Complete Time: 00:26 09/20 00:26 Interpretation: Normal except: ALK 122; BILID 0.5; ALB 3.1; A/G 0.9. 09/19 21:58 Order name: Lipase; Complete Time: 23:28 09/19 23:29 Interpretation: Within normal limits: LIP 80. 09/19 21:58 Order name: Magnesium; Complete Time: 23:29 09/19 23:29 Interpretation: Within normal limits: MG 2.1. 09/19 21:58 Order name: NT PRO-BNP; Complete Time: 00:27 09/20 00:27 Interpretation: Normal except: NT PRO-BNP 86622. 09/19 21:58 Order name: PT-INR 09/19 21:58 Order name: Ptt, Activated 09/19 22:21 Order name: Troponin (Emerg Dept Use Only); Complete Time: 23:28 EDMS 09/19 23:28 Interpretation: Abnormal: TROPED 0.07. 09/19 21:58 Order name: XRAY CXR (1 view) 09/19 21:58 Order name: EKG; Complete Time: 22:05 09/19 21:58 Order name: Cardiac monitoring; Complete Time: 23:19 tw4 09/19 21:58 Order name: EKG - Nurse/Tech; Complete Time: 23:19 4 09/19 21:58 Order name: IV Saline Lock; Complete Time: 23:19 4 09/19 21:58 Order name: Labs collected and sent; Complete Time: 23:19 4 09/19 21:58 Order name: O2 Per Protocol; Complete Time: 23:19 09/19 21:58 Order name: O2 Sat Monitoring; Complete Time: 23:19 09/19 22:31 Order name: CBC Smear Scan EDMS EC:58 Rate is 106 beats/min. Rhythm is regular, Sinus tachycardia with Occasional PVCs. QRS tw4 [place] is Normal. CO interval is normal. QRS interval is normal. QT interval is normal. T waves are Inverted in lead V1. T waves are Flattened in leads V5, V6. No ST changes noted. Clinical impression: Abnormal EKG without significant change. Interpreted by me. Reviewed by me. Administered Medications: 09/19 22:10 Drug: SOLU-Medrol 125 mg Route: IVP; Site: right antecubital; cc3 22:30 Follow up: Response: No adverse reaction; Marked relief of symptoms cc3 22:10 Drug: Albuterol 2.5 mg Route: Inhalation; cc3 22:10 Drug: AtroVENT Aerosol 0.5 mg Route: Inhalation; cc3 22:30 Follow up: Response: No adverse reaction; Marked relief of symptoms cc3 22:35 Drug: Albuterol 2.5 mg Route: Inhalation; cc3 23:00 Drug: Albuterol 2.5 mg Route: Inhalation; cc3 09/20 01:00 Drug: Lasix 40 mg Route: IVP; Site: right antecubital; cc3 01:15 Follow up: Response: No adverse reaction cc3 Disposition: 09/20/18 01:30 Discharged to Home. Impression: Chronic obstructive pulmonary disease, unspecified, Chronic combined systolic (congestive) and diastolic (congestive) heart failure. - Condition is Stable. - Discharge Instructions: Heart Failure, Chronic Obstructive Pulmonary Disease Exacerbation. - Prescriptions for ProAir HFA 90 mcg/actuation Inhalation HFA aerosol inhaler - inhale 1 puff by INHALATION route every 4 hours; 1 Cartridge. Lasix 40 mg Oral Tablet - take 1 tablet by ORAL route once daily for 30 days; 30 tablet. Medrol (Adin) 4 mg Oral Tablets, Dose Pack - take 1 tablet by ORAL route as directed - follow package instructions; 1 packet. - Medication Reconciliation Form, Thank You Letter, Antibiotic Education, Prescription Opioid Use form. - Follow up: Private Physician; When: Upon discharge from the Emergency Department; Reason: If symptoms return, Recheck today's complaints, Continuance of care. - Problem is new. - Symptoms have improved. Signatures: Dispatcher [employer] [facility] Blair Kerr MD MD tw4 Maria De Jesus Mckee cc3 Corrections: (The following items were deleted from the chart) 09/19 22:19 22:05 TROPONIN (EMERG DEPT USE ONLY)+[id number].LAB.BRZ ordered. [facility] 09/20 02:09 01:30 09/20/2018 01:30 Discharged to Home. Impression: Chronic obstructive pulmonary cc3 disease, unspecified; Chronic combined systolic (congestive) and diastolic (congestive) heart failure. Condition is Stable. Forms are Medication Reconciliation Form, Thank You Letter, Antibiotic Education, Prescription Opioid Use. Follow up: Private Physician; When: Upon discharge from the Emergency Department; Reason: If symptoms return, Recheck today's complaints, Continuance of care. Problem is new. Symptoms have improved. tw4 05:58 05:55 The patient has not experienced similar symptoms in the past, tw4 tw4
[2018-09-20 03:33] VITALS: BP 166/132; O2SAT 94
--- NOTE | 2018-09-20 09:11 | EKG ---
Test Date: 2018-09-19 Test Time: 21:54:22 Paramedic: SHILPI MEASUREMENT RESULTS: Intervals: Rate: 105 DE: 140 QRSD: 112 QT: 382 QTc: 504 [place]: P: 85 DE: 140 QRS: 105 T: -15 INTERPRETIVE STATEMENTS: Sinus tachycardia with occasional premature ventricular complexes Rightward axis Minimal voltage criteria for LVH, may be normal variant Cannot rule out Inferior infarct, age undetermined Abnormal ECG Compared to ECG 09/16/2018 10:19:12 Left ventricular hypertrophy now present Myocardial infarct finding now present Sinus rhythm no longer present Sinus arrhythmia no longer present Intraventricular conduction delay no longer present T-wave abnormality no longer present Possible ischemia no longer present Electronically Signed On 09-20-18 09:10:38 CDT by Cyrus Porter
--- NOTE | 2018-09-20 12:42 | RAD REPORT ---
EXAM DESCRIPTION: RAD - Chest Single View - 09/19/2018 10:13 pm CLINICAL HISTORY: SOB Chest pain. COMPARISON: Chest Single View dated 09/16/2018; Chest Single View dated 09/12/2018; Chest Single View dated 09/06/2018; Chest Single View dated 09/03/2018 FINDINGS: Portable technique limits examination quality. Mild interstitial pulmonary edema persists. Trace bilateral pleural fluid. The heart is moderately en larged. Several chronic left posterior rib fracture seen. IMPRESSION: Mild CHF.
--- NOTE | 2018-09-21 10:23 | EKG ---
Test Date: 2018-09-19 Test Time: 21:55:06 Ct Technologist: SHILPI MEASUREMENT RESULTS: Intervals: Rate: 106 IA: 128 QRSD: 114 QT: 386 QTc: 512 [place]: P: 83 IA: 128 QRS: 104 T: -3 INTERPRETIVE STATEMENTS: Sinus tachycardia with premature supraventricular complexes and with frequent and consecutive premature ventricular complexes Rightward axis Minimal voltage criteria for LVH, may be normal variant Cannot rule out Inferior infarct, age undetermined Abnormal ECG Compared to ECG 09/19/2018 21:54:22 Atrial premature complex(es) now present Myocardial infarct finding still present Electronically Signed On 09-21-18 10:23:47 CDT by Jitendra Willams
== END 2018-09-20 02:09 | disposition home or self-care (01) ==
LOC: ER 21:43
DX: J44.9 Chronic obstructive pulmonary disease, unspecified (principal); I11.0 Hypertensive heart disease with heart failure; I50.42 Chronic combined systolic (congestive) and diastolic (congestive) heart failure; C61 Malignant neoplasm of prostate; F17.210 Nicotine dependence, cigarettes, uncomplicated
CPT/HCPCS: 93005 ×2; 87040 ×2; 85025; 80048; 36415; 83735; 82550; 85610; 85379; 80076; 85730; 84484; 82553; 83690; 83880; 71045; 96375; 96374; 99285; J1940; J2930

== ENCOUNTER 2018-09-22 11:17 | Emergency (ER) | payer OTHER ==
--- OUTSIDE RECORDS SUMMARY | 2018-09-22 11:19 | XMS REPORT ---
:1950 [facility] Address [address] [place] [address] Care Team Providers Name Role Phone Unavailable [...] 1 View 2017-12-22 23:14:17 Patient: JOSTIN BURTON [facility] Date/Time12/22/2017 22:58 CDTReason for ExamCHF [...]
--- NOTE | 2018-09-22 12:55 | EDPHYS ---
Physician Documentation [facility] Name: Mark Terrell Age: 67 yrs Sex: Male : 1950 Arrival Date: 09/22/2018 Time: 11:21 Bed 19 Private MD: ED Physician Puma Chi HPI: 09/22 12:57 This 67 yrs old Male presents to ER via EMS with complaints of Shortness Of snw Breath. 12:57 The patient has shortness of breath at rest, and the patient has a history of COPD, snw CHF. Onset: The symptoms/episode began/occurred and became persistent. Duration: The symptoms are continuous. Associated signs and symptoms: Pertinent positives: non-productive cough, edema. Severity of symptoms: At their worst the symptoms were mild moderate. The patient has experienced similar episodes in the past, chronically, and the symptoms today are exactly the same. The patient has been recently seen at the [facility] Emergency Department, for similar complaints pt is homeless, well known to this facility, cannot afford medications. referred to social media marketing specialist numerous times. Takes medications in ED and quickly improves regularly. Historical: - Allergies: 11:28 Benadryl; ss - PMHx: 11:28 Aneurysm; CHF; COPD; Hypertension; Prostate Cancer; ss - Immunization history:: Adult Immunizations unknown. - Social history:: Smoking status: Patient uses tobacco products, 2 cigarettes/ day. - Ebola Screening: : Patient denies exposure to infectious person Patient denies travel to an Ebola-affected area in the 21 days before illness onset. ROS: 12:57 Constitutional: Negative for fever, chills, and weight loss, Eyes: Negative for injury, snw pain, redness, and discharge, ENT: Negative for injury, pain, and discharge, Neck: Negative for injury, pain, and swelling, Cardiovascular: Negative for chest pain, palpitations, and edema, Abdomen/GI: Negative for abdominal pain, nausea, vomiting, diarrhea, and constipation, Back: Negative for injury and pain, : Negative for injury, bleeding, discharge, and swelling, MS/Extremity: Negative for injury and deformity, Skin: Negative for injury, rash, and discoloration, Neuro: Negative for headache, weakness, numbness, tingling, and seizure. 12:57 Respiratory: Positive for cough, shortness of breath, at rest. Exam: 12:54 Eyes: Pupils equal round and reactive to light, extra-ocular motions intact. Lids and snw lashes normal. Conjunctiva and sclera are non-icteric and not injected. Cornea within normal limits. Periorbital areas with no swelling, redness, or edema. ENT: Nares patent. No nasal discharge, no septal abnormalities noted. Tympanic membranes are normal and external auditory canals are clear. Oropharynx with no redness, swelling, or masses, exudates, or evidence of obstruction, uvula midline. Mucous membranes moist. Neck: Trachea midline, no thyromegaly or masses palpated, and no cervical lymphadenopathy. Supple, full range of motion without nuchal rigidity, or vertebral point tenderness. No Meningismus. Chest/axilla: Normal chest wall appearance and motion. Nontender with no deformity. No lesions are appreciated. 12:54 Abdomen/GI: Soft, non-tender, with normal bowel sounds. No distension or tympany. No guarding or rebound. No evidence of tenderness throughout. Back: No spinal tenderness. No costovertebral tenderness. Full range of motion. MS/ Extremity: Pulses equal, no cyanosis. Neurovascular intact. Full, normal range of motion. Neuro: Awake and alert, GCS 15, oriented to person, place, time, and situation. Cranial nerves II-XII grossly intact. Motor strength 5/5 in all extremities. Sensory grossly intact. Cerebellar exam normal. Normal gait. Psych: Awake, alert, with orientation to person, place and time. Behavior, mood, and affect are within normal limits. 12:54 Constitutional: The patient appears awake, frail, unkempt. 12:54 Head/face: Noted is covered in facial hair. 12:54 Cardiovascular: Rate: tachycardic, Rhythm: regular, Pulses: no pulse deficits are appreciated, Edema: 2+ edema to level of left lower thigh, left ankle, left foot, right lower thigh, right ankle and right foot. 12:54 Respiratory: the patient does not display signs of respiratory distress, Respirations: prolonged exhalation, that is moderate, shallow respirations, tachypnea, Breath sounds: wheezing: expiratory is heard diffusely. 12:54 Skin: Appearance: leathered, unkempt. Vital Signs: 11:26 BP 132 / 98; Pulse 96; Resp 18; Temp 98.6(TE); Pulse Ox 97% on R/A; Weight 79.38 kg; ss Height 5 ft. 11 in. (180.34 cm); 11:26 Body Mass Index 24.41 (79.38 kg, 180.34 cm) ss MDM: 12:37 Patient medically screened. snw 12:57 Data reviewed: vital signs, nurses notes. Counseling: I had a detailed discussion with snw the patient and/or guardian regarding: the presence of at least one elevated blood pressure reading (>120/80) during this emergency department visit, the need for outpatient follow up, to return to the emergency department if symptoms worsen or persist or if there are any questions or concerns that arise at home. Special discussion: Based on the history and exam findings, there is no indication for further emergent testing or inpatient evaluation. I discussed with the patient/guardian the need to see the primary care provider for further evaluation of the symptoms. Administered Medications: 13:30 Drug: predniSONE 40 mg Route: PO; ae4 17:00 Follow up: Response: Medication administered at discharge. ae4 13:30 Drug: LaSIX 40 mg Route: PO; ae4 16:59 Follow up: Response: Medication administered at discharge. ae4 13:30 Drug: Albuterol - atroVENT (3:1) (2.5 mg - 0.5 mg) 3 ml Route: Nebulizer; ae4 16:59 Follow up: Response: Medication administered at discharge. ae4 Disposition: 16:59 Co-signature as Attending Physician, Puma Chi MD I agree with the assessment and kdr plan of care. Disposition: 09/22/18 12:54 Discharged to Home. Impression: Chronic obstructive pulmonary disease, unspecified, Patient's intentional underdosing of medication regimen due to financial hardship. - Condition is Stable. - Discharge Instructions: Chronic Obstructive Pulmonary Disease, Heart Failure. - Prescriptions for Lasix 40 mg Oral Tablet - take 1 tablet by ORAL route once daily for 30 days; 30 tablet. prednisone 5 mg Oral tablet - take 1 tablet by ORAL route once daily; 20 tablet. - Medication Reconciliation Form, Thank You Letter, Antibiotic Education, Prescription Opioid Use form. - Follow up: Private Physician; When: 1 week; Reason: Recheck today's complaints, Continuance of care, Re-evaluation by your physician. Follow up: Emergency Department; When: As needed; Reason: Worsening of condition. Signatures: Puma Chi MD MD [facility] Deanne Dutta, POLLY-C SHIP CEILER-Tayler Sawyer, LASHAY RN ss Cristobal Dyer RN RN ae4 Corrections: (The following items were deleted from the chart) 14:42 12:54 09/22/2018 12:54 Discharged to Home. Impression: Chronic obstructive pulmonary ae4 disease, unspecified; Patient's intentional underdosing of medication regimen due to financial hardship. Condition is Stable. Discharge Instructions: Chronic Obstructive Pulmonary Disease, Heart Failure. Prescriptions for Lasix 40 mg Oral Tablet - take 1 tablet by ORAL route once daily for 30 days; 30 tablet, prednisone 5 mg Oral tablet - take 1 tablet by ORAL route once daily; 20 tablet. and Forms are Medication Reconciliation Form, Thank You Letter, Antibiotic Education, Prescription Opioid Use. Follow up: Private Physician; When: 1 week; Reason: Recheck today's complaints, Continuance of care, Re-evaluation by your physician. Follow up: Emergency Department; When: As needed; Reason: Worsening of condition. snw
--- NOTE | 2018-09-22 12:55 | ER ---
Nurse's Notes [facility] Name: Mark Terrell Age: 67 yrs Sex: Male : 1950 Arrival Date: 09/22/2018 Time: 11:21 Bed 19 Private MD: Diagnosis: Chronic obstructive pulmonary disease, unspecified;Patient's intentional underdosing of medication regimen due to financial hardship Presentation: 09/22 11:27 Presenting complaint: Patient states: Shortness of breath x "a couple years". Pt has ss been unable to fill his prescriptions. Transition of care: patient was not received from another setting of care. Onset of symptoms is unknown. Risk Assessment: Do you want to hurt yourself or someone else? Patient reports no desire to harm self or others. Initial Sepsis Screen: Does the patient meet any 2 criteria? No. Patient's initial sepsis screen is negative. Does the patient have a suspected source of infection? No. Patient's initial sepsis screen is negative. Care prior to arrival: None. 11:27 Method Of Arrival: EMS: [facility] 11:27 Acuity: ARIEL 3 ss Triage Assessment: 13:54 General: Appears in no apparent distress. Respiratory: Reports shortness of breath on ae4 exertion Onset: The symptoms/episode began/occurred gradually, the patient has mild shortness of breath. Respiratory: Airway is patent. Historical: - Allergies: 11:28 Benadryl; ss - PMHx: 11:28 Aneurysm; CHF; COPD; Hypertension; Prostate Cancer; ss - Immunization history:: Adult Immunizations unknown. - Social history:: Smoking status: Patient uses tobacco products, 2 cigarettes/ day. - Ebola Screening: : Patient denies exposure to infectious person Patient denies travel to an Ebola-affected area in the 21 days before illness onset. Screenin:53 Abuse screen: Denies threats or abuse. Nutritional screening: patient states "I live [place] and don't get to shower as much as I want to" patient also states meals are infrequent. . Tuberculosis screening: No symptoms or risk factors identified. Fall Risk None identified. Assessment: 13:48 General: Appears in no apparent distress. uncomfortable, unkempt, Patient smells of ae4 urine. . Behavior is calm, cooperative. Pain: Denies pain. Neuro: Level of Consciousness is awake, alert, obeys commands, Oriented to person, place, situation. Cardiovascular: Heart tones S1 S2 present Rhythm is regular. Respiratory: Airway is patent Respiratory effort is even, unlabored, Breath sounds are clear bilaterally. GI: No signs and/or symptoms were reported involving the gastrointestinal system. : No signs and/or symptoms were reported regarding the genitourinary system. EENT: Poor dentition, poor hygiene.. Derm: Skin is patient has dirt on skin, and tanned. 14:00 Reassessment: patient requests a snack and something to drink. ae4 14:31 Reassessment: Patient is requesting a bus pass. Charge nurse notified, awaiting aryan ae4 pass from [employer]. Vital Signs: 11:26 BP 132 / 98; Pulse 96; Resp 18; Temp 98.6(TE); Pulse Ox 97% on R/A; Weight 79.38 kg; ss Height 5 ft. 11 in. (180.34 cm); 11:26 Body Mass Index 24.41 (79.38 kg, 180.34 cm) ED Course: 11:21 Patient arrived in ED. as 11:26 Arm band placed on right wrist. ss 11:28 Triage completed. ss 12:35 Deanne Dutta FNP-C [facility]. snw 12:35 Puma Chi MD is Attending Physician. snw 13:05 Cristobal Dyer, LASHAY is Primary Nurse. ae4 13:52 Side rails up X 1. Pulse ox on. NIBP on. Warm blanket given. Pillow given. ae4 14:42 No provider procedures requiring assistance completed. Patient did not have IV access ae4 during this emergency room visit. Administered Medications: 13:30 Drug: predniSONE 40 mg Route: PO; ae4 17:00 Follow up: Response: Medication administered at discharge. ae4 13:30 Drug: LaSIX 40 mg Route: PO; ae4 16:59 Follow up: Response: Medication administered at discharge. ae4 13:30 Drug: Albuterol - atroVENT (3:1) (2.5 mg - 0.5 mg) 3 ml Route: Nebulizer; ae4 16:59 Follow up: Response: Medication administered at discharge. ae4 Outcome: 12:54 Discharge ordered by . snw 14:42 Discharged to home ambulatory. ae4 14:42 Condition: stable 14:42 Discharge instructions given to patient, Instructed on discharge instructions, follow up and referral plans. medication usage, Demonstrated understanding of instructions, Prescriptions given X 2. 14:42 Patient left the ED. ae4 Signatures: Deanne Dutta, MUSIC WORKER-C MUSIC WORKER-Csnw Shaylee Allison Shelby, RN RN ss Cristobal Dyer RN RN ae4 Corrections: (The following items were deleted from the chart) 11:32 11:26 BP 132 / 98; Pulse 96bpm; Resp 18bpm; Pulse Ox 9% RA; Temp 98.6F Temporal; 79.38 ss kg; Height 5 ft. 11 in.; BMI: 24.4; ss
[2018-09-22] MEDS ORDERED: ALBUTEROL 2.5 MG/3 ML NEB SOL ONE (13:55)
[2018-09-22] MEDS ORDERED: IPRATROPIUM BROM 0.5MG/2.5ML ONE (13:55)
[2018-09-22] MEDS ORDERED: FUROSEMIDE 40 MG TABLET ONE (13:56)
[2018-09-22] MEDS ORDERED: predniSONE 20 MG TAB ONE (13:56)
[2018-09-22 15:03] VITALS: BP 132/98; TEMP 98.6; O2SAT 97
== END 2018-09-22 14:42 | disposition home or self-care (01) ==
LOC: ER 11:17
DX: J44.9 Chronic obstructive pulmonary disease, unspecified (principal); Z91.120 Patient's intentional underdosing of medication regimen due to financial hardship; I11.0 Hypertensive heart disease with heart failure; I50.9 Heart failure, unspecified; C61 Malignant neoplasm of prostate
CPT/HCPCS: 94640; 99284; J7512

== ENCOUNTER 2018-09-25 21:50 | Emergency (ER) | payer OTHER ==
--- OUTSIDE RECORDS SUMMARY | 2018-09-25 21:53 | XMS REPORT ---
:1950 [facility] Address [address] [place] [address] Care Team Providers Name Role Phone Unavailable [...]
[2018-09-25] MEDS ORDERED: ALBUTEROL 2.5 MG/3 ML NEB SOL ONE (22:46)
[2018-09-25] MEDS ORDERED: FUROSEMIDE 40 MG TABLET ONE (22:46)
[2018-09-25] MEDS ORDERED: IPRATROPIUM BROM 0.5MG/2.5ML ONE (22:46)
[2018-09-25] MEDS ORDERED: predniSONE 20 MG TAB ONE (22:47)
[2018-09-25 23:19] LABS: Protime INR 1.67
[2018-09-25 23:24] LABS: Absolute Lymphocytes (CBC) 2.6 K/uL (0.7-4.9); Basophils % 0.6 % (0-1.3); Hematocrit 31.9 % (39.6-49.0); Lymphocytes % 22.1 % (15.3-44.8); MPV 10.6 fL (7.6-11.3); RBC Red Blood Cell Count 5.74 M/uL (4.33-5.43)
[2018-09-26 00:14] LABS: Blood Morphology Comment NOTED (NOT SEEN); Hypochromasia 3+; Urine White Blood Cell Casts OK
[2018-09-26 00:15] LABS: Platelet Estimate ADEQ
[2018-09-26 00:26] LABS: ALT/SGPT 19 U/L (12-78); AST/SGOT 19 U/L (15-37); Albumin 3.2 g/dL (3.4-5.0); Alkaline Phosphatase 106 U/L (45-117); BUN Blood Urea Nitrogen 18 mg/dL (7-18); Bicarbonate 28 mmol/L (21-32); Bilirubin Direct 0.6 mg/dL (0-0.2); Bilirubin Total 1.6 mg/dL (0.2-1.0); Glucose Level 145 mg/dL (74-106); Potassium 3.1 mmol/L (3.5-5.1); Protein, Total 6.2 g/dL (6.4-8.2); Sodium Level 140 mmol/L (136-145)
[2018-09-26 01:00] LABS: Barbiturates NEGATIVE (NEGATIVE); Benzodiazepines NEGATIVE (NEGATIVE); Cocaine NEGATIVE (NEGATIVE); METHAMPHETAM NEGATIVE (NEGATIVE); Methadone NEGATIVE (NEGATIVE); Opiates NEGATIVE (NEGATIVE); Phencyclidine NEGATIVE (NEGATIVE); THC Cannibis NEGATIVE (NEGATIVE)
[2018-09-26] MEDS ORDERED: POTASSIUM 25 MEQ EFFERV TAB ONE (01:17)
[2018-09-26 01:29] LABS: Urine Blood NEGATIVE (NEG); Urine Glucose NEGATIVE (NEG); Urine Protein 3+ (NEG); Urine Specific Gravity 1.025 (1.005-1.030); Urine pH 5.5 (5.0-7.0)
--- NOTE | 2018-09-26 03:45 | EDPHYS ---
Physician Documentation [facility] Name: Mark Terrell Age: 67 yrs Sex: Male : 1950 Arrival Date: 09/25/2018 Time: 21:56 Bed 20 Private MD: ED Physician Ryan Vasquez HPI: 09/25 22:35 This 67 yrs old Male presents to ER via EMS with complaints of Shortness Of pm1 Breath, Suicidal Ideation. 22:35 The patient has shortness of breath at rest. Onset: The symptoms/episode began/occurred pm1 today. Duration: The symptoms are continuous. The patient's shortness of breath is aggravated by not taking prescription all his medications as directed, is alleviated by Patient currently has inhaler and lasix. Associated signs and symptoms: Pertinent negatives: chest pain, non-productive cough, productive cough, fever. The patient has experienced similar episodes in the past, multiple times, chronically. The patient has been recently seen at the [facility] Emergency Department, last week, for similar complaints. Patient reports that he has been feeling suicidal for the past three years. Says that he is tired of being homeless and wants to hang himself with a rope. Historical: - Allergies: 21:55 Benadryl; rr5 - Home Meds: 21:55 Furosemide Oral [Active]; NON-COMPLIANT [Active]; ProAir HFA inhalation inhalation rr5 [Active]; - PMHx: 21:55 Aneurysm; CHF; COPD; homeless; Hypertension; Prostate Cancer; rr5 - PSHx: 21:55 aneurysm repair; rr5 - Immunization history:: Adult Immunizations up to date. - Social history:: Smoking status: Patient uses tobacco products, 2-3 cigarettes a day. - Ebola Screening: : Patient negative for fever greater than or equal to 101.5 degrees Fahrenheit, and additional compatible Ebola Virus Disease symptoms Patient denies exposure to infectious person Patient denies travel to an Ebola-affected area in the 21 days before illness onset. ROS: 22:35 Constitutional: Negative for fever, chills, and weight loss, Eyes: Negative for injury, pm1 pain, redness, and discharge, ENT: Negative for injury, pain, and discharge, Neck: Negative for injury, pain, and swelling, Cardiovascular: Negative for chest pain, palpitations, and edema, Abdomen/GI: Negative for abdominal pain, nausea, vomiting, diarrhea, and constipation. 22:35 Back: Negative for injury and pain, : Negative for injury, bleeding, discharge, and swelling, MS/Extremity: Negative for injury and deformity, Skin: Negative for injury, rash, and discoloration, Neuro: Negative for headache, weakness, numbness, tingling, and seizure. 22:35 Respiratory: Positive for shortness of breath, Negative for cough. 22:35 Psych: Positive for suicidal ideation, Negative for drug dependence, alcohol pm1 dependence, auditory hallucinations, visual hallucinations, homicidal ideation. Exam: 22:35 Constitutional: This is a well developed, well nourished patient who is awake, alert, pm1 and in no acute distress. Head/Face: Normocephalic, atraumatic. Eyes: Pupils equal round and reactive to light, extra-ocular motions intact. Lids and lashes normal. Conjunctiva and sclera are non-icteric and not injected. Cornea within normal limits. Periorbital areas with no swelling, redness, or edema. ENT: Nares patent. No nasal discharge, no septal abnormalities noted. Tympanic membranes are normal and external auditory canals are clear. Oropharynx with no redness, swelling, or masses, exudates, or evidence of obstruction, uvula midline. Mucous membranes moist. Neck: Trachea midline, no thyromegaly or masses palpated, and no cervical lymphadenopathy. Supple, full range of motion without nuchal rigidity, or vertebral point tenderness. No Meningismus. Chest/axilla: Normal chest wall appearance and motion. Nontender with no deformity. No lesions are appreciated. Cardiovascular: Regular rate and rhythm with a normal S1 and S2. No gallops, murmurs, or rubs. Normal PMI, no JVD. No pulse deficits. 22:35 Abdomen/GI: Soft, non-tender, with normal bowel sounds. No distension or tympany. No guarding or rebound. No evidence of tenderness throughout. Back: No spinal tenderness. No costovertebral tenderness. Full range of motion. Skin: Warm, dry with normal turgor. Normal color with no rashes, no lesions, and no evidence of cellulitis. MS/ Extremity: Pulses equal, no cyanosis. Neurovascular intact. Full, normal range of motion. 22:35 Respiratory: the patient does not display signs of respiratory distress, Breath sounds: are clear throughout. 22:35 Neuro: Orientation: is normal, Motor: is normal, moves all fours, Sensation: is normal, no obvious gross deficits. 22:35 Psych: Behavior/mood is pleasant, cooperative, Affect is calm, Oriented to person, place, time, Judgement / Insight is normal. Vital Signs: 21:55 BP 142 / 100; Pulse 99; Resp 26; Temp 97.6; Pulse Ox 97% on R/A; Weight 79.38 kg; rr5 Height 5 ft. 11 in. (180.34 cm); Pain 0/10; 23:00 BP 159 / 87; Pulse 104; Resp 29; Pulse Ox 99% on R/A; rr5 23:58 BP 170 / 101; Pulse 103; Resp 24; Pulse Ox 96% on R/A; jb5 09/26 00:38 BP 163 / 104; Pulse 106; Resp 35; Pulse Ox 95% on R/A; jb5 01:00 BP 157 / 97; Pulse 104; Resp 22; Pulse Ox 100% on 4 lpm NC; jb5 01:43 BP 144 / 95; Pulse 106; Resp 40; Pulse Ox 100% on 4 lpm NC; jb5 01:54 BP 144 / 95; Pulse 104; Resp 19; Pulse Ox 100% on 4 lpm NC; jb5 02:00 Pulse Ox 100% on 2 lpm NC; rr5 02:55 BP 150 / 89; Pulse 99; Resp 34; Pulse Ox 97% on 2 lpm NC; jb5 04:00 BP 146 / 72; Pulse 90; Resp 25; Temp 97.8; Pulse Ox 98% on R/A; rr5 09/25 21:55 Body Mass Index 24.41 (79.38 kg, 180.34 cm) rr5 MDM: 09/25 22:16 Patient medically screened. pm1 09/26 02:27 Data reviewed: vital signs. Data interpreted: Pulse oximetry: on room air is 100 %. pm1 Interpretation: normal. 02:27 ED course: [facility] Screener present to evaluate patient. pm1 03:38 Counseling: I had a detailed discussion with the patient and/or guardian regarding: the pm1 historical points, exam findings, and any diagnostic results supporting the discharge/admit diagnosis, lab results, the need for outpatient follow up, to return to the emergency department if symptoms worsen or persist or if there are any questions or concerns that arise at home. 03:38 ED course: Sheila [place] impression is that patient can be discharged home. pm1 When he pressed the patient for seriousness of suicidal ideation, Mr Terrell stated that he was not serious about his thoughts and started to flirt with the senior nuclear medicine technologist. His main issue is budgeting his monthly allowance. 09/25 22:27 Order name: Acetaminophen pm09/25 22:27 Order name: Basic Metabolic Panel pm09/25 22: Order name: CBC with Diff; Complete Time: 00:31 pm09/25 22:27 Order name: ETOH Level; Complete Time: 00: pm09/25 22: Order name: Hepatic Function; Complete Time: 00:55 pm1 09/25 22:27 Order name: PT-INR; Complete Time: 00:31 pm09/25 22:27 Order name: Ptt, Activated; Complete Time: 00:31 pm09/25 22:27 Order name: Salicylate; Complete Time: 00:31 pm1 09/25 22:27 Order name: Urine Drug Screen; Complete Time: 01:36 pm1 09/25 22:28 Order name: Acetaminophen Level; Complete Time: 00:55 EDMS 09/25 22:28 Order name: Basic Metabolic Panel; Complete Time: 00:55 EDMS 09/25 23:31 Order name: CBC Smear Scan; Complete Time: 00:31 EDMS 09/26 00:30 Order name: Urine Dipstick--Ancillary (enter results) 09/25 22:27 Order name: EKG; Complete Time: 22:28 pm09/25 22:27 Order name: EKG - Nurse/Tech; Complete Time: 23:20 pm09/25 22:27 Order name: IV Saline Lock; Complete Time: 22:55 pm1 09/25 22:27 Order name: Labs collected and sent; Complete Time: 22:55 pm1 09/25 22:27 Order name: Urine Dipstick-Ancillary (obtain specimen); Complete Time: 00:37 pm1 Administered Medications: 09/25 22:30 Drug: Albuterol - atroVENT (3:1) (2.5 mg - 0.5 mg) 3 ml Route: Nebulizer; rr5 23:30 Follow up: Response: No adverse reaction rr5 22:32 Drug: predniSONE 60 mg Route: PO; rr5 23:30 Follow up: Response: No adverse reaction rr5 22:32 Drug: LaSIX 40 mg Route: PO; rr5 23:30 Follow up: Response: No adverse reaction rr5 09/26 01:10 Drug: Potassium Effervescent Tablet 50 mEq Route: PO; rr5 02:10 Follow up: Response: No adverse reaction rr5 Disposition: 04:18 Co-signature as Attending Physician, Ryan Vasquez MD. rn Disposition: 09/26/18 03:43 Discharged to Home. Impression: Chronic obstructive pulmonary disease, unspecified, Homelessness. - Condition is Stable. - Discharge Instructions: Chronic Obstructive Pulmonary Disease, How to Use an Inhaler. - Prescriptions for Medrol (Adin) 4 mg Oral Tablets, Dose Pack - take 1 tablet by ORAL route as directed - follow package instructions; 1 packet. - Medication Reconciliation Form, Thank You Letter, Antibiotic Education, Prescription Opioid Use form. - Follow up: Emergency Department; When: As needed; Reason: Worsening of condition. Follow up: Private Physician; When: 2 - 3 days; Reason: Recheck today's complaints, Continuance of care, Re-evaluation by your physician. - Problem is new. - Symptoms have improved. Signatures: Dispatcher [employer] EDRyan Castillo MD MD rn Marinas, Patrick, FADI ARCHEOLOGIST CLASSICAL pm1 Daron Garcia, RN RN rr5 Corrections: (The following items were deleted from the chart) 04:02 03:43 09/26/2018 03:43 Discharged to Home. Impression: Chronic obstructive pulmonary rr5 disease, unspecified; Homelessness. Condition is Stable. Forms are Medication Reconciliation Form, Thank You Letter, Antibiotic Education, Prescription Opioid Use. Follow up: Emergency Department; When: As needed; Reason: Worsening of condition. Follow up: Private Physician; When: 2 - 3 days; Reason: Recheck today's complaints, Continuance of care, Re-evaluation by your physician. Problem is new. Symptoms have improved. pm1
--- NOTE | 2018-09-26 03:45 | ER ---
Nurse's Notes [facility] Name: Mark Terrell Age: 67 yrs Sex: Male : 1950 Arrival Date: 09/25/2018 Time: 21:56 Bed 20 Private MD: Diagnosis: Chronic obstructive pulmonary disease, unspecified;Homelessness Presentation: 09/25 21:55 Presenting complaint: EMS states: patient complaining of shortness of breath. he wanted rr5 to kill himself tie his neck and wrap around the bridge then jump off. because of his SOB as patient verbalized. 21:55 Transition of care: patient was not received from another setting of care. Onset of rr5 symptoms was September 25, 2018. Risk Assessment: Do you want to hurt yourself or someone else? Patient reports desire/thoughts of hurting themselves or someone else. Provider notified. Initial Sepsis Screen: Does the patient meet any 2 criteria? RR > 20 per min. HR > 90 bpm. Yes Does the patient have a suspected source of infection? No. Patient's initial sepsis screen is negative. Care prior to arrival: Medication(s) given: pro air. 21:55 Method Of Arrival: EMS: [facility] rr5 21:55 Acuity: ARIEL 2 rr5 Triage Assessment: 21:55 General: Appears in no apparent distress. uncomfortable, Behavior is calm, cooperative, rr5 appropriate for age. Respiratory: Onset: The symptoms/episode began/occurred gradually, the patient has mild shortness of breath. Historical: - Allergies: 21:55 Benadryl; rr5 - Home Meds: 21:55 Furosemide Oral [Active]; NON-COMPLIANT [Active]; ProAir HFA inhalation inhalation rr5 [Active]; - PMHx: 21:55 Aneurysm; CHF; COPD; homeless; Hypertension; Prostate Cancer; rr5 - PSHx: 21:55 aneurysm repair; rr5 - Immunization history:: Adult Immunizations up to date. - Social history:: Smoking status: Patient uses tobacco products, 2-3 cigarettes a day. - Ebola Screening: : Patient negative for fever greater than or equal to 101.5 degrees Fahrenheit, and additional compatible Ebola Virus Disease symptoms Patient denies exposure to infectious person Patient denies travel to an Ebola-affected area in the 21 days before illness onset. Screenin:00 Abuse screen: Denies threats or abuse. Denies injuries from another. Nutritional rr5 screening: No deficits noted. Tuberculosis screening: No symptoms or risk factors identified. Fall Risk IV access (20 points). Total Chiang Fall Scale indicates No Risk (0-24 pts). Assessment: 22:00 General: Appears in no apparent distress. uncomfortable, Behavior is calm, cooperative, rr5 appropriate for age, Reports patient wants to tie his neck tie on a bridge and jump off. 22:00 Pain: Denies pain. Neuro: Level of Consciousness is awake, alert, obeys commands, rr5 Oriented to person, place, time, situation, Appropriate for age. Cardiovascular: Capillary refill < 3 seconds Patient's skin is warm and dry. Rhythm is. Respiratory: Reports shortness of breath Airway is patent Respiratory effort is even, unlabored, Respiratory pattern is regular, tachypnea. GI: No signs and/or symptoms were reported involving the gastrointestinal system. : No signs and/or symptoms were reported regarding the genitourinary system. EENT: No signs and/or symptoms were reported regarding the EENT system. Derm: Skin is intact, Skin temperature is warm. Musculoskeletal: Capillary refill < 3 seconds, Range of motion: intact in all extremities. 22:00 Respiratory: Breath sounds with wheezes. rr5 23:00 Reassessment: Patient appears in no apparent distress at this time. Patient is alert, rr5 oriented x 3, equal unlabored respirations, skin warm/dry/pink. awaiting for laboratory results. 09/26 00:00 Reassessment: Patient appears in no apparent distress at this time. Patient is alert, rr5 oriented x 3, equal unlabored respirations, skin warm/dry/pink. hooked on oxygen complaining still of SOB. 00:40 Reassessment: Patient appears in no apparent distress at this time. snacks given with rr5 good appetite. 01:15 Reassessment: Patient appears in no apparent distress at this time. Patient is alert, rr5 oriented x 3, equal unlabored respirations, skin warm/dry/pink. eyes closed on side lying position no complaints made. Patient states feeling better. Patient states symptoms have improved. 01:55 Reassessment: on side lying position position maitaning O2 saturation at 99% on nasal rr5 cannula at 2 liters. 02:40 Reassessment: Patient appears in no apparent distress at this time. [facility] emergency staff rr5 came and assess the patient. 04:00 Reassessment: Patient appears in no apparent distress at this time. Patient is alert, rr5 oriented x 3, equal unlabored respirations, skin warm/dry/pink. discharge instruction given and explained without complaints made. Vital Signs: 09/25 21:55 BP 142 / 100; Pulse 99; Resp 26; Temp 97.6; Pulse Ox 97% on R/A; Weight 79.38 kg; rr5 Height 5 ft. 11 in. (180.34 cm); Pain 0/10; 23:00 BP 159 / 87; Pulse 104; Resp 29; Pulse Ox 99% on R/A; rr5 23:58 BP 170 / 101; Pulse 103; Resp 24; Pulse Ox 96% on R/A; jb5 09/26 00:38 BP 163 / 104; Pulse 106; Resp 35; Pulse Ox 95% on R/A; jb5 01:00 BP 157 / 97; Pulse 104; Resp 22; Pulse Ox 100% on 4 lpm NC; jb5 01:43 BP 144 / 95; Pulse 106; Resp 40; Pulse Ox 100% on 4 lpm NC; jb5 01:54 BP 144 / 95; Pulse 104; Resp 19; Pulse Ox 100% on 4 lpm NC; jb5 02:00 Pulse Ox 100% on 2 lpm NC; rr5 02:55 BP 150 / 89; Pulse 99; Resp 34; Pulse Ox 97% on 2 lpm NC; jb5 04:00 BP 146 / 72; Pulse 90; Resp 25; Temp 97.8; Pulse Ox 98% on R/A; rr5 09/25 21:55 Body Mass Index 24.41 (79.38 kg, 180.34 cm) rr5 ED Course: 09/25 21:55 Arm band placed on. rr5 21:56 Patient arrived in ED. rr5 22:00 Safety Checks: Personal items have been removed. The door is open or patient has been rr5 placed in a hallway bed/chair. There are no family/friend visitors at this time Sitter present at this time. 22:00 Patient has correct armband on for positive identification. Placed in gown. Bed in low rr5 position. Side rails up X2. Pulse ox on. NIBP on. 22:01 Triage completed. rr5 22:03 Rj Arnold NP is PHCP. pm1 22:03 Ryan Vasquez MD is Attending Physician. pm1 22:15 Safety Checks: Personal items have been removed. The door is open or patient has been rr5 placed in a hallway bed/chair. There are no family/friend visitors at this time Sitter present at this time. 22:26 Daron Garcia RN is Primary Nurse. rr5 22:30 Safety Checks: Personal items have been removed. The door is open or patient has been rr5 placed in a hallway bed/chair. There are no family/friend visitors at this time Sitter present at this time. 22:45 Safety Checks: Personal items have been removed. The door is open or patient has been rr5 placed in a hallway bed/chair. There are no family/friend visitors at this time Sitter present at this time. 22:50 Inserted saline lock: 20 gauge in right antecubital area, using aseptic technique. rr5 Blood collected. 23:00 Safety Checks: Personal items have been removed. The door is open or patient has been rr5 placed in a hallway bed/chair. There are no family/friend visitors at this time Sitter present at this time. 23:15 Safety Checks: Personal items have been removed. The door is open or patient has been rr5 placed in a hallway bed/chair. There are no family/friend visitors at this time Sitter present at this time. 23:30 Safety Checks: Personal items have been removed. The door is open or patient has been rr5 placed in a hallway bed/chair. There are no family/friend visitors at this time Sitter present at this time. 23:45 Safety Checks: Personal items have been removed. The door is open or patient has been rr5 placed in a hallway bed/chair. There are no family/friend visitors at this time Sitter present at this time. 09/26 00:00 Safety Checks: Personal items have been removed. The door is open or patient has been rr5 placed in a hallway bed/chair. There are no family/friend visitors at this time Sitter present at this time. 00:11 Safety checks: Door open/sign placed on door: Sitter present: Yes. jb5 00:27 Safety checks: Door open/sign placed on door: Sitter present: Yes. jb5 00:30 Urine collected: straight cath specimen, clear, Amount Returned: 300mL. rr5 00:37 Urine Dipstick--Ancillary (enter results) Sent. jb5 00:37 Urine Drug Screen Sent. jb5 00:43 Safety checks: Door open/sign placed on door: Sitter present: Yes. jb5 00:43 Oxygen administration via nasal cannula \T\ 4L/min Response to oxygen therapy: Patients jb5 oxygen saturation would drop to 90% and respirations would increase, decided to put him on a nasal cannula to help oxygenate better. 00:45 Diet: Patient given snack. Patient given ice chips. Patient given water. Patient asked jb5 if he was hungry, sandwhich, chips, water, ice chips and two fruit cups were given,. . 01:09 Safety checks: Door open/sign placed on door: Sitter present: Yes. jb5 01:28 Safety checks: Door open/sign placed on door: Sitter present: Yes. Other: Patient jb5 sleeping. 01:44 Safety checks: Door open/sign placed on door: yes. Sitter present: Yes. jb5 01:54 Diet: Patient given ice chips. Patient woke up asking for more food, patient was given jb5 another sandwich and water.. 02:12 Safety checks: Door open/sign placed on door: yes. Sitter present: Yes. jb5 02:25 Safety checks: Door open/sign placed on door: yes. Sitter present: Yes. jb5 02:54 Safety checks: Door open/sign placed on door: yes. Sitter present: Other: [place] [id number] employee with patient. 04:00 No provider procedures requiring assistance completed. IV discontinued, intact, rr5 bleeding controlled, No redness/swelling at site. Pressure dressing applied. Administered Medications: 09/25 22:30 Drug: Albuterol - atroVENT (3:1) (2.5 mg - 0.5 mg) 3 ml Route: Nebulizer; rr5 23:30 Follow up: Response: No adverse reaction rr5 22:32 Drug: predniSONE 60 mg Route: PO; rr5 23:30 Follow up: Response: No adverse reaction rr5 22:32 Drug: LaSIX 40 mg Route: PO; rr5 23:30 Follow up: Response: No adverse reaction rr5 09/26 01:10 Drug: Potassium Effervescent Tablet 50 mEq Route: PO; rr5 02:10 Follow up: Response: No adverse reaction rr5 Outcome: 03:43 Discharge ordered by . pm1 04:00 Discharged to home via wheelchair. rr5 04:00 Condition: stable 04:00 Discharge instructions given to patient, Instructed on discharge instructions, follow up and referral plans. medication usage, Demonstrated understanding of instructions, follow-up care, medications, Prescriptions given X 1. 04:02 Patient left the ED. rr5 Signatures: Rj Arnold NP [facility] pm1 [facility] jb5 Daron Garcia RN RN rr5 Corrections: (The following items were deleted from the chart) 01:56 00:45 Diet: Patient given snack. Patient given ice chips. Patient given water. Patient jb5 asked if he was hungry, sandwhich, chips, water, ice chips and two fruit cups were given,. . jb5
[2018-09-26 04:30] VITALS: TEMP 97.6
[2018-09-26 04:40] VITALS: BP 150/89; O2SAT 97
--- NOTE | 2018-09-27 06:31 | EKG ---
Test Date: 2018-09-25 Test Time: 23:10:45 Outer Diameter Grinder Tool: MILDRED MEASUREMENT RESULTS: Intervals: Rate: 100 AR: 150 QRSD: 124 QT: 394 QTc: 508 [place]ston: P: 86 AR: 150 QRS: 115 T: 9 INTERPRETIVE STATEMENTS: Normal sinus rhythm Possible Left atrial enlargement Right axis Cannot rule out Anterior infarct, age undetermined Abnormal ECG Compared to ECG 09/19/2018 21:55:06 Sinus tachycardia no longer present Atrial premature complex(es) no longer present Ventricular premature complex(es) no longer present Myocardial infarct finding still present Electronically Signed On 09-27-18 06:30:48 CDT by Jitendra Willams
== END 2018-09-26 04:02 | disposition home or self-care (01) ==
LOC: ER 21:50
DX: J44.9 Chronic obstructive pulmonary disease, unspecified (principal); R45.851 Suicidal ideations; I10 Essential (primary) hypertension; Z59.0 Homelessness; Z72.0 Tobacco use; Z85.46 Personal history of malignant neoplasm of prostate; Z88.8 Allergy status to other drugs, medicaments and biological substances
CPT/HCPCS: 36415; 80048; 80076; 80307; 80320; 80329; 81003; 85025; 85610; 85730; 93005; 94640; 99285; J7512

== ENCOUNTER 2018-09-27 22:37 | Emergency (ER) | payer OTHER ==
--- OUTSIDE RECORDS SUMMARY | 2018-09-27 22:39 | XMS REPORT ---
:1950 [facility] [address] [place] [address] Care Team Providers Name Role Phone Unavailable [...] 1 View 2017-12-22 23:14:17 Patient: JOSTIN BURTON [facility] Date/Time12/22/2017 22:58 CDTReason for ExamCHF [...]
[2018-09-28 00:24] LABS: Protime INR 1.38
[2018-09-28 00:36] LABS: Basophils % 0.7 % (0-1.3); Hematocrit 32.3 % (39.6-49.0); Lymphocytes % 16.4 % (15.3-44.8); MPV 9.4 fL (7.6-11.3); RBC Red Blood Cell Count 5.69 M/uL (4.33-5.43)
[2018-09-28 00:39] LABS: Albumin 3.2 g/dL (3.4-5.0); Bilirubin Direct 0.6 mg/dL (0-0.2); Bilirubin Total 1.5 mg/dL (0.2-1.0); Magnesium 2.2 mg/dL (1.8-2.4); Potassium 3.6 mmol/L (3.5-5.1); Troponin (Emerg Dept Use Only) 0.06 ng/mL (0.0-0.045)
[2018-09-28 00:54] LABS: Anisocytosis 1+; Blood Morphology Comment NOTED (NOT SEEN); Hypochromasia 1+; Platelet Estimate ADEQ; Polychromasia SLIGHT; Urine White Blood Cell Casts OK
[2018-09-28] MEDS ORDERED: FUROSEMIDE 20 MG/ 2ML VIAL ONE (00:54)
[2018-09-28] MEDS ORDERED: FUROSEMIDE 40 MG/4 ML VIAL ONE (00:54)
--- NOTE | 2018-09-28 01:14 | ER ---
Nurse's Notes [facility] Name: Mark Terrell Age: 67 yrs Sex: Male : 1950 Arrival Date: 09/27/2018 Time: 22:41 Bed 15 Private MD: Diagnosis: Acute combined systolic (congestive) and diastolic (congestive) heart failure Presentation: 09/27 22:48 Presenting complaint: EMS states: Pt reports difficulty breathing and having difficulty jb4 walking. Transition of care: patient was not received from another setting of care. Onset of symptoms was September 27, 2018. Risk Assessment: Do you want to hurt yourself or someone else? Patient reports no desire to harm self or others. Initial Sepsis Screen: Does the patient meet any 2 criteria? RR > 20 per min. HR > 90 bpm. Yes Does the patient have a suspected source of infection? No. Patient's initial sepsis screen is negative. Care prior to arrival: Medication(s) given: Albuterol Neb x 2, Atrovent Neb x 2. 22:48 Method Of Arrival: EMS: [facility] 22:48 Acuity: ARIEL 3 jb4 Historical: - Allergies: 22:40 Benadryl; jb4 - Home Meds: 22:40 NON-COMPLIANT [Active]; Furosemide Oral [Active]; ProAir HFA inhalation [Active]; jb4 - PMHx: 22:40 Aneurysm; homeless; Hypertension; Prostate Cancer; COPD; CHF; jb4 - PSHx: 22:40 aneurysm repair; jb4 - Immunization history:: Adult Immunizations unknown. - Social history:: Smoking status: Patient/guardian denies using tobacco. - Ebola Screening: : No symptoms or risks identified at this time. Screenin:40 Abuse screen: Denies threats or abuse. Nutritional screening: No deficits noted. jb4 Tuberculosis screening: No symptoms or risk factors identified. Fall Risk None identified. Assessment: 22:40 General: Appears distressed, uncomfortable, Behavior is calm, cooperative. Pain: jb4 Complains of pain in thoracic area and chest Pain does not radiate. Pain currently is 8 out of 10 on a pain scale. Neuro: Level of Consciousness is awake, alert, obeys commands, Oriented to person, place, time, situation. Cardiovascular: Patient's skin is warm and dry. Rhythm is sinus tachycardia. Respiratory: Airway is patent Respiratory effort is even, labored, Respiratory pattern is symmetrical, tachypnea Breath sounds are clear bilaterally. GI: No signs and/or symptoms were reported involving the gastrointestinal system. : No signs and/or symptoms were reported regarding the genitourinary system. EENT: No signs and/or symptoms were reported regarding the EENT system. Derm: Skin is intact, Skin is pink, warm \T\ dry. Musculoskeletal: Circulation, motion, and sensation intact. Range of motion: intact in all extremities. 23:10 Reassessment: PT refused to finish breathing treatment from EMS, Placed on 2L NC. jb4 23:10 Reassessment: Pt appears to have periods of apnea, and desats to 85% while on room air, jb4 placed on 2L NC. 09/28 00:00 Reassessment: Patient appears in no apparent distress at this time. No changes from jb4 previously documented assessment. Patient and/or family updated on plan of care and expected duration. Pain level reassessed. 00:56 Reassessment: Patient appears in no apparent distress at this time. No changes from jb4 previously documented assessment. Patient and/or family updated on plan of care and expected duration. Pain level reassessed. PT given 2 sandwiches and ice water per request. 01:38 Reassessment: Patient appears in no apparent distress at this time. Patient and/or jb4 family updated on plan of care and expected duration. Pain level reassessed. Patient is alert, oriented x 3, equal unlabored respirations, skin warm/dry/pink. 02:30 Reassessment: Patient appears in no apparent distress at this time. Patient and/or jb4 family updated on plan of care and expected duration. Pain level reassessed. Pt respiration are even , symmetrical, labored, tachypneic, pt reports difficulty breathing. Desats to 79% on room air. provider notified see [facility] for orders. 03:07 Reassessment: Patient appears in no apparent distress at this time. Patient and/or jb4 family updated on plan of care and expected duration. Pain level reassessed. Patient is alert, oriented x 3, equal unlabored respirations, skin warm/dry/pink. Respirations are unlabored, tachypneic, pt reports being able to breath easier. Discharged to [facility]. Patient states feeling better. Patient states symptoms have improved. Vital Signs: 09/27 22:40 BP 158 / 111; Pulse 108; Resp 28; Temp 98.3(O); Pulse Ox 99% on R/A; Weight 79.38 kg jb4 (R); Height 5 ft. 11 in. (180.34 cm); Pain 10/10; 23:16 BP 151 / 100; Pulse 101; Resp 20; Pulse Ox 95% on 2 lpm NC; jb4 09/28 00:15 BP 141 / 108; Pulse 98; Resp 31; Pulse Ox 99% on R/A; jb4 00:59 BP 146 / 88; Pulse 101; Resp 38; Pulse Ox 97% on 2 lpm NC; jb4 01:38 BP 123 / 80; Pulse 100; Resp 27; Pulse Ox 100% on 2 lpm NC; jb4 02:15 BP 141 / 72; Pulse 105; Resp 23; Pulse Ox 97% on R/A; jb4 03:07 BP 150 / 101; Pulse 101; Resp 28; Pulse Ox 97% on R/A; jb4 09/27 22:40 Body Mass Index 24.41 (79.38 kg, 180.34 cm) jb4 ED Course: 09/27 22:40 Arm band placed on left wrist. jb4 22:40 Patient has correct armband on for positive identification. Placed in gown. Bed in low jb4 position. Call light in reach. Side rails up X 1. surveillance system monitor on. Pulse ox on. NIBP on. 22:41 Patient arrived in ED. bb 22:44 Petar Camargo PA is PHCP. jr8 22:45 Blair Kerr MD is Attending Physician. jr8 22:47 Curtis Strauss, LASHAY is Primary Nurse. jb4 22:53 Triage completed. jb4 09/28 00:07 X-ray completed. Portable x-ray completed in exam room. Patient tolerated procedure kw well. 00:27 XRAY Chest (1 view) In Process Unspecified. EDMS 00:33 Inserted saline lock: 20 gauge in left antecubital area, using aseptic technique. Blood mt collected. 03:07 No provider procedures requiring assistance completed. IV discontinued, intact, jb4 bleeding controlled, No redness/swelling at site. Pressure dressing applied. Administered Medications: 00:41 Drug: Lasix 60 mg Route: IVP; Site: left antecubital; jb4 01:39 Follow up: Response: No adverse reaction jb4 02:50 Drug: Albuterol 2.5 mg Route: Inhalation; jb4 03:05 Follow up: Response: No adverse reaction; Marked relief of symptoms jb4 02:50 Drug: AtroVENT Aerosol 0.5 mg Route: Inhalation; jb4 03:05 Follow up: Response: No adverse reaction; Marked relief of symptoms jb4 Outcome: 01:12 Discharge ordered by . jrDhruv 03:07 Discharged to home via wheelchair. jb4 03:07 Condition: stable 03:07 Discharge instructions given to patient, Instructed on discharge instructions, follow up and referral plans. Demonstrated understanding of instructions, follow-up care. 03:10 Patient left the ED. jb4 Signatures: Dispatcher [employer] EDMS Myriam Roldan RN RN Yolie Rea Josh, PA PA jr8 Bryson, James, RN RN jb4 Thompson, Moriah mt Corrections: (The following items were deleted from the chart) 09/27 23:16 22:48 Care prior to arrival: None. jb4 jb4 09/28 03:09 03:07 Reassessment: Patient appears in no apparent distress at this time. Patient jb4 and/or family updated on plan of care and expected duration. Pain level reassessed. Patient is alert, oriented x 3, equal unlabored respirations, skin warm/dry/pink. Patient states feeling better. Patient states symptoms have improved. jb4
--- NOTE | 2018-09-28 01:15 | EDPHYS ---
Physician Documentation [facility] Name: Mark Terrell Age: 67 yrs Sex: Male : 1950 Arrival Date: 09/27/2018 Time: 22:41 Bed 15 Private MD: ED Physician Blair Kerr HPI: 09/28 00:20 This 67 yrs old Male presents to ER via EMS with complaints of Shortness of jr8 breath. 00:20 The patient has shortness of breath at rest, with light activity. Onset: The jr8 symptoms/episode began/occurred acutely, today. Duration: The symptoms are continuous. The patient's shortness of breath is aggravated by light activity, walking. Associated signs and symptoms: The patient has no apparent associated signs or symptoms. Severity of symptoms: At their worst the symptoms were moderate in the emergency department the symptoms are unchanged. The patient has experienced similar episodes in the past, chronically. The patient has been recently seen by a physician:. Historical: - Allergies: 09/27 22:40 Benadryl; jb4 - Home Meds: 22:40 NON-COMPLIANT [Active]; Furosemide Oral [Active]; ProAir HFA inhalation [Active]; jb4 - PMHx: 22:40 Aneurysm; homeless; Hypertension; Prostate Cancer; COPD; CHF; jb4 - PSHx: 22:40 aneurysm repair; jb4 - Immunization history:: Adult Immunizations unknown. - Social history:: Smoking status: Patient/guardian denies using tobacco. - Ebola Screening: : No symptoms or risks identified at this time. ROS: 09/28 00:20 Eyes: Negative for injury, pain, redness, and discharge, ENT: Negative for injury, jr8 pain, and discharge, Neck: Negative for injury, pain, and swelling, Cardiovascular: Negative for chest pain, palpitations, and edema, Abdomen/GI: Negative for abdominal pain, nausea, vomiting, diarrhea, and constipation, Back: Negative for injury and pain, MS/Extremity: Negative for injury and deformity, Skin: Negative for injury, rash, and discoloration, Neuro: Negative for headache, weakness, numbness, tingling, and seizure. Respiratory: Positive for shortness of breath. Exam: 00:20 Eyes: Pupils equal round and reactive to light, extra-ocular motions intact. Lids and jr8 lashes normal. Conjunctiva and sclera are non-icteric and not injected. Cornea within normal limits. Periorbital areas with no swelling, redness, or edema. ENT: Nares patent. No nasal discharge, no septal abnormalities noted. Tympanic membranes are normal and external auditory canals are clear. Oropharynx with no redness, swelling, or masses, exudates, or evidence of obstruction, uvula midline. Mucous membranes moist. Neck: Trachea midline, no thyromegaly or masses palpated, and no cervical lymphadenopathy. Supple, full range of motion without nuchal rigidity, or vertebral point tenderness. No Meningismus. Cardiovascular: Regular rate and rhythm with a normal S1 and S2. No gallops, murmurs, or rubs. Normal PMI, no JVD. No pulse deficits. 2 + pitting edema bilateral lower extremities Abdomen/GI: Soft, non-tender, with normal bowel sounds. No distension or tympany. No guarding or rebound. No evidence of tenderness throughout. Back: No spinal tenderness. No costovertebral tenderness. Full range of motion. Skin: Warm, dry with normal turgor. Normal color with no rashes, no lesions, and no evidence of cellulitis. MS/ Extremity: Pulses equal, no cyanosis. Neurovascular intact. Full, normal range of motion. Neuro: Awake and alert, GCS 15, oriented to person, place, time, and situation. Cranial nerves II-XII grossly intact. Motor strength 5/5 in all extremities. Sensory grossly intact. Cerebellar exam normal. Normal gait. 00:20 Respiratory: mild respiratory distress is noted, Respirations: tachypnea, that is mild, Breath sounds: rales, that are mild, are located in both bases. Vital Signs: 09/27 22:40 BP 158 / 111; Pulse 108; Resp 28; Temp 98.3(O); Pulse Ox 99% on R/A; Weight 79.38 kg jb4 (R); Height 5 ft. 11 in. (180.34 cm); Pain 10/10; 23:16 BP 151 / 100; Pulse 101; Resp 20; Pulse Ox 95% on 2 lpm NC; jb4 09/28 00:15 BP 141 / 108; Pulse 98; Resp 31; Pulse Ox 99% on R/A; jb4 00:59 BP 146 / 88; Pulse 101; Resp 38; Pulse Ox 97% on 2 lpm NC; jb4 01:38 BP 123 / 80; Pulse 100; Resp 27; Pulse Ox 100% on 2 lpm NC; 4 02:15 BP 141 / 72; Pulse 105; Resp 23; Pulse Ox 97% on R/A; jb4 03:07 BP 150 / 101; Pulse 101; Resp 28; Pulse Ox 97% on R/A; 4 09/27 22:40 Body Mass Index 24.41 (79.38 kg, 180.34 cm) [facility] MDM: 09/27 22:45 Patient medically screened. 09/28 01:10 Data reviewed: vital signs, nurses notes, old medical records, lab test result(s), EKG, radiologic studies, plain films. Data interpreted: Pulse oximetry: on room air is 96 %. Interpretation: acceptable. 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 Response to treatment: the patient's symptoms have markedly improved after treatment. ED course: Patient has chronically elevated BNP and troponin. No substantial difference tonight. CXR without acute change. Patient diuresed and doing better. Resting comfortably in exam room and no longer tachypneic. Will d/c home to f/u with and Cardiology . 09/27 23:17 Order name: Basic Metabolic Panel; Complete Time: 00:57 09/27 23:17 Order name: CBC with Diff; Complete Time: 00:57 09/27 23:17 Order name: LFT's; Complete Time: 00:57 09/27 23:17 Order name: Magnesium; Complete Time: 00:57 09/27 23:17 Order name: NT PRO-BNP; Complete Time: 00:57 09/27 23:17 Order name: PT-INR; Complete Time: 00:57 09/27 23:17 Order name: Troponin (emerg Dept Use Only); Complete Time: 00:57 09/27 23:17 Order name: XRAY Chest (1 view) [facility] 09/27 23:17 Order name: EKG; Complete Time: 23:23 8 09/27 23:17 Order name: Cardiac monitoring; Complete Time: 23:38 09/28 00:56 Order name: CBC Smear Scan; Complete Time: 00:57 [facility] 09/27 23:17 Order name: EKG - Nurse/Tech; Complete Time: 00:28 [facility] 09/27 23:17 Order name: IV Saline Lock; Complete Time: 00:32 [facility] 09/27 23:17 Order name: Labs collected and sent; Complete Time: 00:28 09/27 23:17 Order name: O2 Per Protocol; Complete Time: 23:38 [facility] 09/27 23:17 Order name: O2 Sat Monitoring; Complete Time: 23:38 [facility] Administered Medications: 00:41 Drug: Lasix 60 mg Route: IVP; Site: left antecubital; jb4 01:39 Follow up: Response: No adverse reaction jb4 02:50 Drug: Albuterol 2.5 mg Route: Inhalation; jb4 03:05 Follow up: Response: No adverse reaction; Marked relief of symptoms jb4 02:50 Drug: AtroVENT Aerosol 0.5 mg Route: Inhalation; jb4 03:05 Follow up: Response: No adverse reaction; Marked relief of symptoms jb4 Disposition: 06:33 Co-signature as Attending Physician, Blair Kerr MD I agree with the assessment and tw4 plan of care. Disposition: 09/28/18 01:12 Discharged to Home. Impression: Acute combined systolic (congestive) and diastolic (congestive) heart failure. - Condition is Stable. - Discharge Instructions: Heart Failure. - Medication Reconciliation Form, Thank You Letter, Antibiotic Education, Prescription Opioid Use form. - Follow up: Private Physician; When: 5 - 6 days; Reason: Recheck today's complaints, Continuance of care, Re-evaluation by your physician. - Problem is new. - Symptoms have improved. Signatures: Dispatcher [employer] EDMS Petar Camargo PA PA jr8 Curtis Strauss RN RN Blair Sanches MD MD tw4 Corrections: (The following items were deleted from the chart) 03:10 01:12 09/28/2018 01:12 Discharged to Home. Impression: Acute combined systolic jb4 (congestive) and diastolic (congestive) heart failure. Condition is Stable. Forms are Medication Reconciliation Form, Thank You Letter, Antibiotic Education, Prescription Opioid Use. Follow up: Private Physician; When: 5 - 6 days; Reason: Recheck today's complaints, Continuance of care, Re-evaluation by your physician. Problem is new. Symptoms have improved. jr8
[2018-09-28] MEDS ORDERED: ALBUTEROL 2.5 MG/3 ML NEB SOL ONE (02:44)
[2018-09-28] MEDS ORDERED: IPRATROPIUM BROM 0.5MG/2.5ML ONE (02:44)
[2018-09-28 03:18] VITALS: TEMP 98.3
[2018-09-28 03:24] VITALS: O2SAT 97
[2018-09-28 03:25] VITALS: BP 150/101
--- NOTE | 2018-09-28 07:38 | EKG ---
Test Date: 2018-09-27 Test Time: 23:54:24 [employer] Supervisor: AVELINO MEASUREMENT RESULTS: Intervals: Rate: 101 AR: 156 QRSD: 116 QT: 402 QTc: 521 [place]: P: 56 AR: 156 QRS: 127 T: -17 INTERPRETIVE STATEMENTS: Sinus tachycardia with occasional premature ventricular complexes Right axis Prolonged QT Abnormal ECG Compared to ECG 09/25/2018 23:10:45 Ventricular premature complex(es) now present Prolonged QT interval now present Sinus rhythm no longer present Electronically Signed On 09-28-18 07:38:17 CDT by Jitendra Willams
--- NOTE | 2018-09-28 08:40 | RAD REPORT ---
EXAM DESCRIPTION: RAD - Chest Single View - 09/28/2018 12:09 am CLINICAL HISTORY: Dyspnea COMPARISON: September 19 TECHNIQUE: AP portable chest image was obtained 2357 hours . FINDINGS: Increased interstitial opacification present above and already prominent pattern seen September 19. Cardiac silhouette remains enlarged. Vascular engorgement present. No measurable pleural effusio n and no pneumothorax. No acute bony abnormality seen. No acute aortic findings suspected. IMPRESSION: Mild to moderate CHF pattern slightly worse than September 19.
== END 2018-09-28 03:10 | disposition home or self-care (01) ==
LOC: ER 22:37
DX: I50.41 Acute combined systolic (congestive) and diastolic (congestive) heart failure (principal); I10 Essential (primary) hypertension; J44.9 Chronic obstructive pulmonary disease, unspecified; Z59.0 Homelessness; Z88.8 Allergy status to other drugs, medicaments and biological substances; Z85.46 Personal history of malignant neoplasm of prostate
CPT/HCPCS: 93005; 85025; 80048; 36415; 83735; 85610; 80076; 84484; 83880; 71045; 96374; 99285; J1940 ×2

== ENCOUNTER 2018-09-29 20:41 | Emergency (ER) | payer OTHER ==
--- OUTSIDE RECORDS SUMMARY | 2018-09-29 20:44 | XMS REPORT ---
:1950 [facility] [address] [place] [address] Care Team Providers Name Role Phone Unavailable [...] View 2017-12-22 23:14:17 Patient: JOSTIN BURTON [facility] Date/Time12/22/2017 22:58 CDTReason for ExamCHF (Congestive [...]
[2018-09-29] MEDS ORDERED: FUROSEMIDE 40 MG TABLET ONE (21:22)
[2018-09-29] MEDS ORDERED: ALBUTEROL 2.5 MG/3 ML NEB SOL ONE (21:25)
[2018-09-29] MEDS ORDERED: IPRATROPIUM BROM 0.5MG/2.5ML ONE (21:25)
--- NOTE | 2018-09-29 22:52 | ER ---
Nurse's Notes [facility] Name: Mark Terrell Age: 67 yrs Sex: Male : 1950 Arrival Date: 09/29/2018 Time: 20:43 Bed 28 Private MD: Diagnosis: Chronic obstructive pulmonary disease, unspecified;Combined systolic (congestive) and diastolic (congestive) heart failure Presentation: 09/29 20:44 Presenting complaint: EMS states: patient has shortness of breath and mild cough for mg2 5-6 days now. denies chest pain. Transition of care: patient was not received from another setting of care. Onset of symptoms was August 2018. Risk Assessment: Do you want to hurt yourself or someone else? Patient reports no desire to harm self or others. Initial Sepsis Screen: Does the patient meet any 2 criteria? No. Patient's initial sepsis screen is negative. Does the patient have a suspected source of infection? No. Patient's initial sepsis screen is negative. Care prior to arrival: None. 20:44 Method Of Arrival: EMS: [facility] mg2 20:44 Acuity: ARIEL 2 mg2 Historical: - Allergies: 20:49 Benadryl; mg2 - Home Meds: 20:49 Furosemide Oral [Active]; NON-COMPLIANT [Active]; ProAir HFA inhalation [Active]; mg2 - PMHx: 20:49 Aneurysm; CHF; COPD; homeless; Hypertension; Prostate Cancer; mg2 - Immunization history:: Flu vaccine status is unknown. - Social history:: Smoking status: Patient uses tobacco products, smokes one-half pack cigarettes per day. - Ebola Screening: : No symptoms or risks identified at this time. Screenin:51 Abuse screen: Denies threats or abuse. Denies injuries from another. Nutritional mg2 screening: No deficits noted. Tuberculosis screening: No symptoms or risk factors identified. Fall Risk None identified. Assessment: 20:52 General: Appears comfortable, Behavior is calm, cooperative. Pain: Denies pain. Neuro: mg2 Level of Consciousness is awake, alert, obeys commands, Oriented to person, place, time, situation. Cardiovascular: Capillary refill < 3 seconds Patient's skin is warm and dry. Respiratory: Reports shortness of breath at rest Breath sounds are clear bilaterally. in right upper lobe, left upper lobe, right middle lobe and left lower lobe. Respiratory: Reports cough that is. GI: No signs and/or symptoms were reported involving the gastrointestinal system. : No signs and/or symptoms were reported regarding the genitourinary system. EENT: No signs and/or symptoms were reported regarding the EENT system. Derm: Skin has lesions on in arms Skin is pink, warm \T\ dry. normal. Musculoskeletal: Circulation, motion, and sensation intact. Capillary refill < 3 seconds. 23:04 Reassessment: patient is up for discharge. patient in good condition, not in distress, mg2 and discharge papers signed. Vital Signs: 20:50 BP 148 / 98; Pulse 97; Resp 30; Temp 97.7; Pulse Ox 84% on R/A; Weight 79.38 kg; Height mg2 5 ft. 11 in. (180.34 cm); Pain 0/10; 22:09 BP 131 / 101; Pulse 99; Resp 28; Temp 97.8; Pulse Ox 95% on 2 lpm NC; mg2 22:53 BP 114 / 92; Pulse 98; Resp 24; Temp 97; Pulse Ox 96% on 2 lpm NC; mg2 20:50 Body Mass Index 24.41 (79.38 kg, 180.34 cm) mg2 ED Course: 20:43 Patient arrived in ED. mg2 20:44 Era Leung FNP-C [facility]. kb 20:44 Blair Kerr MD is Attending Physician. kb 20:46 Triage completed. mg2 20:51 Arm band placed on. mg2 20:52 Patient has correct armband on for positive identification. Door closed. Warm blanket mg2 given. 20:53 No provider procedures requiring assistance completed. mg2 20:56 Sidney Kerr, LASHAY is Primary Nurse. mg2 21:26 Chest Single View XRAY In Process Unspecified. EDMS 23:06 Patient did not have IV access during this emergency room visit. mg2 Administered Medications: 21:05 Drug: LaSIX 40 mg Route: PO; mg2 22:53 Follow up: Response: No adverse reaction; Marked relief of symptoms mg2 21:05 Drug: Albuterol 2.5 mg Route: Inhalation; mg2 22:53 Follow up: Response: No adverse reaction; Marked relief of symptoms mg2 21:06 Drug: AtroVENT Aerosol 0.5 mg Route: Inhalation; mg2 22:52 Follow up: Response: No adverse reaction; Marked relief of symptoms mg2 Outcome: 22:51 Discharge ordered by MD. burns 23:06 Condition: stable mg2 23:06 Discharge instructions given to patient, Instructed on discharge instructions, follow up and referral plans. Demonstrated understanding of instructions, follow-up care. 23:06 Discharged to home mg2 09/30 00:01 Patient left the ED. bb Signatures: Dispatcher [employer] EDMS Era Leung, Myriam Whiting RN RN Sidney Martinez RN RN mg2 Corrections: (The following items were deleted from the chart) 09/29 20:48 20:44 Acuity: ARIEL 3 mg2 mg2 22:58 22:53 Resp 24bpm; Pulse Ox 96% 2 lpm Nasal Cannula; Temp 97F; mg2 mg2 23:07 23:06 Discharged to home ambulatory, mg2 mg2
--- NOTE | 2018-09-29 22:52 | EDPHYS ---
Physician Documentation [facility] Name: Mark Terrell Age: 67 yrs Sex: Male : 1950 Arrival Date: 09/29/2018 Time: 20:43 Bed 28 Private MD: ED Physician Blair Kerr HPI: 09/29 20:59 This 67 yrs old Male presents to ER via EMS with complaints of shortness of kb breath. 20:59 The patient has shortness of breath at rest, with light activity, and the patient has a kb history of COPD, CHF. Onset: The symptoms/episode began/occurred just prior to arrival. Duration: The symptoms are chronic. The patient's shortness of breath is aggravated by light activity, walking. Associated signs and symptoms: The patient has no apparent associated signs or symptoms. Severity of symptoms: At their worst the symptoms were moderate in the emergency department the symptoms have improved. The patient has experienced similar episodes in the past, chronically. The patient has been recently seen at the [facility] Emergency Department. Pt reports he was having trouble breathing so he called 911. Pt has history of COPD and CHF, does not take prescribed medications, still smokes cigarettes. States he feels better after neb treatment given by EMS. States "I'd be doing a lot better if I could get this sandwich open." Pt in no apparent distress with oxygen sat of 99% on 2l NC. . Historical: - Allergies: 20:49 Benadryl; mg2 - Home Meds: 20:49 Furosemide Oral [Active]; NON-COMPLIANT [Active]; ProAir HFA inhalation [Active]; mg2 - PMHx: 20:49 Aneurysm; CHF; COPD; homeless; Hypertension; Prostate Cancer; mg2 - Immunization history:: Flu vaccine status is unknown. - Social history:: Smoking status: Patient uses tobacco products, smokes one-half pack cigarettes per day. - Ebola Screening: : No symptoms or risks identified at this time. ROS: 20:59 Constitutional: Negative for fever, chills, and weight loss, Neck: Negative for injury, kb pain, and swelling, Cardiovascular: Negative for chest pain, palpitations, and edema, Abdomen/GI: Negative for abdominal pain, nausea, vomiting, diarrhea, and constipation, Back: Negative for injury and pain, : Negative for injury, bleeding, discharge, and swelling, MS/Extremity: Negative for injury and deformity, Skin: Negative for injury, rash, and discoloration, Neuro: Negative for headache, weakness, numbness, tingling, and seizure. 20:59 Respiratory: Positive for cough, shortness of breath. Exam: 20:59 Head/Face: Normocephalic, atraumatic. ENT: Nares patent. No nasal discharge, no kb septal abnormalities noted. Tympanic membranes are normal and external auditory canals are clear. Oropharynx with no redness, swelling, or masses, exudates, or evidence of obstruction, uvula midline. Mucous membranes moist. Neck: Trachea midline, no thyromegaly or masses palpated, and no cervical lymphadenopathy. Supple, full range of motion without nuchal rigidity, or vertebral point tenderness. No Meningismus. Chest/axilla: Normal chest wall appearance and motion. Nontender with no deformity. No lesions are appreciated. Cardiovascular: Regular rate and rhythm with a normal S1 and S2. No gallops, murmurs, or rubs. Normal PMI, no JVD. No pulse deficits. Abdomen/GI: Soft, non-tender, with normal bowel sounds. No distension or tympany. No guarding or rebound. No evidence of tenderness throughout. MS/ Extremity: Pulses equal, no cyanosis. Neurovascular intact. Full, normal range of motion. Neuro: Awake and alert, GCS 15, oriented to person, place, time, and situation. Cranial nerves II-XII grossly intact. Motor strength 5/5 in all extremities. Sensory grossly intact. Cerebellar exam normal. Normal gait. 20:59 Constitutional: The patient appears alert, awake, unkempt. 20:59 Cardiovascular: Edema: 2+ edema to level of lower extremities. 20:59 Respiratory: the patient does not display signs of respiratory distress, Respirations: normal, Breath sounds: decreased breath sounds, that are mild, are located in both bases. Vital Signs: 20:50 BP 148 / 98; Pulse 97; Resp 30; Temp 97.7; Pulse Ox 84% on R/A; Weight 79.38 kg; Height mg2 5 ft. 11 in. (180.34 cm); Pain 0/10; 22:09 BP 131 / 101; Pulse 99; Resp 28; Temp 97.8; Pulse Ox 95% on 2 lpm NC; mg2 22:53 BP 114 / 92; Pulse 98; Resp 24; Temp 97; Pulse Ox 96% on 2 lpm NC; mg2 20:50 Body Mass Index 24.41 (79.38 kg, 180.34 cm) mg2 MDM: 20:44 Patient medically screened. kb 21:05 Data reviewed: vital signs, nurses notes. Data interpreted: Pulse oximetry: on 2L(s) kb per nasal canula, is 99 %. Interpretation: normal. 22:53 Counseling: I had a detailed discussion with the patient and/or guardian regarding: the kb historical points, exam findings, and any diagnostic results supporting the discharge/admit diagnosis, radiology results, the need for outpatient follow up, a family practitioner, to return to the emergency department if symptoms worsen or persist or if there are any questions or concerns that arise at home. 09/29 20:57 Order name: Chest Single View XRAY kb Administered Medications: 21:05 Drug: LaSIX 40 mg Route: PO; mg2 22:53 Follow up: Response: No adverse reaction; Marked relief of symptoms mg2 21:05 Drug: Albuterol 2.5 mg Route: Inhalation; mg2 22:53 Follow up: Response: No adverse reaction; Marked relief of symptoms mg2 21:06 Drug: AtroVENT Aerosol 0.5 mg Route: Inhalation; mg2 22:52 Follow up: Response: No adverse reaction; Marked relief of symptoms mg2 Disposition: 09/29/18 22:51 Discharged to Home. Impression: Chronic obstructive pulmonary disease, unspecified, Combined systolic (congestive) and diastolic (congestive) heart failure. - Condition is Stable. - Discharge Instructions: Chronic Obstructive Pulmonary Disease Exacerbation. - Medication Reconciliation Form, Thank You Letter, Antibiotic Education, Prescription Opioid Use form. - Follow up: Emergency Department; When: As needed; Reason: Worsening of condition. Follow up: Private Physician; When: 2 - 3 days; Reason: Recheck today's complaints, Continuance of care, Re-evaluation by your physician. Signatures: Dispatcher [employer] Era Bradford, IVONNEC POLLY-Myriam Mckeon RN RN Sidney Martinez RN RN mg2 Corrections: (The following items were deleted from the chart) 09/30 00:01 09/29 22:51 09/29/2018 22:51 Discharged to Home. Impression: Chronic obstructive bb pulmonary disease, unspecified; Combined systolic (congestive) and diastolic (congestive) heart failure. Condition is Stable. Forms are Medication Reconciliation Form, Thank You Letter, Antibiotic Education, Prescription Opioid Use. Follow up: Emergency Department; When: As needed; Reason: Worsening of condition. Follow up: Private Physician; When: 2 - 3 days; Reason: Recheck today's complaints, Continuance of care, Re-evaluation by your physician. kb
[2018-09-30 00:25] VITALS: BP 114/92; TEMP 97; O2SAT 96
--- NOTE | 2018-09-30 07:13 | RAD REPORT ---
EXAM DESCRIPTION: Neo Single View09/29/2018 9:23 pm CLINICAL HISTORY: Shortness of breath COMPARISON: September 27, 2018 FINDINGS: Mild bilateral pulmonary opacities have partially resolved. The heart remains enlarged. S mall pleural effusions suspected IMPRESSION: Improvement in mild CHF
== END 2018-09-30 00:01 | disposition home or self-care (01) ==
LOC: ER 20:41
DX: J44.9 Chronic obstructive pulmonary disease, unspecified (principal); I50.40 Unspecified combined systolic (congestive) and diastolic (congestive) heart failure; I11.0 Hypertensive heart disease with heart failure; I50.9 Heart failure, unspecified; C61 Malignant neoplasm of prostate; F17.210 Nicotine dependence, cigarettes, uncomplicated
CPT/HCPCS: 71045

== ENCOUNTER 2018-10-06 12:19 | Emergency (ER) | payer OTHER ==
--- OUTSIDE RECORDS SUMMARY | 2018-10-06 12:24 | XMS REPORT ---
:1950 [facility] [address] [place] [address] Care Team Providers Name Role Phone Unavailable [...] 1 View 2017-12-22 23:14:17 Patient: JOSTIN BURTON [facility] Date/Time12/22/2017 22:58 CDTReason for ExamCHF (Congestive [...]
[2018-10-06] MEDS ORDERED: IPRATROPIUM BROM 0.5MG/2.5ML ONE (12:47)
[2018-10-06] MEDS ORDERED: ALBUTEROL 2.5 MG/3 ML NEB SOL ONE (12:47)
[2018-10-06] MEDS ORDERED: FUROSEMIDE 40 MG TABLET ONE (12:47)
[2018-10-06] MEDS ORDERED: predniSONE 20 MG TAB ONE (12:47)
--- NOTE | 2018-10-06 13:07 | RAD REPORT ---
EXAM DESCRIPTION: Neo Single View10/06/2018 12:56 pm CLINICAL HISTORY: Shortness of breath COMPARISON: September 29, 2018 FINDINGS: Mild to moderate bilateral interstitial lung opacities without significant change. Heart remains enlarged. Small pleural effusions IMPRESSION: Mild to moderate CHF
--- NOTE | 2018-10-06 13:58 | EDPHYS ---
Physician Documentation [facility] Name: Mark Terrell Age: 67 yrs Sex: Male : 1950 Arrival Date: 10/06/2018 Time: 12:20 Bed 8 Private MD: ED Physician Puma Chi HPI: 10/06 12:47 This 67 yrs old Male presents to ER via EMS with complaints of Shortness Of pm1 Breath. 12:47 The patient has shortness of breath at rest. pm1 12:47 Onset: The symptoms/episode began/occurred 2 hour(s) ago. Duration: The symptoms are pm1 continuous. The patient's shortness of breath is aggravated by Not taking medications, ran out of Lasix two days ago. Associated signs and symptoms: Pertinent negatives: chest pain, non-productive cough, productive cough, fever, nausea, vomiting. Severity of symptoms: in the emergency department the symptoms are unchanged. The patient has experienced similar episodes in the past, multiple times. The patient has been recently seen at the [facility] Emergency Department, last week, for similar complaints. Historical: - Allergies: 12:32 Benadryl; tw2 - Home Meds: 12:32 NON-COMPLIANT [Active]; tw2 - PMHx: 12:32 Aneurysm; CHF; COPD; homeless; Hypertension; Prostate Cancer; tw2 - Immunization history:: Adult Immunizations unknown. - Social history:: Smoking status: Patient uses tobacco products, smokes one pack cigarettes per day. - Ebola Screening: : Patient denies travel to an Ebola-affected area in the 21 days before illness onset. ROS: 12:47 Constitutional: Negative for fever, chills, and weight loss, Eyes: Negative for injury, pm1 pain, redness, and discharge, ENT: Negative for injury, pain, and discharge, Neck: Negative for injury, pain, and swelling, Cardiovascular: Negative for chest pain, palpitations, and edema. 12:47 Abdomen/GI: Negative for abdominal pain, nausea, vomiting, diarrhea, and constipation, Back: Negative for injury and pain, : Negative for injury, bleeding, discharge, and swelling, MS/Extremity: Negative for injury and deformity, Skin: Negative for injury, rash, and discoloration, Neuro: Negative for headache, weakness, numbness, tingling, and seizure. 12:47 Respiratory: Positive for shortness of breath, Negative for cough, sputum production, wheezing. Exam: 12:47 Constitutional: This is a well developed, well nourished patient who is awake, alert, pm1 and in no acute distress. Head/Face: Normocephalic, atraumatic. Eyes: Pupils equal round and reactive to light, extra-ocular motions intact. Lids and lashes normal. Conjunctiva and sclera are non-icteric and not injected. Cornea within normal limits. Periorbital areas with no swelling, redness, or edema. ENT: Nares patent. No nasal discharge, no septal abnormalities noted. Tympanic membranes are normal and external auditory canals are clear. Oropharynx with no redness, swelling, or masses, exudates, or evidence of obstruction, uvula midline. Mucous membranes moist. Neck: Trachea midline, no thyromegaly or masses palpated, and no cervical lymphadenopathy. Supple, full range of motion without nuchal rigidity, or vertebral point tenderness. No Meningismus. 12:47 Chest/axilla: Normal chest wall appearance and motion. Nontender with no deformity. No lesions are appreciated. 12:47 Respiratory: Lungs have equal breath sounds bilaterally, clear to auscultation and percussion. No rales, rhonchi or wheezes noted. No increased work of breathing, no retractions or nasal flaring. Abdomen/GI: Soft, non-tender, with normal bowel sounds. No distension or tympany. No guarding or rebound. No evidence of tenderness throughout. Back: No spinal tenderness. No costovertebral tenderness. Full range of motion. Skin: Warm, dry with normal turgor. Normal color with no rashes, no lesions, and no evidence of cellulitis. MS/ Extremity: Pulses equal, no cyanosis. Neurovascular intact. Full, normal range of motion. 12:47 Cardiovascular: Rate: normal, Pulses: no pulse deficits are appreciated, Heart sounds: normal, Edema: pedal edema, 2+. 12:47 Neuro: Orientation: is normal, Motor: is normal, moves all fours. Vital Signs: 12:22 BP 145 / 115; Pulse 98; Resp 22; Temp 98.1(O); Pulse Ox 94% on R/A; Pain 0/10; tw2 13:27 BP 162 / 98; Pulse 100; Resp 22; Pulse Ox 98% ; sv 14:30 BP 177 / 104; Pulse 101; Resp 22; Pulse Ox 100% ; sv 14:47 BP 166 / 99; Pulse 100; Resp 20; Pulse Ox 94% on R/A; tw2 MDM: 12:35 Patient medically screened. pm1 13:33 Data reviewed: vital signs. Data interpreted: Pulse oximetry: on room air is 98 %. pm1 Interpretation: normal. 13:56 Counseling: I had a detailed discussion with the patient and/or guardian regarding: the pm1 historical points, exam findings, and any diagnostic results supporting the discharge/admit diagnosis, radiology results, the need for outpatient follow up, to return to the emergency department if symptoms worsen or persist or if there are any questions or concerns that arise at home. 13:56 ED course: Patient urinating with Lasix PO. Shortness of breath resolved with breathing pm1 treatment, Lasix and steroid. Will discharge patient with prescription for Lasix and for follow up with PCP/Cardiology. 10/06 12:40 Order name: Chest Single View XRAY; Complete Time: 13:23 pm1 Administered Medications: 12:46 Drug: LaSIX 40 mg Route: PO; tw2 14:48 Follow up: Response: No adverse reaction tw2 12:46 Drug: predniSONE 60 mg Route: PO; tw2 14:48 Follow up: Response: No adverse reaction tw2 12:47 Drug: Albuterol - atroVENT (3:1) (2.5 mg - 0.5 mg) 3 ml Route: Nebulizer; tw2 14:48 Follow up: Response: No adverse reaction tw2 Disposition: 10/07 06:57 Co-signature as Attending Physician, Puma Chi MD I agree with the assessment and kdr plan of care. Disposition: 10/06/18 13:57 Discharged to Home. Impression: Unspecified combined systolic (congestive) and diastolic (congestive) heart failure, Patient's other noncompliance with medication regimen. - Condition is Stable. - Medication Reconciliation Form, Thank You Letter, Antibiotic Education, Prescription Opioid Use form. - Follow up: Emergency Department; When: As needed; Reason: Worsening of condition. Follow up: Private Physician; When: 2 - 3 days; Reason: Recheck today's complaints, Continuance of care, Re-evaluation by your physician. - Problem is new. - Symptoms have improved. Signatures: Dispatcher [employer] EDMS Puma Chi MD MD kdr Marinas, Patrick, NP RN NEW GRAD pm1 Ana M Wagner RN RN tw2 Corrections: (The following items were deleted from the chart) 10/06 14:48 13:57 10/06/2018 13:57 Discharged to Home. Impression: Unspecified combined systolic tw2 (congestive) and diastolic (congestive) heart failure; Patient's other noncompliance with medication regimen. Condition is Stable. Forms are Medication Reconciliation Form, Thank You Letter, Antibiotic Education, Prescription Opioid Use. Follow up: Emergency Department; When: As needed; Reason: Worsening of condition. Follow up: Private Physician; When: 2 - 3 days; Reason: Recheck today's complaints, Continuance of care, Re-evaluation by your physician. Problem is new. Symptoms have improved. pm1
--- NOTE | 2018-10-06 13:58 | ER ---
Nurse's Notes [facility] Name: Mark Terrell Age: 67 yrs Sex: Male : 1950 Arrival Date: 10/06/2018 Time: 12:20 Bed 8 Private MD: Diagnosis: Unspecified combined systolic (congestive) and diastolic (congestive) heart failure;Patient's other noncompliance with medication regimen Presentation: 10/06 12:21 Presenting complaint: EMS states: pt c/o SOB x2 hours, 94-97% RA, vs stable. Transition tw2 of care: patient was not received from another setting of care. Onset of symptoms was October 06, 2018. Risk Assessment: Do you want to hurt yourself or someone else? Patient reports no desire to harm self or others. Initial Sepsis Screen: Does the patient meet any 2 criteria? No. Patient's initial sepsis screen is negative. Does the patient have a suspected source of infection? No. Patient's initial sepsis screen is negative. Care prior to arrival: None. 12:21 Method Of Arrival: EMS: [facility] tw2 12:22 Acuity: ARIEL 3 tw2 12:22 Note pt states "i havent been taking my medication". tw2 Triage Assessment: 12:24 General: Appears in no apparent distress. unkempt, Behavior is cooperative. Pain: tw2 Denies pain. EENT: No signs and/or symptoms were reported regarding the EENT system. Neuro: Level of Consciousness is awake, alert, obeys commands, Oriented to person, place, time, situation. Cardiovascular: Heart tones S1 S2 Patient's skin is warm and dry. Cardiovascular: Edema is 2+ to left midcalf, left ankle, right midcalf and right ankle. Respiratory: Reports shortness of breath at rest on exertion Airway is patent Respiratory effort is even, unlabored, Respiratory pattern is regular, symmetrical, Breath sounds are diminished bilaterally. Onset: The symptoms/episode began/occurred this morning, the patient has mild shortness of breath. GI: No signs and/or symptoms were reported involving the gastrointestinal system. Abdomen is round non-distended, Bowel sounds present X 4 quads. : No signs and/or symptoms were reported regarding the genitourinary system. Derm: No signs and/or symptoms reported regarding the dermatologic system. Musculoskeletal: Range of motion: intact in all extremities. Historical: - Allergies: 12:32 Benadryl; tw2 - Home Meds: 12:32 NON-COMPLIANT [Active]; tw2 - PMHx: 12:32 Aneurysm; CHF; COPD; homeless; Hypertension; Prostate Cancer; tw2 - Immunization history:: Adult Immunizations unknown. - Social history:: Smoking status: Patient uses tobacco products, smokes one pack cigarettes per day. - Ebola Screening: : Patient denies travel to an Ebola-affected area in the 21 days before illness onset. Screenin:25 Abuse screen: Denies threats or abuse. Nutritional screening: No deficits noted. tw2 Tuberculosis screening: No symptoms or risk factors identified. Fall Risk None identified. Assessment: 12:25 Reassessment: see triage assessment. tw2 12:32 Cardiovascular: Rhythm is sinus tachycardia. tw2 13:48 Reassessment: Patient appears in no apparent distress at this time. No changes from tw2 previously documented assessment. Patient and/or family updated on plan of care and expected duration. Pain level reassessed. 14:47 Reassessment: Patient appears in no apparent distress at this time. No changes from tw2 previously documented assessment. Patient and/or family updated on plan of care and expected duration. Pain level reassessed. Vital Signs: 12:22 BP 145 / 115; Pulse 98; Resp 22; Temp 98.1(O); Pulse Ox 94% on R/A; Pain 0/10; tw2 13:27 BP 162 / 98; Pulse 100; Resp 22; Pulse Ox 98% ; sv 14:30 BP 177 / 104; Pulse 101; Resp 22; Pulse Ox 100% ; sv 14:47 BP 166 / 99; Pulse 100; Resp 20; Pulse Ox 94% on R/A; tw2 ED Course: 12:20 Patient arrived in ED. tw2 12:20 Bed in low position. Call light in reach. Side rails up X 1. monitor worker on. Pulse tw2 ox on. NIBP on. Warm blanket given. 12:22 Rj Arnold NP is PHCP. pm1 12:22 Puma Chi MD is Attending Physician. pm1 12:22 Triage completed. tw2 12:24 Arm band placed on. tw2 12:32 Ana M Wagner RN is Primary Nurse. tw2 12:48 X-ray(s) taken. sv 12:55 Chest Single View XRAY In Process Unspecified. EDMS 14:47 No provider procedures requiring assistance completed. Patient did not have IV access tw2 during this emergency room visit. Administered Medications: 12:46 Drug: LaSIX 40 mg Route: PO; tw2 14:48 Follow up: Response: No adverse reaction tw2 12:46 Drug: predniSONE 60 mg Route: PO; tw2 14:48 Follow up: Response: No adverse reaction tw2 12:47 Drug: Albuterol - atroVENT (3:1) (2.5 mg - 0.5 mg) 3 ml Route: Nebulizer; tw2 14:48 Follow up: Response: No adverse reaction tw2 Output: 14:47 Urine: 400ml (Voided); Total: 400ml. tw2 Outcome: 13:57 Discharge ordered by MD. pm1 14:47 Discharged to home via wheelchair. tw2 14:47 Condition: stable 14:47 Discharge instructions given to patient, Instructed on discharge instructions, follow up and referral plans. medication usage, Demonstrated understanding of instructions, follow-up care, medications, Prescriptions given X 1. 14:48 Patient left the ED. tw2 Signatures: Dispatcher [employer] EDNati Morin RN RN sv Marinas, Patrick, NP STITCH BONDING MACHINE TENDER pm1 Ana M Wagner RN RN tw2
[2018-10-06 14:53] VITALS: TEMP 98.1
[2018-10-06 14:57] VITALS: BP 166/99; O2SAT 94
== END 2018-10-06 14:48 | disposition home or self-care (01) ==
LOC: ER 12:19
DX: I50.40 Unspecified combined systolic (congestive) and diastolic (congestive) heart failure (principal); Z91.14 Patient's other noncompliance with medication regimen; J44.9 Chronic obstructive pulmonary disease, unspecified; I10 Essential (primary) hypertension; C61 Malignant neoplasm of prostate; I50.9 Heart failure, unspecified; F17.210 Nicotine dependence, cigarettes, uncomplicated; Z88.8 Allergy status to other drugs, medicaments and biological substances
CPT/HCPCS: 71045; 94640; 99285; J7512

== ENCOUNTER 2018-10-14 15:12 | Inpatient (IN) | payer OTHER ==
[2018-10-14] MEDS ORDERED: IPRATROPIUM BROM 0.5MG/2.5ML ONE (15:24)
[2018-10-14] MEDS ORDERED: METHYLPREDNISOLONE 125 MG INJ ONE (15:24)
[2018-10-14] MEDS ORDERED: ALBUTEROL 2.5 MG/3 ML NEB SOL ONE (15:24)
--- OUTSIDE RECORDS SUMMARY | 2018-10-14 15:27 | XMS REPORT ---
:1950 [facility] [address] [place] [address] Care Team Providers Name Role Phone Unavailable [...] 1 View 2017-12-22 23:14:17 Patient: [facility] Date/Time12/22/2017 22:58 [...]
[2018-10-14 15:46] LABS: Absolute Lymphocytes (CBC) 1.8 K/uL (0.7-4.9); Hematocrit 33.4 % (39.6-49.0); Lymphocytes % 21.4 % (15.3-44.8); MPV 9.7 fL (7.6-11.3); RBC Red Blood Cell Count 6.01 M/uL (4.33-5.43)
[2018-10-14 15:48] LABS: Protime INR 1.52
[2018-10-14 16:05] LABS: Bilirubin Direct 0.8 mg/dL (0-0.2); Bilirubin Total 1.9 mg/dL (0.2-1.0); Magnesium 2.2 mg/dL (1.8-2.4); Potassium 3.4 mmol/L (3.5-5.1); Protein, Total 5.9 g/dL (6.4-8.2)
--- NOTE | 2018-10-14 16:05 | EKG ---
Test Date: 2018-10-14 Test Time: 15:42:25 Demand Equipment Repairer: JOHANA MEASUREMENT RESULTS: Intervals: Rate: 97 WV: 154 QRSD: 116 QT: 402 QTc: 510 Petroleum: P: 87 WV: 154 QRS: 120 T: -5 INTERPRETIVE STATEMENTS: Sinus rhythm with occasional premature ventricular complexes non specific T wave abnormality Right axis deviation Prolonged QT Abnormal ECG Compared to ECG 09/27/2018 23:54:24 t-wave abnormality still present Sinus tachycardia no longer present Electronically Signed On 10-14-18 16:04:53 CDT by Jitendra Willams
[2018-10-14 16:32] LABS: Blood Morphology Comment NOTED (NOT SEEN); Platelet Estimate ADEQ
[2018-10-14 16:33] LABS: Anisocytosis 2+; Elliptocytes 1+; Hypochromasia 3+; Poikilocytosis 1+; Polychromasia 1+; Target Cells 1+
[2018-10-14] MEDS ORDERED: ASPIRIN 81 MG CHEWABLE TABLET ONE (16:33)
[2018-10-14] MEDS ORDERED: FUROSEMIDE 40 MG/4 ML VIAL ONE (16:33)
--- NOTE | 2018-10-14 17:04 | EDPHYS ---
Physician Documentation [facility] Name: Mark Terrell Age: 67 yrs Sex: Male : 1950 Arrival Date: 10/14/2018 Time: 15:11 Bed 6 Private MD: ED Physician Puma Chi HPI: 10/14 15:25 This 67 yrs old Male presents to ER via EMS with complaints of Shortness Of cp Breath. 15:25 The patient has shortness of breath at rest. cp 15:25 Onset: The symptoms/episode began/occurred gradually, and became worse today, EMS cp reports patient called when shortness of breath became worse after smoking cigarette. EMS reports oxygen sats were 72% on RA when they arrived. Associated signs and symptoms: Pertinent negatives: chest pain, productive cough, diaphoresis, dizziness, fever, hemoptysis, vomiting. Historical: - Allergies: 15:38 Benadryl; sg - Home Meds: 19:18 NON-COMPLIANT [Active]; cc3 - PMHx: 15:38 Aneurysm; CHF; COPD; homeless; Hypertension; Prostate Cancer; sg - PSHx: 15:38 Unable to obtain; sg - Immunization history:: Adult Immunizations not up to date. - Social history:: Smoking status: Patient uses tobacco products. - Ebola Screening: : Patient negative for fever greater than or equal to 101.5 degrees Fahrenheit, and additional compatible Ebola Virus Disease symptoms Patient denies exposure to infectious person Patient denies travel to an Ebola-affected area in the 21 days before illness onset No symptoms or risks identified at this time. ROS: 15:30 Constitutional: Negative for body aches, chills, fever, poor PO intake. cp 15:30 Eyes: Negative for injury, pain, redness, and discharge. cp 15:30 ENT: Negative for drainage from ear(s), ear pain, sore throat, difficulty swallowing, difficulty handling secretions. 15:30 Cardiovascular: Positive for edema, Negative for chest pain, palpitations. 15:30 Respiratory: Positive for shortness of breath, at rest. Negative for cough. 15:30 Abdomen/GI: Negative for abdominal pain, nausea, vomiting, and diarrhea. 15:30 Back: Negative for pain at rest, pain with movement. 15:30 : Negative for urinary symptoms. 15:30 Skin: Negative for cellulitis, rash. 15:30 Neuro: Negative for altered mental status, dizziness, headache, syncope, weakness. 15:30 All other systems are negative. Exam: 15:45 Constitutional: The patient appears alert, awake, non-diaphoretic, non-toxic, well cp developed, well nourished, in obvious distress, mildly distressed. 15:45 Head/Face: Normocephalic, atraumatic. cp 15:45 Eyes: Periorbital structures: appear normal, Pupils: equal, round, and reactive to light and accomodation, Extraocular movements: intact throughout, Conjunctiva: normal, no exudate, no injection, Sclera: no appreciated abnormality, Lids and lashes: appear normal, bilaterally. 15:45 ENT: External ear(s): are unremarkable, Ear canal(s): are normal, clear, TM's: dullness, bilaterally, Nose: is normal, Mouth: Lips: moist, Oral mucosa: moist, Posterior pharynx: Airway: no evidence of obstruction, patent. 15:45 Neck: ROM/movement: is normal, is supple, without pain, no range of motions limitations, no meningismus, no nuchal rigidity. 15:45 Chest/axilla: Inspection: normal, Palpation: is normal, no crepitus, no tenderness. 15:45 Cardiovascular: Rate: normal, Rhythm: regular, Edema: ankle edema, that is mild, JVD: is not appreciated. 15:45 Respiratory: mild respiratory distress is noted, Respirations: labored breathing, that is moderate, shallow respirations, that is moderate, tachypnea, that is mild, Breath sounds: decreased breath sounds, that are mild, throughout, stridor, is not appreciated, wheezing: is not appreciated. 15:45 Abdomen/GI: Inspection: abdomen appears normal, Bowel sounds: active, all quadrants, Palpation: abdomen is soft and non-tender, in all quadrants, rebound tenderness, is not appreciated, voluntary guarding, is not appreciated, involuntary guarding, is not appreciated. 15:45 Back: pain, is absent, ROM is normal. 15:45 Skin: no rash present. 15:45 Neuro: Orientation: to person, place \T\ time. Mentation: is normal, Cerebellar function: is grossly normal, Motor: moves all fours, strength is normal. 15:50 ECG was reviewed by the Attending Physician. cp Vital Signs: 15:37 BP 124 / 84; Pulse 92; Resp 16; Temp 97.2; Pulse Ox 100% ; Weight 79.38 kg; Pain 6/10; sg 17:45 BP 124 / 82; Pulse 90; Resp 20; Temp 97.2; Pulse Ox 100% on 4 lpm NC; sg 18:55 BP 146 / 95; Pulse 107; Resp 18; Pulse Ox 100% ; sg 19:20 BP 160 / 86; Pulse 89; Resp 21 S; Temp 97.7(O); Pulse Ox 96% on 2 lpm NC; Pain 0/10; cc3 20:34 BP 140 / 98; Pulse 89; Resp 17 S; Pulse Ox 96% on 2 lpm NC; cc3 21:06 BP 136 / 97; Pulse 92; Resp 20 S; Pulse Ox 96% on 2 lpm NC; Pain 0/10; cc3 MDM: 15:27 Patient medically screened. cp 15:30 Differential diagnosis: Bronchitis CHF exacerbation, Chronic Obstructive Pulmonary cp Disease Myocardial Infarction pneumonia, pulmonary edema, Pulmonary Embolism Sepsis Unstable Angina. 16:51 Data reviewed: vital signs, nurses notes, lab test result(s), EKG, radiologic studies, cp plain films, I have discussed the patient's presentation/case with the attending Emergency Department Physician;. Test interpretation: by ED physician or midlevel provider: ECG. Physician consultation: Arya Quiroz MD was called at 16:52, was contacted at 16:52, regarding admission, to the telemetry unit. patient's condition. 10/14 15:21 Order name: Basic Metabolic Panel 10/14 15: Order name: CBC with Diff; Complete Time: 16:49 cp 10/14 16:07 Interpretation: Normal except: RBC 6.01; HGB 9.6; HCT 33.4; MCV 55.6; MCH 15.9; MCHC cp 28.6; RDW 22.3; MN% 18.1; MNA 1.5. 10/14 15:21 Order name: LFT's; Complete Time: 16:07 10/14 16:07 Interpretation: Normal except: BILIT 1.9; BILID 0.8; TP 5.9; ALB 3.0; A/G 1.0. cp 10/14 15:21 Order name: Magnesium; Complete Time: 16:07 cp 10/14 15:21 Order name: NT PRO-BNP; Complete Time: 16:07 cp 10/14 15:21 Order name: PT-INR; Complete Time: 16:07 cp 10/14 15:21 Order name: XRAY Chest (1 view) cp 10/14 15:22 Order name: Basic Metabolic Panel; Complete Time: 16:07 EDMS 10/14 15:54 Order name: Manual Differential; Complete Time: 16:49 EDMS 10/14 18:24 Order name: RAD EDMS 10/14 15:21 Order name: EKG; Complete Time: 15:23 cp 10/14 15:21 Order name: Cardiac monitoring; Complete Time: 15:35 cp 10/14 15:21 Order name: EKG - Nurse/Tech; Complete Time: 15:41 cp 10/14 15:21 Order name: IV Saline Lock; Complete Time: 15:35 cp 10/14 15:21 Order name: Labs collected and sent; Complete Time: 15:35 cp 10/14 15:21 Order name: O2 Per Protocol; Complete Time: 15:35 cp 10/14 15:21 Order name: O2 Sat Monitoring; Complete Time: 15:35 cp EC:50 Rate is 97 beats/min. Rhythm is regular. GA interval is normal. QRS interval is cp prolonged at 116 msec. QT interval is prolonged at 402 msec. Interpreted by me. Reviewed by me. Administered Medications: 15:27 Drug: Albuterol - atroVENT (3:1) (2.5 mg - 0.5 mg) 3 ml Route: Nebulizer; sg 19:18 Follow up: Response: No adverse reaction; Marked relief of symptoms cc3 15:39 Drug: SOLU-Medrol 125 mg Route: IVP; Site: right antecubital; sg 19:18 Follow up: Response: No adverse reaction cc3 16:15 Drug: Aspirin Chewable Tablet 324 mg Route: PO; sg 19:18 Follow up: Response: No adverse reaction cc3 17:28 Drug: Lasix 40 mg Route: IVP; Site: right hand; sg 19:18 Follow up: Response: No adverse reaction cc3 Disposition: 10/15 07:06 Co-signature as Attending Physician, Puma Chi MD I agree with the assessment and kdr plan of care. Disposition: 10/14/18 17:03 Hospitalization ordered by Arya Quiroz for Inpatient Admission. Preliminary diagnosis are Unspecified combined systolic (congestive) and diastolic (congestive) heart failure, Chronic obstructive pulmonary disease with (acute) exacerbation. - Bed requested for Telemetry/MedSurg (observation). - Status is Inpatient Admission. cc3 - Condition is Stable. - Problem is an acute exacerbation. - Symptoms have improved. UTI on Admission? No Signatures: Dispatcher [employer] EDMS Keith Gonsalves RN RN sg Rittger, Kevin, MD MD [facility] Satish Michel PA PA cp Lupe, Beba mw2 Maria De Jesus Mckee cc3 Corrections: (The following items were deleted from the chart) 10/14 18:00 17:03 Hospitalization Ordered by Arya Quiroz MD for Observation. Preliminary diagnosis cp is Unspecified combined systolic (congestive) and diastolic (congestive) heart failure; Chronic obstructive pulmonary disease with (acute) exacerbation. Bed requested for Telemetry/MedSurg (observation). Status is Observation. Condition is Stable. Problem is an acute exacerbation. Symptoms have improved. UTI on Admission? No. cp 20:41 18:00 10/14/2018 17:03 Hospitalization Ordered by Arya Quiroz MD for Inpatient mw2 Admission. Preliminary diagnosis is Unspecified combined systolic (congestive) and diastolic (congestive) heart failure; Chronic obstructive pulmonary disease with (acute) exacerbation. Bed requested for Telemetry/MedSurg (observation). Status is Inpatient Admission. Condition is Stable. Problem is an acute exacerbation. Symptoms have improved. UTI on Admission? No. cp 21:34 20:41 10/14/2018 17:03 Hospitalization Ordered by Arya Quiroz MD for Inpatient cc3 Admission. Preliminary diagnosis is Unspecified combined systolic (congestive) and diastolic (congestive) heart failure; Chronic obstructive pulmonary disease with (acute) exacerbation. Bed requested for Telemetry/MedSurg (observation). Status is Inpatient Admission. Condition is Stable. Problem is an acute exacerbation. Symptoms have improved. UTI on Admission? No. mw2
--- NOTE | 2018-10-14 17:04 | ER ---
Nurse's Notes [facility] Name: Mark Terrell Age: 67 yrs Sex: Male : 1950 Arrival Date: 10/14/2018 Time: 15:11 Bed 6 Private MD: Diagnosis: Unspecified combined systolic (congestive) and diastolic (congestive) heart failure;Chronic obstructive pulmonary disease with (acute) exacerbation Presentation: 10/14 15:11 Presenting complaint: EMS states: pt experiencing shortness of breath with chest sg discomfort, EMS reports having spo2 of 92 % on room air, pt placed on albuterol and atrovent breathing treatment with saturation improved to 98 %. Transition of care: patient was not received from another setting of care. Onset of symptoms was October 14, 2018. Risk Assessment: Do you want to hurt yourself or someone else? Patient reports no desire to harm self or others. Initial Sepsis Screen: Does the patient meet any 2 criteria? RR > 20 per min. No. Patient's initial sepsis screen is negative. Does the patient have a suspected source of infection? No. Patient's initial sepsis screen is negative. Care prior to arrival: None. 15:11 Method Of Arrival: EMS: [facility] sg 15:11 Acuity: ARIEL 3 sg Triage Assessment: 19:18 General: Appears in no apparent distress. comfortable. Respiratory: Reports shortness cc3 of breath at rest on exertion since today Onset: The symptoms/episode began/occurred today, the patient reports symptoms have resolved. Historical: - Allergies: 15:38 Benadryl; sg - Home Meds: 19:18 NON-COMPLIANT [Active]; cc3 - PMHx: 15:38 Aneurysm; CHF; COPD; homeless; Hypertension; Prostate Cancer; sg - PSHx: 15:38 Unable to obtain; sg - Immunization history:: Adult Immunizations not up to date. - Social history:: Smoking status: Patient uses tobacco products. - Ebola Screening: : Patient negative for fever greater than or equal to 101.5 degrees Fahrenheit, and additional compatible Ebola Virus Disease symptoms Patient denies exposure to infectious person Patient denies travel to an Ebola-affected area in the 21 days before illness onset No symptoms or risks identified at this time. Screenin:30 Abuse screen: Denies threats or abuse. Denies injuries from another. Nutritional sg screening: No deficits noted. Tuberculosis screening: No symptoms or risk factors identified. Never had TB. Fall Risk None identified. Assessment: 15:31 General: Appears in no apparent distress. well groomed, well developed, well nourished, sg Behavior is calm, cooperative, appropriate for age. Pain: Complains of pain in chest Quality of pain is described as tight and squeezing that is intermittent. Neuro: Level of Consciousness is awake, alert, obeys commands, Oriented to person, place, time, Speech is normal. Cardiovascular: Capillary refill is brisk in bilateral fingers Patient's skin is warm and dry. Chest pain is denied. Cardiovascular: Heart tones S1 S2 present. Respiratory: Airway is patent Respiratory effort is even, labored, shallow, Respiratory pattern is symmetrical, tachypnea Breath sounds are diminished in right posterior lower lobe. GI: Abdomen is round non-distended. : No signs and/or symptoms were reported regarding the genitourinary system. EENT: No signs and/or symptoms were reported regarding the EENT system. Derm: Skin is pink, warm \\T\\ dry. Musculoskeletal: Circulation, motion, and sensation intact. Range of motion: intact in all extremities. 15:35 Reassessment: Patient appears in no apparent distress at this time. pt reports painful sg wound on his left buttock, will continue to monitor. 15:35 Cardiovascular: Edema is 2+ to bilateral arms, bilater lower extremities. sg 16:00 Reassessment: Patient appears in no apparent distress at this time. pt breathing sg treatment complete, switched to o2 vai NC at 4 lpm, o2 saturation on room air noted to be 89 %, pt placed to NC and o2 saturation improved to 97 % at 4 lpm NC, NAOMIE ADAMES notified. 17:43 Reassessment: Patient appears in no apparent distress at this time. Patient and/or sg family updated on plan of care and expected duration. Pain level reassessed. pt reports still feels short of breath and having " bubbles in my throat", airway appears patent, pt breathing well at this time Patient states symptoms have improved. 18:56 Reassessment: pt urinated on the floor. sg 19:20 Reassessment: Patient appears in no apparent distress at this time. Patient and/or cc3 family updated on plan of care and expected duration. Pain level reassessed. Patient is alert, oriented x 3, equal unlabored respirations, skin warm/dry/pink. Received this male patient from morning shift LASHAY Parker as a case of shortness of breath for admission. With IV cannula gauge 24 at the right hand saline locked. Patient denies pain at this time. Patient states feeling better. Patient states symptoms have improved. General: Appears in no apparent distress. comfortable, Behavior is calm, cooperative, appropriate for age. Pain: Denies pain. Neuro: Level of Consciousness is awake, alert, obeys commands, Oriented to person, place, time, situation, Appropriate for age. Cardiovascular: Heart tones S1 S2 present Capillary refill is brisk in bilateral fingers Patient's skin is warm and dry. Edema is 2+ to bilateral upper and lower extremities Rhythm is sinus rhythm. Respiratory: Airway is patent Respiratory effort is even, unlabored, Respiratory pattern is symmetrical, tachypnea. GI: Abdomen is round non-distended. : No signs and/or symptoms were reported regarding the genitourinary system. EENT: No signs and/or symptoms were reported regarding the EENT system. Derm: Skin is intact, is fragile, Skin is pink, warm \\T\\ dry. Musculoskeletal: Circulation, motion, and sensation intact. Range of motion: intact in all extremities. 20:34 Reassessment: Patient appears in no apparent distress at this time. Patient and/or cc3 family updated on plan of care and expected duration. Pain level reassessed. Patient is alert, oriented x 3, equal unlabored respirations, skin warm/dry/pink. 20:52 Reassessment: Room available in [facility], called for report but was told by in charge Denis del toro that LASHAY Joy will just call me back. 21:00 Reassessment: Patient appears in no apparent distress at this time. Patient and/or cc3 family updated on plan of care and expected duration. Pain level reassessed. Patient is alert, oriented x 3, equal unlabored respirations, skin warm/dry/pink. LASHAY Dubois called and report handed over to her for continuity of care and management. Patient denies pain at this time. 21:30 Reassessment: Patient appears in no apparent distress at this time. Patient and/or cc3 family updated on plan of care and expected duration. Pain level reassessed. Patient is alert, oriented x 3, equal unlabored respirations, skin warm/dry/pink. Patient left ER for admission vitally stable by wheelchair escorted by bench lay out technician Chito. No valuables left in the patient's room. Patient denies pain at this time. Patient states symptoms have improved. Vital Signs: 15:37 BP 124 / 84; Pulse 92; Resp 16; Temp 97.2; Pulse Ox 100% ; Weight 79.38 kg; Pain 6/10; sg 17:45 BP 124 / 82; Pulse 90; Resp 20; Temp 97.2; Pulse Ox 100% on 4 lpm NC; sg 18:55 BP 146 / 95; Pulse 107; Resp 18; Pulse Ox 100% ; sg 19:20 BP 160 / 86; Pulse 89; Resp 21 S; Temp 97.7(O); Pulse Ox 96% on 2 lpm NC; Pain 0/10; cc3 20:34 BP 140 / 98; Pulse 89; Resp 17 S; Pulse Ox 96% on 2 lpm NC; cc3 21:06 BP 136 / 97; Pulse 92; Resp 20 S; Pulse Ox 96% on 2 lpm NC; Pain 0/10; cc3 ED Course: 15:11 Patient arrived in ED. sg 15:11 Jaime Hough PA is PHCP. [facility] 15:11 Puma Chi MD is Attending Physician. [facility] 15:11 PHCP role handed off by Jaime Hough PA cp 15:11 Satish Michel PA is PHCP. cp 15:13 Triage completed. sg 15:13 Arm band placed on. sg 15:30 Patient has correct armband on for positive identification. Placed in gown. Bed in low sg position. Side rails up X2. threat monitoring analyst on. Pulse ox on. NIBP on. Warm blanket given. a urinal has been placed within reach, a call light has been placed within reach Head of bed elevated. 15:34 Initial lab(s) drawn, by me, sent to lab. Inserted saline lock: 22 gauge in right jb1 antecubital area, using aseptic technique. Blood collected. 15:47 EKG done, by in flight technician. reviewed by Satish ADAMES. 3 16:08 Keith Gonsalves, RN is Primary Nurse. sg 16:08 Wound care: to type 2 pressure ulcer that is not draining at this time, reports sg painful, on left buttock, cleaned and dressed at this time. 17:00 22 G in RAC discontinued due to infiltration prior to administration of IV lasix. sg 17:02 Arya Quiroz MD is Hospitalizing Provider. cp 17:28 Inserted saline lock: 24 gauge in right hand, using aseptic technique. sg 18:00 Admitting physician to see patient. sg 21:00 No provider procedures requiring assistance completed. Patient admitted, IV remains in cc3 place. Administered Medications: 15:27 Drug: Albuterol - atroVENT (3:1) (2.5 mg - 0.5 mg) 3 ml Route: Nebulizer; sg 19:18 Follow up: Response: No adverse reaction; Marked relief of symptoms cc3 15:39 Drug: SOLU-Medrol 125 mg Route: IVP; Site: right antecubital; sg 19:18 Follow up: Response: No adverse reaction cc3 16:15 Drug: Aspirin Chewable Tablet 324 mg Route: PO; sg 19:18 Follow up: Response: No adverse reaction cc3 17:28 Drug: Lasix 40 mg Route: IVP; Site: right hand; sg 19:18 Follow up: Response: No adverse reaction cc3 Output: 16:10 Urine: 200ml (Voided); Total: 200ml. sg Outcome: 17:03 Decision to Hospitalize by Provider. cp 21:00 Admitted to Tele accompanied by tech, via stretcher, room 405, with oxygen, with chart, cc3 Report called to LASHAY Dubois 21:00 Condition: stable 21:00 Instructed on the need for admit, Demonstrated understanding of instructions. 21:34 Patient left the ED. cc3 Signatures: Matthew Colón Steven RN RN sg Jaime Hough PA PA jmm Page, Corey, PA PA cp Montes, Shakira sm3 Maria De Jesus Mckee cc3 Corrections: (The following items were deleted from the chart) 21:07 19:20 BP 160 / 86; Pulse 89bpm; Resp 21bpm; Spontaneous; Pulse Ox 96% 2 lpm Nasal cc3 Cannula; Temp 97.7F Oral; cc3 21:10 21:00 Reassessment: Patient appears in no apparent distress at this time. Patient cc3 and/or family updated on plan of care and expected duration. Pain level reassessed. Patient is alert, oriented x 3, equal unlabored respirations, skin warm/dry/pink. LASHAY Joy called and report handed over to her for continuity of care and management. Patient denies pain at this time. cc3
--- NOTE | 2018-10-14 17:19 | P.HP ---
Certification for Inpatient Patient admitted to: Inpatient With expected LOS: >2 Midnights Practitioner: I am a practitioner with admitting privileges, knowledge of patient current condition, hospital course, and medical plan of care. Services: Services provided to patient in accordance with Admission requirements found in Title 42 Section 412.3 of the Code of Federal Regulations Patient History Date of Service: 10/14/18 Reason for admission: Shortness of breath History of Present Illness: Mr Terrell is a 67 years old male, well known for our service due to recurrent visit to ED and frequent admissions due to CHF, since the patient is not compliant with his medication. He comes to ER multiple times and usually improves with ER initial treatment and is released without admission, however, today the patient remained dyspneic, despite diuretics and nitro patch. During this episode, he started with chest pain and shortness of breath and therefore EMS was called. Initially, he was 72% on RA and therefore was brought to the ER. Despite initial treatment, he continued to be hypoxic and therefore we were called for an admission. In the ED, 124/84, 92, RR 16, afebrile at 97.2, and satting well on 2-3 L O2. His labs were remarkable for creatinine was elevated to 1.34, elevated total bili and direct bili. He also had elevated BNP. He got IV lasix, breathing treatments and supportive care. At the time of my exam, he was aaox3, in mild distress but hemodynamically stable. Allergies poison chandana extract Allergy (Intermediate, Verified 06/28/18 01:19) Hives diphenhydramine HCl [From Benadryl] Adverse Reaction (Intermediate, Verified 01:19) Hives Home medications list reviewed: Yes Home Medications: Albuterol Sulfate [Proair Hfa] 2 puff IH TID PRN #1 hfa.aer.[email or web address] 09/07/18 Furosemide [Lasix] 80 mg PO BID #60 tablet 09/07/18 Mometasone/Formoterol [Dulera 100 Mcg/5 Mcg Inhaler] 2 puff IH BID #1 inhaler RX: Lisinopril 10 mg PO DAILY #30 tablet 09/07/18 RX: Metoprolol Tartrate [Lopressor*] 25 mg PO BID #60 tab 09/07/18 - Past Medical/Surgical History Diabetic: No -: History of prostate cancer -: Hypertension -: History of brain aneurysm requiring surgery -: CHF, systolic dysfunction -: COPD -: Tobacco abuse -: DM 2 -: Coronary disease, stents x3 to LAD/RCA(Feb 2016) -: Anemia of chronic disease -: GERD -: Hyperlipidemia -: hyperlipidemia -: Prostate surgery -: Brain aneurysm surgery -: Toe surgery R. great toe/childhood -: Heart catheterization-3stents LAD/RCA Psychosocial/ Personal History: Patient is homeless. He is single. He has no children. 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 - Family History Father -: Cancer Notes: brain cancer Mother -: Cancer Notes: pancreatic cancer Brother -: Cancer Notes: lung cancer - Social History Alcohol use: No CD- Drugs: No Caffeine use: Yes Physical Examination - Physical Exam General: Alert, Oriented x3, Mild distress HEENT: Atraumatic, PERRLA, Mucous membr. moist/pink, EOMI, Sclerae nonicteric Neck: Supple, 2+ carotid pulse no bruit, No LAD, Without JVD or thyroid abnormality Respiratory: Diminished, Crackles/rales Cardiovascular: Regular rate/rhythm, Normal S1 S2 Gastrointestinal: Normal bowel sounds, No tenderness Musculoskeletal: No tenderness Integumentary: No rashes Neurological: Normal gait, Normal speech, Normal strength at 5/5 x4 extr, Normal tone, Normal affect Lymphatics: No axilla or inguinal lymphadenopathy - Studies Laboratory Data (last 24 hrs) 10/14/18 15:30: PT 17.6 H, INR 1.52 10/14/18 15:30: WBC 8.6, Hgb 9.6 L, Hct 33.4 L, Plt Count 164 10/14/18 15:30: Sodium 141, Potassium 3.4 L, BUN 17, Creatinine 1.34 H, Glucose 165 H, Magnesium 2.2, Total Bilirubin 1.9 H, AST 16, ALT 19, Alkaline Phosphatase 106 Assessment and Plan - Problems (Diagnosis) (1) Acute dyspnea Onset Date: 11/15/16 Current Visit: No Status: Acute (2) Acute on chronic systolic (congestive) heart failure Onset Date: 09/01/17 Current Visit: No Status: Acute (3) CHF (congestive heart failure) Onset Date: 02/17/17 Current Visit: No Status: Acute (4) CHF exacerbation Onset Date: 08/05/17 Current Visit: No Status: Acute Qualifiers: Heart failure type: combined systolic and diastolic Qualified Code(s): I50.43 - Acute on chronic combined systolic (congestive) and diastolic ( congestive) heart failure (5) COPD exacerbation Onset Date: 12/19/15 Current Visit: No Status: Acute (6) Chest pain Onset Date: 02/05/16 Current Visit: No Status: Acute Qualifiers: Chest pain type: unspecified Qualified Code(s): R07.9 - Chest pain, unspecified (7) Elevated LFTs Onset Date: 04/22/18 Current Visit: No Status: Acute (8) Renal insufficiency Onset Date: 03/18/16 Current Visit: No Status: Acute (9) Nicotine dependence Onset Date: 04/03/17 Current Visit: No Status: Chronic Qualifiers: Nicotine product type: cigarettes Substance use status: uncomplicated Qualified Code(s): F17.210 - Nicotine dependence, cigarettes, uncomplicated (10) Noncompliance Onset Date: 03/18/16 Current Visit: No Status: Chronic - Plan Start aggressive IV diuresis. Strict monitoring of input and output, daily weights. Continue heart healthy diet with fluid restriction Patient does need long-term assistance due to his homelessness. Patient refuses to a fdc. States that he prefers to be homeless as he does not like to be around people. He continues to not pickle sorter his medications due to financial restraints. Social work consulted. Continue monitoring and supportive care with oxygen as needed. Disposition: Admit to the floor with tele. Continue IV lasix, supportive care. Discharge Plan: Home Plan to discharge in: 48 Hours - Advance Directives Does patient have a Living Will: No Does patient have a Durable POA for Healthcare: No
--- NOTE | 2018-10-14 18:23 | RAD REPORT ---
EXAM DESCRIPTION: Neo Single View10/14/2018 5:56 pm CLINICAL HISTORY: sob COMPARISON: October 06, 2018 FINDINGS: [id number] bilateral pulmonary opacities. The heart is moderately enlarged IMPRESSION: CHF
[2018-10-14 22:08] VITALS: BMI 26.2
[2018-10-14] MEDS ORDERED: ONDANSETRON 4 MG/2 ML VIAL IV PRN (22:23)
[2018-10-14] MEDS: ALBUTEROL 2.5 MG/3 ML NEB SOL NEB SCH (22:45)
[2018-10-14] MEDS: IPRATROPIUM BROM 0.5MG/2.5ML NEB SCH (22:45)
[2018-10-15] MEDS: IPRATROPIUM BROM 0.5MG/2.5ML NEB SCH ×4 (02:50→19:35)
[2018-10-15] MEDS: ALBUTEROL 2.5 MG/3 ML NEB SOL NEB SCH ×4 (02:50→19:35)
[2018-10-15 06:24] LABS: Absolute Lymphocytes (CBC) 1.1 K/uL (0.7-4.9); Basophils % 0.1 % (0-1.3); Hematocrit 32.6 % (39.6-49.0); MPV 9.8 fL (7.6-11.3); RBC Red Blood Cell Count 5.75 M/uL (4.33-5.43)
[2018-10-15 06:40] LABS: Bilirubin Total 1.3 mg/dL (0.2-1.0); Protein, Total 6.1 g/dL (6.4-8.2)
[2018-10-15] MEDS: FUROSEMIDE 40 MG/4 ML VIAL IV SCH ×2 (07:49→17:17)
[2018-10-15] MEDS: ENOXAPARIN 40 MG/0.4 ML SQ SCH (07:50)
[2018-10-15 08:19] LABS: Anisocytosis 2+; Blood Morphology Comment NOTED (NOT SEEN); Macrocytosis SLIGHT; Platelet Estimate ADEQ
[2018-10-15 08:20] LABS: Hypochromasia 3+; Polychromasia 2+
--- NOTE | 2018-10-15 13:50 | P.PN ---
Subjective Date of Service: 10/15/18 Chief Complaint: Shortness of breath Subjective: Improving Patient seen and examined at bedside. No family at bedside. Chart reviewed and case discussed with nursing staff. Reports improved breathing today, though not back to baseline yet. Continues to be slightly short of breath especially on exertion. Unable to complete a sentence without shortness of breath. No acute events noted overnight. Hemodynamically stable this morning. Review of Systems 10-point ROS is otherwise unremarkable Physical Examination - Vital Signs Temperature: 98.5 F Blood Pressure: 137/85 Pulse: 84 Respirations: 32 Pulse Ox (%): 98 - Physical Exam General: Alert, In no apparent distress, Oriented x3 HEENT: Atraumatic, PERRLA, EOMI Neck: Supple, JVD not distended Respiratory: Dull, Expiratory wheezes Cardiovascular: Regular rate/rhythm, Normal S1 S2 Gastrointestinal: Normal bowel sounds, No tenderness Musculoskeletal: No tenderness Integumentary: No rashes Neurological: Normal speech, Normal tone, Normal affect Lymphatics: No axilla or inguinal lymphadenopathy - Studies Laboratory Data (last 24 hrs) 10/14/18 15:30: PT 17.6 H, INR 1.52 10/14/18 15:30: WBC 8.6, Hgb 9.6 L, Hct 33.4 L, Plt Count 164 10/14/18 15:30: Sodium 141, Potassium 3.4 L, BUN 17, Creatinine 1.34 H, Glucose 165 H, Magnesium 2.2, Total Bilirubin 1.9 H, AST 16, ALT 19, Alkaline Phosphatase 106 Assessment And Plan - Current Problems (Diagnosis) (1) Acute dyspnea Onset Date: 11/15/16 Current Visit: No Status: Acute (2) Acute on chronic systolic (congestive) heart failure Onset Date: 09/01/17 Current Visit: No Status: Acute (3) CHF (congestive heart failure) Onset Date: 02/17/17 Current Visit: No Status: Acute (4) CHF exacerbation Onset Date: 08/05/17 Current Visit: No Status: Acute Qualifiers: Heart failure type: combined systolic and diastolic Qualified Code(s): I50.43 - Acute on chronic combined systolic (congestive) and diastolic ( congestive) heart failure (5) COPD exacerbation Onset Date: 12/19/15 Current Visit: No Status: Acute (6) Chest pain Onset Date: 02/05/16 Current Visit: No Status: Acute Qualifiers: Chest pain type: unspecified Qualified Code(s): R07.9 - Chest pain, unspecified (7) Elevated LFTs Onset Date: 04/22/18 Current Visit: No Status: Acute (8) Renal insufficiency Onset Date: 03/18/16 Current Visit: No Status: Acute (9) Nicotine dependence Onset Date: 04/03/17 Current Visit: No Status: Chronic Qualifiers: Nicotine product type: cigarettes Substance use status: uncomplicated Qualified Code(s): F17.210 - Nicotine dependence, cigarettes, uncomplicated (10) Noncompliance Onset Date: 03/18/16 Current Visit: No Status: Chronic - Plan Continue aggressive IV diuresis. Strict monitoring of input and output, daily weights. Continue heart healthy diet with fluid restriction Patient does need long-term assistance due to his homelessness. Patient refuses to a correction. States that he prefers to be homeless as he does not like to be around people. He continues to not picker his medications due to financial restraints. Social work on board. Continue monitoring and supportive care with oxygen as needed. Disposition: Continue IV lasix, supportive care. Anticipate discharge in the next 24 hr Discharge Plan: Home Plan to discharge in: 24 Hours
[2018-10-16] MEDS: IPRATROPIUM BROM 0.5MG/2.5ML NEB SCH ×4 (01:40→20:00)
[2018-10-16] MEDS: ALBUTEROL 2.5 MG/3 ML NEB SOL NEB SCH ×4 (01:40→20:00)
[2018-10-16 05:57] LABS: Absolute Lymphocytes (CBC) 1.9 K/uL (0.7-4.9); Basophils % 0.6 % (0-1.3); Hematocrit 32.7 % (39.6-49.0); Lymphocytes % 18.9 % (15.3-44.8); MPV 9.7 fL (7.6-11.3); RBC Red Blood Cell Count 5.82 M/uL (4.33-5.43)
[2018-10-16 06:21] LABS: Bilirubin Total 1.1 mg/dL (0.2-1.0); Phosphorus 2.8 mg/dL (2.5-4.9); Potassium 3.7 mmol/L (3.5-5.1); Protein, Total 5.9 g/dL (6.4-8.2)
[2018-10-16 06:55] LABS: Anisocytosis 2+; Blood Morphology Comment NOTED (NOT SEEN); Hypochromasia 3+; Platelet Estimate DECR
[2018-10-16 06:56] LABS: Ovalocytes 1+; Target Cells 1+
[2018-10-16] MEDS: FUROSEMIDE 40 MG/4 ML VIAL IV SCH ×2 (08:29→17:01)
[2018-10-16] MEDS: ENOXAPARIN 40 MG/0.4 ML SQ SCH (08:30)
[2018-10-16] MEDS ORDERED: POTASSIUM CL SA 10 MEQ TAB PO ONE (09:00)
[2018-10-16 10:22] LABS: Urine Appearance CLEAR; Urine Bilirubin NEGATIVE (NEG); Urine Blood NEGATIVE (NEG); Urine Color YELLOW; Urine Glucose NEGATIVE (NEG); Urine Protein NEGATIVE (NEG); Urine Specific Gravity <=1.005 (1.005-1.030); Urine Urobilinogen 0.2 mg/dL (0.2-1.0)
[2018-10-16 10:35] LABS: Urine Bacteria NONE SEEN /HPF (NONE SEEN); Urine Culture Reflex Order NOT NEEDED; Urine RBC <5 /HPF (NONE SEEN)
--- NOTE | 2018-10-16 12:22 | P.PN ---
Subjective Date of Service: 10/16/18 Chief Complaint: Shortness of breath Subjective: Improving Patient seen and examined at bedside. No family at bedside. Chart reviewed and case discussed with nursing staff. Reports improved breathing today, though not back to baseline yet. Continues to have increased work of breathing, especially on exertion. Still Unable to complete a sentence without shortness of breath. No acute events noted overnight. Hemodynamically stable this morning. Review of Systems 10-point ROS is otherwise unremarkable Physical Examination - Vital Signs Temperature: 99.0 F Blood Pressure: 161/94 Pulse: 94 Respirations: 18 Pulse Ox (%): 98 - Physical Exam General: Alert, In no apparent distress, Oriented x3 HEENT: Atraumatic, PERRLA, EOMI Neck: Supple, JVD not distended Respiratory: Diminished, Dull Cardiovascular: Regular rate/rhythm, Normal S1 S2 Gastrointestinal: Normal bowel sounds, No tenderness Musculoskeletal: No tenderness Integumentary: No rashes Neurological: Normal speech, Normal tone, Normal affect Lymphatics: No axilla or inguinal lymphadenopathy Assessment And Plan - Current Problems (Diagnosis) (1) Acute dyspnea Onset Date: 11/15/16 Current Visit: No Status: Acute (2) Acute on chronic systolic (congestive) heart failure Onset Date: 09/01/17 Current Visit: No Status: Acute (3) CHF (congestive heart failure) Onset Date: 02/17/17 Current Visit: No Status: Acute (4) CHF exacerbation Onset Date: 08/05/17 Current Visit: No Status: Acute Qualifiers: Heart failure type: combined systolic and diastolic Qualified Code(s): I50.43 - Acute on chronic combined systolic (congestive) and diastolic ( congestive) heart failure (5) COPD exacerbation Onset Date: 12/19/15 Current Visit: No Status: Acute (6) Chest pain Onset Date: 02/05/16 Current Visit: No Status: Acute Qualifiers: Chest pain type: unspecified Qualified Code(s): R07.9 - Chest pain, unspecified (7) Elevated LFTs Onset Date: 04/22/18 Current Visit: No Status: Acute (8) Renal insufficiency Onset Date: 03/18/16 Current Visit: No Status: Acute (9) Nicotine dependence Onset Date: 04/03/17 Current Visit: No Status: Chronic Qualifiers: Nicotine product type: cigarettes Substance use status: uncomplicated Qualified Code(s): F17.210 - Nicotine dependence, cigarettes, uncomplicated (10) Noncompliance Onset Date: 03/18/16 Current Visit: No Status: Chronic - Plan Continue aggressive IV diuresis. Strict monitoring of input and output, daily weights. Continue heart healthy diet with fluid restriction Patient does need long-term assistance due to his homelessness. Patient refuses to a retirement. States that he prefers to be homeless as he does not like to be around people. 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 Social work on board. Continue monitoring and supportive care with oxygen as needed. Disposition: Continue IV lasix, supportive care. Anticipate discharge in the next 24 hr Discharge Plan: Home Plan to discharge in: 24 Hours
[2018-10-17] MEDS: ALBUTEROL 2.5 MG/3 ML NEB SOL NEB SCH ×2 (02:00→07:40)
[2018-10-17] MEDS: IPRATROPIUM BROM 0.5MG/2.5ML NEB SCH ×4 (02:00→20:00)
[2018-10-17] MEDS ORDERED: MORPHINE 2 MG/ML SYR IV ONE (06:25)
[2018-10-17 06:32] LABS: Absolute Lymphocytes (CBC) 2.3 K/uL (0.7-4.9); Basophils % 0.8 % (0-1.3); Hematocrit 34.8 % (39.6-49.0); Lymphocytes % 22.2 % (15.3-44.8); MPV 9.7 fL (7.6-11.3); RBC Red Blood Cell Count 6.26 M/uL (4.33-5.43)
[2018-10-17 07:16] LABS: Albumin 3.3 g/dL (3.4-5.0); Bilirubin Total 1.4 mg/dL (0.2-1.0); Potassium 3.9 mmol/L (3.5-5.1); Protein, Total 6.7 g/dL (6.4-8.2)
[2018-10-17] MEDS ORDERED: POTASSIUM CL SA 10 MEQ TAB PO ONE (09:00)
[2018-10-17] MEDS: FUROSEMIDE 40 MG/4 ML VIAL IV SCH (09:26)
[2018-10-17] MEDS: ENOXAPARIN 40 MG/0.4 ML SQ SCH (09:26)
--- NOTE | 2018-10-17 11:09 | P.PN ---
Subjective Date of Service: 10/17/18 Chief Complaint: Shortness of breath Subjective: Improving (Patient is improving is homeless non compliant with his medication history of COPD congestive heart failure) Review of Systems General: Weakness Respiratory: Shortness of Breath Physical Examination - Vital Signs Temperature: 97.7 F Blood Pressure: 144/80 Pulse: 101 Respirations: 24 Pulse Ox (%): 98 - Physical Exam General: Alert, Oriented x3 Respiratory: Expiratory wheezes Cardiovascular: No edema, Normal S1 S2 Assessment & Plan - Problems (Diagnosis) (1) Acute on chronic systolic (congestive) heart failure Onset Date: 09/01/17 Current Visit: No Status: Acute Plan: Patient is 67 years of age non compliant homeless admitted with acute on chronic shortness of breath he has a chronic microcytosis with a normal ferritin level continue with bronchodilators Lasix vital signs are stable he also knees and need in a Olivier inhibitor t is homeless is prognosis is very poor and P was significantly elevated
[2018-10-17] MEDS: NICOTINE 21 MG/PAT TD SCH (14:30)
[2018-10-17] MEDS: LISINOPRIL 5 MG TAB PO SCH (14:30)
[2018-10-17] MEDS: ALBUTEROL 2.5 MG/3 ML NEB SOL NEB PRN (16:37)
--- NOTE | 2018-10-17 18:45 | RAD REPORT ---
EXAM DESCRIPTION: RAD - Chest Single View - 10/17/2018 6:00 pm CLINICAL HISTORY: shortness of breath Chest pain. COMPARISON: Chest Single View dated 10/14/2018; Chest Single View dated 10/06/2018; Chest Single View d ated 09/29/2018; Chest Single View dated 09/27/2018 FINDINGS: Portable technique limits examination quality. Mild interstitial pulmonary edema. Trace pleural effusions. The heart is moderately enlarged in size. Healed left posterior rib fractures. IMPRESSION: Mild CHF, unchanged since 10/14/2018.
[2018-10-17] MEDS: ARFORMOTEROL TARTRATE 15 MCG/2 ML VIAL.NEB NEB SCH (20:00)
[2018-10-17] MEDS: predniSONE 20 MG TAB PO SCH (20:14)
[2018-10-18] MEDS: IPRATROPIUM BROM 0.5MG/2.5ML NEB SCH ×2 (02:00→07:35)
[2018-10-18] MEDS: ARFORMOTEROL TARTRATE 15 MCG/2 ML VIAL.NEB NEB SCH (07:35)
[2018-10-18] MEDS: ALBUTEROL 2.5 MG/3 ML NEB SOL NEB PRN (07:35)
[2018-10-18 08:31] VITALS: O2SAT 91
[2018-10-18] MEDS: LISINOPRIL 5 MG TAB PO SCH (08:36)
[2018-10-18] MEDS: predniSONE 20 MG TAB PO SCH (08:36)
[2018-10-18] MEDS: ENOXAPARIN 40 MG/0.4 ML SQ SCH (09:00)
[2018-10-18] MEDS: NICOTINE 21 MG/PAT TD SCH (09:00)
[2018-10-18] MEDS ORDERED: FUROSEMIDE 40 MG TABLET PO SCH (09:00)
[2018-10-18 10:02] VITALS: BP 144/80; TEMP 97.7
--- NOTE | 2018-10-18 10:02 | P.DS ---
Admission Date: 10/14/18 (Hospitalist) Discharge Date: 10/18/18 Disposition: ROUTINE DISCHARGE Discharge Condition: FAIR Reason for Admission: Shortness of breath - Problems (1) Acute on chronic systolic (congestive) heart failure Onset Date: 09/01/17 Current Visit: No Status: Acute Brief History of Present Illness: Patient is 67 years of age recurrent hospital admissions due to noncompliance Hospital Course: Admitted to the hospital treated with bronchodilators steroids and diuretics is condition improved to the time of discharge alert oriented responsive cooperative feeling a lot better final signs all stable tolerating medications oxygenation satisfactory labs all reviewed is alert oriented responsive cooperative chest shows some wheezing cardiovascular system os sounds normal abdomen soft extremities 2+ edema this prognosis is very poor due to noncompliance is still continues to smoke plan to discharge him on lisinopril and low-dose prednisone Vital Signs/Physical Exam: Temp Pulse Resp BP Pulse Ox 98.4 F 95 H 28 H 122/78 100 10/18/18 08:00 10/18/18 08:00 10/18/18 08:00 10/18/18 08:00 10/18/18 08:00 Laboratory Data at Discharge: WBC 10.5 K/uL (4.3-10.9) 10/17/18 05:38 Hgb 9.7 g/dL (13.6-17.9) L 10/17/18 05:38 Hct 34.8 % (39.6-49.0) L 10/17/18 05:38 Plt Count 189 K/uL (152-406) D 10/17/18 05:38 PT 17.6 SECONDS (9.5-12.5) H 10/14/18 15:30 INR 1.52 10/14/18 15:30 Sodium 142 mmol/L (136-145) 10/18/18 06:05 Potassium 4.0 mmol/L (3.5-5.1) 10/18/18 06:05 BUN 24 mg/dL (7-18) H 10/18/18 06:05 Creatinine 1.22 mg/dL (0.55-1.3) 10/18/18 06:05 Glucose 191 mg/dL (74-106) H 10/18/18 06:05 Phosphorus 2.8 mg/dL (2.5-4.9) 10/16/18 05:42 Magnesium 2.2 mg/dL (1.8-2.4) 10/14/18 15:30 Total Bilirubin 1.4 mg/dL (0.2-1.0) H 10/17/18 05:38 AST 21 U/L (15-37) 10/17/18 05:38 ALT 21 U/L (12-78) 10/17/18 05:38 Alkaline Phosphatase 104 U/L (45-117) 10/17/18 05:38 Home Medications: Aspirin [Aspirin EC 81 MG] 81 mg PO DAILY 10/16/18 Furosemide [Lasix] 20 mg PO DAILY #30 tablet 10/18/18 Lisinopril [Prinivil*] 5 mg PO DAILY #30 tab 10/18/18 predniSONE [Deltasone*] 10 mg PO DAILY #30 tab 10/18/18 New Medications: Furosemide [Lasix] 20 mg PO DAILY #30 tablet Lisinopril [Prinivil*] 5 mg PO DAILY #30 tab predniSONE [Deltasone*] 10 mg PO DAILY #30 tab
== END 2018-10-18 11:35 | disposition home or self-care (01) | DRG 291 ==
LOC: ER 15:12 → ERHOLD 17:00 → 4TH 21:25
PROVIDERS: ADMIT Family Medicine; ATTEND Family Medicine
DX: I11.0 Hypertensive heart disease with heart failure (principal); J96.21 Acute and chronic respiratory failure with hypoxia; J44.1 Chronic obstructive pulmonary disease with (acute) exacerbation; I50.23 Acute on chronic systolic (congestive) heart failure; N28.9 Disorder of kidney and ureter, unspecified; I25.10 Atherosclerotic heart disease of native coronary artery without angina pectoris; K21.9 Gastro-esophageal reflux disease without esophagitis; E11.9 Type 2 diabetes mellitus without complications; R09.02 Hypoxemia; Z59.0 Homelessness; Z91.14 Patient's other noncompliance with medication regimen; Z85.46 Personal history of malignant neoplasm of prostate; Z95.5 Presence of coronary angioplasty implant and graft; F17.210 Nicotine dependence, cigarettes, uncomplicated
CPT/HCPCS: 36415; 71045; 80048; 80053; 80076; 81001; 83735; 83880; 84100; 85025; 85610; 87070; 87077; 87186; 87205; 93005; 94640; 94660; 94760; 99285; J1650; J1940; J2270; J2930; J7512; J7605

== ENCOUNTER 2018-10-20 14:12 | Emergency (ER) | payer OTHER ==
--- OUTSIDE RECORDS SUMMARY | 2018-10-20 14:14 | XMS REPORT ---
:1950 [facility] Address [address] [place] [address] Care Team Providers Name Role Phone Unavailable [...] View 2017-12-22 23:14:17 Patient: JOSTIN BURTON [facility] Date/Time12/22/2017 22:58 CDTReason for ExamCHF [...]
[2018-10-20] MEDS ORDERED: ALBUTEROL 2.5 MG/3 ML NEB SOL ONE (15:11)
[2018-10-20] MEDS ORDERED: ATROPINE SULF 1 MG/10 ML SYR IV ONE (15:11)
--- NOTE | 2018-10-20 16:09 | EKG ---
Test Date: 2018-10-20 Test Time: 14:40:49 [place] [employer] Loom: JOHANA MEASUREMENT RESULTS: Intervals: Rate: 96 VT: 134 QRSD: 114 QT: 388 QTc: 490 [place]: P: 56 VT: 134 QRS: 88 T: 32 INTERPRETIVE STATEMENTS: Normal sinus rhythm Nonspecific ST and T wave abnormality Prolonged QT Abnormal ECG Compared to ECG 10/14/2018 15:42:25 ST (T wave) deviation now present Ventricular premature complex(es) no longer present T-wave abnormality no longer present Right-axis deviation no longer present Electronically Signed On 10-20-18 16:09:15 CDT by Cyrus Porter
[2018-10-20 16:37] VITALS: TEMP 98.3; O2SAT 100
[2018-10-20 16:39] VITALS: BP 134/88
--- NOTE | 2018-10-20 16:39 | EDPHYS ---
Physician Documentation [facility] Name: Mark Terrell Age: 67 yrs Sex: Male : 1950 Arrival Date: 10/20/2018 Time: 14:14 Bed 20 Private MD: ED Physician Mike Yoo HPI: 10/20 16:20 This 67 yrs old Male presents to ER via EMS with complaints of Shortness Of gs Breath. 16:20 Onset: The symptoms/episode began/occurred CHRONIC DOESN'T TAKE MEDS AND STILL SMOKES. gs The patient's shortness of breath is aggravated by coughing. Severity of symptoms: At their worst the symptoms were mild in the emergency department the symptoms are unchanged. The patient has experienced similar episodes in the past, chronically. Historical: - Allergies: 14:19 Benadryl; iw - Home Meds: 14:28 NON-COMPLIANT [Active]; tw2 - PMHx: 14:19 Aneurysm; CHF; COPD; Hypertension; Prostate Cancer; iw 14:28 homeless; tw2 - PSHx: 14:19 Unable to obtain; iw - Immunization history:: Adult Immunizations up to date. - Social history:: Smoking status: Patient uses tobacco products, smokes one-half pack cigarettes per day. - Ebola Screening: : Patient negative for fever greater than or equal to 101.5 degrees Fahrenheit, and additional compatible Ebola Virus Disease symptoms Patient denies exposure to infectious person Patient denies travel to an Ebola-affected area in the 21 days before illness onset No symptoms or risks identified at this time. ROS: 16:20 All other systems are negative. gs Exam: 16:20 Head/Face: Normocephalic, atraumatic. Eyes: Pupils equal round and reactive to light, gs extra-ocular motions intact. Lids and lashes normal. Conjunctiva and sclera are non-icteric and not injected. Cornea within normal limits. Periorbital areas with no swelling, redness, or edema. ENT: Nares patent. No nasal discharge, no septal abnormalities noted. Tympanic membranes are normal and external auditory canals are clear. Oropharynx with no redness, swelling, or masses, exudates, or evidence of obstruction, uvula midline. Mucous membranes moist. Neck: Trachea midline, no thyromegaly or masses palpated, and no cervical lymphadenopathy. Supple, full range of motion without nuchal rigidity, or vertebral point tenderness. No Meningismus. Chest/axilla: Normal chest wall appearance and motion. Nontender with no deformity. No lesions are appreciated. Cardiovascular: Regular rate and rhythm with a normal S1 and S2. No gallops, murmurs, or rubs. Normal PMI, no JVD. No pulse deficits. Abdomen/GI: Soft, non-tender, with normal bowel sounds. No distension or tympany. No guarding or rebound. No evidence of tenderness throughout. Back: No spinal tenderness. No costovertebral tenderness. Full range of motion. Skin: Warm, dry with normal turgor. Normal color with no rashes, no lesions, and no evidence of cellulitis. MS/ Extremity: Pulses equal, no cyanosis. Neurovascular intact. Full, normal range of motion. Neuro: Awake and alert, GCS 15, oriented to person, place, time, and situation. Cranial nerves II-XII grossly intact. Motor strength 5/5 in all extremities. Sensory grossly intact. Cerebellar exam normal. Normal gait. 16:20 Constitutional: The patient appears alert, awake. 16:20 ECG was reviewed by the Attending Physician. 16:20 Respiratory: the patient does not display signs of respiratory distress, Respirations: normal, Breath sounds: wheezing: expiratory that is mild, is scattered. Vital Signs: 14:19 BP 145 / 92; Pulse 94; Resp 20 S; Temp 98.3(O); Pulse Ox 93% on R/A; Weight 79.38 kg; iw Height 6 ft. 0 in. (182.88 cm); Pain 7/10; 14:20 Pulse Ox 100% on Nebulizer Mask; iw 15:44 BP 134 / 88; Pulse 101; Resp 20; Pulse Ox 100% on Nebulizer Mask; tw2 14:19 Body Mass Index 23.73 (79.38 kg, 182.88 cm) iw MDM: 14:59 Patient medically screened. 16:20 Data reviewed: vital signs, nurses notes. 10/20 14:35 Order name: Troponin (emerg Dept Use Only); Complete Time: 15:53 10/20 14:35 Order name: EKG; Complete Time: 14:45 10/20 14:35 Order name: Cardiac monitoring; Complete Time: 15:40 10/20 14:35 Order name: EKG - Nurse/Tech; Complete Time: 15:49 10/20 14:35 Order name: IV Saline Lock; Complete Time: 15:39 10/20 14:35 Order name: Labs collected and sent; Complete Time: 15:15 10/20 14:35 Order name: O2 Per Protocol; Complete Time: 14:55 10/20 14:35 Order name: O2 Sat Monitoring; Complete Time: 14:55 EC:20 Clinical impression: Abnormal EKG without significant change. Administered Medications: 15:38 Drug: Albuterol 2.5 mg Route: Inhalation; tw2 15:39 Drug: Atropine 0.5 mg Route: IVP; Site: left antecubital; tw2 16:02 Follow up: Response: No adverse reaction tw2 Disposition: 10/20/18 15:54 Discharged to Home. Impression: Chronic obstructive pulmonary disease with (acute) exacerbation, Patient's noncompliance with medical treatment and regimen. - Condition is Stable. - Discharge Instructions: Chronic Obstructive Pulmonary Disease. - Medication Reconciliation Form, Thank You Letter, Antibiotic Education, Prescription Opioid Use form. - Follow up: Private Physician; When: 1 - 2 days; Reason: Re-evaluation by your physician. Signatures: Dispatcher [employer] EDSara Buitrago RN RN iw Ana M Wagner RN RN tw2 Mike Yoo MD MD Corrections: (The following items were deleted from the chart) 16:03 15:54 10/20/2018 15:54 Discharged to Home. Impression: Chronic obstructive pulmonary tw2 disease with (acute) exacerbation; Patient's noncompliance with medical treatment and regimen. Condition is Stable. Forms are Medication Reconciliation Form, Thank You Letter, Antibiotic Education, Prescription Opioid Use. Follow up: Private Physician; When: 1 - 2 days; Reason: Re-evaluation by your physician.
--- NOTE | 2018-10-20 16:39 | ER ---
Nurse's Notes [facility] Name: Mark Terrell Age: 67 yrs Sex: Male : 1950 Arrival Date: 10/20/2018 Time: 14:14 Bed 20 Private MD: Diagnosis: Chronic obstructive pulmonary disease with (acute) exacerbation;Patient's noncompliance with medical treatment and regimen Presentation: 10/20 14:16 Presenting complaint: Patient states: shortness of breath and chest pain X 1 hour. iw Transition of care: patient was not received from another setting of care. Onset of symptoms was October 20, 2018. Risk Assessment: Do you want to hurt yourself or someone else? Patient reports no desire to harm self or others. Initial Sepsis Screen: Does the patient meet any 2 criteria? No. Patient's initial sepsis screen is negative. Does the patient have a suspected source of infection? No. Patient's initial sepsis screen is negative. Care prior to arrival: Medication(s) given: Albuterol Neb x 1, Atrovent Neb x 1. 14:16 Method Of Arrival: EMS: [facility] iw 14:16 Acuity: ARIEL 3 iw Triage Assessment: 14:19 General: Appears in no apparent distress. Behavior is calm, cooperative, appropriate tw2 for age. General: Appears unkempt. Pain: Denies pain. EENT: No signs and/or symptoms were reported regarding the EENT system. Neuro: Level of Consciousness is awake, alert, obeys commands, Oriented to person, place, time, situation. Cardiovascular: Heart tones S1 S2 Patient's skin is warm and dry. Edema is 2+ to left midcalf, left ankle, right midcalf and right ankle. Respiratory: Reports shortness of breath at rest on exertion Airway is patent Respiratory effort is even, unlabored, Respiratory pattern is regular, symmetrical, Breath sounds are clear bilaterally. Onset: The symptoms/episode began/occurred today, the patient has mild shortness of breath. GI: No signs and/or symptoms were reported involving the gastrointestinal system. Abdomen is round non-distended, Bowel sounds present X 4 quads. : No signs and/or symptoms were reported regarding the genitourinary system. Derm: No signs and/or symptoms reported regarding the dermatologic system. Musculoskeletal: Range of motion: intact in all extremities. Historical: - Allergies: 14:19 Benadryl; iw - Home Meds: 14:28 NON-COMPLIANT [Active]; tw2 - PMHx: 14:19 Aneurysm; CHF; COPD; Hypertension; Prostate Cancer; iw 14:28 homeless; tw2 - PSHx: 14:19 Unable to obtain; iw - Immunization history:: Adult Immunizations up to date. - Social history:: Smoking status: Patient uses tobacco products, smokes one-half pack cigarettes per day. - Ebola Screening: : Patient negative for fever greater than or equal to 101.5 degrees Fahrenheit, and additional compatible Ebola Virus Disease symptoms Patient denies exposure to infectious person Patient denies travel to an Ebola-affected area in the 21 days before illness onset No symptoms or risks identified at this time. Screenin:27 Abuse screen: Denies threats or abuse. Nutritional screening: No deficits noted. tw2 Tuberculosis screening: No symptoms or risk factors identified. Fall Risk None identified. Assessment: 14:20 Reassessment: see triage assessment. tw2 14:27 Cardiovascular: Rhythm is sinus rhythm. tw2 15:43 Reassessment: Patient appears in no apparent distress at this time. No changes from tw2 previously documented assessment. Patient and/or family updated on plan of care and expected duration. Pain level reassessed. Patient is alert, oriented x 3, equal unlabored respirations, skin warm/dry/pink. 16:02 Reassessment: Patient appears in no apparent distress at this time. No changes from tw2 previously documented assessment. Patient and/or family updated on plan of care and expected duration. Pain level reassessed. Patient is alert, oriented x 3, equal unlabored respirations, skin warm/dry/pink. Vital Signs: 14:19 BP 145 / 92; Pulse 94; Resp 20 S; Temp 98.3(O); Pulse Ox 93% on R/A; Weight 79.38 kg; iw Height 6 ft. 0 in. (182.88 cm); Pain 7/10; 14:20 Pulse Ox 100% on Nebulizer Mask; iw 15:44 BP 134 / 88; Pulse 101; Resp 20; Pulse Ox 100% on Nebulizer Mask; tw2 14:19 Body Mass Index 23.73 (79.38 kg, 182.88 cm) iw ED Course: 14:14 Patient arrived in ED. iw 14:15 Bed in low position. Call light in reach. Side rails up X2. conveyor monitor on. Pulse tw2 ox on. NIBP on. 14:17 Ana M Wagner, RN is Primary Nurse. tw2 14:18 Triage completed. iw 14:19 Arm band placed on. tw2 14:32 Mike Yoo MD is Attending Physician. 14:44 EKG done, by coroner forensic technician. reviewed by Mike Yoo MD. 3 15:14 Missed attempt(s): 22 gauge Bleeding controlled, band aid applied, catheter tip intact. tw2 Missed attempt(s): 22 gauge in right Bleeding controlled, band aid applied, catheter tip intact. Missed attempt(s): 22 gauge in right forearm. Bleeding controlled, band aid applied, catheter tip intact. 16:02 No provider procedures requiring assistance completed. IV discontinued, intact, tw2 bleeding controlled, No redness/swelling at site. Pressure dressing applied. Administered Medications: 15:38 Drug: Albuterol 2.5 mg Route: Inhalation; tw2 15:39 Drug: Atropine 0.5 mg Route: IVP; Site: left antecubital; tw2 16:02 Follow up: Response: No adverse reaction tw2 Outcome: 15:54 Discharge ordered by . 16:02 Discharged to home ambulatory. tw2 16:02 Condition: stable 16:02 Discharge instructions given to patient, Instructed on discharge instructions, follow up and referral plans. Demonstrated understanding of instructions, follow-up care. 16:03 Patient left the ED. tw2 Signatures: Sara Enrique RN RN Ana M Wagner RN RN tw2 Mike Yoo MD MD Sharri Luna 3
== END 2018-10-20 16:03 | disposition home or self-care (01) ==
LOC: ER 14:12
DX: J44.1 Chronic obstructive pulmonary disease with (acute) exacerbation (principal); Z91.14 Patient's other noncompliance with medication regimen; I10 Essential (primary) hypertension; Z59.0 Homelessness; Z88.8 Allergy status to other drugs, medicaments and biological substances; Z85.46 Personal history of malignant neoplasm of prostate
CPT/HCPCS: 36415; 84484; 93005; 96374; 99285

== ENCOUNTER 2018-10-20 23:21 | Observation (INO) | payer OTHER ==
--- OUTSIDE RECORDS SUMMARY | 2018-10-20 23:23 | XMS REPORT ---
:1950 [facility] Address [address] [place] [address] Care Team Providers Name Role Phone Unavailable [...] 1 View 2017-12-22 23:14:17 Patient: JOSTIN BURTON [facility] Date/Time12/22/2017 22:58 CDTReason for ExamCHF [...]
[2018-10-20] MEDS ORDERED: METHYLPREDNISOLONE 125 MG INJ ONE (23:46)
[2018-10-20] MEDS ORDERED: ALBUTEROL 2.5 MG/3 ML NEB SOL ONE (23:47)
[2018-10-20] MEDS ORDERED: NA CHLORIDE 0.9% 1,000 ML ONE (23:47)
[2018-10-20] MEDS ORDERED: Levofloxacin500mg IV 500 MG/100 ML BAG IV ONE (23:47)
[2018-10-20] MEDS ORDERED: IPRATROPIUM BROM 0.5MG/2.5ML ONE (23:47)
[2018-10-21] MEDS ORDERED: FUROSEMIDE 40 MG/4 ML VIAL ONE (00:26)
[2018-10-21 00:52] LABS: Hematocrit 32.6 % (39.6-49.0); Lymphocytes % 18.8 % (15.3-44.8); MPV 10.1 fL (7.6-11.3); RBC Red Blood Cell Count 5.83 M/uL (4.33-5.43)
[2018-10-21 01:19] LABS: Protime INR 1.48
[2018-10-21 01:23] LABS: Bilirubin Direct 0.6 mg/dL (0-0.2); Bilirubin Total 1.5 mg/dL (0.2-1.0); Potassium 4.1 mmol/L (3.5-5.1); Protein, Total 5.8 g/dL (6.4-8.2); Troponin (Emerg Dept Use Only) 0.03 ng/mL (0.0-0.045)
--- NOTE | 2018-10-21 01:45 | ER ---
Nurse's Notes [facility] Name: Mark Terrell Age: 67 yrs Sex: Male : 1950 Arrival Date: 10/20/2018 Time: 23:27 Bed Treatment Private MD: Diagnosis: Unspecified combined systolic (congestive) and diastolic (congestive) heart failure;Chronic obstructive pulmonary disease with (acute) exacerbation;Tobacco abuse counseling;Tobacco use;Anemia, unspecified;Unspecified kidney failure Presentation: 10/20 23:25 Acuity: ARIEL 3 23:25 Presenting complaint: EMS states: that he is having shortness of breath. He was seen fc here earlier today for the same complaint. Also pt has bedbugs per his admission due to hotel he was staying at. Pt stood up at doorway and his clothing was removed and bagged. Transition of care: patient was not received from another setting of care. Onset of symptoms was October 20, 2018 at 22:30. Risk Assessment: Do you want to hurt yourself or someone else? Patient reports no desire to harm self or others. Initial Sepsis Screen: Does the patient meet any 2 criteria? RR > 20 per min. HR > 90 bpm. Yes Does the patient have a suspected source of infection? No. Patient's initial sepsis screen is negative. Care prior to arrival: None. 23:25 Method Of Arrival: EMS: [facility] Historical: - Allergies: 23:40 Benadryl; fc - Home Meds: 23:40 NON-COMPLIANT [Active]; fc - PMHx: 23:40 Aneurysm; CHF; COPD; homeless; Hypertension; Prostate Cancer; fc - PSHx: 23:40 Unable to obtain; fc - Immunization history:: Last tetanus immunization: unknown. - Social history:: Smoking status: Patient uses tobacco products, smokes one-half pack cigarettes per day, Patient/guardian denies using alcohol, street drugs. - Ebola Screening: : Patient negative for fever greater than or equal to 101.5 degrees Fahrenheit, and additional compatible Ebola Virus Disease symptoms Patient denies exposure to infectious person Patient denies travel to an Ebola-affected area in the 21 days before illness onset. - Family history:: not pertinent. Screenin:33 Abuse screen: Denies threats or abuse. Nutritional screening: No deficits noted. jd3 Tuberculosis screening: No symptoms or risk factors identified. Fall Risk Ambulatory Aid- None/Bed Rest/Nurse Assist (0 pts). Gait- Normal/Bed Rest/Wheelchair (0 pts) Mental Status- Oriented to own ability (0 pts). Total Chiang Fall Scale indicates No Risk (0-24 pts). Assessment: 23:32 General: Appears in no apparent distress. uncomfortable, Behavior is calm, cooperative, jd3 appropriate for age. Pain: Denies pain. Neuro: Level of Consciousness is awake, alert, obeys commands, Oriented to person, place, time, situation. Cardiovascular: Denies chest pain, Capillary refill < 3 seconds Patient's skin is warm and dry. Respiratory: Reports shortness of breath at rest Airway is patent Respiratory effort is labored, Respiratory pattern is symmetrical, tachypnea. GI: No signs and/or symptoms were reported involving the gastrointestinal system. : No signs and/or symptoms were reported regarding the genitourinary system. EENT: No signs and/or symptoms were reported regarding the EENT system. Derm: Skin is intact, Skin is dry, Skin is normal, Skin temperature is warm. Musculoskeletal: Circulation, motion, and sensation intact. Range of motion: intact in all extremities. 10/21 00:58 Reassessment: Patient appears in no apparent distress at this time. No changes from jd3 previously documented assessment. Patient and/or family updated on plan of care and expected duration. Pain level reassessed. Patient is alert, oriented x 3, equal unlabored respirations, skin warm/dry/pink. 01:52 Reassessment: Patient appears in no apparent distress at this time. Patient and/or jd3 family updated on plan of care and expected duration. Pain level reassessed. Patient is alert, oriented x 3, equal unlabored respirations, skin warm/dry/pink. Patient states feeling better. 02:50 Reassessment: Patient appears in no apparent distress at this time. Patient and/or jd3 family updated on plan of care and expected duration. Pain level reassessed. Patient is alert, oriented x 3, equal unlabored respirations, skin warm/dry/pink. Vital Signs: 10/20 23:25 BP 142 / 90; Pulse 99; Resp 26; Temp 97.9(O); Pulse Ox 95% on R/A; Weight 77.11 kg (R); fc Height 5 ft. 11 in. (180.34 cm) (R); Pain 0/10; 10/21 00:58 BP 127 / 81; Pulse 98; Resp 24; Pulse Ox 95% on Nebulizer Mask; Pain 0/10; jd3 01:54 BP 135 / 87; Pulse 95; Resp 20 S; Pulse Ox 95% on 2 lpm NC; jd3 02:52 Pulse 93; Resp 22 S; Pulse Ox 93% on 2 lpm NC; jd3 10/20 23:25 Body Mass Index 23.71 (77.11 kg, 180.34 cm) ED Course: 10/20 23:25 Arm band placed on Patient placed in an exam room, on a stretcher. 23:27 Patient arrived in ED. ak1 23:31 Satish Catalan MD is Attending Physician. mónica 23:31 Anatoliy Carter RN is Primary Nurse. jd3 23:33 Patient has correct armband on for positive identification. Placed in gown. Bed in low jd3 position. Call light in reach. Side rails up X2. nurse monitoring on. Pulse ox on. NIBP on. 23:37 Triage completed. 10/21 00:34 Inserted saline lock: 22 gauge in right antecubital area, using aseptic technique. jd3 Blood collected. 00:38 XRAY Chest (1 view) In Process Unspecified. EDMS 01:27 Ayan Rodriguez DO is Hospitalizing Provider. mónica 01:54 No provider procedures requiring assistance completed. Patient admitted, IV remains in jd3 place. Administered Medications: 00:52 Drug: NS 0.9% 1000 ml Route: IV; Rate: 75 ml/hr; Site: right antecubital; jd3 02:56 Follow up: Response: No adverse reaction; IV Status: Infusion continued upon admission jd3 00:52 Drug: SOLU-Medrol 125 mg Route: IVP; Site: right antecubital; jd3 02:56 Follow up: Response: No adverse reaction jd3 00:52 Drug: Albuterol - atroVENT (3:1) (2.5 mg - 0.5 mg) 3 ml Route: Nebulizer; jd3 02:56 Follow up: Response: No adverse reaction jd3 00:52 Drug: levofloxacin 500 mg Volume: 100 ml; Route: IVPB; Infused Over: 60 mins; Site: jd3 right antecubital; 02:57 Follow up: Response: No adverse reaction; IV Status: Completed infusion; IV Intake: jd3 100ml 00:53 Drug: Lasix 40 mg Route: IVP; Site: right antecubital; jd3 02:57 Follow up: Response: No adverse reaction jd3 Intake: 02:57 IV: 100ml; Total: 100ml. jd3 Outcome: 01:29 Decision to Hospitalize by Provider. mónica 02:48 Admitted to Tele accompanied by nurse, via stretcher, room 417, with oxygen, with jd3 chart, Report called to Lara METZ 02:48 Condition: stable 02:48 Instructed on the need for admit, Demonstrated understanding of instructions. 03:22 Patient left the ED. jd3 Signatures: Dispatcher [employer] Satish Johnson MD MD cha Chretien, Felicia RN RN Crystal Lord RN RN Anatoliy Bassett RN RN jd3 Corrections: (The following items were deleted from the chart) 10/20 23:38 20:25 Immunization history: Last tetanus immunization: unknown, [facility] 23:38 20:25 Social history: Smoking status: Patient uses tobacco products, smokes one-half fc pack cigarettes per day, Patient/guardian denies using alcohol, street drugs, 23:38 20:25 Ebola Screening: Patient negative for fever greater than or equal to 101.5 fc degrees Fahrenheit, and additional compatible Ebola Virus Disease symptoms Patient denies exposure to infectious person Patient denies travel to an Ebola-affected area in the 21 days before illness onset 23:38 20:25 BP 142 / 90; Pulse 99bpm; Resp 26bpm; Pulse Ox 95% RA; Temp 97.9F Oral; 77.11 kg fc Reported; Height 5 ft. 11 in. Reported; BMI: 23.7; Pain 0/10; fc 23:39 20:25 Presenting complaint: EMS states: that he is having shortness of breath. He was fc seen here earlier today for the same complaint. Also pt has bedbugs per his admission due to hotel he was staying at. Pt stood up at doorway and his clothing was removed and bagged. 23:39 20:25 Transition of care: patient was not received from another setting of care. [facility] :39 20:25 Onset of symptoms was October 20, 2018 at 22:30 [facility] : 20:25 Initial Sepsis Screen: Does the patient meet any 2 criteria? RR > 20 per min. HR fc > 90 bpm. Yes Does the patient have a suspected source of infection? No. Patient's initial sepsis screen is negative. : 20:25 Risk Assessment: Do you want to hurt yourself or someone else? Patient reports no fc desire to harm self or others. : 20:25 Care prior to arrival: None. [facility] : 20:25 Method Of Arrival: EMS: [facility] : 20:25 Acuity: ARIEL 3 [facility] 10/21 02:48 01:54 BP 135 / 87; Pulse 95bpm; Resp 16bpm; Spontaneous; Pulse Ox 95% 2 lpm Nasal jd3 Cannula; jd3
--- NOTE | 2018-10-21 01:46 | EDPHYS ---
Physician Documentation [facility] Name: Mark Terrell Age: 67 yrs Sex: Male : 1950 Arrival Date: 10/20/2018 Time: 23:27 Bed Treatment Private MD: ED Physician Satish Catalan HPI: 10/21 00:27 This 67 yrs old Male presents to ER via EMS with complaints of SOB. mónica 00:27 The patient presents with decreased range of motion, pain, swelling. The complaints mónica affect the right leg and left leg. Onset: The symptoms/episode began/occurred 2 day(s) ago. Modifying factors: The symptoms are alleviated by elevating leg, the symptoms are aggravated by movement. The patient has shortness of breath with light activity. The patient's shortness of breath is aggravated by coughing, supine position, walking, is alleviated by nebulizer treatment, rest, sitting up, application of supplemental oxygen. The patient or guardian reports cough, that is intermittent, difficulty breathing. Historical: - Allergies: 10/20 23:40 Benadryl; fc - Home Meds: 23:40 NON-COMPLIANT [Active]; fc - PMHx: 23:40 Aneurysm; CHF; COPD; homeless; Hypertension; Prostate Cancer; fc - PSHx: 23:40 Unable to obtain; fc - Immunization history:: Last tetanus immunization: unknown. - Social history:: Smoking status: Patient uses tobacco products, smokes one-half pack cigarettes per day, Patient/guardian denies using alcohol, street drugs. - Ebola Screening: : Patient negative for fever greater than or equal to 101.5 degrees Fahrenheit, and additional compatible Ebola Virus Disease symptoms Patient denies exposure to infectious person Patient denies travel to an Ebola-affected area in the 21 days before illness onset. - Family history:: not pertinent. ROS: 10/21 00:27 Constitutional: Negative for fever, chills, and weight loss, Eyes: Negative for injury, mónica pain, redness, and discharge, ENT: Negative for injury, pain, and discharge, Neck: Negative for injury, pain, and swelling, Cardiovascular: Negative for chest pain, palpitations, and edema, Abdomen/GI: Negative for abdominal pain, nausea, vomiting, diarrhea, and constipation, Back: Negative for injury and pain, : Negative for injury, bleeding, discharge, and swelling, Skin: Negative for injury, rash, and discoloration, Neuro: Negative for headache, weakness, numbness, tingling, and seizure, Psych: Negative for depression, anxiety, suicide ideation, homicidal ideation, and hallucinations, Allergy/Immunology: Negative for hives, rash, and allergies, Endocrine: Negative for neck swelling, polydipsia, polyuria, polyphagia, and marked weight changes, Hematologic/Lymphatic: Negative for swollen nodes, abnormal bleeding, and unusual bruising. Respiratory: Positive for MS/extremity: Positive for decreased range of motion, pain, of the right leg and left leg. Exam: 00:27 Constitutional: This is a well developed, well nourished patient who is awake, alert, mónica and in no acute distress. Head/Face: Normocephalic, atraumatic. Eyes: Pupils equal round and reactive to light, extra-ocular motions intact. Lids and lashes normal. Conjunctiva and sclera are non-icteric and not injected. Cornea within normal limits. Periorbital areas with no swelling, redness, or edema. ENT: Nares patent. No nasal discharge, no septal abnormalities noted. Tympanic membranes are normal and external auditory canals are clear. Oropharynx with no redness, swelling, or masses, exudates, or evidence of obstruction, uvula midline. Mucous membranes moist. Neck: Trachea midline, no thyromegaly or masses palpated, and no cervical lymphadenopathy. Supple, full range of motion without nuchal rigidity, or vertebral point tenderness. No Meningismus. Chest/axilla: Normal chest wall appearance and motion. Nontender with no deformity. No lesions are appreciated. Cardiovascular: Regular rate and rhythm with a normal S1 and S2. No gallops, murmurs, or rubs. Normal PMI, no JVD. No pulse deficits. Abdomen/GI: Soft, non-tender, with normal bowel sounds. No distension or tympany. No guarding or rebound. No evidence of tenderness throughout. Back: No spinal tenderness. No costovertebral tenderness. Full range of motion. Male : Normal genitalia with no discharge or lesions. Skin: Warm, dry with normal turgor. Normal color with no rashes, no lesions, and no evidence of cellulitis. Neuro: Awake and alert, GCS 15, oriented to person, place, time, and situation. Cranial nerves II-XII grossly intact. Motor strength 5/5 in all extremities. Sensory grossly intact. Cerebellar exam normal. Normal gait. Psych: Awake, alert, with orientation to person, place and time. Behavior, mood, and affect are within normal limits. 00:27 Respiratory: mild respiratory distress is noted, Respirations: no acute changes, Breath sounds: rales, that are mild, are located in both bases, bronchial sounds, decreased breath sounds, wheezing: expiratory Vital Signs: 10/20 23:25 BP 142 / 90; Pulse 99; Resp 26; Temp 97.9(O); Pulse Ox 95% on R/A; Weight 77.11 kg (R); fc Height 5 ft. 11 in. (180.34 cm) (R); Pain 0/10; 10/21 00:58 BP 127 / 81; Pulse 98; Resp 24; Pulse Ox 95% on Nebulizer Mask; Pain 0/10; jd3 01:54 BP 135 / 87; Pulse 95; Resp 20 S; Pulse Ox 95% on 2 lpm NC; jd3 02:52 Pulse 93; Resp 22 S; Pulse Ox 93% on 2 lpm NC; jd3 10/20 23:25 Body Mass Index 23.71 (77.11 kg, 180.34 cm) fc MDM: 10/20 23:31 Patient medically screened. [facility] 10/21 00:30 Data reviewed: vital signs, nurses notes, lab test result(s), EKG, radiologic studies, mónica plain films. 10/20 23:35 Order name: Basic Metabolic Panel [facility] 10/20 23:35 Order name: CBC with Diff [facility] 10/20 23:35 Order name: LFT's [facility] 10/20 23:35 Order name: Magnesium [facility] 10/20 23:35 Order name: NT PRO-BNP [facility] 10/20 23:35 Order name: PT-INR [facility] 10/20 23:35 Order name: Troponin (emerg Dept Use Only) [facility] 10/20 23:35 Order name: XRAY Chest (1 view) [facility] 10/20 23:35 Order name: Blood Culture Adult (2) [facility] 10/21 01:50 Order name: Urine Dipstick--Ancillary (enter results) mw2 10/21 02:02 Order name: CBC Smear Scan [facility] 10/20 23:35 Order name: EKG; Complete Time: 23:37 [facility] 10/20 23:35 Order name: Cardiac monitoring; Complete Time: 23:43 [facility] 10/20 23:35 Order name: EKG - Nurse/Tech; Complete Time: 00:52 [facility] 10/20 23:35 Order name: IV Saline Lock; Complete Time: 00:52 [facility] 10/20 23:35 Order name: Labs collected and sent; Complete Time: 00:52 [facility] 10/20 23:35 Order name: O2 Per Protocol; Complete Time: 23:43 [facility] 10/20 23:35 Order name: O2 Sat Monitoring; Complete Time: 23:43 [facility] 10/20 23:35 Order name: Urine Dipstick-Ancillary (obtain specimen); Complete Time: 00:52 [facility] Administered Medications: 00:52 Drug: NS 0.9% 1000 ml Route: IV; Rate: 75 ml/hr; Site: right antecubital; jd3 02:56 Follow up: Response: No adverse reaction; IV Status: Infusion continued upon admission jd3 00:52 Drug: SOLU-Medrol 125 mg Route: IVP; Site: right antecubital; jd3 02:56 Follow up: Response: No adverse reaction jd3 00:52 Drug: Albuterol - atroVENT (3:1) (2.5 mg - 0.5 mg) 3 ml Route: Nebulizer; jd3 02:56 Follow up: Response: No adverse reaction jd3 00:52 Drug: levofloxacin 500 mg Volume: 100 ml; Route: IVPB; Infused Over: 60 mins; Site: [facility] right antecubital; 02:57 Follow up: Response: No adverse reaction; IV Status: Completed infusion; IV Intake: jd3 100ml 00:53 Drug: Lasix 40 mg Route: IVP; Site: right antecubital; jd3 02:57 Follow up: Response: No adverse reaction jd3 Disposition: 10/21/18 01:29 Hospitalization ordered by Ayan Rodriguez for Inpatient Admission. Preliminary diagnosis are Unspecified combined systolic (congestive) and diastolic (congestive) heart failure, Chronic obstructive pulmonary disease with (acute) exacerbation, Tobacco abuse counseling, Tobacco use, Anemia, unspecified, Unspecified kidney failure. - Bed requested for Telemetry/MedSurg (Inpatient). - Status is Inpatient Admission. jd3 - Condition is Fair. - Problem is new. - Symptoms have improved. UTI on Admission? No Signatures: Dispatcher [employer] EDSatish Henley MD MD cha Chretien, Felicia RN RN Anatoliy Carter RN RN j Beba Andrade mw2 Corrections: (The following items were deleted from the chart) 10/20 23:38 20:25 Immunization history: Last tetanus immunization: unknown, [facility] :38 20:25 Social history: Smoking status: Patient uses tobacco products, smokes one-half fc pack cigarettes per day, Patient/guardian denies using alcohol, street drugs, :38 20:25 Ebola Screening: Patient negative for fever greater than or equal to 101.5 fc degrees Fahrenheit, and additional compatible Ebola Virus Disease symptoms Patient denies exposure to infectious person Patient denies travel to an Ebola-affected area in the 21 days before illness onset 10/21 02:30 01:29 Hospitalization Ordered by Ayan Rodriguez DO for Inpatient Admission. Preliminary mw2 diagnosis is Unspecified combined systolic (congestive) and diastolic (congestive) heart failure; Chronic obstructive pulmonary disease with (acute) exacerbation; Tobacco abuse counseling; Tobacco use; Anemia, unspecified; Unspecified kidney failure. Bed requested for Telemetry/MedSurg (Inpatient). Status is Inpatient Admission. Condition is Fair. Problem is new. Symptoms have improved. UTI on Admission? No. [facility] 03:22 02:30 10/21/2018 01:29 Hospitalization Ordered by Ayan Rodriguez DO for Inpatient jd3 Admission. Preliminary diagnosis is Unspecified combined systolic (congestive) and diastolic (congestive) heart failure; Chronic obstructive pulmonary disease with (acute) exacerbation; Tobacco abuse counseling; Tobacco use; Anemia, unspecified; Unspecified kidney failure. Bed requested for Telemetry/MedSurg (Inpatient). Status is Inpatient Admission. Condition is Fair. Problem is new. Symptoms have improved. UTI on Admission? No. mw2
[2018-10-21 02:01] LABS: Anisocytosis 1+; Blood Morphology Comment NOTED (NOT SEEN); Hypochromasia 1+; Platelet Estimate ADEQ; Urine White Blood Cell Casts OK
[2018-10-21 02:01] LABS: Urine Blood TRACE (NEG); Urine Glucose NEGATIVE (NEG); Urine Protein 2+ (NEG); Urine Specific Gravity 1.015 (1.005-1.030)
--- NOTE | 2018-10-21 02:06 | P.HP ---
Certification for Inpatient With expected LOS: >2 Midnights Practitioner: I am a practitioner with admitting privileges, knowledge of patient current condition, hospital course, and medical plan of care. Services: Services provided to patient in accordance with Admission requirements found in Title 42 Section 412.3 of the Code of Federal Regulations Patient History Date of Service: 10/21/18 Reason for admission: Shortness of breath History of Present Illness: 67-year-old man with a past medical history of ischemic cardiomyopathy, EF of 40 %, COPD, homeless, medication noncompliance presented emergency department for the 2nd time over the last 24 hours for shortness of breath. He presented to the ED yesterday in the afternoon for shortness of breath. He was diagnosed COPD exacerbation, given nebulizer treatment and discharged. He presents again with progressive shortness of breath and cough and wheezing. Cough is nonproductive. He denied any orthopnea. He continues to smoke and his last smoke was yesterday in the afternoon. In the ED, patient noted to be on oxygen by nasal cannula. His respiratory condition partially improved with nebulizer treatment. Chest x-ray grossly unchanged from previous. EKG sinus rhythm with atrial complexes. Troponin negative. Patient is admitted for COPD exacerbation that has failed outpatient treatment. Allergies poison chandana extract Allergy (Intermediate, Verified 10/21/18 04:23) Hives diphenhydramine HCl [From Benadryl] Adverse Reaction (Intermediate, Verified 04:23) Hives Home Medications: Aspirin [Aspirin EC 81 MG] 81 mg PO DAILY 10/16/18 Furosemide [Lasix] 20 mg PO DAILY #30 tablet 10/18/18 Lisinopril [Prinivil*] 5 mg PO DAILY #30 tab 10/18/18 predniSONE [Deltasone*] 10 mg PO DAILY #30 tab 10/18/18 - Past Medical/Surgical History Diabetic: No -: History of prostate cancer -: Hypertension -: History of brain aneurysm requiring surgery -: CHF, systolic dysfunction -: COPD -: Tobacco abuse -: DM 2 -: Coronary disease, stents x3 to LAD/RCA(Feb 2016) -: Anemia of chronic disease -: GERD -: Hyperlipidemia -: hyperlipidemia -: Prostate surgery -: Brain aneurysm surgery -: Toe surgery R. great toe/childhood -: Heart catheterization-3stents LAD/RCA Psychosocial/ Personal History: Patient is homeless. He is single. He has no children. 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 - Family History Father -: Cancer Notes: brain cancer Mother -: Cancer Notes: pancreatic cancer Brother -: Cancer Notes: lung cancer - Social History Smoking Status: Current every day smoker Alcohol use: No CD- Drugs: No Caffeine use: Yes Review of Systems Other: General: No fever, no malaise, no unintentional weight loss. Eyes: No eye discharge, CVS: No chest pain, no palpitation, no lightheadedness. GI: No abdominal pain, no nausea no vomit, no constipation, no diarrhea. Genitourinary: No dysuria, no urinary frequency, no incontinence, no hematuria. Musculoskeletal: No joint pains, or joint swelling, no gait instability. Neurology: No headache, no asymmetric, weakness, no problem with swallowing. Except as documented, all other systems reviewed and negative Physical Examination - Physical Exam General: Alert, Oriented x3, Disheveled, Mild distress HEENT: Atraumatic, Normocephalic, PERRLA, Mucous membr. moist/pink, EOMI Neck: Supple, 2+ carotid pulse no bruit, JVD not distended Respiratory: Diminished (Diffuse diminished breath sounds.), Other (No crackles or rales.) Cardiovascular: No edema, Normal pulses, Regular rate/rhythm, Normal S1 S2, No murmurs Capillary refill: <2 Seconds Gastrointestinal: Normal bowel sounds, Soft and benign, Non-distended, No tenderness Musculoskeletal: No clubbing, No tenderness, No warmth Integumentary: No rashes, No erythema Neurological: Normal strength at 5/5 x4 extr, Cranial nerves 3-12 intact, Normal affect - Studies Laboratory Data (last 24 hrs) 10/21/18 00:21: PT 17.2 H, INR 1.48 10/21/18 00:21: WBC 10.6, Hgb 9.3 L, Hct 32.6 L, Plt Count 187 10/21/18 00:21: Sodium 143, Potassium 4.1, BUN 30 H, Creatinine 1.39 H, Glucose 134 H, Magnesium 2.0, Total Bilirubin 1.5 H, AST 20, ALT 19, Alkaline Phosphatase 88 Imagings Data: Chest x-ray: Chronic interstitial changes. Assessment and Plan - Problems (Diagnosis) (1) COPD exacerbation Onset Date: 12/19/15 Current Visit: No Status: Acute (2) Chronic systolic heart failure Current Visit: Yes Status: Acute (3) Ischemic cardiomyopathy Current Visit: Yes Status: Acute (4) Type 2 diabetes mellitus Onset Date: 12/10/16 Current Visit: No Status: Chronic Qualifiers: Diabetes mellitus residential insulin use: without keno terminal operator use Diabetes mellitus complication status: with unspecified complications - Plan Admits to general medical floor Schedule bronchodilators-Albuterol, atrovent, pulmicort IV Solu-Medrol No indication for antibiotics at this time Titrate oxygen Patient appeared compensated for CHF. Insulin sliding scale for glucose management. Watch for steroid induced hyperglycemia. Plan to discharge in: 24 Hours - Advance Directives Does patient have a Living Will: No Does patient have a Durable POA for Healthcare: No - Code Status/Comfort Care Code Status Assessed: Yes Code Status: Full Code Time Spent Managing Pts Care (In Minutes): 55
[2018-10-21] MEDS ORDERED: ACETAMINOPHEN 500 MG TAB PO PRN (02:14)
[2018-10-21] MEDS ORDERED: ONDANSETRON 4 MG/2 ML VIAL IV PRN (02:14)
[2018-10-21 03:44] VITALS: BMI 24.7
[2018-10-21] MEDS: ASPIRIN EC 81 MG TAB PO SCH (07:37)
--- NOTE | 2018-10-21 07:44 | EKG ---
Test Date: 2018-10-21 Test Time: 00:28:13 Customer Engineer: TAMARA MEASUREMENT RESULTS: Intervals: Rate: 89 MS: 126 QRSD: 116 QT: 424 QTc: 515 Taylor: P: 73 MS: 126 QRS: 94 T: -45 INTERPRETIVE STATEMENTS: Sinus rhythm with premature atrial complexes Rightward axis Non specific ST and T abnormality Abnormal ECG Compared to ECG 10/20/2018 14:40:49 no significant change from previous ECG Electronically Signed On 10-21-18 07:43:54 CDT by Jitendra Willams
[2018-10-21] MEDS: ALBUTEROL 2.5 MG/3 ML NEB SOL NEB PRN (07:53)
[2018-10-21] MEDS: IPRATROPIUM BROM 0.5MG/2.5ML NEB PRN ×2 (07:53→20:00)
[2018-10-21] MEDS ORDERED: BUDESONIDE 0.5 MG/2 ML NEB NEB SCH (08:00)
--- NOTE | 2018-10-21 08:16 | RAD REPORT ---
EXAM DESCRIPTION: RAD - Chest Single View - 10/21/2018 12:07 am CLINICAL HISTORY: Cough;COPD Chest pain. COMPARISON: Chest Single View dated 10/17/2018; Chest Single View dated 10/14/2018; Chest Single View dated 10/06/2018; Chest Single View dated 09/29/2018 FINDINGS: Portable technique limits examination quality. Since 10/17/2018, mild worsening in lung aeration is noted. The heart is moderately enlarged in size. Old left posterior rib fractures again seen. IMPRESSION: Mild worsening in lung aeration since 10/17/2018.
[2018-10-21] MEDS ORDERED: METHYLPREDNISOLONE 40 MG INJ IV SCH (09:00)
[2018-10-21] MEDS ORDERED: ASPIRIN EC 81 MG TAB PO SCH (09:00)
[2018-10-21] MEDS: LISINOPRIL 5 MG TAB PO SCH (09:34)
[2018-10-21] MEDS: predniSONE 20 MG TAB PO SCH ×2 (09:34→20:43)
[2018-10-21] MEDS: FUROSEMIDE 40 MG/4 ML VIAL IV SCH ×2 (09:34→16:23)
--- NOTE | 2018-10-21 10:46 | RAD REPORT ---
EXAM DESCRIPTION: Neo Single View10/21/2018 10:39 am CLINICAL HISTORY: sob COMPARISON: October 20, 2018 FINDINGS: Pulmonary opacities have mildly improved. Heart remains markedly enlarged. Small pleural effusions are present IMPRESSION: Improvement in CHF
--- NOTE | 2018-10-21 11:40 | ECHO ---
HEIGHT: 5 ft 11 in WEIGHT: 177 lb 3.2 oz DATE OF STUDY: 10/21/[address]: Ayan Rodriguez DO 2-DIMENSIONAL: YES M.MODE: YES DOPPLER: YES COLOR FLOW: YES TDS: NO PORTABLE: NO DEFINITY: NO BUBBLE STUDY: NO DIAGNOSIS: CONGESTIVE HEART FAILURE CARDIAC HISTORY: CATHERIZATION: YES SURGERY: NO PROSTHETIC VALVE: NO PACEMAKER: NO MEASUREMENTS (cm) DIASTOLIC (NORMALS) SYSTOLIC (NORMALS) IVSd 1.2 (0.6-1.2) LA Diam 4.1 (1.9-4.0) LVEF 30-35% LVIDd 5.8 (3.5-5.7) LVIDs 5.2 (2.0-3.5) %FS 11% LVPWd 1.2 (0.6-1.2) Ao Diam 3.1 (2.0-3.7) 2 DIMENSIONAL ASSESSMENT: RIGHT ATRIUM: NORMAL LEFT ATRIUM: DILATED RIGHT VENTRICLE: NORMAL LEFT VENTRICLE: DILATED TRICUSPID VALVE: NORMAL MITRAL VALVE: NORMAL PULMONIC VALVE: NORMAL AORTIC VALVE: SCLEROSIS PERICARDIAL EFFUSION: NONE AORTIC ROOT: NORMAL LEFT VENTRICULAR WALL MOTION: GLOBAL HYPOKINESIS. DOPPLER/COLOR FLOW: MILD MITRAL AND TRICUSPID REGURGITATION. MILD AORTIC STENOSIS. PEAK/MEAN GRADIENT 21/13. ESTIMATED AORTIC VALVE AREA 1.5 CENTIMETERS SQUARED. NO AORTIC REGURGITATION. COMMENTS: DEPRESSED LEFT VENTRICULAR EJECTION FRACTION. DILATED LEFT ATRIUM AND LEFT VENTRICLE. MILD AORTIC STENOSIS WITH NO AORTIC REGURGITATION. MILD MITRAL AND TRICUSPID REGURGITATION. NORMAL RIGHT VENTRICULAR SYSTOLIC PRESSURE. TECHNOLOGIST: Fozia NUNEZ
--- NOTE | 2018-10-21 15:25 | P.PN ---
Subjective Date of Service: 10/21/18 Primary Care Provider: None but has [employer] benefits Chief Complaint: Shortness of breath Subjective: Other (Patient improved. Still with mild shortness of breath.) Physical Examination - Vital Signs Temperature: 98 F Blood Pressure: 139/94 Pulse: 90 Respirations: 24 Pulse Ox (%): 94 - Physical Exam General: Alert, Oriented x3, Cooperative, Mild distress HEENT: Atraumatic Neck: Supple Respiratory: Crackles/rales, Expiratory wheezes, Inspiratory wheezes Cardiovascular: Regular rate/rhythm Gastrointestinal: Normal bowel sounds, Soft and benign, Non-distended, No masses , No rebound, No guarding Integumentary: No erythema, No warmth, No cyanosis, Tenderness/swelling (2+ pitting edema to the lower extremities bilateral) Neurological: Normal speech, Normal strength at 5/5 x4 extr, Normal tone, Normal affect - Studies Laboratory Data (last 24 hrs) 10/21/18 00:21: PT 17.2 H, INR 1.48 10/21/18 00:21: WBC 10.6, Hgb 9.3 L, Hct 32.6 L, Plt Count 187 10/21/18 00:21: Sodium 143, Potassium 4.1, BUN 30 H, Creatinine 1.39 H, Glucose 134 H, Magnesium 2.0, Total Bilirubin 1.5 H, AST 20, ALT 19, Alkaline Phosphatase 88 Medications List Reviewed: Yes Assessment & Plan Discharge Plan: Shelter Plan to discharge in: 48 Hours Physician Review Additional Text: Impression: Shortness of breast secondary to acute on chronic respiratory failure with hypoxia secondary to acute on chronic systolic CHF and COPD exacerbation Hypertension Chronic renal disease, stage III Mild aortic stenosis Chronic anemia with iron deficiency Tobacco abuse Noncompliance with medication Plan: Shortness of breast secondary to acute on chronic respiratory failure with hypoxia secondary to acute on chronic systolic CHF and COPD exacerbation: Continue COPD medication. Medications adjusted. Will also start IV Lasix and continue. Patient on DVT prophylaxis-Lovenox. Recheck chest x-ray shows improvement. Will order physical therapy and occupational therapy. Case discussed at length with patient and nurse present. Patient understands that his condition is getting worse over time. Patient has had multiple admissions for this. Options of care discussed at length with patient. Best option would be for the patient to go to skilled placement facility and eventually long-term care. Patient now willing to do this at this time as he understands his condition is terminal. Advanced directives also address in detail. Patient wishes to be do not resuscitate. Patient understands this clearly. Social work to help [id number] DNR. Anticipate discharge in the next 2-3 days to skilled facility and eventually to long-term care. Hypertension: Restart home medication. Chronic renal disease, stage III: Overall stable. Will monitor this closely. Will replace electrolytes as appropriate. Mild aortic stenosis: Continue with diuresis. Will monitor closely. Chronic anemia with iron deficiency: Continue with iron supplementation. Overall stable. Tobacco abuse: Will provide nicotine patch. Continued tobacco cessation education. Noncompliance with medication: Patient understands that he has been non compliant with medication. Options of care discussed at length with patient. Patient understands his current and future condition. Patient wishes to go to a skilled facility then eventually long-term care. Time Spent Managing Pts Care (In Minutes): 55
[2018-10-21] MEDS: ENOXAPARIN 30 MG/0.3 ML SQ SCH (16:23)
[2018-10-21] MEDS: METOPROLOL TAR 25 MG TAB PO SCH (17:03)
[2018-10-21] MEDS: ARFORMOTEROL TARTRATE 15 MCG/2 ML VIAL.NEB NEB SCH (20:00)
[2018-10-21] MEDS: FERROUS SULFATE 325 MG TAB PO SCH (20:43)
[2018-10-22] MEDS: METOPROLOL TAR 25 MG TAB PO SCH (05:06)
[2018-10-22 07:04] LABS: Magnesium 2.3 mg/dL (1.8-2.4); Potassium 4.3 mmol/L (3.5-5.1)
[2018-10-22] MEDS ORDERED: PANTOPRAZOLE 40MG TABLET PO SCH (07:30)
[2018-10-22 07:45] LABS: Absolute Lymphocytes (CBC) 1.1 K/uL (0.7-4.9); Basophils % 0.1 % (0-1.3); Hematocrit 30.3 % (39.6-49.0); Lymphocytes % 9.5 % (15.3-44.8); MPV 10.1 fL (7.6-11.3); RBC Red Blood Cell Count 5.47 M/uL (4.33-5.43)
[2018-10-22] MEDS: ALBUTEROL 2.5 MG/3 ML NEB SOL NEB PRN (08:55)
[2018-10-22] MEDS: IPRATROPIUM BROM 0.5MG/2.5ML NEB PRN (08:55)
[2018-10-22] MEDS: ARFORMOTEROL TARTRATE 15 MCG/2 ML VIAL.NEB NEB SCH (08:55)
[2018-10-22] MEDS ORDERED: THIAMINE HCL 100 MG TABLET PO SCH (09:00)
[2018-10-22] MEDS ORDERED: FUROSEMIDE 40 MG TABLET PO SCH (09:00)
[2018-10-22] MEDS ORDERED: FOLIC ACID 1 MG TABLET PO SCH (09:00)
[2018-10-22] MEDS: ENOXAPARIN 30 MG/0.3 ML SQ SCH (09:11)
[2018-10-22] MEDS: LISINOPRIL 5 MG TAB PO SCH (09:11)
[2018-10-22] MEDS: FERROUS SULFATE 325 MG TAB PO SCH (09:12)
[2018-10-22] MEDS: ASPIRIN EC 81 MG TAB PO SCH (09:12)
[2018-10-22] MEDS: predniSONE 20 MG TAB PO SCH (09:12)
[2018-10-22 09:17] LABS: Platelet Estimate ADEQ; Urine White Blood Cell Casts OK
[2018-10-22 09:18] LABS: Anisocytosis 2+; Blood Morphology Comment NOTED (NOT SEEN); Hypochromasia 3+; Ovalocytes 1+; Target Cells 1+
--- NOTE | 2018-10-22 10:02 | P.DS ---
Admission Date: 10/21/18 Discharge Date: 10/22/18 Primary Care Provider: None but has [facility] benefits Disposition: ROUTINE DISCHARGE Discharge Condition: GOOD Reason for Admission: Shortness of breath Consultations: none Procedures: ECHO: EF-30% LEFT VENTRICULAR WALL MOTION: GLOBAL HYPOKINESIS. DOPPLER/COLOR FLOW: MILD MITRAL AND TRICUSPID REGURGITATION. MILD AORTIC STENOSIS. PEAK/MEAN GRADIENT 21/13. ESTIMATED AORTIC VALVE AREA 1.5 CENTIMETERS SQUARED. NO AORTIC REGURGITATION. COMMENTS: DEPRESSED LEFT VENTRICULAR EJECTION FRACTION. DILATED LEFT ATRIUM AND LEFT VENTRICLE. MILD AORTIC STENOSIS WITH NO AORTIC REGURGITATION. MILD MITRAL AND TRICUSPID REGURGITATION. NORMAL RIGHT VENTRICULAR SYSTOLIC PRESSURE. Follow up CXR: COMPARISON: October 20, 2018 FINDINGS: Pulmonary opacities have mildly improved. Heart remains markedly enlarged. Small pleural effusions are present IMPRESSION: Improvement in CHF Medical problem list: Shortness of breast secondary to acute on chronic respiratory failure with hypoxia secondary to acute on chronic systolic CHF and COPD exacerbation Hypertension Chronic renal disease, stage III Mild aortic stenosis Chronic anemia with iron deficiency Tobacco abuse Noncompliance with medication Brief History of Present Illness: 67-year-old male with history of COPD, CHF and multiple prior admissions. Patient came in with shortness of breath secondary to acute respiratory failure related to COPD and CHF. Patient was admitted for further evaluation. Hospital Course: Patient presented with shortness of breath secondary to acute on chronic respiratory failure with hypoxia secondary to acute on chronic systolic CHF and COPD exacerbation. Patient is well-known to the hospitalist service. Patient with history of noncompliance with medication. Patient was treated during the course of his stay. Patient receive COPD and diuretic therapy. His condition improved. Patient was able to be weaned off BiPAP. Repeat echocardiogram shows ejection fraction 30% with mild aortic stenosis. Due to his multiple admissions and poor follow up, options of care was discussed at length with the patient. Best option would be to send the patient to a skilled placement facility and eventually long-term care. Patient agreed to this and is committed to stay at this facility long-term. Social work has help to arrange for transfer to a facility. He has been accepted. Advanced directives also addressed in detail. Patient is do not resuscitate. Patient clearly understands this and desires this. Social work also help to arrange for out-of- hospital DNR for the patient. For his CHF, at discharge, patient will continue with a 1500 cc per day fluid restriction and low-salt diet. Patient is to have his weight monitored closely. If his weight increases by more than 5 lb director of emergency nursing may need to adjust his medication. At discharge patient will continue with Lasix 40 mg daily, metoprolol 25 mg 1 pill twice daily, aspirin 81 mg daily, and lisinopril 5 mg daily. For his COPD, patient will continue with prednisone 10 mg 1 pill twice daily for 5 days then 1 pill once daily for 5 days. Patient will continue with COPD medication-Brovana 1 unit dose twice daily and albuterol 1 unit dose 3 times a day as needed for shortness of breath. Patient may continue with oxygen to maintain sats above 90 %. This may eventually be weaned off. If the patient remains stable and compliant with long-term care at the facility, patient would be a good candidate for Entresto for his CHF. Recommend follow up with cardiology in 1-2 weeks to further address. Patient with hypertension. Medication was provided. At discharge patient will continue with lisinopril 5 mg daily and metoprolol 25 mg 1 pill twice daily. Recommend to hold medication if blood pressure less than 120 systolic. Further adjustment in medication can be done at the senior care. Patient with underlying chronic anemia with iron deficiency. At discharge patient will continue with iron 325 mg 1 pill twice daily, folic acid 1 mg daily. Recommend to recheck lab-CBC in 4-6 weeks to monitor his progress. Patient with GERD. Patient continue with Protonix 40 mg daily. Patient with tobacco abuse. Tobacco cessation addressed in detail. Patient may benefit with nicotine patch at the senior care. Vital Signs/Physical Exam: Temp Pulse Resp BP Pulse Ox 97 F 74 17 134/84 93 10/22/18 04:00 10/22/18 09:15 10/22/18 04:00 10/22/18 09:15 10/22/18 04:00 General: Alert, In no apparent distress, Oriented x3, Cooperative HEENT: Atraumatic Neck: Supple Respiratory: Crackles/rales (Overall improved. Patient off oxygen at this time. ) Cardiovascular: Normal pulses, Regular rate/rhythm Gastrointestinal: Normal bowel sounds, Soft and benign, Non-distended, No tenderness, No masses, No rebound, No guarding Musculoskeletal: No erythema, No tenderness, No warmth Integumentary: Tenderness/swelling (Lower extremity edema to the lower extremities) Neurological: Normal speech, Normal strength at 5/5 x4 extr, Normal tone, Normal affect Laboratory Data at Discharge: WBC 11.6 K/uL (4.3-10.9) H 10/22/18 05:41 Hgb 8.4 g/dL (13.6-17.9) L 10/22/18 05:41 Hct 30.3 % (39.6-49.0) L 10/22/18 05:41 Plt Count 197 K/uL (152-406) 10/22/18 05:41 PT 17.2 SECONDS (9.5-12.5) H 10/21/18 00:21 INR 1.48 10/21/18 00:21 Sodium 142 mmol/L (136-145) 10/22/18 05:41 Potassium 4.3 mmol/L (3.5-5.1) 10/22/18 05:41 BUN 39 mg/dL (7-18) H 10/22/18 05:41 Creatinine 1.48 mg/dL (0.55-1.3) H 10/22/18 05:41 Glucose 252 mg/dL (74-106) H 10/22/18 05:41 Magnesium 2.3 mg/dL (1.8-2.4) 10/22/18 05:41 Total Bilirubin 1.5 mg/dL (0.2-1.0) H 10/21/18 00:21 AST 20 U/L (15-37) 10/21/18 00:21 ALT 19 U/L (12-78) 10/21/18 00:21 Alkaline Phosphatase 88 U/L (45-117) 10/21/18 00:21 Home Medications: Aspirin [Aspirin EC 81 MG] 81 mg PO DAILY 10/16/18 Lisinopril [Prinivil*] 5 mg PO DAILY #30 tab 10/18/18 Arformoterol Tartrate [Brovana] 15 mcg NEB BIDRESP #60 vial.neb 10/22/18 Ferrous Sulfate [Ferrous Sulfate*] 325 mg PO BID #60 tab 10/22/18 Folic Acid 1 mg PO DAILY #90 tablet 10/22/18 Furosemide [Lasix*] 40 mg PO DAILY #30 tab 10/22/18 Metoprolol Tartrate [Lopressor*] 25 mg PO BID 6AM 6PM #60 tab 10/22/18 Pantoprazole [Protonix Tab*] 40 mg PO ACB #30 tab 10/22/18 Thiamine HCl [Vitamin B-1*] 100 mg PO DAILY #90 tablet 10/22/18 predniSONE [Deltasone*] 10 mg PO SEECOM #15 tab 10/22/18 New Medications: Arformoterol Tartrate [Brovana] 15 mcg NEB BIDRESP #60 vial.neb Ferrous Sulfate [Ferrous Sulfate*] 325 mg PO BID #60 tab Folic Acid 1 mg PO DAILY #90 tablet Furosemide [Lasix*] 40 mg PO DAILY #30 tab Metoprolol Tartrate [Lopressor*] 25 mg PO BID 6AM 6PM #60 tab Pantoprazole [Protonix Tab*] 40 mg PO ACB #30 tab predniSONE [Deltasone*] 10 mg PO SEECOM #15 tab Thiamine HCl [Vitamin B-1*] 100 mg PO DAILY #90 tablet Patient Discharge Instructions: 1. Patient to go to jail. 2. Patient presented with shortness of breath secondary to acute on chronic respiratory failure with hypoxia secondary to acute on chronic systolic CHF and COPD exacerbation. Patient is well-known to the hospitalist service. Patient with history of noncompliance with medication. Patient was treated during the course of his stay. Patient receive COPD and diuretic therapy. His condition improved. Patient was able to be weaned off BiPAP. Repeat echocardiogram shows ejection fraction 30% with mild aortic stenosis. Due to his multiple admissions and poor follow up, options of care was discussed at length with the patient. Best option would be to send the patient to a skilled placement facility and eventually long-term care. Patient agreed to this and is committed to stay at this facility long-term. Social work has help to arrange for transfer to a facility. He has been accepted. Advanced directives also addressed in detail. Patient is do not resuscitate. Patient clearly understands this and desires this. Social work also help to arrange for out-of- hospital DNR for the patient. For his CHF, at discharge, patient will continue with a 1500 cc per day fluid restriction and low-salt diet. Patient is to have his weight monitored closely. If his weight increases by more than 5 lb director of emergency nursing may need to adjust his medication. At discharge patient will continue with Lasix 40 mg daily, metoprolol 25 mg 1 pill twice daily, aspirin 81 mg daily, and lisinopril 5 mg daily. For his COPD, patient will continue with prednisone 10 mg 1 pill twice daily for 5 days then 1 pill once daily for 5 days. Patient will continue with COPD medication-Brovana 1 unit dose twice daily and albuterol 1 unit dose 3 times a day as needed for shortness of breath. Patient may continue with oxygen to maintain sats above 90 %. This may eventually be weaned off. If the patient remains stable and compliant with long-term care at the facility, patient would be a good candidate for Entresto for his CHF. Recommend follow up with cardiology in 1-2 weeks to further address. 3. Patient with hypertension. Medication was provided. At discharge patient will continue with lisinopril 5 mg daily and metoprolol 25 mg 1 pill twice daily. Recommend to hold medication if blood pressure less than 120 systolic. Further adjustment in medication can be done at the senior care. 4. Patient with underlying chronic anemia with iron deficiency. At discharge patient will continue with iron 325 mg 1 pill twice daily, folic acid 1 mg daily. Recommend to recheck lab-CBC in 4-6 weeks to monitor his progress. 5. Patient with GERD. Patient continue with Protonix 40 mg daily. 6. Patient with tobacco abuse. Tobacco cessation addressed in detail. Patient may benefit with nicotine patch at the senior care. Diet: AHA Activity: Fall precautions Time spent managing pt's care (in minutes): 55
[2018-10-22] MEDS ORDERED: PERMETHRIN 5% 60 GM TUBE TOP SCH (12:30)
[2018-10-22 13:25] VITALS: O2SAT 98
[2018-10-22 13:49] VITALS: BP 150/79; TEMP 98.1
== END 2018-10-22 15:40 ==
LOC: ER 23:21 → INTOOBSV 10-21 02:19 → ERHOLD 10-21 02:19 → 4TH 10-21 02:58
PROVIDERS: ADMIT Internal Medicine; ATTEND Family Medicine
DX: J96.21 Acute and chronic respiratory failure with hypoxia (principal); J96.11 Chronic respiratory failure with hypoxia; I50.23 Acute on chronic systolic (congestive) heart failure; J44.1 Chronic obstructive pulmonary disease with (acute) exacerbation; I25.5 Ischemic cardiomyopathy; I13.0 Hypertensive heart and chronic kidney disease with heart failure and stage 1 through stage 4 chronic kidney disease, or unspecified chronic kidney disease; E11.22 Type 2 diabetes mellitus with diabetic chronic kidney disease; N18.3 Chronic kidney disease, stage 3 (moderate); I35.0 Nonrheumatic aortic (valve) stenosis; E78.5 Hyperlipidemia, unspecified; D63.8 Anemia in other chronic diseases classified elsewhere; D50.9 Iron deficiency anemia, unspecified; K21.9 Gastro-esophageal reflux disease without esophagitis; D64.9 Anemia, unspecified; F17.210 Nicotine dependence, cigarettes, uncomplicated; Z59.0 Homelessness; Z91.14 Patient's other noncompliance with medication regimen; Z88.8 Allergy status to other drugs, medicaments and biological substances; Z71.6 Tobacco abuse counseling
CPT/HCPCS: 36415; 71045; 80048; 80076; 81003; 83735; 83880; 84484; 85025; 85610; 87040; 93005; 93306; 94640; 94760; 96365; 96366; 96375; 97112; 97116; 97161; 99285; G0378; J1650; J1940; J2920; J2930; J7030; J7512; J7605

== ENCOUNTER 2020-11-15 17:19 | Inpatient (IN) | payer OTHER ==
--- OUTSIDE RECORDS SUMMARY | 2020-11-15 17:21 | XMS REPORT | Continuity of Care Document ---
:1950 Author Organization [facility] t Address [address] [place] [address] Care Team Providers Name Role Phone Unavailable Unavailable Unavailable Payers Payer Name Policy Type Policy Number Effective Date Expiration Date S ource Problems This patient has no known problems. Allergies, Adverse Reactions, Alerts Allergy Allergy Status Severity Reaction(s) Onset Inactive Treating Comm ents Source Name Type Date Date Clinician diphenhy DA Active [facility] dramine 10-06 [facility] 00:00: e 00 [facility] Medications This patient has no known medications. Procedures This patient has no known procedures. Results Test Description Test Time Test Comments Results Result [facility] e Comments XR Chest 1 View 2017-12-22 Patient: Onel BURTON 23:14:17 JOSTIN SERNA Date/Time12/22/2017 22:58 CDTReason for ExamCHF (Congestive Heart Failure), knownReportPortable chest one view.HISTORY: CHFLocation R 16COMMENT: No comparison. Vascular interstitial markings are mildly prominent.. The cardiac silhouette is magnified. No pleural effusion. Mild thoracic spondylosis.IMPRESSION:1 . Possible mild pulmonary vascular congestion. Correlate clinically. Final Dictated by: MD Waddell Daniel RDictated DT/TM: 12/22/2017 11:12 pmSigned by: MD Waddell Daniel RSigned (Electronic Signature): 12/22/2017 11:14 pm
[2020-11-15 19:01] LABS: Albumin 2.8 g/dL (3.4-5.0); Bilirubin Direct 0.2 mg/dL (0-0.2); Bilirubin Total 0.4 mg/dL (0.2-1.0); Ferritin 3760.6 ng/mL (26-388); Potassium 4.5 mmol/L (3.5-5.1); Protein, Total 7.6 g/dL (6.4-8.2); Troponin (Emerg Dept Use Only) 0.03 ng/mL (0.0-0.045)
[2020-11-15 19:02] LABS: Magnesium 2.2 mg/dL (1.8-2.4)
--- NOTE | 2020-11-15 19:33 | RAD REPORT ---
EXAM DESCRIPTION: RAD - Chest Single View - 11/15/2020 7:17 pm CLINICAL HISTORY: SOB Chest pain. COMPARISON: Chest Single View dated 10/21/2018; Chest Single View dated 10/20/2018 FINDINGS: Portable technique limits examination quality. Extensive bilateral pulmonary opacities are present. This likely represents COVID-19 infection. The h eart is mildly prominent in size. No displaced fractures.
[2020-11-15] MEDS ORDERED: FUROSEMIDE 20 MG/ 2ML VIAL ONE (20:12)
--- NOTE | 2020-11-15 20:37 | P.HP ---
Certification for Inpatient Patient admitted to: Inpatient With expected LOS: >2 Midnights Patient will require the following post-hospital care: None Practitioner: I am a practitioner with admitting privileges, knowledge of patient current condition, hospital course, and medical plan of care. Services: Services provided to patient in accordance with Admission requirements found in Title 42 Section 412.3 of the Code of Federal Regulations Patient History Date of Service: 11/15/20 Primary Care Provider: [facility] doctor Reason for admission: COVID-19 pneumonia History of Present Illness: 69-year-old male with history of chronic systolic congestive heart failure, COPD, hypertension, CKD 3, aortic stenosis, [place], tobacco abuse presents emergency [place] for shortness of breath. Patient reports testing positive for Covid approximately 3 days ago. Patient reports receiving 1 dose of vaccine, patient does not know which one attempting to reach out to alf to obtain this information. Patient is evaluate the [facility] apartment labs are significant for sodium 133 BUN 41 creatinine 2.21 GFR 30 glucose 399 ferritin 3760 C-reactive protein 128 BNP 414, patient currently on 10 L bubbler nasal cannula, chest x-ray demonstrates extensive bilateral pulmonary opacities likely representing COVID-19 infection. ED provider wishes to admit for COVID-19 pneumonia with hypoxia. Allergies poison chandana extract Allergy (Intermediate, Verified 10/21/18 04:23) Hives diphenhydramine HCl [From Benadryl] Adverse Reaction (Intermediate, Verified 10/21/18 04:23) Hives Home Medications: Aspirin [Aspirin EC 81 MG] 81 mg PO DAILY 10/16/18 lisinopriL [Prinivil*] 5 mg PO DAILY #30 tab 10/18/18 Arformoterol Tartrate [Brovana] 15 mcg NEB BIDRESP #60 vial.neb 10/22/18 Ferrous Sulfate [Ferrous Sulfate*] 325 mg PO BID #60 tab 10/22/18 Folic Acid 1 mg PO DAILY #90 tablet 10/22/18 Furosemide [Lasix*] 40 mg PO DAILY #30 tab 10/22/18 Metoprolol Tartrate [Lopressor*] 25 mg PO BID 6AM 6PM #60 tab 10/22/18 Pantoprazole [Protonix Tab*] 40 mg PO ACB #30 tab 10/22/18 Thiamine HCl [Vitamin B-1*] 100 mg PO DAILY #90 tablet 10/22/18 predniSONE [Deltasone*] 10 mg PO SEECOM #15 tab 10/22/18 - Past Medical/Surgical History Diabetic: No -: History of prostate cancer -: Hypertension -: History of brain aneurysm requiring surgery -: CHF, systolic dysfunction -: COPD -: Tobacco abuse -: DM 2 -: Coronary disease, stents x3 to LAD/RCA(Feb 2016) -: Anemia of chronic disease -: GERD -: Hyperlipidemia -: hyperlipidemia -: Prostate surgery -: Brain aneurysm surgery -: Toe surgery R. great toe/childhood -: Heart catheterization-3stents LAD/RCA Psychosocial/ Personal History: Patient resides in [place] for the last 3 years. - Family History Father -: Cancer Notes: brain cancer Mother -: Cancer Notes: pancreatic cancer Brother -: Cancer Notes: lung cancer - Social History Smoking Status: Former smoker Alcohol use: No CD- Drugs: No Caffeine use: Yes Place of Residence: Home Review of Systems 10-point ROS is otherwise unremarkable General: Weakness, Malaise Respiratory: Cough, Shortness of Breath Physical Examination - Physical Exam General: Alert, In no apparent distress HEENT: Atraumatic, PERRLA, Mucous membr. moist/pink, EOMI, Sclerae nonicteric Neck: Supple, 2+ carotid pulse no bruit, No LAD, Without JVD or thyroid abnormality Respiratory: Diminished, Expiratory wheezes, Other (Increased respiratory effort) Cardiovascular: Regular rate/rhythm, Normal S1 S2 Gastrointestinal: Normal bowel sounds, No tenderness Musculoskeletal: No tenderness Integumentary: No rashes Neurological: Normal gait, Normal speech, Normal strength at 5/5 x4 extr, Normal tone, Normal affect Lymphatics: No axilla or inguinal lymphadenopathy - Studies Laboratory Data (last 24 hrs) 11/15/20 18:09: PT Cancelled, INR Cancelled 11/15/20 18:09: WBC Cancelled, Hgb Cancelled, Hct Cancelled, Plt Count Cancelled 11/15/20 18:09: Sodium 133 L, Potassium 4.5, BUN 41 H, Creatinine 2.21 H, Glucose 399 H, Magnesium 2.2, Total Bilirubin 0.4, AST 80 H, ALT 46, Alkaline Phosphatase 78 Assessment and Plan - Plan Assessment: Acute hypoxic respiratory failure secondary to COVID-19 pneumonia complicated with history of COPD Chronic systolic congestive heart failure JONN superimposed on CKD 3 Diabetes type 2 with hyperglycemia Hypertension Hyperlipidemia CAD Anemia of chronic disease GERD Plan: Acute hypoxic respiratory failure secondary to COVID-19 pneumonia complicated with history of COPD: Continue the IV steroids, oral supplements, baricitinib, pulmonology consult, history therapy consult, supplemental oxygen as needed. Patient states he is DNR but would potentially be okay with being on ventilator if this was necessary for respiratory standpoint. We will need to address further with patient. Patient thinks he was vaccinated reports receiving 1 dose of unknown vaccine approximately 6 months ago. Chronic systolic congestive heart failure: Appears stable this time ejection fraction known to be around 35%. JONN superimposed on CKD 3: Renal ultrasound ordered, nephrology consulted. Diabetes type 2 with hyperglycemia: A [facility] Accu-Chek, sliding scale insulin therapy. Patient likely require increasing his insulin dose once this is verified given that he will be receiving IV steroids. Hypertension: Obtain an continue home medications Hyperlipidemia: Obtain an continue home medications CAD:Obtain an continue home medications Anemia of chronic disease: Transfuse to maintain hemoglobin greater than 8. GERD:Obtain an continue home medications DVT PPX: Heparin Code status: Full Discharge Plan: Penitentiary Plan to discharge in: Greater than 2 days - Advance Directives Does patient have a Living Will: No Does patient have a Durable POA for Healthcare: No - Code Status/Comfort Care Code Status Assessed: Yes (DNR) Critical Care: No Time Spent Managing Pts Care (In Minutes): 55
--- NOTE | 2020-11-15 20:42 | ER ---
Nurse's Notes [facility] Name: Mark Terrell Age: 69 yrs Sex: Male : 1950 Arrival Date: 11/15/2020 Time: 17:21 Bed 27 Private MD: Diagnosis: Pneumonia due to SARS-associated coronavirus;Acute and chronic respiratory failure with hypoxia Presentation: 11/15 17:22 Chief complaint: EMS states: Pt is from [facility]; patient is Covid vg1 Positive and was 77% RA upon arrival. Pt has NEO wheezing. 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 Coronavirus screen: Vaccine status: Patient reports receiving the 1st dose of the Covid vaccine. Date October 04, 2020 Client reports previous positive COVID test result. at alf. Ebola Screen: Patient negative for fever greater than or equal to 101.5 degrees Fahrenheit, and additional compatible Ebola Virus Disease symptoms. Initial Sepsis Screen: Does the patient meet any 2 criteria? RR > 20 per min. HR > 90 bpm. Yes. Risk Assessment: Do you want to hurt yourself or someone else? Patient reports no desire to harm self or others. Onset of symptoms was November 15, 2020. 17:22 Method Of Arrival: EMS: [facility] vg1 17:22 Acuity: ARIEL 3 vg1 22:30 Initial Sepsis Screen: Does the patient have a suspected source of infection? Yes: cc4 Productive cough/pneumonia. Triage Assessment: 17:33 General: Appears in no apparent distress. uncomfortable, Behavior is calm, cooperative. vg1 Pain: Denies pain. EENT: No signs and/or symptoms were reported regarding the EENT system. Neuro: Level of Consciousness is awake, alert, obeys commands, Oriented to person, place, time, situation. Cardiovascular: Patient's skin is warm and dry. Respiratory: Reports shortness of breath at rest on exertion cough that is productive, Airway is patent Respiratory effort is even, labored, Respiratory pattern is tachypnea Breath sounds with wheezes bilaterally. GI: No signs and/or symptoms were reported involving the gastrointestinal system. : No signs and/or symptoms were reported regarding the genitourinary system. Derm: Skin is pink, warm \T\ dry. Musculoskeletal: Circulation, motion, and sensation intact. Historical: - Allergies: 17:33 Benadryl; vg1 - Home Meds: 17:33 cholecalciferol (vitamin D3)-vitamin K2 oral [Active]; Dexamethasone Opht [Active]; vg1 Ferrous Sulfate Oral [Active]; Folic Acid Oral [Active]; Januvia oral [Active]; Lasix Oral [Active]; Lisinopril Oral [Active]; Melatonin Oral [Active]; Metoprolol Tartrate Oral [Active]; Acetaminophen Oral [Active]; Acidophilus Oral [Active]; Amaryl Oral [Active]; amlodipine oral [Active]; Aricept Oral [Active]; Aspirin Oral [Active]; atorvastatin oral [Active]; Azithromycin Oral [Active]; Novolog Sub-Q [Active]; Omeprazole Oral [Active]; Spironolactone Oral [Active]; Trazodone Oral [Active]; Zinc Sulfate Oral [Active]; - PMHx: 17:33 Aneurysm; CHF; COPD; Hypertension; Prostate Cancer; Anxiety; Diabetes mellitus; vg1 - Immunization history:: Adult Immunizations up to date, Client reports receiving the 1st dose of the Covid vaccine. - Social history:: Smoking status: Patient denies any tobacco usage or history of. Screenin:39 Abuse screen: Denies threats or abuse. Nutritional screening: No deficits noted. vg1 Tuberculosis screening: No symptoms or risk factors identified. Fall Risk No fall in past 12 months (0 pts). No secondary diagnosis (0 pts). IV access (20 points). Ambulatory Aid- None/Bed Rest/Nurse Assist (0 pts). Gait- Normal/Bed Rest/Wheelchair (0 pts) Mental Status- Oriented to own ability (0 pts). Total Chiang Fall Scale indicates No Risk (0-24 pts). Assessment: 17:39 Reassessment: SEE TRIAGE. vg1 18:50 Reassessment: Patient appears in no apparent distress at this time. No changes from vg1 previously documented assessment. Patient and/or family updated on plan of care and expected duration. Pain level reassessed. Patient is alert, oriented x 3, equal unlabored respirations, skin warm/dry/pink. Vital Signs: 17:22 BP 144 / 88; Pulse 120; Resp 27; Temp 98.3(O); Pulse Ox 93% on 10 lpm NC; Weight 97.07 vg1 kg; Height 5 ft. 11 in. (180.34 cm); Pain 0/10; 17:30 BP 139 / 87; Pulse 124; Resp 26; Pulse Ox 91% 10 lpm ; vg1 18:30 BP 153 / 84; Pulse 105; Resp 19; Pulse Ox 96% on 10 lpm NC; vg1 18:45 BP 149 / 78; Pulse 119; Resp 30; Pulse Ox 95% on 10 lpm NC; vg1 19:30 BP 139 / 80; Pulse 114; Resp 25; Temp 97.5(O); Pulse Ox 93% on 10 lpm NC; Weight 97.07 cc4 kg; Height 5 ft. 11 in. (180.34 cm); 20:30 BP 153 / 81; Pulse 117; Resp 28; Pulse Ox 97% on 10 lpm NC; cc4 21:30 BP 146 / 96; Pulse 127; Resp 32; Pulse Ox 88% on 12 lpm NC; cc4 19:30 Body Mass Index 29.85 (97.07 kg, 180.34 cm) cc4 17:22 High Flow Bubble vg1 ED Course: 17:21 Patient arrived in ED. vg1 17:25 Satish Michel PA is PHCP. cp 17:25 Ryan Vasquez MD is Attending Physician. cp 17:33 Triage completed. vg1 17:39 Patient has correct armband on for positive identification. Placed in gown. Bed in low vg1 position. Call light in reach. Side rails up X2. 17:40 Arm band placed on. vg1 17:49 Frankie Watts is Primary Nurse. aj2 18:10 Missed attempt(s): 20 gauge in right antecubital area. Inserted saline lock: 20 gauge dh4 in left antecubital area, using aseptic technique. Blood collected. 18:49 Lab(s) recollected, by me, sent to lab. vg1 19:17 XRAY Chest (1 view) In Process Unspecified. EDMS 19:17 XRAY Chest (1 view) Sent. cc4 19:30 No provider procedures requiring assistance completed. cc4 20:40 Daron Vasquez MD is Hospitalizing Provider. cp 21:30 Patient Incontinent of urine; asst up to chair \T\ bedside with linen changed O2 sat cc4 decreasing to 88%; O2 increased to 12L/NBP with no increase in O2 sat L. FADI Jimenez notified with new orders noted; mccollum cath # 16Fr inserted with no difficulty with 200ml clear yellow urine output noted of dependent bag; HOS high breaux's; preparing for admission. 22:10 Lab(s) recollected, by me, sent to lab. First set of blood cultures drawn one pedi bb culture sent. 22:30 Patient has correct armband on for positive identification. Side rails up X2. cc4 22:30 Oxygen administration via nasal cannula O2 intact \T\ 12L/NBP; O2 sat 91%; transferred to [facility] Rm # [id number]. Response to oxygen therapy: Report telephoned to LASHAY Goodwin. 22:30 intact, No redness/swelling at site. cc4 Administered Medications: 19:50 Drug: Lasix (furosemide) 40 mg Route: IVP; Site: left antecubital; cc4 23:23 Follow up: Urine output 500 ml; Response: No adverse reaction cc4 21:55 Drug: SOLU-Medrol (methylPrednisoLONE) 125 mg Route: IVP; Site: left antecubital; bb 23:24 Follow up: Response: No adverse reaction cc4 21:55 Drug: Insulin Regular Human 10 units {Co-Signature: lindsey (Ana Camacho RN).} Route: IVP; bb Site: left antecubital; 22:15 Drug: LevaQUIN (levofloxacin) 500 mg Volume: 100 ml; Route: IVPB; Infused Over: 60 bb mins; Site: left antecubital; 23:24 Follow up: Response: No adverse reaction cc4 Output: 23:23 Urine: 500ml; Total: 500ml. cc4 Outcome: 20:41 Decision to Hospitalize by Provider. cp 22:30 Admitted to Med/surg accompanied by nurse, via stretcher, with oxygen, Report called to cc4 LASHAY Grace. 22:32 Patient left the ED. bb 23:15 Condition: stable cc4 23:15 Instructed on the need for admit. Signatures: Dispatcher [employer] EDMS Myriam Roldan RN RN bb Page, Corey, PA PA cp Joshua Lyon 4 Vesta Metzger RN RN celi1 Frankie Watts Christie cc4 Ana Camacho RN ea Corrections: (The following items were deleted from the chart) : 22:00 First set of blood cultures drawn by ED staff, cc4 cc4 23:19 23:17 PMHx: homeless; cc4 cc4
--- NOTE | 2020-11-15 20:42 | EDPHYS ---
Physician Documentation [facility] Name: Mark Terrell Age: 69 yrs Sex: Male : 1950 Arrival Date: 11/15/2020 Time: 17:21 Bed 27 Private MD: ED Physician Ryan Vasquez HPI: 11/15 17:40 This 69 yrs old Male presents to ER via EMS with complaints of Low O2. cp 17:40 The patient has shortness of breath at rest. Onset: The symptoms/episode began/occurred cp gradually, and became worse today. 17:40 Duration: The symptoms are continuous, and are steadily getting worse. cp 17:40 Associated signs and symptoms: Pertinent negatives: chest pain, productive cough, cp diaphoresis, fever. 17:40 Patient is a resident of [facility] and reports testing positive for cp COVID-19 2 weeks ago. EMS reports patient with oxygen sats of 77% on RA initially. Historical: - Allergies: 17:33 Benadryl; vg1 - Home Meds: 17:33 cholecalciferol (vitamin D3)-vitamin K2 oral [Active]; Dexamethasone Opht [Active]; vg1 Ferrous Sulfate Oral [Active]; Folic Acid Oral [Active]; Januvia oral [Active]; Lasix Oral [Active]; Lisinopril Oral [Active]; Melatonin Oral [Active]; Metoprolol Tartrate Oral [Active]; Acetaminophen Oral [Active]; Acidophilus Oral [Active]; Amaryl Oral [Active]; amlodipine oral [Active]; Aricept Oral [Active]; Aspirin Oral [Active]; atorvastatin oral [Active]; Azithromycin Oral [Active]; Novolog Sub-Q [Active]; Omeprazole Oral [Active]; Spironolactone Oral [Active]; Trazodone Oral [Active]; Zinc Sulfate Oral [Active]; - PMHx: 17:33 Aneurysm; CHF; COPD; Hypertension; Prostate Cancer; Anxiety; Diabetes mellitus; vg1 - Immunization history:: Adult Immunizations up to date, Client reports receiving the 1st dose of the Covid vaccine. - Social history:: Smoking status: Patient denies any tobacco usage or history of. ROS: 17:45 Constitutional: Negative for body aches, chills, fever, poor PO intake. cp 17:45 Eyes: Negative for injury, pain, redness, and discharge. cp 17:45 ENT: Negative for ear pain, sore throat, difficulty swallowing, difficulty handling secretions. 17:45 Cardiovascular: Negative for chest pain. 17:45 Respiratory: Positive for cough, with no reported sputum, shortness of breath, at rest. 17:45 Abdomen/GI: Negative for abdominal pain, vomiting, diarrhea, constipation. 17:45 Skin: Negative for cellulitis, rash. 17:45 Neuro: Negative for altered mental status, headache. 17:45 All other systems are negative. Exam: 17:50 ECG was reviewed by the Attending Physician. cp 17:53 Constitutional: The patient appears alert, awake, non-diaphoretic, non-toxic, well cp developed, well nourished, in obvious distress, moderately distressed. 17:53 Head/Face: Normocephalic, atraumatic. cp 17:53 Eyes: Periorbital structures: appear normal, Conjunctiva: normal, no exudate, no injection, Sclera: no appreciated abnormality, Lids and lashes: appear normal, bilaterally. 17:53 ENT: External ear(s): are unremarkable, Nose: is normal, Mouth: Lips: moist, Oral mucosa: moist, Posterior pharynx: Airway: no evidence of obstruction, patent. 17:53 Neck: ROM/movement: is normal, is supple, without pain, no range of motions limitations, no meningismus. 17:53 Chest/axilla: Inspection: normal, Palpation: is normal, no crepitus, no tenderness. 17:53 Cardiovascular: Rate: tachycardic, Rhythm: regular, Edema: ankle edema, that is very mild, JVD: is not appreciated. 17:53 Respiratory: moderate respiratory distress is noted, Respirations: labored breathing, that is moderate, shallow respirations, that is moderate, Breath sounds: bronchial sounds, that are moderate, are heard diffusely, stridor, is not appreciated. 17:53 Abdomen/GI: Inspection: abdomen appears normal, Bowel sounds: active, all quadrants, Palpation: abdomen is soft and non-tender, in all quadrants. 17:53 Back: pain, is absent, ROM is normal. 17:53 Skin: cellulitis, is not appreciated, no rash present. 17:53 Neuro: Orientation: to person, place \\T\\ time. Mentation: is normal. Vital Signs: 17:22 BP 144 / 88; Pulse 120; Resp 27; Temp 98.3(O); Pulse Ox 93% on 10 lpm NC; Weight 97.07 vg1 kg; Height 5 ft. 11 in. (180.34 cm); Pain 0/10; 17:30 BP 139 / 87; Pulse 124; Resp 26; Pulse Ox 91% 10 lpm ; vg1 18:30 BP 153 / 84; Pulse 105; Resp 19; Pulse Ox 96% on 10 lpm NC; vg1 18:45 BP 149 / 78; Pulse 119; Resp 30; Pulse Ox 95% on 10 lpm NC; vg1 19:30 BP 139 / 80; Pulse 114; Resp 25; Temp 97.5(O); Pulse Ox 93% on 10 lpm NC; Weight 97.07 cc4 kg; Height 5 ft. 11 in. (180.34 cm); 20:30 BP 153 / 81; Pulse 117; Resp 28; Pulse Ox 97% on 10 lpm NC; cc4 21:30 BP 146 / 96; Pulse 127; Resp 32; Pulse Ox 88% on 12 lpm NC; cc4 19:30 Body Mass Index 29.85 (97.07 kg, 180.34 cm) cc4 17:22 High Flow Bubble vg1 MDM: 17:31 Patient medically screened. cp 19:00 Differential diagnosis: Bronchitis CHF exacerbation, Myocardial Infarction pneumonia, cp Pneumothorax pulmonary edema, Pulmonary Embolism Sepsis Unstable Angina. 20:45 Data reviewed: vital signs, nurses notes, lab test result(s), EKG, radiologic studies, cp plain films. 20:45 Test interpretation: by ED physician or midlevel provider: ECG, plain radiologic cp studies. 20:45 Counseling: I had a detailed discussion with the patient and/or guardian regarding: the cp historical points, exam findings, and any diagnostic results supporting the discharge/admit diagnosis, lab results, radiology results. 20:45 Response to treatment: the patient's symptoms have mildly improved after treatment, and cp as a result, I will admit patient. Physician consultation: Dilip Jimenez was contacted at 20:45, regarding admission, to the telemetry unit. and will see patient in ED, shortly. 11/15 17:32 Order name: Basic Metabolic Panel cp 11/15 17:32 Order name: CBC with Diff; Complete Time: :11 cp 11/16 01:11 Interpretation: Normal except: WBC 11.60; RBC 5.95; HCT 51.9; PLT 124; ROSALINDA% 84.6; LYM% cp 9.2; NEUT A 9.8. 11/15 17:32 Order name: LFT's cp 11/15 17:32 Order name: Magnesium cp 11/15 17:32 Order name: NT PRO-BNP cp 11/15 17:32 Order name: PT-INR; Complete Time: 01:11 cp 11/15 17:32 Order name: Troponin (emerg Dept Use Only) cp 11/15 17:32 Order name: Ferritin cp 11/15 17:32 Order name: CRP 11/15 18:05 Order name: Blood Culture Adult (2) la1 11/15 18:05 Order name: Procalcitonin; Complete Time: 01:11 la1 11/16 01:11 Interpretation: Abnormal: Procalcitonin 0.71. 11/15 18:19 Order name: Basic Metabolic Panel; Complete Time: 19:24 EDMS 11/15 20:35 Interpretation: Normal except: NA 133; GLUC 399; BUN 41; CRE 2.21; GFR 30; CA 8.3. 11/15 18:19 Order name: Liver (Hepatic) Function; Complete Time: 19:24 EDMS 11/15 20:38 Interpretation: Normal except: AST 80; ALB 2.8; GLOB 4.8; A/G 0.6. 11/15 18:19 Order name: Troponin (Emerg Dept Use Only); Complete Time: 19:24 EDMS 11/15 17:32 Order name: XRAY Chest (1 view); Complete Time: 19:35 cp 11/15 17:32 Order name: EKG; Complete Time: 18:22 cp 11/15 17:32 Order name: Cardiac monitoring; Complete Time: 17:40 11/15 17:32 Order name: EKG - Nurse/Tech; Complete Time: 17:40 11/15 18:19 Order name: NT PRO-BNP; Complete Time: 19:24 EDMS 11/15 20:35 Interpretation: Abnormal: NT PRO-BNP 414. 11/15 18:19 Order name: C-Reactive Protein; Complete Time: 19:24 EDMS 11/15 18:19 Order name: Magnesium; Complete Time: 19:24 EDMS 11/15 18:19 Order name: Ferritin; Complete Time: 19:24 EDMS 11/15 18:28 Order name: COVID-19 : Document "Date of Symptom Onset" if Symptomatic. 11/15 18:28 Order name: Influenza Screen (a \\T\\ B); Complete Time: 01:11 11/15 17:32 Order name: IV Saline Lock; Complete Time: 18:11 11/15 17:32 Order name: Labs collected and sent; Complete Time: 18:11 11/15 17:32 Order name: O2 Per Protocol; Complete Time: 17:40 11/15 17:32 Order name: O2 Sat Monitoring; Complete Time: 17:40 11/15 18:33 Order name: Labs - recollect needed: recollect light blue and lavender tube; Complete bd Time: 18:49 11/15 21:34 Order name: Ny; Complete Time: 21:34 bb EC:50 Rate is 123 beats/min. Rhythm is regular. NV interval is normal. QRS interval is cp prolonged at 110 msec. QT interval is normal. Interpreted by me. Reviewed by me. Administered Medications: 19:50 Drug: Lasix (furosemide) 40 mg Route: IVP; Site: left antecubital; cc4 23:23 Follow up: Urine output 500 ml; Response: No adverse reaction cc4 21:55 Drug: SOLU-Medrol (methylPrednisoLONE) 125 mg Route: IVP; Site: left antecubital; bb 23:24 Follow up: Response: No adverse reaction cc4 21:55 Drug: Insulin Regular Human 10 units {Co-Signature: lindsey (Ana Camacho RN).} Route: IVP; bb Site: left antecubital; 22:15 Drug: LevaQUIN (levofloxacin) 500 mg Volume: 100 ml; Route: IVPB; Infused Over: 60 bb mins; Site: left antecubital; 23:24 Follow up: Response: No adverse reaction cc4 Disposition Summary: 11/15/20 20:41 Hospitalization Ordered Hospitalization Status: Inpatient Admission cp Provider: Daron Vasquez cp Location: Telemetry/MedSurg (Inpatient) cp Condition: Fair cp Problem: new cp Symptoms: have improved cp Bed/Room Type: Standard cp Room Assignment: 416(11/15/20 20:58) tl1 Diagnosis - Pneumonia due to SARS-associated coronavirus cp - Acute and chronic respiratory failure with hypoxia cp Forms: - Medication Reconciliation Form cp - SBAR form cp Addendum: 11/20/2020 08:27 Co-signature as Attending Physician, Ryan Vasquez MD I agree with the assessment and r n plan of care. Attestation: The patient's history, exam findings, diagnostics, and a summary of any interventions or procedures was reviewed in detail with Satish ADAMES. Signatures: Dispatcher [employer] EDMS Lila Becker Brenda, RN RN bb Ryan Vasquez MD MD rn Dilip Jimenez, PROTOTYPER-C PROTOTYPER-Cla1 Jasmine Torres, RN RN tl1 Satish Michel PA PA cp Garcia, Victoria, RN RN Kyra Corley ccZach Camacho RN, ea Corrections: (The following items were deleted from the chart) 11/15 20:04 18:19 CBC with Automated Diff ordered. EDMS EDMS 20:04 18:23 Protime (+INR) ordered. EDMS EDMS 20:58 20:41 cp tl1 21:34 20:51 Misc. Order ordered. la1 bb 23:19 23:17 PMHx: homeless; cc4 cc4
[2020-11-15] MEDS ORDERED: INSULIN -REGULAR HUMAN 50 UNIT/0.5 ML ML ONE (22:02)
[2020-11-15] MEDS ORDERED: METHYLPREDNISOLONE 125 MG INJ ONE (22:02)
[2020-11-15] MEDS ORDERED: Levofloxacin500mg IV 500 MG/100 ML BAG IV ONE (22:03)
[2020-11-15 22:32] LABS: Protime INR 1.15
[2020-11-15 22:33] LABS: Absolute Lymphocytes (CBC) 1.1 K/uL (0.7-4.9); Basophils % 0.4 % (0-1.3); Hematocrit 51.9 % (39.6-49.0); Lymphocytes % 9.2 % (15.3-44.8); MPV 10.3 fL (7.6-11.3); RBC Red Blood Cell Count 5.95 M/uL (4.33-5.43)
[2020-11-15] MEDS: INSULIN -REGULAR HUMAN 50 UNIT/0.5 ML ML SQ SCH (23:12)
[2020-11-15] MEDS: HEPARIN 5000 UNIT/ML 1 ML VIAL SQ SCH (23:12)
[2020-11-15] MEDS ORDERED: ACETAMINOPHEN 500 MG TAB PO PRN (23:12)
[2020-11-15] MEDS ORDERED: BENZONATATE 100 MG CAP PO PRN (23:12)
[2020-11-15] MEDS ORDERED: ONDANSETRON 4 MG/2 ML VIAL IV PRN (23:12)
[2020-11-15] MEDS ORDERED: MELATONIN 5 MG TABLET PO PRN (23:12)
[2020-11-15 23:35] VITALS: BMI 29.8
[2020-11-15] MEDS ORDERED: LORazepam 2 MG/ML VIAL IV ONE (23:49)
[2020-11-15] MEDS ORDERED: METOPROLOL TARTRATE 5 MG/5 ML INJ IV STA (23:51)
[2020-11-16] MEDS: ASCORBIC ACID 500 MG TABLET PO SCH ×5 (01:00→20:18)
[2020-11-16] MEDS: ATORVASTATIN 40 MG TAB PO SCH ×2 (01:00→20:19)
[2020-11-16 05:08] LABS: Absolute Lymphocytes (CBC) 1.3 K/uL (0.7-4.9); Basophils % 0.1 % (0-1.3); Hematocrit 49.2 % (39.6-49.0); MPV 9.9 fL (7.6-11.3); RBC Red Blood Cell Count 5.79 M/uL (4.33-5.43)
[2020-11-16 05:52] LABS: Albumin 2.8 g/dL (3.4-5.0); Bilirubin Total 0.6 mg/dL (0.2-1.0); Ferritin 4064.4 ng/mL (26-388); Magnesium 2.2 mg/dL (1.8-2.4); Potassium 4.2 mmol/L (3.5-5.1); Protein, Total 7.6 g/dL (6.4-8.2); Thyroid Stimulating Hormone 0.066 uIU/mL (0.360-3.740)
[2020-11-16 05:55] LABS: Urine Appearance CLOUDY (Clear); Urine Bilirubin NEGATIVE (Negative); Urine Blood NEGATIVE (Negative); Urine Color YELLOW (Yellow); Urine Glucose 2+ (Negative); Urine Protein 2+ (Negative); Urine Urobilinogen 0.2 mg/dL (0.2-1.0)
[2020-11-16] MEDS ORDERED: guaiFENesin 100 MG/5 ML UCUP PO PRN (06:02)
[2020-11-16] MEDS ORDERED: D50W 25 GM/50 ML SYRINGE IV PRN (06:04)
[2020-11-16] MEDS ORDERED: GLUCAGON 1 MG/VIAL IM PRN (06:04)
[2020-11-16 06:11] LABS: Urine Microscopic Reflex ORDER UMIC
[2020-11-16 06:20] LABS: Urine Bacteria <20 /HPF (NONE SEEN); Urine Urothelial Cells <5 /HPF (NONE SEEN)
--- NOTE | 2020-11-16 06:46 | P.PN ---
Subjective Date of Service: 11/16/20 Primary Care Provider: retirement doctor Chief Complaint: COVID-19 pneumonia Subjective: No new changes (Feels about the same, very anxious, requiring high levels of oxygen, significantly elevated inflammatory markers. Overnight layla lr was more agitated trying to take off his mask. This morning he is a little bit more calm, seems to understand the need for mask) Review of Systems 10-point ROS is otherwise unremarkable Physical Examination - Vital Signs Temperature: 96.9 F Blood Pressure: 119/94 Pulse: 111 Respirations: 38 Pulse Ox (%): 92 - Studies Laboratory Data (last 24 hrs) 11/15/20 18:09: PT Cancelled, INR Cancelled 11/15/20 18:09: WBC Cancelled, Hgb Cancelled, Hct Cancelled, Plt Count Cancelled 11/15/20 18:09: Sodium 133 L, Potassium 4.5, BUN 41 H, Creatinine 2.21 H, Glucose 399 H, Magnesium 2.2, Total Bilirubin 0.4, AST 80 H, ALT 46, Alkaline Phosphatase 78 11/15/20 17:32: Sodium Cancelled, Potassium Cancelled, BUN Cancelled, Creatinine Cancelled, Glucose Cancelled, Magnesium Cancelled, Total Bilirubin Cancelled, AST Cancelled, ALT Cancelled, Alkaline Phosphatase Cancelled Assessment & Plan Physician Review Additional Text: Physical exam GEN: Alert, anxious appearing HEENT: Normal conjunctiva, sclera anicteric CV: Sinus tachycardia, no edema Pulm: Mildly labored respirations on HFNC ABD: Soft, nontender, nondistended MSK: No joint tenderness Problem List Acute hypoxic respiratory failure secondary to COVID-19 pneumonia complicated with history of COPD Chronic systolic congestive heart failure JONN superimposed on CKD 3 Diabetes type 2 with hyperglycemia Hypertension Hyperlipidemia CAD Anemia of chronic disease GERD Continue steroids, vitamin supplements, baricitinib Pulmonary consulted Wean O2 as tolerated Ativan as needed for anxiety Patient states he is a DO NOT RESUSCITATE, discussed further, and does not want to be intubated Patient states he was vaccinated, received 1 dose of unknown vaccine, approximately 6 months ago Last EF: 35% Nephrology consulted patient's JONN on CKD 3 Insulin sliding scale, resume home insulin dosing, will likely need more to steroid-induced hyperglycemia Continue home antihypertensives, monitor hemoglobin, anemia of chronic disease Code: DNR Dispo: Current high levels of oxygen supplementation, very anxious, anticipate prolonged hospitalization Time Spent Managing Pts Care (In Minutes): 35
[2020-11-16 07:28] LABS: Blood Morphology Comment NOT SEEN (NOT SEEN); Platelet Estimate DECR
[2020-11-16] MEDS ORDERED: FERROUS SULFATE 325 MG TAB PO SCH (09:00)
[2020-11-16] MEDS ORDERED: SPIRONOLACTONE 25 MG TABLET PO SCH (09:00)
[2020-11-16] MEDS: ASPIRIN EC 81 MG TAB PO SCH (09:00)
[2020-11-16] MEDS: ASPIRIN 81 MG CHEWABLE TABLET PO SCH (09:29)
[2020-11-16] MEDS: METHYLPREDNISOLONE 40 MG INJ IV SCH ×2 (09:29→09:30)
[2020-11-16] MEDS: HEPARIN 5000 UNIT/ML 1 ML VIAL SQ SCH ×2 (09:29→20:20)
[2020-11-16] MEDS: FOLIC ACID 1 MG TABLET PO SCH (09:29)
[2020-11-16] MEDS: LACTOBACILLUS/ACIDOPHILUS TAB PO SCH (09:29)
[2020-11-16] MEDS: AMLODIPINE 5 MG TAB PO SCH (09:29)
[2020-11-16] MEDS: METOPROLOL TAR 50 MG TAB PO SCH ×2 (09:30→20:19)
[2020-11-16] MEDS: INSULIN -REGULAR HUMAN 50 UNIT/0.5 ML ML SQ SCH ×4 (09:30→20:58)
[2020-11-16] MEDS: VITAMIN D 1000 UNIT TAB PO SCH (09:40)
[2020-11-16] MEDS: BARICITINIB 2 MG TABLET PO SCH (09:41)
[2020-11-16] MEDS: THIAMINE HCL 100 MG TABLET PO SCH (09:41)
[2020-11-16] MEDS: ZINC SULFATE 220 MG CAP PO SCH (09:58)
[2020-11-16] MEDS: LORazepam 2 MG/ML VIAL IV PRN ×2 (11:32→20:19)
--- NOTE | 2020-11-16 12:37 | P.CNS ---
Date of Consult: 11/16/20 Primary Care Provider: [facility] doctor Chief Complaint: COVID-19 pneumonia History of Present Illness: Patient is 69 years of age with congestive heart failure COPD hypertension smoker presents with worsening shortness of breath diagnosed with coronavirus pneumonia currently on high flow Allergies poison chandana extract Allergy (Intermediate, Verified 10/21/18 04:23) Hives diphenhydramine HCl [From Benadryl] Adverse Reaction (Intermediate, Verified 10/21/18 04:23) Hives Home Medications: Acetaminophen [Tylenol] 2 tab PO Q6HP PRN 11/16/20 Amlodipine Besylate 5 mg PO DAILY 11/16/20 Ascorbic Acid 500 mg PO DAILY 11/16/20 Aspirin 81 mg PO DAILY 11/16/20 Atorvastatin Calcium [Lipitor] 40 mg PO BEDTIME 11/16/20 Azithromycin Tab [Zithromax*] 250 tab PO DAILY 11/16/20 Cholecalciferol (Vitamin D3) [Vitamin D 1000 Iu Tab*] 1,000 tab PO DAILY 11/16/20 Dexamethasone [Decadron] 6 mg PO DAILY 11/16/20 Donepezil HCl [Aricept] 23 mg PO BEDTIME 11/16/20 Dulaglutide [Trulicity] 0.5 mg SQ SEECOM 11/16/20 Dulaglutide [Trulicity] 0.5 ml SQ SEECOM 11/16/20 Ferrous Sulfate [Ferrous Sulfate*] 325 tab PO Q48H 11/16/20 Folic Acid 1,000 mcg PO DAILY 11/16/20 Furosemide [Lasix] 20 mg PO DAILY 11/16/20 Glimepiride [Amaryl] 4 tab PO DAILY 11/16/20 Glucagon,Human Recombinant [Glucagon Emergency Kit] 1 mg IM PRN PRN 11/16/20 Insulin Aspart [Novolog] 8 unit SQ AC 11/16/20 Insulin Glargine,Hum.rec.anlog [Basaglar Kwikpen U-100] 58 units SQ DAILY 11/16/20 Lactobacillus Acidophilus [Acidophilus Lactobacillus] 500 cap PO DAILY 11/16/20 Lisinopril [Zestril] 20 mg PO DAILY 11/16/20 Melatonin 10 mg PO BEDTIME 11/16/20 Metoprolol Tartrate [Lopressor*] 50 mg PO BID 11/16/20 Omeprazole 20 cap PO DAILY 11/16/20 Sitagliptin Phosphate [Januvia] 25 mg PO DAILY 11/16/20 Spironolactone [Aldactone*] 25 mg PO DAILY 11/16/20 Trazodone HCl 200 mg PO BEDTIME 11/16/20 Zinc Sulfate [Zinc Sulfate*] 220 mg PO DAILY 11/16/20 guaiFENesin [Kary-Tussin] 10 ml PO Q6HP PRN 11/16/20 - Past Medical/Surgical History Diabetic: No -: History of prostate cancer -: Hypertension -: History of brain aneurysm requiring surgery -: CHF, systolic dysfunction -: COPD -: Tobacco abuse -: DM 2 -: Coronary disease, stents x3 to LAD/RCA(Feb 2016) -: Anemia of chronic disease -: GERD -: Hyperlipidemia -: hyperlipidemia -: Prostate surgery -: Brain aneurysm surgery -: Toe surgery R. great toe/childhood -: Heart catheterization-3stents LAD/RCA Psychosocial/ Personal History: Patient resides in prison for the last 3 years. - Family History Father Medical History: Cancer Notes: brain cancer Mother Medical History: Cancer Notes: pancreatic cancer Brother Medical History: Cancer Notes: lung cancer - Social History Smoking Status: Current every day smoker Alcohol use: No CD- Drugs: No Caffeine use: Yes Place of Residence: Home Review of Systems General: Weakness Respiratory: Shortness of Breath Physical Examination Temp Pulse Resp BP Pulse Ox 96.9 F 111 H 38 H 119/94 H 92 11/16/20 06:45 11/16/20 06:45 11/16/20 06:45 11/16/20 06:45 11/16/20 06:45 General: Alert, Oriented x3, Cooperative Laboratory Data (last 24 hrs) 11/15/20 18:09: PT Cancelled, INR Cancelled 11/15/20 18:09: WBC Cancelled, Hgb Cancelled, Hct Cancelled, Plt Count Cancelled 11/15/20 18:09: Sodium 133 L, Potassium 4.5, BUN 41 H, Creatinine 2.21 H, Glucose 399 H, Magnesium 2.2, Total Bilirubin 0.4, AST 80 H, ALT 46, Alkaline Phosphatase 78 11/15/20 17:32: Sodium Cancelled, Potassium Cancelled, BUN Cancelled, Creatinine Cancelled, Glucose Cancelled, Magnesium Cancelled, Total Bilirubin Cancelled, AST Cancelled, ALT Cancelled, Alkaline Phosphatase Cancelled - Problems (1) 2019 novel coronavirus-infected pneumonia (NCIP) Current Visit: Yes Status: Acute Plan: Age 69 admitted with coronavirus pneumonia chest x-ray shows severe coronavirus pneumonia patient has chronic renal failure renal function is slightly worse white count is mildly elevated patient is on steroids and Barcitinib no change in therapy vital signs reviewed labs reviewed
[2020-11-16] MEDS ORDERED: INSULIN -REGULAR HUMAN 50 UNIT/0.5 ML ML IV ONE (13:45)
[2020-11-16] MEDS ORDERED: NA CHLORIDE 0.9% 500 ML IV SCH (14:00)
[2020-11-16] MEDS ORDERED: NA CHLORIDE 0.9% 1,000 ML ONE (14:46)
--- NOTE | 2020-11-16 18:25 | CON ---
Date of Consultation: 11/16/2020 Reason For Consultation: Elevated BUN and creatinine, fluid management. History Of Present Illness: This is a pleasant 69-year-old gentleman with significant past medical history of congestive heart failure, COPD, hypertension, aortic stenosis. The patient had chronic kidney disease, baseline creatinine 1.4, GFR of 48 as of October 2020. The patient came to the hospital with COVID pneumonia, shortness of breath, found to have elevation in BUN and creatinine, creatinine 2.2 with GFR of 30. For that reason, we have been consulted. The patient's blood sugar was elevated up to 400. The patient admit taking ibuprofen every week. Over the night, the patient was treated for his COVID. Lisinopril has been discontinued. Kidney function has been improved, creatinine from 2.2 to 1.7. The patient still has hyperglycemia. Past Medical History: 1. Diabetes complicated with neuropathy. 2. Hypertension. 3. Hyperlipidemia. 4. Congestive heart failure. 5. COPD. 6. Chronic kidney disease. Baseline creatinine 1.4, GFR of 48 as of October 2020. 7. Hyperlipidemia. 8. GERD. 9. Aortic stenosis. Past Surgical History: 1. Cardiac cath with PTCA. 2. Toe surgery. 3. Brain aneurysm surgery. 4. Prostatectomy. 5. TURP. Family History: Positive for cancer, hypertension. Social History: Ex-smoker, active alcohol. Denies drug abuse. Allergies: TO DIPHENHYDRAMINE. Home Medications: Include aspirin, lisinopril, ferrous sulfate, folic acid, Lasix 40 daily, metoprolol, pantoprazole, thiamine and prednisone. Review of Systems: Head and Neck: No red eye. No ear pain. GI: No nausea, no vomiting. : No polyuria, no dysuria, no hematuria. 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 Respiratory: Has shortness of breath. Cardiovascular: Has chest tightness. Endocrine: No polydipsia. Skin: No rash. Neuro: Has neuropathy. Musculoskeletal: No joint pain. Physical Examination: Vital Signs: When I saw the patient; blood pressure 145/82, pulse of 110, afebrile. Chest: Crackles bilateral, more prominent on the right side. Heart: S1, S2. Systolic murmur. Abdomen: Soft, nontender. Extremity: Trace edema. Neurological: Alert, oriented x3. No focal. Lab Data: Patient upon admission to the hospital; sodium 133, potassium 4.5, bicarb 23, BUN 41, creatinine 2.2, GFR of 30, blood sugar 399, calcium 8.3, hemoglobin 16.8. Today lab data; sodium 136, potassium 4.2, bicarb 20, BUN 40, creatinine 1.7, GFR of 39, calcium 8.7, magnesium 2.2. BNP 414. TSH 0.06. Urine analysis, rbc of 20. Current Medications: The patient on include: 1. Aspirin. 2. Amlodipine 5 mg. 3. Metoprolol. 4. Spironolactone 25 daily. 5. Folic acid. 6. Zinc sulfate. 7. Pantoprazole. 8. Melatonin. 9. Donepezil. 10. Vitamin C. 11. Thiamine. Assessment And Plan: 1. Acute kidney injury, looked to me more secondary to prerenal, superimposed with PAWEL inhibitor on the recovery phase getting closer to his baseline. I agree with holding lisinopril and Lasix for the time being. I will discontinue the spironolactone and we will monitor the patient closely. I going to go ahead and start the patient on gentle hydration and we will monitor the patient. We will obtain renal ultrasound and we will follow up. 2. Hypertension with the presence of acute kidney injury. Hold Lasix, hold lisinopril. We will follow up. 3. COVID pneumonia as by primary. 4. Hyponatremia secondary to depletional, discontinue Lasix. Time spent examining the patient [id number] placing order discussing with the patient reviewing data discussing the case with all of our subspecialty including hospitalist 65 minutes CRIS Voice ID: [id number] Report ID: [id number] DORIAN
[2020-11-16] MEDS ORDERED: INSULIN GLARGINE 100 UNITS/ML SQ SCH (21:00)
[2020-11-16] MEDS ORDERED: TRAZODONE 50 MG TABLET PO SCH (21:00)
[2020-11-16] MEDS ORDERED: ATORVASTATIN 40 MG TAB PO SCH (21:00)
[2020-11-16] MEDS ORDERED: LORazepam 2 MG/ML VIAL IV ONE (22:38)
[2020-11-16] MEDS ORDERED: LORazepam 2 MG/ML VIAL ONE (22:54)
[2020-11-17] MEDS: METHYLPREDNISOLONE 40 MG INJ IV SCH ×3 (00:55→16:58)
[2020-11-17 04:50] LABS: Absolute Lymphocytes (CBC) 1.2 K/uL (0.7-4.9); Basophils % 0.1 % (0-1.3); Lymphocytes % 8.8 % (15.3-44.8); MPV 9.8 fL (7.6-11.3); RBC Red Blood Cell Count 6.27 M/uL (4.33-5.43)
[2020-11-17 05:35] LABS: Albumin 2.6 g/dL (3.4-5.0); Bilirubin Total 0.6 mg/dL (0.2-1.0); Ferritin 3911.4 ng/mL (26-388); Magnesium 2.7 mg/dL (1.8-2.4); Potassium 4.5 mmol/L (3.5-5.1); Protein, Total 7.8 g/dL (6.4-8.2)
--- NOTE | 2020-11-17 06:14 | P.PN ---
Subjective Date of Service: 11/17/20 Primary Care Provider: longterm doctor Chief Complaint: COVID-19 pneumonia Subjective: Worsening (Patient continues to take his mask off, hypoxic down to the 80s. States he wants to , wants to get all this over with. Asked me to "kill him". I had a discussion with the patient, confirmed that this was not coming from a place of frustration and depression.) Review of Systems 10-point ROS is otherwise unremarkable Physical Examination - Vital Signs Temperature: 98.0 F Blood Pressure: 136/80 Pulse: 107 Respirations: 19 Pulse Ox (%): 85 Assessment & Plan Physician Review Additional Text: Physical exam GEN: Alert, oriented x3, moderate distress HEENT: Normal conjunctiva, sclera anicteric CV: Sinus tachycardia, no edema Pulm: Moderately labored respirations on nasal cannula and nonrebreather ABD: Soft, nontender, nondistended MSK: No joint tenderness Problem List Acute hypoxic respiratory failure secondary to COVID-19 pneumonia complicated with history of COPD Chronic systolic congestive heart failure JONN superimposed on CKD 3 Diabetes type 2 with hyperglycemia Hypertension Hyperlipidemia CAD Anemia of chronic disease GERD Continue steroids, vitamin supplements, baricitinib Pulmonary consulted Wean O2 as tolerated Nephrology consulted patient's JONN on CKD 3 Ativan as needed for anxiety Reviewed CODE STATUS again, patient states he is DO NOT RESUSCITATE, DO NOT INTUBATE under any circumstance Patient expresses that he would like to pursue comfort measures only at this time He expressed understanding that I would mean he would pass away Continue insulin, continue sliding scale Patient unable to swallow his pills this morning, made n.p.o., speech therapy consulted Code: DNR/DNI Dispo: Current high levels of oxygen supplementation, poor prognosis Time Spent Managing Pts Care (In Minutes): 35
[2020-11-17] MEDS ORDERED: PANTOPRAZOLE 40MG TABLET PO SCH (06:30)
[2020-11-17] MEDS: VITAMIN D 1000 UNIT TAB PO SCH ×2 (08:49→09:00)
[2020-11-17] MEDS: ZINC SULFATE 220 MG CAP PO SCH ×2 (08:50→09:00)
[2020-11-17] MEDS: THIAMINE HCL 100 MG TABLET PO SCH ×3 (08:50→09:00)
[2020-11-17] MEDS: AMLODIPINE 5 MG TAB PO SCH ×2 (08:50→09:00)
[2020-11-17] MEDS: ASPIRIN EC 81 MG TAB PO SCH ×2 (08:50→09:00)
[2020-11-17] MEDS: BARICITINIB 2 MG TABLET PO SCH ×2 (08:50→09:00)
[2020-11-17] MEDS: LACTOBACILLUS/ACIDOPHILUS TAB PO SCH ×2 (08:50→09:00)
[2020-11-17] MEDS: ASCORBIC ACID 500 MG TABLET PO SCH ×4 (08:50→16:38)
[2020-11-17] MEDS: HEPARIN 5000 UNIT/ML 1 ML VIAL SQ SCH (08:51)
[2020-11-17] MEDS: METOPROLOL TAR 50 MG TAB PO SCH (08:51)
[2020-11-17] MEDS: INSULIN -REGULAR HUMAN 50 UNIT/0.5 ML ML SQ SCH ×3 (08:51→16:58)
[2020-11-17] MEDS: ASPIRIN 81 MG CHEWABLE TABLET PO SCH (09:00)
[2020-11-17] MEDS: FOLIC ACID 1 MG TABLET PO SCH (09:00)
[2020-11-17] MEDS ORDERED: NA CHLORIDE 0.9% 1,000 ML ONE (09:03)
--- NOTE | 2020-11-17 09:57 | P.PN ---
Subjective Date of Service: 11/17/20 Primary Care Provider: assisted doctor Chief Complaint: COVID-19 pneumonia Subjective: No new changes Physical Examination - Vital Signs Temperature: 98.0 F Blood Pressure: 136/80 Pulse: 107 Respirations: 19 Pulse Ox (%): 85 - Physical Exam General: Other (appears as his stated age) HEENT: Atraumatic, Normocephalic Neck: Supple Respiratory: Other (symmetric chest expansion) Cardiovascular: No rubs, No murmurs Gastrointestinal: Soft and benign Musculoskeletal: No clubbing Urinary: Other (no bladder distention) Assessment And Plan - Plan 1. Acute kidney injury 2/2 prerenal state +/- ATN from prolonged prerenal, superimposed with PAWEL inhibitor use. SCr still rising, also contributed by CRS1 from tachycardic episodes the past 24 hours. hold diuretics and lisinopril. monitor renal panel. 2. Hypertension with the presence of acute kidney injury. Hold Lasix, hold lisinopril. We will follow up. 3. COVID pneumonia as by primary. TTE in October 2018 with LV global hypokinesis. troponin negative. BNP slightly elevated. currently on nonrebreather mask oxygen support. 4. Dysphagia. Management per other services. 5. prognosis. Poor. For transition to hospice today.
[2020-11-17] MEDS: LORazepam 2 MG/ML VIAL IV PRN (10:16)
[2020-11-17] MEDS ORDERED: HYDROMORPHONE HCL 1 MG/ML INJ IV PRN ×2 (10:50→13:32)
[2020-11-17] MEDS ORDERED: METOPROLOL TARTRATE 5 MG/5 ML INJ IV STA (10:50)
[2020-11-17 10:56] VITALS: O2SAT 86
[2020-11-17] MEDS ORDERED: LORazepam 2 MG/ML VIAL IV PRN (13:30)
[2020-11-17 13:54] LABS: UR PROTEIN 285.4 mg/dL (<11.9)
[2020-11-17 16:48] VITALS: BP 136/80; TEMP 98
--- NOTE | 2020-11-17 17:28 | P.DS ---
Admission Date: 11/15/20 Discharge Date: 11/17/20 Primary Care Provider: custodial doctor Disposition: HOSPICE-MEDICAL FACILITY Reason for Admission: COVID-19 pneumonia Consultations: Nephrology Procedures: Problem List Acute hypoxic respiratory failure secondary to COVID-19 pneumonia complicated with history of COPD Chronic systolic congestive heart failure JONN superimposed on CKD 3 Diabetes type 2 with hyperglycemia Hypertension Hyperlipidemia CAD Anemia of chronic disease GERD Brief History of Present Illness: 69-year-old male with history of chronic systolic congestive heart failure, COPD, hypertension, CKD 3, aortic stenosis, [place], tobacco abuse presents emergency [facility] for shortness of breath. Patient reports testing positive for Covid approximately 3 days ago. Patient reports receiving 1 dose of vaccine, patient does not know which one attempting to reach out to care home to obtain this information. Patient is evaluate the [facility] labs are significant for sodium 133 BUN 41 creatinine 2.21 GFR 30 glucose 399 ferritin 3760 C-reactive protein 128 BNP 414, patient currently on 10 L bubbler nasal cannula, chest x-ray demonstrates extensive bilateral pulmonary opacities likely representing COVID-19 infection. ED provider wishes to admit for COVID-19 pneumonia with hypoxia. Hospital Course: Patient was admitted and treated per COVID protocol. He had worsening of his hypoxia. On further discussion, patient stated he was DNR/DNI. Despite anxiolytics and pain medication, patient would continue to take his oxygen mask off and become more hypoxic. On further discussion with the patient, he stated that he did not want to continue with this treatment. He stated he was ready to and would prefer to just be made comfortable. Per patient's wishes, he was transitioned to inpatient hospice. Vital Signs/Physical Exam: Temp Pulse Resp BP Pulse Ox 98.0 F 107 H 19 136/80 85 L 11/17/20 16:48 11/17/20 16:48 11/17/20 16:48 11/17/20 16:48 11/17/20 16:48 General: Alert, Oriented x3, Moderate distress HEENT: Sclerae nonicteric Respiratory: Other (labored respirations on NC/ nonrebreather) Cardiovascular: No edema, Irregular heart rate/rhythm (tachycardia, afib) Gastrointestinal: Soft and benign, Non-distended, No tenderness Musculoskeletal: No tenderness Integumentary: No rashes Neurological: Normal strength at 5/5 x4 extr Laboratory Data at Discharge: WBC 13.90 K/uL (4.3-10.9) H 11/17/20 03:50 Hgb 17.6 g/dL (13.6-17.9) 11/17/20 03:50 Hct 54.0 % (39.6-49.0) H 11/17/20 03:50 Plt Count 158 K/uL (152-406) D 11/17/20 03:50 PT 13.3 SECONDS (9.5-12.5) H 11/15/20 21:55 INR 1.15 11/15/20 21:55 Sodium 142 mmol/L (136-145) 11/17/20 03:50 Potassium 4.5 mmol/L (3.5-5.1) 11/17/20 03:50 BUN 63 mg/dL (7-18) H D 11/17/20 03:50 Creatinine 2.07 mg/dL (0.55-1.3) H 11/17/20 03:50 Glucose 266 mg/dL (74-106) H 11/17/20 03:50 Phosphorus 3.0 mg/dL (2.5-4.9) 11/17/20 03:50 Magnesium 2.7 mg/dL (1.8-2.4) H D 11/17/20 03:50 Total Bilirubin 0.6 mg/dL (0.2-1.0) 11/17/20 03:50 AST 43 U/L (15-37) H 11/17/20 03:50 ALT 37 U/L (12-78) 11/17/20 03:50 Alkaline Phosphatase 69 U/L (45-117) 11/17/20 03:50 Home Medications: Acetaminophen [Tylenol] 2 tab PO Q6HP PRN 11/16/20 Amlodipine Besylate 5 mg PO DAILY 11/16/20 Ascorbic Acid 500 mg PO DAILY 11/16/20 Aspirin 81 mg PO DAILY 11/16/20 Atorvastatin Calcium [Lipitor] 40 mg PO BEDTIME 11/16/20 Azithromycin Tab [Zithromax*] 250 tab PO DAILY 11/16/20 Cholecalciferol (Vitamin D3) [Vitamin D 1000 Iu Tab*] 1,000 tab PO DAILY 11/16/20 Dexamethasone [Decadron] 6 mg PO DAILY 11/16/20 Donepezil HCl [Aricept] 23 mg PO BEDTIME 11/16/20 Dulaglutide [Trulicity] 0.5 mg SQ SEECOM 11/16/20 Dulaglutide [Trulicity] 0.5 ml SQ SEECOM 11/16/20 Ferrous Sulfate [Ferrous Sulfate*] 325 tab PO Q48H 11/16/20 Folic Acid 1,000 mcg PO DAILY 11/16/20 Furosemide [Lasix] 20 mg PO DAILY 11/16/20 Glimepiride [Amaryl] 4 tab PO DAILY 11/16/20 Glucagon,Human Recombinant [Glucagon Emergency Kit] 1 mg IM PRN PRN 11/16/20 Insulin Aspart [Novolog] 8 unit SQ AC 11/16/20 Insulin Glargine,Hum.rec.anlog [Basaglar Kwikpen U-100] 58 units SQ DAILY 11/16/20 Lactobacillus Acidophilus [Acidophilus Lactobacillus] 500 cap PO DAILY 11/16/20 Lisinopril [Zestril] 20 mg PO DAILY 11/16/20 Melatonin 10 mg PO BEDTIME 11/16/20 Metoprolol Tartrate [Lopressor*] 50 mg PO BID 11/16/20 Omeprazole 20 cap PO DAILY 11/16/20 Sitagliptin Phosphate [Januvia] 25 mg PO DAILY 11/16/20 Spironolactone [Aldactone*] 25 mg PO DAILY 11/16/20 Trazodone HCl 200 mg PO BEDTIME 11/16/20 Zinc Sulfate [Zinc Sulfate*] 220 mg PO DAILY 11/16/20 guaiFENesin [Kary-Tussin] 10 ml PO Q6HP PRN 11/16/20 Followup: Unknown,U [Primary Care Provider] - Time spent managing pt's care (in minutes): 60
== END 2020-11-17 17:00 | disposition hospice, inpatient (51) | DRG 177 ==
LOC: ER 17:19 → ERHOLD 20:01 → 4TH 22:00
PROVIDERS: ADMIT Hospitalist; ATTEND Hospitalist
DX: U07.1 COVID-19 (principal); J12.82 Pneumonia due to coronavirus disease 2019; J96.01 Acute respiratory failure with hypoxia; I13.0 Hypertensive heart and chronic kidney disease with heart failure and stage 1 through stage 4 chronic kidney disease, or unspecified chronic kidney disease; I50.22 Chronic systolic (congestive) heart failure; N17.9 Acute kidney failure, unspecified; J44.0 Chronic obstructive pulmonary disease with (acute) lower respiratory infection; E87.1 Hypo-osmolality and hyponatremia; N18.30 Chronic kidney disease, stage 3 unspecified; E11.22 Type 2 diabetes mellitus with diabetic chronic kidney disease; E11.65 Type 2 diabetes mellitus with hyperglycemia; E78.5 Hyperlipidemia, unspecified; I25.10 Atherosclerotic heart disease of native coronary artery without angina pectoris; D63.8 Anemia in other chronic diseases classified elsewhere; K21.9 Gastro-esophageal reflux disease without esophagitis; E11.40 Type 2 diabetes mellitus with diabetic neuropathy, unspecified; I35.0 Nonrheumatic aortic (valve) stenosis; F17.210 Nicotine dependence, cigarettes, uncomplicated; Z66 Do not resuscitate; Z85.46 Personal history of malignant neoplasm of prostate
CPT/HCPCS: 36415; 71045; 80048; 80053; 80069; 80076; 81003; 81015; 82570; 82728; 82947; 83036; 83735; 83880; 84145; 84156; 84439; 84443; 84484; 85025; 85379; 85610; 86140; 87040; 87804; 93005; 94002; 94003; 94760; 96374; 96375; 99285; J1170; J1644; J1815; J1940; J2920; J2930; J7030; U0003

== ENCOUNTER 2020-11-17 17:14 | Inpatient (IN) | payer OTHER ==
[2020-11-17] MEDS ORDERED: BISACODYL 10 MG RECTAL SUPP PR PRN (17:26)
[2020-11-17] MEDS ORDERED: ONDANSETRON 4 MG/2 ML VIAL IV PRN (17:26)
[2020-11-17] MEDS ORDERED: ACETAMINOPHEN 650MG/RECT SUPP PR PRN (17:27)
[2020-11-17] MEDS ORDERED: SCOPOLAMINE HYDROBROMIDE PATCH TD SCH (18:00)
[2020-11-17 18:40] VITALS: BMI 29.7
[2020-11-17] MEDS: LORazepam 2 MG/ML VIAL IV PRN (20:52)
[2020-11-17] MEDS: MORPHINE 2 MG/ML SYR IV PRN (22:36)
[2020-11-18] MEDS: LORazepam 2 MG/ML VIAL IV PRN ×5 (00:03→20:35)
[2020-11-18] MEDS: MORPHINE 2 MG/ML SYR IV PRN ×5 (04:06→22:05)
[2020-11-18 20:45] VITALS: O2SAT 88
[2020-11-18 23:43] VITALS: BP 148/79; TEMP 96.9
[2020-11-19] MEDS: LORazepam 2 MG/ML VIAL IV PRN (00:18)
[2020-11-19] MEDS: MORPHINE 2 MG/ML SYR IV PRN (02:15)
== END 2020-11-19 04:25 | disposition expired | DRG 177 ==
LOC: 4TH 17:14
PROVIDERS: ADMIT Internal Medicine Hematology & Oncology; ATTEND Internal Medicine Hematology & Oncology
DX: U07.1 COVID-19 (principal); J12.82 Pneumonia due to coronavirus disease 2019; Z51.5 Encounter for palliative care
CPT/HCPCS: 93005; 94003; 94760; J2270